=== PATIENT | female | born 1975 | race American Indian/Alaskan Native ===

== ENCOUNTER 2016-09-29 02:16 | Emergency (ER) | payer OTHER ==
[~2016-09-29] VITALS: Ht 175.3 cm; Wt 143.8 kg
[~2016-09-29 02:16] MED LIST: ABILIFY5 MG; ADVAIR 250-501 EACH IH; ALBUTEROL SULF8.5 GM INH; ALBUTEROL2.5 MG/3 M INH; ASPIRIN EC81 MG PO; ATIVAN1 MG PO; BACTRIM DS TAB1 EACH PO; CEFPODOXIME PR200 MG PO; CHLORDIAZEPOXID25 MG PO; CIPROFLOXACIN500 MG PO; CITALOPRAM HBR20 MG PO; CYCLOBENZAPRINE10 MG PO; D-20002000 UNIT PO; DIALYVITE V5000 UNIT PO; DIPHENHYDRAMINE25 M1 PO; DOCUSATE SODIU100 MG PO; DOXYCYCLINE HY100 MG PO; DULCOLAX STOOL100 MG PO; DULERA 200 MCG/13 GM IH; DULERA 200 MCG/13 GM INH; FERROUS SU220 MG/52; FLEXERIL10 MG PO; FLUTICASONE PRO16 GM NS; GLIPIZIDE XL5 MG PO; GLUCAGON HCL1 MG; HYDROCODON-ACE1 EA10 PO; HYDROXYZINE PAM25 MG PO; IBUPROFEN600 MG PO; IBUPROFEN800 MG PO; JANUVIA100 MG PO; KEFLEX500 MG PO; LANTUS100 UNITS/ SUB-Q; LEVAQUIN500 MG PO; LEVOFLOXACIN750 MG PO; LEVOTHYROXINE25 MCG PO; LIPITOR20 MG GT; LIPITOR20 MG PO; LISINOPRIL-HCT1 EACH PO; LISINOPRIL20 MG PO; MAPAP325 MG PO; MAPAP500 M1 PO; METHOCARBAMOL500 MG PO; NAPROXEN250 MG PO; NORCO 10-325 T1 EACH PO; NORCO 5-325 TA1 EACH PO; PEPCID20 MG PO; PERCOCET 5-3251 EACH PO; PERFOROMIS20 MCG/2 M INH; PREDNISONE20 MG PO; PRILOSEC20 MG PO; PRINIVIL10 MG PO; PROMETHAZINE-COD5 ML PO; PROTONIX40 MG PO; PROVENTIL HFA6.7 GM INH; RANITIDINE HCL150 M1 PO; RANITIDINE HCL150 MG PO; REGLAN10 MG PO; SINGULAIR10 MG PO; SUDOGEST30 MG PO; TRAMADOL HCL50 MG PO; TYLENOL325 MG PO; VITAMIN C500 MG PO; XANAX0.5 MG PO; ZOFRAN4 MG PO
[2016-09-29] MEDS ORDERED: ZOFRAN ODT4 MG PO (05:00)
[2016-09-29] MEDS ORDERED: PROTONIX40 MG PO (05:00)
== END 2016-09-29 05:43 | disposition home or self-care (01) ==
LOC: ED 02:16
DX: K29.21 Alcoholic gastritis with bleeding (principal); K64.4 Residual hemorrhoidal skin tags; I10 Essential (primary) hypertension; E11.9 Type 2 diabetes mellitus without complications; E78.5 Hyperlipidemia, unspecified; J45.909 Unspecified asthma, uncomplicated; J44.9 Chronic obstructive pulmonary disease, unspecified; Z90.49 Acquired absence of other specified parts of digestive tract; Z87.01 Personal history of pneumonia (recurrent); Z79.899 Other long term (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; Z79.4 Long term (current) use of insulin
CPT/HCPCS: 80053; 81001; 84703; 85025; 85610; 85730; 86850; 86900; 86901; 87077; 87088; 87186; 96365; 96375; 99283; G0480; J1630; J2405; J2550; J2765; J3411; J7030

== ENCOUNTER 2017-01-27 17:31 | Inpatient (IN) | payer OTHER ==
[~2017-01-27] VITALS: Ht 175.3 cm; Wt 143.8 kg
[~2017-01-27 17:31] MED LIST changes: +ZOFRAN ODT4 MG PO
--- NOTE | 2017-01-28 06:31 | HP ---
[facility] [address] [place], [place] [address] Signed ADMISSION DATE: 01/27/2017 REASON FOR ADMISSION: Pancreatitis. HISTORY: This morbidly obese (BMI 46.8) [place] woman, presented to the emergency room where she was somewhat evaluated by Dr. Chavis with complaints of anxiety, nausea and vomiting x4, and epigastric and right subcostal pain. She denied any shortness of breath or other similar symptoms. She had not been feeling well for the past week or so. In fact, she has not been feeling well for two months actually. She had been unable to eat much and had been vomiting 3 to 4 times a day in the past several weeks. 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 She came into the emergency room for headache as well as red eye related to vomiting. Her care was transferred to Dr. Corral and a gallbladder ultrasound had been performed, which showed possibly small gallstones, though limited ultrasound imaging was noted due to her extreme body habitus. She was clearly noted to have elevated amylase of 360 with a normal lipase. Her alkaline phosphatase was slightly elevated to 163, AST 16, ALT 26. Glucose was 119, CO2 of 17, creatinine 0.84. Urinalysis showed blood of 50 with 10 white cells per high-power field, negative rbc's, 2+ bacteria was noted. Her CBC showed a white count of 7.5, hematocrit 29.5, and platelets 84,000. Brief review of her medical record shows a long-standing history of alcoholism. Although she was initially recorded as drinking alcohol "occasionally," it turns out she drinks five 40-ounce beers a day. She is well known to have established chronic alcoholism. Additionally, prior admissions have included alcohol withdrawal syndrome, pneumonia, and imaging studies in the past, specifically abdominal and pelvis CT in February 2015 confirming cirrhotic liver, hypertrophy of left lateral segment of the liver and caudate lobe, splenomegaly and normal gallbladder and biliary tree. Though she was admitted as having "gallstone pancreatitis," it is far more likely she simply has alcohol-related pancreatitis in addition to her other medical problems. REVIEW OF SYSTEMS: She mostly complains of upper abdominal pain in her central abdomen. She no longer complaints of headache. She has no particular back pain at this time. She feels thirsty. PHYSICAL EXAMINATION: GENERAL: A very enormous Ang[place] woman, who is uncomfortable in appearance. Mucous membranes are slightly dry. She is alert and oriented without sign of delirium (yet). NECK: Shows no thyromegaly. Electronically Signed By: RAQUEL CARDENAS MD 01/28/17 0631 PATIENT NAME: KAMILAH IBARRA HISTORY AND PHYSICAL DATE OF : 75 PHYSICIAN: RAQUEL CARDENAS MD REPORT #: [id number] REPORT IS CONFIDENTIAL AND NOT TO BE RELEASED WITHOUT AUTHORIZATION [address] [address] Signed CHEST: Shows regular heart rate without murmur. Chest is relatively clear. ABDOMEN: Massively obese. There is mild central abdominal tenderness. There is no perceivable ascites, though limitation based on body habitus is acknowledged. EXTREMITIES: Show no clubbing, cyanosis, edema, or petechiae. LABORATORY DATA: Lab studies showed white count 7.5, hematocrit 29.5, platelets 84,000. Chem profile as previously noted, bicarb was 17, glucose 119, AST 60, ALT 26, alkaline phosphatase 163, bilirubin 1.2, amylase 361, lipase 62. ASSESSMENT: Although the patient was perceived as having gallstone pancreatitis, it is far more likely she has alcohol-related pancreatitis given her extreme alcohol intake and prior history. The possibility of gallstone pancreatitis remains however given the possibility of gallstones variably noted on the ultrasound. She is at increased risk of alcohol withdrawal syndrome based on her extreme alcohol use on a daily basis. She would be an unlikely candidate for cholecystectomy on the basis of her thrombocytopenia, cirrhotic liver, splenomegaly, and extreme morbid obesity. Nevertheless, she does need to be admitted to the hospital for fluid resuscitation and parenteral pain control and in this case as well alcohol withdrawal prophylaxis. I will consult the hospitalist for assistance in some of these measures as well. Note is made of her current medications, which include Tylenol, albuterol inhaler, iron supplementation, fluticasone spray, and insulin use; therefore, notably confirming additionally diabetes. MD AMBER Chandra/MONIQUEL /[id number] Electronically Signed By: RAQUEL CARDENAS MD 01/28/17 0631 PATIENT NAME: KAMILAH IBARRA HISTORY AND PHYSICAL DATE OF : 75 PHYSICIAN: RAQUEL CARDENAS MD REPORT #: [id number] REPORT IS CONFIDENTIAL AND NOT TO BE RELEASED WITHOUT AUTHORIZATION [place] [address] Signed cc: DO Julita Kumari PA Electronically Signed By: RAQUEL CARDENAS MD 01/28/17 0631 PATIENT NAME: KAMILAH IBARRA HISTORY AND PHYSICAL DATE OF : 75 PHYSICIAN: RAQUEL CARDENAS MD REPORT #: [id number] REPORT IS CONFIDENTIAL AND NOT TO BE RELEASED WITHOUT AUTHORIZATION
[2017-02-01] MEDS ORDERED: HYDROXYZINE PAM25 MG PO (09:55)
[2017-02-01] MEDS ORDERED: FAMOTIDINE20 MG PO (09:56)
[2017-02-01] MEDS ORDERED: LEVOFLOXACIN500 MG PO (10:00)
[2017-02-01] MEDS ORDERED: PRINIVIL10 MG PO (10:00)
--- NOTE | 2017-02-02 09:32 | DS ---
[facility] [address] [place], [place] [address] Signed ADMISSION DATE: 01/27/2017 DISCHARGE DATE: 02/01/2017 REASON FOR ADMISSION: This morbidly obese, BMI 46.8 Macanese woman presented to the emergency room with complaints of anxiety, nausea, and vomiting x4, epigastric and right subcostal pain. She denied any shortness of breath or other symptoms. She had been feeling unwell for the past week or so. She had not really been feeling perfectly well for at least two months. It was ultimately noted she has chronic alcoholism, drinking five 40-ounce beers a day. 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 She went to the emergency room because of headache as well as a red eye related to progressive vomiting. She was initially evaluated by Dr. Chavis to care, ultimately seen by Dr. Corral. A gallbladder ultrasound was performed following an evaluation showing slightly elevated alkaline phosphatase to 163, an AST of 16, ALT of 26 with an amylase of 360. A gallbladder ultrasound was performed, which was technically challenging on the basis of her obesity of greater than 300 pounds, but did not show stones, but possibly signs of sludge. There is no thickened gallbladder wall. She has chronic anemia and hematocrit was noted to be 29.5. A urinalysis did show findings suggestive of urinary tract infection, blood of 50 with white cells 10 per high-power field, 2+ bacteria. Her white count was 7.5, platelets 84,000. Review of her medical record shows long-standing history of alcoholism, prior history of admission for alcohol withdrawal syndrome, CT scan evidence of splenomegaly, and cirrhosis of the liver with likely portal hypertension and secondary thrombocytopenia. She was admitted for further evaluation and care on the basis of her pancreatitis, thought possibly related to biliary disease. PERTINENT PHYSICAL EXAMINATION: GENERAL: Enormous Macanese woman, uncomfortable in appearance. HEENT: Mucous membranes are slightly dry. She is alert and oriented without sign of delirium. NECK: Shows no thyromegaly. HEART: Regular without murmur. CHEST: Relatively clear. ABDOMEN: Massively obese. There is central abdominal tenderness. No perceivable ascites. Electronically Signed By: RAQUEL CARDENAS MD 02/02/17 0932 PATIENT NAME: KAMILAH IBARRA DISCHARGE SUMMARY DATE OF : 75 PHYSICIAN: RAQUEL CARDENAS MD REPORT #: [id number] REPORT IS CONFIDENTIAL AND NOT TO BE RELEASED WITHOUT AUTHORIZATION [facility] [address] [place], [place] [address] Signed EXTREMITIES: Show no clubbing, cyanosis, or edema. LABORATORY STUDIES: Once again showed a white count of 7.5, hematocrit 29.5, and platelets 84,000. Bicarb was 17, glucose 119, AST 6, ALT 26, alkaline phosphatase 163, bilirubin 1.2, amylase 361, and lipase 62. HOSPITAL COURSE: I agreed to admit her on the original provisional diagnosis of gallstone pancreatitis. At that time, it was not known to the emergency room physicians, who had evaluated her that she does have a long-standing chronic alcoholism, cirrhosis of the liver, splenomegaly, and the consideration for alcohol-related pancreatitis was therefore not made. Once recognized, hospitalist consult was undertaken in part to assist in diabetes management and recommendations for an alcohol withdrawal prophylaxis. The patient was troubled markedly by her headache and considerable amount of anxiety. She was treated with Ativan intravenously and given bowel rest, intravenous antibiotics, and IV fluid resuscitation. She had much improvement right away. 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 Her urinary evaluation did confirm E. coli urinary tract infection and she was ultimately converted to Levaquin antibiotic in treatment for that. Ativan was given for alcohol withdrawal prophylaxis and anxiety was tapered off as she was somewhat somnolent, but of course did not have alcohol withdrawal symptoms either. She was ultimately transitioned to hydroxyzine as an anxiolytic. It is considered likely by Dr. Perdomo that her drinking is a self-medication for her significant anxiety issues. Indeed, she has been evaluated at [facility] for this in the past. She was begun on a liquid diet and advanced to a low-fat solid diet once she was noted to have no clinical evidence of pancreatitis and liver enzymes and amylase returning to normal. Close review of her ultrasound did not confirm stones in any way and question of gallbladder sludge, though a potential cause of pancreatitis was considered unlikely. More likely, her pancreatitis was related to her severe and ongoing chronic alcohol use. By time of discharge, she is anticipating to return home with her sister, who lives in Electronically Signed By: RAQUEL CARDENAS MD 02/02/17 0932 PATIENT NAME: KAMILAH IBARRA DISCHARGE SUMMARY DATE OF : 75 PHYSICIAN: RAQUEL CARDENAS MD REPORT #: [id number] REPORT IS CONFIDENTIAL AND NOT TO BE RELEASED WITHOUT AUTHORIZATION [address] [address] Signed [place]. Her sister is four months into complete sobriety. She has investigated the possibility of inpatient alcohol with rehab program, which is available through the [facility]. I understand it is a 21-day program. She is planning to contact her primary provider, WILLIAM Gonzalez, [facility] to become enrolled in this. As regards to her diet, I have recommended a low-fat diet for the time being. She should absolutely have no alcohol. I do not expect a likelihood of alcohol withdrawal syndrome. She needs hydroxyzine to diminish her anxiety issues that lead to her drinking of alcohol. We are mindful of the high potential for benzodiazepine dependency if a benzodiazepine-based outpatient regimen were to be set up at this time. As regards to follow up, she will see Julita Cabral as described. I am available to her should the need arise, though I would not expect need for surgical intervention under the circumstances of her pancreatitis, which is more likely related to alcohol abuse than a biliary source after all. DISCHARGE DIAGNOSES: 1. Pancreatitis, probably alcohol related. 2. Chronic alcoholism (six 40-ounce beers daily). 3. Morbid obesity. 4. Documented cirrhosis of liver without ascites and associated splenomegaly with resultant thrombocytopenia. 5. Diabetes mellitus. 6. Concurrent urinary tract infection (undergoing treatment). 7. Uncontrolled anxiety disorder. MD AMBER Chandra/IESHA /[id number] Electronically Signed By: RAQUEL CARDENAS MD 02/02/17 0932 PATIENT NAME: KAMILAH IBARRA DISCHARGE SUMMARY DATE OF : 75 PHYSICIAN: RAQUEL CARDENAS MD REPORT #: [id number] REPORT IS CONFIDENTIAL AND NOT TO BE RELEASED WITHOUT AUTHORIZATION [facility] [address] [place] [id number] Signed cc: MD Julita Gillespie PA Lohith Veerappa Reddy, MD James Alan Morrow, Electronically Signed By: RAQUEL CARDENAS MD 02/02/17 0932 PATIENT NAME: KAMILAH IBARRA DISCHARGE SUMMARY DATE OF : 75 PHYSICIAN: RAQUEL CARDENAS MD REPORT #: [id number] REPORT IS CONFIDENTIAL AND NOT TO BE RELEASED WITHOUT AUTHORIZATION
== END 2017-02-01 12:05 | disposition home or self-care (01) | DRG 432 ==
LOC: ED 17:31 → MS 20:25 → ED 20:25 → MS 02-01 12:05
PROVIDERS: ADMIT Surgery
DX: K70.30 Alcoholic cirrhosis of liver without ascites (principal); K85.10 Biliary acute pancreatitis without necrosis or infection; F10.239 Alcohol dependence with withdrawal, unspecified; Z68.42 Body mass index [BMI] 45.0-49.9, adult; N39.0 Urinary tract infection, site not specified; K76.0 Fatty (change of) liver, not elsewhere classified; F41.8 Other specified anxiety disorders; E11.43 Type 2 diabetes mellitus with diabetic autonomic (poly)neuropathy; K31.84 Gastroparesis; Z79.4 Long term (current) use of insulin; J44.9 Chronic obstructive pulmonary disease, unspecified; I10 Essential (primary) hypertension; E66.01 Morbid (severe) obesity due to excess calories
CPT/HCPCS: 36415; 71020; 76705; 80053; 80076; 81001; 82150; 82247; 82465; 82977; 83615; 83690; 84100; 84478; 84550; 84703; 85025; 87077; 87088; 87186; 90662; 94640; 94762; 96361; 96374; 96375; 96376; 99285; G0008; G0480; J0690; J1170; J2060; J2405; J7030; J7120; Q0177

== ENCOUNTER 2017-02-07 19:25 | Emergency (ER) | payer OTHER ==
[~2017-02-07] VITALS: Ht 175.3 cm; Wt 143.8 kg
[~2017-02-07 19:25] MED LIST changes: +FAMOTIDINE20 MG PO; +LEVOFLOXACIN500 MG PO
[2017-02-07] MEDS ORDERED: ATIVAN1 MG PO (21:58)
[2017-02-07] MEDS ORDERED: OMEPRAZOLE20 MG PO (21:58)
[2017-02-07] MEDS ORDERED: ZOFRAN ODT4 MG PO (21:58)
== END 2017-02-07 22:28 | disposition home or self-care (01) ==
LOC: ED 19:25
DX: K29.20 Alcoholic gastritis without bleeding (principal); E11.9 Type 2 diabetes mellitus without complications; I10 Essential (primary) hypertension; E78.5 Hyperlipidemia, unspecified; J44.9 Chronic obstructive pulmonary disease, unspecified; Z87.01 Personal history of pneumonia (recurrent); Z90.89 Acquired absence of other organs; Z90.49 Acquired absence of other specified parts of digestive tract; Z79.899 Other long term (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; Z79.4 Long term (current) use of insulin; Y90.8 Blood alcohol level of 240 mg/100 ml or more
CPT/HCPCS: 80053; 81001; 82150; 83690; 85025; 94640; 96361; 96374; 96375; 99284; G0480; J2270; J2405; J7030

== ENCOUNTER 2017-02-18 15:12 | Emergency (ER) | payer OTHER ==
[~2017-02-18] VITALS: Ht 175.3 cm; Wt 143.8 kg
[~2017-02-18 15:12] MED LIST changes: +OMEPRAZOLE20 MG PO
[2017-02-18] MEDS ORDERED: ZOFRAN ODT4 MG PO (18:14)
== END 2017-02-18 18:29 | disposition home or self-care (01) ==
LOC: ED 15:12
DX: R10.84 Generalized abdominal pain (principal); G89.29 Other chronic pain; S20.211A Contusion of right front wall of thorax, initial encounter; E11.9 Type 2 diabetes mellitus without complications; I10 Essential (primary) hypertension; E78.5 Hyperlipidemia, unspecified; J44.9 Chronic obstructive pulmonary disease, unspecified; D64.9 Anemia, unspecified; Z87.01 Personal history of pneumonia (recurrent); Z90.49 Acquired absence of other specified parts of digestive tract; Z79.899 Other long term (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; Z79.4 Long term (current) use of insulin; W18.30XA Fall on same level, unspecified, initial encounter
CPT/HCPCS: 71020; 80053; 82150; 83690; 85025; 96374; 96375; 99283; G0480; J1885; J2405

== ENCOUNTER 2017-05-04 18:15 | Inpatient (IN) | payer OTHER ==
[~2017-05-04] VITALS: Ht 175.3 cm; Wt 137.3 kg
[~2017-05-04 18:15] MED LIST changes: -FERROUS SU220 MG/52; +FERROUS SU220 MG/52 PO
[2017-05-05] MEDS ORDERED: PANTOPRAZOLE SO40 MG PO (15:23)
[2017-05-05] MEDS ORDERED: VENTOLIN HFA18 GM INH (15:26)
[2017-05-05] MEDS ORDERED: FAMOTIDINE20 MG PO (15:33)
[2017-05-05] MEDS ORDERED: TIZANIDINE HCL4 MG PO (15:34)
--- NOTE | 2017-05-05 22:31 | EKG ---
[facility] [address] [facility] [place] [address] Signed Sinus tachycardia Anterior infarct (cited on or before 01-FEB-2016) Abnormal ECG When compared with ECG of 12-AUG-2016 00:08, No significant change was found Confirmed by ANTONIA METCALF MD ([id number]) on 05/05/2017 10:31:29 PM Electronically Signed By: ANTONIA METCALF MD 05/05/17 223 PATIENT NAME: KAMILAH IBARRA Electrocardiogram DATE OF : 75 PHYSICIAN: ANTONIA METCALF MD REPORT #: [id number] REPORT IS CONFIDENTIAL AND NOT TO BE RELEASED WITHOUT AUTHORIZATION
[2017-05-07] MEDS ORDERED: BACTRIM DS TAB1 EACH PO (13:12)
[2017-05-07] MEDS ORDERED: ONDANSETRON HCL4 MG PO (13:14)
[2017-05-07] MEDS ORDERED: OXYCODONE HCL5 MG PO ×2 (13:16→13:32)
== END 2017-05-07 15:00 | disposition home or self-care (01) | DRG 690 ==
LOC: ED 18:15 → MS 18:16
PROVIDERS: ADMIT Internal Medicine
DX: N10 Acute pyelonephritis (principal); B96.20 Unspecified Escherichia coli [E. coli] as the cause of diseases classified elsewhere; E87.6 Hypokalemia; I10 Essential (primary) hypertension; K70.30 Alcoholic cirrhosis of liver without ascites; D73.1 Hypersplenism; D64.9 Anemia, unspecified; D69.6 Thrombocytopenia, unspecified; F41.8 Other specified anxiety disorders; E11.9 Type 2 diabetes mellitus without complications; E78.5 Hyperlipidemia, unspecified; J44.9 Chronic obstructive pulmonary disease, unspecified; F10.20 Alcohol dependence, uncomplicated; Z79.84 Long term (current) use of oral hypoglycemic drugs; E66.01 Morbid (severe) obesity due to excess calories; G47.33 Obstructive sleep apnea (adult) (pediatric); Z91.19 Patient's noncompliance with other medical treatment and regimen
CPT/HCPCS: 36415; 71045; 74177; 80048; 80053; 81001; 83605; 83735; 84703; 85025; 87040; 87077; 87088; 87186; 87502; 93005; 93010; 94640; 94760; 96361; 96374; 96375; 96376; 99285; G0378; J0696; J2270; J2405; J2550; J3475; J7030; J7120; Q0177; Q9967

== ENCOUNTER 2017-05-29 15:41 | Emergency (ER) | payer OTHER ==
[~2017-05-29] VITALS: Ht 175.3 cm; Wt 136.1 kg
[~2017-05-29 15:41] MED LIST changes: +ONDANSETRON HCL4 MG PO; +OXYCODONE HCL5 MG PO; +PANTOPRAZOLE SO40 MG PO; +TIZANIDINE HCL4 MG PO; +VENTOLIN HFA18 GM INH
== END 2017-05-29 23:05 | disposition home or self-care (01) ==
LOC: ED 15:41
PROC: 0T9B70Z Drainage of Bladder with Drainage Device, Via Natural or Artificial Opening (ICD-10-PCS; principal; 2017-05-29)
DX: E86.0 Dehydration (principal); R10.9 Unspecified abdominal pain; F10.20 Alcohol dependence, uncomplicated; E11.9 Type 2 diabetes mellitus without complications; I10 Essential (primary) hypertension; J45.909 Unspecified asthma, uncomplicated; Z79.899 Other long term (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
CPT/HCPCS: 51701; 74177; 80053; 81001; 83605; 83690; 85025; 96374; 96375; 96376; 99284; J1200; J2060; J2270; J2405; J2765; J7030; Q9967

== ENCOUNTER 2017-11-28 05:02 | Emergency (ER) | payer OTHER ==
[~2017-11-28] VITALS: Ht 175.3 cm; Wt 139.2 kg
--- OUTSIDE RECORDS SUMMARY | ~2017-11-28 | XMS | Clinical Summary ---
Demographics + + + | Address | [address] | | | [place] [address] | + + + | Home Phone | | + + + | Preferred Language | Unknown | + + + | Marital Status | Single | + + + | Buddhism Affiliation | Unknown | + + + | Race | Unknown | + + + | Ethnic Group | Unknown | + + + Author + + + | Author | [facility] | | | and [place] | + + + | Organization | [facility] | | | and [place] | [...] Team Providers + +------+ + | Care Cake Former Name | Role | Phone | + +------+ + | Julita Cabrla PA-C | PP | | + +------+ [...] + + + | BMI 50.0-59.9, adult ([facility]) | 04/17/2015 | + + + | Nausea and vomiting | 04/16/2015 | + + + | Low hemoglobin | 04/16/2015 | + + + | Aspiration pneumonia ([facility]) | 04/16/2015 | + + [...] | [employer] | [employer] | [id number] | Medica | [phone] | | | [...] | | deo/Marcial | | 1975 | [phone] | [place] [address] | | | bryant | | | [phone] | | + +--------+ +--------+ + +
--- OUTSIDE RECORDS SUMMARY | ~2017-11-28 | XMS | Clinical Summary ---
Demographics + + + | Address | [address] | | | [place] [address] | + + + | Home Phone | | + + + | Preferred Language | Unknown | + + + | Marital Status | Single | + + + | Faith Affiliation | Unknown | + + + | Race | Unknown | + + + | Ethnic Group | Unknown | + + + Author + + + | Author | [facility] | | | and [place] | + + + | Organization | [facility] | | | and [place] | [...] Team Providers + +------+ + | Care Editor & Co Founder Name | Role | Phone | + [...] + + + | BMI 50.0-59.9, adult ([facility]) | 04/17/2015 | + + + | Nausea and vomiting | 04/16/2015 | + + + | Low hemoglobin | 04/16/2015 | + + + | Aspiration pneumonia ([facility]) | 04/16/2015 | + + + Family [...] | [employer] | [employer] | [id number] | Medica | [phone] | | | [...] | | deo/Marcial | | 1975 | [phone] | [place] [address] | | | bryant | | | [phone] | | + +--------+ +--------+ + +
[~2017-11-28 05:02] MED LIST changes: +AMOXICILLIN500 MG PO; +PAXIL20 MG PO
--- OUTSIDE RECORDS SUMMARY | 2017-11-28 05:06 | XMS ---
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 Care History Substance Use/Overdose 10/01/2016 [facility] ENCOURAGE PATIENT TO PURSUE ALCOHOL ABSTINENCE PROGRAM. Medical/Surgical 10/01/2016 [facility] HX: DIABETES, HTN, HYPERLIPIDEMIA, RECTAL BLEEDING, ASTHMA, COPD, PNEUMONIA, ANEMIA SURGICAL HX: TONSILS, COLONOSCOPY, CYST REMOVAL UNDER ARMJAS E.D. VISIT COUNT (12 MO.) 7 [facility] TOTAL 7 NOTE: Visits indicate total known visits. ED/UCC VISIT TRACKING (12 MO.) 11/28/2017 05:02 [facility] TYPE: Emergency COMPLAINT: - R EYE INJURY 10/09/2017 11:24 [facility] TYPE: Emergency COMPLAINT: - ABNORMAL LABS DIAGNOSES: - Other shelter (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 - Chronic sinusitis, unspecified - Iron deficiency anemia, unspecified - Unspecified asthma, uncomplicated - Hyperlipidemia, unspecified - Type 2 diabetes mellitus without complications - Essential (primary) hypertension - Anemia, unspecified 05/29/2017 15:41 [facility] TYPE: Emergency COMPLAINT: - FLU LIKE SYMPTOMS DIAGNOSES: - Other shelter (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 - Dehydration - Unspecified abdominal pain - Unspecified asthma, uncomplicated - Type 2 diabetes mellitus without complications - Alcohol dependence, uncomplicated - Essential (primary) hypertension 05/04/2017 18:15 [facility] TYPE: Emergency COMPLAINT: - FLU SYMPTOMS 02/18/2017 15:12 [facility] TYPE: Emergency COMPLAINT: - ABD PAIN DIAGNOSES: - 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 - Other chronic pain - Generalized abdominal pain - Contusion of right front wall of thorax, initial encounter - Fall on same level, unspecified, initial encounter - Anemia, unspecified - Personal history of pneumonia (recurrent) - Acquired absence of other specified parts of digestive tract - 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 - Hyperlipidemia, unspecified - Chronic obstructive pulmonary disease, unspecified - Essential (primary) hypertension - Type 2 diabetes mellitus without complications 02/07/2017 19:26 [facility] TYPE: Emergency COMPLAINT: - ABDOMINAL PAIN DIAGNOSES: - 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 - Essential (primary) hypertension - Acquired absence of other specified parts of digestive tract - Upper abdominal pain, unspecified - Chronic obstructive pulmonary disease, unspecified - Acquired absence of other organs - Blood alcohol level of 240 mg/100 ml or more - Personal history of pneumonia (recurrent) - group home (current) use of insulin - Alcoholic gastritis without bleeding - Hyperlipidemia, unspecified - Type 2 diabetes mellitus without complications 01/27/2017 17:31 [facility] TYPE: Emergency COMPLAINT: - NAUSEA,VOMITING INPATIENT VISIT TRACKING (12 MO.) No inpatient visits to display in this time frame [email or web address]
[2017-11-28] MEDS ORDERED: OMEPRAZOLE20 MG PO (05:39)
== END 2017-11-28 05:57 | disposition home or self-care (01) ==
LOC: ED 05:02
DX: D18.09 Hemangioma of other sites (principal); E11.9 Type 2 diabetes mellitus without complications; I10 Essential (primary) hypertension; Z79.899 Other long term (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
CPT/HCPCS: 99284

== ENCOUNTER 2017-12-02 11:41 | Emergency (ER) | payer OTHER ==
[~2017-12-02] VITALS: Ht 175.3 cm; Wt 139.2 kg
--- OUTSIDE RECORDS SUMMARY | ~2017-12-02 | XMS | Clinical Summary ---
Demographics + + + | Address | [address] | | | [place] [address] | + + + | Home Phone | | + + + | Preferred Language | Unknown | + + + | Marital Status | Single | + + + | Jewish Affiliation | Unknown | + + + | Race | Unknown | + + + | Ethnic Group | Unknown | + + + Author + + + | Author | [facility] | | | and [place] | + + + | Organization | [facility] | | | and [place] | + + + | Address | Unknown | + + + | Phone | Unavailable | + + + Support + + +---------+ + | Name | Relationship | Address | Phone | + + +---------+ + | Jinny Ibarra | ECON | Unknown | | + + +---------+ + | Sandra Oro | ECON | Unknown | | + + +---------+ + Care Team Providers + +------+ + | Care Advisory Services Associate Name | Role | Phone | + +------+ + | Julita Cabral PA-C | PP | | + +------+ + Allergies No Known Allergies Current Medications + + +-------+---------+------+------+-------+ | Prescription | Sig. | Disp. | Refills | Star | End | Statu | | | | | | t | Date | s | | | | | | Date | | | + + +-------+---------+------+------+-------+ | albuterol 90 | Inhale into the | | | | | Activ | | mcg/puff inhaler | lungs See Admin | | | | | e | | | Instructions. 1-2 | | | | | | | | puffs by mouth every | | | | | | | | 3 to 4 hours if | | | | | | | | needed for shortness | | | | | | | | of breath | | | | | | + + +-------+---------+------+------+-------+ | ALPRAZolam (XANAX) | Take 0.5 mg by mouth | | | | | Activ | | 0.5 mg tablet | 3 times daily as | | | | | e | | | needed for Anxiety | [...] | drowsiness*). | | | | | | + + +-------+---------+------+------+-------+ | cholecalciferol | Take 2,000 Units by | | | | | Activ | | (VITAMIN D-3) 2000 | mouth Daily. | | | | | e | | UNITS TABS | | | | | | | + + +-------+---------+------+------+-------+ | citalopram | Take 40 mg by mouth | | | | | Activ | | (CELEXA) 40 mg | Daily. | | | | | e | | tablet | | | | | | | + + +-------+---------+------+------+-------+ | docusate sodium | Take 100 mg by mouth | | | | | Activ | | (COLACE) 100 mg | nightly. Take 2 | | | | | e | | capsule | tablets nightly | | | | | | + + +-------+---------+------+------+-------+ | fluticasone | 2 sprays by Nasal | | | | | Activ | | (FLONASE) 50 | route Daily. | | | | | e | | mcg/nasal spray | | | | | | | + + +-------+---------+------+------+-------+ | | Inhale 2 puffs into | | | | | Activ | | mometasone-formotero | the lungs 2 times | | | | | e | | l (DULERA) 200-5 | daily. | | | | | | | mcg/puff inhaler | | | | | | | + + +-------+---------+------+------+-------+ | insulin glargine | Inject 10 Units | | | | | Activ | | (LANTUS SOLOSTAR) | under the skin | | | | | e | | 100 units/mL | nightly. Inject 10 | | | | | | | injection (pen) | units under the skin | | | | | | | | at bedtime | | | | | | + + +-------+---------+------+------+-------+ | hydrocortisone | Apply topically 2 | | | | | Activ | | 2.5% cream | times daily. Apply a | | | | | e | | | small amount to | | | | | | | | affected area as | | | | | | | | directed to anus | | | | | | | | twice daily | | | | | | + + +-------+---------+------+------+-------+ | naproxen | Take 250 mg by mouth | | | | | Activ | | (NAPROSYN) 250 mg | 2 times daily (with | | | | | e | | tablet | breakfast & | | | | | | | | dinner). | | | | | | + + +-------+---------+------+------+-------+ | ranitidine | Take 150 mg by mouth | | | | | Activ | | (ZANTAC) 150 mg | 2 times daily. | | | | | e | | tablet | | | | | | | + + +-------+---------+------+------+-------+ | rosuvastatin | Take 20 mg by mouth | | | | | Activ | | (CRESTOR) 20 mg | nightly. | | | | | e | | tablet | | | | | | | + + +-------+---------+------+------+-------+ | sitaGLIPtin | Take 100 mg by mouth | | | | | Activ | | (JANUVIA) 100 mg | Daily. | | | | | e | | tablet | | | | | | | + + +-------+---------+------+------+-------+ | | | | 0 | 10/2 | | Activ | | lisinopril-hydrochlo | | | | 1/20 | | e | | rothiazide | | | | 15 | | | | (PRINZIDE,ZESTORETIC | | | | | | | | ) 20-12.5 MG per | | | | | | | | tablet | | | | | | | + + +-------+---------+------+------+-------+ | levofloxacin | | | 0 | 10/2 | | Activ | | (LEVAQUIN) 500 mg | | | | 1/20 | | e | | tablet | | | | 15 | | | + + +-------+---------+------+------+-------+ | | | | 0 | 12/2 | | Activ | | HYDROcodone-acetamin | | | | 3/20 | | e | | ophen (NORCO) 10-325 | | | | 15 | | | | mg per tablet | | | | | | | + + +-------+---------+------+------+-------+ | IRON PO | Take by mouth 2 | | | | | Activ | | | times daily. | | | | | e | + + +-------+---------+------+------+-------+ Active Problems + + + | Problem | Noted Date | + + + | BMI 50.0-59.9, adult ([facility]) | 04/17/2015 | + + + | Nausea and vomiting | 04/16/2015 | + + + | Low hemoglobin | 04/16/2015 | + + + | Aspiration pneumonia ([facility]) | 04/16/2015 | + + + Family History + +------+ + + | Relation | Name | Status | Comments | + +------+ + + | Brother | | Alive | | + +------+ + + | Mother [...] | | | + +---+---+---+ + + + | Sex Assigned at | Date Recorded | | | | + + + | Not on file | | + + + Last Filed Vital Signs + + + + | Vital Sign | Reading | Time Taken | + + + + | Blood Pressure | 120/63 | 04/17/2015 1345 PST | + + + + | Pulse | 77 | 04/17/2015 1345 PST | + + + + | Temperature | 37.4 C (99.3 F) | 04/17/2015 1230 PST | + + + + | Respiratory Rate | 16 | 04/17/2015 1300 PST | + + + + | Oxygen Saturation | 95% | 04/17/2015 1345 PST | + + + + | Inhaled Oxygen | - | - | | Concentration | | | + + + + | Weight | 149.7 kg (330 lb) | 04/17/20151031 PST | + + + + | Height | 172.7 cm (5' 7.99") | 04/17/20151031 PST | + + + + | Body Mass Index | 50.19 | 04/17/20151031 PST | + + + + Plan of Treatment + + + + + | Health Maintenance | Due Date | Last Done | Comments | + + + + + | Vaccine: | | | | | Dtap/Tdap/Td (1 - | 5 | | | | Tdap) | | | | + + + + + | Cervical Cancer | | | | | Screening (Pap) | 6 | | | + + + + + | Vaccine: Influenza | | | | | (#1) | 8 | | | + + + + + Results Not on filefrom Last 3 Months Insurance + +--------+ +--------+ +---------+ | Payer | Benefi | Subscriber | Type | Phone | Address | | | t Plan | ID | | | | | | / | | | | | | | Group | | | | | + +--------+ +--------+ +---------+ | [employer] | MODA | [id number] | Medica | [phone] | | MEDICAID HMO | HEALTH | | id | [id number] | | | | MDCD | | | | | | | [place]MO [place] | | | | | + +--------+ +--------+ +---------+ | HEALTH | IHS | [phone] | Indemn | | | | SERVICE | YELLOW | | ity | | | | | HAWK | | | | | + +--------+ +--------+ +---------+ + +--------+ +--------+ + + | Guarantor Name | Accoun | Relation to | Date | Phone | Billing Address | | | t Type | Patient | of | | | | | | | | | | + +--------+ +--------+ + + | TINY IBARRA | Person | Self [birth year] Home: | [address] | | | deo/Marcial | | 1975 | [phone] | [place] [address] | | | bryant | | | [phone] | | + +--------+ +--------+ + +
--- OUTSIDE RECORDS SUMMARY | ~2017-12-02 | XMS | Clinical Summary ---
Demographics + + + | Address | [address] | | | [place] [address] | + + + | Home Phone | | + + + | Preferred Language | Unknown | + + + | Marital Status | Single | + + + | Lutheran Affiliation | Unknown | + + + | Race | Unknown | + + + | Ethnic Group | Unknown | + + + Author + + + | Author | [facility] | | | and [place] | + + + | Organization | [facility] | | | and [...] Team Providers + +------+ + | Care Gastroenterology Professor Name | Role | Phone | [...] + + + | BMI 50.0-59.9, adult ([facility]) | 04/17/2015 | + + + | Nausea and vomiting | 04/16/2015 | + + + | Low hemoglobin | 04/16/2015 | + + + | Aspiration pneumonia ([facility]) | 04/16/2015 | + + [...] | [employer] | MODA | [id number] | Medica | [phone] | | | [...] | | deo/Marcial | | 1975 | [phone] | [place] [address] | | | [place] | | | [phone] | | + +--------+ +--------+ + +
--- OUTSIDE RECORDS SUMMARY | 2017-12-02 11:46 | XMS ---
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 Care History Substance Use/Overdose 10/01/2016 [facility] ENCOURAGE PATIENT TO PURSUE ALCOHOL ABSTINENCE PROGRAM. Social 11/30/2017 [facility] PATIENT CONTACT NUMBER IS INVALID Medical/Surgical 10/01/2016 [facility] HX: DIABETES, HTN, HYPERLIPIDEMIA, RECTAL BLEEDING, ASTHMA, COPD, PNEUMONIA, ANEMIA SURGICAL HX: TONSILS, COLONOSCOPY, CYST REMOVAL UNDER JAS SCHMITT E.D. VISIT COUNT (12 MO.) 8 CHERI Alan TOTAL 8 NOTE: Visits indicate total known visits. ED/UCC VISIT TRACKING (12 MO.) 12/02/2017 11:41 [facility] TYPE: Emergency COMPLAINT: - ABD PAIN 11/28/2017 05:02 [facility] TYPE: Emergency COMPLAINT: - R EYE PAIN/NON INJURY DIAGNOSES: - Essential (primary) hypertension - Type 2 diabetes mellitus without complications - Hemangioma of other sites - Ocular pain, right eye - Other [place] [facility] (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 10/09/2017 11:24 [facility] TYPE: Emergency COMPLAINT: - ABNORMAL LABS DIAGNOSES: - Other [place] [facility] (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 - Chronic sinusitis, unspecified - Iron deficiency anemia, unspecified - Unspecified asthma, uncomplicated - Hyperlipidemia, unspecified - Type 2 diabetes mellitus without complications - Essential (primary) hypertension - Anemia, unspecified 05/29/2017 15:41 [facility] TYPE: Emergency COMPLAINT: - FLU LIKE SYMPTOMS DIAGNOSES: - Other [place] [facility] (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 - Dehydration - Unspecified abdominal pain - Unspecified asthma, uncomplicated - Type 2 diabetes mellitus without complications - Alcohol dependence, uncomplicated - Essential (primary) hypertension 05/04/2017 18:[address] 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 - Hyperlipidemia, unspecified - Chronic obstructive pulmonary disease, unspecified - Essential (primary) hypertension - Type 2 diabetes mellitus without complications 02/07/2017 19:26 [facility] TYPE: Emergency COMPLAINT: - ABDOMINAL PAIN DIAGNOSES: - Other medical 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 [place] TYPE: Emergency COMPLAINT: - NAUSEA,VOMITING INPATIENT VISIT TRACKING (12 MO.) No inpatient visits to display in this time frame [email or web address]
[2017-12-02] MEDS ORDERED: ATIVAN1 MG PO (14:01)
[2017-12-02] MEDS ORDERED: PANTOPRAZOLE SO40 MG PO (14:01)
[2017-12-02] MEDS ORDERED: ZOFRAN ODT4 MG PO (14:01)
== END 2017-12-02 15:16 | disposition home or self-care (01) ==
LOC: ED 11:41
PROC: 0T9B70Z Drainage of Bladder with Drainage Device, Via Natural or Artificial Opening (ICD-10-PCS; principal; 2017-12-02)
DX: K29.20 Alcoholic gastritis without bleeding (principal); K70.30 Alcoholic cirrhosis of liver without ascites; E11.9 Type 2 diabetes mellitus without complications; I10 Essential (primary) hypertension; E78.5 Hyperlipidemia, unspecified; J45.909 Unspecified asthma, uncomplicated; J44.9 Chronic obstructive pulmonary disease, unspecified; Z87.01 Personal history of pneumonia (recurrent); D64.9 Anemia, unspecified; Z79.899 Other long term (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
CPT/HCPCS: 51701; 80053; 81001; 83690; 84703; 85025; 96365; 96366; 96375; 99284; G0480; J1200; J2060; J2405; J2765; J3411; J7030

== ENCOUNTER 2018-03-15 13:04 | Observation (INO) | payer OTHER ==
[~2018-03-15] VITALS: Ht 175.3 cm; Wt 140.6 kg
--- NOTE | 2018-03-15 11:23 | NUR ---
SCHEDULED ZOSYN INFUSING, IV SITE WNL. CALL LIGHT IN REACH.
[~2018-03-15 13:04] MED LIST changes: +ACETAMINOPHEN325 M1 PO; +K-TAB ER20 MEQ PO; +NALTREXONE HCL50 MG PO; +PSEUDOEPHEDRINE60 MG PO; +VITAMIN C500 M4 PO; +ZYRTEC10 MG PO
--- OUTSIDE RECORDS SUMMARY | 2018-03-15 13:08 | XMS ---
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 Care History Medical/Surgical 12/03/2017 [facility] - PATIENT HAS AN APT TO SEE PCP ON 02/16/18 @ 1:30PM. PATIENT DID NOT SHOW UP TO APT ON 02/12/18. - PLEASE REFER PATIENT TO [facility]- PATIENT CAN BE SEEN SAME DAY IF PATIENT CALLS RIGHT AWAY IN THE MORNING. - PATIENT DOES NOT ACCEPT ANY HELP OR ASSISTANCE FROM THE [facility] AT [facility]. 10/01/2016 [facility] HX: DIABETES, HTN, HYPERLIPIDEMIA, RECTAL BLEEDING, ASTHMA, COPD, PNEUMONIA, ANEMIA SURGICAL HX: TONSILS, COLONOSCOPY, CYST REMOVAL UNDER ARM, APPY Social 11/30/2017 [facility] PATIENT CONTACT NUMBER IS INVALID Substance Use/Overdose 10/01/2016 [facility] ENCOURAGE PATIENT TO PURSUE ALCOHOL ABSTINENCE PROGRAM. [place] VISIT COUNT (12 MO.) 7 [facility] TOTAL 7 NOTE: Visits indicate total known visits. ED/UCC VISIT TRACKING (12 MO.) 03/15/2018 13:04 [facility] [place] TYPE: Emergency COMPLAINT: - ABD PAIN 02/15/2018 19:51 [facility] [place] TYPE: Emergency COMPLAINT: - COLD SYMPTOMS DIAGNOSES: - Chronic obstructive pulmonary disease, unspecified - Major depressive disorder, single episode, unspecified - Cough - Anemia, unspecified - Type 2 diabetes mellitus without complications - Personal history of pneumonia (recurrent) - Other custodial (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 12/02/2017 11:41 [facility] [place] TYPE: Emergency COMPLAINT: - ABD PAIN DIAGNOSES: - Unspecified abdominal pain - Unspecified asthma, uncomplicated - Personal history of pneumonia (recurrent) - Alcoholic cirrhosis of liver without ascites - Other custodial (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 - Anemia, unspecified - Essential (primary) hypertension - Alcoholic gastritis without bleeding - Type 2 diabetes mellitus without complications - Hyperlipidemia, unspecified - Chronic obstructive pulmonary disease, unspecified 11/28/2017 05:02 [facility] [place] TYPE: Emergency COMPLAINT: - R EYE PAIN/NON INJURY DIAGNOSES: - Essential (primary) hypertension - Type 2 diabetes mellitus without complications - Hemangioma of other sites - Ocular pain, right eye - Other custodial (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 10/09/2017 11:24 [facility] [place] TYPE: Emergency COMPLAINT: - ABNORMAL LABS DIAGNOSES: - 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 [place] TYPE: Emergency COMPLAINT: - FLU LIKE SYMPTOMS DIAGNOSES: - Other custodial (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 - Dehydration - Unspecified abdominal pain - Unspecified asthma, uncomplicated - Type 2 diabetes mellitus without complications - Alcohol dependence, uncomplicated - Essential (primary) hypertension 05/04/2017 18:15 [facility] [place] TYPE: Emergency COMPLAINT: - FLU SYMPTOMS INPATIENT VISIT TRACKING (12 MO.) 05/05/2017 09:08 [facility] [place] TYPE: Medical Surgical COMPLAINT: - UTI/VOMITING DIAGNOSES: - Anemia, unspecified - Patient's noncompliance with other medical treatment and regimen - Acute pyelonephritis - Essential (primary) hypertension - Type 2 diabetes mellitus without complications - Alcoholic cirrhosis of liver without ascites - Hypersplenism - Obstructive sleep apnea (adult) (pediatric) - Morbid (severe) obesity due to excess calories - Other specified anxiety disorders - FPC (current) use of oral hypoglycemic drugs - Hypokalemia - Alcohol dependence, uncomplicated - Thrombocytopenia, unspecified - Unspecified Escherichia coli [E. coli] as the cause of diseases classified elsewhere - Hyperlipidemia, unspecified - Chronic obstructive pulmonary disease, unspecified [email or web address]
[2018-03-15] MEDS ORDERED: FERROUS FUMARA324 MG PO (13:24)
--- NOTE | 2018-03-15 17:13 | NUR ---
PT ARRIVED TO UNIT VIA STRETCHER AT 1630. PT SBA TO RESTROOM. VOIDED WITHOUT DIFFICULTY. AMB BACK TO HOSPITAL BED. SCD'S ON. ASSESSMENT AND ADMISSION INTAKE COMPLETED. IV IN EACH AC, FLUSH WELL, DRESSING INTACT. PT ALERT AND ORIENTED. REPORTS 8/10 ABD PAIN "AROUND BELLY BUTTON" REPORTS "IT'S THE SAME PAIN I HAVE ALL THE TIME". REPORTS IT CHRONIC PAIN TO DR. IRAHETA. DENIES NAUSEA. TAKING SIPS OF WATER. CALL LIGHT WITHIN REACH. QUESTIONS ANSWERED CONSIDERING POC.
--- NOTE | 2018-03-15 18:30 | NUR ---
PATIENT IN BED WATCHING TV. CALL LIGHT IN REACH. WARM BLANKET GIVEN. NO FURTHER NEEDS AT THIS TIME.
--- NOTE | 2018-03-15 19:00 | NUR ---
SHIFT REPORT RECEIVED FROM DAY SHIFT RN AT BEDSIDE. ASSISTED DAY SHIFT RN CHRISTINE WITH BLOOD PRODUCT ADMINISTRATION VERIFICATION. PT DENIES NEEDS AT THIS TIME, CALL LIGHT IN REACH.
--- NOTE | 2018-03-15 19:22 | NUR ---
FIRST UNIT OF BLOOD STARTED AT 190. NO TRANSFUSION REACTION NOTED AT THIS TIME. PT REPORTING 10/10 ABD PAIN. MEDICATED WITH 0.5MG IV DILAUDID. CALL LIGHT WITHIN REACH.
--- NOTE | 2018-03-15 20:25 | NUR ---
ASSESSMENT COMPLETE. SCHEDULED MEDICATIONS GIVEN. PT A/O X3. BLOOD INFUSING, PT DENIES SYMPTOMS OF REACTION. VSS. IV MAINTAINENCE FLUIDS INFUSING PER MD ORDERS, SITE WNL. CALL LIGHT IN REACH.
--- NOTE | 2018-03-15 21:51 | NUR ---
FIRST UNIT OF RBC COMPLETE. NO SIGNS OF REACTION, VSS. PT DENIES DISCOMFORT. SECOND UNIT INFUSING AT THIS TIME. CALL LIGHT IN REACH.
--- NOTE | 2018-03-15 23:50 | NUR ---
SECOND UNIT OF RBC BLOOD INFUSING COMPLETE. VSS, PT DENIES DISCOMFORT AND STATED, "I FEEL BETTER". NO SIGNS OF REACTION NOTED. CALL LIGHT IN REACH.
--- NOTE | 2018-03-16 02:10 | NUR ---
MORNING ASSESSMENT COMPLETE. VSS. PT A/O X3, RATES PAIN 5/10 IN LOWER ADBOMEN. IV FLUIDS AND ANTIBIOTICS INFUSING PER MD ORDERS, SITE X2 WNL. SCD'S IN PLACE. PT DENIES ADDITIONAL NEEDS. CALL LIGHT IN REACH.
--- NOTE | 2018-03-16 03:13 | NUR ---
PT CALLED TO USE BATHROOM, COMPLAINED PAIN 7/10 RIGHT SIDE. ONCE BACK IN BED, MED WITH 0.5MG HYDROMORPHONE HCL. CALL LIGHT WITH REACH, IV FLUIDS INFUSING.
--- NOTE | 2018-03-16 04:33 | NUR ---
IV ANTIBIOTIC COMPLETE. IV SITE FLUSHED, SL. IV FLUIDS INFUSING IN OTHER IV SITE, SITE WNL. CALL LIGHT IN REACH.
--- NOTE | 2018-03-16 04:49 | NUR ---
PT RECEIVED 2 UNITS RBC, NO ADVERSE REACTION. PT A/O X3, PAIN CONTROLLED WITH IV PAIN MEDICATIONS. PT 1SA W/ AMBULATION TO BSC. PT NPO, BOWEL TONES ACTIVE, VOIDING QS URINE. IV FLUIDS INFUSING PER MD ORDERS, IV SITES X2 WNL. PT RECEIVING IV ANTIBIOTICS. PT WILL HAVE EITHER AN LAP APPY OR POSSIBLY AN OPEN APPENDECTOMY, SURGERY TO FOLLOW BY DR IRAHETA.
--- NOTE | 2018-03-16 05:26 | NUR ---
PT RECEIVED 2 UNITS PACKED RBC, NO ADVERSE REACTION. VSS. PT A/O X3, USES CALL LIGHT APPROPERIATELY. IV FLUIDS INFUSING PER MD ORDERS AND RECEIVING IV ANTIBIOTICS, IV SITES X2 WNL. PT NPO, SURGERY TO FOLLOW WITH DR IRAHETA FOR LAP OR POSSIBLY OPEN CHOLECYCTECTOMY. PT VOIDING QS URINE. NO NAUSEA THIS SHIFT. PAIN CONTROLLED WITH IV PRN PAIN MEDICATIONS.
--- NOTE | 2018-03-16 06:02 | NUR ---
assisted pt back to bed from bsc. sba. Vitals done. call light within reach.
--- NOTE | 2018-03-16 06:43 | CONS ---
[facility] [address] [place], [place] [address] Signed DATE OF CONSULTATION: 03/15/2018 CHIEF COMPLAINT: Right upper quadrant abdominal pain. HISTORY OF PRESENT ILLNESS: Tiny is a 42-year-old obese, diabetic female I have known for a number of years. She has also drank alcohol for many years, but finally quit in December of this year. She is known to have some mild cirrhosis of the liver without hepatosplenomegaly or portal hypertension. For the last 2 days, she has had increasing right upper quadrant abdominal pain, nausea, vomiting, and diarrhea. She is known to have cholelithiasis. She came to the emergency room for evaluation. In the emergency room, she seemed to be tender in the right upper quadrant with a normal white count. She has chronic anemia with a hemoglobin of 6.7, a mean cell volume of 70. She told me she barely eats because she has no appetite, but it does provide control for her diabetes. She said she has had blood transfusions in the past and it does not seem to do any good. She told me she is scheduled soon to see one of the liver doctors with regard to her liver and her anemia. In addition, her liver function tests were fine except the total bilirubin is up just a little at 1.5 and INR is 1.3. She was given some IV fluids and Zosyn and I was asked to admit her as a general surgeon on-call. PAST MEDICAL HISTORY: Cirrhosis of the liver, obesity, hemorrhoids, diet-controlled diabetes, depression, mild COPD, frequent urinary tract infections, hypertension, hyperlipidemia, intermittent rectal bleeding since 2014, asthma, pneumonia x3, chronic anemia, personal history of colonic polyps, and diverticulosis. PAST SURGICAL HISTORY: Tonsillectomy, colonoscopy x2, open appendectomy through a midline periumbilical incision in right axillary and right groin cystectomy. SOCIAL HISTORY: She does not smoke cigarettes, but she had been smoking marijuana for a number of years and quit in December of this year. She drank until December of this year as well. She is single. She said her boyfriend moved out. She has no children. She has an aunt, Sandra at #[phone], Miranda Cabral is her primary care provider. She prefers the [facility]. FAMILY HISTORY: Mother had diabetes and cirrhosis from drinking. She does not know her father. Maternal grandmother had presumed breast cancer with a history of a mastectomy. REVIEW OF SYSTEMS: Electronically Signed By: HÉCTOR IRAHETA MD 03/16/18 0643 PATIENT NAME: TINY IBARRA CONSULTATION DATE OF : 75 REPORT #: [id number] PHYSICIAN: HÉCTOR IRAHETA MD PCP: MIRANDA CABRAL REPORT IS CONFIDENTIAL AND NOT TO BE RELEASED WITHOUT AUTHORIZATION [address] [address] Signed She had 10 systems reviewed. She told me she has been checked and does not have viral hepatitis and was just checked for HIV six months ago, it was negative. ALLERGIES: None. MEDICATIONS: Hydroxyzine, lisinopril, Zofran, Protonix, fluticasone, Dulcolax, Dulera, albuterol, tizanidine, potassium chloride, naltrexone, Zyrtec, Tylenol, and iron. PHYSICAL EXAMINATION: VITAL SIGNS: Her blood pressure is 135/45, heart rate is 103, respiratory rate is 14, temperature is 98.8, and she is 100% on room air. She is 5 feet 9 inches at 143 kg (316 pounds). GENERAL: Tiny is a 42-year-old obese female, lying supine semi-recumbent in her hospital bed. Nurse is in the room. Tiny does not appear systemically ill or toxic. She is not jaundiced. LUNGS: Clear to auscultation bilaterally. HEART: Regular rate and rhythm without murmur. ABDOMEN: Obese, but soft with well-healed periumbilical midline incision. She seemed to be mildly tender in the right upper quadrant. LABORATORY DATA: Her white blood cell count is 7.8, hemoglobin 6.7, mean cell volume 70, neutrophils 38, and her platelet count is 145. Sodium is 130, BUN 9, creatinine 1.1, and glucose 104. Her urinalysis is unremarkable. INR is 1.3, AST 29, ALT 17, total bilirubin 1.5, PTT 40, alkaline phosphatase 131, albumin is 2.9, and lipase 24. RADIOGRAPHIC STUDIES: An ultrasound of the gallbladder done today shows what looks like a fatty liver with slightly irregular gallbladder wall at 3.5 cm with several small stones, mobile stones with a positive Frank sign and unremarkable common bile duct. I reviewed a CAT scan from May 2017 and also a CAT scan from April 2017 which shows some nodularity to the liver with the calcified gallstones. No evidence of any hepatosplenomegaly. Interestingly, they thought there was some irregularity of the left ventricle of heart, but she denies ever having any heart attack or never had a previous cardiac workup. She had a chest x-ray in February of this year as well as September of this year and both were unremarkable. ASSESSMENT AND PLAN: Tiny is a 42-year-old obese, diet-controlled diabetic, who presents with chronic cholecystitis and cholelithiasis, cirrhosis of the liver, and hyponatremia. She seemed to be more symptomatic now and she knows she has had gallstones for several years. At this point, we are going to admit her, give her IV fluids, antibiotics, and have our Electronically Signed By: HÉCTOR IRAHETA MD 03/16/18 0643 PATIENT NAME: TINY IBARRA CONSULTATION DATE OF : 75 REPORT #: [id number] PHYSICIAN: HÉCTOR IRAHETA MD PCP: MIRANDA CABRAL REPORT IS CONFIDENTIAL AND NOT TO BE RELEASED WITHOUT AUTHORIZATION [facility] [address] [place], [place] [address] Signed Internal Medicine Service see her. We will plan on giving her a couple units of blood tonight with anticipation of going to Surgery tomorrow for laparoscopic possible open cholecystectomy. We have reviewed the above findings. We reviewed the location of function of the gallbladder. We have reviewed laparoscopic versus open cholecystectomy along with needle biopsy of the liver. We have also reviewed the expected intraop and postop course. She understands there is risk including, but not limited to bleeding, infection, scarring, change in contour of the skin, damage to bowel, damage to main bile duct, incisional hernias, and other unforeseen comorbidities. She has expressed understanding would like to proceed. Héctor Iraheta MD ALB/MODL /[id number] cc: Miranda Cabral, Physician Collision Repairer Héctor Iraheta MD Copies: HÉCTOR IRAHETA MD ~ Electronically Signed By: HÉCTOR IRAHETA MD 03/16/18 0643 PATIENT NAME: TINY IBARRA CONSULTATION DATE OF : 75 REPORT #: [id number] PHYSICIAN: HÉCTOR IRAHETA MD PCP: MIRANDA CABRAL REPORT IS CONFIDENTIAL AND NOT TO BE RELEASED WITHOUT AUTHORIZATION
--- NOTE | 2018-03-16 07:37 | NUR ---
BEDSIDE SHIFT REPORT RECEIVED FROM PATEL PILLAI. WHITE BOARD UPDATED. PATIENT SLEEPING ON AND OFF. MEDICATED WITH DILAUDID AT 0630 FOR ABDOMINAL PAIN. POTASSIUM AND MAGNESIUM LOW TODAY. RECEIVED 2 UNITS PRBCs YESTERDAY. D5LR INFUSING AT 75. ZOSYN INFUSING NOW ALSO.
--- NOTE | 2018-03-16 07:50 | NUR ---
PT HAS HX OF DM, NO SCHEDULED ACCU CHECKS AT THIS TIME. WHEN ASKED, PT STATED IF PT CHECKS BS AT HOME, PT SHOOK HEAD AND SAID "NO". ROAD HOGGER OPERATOR AGRICULTURAL INSPECTOR MADE AWARE. ASSIGNED DAY SHIFT RN AND DAY SHIFT AGRICULTURAL INSPECTOR ALSO MADE AWARE. DAY SHIFT AGRICULTURAL INSPECTOR CONRADO TO ADDRESS IN MORNING MEETING WITH HOSPITALIST.
--- NOTE | 2018-03-16 07:54 | EKG ---
[facility] [address] [facility] [place] [address] Signed Sinus rhythm with frequent premature ventricular complexes Low voltage QRS Cannot rule out Anterior infarct (cited on or before 01-FEB-2016) Abnormal ECG When compared with ECG of 04-MAY-2017 19:43, premature ventricular complexes are now present Serial changes of Anterior infarct present Confirmed by TRENT DEVINE MD ([id number]) on 03/16/2018 7:54:17 AM Electronically Signed By: TRENT DEVINE MD 03/16/18 0754 PATIENT NAME: KAMILAH IBARRA Electrocardiogram DATE OF : 75 PHYSICIAN: TRENT DEVINE MD REPORT #: [id number] REPORT IS CONFIDENTIAL AND NOT TO BE RELEASED WITHOUT AUTHORIZATION
--- NOTE | 2018-03-16 09:01 | NUR ---
PATIENT LYING ON RIGHT SIDE SLEEPING UPON ENTERING ROOM. AWAKENS TO VOICE. SLEEPY. DR IRAHETA IN TO SEE PATIENT. GIVING REPLACEMENT POTASSIUM AND MAGNESIUM TODAY. STOPPED D5LR TO USE THAT IV TO GIVE RIDERS. LR WITH STRAIGHT TUBING READY FOR PATIENT. UP TO BATHROOM NOW. NPO AT THIS TIME.
--- NOTE | 2018-03-16 09:27 | NUR ---
PATIENT IN BED WATCHING TV. CALL LIGHT IN REACH. NO FURTHER NEEDS AT THIS TIME.
--- NOTE | 2018-03-16 13:20 | NUR ---
pt sitting up on edge of bed visiting with friend/family member. pain better controlled after dilaudid iv.
--- NOTE | 2018-03-16 13:42 | NUR ---
PATIENT SITTING UP ON EDGE OF BED TALKING TO FAMILY. FRESH WATER GIVEN. CALL LIGHT IN REACH. NO FURTHER NEEDS AT THIS TIME.
--- NOTE | 2018-03-16 14:30 | NUR ---
NELA PILLAI GETTING PATIENT IN SHOWER NOW. SALINE LOCKED. WILL ADMINISTER ZOSYN WHEN OUT.
--- NOTE | 2018-03-16 15:23 | NUR ---
PAITENT UP TO SHOWER CHAIR AND BACK TO CHAIR 1 PERSON ASSIST. PATIENT MOSTLY INDEPENDENT IN SHOWER. NEW GOWN PROVIDED. LINENS CHANGED. CALL LIGHT IN REACH. NO FURTHER NEEDS AT THIS TIME.
--- NOTE | 2018-03-16 17:28 | NUR ---
DID NOT HAVE SURGERY TODAY D/T LOW POTASSIUM, MAGNESIUM, AND LOW HGB/HCT. 40MEQ K RIDER AND 2GM MAG RIDER GIVEN TODAY. LR INFUSING AT 75. ACCU CHECKS ACHS. NO SLIDING SCALE. ZOSYN. DILAUDID 0.5MG GIVEN X2. 1 TAB NORCO TRIED AT 1520. ZOFRAN X1 AT 1540. ADA DIET. UNLIKELY GOING TO GO TO SURGERY. OTHER PLANS INVOLVED. SCDs. I/S.
--- NOTE | 2018-03-16 18:35 | NUR ---
PT EATING DINNER NOW. HAS NOT BEEN UP TO VOID SINCE HER SHOWER. TOLERATING ADA DIET WELL.
--- NOTE | 2018-03-16 19:10 | NUR ---
SHIFT REPORT RECEIVED. PATIENT RESTING IN BED WATCHING TV. DENIES ANY NEEDS AT THIS TIME. IV ABX INFUSING PER ORDER. CALL LIGHT IN ORDER.
--- NOTE | 2018-03-16 21:00 | NUR ---
MEDS GIVEN PER ORDER. PATIENT REPORTS 8/10 PAIN. 2 TAB NORCO GIVEN PER ORDER. PATIENT REPORTS THE PAIN CRAMPING. NO INSULIN NEEDED AT THIS TIME, BLOOD SUGAR WNL. NO NAUSEA. LUNGS ARE CLEAR, DIMINSIHED IN BASES. ENCOURAGE COUGH AND DEEP BREATHING. PATIENT REPORTS ITCHING, WHICH IS NORMAL FOR HER AT NIGHT. SHE REGULARLY TAKES BENADRYL AT HOME. PATIENT ALSO HAS SOME ANXIETY AND REGULARLY TAKES HER VISARIL AT HOME, WHICH SHE IS REQUESTING NOW. INTERVENTIONAL SALE CONSULTANT WILL CONTACT DR. IRAHETA FOR PRN BENADRYL. PATIENT DENIES ANY FURTHER NEEDS. IV FLUIDS INFUSING PER ORDER, SITE WNL. CALL LIGHT IN REACH.
--- NOTE | 2018-03-16 21:59 | NUR ---
PT ITCHING, COMPLAINS OF ANXIETY. MEDICATED WITH VISTARIL AND BENADRYL. FRESH WATER PROVIDED, CALL LIGHT WITHIN REACH.
--- NOTE | 2018-03-16 22:05 | NUR ---
PATIENT RESTING IN BED PLAYING A GAME ON HER PHONE. REPORTS THAT HER ITCHING HAS IMPROVED AND SHE FEELS RESTFUL. PAIN MINIMAL. DENIES ANY NEEDS. CALL LIGHT IN REACH.
--- NOTE | 2018-03-16 23:15 | NUR ---
IV ABX ADMINISTERED PER ORDERS. IV SITE WNL. PATIENT REPORTS ADEQUATE PAIN CONTROL AT THIS TIME AND MINIMAL ITCHING. PATIENT REQUEST JELL-O, TWO CUPS OF SUGAR FREE JELL-O PROVIDED. NO OTHER NEEDS AT THIS TIME. CALL LIGHT IN REACH.
--- NOTE | 2018-03-17 01:21 | NUR ---
PATIENT CALLED TO REQUEST PRN PAIN MEDS FOR ABD PAIN 08/23. PRN NORCO 2 TABS PROVIDED PER ORDERS. PATIENT REPOSITIONED HERSELF. DENIES FURTHER NEEDS.
--- NOTE | 2018-03-17 03:41 | NUR ---
PATIENT APPEARS TO BE SLEEPING SOUNDLY, RR 18. CALL LIGHT IN REACH.
--- NOTE | 2018-03-17 04:16 | NUR ---
PATIENT APPEARS TO BE SLEEPING. HOB ELEVATED. RR 18. IV FLUIDS PER ORDER. CALL LIGHT IN REACH.
--- NOTE | 2018-03-17 05:35 | NUR ---
PATIENT'S VS DONE. PATIENT REPORT 6/10 PAIN, 2 TAB NORCO PROVIDED. PATIENT UP TO THE BATHROOM, SBA. RETURNED TO BED, SITTING UP AT EDGE FOR NOW. CALL LIGHT IN REACH. JUICE AND CRACKERS PROVIDED PER REQUEST.
--- NOTE | 2018-03-17 05:37 | NUR ---
PATIENT SLEPT ON AND OFF THROUGHOUT THE NIGHT. PRN NORCO 2 TABS GIVEN X3 FOR ADEQUATE PAIN RELIEF. NO NAUSEA. BLOOD SUGARS WNL. URINE OUTPUT QS, DARK EUGENIA IN COLOR. IV FLUIDS PER ORDER, PATIENT TOLERATING ADEQUATE INTAKE WELL. SCHEDULED IV ABX. PATIENT AMBULATES SBA. REMIND PATIENT TO COMMUNICATE PAIN NEEDS PRIOR TO SEVERE PAIN. PRN ANXIETY MEDS.
--- NOTE | 2018-03-17 08:43 | NUR ---
PATIENT WAS AWAKE , PATIENT DOSE HER OWN CARES , BREAKFAST DONE, PATIENT COMPLAINED OF THE STOMACH HURTING RN NOTIFIED. VITALS TAKEN. CALL LIGHT IN REACH.
--- NOTE | 2018-03-17 11:03 | NUR ---
TALKED TO DR IRAHETA ABOUT THE PATIENTS DISCHARGE AND HE REACHED OUT TO [facility] [place]. THEY BOTH SAID NO TO ACCEPTING HER A PATIENT AFTER DISCHARGE. HE ASKED FOR IMAGES TO BE PUSHED TO [facility], GOT THAT DONE AND NOW WE ARE WAITING FOR [facility] TO CONTACT DR IRAHETA AFTER THEY REVIEW THE IMAGES.
--- NOTE | 2018-03-17 11:07 | NUR ---
patient standby assist up to the bathroom to void, i and o updated.
--- NOTE | 2018-03-17 11:23 | NUR ---
blood sugar 92 no insulin required
--- NOTE | 2018-03-17 13:50 | NUR ---
RECIEVED A PHONE CALL THIS AFTERNOON FROM [facility] NURSEING STATING THE PT WAS CALLING THEM DESPIRATE FOR TRANSPORTATION TO [facility]. WE HAD UNDERSTOOD THIS AM THAT THE PT WAS REPORTEDLY GOING TO [facility] IN [place]. HOWEVER IT WAS REPORTED THAT THEY WOULD NOT TAKE HER AND THAT WE NOW HAVE 2 BEDS FOR PT TO GO TO . ONE AT [facility] AND THE OTHER AT [facility]. AND THAT THE PT COULD GO BY PRIVATE CAR. NURSES REPORTING THE PT IS STILL ON IV FLUIDS, NOT EATING AND HAVING ALOT OF IV PAIN MEDS. I CALLED DR IRAHETA AND ASKED HIM WHAT HE IS REALLY WANTING FOR THIS PT AND EXPLAINED THE NURSING CONCERNS, AND HE SAID WE COULD TRANSPORT HER BY NON EMERGENT TRANSPORT THEY CAN'T BE GIVING HER IV FLUIDS AND IV NARCOTICS BY PRIVATE CAR. DR IRAHETA AGREED TO COME IN AND FILL OUT PAPERWORK AND WE DISCUSSED THIS WITH THE PT AND [facility] NURSES WITH PT PERMISSION. DR IRAHETA IN AND FILLED PAPERWORK OUT.
--- NOTE | 2018-03-17 14:01 | NUR ---
patient up to the side of the bed, she is attempting to find a ride to [facility] for follow up treatment, bed confirmation called to us from both [facility] and [facility]. patient pain starting to come back, 2 norco given po at this time
--- NOTE | 2018-03-17 14:15 | NUR ---
PT SITTING ON SIDE OF BED, JUST WAKING UP. SEEMED HAPPY TO SEE ME, WELCOMED ME IN. GOOD VISIT, PT MENTIONED THAT SHE IS BEING TRANSFERRED TO [facility], BUT HAVING TROUBLE WITH TRANSPORTATION. REQUESTED PRAYER, ALSO GAVE PT A PRAYER SHAWL. WILL FOLLOW NEEDED
--- NOTE | 2018-03-17 15:58 | NUR ---
patient left at this time via ambulance for [facility],
--- NOTE | 2018-03-17 16:08 | NUR ---
REPORT CALLED TO ETHAN AT [facility] FOR TRANSFER
--- NOTE | 2018-03-18 08:00 | DS ---
[facility] [address], [place] [address] Signed ADMISSION DATE: 03/15/2018 DISCHARGE DATE: 03/17/2018 FINAL DIAGNOSES: 1. Acute on chronic cholecystitis, cholelithiasis. 2. Cirrhosis of the liver. 3. Alcohol abuse. 4. Obesity. 5. Diet-controlled diabetes. 6. Chronic anemia. PROCEDURES: Ultrasound of gallbladder. HISTORY OF PRESENT ILLNESS: Liv is a 42-year-old obese, diabetic female, I have known for a number of years. She also suffers with chronic anemia. She told me she quit drinking about December of this year. I suspect she has been noncompliant with her iron replacement. She has had at least one blood transfusion in the past because of the anemia. She said it did not do much. She told me her mother of alcoholic cirrhosis of the liver. Liv herself is starting to show signs of cirrhosis of the liver and so she quit drinking a few months ago. She is also known to have obesity with full face and sleep apnea, but she cannot tolerate the CPAP mask. She has hypertension, diverticulosis, a personal history of colonic polyps, depression, anxiety, and possibly COPD as well as some chronic EKG changes without any knowledge of having a prior heart attack. She also had a CT scan in May of this year as well as April of this year and shows some nodularity to liver with some gallstones but the spleen is not particularly enlarged and there is no evidence any portal hypertension or varices. There was some irregularity possibly to the left ventricle, but the patient denies any prior heart attack. She had a chest x-ray earlier this month and one in September, both were unremarkable. She had come in our emergency room with right upper quadrant abdominal pain, nausea, vomiting for a few days. She seemed to be tender in the right upper quadrant, but also throughout the abdomen. She has always had multiple abdominal complaints and also has a component of diabetic gastroparesis. I was asked to admit her as a general surgeon on-call. HOSPITAL COURSE: Liv was admitted as above and started on Zosyn. Her hemoglobin was 6.7. We gave her 2 units of blood. She went up to 8.1 with a mean cell volume of 70. INR was 1.3. Her AST 29, ALT 17, total bilirubin was 1.5 and it went up to 3.8 after the blood transfusion and today it is heading down to 2.4, ammonia level was high at 93 but she does not show any encephalopathy. No obvious ascites and her albumin is 2.9. We had a Electronically Signed By: HÉCTOR IRAHETA MD 03/18/18 0800 PATIENT NAME: KAMILAH IBARRA DISCHARGE SUMMARY DATE OF : 75 REPORT #: [id number] PHYSICIAN: HÉCTOR IRAHETA MD PCP: MIRANDA VILLATORO REPORT IS CONFIDENTIAL AND NOT TO BE RELEASED WITHOUT AUTHORIZATION [address] [address] Signed long discussion with her anesthesia provider and both of our hospitalists, and everyone was concerned about her medical issues and thought it would be best to have her more medically evaluated if in fact she needed surgery and if that is not able to be done as an outpatient, maybe she would be better served at a larger hospital where she has the specialists available to her such as a carpenter cradle and dolly because she has complained of some chest pain and tightness here in the hospital along with possibly certified caregiver, voip technician, surgeon, and even a hospitalist. I have reviewed all this with Liv in detail. She overall has good insight and understands that she would be better served at a larger hospital. DISCHARGE PLANS AND MEDICATIONS: Liv will be discharged without any new prescriptions. We are making efforts to see if one of our [facility] will be able to accept her today by private vehicle. In the meantime, we are going to replace some magnesium and phosphorus for her IV. We will hold off any surgery at this point. Of course, I am available in [place] if she needs some local followup afterwards. She has expressed understanding and agrees above plan. Héctor Iraheta MD ALB/MODL /[id number] cc: WILLIAM Ingram MD Copies: MIRANDA VILLATORO ANDREW L MD ~ Electronically Signed By: HÉCTOR IRAHETA MD 03/18/18 0800 PATIENT NAME: KMAILAH IBARRA DISCHARGE SUMMARY DATE OF : 75 REPORT #: [id number] PHYSICIAN: HÉCTOR IRAHETA MD PCP: MIRANDA VILLATORO REPORT IS CONFIDENTIAL AND NOT TO BE RELEASED WITHOUT AUTHORIZATION
== END 2018-03-17 16:12 | disposition short-term general hospital (02) ==
LOC: ED 13:04 → MS 13:05
PROVIDERS: ADMIT Colon & Rectal Surgery
DX: K80.12 Calculus of gallbladder with acute and chronic cholecystitis without obstruction (principal); E87.1 Hypo-osmolality and hyponatremia; D64.9 Anemia, unspecified; E13.43 Other specified diabetes mellitus with diabetic autonomic (poly)neuropathy; K31.84 Gastroparesis; K70.30 Alcoholic cirrhosis of liver without ascites; F10.10 Alcohol abuse, uncomplicated; E66.9 Obesity, unspecified; F32.9 Major depressive disorder, single episode, unspecified; J44.9 Chronic obstructive pulmonary disease, unspecified; I10 Essential (primary) hypertension; E78.5 Hyperlipidemia, unspecified; F41.9 Anxiety disorder, unspecified; G47.33 Obstructive sleep apnea (adult) (pediatric); E87.6 Hypokalemia; E83.42 Hypomagnesemia; E83.39 Other disorders of phosphorus metabolism; R07.9 Chest pain, unspecified; K92.2 Gastrointestinal hemorrhage, unspecified; Z87.891 Personal history of nicotine dependence; Z79.899 Other long term (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; Z68.42 Body mass index [BMI] 45.0-49.9, adult; Z79.51 Long term (current) use of inhaled steroids
CPT/HCPCS: 36415; 36430; 76705; 80053; 81001; 82140; 83036; 83690; 83735; 84100; 84703; 85025; 85610; 85730; 86850; 86900; 86901; 86920; 93005; 93010; 96361; 96372; 96374; 96375; 96376; 99285-25; C9113; G0378; J1170; J1644; J2405; J2543; J3475; J3480; J7060; J7120; P9016; Q0177

== ENCOUNTER 2018-04-13 18:02 | Emergency (ER) | payer OTHER ==
[~2018-04-13] VITALS: Ht 175.3 cm; Wt 151.5 kg
[~2018-04-13 18:02] MED LIST changes: +FERROUS FUMARA324 MG PO
--- OUTSIDE RECORDS SUMMARY | 2018-04-13 18:04 | XMS ---
PreManage Notification: KAMILAH IBARRA Security Furnace Unloader Events No recent Security Events currently on file CRITERIA MET - Group Notification - [facility] - Has Care Guidelines - [facility] - 2 Visits in 30 Days CARE PROVIDERS MIRANAD ALTMAN Physician Painter And Body Mechanic Apprentice: Surgical 10/13/2017-Current PHONE: Unknown MIRANDA MCMANUS Primary Care 05/14/2016-Current PHONE: [phone] Guidelines Source: [facility] Guidelines Date: 06/24/2017 Care Recommendation: ENCOURAGE PATIENT TO CONNECT WITH [facility] NURSE AT . Care History Social 11/30/2017 [facility] PATIENT CONTACT NUMBER IS INVALID Medical/Surgical 12/03/2017 [facility] - PATIENT HAS AN APT TO SEE PCP ON 02/16/18 @ 1:30PM. PATIENT DID NOT SHOW UP TO APT ON 02/12/18. - PLEASE REFER PATIENT TO [facility]- PATIENT CAN BE SEEN SAME DAY IF PATIENT CALLS RIGHT AWAY IN THE MORNING. - PATIENT DOES NOT ACCEPT ANY HELP OR ASSISTANCE FROM THE [facility]. 10/01/2016 [facility] HX: DIABETES, HTN, HYPERLIPIDEMIA, RECTAL BLEEDING, ASTHMA, COPD, PNEUMONIA, ANEMIA SURGICAL HX: TONSILS, COLONOSCOPY, CYST REMOVAL UNDER ARMJAS Substance Use/Overdose 10/01/2016 [facility] ENCOURAGE PATIENT TO PURSUE ALCOHOL ABSTINENCE PROGRAM. [place] VISIT COUNT (12 MO.) 8 [facility] TOTAL 8 NOTE: Visits indicate total known visits. ED/UCC VISIT TRACKING (12 MO.) [facility] COMPLAINT: - ABD PAIN 03/15/2018 13:04 [facility] TYPE: Emergency COMPLAINT: - ABD PAIN 02/15/2018 19:51 [facility] TYPE: Emergency COMPLAINT: - COLD SYMPTOMS DIAGNOSES: - Chronic obstructive pulmonary disease, unspecified - Major depressive disorder, single episode, unspecified - Cough - Anemia, unspecified - Type 2 diabetes mellitus without complications - Personal history of pneumonia (recurrent) - Other terminal makeup operator (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 12/02/2017 11:41 [facility] [place] TYPE: Emergency COMPLAINT: - ABD PAIN DIAGNOSES: - Unspecified abdominal pain - Unspecified asthma, uncomplicated - Personal history of pneumonia (recurrent) - Alcoholic cirrhosis of liver without ascites - Other shelter (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 - Anemia, unspecified - [...] - Ocular pain, right eye - Other terminal makeup operator (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 10/09/2017 11:24 [facility] [...] - FLU LIKE SYMPTOMS DIAGNOSES: - Other terminal makeup operator (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 - Dehydration - Unspecified abdominal pain - Unspecified asthma, uncomplicated - Type 2 diabetes mellitus without complications - Alcohol dependence, uncomplicated - Essential (primary) hypertension 05/04/2017 18:15 [facility] TYPE: Emergency COMPLAINT: - FLU SYMPTOMS INPATIENT VISIT TRACKING (12 MO.) [facility]17[facility]2018 [facility] DIAGNOSES: - Alcoholic cirrhosis of liver with ascites - Mild intermittent asthma, uncomplicated - Chronic systolic (congestive) heart failure - Hypomagnesemia - Atherosclerotic heart disease of [place] coronary artery without angina pectoris - Alcoholic cirrhosis of liver without ascites - Alcohol abuse, uncomplicated - Iron deficiency anemia secondary to blood loss (chronic) - Acute cholecystitis - Cardiac murmur, unspecified - Type 2 diabetes mellitus without complications - Unspecified abdominal pain - Acute cholecystitis - Cirrhosis - Hypokalemia - Gastro-esophageal reflux disease without esophagitis 03/15/2018 13:05 [facility] [place] TYPE: Medical Surgical COMPLAINT: - CHOLECYSTITIS DIAGNOSES: - Other shelter (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 - Upper abdominal pain, unspecified - Personal history of nicotine dependence - Anemia, unspecified - Alcoholic cirrhosis of liver without ascites - detention (current) use of inhaled steroids - Obstructive sleep apnea (adult) (pediatric) - Chest pain, unspecified - Major depressive disorder, single episode, unspecified - Body mass index (BMI) 45.0-49.9, adult - Gastroparesis - Obesity, unspecified - Other disorders of phosphorus metabolism - Other specified diabetes mellitus with diabetic autonomic (poly)neuropathy - Hypokalemia - Anxiety disorder, unspecified - Alcohol abuse, uncomplicated - Chronic obstructive pulmonary disease, unspecified - Essential (primary) hypertension - Hypo-osmolality and hyponatremia - Calculus of gallbladder with acute and chronic cholecystitis without obstruction - Hypomagnesemia - Gastrointestinal hemorrhage, unspecified - Hyperlipidemia, unspecified 05/05/2017 09:08 [facility] [place] TYPE: Medical [...] calories - Other specified anxiety disorders - detention (current) use of oral hypoglycemic drugs - Hypokalemia - Alcohol dependence, uncomplicated - Thrombocytopenia, unspecified - Unspecified Escherichia coli [E. coli] as the cause of diseases classified elsewhere - Hyperlipidemia, unspecified - Chronic obstructive pulmonary disease, unspecified [email or web address]
[2018-04-13] MEDS ORDERED: TORSEMIDE100 MG PO (21:30)
[2018-04-13] MEDS ORDERED: LACTULOSE10 GM/152 PO (21:31)
[2018-04-13] MEDS ORDERED: METOPROLOL SUC100 MG PO (21:31)
== END 2018-04-13 21:59 | disposition home or self-care (01) ==
LOC: ED 18:02
DX: K74.60 Unspecified cirrhosis of liver (principal); R60.0 Localized edema; E11.9 Type 2 diabetes mellitus without complications; F32.9 Major depressive disorder, single episode, unspecified; J44.9 Chronic obstructive pulmonary disease, unspecified; I10 Essential (primary) hypertension; E78.5 Hyperlipidemia, unspecified; D64.9 Anemia, unspecified; Z79.899 Other long term (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
CPT/HCPCS: 80053; 81001; 83690; 85025; 85610; 96374; 96375; 99284-25; J1170; J2405

== ENCOUNTER 2018-04-16 10:31 | Emergency (ER) | payer OTHER ==
[~2018-04-16] VITALS: Ht 175.3 cm; Wt 151.5 kg
[~2018-04-16 10:31] MED LIST changes: +LACTULOSE10 GM/152 PO; +METOPROLOL SUC100 MG PO; +TORSEMIDE100 MG PO
--- OUTSIDE RECORDS SUMMARY | 2018-04-16 10:34 | XMS ---
PreManage Notification: KAMILAH IBARRA Security [facility] Worker Events No recent Security Events currently on file CRITERIA MET - Group Notification - 6 ED Visits in 6 Months - [facility] - Has Care Guidelines - [facility] - 2 Visits in 30 Days CARE PROVIDERS MIRANDA ALTMAN Physician Shoveler: Surgical 10/13/2017-Current PHONE: Unknown MIRANDA MCMANUS Primary Care 05/14/2016-Current PHONE: [phone] Guidelines Source: [facility] Guidelines Date: 06/24/2017 Care Recommendation: ENCOURAGE PATIENT TO CONNECT WITH [facility] NURSE AT [phone] . Care History Substance Use/Overdose 10/01/2016 [facility] ENCOURAGE PATIENT TO PURSUE ALCOHOL ABSTINENCE PROGRAM. Medical/Surgical 04/14/2018 [facility] - PATIENT PCP HAS REFERRED PATIENT TO A INSTALLATION SUPERVISOR DR FLORES IN [place], [place]. - PATIENT HAS AN APT WITH INSTALLATION SUPERVISOR ON 04/28/18. - DR FLORES CONTACT INFO: [phone] 12/03/2017 [facility] - PATIENT HAS AN APT TO SEE PCP ON 02/16/18 @ 1:30PM. PATIENT DID NOT SHOW UP TO APT ON 02/12/18. - PLEASE REFER PATIENT TO [facility]- PATIENT CAN BE SEEN SAME DAY IF PATIENT CALLS RIGHT AWAY IN THE MORNING. - PATIENT DOES NOT ACCEPT ANY HELP OR ASSISTANCE FROM THE [facility]. 10/01/2016 [facility] HX: DIABETES, HTN, HYPERLIPIDEMIA, RECTAL BLEEDING, ASTHMA, COPD, PNEUMONIA, ANEMIA SURGICAL HX: TONSILS, COLONOSCOPY, CYST REMOVAL UNDER ARM, APPY Social 11/30/2017 [facility] PATIENT CONTACT NUMBER IS INVALID E.D. VISIT COUNT (12 MO.) 9 [facility] H. TOTAL 9 NOTE: Visits indicate total known visits. ED/UCC VISIT TRACKING (12 MO.) 04/16/2018 10:32 [facility] TYPE: Emergency COMPLAINT: - ABD PAIN 04/13/2018 18:03 [facility] TYPE: Emergency COMPLAINT: - ABD PAIN DIAGNOSES: - Anemia, unspecified - Upper abdominal pain, unspecified - Hyperlipidemia, unspecified - Localized edema - Unspecified cirrhosis of liver - Essential (primary) hypertension - Chronic obstructive pulmonary disease, unspecified - Major depressive disorder, single episode, unspecified - Other [facility] (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 - Type 2 diabetes mellitus without complications 03/15/2018 13:04 [facility] TYPE: Emergency COMPLAINT: - ABD PAIN 02/15/2018 19:51 [facility] TYPE: Emergency COMPLAINT: - COLD SYMPTOMS DIAGNOSES: - Chronic obstructive pulmonary disease, unspecified - Major depressive disorder, single episode, unspecified - Cough - Anemia, unspecified - Type 2 diabetes mellitus without complications - Personal history of pneumonia (recurrent) - Other [facility] (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 12/02/2017 11:41 [facility] TYPE: Emergency COMPLAINT: - ABD PAIN DIAGNOSES: - Unspecified abdominal pain - Unspecified asthma, uncomplicated - Personal history of pneumonia (recurrent) - Alcoholic cirrhosis of liver without ascites - Other channeling machine runner (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 - Anemia, unspecified - [...] - Ocular pain, right eye - Other channeling machine runner (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 10/09/2017 11:24 [facility] TYPE: Emergency COMPLAINT: - ABNORMAL LABS DIAGNOSES: - Other channeling machine runner (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 - Chronic sinusitis, unspecified - Iron deficiency anemia, unspecified - Unspecified asthma, uncomplicated - Hyperlipidemia, unspecified - Type 2 diabetes mellitus without complications - Essential (primary) hypertension - Anemia, unspecified 05/29/2017 15:41 [facility] TYPE: Emergency COMPLAINT: - FLU LIKE SYMPTOMS DIAGNOSES: - Other channeling machine runner (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 - Dehydration - Unspecified abdominal pain - Unspecified asthma, uncomplicated - Type 2 diabetes mellitus without complications - Alcohol dependence, uncomplicated - Essential (primary) hypertension 05/04/2017 18:15 [facility] TYPE: Emergency COMPLAINT: - FLU SYMPTOMS INPATIENT VISIT TRACKING (12 MO.) 03/17/2018 19:18 [facility] [place] TYPE: Surgical Services DIAGNOSES: - Alcoholic cirrhosis of liver with ascites - Mild intermittent asthma, uncomplicated - Chronic systolic (congestive) heart failure - Hypomagnesemia - Atherosclerotic heart disease of [place] coronary artery without angina pectoris - Alcoholic [...] Surgical COMPLAINT: - CHOLECYSTITIS DIAGNOSES: - Other channeling machine runner (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 - Upper abdominal pain, unspecified - Personal history of nicotine dependence - Anemia, unspecified - Alcoholic cirrhosis of liver without ascites - wildlife and game protector (current) use of inhaled steroids - Obstructive [...] calories - Other specified anxiety disorders - prison (current) use of oral hypoglycemic drugs - Hypokalemia - Alcohol dependence, uncomplicated - Thrombocytopenia, unspecified - Unspecified Escherichia coli [E. coli] as the cause of diseases classified elsewhere - Hyperlipidemia, unspecified - Chronic obstructive pulmonary disease, unspecified [email or web address]
[2018-04-16] MEDS ORDERED: CIPRO500 MG PO (13:34)
[2018-04-16] MEDS ORDERED: OXYCODONE HCL5 MG PO (13:34)
[2018-04-16] MEDS ORDERED: FLAGYL500 MG PO (13:34)
== END 2018-04-16 14:08 | disposition home or self-care (01) ==
LOC: ED 10:31
DX: K74.60 Unspecified cirrhosis of liver (principal); K80.80 Other cholelithiasis without obstruction; E11.9 Type 2 diabetes mellitus without complications; F32.9 Major depressive disorder, single episode, unspecified; J44.9 Chronic obstructive pulmonary disease, unspecified; I10 Essential (primary) hypertension; E78.5 Hyperlipidemia, unspecified; D64.9 Anemia, unspecified; Z79.899 Other long term (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
CPT/HCPCS: 76705; 80053; 83690; 85025; 96374; 99284-25; J1170

== ENCOUNTER 2018-04-21 17:31 | Emergency (ER) | payer OTHER ==
[~2018-04-21] VITALS: Ht 175.3 cm; Wt 151.5 kg
[~2018-04-21 17:31] MED LIST changes: +CIPRO500 MG PO; +FLAGYL500 MG PO
--- OUTSIDE RECORDS SUMMARY | 2018-04-21 17:34 | XMS ---
PreManage Notification: KAMILAH IBARRA Security Extension Specialist Events No recent Security Events currently on file CRITERIA MET - Group Notification - 6 ED Visits in 6 Months - [facility] - Has Care Guidelines - [facility] - 2 Visits in 30 Days CARE PROVIDERS MIRANDA ALTMAN Physician Ship Construction Teacher: Surgical 10/13/2017-Current PHONE: Unknown MIRANDA MCMANUS Primary Care 05/14/2016-Current PHONE: [phone] Guidelines Source: [facility] Guidelines Date: 06/24/2017 Care Recommendation: ENCOURAGE PATIENT TO CONNECT WITH [facility] NURSE AT [phone] . Care History Substance Use/Overdose 10/01/2016 [facility] ENCOURAGE PATIENT TO PURSUE ALCOHOL ABSTINENCE PROGRAM. Social 11/30/2017 [facility] PATIENT CONTACT NUMBER IS INVALID Medical/Surgical 04/14/2018 [facility] - PATIENT PCP HAS REFERRED PATIENT TO A CAUL PULLER DR FLORES IN [place], [place]. - PATIENT HAS AN APT WITH CAUL PULLER ON 04/28/18. - DR FLORES CONTACT INFO: [phone] 12/03/2017 [facility] - PATIENT HAS AN APT TO SEE PCP ON 02/16/18 @ 1:30PM. PATIENT DID NOT SHOW UP TO APT ON 02/12/18. - PLEASE REFER PATIENT TO [facility]- PATIENT CAN BE SEEN SAME DAY IF PATIENT CALLS RIGHT AWAY IN THE MORNING. - PATIENT DOES NOT ACCEPT ANY HELP OR ASSISTANCE FROM THE [facility]. 10/01/2016 [facility] HX: DIABETES, HTN, HYPERLIPIDEMIA, RECTAL BLEEDING, ASTHMA, COPD, PNEUMONIA, ANEMIA SURGICAL HX: TONSILS, COLONOSCOPY, CYST REMOVAL UNDER JAS SCHMITT E.D. VISIT COUNT ([address] 10 [facility]. TOTAL 10 NOTE: Visits indicate total known visits. ED/UCC VISIT TRACKING (12 MO.) 04/21/2018 17:32 [facility] [place] TYPE: Emergency COMPLAINT: - CHEST PAIN/SOB 04/16/2018 10:32 [facility] [place] TYPE: Emergency COMPLAINT: - ABD PAIN DIAGNOSES: - Other cholelithiasis without obstruction - Other long-term (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 - Chronic obstructive pulmonary disease, unspecified - Unspecified cirrhosis of liver - Essential (primary) hypertension - Anemia, unspecified - Type 2 diabetes mellitus without complications - Hyperlipidemia, unspecified - Unspecified abdominal pain - Major depressive disorder, single episode, unspecified 04/13/2018 18:03 [facility] [place] TYPE: Emergency COMPLAINT: - ABD PAIN DIAGNOSES: - Anemia, unspecified - Upper abdominal pain, unspecified - Hyperlipidemia, unspecified - Localized edema - Unspecified cirrhosis of liver - Essential (primary) hypertension - Chronic obstructive pulmonary disease, unspecified - Major depressive disorder, single episode, unspecified - 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 [place] TYPE: Emergency COMPLAINT: - FLU SYMPTOMS INPATIENT VISIT TRACKING (12 MO.) 03/17/2018 19:18 [facility] [place] TYPE: Surgical Services DIAGNOSES: - Alcoholic cirrhosis of liver with ascites - Mild intermittent asthma, uncomplicated - Chronic systolic (congestive) heart failure - Hypomagnesemia - Atherosclerotic heart disease of [place] coronary artery without angina pectoris - Alcoholic [...] Surgical COMPLAINT: - CHOLECYSTITIS DIAGNOSES: - Other long-term (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 - Upper abdominal pain, unspecified - Personal history of nicotine dependence - Anemia, unspecified - Alcoholic cirrhosis of liver without ascites - FPC (current) use of inhaled steroids - Obstructive [...] unspecified - Chronic obstructive pulmonary disease, unspecified [email or web address]
[2018-04-21] MEDS ORDERED: PERCOCET 7.5-31 EACH PO (19:30)
--- NOTE | 2018-04-22 00:34 | EKG ---
[facility] [address] [place] [address] Signed Normal sinus rhythm Low voltage QRS Septal infarct (cited on or before 01-FEB-2016) Abnormal ECG When compared with ECG of 15-MAR-2018 18:07, premature ventricular complexes are no longer present Questionable change in initial forces of Anteroseptal leads QT has shortened Confirmed by ANTONIA METCALF MD ([id number]) on 04/22/2018 12:34:46 AM Electronically Signed By: ANTONIA METCALF MD 04/22/18 0034 PATIENT NAME: KAMILAH IABRRA Electrocardiogram DATE OF : 75 PHYSICIAN: ANTONIA METCALF MD REPORT #: [id number] REPORT IS CONFIDENTIAL AND NOT TO BE RELEASED WITHOUT AUTHORIZATION
== END 2018-04-21 19:55 | disposition home or self-care (01) ==
LOC: ED 17:31
PROC: 4A0D7LZ Measurement of Urinary Volume, Via Natural or Artificial Opening (ICD-10-PCS; principal; 2018-04-21)
DX: K74.60 Unspecified cirrhosis of liver (principal); K80.20 Calculus of gallbladder without cholecystitis without obstruction; E11.9 Type 2 diabetes mellitus without complications; F32.9 Major depressive disorder, single episode, unspecified; I10 Essential (primary) hypertension; E78.5 Hyperlipidemia, unspecified; J44.9 Chronic obstructive pulmonary disease, unspecified; D64.9 Anemia, unspecified; Z79.899 Other long term (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
CPT/HCPCS: 51798; 80053; 82150; 83690; 84484; 85025; 93005; 93010; 99284-25; J1170; J2405; J7120

== ENCOUNTER 2018-11-01 22:32 | Emergency (ER) | payer OTHER ==
[~2018-11-01] VITALS: Ht 175.3 cm; Wt 132.0 kg
[~2018-11-01 22:32] MED LIST changes: +PERCOCET 7.5-31 EACH PO; +ULTRAM50 MG PO; +ZOFRAN4 MG SL
--- OUTSIDE RECORDS SUMMARY | 2018-11-01 22:34 | XMS ---
PreManage Notification: KAMILAH IBARRA Security County Health Officer Events No recent Security Events currently on file CRITERIA MET - Group Notification - [facility] - Has Care Guidelines - PDMP CARE PROVIDERS MIRANDA ALTMAN Physician Newsroom Intern: Surgical 10/13/2017-Current PHONE: Unknown SHIVA CASTELLON Nurse Practitioner 09/27/2018-Current PHONE: [phone] MIRANDA MCMANUS Primary Care 05/14/2016-Current PHONE: [phone] Guidelines Source: [facility] Guidelines Date: 06/24/2017 Care Recommendation: ENCOURAGE PATIENT TO CONNECT WITH THE [facility] NURSE AT . Care History Social 11/30/2017 [facility] PATIENT CONTACT NUMBER IS INVALID Medical/Surgical 09/30/2018 [facility] - PLEASE CONTACT XIN- RADIO REPAIRER AT [facility]- IF PATIENT CONSENTS- - XIN CONTACT NUMBER IS [phone]. 04/14/2018 [facility] - PATIENT PCP HAS REFERRED PATIENT TO A HOME LIGHTING ADVISER DR FLORES IN [place], [place]. - PATIENT HAS AN APT WITH HOME LIGHTING ADVISER ON 04/28/18. - DR FLORES CONTACT INFO: [phone] 12/03/2017 [facility] - PATIENT HAS AN APT TO SEE PCP ON 02/16/18 @ 1:30PM. PATIENT DID NOT SHOW UP TO APT ON 02/12/18. - PLEASE REFER PATIENT TO [facility]- PATIENT CAN BE SEEN SAME DAY IF PATIENT CALLS RIGHT AWAY IN THE MORNING. - PATIENT DOES NOT ACCEPT ANY HELP OR ASSISTANCE FROM THE [facility]. Substance Use/Overdose 10/01/2016 [facility] ENCOURAGE PATIENT TO PURSUE ALCOHOL ABSTINENCE PROGRAM. E.D. VISIT COUNT (12 MO.) [address] [facility]. TOTAL 12 NOTE: Visits indicate total known visits. 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 - Essential (primary) hypertension - Urinary tract infection, site not specified - Unspecified asthma, uncomplicated - Personal history of pneumonia (recurrent) - Unspecified abdominal pain - Acquired absence of other specified parts of digestive tract - Type 2 diabetes mellitus without complications 09/26/2018 21:45 [facility] TYPE: Emergency COMPLAINT: - ABD PAIN DIAGNOSES: - Acquired absence of other specified parts of digestive tract - Alcohol abuse, uncomplicated - Personal history of pneumonia (recurrent) - Essential (primary) hypertension - 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 - Unspecified abdominal pain - Urinary tract infection, site not specified - Chronic obstructive pulmonary disease, unspecified - Type 2 diabetes mellitus without complications 08/22/2018 10:20 [facility] TYPE: Emergency COMPLAINT: - NAUSEA/DIZZY/L ARM PAIN/INJURY DIAGNOSES: - Type 2 diabetes mellitus without complications - Personal history of urinary (tract) infections - Unspecified fall, initial encounter - Hyperlipidemia, unspecified - Personal history of pneumonia (recurrent) - Dehydration - Anemia, unspecified - 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 - Alcoholic gastritis without bleeding - Essential (primary) hypertension - Contusion of left elbow, initial encounter - Chronic obstructive pulmonary disease, unspecified - Nausea with vomiting, unspecified - Unspecified asthma, uncomplicated 04/23/2018 11:35 [facility] TYPE: Emergency DIAGNOSES: - Other chronic pain - Epigastric pain - Edema, unspecified - Hepatic failure, unspecified without coma - Abdominal Pain - Generalized edema - Fluid overload, unspecified - Acute systolic (congestive) heart failure - abd pain,nausea,bloating 04/21/2018 17:32 [facility] TYPE: Emergency COMPLAINT: - CHEST PAIN/SOB DIAGNOSES: - Essential (primary) hypertension - Major depressive disorder, single episode, unspecified - Chronic obstructive pulmonary disease, unspecified - Calculus of gallbladder without cholecystitis without obstruction - Other half-way (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 - Unspecified cirrhosis of liver - Unspecified abdominal pain - Hyperlipidemia, unspecified - Type 2 diabetes mellitus without complications - Anemia, unspecified 04/16/2018 10:32 [facility] [place] TYPE: Emergency COMPLAINT: - ABD PAIN DIAGNOSES: - Other cholelithiasis without obstruction - Other half-way (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 - Chronic obstructive pulmonary [...] depressive disorder, single episode, unspecified - Other half-way (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 - Type 2 diabetes [...] Personal history of pneumonia (recurrent) - Other half-way (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 12/02/2017 11:41 [facility] TYPE: Emergency COMPLAINT: - ABD PAIN DIAGNOSES: - Unspecified abdominal pain - Unspecified asthma, uncomplicated - Personal history of pneumonia (recurrent) - Alcoholic cirrhosis of liver without ascites - Other half-way (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 - Anemia, unspecified - Essential (primary) hypertension - Alcoholic gastritis without bleeding - Type 2 diabetes mellitus without complications - Hyperlipidemia, unspecified - Chronic obstructive pulmonary disease, unspecified 11/28/2017:02 [facility] [place] [facility] [place] [place] [place] COMPLAINT: - R EYE PAIN/NON INJURY DIAGNOSES: - Essential (primary) hypertension - Type 2 diabetes mellitus without complications - Hemangioma of other sites - Ocular pain, right eye - 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 INPATIENT VISIT TRACKING (12 MO.) 04/[facility]/2018 [facility] DIAGNOSES: - Alcoholic cirrhosis of liver without ascites - Fluid overload, unspecified - Acute systolic (congestive) heart failure - Epigastric pain - Anemia, unspecified - Morbid (severe) obesity due to excess calories - Generalized abdominal pain - Edema, unspecified - Dizziness and giddiness - Acute kidney failure, unspecified - Acute on chronic systolic (congestive) heart failure - Generalized edema - Chest pain, unspecified - Atherosclerotic heart disease of [place] coronary artery without angina pectoris - Thrombocytopenia, unspecified - Other chronic pain - Hepatic failure, unspecified without coma 03/17/2018 19:18 [facility] Services DIAGNOSES: - Alcoholic cirrhosis of liver with ascites - Mild intermittent asthma, uncomplicated - Chronic systolic (congestive) heart failure - Hypomagnesemia - Atherosclerotic heart disease of [place] coronary artery without angina pectoris - Alcoholic cirrhosis of liver without ascites - Alcohol abuse, uncomplicated - Iron deficiency anemia secondary to blood loss (chronic) - Acute cholecystitis - Cardiac murmur, unspecified - Type 2 diabetes mellitus without complications - Unspecified abdominal pain - Acute cholecystitis - Cirrhosis - Hypokalemia - Gastro-esophageal reflux disease without esophagitis 03/15/2018 13:05 [facility] [place] TYPE: Observation COMPLAINT: - CHOLECYSTITIS DIAGNOSES: - Other half-way (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 - Upper abdominal pain, unspecified - Personal history of nicotine dependence - Anemia, unspecified - Alcoholic cirrhosis of liver without ascites - exterminator helper (current) 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
[2018-11-01] MEDS ORDERED: NALTREXONE HCL50 MG PO (23:06)
[2018-11-01] MEDS ORDERED: ASCORBIC ACID500 M3 PO (23:07)
[2018-11-01] MEDS ORDERED: REGLAN10 MG PO (23:08)
[2018-11-01] MEDS ORDERED: MAGNESIUM400 M1 PO (23:08)
[2018-11-01] MEDS ORDERED: POTASSIUM CHLO20 ME2 PO (23:09)
[2018-11-01] MEDS ORDERED: CHLORDIAZEPOXID25 MG PO (23:10)
[2018-11-01] MEDS ORDERED: PANTOPRAZOLE SO40 MG PO (23:11)
[2018-11-01] MEDS ORDERED: SPIRONOLACTONE25 MG PO (23:12)
[2018-11-01] MEDS ORDERED: BUPROPION HCL75 MG PO (23:12)
[2018-11-01] MEDS ORDERED: TYLENOL325 MG PO (23:13)
== END 2018-11-02 01:13 | disposition home or self-care (01) ==
LOC: ED 22:32
PROC: 0T2BX0Z Change Drainage Device in Bladder, External Approach (ICD-10-PCS; principal; 2018-11-01)
DX: K70.30 Alcoholic cirrhosis of liver without ascites (principal); F10.129 Alcohol abuse with intoxication, unspecified; R33.9 Retention of urine, unspecified; R10.11 Right upper quadrant pain; G89.29 Other chronic pain; I10 Essential (primary) hypertension; E11.9 Type 2 diabetes mellitus without complications; F32.9 Major depressive disorder, single episode, unspecified; E78.5 Hyperlipidemia, unspecified; Z87.01 Personal history of pneumonia (recurrent); Z79.899 Other long term (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
CPT/HCPCS: 51702; 80053; 80176; 81001; 82140; 84703; 85025; 99284-25; G0480

== ENCOUNTER 2018-11-03 12:36 | Emergency (ER) | payer OTHER ==
[~2018-11-03] VITALS: Ht 175.3 cm; Wt 132.0 kg
[~2018-11-03 12:36] MED LIST changes: +ASCORBIC ACID500 M3 PO; +BUPROPION HCL75 MG PO; +MAGNESIUM400 M1 PO; +POTASSIUM CHLO20 ME2 PO; +SPIRONOLACTONE25 MG PO
--- OUTSIDE RECORDS SUMMARY | 2018-11-03 12:40 | XMS ---
PreManage Notification: KAMILAH IBARRA Security Casework Specialist Events No recent Security Events currently on file CRITERIA MET - Group Notification - [facility] - Has Care Guidelines - PDMP - [facility] - 2 Visits in 30 Days CARE PROVIDERS MIRANDA ALTMAN Physician Filling Station Laborer: Surgical 10/13/2017-Current PHONE: Unknown SHIVA CASTELLON Nurse Practitioner 09/27/2018-Current PHONE: [phone] MIRANDA MCMANUS Primary Care 05/14/2016-Current PHONE: [phone] Guidelines Source: [facility] Guidelines Date: 06/24/2017 Care Recommendation: ENCOURAGE PATIENT TO CONNECT WITH [facility] NURSE AT . Care History Social 11/30/2017 [facility] PATIENT CONTACT NUMBER IS INVALID Medical/Surgical 11/03/2018 [facility] IF PATIENT COMES INTO ED PLEASE ADVISE HER - SHE HAS A FOLLOW UP APPOINTMENT SCHEDULED WITH DR ARIES SINGH UROLOGY AT [facility] ON ThursdayOctober 3:00PM - PATIENT STILL HAS [employer] CATHETER DUE TO URINE RETENTION.\T\nbsp; - PATIENT CAN WORK WITH BEENA BAKER RN FROM [facility] [phone] FOR CATHETER QUESTIONS AT HOME 09/30/2018 [facility] - PLEASE CONTACT XIN- ENCODING CLERK AT [facility]- IF PATIENT CONSENTS- - XIN CONTACT NUMBER IS [phone]. 04/14/2018 [facility] - PATIENT PCP HAS REFERRED PATIENT TO A TEST AND RESEARCH REACTOR OPERATOR DR FLORES IN [place], [place]. - PATIENT HAS AN APT WITH TEST AND RESEARCH REACTOR OPERATOR ON 04/28/18. - DR FLORES CONTACT INFO: [phone] Substance Use/Overdose 10/01/2016 [facility] ENCOURAGE PATIENT TO PURSUE ALCOHOL ABSTINENCE PROGRAM. E.D. VISIT COUNT (12 MO.) 1 [facility] 12 [facility]. TOTAL 13 NOTE: Visits indicate total known visits. 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 TYPE: Emergency DIAGNOSES: - [...] gallbladder without cholecystitis without obstruction - Other linting machine operator (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 - Unspecified cirrhosis of liver - Unspecified abdominal pain - Hyperlipidemia, unspecified - Type 2 diabetes mellitus without complications - Anemia, unspecified 04/16/2018 10:32 [facility] [place] TYPE: Emergency COMPLAINT: - ABD PAIN DIAGNOSES: - Other cholelithiasis without obstruction - Other penitentiary (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 - Chronic obstructive pulmonary [...] depressive disorder, single episode, unspecified - Other penitentiary (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 - Type 2 diabetes mellitus without complications 03/15/2018 13:04 [facility] [place] TYPE: Emergency COMPLAINT: - ABD PAIN 02/15/2018 19:51 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 [place] TYPE: Emergency COMPLAINT: - ABD PAIN DIAGNOSES: - Unspecified abdominal pain - Unspecified asthma, uncomplicated - Personal history of pneumonia (recurrent) - Alcoholic cirrhosis of liver without ascites - Other linting machine operator (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 - Anemia, unspecified - [...] - Ocular pain, right eye - Other linting machine operator (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 INPATIENT VISIT TRACKING (12 MO.) 04/23/2018 [facility] DIAGNOSES: - Alcoholic [...] pain, unspecified - Atherosclerotic heart disease of [place] coronary artery without angina pectoris - Thrombocytopenia, unspecified - Other chronic pain - Hepatic failure, unspecified without coma 03/17/2018 19:18 [facility] [place] TYPE: Surgical Services DIAGNOSES: - Alcoholic cirrhosis of liver with ascites - Mild intermittent asthma, uncomplicated - Chronic systolic (congestive) heart failure - Hypomagnesemia - Atherosclerotic heart disease of [place] coronary artery without angina pectoris - Alcoholic [...] Observation COMPLAINT: - CHOLECYSTITIS DIAGNOSES: - 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
== END 2018-11-03 15:10 | disposition home or self-care (01) ==
LOC: ED 12:36
DX: Z46.6 Encounter for fitting and adjustment of urinary device (principal); E11.9 Type 2 diabetes mellitus without complications; F32.9 Major depressive disorder, single episode, unspecified; J44.9 Chronic obstructive pulmonary disease, unspecified; I10 Essential (primary) hypertension; E78.5 Hyperlipidemia, unspecified; D64.9 Anemia, unspecified; Z79.899 Other long term (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
CPT/HCPCS: 81001; 99283

== ENCOUNTER 2019-02-15 18:08 | Emergency (ER) | payer OTHER ==
[~2019-02-15] VITALS: Ht 175.3 cm; Wt 132.0 kg
--- OUTSIDE RECORDS SUMMARY | ~2019-02-15 | XMS | Encounter Summary ---
Demographics + + + | Address | [address] | | | [place] [address] | + + + | Home Phone | | + + + | Preferred Language | Unknown | + + + | Marital Status | Single | + + + | Restorationism Affiliation | [id number] | + + + | Race | Unknown | + + + | Ethnic Group | Unknown | + + + Author + + + | Author | [facility] | | | and [place] | + + + | Organization | [facility] | | | and [place] | + + + | Address | Unknown | + + + | Phone | Unavailable | + + + Support + + +---------+ + | Name | Relationship | Address | Phone | + + +---------+ + | Parisa Reyes | ECON | Unknown | | + + +---------+ + | Sandra Oro | ECON | Unknown | | + + +---------+ + Care Team Providers + +------+ + | Care Curriculum Coordinator Name | Role | Phone | + +------+ + | Julita Cabral PA-C | PCP | | + +------+ + Reason for Visit + + + | Reason | Comments | + + + | Procedure | surgery date | + + + Encounter Details +--------+ + + + + | Date | Type | Department | Care Team | Description | +--------+ + + + + | 12/08/ | Telephone | [facility] | Jose Riojas MD | Procedure (surgery | | 2019 | | [address]OLARYNGOLOGY [address] | [address] | ) | | | | [address] | [address], | | | | | [place] | [place] [address] | | | | | [address] | [phone] | | | | | [phone] | | | +--------+ + + + + Social History + +-------+ +--------+------+ | Tobacco Use | Types | Packs/Day | Years | Date | | | | | Used | | + +-------+ +--------+------+ | Never Smoker | | | | | + +-------+ +--------+------+ + +---+---+---+ | Smokeless Tobacco: | | | | | Never Used | | | | + +---+---+---+ + + +---------+ + | Alcohol Use | Drinks/Week | oz/Week | Comments | + + +---------+ + | No | 0 Standard drinks | 0.0 | stopped 01-08-18 | | | or equivalent | | | + + +---------+ + + + + | Sex Assigned at | Date Recorded | | | | + + + | Not on file | | + + + + + + + | Job Start Date | Occupation | Industry | + + + + | Not on file | Not on file | Not on file | + + + + + + + + | Travel History | Travel Start | Travel End | + + + + + + | No recent travel history available. | + + documented as of this encounter Plan of Treatment Not on filedocumented as of this encounter Visit Diagnoses Not on filedocumented in this encounter"
--- OUTSIDE RECORDS SUMMARY | ~2019-02-15 | XMS | Encounter Summary ---
Demographics + + + | Address | [address] | | | [place] [address] | + + + | Home Phone | | + + + | Preferred Language | Unknown | + + + | Marital Status | Single | + + + | Yazidi Affiliation | [id number] | + + + | Race | Unknown | + + + | Ethnic Group | Unknown | + + + Author + + + | Author | [facility] | | | and [place] | + + + | Organization | [facility] | | | and [...] Team Providers + +------+ + | Care Chef Teacher Name | Role | Phone | + [...] | +--------+ + + + + | 07/21/ | Telephone | [facility] | Jose Riojas MD | Procedure (surgery | | 2019 | | OTOLARYNGOLOGY [address] | [address] | ) | | | | [address] | [address], | | | | | [place] | [place] [address] | | | | | [address] | [phone] | | | | | [phone] | | | +--------+ + + + [...]
--- OUTSIDE RECORDS SUMMARY | ~2019-02-15 | XMS | Encounter Summary ---
Demographics + + + | Address | [address] | | | [place] [address] | + + + | Home Phone | | + + + | Preferred Language | Unknown | + + + | Marital Status | Single | + + + | Buddhist Affiliation | 1041 | + + + | Race | Unknown | + + + | Ethnic Group | Unknown | + + + Author + + + | Author | [facility] | | | and [place] | + + + | Organization | [facility] | | [...] Team Providers + +------+ + | Care Supervisor Drying And Softening Name | Role | Phone | + [...] | | Nausea and | | Keaton Duran MD | | | | | vomiting, | | [address], | | | | | vomiting of | | [address] | | | | | unspecified | | [place], | | | | | type | | [place] [address] | | | | | Aspiration | | Phone: | | | | | pneumonia | | [phone] | | | | | due to | | Fax: | | | | | gastric | | [phone] | | | | | secretions | [...] + | 04/17/ | Anesthesia | [facility] | Robert Gan, | | | 2015 | Event | [facility] | MD [address] | | | | | [address] | [place] | | | | | [place] | [address] | | | | | [address] | | | | | | [phone] | | | +--------+ + + + + Anesthesia Record + + + + + | Procedure Name | Responsible | Anesthesia Start | Anesthesia Stop Time | | | Anesthesiologist | Time | | + + + + + | EGD (N/A Mouth) | Robert aGn MD | 04/17/15 1200 | 04/17/15 1232 [...] | Placed on O2 for transport to PACU | | | 2 | | | [...] + + | Periph | 04/17/15; 1105; [id number] | 04/17/15 1105 by | 04/17/15 1400 by | | eral | catheter system; 20 gauge, 1 03/19 | MELODY RUIZ | Amber Ferris RN | | IV | in length; Hematology; | | | | | intradermal injection, topical [...] | | PRN, Starting e 04/17/15 at 1212, | | PM PST | | | | | Anesthesia Intra-op | | | | | | + +--------+ +-------+------+------+ +---+---+ | | | +---+---+ + +-------+ +--------+---+---+ | lidocaine (PF) 2% injection | Given | 04/17/19 | 100 mg | | | | PRN, Starting e 04/17/15 at 1205, | | 16 12:05 | [...] PRN, Starting Thu04/17/15 at 1205, | | PM PST | [...]
--- OUTSIDE RECORDS SUMMARY | ~2019-02-15 | XMS | Encounter Summary ---
Demographics + + + | Address | [address] | | | [place] [address] | + + + | Home Phone | | + + + | Preferred Language | Unknown | + + + | Marital Status | Single | + + + | Mu-Ism Affiliation | 1041 | + + + | Race | Unknown | + + + | Ethnic Group | Unknown | + + + Author + + + | Author | [facility] | | | and [place] | + + + | Organization | [facility] | | | [...] Team Providers + +------+ + | Care Vault Teller Name | Role | Phone | + +------+ + | Julita Cabral PA-C | PCP | | + +------+ + Reason for Visit + + + | Reason | Comments | + + + | Procedure | | + + + Encounter Details +--------+ + + + + | Date | Type | Department | Care Team | Description | +--------+ + + + + | 09/20/ | Telephone | [facility] [place] | Jose Riojas MD | Procedure | | 2019 | | OTOLARYNGOLOGY [address] | [address] | | | | | [address] | [address] [place], | | | | | [place], [place] | [place] [address] | | | | | [address] | [phone] | | | | | [phone] | | | +--------+ + + + [...]
--- OUTSIDE RECORDS SUMMARY | ~2019-02-15 | XMS | Encounter Summary ---
Demographics + + + | Address | [address] | | | [place] [address] | + + + | Home Phone | | + + + | Preferred Language | Unknown | + + + | Marital Status | Single | + + + | Baptism Affiliation | 1041 | + + + | Race | Unknown | + + + | Ethnic Group | Unknown | + + + Author + + + | Author | [facility] | | | and [place] | + + + | Organization | [facility] | | | [...] Team Providers + +------+ + | Care Auto Slip Cover Installer Name | Role | Phone | + [...] | +--------+ + + + + | 07/30/ | Telephone | [facility] [place] | [place], | Procedure | | 2019 | | GASTROENTEROLOGY | [facility] [address] | | | | | [address] [place] | [place], [address] | | | | | [address] [place], [place] | [place], [place] | | | | | [address] | [address] | | | | | [phone] | | | +--------+ + + + [...]
--- OUTSIDE RECORDS SUMMARY | ~2019-02-15 | XMS | Encounter Summary ---
Demographics + + + | Address | [address] | | | [place] [address] | + + + | Home Phone | | + + + | Preferred Language | Unknown | + + + | Marital Status | Single | + + + | Anglican Affiliation | 1041 | + + + | Race | Unknown | + + + | Ethnic Group | Unknown | + + + Author + + + | Author | [facility] | | | and [place] | + + + | Organization | [facility] | [...] Team Providers + +------+ + | Care Lead Section Supervisor Name | Role | Phone | + +------+ + | Julita Cabral PA-C | PCP | | + +------+ + Reason for Visit + + + | Reason | Comments | + + + | Appointment | | + + + Encounter Details +--------+ + + + + | Date | Type | Department | Care Team | Description | +--------+ + + + + | 03/15/ | Telephone | [facility] [place] | Jose Riojas MD | Appointment | | 2018 | | OTOLARYNGOLOGY [address] | [address] | | | | | [address] | [address] [place], | | | | | [place], [place] | [place] [address] | | | | | [address] | [phone] | | | | | [phone] | | | +--------+ + + + [...]
--- OUTSIDE RECORDS SUMMARY | ~2019-02-15 | XMS | Encounter Summary ---
Demographics + + + | Address | [address] | | | [place] [address] | + + + | Home Phone | | + + + | Preferred Language | Unknown | + + + | Marital Status | Single | + + + | Lutheran Affiliation | 1041 | + + + | Race | Unknown | + + + | Ethnic Group | Unknown | + + + Author + + + | Author | [facility] | | | and [place] | + + + | Organization | [facility] | | | [...] Team Providers + +------+ + | Care Correctional Classification Counselor Name | Role | Phone | + +------+ + | Julita Cabral PA-C | PCP | | + +------+ + Reason for Referral Evaluate & Treat (Routine) +--------+ + + + + + | Status | Reason | Specialty | Diagnoses / | Referred By | Referred To | | | | | Procedures | Contact | Contact | +--------+ + + + + + | Closed | Specialty | Cardiology | Diagnoses | Cason, | [facility] | | | Services | | Heart | Irma R, | Cardiology | | | Required | | failure, | PharmD [address] | | | | | unspecified | [address] | [place], | | | | | HF | [place] | [place] | | | | | chronicity, | [place] | [address] | | | | | unspecified | [address] | Phone: | | | | | heart | Phone: | [phone] | | | | | failure type | [phone] | Fax: | | | | | ([facility]) | [phone] | [phone] | | | | | Procedures | | | | | | | FLEXIBLE BABYSITTER | | | +--------+ + + + + + Encounter Details +--------+ + + + + | Date | Type | Department | Care Team | Description | +--------+ + + + + | 05/07/ | Orders Only | [facility] | Irma Cason, | Heart failure, | | 2019 | | [facility] | PharmD [address] | unspecified HF | | | | [address] [place] | [address] [place] | chronicity, | | | | [place] [address] | [place] [address] | unspecified heart | | | | [phone] | [phone] | failure type (HCC) | | | | | | (Primary Dx) | +--------+ + + + + Social [...] of this encounter Plan of Treatment + + +--------+ + + | Name | Type | Priori | Associated Diagnoses | Order Schedule | | | | ty | | | + + +--------+ + + | AMB REFERRAL TO [facility] | Outpatient | Routin | Heart failure, | Ordered: 05/07/2018 | | [facility] | Referral | e | unspecified HF | | | | | | chronicity, | | | | | | unspecified heart | | | | | | failure type (HCC) | | + + +--------+ + + documented as of this encounter Visit Diagnoses + + | Diagnosis | + + | Heart failure, unspecified HF chronicity, unspecified heart failure type (HCC) - | | Primary | + + documented in this encounter"
--- OUTSIDE RECORDS SUMMARY | ~2019-02-15 | XMS | Encounter Summary ---
Demographics + + + | Address | [address] | | | [place] [address] | + + + | Home Phone | | + + + | Preferred Language | Unknown | + + + | Marital Status | Single | + + + | Baptism Affiliation | 1041 | + + + | Race | Unknown | + + + | Ethnic Group | Unknown | + + + Author + + + | Author | [facility] | | | and [place] | + + + | Organization | [facility] | | | and [...] Team Providers + +------+ + | Care Local Coordinator Name | Role | Phone | + +------+ + | Julita Cabral PA-C | PCP | | + +------+ + Reason for Visit Evaluate & Treat (Routine) +--------+--------+ + + + + | Status | Reason | Specialty | Diagnoses / | Referred By | Referred To | | | | | Procedures | Contact | Contact | +--------+--------+ + + + + | Closed | | Internal | Diagnoses | Misha, | Hai, | | | | Medicine - | Obstructive | Julita Duval, | Lupillo Henry | | | | Sleep | sleep apnea | [address] | MD [address] | | | | Medicine / | (adult) | [address] | [place] | | | | Sleep | (pediatric) | [place] | [facility] | | | | Medicine | CONSULT [address] | [facility] [address] | [place], [place] | | | | | 1:[address] | [place], | [address] Phone: | | | | | Procedures | [place] | [phone] | | | | | NEW PATIENT | [address] | Fax: | | | | | | Phone: | [phone] | | | | | | [phone] | | | | | | | Fax: | | | | | | | [phone] | | +--------+--------+ + + + + Encounter Details +--------+---------+ + + + | Date | Type | Department | Care Team | Description | +--------+---------+ + + + | 08/20/ | Office | [facility] [place] | Lupillo Valles | NO SHOW (Primary Dx) | | 2015 | Visit | SLEEP DISORDER [address] | MD [address] | | | | | [address] [place] | [address] [place] | | | | | [place] [address] | [place] [address] | | | | | [phone] | [phone] | | | | | | | | +--------+---------+ + + + Social History [...] documented as of this encounter Progress Notes Lupillo Valles Jr., MD - 08/21/2015 2:19 PM PDTThe patient was a NO SHOW for a 1 hour [facility] medicine consultation. 2: 21 PM PDTdocumented in this encounter Plan of Treatment Not on filedocumented as of this encounter Visit Diagnoses + + | Diagnosis | + + | No Show - Primary Code used for vists where the patient is not seen | + + documented in this encounter"
--- OUTSIDE RECORDS SUMMARY | ~2019-02-15 | XMS | Clinical Summary ---
Demographics + + + | Address | [address] | | | [place] [address] | + + + | Home Phone | | + + + | Preferred Language | Unknown | + + + | Marital Status | Single | + + + | Yazdanism Affiliation | 1041 | + + + | Race | Unknown | + + + | Ethnic Group | Unknown | + + + Author + + + | Author | [facility] | | | and [place] | + + + | Organization | [facility] | | | [...] Team Providers + +------+ + | Care Casting Operator Name | Role | Phone | + +------+ + | Julita Cabral PA-C | PCP | | + +------+ + Allergies No Known Allergies Medications + + + +---------+------+------+-------+ | Medication | Sig | Dispensed | Refills | Star | End | Statu | | | | | | t | Date | s | | | | | | Date | | | + + + +---------+------+------+-------+ | albuterol 90 | Inhale 1-2 puffs | | 0 | | | Activ | | mcg/puff inhaler | into the lungs every | | | | | e | | | 3 hours as needed | | | | | | | | for Shortness of | | | | | | | | Breath. | | | | | | + + + +---------+------+------+-------+ | fluticasone | 2 sprays by Nasal | | 0 | | | Activ | | (FLONASE) 50 | route Daily. | | | | | e | | mcg/nasal spray | | | | | | | + + + +---------+------+------+-------+ | | Inhale 2 puffs into | | 0 | | | Activ | | mometasone-formotero | the lungs 2 times | | | | | e | | l (DULERA) 200-5 | daily. | | | | | | | mcg/puff inhaler | | | | | | | + + + +---------+------+------+-------+ | hydrOXYzine | Take 25 mg by mouth | | 0 | | | Activ | | pamoate (VISTARIL) | every 6 hours as | | | | | e | | 25 mg capsule | needed for Anxiety. | | | | | | + + + +---------+------+------+-------+ | atorvaSTATin | Take 40 mg by mouth | | 0 | | | Activ | | (LIPITOR) 40 mg | nightly. | | | | | e | | tablet | | | | | | | + + + +---------+------+------+-------+ | metoclopramide | Take 10 mg by mouth | | 0 | | | Activ | | (REGLAN) 10 mg | 4 times daily as | | | | | e | | tablet | needed for Nausea or | | | | | | | | Vomiting. | | | | | | + + + +---------+------+------+-------+ | ferrous sulfate | Take 325 mg by mouth | | 0 | | | Activ | | 325 mg tablet | daily (with | | | | | e | | | breakfast). With | | | | | | | | Vitamin C | | | | | | + + + +---------+------+------+-------+ | magnesium oxide | Take 400 mg by mouth | | 0 | | | Activ | | (MAG-OX) 400 mg | 2 times daily. | | | | | e | | tablet | | | | | | | + + + +---------+------+------+-------+ | pantoprazole | Take 40 mg by mouth | | 0 | | | Activ | | (PROTONIX) 40 mg | every morning | | | | | e | | tablet | (before breakfast). | | | | | | + + + +---------+------+------+-------+ | ascorbic acid | Take 500 mg by mouth | | 0 | | | Activ | | (VITAMIN C) 500 mg | Daily. With Iron | | | | | e | | tablet | | | | | | | + + + +---------+------+------+-------+ | ondansetron | Take 4 mg by mouth | | 0 | | | Activ | | (ZOFRAN) 4 mg tablet | every 6 hours as | | | | | e | | | needed for Nausea or | | | | | | | | Vomiting. | | | | | | + + + +---------+------+------+-------+ | spironolactone | Take 50 mg by mouth | | 0 | | | Activ | | (ALDACTONE) 25 mg | Daily. | | | | | e | | tablet | | | | | | | + + + +---------+------+------+-------+ | lidocaine | Place 1 patch onto | | 0 | | | Activ | | (LIDODERM) 5% patch | the skin Daily. | | | | | e | | | Apply for 12 hours, | | | | | | | | then remove for 12 | | | | | | | | hours. | | | | | | + + + +---------+------+------+-------+ | albuterol 2.5 mg/3 | Take 2.5 mg by | | 0 | | | Activ | | mL nebulizer | nebulization every 6 | | | | | e | | solution | hours as needed for | | | | | | | | Shortness of | | | | | | | | Breath. | | | | | | + + + +---------+------+------+-------+ | potassium chloride | Take 2 tablets by | 60 | 1 | 02/2 | | Activ | | (KLOR-CON M20) 20 | mouth Daily. | tablet | | 1/20 | | e | | mEq ER tablet | | | | 19 | | | + + + +---------+------+------+-------+ | bumetanide (BUMEX) | Take 1 tablet by | 60 | 1 | 02/2 | | Activ | | 1 mg tablet | mouth 2 times daily. | tablet | | 1/20 | | e | | | | | | 19 | | | + + + +---------+------+------+-------+ | acetaminophen | Take 325-650 mg by | | 0 | 01/1 | | Activ | | (TYLENOL) 325 mg | mouth Every 8 hours | | | 7/20 | | e | | tablet | as needed. | | | 19 | | | + + + +---------+------+------+-------+ | cetirizine | Take 10 mg by mouth | | 0 | | | Activ | | (ZYRTEC) 10 mg | Daily as needed. | | | | | e | | tablet | | | | | | | + + + +---------+------+------+-------+ | atorvaSTATin | Take 40 mg by mouth. | | 0 | 01/1 | | Activ | | (LIPITOR) 40 mg | | | | 7/20 | | e | | tablet | | | | 19 | | | + + + +---------+------+------+-------+ | Polyethylene | Take by mouth once. | | 0 | | | Activ | | Glycol powder | | | | | | e | + + + +---------+------+------+-------+ | lactulose 10 g/15 | Take 30 mLs by mouth | 1892 mL | 2 | 06/15 | | Activ | | mL solution | 3 times daily. | | | 07/03 | | e | | | | | | 19 | | | + + + +---------+------+------+-------+ Active Problems + + + | Problem | Noted Date | + + + | Deviated nasal septum | 07/08/2018 | + + + | Hypertrophy of nasal turbinates | 07/08/2018 | + + + | Neoplasm of uncertain behavior of skin | 07/08/2018 | + + + | Obstructive sleep apnea (adult) (pediatric) | 07/08/2018 | + + + | Asthma | 07/07/2018 | + + + | Cirrhosis | 07/07/2018 | + + + + + | Overview: Overview: Complicated by LE edema, not on lasix | | prior to admission (unclear why) | + + + + + | Diabetes mellitus | 07/07/2018 | + + + + + | Overview: Overview: | | Diet controlled, previously required insulin and sitagliptin | + + + + + | Anasarca | 04/23/2018 | + + + | Acute abdominal pain | 03/18/2018 | + + + | Acute cholecystitis | 03/18/2018 | + + + | Alcohol abuse | 03/18/2018 | + + + | Gastroesophageal reflux disease without esophagitis | 03/18/2018 | + + + | Iron deficiency anemia | 03/18/2018 | + + + | Systolic murmur | 03/18/2018 | + + + | BMI 50.0-59.9, adult | 04/17/2015 | + + + | Nausea and vomiting | 04/16/2015 | + + + | Low hemoglobin | 04/16/2015 | + + + | Aspiration pneumonia | 04/16/2015 | + + + | Acute appendicitis | 03/02/2015 | + + + + + | Overview: Note: Improved | + + + + + | Anal or rectal pain | 07/17/2014 | + + + + + | Overview: Note: Unchanged | + + +---------+ + | Problem | 05/29/2014 | +---------+ + + + | Overview: Note: Unchanged | | Note: Unchanged | | | | Note: Unchanged | | Note: Unchanged | + + + + + | Benign neoplasm of colon | 10/30/2010 | + + + + + | Overview: Note: Improved | + + + + + | Hemorrhage of rectum and anus | 10/17/2010 | + + + + + | Overview: Note: Unchanged | + + Encounters +--------+ + + + + | Date | Type | Specialty | Care Team | Description | +--------+ + + + + | 01/31/ | Telephone | Otolaryngology | Jose Riojas MD | Procedure | | 2018 | | | | | +--------+ + + + + | 01/25/ | Telephone | Otolaryngology | Cindy Doran | Procedure (surgery | | 2018 | | | [place] | date ) | +--------+ + + + + | 01/19/ | Telephone | Gastroenterology | Kahlil, | Imaging | | 2018 | | | [facility] | | +--------+ + + + + | 01/18/ | Telephone | Gastroenterology | Kahlil, | Imaging (ultrasound | | 2018 | | | [facility] | needs scheduled) | +--------+ + + + + | 01/05/ | Documentati | [facility]ology | [facility] | | | 2018 | on | | [facility] | | +--------+ + + + + | 01/05/ | Telephone | [facility]astroenterology | [facility], | LABS | | 2018 | | | [facility] | | +--------+ + + + + | 01/04/ | Orders Only | Gastroenterology | [facility], | Alcoholic cirrhosis | | 2018 | | | FR[facility] | of liver without | | | | | | ascites (HCC) | | | | | | (Primary Dx); | | | | | | Anemia, unspecified | | | | | | type; Hypokalemia; | | | | | | Thrombocytopenia | | | | | | (HCC) | +--------+ + + + + | 12/08/ | Telephone | Otolaryngology | Jose Riojas MD | Procedure (surgery | | 2018 | | | | date ) | +--------+ + + + + from Last 3 Months Immunizations + + + + | Name | Administration Dates | Next Due | + + + + | DTP (PED) | 07/26/1979, 01/08/1977, 1975, | | | | 1975, 1975 | | + + + + | HEP A, 2 DOSE | 06/07/2015 | | | (ADULT) | | | + + + + | HEP A/HEP B, 3 DOSE | 10/19/2012, 07/12/2012, 10/20/2003 | | | (ADULT) | | | + + + + | INFLUENZA 65 Y OR >, | 01/30/2017 | | | TRIVALENT HIGH-DOSE | | | + + + + | INFLUENZA PF | 11/13/2017, 01/31/2016 | | | QUAD(PED/ADOL/ADULT) | | | | ,PSKT or VIAL | | | + + + + | INFLUENZA QUADR | 01/30/2014 | | | W/PRES | | | | (PED/ADOL/ADULT) | | | | MULTIDOSE | | | + + + + | INFLUENZA, | 06/07/2015, 01/08/2013, 01/08/2012, | | | UNSPECIFIED | 01/23/2011, 02/04/2008, 01/08/2007, | | | FORMULATION | 01/09/1998 | | + + + + | MMR, 2 DOSE | 09/22/1979, 1975 | | | (PED/ADULT) | | | + + + + | PNEUMOCOCCAL | 01/08/2013, 01/08/2012 | | | POLYSACCHARIDE | | | | 23-VALENT (PPSV23) | | | + + + + | POLIOVIRUS,OPV | 07/26/1979, 01/08/1977, 1975, | | | (LIVE) | 1975 | | + + + + | TD PF (2 LF TETANUS) | 07/13/1987 | | | (ADOL/ADULT) | | | + + + + | TD PF (5 LF TETANUS) | 07/10/2006 | | | (ADOL/ADULT) | | | + + + + | TDAP, (ADOL/ADULT) | 01/08/2012, 01/08/2012 | | + + + + Family History + +------+ + + | Relation | Name | Status | Comments | + +------+ + + | Brother | | Alive | | + +------+ + + | Father | | Other | unknown | + +------+ + + | Mother | | | liver failure | | | | (Age | | | | | 60) | | + +------+ + + | Sister | | Alive | | + +------+ + + Social History + +-------+ +--------+------+ [...] recent travel history available. | + + Last Filed Vital Signs + + + + + | Vital Sign | Reading | Time Taken | Comments | + + + + + | Blood Pressure | 148/72 | 07/07/2018 10:48 AM | | | | | PDT | | + + + + + | Pulse | 69 | 07/07/2018 12:57 PM | | | | | PDT | | + + + + + | Temperature | 36.7 C (98 F) | 07/07/2018 10:48 AM | | | | | PDT [...] | | + + + + + Plan of Treatment + + + + + | Health Maintenance | Due Date | Last Done | Comments | + + + + + | Diabetic Eye Exam | | | | | | 4 | | | + + + + + | Diabetic Foot Exam | | | | | | 4 | | | + + + + + | Hemoglobin A1c | | | | | Screening | 4 | | | + + + + + | Cervical Cancer | | | | | Screening (Pap) | 6 | | | + + + + + | Microalbumin | | | | | Screening | 8 | | | + + + + + | Vaccine: Influenza | | 11/13/2017, 01/30/2017, | | | (#1) | 9 | 01/31/2016, Additional history | | | | | exists | | + + + + + | Vaccine: | | 01/08/2012, 01/08/2012, | | | Dtap/Tdap/Td (7 - | 2 | 07/10/2006, Additional history | | | Td) | | exists | | + + + + + | Vaccine: | Completed | 01/08/2013, 01/08/2012 | | | Pneumococcal 19-64 | | | | + + + + + Procedures + +--------+ + + + | Procedure Name | Priori | Date/Time | Associated Diagnosis | Comments | | | ty | | | | + +--------+ + + + | LABS - EXTERNAL SCAN | | 01/05/2019 | | Results for this | | | | 12:00 AM | | procedure are in the | | | | PDT | | results section. | + +--------+ + + + from Last 3 Months Results LABS - EXTERNAL SCAN (01/05/2019 12:00 AM PDT) + + + | Narrative | Performed At | + + + | Ordered by an | | | unspecified provider. | | + + + from Last 3 Months Insurance + +--------+ +--------+ +---------+--------+ | Payer | Benefi | Subscriber | Effect | Phone | Address | Type | | | t Plan | ID | jaden | | | | | | / | | Dates | | | | | | Group | | | | | | + +--------+ +--------+ +---------+--------+ | [place] | MEDICA | [id number] | 04/16/19 | [phone] | | Medica | | | [place] | | 19-Pre | 2 | | id | | | PLUS | | sent | | | | + +--------+ +--------+ +---------+--------+ | HEALTH | IHS | [id number] | | | | Indemn | | SERVICE | YELLOW | | 976-Pr | | | ity | | | HAWK | | esent | | | | + +--------+ +--------+ +---------+--------+ | [place] | MEDICA | [id number] | | [phone] | | Medica | | | [place] | | 019-Pr | 2 | | id | | | PLUS | | esent | | | | + +--------+ +--------+ +---------+--------+ | [employer] | IHS | [phone] | 03/16/19 | | | Indemn | | SERVICE | YELLOW | | 19-Pre | | | ity | | | HAWK | | sent | | | | + +--------+ +--------+ +---------+--------+ + +--------+ +--------+ + + | Guarantor Name | Accoun | Relation to | Date | Phone | Billing Address | | | t Type | Patient | of | | | | | | | | | | + +--------+ +--------+ + + | Tiny Campuzano | Person | Self [birth year] | [address] | | | al/Fam | | 1975 | [phone] | [place] | | | [place] | | | [address] (Home) | [address] | + +--------+ +--------+ + + | Tiny Campuzano | Person | Self | [birth year] | [address] | | | al/Fam | | 1975 | [phone] | [place] | | | [place] | | | [address] (Home) | [address] | + +--------+ +--------+ + + Advance Directives + + + + + | Type | Date Recorded | Patient | Explanation | | | | Java Application Developer | | + + + + + | Power of | | | | | Monitoring And Evaluation Advisor | | | | + + + + + | Advance | 04/17/2015 10:06 | | | | Directive | AM | | | + + + + + + + + + + | Code Status | Date | Date | Comments | | | Activated | Inactivated | | + + + + + | Full Code | 04/23/2018 | 05/06/2018 | | | | 8:41 PM | 6:14 PM | | + + + + +
--- OUTSIDE RECORDS SUMMARY | ~2019-02-15 | XMS | Encounter Summary ---
Demographics + + + | Address | [address] | | | [place] [address] | + + + | Home Phone | | + + + | Preferred Language | Unknown | + + + | Marital Status | Single | + + + | Tenriism Affiliation | 1041 | + + + | Race | Unknown | + + + | Ethnic Group | Unknown | + + + Author + + + | Author | [facility] | | | and [place] | + + + | Organization | [facility] | | | and [...] Team Providers + +------+ + | Care Lipstick Molder Name | Role | Phone | + +------+ + | Julita Cabral PA-C | PCP | | + +------+ + Encounter Details +--------+ + + + + | Date | Type | Department | Care Team | Description | +--------+ + + + + | 07/08/ | Orders Only | [facility] [place] | [place], | Alcoholic cirrhosis | | 2019 | | GASTROENTEROLOGY | [address] | of liver without | | | | [address] [place] | [place], [address] | ascites (HCC) | | | | [address] [place], [place] | [place], [place] | (Primary Dx) | | | | [address] | [address] | | | | | [phone] | | | +--------+ + + + [...] documented as of this encounter Progress Notes Lupe Sandhu RN - 07/08/2018 8:34 AM PDTEthyl Glucuronide and Ethyl Sulfate UA ordered for every 2 weeks, and M.A. faxed order to [facility]. documented in this encounter Plan of Treatment + +------+--------+ + + | Name | Type | Priori | Associated Diagnoses | Order Schedule | | | | ty | | | + +------+--------+ + + | Ethyl | Lab | Routin | Alcoholic | Every 2 weeks for 20 | | Glucuronide/Ethyl | | e | cirrhosis of liver | Occurrences | | Sulfate,Ur,Rnd | | | without ascites | starting 07/08/2018 | | | | | (HCC) | until 07/09/2019 | + +------+--------+ + + documented as of this encounter Visit Diagnoses + + | Diagnosis | + + | Alcoholic cirrhosis of liver without ascites (HCC) - Primary Alcoholic cirrhosis of | | liver | + + documented in this encounter"
--- OUTSIDE RECORDS SUMMARY | ~2019-02-15 | XMS | Encounter Summary ---
Demographics + + + | Address | [address] | | | [place] [address] | + + + | Home Phone | | + + + | Preferred Language | Unknown | + + + | Marital Status | Single | + + + | Anabaptism Affiliation | 1041 | + + + [...] Team Providers + +------+ + | Care Psychiatric Aide Instructor Name | Role | Phone | + [...] | | [address] | [place] [address] | | | | | | [place], | Phone: | | | | | | [place] | [phone] | | | | | | [address] | Fax: | | | | | | Phone: | [phone] | | | | | | [phone] | | | | | | | Fax: | | | | | | | [phone] | | +--------+--------+ + + + + Encounter Details +--------+---------+ + + + | Date | Type | Department | Care Team | Description | +--------+---------+ + + + | 07/07/ | Office | [facility] | Jose Riojas MD | Deviated nasal | | 2019 | Visit | OTOLARYNGOLOGY [address] | [address] [place] | septum (Primary Dx); | | | | [address] | [address] [place], | Hypertrophy of | | | | [place], [place] | [place] [address] | nasal turbinates; | | | | [address] | [phone] | Neoplasm of | | | | [phone] | | uncertain behavior | | | [...] + + + documented in this encounter Plan of Treatment [...]
--- OUTSIDE RECORDS SUMMARY | ~2019-02-15 | XMS | Encounter Summary ---
Demographics + + + | Address | [address] | | | [place] [address] | + + + | Home Phone | | + + + | Preferred Language | Unknown | + + + | Marital Status | Single | + + + | Advent Affiliation | 1041 | + + + | Race | Unknown | + + + | Ethnic Group | Unknown | + + + Author + + + | Author | [facility] | | | and [place] | + + + | Organization | [facility] | | | [...] Team Providers + +------+ + | Care Cable Television Installer Name | Role | Phone | [...] 2016 | | GASTROENTEROLOGY | [address] [place] | Morbid obesity due | | | | [address] [place] | [address] [place], [place] | to excess calories | | | | [address] [place], [place] | [address] | (HCC); Aspiration | | | | [address] | | pneumonia, | | | | [phone] | | unspecified | | | | [...]
--- OUTSIDE RECORDS SUMMARY | ~2019-02-15 | XMS | Clinical Summary ---
Demographics + + + | Address | [address] | | | [place] [address] | + + + | Home Phone | | + + + | Preferred Language | Unknown | + + + | Marital Status | Single | + + + | Jewish Affiliation | Unknown | + + + | Race | Unknown | + + + | Ethnic Group | Unknown | + + + Author + + + | Author | [facility] (Historical as of | | | 10-30-18) | + + + | Organization | [facility] (Historical as of | | | 10-30-18) | + + + | Address | Unknown | + + + | Phone | Unavailable | + + + Support + + +---------+ + | Name | Relationship | Address | Phone | + + +---------+ + | Justen() | ECON | Unknown | | | [place] | | | | + + +---------+ + Care Team Providers + +------+ + | Care Safety Assistant Name | Role | Phone | + +------+ + | Gabriel Borges | PP | | + +------+ + Allergies Not on File Current Medications Not on file Active Problems Not on file Social History + +-------+ +--------+------+ | Tobacco Use | Types | Packs/Day | Years | Date | | | | | Used | | + +-------+ +--------+------+ | Never Assessed | | | | | + +-------+ +--------+------+ + + + | Sex Assigned at | Date Recorded | | | | + + + | Not on file | | + + + Plan of Treatment + [...] | | | | | (#1) | 9 | | | + + + + + Results Not on filefrom Last 3 Months Insurance + +--------+ +------+-------+ + | Payer | Benefi | Subscriber | Type | Phone | Address | | | t Plan | ID | | | | | | / | | | | | | | Group | | | | | + +--------+ +------+-------+ + | MEDICAID | MEDICA | [id number] | | | [address] | | | ID | | | | [place], [place] | | | [place] | | | | [address] | + +--------+ +------+-------+ + | /[facility] | YELLOW | [phone] | | | | | PLANS | [place] | | | | | + +--------+ +------+-------+ + + +--------+ +--------+ + + | Guarantor Name | Accoun | Relation to | Date | Phone | Billing Address | | | t Type | Patient | of | | | | | | | | | | + +--------+ +--------+ + + | TINY IBARRA | Person | Self [birth year] | Home: | [address] | | | deo/[place] | | 1975 | [phone] [place] | | | [place] | | | [phone] | [address] | + +--------+ +--------+ + +"
--- OUTSIDE RECORDS SUMMARY | ~2019-02-15 | XMS | Encounter Summary ---
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
--- OUTSIDE RECORDS SUMMARY | ~2019-02-15 | XMS | Encounter Summary ---
Demographics + + + | Address | [address] | | | [place] [address] | + + + | Home Phone [...] Team Providers + +------+ + | Care Optical Worker Name | Role | Phone | + +------+ + | Julita Cabral PA-C | PCP | | + +------+ + Reason for Visit + + + | Reason | Comments | + + + | Hospital Follow-up | | + + + Encounter Details +--------+ + + + + | Date | Type | Department | Care Team | Description | +--------+ + + + + | 05/07/ | Telephone | [facility] | Irma Cason, | Hospital Follow-up | | 2019 | | [facility] | PharmD [address] | | | | | [address] [place] | [address] | | | | | [place] [address] | [place] [address] | | | | | [phone] | [phone] | | +--------+ + + + + [...]
--- OUTSIDE RECORDS SUMMARY | ~2019-02-15 | XMS | Encounter Summary ---
Demographics + + + | Address | [address] | | | [place] [address] | + + + | Home Phone [...] + + + | Author | [facility] | | | and [place] | + + + | Organization | [facility] | | | [...] Team Providers + +------+ + | Care Green Hide Inspector Name | Role | Phone | + [...] | | Obstructive | | E, MD [address] | | | | | sleep apnea | | [address] | | | | | (adult) | | [address] | | | | | (pediatric) | | [place], | | | | | Neoplasm of | | [place] [address] | | | | | uncertain | | Phone: | | | | | behavior of | | [phone] | | | | | skin | | Fax: | | | | | Procedures | | [phone] | | | | | [place] EXCISION | | | | | | | TURBINATE,BECERRIL | | | | | | | BMUCOUS [place] | | | | | | | REPAIR OF | | | | | | | NASAL SEPTUM | | | | | | | [place] EXC | | | | | | | SKIN BENIG | | | | | | | 1.1-2CM | | | | | | | FACE,FACIAL | | | | | | | | | | | | | | SEPTOPLASTY, | | | | | | | INFEROR | | | | | | | TURBINOPLAST | | | | | | | Y Excision | | | | | | | of right | | | | | | | upper eyelid | | | | | | | lesion | | | +--------+--------+ + + + + Encounter Details +--------+ + + + + | Date | Type | Department | Care Team | Description | +--------+ + + + + | 09/07/ | Hospital | [facility] | Jose Riojas MD | | | 2019 | Encounter | MED CTR OR INTRA OP | [address] [facility] | | | | | [address] | [address] [place], | | | | | [place], [place] | [place] [address] | | | | | [address] | [phone] | | | | | [phone] | | | +--------+ + + + [...]
--- OUTSIDE RECORDS SUMMARY | ~2019-02-15 | XMS | Encounter Summary ---
Demographics + + + | Address | [address] | | | [place] [address] | + + + | Home Phone | | + + + | Preferred Language | Unknown | + + + | Marital Status | Single | + + + | Hoahaoism Affiliation | 1041 | + + + | Race | Unknown | + + + | Ethnic Group | Unknown | + + + Author + + + | Author | [facility] | | | and [place] | + + + | Organization | [facility] | | | and [...] Team Providers + +------+ + | Care Jewelry Mold Maker Name | Role | Phone | + +------+ + | Julita Cabral PA-C | PCP | | + +------+ + Reason for Visit +---------+ + | Reason | Comments | +---------+ + | Imaging | ultrasound needs scheduled | +---------+ + Encounter Details +--------+ + + + + | Date | Type | Department | Care Team | Description | +--------+ + + + + | 01/18/ | Telephone | [facility] | [facility], | Imaging (ultrasound | | 2019 | | GASTROENTEROLOGY | [address] | needs scheduled) | | | | [address] [place] | [place], [address] | | | | | [address] [place], [place] | [place] | | | | | [address] | [address] | | | | | [phone] | | | +--------+ + + + [...]
--- OUTSIDE RECORDS SUMMARY | ~2019-02-15 | XMS | Encounter Summary ---
Demographics + + + | Address | [address] | | | [place] [address] | + + + | Home Phone [...] + + + | Author | [facility] | | | and [place] | + + + | Organization | [facility] | | | [...] Team Providers + +------+ + | Care Commodity Broker Name | Role | Phone | + +------+ + | Julita Cabral PA-C | PCP | | + +------+ + Reason for Visit + + + | Reason | Comments | + + + | Insurance | | | Authorization | | + + + Encounter Details +--------+ + + + + | Date | Type | Department | Care Team | Description | +--------+ + + + + | 03/01/ | Telephone | [facility] | [facility], | Insurance | | 2018 | | GASTROENTEROLOGY | [address] | Authorization | | | | [address] [place] | [place], [address] [address] | | | | | [address] [place] | [place] | | | | | [address] | [address] | | | | | [phone] | | | +--------+ + + + [...]
--- OUTSIDE RECORDS SUMMARY | ~2019-02-15 | XMS | Encounter Summary ---
Demographics + + + | Address | [address] | | | [place] [address] | + + + | Home Phone [...] Team Providers + +------+ + | Care Dot Net Architect Name | Role | Phone | + [...] + + | 01/25/ | Telephone | [facility] | Cindy Doran | Procedure (surgery | | 2019 | | OTOLARYNGOLOGY [address] | M, [employer] Helicopter Pilot | date ) | | | | [facility] [address] | | | | | | [place] | | | | | | [address] | | | | | | [phone] | | | +--------+ + + + [...]
--- OUTSIDE RECORDS SUMMARY | ~2019-02-15 | XMS | Encounter Summary ---
Demographics + + + | Address | [address] | | | [place] [address] | + + + | Home Phone | | + + + | Preferred Language | Unknown | + + + | Marital Status | Single | + + + | Protestant Affiliation | 1041 | + + + | Race | Unknown | + + + | Ethnic Group | Unknown | + + + Author + + + | Author | [facility] | | | and [place] | + + + | Organization | [facility] | | | [...] Team Providers + +------+ + | Care Asphalt Paving Foreman Name | Role | Phone | + +------+ + | Julita Cabral PA-C | PCP | | + +------+ + Encounter Details +--------+ + + + + | Date | Type | Department | Care Team | Description | +--------+ + + + + | 01/05/ | Documentati | [facility] [place] | [facility], | | | 2019 | on | GASTROENTEROLOGY | Anastasia PIN MACHINE OPERATOR [address] | | | | | [address] [place] | [place], [address] | | | | | [address] [place], [place] | [place], [place] | | | | | [address] | [address] | | | | | [phone] | | | +--------+ + + + [...] 01/05/2019 8:24 AM PDTFaxed lab [facility].Electro nically signed by Becky Ferris CMA at 01/05/2019 8:25 AM PDTdocumented in this encoun ter Plan of Treatment Not on filedocumented as of this encounter Visit Diagnoses Not on filedocumented in this encounter"
--- OUTSIDE RECORDS SUMMARY | ~2019-02-15 | XMS | Encounter Summary ---
Demographics + + + | Address | [address] | | | [place] [address] | + + + | Home Phone | | + + + | Preferred Language | Unknown | + + + | Marital Status | Single | + + + | Hoahaoism Affiliation | 1041 | + + + | Race | Unknown | + + + | Ethnic Group | Unknown | + + + Author + + + | Author | [facility] | | | and [place] | + + + | Organization | [facility] | | | [...] Team Providers + +------+ + | Care Warehouse Packaging Supervisor Name | Role | Phone | [...] | [address] [place] | apnea (Primary Dx); | | | | [address] | [address] [place], | Deviated nasal | | | | [place], [place] | [place] [address] | septum; Hypertrophy | | | | [address] | [phone] | of nasal turbinates; | | | | [phone] | | Neoplasm of | | | [...]
--- OUTSIDE RECORDS SUMMARY | ~2019-02-15 | XMS | Encounter Summary ---
Demographics + + + | Address | [address] | | | [place] [address] | + + + | Home Phone [...] + + + | Author | [facility] | | | and [place] | + + + | Organization | [facility] | | | [...] Providers + +------+ + | Care Supervisor Fish Hatchery Name | Role | Phone | + [...] failure, | [address]D [address] | | | | | unspecified | [address] | [place], | | | | | HF | [place] | [place] | | | | | chronicity, | [place], [place] | [address] | | | | | unspecified | [address] | Phone: | | | | | heart | Phone: | [phone] | | | | | failure type | [phone] | Fax: | | | | | ([facility]) | [phone] | [phone] | | | | | Procedures | | | | | | | MARKET INVESTIGATOR | | | +--------+ + + + [...] HF | | | | [address] [place] | [address] [place] | chronicity, | | | | [place] [address] | [place] [address] | unspecified heart | | | | [phone] | [phone] | failure type (HCC) | | | [...]
--- OUTSIDE RECORDS SUMMARY | ~2019-02-15 | XMS | Encounter Summary ---
Demographics + + + | Address | [address] | | | [place] [address] | + + + | Home Phone | | + + + | Preferred Language | Unknown | + + + | Marital Status | Single | + + + | Evangelical Affiliation | 1041 | + + + | Race | Unknown | + + + | Ethnic Group | Unknown | + + + Author + + + | Author | [facility] | | | and [place] | + + + | Organization | [facility] | | | [...] Team Providers + +------+ + | Care Creative Consultant Name | Role | Phone | [...] | Deviated nasal | | | | [place], [place] | [place] [address] | septum; Hypertrophy | | | | [address] | [phone] | of nasal turbinates; | | | | [phone] | | Neoplasm of | | | [...]
--- OUTSIDE RECORDS SUMMARY | ~2019-02-15 | XMS | Encounter Summary ---
Demographics + + + | Address | [address] | | | [place] [address] | + + + | Home Phone [...] Team Providers + +------+ + | Care Netsuite Developer Name | Role | Phone | + [...] | | Neoplasm of | | [place] [address] | | | | | uncertain | | Phone: | | | | | behavior of | | [phone] | | | | | skin | | Fax: | | | | | Procedures | | [phone] | | | | | [place] EXCISION | | | | | | | TURBINATE,BECERRIL | | | | | | | BMUCOUS [place] | | | | | | | REPAIR OF | | | | | | | NASAL SEPTUM | | | | | | | [place] EXC | | | | | | [...] + + | 09/07/ | Hospital | [facility] | Jose Riojas MD | | | 2019 | Encounter | MED CTR OR INTRA OP | [address] [facility] | | | | | [address] | [address] [place], | | | | | [place], [place] | [place] [address] | | | | | [address] | [phone] | | | | | [phone] | | | +--------+ + + + [...]
--- OUTSIDE RECORDS SUMMARY | ~2019-02-15 | XMS | Encounter Summary ---
Demographics + + + | Address | [address] | | | [place] [address] | + + + | Home Phone | | + + + | Preferred Language | Unknown | + + + | Marital Status | Single | + + + | Pentecostal Affiliation | [id number] | + + + | Race | Unknown | + + + | Ethnic Group | Unknown | + + + Author + + + | Author | [facility] | | | and [place] | + + + | Organization | [facility] | | | [...] Team Providers + +------+ + | Care Back End Developer Name | Role | Phone | + +------+ + | Julita Cabral PA-C | PCP | | + +------+ + Encounter Details +--------+ + + + + | Date | Type | Department | Care Team | Description | +--------+ + + + + | 02/18/ | Orders Only | [facility] | [place]ika [place], | | | 2015 | | [address] | [place] [address] | | | | | [address] | [address] | | | | | [place] | [place] [address] | | | | | [address] | [phone] | | | | | [phone] | | | +--------+ + + + [...] | + +--------+ + + + | ECHO INTERPRETATION | Routin | 02/19/2016 | | Results for this | | OF OUTSIDE FILMS | e | 9:47 AM | | procedure are in the | | | | PST | | results section. | + +--------+ + + + documented in this encounter Results ECHO Interpretation of Outside Films (02/19/2016 9:47 AM PST) + + | Specimen | + + | | + + + + + | Impressions | Performed At | + + + | 1. This was a technically difficult study with suboptimal views. 2. | | | The left ventricle appears appears to be normal in size and | | | hyperdynamic systolic function EF >70%. 3. The right ventricle is | | | normal in size with hyperdynamic function. 4. Poor visualization, | | | grossly normal aortic and mitral valve. 5. There is no pericardial | | | effusion with anterior fat pad. | | + + + + + + | Narrative | Performed At | + + + | Patient Name: Tiny Campuzano Date of : 1975 | | | Performing Physician: Rochelle Parker | | | MD | | | INDICATIONS Dyspnea CONCLUSIONS 1. | | | This was a technically difficult study with suboptimal views. 2. The | | | left ventricle appears appears to be normal in size and hyperdynamic | | | systolic function EF >70%. 3. The right ventricle is normal in | | | size with hyperdynamic function. 4. Poor visualization, grossly | | | normal aortic and mitral valve. 5. There is no pericardial effusion | | | with anterior fat pad. FINDINGS -------- ECG rhythm: Sinus | | | rhythm. Borderline tachycardia. ECG rhythm: Resting tachycardia | | | (HR>100bpm). Study: A 2-dimensional transthoracic echocardiogram with | | | m-mode, spectral and color flow Doppler was perfomed. Study: This | | | was a technically difficult study with suboptimal views. Study: Body | | | habitus. Left Ventricle: Left ventricular systolic function is | | | hyperdynamic with an estimated EF of >70%. Left Ventricle: The left | | | ventricle cavity size is normal. Left Ventricle: Left ventricular | | | wall thickness is normal. Right Ventricle: The right ventricle is | | | normal in size. Right Ventricle: The right ventricular systolic | | | function is hyperdynamic. Left Atrium: The left atrium is mildly | | | enlarged. Left Atrium: Not viewed in 2 chamber view. Right Atrium: | | | The right atrium is normal in size. Aortic Valve: The aortic valve | | | was not well visualized. Aortic Valve: Grossly normal. Mitral Valve: | | | The mitral valve is normal. Tricuspid Valve: The tricuspid valve was | | | not well visualized. Tricuspid Valve: The poor TR signal prevents | | | accurate estimation of pulmonary pressures. Pulmonic Valve: The | | | pulmonic valve was not well visualized. Pulmonic Valve: Poor | | | visualization of cardiac valves. Pericardium: There is no pericardial | | | effusion with anterior fat pad. Pericardium: No pleural effusion | | | seen. IVC/Hepatic Veins: The IVC was not well visualized. | | | MEASUREMENTS Ao asc: 2.70 cm Ao sinus: 2.81 cm | | | Ao st junct: 2.45 cm IVC: 1.86 cm LA Diam: 4.55 cm | | | EDV(Teich): 186.09 ml IVSd: 0.87 cm LVIDd: 6.08 cm LVPWd: | | | 0.96 cm LVOT Area: 4.23 cm2 LVOT Diam: 2.32 cm %FS: | | | 29.55 % EF(Teich): 55.63 % ESV(Teich): 82.55 ml LVIDs: | | | 4.28 cm SV(Teich): 103.53 ml RV Major: 7.81 cm RVIDd: 3.22 | | | cm LAAs A4C: 19.17 cm2 LAESV A-L A4C: 58.05 ml LALs A4C: | | | 5.37 cm RAAs: 9.50 cm2 RAESV A-L: 20.91 ml RAESV MOD: | | | 20.37 ml RALs: 3.66 cm Ao Diam: 3.43 cm Ao/LA: 0.63 LA | | | Diam: 5.42 cm LA/Ao: 1.57 MV A Finn: 1.26 m/s MV DecT: | | | 223.78 ms MV E Finn: 1.08 m/s MV E/A Ratio: 0.85 MV PHT: | | | 64.89 ms MVA By PHT: 3.38 cm2 Septal e': 0.09 m/s Septal | | | E/e': 11.88 Aerospace Technician: EMMANUEL Authenticated by: Keith | | | Rochelle SPARKS Report Date/Time: -- | | + + + + + | Procedure Note | + + | Mansoor Graf - 11/04/2018 10:40 PM PDT Patient Name: Bertha Campuzano | | of : 1975 Performing Physician: Rochelle Parker | | MD INDICATIONS D | | yspnea CONCLUSIONS 1. This was a technically difficult study with suboptimal | | views.2. The left ventricle appears appears to be normal in size and hyperdynamic | | systolic function EF >70%.3. The right ventricle is normal in size with hyperdynamic | | function.4. Poor visualization, grossly normal aortic and mitral valve.5. There is no | | pericardial effusion with anterior fat pad. FINDINGS--------ECG rhythm: Sinus rhythm. | | Borderline tachycardia.ECG rhythm: Resting tachycardia (HR>100bpm).Study: A | | 2-dimensional transthoracic echocardiogram with m-mode, spectral and color flow Doppler | | was perfomed.Study: This was a technically difficult study with suboptimal views.Study: | | Body habitus.Left Ventricle: Left ventricular systolic function is hyperdynamic with an | | estimated EF of >70%.Left Ventricle: The left ventricle cavity size is normal.Left | | Ventricle: Left ventricular wall thickness is normal.Right Ventricle: The right | | ventricle is normal in size.Right Ventricle: The right ventricular systolic function is | | hyperdynamic.Left Atrium: The left atrium is mildly enlarged.Left Atrium: Not viewed in | | 2 chamber view.Right Atrium: The right atrium is normal in size.Aortic Valve: The aortic | | valve was not well visualized.Aortic Valve: Grossly normal.Mitral Valve: The mitral | | valve is normal.Tricuspid Valve: The tricuspid valve was not well visualized.Tricuspid | | Valve: The poor TR signal prevents accurate estimation of pulmonary pressures.Pulmonic | | Valve: The pulmonic valve was not well visualized.Pulmonic Valve: Poor visualization of | | cardiac valves.Pericardium: There is no pericardial effusion with anterior fat | | pad.Pericardium: No pleural effusion seen.IVC/Hepatic Veins: The IVC was not well | | visualized. MEASUREMENTS Ao asc: 2.70 cmAo sinus: 2.[address] junct: | | 2.45 cmIVC: 1.86 cmLA Diam: 4.55 cmEDV(Teich): 186.09 mlIVSd: 0.87 cmLVIDd: | | 6.08 cmLVPWd: 0.96 cmLVOT Area: 4.23 [id number] Diam: 2.32 cm%FS: 29.55 %EF(Teich): | | 55.63 %ESV(Teich): 82.55 mlLVIDs: 4.28 cmSV(Teich): 103.53 mlRV Major: 7.81 | | cmRVIDd: 3.22 cmLAAs A4C: 19.17 [id number] A-L A4C: 58.05 mlLALs A4C: 5.37 cmRAAs: | | 9.50 [id number] A-L: 20.91 mlRAESV MOD: 20.37 mlRALs: 3.66 cmAo Diam: 3.43 | | cmAo/LA: 0.63LA Diam: 5.42 cmLA/Ao: 1.57MV A Finn: 1.26 m/sMV DecT: 223.78 msMV | | E Finn: 1.08 m/sMV E/A Ratio: 0.85MV PHT: 64.89 msMVA By PHT: 3.38 [id number] e': | | 0.09 m/sSeptal E/e': 11.88 Aerospace Technician: JEFFERSONuthenticated by: Rochelle Parker | | MDReport Date/Time: -- IMPRESSION: 1. This was a technically difficult study with | | suboptimal views.2. The left ventricle appears appears to be normal in size and | | hyperdynamic systolic function EF >70%.3. The right ventricle is normal in size with | | hyperdynamic function.4. Poor visualization, grossly normal aortic and mitral valve.5. | | There is no pericardial effusion with anterior fat pad. | |Mitral Valve: The mitral valve is normal. | |Tricuspid Valve: The tricuspid valve was not well visualized. | |Tricuspid Valve: The poor TR signal prevents accurate estimation of pulmonary pressures. | |Pulmonic Valve: The pulmonic valve was not well visualized. | |Pulmonic Valve: Poor visualization of cardiac valves. | |Pericardium: There is no pericardial effusion with anterior fat pad. | |Pericardium: No pleural effusion seen. | |IVC/Hepatic Veins: The IVC was not well visualized. | | | |MEASUREMENTS | | | |Ao asc: 2.70 cm | |Ao sinus: 2.81 cm | |Ao st junct: 2.45 cm | |IVC: 1.86 cm | |LA Diam: 4.55 cm | |EDV(Teich): 186.09 ml | |IVSd: 0.87 cm | |LVIDd: 6.08 cm | |LVPWd: 0.96 cm | |LVOT Area: 4.23 cm2 | |LVOT Diam: 2.32 cm | |%FS: 29.55 % | |EF(Teich): 55.63 % | |ESV(Teich): 82.55 ml | |LVIDs: 4.28 cm | |SV(Teich): 103.53 ml | |RV Major: 7.81 cm | |RVIDd: 3.22 cm | |LAAs A4C: 19.17 cm2 | |LAESV A-L A4C: 58.05 ml | |LALs A4C: 5.37 cm | |RAAs: 9.50 cm2 | |RAESV A-L: 20.91 ml | |RAESV MOD: 20.37 ml | |RALs: 3.66 cm | |Ao Diam: 3.43 cm | |Ao/LA: 0.63 | |LA Diam: 5.42 cm | |LA/Ao: 1.57 | |MV A Finn: 1.26 m/s | |MV DecT: 223.78 ms | |MV E Finn: 1.08 m/s | |MV E/A Ratio: 0.85 | |MV PHT: 64.89 ms | |MVA By PHT: 3.38 cm2 | |Septal e': 0.09 m/s | |Septal E/e': 11.88 | | | |Aerospace Technician: EMMANUEL | |Authenticated by: Rochelle Parker MD | |Report Date/Time: -- | | | |IMPRESSION: | |1. This was a technically difficult study with suboptimal views. | |2. The left ventricle appears appears to be normal in size and hyperdynamic systolic functi on EF >70%. | |3. The right ventricle is normal in size with hyperdynamic function. | |4. Poor visualization, grossly normal aortic and mitral valve. | |5. There is no pericardial effusion with anterior fat pad. | + + documented in this encounter Visit Diagnoses Not on filedocumented in this encounter"
--- OUTSIDE RECORDS SUMMARY | ~2019-02-15 | XMS | Encounter Summary ---
Demographics + + + | Address | [address] | | | [place] [address] | + + + | Home Phone [...] Team Providers + +------+ + | Care Furnace Keeper Name | Role | Phone | + [...] + + | 04/23/ | Hospital | [facility] | James Yanez, | Decompensated | | 2019 - | Encounter | MED [facility] | [address] | hepatic cirrhosis | | | | [address] [place] | [place], [place] | (HCC) (Primary Dx); | | 05/06/ | | [place] [address] | [id number] | Hypervolemia, | | 2019 | | [phone] | | unspecified | | | | | Pau Hernandez MD | hypervolemia type; | | | | | [address] | Acute systolic | | | | | [place], [place] | congestive heart | | | | | [address] | failure (HCC); 3+ | | | | | | pitting edema; | | | | | Adali Morrow MD | Abdominal pain, | | | | | [address] | chronic, epigastric; | | | | | [place], [place] | Anasarca; Alcoholic | | | | | [address] | cirrhosis of liver | | | [...] | | | | | | involving naknek | | | | | | coronary artery, | | | | | | angina presence | | | | | | unspecified, | | | | | | unspecified whether | | | | | | naknek or | | | | | | transplanted heart; | | | | | | Thrombocytopenia | | | | | | ([facility]); Anemia, | | | | | | unspecified type; | | | | | | Morbid obesity | | | | | | ([facility]); Acute on | | | | | | chronic systolic | | | | | | (congestive) heart | | | | | | failure ([facility]) | +--------+ + + + [...] might be differen t from the original. [place], [place] HOSPITALIST DISCHARGE SUMMARY Pt. Name/Age/: Tiny Campuzano [...] aka: LASIX metroNIDAZOLE 500 MG tablet aka: YL HOSPITAL COURSE: Please refer to the H&P [...] liver and heart failure. Echo 03/19/18 at [facility] showed EF 45% with apical WMA.Patient did also have stress brenda t at that time that was abnormal but medical management was pursued - sub optimal diuresis with IV lasix initially - transitioned to IV Bumex 04/28 from furosemide - notable improvement in diuresis and weight loss with increased dose of IV Bumex to 2 mg t wice a day - net negative 12 L [...] week . Specialty: Internal Medicine Contact information: [address] [place] [address] Condition: Patient being discharged with condition improved Diet: 2 gm sodium diet Greater than 30 minutes were spent on discharge and coordination of post-hospital care. Electronically signed by: Delia Parson MD, 05/06/2018 20:53 [facility] Portions of this chart may have been created with Mobile Event Guide voice recognition software. Occasi onal wrong-word or sound-alike substitutions may have occurred due to the inherent munoz itations of voice recognition software. Please read the chart carefully and recognize, using context, where these substitutions have occurred documented in this encounter Discharge Instructions AttachmentsThe following attachments cannot be sent through Care Everywhere.Cirrhosis of th e Liver, Discharge Instructions for (Mohawk)documented in this encounter Medications at Time of [...] mg | | | | 19 | | | tablet | | | | | | + + + +---------+ + + | atorvaSTATin | Take 40 mg by mouth | | 0 | | | | (LIPITOR) 40 mg | nightly. | | | | | | tablet [...] | 1 | 05/06/19 | | | (OSITO-MACK M20) 20 | mouth Daily. | tablet [...] might be differen t from the original. [facility] [place] HOSPITALIST PROGRESS NOTE Patient: Tiny Campuzano : 1975: Age: 42 y.o. MedRec: [id number] Admission date: 04/23/2018 Hospital day # : [...] liver and heart failure. Echo 03/19/18 at [facility] showed EF 45% with apical WMA. Have [...] Pau Hernandez MD 2 mg at 04/17 08 chlorhexidine (HIBICLENS) 4 % liquid Topical Daily [...] 0.5 inch 0.5 inch Topical Q6H PRN Talya Rivera D 0.5 inch at 05/01/18 1738 ondansetron (ZOFRAN ODT) disintegrating tablet 4 mg 4 mg Oral Q6H PRN Pau Hernandez MD 4 mg at 05/04/18 0827 ondansetron (ZOFRAN) injection 4 mg 4 mg Intravenous Q6H PRN jJ Lundberg MD 4 mg at 04/28/18 0611 [...] room air Delia Parson MD 05/05/2018 13:50 [facility] - 05/04/2018 6:03 PM PSTFormatting of this note might be different from the origin al. [facility] [place] HOSPITALIST PROGRESS NOTE Patient: Tiny Campuzano : 1975: Age: 42 y.o. MedRec: [id number] Admission date: 04/23/2018 Hospital day # : [...] liver and heart failure. Echo 03/19/18 at [facility] showed EF 45% with apical WMA. Have [...] D Jj Lundberg MD 0.5 mg at 05/04/18 09 And [...] 0.5 inch 0.5 inch Topical Q6H PRN Talya Rivera D 0.5 inch at 05/01/18 1738 [...] room air Delia Parson MD 05/04/2018 18:04 [facility] Danielle Vera RD - 05/04/2018 9:13 AM PSTIntake variable 25-90%. Experiencing occasional nausea with vom iting. Monitor intake and provide preferences as possible within diet and fluid modification . Pau Thomas MD - 3:05 PM PST [facility] [place] HOSPITALIST PROGRESS NOTE Patient: Tiny Campuzano : 1975: Age: 42 y.o. MedRec: [id number] Admission date: 04/23/2018 Hospital day # : [...] liver and heart failure. Echo 03/19/18 at [facility] showed EF 45% with apical WMA. Have [...] Lundberg MD 40 mg at 04/16 10/01 2200 bumetanide (BUMEX) injection 2 mg 2 mg [...] 0.5 inch 0.5 inch Topical Q6H PRN Talya Rivera D 0.5 inch at 05/01/18 1738 [...] room air Pau Hernandez MD 05/03/2018 15:05 [facility] leming, Benjie Connell N - 05/02/2018 2:31 PM PSTReport received, from FREYA Estrada. Pt transferred to [facility] in stab le condition. ar Pau echols MD - 05/02/2018 12:38 PM PST [facility] [place] HOSPITALIST PROGRESS NOTE Patient: Tiny Campuzano : 1975: Age: 42 y.o. MedRec: [id number] Admission date: 04/23/2018 Hospital day # : [...] liver and heart failure. Echo 03/19/18 at [facility] showed EF 45% with apical WMA. Transitioned [...] aware that we this is not a intermission coordinator medication) today to see if this helps. [...] 0.5 inch 0.5 inch Topical Q6H PRN Talya Rivera D 0.5 inch at 05/01/18 1738 [...] age undetermined Confirmed by BONNIE SPARKS, EREN ([id number]) on 05/02/2018 8:38:52 AM Basic Metabolic Panel [...] room air Pau Hernandez MD 05/02/2018 12:39 [facility] Mary Torres RN - 0 05/01/2018 7:42 PM PSTAt approximately 1730 pt c/o deep/sharp chest pain. She was observed c lutching her chest, taking deep breaths. Rated her pain 6/10. VS taken, within parameters. P rovider notified. PRN nitro paste given. EKG ordered. No significant changes to EKG from pre vious, per MD. Pt reports pain decreased to 4/10. Pain [...] note might be different from the original. [facility] [place] HOSPITALIST PROGRESS NOTE Patient: Tiny Campuzano : 1975: Age: 42 y.o. MedRec: [id number] Admission date: 04/23/2018 Hospital day # : [...] liver and heart failure. Echo 03/19/18 at [facility] showed EF 45% with apical WMA. Transitioned [...] Daily Jj Lundberg MD 81 mg at 05/01/18912 atorvaSTATin (LIPITOR) tablet 40 mg 40 mg Oral Nightly Jj Lundberg MD 40 mg at 04/16 bumetanide (BUMEX) injection 2 mg 2 mg Intravenous BID Pau Hernandez MD 2 mg at 04/16 chlorhexidine (HIBICLENS) 4 % liquid Topical Daily Jj Lundberg MD fluticasone (FLONASE) 50 mcg/nasal spray 2 spray 2 spray Each Nare Daily Arvind peck MD 2 spray at 05/01/18918 hydrOXYzine pamoate (VISTARIL) capsule 25 mg 25 mg Oral Q6H PRN Jj Lundberg MD 25 m g at 05/01/18 0916 lactulose liquid 20 g 20 g Oral Daily Jj Lundberg MD 20 g at 05/01/18 09 magnesium oxide (MAG-OX) tablet 400 mg 400 mg Oral BID Jj Lundberg MD 400 mg at 09 metoclopramide (REGLAN) 5 mg/mL injection 10 mg 10 mg Intravenous Q6H PRN Jj Lundberg MD nitroglycerin (NITRO-BID) 2% ointment 0.5 inch 0.5 inch Topical Q6H PRN Talya Rivera ondansetron (ZOFRAN ODT) disintegrating tablet 4 [...] room air Pau Hernandez MD 05/01/2018 12:13 [facility] Pau Thomas MD - 2:22 PM PST [facility] [place] HOSPITALIST PROGRESS NOTE Patient: Tiny Campuzano : 1975: Age: 42 y.o. MedRec: [id number] Admission date: 04/23/2018 Hospital day # : [...] liver and heart failure. Echo 03/19/18 at [facility] showed EF 45% with apical WMA. Transitioned [...] 0.5 inch 0.5 inch Topical Q6H PRN Talya Rivera ondansetron (ZOFRAN ODT) disintegrating tablet 4 [...] room air Pau Hernandez MD 04/30/2018 14:22 [facility] Pau Thomas MD - 12:32 PM PST [facility] [place] HOSPITALIST PROGRESS NOTE Patient: Tiny Campuzano : 1975: Age: 42 y.o. MedRec: [id number] Admission date: 04/23/2018 Hospital day # : [...] liver and heart failure. Echo 03/19/18 at [facility] showed EF 45% with apical WMA. Transitioned [...] Jj Lundberg MD 0.5 mg at 04/29/18 09 And albuterol 5 mg/mL concentrated nebulizer [...] Hernandez MD 1 mg at 04/16 07/02 08 chlorhexidine (HIBICLENS) 4 % liquid Topical Daily [...] Jj Lundberg MD 20 g at 04/29/18 08 magnesium oxide (MAG-OX) tablet 400 mg 400 mg Oral BID Jj Lundberg MD 400 mg at 0822 metoclopramide (REGLAN) 5 mg/mL injection 10 mg 10 mg Intravenous Q6H PRN Jj Lundberg MD nitroglycerin (NITRO-BID) 2% ointment 0.5 inch 0.5 inch Topical Q6H PRN Talya Rivera ondansetron (ZOFRAN ODT) disintegrating tablet 4 [...] rate 0L/min Pau Hernandez MD 04/29/2018 12:33 [facility] Pau Thomas MD - 4:52 PM PST [facility] [place] H[facility]PITAL[facility] PROGRESS [place] Patient: Tiny Campuzano : 1975: Age: 42 y.o. MedRec: [id number] Admission date: 04/23/2018 Hospital day # : [...] liver and heart failure. Echo 03/19/18 at [facility] showed EF 45% with apical WMA. Our [...] waiting for assistance to go to the [facility]. ROS was performed and was [...] D Jj Lundberg MD 0.5 mg at 04/28/18913 And albuterol 5 mg/mL concentrated nebulizer solution [...] Jj Lundberg MD 81 mg at 04/28/18 08 atorvaSTATin (LIPITOR) tablet 40 mg 40 mg Oral Nightly Jj Lundberg MD 40 mg at 04/16 bumetanide (BUMEX) injection 0.5 mg 0.5 mg Intravenous BID Pau Hernandez MD 0.5 mg a t 04/28/18825 chlorhexidine (HIBICLENS) 4 % liquid Topical Daily [...] 0.5 inch 0.5 inch Topical Q6H PRN Talya Rivera ondansetron (ZOFRAN ODT) disintegrating tablet 4 [...] rate 0L/min Pau Hernandez MD 04/28/2018 16:52 [facility] arter, MD Pau - 02/2019 3:36 PM PST [facility] [place] HOSPITALIST PROGRESS NOTE Patient: Tiny Campuzano : 1975: Age: 42 y.o. MedRec: [id number] Admission date: 04/23/2018 Hospital day # : [...] liver and heart failure. Echo 03/19/18 at [facility] showed EF 45% with apical WMA. Our [...] Recent abnormal stress test Performed 03/22/18 at [facility] with the following results: Myocardial Perfusion Imaging [...] 0.5 inch 0.5 inch Topical Q6H PRN Talya Rivera ondansetron (ZOFRAN) injection 4 mg 4 [...] rate 0L/min Pau Hernandez MD 04/27/2018 15:36 [facility] Ana Dumont, armD - 04/27/2018 2:47 PM PST PHARMACY [...] or bottles X Pharmacy list names: [facility] [place] [facility] X [place] TOXICOLOGIST (Prescription Monitoring Program) X [employer] insurance reported [...] following medications in the ER on 04/16/18. [facility], patient's pharmacy was closed for the weekend so she didn't start them until 04/19/18. Ciprofloxacin 500 mg tab- 1 tab by mouth twice daily Metronidazole 500 mg tab- 1 tab by mouth three times daily Patient is concerned about how many medications she is taking. She is wondering if she benjie greene needs to take all of these. 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 Taking Evelyn Brown MD albuterol 90 mcg/puff inhaler Inhale 1-2 puffs into the lungs every 3 hours as needed for Shortness of Breath. Taking Historical MD Kevin ascorbic acid (VITAMIN C) 500 mg tablet Take 500 mg by mouth Daily. With Iron Taking Hist orical MD Kevin aspirin 81 mg chewable tablet Take 81 mg by mouth Daily. Taking Differently Historical Pr MD braulio atorvaSTATin (LIPITOR) 40 mg tablet Take 40 mg by mouth nightly. Taking Historical Provid MD cisco ciprofloxacin (CIPRO) 500 mg tablet Take 500 mg by mouth 2 times daily. Taking Historical MD Kevin ferrous sulfate 325 mg tablet Take 325 mg by mouth daily (with breakfast). With Vitamin C Taking Evelyn Brown MD fluticasone (FLONASE) 50 mcg/nasal spray 2 sprays by Nasal route Daily. Taking Historical MD Kevin furosemide (LASIX) 40 mg tablet Take 40 mg by mouth Daily. Taking Evelyn Brown MD hydrOXYzine pamoate (VISTARIL) 25 mg capsule Take 25 mg by mouth every 6 hours as needed f or Anxiety. Taking Differently Evelyn Brown MD lactulose 10 g/15 mL solution Take 20 g by mouth 4 times daily. Taking Differently Histor ical MD Kevin lidocaine (LIDODERM) 5% patch Place 1 patch onto the skin Daily. Apply for 12 hours, then remove for 12 hours. Taking Differently Evelyn Brown MD magnesium oxide (MAG-OX) 400 mg tablet Take 400 mg by mouth 2 times daily. Taking Differen tly Historical Provider, metoclopramide (REGLAN) 10 mg tablet Take 10 mg by mouth 4 times daily as needed for Nause a or Vomiting. Taking Historical Provider, metoprolol succinate (TOPROL-XL) 25 mg 24 hr tablet Take 25 mg by mouth Daily. Taking His torical Provider, metroNIDAZOLE (FLAGYL) 500 MG tablet Take 500 mg by mouth 3 times daily. Taking Historica l ProviderMD mometasone-formoterol (DULERA) 200-5 mcg/puff inhaler Inhale 2 puffs into the lungs 2 time s daily. Taking Historical Provider, naltrexone (REVIA) 50 mg tablet Take 50 mg by mouth Daily. Taking Historical Provider, ondansetron (ZOFRAN) 4 mg tablet Take 4 mg by mouth every 6 hours as needed for Nausea or Vomiting. Taking Historical ProviderMD oxyCODONE-acetaminophen (PERCOCET) 7.5-325 mg per tablet Take 1 tablet by mouth EVERY 4 TO 6 HOURS NEEDED for Pain. Taking Keaton Chavis pantoprazole (PROTONIX) 40 mg tablet Take 40 mg by mouth every morning (before breakfast). Not Taking Historical Provider, potassium chloride (KLOR-CON M20) 20 mEq ER tablet Take 20 mEq by mouth Daily. Taking His torical Provider, spironolactone (ALDACTONE) 25 mg tablet Take 50 mg by mouth Daily. Taking Historical Prov MD tseve Medication review performed and electronically signed by Maria A Mcnulty, Lead Manufacturing Engineer 02/2019 13:04 Reviewed by Ana Lucio PharmD 04/27/2018 14:39 iJj bennett MD - 04/26/2018 11:09 AM PST [facility] [place] HOSPITALIST PROGRESS NOTE Patient: Tiny Campuzano : 1975: Age: 42 y.o. MedRec: [id number] Admission date: 04/23/2018 Hospital day # : [...] Echo 02/2018 and stress study 03/2018 at [facility]. ED course: NO O2 need, good UOP after lasix in ER -Studies: BNP 340/ Ammonia 44 CXR pulm edema, CT a/p without enough ascities for paracentes is -Treatment: lasix 40 / dialudid 1 mg x 2 Relevant Chart Review 03/15/2018- 04/01/2018 TRANSFER FROM [facility] TO [place], Hospitalized [facility] for cir rhosis r/o cholecystitis work up, deemed to not have acute cholecystitis, transferred from s urgery service to internal medicine service for orthostatic hypotension thought to be due to overdiuresis. 04/2015 [facility] EGD Upper endoscopy was remarkable for a [...] Day: 4 Chronic anemia w/ Hg drop 04/24, stable [...] 45% presumed CAD myocardiac perfusion scan in [facility] Asa/statin/metoprolol. hold lisinopril while diuresis Prn [...] ambulating to the bathroo m voiding declined blank due to prior UTIs, tolerated diet, no [...] 20 mg Intravenous BID (8 and 16) Talya Avery 20 mg at 04/26/18 0935 gabapentin [...] 0.5 inch 0.5 inch Topical Q6H PRN Talya Rivera ondansetron (ZOFRAN) injection 4 mg 4 mg Intravenous Q6H PRN Jj Lundberg MD 4 mg at 04/24/18 0625 pantoprazole (PROTONIX) DR tablet 40 mg 40 mg Oral BID AC Jj Lundberg MD 40 mg at 0 04/26/18 0621 Current Infusions: Jj Lundberg MD 04/26/2018 11:09 [facility] im, MD Jj - 04/25 12:48 PM PST [facility] [place] HOSPITALIST PROGRESS NOTE Patient: Tiny Campuzano : 1975: Age: 42 y.o. MedRec: [id number] Admission date: 04/23/2018 Hospital day # : [...] Echo 02/2018 and stress study 03/2018 at [facility]. ED course: NO O2 need, good UOP after lasix in ER -Studies: BNP 340/ Ammonia 44 CXR pulm edema, CT a/p without enough ascities for paracentes is -Treatment: lasix 40 / dialudid 1 mg x 2 Relevant Chart Review 03/15/2018- 04/01/2018 TRANSFER FROM [facility] [place], Hospitalized [facility] for cir rhosis r/o cholecystitis work up, deemed to not have acute cholecystitis, transferred from urgery service to internal medicine service for orthostatic hypotension thought to be due to overdiuresis. 04/2015 [facility] EGD Upper endoscopy was remarkable for a [...] 45% presumed CAD myocardiac perfusion scan in [facility] Asa/statin/metoprolol. hold lisinopril while diuresis Trial [...] on exertion, + BM, ambulating to the [facility] voiding declined blank due to prior UTIs, tolerated diet, no [...] Nightly Jj Lundberg MD 40 mg at 12/02 [START ON 04/26/2018] furosemide (LASIX) injection 20 [...] 0.5 inch 0.5 inch Topical Q6H PRN Talya Rivera ondansetron (ZOFRAN) injection 4 mg 4 mg Intravenous Q6H PRN Jj Lundberg MD 4 mg at 04/24/18 0625 pantoprazole (PROTONIX) DR tablet 40 mg 40 mg Oral BID AC Jj Lundberg MD 40 mg at 0 04/25/18 0618 Current Infusions: Jj Lundberg MD 04/25/2018 12:48 [facility] im, MD Jj - 04/24 10:54 AM PST [facility] [place] HOSPITALIST PROGRESS NOTE Patient: Tiny Campuzano : 1975: Age: 42 y.o. MedRec: [id number] Admission date: 04/23/2018 Hospital day # : [...] Echo 02/2018 and stress study 03/2018 at [facility]. ED course: NO O2 need, good UOP after lasix in ER -Studies: BNP 340/ Ammonia 44 CXR pulm edema, CT a/p without enough ascities for paracentes is -Treatment: lasix 40 / dialudid 1 mg x 2 Relevant Chart Review 03/15/2018- 04/01/2018 TRANSFER FROM [facility] TO [place], Hospitalized [facility] for cir rhosis r/o cholecystitis work up, deemed to not have acute cholecystitis, transferred from [facility] service to internal medicine service for orthostatic hypotension thought to be due to overdiuresis. 04/2015 [facility] EGD Upper endoscopy was remarkable for a [...] 45% presumed CAD myocardiac perfusion scan in [facility] Asa/statin/metoprolol. hold lisinopril while diuresis Trial [...] ambulating to the bathroom vo iding declined blank due to prior UTIs, tolerated diet, no [...] ECG No previous ECGs available Confirmed by BONNIE SPARKS, EREN ([id number]) on 04/24/2018 7:32:37 AM CBC with Differential [...] Jj Lundberg MD 40 mg at 11/01 213 heparin 5,000 units/mL injection 5,000 Units 5,000 [...] Current Infusions: Jj Lundberg MD 04/24/2018 10:54 [facility] documented in this encou nter Plan of Treatment + +------+--------+ + + [...] | EXTRA LAVENDER TOP | Routin | 05/06/2018 | | Results [...] | EXTRA LAVENDER TOP | Routin | 05/02/2018 | | Results [...] | | n - | | | 02/08/ | | | 2019 | | | 11:40 | | | [...] | | | FICATI | | | ON?02/ | | | 08/201 | | | 9 | | | 11:35? | | | SHEOSH | | | IPS, | | | MARGAR | | | ET | | | L?MRN: | | | | | | [id number] | | | [id number] | | | riteri | | | [...] | | | St. | | | [place] | | | y | | | [...] | | | 541-21 | | | | | | .These | | | [...] | | | erdose | | | 7// | | | 7 | | | 12:00 | | | AM | | | [facility] | | | [place] | | | y | | | [...] | | | St. | | | [place] | | | y | | | [...] | | | St. | | | [place] | | | y | | | [...] | | | 7-8200 | | | 9/20/ | | | 8 | | | 12:00 | | | AM | | | [facility] | | | [place] | | | y | | | [...] | | | St. | | | [place] | | | y | | | [...] | | | St. | | | [place] | | | y | | | [...] | | | St. | | | [place] | | | y H. | | [...] | | | St. | | | [place] | | | y H. | | [...] | | | St. | | | [place] | | | y H. | | [...] | | | St. | | | [place] | | | y H. | | | [place] | | | [place] | | | Emerge | | | ncy | | | Chief | | | Compla | | | int: | | | ABD | | | PAIN | | | Dec 3, | | | 2018 | | | [facility] | | | [place] | | | y H. | | [...] | | | St. | | | [place] | | | y H. | | [...] | | | St. | | | [place] | | | y H. | | [...] | | | St. | | | [place] | | | y H. | | [...] | | | St. | | | [place] | | | y H. | | [...] | | | St. | | | [place] | | | y H. | | [...] | | | St. | | | [place] | | | y H. | | [...] | | | ent/f7 | | | [id number] | | | -[id number] | | | [...] | | | ? | | | 2018 | | | Collec | | | [...] | | | Lavender | | | [facility] | | | Top Tube | [...] [address] | [place] | [phone] | | [facility] | | [address] | | | - LABORATORY | | [...] 12 | 7 - 18 mg/dL | [facility] | | | | | | [facility] | | | | | | MEDICAL | | | | | | CENTER - | | | | | | LABORATORY | | + + + + + + | Creatinine | 1.07 | 0.60 - 1.30 | [facility] | | | | | mg/dL | [facility] | | | | | | MEDICAL | | | | | | CENTER - | | | | | | LABORATORY | | + + + + + + | eGFR if not | 56 (L)Comment: | >=60 | [facility] | | | | GLOMERULAR FILTRATION | mL/min/1.73m2 | [facility] | | | CONGOLESE | RATE,ESTIMATED | | MEDICAL | | | | mL/min/1.56y7Ivaz than | | CENTER - | | [...] | ine Ratio | | | [facility] | | [...] [address] | [place] | [phone] | | [facility] | | [address] | | | - LABORATORY | | [...] | | | Lavender | | | [facility] | | | Top Tube | [...] + | [address] | [address] | [place] | [phone] | | [facility] | | [address] | | | - LABORATORY | | [...] + | [address] | [address] | [place] | [phone] | | [facility] | | [address] | | | - LABORATORY | | [...] | 1.10 | 0.60 - 1.30 | [facility] | [...] mL/min/1.73m2 | [facility] | | | CON[place] | RATE,ESTIMATED | | MEDICAL | | | | mL/min/1.56y5Ondc than | | CENTER - | | [...] | ine Ratio | | | [facility] | | [...] [address] | [place] | [phone] | | [facility] | | [address] | | | - LABORATORY | | [...] + | [address] | [address] | [place] | [phone] | | [facility] | | [address] | | | - LABORATORY | | [...] ST. | [address] | [place], [place] | [phone] | | [facility] | | [address] | | | - LABORATORY | | [...] 9 | 7 - 18 mg/dL | [facility] | | | | | | [facility] | | | | | | MEDICAL | | | | | | CENTER - | | | | | | LABORATORY | | + + + + + + | Creatinine | 1.03 | 0.60 - 1.30 | [facility] | [...] mL/min/1.73m2 | [facility] | | | [place] | RATE,ESTIMATED | | MEDICAL | | | | mL/min/1.52f9Uoaj than | | CENTER - | | [...] [address] | [place] | [phone] | | [facility] | | [address] | | | - LABORATORY | | [...] + | [facility] | [address] | [place] | [phone] | | [facility] | | [address] | | | - LABORATORY | | [...] mL/min/1.73m2 | [facility] | | | [place] | RATE,ESTIMATED | | MEDICAL | | | | mL/min/1.06l5Vbym than | | CENTER - | | [...] 7.9 (L) | 8.3 - 10.5 | [facility] | | | | | mg/dL | [facility] | | | | | | MEDICAL | | | | | | CENTER - | | | | | | LABORATORY | | + + + + + + | Albumin | 2.3 (L) | 3.2 - 5.0 g/dL | [facility] | | | | | | [facility]. [...] [address] | [place] | [phone] | | [facility] | | [address] | | | - LABORATORY | | | | + + + + + CBC with Differential (05/03/2018 5:06 AM PST) + + + + + + | Component | Value | Ref Range | Performed | Pathologist | | | | | At | Signature | + + + + + + | WBC | 7.5 | 4.0 - 11.0 K/uL | [facility] | [facility] | [facility] | [facility]ICAL | | | | | | CENTER - | | | | | | LABORATORY | | + + + + + + | RBC | 3.26 (L) | 3.70 - 5.20 | [facility] | | | | | M/uL | [facility] | [...] | patients, use the | | [facility] | | | s | special [...] ranges: Trim. Absolute (K/uL) Percentage (%) | [facility] | | 1st 0.003-0.091 K/uL 0.0-0.9% 2nd 0.007-0.247 K/uL | [facility] | | 0.1-2.0% 3rd 0.018-0.456 K/uL 0.1-2.0% | - LABORATORY | + + + + + + + + | Performing | Address | City/State/Zipcode | Phone Number | | Organization | | | | + + + + + | [facility] | [address] | [place] | [phone] | | [facility] | | [address] | | | - LABORATORY | | [...] | | | Lavender | | | [facility] | | | Top Tube | [...] + | [facility] | [address] | [place] | [phone] | | [facility] | | [address] | | | - LABORATORY | | [...] ST. | [address] | [place] | [phone] | | [facility] | | [address] | | | - LABORATORY | | [...] | 1.10 | 0.60 - 1.30 | [facility] | | | | | mg/dL | [facility] | | | | | | MEDICAL | | | | | | CENTER - | | | | | | LABORATORY | | + + + + + + | eGFR if not | 54 (L)Comment: | >=60 | [facility] | | | | GLOMERULAR FILTRATION | mL/min/1.73m2 | [facility] | | | [place] | RATE,ESTIMATED | | MEDICAL | | | | mL/min/1.03z9Yodm than | | CENTER - | | [...] | | | | | mg/dL | [facility] | | | | | | MEDICAL [...] [address] | [place] | [phone] | | [facility] | | [address] | | | - LABORATORY | | [...] | | | | EREN NICOLE MD ([id number]) | | | | | | on [...] | 1.15 | 0.60 - 1.30 | [facility] | | | | | mg/dL | [facility] | | | | | | MEDICAL | | | | | | CENTER - | | | | | | LABORATORY | | + + + + + + | eGFR if not | 52 (L)Comment: | >=60 | [facility] | | | | GLOMERULAR FILTRATION | mL/min/1.73m2 | [facility] | | | [place] | RATE,ESTIMATED | | MEDICAL | | | | mL/min/1.99i5Gdoa than | | CENTER - | | [...] | + + + + + | [facility] | [address] | [place] | [phone] | | [facility] | | [address] | | | - LABORATORY | | | | + + + + + CBC with Differential (05/01/2018 5:45 AM PST) + + + + + + | Component | Value | Ref Range | Performed | Pathologist | | | | | At | Signature | + + + + + + | WBC | 7.9 | 4.0 - 11.0 K/uL | [facility] | | | | | [facility] | | | | | | MEDICAL | | | | | | CENTER - | | | | | | LABORATORY | | + + + + + + | RBC | 3.19 (L) | 3.70 - 5.20 | [facility] | | | | | M/uL | [facility] | [...] | Eosinophils | | K/uL | [facility] | [...] Trim. Absolute (K/uL) Percentage (%) | [facility] | | 1st 0.003-0.091 K/uL 0.0-0.9% 2nd 0.007-0.247 K/uL | MEDICAL CENTER | | 0.1-2.0% 3rd 0.018-0.456 K/uL 0.1-2.0% | - LABORATORY | + + + + + + + + | Performing | Address | City/State/Zipcode | Phone Number | | Organization | | | | + + + + + | [facility] | [address] | [place], [place] | [phone] | | [facility] | | [address] | | | - LABORATORY | | | | + + + + + Folate (05/01/2018 5:45 AM PST) + +-------+ + + + | Component | Value | Ref Range | Performed | Pathologist | | | | | At | Signature | + +-------+ + + + | FOLATE | 7.5 | >5.8 ng/mL | [facility] | | | | | [...] [address] | [place] | [phone] | | [facility] | | [address] | | | - LABORATORY | | | | + + + + + Vitamin B-12 (05/01/2018 5:45 AM PST) + + + + + + | Component | Value | Ref Range | Performed | Pathologist | | | | | At | Signature | + + + + + + | VITAMIN | Comment: DEFICIENT: | 180 - 914 pg/mL | [facility] | | | B-12 | <145 | | [facility] | | | | pg/mLINDETERMINATE: | [...] + | [facility] | [address] | [place] | [phone] | | [facility] | | [address] | | | - LABORATORY | | | | + + + + + CBC with Differential (04/30/2018 6:12 AM PST) + + + + + + | Component | Value | Ref Range | Performed | Pathologist | | | | | At | Signature | + + + + + + | WBC | 7.8 | 4.0 - 11.0 K/uL | [facility] | | | | | | [facility] | | | | | | MEDICAL | | | | | | CENTER - | | | | | | LABORATORY | | + + + + + + | RBC | 3.20 (L) | 3.70 - 5.20 | [facility] | | | | | M/uL | [facility] | [...] | Eosinophils | | K/uL | [facility] | [...] ranges: Trim. Absolute (K/uL) Percentage (%) | [facility] | | 1st 0.003-0.091 K/uL 0.0-0.9% 2nd 0.007-0.247 K/uL | [facility] | | 0.1-2.0% 3rd 0.018-0.456 K/uL 0.1-2.0% | - LABORATORY | + + + + + + + + | Performing | Address | City/State/Zipcode | Phone Number | | Organization | | | | + + + + + | [facility] | [address] | [place] | [phone] | | [facility] | | [address] | | | - LABORATORY | | [...] [address] | [place] | [phone] | | [facility] | | [address] | | | - LABORATORY | | [...] 13 | 7 - 18 mg/dL | [facility] | | | | | | [facility] | | | | | | MEDICAL | | | | | | CENTER - | | | | | | LABORATORY | | + + + + + + | Creatinine | 1.40 (H) | 0.60 - 1.30 | [facility] | | | | | mg/dL | [facility] | | | | | | MEDICAL | | | | | | CENTER - | | | | | | LABORATORY | | + + + + + + | eGFR if not | 41 (L)Comment: | >=60 | [facility] | | | | GLOMERULAR FILTRATION | mL/min/1.73m2 | [facility] | | | [place] | RATE,ESTIMATED | | MEDICAL | | | | mL/min/1.87s7Sarx than | | CENTER - | | [...] + | [facility] | [address] | [place] | [phone] | | [facility] | | [address] | | | - LABORATORY | | [...] | Reticulocyt | | M/uL | [facility] | | | e Count | | | MEDICAL | | | | | | CENTER - | | | | | | LABORATORY | | + + + + + + | Immature | 17.10 (H)Comment: Values | 2.30 - 15.90 % | [facility] | | | Reticulocyt | above normal range | | [facility] | | | e Fraction | indicate [...] ST. | [address] | [place], [place] | [phone] | | [facility] | | [address] | | | - LABORATORY | | | | + + + + + Ferritin (04/29/2018 7:31 AM PST) + +-------+ + + + | Component | Value | Ref Range | Performed | Pathologist | | | | | At | Signature | + +-------+ + + + | FERRITIN | 57 | 11 - 307 ng/mL | [facility] | | | | | [...] [address] | [place] | [phone] | | [facility] | | [address] | | | - LABORATORY | | [...] + | [facility] | [address] | [place] | [phone] | | [facility] | | [address] | | | - LABORATORY | | [...] mL/min/1.73m2 | [facility] | | | [place] | RATE,ESTIMATED | | MEDICAL | | | | mL/min/1.82x9Dlnv than | | CENTER - | | [...] | | | | mg/dL | [facility] | | | | [...] ST. | [address] | [place] | [phone] | | [facility] | | [address] | | | - LABORATORY | | | | + + + + + Magnesium (04/28/2018 6:07 AM PST) + +-------+ + + + | Component | Value | Ref Range | Performed | Pathologist | | | | | At | Signature | + +-------+ + + + | Magnesium | 2.1 | 1.8 - 2.5 mg/dL | [facility] [...] [address] | [place] | [phone] | | [facility] | | [address] | | | - LABORATORY | | [...] 10 | 7 - 18 mg/dL | [facility] | | | | | | [facility] | | | | | | MEDICAL | | | | | | CENTER - | | | | | | LABORATORY | | + + + + + + | Creatinine | 1.20 | 0.60 - 1.30 | [facility] | | | | | mg/dL | [facility] | | | | | | MEDICAL | | | | | | CENTER - | | | | | | LABORATORY | | + + + + + + | eGFR if not | 49 (L)Comment: | >=60 | [facility] | | | | GLOMERULAR FILTRATION | mL/min/1.73m2 | [facility] | | | [place] | RATE,ESTIMATED | | MEDICAL | | | | mL/min/1.13f9Snyd than | | CENTER - | | [...] | [address] | [place] | [phone] | | [facility] | | [address] | | | - LABORATORY | | | | + + + + + CBC with Differential (04/28/2018 6:07 AM PST) + + + + + + | Component | Value | Ref Range | Performed | Pathologist | | | | | At | Signature | + + + + + + | WBC | 7.9 | 4.0 - 11.0 K/uL | [facility] | | | | | | [facility] | | | | | | MEDICAL | | | | | | CENTER - | | | | | | LABORATORY | | + + + + + + | RBC | 3.32 (L) | 3.70 - 5.20 | [facility] | | | | | M/uL | [facility] | [...] | Eosinophils | | K/uL | [facility] | [...] ranges: Trim. Absolute (K/uL) Percentage (%) | [facility] | | 1st 0.003-0.091 K/uL 0.0-0.9% 2nd 0.007-0.247 K/uL | [facility] | | 0.1-2.0% 3rd 0.018-0.456 K/uL 0.1-2.0% | - LABORATORY | + + + + + + + + | Performing | Address | City/State/Zipcode | Phone Number | | Organization | | | | + + + + + | [facility] | [address] | [place] | [phone] | | [facility] | | [address] | | | - LABORATORY | | [...] [address] | [place] | [phone] | | [facility] | | [address] | | | - LABORATORY | | [...] 8 | 7 - 18 mg/dL | [facility] | | | | | | [facility] | | | | | | MEDICAL | | | | | | CENTER - | | | | | | LABORATORY | | + + + + + + | Creatinine | 1.11 | 0.60 - 1.30 | [facility] | | | | | mg/dL | [facility] | | | | | | MEDICAL | | | | | | CENTER - | | | | | | LABORATORY | | + + + + + + | eGFR if not | 54 (L)Comment: | >=60 | [facility] | | | | GLOMERULAR FILTRATION | mL/min/1.73m2 | [facility] | | | [place] | RATE,ESTIMATED | | MEDICAL | | | | mL/min/1.85i6Vewv than | | CENTER - | | [...] + | [facility] | [address] | [place] | [phone] | | [facility] | | [address] | | | - LABORATORY | | | | + + + + + CBC no Differential (04/27/2018 6:07 AM PST) + + + + + + | Component | Value | Ref Range | Performed | Pathologist | | | | | At | Signature | + + + + + + | WBC | 8.5 | 4.0 - 11.0 K/uL | [facility] | | | | | | [facility] | | | | | | MEDICAL | | | | | | CENTER - | | | | | | LABORATORY | | + + + + + + | RBC | 3.29 (L) | 3.70 - 5.20 | [facility] | | | | | M/uL | [facility] | [...] | | | Count | | | [facility] | | [...] ST. | [address] | [place] | [phone] | | [facility] | | [address] | | | - LABORATORY | | [...] [address] | [place] | [phone] | | [facility] | | [address] | | | - LABORATORY | | [...] 7 | 7 - 18 mg/dL | [facility] | | | | | | [facility] | | | | | | MEDICAL | | | | | | CENTER - | | | | | | LABORATORY | | + + + + + + | Creatinine | 1.02 | 0.60 - 1.30 | [facility] | | | | | mg/dL | [facility] | | | | | | MEDICAL | | | | | | CENTER - | | | | | | LABORATORY | | + + + + + + | eGFR if not | 59 (L)Comment: | >=60 | [facility] | | | | GLOMERULAR FILTRATION | mL/min/1.73m2 | [facility] | | | [place] | RATE,ESTIMATED | | MEDICAL | | | | mL/min/1.47m6Nneu than | | CENTER - | | [...] + | [facility] | [address] | [place] | [phone] | | [facility] | | [address] | | | - LABORATORY | | | | + + + + + CBC no Differential (04/26/2018 6:38 AM PST) + + + + + + | Component | Value | Ref Range | Performed | Pathologist | | | | | At | Signature | + + + + + + | WBC | 8.4 | 4.0 - 11.0 K/uL | [facility] | | | | | | [facility] | | | | | | MEDICAL | | | | | | CENTER - | | | | | | LABORATORY | | + + + + + + | RBC | 3.22 (L) | 3.70 - 5.20 | [facility] | | | | | M/uL | [facility] | [...] [address] | [place] | [phone] | | [facility] | | [address] | | | - LABORATORY | | | | + + + + + Faraime INR (04/25/2018 5:56 AM PST) + + + + + + | Component | Value | Ref Range | Performed | Pathologist | | | | | At | Signature | + + + + + + | Prothrombin | 18.2 (H) | 11.3 - 13.9 | [facility] | | | Time | | seconds | [facility] | | | | [...] + | [facility] | [address] | [place] | [phone] | | [facility] | | [address] | | | - LABORATORY | | [...] | | | Total | | | [facility] | | [...] [address] | [place] | [phone] | | [facility] | | [address] | | | - LABORATORY | | | | + + + + + Magnesium (04/25/2018 5:56 AM PST) + +-------+ + + + | Component | Value | Ref Range | Performed | Pathologist | | | | | At | Signature | + +-------+ + + + | Magnesium | 1.8 | 1.8 - 2.5 mg/dL | [facility] [...] [address] | [place] | [phone] | | [facility] | | [address] | | | - LABORATORY | | [...] (L) | 7 - 18 mg/dL | [facility] | | | | | | [facility] | | | | | | MEDICAL | | | | | | CENTER - | | | | | | LABORATORY | | + + + + + + | Creatinine | 1.20 | 0.60 - 1.30 | [facility] | | | | | mg/dL | [facility] | | | | | | MEDICAL | | | | | | CENTER - | | | | | | LABORATORY | | + + + + + + | eGFR if not | 49 (L)Comment: | >=60 | [facility] | | | | GLOMERULAR FILTRATION | mL/min/1.73m2 | [facility] | | | [place] | RATE,ESTIMATED | | MEDICAL | | | | mL/min/1.90y3Iutk than | | CENTER - | | [...] | | ine Ratio | | | . [facility] | | | | [...] + | [facility] | [address] | [place] | [phone] | | [facility] | | [address] | | | - LABORATORY | | | | + + + + + CBC no Differential (04/25/2018 5:56 AM PST) + + + + + + | Component | Value | Ref Range | Performed | Pathologist | | | | | At | Signature | + + + + + + | WBC | 6.9 | 4.0 - 11.0 K/uL | [facility] | | | | | | [facility] | | | | | | MEDICAL | | | | | | CENTER - | | | | | | LABORATORY | | + + + + + + | RBC | 2.96 (L) | 3.70 - 5.20 | [facility] | | | | | M/uL | [facility] | [...] | nRBC | | K/uL | [facility] | | | | | | MEDICAL [...] [address] | [place] | [phone] | | [facility] | | [address] | | | - LABORATORY | | [...] [address] | [place] | [phone] | | [facility] | | [address] | | | - LABORATORY | | [...] 90 | 70 - 109 mg/dL | [facility] | | | | | | [facility] | | | | | | MEDICAL | | | | | | CENTER - | | | | | | LABORATORY | | + + + + + + | BUN | 6 (L) | 7 - 18 mg/dL | [facility] | | | | | | [facility] | | | | | | MEDICAL | | | | | | CENTER - | | | | | | LABORATORY | | + + + + + + | Creatinine | 1.14 | 0.60 - 1.30 | [facility] | | | | | mg/dL | [facility] | | | | | | MEDICAL | | | | | | CENTER - | | | | | | LABORATORY | | + + + + + + | eGFR if not | 52 (L)Comment: | >=60 | [facility] | | | | GLOMERULAR FILTRATION | mL/min/1.73m2 | [facility] | | | [place] | RATE,ESTIMATED | | MEDICAL | | | | mL/min/1.78r9Pmod than | | CENTER - | | [...] | | ine Ratio | | | [facility] | | | [...] [address] | [place] | [phone] | | [facility] | | [address] | | | - LABORATORY | | [...] | | | | | | [employer] | | | | | [...] + | [facility] | [address] | [place], [place] | [phone] | | [facility] | | [address] | | | - LABORATORY | | [...] [address] | [place] | [phone] | | [facility] | | [address] | | | - LABORATORY | | [...] + | [facility] | [address] | [place] | [phone] | | [facility] | | [address] | | | - LABORATORY | | [...] | mL/min/1.73m2 | [facility] | | | [place] | RATE,ESTIMATED | | MEDICAL | | | | mL/min/1.40h5Mhvw than | | CENTER - | | [...] | | ine Ratio | | | [facility] | | | | [...] [address] | [place] | [phone] | | [facility] | | [address] | | | - LABORATORY | | [...] | | | | | | [employer] | | | | | [...] ST. | [address] | [place] | [phone] | | [facility] | | [address] | | | - LABORATORY | | [...] | | | | | | [employer] | | | | | [...] [address] | [place] | [phone] | | [facility] | | [address] | | | - LABORATORY | | [...] | | | | EREN NICOLE MD ([id number]) | | | | | | on [...] [address] | [place] | [phone] | | [facility] | | [address] | | | - LABORATORY | | | | + + + + + CBC no Differential (04/24/2018 5:45 AM PST) + + + + + + | Component | Value | Ref Range | Performed | Pathologist | | | | | At | Signature | + + + + + + | WBC | 8.5 | 4.0 - 11.0 K/uL | [facility] | | | | | [facility] | | | | | | MEDICAL | | | | | | CENTER - | | | | | | LABORATORY | | + + + + + + | RBC | 3.03 (L) | 3.70 - 5.20 | [facility] | | | | | M/uL | [facility] | [...] | | | | | | [facility] | | | | [...] [address] | [place] | [phone] | | [facility] | | [address] | | | - LABORATORY | | [...] | 0.96 | 0.60 - 1.30 | [facility] | | | | | mg/dL | [facility] | | | | | | MEDICAL | | | | | | CENTER - | | | | | | LABORATORY | | + + + + + + | eGFR if not | >60Comment: GLOMERULAR | >=60 | [facility] | | | | FILTRATION | mL/min/1.73m2 | [facility] | | | [place] | RATE,ESTIMATED | | MEDICAL | | | | mL/min/1.07h5Bcvf than | | CENTER - | | [...] | | ine Ratio | | | [facility] | | | [...] + | [facility] | [address] | [place] | [phone] | | [facility] | | [address] | | | - LABORATORY | | [...] + | [facility] | [address] | [place] | [phone] | | [facility] | | [address] | | | - LABORATORY | | [...] | | | | mmol/L | [facility] | | | | | | [...] [address] | [place] | [phone] | | [facility] | | [address] | | | - LABORATORY | | [...] [address] | [place] | [phone] | | [facility] | | [address] | | | - LABORATORY | | | | + + + + + B Type Natriuretic Peptide (04/23/2018 1:12 PM PST) + +---------+ + + + | Component | Value | Ref Range | Performed | Pathologist | | | | | At | Signature | + +---------+ + + + | BNP | 340 (H) | <100 pg/mL | [facility] | | | | | [...] + | [facility] | [address] | [place] | [phone] | | [facility] | | [address] | | | - LABORATORY | | [...] | Time | | seconds | [facility] | | | | [...] [address] | [place] | [phone] | | [facility] | | [address] | | | - LABORATORY | | [...] | | | | | | [employer] | | | | | [...] [address] | [place] | [phone] | | [facility] | | [address] | | | - LABORATORY | | [...] (L) | 7 - 18 mg/dL | [facility] | | | | | | [facility] | | | | | | MEDICAL | | | | | | CENTER - | | | | | | LABORATORY | | + + + + + + | Creatinine | 1.12 | 0.60 - 1.30 | [facility] | | | | | mg/dL | [facility] | | | | | | MEDICAL | | | | | | CENTER - | | | | | | LABORATORY | | + + + + + + | eGFR if not | 53 (L)Comment: | >=60 | [facility] | | | | GLOMERULAR FILTRATION | mL/min/1.73m2 | [facility] | | | [place] | RATE,ESTIMATED | | MEDICAL | | | | mL/min/1.94x3Bljn than | | CENTER - | | [...] (L) | 3.2 - 5.0 g/dL | [facility] | | | | | [...] | appended report. These | | [facility] | | | | results have been [...] | appended report. These | | [facility] | | | | results have been [...] | ine Ratio | | | [facility] | | [...] [address] | [place] | [phone] | | [facility] | | [address] | | | - LABORATORY | | | | + + + + + CBC with Differential (04/23/2018 1:12 PM PST) + + + + + + | Component | Value | Ref Range | Performed | Pathologist | | | | | At | Signature | + + + + + + | WBC | 9.6 | 4.0 - 11.0 K/uL | [facility] | [facility] - | | | | | | LABORATORY | | + + + + + + | RBC | 3.51 (L) | 3.70 - 5.20 | [facility] | | | | | M/uL | [facility] | [...] Granulocyte | patients, use the | | [facility] | | | s | special [...] ranges: Trim. Absolute (K/uL) Percentage (%) | [facility] | | 1st 0.003-0.091 K/uL 0.0-0.9% 2nd 0.007-0.247 K/uL | [facility] | | 0.1-2.0% 3rd 0.018-0.456 K/uL 0.1-2.0% | - LABORATORY | + + + + + + + + | Performing | Address | City/State/Zipcode | Phone Number | | Organization | | | | + + + + + | [facility] | [address] | [place] | [phone] | | [facility] | | [id number] | | | - LABORATORY | | [...] by | | | | | | BONNIE SPARKS, EREN ([id number]) | | | | | | on [...] + + | Coronary artery disease involving naknek coronary artery, angina presence unspecified, | | unspecified whether naknek or transplanted heart | + + | [...] albuterol 5 mg/mL concentrated | Given | 02/21/20 | 2.5 mg | | | | [...] | | | | 04/25/18 at 1315, Shake | | | | | | | [...] | | | (after last modification) on Tle | | | | | | | [...] | | | DAILY, First dose on 04/23/18 | | PM PST | | | [...] AM PST | | | | | 04/23/18 at 2041 | | | | [...] | | | (after last modification) on Thu | | AM PST | [...] PST | | | | | Starting 2/10/19 at 1735 | | | | | [...] | | | | PRN, Pain, Starting [facility] 04/29/18 | | AM PST | [...] +---+---+ + +-------+ +--------+---+---+ | potassium chloride (Joelor-Con | Given | 04/24/19 | 40 mEq [...] +---+---+ + +-------+ +--------+---+---+ | potassium chloride (Osito-Con | Given | 05/04/19 | 40 mEq [...] | | | (after last modification) on Thu | | | | | | | [...]
--- OUTSIDE RECORDS SUMMARY | ~2019-02-15 | XMS | Encounter Summary ---
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, | Imaging (ultrasound | | 2019 | | GASTROENTEROLOGY | [address] | needs scheduled) | | | | [address] [place] | [place], [address] | | | | | [address], [place] | [place] | | | | | [address] | [address] | | | | | [phone] | | | +--------+ + + + [...]
--- OUTSIDE RECORDS SUMMARY | ~2019-02-15 | XMS | Encounter Summary ---
Demographics + + + | Address | [address] | | | [place] [address] | + + + | Home Phone | | + + + | Preferred Language | Unknown | + + + | Marital Status | Single | + + + | Restoration Affiliation | 1041 | + + + | Race | Unknown | + + + | Ethnic Group | Unknown | + + + Author + + + | Author | [facility] | | | and [place] | + + + | Organization | [facility] | | | [...] Team Providers + +------+ + | Care Die Out Worker Name | Role | Phone | + +------+ + | Julita Cabrla PA-C | PCP | | + +------+ [...] | | vomiting, | | [address], | | | | | vomiting of | | [address] | | | | | unspecified | | [place], | | | | | type | | [place] [address] | | | | | Aspiration | | Phone: | | | | | pneumonia | | [phone] | | | | | due to | | Fax: | | | | | gastric | | [phone] | | | | | secretions | [...] + + | 04/17/ | Surgery | [facility] | Keaton Wakefield MD | EGD | | 2016 | | MED CTR MP INTRA OP | [address], [place] | | | | | [address] | [address] [place] | | | | | [place], [place] | [id number] | | | | | [address] | | | | | | [phone] | | | +--------+---------+ + + + [...] | PROVATION | | 04/17/2015 12:31 PMMRN: [id number] #: [id number] of : | | | 1975Admit Type: AmbulatoryAge: 39Room: [facility] 01Gender: FemaleNote | | | [...] physician, the nurse, the anesthesiologist and the diet technician registered | | | in the procedure room. [...] clinic for pathology results in 1 week.Keaton Wakefield | | | 04/17/2015 12:37 PMThis report has been signed electronically.Number | | | of Addenda: 0Note Initiated On: 04/17/2015 12:31 PM [facility]. | | | [facility], [address] [place] [address] | | | [phone] | | | - The retroflexed view [...] On: 04/17/2015 12:31 PM | | | [facility]. [facility], [address] [place] [address] | | | [address] | | + + -+ + +---------+ + + | Performing | Address | City/State/[facility] | Phone Number | | Organization [...] r pylori Ag | | | [facility] | | | | | [facility] [...] [address] | [place] | [phone] | | [facility] | | [address] | | | - LABORATORY | | [...] | | POC | | | [facility] | | | | | | MEDICAL [...] [address] | [place] | [phone] | | [facility] | | [address] | | | - LABORATORY | | | | + + + + + CBC no Differential (04/17/2015 11:02 AM PST) + + + + + + | Component | Value | Ref Range | Performed | Pathologist | | | | | At | Signature | + + + + + + | WBC | 9.8 | 4.0 - 11.0 K/uL | [facility] | | [facility] - | | | | | | LABORATORY | | + + + + + + | RBC | 4.66 | 3.70 - 5.20 | [facility] | | | | M/uL [facility] | | [facility] | | | | | | [facility] - | | | | | | LABORATORY | | + + + + + + | Hemoglobin | 13.9 | 11.5 - 16.0 | [facility] | | | | | g/dL | [facility] | | | | | | [facility] | | | | | | [facility] - | | | | | | LABORATORY | | + + + + + + | Hematocrit | 42.5 | 34.0 - 47.0 % | [facility] | | | | | | [facility] - | | | | | | LABORATORY | | + + + + + + | MCV | 91.3 | 83.0 - 101.0 fL | [facility] | | | [facility] | [facility] | | | | | | [facility] - | | | | | | LABORATORY | | + + + + + + | MCH | 29.9 | 28.0 - 35.0 pg | [facility] | | | [facility] | | [facility] | | | [facility] - | | | | | | LABORATORY | | + + + + + + | MCHC | 32.7 | 32.0 - 36.0 | [facility] | | | | | g/dL | [facility] | | [facility] | [facility] | | | | | | CENTER - | | | | | | LABORATORY | | + + + + + + | RDW-CV | 18.9 (H) | <15.0 % | [facility] | | | | | [facility] | | [facility] | [facility] | | | | | | CENTER - | | | | | | LABORATORY | | + + + + + + | Platelet | 165 | 140 - 440 K/uL | [facility] | | | Count | | | [facility] | [facility] | [facility] | | | | | | CENTER - | | | | | | LABORATORY | | + + + + + + | MPV | 7.4 | fL | [facility] | | | | | | [facility] | | | | | | MEDICAL [...] [address] | [place] | [phone] | | [facility] | | [address] | | | - LABORATORY | | [...] | 1.010, 1.015, | | | | [place], | | 1.020, 1.025 | | | | POC | | | | | + + + + + + | Internal QC | Acceptable | | | | + + + + + + | Lot Number | [id number] | | | | + + + + + + | Expiration | 2016- | | | | | Date | [...] DUODENAL BIOPSY SPECIMEN SOURCE: A. DUODENAL | [place] [facility] | | BIOPSY CLINICAL HISTORY: R11.2 [...] | | peptic duodenitis or other abnormality. BES:[facility]:C3NR GROSS | | | DESCRIPTION: Received in formalin labeled "Tiny Campuzano" and | | | "duodenal biopsy" on the requisition are multiple pink-santa tissue | | | fragments measuring from <0.1-0.4 cm, all in (A1). ka:CINDI:[facility] | | | PERFORMING LABORATORY: Tissue processing and slide preparation were | | | performed by [employer], [address] [place] [address] 5[facility] | | | [place] [address] (Char Filter Tank Tender Head: Reilly Thomas M.D. CLIA#: | | | [id number]). Professional interpretation was performed by [facility] | | | [facility], [address] [place] [address], [address], [place] [address] | | | (Char Filter Tank Tender Head: Reilly Thomas M.D.; IA#: [id number]). | | | Diagnostician: Daniel Briscoe MD Pathologist Electronically Signed | | | 04/18/2015 | | + + + + +---------+ + + | Performing | Address | City/State/[facility] Cent[facility]ode | Phone Number | | Organization [...] | mL/hr | | | CONTINUOUS, Starting 2/2/16 | | AM PST | | | [...] PM PST | | | | | samuelt ely, | | | | | | + +-------+ +------+---+---+ +---+---+ | | | +---+---+ documented in this encounter
--- OUTSIDE RECORDS SUMMARY | ~2019-02-15 | XMS | Encounter Summary ---
Demographics + + + | Address | [address] | | | [place] [address] | + + + | Home Phone | | + + + | Preferred Language | Unknown | + + + | Marital Status | Single | + + + | Mandaen Affiliation | 1041 | + + + [...] Providers + +------+ + | Care Tube Winder Name | Role | Phone | + [...] | [address] | septum (Primary Dx); | | | | [address] | [address] [place], | Hypertrophy of | | | | [place], [place] | [place] [address] | nasal turbinates; | | | | [address] | [phone] | Neoplasm of | | | | [phone] | | uncertain behavior | | | [...]
--- OUTSIDE RECORDS SUMMARY | ~2019-02-15 | XMS | Encounter Summary ---
Demographics + + + | Address | [address] | | | [place] [address] | + + + | Home Phone | | + + + | Preferred Language | Unknown | + + + | Marital Status | Single | + + + | Mormonism Affiliation | 1041 | + + + | Race | Unknown | + + + | Ethnic Group | Unknown | + + + Author + + + | Author | [facility] | | | and [place] | + + + | Organization | [facility] | | | [...] Providers + +------+ + | Care Technical Publications Writer Name | Role | Phone | + +------+ + | Julita Cabral PA-C | PCP | | + +------+ + Reason for Visit + + + | Reason | Comments | + + + | Procedure | surgery time | + + + Encounter Details +--------+ + + + + | Date | Type | Department | Care Team | Description | +--------+ + + + + | 08/31/ | Telephone | [facility] [place] | Jose Riojas MD | Procedure (surgery | | 2019 | | OTOLARYNGOLOGY [address] | [address] | time ) | | | | [address] | [address] [place], | | | | | [place] | [place] [address] | | | | | [address] | [phone] | | | | | [phone] | | | +--------+ + + + [...]
--- OUTSIDE RECORDS SUMMARY | ~2019-02-15 | XMS | Encounter Summary ---
Demographics + + + | Address | [address] | | | [place] [address] | + + + | Home Phone | | + + + | Preferred Language | Unknown | + + + | Marital Status | Single | + + + | Jain Affiliation | 1041 | + + + | Race | Unknown | + + + | Ethnic Group | Unknown | + + + Author + + + | Author | [facility] | | | and [place] | + + + | Organization | [facility] | | [...] Team Providers + +------+ + | Care Weatherization Field Technician Name | Role | Phone | [...] 2015 | | [address] | [place] [address] | | | | | [address] | [address] | | | | | [place] | [place] [address] | | | | | [address] | [phone] | | | | | [phone] | | | +--------+ + + + [...] m/s Septal | | | E/e': 11.88 Director Of Special Events: EMMANUEL Authenticated by: Keith | | | [...] | 6.08 cmLVPWd: 0.96 cmLVOT Area: 4.23 bp2JNVJ Diam: 2.32 cm%FS: 29.55 %EF(Teich): | | 55.63 %ESV(Teich): 82.55 mlLVIDs: 4.28 cmSV(Teich): 103.53 mlRV Major: 7.81 | | cmRVIDd: 3.22 cmLAAs A4C: 19.17 lt2KFAAC A-L A4C: 58.05 mlLALs A4C: 5.37 cmRAAs: | | 9.50 hu9OTPYJ A-L: 20.91 mlRAESV MOD: 20.37 mlRALs: 3.66 cmAo Diam: 3.43 | | cmAo/LA: 0.63LA Diam: 5.42 cmLA/Ao: 1.57MV A Finn: 1.26 m/sMV DecT: 223.78 msMV | | E Finn: 1.08 m/sMV E/A Ratio: 0.85MV PHT: 64.89 msMVA By PHT: 3.38 zt5Reygpc e': | | 0.09 m/sSeptal E/e': 11.88 Director Of Special Events: JEFFERSONuthenticated by: Rochelle Parker | | MDReport [...] | |Septal E/e': 11.88 | | | |Director Of Special Events: EMMANUEL | |Authenticated by: Rochelle Parker MD [...]
--- OUTSIDE RECORDS SUMMARY | ~2019-02-15 | XMS | Encounter Summary ---
Demographics + + + | Address | [address] | | | [place] [address] | + + + | Home Phone [...] + + + | Author | [facility] | | | and [place] | + + + | Organization | [facility] | | [...] Team Providers + +------+ + | Care Booking Officer Name | Role | Phone | + +------+ + | Julita Cabral PA-C | PCP | | + +------+ + Reason for Visit +--------+ + | Reason | Comments | +--------+ + | LABS | | +--------+ + Encounter Details +--------+ + + + + | Date | Type | Department | Care Team | Description | +--------+ + + + + | 01/05/ | Telephone | [facility] | [facility], | LABS | | 2019 | | GASTROENTEROLOGY | FRANK [address]connor [address] | | | | | [address] [place] | [place], [address] | | | | | [address] [place], [place] | [place], [place] | | | | | [address] | [id number] | | | | | [phone] | | | +--------+ + + + [...]
--- OUTSIDE RECORDS SUMMARY | ~2019-02-15 | XMS | Encounter Summary ---
Demographics + + + | Address | [address] | | | [place] [address] | + + + | Home Phone [...] Team Providers + +------+ + | Care Production Posting Clerk Name | Role | Phone | + [...] | | vomiting, | | [address], | | | | | vomiting of | | [address] | | | | | unspecified | | [place], | | | | | type | | [place] [address] | | | | | Aspiration | | Phone: | | | | | pneumonia | | [phone] | | | | | due to | | Fax: | | | | | gastric | | [phone] | | | | | secretions | [...] | Anesthesia | [facility] | Rboert Gan, | | | 2015 | Event | MED CTR MP INTRA OP | MD [address] | | | | | [address] | [place] | | | | | [place] | [address] | | | | | [address] | | | | | | [phone] | | | +--------+ + + + [...] + + | Periph | 04/17/15; 1105; [id number] | 04/17/15 1105 by | 04/17/15 1400 [...]
--- OUTSIDE RECORDS SUMMARY | ~2019-02-15 | XMS | Encounter Summary ---
Demographics + + + | Address | [address] | | | [place] [address] | + + + | Home Phone [...] Author + + + | Author | [facility] | | | and [place] | + + + | Organization | [facility] | | | and [...] Team Providers + +------+ + | Care Computer Systems Consultant Name | Role | Phone | [...] | | vomiting, | | [address], | | | | | vomiting of | | [address] | | | | | unspecified | | [place], | | | | | type | | [place] [address] | | | | | Aspiration | | Phone: | | | | | pneumonia | | [phone] | | | | | due to | | Fax: | | | | | gastric | | [phone] | | | | | secretions | [...] + + | 04/17/ | Hospital | [facility] | Keaton Wakefield MD | Nausea and vomiting, | | 2016 | Encounter | MED CTR MP INTRA OP | [address], [place] | vomiting of | | | | [address] | [address] [place] | unspecified type | | | | [place], [place] | [address] | (Primary Dx) | | | | [address] | | | | | | [phone] | | | +--------+ + + + [...] | [facility] | | GastroenterologyPatient Name: Tiny CampuzanoWes Date: | PROVATION | | 04/17/2015 12:31 PMMRN: [id number] #: [id number] of : | | | 1975Admit Type: AmbulatoryAge: 39Room: [facility] 01Gender: FemaleNote | | | Status: [...] physician, the nurse, the anesthesiologist and the quick technician | | | in the procedure [...] Addenda: 0Note Initiated On: 04/17/2015 12:31 PM [facility]. | | | [facility], [address] [place] [address] | | | [phone] | | | - The retroflexed view [...] On: 04/17/2015 12:31 PM | | | [facility], [address] [place] [address] | | | [address] | | + + -+ + +---------+ [...] | r pylori Ag | | | [facility] | | [...] ST. | [address] | [place], [place] | [phone] | | [facility] | | [address] | | | - LABORATORY | | | | + + + + + POC Glucose (04/17/2015 11:03 AM PST) + +-------+ + + + | Component | Value | Ref Range | Performed | Pathologist | | | | | At | Signature | + +-------+ + + + | Glucose, | 112 | 70 - 150 mg/dL | [facility] | | | POC | | | [facility] | | [...] [address] | [place] | [phone] | | [facility] | | [address] | | | - LABORATORY | | [...] + | [address] | [address] | [place] | [phone] | | [facility] | | [address] | | | - LABORATORY | | [...] | 1.010, 1.015, | | | | [place], | | 1.020, 1.025 | | | | POC | | | | | + + + + + + | Internal QC | Acceptable | | | | + + + + + + | Lot Number | [id number] | | | | + + + + + + | Expiration | 2016-09 | | | | | Date | [...] DUODENAL BIOPSY SPECIMEN SOURCE: A. DUODENAL | [place] [facility] | | BIOPSY CLINICAL HISTORY: R11.2 [...] | | peptic duodenitis or other abnormality. BES:[facility]:C3NR GROSS | | | DESCRIPTION: Received in formalin labeled "Tiny Campuzano" and | | | "duodenal biopsy" on the requisition are multiple pink-santa tissue | | | fragments measuring from <0.1-0.4 cm, all in (A1). ka:CINDI:[facility] | | | PERFORMING LABORATORY: Tissue processing and slide preparation were | | | performed by [employer], [address], [facility] | | | [place] [address] (Line Assigner: Reilly Thomas M.D. CLIA#: | | | [id number]). Professional interpretation was performed by [employer] | | | [employer], [address], [place] [address] | | | (Line Assigner: Reilly Thomas M.D.; CLIA#: [id number]). | | | Diagnostician: Daniel Briscoe MD [...] PM PST | | | | | cabinet override, | | | | | | + +-------+ +------+---+---+ +---+---+ | | | +---+---+ documented in this encounter
--- OUTSIDE RECORDS SUMMARY | ~2019-02-15 | XMS | Encounter Summary ---
Demographics + + + | Address | [address] | | | [place] [address] | + + + | Home Phone | | + + + | Preferred Language | Unknown | + + + | Marital Status | Single | + + + | Christian Affiliation | 1041 | + + + | Race | Unknown | + + + | Ethnic Group | Unknown | + + + Author + + + | Author | [facility] | | | and [place] | + + + | Organization | [facility] | | | and [...] Team Providers + +------+ + | Care Clinical Assoc Name | Role | Phone | + [...] | | [address] | [place] [address] | | | | | | [place], | Phone: | | | | | | [place] | [phone] | | | | | | [address] | Fax: | | | | | | Phone: | [phone] | | | | | | [phone] | | | | | | | Fax: | | | | | | | [phone] | | +--------+--------+ + + + + Encounter Details +--------+---------+ + + + | Date | Type | Department | Care Team | Description | +--------+---------+ + + + | 07/07/ | Office | [facility] | Jose Riojas MD | Deviated nasal | | 2019 | Visit | OTOLARYNGOLOGY [address] | [address] [place] | septum (Primary Dx); | | | | [address] | [address] [place], | Hypertrophy of | | | | [place], [place] | [place] [address] | nasal turbinates; | | | | [address] | [phone] | Neoplasm of | | | | [phone] | | uncertain behavior | | | [...]
--- OUTSIDE RECORDS SUMMARY | ~2019-02-15 | XMS | Encounter Summary ---
Demographics + + + | Address | [address] | | | [place] [address] | + + + | Home Phone [...] Team Providers + +------+ + | Care Plastics Worker Name | Role | Phone | [...] | [address] [place] | [place], [address] | ascites (HCC) | | | | [address] [place], [place] | [place], [place] | (Primary Dx) | | | | [address] | [address] | | | | | [phone] | | | +--------+ + + + [...] 2 weeks, and M.A. faxed order to [facility]. documented in this encounter Plan of Treatment [...]
--- OUTSIDE RECORDS SUMMARY | ~2019-02-15 | XMS | Encounter Summary ---
Demographics + + + | Address | [address] | | | [place] [address] | + + + | Home Phone [...] Team Providers + +------+ + | Care Director Equipment Name | Role | Phone | + [...] + | 07/21/ | Telephone | [facility] | Jose Riojas MD | Procedure (surgery | | 2019 | | OTOLARYNGOLOGY [address] | [address] | ) | | | | [address] | [address] [place], | | | | | [place] | [place] [address] | | | | | [address] | [phone] | | | | | [phone] | | | +--------+ + + + [...]
--- OUTSIDE RECORDS SUMMARY | ~2019-02-15 | XMS | Encounter Summary ---
Demographics + + + | Address | [address] | | | [place] [address] | + + + | Home Phone | | + + + | Preferred Language | Unknown | + + + | Marital Status | Single | + + + | Hindu Affiliation | 1041 | + + + [...] Team Providers + +------+ + | Care Shear Grinder Operator Name | Role | Phone | [...] | | vomiting, | | [address], | | | | | vomiting of | | [address] | | | | | unspecified | | [place], | | | | | type | | [place] [address] | | | | | Aspiration | | Phone: | | | | | pneumonia | | [phone] | | | | | due to | | Fax: | | | | | gastric | | [phone] | | | | | secretions | [...] + + | 04/17/ | Hospital | [facility] | Keaton Wakefield MD | Nausea and vomiting, | | 2016 | Encounter | MED CTR MP INTRA OP | [address], [place] | vomiting of | | | | [address] | [address] [place] | unspecified type | | | | [place], [place] | [address] | (Primary Dx) | | | | [address] | | | | | | [phone] | | | +--------+ + + + [...] | PROVATION | | 04/17/2015 12:31 PMMRN: [id number] #: [id number] of : | | | 1975Admit Type: AmbulatoryAge: 39Room: [facility] 01Gender: FemaleNote | | | [...] physician, the nurse, the anesthesiologist and the firestopper technician | | | in the procedure [...] Addenda: 0Note Initiated On: 04/17/2015 12:31 PM [facility]. | | | [facility], [address] [place] [address] | | | [phone] | | | - The retroflexed view [...] On: 04/17/2015 12:31 PM | | | [facility], [address] [place] [address] | | | [address] | | + + -+ + +---------+ [...] ST. | [address] | [place], [place] | [phone] | | [facility] | | [address] | | | - LABORATORY | | [...] | [address] | [place] | [phone] | | [facility] | | [address] | | | - LABORATORY | | [...] + | MA[address] | [address] | [place] | [phone] | | [facility] | | [address] | | | - LABORATORY | | [...] | 1.010, 1.015, | | | | [place], | | 1.020, 1.025 | | | | POC | | | | | + + + + + + | Internal QC | Acceptable | | | | + + + + + + | Lot Number | [id number] | | | | + + + [...] | | peptic duodenitis or other abnormality. BES:[facility]:C3NR GROSS | | | DESCRIPTION: Received in formalin labeled "Tiny Campuzano" and | | | "duodenal biopsy" on the requisition are multiple pink-santa tissue | | | fragments measuring from <0.1-0.4 cm, all in (A1). ka:CINDI:[facility] | | | PERFORMING LABORATORY: Tissue processing and slide preparation were | | | performed by [employer], [address], [facility] | | | [place] [address] (Produce Sorter: Reilly Thomas M.D. CLIA#: | | | [id number]). Professional interpretation was performed by [employer] | | | [employer], [address], [place] [address] | | | (Produce Sorter: Reilly Thomas M.D.; CLIA#: [id number]). | | | Diagnostician: Daniel Briscoe MD [...]
--- OUTSIDE RECORDS SUMMARY | ~2019-02-15 | XMS | Encounter Summary ---
Demographics + + + | Address | [address] | | | [place] [address] | + + + | Home Phone | | + + + | Preferred Language | Unknown | + + + | Marital Status | Single | + + + | Episcopal Affiliation | 1041 | + + + | Race | Unknown | + + + | Ethnic Group | Unknown | + + + Author + + + | Author | [facility] | | | and [place] | + + + | Organization | [facility] | | [...] Team Providers + +------+ + | Care Reproduction Technician Name | Role | Phone | [...] | Radiology - | Diagnoses | | [facility] | | | Services | Diagnostic | Alcoholic | [facility], | [facility] | | | Required | Ultrasound | cirrhosis of | [facility] | | | | | liver | [facility] DIRECTOR [address] | [address] | | | | | without | [place], [place] | [address] | | | | | ascites | [address] [place] [address] | | | | | (HCC) | [place], [place] | [place], [place] | | | | | Anemia, | [address] | [address] | | | | | unspecified | Phone: | Phone: | | | | | type | [phone] | [phone] | | | | | Hypokalemia | Fax: | Fax: | | | | | | [phone] | [phone] | | | | | Thrombocytop | [...] | [address] [place] | [place], [place] [address] | ascites (HCC) | | | | [address] [place], [place] | [place], [place] | (Primary Dx); | | | | [address] | [address] | Anemia, unspecified | | | | [phone] | | type; Hypokalemia; | | | [...]
--- OUTSIDE RECORDS SUMMARY | ~2019-02-15 | XMS | Encounter Summary ---
Demographics + + + | Address | [address] | | | [place] [address] | + + + | Home Phone [...] Team Providers + +------+ + | Care Mold Blower Name | Role | Phone | + [...] / | (adult) | NW | [place] | | | | Sleep | (pediatric) | [place] | [facility] | | | | Medicine | CONSULT PW | [facility] [address] | [place], [place] | | | | | 1:30 | [place], | [address] Phone: | | | | | Procedures | [place] | [phone] | | | | | NEW PATIENT | [address] | Fax: | | | | | | Phone: | [phone] | | | | | | [phone] | | | | | | | Fax: | | | | | | | [phone] | | +--------+--------+ + + + + Encounter Details +--------+---------+ + + + | Date | Type | Department | Care Team | Description | +--------+---------+ + + + | 08/20/ | Office | [facility] | Lupillo [place]es | NO SHOW (Primary Dx) | | 2015 | Visit | SLEEP DISORDER [address] | MD [address] | | | | | [address] [place] | [address] [place] | | | | | [place] [address] | [place] [address] | | | | | [phone] | [phone] | | | | | | | [...] a NO SHOW for a 1 hour [facility] medicine consultation. 2: 21 PM PDTdocumented in this encounter Plan of Treatment Not on filedocumented as of this encounter Visit Diagnoses + + | Diagnosis | + + | No Show - Primary Code used for vists where the patient is not seen | + + documented in this encounter"
--- OUTSIDE RECORDS SUMMARY | ~2019-02-15 | XMS | Encounter Summary ---
Demographics + + + | Address | [address] | | | [place] [address] | + + + | Home Phone [...] Team Providers + +------+ + | Care Nail Welter Name | Role | Phone | + [...] unspecified | [address], | | | | | Nausea with | [place], [place] | [address] | | | | | vomiting, | [address] [place] | [place], | | | | | unspecified | [place], [place] | [place] [address] | | | | | Opioid | [address] | Phone: | | | | | dependence, | Phone: | [phone] | | | | | uncomplicate | [phone] | Fax: | | | | | d (HCC) | Fax: | [phone] | | | | | Pneumonitis | [phone] | | | | | | due to | | | | | | | inhalation | | | | | | | of food and | | | | | | | vomit (HCC) | | | | | | | Procedures | | | | | | | CT | | | | | | | ESOPHAGOGAST | | | | | | | RODUODENOSCO | | | | | | | PY TRANSORAL | | | | | | | DIAGNOSTIC | | | | | | | CT EDG | | | | | | | TRANSORAL | | | | | | | BIOPSY | | | | | | | SINGLE/MULTI | | | | | | | PLE CT | | | | | | | [...] | | | | | 03/12>PEND | [place], | [address] | | | | | [facility] | [place] | Phone: | | | | | Office visit | [address] | [phone] | | | | | | Phone: | Fax: | | | | | | [phone] | [phone] | | | | | | Fax: | | | | | | | [phone] | | +--------+--------+ + + + + Encounter Details +--------+---------+ + + + | Date | Type | Department | Care Team | Description | +--------+---------+ + + + | 04/05/ | Office | [facility] | Keaton Wakefield MD | Dysphagia, | | 2016 | Visit | GASTROENTEROLOGY | [address], [place] | unspecified | | | | [address] [place] | [address] [place], [place] | dysphagia; Opioid | | | | [address] [place], [place] | [address] | type dependence, | | | | [address] | | continuous (HCC); | | | | [phone] | | Nausea and vomiting, | | [...] She is taking stool softeners and us rothman moves her bowels about every other day. [...] and well-nourished. No distress. Morbid obesity B CT 49.4 HENT: Head: Normocephalic and atraumatic. Right [...] normal. Nursing note and vitals reviewed. Assessment: form setter steel pan forms vomiting probably secondary to gastroparesis incompetent lower [...] made to ensure accuracy; however, inadvertent computerized extracorporeal circulation specialist errors may be pre sent. documented in this enc ounter Plan of Treatment + + +--------+ + + | Name | Type | Priori | Associated Diagnoses | Order Schedule | | | | ty | | | + + +--------+ + + | Procedure | Outpatient | Routin | Nausea and | Expected: 04/17/2015 | | [id number] | Referral | e | vomiting Morbid [...]
--- OUTSIDE RECORDS SUMMARY | ~2019-02-15 | XMS | Encounter Summary ---
Demographics + + + | Address | [address] | | | [place] [address] | + + + | Home Phone | | + + + | Preferred Language | Unknown | + + + | Marital Status | Single | + + + | Worship Affiliation | 1041 | + + + | Race | Unknown | + + + | Ethnic Group | Unknown | + + + Author + + + | Author | [facility] | | | and [place] | + + + | Organization | [facility] | | | [...] Team Providers + +------+ + | Care Reconciliation Coordinator Name | Role | Phone | [...] [place], | | | | | [place], [place] | [place] [address] | | | | | [address] | [phone] | | | | | [phone] | | | +--------+ + + + [...]
--- OUTSIDE RECORDS SUMMARY | ~2019-02-15 | XMS | Clinical Summary ---
Demographics + + + | Address | [address] | | | [place] [address] | + + + | Home Phone [...] + + + | Author | [facility] | | | and [place] | + + + | Organization | [facility] | | [...] Team Providers + +------+ + | Care Field Reviewer Name | Role | Phone | + [...] | | 2018 | | | Talya Carbon Cleaner | date ) | +--------+ + + [...] | 01/05/ | Documentati | Gastroenterology | [facility], | | | 2018 | on | | [place] | | +--------+ + + + + | 01/05/ | Telephone | Gastroenterology | [facility], | LABS | | 2018 | | | [place] | | +--------+ + + + + | 01/04/ | Orders Only | Gastroenterology | [facility], | Alcoholic cirrhosis | | 2018 [...] +---------+--------+ | [place] | MEDICA | [id number] | 04/16/19 | [phone] | | Medica [...] +---------+--------+ | [place] | MEDICA | [id number] | | [phone] | | Medica | | | [place] | | 019-Pr | 2 | | id | | | PLUS | | esent | | | | + +--------+ +--------+ +---------+--------+ | [facility] | IHS | [phone] | 03/16/19 | | | Indemn | [...] | | al/Fam | | 1975 | [phone] | [place] | | | [place] | | | 4 (Home) | [address] | + +--------+ +--------+ + + | Tiny Campuzano | Person | Self | [birth year] | [address] | | | al/Fam | | 1975 | [phone] | [place] | | | [place] | | | 4 (Home) | [address] | + +--------+ +--------+ + + Advance Directives + + + + + | Type | Date Recorded | Patient | Explanation | | | | Airfield Engineer Officer | | + + + + + | Power of | | | | | Gasket Maker | | | | + + + [...]
--- OUTSIDE RECORDS SUMMARY | ~2019-02-15 | XMS | Encounter Summary ---
Demographics + + + | Address | [address] | | | [place] [address] | + + + | Home Phone [...] Team Providers + +------+ + | Care Client Business Manager Name | Role | Phone | + +------+ + | Julita Cabral PA-C | PCP | | + +------+ + Reason for Visit +---------+ + | Reason | Comments | +---------+ + | Imaging | | +---------+ + Encounter Details +--------+ + + + + | Date | Type | Department | Care Team | Description | +--------+ + + + + | 01/19/ | Telephone | [facility] [place] | [facility], | Imaging | | 2019 | | GASTROENTEROLOGY | [address] | | | | | [address] [place] | [place], [address] | | | | | [address] [place], [place] | [place], [place] | | | | | [address] | [address] | | | | | [phone] | | | +--------+ + + + [...]
--- OUTSIDE RECORDS SUMMARY | ~2019-02-15 | XMS | Encounter Summary ---
Demographics + + + | Address | [address] | | | [place] [address] | + + + | Home Phone | | + + + | Preferred Language | Unknown | + + + | Marital Status | Single | + + + | Jainism Affiliation | 1041 | + + + [...] Team Providers + +------+ + | Care Loom Changeover Operator Name | Role | Phone | [...] (cirrhosis | PA-C [address] | [address], | | | | | of liver) | [address] | [address] | | | | | (HCC) | [place] | [place], | | | | | Procedures | [address] | [place] [address] | | | | | office visit | [place], | Phone: | | | | | | [place] | [phone] | | | | | | [address] | Fax: | | | | | | Phone: | [phone] | | | | | | [phone] | | | | | | | Fax: | | | | | | | [phone] | | +--------+--------+ + + + + Encounter Details +--------+---------+ + + + | Date | Type | Department | Care Team | Description | +--------+---------+ + + + | 07/07/ | Office | [facility] | [facility], | Alcoholic cirrhosis | | 2019 | Visit | GASTROENTEROLOGY | [address] | of liver without | | | | [address] [place] | [place], [address] | ascites (HCC) | | | | [address] [place], [place] | [place], [place] | (Primary Dx); | | | | [address] | [address] | Anemia, unspecified | | | | [phone] | | type; Hypokalemia; | | | [...] was initially seen in the ED in [facility] for abdominal pain and swelling 2017. She went home and was readmitted to the hospital 03/2018. She was then hospitalized in [place]. She was was hospitalized for 22 days. She was then readmitted to the hospital here at [facility] 04/23/2018. She was admitted from 04/23 -05/06/2018. [...] Procedure: EGD; Surgeon: Keaton Wakefield MD; Location: [facility] Family History Family [...] call once she has been evaluated by certified medication aide. Will need to schedule EGD and colonoscopy [...] AFP every 6 months. Metabolic Bone Disease: jail Cirrhotics are at increased risk of developing [...]
--- OUTSIDE RECORDS SUMMARY | ~2019-02-15 | XMS | Encounter Summary ---
Demographics + + + | Address | [address] | | | [place] [address] | + + + | Home Phone [...] + | Author | [facility] | | | and [place] | + + + | Organization | [facility] | | | and [place] | + + + | Address | Unknown | + + + | Phone | Unavailable | + + + Support + + +---------+ + | Name | Relationship | Address | Phone | + + +---------+ + | Parisa Reyes | ECON | Unknown | | + + +---------+ + | Sadnra Oro | ECON | Unknown | | + + +---------+ + Care Team Providers + +------+ + | Care Weir Fisherman Name | Role | Phone | + [...] | Telephone | [facility] [place] | [facility], | LABS | | 2019 | | GASTROENTEROLOGY | [address] | | | | | [address] [place] | [place], [address] | | | | | [address] [place], [place] | [place], [place] | | | | | [address] | [id number] | | | | | [phone] | | | +--------+ + + + [...]
--- OUTSIDE RECORDS SUMMARY | ~2019-02-15 | XMS | Encounter Summary ---
Demographics + + + | Address | [address] | | | [place] [address] | + + + | Home Phone | | + + + | Preferred Language | Unknown | + + + | Marital Status | Single | + + + | Yazdanism Affiliation | 1041 | + + + | Race | Unknown | + + + | Ethnic Group | Unknown | + + + Author + + + | Author | [facility] | | | and [place] | + + + | Organization | [facility] | | [...] Team Providers + +------+ + | Care Deckhand Name | Role | Phone | + [...] + + | 01/31/ | Telephone | [facility] [place] | Jose Riojas MD | Procedure | | 2019 | | OTOLARYNGOLOGY [address] | [address] | | | | | [address] | [address] [place], | | | | | [place], [place] | [place] [address] | | | | | [address] | [phone] | | | | | [phone] | | | +--------+ + + + [...]
--- OUTSIDE RECORDS SUMMARY | ~2019-02-15 | XMS | Encounter Summary ---
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 | Role | Phone [...] + | 04/23/ | Hospital | [facility] | James Yanez, | Decompensated | | 2019 - | Encounter | MED [facility] | [address] | hepatic cirrhosis | | | | [address] [place] | [place], [place] | (HCC) (Primary Dx); | | 05/06/ | | [place] [address] | [address] | Hypervolemia, | | 2019 | | [phone] | | unspecified | | | | | Pau Hernandez MD | hypervolemia type; | | | | | [address] | Acute systolic | | | | | [place], [place] | congestive heart | | | | | [address] | failure (HCC); 3+ | | | | | | pitting edema; | | | | | Adali Morrow MD | Abdominal pain, | | | | | [address] | chronic, epigastric; | | | | | [place], [place] | Anasarca; Alcoholic | | | | | [address] | cirrhosis of liver | | | [...] | | | | | | involving chinik | | | | | | coronary artery, | | | | | | angina presence | | | | | | unspecified, | | | | | | unspecified whether | | | | | | chinik or | | | | | | transplanted heart; | | | | | | Thrombocytopenia | | | | | | ([facility]); Anemia, | | | | | | unspecified type; | | | | | | Morbid obesity | | | | | | ([facility]); Acute on | | | | | | chronic systolic | | | | | | (congestive) heart | | | | | | failure ([facility]) | +--------+ + + + + Social [...] might be differen t from the original. [place], [place] HOSPITALIST DISCHARGE SUMMARY Pt. Name/Age/: Tiny [...] liver and heart failure. Echo 03/19/18 at [facility] showed EF 45% with apical WMA.Patient did [...] week . Specialty: Internal Medicine Contact information: [phone] [place] [id number] Condition: Patient being discharged with condition improved Diet: 2 gm sodium diet Greater than 30 minutes were spent on discharge and coordination of post-hospital care. Electronically signed by: Delia Parson MD, 05/06/2018 20:53 [facility] Portions of this chart may have been created with uniRow voice recognition software. Occasi onal wrong-word or sound-alike substitutions may have occurred due to the inherent munoz itations of voice recognition software. Please read the chart carefully and recognize, using context, where these substitutions have occurred documented in this encounter Discharge Instructions AttachmentsThe following attachments cannot be sent through Care Everywhere.Cirrhosis of th e Liver, Discharge Instructions for (Yoruba)documented in this encounter Medications at Time of [...] might be differen t from the original. [facility] [place] HOSPITALIST PROGRESS NOTE Patient: Tiny Campuzano : 1975: Age: 42 y.o. MedRec: [id number] Admission date: 04/23/2018 Hospital day # : [...] liver and heart failure. Echo 03/19/18 at [facility] showed EF 45% with apical WMA. Have [...] room air Delia Parson MD 05/05/2018 13:50 [facility] - 05/04/2018 6:03 PM PSTFormatting of this note might be different from the origin al. [facility] [place] HOSPITALIST PROGRESS NOTE Patient: Tiny Campuzano : 1975: Age: 42 y.o. MedRec: [id number] Admission date: 04/23/2018 Hospital day # : [...] liver and heart failure. Echo 03/19/18 at [facility] showed EF 45% with apical WMA. Have [...] room air Delia Parson MD 05/04/2018 18:04 [facility] Danielle Vera RD - 05/04/2018 9:13 AM PSTIntake variable 25-90%. Experiencing occasional nausea with vom iting. Monitor intake and provide preferences as possible within diet and fluid modification . Pau Thomas MD - 3:05 PM PST [facility] [place] HOSPITALIST PROGRESS NOTE Patient: Tiny Campuzano : 1975: Age: 42 y.o. MedRec: [id number] Admission date: 04/23/2018 Hospital day # : [...] liver and heart failure. Echo 03/19/18 at [facility] showed EF 45% with apical WMA. Have [...] room air Pau Hernandez MD 05/03/2018 15:05 [facility] leming, Benjie Connell N - 05/02/2018 2:31 PM PSTReport received, from FREYA Estrada. Pt transferred to [facility] in stab le condition. ar Pau echols MD - 05/02/2018 12:38 PM PST [facility] [place] HOSPITALIST PROGRESS NOTE Patient: Tiny Campuzano : 1975: Age: 42 y.o. MedRec: [id number] Admission date: 04/23/2018 Hospital day # : [...] liver and heart failure. Echo 03/19/18 at [facility] showed EF 45% with apical WMA. Transitioned [...] aware that we this is not a physician representative medication) today to see if this helps. [...] age undetermined Confirmed by BONNIE SPARKS, EREN ([id number]) on 05/02/2018 8:38:52 AM Basic Metabolic Panel [...] room air Pau Hernandez MD 05/02/2018 12:39 [facility] Mary Torres RN - 0 [...] note might be different from the original. [facility] [place] HOSPITALIST PROGRESS NOTE Patient: Tiny Campuzano : 1975: Age: 42 y.o. MedRec: [id number] Admission date: 04/23/2018 Hospital day # : [...] liver and heart failure. Echo 03/19/18 at [facility] showed EF 45% with apical WMA. Transitioned [...] spray 2 spray Each Nare Daily Arvind epck MD 2 spray at 05/01/18918 hydrOXYzine pamoate [...] room air Pau Hernandez MD 05/01/2018 12:13 [facility] Pau Thomas MD - 2:22 PM PST [facility] [place] HOSPITALIST PROGRESS NOTE Patient: Tiny Campuzano : 1975: Age: 42 y.o. MedRec: [id number] Admission date: 04/23/2018 Hospital day # : [...] liver and heart failure. Echo 03/19/18 at [facility] showed EF 45% with apical WMA. Transitioned [...] room air Pau Hernandez MD 04/30/2018 14:22 [facility] Pau Thomas MD - 12:32 PM PST [facility] [place] HOSPITALIST PROGRESS NOTE Patient: Tiny Campuzano : 1975: Age: 42 y.o. MedRec: [id number] Admission date: 04/23/2018 Hospital day # : [...] liver and heart failure. Echo 03/19/18 at [facility] showed EF 45% with apical WMA. Transitioned [...] rate 0L/min Pau Hernandez MD 04/29/2018 12:33 [facility] Pau Thomas MD - 4:52 PM PST [facility] [place] HOSPITALIST PROGRESS NOTE Patient: Tiny Campuzano : 1975: Age: 42 y.o. MedRec: [id number] Admission date: 04/23/2018 Hospital day # : [...] liver and heart failure. Echo 03/19/18 at [facility] showed EF 45% with apical WMA. Our [...] waiting for assistance to go to the [facility]. ROS was performed and was [...] rate 0L/min Pau Hernandez MD 04/28/2018 16:52 [facility] arter, MD Pau - 02/2019 3:36 PM PST [facility] [place] HOSPITALIST PROGRESS NOTE Patient: Tiny Campuzano : 1975: Age: 42 y.o. MedRec: [id number] Admission date: 04/23/2018 Hospital day # : [...] liver and heart failure. Echo 03/19/18 at [facility] showed EF 45% with apical WMA. Our [...] Recent abnormal stress test Performed 03/22/18 at [facility] with the following results: Myocardial Perfusion Imaging [...] rate 0L/min Pau Hernandez MD 04/27/2018 15:36 [facility] Ana Dumont, armD - 04/27/2018 2:47 PM [...] bottles X Pharmacy list names: [place] [facility] [place] [employer] (Prescription Monitoring Program) X [employer] insurance reported [...] following medications in the ER on 04/16/18. [facility], patient's pharmacy was closed for [...] Prior to Admission Sig: Patient taking differently [employer] as: Hydroxyzine pamoate 25 mg cap 1 cap by mouth every 6 hours as needed for anxiety 1 cap by mouth every morning and evening as scheduled dose 1 cap midday if needed for anxiety Pantoprazole 40 mg tab 1 tab by mouth every morning Not taking patient believes medication was discontinued. However, still active order per Provider's office Best possible [employer] medication list after pharmacy review: PT REPORTED [...] by mouth nightly. Taking Historical Provid MD csico ciprofloxacin (CIPRO) 500 mg tablet Take 500 [...] and electronically signed by Maria A Mcnulty, [place] Operator 02/2019 13:04 Reviewed by Ana Lucio PharmD 04/27/2018 14:39 iJj bennett MD - 04/26/2018 11:09 AM PST [facility] [place] HOSPITALIST PROGRESS NOTE Patient: Tiny Campuzano : 1975: Age: 42 y.o. MedRec: [id number] Admission date: 04/23/2018 Hospital day # : [...] Echo 02/2018 and stress study 03/2018 at [facility]. ED course: NO O2 need, good UOP after lasix in ER -Studies: BNP 340/ Ammonia 44 CXR pulm edema, CT a/p without enough ascities for paracentes is -Treatment: lasix 40 / dialudid 1 mg x 2 Relevant Chart Review 03/15/2018- 04/01/2018 TRANSFER FROM [facility], Hospitalized [place] for cir rhosis r/o cholecystitis work up, deemed to not have acute cholecystitis, transferred from s urgery service to internal medicine service for orthostatic hypotension thought to be due to overdiuresis. 04/2015 [facility] EGD Upper endoscopy was remarkable for a [...] 45% presumed CAD myocardiac perfusion scan in [facility] Asa/statin/metoprolol. hold lisinopril while diuresis [...] Current Infusions: Jj Lundberg MD 04/26/2018 11:09 [facility] im, MD Jj - 04/25 12:48 PM PST [facility] [place] HOSPITALIST PROGRESS NOTE Patient: Tiny Campuzano : 1975: Age: 42 y.o. MedRec: [id number] Admission date: 04/23/2018 Hospital day # : 2 Physician author: jJ Lundberg MD Today: 04/25/2018 Reason for hospitalization [...] Echo 02/2018 and stress study 03/2018 at [facility]. ED course: NO O2 need, good UOP after lasix in ER -Studies: BNP 340/ Ammonia 44 CXR pulm edema, CT a/p without enough ascities for paracentes is -Treatment: lasix 40 / dialudid 1 mg x 2 Relevant Chart Review 03/15/2018- 04/01/2018 TRANSFER FROM [facility], Hospitalized [place] for cir rhosis r/o cholecystitis work up, deemed to not have acute cholecystitis, transferred from urgery service to internal medicine service for orthostatic hypotension thought to be due to overdiuresis. 04/2015 [facility] EGD Upper endoscopy was remarkable for a [...] 45% presumed CAD myocardiac perfusion scan in [facility] Asa/statin/metoprolol. hold lisinopril while diuresis [...] on exertion, + BM, ambulating to the [facility] voiding declined blank due to [...] Current Infusions: Jj Lundberg MD 04/25/2018 12:48 [facility] im, MD Jj - 04/24 10:54 AM PST [facility] [place] HOSPITALIST PROGRESS NOTE Patient: Tiny Campuzano : 1975: Age: 42 y.o. MedRec: [id number] Admission date: 04/23/2018 Hospital day # : [...] Echo 02/2018 and stress study 03/2018 at [facility]. ED course: NO O2 need, good UOP after lasix in ER -Studies: BNP 340/ Ammonia 44 CXR pulm edema, CT a/p without enough ascities for paracentes is -Treatment: lasix 40 / dialudid 1 mg x 2 Relevant Chart Review 03/15/2018- 04/01/2018 TRANSFER [facility], Hospitalized [place] for cir rhosis r/o cholecystitis work up, deemed to not have acute cholecystitis, transferred from [facility] service to internal medicine service for orthostatic hypotension thought to be due to overdiuresis. 04/2015 [facility] EGD Upper endoscopy was remarkable for a [...] 45% presumed CAD myocardiac perfusion scan in [facility] Asa/statin/metoprolol. hold lisinopril while diuresis [...] ECGs available Confirmed by BONNIE SPARKS, EREN ([id number]) on 04/24/2018 7:32:37 AM CBC with Differential [...] Current Infusions: Jj Lundberg MD 04/24/2018 10:54 [facility] documented in this encou nter Plan of [...] L?MRN: | | | | | | [id number] | | | [id number] | | | riteri | | | [...] | | | [facility] | | | [facility] | | | y | | | [...] | | | St. | | | [facility] | | | y | | | [...] | | | St. | | | [facility] | | | y | | | [...] | | | St. | | | [facility] | | | y | | | [...] | | | St. | | | [facility] | | | y | | | [...] | | | St. | | | [facility] | | | y | | | [...] | | | St. | | | [facility] | | | y | | | [...] | | | St. | | | [facility] | | | y H. | | [...] | | | St. | | | [facility] | | | y H. | | [...] | | | St. | | | [facility] | | | y H. | | [...] | | | St. | | | [facility] | | | y H. | | | [place] | | | [place] | | | [facility] | | | ncy | | | Chief | | | Compla | | | int: | | | ABD | | | PAIN | | | Dec 3, | | | 2018 | | | [facility] | [facility] | | | [facility] | | | y H. | | [...] | | | St. | | | [facility] | | | y H. | | [...] | | | St. | | | [facility] | | | y H. | | [...] | | | St. | | | [facility] | | | y H. | | [...] | | | St. | | | [facility] | | | y H. | | [...] | | | St. | | | [facility] | | | y H. | | [...] | | | St. | | | [facility] | | | y H. | | [...] | | | ent/f7 | | | [id number] | | | -0d5f- | | | [...] [address] | [place] | [phone] | | [facility] | | [address] | | | - LABORATORY | | [...] | mL/min/1.73m2 | [facility] | | | [place] | RATE,ESTIMATED | | MEDICAL | | | | mL/min/1.44f5Oscr than | | CENTER - | | [...] [address] | [place] | [phone] | | [facility] | | [address] | | | - LABORATORY | | [...] + | [facility] | [address] | [place] | [phone] | | [facility] | | [address] | | | - LABORATORY | | [...] + | [facility] | [address] | [place] | [phone] | | [facility] | | [address] | | | - LABORATORY | | [...] mL/min/1.73m2 | [facility] | | | [place] | RATE,ESTIMATED | | MEDICAL | | | | mL/min/1.36d0Zzsj than | | CENTER - | | [...] [address] | [place] | [phone] | | [facility] | | [address] | | | - LABORATORY | | [...] + | [facility] [facility] | [address] | [place] | [phone] | | [facility] | | [address] | | | - LABORATORY | | [...] ST. | [address] | [place], [place] | [phone] | | [facility] | | [address] | | | - LABORATORY | | [...] mL/min/1.73m2 | [facility] | | | [place] | RATE,ESTIMATED | | MEDICAL | | | | mL/min/1.80m0Pltq than | | CENTER - | | [...] [address] | [place] | [phone] | | [facility] | | [address] | | | - LABORATORY | | [...] + | [facility] | [address] | [place] | [phone] | | [facility] | | [address] | | | - LABORATORY | | [...] mL/min/1.73m2 | [facility] | | | [place] | RATE,ESTIMATED | | MEDICAL | | | | mL/min/1.20x7Makw than | | CENTER - | | [...] 7.9 (L) | 8.3 - 10.5 | [facility] | | | | | mg/dL | [...] [address] | [place] | [phone] | | [facility] | | [address] | | | - LABORATORY | | [...] | patients, use | K/uL | [facility] | | | Granulocyte | the special [...] 0.003-0.091 K/uL 0.0-0.9% 2nd 0.007-0.247 K/uL | [place] | | 0.1-2.0% 3rd 0.018-0.456 K/uL 0.1-2.0% | - LABORATORY | + + + + + + + + | Performing | Address | City/State/Zipcode | Phone Number | | Organization | | | | + + + + + | [facility] | [address] | [place] | [phone] | | [facility] | | [address] | | | - LABORATORY | | [...] + | [facility] | [address] | [place] | [phone] | | [facility] | | [address] | | | - LABORATORY | | [...] ST. | [address] | [place] | [phone] | | [facility] | | [address] | | | - LABORATORY | | [...] | | | | | mg/dL | [facility] | | | | | | MEDICAL | | | | | | CENTER - | | | | | | LABORATORY | | + + + + + + | eGFR if not | 54 (L)Comment: | >=60 | [facility] | | | | GLOMERULAR FILTRATION | mL/min/1.73m2 | [facility] | | | [place] | RATE,ESTIMATED | | MEDICAL | | | | mL/min/1.07y4Dzfi than | | CENTER - | | [...] | | | | | mg/dL | [facility] | | | | | | [...] [address] | [place] | [phone] | | [facility] | | [address] | | | - LABORATORY | | [...] | | | | EREN NICOLE MD ([id number]) | | | | | | on [...] | 1.15 | 0.60 - 1.30 | [facility] | | | | | [...] mL/min/1.73m2 | [facility] | | | [place] | RATE,ESTIMATED | | MEDICAL | | | | mL/min/1.80w5Ptvg than | | CENTER - | | [...] [address] | [place] | [phone] | | [facility] | | [address] | | | - LABORATORY | | [...] ranges: Trim. Absolute (K/uL) Percentage (%) | [facility] | | 1st 0.003-0.091 K/uL 0.0-0.9% 2nd 0.007-0.247 K/uL | MEDICAL CENTER | | 0.1-2.0% 3rd 0.018-0.456 K/uL 0.1-2.0% | - LABORATORY | + + + + + + + + | Performing | Address | City/State/Zipcode | Phone Number | | Organization | | | | + + + + + | [facility] | [address] | [place], [place] | [phone] | | [facility] | | [address] | | | - LABORATORY | | [...] [address] | [place] | [phone] | | [facility] | | [address] | | | [...] + | [facility] | [address] | [place] | [phone] | | [facility] | | [address] | | | - LABORATORY | | [...] ranges: Trim. Absolute (K/uL) Percentage (%) | [facility] | | 1st 0.003-0.091 K/uL 0.0-0.9% 2nd 0.007-0.247 K/uL | [place] | | 0.1-2.0% 3rd 0.018-0.456 K/uL 0.1-2.0% | - LABORATORY | + + + + + + + + | Performing | Address | City/State/Zipcode | Phone Number | | Organization | | | | + + + + + | [facility] | [address] | [place] | [phone] | | [facility] | | [address] | | | - LABORATORY | | [...] [address] | [place] | [phone] | | [facility] | | [address] | | | - LABORATORY | | [...] 13 | 7 - 18 mg/dL | [facility] | | | | | | [facility] | | | | | | MEDICAL | | | | | | CENTER - | | | | | | LABORATORY | | + + + + + + | Creatinine | 1.40 (H) | 0.60 - 1.30 | [facility] | | | | | mg/dL | [facility] | | | | | | MEDICAL | | | | | | CENTER - | | | | | | LABORATORY | | + + + + + + | eGFR if not | 41 (L)Comment: | >=60 | [facility] | | | | GLOMERULAR FILTRATION | mL/min/1.73m2 | [facility] | | | [place] | RATE,ESTIMATED | | MEDICAL | | | | mL/min/1.39c1Zttj than | | CENTER - | | [...] + | [facility] | [address] | [place] | [phone] | | [facility] | | [address] | | | - LABORATORY | | [...] Reticulocyt | | M/uL | [facility] | | | e Count | | | MEDICAL | | | | | | CENTER - | | | | | | LABORATORY | | + + + + + + | Immature | 17.10 (H)Comment: Values | 2.30 - 15.90 % | [facility] | | | Reticulocyt | above normal range | | [facility] | | | e Fraction | indicate [...] ST. | [address] | [place], [place] | [phone] | | [facility] | | [address] | | | - LABORATORY | | [...] [address] | [place] | [phone] | | [facility] | | [address] | | | - LABORATORY | | [...] + | [facility] | [address] | [place] | [phone] | | [facility] | | [address] | | | - LABORATORY | | [...] mL/min/1.73m2 | [facility] | | | [place] | RATE,ESTIMATED | | MEDICAL | | | | mL/min/1.66k2Bgyp than | | CENTER - | | [...] ST. | [address] | [place] | [phone] | | [facility] | | [address] | | | - LABORATORY | | [...] [address] | [place] | [phone] | | [facility] | | [address] | | | - LABORATORY | | [...] | 1.20 | 0.60 - 1.30 | [facility] | | | | | mg/dL | [facility] | | | | | | MEDICAL | | | | | | CENTER - | | | | | | LABORATORY | | + + + + + + | eGFR if not | 49 (L)Comment: | >=60 | [facility] | | | | GLOMERULAR FILTRATION | mL/min/1.73m2 | [facility] | | | [place] | RATE,ESTIMATED | | MEDICAL | | | | mL/min/1.64p8Dyet than | | CENTER - | | [...] [address] | [place] | [phone] | | [facility] | | [address] | | | - LABORATORY | | [...] ranges: Trim. Absolute (K/uL) Percentage (%) | [facility] | | 1st 0.003-0.091 K/uL 0.0-0.9% 2nd 0.007-0.247 K/uL | [place] | | 0.1-2.0% 3rd 0.018-0.456 K/uL 0.1-2.0% | - LABORATORY | + + + + + + + + | Performing | Address | City/State/Zipcode | Phone Number | | Organization | | | | + + + + + | [facility] | [address] | [place] | [phone] | | [facility] | | [address] | | | - LABORATORY | | [...] [address] | [place] | [phone] | | [facility] | | [address] | | | - LABORATORY | | [...] 8 | 7 - 18 mg/dL | [facility] | | | | | | [facility] | | | | | | MEDICAL | | | | | | CENTER - | | | | | | LABORATORY | | + + + + + + | Creatinine | 1.11 | 0.60 - 1.30 | [facility] | | | | | mg/dL | [facility] | | | | | | MEDICAL | | | | | | CENTER - | | | | | | LABORATORY | | + + + + + + | eGFR if not | 54 (L)Comment: | >=60 | [facility] | | | | GLOMERULAR FILTRATION | mL/min/1.73m2 | [facility] | | | [place] | RATE,ESTIMATED | | MEDICAL | | | | mL/min/1.11e0Fwtg than | | CENTER - | | [...] + | [facility] | [address] | [place] | [phone] | | [facility] | | [address] | | | - LABORATORY | | [...] ST. | [address] | [place] | [phone] | | [facility] | | [address] | | | - LABORATORY | | [...] [address] | [place] | [phone] | | [facility] | | [address] | | | - LABORATORY | | [...] | 1.02 | 0.60 - 1.30 | [facility] | | | | | mg/dL | [facility] | | | | | | MEDICAL | | | | | | CENTER - | | | | | | LABORATORY | | + + + + + + | eGFR if not | 59 (L)Comment: | >=60 | [facility] | | | | GLOMERULAR FILTRATION | mL/min/1.73m2 | [facility] | | | [place] | RATE,ESTIMATED | | MEDICAL | | | | mL/min/1.54d3Oqdh than | | CENTER - | | [...] + | [facility] | [address] | [place] | [phone] | | [facility] | | [address] | | | - LABORATORY | | [...] [address] | [place] | [phone] | | [facility] | | [address] | | | - LABORATORY | | [...] + | [facility] | [address] | [place] | [phone] | | [facility] | | [address] | | | - LABORATORY | | [...] [address] | [place] | [phone] | | [facility] | | [address] | | | - LABORATORY | | [...] [address] | [place] | [phone] | | [facility] | | [address] | | | - LABORATORY | | [...] mL/min/1.73m2 | [facility] | | | [place] | RATE,ESTIMATED | | MEDICAL | | | | mL/min/1.02a9Mzmq than | | CENTER - | | [...] + | [facility] | [address] | [place] | [phone] | | [facility] | | [address] | | | - LABORATORY | | [...] [address] | [place] | [phone] | | [facility] | | [address] | | | - LABORATORY | | [...] [address] | [place] | [phone] | | [facility] | | [address] | | | - LABORATORY | | [...] 90 | 70 - 109 mg/dL | [facility] | | | | | | [facility] | | | | | | [facility] | | | | | | [facility] - | | | | | | LABORATORY | | + + + + + + | BUN | 6 (L) | 7 - 18 mg/dL | [facility] | | | | | | [facility] | | | | | | [facility] | | | | | | [facility] - | | | | | | LABORATORY | | + + + + + + | Creatinine | 1.14 | 0.60 - 1.30 | [facility] | | | | | mg/dL | [facility] | | | | | | [facility] | | | | | | CENTER - | | | | | | LABORATORY | | + + + + + + | eGFR if not | 52 (L)Comment: | >=60 | [facility] | | | | GLOMERULAR FILTRATION | mL/min/1.73m2 | [facility] | | | [place] | RATE,ESTIMATED | | MEDICAL | | | | mL/min/1.12g1Qzaq than | | CENTER - | | [...] [address] | [place] | [phone] | | [facility] | | [address] | | | - LABORATORY | | [...] | | | | | | [employer] | | | | | [...] + | [address] | [address] | [place], [place] | [phone] | | [facility] | | [address] | | | - LABORATORY | | [...] [address] | [place] | [phone] | | [facility] | | [address] | | | - LABORATORY | | [...] + | [facility] | [address] | [place] | [phone] | | [facility] | | [address] | | | - LABORATORY | | [...] | mL/min/1.73m2 | ROSY | | | [place] | RATE,ESTIMATED | | MEDICAL | | | | mL/min/1.05z5Khru than | | CENTER - | | [...] [address] | [place] | [phone] | | [facility] | | [address] | | | - LABORATORY | | [...] | | | | | | [employer] | | | | | [...] ST. | [address] | [place] | [phone] | | [facility] | | [address] | | | - LABORATORY | | [...] | | | | | | [employer] | | | | | [...] [address] | [place] | [phone] | | [facility] | | [address] | | | - LABORATORY | | [...] | | | | EREN NICOLE MD ([id number]) | | | | | | on [...] [address] | [place] | [phone] | | [facility] | | [address] | | | - LABORATORY | | [...] [address] | [place] | [phone] | | [facility] | | [address] | | | - LABORATORY | | [...] | mL/min/1.73m2 | [facility] | | | [place] | RATE,ESTIMATED | | MEDICAL | | | | mL/min/1.47l3Qner than | | CENTER - | | [...] + | [facility] | [address] | [place] | [phone] | | [facility] | | [address] | | | - LABORATORY | | [...] + | [facility] | [address] | [place] | [phone] | | [facility] | | [address] | | | - LABORATORY | | [...] | | | | mmol/L | [facility] | | | | | [...] [address] | [place] | [phone] | | [facility] | | [address] | | | - LABORATORY | | [...] [address] | [place] | [phone] | | [facility] | | [address] | | | - LABORATORY | | [...] + | [facility] | [address] | [place] | [phone] | | [facility] | | [address] | | | - LABORATORY | | [...] [address] | [place] | [phone] | | [facility] | | [address] | | | - LABORATORY | | [...] | | | | | | [employer] | | | | | [...] [address] | [place] | [phone] | | [facility] | | [address] | | | - LABORATORY | | [...] (L) | 7 - 18 mg/dL | [facility] | | | | | | [facility] | | | | | | MEDICAL | | | | | | CENTER - | | | | | | LABORATORY | | + + + + + + | Creatinine | 1.12 | 0.60 - 1.30 | [facility] | | | | | [...] mL/min/1.73m2 | [facility] | | | [place] | RATE,ESTIMATED | | MEDICAL | | | | mL/min/1.94k9Egjz than | | CENTER - | | [...] [address] | [place] | [phone] | | [facility] | | [address] | | | - LABORATORY | | [...] 0.003-0.091 K/uL 0.0-0.9% 2nd 0.007-0.247 K/uL | [place] | | 0.1-2.0% 3rd 0.018-0.456 K/uL 0.1-2.0% | - LABORATORY | + + + + + + + + | Performing | Address | City/State/Zipcode | Phone Number | | Organization | | | | + + + + + | [facility] | [address] | [place] | [phone] | | [facility] | | [address] | | | - LABORATORY | | [...] | | | | BONNIE SPARKS, EREN ([id number]) | | | | | | on [...] + + | Coronary artery disease involving chinik coronary artery, angina presence unspecified, | | unspecified whether chinik or transplanted heart | + + | [...] | | | | PRN, Pain, Starting [facility] 04/29/18 | | AM PST | [...]
--- OUTSIDE RECORDS SUMMARY | ~2019-02-15 | XMS | Encounter Summary ---
Demographics + + + | Address | [address] | | | [place] [address] | + + + | Home Phone [...] Team Providers + +------+ + | Care Italian Teacher Name | Role | Phone | [...] 2016 | | GASTROENTEROLOGY | [address], [place] | Morbid obesity due | | | | [address] [place] | [address] [place], [place] | to excess calories | | | | 210 [place], [place] | [address] | (HCC); Aspiration | | | | [address] | | pneumonia, | | | | [phone] | | unspecified | | | | [...]
--- OUTSIDE RECORDS SUMMARY | ~2019-02-15 | XMS | Encounter Summary ---
Demographics + + + | Address | [address] | | | [place] [address] | + + + | Home Phone [...] Providers + +------+ + | Care Legal Support Assistant Name | Role | Phone | [...] + + | 08/31/ | Telephone | [facility] [place] | Jose Riojas MD | Procedure (surgery | | 2019 | | OTOLARYNGOLOGY [address] | [address] | time ) | | | | [address] | [address] [place], | | | | | [place] | [place] [address] | | | | | [address] | [phone] | | | | | [phone] | | | +--------+ + + + [...]
--- OUTSIDE RECORDS SUMMARY | ~2019-02-15 | XMS | Encounter Summary ---
Demographics + + + | Address | [address] | | | [place] [address] | + + + | Home Phone [...] Providers + +------+ + | Care Asphalt Spreader Name | Role | Phone | + [...] + + | 12/08/ | Telephone | [facility] | Jose Riojas MD | Procedure (surgery | | 2019 | | OTOLARYNGOLOGY [address] | [address] | ) | | | | [address] | [address] [place], | | | | | [place] | [place] [address] | | | | | [address] | [phone] | | | | | [phone] | | | +--------+ + + + [...]
--- OUTSIDE RECORDS SUMMARY | ~2019-02-15 | XMS | Encounter Summary ---
Demographics + + + | Address | [address] | | | [place] [address] | + + + | Home Phone [...] Team Providers + +------+ + | Care Successfactors Consultant Name | Role | Phone | [...] 2014 | | GASTROENTEROLOGY | [address], [place] | | | | | [address] [place] | [address] [place], [place] | | | | | [address] [place], [place] | [address] | | | | | [address] | | | | | | [phone] | | | +--------+ + + + [...]
--- OUTSIDE RECORDS SUMMARY | ~2019-02-15 | XMS | Encounter Summary ---
Demographics + + + | Address | [address] | | | [place] [address] | + + + | Home Phone [...] Team Providers + +------+ + | Care Med Asst Name | Role | Phone | + [...] | | vomiting, | | [address], | | | | | vomiting of | | [place] [address] | | | | | unspecified | | [place], | | | | | type | | [place] [address] | | | | | [place] | | Phone: | | | | | pneumonia | | [phone] | | | | | due to | | Fax: | | | | | gastric | | [phone] | | | | | secretions | [...] | 04/17/ | Surgery | [facility] | Keaton Wakefield MD | EGD | | 2016 | | MED CTR MP INTRA OP | [address], [place] | | | | | [address] | [address] [place] | | | | | [place], [place] | [id number] | | | | | [address] | | | | | | [phone] | | | +--------+---------+ + + + [...] | PROVATION | | 04/17/2015 12:31 PMMRN: [id number] #: [id number] of : | | | 1975Admit Type: AmbulatoryAge: 39Room: [facility] 01Gender: FemaleNote | | | [...] physician, the nurse, the anesthesiologist and the chemistry quality control technician | | | in the procedure [...] Addenda: 0Note Initiated On: 04/17/2015 12:31 PM [facility]. | | | [facility], [address] [place] [address] | | | [phone] | | | - The retroflexed view [...] On: 04/17/2015 12:31 PM | | | [facility]. [facility], [address] [place] [address] | | | [address] | | + + -+ + +---------+ + + | Performing | Address | City/State/[facility] | Phone [...] [address] | [place] | [phone] | | [facility] | | [address] | | | - LABORATORY | | [...] [address] | [place] | [phone] | | [facility] | | [address] | | | - LABORATORY | | [...] [address] | [place] | [phone] | | [facility] | | [address] | | | - LABORATORY | | [...] | 1.010, 1.015, | | | | [place], | | 1.020, 1.025 | | | | POC | | | | | + + + + + + | Internal QC | Acceptable | | | | + + + + + + | Lot Number | [id number] | | | | + + + [...] DUODENAL BIOPSY SPECIMEN SOURCE: A. DUODENAL | [place] [facility] | | BIOPSY CLINICAL HISTORY: R11.2 [...] | | peptic duodenitis or other abnormality. BES:[facility]:C3NR GROSS | | | DESCRIPTION: Received in formalin labeled "Tiny Campuazno" and | | | "duodenal biopsy" on the requisition are multiple pink-santa tissue | | | fragments measuring from <0.1-0.4 cm, all in (A1). ka:CINDI:[facility] | | | PERFORMING LABORATORY: Tissue processing and slide preparation were | | | performed by [facility], [address] [place] [address] [facility] | | | [place] [address] (Ammonia Distiller: Reilly Thomas M.D. CLIA#: | | | [id number]). Professional interpretation was performed by [facility] | | | [facility], [address] [place] [address], [address], [place] [address] | | | (Ammonia Distiller: Reilly Thomas M.D.; IA#: [id number]). | | | Diagnostician: Daniel Briscoe MD Pathologist Electronically Signed | | | 04/18/2015 | | + + + + +---------+ + + | Performing | Address | City/State/[facility] Mexic[facility]ode | Phone [...]
--- OUTSIDE RECORDS SUMMARY | ~2019-02-15 | XMS | Encounter Summary ---
Demographics + + + | Address | [address] | | | [place] [address] | + + + | Home Phone [...] Team Providers + +------+ + | Care Casino Controller Name | Role | Phone | + [...] 2019 | | OTOLARYNGOLOGY 301 | M, Service Liaison Representative | date ) | | | | [facility] | | | | | | [place] | | | | | | [address] | | | | | | [phone] | | | +--------+ + + + [...]
--- OUTSIDE RECORDS SUMMARY | ~2019-02-15 | XMS | Encounter Summary ---
Demographics + + + | Address | [address] | | | [place] [address] | + + + | Home Phone [...] Phone | + + +---------+ + | Praisa Reyes | ECON | Unknown | | + + +---------+ + | Sandra Oro | ECON | Unknown | | + + +---------+ + Care Team Providers + +------+ + | Care Instant Print Operator Name | Role | Phone | [...] | Radiology - | Diagnoses | | [facility] | | | Services | Diagnostic | Alcoholic | [facility], | [facility] | | | Required | Ultrasound | cirrhosis of | [facility] | | | | | liver | RESIDENTIAL LAWN SPECIALIST [address] | [address] | | | | | without | [place], [place] | CONFEDERATED | | | | | ascites | [address] [place] | [address] | | | | | (HCC) | [place], [place] | [place], [place] | | | | | Anemia, | [address] | [address] | | | | | unspecified | Phone: | Phone: | | | | | type | [phone] | [phone] | | | | | Hypokalemia | Fax: | Fax: | | | | | | [phone] | [phone] | | | | | Thrombocytop | [...] | [address] [place] | [place], [place] [address] | ascites (HCC) | | | | 210 [place], [place] | [place], [place] | (Primary Dx); | | | | [address] | [address] | Anemia, unspecified | | | | [phone] | | type; Hypokalemia; | | | [...]
--- OUTSIDE RECORDS SUMMARY | ~2019-02-15 | XMS | Encounter Summary ---
Demographics + + + | Address | [address] | | | [place] [address] | + + + | Home Phone [...] Team Providers + +------+ + | Care Retread Technician Name | Role | Phone | [...] | | | [address] [place] | [place] [address] | | | | | [address] | | | | | | [phone] | | | +--------+ + + + [...]
--- OUTSIDE RECORDS SUMMARY | ~2019-02-15 | XMS | Encounter Summary ---
Demographics + + + | Address | [address] | | | [place] [address] | + + + | Home Phone [...] Team Providers + +------+ + | Care Veterinary Meat Inspector Name | Role | Phone | [...] | Telephone | [facility] [place] | [facility], | Imaging | | 2019 | | GASTROENTEROLOGY | FRANK Oconnor [address] | | | | | [address] [place] | [place], [place] [address] | | | | | [address] [place], [place] | [place], [place] | | | | | [address] | [address] | | | | | [phone] | | | +--------+ + + + [...]
--- OUTSIDE RECORDS SUMMARY | ~2019-02-15 | XMS | Encounter Summary ---
Demographics + + + | Address | [address] | | | [place] [address] | + + + | Home Phone [...] Team Providers + +------+ + | Care Income Tax Preparer Name | Role | Phone | + [...] unspecified | [address] | [address] [place], | | | | | Nausea with | [place], [place] | [place] [address] | | | | | vomiting, | [address] [place] | [place], | | | | | unspecified | [place], [place] | [place] [address] | | | | | Opioid | [address] | Phone: | | | | | dependence, | Phone: | [phone] | | | | | uncomplicate | [phone] | Fax: | | | | | d (HCC) | Fax: | [phone] | | | | | Pneumonitis | [phone] | | | | | | due to | | | | | | | inhalation | | | | | | | of food and | | | | | | | vomit (HCC) | | | | | | | Procedures | | | | | | | HI | | | | | | | ESOPHAGOGAST | | | | | | | RODUODENOSCO | | | | | | | PY TRANSORAL | | | | | | | DIAGNOSTIC | | | | | | | HI EDG | | | | | | | TRANSORAL | | | | | | | BIOPSY | | | | | | | SINGLE/MULTI | | | | | | | PLE HI | | | | | | | [...] | | | | | 03/12>PEND | [place], | [address] | | | | | [facility] | [place] | Phone: | | | | | Office visit | [address] | [phone] | | | | | | Phone: | Fax: | | | | | | [phone] | [phone] | | | | | | Fax: | | | | | | | [phone] | | +--------+--------+ + + + + Encounter Details +--------+---------+ + + + | Date | Type | Department | Care Team | Description | +--------+---------+ + + + | 04/05/ | Office | [facility] | Keaton Wakefield MD | Dysphagia, | | 2016 | Visit | GASTROENTEROLOGY | [address] [place], [place] | unspecified | | | | [address] [place] | [address] [place], [place] | dysphagia; Opioid | | | | 210 [place], [place] | [address] | type dependence, | | | | [address] | | continuous (HCC); | | | | [phone] | | Nausea and vomiting, | | [...] normal. Nursing note and vitals reviewed. Assessment: sketch maker vomiting probably secondary to gastroparesis incompetent lower [...] made to ensure accuracy; however, inadvertent computerized patient registration rep errors may be pre sent. documented in this enc ounter Plan of Treatment + + +--------+ + + | Name | Type | Priori | Associated Diagnoses | Order Schedule | | | | ty | | | + + +--------+ + + | Procedure | Outpatient | Routin | Nausea and | Expected: 04/17/2015 | | [id number] | Referral | e | vomiting Morbid [...]
--- OUTSIDE RECORDS SUMMARY | ~2019-02-15 | XMS | Encounter Summary ---
Demographics + + + | Address | [address] | | | [place] [address] | + + + | Home Phone [...] + + + | Author | [facility] | | | and [place] | + + + | Organization | [facility] | | | [...] Team Providers + +------+ + | Care Child And Adolescent Psychologist Name | Role | Phone | + [...] [place], | | | | | [place], [place] | [place] [address] | | | | | [address] | [phone] | | | | | [phone] | | | +--------+ + + + [...]
--- OUTSIDE RECORDS SUMMARY | ~2019-02-15 | XMS | Clinical Summary ---
Demographics + + + | Address | [address] | | | [place] [address] | + + + | Home Phone | | + + + | Preferred Language | Unknown | + + + | Marital Status | Single | + + + | Sabianist Affiliation | Unknown | + + + | Race | Unknown | + + + | Ethnic Group | Unknown | + + + Author + + + | Author | [facility] (Historical as of | | | 10-30-18) | + + + | Organization | [facility] (Historical as of | | | 10-30-18) [...] Team Providers + +------+ + | Care Knitter Helper Name | Role | Phone | [...] +------+-------+ + | MEDICAID | MEDICA | [id number] | | | [address] | | | ID | | | | [place], [place] | | | [place] | | | | [address] | + +--------+ +------+-------+ + | /[facility] | YELLOW | [phone] | | | | | PLANS | [...] | [address] | | | doe/Marcial | | 1975 | [phone] | [place] | | | bryant | | | [address] | [address] | + +--------+ +--------+ + +"
--- OUTSIDE RECORDS SUMMARY | ~2019-02-15 | XMS | Encounter Summary ---
Demographics + + + | Address | [address] | | | [place] [address] | + + + | Home Phone [...] Team Providers + +------+ + | Care Pile Driving Superintendent Name | Role | Phone | + +------+ + | Julita Cabral PA-C | PCP | | + +------+ + Encounter Details +--------+ + + + + | Date | Type | Department | Care Team | Description | +--------+ + + + + | 01/05/ | Documentati | [facility] [place] | [facility], | | | 2019 | on | GASTROENTEROLOGY | Anastasia MEDICAL SALES ASSOCIATE [address] | | | | | [address] [place] | [place], [place] [address] | | | | | 210 [place], [place] | [place], [place] | | | | | [address] | [address] | | | | | [phone] | | | +--------+ + + + [...] 01/05/2019 8:24 AM PDTFaxed [facility].Electro nically signed by Becky Ferris CMA at 01/05/2019 8:25 AM PDTdocumented in this encoun ter Plan of Treatment Not on filedocumented as of this encounter Visit Diagnoses Not on filedocumented in this encounter"
--- OUTSIDE RECORDS SUMMARY | ~2019-02-15 | XMS | Encounter Summary ---
Demographics + + + | Address | [address] | | | [place] [address] | + + + | Home Phone [...] Team Providers + +------+ + | Care Rock Splitter Name | Role | Phone | + [...] (cirrhosis | PA-C [address] | [address] [place], | | | | | of liver) | [address] | [place] [address] | | | | | (HCC) | [place] | [place], | | | | | Procedures | [address] [place] [address] | [place] [address] | | | | | office visit | [place], | Phone: | | | | | | [place] | [phone] | | | | | | [address] | Fax: | | | | | | Phone: | [phone] | | | | | | [phone] | | | | | | | Fax: | | | | | | | [phone] | | +--------+--------+ + + + + Encounter Details +--------+---------+ + + + | Date | Type | Department | Care Team | Description | +--------+---------+ + + + | 07/07/ | Office | [facility] | [facility], | Alcoholic cirrhosis | | 2019 | Visit | GASTROENTEROLOGY | FRANK Oconnor [address] | of liver without | | | | [address] [place] | [place], [place] [address] | ascites (HCC) | | | | 210 [place], [place] | [place], [place] | (Primary Dx); | | | | [address] | [address] | Anemia, unspecified | | | | [phone] | | type; Hypokalemia; | | | [...] transpl antation evaluation. Urine test done at [facility] every other week. Labs to be [...] was initially seen in the ED in [facility] for abdominal pain and swelling 2017. She went home and was readmitted to the hospital 03/2018. She was then hospitalized in [place]. She was was hospitalized for 22 days. [...] Procedure: EGD; Surgeon: Keaton Wakefield MD; Location: [facility] Family History Family [...] call once she has been evaluated by trapeze performer. Will need to schedule EGD and colonoscopy [...] AFP every 6 months. Metabolic Bone Disease: [facility] Cirrhotics are at increased risk of developing [...]
--- OUTSIDE RECORDS SUMMARY | ~2019-02-15 | XMS | Encounter Summary ---
Demographics + + + | Address | [address] | | | [place] [address] | + + + | Home Phone [...] Team Providers + +------+ + | Care Orthopedic Podiatrist Name | Role | Phone | + [...] 2014 | | GASTROENTEROLOGY | [address] [place], [place] | | | | | [address] [place] | 210 [place], [place] | | | | | [address] [place], [place] | [address] | | | | | [address] | | | | | | [phone] | | | +--------+ + + + [...]
--- OUTSIDE RECORDS SUMMARY | ~2019-02-15 | XMS | Encounter Summary ---
Demographics + + + | Address | [address] | | | [place] [address] | + + + | Home Phone [...] Team Providers + +------+ + | Care Valve Steamer Name | Role | Phone | + [...] + + | 03/01/ | Telephone | [facility] | [facility], | Insurance | | 2018 | | GASTROENTEROLOGY | FRANK Oconnor [address] | Authorization | | | | [address] [place] | [place], [place] [address] | | | | | [address] [place] | [place] | | | | | [address] | [address] | | | | | [phone] | | | +--------+ + + + [...]
--- OUTSIDE RECORDS SUMMARY | ~2019-02-15 | XMS | Encounter Summary ---
Demographics + + + | Address | [address] | | | [place] [address] | + + + | Home Phone | | + + + | Preferred Language | Unknown | + + + | Marital Status | Single | + + + | Zoroastrianism Affiliation | 1041 | + + + [...] Team Providers + +------+ + | Care Flight Control Specialist Name | Role | Phone | [...] + + | 05/07/ | Telephone | [facility] | Irma Cason, | Hospital Follow-up | | 2019 | | [facility] | PharmD [address] | | | | | [address] [place] | [address] [place] | | | | | [place] [address] | [place] [address] | | | | | [phone] | [phone] | | +--------+ + + + + [...]
--- OUTSIDE RECORDS SUMMARY | ~2019-02-15 | XMS | Encounter Summary ---
Demographics + + + | Address | [address] | | | [place] [address] | + + + | Home Phone [...] Team Providers + +------+ + | Care Lens And Frames Prescription Clerk Name | Role | Phone | [...] | | | [address] [place] | [place] [address] | | | | | [address] | | | | | | [phone] | | | +--------+ + + + [...]
--- OUTSIDE RECORDS SUMMARY | ~2019-02-15 | XMS | Encounter Summary ---
Demographics + + + | Address | [address] | | | [place] [address] | + + + | Home Phone [...] Team Providers + +------+ + | Care Congressional Representative Name | Role | Phone | [...] [place], | | | | | [place], [place] | [place] [address] | | | | | [address] | [phone] | | | | | [phone] | | | +--------+ + + + [...]
--- OUTSIDE RECORDS SUMMARY | ~2019-02-15 | XMS | Encounter Summary ---
Demographics + + + | Address | [address] | | | [place] [address] | + + + | Home Phone | | + + + | Preferred Language | Unknown | + + + | Marital Status | Single | + + + | Islam Affiliation | 1041 | + + + | Race | Unknown | + + + | Ethnic Group | Unknown | + + + Author + + + | Author | [facility] | | | and [place] | + + + | Organization | [facility] | | [...] Team Providers + +------+ + | Care Procurement Agent Name | Role | Phone | [...] | | Neoplasm [place] | | [place] [address] | | | | | uncertain | | Phone: | | | | | behavior of | | [phone] | | | | | skin | | Fax: | | | | | Procedures | | [phone] | | | | | [place] EXCISION | | | | | | | TURBINATE,BECERRIL | | | | | | | BMUCOUS [place] | | | | | | | REPAIR OF | | | | | | | NASAL SEPTUM | | | | | | | [place] EXC | | | | | | [...] Description | +--------+---------+ + + + | 09/07/ | Surgery | [facility] | Jose Riojas MD | Canceled | | 2018 | | MED CTR OR INTRA OP | [address] | SEPTOPLASTY,INFEROR | | | | [address] | [address] [place], | TURBINOPLASTY | | | | [place], [place] | [place] [address] | | | | | [address] | [phone] | | | | | [phone] | | | +--------+---------+ + + + [...]
--- OUTSIDE RECORDS SUMMARY | ~2019-02-15 | XMS | Encounter Summary ---
Demographics + + + | Address | [address] | | | [place] [address] | + + + | Home Phone [...] Team Providers + +------+ + | Care New Accounts Representative Name | Role | Phone | [...] | | Neoplasm of | | [place] [address] | | | | | uncertain | | Phone: | | | | | behavior of | | [phone] | | | | | skin | | Fax: | | | | | Procedures | | [phone] | | | | | [place] EXCISION | | | | | | | TURBINATE,[place] | | | | | | | BMUCOUS [place] | | | | | | | REPAIR OF | | | | | | | NASAL SEPTUM | | | | | | | [place] EXC | | | | | | [...] + + | 09/07/ | Surgery | [facility] | Jose Riojas MD | Canceled | | 2018 | | [facility] | [address] [place] | SEPTOPLASTY,INFEROR | | | | [address] | [address] [place], | TURBINOPLASTY | | | | [place], [place] | [place] [address] | | | | | [address] | [phone] | | | | | [phone] | | | +--------+---------+ + + + [...]
--- OUTSIDE RECORDS SUMMARY | ~2019-02-15 | XMS | Encounter Summary ---
Demographics + + + | Address | [address] | | | [place] [address] | + + + | Home Phone [...] Team Providers + +------+ + | Care Hand Buffer Name | Role | Phone | + [...] | [address] [place] | [place], [address] | | | | | [address] [place], [place] | [place], [place] | | | | | [address] | [address] | | | | | [phone] | | | +--------+ + + + [...]
== END 2019-02-15 21:33 | disposition home or self-care (01) ==
LOC: ED 18:08
DX: I99.9 Unspecified disorder of circulatory system (principal); E11.9 Type 2 diabetes mellitus without complications; F32.9 Major depressive disorder, single episode, unspecified; J44.9 Chronic obstructive pulmonary disease, unspecified; I10 Essential (primary) hypertension; E78.5 Hyperlipidemia, unspecified; D64.9 Anemia, unspecified; Z79.899 Other long term (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
CPT/HCPCS: 99283

== ENCOUNTER 2019-08-25 11:54 | Emergency (ER) | payer OTHER ==
[~2019-08-25] VITALS: Ht 175.3 cm; Wt 108.9 kg
--- NOTE | ~2019-08-25 | EKG ---
[facility] [address] [place], [place] [address] Draft EK completed, results pending confirmation PATIENT NAME: KAILYN IBARRAT LUIS Electrocardiogram DATE OF : 75 PHYSICIAN: PRELIMINARY REPORT #: [id number] REPORT IS CONFIDENTIAL AND NOT TO BE RELEASED WITHOUT AUTHORIZATION
[2019-08-25] MEDS ORDERED: ONDANSETRON ODT8 MG PO (15:30)
[2019-08-25] MEDS ORDERED: LOMOTIL TABLET1 EACH PO (15:30)
== END 2019-08-25 15:57 | disposition home or self-care (01) ==
LOC: ED 11:54
DX: F10.239 Alcohol dependence with withdrawal, unspecified (principal); E11.9 Type 2 diabetes mellitus without complications; F32.9 Major depressive disorder, single episode, unspecified; J44.9 Chronic obstructive pulmonary disease, unspecified; I10 Essential (primary) hypertension; E78.5 Hyperlipidemia, unspecified; D64.9 Anemia, unspecified; Z79.899 Other long term (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; Y90.0 Blood alcohol level of less than 20 mg/100 ml
CPT/HCPCS: 71045; 80053; 81001; 83690; 83735; 84484; 85025; 93005; 93010; 96374; 96375; 96376; 99285-25; G0480; J2060; J3411; J7030

== ENCOUNTER 2019-10-07 13:47 | Emergency (ER) | payer OTHER ==
[~2019-10-07] VITALS: Ht 175.3 cm; Wt 108.9 kg
--- OUTSIDE RECORDS SUMMARY | ~2019-10-07 | XMS | Encounter Summary ---
Demographics + + + | Address | [address] | | | [place] [address] | + + + | Home Phone | | + + + | Preferred Language | Unknown | + + + | Marital Status | Single | + + + | Sikh Affiliation | 1041 | + + + | Race | Unknown | + + + | Ethnic Group | Unknown | + + + Author + + + | Author | [facility] | | | and [place] | + + + | Organization | [facility] | | | [...] Team Providers + +------+ + | Care Physician Relations Specialist Name | Role | Phone | + +------+ + | Julita Cabral PA-C | PCP | | + +------+ + Reason for Visit + + + | Reason | Comments | + + + | New Patient | sinus-pain,pressure and sinus headaches,been going on for about 7 | | | years | + + + Evaluate & Treat (Routine) +--------+--------+ + + + + | Status | Reason | Specialty | Diagnoses / | Referred By | Referred To | | | | | Procedures | Contact | Contact | +--------+--------+ + + + + | Closed | | Otolaryngolog | Diagnoses | Misha, | Jose Riojas | | | | y | recurrent | Julita H, | MD Roger [address] | | | | | sinisutus | PA-C [address] | | | | | | [address] | [address] | | | | | | [place] | [place], | | | | | | [address] | [place] [address] | | | | | | [place], | Phone: | | | | | | [place] | [phone] | | | | | | [address] | Fax: | | | | | | Phone: | [phone] | | | | | | [phone] | | | | | | | Fax: | | | | | | | [phone] | | +--------+--------+ + + + + Encounter Details +--------+---------+ + + + | Date | Type | Department | Care Team | Description | +--------+---------+ + + + | 07/07/ | Office | [facility] [place] | Jose Riojas MD | Deviated nasal | | 2018 | Visit | OTOLARYNGOLOGY [address] | [address] | septum (Primary Dx); | | | | [address] | [address] [place] | Hypertrophy of | | | | [place], [place] | [place] [address] | nasal turbinates; | | | | [address] | [phone] | Neoplasm of | | | | [phone] | | uncertain behavior | | | | | | of skin; SHARRON | | | | | | (obstructive sleep | | | | | | apnea) | +--------+---------+ + + + Social History + +-------+ [...] + + + | Blood Pressure | - | - | | + + + + + | Pulse | 69 | 07/07/2018 12:57 PM | | | | | PDT | | + + + + + | Temperature | - | - | | + + + + + | Respiratory Rate | 16 | 07/07/2018 12:57 PM | | | | | PDT | | + + + + + | Oxygen Saturation | 100% | 07/07/2018 12:57 PM | | | | | PDT | | + + + + + | Inhaled Oxygen | - | - | | | Concentration | | | | + + + + + | Weight | 132 kg (291 lb) | 07/07/2018 12:57 PM | | | | | PDT | | + + + + + | Height | 172.7 cm (5' 8") | 07/07/2018 12:57 PM | | | | | PDT | | + + + + + | Body Mass Index | 44.25 | 07/07/2018 12:57 PM | | | | | PDT | | + + + + + documented in this encounter H&P Notes Jose Riojas MD - 07/07/2018 1:00 PM PDT OTOLARYNGOLOGY HISTORY AND PHYSICAL EXAMINATION CHIEF COMPLAINT: Chief Complaint Patient presents with New Patient sinus-pain,pressure and sinus headaches,been going on for about 7 years HISTORY OF PRESENT ILLNESS: Patient comes in for evaluation because she has a lot of problems with the nasal passage ar ea. She can't breathe through her nose but very minimally. She has trouble blowing the nos e and has been diagnosed with obstructive sleep apnea. She tried to use a CPAP machine but was unable to tolerated and so was sent for an ENT evaluation. She's having no difficulty w ith swallowing and no change in her vocal function. No other ENT complaints. PAST MEDICAL HISTORY: Past Medical History: Diagnosis [...] bleeding Dyspnea Edema External hemorrhoids Frequent UTI GERD (gastroesophageal reflux disease) Heart murmur Hyperlipidemia Insomnia Iron deficiency anemia Nausea & vomiting Obesity Pneumonia Polycystic ovaries Polysubstance abuse (HCC) Pseudopolyposis of colon (HCC) Pustular folliculitis Pyelonephritis bilateral Reactive airway disease Sepsis (HCC) Vitamin D deficiency PAST SURGICAL HISTORY: Past Surgical History: Procedure Laterality Date APPENDECTOMY 03/02/2015 Biopsy of uterus lining 12-27-09 COLONOSCOPY 08-16-14 Postoperative diagnoses: irritated internal and external hemorrhoids. COLONOSCOPY with lesion removel 10/30/10 Incision and drainage of Vulva or perineal abcess 06-15-13 repair/graft femur head/neck 01-06-13 TONSILLECTOMY AND ADENOIDECTOMY 10-08-89 UPPER GASTROINTESTINAL ENDOSCOPY N/A 04/17/2015 Procedure: EGD; Surgeon: Keaton Wakefield MD; Location: [facility] SOCIAL HISTORY: The patient reports that she has never smoked. She has never used smokeless tobacco. She r eports that she has current or past drug history. Drugs: and Marijuana. She reports that e does not drink alcohol. FAMILY HISTORY: Family [...] 500 mg by mouth Daily. With Iron atorvaSTATin (LIPITOR) 40 mg tablet Take 40 mg by mouth. atorvaSTATin (LIPITOR) 40 mg tablet Take 40 mg by mouth nightly. bumetanide (BUMEX) 1 mg tablet Take 1 [...] 30 mLs by mouth 3 times daily. 1892 mL 2 lidocaine (LIDODERM) 5% patch [...] tablet Take 2 tablets by mouth Daily. 60 ta blet 1 spironolactone (ALDACTONE) 25 mg tablet Take [...] no asth ma, no emphysema/COPD. PHYSICAL EXAMINATION: Pulse 69 | Resp 16 | Ht 1.727 m (5' 8") | Wt 132 kg (291 lb) | SpO2 100% | BMI 44.25 k g/m Patient is an alert 43-year-old female patient who is overweight. Skin of the face nose an d ears all appeared to be without any lesions that need to be removed. Her is a growth on h er upper eyelid on the right-hand side that she would like to get rid of. The lesion starte d about a year ago and has slowly been getting larger. In the nasal passages she has a C-sh aped septum that is popped out into the inferior meatus on the left-hand side and bone was o ut into the ear passage on the right-hand side. She has very large inferior turbinates but no mass or other lesion noted. The nose was sprayed with some Damion-Synephrine and topical Xy locaine. In the oral cavity no mass or lesions are noted. In the oropharynx no mass or les ions are noted and posterior pharyngeal wall is smooth. Tongue and soft palate are smooth t he moves symmetrically but she does have a fairly large tongue. Neck there was no mass or l ymphadenopathy noted. Parotid submandibular and thyroid glands feel normal. The nose is re examined with the turbinates pullback and the bend in the septum is very evident that she co uld breathe better through her nose and she has been able to breathe in the last few years. ASSESSMENT: DIAGNOSES: 1. Deviated nasal septum 2. Hypertrophy of nasal turbinates 3. Neoplasm of uncertain behavior of skin 4. SHARRON (obstructive sleep apnea) PLAN: Patient will be scheduled for a septoplasty and bilateral inferior turbinoplasties. The gr owth on her upper eyelid but also be removed all the patient is asleep. The procedure along with risks and benefits have been all been described well to the patient. Once the nose is open she should be able to tolerate the CPAP machine which would then allow her to have her sleep apnea properly treated. She desires to move forward with the surgery as planned and this will be scheduled accordingly. Extended time was spent with the patient ELECTRONICALLY SIGNED BY: Jose Riojas MD, 07/07/2018 13:20 documented in this enco unter Plan of Treatment Not on filedocumented as of this encounter Visit Diagnoses + + | Diagnosis | + + | Deviated nasal septum - Primary | + + | Hypertrophy of nasal turbinates | + + | Neoplasm of uncertain behavior of skin | + + | SHARRON (obstructive sleep apnea) Obstructive sleep apnea (adult) (pediatric) | + + documented in this encounter
--- OUTSIDE RECORDS SUMMARY | ~2019-10-07 | XMS | Encounter Summary ---
Demographics + + + | Address | [address] | | | [place] [address] | + + + | Home Phone | | + + + | Preferred Language | Unknown | + + + | Marital Status | Single | + + + | Rastafari Affiliation | 1041 | + + + | Race | Unknown | + + + | Ethnic Group | Unknown | + + + Author + + + | Author | [facility] | | | and [place] | + + + | Organization | [facility] | | | and [...] Team Providers + +------+ + | Care Darkroom Worker Name | Role | Phone | + +------+ + | Julita Cabral PA-C | PCP | | + +------+ + Reason for Visit +--------+--------+ + | Reason | Onset | Comments | | | Date | | +--------+--------+ + | LABS | 01/05/ | | | | 2019 | | +--------+--------+ + Encounter Details +--------+ + + + + | Date | Type | Department | Care Team | Description | +--------+ + + + + | 01/05/ | Telephone | [facility] | LABS | | 2019 | | GASTROENTEROLOGY | [place] [place] [address] | | | | | [address] | [address] | | | | | [address] [place], [place] | [place] | | | | | [address] | [address] | | | | | [phone] | | | +--------+ + + + [...] this encounter Miscellaneous Notes Telephone Encounter - Iveth Chappell - 01/05/2019 8:[facility] they had not received a fax of lab orders from [facility]. I went ahead and printed out the ord ers from [facility] and faxed them to [phone].Electronically signed by Iveth Chappell at 8:22 AM PDTdocumented in this encounter Plan of Treatment Not on filedocumented as of this encounter Visit Diagnoses Not on filedocumented in this encounter"
--- OUTSIDE RECORDS SUMMARY | ~2019-10-07 | XMS | Encounter Summary ---
Demographics + + + | Address | [address] | | | [place] [address] | + + + | Home Phone | | + + + | Preferred Language | Unknown | + + + | Marital Status | Single | + + + | Pentecostalism Affiliation | 1041 | + + + | Race | Unknown | + + + | Ethnic Group | Unknown | + + + Author + + + | Author | [facility] | | | and [place] | + + + | Organization | [facility] | | | [...] Team Providers + +------+ + | Care Customer Service Associate Name | Role | Phone | + +------+ + | Julita Cabral PA-C | PCP | | + +------+ + Reason for Visit + +--------+ + | Reason | Onset | Comments | | | Date | | + +--------+ + | Appointment | 03/15/ | | | | 2018 | | + +--------+ + Encounter Details +--------+ + + + + | Date | Type | Department | Care Team | Description | +--------+ + + + + | 03/15/ | Telephone | [facility] [place] | Jose Riojas MD | Appointment | | 2018 | | OTOLARYNGOLOGY [address] | [address] | | | | | [address] | [address] [place] | | | | | [place], [place] | [place] [address] | | | | | [address] | [phone] | | | | | [phone] | | | +--------+ + + + [...] Notes Telephone Encounter - Iveth Chappell - 03/15/2018 8:54 AM PSTPatient called and LVM to set up an apt with Dr. Riojas for the 7th and 2:30 or 3:30; returned her call back and LVM th ose times are no longer available, asked her to call us back to arrange a time. I call Yesica remy at [facility] and asked her to send over a referral for patient. documented in this encounter Plan of Treatment Not on filedocumented as of this encounter Visit Diagnoses Not on filedocumented in this encounter"
--- OUTSIDE RECORDS SUMMARY | ~2019-10-07 | XMS | Encounter Summary ---
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 disposition: home with assist, senior living facility Post discharge occupational therapy recommendation: ongoing [...] to complete sponge bath Bathing, Level of [place]: supervised, set up required Assistive Device: none Bathing Assess/Train, Position: standing Bathing Impairments: strength decreased, impaired functional endurance/activity tolerance [facility], donned a clean with assist to tie. she managed her pants off/on over hips with toileting and during sponge bath. LB Dressing, Level of [place]: stand by assist Assistive Device: none LB Dressing Assess/Train, Position: standing LB Dressing Impairments: decreased flexibility, strength decreased, impaired balance, pain, impaired functional endurance/activity tolerance No physical assistance required Toileting, Level of [place]: supervised Assistive Device: grab bar Toileting Assess/Train, Position: sitting Toileting Impairments: decreased flexibility, strength decreased, impaired balance, pain, m otor control impaired, impaired functional endurance/activity tolerance leaning against counter for support Grooming, Level of [place]: supervised Assistive Device: none Grooming Assess/Train, Position: supported standing Grooming Impairments: strength decreased, impaired balance, impaired functional endurance/a ctivity tolerance Transfers Pt walked loop in hallway, ~220 ft. Reported this was the first time she had been up to [employer] today. Increased time, but no physical assistance required and no need for restbreak Sit-Stand, Level of [place]: modified independent Stand-Sit, Level of [place]: modified independent Lbi-Mbbjy-Szo, Assistive Device: 2 wheeled walker (FWW), none Toilet, Level of [place]: supervised Toilet, Assistive Device: 2 wheeled walker (FWW), grab bars Safety Issues: step length decreased, weight-shifting ability decreased Impairments: coordination impaired, impaired balance OT Goal Review Date Most Recent Value STG Review Date 05/09/18 at 05/02/2018 1407 Grooming Goal Most Recent Value STG Status progressing at 05/04/2018 0940 STG [place] Level modified independent at 05/02/2018 1407 STG Position standing at 05/02/2018 1407 LB Dressing Goal Most Recent Value STG Status progressing at 05/04/2018 0940 STG [place] Level modified independent at 05/02/2018 1407 Additional Goals #1 OT Most Recent Value STG Status continued at 05/04/2018 0940 STG Pt. will tolerate BLE compression wraps and other edema management techniques includin g MLM for edema management at 05/02/2018 1407 Electronically signed by: ANAND Bledsoe, 05/04/2018 12:19 lan of Care - Jo macdonald, GROUNDSKEEPER - 05/04/2018 5:58 AM PSTProblem: Patient Care [...] during day shift and q2h during shift manager. Answer call light i n person and/or [...] during day shift and q2h during shift manager. Answer call light i n person and/or [...] of accessory muscles, no retractions. lan of [facility] [facility] Filomena RN - 05/04/2018 4:34 AM PSTProblem: [...] during day shift and q2h during shift manager. Answer call light i n person and/or [...] during day shift and q2h during shift manager. Answer call light i n person and/or [...] vital sign response to mobility. Level of [place]: supervised Assistive Device: 2 wheeled walker (FWW) Distance (feet): suzanne. 275 ft Transfers Pt able to perform sit <> stand from regular height surfaces with increased time and effort but no physical assist required. Sit-Stand, Level of [place]: modified independent Stand-Sit, Level of [place]: modified independent Rep-Knwzg-Lic, Assistive Device: none, 2 wheeled walker (FWW) Toilet, Level of [place]: supervised Toilet, Assistive Device: grab bars Safety Issues: sequencing ability decreased, step length decreased, weight-shifting ability decreased Impairments: coordination impaired, impaired balance Bed Mobility Increased time and effort, no phys A needed Assistive Device: HOB elevated Supine to Sit, Level of [place]: modified independent Sit to Supine, Level of [place]: modified independent Safety Issues: decreased use of [...] STG Review Date 05/04/18 at 04/27/2018 1206 Ngyrwe-Lqs-Pjgfyn Goal Most Recent Value STG Status met at 04/28/2018 1145 STG [place] Level modified independent at 04/27/2018 1206 STG Assistive Device none at 04/27/2018 1206 STG Comments simulate home environment at 04/27/2018 1206 Kvf-Uzpwb-Ntf Goal Most Recent Value STG Status met at 05/03/2018 1608 STG [place] Level modified independent at 04/27/2018 1206 STG Comments with or w/o AD at 04/27/2018 1206 Gux-Zpjwl-Imy Goal Most Recent Value STG Status met at 05/03/2018 1608 STG [place] Level modified independent at 04/27/2018 1206 STG Comments with or w/o AD at 04/27/2018 1206 Gait Goal Most Recent Value STG Status progressing at 05/03/2018 1608 STG [place] Level modified independent at 04/27/2018 1206 STG [...] in a safe manner Outcome: Improving This casey saw operator went to follow up with patient and she was just getting started with PT. Attempted to call Luis Antonio, patients [facility] RN at [facility] [phone]. Apparently , [employer] phone system is down and this CM was sent to the [employer] VM--Left a VM asking her to call this CM back. This CM will re-visit with patient to further discuss any discharge needs tomorrow. Electro nically signed by: SHASHI Ulrich 05/03/2018 15:53 lan of Care - Bonita choi, Lorraine Zamora RN - 05/03/2018 3:13 [...] during day shift and q2h during shift manager. Answer call light i n person and/or [...] during day shift and q2h during shift manager. Answer call light i n person and/or [...] ADLs, not yet able to mobilize at [facility] for home discharge and medical status. Tiny will benefit from continued therapeutic intervention to address ongoing impairment s and increase safety and independence with activities necessary for safe discharge. Refer below for specific details regarding functional levels. Occupational Therapy Discharge Recommendations are: Recommended discharge disposition: home with assist, senior living facility Post discharge occupational therapy recommendation: ongoing [...] thread B feet LB Dressing, Level of [place]: maximal assist (25% patient effort) Assistive Device: none LB Dressing Assess/Train, Position: sitting, standing LB Dressing Impairments: decreased flexibility, strength decreased, impaired balance, pain, impaired functional endurance/activity tolerance No physical assistance required Toileting, Level of [place]: supervised Assistive Device: grab bar Toileting Assess/Train, Position: sitting Toileting Impairments: decreased flexibility, strength decreased, impaired balance, pain, m otor control impaired, impaired functional endurance/activity tolerance Bed Mobility Sit to Supine, Level of [place]: modified independent Safety Issues: decreased use of legs for bridging/pushing Impairments: coordination impaired Transfers Pt walked loop in hallway, ~220 ft. Reported this was the first time she had been up to [employer] today. Increased time, but no physical assistance required and no need for restbreak Sit-Stand, Level of [place]: modified independent Stand-Sit, Level of [place]: modified independent Zvx-Iteps-Aye, Assistive Device: none, 2 wheeled walker (FWW) Toilet, Level of [place]: supervised Toilet, Assistive Device: grab bars Safety Issues: sequencing ability decreased, step length decreased, weight-shifting ability decreased Impairments: coordination impaired, impaired balance OT Goal Review Date Most Recent Value STG Review Date 05/09/18 at 05/02/2018 1407 Grooming Goal Most Recent Value STG Status new at 05/02/2018 1407 STG [place] Level modified independent at 05/02/2018 1407 STG Position standing at 05/02/2018 1407 LB Dressing Goal Most Recent Value STG Status progressing at 05/03/2018 1349 STG [place] Level modified independent at 05/02/2018 1407 Additional [...] during day shift and q2h during shift manager. Answer call light i n person and/or [...] during day shift and q2h during shift manager. Answer call light i n person and/or [...] lan of Care - Yani Sondra coffey, GROUNDSKEEPER - 05/03/2018 4:28 AM PSTProblem: Patient Care [...] during day shift and q2h during shift manager. Answer call light i n person and/or [...] during day shift and q2h during shift manager. Answer call light i n person and/or [...] during day shift and q2h during shift manager. Answer call light i n person and/or [...] Comment: Lives alone, meals delivered, nurse from [facility] visits along with others in community. [...] STG Status new at 05/02/2018 1407 STG [place] Level modified independent at 05/02/2018 1407 STG Position standing at 05/02/2018 1407 LB Dressing Goal Most Recent Value STG Status new at 05/02/2018 1407 STG [place] Level modified independent at 05/02/2018 1407 Additional [...] during day shift and q2h during shift manager. Answer call light i n person and/or [...] during day shift and q2h during shift manager. Answer call light i n person and/or [...] sign response (see flow sheets). Level of [place]: supervised Assistive Device: 2 wheeled walker (FWW) Distance (feet): 300 Transfers Pt requires increased time and effort but able to demo safe transfer technique without mary marin. Sit-Stand, Level of [place]: modified independent Stand-Sit, Level of [place]: modified independent Xdg-Ezcne-Yxw, Assistive Device: none, 2 wheeled walker (FWW) Safety Issues: sequencing ability decreased, step length decreased, weight-shifting ability decreased Impairments: coordination impaired, impaired balance Bed Mobility Increased time and effort, no phys A needed Assistive Device: bed rails, HOB elevated Supine to Sit, Level of [place]: modified independent Sit to Supine, Level of [place]: not tested Safety Issues: decreased use of [...] STG Review Date 05/04/18 at 04/27/2018 1206 Kcehrf-Jbe-Ezupvs Goal Most Recent Value STG Status met at 04/28/2018 1145 STG [place] Level modified independent at 04/27/2018 1206 STG Assistive Device none at 04/27/2018 1206 STG Comments simulate home environment at 04/27/2018 1206 Odh-Mwmnv-Kme Goal Most Recent Value STG Status progressing at 04/29/2018 1100 STG [place] Level modified independent at 04/27/2018 1206 STG Comments with or w/o AD at 04/27/2018 1206 Sew-Phkmv-Wxk Goal Most Recent Value STG Status progressing at 04/29/2018 1100 STG [place] Level modified independent at 04/27/2018 1206 STG Comments with or w/o AD at 04/27/2018 1206 Gait Goal Most Recent Value STG Status progressing at 04/29/2018 1100 STG [place] Level modified independent at 04/27/2018 1206 STG [...] during day shift and q2h during shift manager. Answer call light i n person and/or [...] lan of Care - Eric Garcia V, GROUNDSKEEPER - 05/02/2018 4:42 AM PSTProblem: Patient Care [...] during day shift and q2h during shift manager. Answer call light i n person and/or [...] during day shift and q2h during shift manager. Answer call light i n person and/or [...] during day shift and q2h during shift manager. Answer call light i n person and/or [...] maintained. lan of Care - Tammy Baron, GROUNDSKEEPER - 04/30/2018 8:51 PM PSTProblem: Patient Care [...] during day shift and q2h during shift manager. Answer call light i n person and/or [...] during day shift and q2h during shift manager. Answer call light i n person and/or [...] she is voiding. lan of Care - [facility], Rosy Duran RN - 04/30/2018 10:25 [...] during day shift and q2h during shift manager. Answer call light i n person and/or [...] assist lan of Care - JunaidEder pink, GROUNDSKEEPER - 04/30/2018 5:12 AM PSTProblem: Patient Care [...] during day shift and q2h during shift manager. Answer call light i n person and/or [...] during day shift and q2h during shift manager. Answer call light i n person and/or [...] during day shift and q2h during shift manager. Answer call light i n person and/or [...] known. Will continue to monitor. lan of [facility] [place] - Falguni Hebert - 04/29/2018 1:04 PM PSTFaxed updated chart notes to [facility]. Received the communication result report; result ok Electronically signed by: Falguni Hebert 04/29/2018 13:04 This CM left a message on the voicemail of Luis Antonio at [facility] asking for a return call. PH: [phone] Electronically signed by: Falguni Hebert 04/29/2018 15:03 [...] during day shift and q2h during shift manager. Answer call light i n person and/or [...] good tolerance, stability, slowed rosa Level of [place]: stand by assist Assistive Device: 2 wheeled walker (FWW) Distance (feet): 300' Transfers No phys A needed, increased time/effort, needs intermittent object support Sit-Stand, Level of [place]: supervised Stand-Sit, Level of [place]: supervised Isp-Fhekb-Gat, Assistive Device: 2 wheeled walker (FWW) Toilet, Level of [place]: supervised Toilet, Assistive Device: grab bars Safety Issues: sequencing ability decreased, step length decreased, weight-shifting ability decreased Impairments: coordination impaired, impaired balance Bed Mobility Increased time and effort, no phys A needed Assistive Device: bed rails, HOB elevated Supine to Sit, Level of [place]: modified independent Sit to Supine, Level of [place]: not tested Safety Issues: decreased use of [...] STG Review Date 05/04/18 at 04/27/2018 1206 Izthfm-Kug-Altuqi Goal Most Recent Value STG Status met at 04/28/2018 1145 STG [place] Level modified independent at 04/27/2018 1206 STG Assistive Device none at 04/27/2018 1206 STG Comments simulate home environment at 04/27/2018 1206 Eee-Oqioq-Zov Goal Most Recent Value STG Status progressing at 04/29/2018 1100 STG [place] Level modified independent at 04/27/2018 1206 STG Comments with or w/o AD at 04/27/2018 1206 Vdy-Cudgu-Fag Goal Most Recent Value STG Status progressing at 04/29/2018 1100 STG [place] Level modified independent at 04/27/2018 1206 STG Comments with or w/o AD at 04/27/2018 1206 Gait Goal Most Recent Value STG Status progressing at 04/29/2018 1100 STG [place] Level modified independent at 04/27/2018 1206 STG [...] during day shift and q2h during shift manager. Answer call light i n person and/or [...] hypervolemia type [E87.70] 3+ pitting edema [R60.9]. Steel Pourer Helper visit was in response to the patient's request to attend a holiness service. Spiritual Evaluation: The patient welcomed spiritual care and was glad to attend the [facility] Chapel service. She i s Islam and has desired to attend mass at her own [facility], but lenz s been unable to in the last few weeks due to her illness and lack of transportation. She is connected with Father Onur at her [facility]orm[facility]. 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 Spiritual Interventions: The organic search lead attended, brought patient to the chapel by [...] during day shift and q2h during shift manager. Answer call light i n person and/or [...] during day shift and q2h during shift manager. Answer call light i n person and/or [...] accesso ry muscles. lan of Care - Isaac House RRT - 04/28/2018 5:44 PM PSTProblem: [...] during day shift and q2h during shift manager. Answer call light i n person and/or [...] diminished breath s ounds. lan [facility] - Debra Solorzano RN - 04/28/2018 4:08 [...] 10:45. I will pass on to shift manager that she wo uld like a wheelchair and chaplain Angelina, said she would wheel her down to chap at the t lorenzo. lan [facility] - Angelina Whaley Chaplain - 04/28/2018 12:22 [...] during day shift and q2h during shift manager. Answer call light i n person and/or [...] hypervolemia type [E87.70] 3+ pitting edema [R60.9]. Steel Pourer Helper visit was part of routine rounding. Spiritual Evaluation: This was a follow-up visit to offer prayer support and assess any further patient needs. T he patient welcomed the visit and prayer. She also requested a Bible as well as any other C hristian literature such as the [employer] devotional pamphlet. She attends in [place], [place] where Father Onur is a deadener. Her sister continues to b e a support to her. She shared that she has been hospitalized in several locations since w ' and that it has been challenging and that she has felt discouraged at times. T he patient would like to attend Islam chapel services on at 11 am. Spiritual Interventions: The organic search lead attended, offered care, witnessed patient's story, responded to emotional pain , identified concerns, provided a Bible and offered prayer. Construction Pit Worker also spoke with the sera hawkins to [...] during day shift and q2h during shift manager. Answer call light i n person and/or [...] hypervolemia type [E87.70] 3+ pitting edema [R60.9]. Steel Pourer Helper visit was part of routine rounding. Spiritual Evaluation: The patient was resting in a bed attended by her sister. She was pleasant and engaged acti vely and with humor. She had requested Islam spiritual support and was glad to finally s ee the organic search lead. She was also interested in attending chapel services. The patient express ed that at times she feels anxious and overwhelmed when her room is very busy. She feels gr ateful for her care and she says that she has everything she needs at home. Her sister is s upportive as well as some friends in [place]. Spiritual Interventions: The organic search lead attended, offered care, witnessed patient's story, explored [...] during day shift and q2h during shift manager. Answer call light i n person and/or [...] widened NANY and lateral shifts Level of [place]: contact guard assist, stand by assist Assistive Device: cane (straight, single point) Distance (feet): 175' Transfers Pt completes transfers well with minimal object support, increased time/effort Sit-Stand, Level of [place]: supervised Stand-Sit, Level of [place]: supervised Jet-Vurqs-Iuc, Assistive Device: cane (straight, single point) Safety Issues: sequencing ability decreased, step length decreased, weight-shifting ability decreased Impairments: coordination impaired, impaired balance Bed Mobility Practiced bed mobility with bed flat, no railing to simulate home environment. Able to comp lete with increased time and effort, no phys A needed Assistive Device: none, bed rails Supine to Sit, Level of [place]: modified independent Sit to Supine, Level of [place]: modified independent Safety Issues: decreased use of [...] STG Review Date 05/04/18 at 04/27/2018 1206 Qibjne-Pef-Afefsu Goal Most Recent Value STG Status met at 04/28/2018 1145 STG [place] Level modified independent at 04/27/2018 1206 STG Assistive Device none at 04/27/2018 1206 STG Comments simulate home environment at 04/27/2018 1206 Vwu-Smlzo-Agm Goal Most Recent Value STG Status progressing at 04/28/2018 1145 STG [place] Level modified independent at 04/27/2018 1206 STG Comments with or w/o AD at 04/27/2018 1206 Gvg-Yazml-Kee Goal Most Recent Value STG Status progressing at 04/28/2018 1145 STG [place] Level modified independent at 04/27/2018 1206 STG Comments with or w/o AD at 04/27/2018 1206 Gait Goal Most Recent Value STG Status progressing at 04/28/2018 1145 STG [place] Level modified independent at 04/27/2018 1206 STG [...] during day shift and q2h during shift manager. Answer call light i n person and/or [...] during day shift and q2h during shift manager. Answer call light i n person and/or [...] Pt notes having gambino sportation services through [employer]. Will do trial with cane next visit [...] Comment: Lives alone, meals delivered, [facility] along with others in community. [...] occasional furniture or wall support Level of [place]: stand by assist Assistive Device: 2 wheeled walker (FWW), bariatric Distance (feet): 150' + 15', 25' Transfers Pt transfers w/o phys A needed, increased time/effort. Able to sit and rise from low toilet with grab bar A Sit-Stand, Level of [place]: supervised Stand-Sit, Level of [place]: supervised Ptx-Iixqh-Udv, Assistive Device: 2 wheeled walker (FWW), bariatric Toilet, Level of [place]: supervised Toilet, Assistive Device: grab bars Safety Issues: sequencing ability decreased, step length decreased, weight-shifting ability decreased Impairments: coordination impaired Bed Mobility Pt with HOB fully elevated, no phys A needed for OOB, increased time/effort Assistive Device: HOB elevated, bed rails Supine to Sit, Level of [place]: supervised Sit to Supine, Level of [place]: not tested Safety Issues: decreased use of [...] STG Review Date 05/04/18 at 04/27/2018 1206 Mjrnqr-Nux-Ritxyi Goal Most Recent Value STG Status new at 04/27/2018 1206 STG [place] Level modified independent at 04/27/2018 1206 STG Assistive Device none at 04/27/2018 1206 STG Comments simulate home environment at 04/27/2018 1206 Dyb-Ldrcz-Wpt Goal Most Recent Value STG Status new at 04/27/2018 1206 STG [place] Level modified independent at 04/27/2018 1206 STG Comments with or w/o AD at 04/27/2018 1206 Zll-Uktno-Rcb Goal Most Recent Value STG Status new at 04/27/2018 1206 STG [place] Level modified independent at 04/27/2018 1206 STG Comments with or w/o AD at 04/27/2018 1206 Gait Goal Most Recent Value STG Status new at 04/27/2018 1206 STG [place] Level modified independent at 04/27/2018 1206 STG [...] during day shift and q2h during shift manager. Answer call light i n person and/or [...] between cares. lan of Care - [facility] Eder salvador, GROUNDSKEEPER - 04/26/2018 4:07 PM PSTProblem: Patient Care [...] during day shift and q2h during shift manager. Answer call light i n person and/or [...] at home Electronically signed by: Eder Morejon, GROUNDSKEEPER 04/26/2018 16:07 lan of Care - Donald [...] during day shift and q2h during shift manager. Answer call light i n person and/or [...] to sleep well between cares. lan of [facility] Robert macdonald, Eva Nicolas RRT - 04/25/2018 [...] during day shift and q2h during shift manager. Answer call light i n person and/or [...] during day shift and q2h during shift manager. Answer call light i n person and/or [...] during day shift and q2h during shift manager. Answer call light i n person and/or [...] needed. lan of Care - Mary Cabrera, [facility] - 04/24/2018 1:06 PM PSTDischarge Planning Goal: Pt to be discharged in a safe manner Summary /Intervention: Met with patient to discuss potential discharge needs. Tiny is alert and well oriented, lying in bed. Pt states she lives alone in a single level [facility] in [place]. She appears to be well co [facility]nected with [facility]. She has a nurse, Luis [...] room). Pt reports that she was in [place] for 22 days, only recently discharged home. Pt hopes to be able to discharge directly home. States her sister will provide transportati on. Plan: CM to follow Anticipate return home with support from [facility]. Keep [facility] updated on her discharge needs Electronically [...] during day shift and q2h during shift manager. Answer call light i n person and/or [...] during day shift and q2h during shift manager. Answer call light i n person and/or [...] L?MRN: | | | | | | [id number] | | | [id number] | | | riteri | | | [...] | | | St. | | | [place] | | | y | | | [...] | | | St. | | | [place] | | | y | | | [...] | | | St. | | | [place] | | | y | | | [...] | | | St. | | | [place] | | | y | | | [...] | | | St. | | | [place] | | | y | | | [...] | | | St. | | | [place] | | | y | | | [...] | | | St. | | | [place] | | | y | | | [...] | | | St. | | | [place] | | | y H. | | [...] | | | St. | | | [place] | | | y H. | | [...] | | | ified | | | Bebeto | | | 29, | | | 2019 | | | [facility] | | | [facility] | | | [place] | | | y H. | | [...] | | | St. | | | [place] | | | y H. | | | [place]endl. | | | [place] | | | Emerge | | | ncy | | | Chief | | | Compla | | | int: | | | ABD | | | PAIN | | | Dec 3, | | | 2018 | | | [facility] | | | St[facility] | | | [place] | | | y H. | | [...] | | | St. | | | [place] | | | y H. | | [...] | | | St. | | | [place] | | | y H. | | [...] | | | St. | | | [place] | | | y H. | | [...] | | | St. | | | [place] | | | y H. | | [...] | | | St. | | | [place] | | | y H. | | [...] | | | St. | | | [place] | | | y H. | | [...] | | | ent/[id number] | | | [id number] | | | -[id number] | | | [...] [address] | [place] | [phone] | | [facility] | | [address] | | | - LABORATORY | | [...] 12 | 7 - 18 mg/dL | [facility] | | | | | | [facility] | | | | | | MEDICAL | | | | | | CENTER - | | | | | | LABORATORY | | + + + + + + | Creatinine | 1.07 | 0.60 - 1.30 | [facility] | | | | | mg/dL | [facility] | | | | | | MEDICAL | | | | | | CENTER - | | | | | | LABORATORY | | + + + + + + | eGFR if not | 56 (L)Comment: | >=60 | [facility] | | | | GLOMERULAR FILTRATION | mL/min/1.73m2 | [facility] | | | EMIRATI | RATE,ESTIMATED | | MEDICAL | | | | mL/min/1.12l0Gvrr than | | CENTER - | | [...] | | | | mg/dL | [facility] | | | | [...] + | [facility] | [address] | [place] | [phone] | | [facility] | | [address] | | | - LABORATORY | | [...] [address] | [place] | [phone] | | [facility] | | [address] | | | - LABORATORY | | [...] + + | Performing | Address | City/State/[facility] | Phone Number | | Organization | | | | + + + + + | [facility] | [address] | [place] | [phone] | | [facility] | | [address] | | | - LABORATORY | | [...] 11 | 7 - 18 mg/dL | [facility] | | [facility] | | | [facility] | | | | | | MEDICAL | | | | | | CENTER - | | | | | | LABORATORY | | + + + + + + | Creatinine | 1.10 | 0.60 - 1.30 | [facility] | | | | | mg/dL | [facility] | | | | | | MEDICAL | | | | | | CENTER - | | | | | | LABORATORY | | + + + + + + | eGFR if not | 54 (L)Comment: | >=60 | [facility] | | | | GLOMERULAR FILTRATION | mL/min/1.73m2 | [facility] | | | EMIRATI | RATE,ESTIMATED | | MEDICAL | | | | mL/min/1.32x7Diwh than | | CENTER - | | [...] + | [facility] | [address] | [place] | [phone] | | [facility] | | [address] | | | - LABORATORY | | [...] [address] | [place] | [phone] | | [facility] | | [address] | | | - LABORATORY | | | | + + + + + Magnesium (05/04/2018 5:01 AM PST) + +-------+ + + + | Component | Value | Ref Range | Performed | Pathologist | | | | | At | Signature | + +-------+ + + + | Magnesium | 1.9 | 1.8 - 2.5 mg/dL | [facility] [...] [address] | [place] | [phone] | | [facility] | | [address] | | | - LABORATORY | | [...] 9 | 7 - 18 mg/dL | [facility] | | | | | | [facility] | | | | | | MEDICAL | | | | | | CENTER - | | | | | | LABORATORY | | + + + + + + | Creatinine | 1.03 | 0.60 - 1.30 | [facility] | | | | | mg/dL | [facility] | | | | | | MEDICAL | | | | | | CENTER - | | | | | | LABORATORY | | + + + + + + | eGFR if not | 59 (L)Comment: | >=60 | [facility] | | | | GLOMERULAR FILTRATION | mL/min/1.73m2 | [facility] | | | EMIRATI | RATE,ESTIMATED | | MEDICAL | | | | mL/min/1.58e2Puht than | | CENTER - | | [...] + | [facility] | [address] | [place] | [phone] | | [facility] | | [address] | | | - LABORATORY | | [...] [address] | [place] | [phone] | | [facility] | | [address] | | | - LABORATORY | | [...] + + + + + + | eGFR if not | 54 (L)Comment: | >=60 | [facility] | | | | GLOMERULAR FILTRATION | mL/min/1.73m2 | [facility] | | | EMIRATI | RATE,ESTIMATED | | MEDICAL | | | | mL/min/1.07l7Esoc than | | CENTER - | | [...] + | [facility] | [address] | [place] | [phone] | | [facility] | | [address] | | | - LABORATORY | | [...] | | Cells | | M/uL | [facility] | | | | | | MEDICAL | | | | | | CENTER - | | | | | | LABORATORY | | + + + + + + | Hemoglobin | 9.0 (L) | 11.5 - 16.0 | [facility] | | | | | g/dL | [facility] | | | | [...] | Basophils | | K/uL | [facility] | [...] ranges: Trim. Absolute (K/uL) Percentage (%) | [facility] | | 1st 0.003-0.091 K/uL 0.0-0.9% 2nd 0.007-0.247 K/uL | [facility] | | 0.1-2.0% 3rd 0.018-0.456 K/uL 0.1-2.0% | - LABORATORY | + + + + + + + + | Performing | Address | City/State/Zipcode | Phone Number | | Organization | | | | + + + + + | [facility] | [address] | [place] | [phone] | | [facility] | | [address] | | | - LABORATORY | | [...] [address] | [place] | [phone] | | [facility] | | [address] | | | - LABORATORY | | [...] + | [facility] | [address] | [place] | [phone] | | [facility] | | [address] | | | - LABORATORY | | [...] 11 | 7 - 18 mg/dL | [facility] | | | | | | [facility] | | | | | | MEDICAL | | | | | | CENTER - | | | | | | LABORATORY | | + + + + + + | Creatinine | 1.10 | 0.60 - 1.30 | [facility] | | | | | mg/dL | [facility] | | | | | | MEDICAL | | | | | | CENTER - | | | | | | LABORATORY | | + + + + + + | eGFR if not | 54 (L)Comment: | >=60 | [facility] | | | | GLOMERULAR FILTRATION | mL/min/1.73m2 | [facility] | | | EMIRATI | RATE,ESTIMATED | | MEDICAL | | | | mL/min/1.57f2Kvwl than | | CENTER - | | [...] + | [facility] | [address] | [place] | [phone] | | [facility] | | [address] | | | - LABORATORY | | [...] | | | | EREN NICOLE MD ([id number]) | | | | | | on [...] + + + + + + | eGFR if not | 52 (L)Comment: | >=60 | [facility] | | | | GLOMERULAR FILTRATION | mL/min/1.73m2 | [facility] | | | EMIRATI | RATE,ESTIMATED | | MEDICAL | | | | mL/min/1.79h3Rofj than | | CENTER - | | [...] [address] | [place] | [phone] | | [facility] | | [address] | | | - LABORATORY | | [...] | | nRBC | | K/uL | . [facility] | | | | [...] 0.003-0.091 K/uL 0.0-0.9% 2nd 0.007-0.247 K/uL | [facility] | | 0.1-2.0% 3rd 0.018-0.456 K/uL 0.1-2.0% | - LABORATORY | + + + + + + + + | Performing | Address | City/State/Zipcode | Phone Number | | Organization | | | | + + + + + | [facility] | [address] | [place] | [phone] | | [facility] | | [address] | | | - LABORATORY | | [...] + + | [facility] | [address] | [place] | [phone] | | [facility] | | [address] | | | - LABORATORY | | | | + + + + + Vitamin B-12 (05/01/2018 5:45 AM PST) + + + + + + | Component | Value | Ref Range | Performed | Pathologist | | | | | At | Signature | + + + + + + | VITAMIN | Comment: DEFICIENT: | 180 - 914 pg/mL | [facility] | | | B-12 | <145 | | [facility] | | | | pg/mLINDETERMINATE: | | [...] ST. | [address] | [place], [place] | [phone] | | [facility] | | [address] | | | - LABORATORY | | [...] | | | | | | [facility] | | | | | | MEDICAL [...] | | | | WBC's | [facility] | | | | [...] 0.003-0.091 K/uL 0.0-0.9% 2nd 0.007-0.247 K/uL | [facility] | | 0.1-2.0% rust 0.018-0.456 K/uL 0.1-2.0% | - LABORATORY | + + + + + + + + | Performing | Address | City/State/Zipcode | Phone Number | | Organization | | | | + + + + + | [facility] | [address] | [place] | [phone] | | [facility] | | [address] | | | - LABORATORY | | [...] + | [facility] | [address] | [place] | [phone] | | [facility] | | [address] | | | - LABORATORY | | [...] + + + + + + | eGFR if not | 41 (L)Comment: | >=60 | [facility] | | | | GLOMERULAR FILTRATION | mL/min/1.73m2 | [facility] | | | EMIRATI | RATE,ESTIMATED | | MEDICAL | | | | mL/min/1.21l9Cvxp than | | CENTER - | | [...] + | BUN/Creatin | 9.3 | | [facility] | | | ine Ratio | | [...] [address] | [place] | [phone] | | [facility] | | [address] | | | - LABORATORY | | [...] [address] | [place] | [phone] | | [facility] | | [address] | | | - LABORATORY | | [...] + + | [facility] | [address] | [place] | [phone] | | [facility] | | [address] | | | - LABORATORY | | [...] + | [facility] | [address] | [place] | [phone] | | [facility] | | [address] | | | - LABORATORY | | [...] + + + + + + | eGFR if not | 42 (L)Comment: | >=60 | [facility] | | | | GLOMERULAR FILTRATION | mL/min/1.73m2 | [facility] | | | EMIRATI | RATE,ESTIMATED | | MEDICAL | | | | mL/min/1.86q9Aqwj than | | CENTER - | | [...] [address] | [place] | [phone] | | [facility] | | [address] | | | - LABORATORY | | [...] + | [facility] | [address] | [place] | [phone] | | [facility] | | [address] | | | - LABORATORY | | [...] + + + + + + | eGFR if not | 49 (L)Comment: | >=60 | [facility] | | | | GLOMERULAR FILTRATION | mL/min/1.73m2 | [facility] | | | EMIRATI | RATE,ESTIMATED | | MEDICAL | | | | mL/min/1.29t5Dkvk than | | CENTER - | | [...] [address] | [place] | [phone] | | [facility] | | [address] | | | - LABORATORY | | [...] Granulocyte | patients, use the | | [facility] | | | s | special [...] 0.003-0.091 K/uL 0.0-0.9% 2nd 0.007-0.247 K/uL | [facility] | | 0.1-2.0% rust 0.018-0.456 K/uL 0.1-2.0% | - LABORATORY | + + + + + + + + | Performing | Address | City/State/Zipcode | Phone Number | | Organization | | | | + + + + + | [facility] | [address] | [place] | [phone] | | [facility] | | [address] | | | - LABORATORY | | [...] + | [facility] | [address] | [place] | [phone] | | [facility] | | [address] | | | - LABORATORY | | [...] + + + + + + | eGFR if not | 54 (L)Comment: | >=60 | [facility] | | | | GLOMERULAR FILTRATION | mL/min/1.73m2 | [facility] | | | EMIRATI | RATE,ESTIMATED | | MEDICAL | | | | mL/min/1.15b4Rnps than | | CENTER - | | [...] + | BUN/Creatin | 7.2 | | [facility] | | | ine Ratio | | [...] [address] | [place] | [phone] | | [facility] | | [address] | | | - LABORATORY | | [...] | nRBC | | K/uL | [facility] | [...] [address] | [place] | [phone] | | [facility] | | [address] | | | - LABORATORY | | [...] + | [facility] | [address] | [place], [place] | [phone] | | [facility] | | [address] | | | - LABORATORY | | [...] + + + + + + | eGFR if not | 59 (L)Comment: | >=60 | [facility] | | | | GLOMERULAR FILTRATION | mL/min/1.73m2 | [facility] | | | EMIRATI | RATE,ESTIMATED | | MEDICAL | | | | mL/min/1.00i3Blll than | | CENTER - | | [...] [address] | [place] | [phone] | | [facility] | | [address] | | | - LABORATORY | | [...] Low IPF are consistent | | [facility] | | | Fraction | with a [...] | | nRBC | | K/uL | [facility] | | | | | [...] [address] | [place] | [phone] | | [facility] | | [address] | | | - LABORATORY | | [...] [address] | [place] | [phone] | | [facility] | | [address] | | | - LABORATORY | | [...] | | Direct | | mg/dl | [facility] | | | | [...] [address] | [place] | [phone] | | [facility] | | [address] | | | - LABORATORY | | | | + + + + + Magnesium (04/25/2018 5:56 AM PST) + +-------+ + + + | Component | Value | Ref Range | Performed | Pathologist | | | | | At | Signature | + +-------+ + + + | Magnesium | 1.8 | 1.8 - 2.5 mg/dL | [facility] | | | | | | [facility] | | | | | | [...] + | [facility] | [address] | [place] | [phone] | | [facility] | | [address] | | | - LABORATORY | | [...] + + + + + + | eGFR if not | 49 (L)Comment: | >=60 | [facility] | | | | GLOMERULAR FILTRATION | mL/min/1.73m2 | [facility] | | | EMIRATI | RATE,ESTIMATED | | MEDICAL | | | | mL/min/1.12s1Mogz than | | CENTER - | | [...] [address] | [place] | [phone] | | [facility] | | [address] | | | - LABORATORY | | [...] [address] | [place] | [phone] | | [facility] | | [address] | | | - LABORATORY | | [...] + | [facility] | [address] | [place] | [phone] | | [facility] | | [address] | | | - LABORATORY | | [...] + + + + + + | eGFR if not | 52 (L)Comment: | >=60 | [facility] | | | | GLOMERULAR FILTRATION | mL/min/1.73m2 | [facility] | | | EMIRATI | RATE,ESTIMATED | | MEDICAL | | | | mL/min/1.31k1Pask than | | CENTER - | | [...] [address] | [place] | [phone] | | [facility] | | [address] | | | - LABORATORY | | [...] | | | | | | [employer] | | | | | [...] + + | Performing | Address | City/State[facility] | Phone Number | | Organization | | | | + + + + + | [facility] | [address] | [place] | [phone] | | [facility] | | [address] | | | - LABORATORY | | [...] [facility] | | | | | | [facility] | | | | | | [...] [address] | [place] | [phone] | | [facility] | | [address] | | | - LABORATORY | | [...] | [address] | [place] | [phone] | | [facility] | | [address] | | | - LABORATORY | | [...] | 1.02 | 0.60 - 1.30 | [facility] | | | | | mg/dL | [facility] | | | | | | MEDICAL | | | | | | CENTER - | | | | | | LABORATORY | | + + + + + + | eGFR if not | 59 (L)Comment: | >=60 | [facility] | | | | GLOMERULAR FILTRATION | mL/min/1.73m2 | [facility] | | | EMIRATI | RATE,ESTIMATED | | MEDICAL | | | | mL/min/1.67y8Vijm than | | CENTER - | | [...] | | | | | mg/dL | [facility] | | | | | | [...] [address] | [place] | [phone] | | [facility] | | [address] | | | - LABORATORY | | [...] | | | | | | [employer] | | | | | [...] + | [facility] | [address] | [place] | [phone] | | [facility] | | [address] | | | - LABORATORY | | [...] | | | | | | [employer] | | | | | [...] + | [facility] | [address] | [place] | [phone] | | [facility] | | [address] | | | - LABORATORY | | [...] by | | | | | | NICOLEEREN FREIRE MD ([id number]) | | | | | | on [...] [address] | [place] | [phone] | | [facility] | | [address] | | | - LABORATORY | | [...] | | | Cells | | | [facility] | | | [...] | 0.00 | 0.00 - 0.01 | [facility] | | | nRBC | | K/uL | [facility] | | | | | | MEDICAL [...] [address] | [place] | [phone] | | [facility] | | [address] | | | - LABORATORY | | [...] (L) | 7 - 18 mg/dL | [facility] | | | | | | [facility] | | | | | | MEDICAL | | | | | | CENTER - | | | | | | LABORATORY | | + + + + + + | Creatinine | 0.96 | 0.60 - 1.30 | [facility] | | | | | mg/dL | [facility] | | | | | | MEDICAL | | | | | | CENTER - | | | | | | LABORATORY | | + + + + + + | eGFR if not | >60Comment: GLOMERULAR | >=60 | [facility] | | | | FILTRATION | mL/min/1.73m2 | [facility] | | | EMIRATI | RATE,ESTIMATED | | MEDICAL | | | | mL/min/1.31r6Fgvc than | | CENTER - | | [...] | | | | mg/dL | [facility] | | | | [...] [address] | [place] | [phone] | | [facility] | | [address] | | | - LABORATORY | | [...] | | | SERUM/PLASM | | | [facility] | | | A | | [...] [address] | [place] | [phone] | | [facility] | | [address] | | | - LABORATORY | | [...] [address] | [place] | [phone] | | [facility] | | [address] | | | - LABORATORY | | | | + + + + + Ammonia (04/23/2018 1:12 PM PST) + +--------+ + + + | Component | Value | Ref Range | Performed | Pathologist | | | | | At | Signature | + +--------+ + + + | Ammonia | 44 (H) | 11 - 35 umol/L | [facility] | | | | | [...] + + | [facility] | [address] | [place] | [phone] | | [facility] | | [address] | | | - LABORATORY | | [...] [facility] | | | | | | ST. [...] + | [facility] | [address] | [place] | [phone] | | [facility] | | [address] | | | - LABORATORY | | [...] + | [facility] | [address] | [place] | [phone] | | [facility] | | [address] | | | - LABORATORY | | | | + + + + + Troponin I (04/23/2018 1:12 PM PST) + + + + + + | Component | Value | Ref Range | Performed | Pathologist | | | | | At | Signature | + + + + + + | Troponin I | <0.01Comment: Reference | <0.06 ng/mL | [facility] | | | | Ranges:0.00-0.06 = | [...] | | | | | | [employer] | | | | | [...] + | [facility] | [address] | [place] | [phone] | | [facility] | | [address] | | | - LABORATORY | | [...] + + + + + + | eGFR if not | 53 (L)Comment: | >=60 | [facility] | | | | GLOMERULAR FILTRATION | mL/min/1.73m2 | [facility] | | | EMIRATI | RATE,ESTIMATED | | MEDICAL | | | | mL/min/1.35n0Sidb than | | CENTER - | | [...] + + | [facility] | [address] | [place] | [phone] | | [facility] | | [address] | | | - LABORATORY | | [...] | | | | WBC's | [facility] | | | | | | MEDICAL [...] + | [facility] | [address] | [place] | [phone] | | [facility] | | [address] | | | - LABORATORY | | [...] | | | | EREN NICOLE MD ([id number]) | | | | | | on [...] + + | Coronary artery disease involving cocopah coronary artery, angina presence unspecified, | | unspecified whether cocopah or transplanted heart | + + | [...] | | Oral, DAILY, First dose on Thu | | 19 8:42 | | | [...] | | | | First dose on Thu04/24/18 at 0900, | | | | | [...] | | 0.5 mg 0.5 mg, Intravenous, 2 | | 19 8:26 | | | | | TIMES DAILY, First dose on Thu | | AM PST | | | [...] | | | | 04/25/18 at 1315, Tee | | | | | | | gently., | | | | | | + +-------+ + +---+---+ +-------+ + +---+---+ | Given | 02/19/20 | 2 sprays | | | | [...] | | | (after last modification) on Tue | | | | | | | [...] | | | | | Pain, Starting Thu04/23/18 at | | | | | | [...] 8:29 | | | | | on Thu04/23/18 at 2100 | | PM [...] | | | | last modification) on Thu04/26/18 | | AM PST | | | [...] PST | | | | | ONCE, 05/03/18 at 0815, For 1 | | [...] | | | | PRN, Pain, Starting [facility] 04/29/18 | | AM PST | | [...]
--- OUTSIDE RECORDS SUMMARY | ~2019-10-07 | XMS | Encounter Summary ---
Demographics + + + | Address | [address] | | | [place] [address] | + + + | Home Phone | | + + + | Preferred Language | Unknown | + + + | Marital Status | Single | + + + | Yarsani Affiliation | [id number] | + + + | Race | Unknown | + + + | Ethnic Group | Unknown | + + + Author + + + | Author | [facility] | | | and [place] | + + + | Organization | [facility] | | [...] Team Providers + +------+ + | Care Felt Dyeing Machine Tender Name | Role | Phone | + [...] | | vomiting, | | [address], | | | | | vomiting of | | [address] | | | | | unspecified | | [place], | | | | | type | | [place] [address] | | | | | Aspiration | | Phone: | | | | | pneumonia | | [phone] | | | | | due to | | Fax: | | | | | gastric | | [phone] | | | | | secretions | [...] + + | 04/17/ | Hospital | [facility] | Keaton Wakefield MD | Nausea and vomiting, | | 2016 | Encounter | [facility] | [address], [place] | vomiting of | | | | [address] | [address] [place] | unspecified type | | | | [place], [place] | [address] | (Primary Dx) | | | | [address] | | | | | | [phone] | | | +--------+ + + + [...] and well-nourished. No distress. Morbid obesity B ND 49.4 HENT: Head: Normocephalic and atraumatic. Right [...] normal. Nursing note and vitals reviewed. 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 documented in [...] | PROVATION | | 04/17/2015 12:31 PMMRN: [id number] #: [id number] of : | | | 1975Admit Type: AmbulatoryAge: 39Room: [facility] 01Gender: FemaleNote | | | Status: FinalizedAttending [...] physician, the nurse, the anesthesiologist and the retread technician | | | in the procedure [...] Addenda: 0Note Initiated On: 04/17/2015 12:31 PM [facility]. | | | [facility], [address] [place] [address] | | | [phone] | | | - The retroflexed view [...] On: 04/17/2015 12:31 PM | | | [facility], [address], [place] | | | [address] | | + + -+ + +---------+ + + | Performing | Address | City/State[facility] | Phone Number | | Organization | [...] + | [facility] | [address] | [place] | [phone] | | [facility] | | [address] | | | - LABORATORY | | [...] ST. | [address] | [place] | [phone] | | [facility] | | [address] | | | - LABORATORY | | [...] [address] | [place] | [phone] | | [facility] | | [address] | | | - LABORATORY | | [...] | 1.010, 1.015, | | | | [place], | | 1.020, 1.025 | | | | POC | | | | | + + + + + + | Internal QC | Acceptable | | | | + + + + + + | Lot Number | [id number] | | | | + + + [...] DUODENAL BIOPSY SPECIMEN SOURCE: A. DUODENAL | [facility] | | BIOPSY CLINICAL HISTORY: R11.2 [...] | | peptic duodenitis or other abnormality. BES:[facility]:C3NR GROSS | | | DESCRIPTION: Received in formalin labeled "Tiny Campuzano" and | | | "duodenal biopsy" on the requisition are multiple pink-santa tissue | | | fragments measuring from <0.1-0.4 cm, all in (A1). ka:RosVR:[facility] | | | PERFORMING LABORATORY: Tissue processing and slide preparation were | | | performed by [facility], [facility], [facility] | | | [place] [address] (Sleep Tech: Reilly Thomas M.D. CLIA#: | | | [id number]). Professional interpretation was performed by [facility] | | | [facility], [address], [place] [address] | | | (Sleep Tech: Reilly Thomas M.D.; CLIA#: [id number]). | | | Diagnostician: Daniel Briscoe MD [...]
--- OUTSIDE RECORDS SUMMARY | ~2019-10-07 | XMS | Encounter Summary ---
Demographics + + + | Address | [address] | | | [place] [address] | + + + | Home Phone | | + + + | Preferred Language | Unknown | + + + | Marital Status | Single | + + + | Evangelical Affiliation | 1041 | + + + | Race | Unknown | + + + | Ethnic Group | Unknown | + + + Author + + + | Author | [facility] | | | and [place] | + + + | Organization | [facility] | | [...] Team Providers + +------+ + | Care Assembler And Tester Electronics Name | Role | Phone | + +------+ + | Julita Cabral PA-C | PCP | | + +------+ + Reason for Visit +---------+--------+ + | Reason | Onset | Comments | | | Date | | +---------+--------+ + | Imaging | 01/18/ | ultrasound needs scheduled | | | 2019 | | +---------+--------+ + Encounter Details +--------+ + + + + | Date | Type | Department | Care Team | Description | +--------+ + + + + | 01/18/ | Telephone | [facility] | [facility], | Imaging (ultrasound | | 2018 | | GASTROENTEROLOGY | FRANK [address] | needs scheduled) | | | | [address] | [address] | | | | | [address] [place], [place] | [place], [place] | | | | | [address] | [address] | | | | | [phone] | | | +--------+ + + + [...] this encounter Miscellaneous Notes Telephone Encounter - Becky Ferris CMA - 01/18/2019 8:44 AM PSTSpoke with patient, she will call [facility] and they will set up ultrasound for her. I asked that they call us back with DOS for insurance. She verbalized understanding. The ultrasound order has [facility] ed [facility]. 8: 54 AM PSTdocumented in this encounter Plan of Treatment Not on filedocumented as of this encounter Visit Diagnoses Not on filedocumented in this encounter"
--- OUTSIDE RECORDS SUMMARY | ~2019-10-07 | XMS | Encounter Summary ---
Demographics + + + | Address | [address] | | | [place] [address] | + + + | Home Phone | | + + + | Preferred Language | Unknown | + + + | Marital Status | Single | + + + | Uatsdin Affiliation | 1041 | + + + [...] Team Providers + +------+ + | Care Division Operations Manager Name | Role | Phone | [...] 2016 | | GASTROENTEROLOGY | [address], [place] | Morbid obesity due | | | | [address] [place] | [address] [place], [place] | to excess calories | | | | [address] [place], [place] | [address] | (HCC); Aspiration | | | | [address] | | pneumonia, | | | | [phone] | | unspecified | | | | [...]
--- OUTSIDE RECORDS SUMMARY | ~2019-10-07 | XMS | Encounter Summary ---
Demographics + + + | Address | [address] | | | [place] [address] | + + + | Home Phone | | + + + | Preferred Language | Unknown | + + + | Marital Status | Single | + + + | Confucianist Affiliation | 1041 | + + + [...] Team Providers + +------+ + | Care Whiting Can Worker Name | Role | Phone | [...] ascites (HCC) | | | | [address] [place], [place] | [place], [place] | (Primary Dx) | | | | [address] | [address] | | | | | [phone] | | | +--------+ + + + [...] 2 weeks, [facility] documented in this encounter Plan of Treatment [...]
--- OUTSIDE RECORDS SUMMARY | ~2019-10-07 | XMS | Encounter Summary ---
Demographics + + + | Address | [address] | | | [place] [address] | + + + | Home Phone [...] | | + + +---------+ + | aSndra Oro | ECON | Unknown | | + + +---------+ + Care Team Providers + +------+ + | Care Morals Squad Police Officer Name | Role | Phone | + +------+ + | Julita Cabral PA-C | PCP | | + +------+ + Reason for Visit + +--------+ + | Reason | Onset | Comments | | | Date | | + +--------+ + | Procedure | 07/30/ | | | | 2019 | | + +--------+ + Encounter Details +--------+ + + + + | Date | Type | Department | Care Team | Description | +--------+ + + + + | 07/30/ | Telephone | [facility] | [facility], | Procedure | | 2019 | | GASTROENTEROLOGY | [address] | | | | | [address] | [address] [facility] [address] | | | | | [address] [place], [place] | [place], [place] | | | | | [address] | [address] | | | | | [phone] | | | +--------+ + + + [...] Telephone Encounter - Becky Ferris CMA - 08/02/2018 1:23 PM PDTAsked patient if she was able to get clearance from physician specialist and she said she missed that appointment. She i s going to reschedule. Once she has clearance we can schedule procedure. She will call and l et us know. elepho ne Encounter - Iveth Chappell - 07/30/2018 1:55 PM PDTPatient called in trying to schedu le an upper endoscopy. She said Emma was wanting her to do it. Please advise and call lucas ellison back. Thank you documen kishan in this encounter Plan of Treatment Not on filedocumented as of this encounter Visit Diagnoses Not on filedocumented in this encounter"
--- OUTSIDE RECORDS SUMMARY | ~2019-10-07 | XMS | Encounter Summary ---
Demographics + + + | Address | [address] | | | [place] [address] | + + + | Home Phone | | + + + | Preferred Language | Unknown | + + + | Marital Status | Single | + + + | Lutheran Affiliation | 1041 | + + + | Race | Unknown | + + + | Ethnic Group | Unknown | + + + Author + + + | Author | [facility] | | | and [place] | + + + | Organization | [facility] | | [...] Team Providers + +------+ + | Care Tube Knitter Name | Role | Phone | + +------+ + | Miranda Cabral PA-C | PCP | | + +------+ + Reason for Visit + +--------+ + | Reason | Onset | Comments | | | Date | | + +--------+ + | Hospital Follow-up | 05/07/ | | | | 2019 | | + +--------+ + Encounter Details +--------+ + + + + | Date | Type | Department | Care Team | Description | +--------+ + + + + | 05/07/ | Telephone | [facility] | Irma Cason, | Hospital Follow-up | | 2019 | | [facility] | PharmD [address] | | | | | [address] [place] | [facility] | | | | | [place] [address] | [place] [address] | | | | | [phone] | [phone] | | +--------+ + + + + [...] KRISTIE COLINDRES HAS REFERRAL TO CARDIOLOGY AT [facility] SPOKE WITH ALLEN AT MIRANDA CABRAL'S OFFICE AND SHE STATES THEY ALREADY HAVE A REFERRAL I N PLACE FOR CARDIOLOGY AT [facility]. PT HAS NOT BEEN SCHEDULED YET BUT THEY ARE WORKING ON. [phone] CC: CARDIOLOGY WIRE GALVANIZER STAFF - IN BASKET NOTE ON REFERRAL FROM MIRANDA IN AUTHORIZATIONS [id number] signed by Ewa doe at 05/21/2018 11:10 AM PSTTelephone Encounter - Irma Cason PharmCarl - 05/07/2018 2: 54 PM PSTHospital Follow-Up Phone Call Date Discharged: 05/06/18 Diagnosis: CHF Name of caller: Irma Cason PharmCarl 05/07/2018 15:09 1. What diet are you [...] answer: Does not know (missed call from [facility] during the nap) Appointment date: 05/[address] Cabral 11. Does the patient have transportation to get to their appointment? Yes 12. Do you have any other concerns about your discharge? No 13. Patient does express interest in Heart Failure Clinic at [facility] Card[facility]. Length of phone call: 12 minutes documented in thi s encounter Plan of Treatment Not on filedocumented as of this encounter Visit Diagnoses Not on filedocumented in this encounter"
--- OUTSIDE RECORDS SUMMARY | ~2019-10-07 | XMS | Encounter Summary ---
Demographics + + + | Address | [address] | | | [place] [address] | + + + | Home Phone | | + + + | Preferred Language | Unknown | + + + | Marital Status | Single | + + + | Baptist Affiliation | 1041 | + + + | Race | Unknown | + + + | Ethnic Group | Unknown | + + + Author + + + | Author | [facility] | | | and [place] | + + + | Organization | [facility] | | [...] Team Providers + +------+ + | Care Nurse'S Companion Name | Role | Phone | + [...] failure, | PharmD [address] | | | | | unspecified | [address] | [place], | | | | | HF | [place] | [place] | | | | | chronicity, | [place], [place] | [address] | | | | | unspecified | [address] | Phone: | | | | | heart | Phone: | [phone] | | | | | failure type | [phone] | Fax: | | | | | ([facility]) | [phone] | [phone] | | | | | Procedures | | | | | | | REEL CART OPERATOR | | | +--------+ + + + [...] HF | | | | [address] [place] | [address] [place] | chronicity, | | | | [place] [address] | [place] [address] | unspecified heart | | | | [phone] | [phone] | failure type (HCC) | | | [...] +--------+ + + | AMB REFERRAL TO [facility] | Outpatient | Routin | Heart failure, | Ordered: 05/07/2018 | | [place] [facility] | Referral | e | [...]
--- OUTSIDE RECORDS SUMMARY | ~2019-10-07 | XMS | Encounter Summary ---
Demographics + + + | Address | [address] | | | [place] [address] | + + + | Home Phone | | + + + | Preferred Language | Unknown | + + + | Marital Status | Single | + + + | Advent Affiliation | 1041 | + + + | Race | Unknown | + + + | Ethnic Group | Unknown | + + + Author + + + | Author | [facility] | | | and [place] | + + + | Organization | [facility] | | [...] Team Providers + +------+ + | Care Circuit Board Inspector Name | Role | Phone | [...] + + | 07/21/ | Telephone | [facility] | Jose Riojas MD | Procedure (surgery | | 2019 | | OTOLARYNGOLOGY [address] | [address] | date ) | | | | [address] | [address] [facility] | | | | | [place] | [place] [address] | | | | | [address] | [phone] | | | | | [phone] | | | +--------+ + + + [...] Miscellaneous Notes Telephone Encounter - Cindy Doran, Quality Control Auditor - 08/03/2018 2:49 PM PDTCalled and spoke to patient to get her scheduled for surgery. Patient has been scheduled for surge ry ThursdaySeptember 07. Post op has been made and information has been sent.Electronically sig brett by Cindy Doran, Quality Control Auditor at 08/03/2018 2:50 PM PDTTelephone Encounter - Iveth Chappell - 07/30/2018 1:53 PM PDTPatient called in checking on the status of sched uling, advised her of Cindy's note, best number [phone] she thinks vm is set up. She s aid she didn't have minutes for a week so that may be why you couldn't reach her. Electronic ally signed by Iveth Chappell at 07/30/2018 1:54 PM PDTTelephone Encounter - Jorden Doran, Quality Control Auditor - 07/21/2018 2:07 PM PDTI tried calling patient to get her schedu led for surgery but there was no answer the 2 times I tried calling and you can't leave a me ssage. documented in this encounter Plan of Treatment Not on filedocumented as of this encounter Visit Diagnoses Not on filedocumented in this encounter"
--- OUTSIDE RECORDS SUMMARY | ~2019-10-07 | XMS | Encounter Summary ---
Demographics + + + | Address | [address] | | | [place] [address] | + + + | Home Phone | | + + + | Preferred Language | Unknown | + + + | Marital Status | Single | + + + | Presybeterian Affiliation | 1041 | + + + | Race | Unknown | + + + | Ethnic Group | Unknown | + + + Author + + + | Author | [facility] | | | and [place] | + + + | Organization | [facility] | | | [...] Team Providers + +------+ + | Care Dinking Machine Operator Name | Role | Phone | + +------+ + | Julita Cabral PA-C | PCP | | + +------+ + Encounter Details +--------+ + + + + | Date | Type | Department | Care Team | Description | +--------+ + + + + | 03/01/ | Abstract | [facility] | Provider, | | | 2017 | | GASTROENTEROLOGY | MD [address] | | | | | [address] | Katie [place] | | | | | [address] | [place] [address] | | | | | [address] | | | | | [phone] | | | +--------+ + + + [...]
--- OUTSIDE RECORDS SUMMARY | ~2019-10-07 | XMS | Encounter Summary ---
Demographics + + + | Address | [address] | | | [place] [address] | + + + | Home Phone [...] Team Providers + +------+ + | Care Records Section Supervisor Name | Role | Phone | + +------+ + | Julita Cabral PA-C | PCP | | + +------+ + Reason for Visit +---------+--------+ + | Reason | Onset | Comments | | | Date | | +---------+--------+ + | Imaging | 01/19/ | | | | 2019 | | +---------+--------+ + Encounter Details +--------+ + + + + | Date | Type | Department | Care Team | Description | +--------+ + + + + | 01/19/ | Telephone | [facility] | [facility], | Imaging | | 2019 | | GASTROENTEROLOGY | [address]ANK [address] | | | | | [address] | [address] | | | | | [address] [place], [place] | [place] | | | | | [address] | [address] | | | | | [phone] | | | +--------+ + + + [...] - 01/19/2019 8:40 AM PSTFaxed order to [facility]. Patient also called to let us know DOS.01/28/19 elephone Encounter - Iveth Chappell - 01/19/2019 8: 07 AM Krsital from Clinic called asking for a copy of US of Liver order to be faxed to their clinic. Patient is scheduled on Jan 28 at 8AM . Michael's fax number is [phone] lectronically signed by Iveth Chappell at 01/19/2019 8:16 AM PSTdocumented in this encoun ter Plan of Treatment Not on filedocumented as of this encounter Visit Diagnoses Not on filedocumented in this encounter"
--- OUTSIDE RECORDS SUMMARY | ~2019-10-07 | XMS | Encounter Summary ---
Demographics + + + | Address | [address] | | | [place] [address] | + + + | Home Phone | | + + + | Preferred Language | Unknown | + + + | Marital Status | Single | + + + | Holiness Affiliation | 1041 | + + + | Race | Unknown | + + + | Ethnic Group | Unknown | + + + Author + + + | Author | [facility] | | | and [place] | + + + | Organization | [facility] | | | [...] Team Providers + +------+ + | Care Practice Or Student Teacher Name | Role | Phone | [...] Radiology - | Diagnoses | | [facility] | | | Services | Diagnostic | Alcoholic | [facility], | [facility] | | | Required | Ultrasound | cirrhosis [facility] | [facility] | | | | | liver | FIXED WING AIRCRAFT FLIGHT ENGINEER [address] | [address] | | | | | without | [address] | CONFEDERATED | | | | | ascites | [address] | WAY | | | | | (HCC) | [place], | [place], [place] | | | | | Anemia, | [place] [address] | [address] | | | | | unspecified | Phone: | Phone: | | | | | type | [phone] | [phone] | | | | | Hypokalemia | Fax: | Fax: | | | | | | [phone] | [phone] | | | | | Thrombocytop | [...] ascites (HCC) | | | | [address] [place], [place] | [place], [place] | (Primary Dx); | | | | [address] | [address] | Anemia, unspecified | | | | [phone] | | type; Hypokalemia; | | | [...] | Alcoholic | Ordered: 01/04/2019 | | [facility] | Referral | e | [...]
--- OUTSIDE RECORDS SUMMARY | ~2019-10-07 | XMS | Clinical Summary ---
Demographics + + + | Address | [address] | | | [place] [address] | + + + | Home Phone [...] + + + | Author | [facility] | | | and [place] | + + + | Organization | [facility] | | | and [...] Team Providers + +------+ + | Care Accounts Payable Bookkeeper Name | Role | Phone | + [...] | | | + + + +---------+------+------+-------+ +---+ + | | Additional | | | InformationPatient | | | not taking. Reported | | | on 10/05/2019 9:49 | | | AM | +---+ + + + + +---+------+---+-------+ | bumetanide (BUMEX) | Take 1 tablet by | 60 | 1 | 02/2 | | Activ | | 1 mg tablet | mouth 2 times daily. | tablet | | 1/20 | | e | | | | | | 19 | | | + + + +---+------+---+-------+ | acetaminophen | Take 325-650 mg by | | 0 | 01/1 | | Activ | | (TYLENOL) 325 mg | mouth Every 8 hours | | | 10/02 | | e | | tablet | as needed. | | | 19 | | | + + + +---+------+---+-------+ | cetirizine | Take 10 mg by mouth | | 0 | | | Activ | | (ZYRTEC) 10 mg | Daily as needed. | | | | | e | | tablet | | | | | | | + + + +---+------+---+-------+ | Polyethylene | Take by mouth once. | | 0 | | | Activ | | Glycol powder | | | | | | e | + + + +---+------+---+-------+ | lactulose 10 g/15 | Take 30 mLs by mouth | 1892 mL | 2 | 04/2 | | Activ | | mL solution | 3 times daily. | | | /20 | | e | | | | | | 19 | | | + + + +---+------+---+-------+ +---+ + | | Additional | | | InformationPatient | | | not taking. Reported | | | on 10/05/2019 9:49 | | | AM | +---+ + + + +---+---+------+------+-------+ | atorvaSTATin | Take 40 mg by mouth | | 0 | | 09/14 | Disco | | (LIPITOR) 40 mg | nightly. | | | | 05/05 | ntinu | | tablet | | | | | 20 | ed | | | | | | | | (Rosa | | | | | | | | ent | | | | | | | | Not | | | | | | | | Takin | | | | | | | | g) | + + +---+---+------+------+-------+ | atorvaSTATin | Take 40 mg by mouth. | | 0 | 03/16 | 09/14 | Disco | | (LIPITOR) 40 mg | | | | 10/02 | 2/ | ntinu | | tablet | | | | 19 | 20 | ed | | | | | | | | (Rosa | | | | | | | | ent | | | | | | | | Not | | | | | | | | Takin | | | | | | | | g) | + + +---+---+------+------+-------+ Active Problems + + + | Problem [...] + + + + | 10/04/ | Office | Otolaryngology | Jose Riojas MD | Deviated nasal | | 2020 | Visit | | | septum (Primary Dx); | | | | | | Hypertrophy of | | | | | | nasal turbinates; | | | | | | Neoplasm of | | | | | | uncertain behavior | | | | | | of skin; Obstructive | | | | | | sleep apnea | +--------+ + + + + | 10/04/ | Orders Only | Otolaryngology | Jose Riojas MD | Deviated nasal | | 2020 | | | | septum (Primary Dx); | | | | | | Hypertrophy of | | | | | | nasal turbinates; | | | | | | Neoplasm of | | | | | | uncertain behavior | | | | | | of skin; Obstructive | | | | | | sleep apnea (adult) | | | | | | (pediatric) | +--------+ + + + + from [...] Health Maintenance | Due Date | Last | Comments | | | | Done | | + + + + + | Hepatitis C | | | | | Screening | 6 | | | + + + + + | Medication | | | | | Management | 6 | | | + + [...] | + + + + + | Med Mgmt: Cr | | 05/06/19 | | | | 0 | 19, | | | | | 05/05/19 | | | | | 19, | | | | | 05/04/19 | | | | | 19, | | | | | Addition | | | | | al | | | | | history | | | | | exists | | + + + + + | Med Mgmt: K | | 05/06/19 | | | | 0 | 19, | | | | | 05/05/19 | | | | | 19, | | | | | 05/04/19 | | | | | 19, | | | | | Addition | | | | | al | | | | | history | | | | | exists | | + + + + + | Med Mgmt: Na | | 05/06/19 | | | | 0 | 19, | | | | | 05/05/19 | | | | | 19, | | | | | 05/04/19 | | | | | 19, | | | | | Addition | | | | | al | | | | | history | | | | | exists | | + + + + + | Vaccine: Influenza | | 12/31/19 | | | (#1) | 0 | 19, | | | | | 11/14/19 | | | | | 18, | | | | | 01/31/20 | | | | | 17, | | | | | Addition | | | | | al | | | | | history | | | | | exists | | + + + + + | Vaccine: | | 01/08/20 | | | Dtap/Tdap/Td (7 - | 2 | 12, | | | Td) | | 01/08/20 | | | | | 12, | | | | | 07/11/19 | | | | | 07, | | | | | Addition | | | | | al | | | | | history | | | | | exists | | + + + + + | Vaccine: | Completed | 01/09/20 | | | Pneumococcal 19-64 | | 13, | | | | | 01/08/20 | | | | | 12 | | + + + + + [...] +---------+--------+ | [place] | MEDICA | [id number] | 04/16/19 | [id number] | | Medica | | | [place] | | 19-Pre | 2 | | id | | | PLUS | | sent | | | | + +--------+ +--------+ +---------+--------+ | [facility] | IHS | [phone] | | | | Indemn | | SERVICE | YELLOW | | 976-Pr | | | ity | | | HAWK | | esent | | | | + +--------+ +--------+ +---------+--------+ | [employer] | MEDICA | [id number] | | [phone] | | Medica | | | [place] | | 019-Pr | 2 | | id | | | PLUS | | esent | | | | + +--------+ +--------+ +---------+--------+ | [facility] | IHS | [phone] | 03/16/19 | | | Indmarcosn | | SERVICE | YELLOW | | [...] [address] | | | deo/Marcial | | 1976 | [phone] | [place] | | | [place] | | | [address] (Home) | [address] | + +--------+ +--------+ + + | Tiny Campuzano | Person | Self | [birth year] | [address] | | | Miguel | | 1976 | [phone] | [place] | | | [place] | | | [address] ([place]) | [address] | + +--------+ +--------+ + + Advance Directives + + + + + | Type | Date Recorded | Patient | Explanation | | | | Office Administrative Assistant | | + + + + + | Power of | | | | | Core Winder Machine Operator | | | | + + + [...]
--- OUTSIDE RECORDS SUMMARY | ~2019-10-07 | XMS | Encounter Summary ---
Demographics + + + | Address | [address] | | | [place] [address] | + + + | Home Phone [...] Team Providers + +------+ + | Care Cell Plasterer Name | Role | Phone | + [...] unspecified | [address], | | | | | Nausea with | [address], [place] | [address] | | | | | vomiting, | [address] [place] | [place], | | | | | unspecified | [place], [place] | [place] [address] | | | | | Opioid | [address] | Phone: | | | | | dependence, | Phone: | [phone] | | | | | uncomplicate | [phone] | Fax: | | | | | d (HCC) | Fax: | [phone] | | | | | Pneumonitis | [phone] | | | | | | due to | | | | | | | inhalation | | | | | | | of food and | | | | | | | vomit (HCC) | | | | | | | Procedures | | | | | | | SC | | | | | | | ESOPHAGOGAST | | | | | | | RODUODENOSCO | | | | | | | PY TRANSORAL | | | | | | | DIAGNOSTIC | | | | | | | SC EDG | | | | | | | TRANSORAL | | | | | | | BIOPSY | | | | | | | SINGLE/MULTI | | | | | | | PLE SC | | | | | | | [...] | | | | | 03/12>PEND | [place], | [address] | | | | | [facility] | [place] | Phone: | | | | | Office visit | [address] | [phone] | | | | | | Phone: | Fax: | | | | | | [phone] | [phone] | | | | | | Fax: | | | | | | | [phone] | | +--------+--------+ + + + + Encounter Details +--------+---------+ + + + | Date | Type | Department | Care Team | Description | +--------+---------+ + + + | 04/05/ | Office | [facility] | Keaton Wakefield MD | Dysphagia, | | 2016 | Visit | GASTROENTEROLOGY | [address], [place] | unspecified | | | | [address] [place] | [address] [place], [place] | dysphagia; Opioid | | | | [address] [place], [place] | [address] | type dependence, | | | | [address] | | continuous (HCC); | | | | [phone] | | Nausea and vomiting, | | [...] and well-nourished. No distress. Morbid obesity B AL 49.4 HENT: Head: Normocephalic and atraumatic. Right [...] normal. Nursing note and vitals reviewed. 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 documented in [...] Nausea and | Expected: 04/17/2015 | | [id number] | Referral | e | vomiting Morbid [...]
--- OUTSIDE RECORDS SUMMARY | ~2019-10-07 | XMS | Encounter Summary ---
Demographics + + + | Address | [address] | | | [place] [address] | + + + | Home Phone | | + + + | Preferred Language | Unknown | + + + | Marital Status | Single | + + + | Jew Affiliation | 1041 | + + + [...] Team Providers + +------+ + | Care Corporate Lawyer Name | Role | Phone | + [...] | | vomiting, | | [address], | | | | | vomiting of | | [address] | | | | | unspecified | | [place], | | | | | type | | [place] [address] | | | | | Aspiration | | Phone: | | | | | pneumonia | | [phone] | | | | | due to | | Fax: | | | | | gastric | | [phone] | | | | | secretions | [...] + + | 04/17/ | Surgery | [facility] | Keaton Wakefield MD | EGD | | 2016 | | MED CTR MP INTRA OP | [address], [place] | | | | | [address] | [address] [place] | | | | | [place], [place] | [id number] | | | | | [address] | | | | | | [phone] | | | +--------+---------+ + + + [...] Keaton Wakefield MD at 04/17/2015 11:58 AM Keaton Bynum MD - 3:01 PM PST Subjective: Patient [...] hypertension Continuous chronic alcoholism (HCC) Cannabis dependence ([facility]) Abscess of trunk Hemorrhoids Pseudopolyposis of colon [...] and well-nourished. No distress. Morbid obesity B ME 49.4 HENT: Head: Normocephalic and atraumatic. Right [...] normal. Nursing note and vitals reviewed. 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 documented in [...] | PROVATION | | 04/17/2015 12:31 PMMRN: [id number] #: [id number] of : | | | 1975Admit Type: AmbulatoryAge: 39Room: [facility] 01Gender: FemaleNote | | | [...] physician, the nurse, the anesthesiologist and the application technician | | | in the procedure [...] Addenda: 0Note Initiated On: 04/17/2015 12:31 PM [facility]. | | | [facility], [address] [place] [address] | | | [phone] | | | - The retroflexed view [...] On: 04/17/2015 12:31 PM | | | [facility], [address] [facility], [place], [place] | | | [address] | | + + -+ + +---------+ + + | Performing | Address | City/State/[facility] Centercode | Phone Number | | [...] [address] | [place] | [phone] | | [facility] | | [address] | | | - LABORATORY | | [...] [address] | [place] | [phone] | | [facility] | | [address] | | | - LABORATORY | | [...] | | | | | g/dL | ROSY | | | | | [...] | MPV | 7.4 | fL | MAINOR | | | | | [...] [address] | [place] | [phone] | | [facility] | | [address] | | | - LABORATORY | | [...] | 1.010, 1.015, | | | | [place], | | 1.020, 1.025 | | | | POC | | | | | + + + + + + | Internal QC | Acceptable | | | | + + + + + + | Lot Number | [id number] | | | | + + + [...] DUODENAL BIOPSY SPECIMEN SOURCE: A. DUODENAL | [place] PATH[facility] | | BIOPSY CLINICAL HISTORY: R11.2 [...] | | peptic duodenitis or other abnormality. BES:[facility]:C3NR GROSS | | | DESCRIPTION: Received in formalin labeled "Tiny Campuzano" and | | | "duodenal biopsy" on the requisition are multiple pink-santa tissue | | | fragments measuring from <0.1-0.4 cm, all in (A1). ka:RosVR:[facility] | | | PERFORMING LABORATORY: Tissue processing and slide preparation were | | | performed by [facility], [address] [place] [address], [facility] | | | [place] [address] (Tub Chucker: Reilly Thomas M.D. CLIA#: | | | [id number]). Professional interpretation was performed by [facility] | | | [place], [address], [place] [address] | | | (Tub Chucker: Reilly Thomas M.D.; CLIA#: [id number]). | | | Diagnostician: Daniel Briscoe MD [...]
--- OUTSIDE RECORDS SUMMARY | ~2019-10-07 | XMS | Encounter Summary ---
Demographics + + + | Address | [address] | | | [place] [address] | + + + | Home Phone [...] Team Providers + +------+ + | Care Wood Boat Builder Supervisor Name | Role | Phone | [...] | | vomiting, | | [address], | | | | | vomiting of | | [address] | | | | | unspecified | | [place], | | | | | type | | [place] [address] | | | | | Aspiration | | Phone: | | | | | pneumonia | | [phone] | | | | | due to | | Fax: | | | | | gastric | | [phone] | | | | | secretions | [...] | | | | | [address] | [place] | | | | | [place] | [address] | | | | | [address] | | | | | | [phone] | | | +--------+ + + + [...] + + | Periph | 04/17/15; 1105; [id number] | 04/17/15 1105 by | 04/17/15 1400 [...] EVALUATION Tiny Campuzano 39 y.o. female 1975 [id number] Procedure(s) EGD (N/A Mouth) Filed Vitals: 04/17/15 [...] by Robert Gan MD 04/17/2015 12:33 [facility] nesthesia Preprocedu re Evaluation - Robert Gan MD - 04/16/2015 3:24 PM PSTFormatting of this note might b e different from the original. ANESTHESIA PREANESTHESIA EVALUATION Tiny Campuzano 39 y.o. female 1975 [id number] Procedure(s): EGD (N/A Mouth) Medical history, anesthesia, [...]
--- OUTSIDE RECORDS SUMMARY | ~2019-10-07 | XMS | Encounter Summary ---
Demographics + + + | Address | [address] | | | [place] [address] | + + + | Home Phone | | + + + | Preferred Language | Unknown | + + + | Marital Status | Single | + + + | Quaker Affiliation | 1041 | + + + | Race | Unknown | + + + | Ethnic Group | Unknown | + + + Author + + + | Author | [facility] | | | and [place] | + + + | Organization | [facility] | | [...] Team Providers + +------+ + | Care Probation And Patrol Agent Name | Role | Phone | + [...] 2014 | | GASTROENTEROLOGY | [address], [place] | | | | | [address] [place] | [address] [place], [place] | | | | | [address] [place], [place] | [address] | | | | | [address] | | | | | | [phone] | | | +--------+ + + + [...]
--- OUTSIDE RECORDS SUMMARY | ~2019-10-07 | XMS | Encounter Summary ---
Demographics + + + | Address | [address] | | | [place] [address] | + + + | Home Phone [...] + + + | Author | [facility] | | | and [place] | + + + | Organization | [facility] | | | [...] Team Providers + +------+ + | Care Craft Center Director Name | Role | Phone | + +------+ + | Julita Cabral PA-C | PCP | | + +------+ + Encounter Details +--------+ + + + + | Date | Type | Department | Care Team | Description | +--------+ + + + + | 01/05/ | Documentati | [facility] [place] | [facility], | | | 2019 | on | GASTROENTEROLOGY | AnastasiaFRANK ambrocio [address] | | | | | [address] | [address] | | | | | [address] [place], [place] | [place], [place] | | | | | [address] | [address] | | | | | [phone] | | | +--------+ + + + [...] 01/05/2019 8:24 AM PDTFaxed lab [facility]Electro nically signed by Becky Ferris CMA at 01/05/2019 8:25 AM PDTdocumented in this encoun ter Plan of Treatment Not on filedocumented as of this encounter Visit Diagnoses Not on filedocumented in this encounter"
--- OUTSIDE RECORDS SUMMARY | ~2019-10-07 | XMS | Encounter Summary ---
Demographics + + + | Address | [address] | | | [place] [address] | + + + | Home Phone [...] + + + | Author | [facility] | | | and [place] | + + + | Organization | [facility] | | | [...] Team Providers + +------+ + | Care Grain Elevator Motor Starter Name | Role | Phone | + [...] | Deviated nasal | | | | [place], [place] | [place] [address] | septum; Hypertrophy | | | | [address] | [phone] | of nasal turbinates; | | | | [phone] | | Neoplasm of | | | [...]
--- OUTSIDE RECORDS SUMMARY | ~2019-10-07 | XMS | Encounter Summary ---
Demographics + + + | Address | [address] | | | [place] [address] | + + + | Home Phone [...] + | Author | [facility] | | | and [place] | + + + | Organization | [facility] | | | [...] Team Providers + +------+ + | Care Store Consultant Name | Role | Phone | [...] + + | 01/25/ | Telephone | [facility] | Cindy Doran | Procedure (surgery | | 2019 | | OTOLARYNGOLOGY [address] | M, Collective Bargaining Specialist | date ) | | | | [address] | | | | | | [place] | | | | | | [address] | | | | | | [phone] | | | +--------+ + + + [...] Miscellaneous Notes Telephone Encounter - Cindy Doran, Collective Bargaining Specialist - 01/25/2019 10:20 AM PSTCalled and spoke [...]
--- OUTSIDE RECORDS SUMMARY | ~2019-10-07 | XMS | Encounter Summary ---
Demographics + + + | Address | [address] | | | [place] [address] | + + + | Home Phone | | + + + | Preferred Language | Unknown | + + + | Marital Status | Single | + + + | Voodoo Affiliation | 1041 | + + + | Race | Unknown | + + + | Ethnic Group | Unknown | + + + Author + + + | Author | [facility] | | | and [place] | + + + | Organization | [facility] | | | [...] Team Providers + +------+ + | Care Scourer Name | Role | Phone | + [...] / | (adult) | [place] | [place] | | | | Sleep | (pediatric) | [place] | [facility] | | | | Medicine | CONSULT PW | [facility] [address] | [place], [place] | | | | | 1:30 | [place], | [address] Phone: | | | | | Procedures | [place] | [phone] | | | | | NEW PATIENT | [address] | Fax: | | | | | | Phone: | [phone] | | | | | | [phone] | | | | | | | Fax: | | | | | | | [phone] | | +--------+--------+ + + + + Encounter Details +--------+---------+ + + + | Date | Type | Department | Care Team | Description | +--------+---------+ + + + | 08/20/ | Office | [facility] [place] | Lupillo [place]es | NO SHOW (Primary Dx) | | 2015 | Visit | SLEEP DISORDER [address] | MD [address] | | | | | [address] [place] | [address] [place] | | | | | [place] [address] | [place] [address] | | | | | [phone] | [phone] | | | | | | | [...] a NO SHOW for a 1 hour [facility] medicine consultation. 2: 21 PM PDTdocumented in this encounter Plan of Treatment Not on filedocumented as of this encounter Visit Diagnoses + + | Diagnosis | + + | No Show - Primary Code used for vists where the patient is not seen | + + documented in this encounter"
--- OUTSIDE RECORDS SUMMARY | ~2019-10-07 | XMS | Encounter Summary ---
Demographics + + + | Address | [address] | | | [place] [address] | + + + | Home Phone [...] Team Providers + +------+ + | Care Library Media Technician Name | Role | Phone | [...] + + | 12/08/ | Telephone | [facility] | Jsoe Riojas MD | Procedure (surgery | | 2019 | | OTOLARYNGOLOGY [address] | [address] | date ) | | | | [address] | [address] [facility] | | | | | [place] | [place] [address] | | | | | [address] | [phone] | | | | | [phone] | | | +--------+ + + + [...] Miscellaneous Notes Telephone Encounter - Cindy Doran Header Up - 01/11/2019 9:00 AM PDTPatien t has [...] 2:33 PM PDTTelephone Encounter - Cindy Doran Header Up - 9:34 AM PDTI tried calling patient but once again there is no answer. Surgery has been ap proved. If patient is going to schedule we need to get a good number because patient never a nswers or its a none working number. elephone Encounter - Cindy Doran Header Up - 12/14/2018 10:22 AM PDTAve to get new auth. Caal is working on it and will let me know w hen its all done. Then I will call the patient to let her know then we can schedule her. Vida ctronically signed by Eneida Rodriguez at 12/14/2018 10:23 AM PDTTedoug ne Encounter - Iveth Chappell - 12/08/2018 4:05 PM PDTPatient would like to reschedule h er nasal surgery with Dr. Riojas; she said that [facility] is going to provider [facility] n for her this time so she won't miss it. She also updated her phone number so it is current in registration. docume nted in this encounter Plan of Treatment Not on filedocumented as of this encounter Visit Diagnoses Not on filedocumented in this encounter"
--- OUTSIDE RECORDS SUMMARY | ~2019-10-07 | XMS | Encounter Summary ---
Demographics + + + | Address | [address] | | | [place] [address] | + + + | Home Phone | | + + + | Preferred Language | Unknown | + + + | Marital Status | Single | + + + | Taoism Affiliation | 1041 | + + + | Race | Unknown | + + + | Ethnic Group | Unknown | + + + Author + + + | Author | [facility] | | | and [place] | + + + | Organization | [facility] | | [...] Team Providers + +------+ + | Care Electromechanisms Design Drafter Name | Role | Phone | + [...] | Hypertrophy of | | | | [place], [place] | [place] [address] | nasal turbinates; | | | | [address] | [phone] | Neoplasm of | | | | [phone] | | uncertain behavior | | | [...]
--- OUTSIDE RECORDS SUMMARY | ~2019-10-07 | XMS | Encounter Summary ---
Demographics + + + | Address | [address] | | | [place] [address] | + + + | Home Phone [...] Team Providers + +------+ + | Care Intern Name | Role | Phone | [...] (cirrhosis | PA-C [address] | [address], | | | | | of liver) | [address] | [address] | | | | | (HCC) | [place] | [place], | | | | | Procedures | [address] | [place] [address] | | | | | office visit | [place], | Phone: | | | | | | [place] | [phone] | | | | | | [address] | Fax: | | | | | | Phone: | [phone] | | | | | | [phone] | | | | | | | Fax: | | | | | | | [phone] | | +--------+--------+ + + + + Encounter Details +--------+---------+ + + + | Date | Type | Department | Care Team | Description | +--------+---------+ + + + | 07/07/ | Office | [facility] | [facility], | Alcoholic cirrhosis | | 2019 | Visit | GASTROENTEROLOGY | FRANK Oconnor [address] | of liver without | | | | [address] [place] | [address] | ascites (HCC) | | | | [address] [place], [place] | [place], [place] | (Primary Dx); | | | | [address] | [address] | Anemia, unspecified | | | | [phone] | | type; Hypokalemia; | | | [...] transpl antation evaluation. Urine test done at [facility] every other week. Labs to be [...] was initially seen in the ED in [facility] for abdominal pain and swelling 2017. She went home and was readmitted to the hospital 03/2018. She was then hospitalized in [place]. She was was hospitalized for 22 days. She was then readmitted to the hospital here at [facility] 04/23/2018. She was admitted from 04/23 -05/06/2018. [...] Procedure: EGD; Surgeon: Keaton Wakefield MD; [facility] Family History Family [...] call once she has been evaluated by sound effects person. Will need to schedule EGD and colonoscopy [...] AFP every 6 months. Metabolic Bone Disease: [facility] Cirrhotics are at increased risk of developing [...]
--- OUTSIDE RECORDS SUMMARY | ~2019-10-07 | XMS | Encounter Summary ---
Demographics + + + | Address | [address] | | | [place] [address] | + + + | Home Phone | | + + + | Preferred Language | Unknown | + + + | Marital Status | Single | + + + | Gnosticist Affiliation | 1041 | + + + | Race | Unknown | + + + | Ethnic Group | Unknown | + + + Author + + + | Author | [facility] | | | and [place] | + + + | Organization | [facility] | | | [...] Team Providers + +------+ + | Care Manufacturing Supervisor 2Nd Shift Name | Role | Phone | + +------+ + | Julita Cabral PA-C | PCP | | + +------+ + Encounter Details +--------+---------+ + + + | Date | Type | Department | Care Team | Description | +--------+---------+ + + + | 10/04/ | Office | [facility] [place] | Jose Riojas MD | Deviated nasal | | 2020 | Visit | OTOLARYNGOLOCY | [address] | septum (Primary Dx); | | | | SERVICES [address] | [address] [place] | Hypertrophy of | | | | [address] [place] | [place] [address] | nasal turbinates; | | | | [place] [address] | [phone] | Neoplasm of | | | | [phone] | | uncertain behavior | | | [...] + + documented in this encounter H&P Jose Salazar MD - 10/05/2019 9:30 AM PDT OTOLARYNGOLOGY [...] Procedure: EGD; Surgeon: Keaton Wakefield MD; Location: [facility] SOCIAL HISTORY: The [...]
--- OUTSIDE RECORDS SUMMARY | ~2019-10-07 | XMS | Encounter Summary ---
Demographics + + + | Address | [address] | | | [place] [address] | + + + | Home Phone [...] Team Providers + +------+ + | Care Sightseeing Guide Name | Role | Phone | + +------+ + | Julita Cabral PA-C | PCP | | + +------+ + Encounter Details +--------+ + + + + | Date | Type | Department | Care Team | Description | +--------+ + + + + | 02/18/ | Orders Only | [facility] | Phil [place], | | | 2015 | | CONVERSION [address] | DO [address] | | | | | [address] | [place] [address] | | | | | [place], [place] | [phone] | | | | | [address] | | | | | | [phone] | | | +--------+ + + + [...] m/s Septal | | | E/e': 11.88 Stripper Black And White: EMMANUEL Authenticated by: Keith | | | [...] | 6.08 cmLVPWd: 0.96 cmLVOT Area: 4.23 qq3HVWP Diam: 2.32 cm%FS: 29.55 %EF(Teich): | | 55.63 %ESV(Teich): 82.55 mlLVIDs: 4.28 cmSV(Teich): 103.53 mlRV Major: 7.81 | | cmRVIDd: 3.22 cmLAAs A4C: 19.17 mi6HFLHD A-L A4C: 58.05 mlLALs A4C: 5.37 cmRAAs: | | 9.50 ys3PAUVN A-L: 20.91 mlRAESV MOD: 20.37 mlRALs: 3.66 cmAo Diam: 3.43 | | cmAo/LA: 0.63LA Diam: 5.42 cmLA/Ao: 1.57MV A Finn: 1.26 m/sMV DecT: 223.78 msMV | | E Finn: 1.08 m/sMV E/A Ratio: 0.85MV PHT: 64.89 msMVA By PHT: 3.38 tf5Jpzrut e': | | 0.09 m/sSeptal E/e': 11.88 Stripper Black And White: DHAuthenticated by: Rochelle Parker | | MDReport Date/Time: [...] | |Septal E/e': 11.88 | | | |Stripper Black And White: | |Authenticated by: Rochelle Parker MD | [...]
--- OUTSIDE RECORDS SUMMARY | ~2019-10-07 | XMS | Encounter Summary ---
Demographics + + + | Address | [address] | | | [place] [address] | + + + | Home Phone [...] Team Providers + +------+ + | Care Linoleum Printer Name | Role | Phone | + [...] + + | 08/31/ | Telephone | [facility] | Jose Riojas MD | Procedure (surgery | | 2019 | | OTOLARYNGOLOGY [address] | [address] | time ) | | | | [address] | [address] [facility] | | | | | [place] | [place] [address] | | | | | [address] | [phone] | | | | | [phone] | | | +--------+ + + + [...] Miscellaneous Notes Telephone Encounter - Cindy Doran C Consultant - 09/01/2018 1:05 PM Severo t called [...]
--- OUTSIDE RECORDS SUMMARY | ~2019-10-07 | XMS | Encounter Summary ---
Demographics + + + | Address | [address] | | | [place] [address] | + + + | Home Phone [...] Team Providers + +------+ + | Care Men'S Locker Room Attendant Name | Role | Phone | + [...] + + | 03/01/ | Telephone | [facility] | [facility], | Insurance | | 2017 | | GASTROENTEROLOGY | FRANK [address] | Authorization | | | | [address] | [address] [facility] [address] | | | | | [address] [place], [place] | [place], [place] | | | | | [address] | [address] | | | | | [phone] | | | +--------+ + + + [...]
--- OUTSIDE RECORDS SUMMARY | ~2019-10-07 | XMS | Encounter Summary ---
Demographics + + + | Address | [address] | | | [place] [address] | + + + | Home Phone [...] + + + | Author | [facility] | | | and [place] | + + + | Organization | [facility] [...] Team Providers + +------+ + | Care Special Education Preschool Teacher Name | Role | Phone | [...] | [address] [place] | [place] [address] | nasal turbinates; | | | | [place] [address] | [phone] | Neoplasm of | | | | [phone] | | uncertain behavior | | | [...]
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
[~2019-10-07 13:47] MED LIST changes: +LOMOTIL TABLET1 EACH PO; +ONDANSETRON ODT8 MG PO
== END 2019-10-07 18:21 | disposition home or self-care (01) ==
LOC: ED 13:47
DX: R10.30 Lower abdominal pain, unspecified (principal); E11.9 Type 2 diabetes mellitus without complications; J44.9 Chronic obstructive pulmonary disease, unspecified; I10 Essential (primary) hypertension; E78.5 Hyperlipidemia, unspecified; Z79.899 Other long term (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
CPT/HCPCS: 74177; 80053; 81001; 83690; 84703; 85025; 87491; 87591; 99284-25; Q9967

== ENCOUNTER 2019-10-24 18:11 | Emergency (ER) | payer OTHER ==
[~2019-10-24] VITALS: Ht 175.3 cm; Wt 108.9 kg
--- OUTSIDE RECORDS SUMMARY | ~2019-10-24 | XMS | Encounter Summary ---
Demographics + + + | Address | [address] | | | [place] [address] | + + + | Home Phone | | + + + | Preferred Language | Unknown | + + + | Marital Status | Single | + + + | Christianity Affiliation | [id number] | + + + | Race | Unknown | + + + | Ethnic Group | Unknown | + + + Author + + + | Author | [facility] | | | and [place] | + + + | Organization | [facility] | | | and [...] Team Providers + +------+ + | Care Horticultural Services Supervisor Name | Role | Phone | + +------+ + | Julita Cabral PA-C | PCP | | + +------+ + Reason for Visit + + + | Reason | Comments | + + + | Abdominal Pain | | + + + Auth/Cert +--------+--------+ + + + + | Status | Reason | Specialty | Diagnoses / | Referred By | Referred To | | | | | Procedures | Contact | Contact | +--------+--------+ + + + + | | | | Diagnoses | | | | | | | Anasarca | | | | | | | Acute | | | | | | | systolic | | | | | | | congestive | | | | | | | heart | | | | | | | failure | | | | | | | (HCC) | | | | | | | Abdominal | | | | | | | pain, | | | | | | | chronic, | | | | | | | epigastric | | | | | | | Decompensate | | | | | | | d hepatic | | | | | | | cirrhosis | | | | | | | (HCC) | | | | | | | Hypervolemia | | | | | | | , | | | | | | | unspecified | | | | | | | hypervolemia | | | | | | | type 3+ | | | | | | | pitting | | | | | | | edema | | | | | | | | | | +--------+--------+ + + + + Encounter Details +--------+ + + + + | Date | Type | Department | Care Team | Description | +--------+ + + + + | 04/23/ | Hospital | [facility] | James Yanez, | Decompensated | | 2019 - | Encounter | [facility] | [address] | hepatic cirrhosis | | | | [address] [place] | [place], [place] | (HCC) (Primary Dx); | | 05/06/ | | [place] [address] | [id number] | Hypervolemia, | | 2019 | | [phone] | | unspecified | | | | | Pau Hernandez MD | hypervolemia type; | | | | | [address] | Acute systolic | | | | | [place], [place] | congestive heart | | | | | [id number] | failure (HCC); 3+ | | | | | | pitting edema; | | | | | Adali Morrow MD | Abdominal pain, | | | | | [address] | chronic, epigastric; | | | | | [place], [place] | Anasarca; Alcoholic | | | | | [id number] | cirrhosis of liver | | | | | | without ascites | | | | | | (HCC); Chest pain, | | | | | | unspecified type; | | | | | | Generalized | | | | | | abdominal pain; JOSE | | | | | | (acute kidney | | | | | | injury) (HCC); | | | | | | Dizziness; Coronary | | | | | | artery disease | | | | | | involving platinum | | | | | | coronary artery, | | | | | | angina presence | | | | | | unspecified, | | | | | | unspecified whether | | | | | | platinum or | | | | | | transplanted heart; | | | | | | Thrombocytopenia | | | | | | ([facility]); Anemia, | | | | | | unspecified type; | | | | | | Morbid obesity | | | | | | ([facility]); Acute on | | | | | | chronic systolic | | | | | | (congestive) heart | | | | | | failure ([facility]) | +--------+ + + + + Social [...] on file | | + + + documented as of this encounter Last Filed Vital Signs + + + + + | Vital Sign | Reading | Time Taken | Comments | + + + + + | Blood Pressure | 117/58 | 05/06/2018 3:16 PM | | | | | PST | | + + + + + | Pulse | 83 | 05/06/2018 3:16 PM | | | | | PST | | + + + + + | Temperature | 36.7 C (98.1 F) | 05/06/2018 3:16 PM | | | | | PST | | + + + + + | Respiratory Rate | 18 | 05/06/2018 3:16 PM | | | | | PST | | + + + + + | Oxygen Saturation | 100% | 05/06/2018 3:16 PM | | | | | PST | | + + + + + | Inhaled Oxygen | - | - | | | Concentration | | | | + + + + + | Weight | 136.5 kg (300 lb | 05/06/2018 3:39 AM | | | | 14.9 oz) | PST | | + + + + + | Height | 172.7 cm (5' 8") | 04/23/2018 12:12 PM | | | | | PST | | + + + + + | Body Mass Index | 45.76 | 04/23/2018 12:12 PM | | | | | PST | | + + + + + documented in this encounter Discharge Summaries Delia Parson MD - 05/06/2018 8:52 PM PSTFormatting of this note might be differen t from the original. [facility] DISCHARGE SUMMARY Pt. Name/Age/: Tiny Campuzano 42 y.o. 1975 Date of Admission: 04/23/2018 Date of Discharge: 05/06/2018 Admitting Physician: Adali Morrow MD Primary Care Provider: Julita Cabral PA-C Discharging Physician: Delia Parson MD DISCHARGE DIAGNOSES: Principal Diagnosis: Hypervolemia/Volume Overload due to both cirrhosis and decompensated s ystolic congestive heart failure Secondary Diagnoses: Coronary Artery Disease, Diet controlled DM DISCHARGE MEDICATIONS: Discharge Medications New Medications Details bumetanide 1 mg tablet Take 1 tablet by mouth 2 times daily. aka: BUMEX Changed Medications Details potassium chloride 20 mEq ER tablet Take 2 tablets by mouth Daily. What changed: how much to take aka: Klor-Con M20 Unchanged Medications Details albuterol 90 mcg/puff inhaler Inhale 1-2 puffs into the lungs every 3 hours as needed for Shortness of Breath. albuterol 2.5 mg/3 mL nebulizer solution Take 2.5 mg by nebulization every 6 hours as needed for Shortness of Breath. ascorbic acid 500 mg tablet Take 500 mg by mouth Daily. With Iron aka: VITAMIN C aspirin 81 mg chewable tablet Take 81 mg by mouth Daily. atorvaSTATin 40 mg tablet Take 40 mg by mouth nightly. aka: LIPITOR ferrous sulfate 325 mg tablet Take 325 mg by mouth daily (with breakfast). With Vitamin C fluticasone 50 mcg/nasal spray 2 sprays by Nasal route Daily. aka: FLONASE hydrOXYzine pamoate 25 mg capsule Take 25 mg by mouth every 6 hours as needed for Anxiety. aka: VISTARIL lactulose 10 g/15 mL solution Take 20 g by mouth 4 times daily. lidocaine 5% patch Place 1 patch onto the skin Daily. Apply for 12 hours, then remove for 12 hours. aka: LIDODERM magnesium oxide 400 mg tablet Take 400 mg by mouth 2 times daily. aka: MAG-OX metoclopramide 10 mg tablet Take 10 mg by mouth 4 times daily as needed for Nausea or Vomiting. aka: REGLAN metoprolol succinate 25 mg 24 hr tablet Take 25 mg by mouth Daily. aka: TOPROL-XL mometasone-formoterol 200-5 mcg/puff inhaler Inhale 2 puffs into the lungs 2 times daily. aka: DULERA naltrexone 50 mg tablet Take 50 mg by mouth Daily. aka: REVIA ondansetron 4 mg tablet Take 4 mg by mouth every 6 hours as needed for Nausea or Vomiting. aka: ZOFRAN oxyCODONE-acetaminophen 7.5-325 mg per tablet Take 1 tablet by mouth EVERY 4 TO 6 HOURS NEEDED for Pain. aka: PERCOCET pantoprazole 40 mg tablet Take 40 mg by mouth every morning (before breakfast). aka: PROTONIX spironolactone 25 mg tablet Take 50 mg by mouth Daily. aka: ALDACTONE Discontinued Medications ciprofloxacin 500 mg tablet aka: CIPRO furosemide 40 mg tablet aka: LASIX metroNIDAZOLE 500 MG tablet aka: [facility] HOSPITAL COURSE: Please refer to the H&P for full details and the most recent rounding rounding (progress) n ote. Admission HPI: 42 y.o. female with a history of alcoholic cirrhosis, diet controlled DM and CAD presented on 04/23/2018, seen by farhat pathak yesterday, BUT despite change in diuretics, there is ongoing 30lb weight gain, and today she was told by farhat pathak to come to ER for t he fluid overload She is crying throughout exam, pain due to anasarca abdomen to feet. She indicates complian ce and that right sided abdominal chronic pain is worse w/ water weight gain. ED course: NO O2 need, good UOP after lasix in ER -Studies: BNP 340/ Ammonia 44 CXR pulm edema, CT a/p without enough ascities for paracentes is -Treatment: lasix 40 / dialudid 1 mg x 2 Problem based hospital course #Anasarca due to cirrhosis #Suspected decompensated systolic congestive heart failure Patient presented with volume overload likely related to both decompensated liver and heart failure. Echo 03/19/18 at [facility] showed EF 45% with apical WMA.Patient did also have stress brenda t at that time that was abnormal but medical management was pursued - sub optimal diuresis with IV lasix initially - transitioned to IV Bumex 2/13 from furosemide - notable improvement in diuresis and weight loss with increased dose of IV Bumex to 2 mg t lorie a day - net negative 12 L during hospital stay with weight down to 300 lbs - discharged on Bumex 1 mg BID and potassium supplements - pt to have a close f/u with PCP in 1 week for volume status assessment, adjustment of diu retic dose and repeat BMP #JOSE - resolved Likely 2/2 toradol use here in the hospital. Resolved after toradol discontinued #Alcoholic cirrhosis Patient reports not used alcohol since Feb 2018 - continue lactulose, aldactone - switched to Bumex from Lasix #CAD Recent abnormal stress test, medical management was pursued. - continue aspirin, statin and beta bertrand #Chest and abdominal pain Patient had intermittent chest and abdominal wall pain. EKG unremarkable, do not suspect AC S. Patient had extensive workup for right upper quadrant pain in March. Most recent weight: Input and output for last 24hrs: Wt Readings from Last 1 Encounters: 05/06/18 (!) 136.5 kg (300 lb 14.9 oz) I/O last 24 Hours: In: 1520 [P.O.:1520] Out: 2450 [Urine:2450] Vitals Ranges: Temp: [36.7 C (98 F)-37.3 C (99.1 F)] 36.7 C (98.1 F) Pulse: [83-88] 83 Resp: [16-20] 18 BP: (116-136)/(57-58) 117/58 Vitals: Temp: 36.7 C (98.1 F) BP: 117/58 Pulse: 83 Resp: 18 SpO2: 100 % SpO2 100 % on room air at flow rate 0L/min PHYSICAL EXAM: Patient seen and examined by me on discharge day Gen: WDWN, nad HEENT: MMM, neck supple, poor dentition CV: regular rate and rhythm, no m/r/g Pulm: LCAB, no wheezes or rales Abdominal: soft, abdominal wall edema improved Extremities: well perfused, 1+ LE swelling Skin: warm, dry, no rashes Neuro: alert, CN intact, no focal deficits Psych: anxious affect, limited insight at times PROCEDURES AND CONSULTS: Procedures none Consults none PENDING RESULTS: none DISPOSITION AND DISCHARGE INSTRUCTIONS: Follow-up Information Julita Cabral PA-C. Schedule an appointment as soon as possible for a visit in 1 week . Specialty: Internal Medicine Contact information: [phone] [place] [id number] Condition: Patient being discharged with condition improved Diet: 2 gm sodium diet Greater than 30 minutes were spent on discharge and coordination of post-hospital care. Electronically signed by: Delia Parson MD, 05/06/2018 20:53 [facility] Portions of this chart may have been created with [employer] voice recognition software. Occasi onal wrong-word or sound-alike substitutions may have occurred due to the inherent munoz itations of voice recognition software. Please read the chart carefully and recognize, using context, where these substitutions have occurred documented in this encounter Discharge Instructions AttachmentsThe following attachments cannot be sent through Care Everywhere.Cirrhosis of th e Liver, Discharge Instructions for (German)documented in this encounter Medications at Time of Discharge + + + +---------+ + + | Medication | Sig | Dispensed | Refills | Start | End Date | | | | | | Date | | + + + +---------+ + + | acetaminophen | Take 325-650 mg by | | 0 | 04/01/19 | | | (TYLENOL) 325 mg | mouth Every 8 hours | | | 19 | | | tablet | as needed. | | | | | + + + +---------+ + + | albuterol 2.5 mg/3 | Take 2.5 mg by | | 0 | | | | mL nebulizer | nebulization every 6 | | | | | | solution | hours as needed for | | | | | | | Shortness of | | | | | | | Breath. | | | | | + + + +---------+ + + | albuterol 90 | Inhale 1-2 puffs | | 0 | | | | mcg/puff inhaler | into the lungs every | | | | | | | 3 hours as needed | | | | | | | for Shortness of | | | | | | | Breath. | | | | | + + + +---------+ + + | ascorbic acid | Take 500 mg by mouth | | 0 | | | | (VITAMIN C) 500 mg | Daily. With Iron | | | | | | tablet | | | | | | + + + +---------+ + + | bumetanide (BUMEX) | Take 1 tablet by | 60 | 1 | 05/06/19 | | | 1 mg tablet | mouth 2 times daily. | tablet | | 19 | | + + + +---------+ + + | ferrous sulfate | Take 325 mg by mouth | | 0 | | | | 325 mg tablet | daily (with | | | | | | | breakfast). With | | | | | | | Vitamin C | | | | | + + + +---------+ + + | fluticasone | 2 sprays by Nasal | | 0 | | | | (FLONASE) 50 | route Daily. | | | | | | mcg/nasal spray | | | | | | + + + +---------+ + + | hydrOXYzine | Take 25 mg by mouth | | 0 | | | | pamoate (VISTARIL) | every 6 hours as | | | | | | 25 mg capsule | needed for Anxiety. | | | | | + + + +---------+ + + | lidocaine | Place 1 patch onto | | 0 | | | | (LIDODERM) 5% patch | the skin Daily. | | | | | | | Apply for 12 hours, | | | | | | | then remove for 12 | | | | | | | hours. | | | | | + + + +---------+ + + | magnesium oxide | Take 400 mg by mouth | | 0 | | | | (MAG-OX) 400 mg | 2 times daily. | | | | | | tablet | | | | | | + + + +---------+ + + | metoclopramide | Take 10 mg by mouth | | 0 | | | | (REGLAN) 10 mg | 4 times daily as | | | | | | tablet | needed for Nausea or | | | | | | | Vomiting. | | | | | + + + +---------+ + + | | Inhale 2 puffs into | | 0 | | | | mometasone-formotero | the lungs 2 times | | | | | | l (DULERA) 200-5 | daily. | | | | | | mcg/puff inhaler | | | | | | + + + +---------+ + + | ondansetron | Take 4 mg by mouth | | 0 | | | | (ZOFRAN) 4 mg tablet | every 6 hours as | | | | | | | needed for Nausea or | | | | | | | Vomiting. | | | | | + + + +---------+ + + | pantoprazole | Take 40 mg by mouth | | 0 | | | | (PROTONIX) 40 mg | every morning | | | | | | tablet | (before breakfast). | | | | | + + + +---------+ + + | potassium chloride | Take 2 tablets by | 60 | 1 | 05/06/19 | | | (KLOR-CON M20) 20 | mouth Daily. | tablet | | 19 | | | mEq ER tablet | | | | | | + + + +---------+ + + | spironolactone | Take 50 mg by mouth | | 0 | | | | (ALDACTONE) 25 mg | Daily. | | | | | | tablet | | | | | | + + + +---------+ + + | aspirin 81 mg | Take 81 mg by mouth | | 0 | | | | chewable tablet | Daily. | | | | 9 | + + + +---------+ + + | atorvaSTATin | Take 40 mg by mouth | | 0 | | | | (LIPITOR) 40 mg | nightly. | | | | 0 | | tablet | | | | | | + + + +---------+ + + | atorvaSTATin | Take 40 mg by mouth. | | 0 | 04/01/19 | | | (LIPITOR) 40 mg | | | | 19 | 0 | | tablet | | | | | | + + + +---------+ + + | lactulose 10 g/15 | Take 20 g by mouth 4 | | 0 | | | | mL solution | times daily. | | | | 9 | + + + +---------+ + + | metoprolol | Take 25 mg by mouth | | 0 | | | | succinate | Daily. | | | | 9 | | (TOPROL-XL) 25 mg 24 | | | | | | | hr tablet | | | | | | + + + +---------+ + + | naltrexone (REVIA) | Take 50 mg by mouth | | 0 | | | | 50 mg tablet | Daily. | | | | 9 | + + + +---------+ + + | | Take 1 tablet by | | 0 | | | | oxyCODONE-acetaminop | mouth EVERY 4 TO 6 | | | | 9 | | hen (PERCOCET) | HOURS NEEDED for | | | | | | 7.5-325 mg per | Pain. | | | | | | tablet | | | | | | + + + +---------+ + + documented as of this encounter Progress Notes Delia Parson MD - 05/05/2018 1:50 PM PSTFormatting of this note might be differen t from the original. [place] [facility]PITALIST PROGRESS NOTE Patient: Tiny Campuzano : 1975: Age: 42 y.o. MedRec: [id number] Admission date: 04/23/2018 Hospital day # : 12 Physician author: Delia Parson MD Today: 05/05/2018 Assessment and Hospital Course Active Hospital Problems Diagnosis Anasarca Resolved Hospital Problems Diagnosis No resolved problems to display. 42 yo F with history of alcoholic cirrhosis, diet controlled diabetes, who presented with o ngoing weight gain and abdominal pain and nausea. Plan #Anasarca due to cirrhosis #Suspected decompensated systolic congestive heart failure Patient presented with volume overload likely related to both decompensated liver and heart failure. Echo 03/19/18 at [facility] showed EF 45% with apical WMA. Have not repeated echo here. Ryley morataya did also have stress test at that time that was abnormal but medical management was pu rsued. Transitioned to Bumex 04/28 from furosemide - Notable improvement in diuresis and weight loss with increased dose of Bumex to 2 mg twic e a day - continue Bumex 2 mg BID - lymphedema wraps - monitor electrolytes (scheduled KCl BID) - daily weights - fluid restriction #Chest and abdominal pain Patient has intermittent chest and abdominal wall pain. EKG unremarkable, do not suspect AC S. Patient had extensive workup for right upper quadrant pain in March. Patient is quite h yperalgesic at times flinching with even light touch, particularly to areas where she is goldy matous. #JOSE - resolved Possibly in the setting of diuresis also with toradol use here in the hospital. No further NSAIDs for now. Continuing diuresis and close monitoring. Renal function has improved consid erably in the last few days. #Dizziness - resolved - Head MRI 03/27/18 was unremarkable. Patient has chronically borderline low blood pressures which may be related to her underlying liver disease. #Alcoholic cirrhosis Patient reports not used alcohol since Feb 2018. Having BM every other day, increased Lactulose to BID Hold spironolactone for now while we are aggressively diuresing. Will need outpatient follo w up. #CAD Patient denies chest pain currently. Recent abnormal stress test, medical management was pu rsued. - continue aspirin, statin, holding beta bertrand 2/2 low normal BP and aggressive diuresis #Thrombocytopenia Relatively mild, likely sequela of liver disease. Holding heparin and encouraging ambulatio n. #Anemia Likely ACD. Ferritin, retic count unremarkable. CTM. #Obesity BMI 48 #Prolonged QTc Patient has QTc >500. Avoid QT prolonging medications as we are able. FEN: fluid restricted, cardiac Ppx: ambulate TID Disposition: likely discharge 1-2days once weight close to baseline Subjective CC: f/u Anasarca/Hypervolemia NAEO, pt reports her belly feels softer, still has LE swelling but improved, no other compl ains ROS was performed and was negative except as noted above. Exam Gen: WDWN, nad HEENT: MMM, neck supple, poor dentition CV: regular rate and rhythm, no m/r/g Pulm: LCAB, no wheezes or rales Abdominal: soft, abdominal wall edema improved Extremities: well perfused, 2+ LE swelling up to knees Skin: warm, dry, no rashes Neuro: alert, CN intact, no focal deficits Psych: anxious affect, limited insight at times Allergies: No Known Allergies Current Medications: Current Facility-Administered Medications Medication Dose Route Frequency Provider Last Rate Last Dose budesonide (PULMICORT) 0.5 mg/2 mL nebulizer solution 0.5 mg 0.5 mg Nebulization RT BI D Jj Lundberg MD 0.5 mg at 05/05/18 1016 And albuterol 5 mg/mL concentrated nebulizer solution 2.5 mg 2.5 mg Nebulization RT BID Zainab Lundberg MD 2.5 mg at 05/05/18 1015 albuterol-ipratropium 2.5-0.5 mg/3 mL nebulizer solution 3 mL 3 mL Nebulization RT Q4H PRN Jj Lundberg MD 3 mL at 04/26/18 210 aspirin EC tablet 81 mg 81 mg Oral Daily Jj Lundberg MD 81 mg at 05/05/18 0800 atorvaSTATin (LIPITOR) tablet 40 mg 40 mg Oral Nightly Jj Lundberg MD 40 mg at 04/16 bumetanide (BUMEX) injection 2 mg 2 mg Intravenous BID Pau Hernandez MD 2 mg at 04/17 0801 chlorhexidine (HIBICLENS) 4 % liquid Topical Daily Jj Lundberg MD fluticasone (FLONASE) 50 mcg/nasal spray 2 spray 2 spray Each Nare Daily Arvind peck MD 2 spray at 05/04/18 0838 hydrOXYzine pamoate (VISTARIL) capsule 25 mg 25 mg Oral Q6H PRN Jj Lundberg MD 25 m g at 05/02/18 1057 lactulose liquid 20 g 20 g Oral Daily Jj Lundberg MD 20 g at 05/05/18 0801 LORazepam (ATIVAN) tablet 1 mg 1 mg Oral Q6H PRN Pau Hernandez MD 1 mg at 05/04/18 1 840 metoclopramide (REGLAN) 5 mg/mL injection 10 mg 10 mg Intravenous Q6H PRN Jj Lundberg MD 10 mg at 05/03/18 1716 nitroglycerin (NITRO-BID) 2% ointment 0.5 inch 0.5 inch Topical Q6H PRN Donald Rivera 0.5 inch at 05/01/18 1738 ondansetron (ZOFRAN ODT) disintegrating tablet 4 mg 4 mg Oral Q6H PRN Pau Hernandez MD 4 mg at 05/04/18 0827 ondansetron (ZOFRAN) injection 4 mg 4 mg Intravenous Q6H PRN Jj Lundberg MD 4 mg at 04/28/18 0611 oxyCODONE (ROXICODONE) tablet 5 mg 5 mg Oral Q4H PRN Pau Hernandez MD 5 mg at 0631 pantoprazole (PROTONIX) DR tablet 40 mg 40 mg Oral BID AC Jj Lundberg MD 40 mg at 0 05/05/18 0631 potassium chloride (Klor-Con M20) ER tablet 40 mEq 40 mEq Oral BID Delia Parson MD 40 mEq at 05/05/18 0801 Current Infusions: Objective Data Point of care glucose No results for input(s): POCGLU in the last 168 hours. Labs last 24 hours Recent Results (from the past 24 hour(s)) Basic Metabolic Panel Collection Time: 05/05/18 5:37 Result Value Ref Range Na 135 (L) 136 - 149 mmol/L K 3.4 (L) 3.5 - 5.1 mmol/L Cl 101 98 - 109 mmol/L CO2 27 24 - 31 mmol/L Anion Gap 7 3 - 16 mmol/L Glucose 104 70 - 109 mg/dL BUN 11 7 - 18 mg/dL Creatinine 1.10 0.60 - 1.30 mg/dL eGFR if not 54 (L) >=60 mL/min/1.73m2 Ca 8.0 (L) 8.3 - 10.5 mg/dL BUN/Creatinine Ratio 10.0 Magnesium Collection Time: 05/05/18 5:37 Result Value Ref Range Magnesium 1.9 1.8 - 2.5 mg/dL Extra Lavender Top Tube Collection Time: 05/05/18 5:37 Result Value Ref Range Extra Lavender Top Tube Done Micro results (more choices using dot micro) Microbiology Results (72 hrs) No results found for the last 72 hours. Radiology results (more choices using dot risresults) No results found. Vitals Ranges: Temp: [36.4 C (97.5 F)-37.1 C (98.8 F)] 37.1 C (98.8 F) Pulse: [73-86] 77 Resp: [16-22] 18 BP: (111-121)/(53-56) 121/56 Vitals: Temp: 37.1 C (98.8 F) BP: 121/56 Pulse: 77 Resp: 18 SpO2: 98 % (Denies distress.) SpO2 98 % (Denies distress.) on room air Delia Parson MD 05/05/2018 13:50 [facility] Delia Hu MD - 05/04/2018 6:03 PM PSTFormatting of this note might be different from the origin al. [facility]PITAL[facility] PROGRESS NOTE Patient: Tiny Campuzano : 1975: Age: 42 y.o. MedRec: [id number] Admission date: 04/23/2018 Hospital day # : 11 Physician author: Delia Parson MD Today: 05/04/2018 Assessment and Hospital Course Active Hospital Problems Diagnosis Anasarca Resolved Hospital Problems Diagnosis No resolved problems to display. 42 yo F with history of alcoholic cirrhosis, diet controlled diabetes, who presented with o ngoing weight gain and abdominal pain and nausea. Plan #Anasarca due to cirrhosis #Suspected decompensated systolic congestive heart failure Patient presented with volume overload likely related to both decompensated liver and heart failure. Echo 03/19/18 at [facility] showed EF 45% with apical WMA. Have not repeated echo here. Ryley rafia did also have stress test at that time that was abnormal but medical management was pu rsued. Transitioned to Bumex 04/28 from furosemide - Notable improvement in diuresis and weight loss with increased dose of Bumex to 2 mg twic e a day - Will continue - lymphedema wraps - monitor electrolytes (scheduled KCl BID) - daily weights - fluid restriction #Chest and abdominal pain Patient has intermittent chest and abdominal wall pain. EKG unremarkable, do not suspect AC S. Patient had extensive workup for right upper quadrant pain in March. Patient is quite h yperalgesic at times flinching with even light touch, particularly to areas where she is goldy matous. #JOSE - resolved Possibly in the setting of diuresis also with toradol use here in the hospital. No further NSAIDs for now. Continuing diuresis and close monitoring. Renal function has improved consid erably in the last few days. #Dizziness - resolved - Head MRI 03/27/18 was unremarkable. Patient has chronically borderline low blood pressures which may be related to her underlying liver disease. #Alcoholic cirrhosis Patient reports not used alcohol since Feb 2018. Continue lactulose. Hold spironolactone fo r now while we are aggressively diuresing. Will need outpatient follow up. #CAD Patient denies chest pain currently. Recent abnormal stress test, medical management was pu rsued. - continue aspirin, statin, holding beta bertrand 2/2 low normal BP and aggressive diursesi s #Thrombocytopenia Relatively mild, likely sequela of liver disease. Holding heparin and encouraging ambulatio n. Patient does have large bruise on RUE where she previously received heparin injection. #Anemia Likely ACD. Ferritin, retic count unremarkable. CTM. #Obesity BMI 48 #Prolonged QTc Patient has QTc >500. Avoid QT prolonging medications as we are able. FEN: fluid restricted, cardiac Ppx: ambulate TID Disposition: likely discharge in 1-2 days once weight close to baseline Subjective CC: f/u Anasarca/Hypervolemia NAEO, pt reports improvement in LE swelling, happy with diuresis and weight loss, denies CP , continues to have intermittent abdominal pain ROS was performed and was negative except as noted above. Exam Gen: WDWN, nad HEENT: MMM, neck supple, poor dentition CV: regular rate and rhythm, no m/r/g Pulm: LCAB, no wheezes or rales Abdominal: soft, abdominal wall edema noted laterally that is improved as per patient , pos itive bowel tones Extremities: well perfused, 2+ LE swelling up to knees Skin: warm, dry, no rashes Neuro: alert, CN intact, no focal deficits Psych: anxious affect, limited insight at times Allergies: No Known Allergies Current Medications: Current Facility-Administered Medications Medication Dose Route Frequency Provider Last Rate Last Dose budesonide (PULMICORT) 0.5 mg/2 mL nebulizer solution 0.5 mg 0.5 mg Nebulization RT BI D Tanisha-Hwa Tamika, MD 0.5 mg at 05/04/18 09 And albuterol 5 mg/mL concentrated nebulizer solution 2.5 mg 2.5 mg Nebulization RT BID Zainab Lundberg MD 2.5 mg at 05/04/18 09 albuterol-ipratropium 2.5-0.5 mg/3 mL nebulizer solution 3 mL 3 mL Nebulization RT Q4H PRN Jj Lundberg MD 3 mL at 04/26/18 210 aspirin EC tablet 81 mg 81 mg Oral Daily Jj Lundberg MD 81 mg at 05/04/18 0828 atorvaSTATin (LIPITOR) tablet 40 mg 40 mg Oral Nightly Jj Lundberg MD 40 mg at 04/16 bumetanide (BUMEX) injection 2 mg 2 mg Intravenous BID Pau Hernandez MD 2 mg at 04/16 12/02 1647 chlorhexidine (HIBICLENS) 4 % liquid Topical Daily Jj Lundberg MD fluticasone (FLONASE) 50 mcg/nasal spray 2 spray 2 spray Each Nare Daily Arvind peck MD 2 spray at 05/04/18 0838 hydrOXYzine pamoate (VISTARIL) capsule 25 mg 25 mg Oral Q6H PRN Jj Lundberg MD 25 m g at 05/02/18 1057 lactulose liquid 20 g 20 g Oral Daily Jj Lundberg MD 20 g at 05/04/18 0828 LORazepam (ATIVAN) tablet 1 mg 1 mg Oral Q6H PRN Pau Hernandez MD 1 mg at 05/02/18 1 255 metoclopramide (REGLAN) 5 mg/mL injection 10 mg 10 mg Intravenous Q6H PRN Jj Lundberg MD 10 mg at 05/03/18 1716 nitroglycerin (NITRO-BID) 2% ointment 0.5 inch 0.5 inch Topical Q6H PRN Donald Rivera 0.5 inch at 05/01/18 1738 ondansetron (ZOFRAN ODT) disintegrating tablet 4 mg 4 mg Oral Q6H PRN Pau Hernandez MD 4 mg at 05/04/18 0827 ondansetron (ZOFRAN) injection 4 mg 4 mg Intravenous Q6H PRN Jj Lundberg MD 4 mg at 04/28/18 0611 oxyCODONE (ROXICODONE) tablet 5 mg 5 mg Oral Q4H PRN Pau Hernandez MD 5 mg at 1351 pantoprazole (PROTONIX) DR tablet 40 mg 40 mg Oral BID AC Jj Lundberg MD 40 mg at 0 05/04/18 1648 [START ON 05/05/2018] potassium chloride (Klor-Con M20) ER tablet 40 mEq 40 mEq Oral BI D Delia Parson MD Current Infusions: Objective Data Point of care glucose No results for input(s): POCGLU in the last 168 hours. Labs last 24 hours Recent Results (from the past 24 hour(s)) Basic Metabolic Panel Collection Time: 05/04/18 5:01 Result Value Ref Range Na 136 136 - 149 mmol/L K 3.1 (L) 3.5 - 5.1 mmol/L Cl 101 98 - 109 mmol/L CO2 26 24 - 31 mmol/L Anion Gap 9 3 - 16 mmol/L Glucose 90 70 - 109 mg/dL BUN 9 7 - 18 mg/dL Creatinine 1.03 0.60 - 1.30 mg/dL eGFR if not 59 (L) >=60 mL/min/1.73m2 Ca 7.7 (L) 8.3 - 10.5 mg/dL BUN/Creatinine Ratio 8.7 Magnesium Collection Time: 05/04/18 5:01 Result Value Ref Range Magnesium 1.9 1.8 - 2.5 mg/dL Extra Lavender Top Tube Collection Time: 05/04/18 5:01 Result Value Ref Range Extra Lavender Top Tube Done Micro results (more choices using dot micro) Microbiology Results (72 hrs) No results found for the last 72 hours. Radiology results (more choices using dot risresults) No results found. Vitals Ranges: Temp: [36.8 C (98.2 F)-37.2 C (99 F)] 37 C (98.6 F) Pulse: [72-82] 82 Resp: [16-18] 16 BP: (111-123)/(51-57) 111/56 Vitals: Temp: 37 C (98.6 F) BP: 111/56 Pulse: 82 Resp: 16 SpO2: 98 % SpO2 98 % on room air Delia Parson MD 05/04/2018 18:04 [facility] Danielle Vera RD - 05/04/2018 9:13 AM PSTIntake variable 25-90%. Experiencing occasional nausea with vom iting. Monitor intake and provide preferences as possible within diet and fluid modification . Pau Thomas MD - 3:05 PM PST [facility] PROGRESS NOTE Patient: Tiny Campuzano : 1975: Age: 42 y.o. MedRec: [id number] Admission date: 04/23/2018 Hospital day # : 10 Physician author: Pau Hernandez MD Today: 05/03/2018 Assessment and Hospital Course Active Hospital Problems Diagnosis Anasarca Resolved Hospital Problems Diagnosis No resolved problems to display. 42 yo F with history of alcoholic cirrhosis, diet controlled diabetes, who presented with o ngoing weight gain and abdominal pain and nausea. Plan #Anasarca due to cirrhosis #Suspected decompensated systolic congestive heart failure Patient presented with volume overload likely related to both decompensated liver and heart failure. Echo 03/19/18 at [facility] showed EF 45% with apical WMA. Have not repeated echo here. Ryley morataya did also have stress test at that time that was abnormal but medical management was pu rsued. Transitioned to Bumex 04/28 from furosemide. Notable improvement in diuresis with increased dose of Bumex to 2 mg twice a day. Will continue this for now. Renal function is improved fr om prior. Weight continues to decrease. - lymphedema wraps - monitor electrolytes (replacing Mg today) - daily weights - fluid restriction #Chest and abdominal pain Patient has intermittent chest and abdominal wall pain. EKG unremarkable, do not suspect AC S. Patient had extensive workup for right upper quadrant pain in March. Patient is quite h yperalgesic at times flinching with even light touch, particularly to areas where she is goldy matous. #JOSE - resolved Possibly in the setting of diuresis also with toradol use here in the hospital. No further NSAIDs for now. Continuing diuresis and close monitoring. Renal function has improved consid erably in the last few days. #Dizziness Patient denies dizziness currently, I'm less convinced that this was related to diuretic at this point. Head MRI 03/27/18 was unremarkable. Patient has chronically borderline low blood pressures which may be related to her underlying liver disease. #Alcoholic cirrhosis Patient reports not used alcohol since Feb 2018. Continue lactulose. Hold spironolactone fo r now while we are aggressively diuresing. Will need outpatient follow up. #CAD Patient denies chest pain currently. Recent abnormal stress test, medical management was pu rsued. - continue aspirin, statin, beta bertrand #Thrombocytopenia Relatively mild, likely sequela of liver disease. Holding heparin and encouraging ambulatio n. Patient does have large bruise on RUE where she previously received heparin injection. #Anemia Likely ACD. Ferritin, retic count unremarkable. CTM. #Obesity BMI 48 #Prolonged QTc Patient has QTc >500. Avoid QT prolonging medications as we are able. FEN: fluid restricted, cardiac Ppx: ambulate TID Disposition: pending clinical course Subjective CC: anxiety, pain Patient feeling a little better today. Less anxious now that she is in a different hospital room (was previously on 3rd floor). Thinks her swelling is continuing to improve. Had twing e of chest pain before lunch that self resolved. ROS was performed and was negative except as noted above. Exam Gen: WDWN, nad HEENT: MMM, neck supple, poor dentition CV: regular rate and rhythm, no m/r/g Pulm: LCAB, no wheezes or rales Abdominal: soft, abdominal wall edema noted laterally that is improved and less firm than p rior, positive bowel tones Extremities: well perfused, lymphedema wraps in place Skin: warm, dry, no rashes Neuro: alert, CN intact, no focal deficits Psych: anxious affect, limited insight at times Allergies: No Known Allergies Current Medications: Current Facility-Administered Medications Medication Dose Route Frequency Provider Last Rate Last Dose budesonide (PULMICORT) 0.5 mg/2 mL nebulizer solution 0.5 mg 0.5 mg Nebulization RT BI D Jj Lundberg MD 0.5 mg at 05/03/18 0950 And albuterol 5 mg/mL concentrated nebulizer solution 2.5 mg 2.5 mg Nebulization RT BID Zainab Lundberg MD 2.5 mg at 05/03/18 0954 And albuterol 2.5 mg/3 mL nebulizer solution 2.5 mg 2.5 mg Nebulization Q12H Jj Lundberg MD 2.5 mg at 05/03/18 0351 albuterol-ipratropium 2.5-0.5 mg/3 mL nebulizer solution 3 mL 3 mL Nebulization RT Q4H PRN Jj Lundberg MD 3 mL at 04/26/18 210 aspirin EC tablet 81 mg 81 mg Oral Daily Jj Lundberg MD 81 mg at 05/03/18 0858 atorvaSTATin (LIPITOR) tablet 40 mg 40 mg Oral Nightly Jj Lundberg MD 40 mg at 04/16 10/01 220 bumetanide (BUMEX) injection 2 mg 2 mg Intravenous BID Pau Hernandez MD 2 mg at 04/16 11/01 0858 chlorhexidine (HIBICLENS) 4 % liquid Topical Daily Jj Lundberg MD fluticasone (FLONASE) 50 mcg/nasal spray 2 spray 2 spray Each Nare Daily Arvind peck MD 2 spray at 05/01/18 0919 hydrOXYzine pamoate (VISTARIL) capsule 25 mg 25 mg Oral Q6H PRN Jj Lundberg MD 25 m g at 05/02/18 1057 lactulose liquid 20 g 20 g Oral Daily Jj Lundberg MD 20 g at 05/03/18 0858 LORazepam (ATIVAN) tablet 1 mg 1 mg Oral Q6H PRN Pau Hernandez MD 1 mg at 05/02/18 1 255 metoclopramide (REGLAN) 5 mg/mL injection 10 mg 10 mg Intravenous Q6H PRN Jj Lundberg MD nitroglycerin (NITRO-BID) 2% ointment 0.5 inch 0.5 inch Topical Q6H PRN Donald Rivera D 0.5 inch at 05/01/18 1738 ondansetron (ZOFRAN ODT) disintegrating tablet 4 mg 4 mg Oral Q6H PRN Pau Hernandez MD 4 mg at 05/03/18 1428 ondansetron (ZOFRAN) injection 4 mg 4 mg Intravenous Q6H PRN Jj Lundberg MD 4 mg at 04/28/18 0611 oxyCODONE (ROXICODONE) tablet 5 mg 5 mg Oral Q4H PRN Pau Hernandez MD 5 mg at 1428 pantoprazole (PROTONIX) DR tablet 40 mg 40 mg Oral BID AC Jj Lundberg MD 40 mg at 0 05/03/18 0638 potassium chloride (Klor-Con M20) ER tablet 40 mEq 40 mEq Oral Daily Pau Hernandez MD 40 mEq at 05/03/18 0857 Current Infusions: Objective Data Point of care glucose No results for input(s): POCGLU in the last 168 hours. Labs last 24 hours Recent Results (from the past 24 hour(s)) CBC with Differential Collection Time: 05/03/18 5:06 Result Value Ref Range WBC 7.5 4.0 - 11.0 K/uL RBC 3.26 (L) 3.70 - 5.20 M/uL Hemoglobin 9.0 (L) 11.5 - 16.0 g/dL Hematocrit 28.0 (L) 34.0 - 47.0 % MCV 85.9 83.0 - 101.0 fL MCH 27.6 (L) 28.0 - 35.0 pg MCHC 32.1 32.0 - 36.0 g/dL RDW-CV 19.9 (H) <15.0 % RDW-SD 63.2 (H) 35.1 - 46.3 fL Platelet Count 117 (L) 140 - 440 K/uL MPV 10.1 6.5 - 12.4 fL % Neutrophils 50.2 45.0 - 82.0 % % Lymphocytes 32.3 20.0 - 45.0 % % Monocytes 9.7 4.0 - 12.0 % % Eosinophils 6.6 (H) 0.0 - 5.0 % % Basophils 0.9 0.0 - 1.0 % % Immature Granulocytes 0.3 0.0 - 0.4 % Absolute Neutrophils 3.75 1.80 - 8.50 K/uL Absolute Lymphocytes 2.41 0.60 - 3.20 K/uL Absolute Monocytes 0.72 0.00 - 1.00 K/uL Absolute Eosinophils 0.49 (H) 0.00 - 0.40 K/uL Absolute Basophils 0.07 0.00 - 0.10 K/uL Absolute Immature Granulocytes 0.02 0.00 - 0.03 K/uL % nRBC 0 0 - 2 per 100 WBC's Absolute nRBC 0.00 0.00 - 0.01 K/uL Comprehensive Metabolic Panel Collection Time: 05/03/18 5:06 Result Value Ref Range Na 137 136 - 149 mmol/L K 3.4 (L) 3.5 - 5.1 mmol/L Cl 102 98 - 109 mmol/L CO2 26 24 - 31 mmol/L Anion Gap 9 3 - 16 mmol/L Glucose 92 70 - 109 mg/dL BUN 10 7 - 18 mg/dL Creatinine 1.11 0.60 - 1.30 mg/dL eGFR if not 54 (L) >=60 mL/min/1.73m2 Ca 7.9 (L) 8.3 - 10.5 mg/dL Albumin 2.3 (L) 3.2 - 5.0 g/dL Bilirubin Total 1.5 0.1 - 1.5 mg/dL Total Protein 5.6 (L) 6.0 - 7.8 g/dL AST 34 10 - 42 U/L ALT 14 6 - 45 U/L Alkaline Phosphatase 140 (H) 40 - 110 U/L Globulin 3.3 2.1 - 3.8 g/dL Albumin/Globulin Ratio 0.7 (L) 0.8 - 2.0 BUN/Creatinine Ratio 9.0 Magnesium Collection Time: 05/03/18 5:06 Result Value Ref Range Magnesium 1.6 (L) 1.8 - 2.5 mg/dL Micro results (more choices using dot micro) Microbiology Results (72 hrs) No results found for the last 72 hours. Radiology results (more choices using dot risresults) No results found. Vitals Ranges: Temp: [36.8 C (98.2 F)-37.3 C (99.2 F)] 36.8 C (98.2 F) Pulse: [73-88] 73 Resp: [16-20] 18 BP: (107-119)/(48-53) 111/48 Vitals: Temp: 36.8 C (98.2 F) BP: 111/48 Pulse: 73 Resp: 18 SpO2: 99 % SpO2 99 % on room air Pau Hernandez MD 05/03/2018 15:05 [facility] llety, Benjie Connell - 05/02/2018 2:31 PM PSTReport received, from FREYA Estrada. [facility]. ar Pau echols MD - 05/02/2018 12:38 PM PST [facility] PROGRESS NOTE Patient: Tiny Campuzano : 1975: Age: 42 y.o. MedRec: [id number] Admission date: 04/23/2018 Hospital day # : 9 Physician author: Pau Hernandez MD Today: 05/02/2018 Assessment and Hospital Course Active Hospital Problems Diagnosis Anasarca Resolved Hospital Problems Diagnosis No resolved problems to display. 42 yo F with history of alcoholic cirrhosis, diet controlled diabetes, who presented with o ngoing weight gain and abdominal pain and nausea. Plan #Anasarca due to cirrhosis #Suspected decompensated systolic congestive heart failure Patient presented with volume overload likely related to both decompensated liver and heart failure. Echo 03/19/18 at [facility] showed EF 45% with apical WMA. Transitioned to Bumex 04/28 from furosemide. Notable improvement in diuresis with increased dose of Bumex to 2 mg twice a day. Will continue this for now. Renal function is improved fr om prior. Weight down 142.2kg to 140.2kg today. - lymphedema wraps - monitor electrolytes - daily weights - fluid restriction #Chest and abdominal pain Patient complaining of chest and abdominal discomfort. EKG unremarkable and vital signs sta ble. Patient had workup for right upper quadrant pain previously that was unremarkable. Doub t ACS. Patient states that this happens when she feels anxious. Will trial Ativan (pt aware that we this is not a emotional support teacher medication) today to see if this helps. Otherwise, suspect s ome of her discomfort may be due to her massive edema - she is at times quite hyperalgesic t o touch in areas where she is edematous, especially on the sides of her abdomen. #JOSE - resolved Possibly in the setting of diuresis also with toradol use here in the hospital. No further NSAIDs for now. Continuing diuresis and close monitoring. #Dizziness Patient denies dizziness currently, I'm less convinced that this was related to diuretic at this point. Head MRI 03/27/18 was unremarkable. Patient has chronically borderline low blood pressures which may be related to her underlying liver disease. #Alcoholic cirrhosis Patient has not used alcohol since Feb 2018. Continue lactulose. Hold spironolactone for no w while we are aggressively diuresing. Will need outpatient follow up. #CAD Patient denies chest pain currently. Recent abnormal stress test, medical management was pu rsued. - continue aspirin, statin, beta bertrand #Thrombocytopenia Relatively mild, likely sequela of liver disease. Holding heparin and encouraging ambulatio n. #Anemia Likely ACD. Ferritin, retic count unremarkable. CTM. #Obesity BMI 48 #Prolonged QTc Patient has QTc >500. Avoid QT prolonging medications as we are able. FEN: fluid restricted, cardiac Ppx: ambulate TID Disposition: pending clinical course Subjective CC: anxiety, diffuse pain Patient sitting up in a chair today. Has stable abdominal pain and chest discomfort. Denies radiation of pain. Denies shortness of breath. ROS was performed and was negative except as noted above. Exam Gen: WDWN, nad HEENT: MMM, neck supple, poor dentition CV: regular rate and rhythm, no m/r/g Pulm: LCAB, no wheezes or rales Abdominal: soft, abdominal wall edema noted laterally that is improved and less firm than y , positive bowel tones Extremities: well perfused, edema extends from lower extremities to pannus - stable from Skin: warm, dry, no rashes Neuro: alert, CN intact, no focal deficits Psych: anxious affect, limited insight at times Allergies: No Known Allergies Current Medications: Current Facility-Administered Medications Medication Dose Route Frequency Provider Last Rate Last Dose budesonide (PULMICORT) 0.5 mg/2 mL nebulizer solution 0.5 mg 0.5 mg Nebulization RT BI D Jj Lundberg MD 0.5 mg at 05/02/18 0751 And albuterol 5 mg/mL concentrated nebulizer solution 2.5 mg 2.5 mg Nebulization RT BID Zainab Lundebrg MD 2.5 mg at 05/02/18 0752 And albuterol 2.5 mg/3 mL nebulizer solution 2.5 mg 2.5 mg Nebulization Q12H Jj Lundberg MD 2.5 mg at 05/02/18 0332 albuterol-ipratropium 2.5-0.5 mg/3 mL nebulizer solution 3 mL 3 mL Nebulization RT Q4H PRN Jj Lundberg MD 3 mL at 04/26/18 210 aspirin EC tablet 81 mg 81 mg Oral Daily Jj Lundberg MD 81 mg at 05/02/18 0825 atorvaSTATin (LIPITOR) tablet 40 mg 40 mg Oral Nightly Jj Lundberg MD 40 mg at 04/16 09/01 204 bumetanide (BUMEX) injection 2 mg 2 mg Intravenous BID Pau Hernandez MD 2 mg at 04/16 10/01 0824 chlorhexidine (HIBICLENS) 4 % liquid Topical Daily Jj Lundberg MD fluticasone (FLONASE) 50 mcg/nasal spray 2 spray 2 spray Each Nare Daily Arvind peck MD 2 spray at 05/01/18 0919 hydrOXYzine pamoate (VISTARIL) capsule 25 mg 25 mg Oral Q6H PRN Jj Lundberg MD 25 m g at 05/02/18 1057 lactulose liquid 20 g 20 g Oral Daily Jj Lundberg MD 20 g at 05/02/18 0934 LORazepam (ATIVAN) tablet 1 mg 1 mg Oral Q6H PRN Pau Hernandez MD magnesium oxide (MAG-OX) tablet 400 mg 400 mg Oral BID Jj Lundberg MD 400 mg at 0825 metoclopramide (REGLAN) 5 mg/mL injection 10 mg 10 mg Intravenous Q6H PRN Jj Lundberg MD nitroglycerin (NITRO-BID) 2% ointment 0.5 inch 0.5 inch Topical Q6H PRN Donald Rivera D 0.5 inch at 05/01/18 1738 ondansetron (ZOFRAN ODT) disintegrating tablet 4 mg 4 mg Oral Q6H PRN Pau Hernandez MD 4 mg at 05/01/18 1624 ondansetron (ZOFRAN) injection 4 mg 4 mg Intravenous Q6H PRN Jj Lundberg MD 4 mg at 04/28/18 0611 oxyCODONE (ROXICODONE) tablet 5 mg 5 mg Oral Q4H PRN Pau Hernandez MD 5 mg at 0649 pantoprazole (PROTONIX) DR tablet 40 mg 40 mg Oral BID AC Jj Lundberg MD 40 mg at 0 05/02/18 0649 Current Infusions: Objective Data Point of care glucose No results for input(s): POCGLU in the last 168 hours. Labs last 24 hours Recent Results (from the past 24 hour(s)) ECG 12 lead Collection Time: 05/01/18 17:49 Result Value Ref Range VENTRICULAR RATE EKG 83 BPM ATRIAL RATE 83 BPM P-R INTERVAL 176 ms QRS DURATION 94 ms Q-T INTERVAL 488 ms Q-T INTERVAL (CORRECTED) 573 ms P WAVE AXIS 37 degrees QRS AXIS 90 degrees T AXIS 74 degrees INTERPRETATION TEXT Normal sinus rhythm Long QTc Rightward axis Anterior infarct (cited on or before 23-APR-2018) Nonspecific T wave abnormality Anterolateral leads Long QTc Abnormal ECG When compared with ECG of 24-APR-2018 07:57, QRS axis has shifted rightward Nonspecific T wave abnormality, worse in leads I and aVL Criteria for Anterior infarct , age undetermined has replaced Criteria for Anterolateral in farct , age undetermined Confirmed by BONNIE SPARKS, EREN ([id number]) on 05/02/2018 8:38:52 AM Basic Metabolic Panel Collection Time: 05/02/18 5:48 Result Value Ref Range Na 139 136 - 149 mmol/L K 3.4 (L) 3.5 - 5.1 mmol/L Cl 105 98 - 109 mmol/L CO2 27 24 - 31 mmol/L Anion Gap 7 3 - 16 mmol/L Glucose 103 70 - 109 mg/dL BUN 11 7 - 18 mg/dL Creatinine 1.10 0.60 - 1.30 mg/dL eGFR if not 54 (L) >=60 mL/min/1.73m2 Ca 8.0 (L) 8.3 - 10.5 mg/dL BUN/Creatinine Ratio 10.0 Magnesium Collection Time: 05/02/18 5:48 Result Value Ref Range Magnesium 1.7 (L) 1.8 - 2.5 mg/dL Extra Lavender Top Tube Collection Time: 05/02/18 6:30 Result Value Ref Range Extra Lavender Top Tube Done Micro results (more choices using dot micro) Microbiology Results (72 hrs) No results found for the last 72 hours. Radiology results (more choices using dot risresults) No results found. Vitals Ranges: Temp: [36.7 C (98 F)-36.9 C (98.4 F)] 36.7 C (98 F) Pulse: [74-99] 74 Resp: [20-28] 20 BP: (103-131)/(54-60) 131/60 Vitals: Temp: 36.7 C (98 F) BP: 131/60 Pulse: 74 Resp: 20 SpO2: 100 % SpO2 100 % on room air Pau Hernandez MD 05/02/2018 12:39 [facility] Mary Torres RN - 0 05/01/2018 7:42 PM PSTAt approximately 1730 pt c/o deep/sharp chest pain. She was observed c lutching her chest, taking deep breaths. Rated her pain 6/10. VS taken, within parameters. P rovider notified. PRN nitro paste given. EKG ordered. No significant changes to EKG from pre vious, per . Pt reports pain decreased to 4/10. Pain has now subsided and pt reports she b elieves she was having anxiety d/t being notified by family earlier in the day that an unwan kishan ex boyfriend was enroute to hospital. Arrangements were made- pt made "private". Securit y and staff aware. No further episodes of chest pain or anxiety. WCTM. Pau Thomas MD - 05/01/2018 12:13 PM PSTF ormatting of this note might be different from the original. [facility] PROGRESS NOTE Patient: Tiny Campuzano : 1975: Age: 42 y.o. MedRec: [id number] Admission date: 04/23/2018 Hospital day # : 8 Physician author: Pau Hernandez MD Today: 05/01/2018 Assessment and Hospital Course Active Hospital Problems Diagnosis Anasarca Resolved Hospital Problems Diagnosis No resolved problems to display. 42 yo F with history of alcoholic cirrhosis, diet controlled diabetes, who presented with o ngoing weight gain and abdominal pain and nausea. Plan #Anasarca due to cirrhosis #Suspected decompensated systolic congestive heart failure Patient presented with volume overload likely related to both decompensated liver and heart failure. Echo 03/19/18 at [facility] showed EF 45% with apical WMA. Transitioned to Bumex 04/28 from furosemide. Notable improvement in diuresis with increased dose of Bumex to 2 mg twice a day. Will continue this for now. Renal function is improved fr om prior. - wrap legs - monitor electrolytes - daily weights - fluid restriction #JOSE - resolved Possibly in the setting of diuresis also with toradol use here in the hospital. No further NSAIDs for now. Continuing diuresis and close monitoring. #Dizziness Patient denies dizziness currently, I'm less convinced that this was related to diuretic at this point. Head MRI 03/27/18 was unremarkable. Patient has chronically borderline low blood pressures which may be related to her underlying liver disease. #Alcoholic cirrhosis Patient has not used alcohol since Feb 2018. Continue lactulose. Hold spironolactone for no w while we are aggressively diuresing. #CAD Patient denies chest pain currently. Recent abnormal stress test, medical management was pu rsued. - continue aspirin, statin, beta bertrand #Thrombocytopenia Relatively mild, likely sequela of liver disease. Holding heparin and encouraging ambulatio n. #Anemia Likely ACD. Ferritin, retic count unremarkable. CTM. #Obesity BMI 48 #Prolonged QTc Patient has QTc >500. Avoid QT prolonging medications as we are able. FEN: fluid restricted, cardiac Ppx: ambulate TID Disposition: pending clinical course Subjective CC: fatigue Patient is very sleepy today, minimally interactive. ROS was performed and was negative except as noted above. Exam Gen: WDWN, nad HEENT: MMM, neck supple, poor dentition CV: regular rate and rhythm, no m/r/g Pulm: LCAB, no wheezes or rales Abdominal: soft, abdominal wall edema noted laterally, positive bowel tones Extremities: well perfused, edema extends from lower extremities to pannus Skin: warm, dry, no rashes Neuro: alert, CN intact, no focal deficits Psych: normal mood and affect Allergies: No Known Allergies Current Medications: Current Facility-Administered Medications Medication Dose Route Frequency Provider Last Rate Last Dose budesonide (PULMICORT) 0.5 mg/2 mL nebulizer solution 0.5 mg 0.5 mg Nebulization RT BI D Jj Lundberg MD 0.5 mg at 05/01/18 0945 And albuterol 5 mg/mL concentrated nebulizer solution 2.5 mg 2.5 mg Nebulization RT BID Zainab Lundberg MD 2.5 mg at 05/01/18 0945 And albuterol 2.5 mg/3 mL nebulizer solution 2.5 mg 2.5 mg Nebulization Q12H Jj Lundberg MD 2.5 mg at 05/01/18 0359 albuterol-ipratropium 2.5-0.5 mg/3 mL nebulizer solution 3 mL 3 mL Nebulization RT Q4H PRN Jj Lundberg MD 3 mL at 04/26/182101 aspirin EC tablet 81 mg 81 mg Oral Daily Jj Lundberg MD 81 mg at 05/01/18 09 atorvaSTATin (LIPITOR) tablet 40 mg 40 mg Oral Nightly Jj Lundberg MD 40 mg at 04/16 bumetanide (BUMEX) injection 2 mg 2 mg Intravenous BID Pau Hernandez MD 2 mg at 04/16 chlorhexidine (HIBICLENS) 4 % liquid Topical Daily Jj Lundberg MD fluticasone (FLONASE) 50 mcg/nasal spray 2 spray 2 spray Each Nare Daily Arvind peck MD 2 spray at 05/01/18 09 hydrOXYzine pamoate (VISTARIL) capsule 25 mg 25 mg Oral Q6H PRN Jj Lundberg MD 25 m g at 05/01/18 0916 lactulose liquid 20 g 20 g Oral Daily Jj Lundberg MD 20 g at 05/01/18 0913 magnesium oxide (MAG-OX) tablet 400 mg 400 mg Oral BID Jj Lundberg MD 400 mg at 0913 metoclopramide (REGLAN) 5 mg/mL injection 10 mg 10 mg Intravenous Q6H PRN Jj Lundberg MD nitroglycerin (NITRO-BID) 2% ointment 0.5 inch 0.5 inch Topical Q6H PRN Donald Rivera D ondansetron (ZOFRAN ODT) disintegrating tablet 4 mg 4 mg Oral Q6H PRN Pau Hernandez MD 4 mg at 05/01/18 0916 ondansetron (ZOFRAN) injection 4 mg 4 mg Intravenous Q6H PRN Jj Lundberg MD 4 mg at 04/28/18 0611 oxyCODONE (ROXICODONE) tablet 5 mg 5 mg Oral Q4H PRN Pau Hernandez MD 5 mg at 1206 pantoprazole (PROTONIX) DR tablet 40 mg 40 mg Oral BID AC Jj Lundberg MD 40 mg at 0 05/01/18 0603 Current Infusions: Objective Data Point of care glucose No results for input(s): POCGLU in the last 168 hours. Labs last 24 hours Recent Results (from the past 24 hour(s)) CBC with Differential Collection Time: 05/01/18 5:45 Result Value Ref Range WBC 7.9 4.0 - 11.0 K/uL RBC 3.19 (L) 3.70 - 5.20 M/uL Hemoglobin 8.7 (L) 11.5 - 16.0 g/dL Hematocrit 27.1 (L) 34.0 - 47.0 % MCV 85.0 83.0 - 101.0 fL MCH 27.3 (L) 28.0 - 35.0 pg MCHC 32.1 32.0 - 36.0 g/dL RDW-CV 20.1 (H) <15.0 % RDW-SD 63.5 (H) 35.1 - 46.3 fL Platelet Count 113 (L) 140 - 440 K/uL MPV 9.6 6.5 - 12.4 fL % Neutrophils 47.4 45.0 - 82.0 % % Lymphocytes 34.1 20.0 - 45.0 % % Monocytes 9.1 4.0 - 12.0 % % Eosinophils 7.9 (H) 0.0 - 5.0 % % Basophils 1.1 (H) 0.0 - 1.0 % % Immature Granulocytes 0.4 0.0 - 0.4 % Absolute Neutrophils 3.74 1.80 - 8.50 K/uL Absolute Lymphocytes 2.69 0.60 - 3.20 K/uL Absolute Monocytes 0.72 0.00 - 1.00 K/uL Absolute Eosinophils 0.62 (H) 0.00 - 0.40 K/uL Absolute Basophils 0.09 0.00 - 0.10 K/uL Absolute Immature Granulocytes 0.03 0.00 - 0.03 K/uL % nRBC 0 0 - 2 per 100 WBC's Absolute nRBC 0.00 0.00 - 0.01 K/uL Basic Metabolic Panel Collection Time: 05/01/18 6:15 Result Value Ref Range Na 137 136 - 149 mmol/L K 3.6 3.5 - 5.1 mmol/L Cl 108 98 - 109 mmol/L CO2 26 24 - 31 mmol/L Anion Gap 3 3 - 16 mmol/L Glucose 82 70 - 109 mg/dL BUN 11 7 - 18 mg/dL Creatinine 1.15 0.60 - 1.30 mg/dL eGFR if not 52 (L) >=60 mL/min/1.73m2 Ca 8.0 (L) 8.3 - 10.5 mg/dL BUN/Creatinine Ratio 9.6 Micro results (more choices using dot micro) Microbiology Results (72 hrs) No results found for the last 72 hours. Radiology results (more choices using dot risresults) No results found. Vitals Ranges: Temp: [36.7 C (98.1 F)-37.1 C (98.8 F)] 36.7 C (98.1 F) Pulse: [77-90] 90 Resp: [16-22] 22 BP: (104-116)/(51-57) 116/57 Vitals: Temp: 36.7 C (98.1 F) BP: 116/57 Pulse: 90 Resp: 22 SpO2: 100 % SpO2 100 % on room air Pau Hernandez MD 05/01/2018 12:13 [facility] arter, MD Pau - 2:22 PM PST [facility] PROGRESS NOTE Patient: Tiny Campuzano : 1975: Age: 42 y.o. MedRec: [id number] Admission date: 04/23/2018 Hospital day # : 7 Physician author: Pau Hernandez MD Today: 04/30/2018 Assessment and Hospital Course Active Hospital Problems Diagnosis Anasarca Resolved Hospital Problems Diagnosis No resolved problems to display. 42 yo F with history of alcoholic cirrhosis, diet controlled diabetes, who presented with o ngoing weight gain and abdominal pain and nausea. Plan #Anasarca due to cirrhosis #Suspected decompensated systolic congestive heart failure Patient presented with volume overload likely related to both decompensated liver and heart failure. Echo 03/19/18 at [facility] showed EF 45% with apical WMA. Transitioned to Bumex 04/28 from furosemide. Weights have been really variable but patient h as not diuresed much so will increase Bumex to 2g twice a day. Renal function is slightly el evated but stable today. May add metolazone tomorrow if no improvement in diuresis. Patient denies dizziness. - wrap legs - monitor electrolytes - daily weights - fluid restriction #JOSE Possibly in the setting of diuresis also with toradol use here in the hospital. No further NSAIDs for now. Continuing diuresis and close monitoring. #Dizziness Patient denies dizziness currently, I'm less convinced that this was related to diuretic at this point. Head MRI 03/27/18 was unremarkable. Patient has chronically borderline low blood pressures which may be related to her underlying liver disease. #Alcoholic cirrhosis Patient has not used alcohol since Feb 2018. Continue lactulose. Hold spironolactone for no w. #Acute on chronic right upper quadrant pain No acute pathology per imaging or surgery evaluation. Thought to be related to anasarca, po ssibly with constipation contributing. CTM. #CAD Patient denies chest pain currently. Recent abnormal stress test, medical management was pu rsued. - continue aspirin, statin, beta bertrand #Thrombocytopenia Relatively mild, likely sequela of liver disease. Holding heparin and encouraging ambulatio n. #Anemia Likely ACD. Ferritin, retic count unremarkable. CTM. #Obesity BMI 48 FEN: fluid restricted, cardiac Ppx: ambulate TID Disposition: pending clinical course Subjective CC: ankle swelling Patient endorses worsening of swelling in her ankles today. Abdominal edema stable. Pain re asonably controlled. Denies dizziness today. ROS was performed and was negative except as noted above. Exam Gen: WDWN, nad HEENT: MMM, neck supple, poor dentition CV: regular rate and rhythm, no m/r/g Pulm: LCAB, no wheezes or rales Abdominal: soft, abdominal wall edema noted laterally, positive bowel tones Extremities: well perfused, edema extends from lower extremities to pannus; notable bilater al ankle edema today Skin: warm, dry, no rashes Neuro: alert, CN intact, no focal deficits Psych: normal mood and affect Allergies: No Known Allergies Current Medications: Current Facility-Administered Medications Medication Dose Route Frequency Provider Last Rate Last Dose budesonide (PULMICORT) 0.5 mg/2 mL nebulizer solution 0.5 mg 0.5 mg Nebulization RT BI D Jj Lundberg MD 0.5 mg at 04/30/18 0957 And albuterol 5 mg/mL concentrated nebulizer solution 2.5 mg 2.5 mg Nebulization RT BID Zainab Lundberg MD 2.5 mg at 04/30/18 0957 And albuterol 2.5 mg/3 mL nebulizer solution 2.5 mg 2.5 mg Nebulization Q12H Jj Lundberg MD 2.5 mg at 04/30/18 0327 albuterol-ipratropium 2.5-0.5 mg/3 mL nebulizer solution 3 mL 3 mL Nebulization RT Q4H PRN Jj Lundberg MD 3 mL at 04/26/182101 aspirin EC tablet 81 mg 81 mg Oral Daily Jj Lunbderg MD 81 mg at 04/30/18 09 atorvaSTATin (LIPITOR) tablet 40 mg 40 mg Oral Nightly Jj Lundberg MD 40 mg at 04/16 bumetanide (BUMEX) injection 2 mg 2 mg Intravenous BID Pau Hernandez MD chlorhexidine (HIBICLENS) 4 % liquid Topical Daily Jj Lundberg MD fluticasone (FLONASE) 50 mcg/nasal spray 2 spray 2 spray Each Nare Daily Arvind peck MD 2 spray at 04/30/18 0932 hydrOXYzine pamoate (VISTARIL) capsule 25 mg 25 mg Oral Q6H PRN Jj Lundberg MD 25 m g at 04/29/18 0642 lactulose liquid 20 g 20 g Oral Daily Jj Lundberg MD 20 g at 04/30/18 0914 magnesium oxide (MAG-OX) tablet 400 mg 400 mg Oral BID Jj Lundberg MD 400 mg at 0913 metoclopramide (REGLAN) 5 mg/mL injection 10 mg 10 mg Intravenous Q6H PRN Jj Lundberg MD nitroglycerin (NITRO-BID) 2% ointment 0.5 inch 0.5 inch Topical Q6H PRN Donald Rivera ondansetron (ZOFRAN ODT) disintegrating tablet 4 mg 4 mg Oral Q6H PRN Pau Hernandez MD ondansetron (ZOFRAN) injection 4 mg 4 mg Intravenous Q6H PRN Jj Lundberg MD 4 mg at 04/28/18 0611 oxyCODONE (ROXICODONE) tablet 5 mg 5 mg Oral Q4H PRN Pau Hernandez MD pantoprazole (PROTONIX) DR tablet 40 mg 40 mg Oral BID AC Jj Lundberg MD 40 mg at 0 04/30/18 0714 Current Infusions: Objective Data Point of care glucose No results for input(s): POCGLU in the last 168 hours. Labs last 24 hours Recent Results (from the past 24 hour(s)) Basic Metabolic Panel Collection Time: 04/30/18 6:11 Result Value Ref Range Na 139 136 - 149 mmol/L K 4.4 3.5 - 5.1 mmol/L Cl 106 98 - 109 mmol/L CO2 24 24 - 31 mmol/L Anion Gap 9 3 - 16 mmol/L Glucose 84 70 - 109 mg/dL BUN 13 7 - 18 mg/dL Creatinine 1.40 (H) 0.60 - 1.30 mg/dL eGFR if not 41 (L) >=60 mL/min/1.73m2 Ca 8.0 (L) 8.3 - 10.5 mg/dL BUN/Creatinine Ratio 9.3 Magnesium Collection Time: 04/30/18 6:11 Result Value Ref Range Magnesium 2.0 1.8 - 2.5 mg/dL CBC with Differential Collection Time: 04/30/18 6:12 Result Value Ref Range WBC 7.8 4.0 - 11.0 K/uL RBC 3.20 (L) 3.70 - 5.20 M/uL Hemoglobin 8.7 (L) 11.5 - 16.0 g/dL Hematocrit 27.3 (L) 34.0 - 47.0 % MCV 85.3 83.0 - 101.0 fL MCH 27.2 (L) 28.0 - 35.0 pg MCHC 31.9 (L) 32.0 - 36.0 g/dL RDW-CV 20.5 (H) <15.0 % RDW-SD 64.4 (H) 35.1 - 46.3 fL Platelet Count 113 (L) 140 - 440 K/uL MPV 10.2 6.5 - 12.4 fL % Neutrophils 46.8 45.0 - 82.0 % % Lymphocytes 34.3 20.0 - 45.0 % % Monocytes 9.4 4.0 - 12.0 % % Eosinophils 7.7 (H) 0.0 - 5.0 % % Basophils 1.4 (H) 0.0 - 1.0 % % Immature Granulocytes 0.4 0.0 - 0.4 % Absolute Neutrophils 3.65 1.80 - 8.50 K/uL Absolute Lymphocytes 2.67 0.60 - 3.20 K/uL Absolute Monocytes 0.73 0.00 - 1.00 K/uL Absolute Eosinophils 0.60 (H) 0.00 - 0.40 K/uL Absolute Basophils 0.11 (H) 0.00 - 0.10 K/uL Absolute Immature Granulocytes 0.03 0.00 - 0.03 K/uL % nRBC 0 0 - 2 per 100 WBC's Absolute nRBC 0.00 0.00 - 0.01 K/uL Micro results (more choices using dot micro) Microbiology Results (72 hrs) No results found for the last 72 hours. Radiology results (more choices using dot risresults) No results found. Vitals Ranges: Temp: [36.5 C (97.7 F)-37 C (98.6 F)] 36.9 C (98.4 F) Pulse: [71-81] 74 Resp: [16-18] 18 BP: (92-119)/(46-55) 119/55 Vitals: Temp: 36.9 C (98.4 F) BP: 119/55 Pulse: 74 Resp: 18 SpO2: 100 % SpO2 100 % on room air Pau Hernandez MD 04/30/2018 14:22 [facility] arter, MD Pau - 12:32 PM PST [facility] PROGRESS NOTE Patient: Tiny Campuzano : 1975: Age: 42 y.o. MedRec: [id number] Admission date: 04/23/2018 Hospital day # : 6 Physician author: Pau Hernandez MD Today: 04/29/2018 Assessment and Hospital Course Active Hospital Problems Diagnosis Anasarca Resolved Hospital Problems Diagnosis No resolved problems to display. 42 yo F with history of alcoholic cirrhosis, diet controlled diabetes, who presented with o ngoing weight gain and abdominal pain and nausea. Plan #Anasarca due to cirrhosis #Suspected decompensated systolic congestive heart failure Patient presented with volume overload likely related to both decompensated liver and heart failure. Echo 03/19/18 at [facility] showed EF 45% with apical WMA. Transitioned to Bumex 04/28 from furosemide. Increased dose to 1g twice a day today. Continu e leg wraps. May need to hold off on further diuresis if creatinine continues to rise. Patie nt denies dizziness today even with higher dose Bumex. - continue IV Bumex 1 mg twice a day - wrap legs - monitor electrolytes - daily weights - fluid restriction #JOSE Possibly in the setting of diuresis also with toradol use here in the hospital. Will contin ue diuresis for now but switch to oxycodone for pain control as I worry that NSAIDs may be i mpairing her renal function. CTM. Avoid nephrotoxins. #Dizziness Possibly 2/2 diuresis. Head MRI 03/27/18 was unremarkable. CTM. Patient has chronically bord salvatore low blood pressures which may be related to her underlying liver disease. #Alcoholic cirrhosis Patient has not used alcohol since Feb 2018. Continue lactulose. Hold spironolactone for no w. #Acute on chronic right upper quadrant pain No acute pathology per imaging or surgery evaluation. Thought to be related to anasarca, po ssibly with constipation contributing. CTM. #CAD Patient denies chest pain currently. Recent abnormal stress test, medical management was pu rsued. - continue aspirin, statin, beta bertrand #Thrombocytopenia Relatively mild, likely sequela of liver disease. Holding heparin and encouraging ambulatio n. #Obesity BMI 47 FEN: fluid restricted, cardiac Ppx: ambulate TID Disposition: pending clinical course Subjective CC: diffuse pain Patient initially appeared comfortable when I walked into the room but suddenly began grima cing once we started talking. Said she is having pain from her swelling. Thinks this is unch anged. Denies fever/chills. Feels tired. ROS was performed and was negative except as noted above. Exam Gen: WDWN, nad though is grimacing from time to time HEENT: MMM, neck supple, poor dentition CV: regular rate and rhythm, no m/r/g Pulm: challenging exam given patient's body habitus but LCAB Abdominal: soft, abdominal wall edema noted laterally, positive bowel tones Extremities: well perfused, edema extends from lower extremities to pannus; bilateral lower extremity patrick wraps in place Skin: warm, dry, mild skin irritation again noted under pannus Neuro: alert, CN intact, no focal deficits Psych: normal mood and affect Allergies: No Known Allergies Current Medications: Current Facility-Administered Medications Medication Dose Route Frequency Provider Last Rate Last Dose budesonide (PULMICORT) 0.5 mg/2 mL nebulizer solution 0.5 mg 0.5 mg Nebulization RT BI D Jj Lundberg MD 0.5 mg at 04/29/18 0909 And albuterol 5 mg/mL concentrated nebulizer solution 2.5 mg 2.5 mg Nebulization RT BID Zainab Lundberg MD 2.5 mg at 04/29/18 0909 And albuterol 2.5 mg/3 mL nebulizer solution 2.5 mg 2.5 mg Nebulization Q12H Jj Lundberg MD 2.5 mg at 04/29/18 0326 albuterol-ipratropium 2.5-0.5 mg/3 mL nebulizer solution 3 mL 3 mL Nebulization RT Q4H PRN Jj Lundberg MD 3 mL at 04/26/18 210 aspirin EC tablet 81 mg 81 mg Oral Daily Jj Lundberg MD 81 mg at 04/29/18 08 atorvaSTATin (LIPITOR) tablet 40 mg 40 mg Oral Nightly Jj Lundberg MD 40 mg at 04/16 bumetanide (BUMEX) injection 1 mg 1 mg Intravenous BID Pau Hernandez MD 1 mg at 04/16 07/02 0823 chlorhexidine (HIBICLENS) 4 % liquid Topical Daily Jj Lundberg MD fluticasone (FLONASE) 50 mcg/nasal spray 2 spray 2 spray Each Nare Daily Arvind peck MD 2 spray at 04/29/18 0823 heparin 5,000 units/mL injection 5,000 Units 5,000 Units Subcutaneous 2 times per day Jj Lundberg MD 5,000 Units at 04/29/18 0822 hydrOXYzine pamoate (VISTARIL) capsule 25 mg 25 mg Oral Q6H PRN Jj Lundberg MD 25 m g at 04/29/18 0642 lactulose liquid 20 g 20 g Oral Daily Jj Lundberg MD 20 g at 04/29/18 0822 magnesium oxide (MAG-OX) tablet 400 mg 400 mg Oral BID Jj Lundberg MD 400 mg at 0822 metoclopramide (REGLAN) 5 mg/mL injection 10 mg 10 mg Intravenous Q6H PRN Jj Lundberg MD nitroglycerin (NITRO-BID) 2% ointment 0.5 inch 0.5 inch Topical Q6H PRN Donald Rivera ondansetron (ZOFRAN ODT) disintegrating tablet 4 mg 4 mg Oral Q6H PRN Pau Hernandez MD ondansetron (ZOFRAN) injection 4 mg 4 mg Intravenous Q6H PRN Jj Lundberg MD 4 mg at 04/28/18 0611 oxyCODONE (ROXICODONE) tablet 5 mg 5 mg Oral Q6H PRN Pau Hernandez MD pantoprazole (PROTONIX) DR tablet 40 mg 40 mg Oral BID AC Jj Lundberg MD 40 mg at 0 04/29/18 0642 Current Infusions: Objective Data Point of care glucose No results for input(s): POCGLU in the last 168 hours. Labs last 24 hours Recent Results (from the past 24 hour(s)) Basic Metabolic Panel Collection Time: 04/29/18 7:31 Result Value Ref Range Na 137 136 - 149 mmol/L K 4.3 3.5 - 5.1 mmol/L Cl 105 98 - 109 mmol/L CO2 25 24 - 31 mmol/L Anion Gap 7 3 - 16 mmol/L Glucose 85 70 - 109 mg/dL BUN 10 7 - 18 mg/dL Creatinine 1.39 (H) 0.60 - 1.30 mg/dL eGFR if not 42 (L) >=60 mL/min/1.73m2 Ca 8.2 (L) 8.3 - 10.5 mg/dL BUN/Creatinine Ratio 7.2 Magnesium Collection Time: 04/29/18 7:31 Result Value Ref Range Magnesium 2.0 1.8 - 2.5 mg/dL Ferritin Collection Time: 04/29/18 7:31 Result Value Ref Range FERRITIN 57 11 - 307 ng/mL Retic Count Collection Time: 04/29/18 7:31 Result Value Ref Range % Reticulocyte Count 2.0 (H) 0.5 - 1.5 % Absolute Reticulocyte Count 0.0630 0.0164 - 0.0776 M/uL Immature Reticulocyte Fraction 17.10 (H) 2.30 - 15.90 % Reticulocyte Hemoglobin Equivalent 34.3 29 - 38 pg Micro results (more choices using dot micro) Microbiology Results (72 hrs) No results found for the last 72 hours. Radiology results (more choices using dot risresults) No results found. Vitals Ranges: Temp: [36.7 C (98.1 F)-37.2 C (99 F)] 37.2 C (99 F) Pulse: [76-84] 76 Resp: [16-20] 18 BP: (90-106)/(43-55) 105/55 Vitals: Temp: 37.2 C (99 F) BP: 105/55 Pulse: 76 Resp: 18 SpO2: 99 % SpO2 99 % on room air at flow rate 0L/min Pau Hernandez MD 04/29/2018 12:33 [facility] Pau Thomas MD - 4:52 PM PST [facility] PROGRESS NOTE Patient: Tiny Campuzano : 1975: Age: 42 y.o. MedRec: [id number] Admission date: 04/23/2018 Hospital day # : 5 Physician author: Pau Hernandez MD Today: 04/28/2018 Assessment and Hospital Course Active Hospital Problems Diagnosis Anasarca Resolved Hospital Problems Diagnosis No resolved problems to display. 42 yo F with history of alcoholic cirrhosis, diet controlled diabetes, who presented with o ngoing weight gain and abdominal pain and nausea. Plan #Anasarca due to cirrhosis #Suspected decompensated systolic congestive heart failure Patient presented with volume overload likely related to both decompensated liver and heart failure. Echo 03/19/18 at [facility] showed EF 45% with apical WMA. Our ability to diurese has been limited somewhat by patient's dizziness. Transitioned to IV lasix 20 mg twice a day 04/26 and was net negative 0.5L. Our goal is 0.5-1L given patient's persistent orthostasis. Switched to Bumex today as this may be more effective given patient' s extensive bowel wall edema. Patient's legs are wrapped today. - continue IV Bumex 0.5 mg today, consider dose increase tomorrow (pt is tolerating this so far) - wrap legs - monitor electrolytes - daily weights - fluid restriction #Dizziness Possibly 2/2 diuresis. Head MRI 03/27/18 was unremarkable. #Alcoholic cirrhosis Patient has not used alcohol since Feb 2018. Continue lactulose. Hold spironolactone for no w. Patient reports that she had two large bowel movements in the last 24h. #Acute on chronic right upper quadrant pain No acute pathology per imaging or surgery evaluation. Thought to be related to anasarca, po ssibly with constipation contributing. CTM. Denies pain today. #CAD Patient denies chest pain currently. Recent abnormal stress test, medical management was pu rsued. - continue aspirin, statin, beta bertrand #Obesity BMI 47 FEN: fluid restricted, cardiac Ppx: heparin Disposition: pending clinical course Subjective CC: no acute complaints Patient feeling ok today overall. Happy to have her legs wrapped. Still with abdominal wall edema that she states is uncomfortable. Denies dizziness though felt a little dizzy this mo rning. She wonders if she is getting dizzy while waiting for assistance to go to the [facility]. ROS was performed and was negative except as noted above. Exam Gen: WDWN, nad HEENT: MMM, neck supple CV: regular rate and rhythm, no m/r/g Pulm: challenging exam given patient's body habitus but LCAB Abdominal: soft, abdominal wall edema noted, positive bowel tones Extremities: well perfused, edema extends from lower extremities to pannus; bilateral lower extremity patrick wraps in place Skin: warm, dry, mild skin irritation noted under pannus Neuro: alert, CN intact, no focal deficits Psych: normal mood and affect Allergies: No Known Allergies Current Medications: Current Facility-Administered Medications Medication Dose Route Frequency Provider Last Rate Last Dose budesonide (PULMICORT) 0.5 mg/2 mL nebulizer solution 0.5 mg 0.5 mg Nebulization RT BI D Jj Lundberg MD 0.5 mg at 04/28/18 0914 And albuterol 5 mg/mL concentrated nebulizer solution 2.5 mg 2.5 mg Nebulization RT BID Zainab Lundberg MD 2.5 mg at 04/28/18 0914 And albuterol 2.5 mg/3 mL nebulizer solution 2.5 mg 2.5 mg Nebulization Q12H Jj Lundberg MD 2.5 mg at 04/28/18 1503 albuterol-ipratropium 2.5-0.5 mg/3 mL nebulizer solution 3 mL 3 mL Nebulization RT Q4H PRN Jj Lundberg MD 3 mL at 04/26/18 210 aspirin EC tablet 81 mg 81 mg Oral Daily Jj Lundberg MD 81 mg at 04/28/18 0826 atorvaSTATin (LIPITOR) tablet 40 mg 40 mg Oral Nightly Jj Lundberg MD 40 mg at 04/16 bumetanide (BUMEX) injection 0.5 mg 0.5 mg Intravenous BID Pau Hernandez MD 0.5 mg a t 04/28/18 0826 chlorhexidine (HIBICLENS) 4 % liquid Topical Daily Jj Lundberg MD fluticasone (FLONASE) 50 mcg/nasal spray 2 spray 2 spray Each Nare Daily Arvind peck MD 2 spray at 04/28/18 0834 heparin 5,000 units/mL injection 5,000 Units 5,000 Units Subcutaneous 2 times per day Jj Lundberg MD 5,000 Units at 04/26/18 2041 hydrOXYzine pamoate (VISTARIL) capsule 25 mg 25 mg Oral Q6H PRN Jj Lundberg MD 25 m g at 04/28/18 1457 ketorolac (TORADOL) injection 15 mg 15 mg Intravenous Q6H PRN Jj Lundberg MD 15 mg at 04/28/18 1634 lactulose liquid 20 g 20 g Oral Daily Jj Lundberg MD 20 g at 04/28/18 0826 magnesium oxide (MAG-OX) tablet 400 mg 400 mg Oral BID Jj Lundberg MD 400 mg at 0826 metoclopramide (REGLAN) 5 mg/mL injection 10 mg 10 mg Intravenous Q6H PRN Jj Lundberg MD nitroglycerin (NITRO-BID) 2% ointment 0.5 inch 0.5 inch Topical Q6H PRN Donald Rivera ondansetron (ZOFRAN ODT) disintegrating tablet 4 mg 4 mg Oral Q6H PRN Pau Hernandez MD ondansetron (ZOFRAN) injection 4 mg 4 mg Intravenous Q6H PRN Jj Lundberg MD 4 mg at 04/28/18 0611 pantoprazole (PROTONIX) DR tablet 40 mg 40 mg Oral BID AC Jj Lundberg MD 40 mg at 0 04/28/18 1634 Current Infusions: Objective Data Point of care glucose No results for input(s): POCGLU in the last 168 hours. Labs last 24 hours Recent Results (from the past 24 hour(s)) CBC with Differential Collection Time: 04/28/18 6:07 Result Value Ref Range WBC 7.9 4.0 - 11.0 K/uL RBC 3.32 (L) 3.70 - 5.20 M/uL Hemoglobin 9.0 (L) 11.5 - 16.0 g/dL Hematocrit 28.4 (L) 34.0 - 47.0 % MCV 85.5 83.0 - 101.0 fL MCH 27.1 (L) 28.0 - 35.0 pg MCHC 31.7 (L) 32.0 - 36.0 g/dL RDW-CV 20.9 (H) <15.0 % RDW-SD 65.5 (H) 35.1 - 46.3 fL Platelet Count 111 (L) 140 - 440 K/uL MPV 9.5 6.5 - 12.4 fL % Neutrophils 51.0 45.0 - 82.0 % % Lymphocytes 31.1 20.0 - 45.0 % % Monocytes 9.1 4.0 - 12.0 % % Eosinophils 7.3 (H) 0.0 - 5.0 % % Basophils 1.1 (H) 0.0 - 1.0 % % Immature Granulocytes 0.4 0.0 - 0.4 % Absolute Neutrophils 4.02 1.80 - 8.50 K/uL Absolute Lymphocytes 2.46 0.60 - 3.20 K/uL Absolute Monocytes 0.72 0.00 - 1.00 K/uL Absolute Eosinophils 0.58 (H) 0.00 - 0.40 K/uL Absolute Basophils 0.09 0.00 - 0.10 K/uL Absolute Immature Granulocytes 0.03 0.00 - 0.03 K/uL % nRBC 0 0 - 2 per 100 WBC's Absolute nRBC 0.00 0.00 - 0.01 K/uL Basic Metabolic Panel Collection Time: 04/28/18 6:07 Result Value Ref Range Na 137 136 - 149 mmol/L K 4.2 3.5 - 5.1 mmol/L Cl 105 98 - 109 mmol/L CO2 23 (L) 24 - 31 mmol/L Anion Gap 9 3 - 16 mmol/L Glucose 103 70 - 109 mg/dL BUN 10 7 - 18 mg/dL Creatinine 1.20 0.60 - 1.30 mg/dL eGFR if not 49 (L) >=60 mL/min/1.73m2 Ca 8.2 (L) 8.3 - 10.5 mg/dL BUN/Creatinine Ratio 8.3 Magnesium Collection Time: 04/28/18 6:07 Result Value Ref Range Magnesium 2.1 1.8 - 2.5 mg/dL Micro results (more choices using dot micro) Microbiology Results (72 hrs) No results found for the last 72 hours. Radiology results (more choices using dot risresults) No results found. Vitals Ranges: Temp: [36.5 C (97.7 F)-36.9 C (98.4 F)] 36.8 C (98.2 F) Pulse: [75-90] 84 Resp: [16-22] 16 BP: (95-111)/(45-53) 106/51 Vitals: Temp: 36.8 C (98.2 F) BP: 106/51 Pulse: 84 Resp: 16 SpO2: 98 % SpO2 98 % on room air at flow rate 0L/min Pau Hernandez MD 04/28/2018 16:52 [facility] arterPau MD - 02/2019 3:36 PM PST [facility] PROGRESS NOTE Patient: Tiny Campuzano : 1975: Age: 42 y.o. MedRec: [id number] Admission date: 04/23/2018 Hospital day # : 4 Physician author: Pau Hernandez MD Today: 04/27/2018 Assessment and Hospital Course Active Hospital Problems Diagnosis Anasarca Resolved Hospital Problems Diagnosis No resolved problems to display. 42 yo F with history of alcoholic cirrhosis, diet controlled diabetes, who presented with o ngoing weight gain and abdominal pain and nausea. Plan #Anasarca due to cirrhosis #Suspected decompensated systolic congestive heart failure Patient presented with volume overload likely related to both decompensated liver and heart failure. Echo 03/19/18 at [facility] showed EF 45% with apical WMA. Our ability to diurese has been limited by patient's dizziness. Transitioned to IV lasix 20 mg twice a day yesterday and was net negative 0.5L. Our goal is 0.5-1L given patient's pers istent orthostasis. May consider switching to Bumex tomorrow as this may have better effect on patient's abdominal wall edema. Renal function stable today. - continue IV lasix - wrap legs - monitor electrolytes - daily weights - fluid restriction #Dizziness Likely 2/2 diuresis. Head MRI 03/27/18 was unremarkable. #Alcoholic cirrhosis Patient has not used alcohol since Feb 2018. Continue lactulose. Hold spironolactone fo rno w. #Acute on chronic right upper quadrant pain No acute pathology per imaging or surgery evaluation. Thought to be related to anasarca, po ssibly with constipation contributing. CTM. #CAD Patient denies chest pain currently. Recent abnormal stress test, medical management was pu rsued. Can DC tele. - continue aspirin, statin, beta bertrand #Obesity BMI 47 Recent abnormal stress test Performed 03/22/18 at [facility] with the following results: Myocardial Perfusion Imaging Results: 1.Myocardial perfusion imaging is abnormal. 2.There is a small amount of ischemia in the mid anterior wall surrounding a large area o f scar. 3.There is a large area of infarction in the anterior and anteroseptal, and inferoapical sanderson. 4.There is a small area of artifact in the inferior wall. This is due to diaphragmatic at tenuation. 5.There is moderate left ventricular systolic dysfunction with an EF of 39%. 6. By imaging criteria, this is a intermediate risk test result due to the extent of left ventricular systolic dysfunction, myocardial scar with yuli-infarct ischemia FEN: fluid restricted, cardiac Ppx: heparin Disposition: pending clinical course Subjective CC: abdominal pain Patient endorses ongoing abdominal pain. Denies nausea. Denies fever/chills. Thinks her leg swelling is a little better. Was dizzy when getting out of the shower today. ROS 12 point ROS was performed and was negative except as noted above. Exam Gen: WDWN, nad HEENT: MMM, neck supple CV: regular rate and rhythm, no m/r/g Pulm: challenging exam given patient's body habitus but LCAB Abdominal: soft, mild abdominal wall edema noted, positive bowel tones Extremities: well perfused, edema extends from lower extremities to pannus Skin: warm, dry, no rashes Neuro: alert, CN intact, no focal deficits Psych: normal mood and affect Allergies: No Known Allergies Current Medications: Current Facility-Administered Medications Medication Dose Route Frequency Provider Last Rate Last Dose budesonide (PULMICORT) 0.5 mg/2 mL nebulizer solution 0.5 mg 0.5 mg Nebulization RT BI D Jj Lundberg MD 0.5 mg at 04/27/18 0727 And albuterol 5 mg/mL concentrated nebulizer solution 2.5 mg 2.5 mg Nebulization RT BID Zainab Lundberg MD 2.5 mg at 04/27/18 0728 And albuterol 2.5 mg/3 mL nebulizer solution 2.5 mg 2.5 mg Nebulization Q12H Jj Lundberg MD 2.5 mg at 04/27/18 1459 albuterol-ipratropium 2.5-0.5 mg/3 mL nebulizer solution 3 mL 3 mL Nebulization RT Q4H PRN Jj Lundberg MD 3 mL at 04/26/18 2102 aspirin EC tablet 81 mg 81 mg Oral Daily Jj Lundberg MD 81 mg at 04/27/18 0816 atorvaSTATin (LIPITOR) tablet 40 mg 40 mg Oral Nightly Jj Lundberg MD 40 mg at 04/16 04/03 204 chlorhexidine (HIBICLENS) 4 % liquid Topical Daily Jj Lundberg MD fluticasone (FLONASE) 50 mcg/nasal spray 2 spray 2 spray Each Nare Daily Arvind peck MD 2 spray at 04/26/18 0837 furosemide (LASIX) injection 20 mg 20 mg Intravenous BID (8 and 16) Jj Lundberg MD 20 mg at 04/27/18 0816 heparin 5,000 units/mL injection 5,000 Units 5,000 Units Subcutaneous 2 times per day Jj Lundberg MD 5,000 Units at 04/26/18 204 hydrOXYzine pamoate (VISTARIL) capsule 25 mg 25 mg Oral Q6H PRN Jj Lundberg MD 25 m g at 04/27/18 0659 ketorolac (TORADOL) injection 15 mg 15 mg Intravenous Q6H PRN Jj Lundberg MD 15 mg at 04/27/18 1357 lactulose liquid 20 g 20 g Oral Daily Jj Lundberg MD 20 g at 04/27/18 0816 magnesium oxide (MAG-OX) tablet 400 mg 400 mg Oral BID Jj Lundberg MD 400 mg at 03/03 0816 metoclopramide (REGLAN) 5 mg/mL injection 10 mg 10 mg Intravenous Q6H PRN Jj Lundberg MD nitroglycerin (NITRO-BID) 2% ointment 0.5 inch 0.5 inch Topical Q6H PRN Donald Rivera ondansetron (ZOFRAN) injection 4 mg 4 mg Intravenous Q6H PRN Jj Lundberg MD 4 mg at 04/24/18 0625 pantoprazole (PROTONIX) DR tablet 40 mg 40 mg Oral BID AC Jj Lundberg MD 40 mg at 0 04/27/18 0659 Current Infusions: Objective Data Point of care glucose No results for input(s): POCGLU in the last 168 hours. Labs last 24 hours Recent Results (from the past 24 hour(s)) CBC no Differential Collection Time: 04/27/18 6:07 Result Value Ref Range WBC 8.5 4.0 - 11.0 K/uL RBC 3.29 (L) 3.70 - 5.20 M/uL Hemoglobin 9.0 (L) 11.5 - 16.0 g/dL Hematocrit 28.2 (L) 34.0 - 47.0 % MCV 85.7 83.0 - 101.0 fL MCH 27.4 (L) 28.0 - 35.0 pg MCHC 31.9 (L) 32.0 - 36.0 g/dL RDW-CV 21.1 (H) <15.0 % RDW-SD 66.4 (H) 35.1 - 46.3 fL Platelet Count 104 (L) 140 - 440 K/uL MPV 9.3 6.5 - 12.4 fL % nRBC 0 0 - 2 per 100 WBC's Absolute nRBC 0.00 0.00 - 0.01 K/uL Basic Metabolic Panel Collection Time: 04/27/18 6:07 Result Value Ref Range Na 138 136 - 149 mmol/L K 4.3 3.5 - 5.1 mmol/L Cl 105 98 - 109 mmol/L CO2 23 (L) 24 - 31 mmol/L Anion Gap 10 3 - 16 mmol/L Glucose 84 70 - 109 mg/dL BUN 8 7 - 18 mg/dL Creatinine 1.11 0.60 - 1.30 mg/dL eGFR if not 54 (L) >=60 mL/min/1.73m2 Ca 8.3 8.3 - 10.5 mg/dL BUN/Creatinine Ratio 7.2 Magnesium Collection Time: 04/27/18 6:07 Result Value Ref Range Magnesium 2.1 1.8 - 2.5 mg/dL Micro results (more choices using dot micro) Microbiology Results (72 hrs) No results found for the last 72 hours. Radiology results (more choices using dot risresults) No results found. Vitals Ranges: Temp: [36.5 C (97.7 F)-37.5 C (99.5 F)] 36.5 C (97.7 F) Pulse: [61-82] 79 Resp: [18-22] 20 BP: (93-112)/(47-55) 106/55 Vitals: Temp: 36.5 C (97.7 F) BP: 106/55 Pulse: 79 Resp: 20 SpO2: 99 % SpO2 99 % on room air at flow rate 0L/min Pau Hernandez MD 04/27/2018 15:36 [facility] Ana Dumont, Ph armD - 04/27/2018 2:47 PM PST PHARMACY SERVICES: ADMISSION MEDICATION REVIEW Tiny Campuzano is a 42 y.o. female admitted on 04/23/2018. Patient is a reliable historian. Location of Patient when reviewed: ED X Medical Floor Patient s prior to admit medication and over the counter (OTC) medications/herbal supplem ents list obtained from: X Verbal interview X Patient able to recall SOME Name, strength, and directions X Patient/family member provided a complete current medication list or bottles X Pharmacy list names: [facility] X OR [facility] HEARINGS REPORTER (Prescription Monitoring Program) X [employer] insurance reported information X Outside Information Vaccines up to date? Yes No Unsure Influenza x Pneumococcal x Tdap x Shingles x Noted medications discrepancies or medication-related issues: Dosage change: Medication: Prior to Admission Sig: Correct sig: Patient taking differently as: Magnesium oxide 400 mg tab 1 tab by mouth daily 1 tab by mouth twice daily 1 tab by mouth d aily dose was recently increased. Patient still following directions on old bottle Lactulose 10 g/15 mL maty 30 mL by mouth twice daily 30 mL by mouth four times daily 30 mL b y mouth twice daily dose was recently increased. Patient still following directions on old bottle Metoclopramide 10 mg tab 1 tab by mouth four times daily 1 tab by mouth four times daily as needed for nausea or vomiting Medication added: Medication: Prior to Admission Sig: Patient taking differently as: Aspirin 81 mg chew tab 1 tab by mouth daily 1 tab by mouth daily as needed for headache Patient is unsure why the doctor has prescribed this daily Ondansetron 4 mg tab 1 tab by mouth every 6 hours as needed for nausea or vomiting Potassium chloride 20 meq tab 1 tab by mouth daily Spironolactone 25 mg tab 2 tabs by mouth daily Lidocaine 5% patch 1 patch topically daily for 12 hours on and 12 hours off 1 patch topical ly daily as needed for pain Patient states patches are causing burning at application site. Oxycodone-acetaminophen 7.5-325 mg tab 1 tab by mouth every 6 hours as needed for pain Torsemide 10 mg tab 1 tab by mouth daily Not taking Patient unsure why she is not taking Albuterol 2.5 mg/3 mL maty 3 mL by nebulization every 6 hours as needed for shortness of jason ath Removed therapy: Medication: Prior to Admission Sig: Reason for Removal: Acetaminophen 325 mg tab Take by mouth Therapy complete Aspirin 81 mg EC tab 1 tab by mouth daily Form adjustment Ondansetron 4 mg ODT tab 1 tab by mouth every 8 hours as needed for nausea Form/freq adjust ment Potasium chloride 20 meq pack 20 meq by mouth daily Form adjustment Spironolactone 50 mg tab 50 mg by mouth daily Form adjustment Recreational Substances, Tobacco & Alcohol use : Drug: Route Frequency: Last Used: History of Alcohol use Daily "until I blacked out" Quit drinking in December 2017 History of Marijuana use Smoke Daily for appetite stimulant Quit in December 2017 Other: Patient was given initial dose of the following medications in the ER on 04/16/18. [facility], patient's pharmacy was closed for the weekend so she didn't start them until 04/19/18. Ciprofloxacin 500 mg tab- 1 tab by mouth twice daily Metronidazole 500 mg tab- 1 tab by mouth three times daily Patient is concerned about how many medications she is taking. She is wondering if she r harrisonlly needs to take all of these. 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 Kevin albuterol 2.5 mg/3 mL nebulizer solution Take 2.5 mg by nebulization every 6 hours as need ed for Shortness of Breath. Taking Historical ProviderMD albuterol 90 mcg/puff inhaler Inhale 1-2 puffs into the lungs every 3 hours as needed for Shortness of Breath. Taking Historical ProviderMD ascorbic acid (VITAMIN C) 500 mg tablet Take 500 mg by mouth Daily. With Iron Taking Hist orical ProviderMD aspirin 81 mg chewable tablet Take 81 mg by mouth Daily. Taking Differently Historical Pr MD braulio atorvaSTATin (LIPITOR) 40 mg tablet Take 40 mg by mouth nightly. Taking Historical Provid MD cisco ciprofloxacin (CIPRO) 500 mg tablet Take 500 mg by mouth 2 times daily. Taking Historical ProviderMD ferrous sulfate 325 mg tablet Take 325 mg by mouth daily (with breakfast). With Vitamin C Taking Historical ProviderMD fluticasone (FLONASE) 50 mcg/nasal spray 2 sprays by Nasal route Daily. Taking Historical ProviderMD furosemide (LASIX) 40 mg tablet Take 40 mg by mouth Daily. Taking Historical ProviderMD hydrOXYzine pamoate (VISTARIL) 25 mg capsule Take 25 mg by mouth every 6 hours as needed f or Anxiety. Taking Differently Eevlyn Brown MD lactulose 10 g/15 mL solution Take 20 g by mouth 4 times daily. Taking Differently Omar ical ProviderMD lidocaine (LIDODERM) 5% patch Place 1 patch onto the skin Daily. Apply for 12 hours, then remove for 12 hours. Taking Nik Historical ProviderMD magnesium oxide (MAG-OX) 400 mg tablet Take 400 mg by mouth 2 times daily. Taking Alverto alvarezy Evelyn ProviderMD metoclopramide (REGLAN) 10 mg tablet Take 10 mg by mouth 4 times daily as needed for Nause a or Vomiting. Taking Historical ProviderMD metoprolol succinate (TOPROL-XL) 25 mg 24 hr tablet Take 25 mg by mouth Daily. Taking His torical Provider, metroNIDAZOLE (FLAGYL) 500 MG tablet Take 500 mg by mouth 3 times daily. Taking Omarica l ProviderMD mometasone-formoterol (DULERA) 200-5 mcg/puff inhaler Inhale 2 puffs into the lungs 2 time s daily. Taking Historical ProviderMD naltrexone (REVIA) 50 mg tablet Take 50 mg by mouth Daily. Taking Historical ProviderMD ondansetron (ZOFRAN) 4 mg tablet Take 4 mg by mouth every 6 hours as needed for Nausea or Vomiting. Taking Historical ProviderMD oxyCODONE-acetaminophen (PERCOCET) 7.5-325 mg per tablet Take 1 tablet by mouth EVERY 4 TO 6 HOURS NEEDED for Pain. Taking Keaton Chavis pantoprazole (PROTONIX) 40 mg tablet Take 40 mg by mouth every morning (before breakfast). Not Taking Historical ProviderMD potassium chloride (KLOR-CON M20) 20 mEq ER tablet Take 20 mEq by mouth Daily. Taking His torical Provider, spironolactone (ALDACTONE) 25 mg tablet Take 50 mg by mouth Daily. Taking Historical Hawk wilson MD Medication review performed and electronically signed by Maria A Mcnulty, Helmet [employer] Sweatband Puncher 02/2019 13:04 Reviewed by Ana Lucio PharmD 04/27/2018 14:39 Jj Akhtar MD - 04/26/2018 11:09 AM PST [facility] PROGRESS NOTE Patient: Tiny Campuzano : 1975: Age: 42 y.o. MedRec: [id number] Admission date: 04/23/2018 Hospital day # : 3 Physician author: Jj Lundberg MD Today: 04/26/2018 Reason for hospitalization Tiny Campuzano is a 42 y.o. female with a history of alcoholic cirrhosis, diet contro lled DM, presented on 04/23/2018, seen by farhat pathak yesterday, BUT despite change in diureti cs, there is ongoing 30lb weight gain, and today she was told by farhat pathak to come to ER f or the fluid overload/pain. Associated nausea. She fainted at home a few times. She is crying throughout exam, pain due to anasarca abdomen to feet. She indicates diuretic compliance/etoh cessation and that Right sided ABDOMINAL chronic intermittent pain is worse w/ water weight gain. Chest pain on HD2 w/ negative EGK/trop. Echo 02/2018 and stress study 03/2018 at [facility]. ED course: NO O2 need, good UOP after lasix in ER -Studies: BNP 340/ Ammonia 44 CXR pulm edema, CT a/p without enough ascities for paracentes is -Treatment: lasix 40 / dialudid 1 mg x 2 Relevant Chart Review 03/15/2018- 04/01/2018 TRANSFER FROM [facility] TO [facility], Hospitalized [facility] for cir rhosis r/o cholecystitis work up, deemed to not have acute cholecystitis, transferred from urgery service to internal medicine service for orthostatic hypotension thought to be due to overdiuresis. 04/2015 [facility] EGD Upper endoscopy was remarkable for a weakened lower esophageal sphincter a t 40 cm from the alveolar ridge marked gastroparesis with antral gastritis marked degree H. pylori biopsy was obtained there was duodenal erosions within the duodenal bulb. Biopsies were obtained of the duodenum mucosa for celiac sprue although the mucosa appeared to be nor mal the patient may benefit from proton pump inhibitor therapy along with metoclopramide hel p with her gastroparesis 03/2018 nuc med Component Name Value Ref Range BASELINE HEART RATE 92 bpm BASELINE BLOOD PRESSURE 91/49 mmHg PEAK HEART RATE 97 PEAK BLOOD PRESSURE 103/53 mmHG Target HR 151 Percent HR 54 LVEF-SPECT NUCLEAR STRESS/VIABILITY 37 % NM stress end diastolic volume 218 NM stress end systolic volume [address] Elevation (mm) 0.0 mm Result Narrative Myocardial Perfusion Imaging Results: 1.Myocardial perfusion imaging is abnormal. 2.There is a small amount of ischemia in the mid anterior wall surrounding a large area of scar. 3.There is a large area of infarction in the anterior and anteroseptal, and inferoapical sanderson. 4.There is a small area of artifact in the inferior wall. This is due to diaphragmatic attenuation. 5.There is moderate left ventricular systolic dysfunction with an EF of 39%. 6.By imaging criteria, this is a intermediate risk test result due to the extent of left ventricular systolic dysfunction, myocardial scar with yuli-infarct ischemia 03/19/2018 echo LVEF-TTE TRANSTHORACIC ECHO 45 % BASELINE BLOOD PRESSURE 113/74 mmHg Patient Weight (lbs) 317lb Patient Height 69in LVIDd 7 cm FS 16 % Ascending aorta 3.1 cm AV mean gradient 10 mmHg LVOT diameter 2.1 cm AVVTI 43.5 cm AV Mean Velocity 146 cm/s LA Area 33.5 cm2 Teicholz Ef Calc 32.19 % Heart Rate 87 Aortic Root Diameter 3.2 cm IVS Diastolic Thickness MM 1.1 cm LVPW Diastolic Thickness MM 1 cm LV Systolic Diameter MM 5.9 cm Result Narrative Probably severe left atrial enlargement Severe left ventricular enlargement with mild systolic dysfunction and apical wall motion abnormality Normal right ventricular size and systolic function No obvious valvular pathology No previous echocardiogram available for comparison Assessment and Plan Active Hospital Problems Diagnosis Anasarca Resolved Hospital Problems Diagnosis No resolved problems to display. Hospital Day: 4 Chronic anemia w/ Hg drop 2/, stable Known cytopenias attributed to cirrhosis Monitor Anasarca due to cirrhosis, improving, limited by BP/dizziness/rising Cr BNP/ammonia improved from 02/2018 hospitalization, monitor for overdiuresis Diuresis s/p lasix iv 120 yesterday, now 30 BID dialudid not helpful, ketorolac, prn home vistaril, dc ativan for anxiety compoent, no tyle nol (liver disease) dc trial gabapentin Hypokalemia/hypomag from diuresis K 40mEq x 5 PO/K 20mEq IV 04/24 Mag oxide 800mg/Mag sulfate 2g 04/24 Mag oxide 800mg qd No daily K ordered yet Etoh-Cirrhosis LFTs stable etoh cessation since 02/2018, held naltrexone for now decrease lactulose while diuresing Hold spironolactone/K while diuresing Acute on chronic RUQ pain due to anasarca/cirrhosis No acute cholecystitis or gallbladder pathology per CT/surgery evaluation 02/2018 CAD / sCHF Chest pain on HD2, resolved w/ dilaudid EF 45% presumed CAD myocardiac perfusion scan in [facility] Asa/statin/metoprolol. hold lisinopril while diuresis Prn nitro paste Gastroparesis/PUD/h pylori hx Increased PPI zofran reglan SHARRON / asthma Intolerant of CPAP Inhaled steroid/albuterol DM2, diet controlled SSI Morbid obesity Monitor pannus overhanging touching toliet Prior pannus abscesses chlohexidine wipes DIET fluid restrict 2L DVT prophylaxis - heparin - hold for plt < 120k Disposition - inpatient Plan discussed with patient. Pending PT for HH vs outpt recs Subjective by date 04/24 Chronic numbness/tingling all digits, SOB on exertion, + BM, ambulating to the bathroo m voiding declined umanzor due to prior UTIs, tolerated diet, no n/v, 12/23 intermittent, chr onic sharp pain to her R lower abdomen. Chest pain this am, neg trop/ekg, better w/ dilaudid . Abdomen and lower extremities are less taut, feels better, lightheadness today. No SOB/ast hma flare, pain improved w/ ketoralac 04/25 + BM, no nitro use, SBP <115 but not dizzy, Cr 1.2, dilaudid for chronic RUQ intermitt ent pain and diffuse anasarca pain 04/26 pain improved w/ vistaril/ativan, Cr 1.02, + BM, SBP >110s, ambulates to bathroom w/ w alker, pannus anasarca weeps, worried About prior abscesses on pannus Treatment log 04/24 Replete electrolytes, decrease lasix, Increase ppi bid/prn nitro, ketoralac 04/25 decrease lactulose increase mag, compression stocking ordered, lasix 20 BID, gabapenti n x1, prn chlohexidine 04/26 resume ketoralac prn, increase mag, dc ativan, schedule chlorhexidine, schedule patrick le gs wrap, ambulate hallways as requested, increase lasix 30BID Exam UOP 2.1L--> 1.2L-->2.4--> [id number] On room air tele General NAD A and O head, discomfrt resolved after voiding Cardiac S1 S2 RRR systolic murmur Lung CTAB Abdominal soft nt nd + BS, less taut than yesterday Neuro no dysarthria Extremities severe pimentel edema, improved, less taut, dependent edema of pannus ongoing Vitals Ranges: Temp: [36.3 C (97.3 F)-37 C (98.6 F)] 37 C (98.6 F) Pulse: [74-87] 82 Resp: [18-22] 20 BP: (107-117)/(54-57) 117/57 Vitals: Temp: 37 C (98.6 F) BP: 117/57 Pulse: 82 Resp: 20 SpO2: 100 % SpO2 100 % on room air at flow rate L/min Objective Data Point of care glucose No results for input(s): POCGLU in the last 168 hours. Labs last 24 hours Recent Results (from the past 24 hour(s)) CBC no Differential Collection Time: 04/26/18 6:38 Result Value Ref Range WBC 8.4 4.0 - 11.0 K/uL RBC 3.22 (L) 3.70 - 5.20 M/uL Hemoglobin 8.7 (L) 11.5 - 16.0 g/dL Hematocrit 27.0 (L) 34.0 - 47.0 % MCV 83.9 83.0 - 101.0 fL MCH 27.0 (L) 28.0 - 35.0 pg MCHC 32.2 32.0 - 36.0 g/dL RDW-CV 20.8 (H) <15.0 % RDW-SD 63.9 (H) 35.1 - 46.3 fL Platelet Count 122 (L) 140 - 440 K/uL MPV 9.6 6.5 - 12.4 fL Immature Platelet Fraction 2.0 0.9 - 11.2 % % nRBC 0 0 - 2 per 100 WBC's Absolute nRBC 0.00 0.00 - 0.01 K/uL Basic Metabolic Panel Collection Time: 04/26/18 6:38 Result Value Ref Range Na 137 136 - 149 mmol/L K 4.6 3.5 - 5.1 mmol/L Cl 107 98 - 109 mmol/L CO2 22 (L) 24 - 31 mmol/L Anion Gap 8 3 - 16 mmol/L Glucose 94 70 - 109 mg/dL BUN 7 7 - 18 mg/dL Creatinine 1.02 0.60 - 1.30 mg/dL eGFR if not 59 (L) >=60 mL/min/1.73m2 Ca 8.2 (L) 8.3 - 10.5 mg/dL BUN/Creatinine Ratio 6.9 Magnesium Collection Time: 04/26/18 6:38 Result Value Ref Range Magnesium 1.7 (L) 1.8 - 2.5 mg/dL Micro results Microbiology Results (72 hrs) No results found for the last 72 hours. Radiology results No results found. Current Medications: Current Facility-Administered Medications Medication Dose Route Frequency Provider Last Rate Last Dose budesonide (PULMICORT) 0.5 mg/2 mL nebulizer solution 0.5 mg 0.5 mg Nebulization RT BI D Jj Lundberg MD 0.5 mg at 04/26/18 0849 And albuterol 5 mg/mL concentrated nebulizer solution 2.5 mg 2.5 mg Nebulization RT BID Zainab Lundberg MD 2.5 mg at 04/26/18 0849 And albuterol 2.5 mg/3 mL nebulizer solution 2.5 mg 2.5 mg Nebulization Q12H Jj Lundberg MD 2.5 mg at 04/25/18 1427 albuterol-ipratropium 2.5-0.5 mg/3 mL nebulizer solution 3 mL 3 mL Nebulization RT Q4H PRN Jj Lundberg MD aspirin EC tablet 81 mg 81 mg Oral Daily Jj Lundberg MD 81 mg at 04/26/18 0813 atorvaSTATin (LIPITOR) tablet 40 mg 40 mg Oral Nightly Jj Lundberg MD 40 mg at 04/16 chlorhexidine (HIBICLENS) 4 % liquid Topical Daily PRN Jj Lundberg MD fluticasone (FLONASE) 50 mcg/nasal spray 2 spray 2 spray Each Nare Daily Arvind peck MD 2 spray at 04/26/18 0837 furosemide (LASIX) injection 20 mg 20 mg Intravenous BID (8 and 16) Donald Avery 20 mg at 04/26/18 0935 gabapentin (NEURONTIN) capsule 100 mg 100 mg Oral Nightly PRN Jj Lundberg MD 100 mg at 04/25/182022 heparin 5,000 units/mL injection 5,000 Units 5,000 Units Subcutaneous 2 times per day Jj Lundberg MD 5,000 Units at 04/26/18 0815 hydrOXYzine pamoate (VISTARIL) capsule 25 mg 25 mg Oral Q6H PRN Jj Lundberg MD 25 m g at 04/26/18 0621 lactulose liquid 20 g 20 g Oral Daily Jj Lundberg MD 20 g at 04/26/18 0815 LORazepam (ATIVAN) injection 0.5 mg 0.5 mg Intravenous Nightly PRN Jj Lundberg MD 0 .5 mg at 04/26/18 0347 magnesium oxide (MAG-OX) tablet 400 mg 400 mg Oral BID Jj Lundberg MD 400 mg at 02/01 0813 metoclopramide (REGLAN) 5 mg/mL injection 10 mg 10 mg Intravenous Q6H PRN Jj Lundberg MD nitroglycerin (NITRO-BID) 2% ointment 0.5 inch 0.5 inch Topical Q6H PRN Donald Rivera ondansetron (ZOFRAN) injection 4 mg 4 mg Intravenous Q6H PRN Jj Lundberg MD 4 mg at 04/24/18 06 pantoprazole (PROTONIX) DR tablet 40 mg 40 mg Oral BID AC Jj Lundberg MD 40 mg at 0 04/26/18 06 Current Infusions: Jj Lundberg MD 04/26/2018 11:09 [facility] im, MD Jj - 04/25 12:48 PM PST [facility] PROGRESS NOTE Patient: Tiny Campuzano : 1975: Age: 42 y.o. MedRec: [id number] Admission date: 04/23/2018 Hospital day # : 2 Physician author: Jj Lundberg MD Today: 04/25/2018 Reason for hospitalization Tiny Campuzano is a 42 y.o. female with a history of alcoholic cirrhosis, diet contro lled DM, presented on 04/23/2018, seen by farhat pathak yesterday, BUT despite change in diureti cs, there is ongoing 30lb weight gain, and today she was told by farhat pathak to come to ER f or the fluid overload/pain. Associated nausea. She fainted at home a few times. She is crying throughout exam, pain due to anasarca abdomen to feet. She indicates diuretic compliance/etoh cessation and that Right sided ABDOMINAL chronic intermittent pain is worse w/ water weight gain. Chest pain on HD2 w/ negative EGK/trop. Echo 02/2018 and stress study 03/2018 at [facility]. ED course: NO O2 need, good UOP after lasix in ER -Studies: BNP 340/ Ammonia 44 CXR pulm edema, CT a/p without enough ascities for paracentes is -Treatment: lasix 40 / dialudid 1 mg x 2 Relevant Chart Review 03/15/2018- 04/01/2018 TRANSFER FROM [facility] TO [facility], Hospitalized [facility] for cir rhosis r/o cholecystitis work up, deemed to not have acute cholecystitis, transferred from s urgery service to internal medicine service for orthostatic hypotension thought to be due to overdiuresis. 04/2015 [facility] EGD Upper endoscopy was remarkable for a weakened lower esophageal sphincter a t 40 cm from the alveolar ridge marked gastroparesis with antral gastritis marked degree H. pylori biopsy was obtained there was duodenal erosions within the duodenal bulb. Biopsies were obtained of the duodenum mucosa for celiac sprue although the mucosa appeared to be nor mal the patient may benefit from proton pump inhibitor therapy along with metoclopramide hel p with her gastroparesis 03/2018 nuc med Component Name Value Ref Range BASELINE HEART RATE 92 bpm BASELINE BLOOD PRESSURE 91/49 mmHg PEAK HEART RATE 97 PEAK BLOOD PRESSURE 103/53 mmHG Target HR 151 Percent HR 54 LVEF-SPECT NUCLEAR STRESS/VIABILITY 37 % NM stress end diastolic volume 218 NM stress end systolic volume [address] Elevation (mm) 0.0 mm Result Narrative Myocardial Perfusion Imaging Results: 1.Myocardial perfusion imaging is abnormal. 2.There is a small amount of ischemia in the mid anterior wall surrounding a large area of scar. 3.There is a large area of infarction in the anterior and anteroseptal, and inferoapical sanderson. 4.There is a small area of artifact in the inferior wall. This is due to diaphragmatic attenuation. 5.There is moderate left ventricular systolic dysfunction with an EF of 39%. 6.By imaging criteria, this is a intermediate risk test result due to the extent of left ventricular systolic dysfunction, myocardial scar with yuli-infarct ischemia 03/19/2018 echo LVEF-TTE TRANSTHORACIC ECHO 45 % BASELINE BLOOD PRESSURE 113/74 mmHg Patient Weight (lbs) 317lb Patient Height 69in LVIDd 7 cm FS 16 % Ascending aorta 3.1 cm AV mean gradient 10 mmHg LVOT diameter 2.1 cm AVVTI 43.5 cm AV Mean Velocity 146 cm/s LA Area 33.5 cm2 Teicholz Ef Calc 32.19 % Heart Rate 87 Aortic Root Diameter 3.2 cm IVS Diastolic Thickness MM 1.1 cm LVPW Diastolic Thickness MM 1 cm LV Systolic Diameter MM 5.9 cm Result Narrative Probably severe left atrial enlargement Severe left ventricular enlargement with mild systolic dysfunction and apical wall motion abnormality Normal right ventricular size and systolic function No obvious valvular pathology No previous echocardiogram available for comparison Assessment and Plan Active Hospital Problems Diagnosis Anasarca Resolved Hospital Problems Diagnosis No resolved problems to display. Hospital Day: 3 Chronic anemia w/ Hg drop 04/24, stable Known cytopenias attributed to cirrhosis Monitor Anasarca due to cirrhosis, improving, limited by BP/dizziness/rising Cr BNP/ammonia improved from 02/2018 hospitalization, monitor for overdiuresis Diuresis s/p lasix iv 120 yesterday, now 20 BID dialudid not helpful, ketorolac helpful (hold w/ rising Cr), continue home vistaril, trial ativan for anxiety compoent, no tylenol (liver disease) trial gabapentin Hypokalemia/hypomag from diuresis K 40mEq x 5 PO/K 20mEq IV 04/24 Mag oxide 800mg/Mag sulfate 2g 04/24 Mag oxide 400mg BID No daily K ordered yet Etoh-Cirrhosis LFTs stable etoh cessation since 02/2018, held naltrexone for now decrease lactulose while diuresing Hold spironolactone/K while diuresing Acute on chronic RUQ pain due to anasarca/cirrhosis No acute cholecystitis or gallbladder pathology per CT/surgery evaluation 02/2018 CAD / sCHF Chest pain on HD2, resolved w/ dilaudid EF 45% presumed CAD myocardiac perfusion scan in [facility] Asa/statin/metoprolol. hold lisinopril while diuresis Trial nitro paste prn - monitor bp Gastroparesis/PUD/h pylori hx Increased PPI zofran reglan SHARRON / asthma Intolerant of CPAP Inhaled steroid/albuterol DM2, diet controlled SSI Morbid obesity Monitor pannus overhanging touching toliet Prior pannus abscesses chlohexidine wipes DIET fluid restrict 2L DVT prophylaxis - heparin - hold for plt < 120k Disposition - inpatient Plan discussed with patient. Subjective by date 04/24 Chronic numbness/tingling all digits, SOB on exertion, + BM, ambulating to the batho m voiding declined umanzor due to prior UTIs, tolerated diet, no n/v, 12/23 intermittent, chr onic sharp pain to her R lower abdomen. Chest pain this am, neg trop/ekg, better w/ dilaudid . Abdomen and lower extremities are less taut, feels better, lightheadness today. No SOB/ast hma flare 04/25 + BM, no nitro use, SBP <115 but not dizzy, Cr 1.2, dilaudid for chronic RUQ intermitt ent pain and diffuse anasarca pain Treatment log 04/24 Replete electrolytes, decrease lasix, Increase ppi bid/prn nitro 04/25 increase mag, compression stocking ordered, lasix 20 BID Exam UOP 2.1L--> 1.2L-->1.1 today On room air tele General NAD A and O head covered crying, resolved after dilaudid Cardiac S1 S2 RRR systolic murmur Lung CTAB Abdominal soft nt nd + BS, less taut than yesterday Neuro no dysarthria Extremities severe pimentel edema, improved, less taut, dependent edema of pannus Vitals Ranges: Temp: [35.8 C (96.4 F)-37.2 C (98.9 F)] 35.8 C (96.4 F) Pulse: [76-85] 85 Resp: [16-20] 16 BP: (103-115)/(49-62) 111/53 Vitals: Temp: 35.8 C (96.4 F) BP: 111/53 Pulse: 85 Resp: 16 SpO2: 100 % SpO2 100 % on room air at flow rate L/min Objective Data Point of care glucose No results for input(s): POCGLU in the last 168 hours. Labs last 24 hours Recent Results (from the past 24 hour(s)) Troponin I Collection Time: 04/24/18 18:03 Result Value Ref Range Troponin I <0.01 <0.06 ng/mL Basic Metabolic Panel Collection Time: 04/24/18 20:11 Result Value Ref Range Na 138 136 - 149 mmol/L K 3.9 3.5 - 5.1 mmol/L Cl 105 98 - 109 mmol/L CO2 22 (L) 24 - 31 mmol/L Anion Gap 11 3 - 16 mmol/L Glucose 90 70 - 109 mg/dL BUN 6 (L) 7 - 18 mg/dL Creatinine 1.14 0.60 - 1.30 mg/dL eGFR if not 52 (L) >=60 mL/min/1.73m2 Ca 7.9 (L) 8.3 - 10.5 mg/dL BUN/Creatinine Ratio 5.3 Magnesium Collection Time: 04/24/18 20:11 Result Value Ref Range Magnesium 2.0 1.8 - 2.5 mg/dL CBC no Differential Collection Time: 04/25/18 5:56 Result Value Ref Range WBC 6.9 4.0 - 11.0 K/uL RBC 2.96 (L) 3.70 - 5.20 M/uL Hemoglobin 8.1 (L) 11.5 - 16.0 g/dL Hematocrit 24.9 (L) 34.0 - 47.0 % MCV 84.1 83.0 - 101.0 fL MCH 27.4 (L) 28.0 - 35.0 pg MCHC 32.5 32.0 - 36.0 g/dL RDW-CV 21.2 (H) <15.0 % RDW-SD 66.4 (H) 35.1 - 46.3 fL Platelet Count 98 (L) 140 - 440 K/uL MPV 9.3 6.5 - 12.4 fL % nRBC 0 0 - 2 per 100 WBC's Absolute nRBC 0.00 0.00 - 0.01 K/uL Basic Metabolic Panel Collection Time: 04/25/18 5:56 Result Value Ref Range Na 136 136 - 149 mmol/L K 4.3 3.5 - 5.1 mmol/L Cl 110 (H) 98 - 109 mmol/L CO2 23 (L) 24 - 31 mmol/L Anion Gap 3 3 - 16 mmol/L Glucose 95 70 - 109 mg/dL BUN 6 (L) 7 - 18 mg/dL Creatinine 1.20 0.60 - 1.30 mg/dL eGFR if not 49 (L) >=60 mL/min/1.73m2 Ca 8.0 (L) 8.3 - 10.5 mg/dL BUN/Creatinine Ratio 5.0 Magnesium Collection Time: 04/25/18 5:56 Result Value Ref Range Magnesium 1.8 1.8 - 2.5 mg/dL Hepatic Function Panel Collection Time: 04/25/18 5:56 Result Value Ref Range Bilirubin Total 1.2 0.1 - 1.5 mg/dL Total Protein 5.1 (L) 6.0 - 7.8 g/dL Albumin 2.1 (L) 3.2 - 5.0 g/dL AST 28 10 - 42 U/L ALT 13 6 - 45 U/L Alkaline Phosphatase 121 (H) 40 - 110 U/L Globulin 3.0 2.1 - 3.8 g/dL Albumin/Globulin Ratio 0.7 (L) 0.8 - 2.0 Bilirubin, Direct 0.40 (H) 0.00 - 0.20 mg/dl Protime INR Collection Time: 04/25/18 5:56 Result Value Ref Range Protime 18.2 (H) 11.3 - 13.9 seconds INR 1.5 (H) 0.9 - 1.1 Micro results Microbiology Results (72 hrs) No results found for the last [address] Abdomen Pelvis Wo Contrast Result Date: 04/23/2018 CT ABDOMEN PELVIS WO CONTRAST 04/23/2018 1:01 PM HISTORY: ABDOMINAL PAIN. COMPARISON: None. P ROTOCOL: Axial images of the abdomen and pelvis were obtained. Coronal and sagittal reformat ions were acquired. FINDINGS: LUNG BASE: Mild atelectasis and/or minimal patchy groundglass consolidation in the right lung base. Heart is enlarged. 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 HEPATOBILIARY: Diffusely nodula r contour of the liver compatible with cirrhosis. No contour deforming mass identified in th is noncontrast CT. A few gallstones are identified within the neck/proximal cystic duct of t he gallbladder. No evidence of biliary ductal dilatation. PANCREASE: Normal parenchyma. No e vidence of pancreatic ductal dilation. SPLEEN: Normal parenchyma. No evidence of mass or spl enomegaly. ADRENAL GLANDS: No evidence of nodule, mass or suspicious thickening. KIDNEYS: Bi lateral kidneys are without evidence of suspicious mass, calculus, or hydronephrosis. BLADDE R: Unremarkable. REPRODUCTIVE: Uterus and adnexal structures are without evidence of gross a bnormality. VASCULATURE: Pronounced perigastric, perisplenic, and developing periesophageal varices are present. LYMPH NODES: Borderline prominence of bilateral superficial lymph nodes . No other convincingly suspicious lymphadenopathy identified. This is somewhat difficult to evaluate without the use of intravenous contrast. BOWEL: The stomach is normal. Imaged smal l bowel and colon demonstrate no acute findings. No evidence of dilatation to suggest obstru ction or abnormal bowel wall thickening. PERITONEUM: Trace free fluid in the dependent pelvi s SOFT TISSUES: Pronounced truncal subcutaneous fat stranding/anasarca. Periumbilical varice s are seen with prominence of the inferior epigastric vasculature. BONES: There are no acute osseous abnormalities. Nonspecific sclerotic focus in the right femoral neck likely represe nts a bone island but other etiologies not entirely excluded. Multilevel degenerative disc d isease and facet spondylosis of the thoracolumbar spine. DISH of the lower thoracic spine. I MPRESSION - 1. Cirrhosis with sequelae of portal hypertension including extensive. Splenic a nd perigastric portosystemic collaterals. Mild early ascites. 2. Cardiomegaly with what suzanne ears to be a partially calcified true aneurysm versus pseudoaneurysm of the left ventricle. Recommend cardiology consultation if clinically indicated. 3. Cholelithiasis with a few smal l calcified gallstone seen within the neck the gallbladder or proximal cystic duct. 4. Diffu se fat stranding throughout the abdominal/truncal soft tissues most compatible with edema/an asarca versus cellulitis. Dictated and Signed by: Jamie Yeung MD Electronically signed: 04/23/2018 1:42 PM Xr Chest Ap Portable Result Date: 04/23/2018 CLINICAL INFORMATION: ABDOMINAL PAIN. COMPARISON: None available. FINDINGS: Portable fronta l chest radiograph. Lordotic positioning noted. Lungs: No focal airspace disease, pleural e ffusion, or pneumothorax. Mild prominence of the central pulmonary vasculature and intersti tial lung markings. Nonspecific mild right lateral pleural thickening. Heart/mediastinum: Mi ld cardiomegaly. No tracheal deviation. Bones: No acute osseous abnormality appreciated. Mi ld dextrocurvature of the spine. IMPRESSION - Findings are suggestive of mild cardiogenic pu lmonary edema. Nonspecific mild right lateral pleural thickening. Dictated and Signed by: Ryley Armijo MD Electronically signed: 04/23/2018 5:47 PM Current Medications: Current Facility-Administered Medications Medication Dose Route Frequency Provider Last Rate Last Dose budesonide (PULMICORT) 0.5 mg/2 mL nebulizer solution 0.5 mg 0.5 mg Nebulization RT BI D Jj Lundberg MD 0.5 mg at 04/25/18 0738 And albuterol 5 mg/mL concentrated nebulizer solution 2.5 mg 2.5 mg Nebulization RT BID Zainab Lundberg MD 2.5 mg at 04/25/18 0738 And albuterol 2.5 mg/3 mL nebulizer solution 2.5 mg 2.5 mg Nebulization Q12H Jj Lundberg MD 2.5 mg at 04/25/18 0359 albuterol-ipratropium 2.5-0.5 mg/3 mL nebulizer solution 3 mL 3 mL Nebulization RT Q4H PRN Jj Lundberg MD aspirin EC tablet 81 mg 81 mg Oral Daily Jj Lundberg MD 81 mg at 04/25/18 0956 atorvaSTATin (LIPITOR) tablet 40 mg 40 mg Oral Nightly Jj Lundberg MD 40 mg at 0212/02 [START ON 04/26/2018] furosemide (LASIX) injection 20 mg 20 mg Intravenous Daily Tammy Lundberg MD heparin 5,000 units/mL injection 5,000 Units 5,000 Units Subcutaneous 2 times per day Jj Lundberg MD 5,000 Units at 04/25/18 0956 HYDROmorphone (DILAUDID) injection 0.4-0.8 mg 0.4-0.8 mg Intravenous Q4H PRN Jj saldaña MD 0.8 mg at 04/25/18 0615 hydrOXYzine pamoate (VISTARIL) capsule 25 mg 25 mg Oral Q6H PRN Jj Lundberg MD 25 m g at 04/25/18 0743 [START ON 04/26/2018] lactulose liquid 20 g 20 g Oral Daily Jj Lundberg MD magnesium oxide (MAG-OX) tablet 400 mg 400 mg Oral BID Jj Lundberg MD metoclopramide (REGLAN) 5 mg/mL injection 10 mg 10 mg Intravenous Q6H PRN Jj Lundberg MD nitroglycerin (NITRO-BID) 2% ointment 0.5 inch 0.5 inch Topical Q6H PRN Donald Rivera ondansetron (ZOFRAN) injection 4 mg 4 mg Intravenous Q6H PRN Jj Lundberg MD 4 mg at 04/24/18 0625 pantoprazole (PROTONIX) DR tablet 40 mg 40 mg Oral BID AC Jj Lundberg MD 40 mg at 0 04/25/18 0618 Current Infusions: Jj Lundberg MD 04/25/2018 12:48 [facility] im, MD Jj - 04/24 10:54 AM PST [facility] PROGRESS NOTE Patient: Tiny Campuzano : 1975: Age: 42 y.o. MedRec: [id number] Admission date: 04/23/2018 Hospital day # : 1 Physician author: Jj Lundberg MD Today: 04/24/2018 Reason for hospitalization Tiny Campuzano is a 42 y.o. female with a history of alcoholic cirrhosis, diet contro lled DM, presented on 04/23/2018, seen by farhat pathak yesterday, BUT despite change in diureti cs, there is ongoing 30lb weight gain, and today she was told by farhat pathak to come to ER f or the fluid overload/pain. Associated nausea. She fainted at home a few times. She is crying throughout exam, pain due to anasarca abdomen to feet. She indicates diuretic compliance/etoh cessation and that Right sided ABDOMINAL chronic intermittent pain is worse w/ water weight gain. Chest pain on HD2 w/ negative EGK/trop. Echo 02/2018 and stress study 03/2018 at [facility]. ED course: NO O2 need, good UOP after lasix in ER -Studies: BNP 340/ Ammonia 44 CXR pulm edema, CT a/p without enough ascities for paracentes is -Treatment: lasix 40 / dialudid 1 mg x 2 Relevant Chart Review 03/15/2018- 04/01/2018 TRANSFER FROM [facility], Hospitalized [facility] for cir rhosis r/o cholecystitis work up, deemed to not have acute cholecystitis, transferred from urgery service to internal medicine service for orthostatic hypotension thought to be due to overdiuresis. 04/2015 [facility] EGD Upper endoscopy was remarkable for a weakened lower esophageal sphincter a t 40 cm from the alveolar ridge marked gastroparesis with antral gastritis marked degree H. pylori biopsy was obtained there was duodenal erosions within the duodenal bulb. Biopsies were obtained of the duodenum mucosa for celiac sprue although the mucosa appeared to be nor mal the patient may benefit from proton pump inhibitor therapy along with metoclopramide hel p with her gastroparesis 03/2018 nuc med Component Name Value Ref Range BASELINE HEART RATE 92 bpm BASELINE BLOOD PRESSURE 91/49 mmHg PEAK HEART RATE 97 PEAK BLOOD PRESSURE 103/53 mmHG Target HR 151 Percent HR 54 LVEF-SPECT NUCLEAR STRESS/VIABILITY 37 % NM stress end diastolic volume 218 NM stress end systolic volume [address] Elevation (mm) 0.0 mm Result Narrative Myocardial Perfusion Imaging Results: 1.Myocardial perfusion imaging is abnormal. 2.There is a small amount of ischemia in the mid anterior wall surrounding a large area of scar. 3.There is a large area of infarction in the anterior and anteroseptal, and inferoapical sanderson. 4.There is a small area of artifact in the inferior wall. This is due to diaphragmatic attenuation. 5.There is moderate left ventricular systolic dysfunction with an EF of 39%. 6.By imaging criteria, this is a intermediate risk test result due to the extent of left ventricular systolic dysfunction, myocardial scar with yuli-infarct ischemia 03/19/2018 echo LVEF-TTE TRANSTHORACIC ECHO 45 % BASELINE BLOOD PRESSURE 113/74 mmHg Patient Weight (lbs) 317lb Patient Height 69in LVIDd 7 cm FS 16 % Ascending aorta 3.1 cm AV mean gradient 10 mmHg LVOT diameter 2.1 cm AVVTI 43.5 cm AV Mean Velocity 146 cm/s LA Area 33.5 cm2 Teicholz Ef Calc 32.19 % Heart Rate 87 Aortic Root Diameter 3.2 cm IVS Diastolic Thickness MM 1.1 cm LVPW Diastolic Thickness MM 1 cm LV Systolic Diameter MM 5.9 cm Result Narrative Probably severe left atrial enlargement Severe left ventricular enlargement with mild systolic dysfunction and apical wall motion abnormality Normal right ventricular size and systolic function No obvious valvular pathology No previous echocardiogram available for comparison Assessment and Plan Active Hospital Problems Diagnosis Anasarca Resolved Hospital Problems Diagnosis No resolved problems to display. Hospital Day: 2 Chronic anemia w/ Hg drop Known cytopenias attributed to cirrhosis Monitor Anasarca due to cirrhosis, improving, limited by BP/dizziness BNP/ammonia improved from 02/2018 hospitalization, monitor for overdiuresis Diuresis s/p lasix iv 120 yesterday, 20 today, then 20 BID for tomorrow dialudid Hypokalemia/hypomag from diuresis K 40mEq x 5 PO today K 20mEq IV today Mag oxide 800mg today Mag sulfate 2g today Mag oxide 400mg QDay No daily K ordered yet Etoh-Cirrhosis LFTs stable etoh cessation since 02/2018, held naltrexone for now Continue lactulose Hold spironolactone/K while diuresing Acute on chronic RUQ pain due to anasarca/cirrhosis No acute cholecystitis or gallbladder pathology per CT/surgery evaluation 02/2018 CAD / sCHF Chest pain on HD2, resolved w/ dilaudid EF 45% presumed CAD myocardiac perfusion scan in [facility] Asa/statin/metoprolol. hold lisinopril while diuresis Trial nitro paste prn - monitor bp Gastroparesis/PUD/h pylori hx Increase PPI zofran reglan SHARRON / asthma Intolerant of CPAP Inhaled steroid/albuterol DM2, diet controlled SSI Morbid obesity DVT prophylaxis - heparin - hold for plt < 120k Disposition - inpatient Plan discussed with patient. Subjective by date Chronic numbness/tingling all digits, SOB on exertion, + BM, ambulating to the bathroom vo iding declined umanzor due to prior UTIs, tolerated diet, no n/v, 12/23 intermittent, chronic sharp pain to her R lower abdomen. Chest pain this am, neg trop/ekg, better w/ dilaudid. Ab domen and lower extremities are less taut, feels better, lightheadness today. No SOB/asthma flare Treatment log Replete electrolytes, decrease lasix, Increase ppi bid/prn nitro Exam UOP >2L VSS On room air General NAD A and O smiling this afternoon Cardiac S1 S2 RRR systolic murmur Lung CTAB Abdominal soft nt nd + BS, less taut Neuro no dysarthria Extremities severe pimentel edema, improved, still taut Vitals Ranges: Temp: [36.6 C (97.9 F)-37.5 C (99.5 F)] 37 C (98.6 F) Pulse: [71-87] 80 Resp: [16] 16 BP: (95-119)/(46-82) 106/52 Vitals: Temp: 37 C (98.6 F) BP: 106/52 Pulse: 80 Resp: 16 SpO2: 100 % SpO2 100 % on room air at flow rate L/min Objective Data Point of care glucose No results for input(s): POCGLU in the last 168 hours. Labs last 24 hours Recent Results (from the past 24 hour(s)) ECG 12 lead Collection Time: 04/23/18 12:51 Result Value Ref Range VENTRICULAR RATE EKG 85 BPM ATRIAL RATE 85 BPM P-R INTERVAL 172 ms QRS DURATION 84 ms Q-T INTERVAL 424 ms Q-T INTERVAL (CORRECTED) 504 ms P WAVE AXIS 70 degrees QRS AXIS 41 degrees T AXIS 35 degrees INTERPRETATION TEXT Poor data quality, interpretation may be adversely affected Normal sinus rhythm Low voltage QRS Long QTc Cannot rule out Anterior infarct , age undetermined Diffuse Nonspecific T wave abnormality Abnormal ECG No previous ECGs available Confirmed by EREN NICOLE MD ([id number]) on 04/24/2018 7:32:37 AM CBC with Differential Collection Time: 04/23/18 13:12 Result Value Ref Range WBC 9.6 4.0 - 11.0 K/uL RBC 3.51 (L) 3.70 - 5.20 M/uL Hemoglobin 9.4 (L) 11.5 - 16.0 g/dL Hematocrit 29.5 (L) 34.0 - 47.0 % MCV 84.0 83.0 - 101.0 fL MCH 26.8 (L) 28.0 - 35.0 pg MCHC 31.9 (L) 32.0 - 36.0 g/dL RDW-CV 20.8 (H) <15.0 % RDW-SD 64.4 (H) 35.1 - 46.3 fL Platelet Count 141 140 - 440 K/uL MPV 9.1 6.5 - 12.4 fL % Neutrophils 54.8 45.0 - 82.0 % % Lymphocytes 29.1 20.0 - 45.0 % % Monocytes 9.2 4.0 - 12.0 % % Eosinophils 5.2 (H) 0.0 - 5.0 % % Basophils 1.3 (H) 0.0 - 1.0 % % Immature Granulocytes 0.4 0.0 - 0.4 % Absolute Neutrophils 5.26 1.80 - 8.50 K/uL Absolute Lymphocytes 2.79 0.60 - 3.20 K/uL Absolute Monocytes 0.88 0.00 - 1.00 K/uL Absolute Eosinophils 0.50 (H) 0.00 - 0.40 K/uL Absolute Basophils 0.12 (H) 0.00 - 0.10 K/uL Absolute Immature Granulocytes 0.04 (H) 0.00 - 0.03 K/uL % nRBC 0 0 - 2 per 100 WBC's Absolute nRBC 0.00 0.00 - 0.01 K/uL Comprehensive Metabolic Panel Collection Time: 04/23/18 13:12 Result Value Ref Range Na 138 136 - 149 mmol/L K 3.2 (L) 3.5 - 5.1 mmol/L Cl 106 98 - 109 mmol/L CO2 21 (L) 24 - 31 mmol/L Anion Gap 11 3 - 16 mmol/L Glucose 99 70 - 109 mg/dL BUN 6 (L) 7 - 18 mg/dL Creatinine 1.12 0.60 - 1.30 mg/dL eGFR if not 53 (L) >=60 mL/min/1.73m2 Ca 8.4 8.3 - 10.5 mg/dL Albumin 2.5 (L) 3.2 - 5.0 g/dL Bilirubin Total 1.7 (H) 0.1 - 1.5 mg/dL Total Protein 6.2 6.0 - 7.8 g/dL AST 34 10 - 42 U/L ALT 15 6 - 45 U/L Alkaline Phosphatase 132 (H) 40 - 110 U/L Globulin 3.7 2.1 - 3.8 g/dL Albumin/Globulin Ratio 0.7 (L) 0.8 - 2.0 BUN/Creatinine Ratio 5.4 Troponin I Collection Time: 04/23/18 13:12 Result Value Ref Range Troponin I <0.01 <0.06 ng/mL Protime INR Collection Time: 04/23/18 13:12 Result Value Ref Range Protime 17.2 (H) 11.3 - 13.9 seconds INR 1.4 (H) 0.9 - 1.1 B Type Natriuretic Peptide Collection Time: 04/23/18 13:12 Result Value Ref Range BNP 340 (H) <100 pg/mL Ammonia Collection Time: 04/23/18 13:12 Result Value Ref Range Ammonia 44 (H) 11 - 35 umol/L Lactic Acid Collection Time: 04/23/18 13:12 Result Value Ref Range Lactate 2.8 (H) 0.5 - 2.2 mmol/L Ethanol Collection Time: 04/23/18 13:12 Result Value Ref Range ALCOHOL, SERUM/PLASMA <5 <400 mg/dL Basic Metabolic Panel Collection Time: 04/24/18 5:45 Result Value Ref Range Na 137 136 - 149 mmol/L K 2.8 (L) 3.5 - 5.1 mmol/L Cl 106 98 - 109 mmol/L CO2 23 (L) 24 - 31 mmol/L Anion Gap 8 3 - 16 mmol/L Glucose 92 70 - 109 mg/dL BUN 5 (L) 7 - 18 mg/dL Creatinine 0.96 0.60 - 1.30 mg/dL eGFR if not >60 >=60 mL/min/1.73m2 Ca 8.0 (L) 8.3 - 10.5 mg/dL BUN/Creatinine Ratio 5.2 CBC no Differential Collection Time: 04/24/18 5:45 Result Value Ref Range WBC 8.5 4.0 - 11.0 K/uL RBC 3.03 (L) 3.70 - 5.20 M/uL Hemoglobin 8.2 (L) 11.5 - 16.0 g/dL Hematocrit 25.4 (L) 34.0 - 47.0 % MCV 83.8 83.0 - 101.0 fL MCH 27.1 (L) 28.0 - 35.0 pg MCHC 32.3 32.0 - 36.0 g/dL RDW-CV 20.8 (H) <15.0 % RDW-SD 63.7 (H) 35.1 - 46.3 fL Platelet Count 112 (L) 140 - 440 K/uL MPV 9.6 6.5 - 12.4 fL % nRBC 0 0 - 2 per 100 WBC's Absolute nRBC 0.00 0.00 - 0.01 K/uL Magnesium Collection Time: 04/24/18 5:45 Result Value Ref Range Magnesium 1.5 (L) 1.8 - 2.5 mg/dL ECG 12 lead Collection Time: 04/24/18 7:57 Result Value Ref Range INTERPRETATION TEXT Not Confirmed Troponin I Collection Time: 04/24/18 8:52 Result Value Ref Range Troponin I <0.01 <0.06 ng/mL Micro results Microbiology Results (72 hrs) No results found for the last [address] Abdomen Pelvis Wo Contrast Result Date: 04/23/2018 CT ABDOMEN PELVIS WO CONTRAST 04/23/2018 1:01 PM HISTORY: ABDOMINAL PAIN. COMPARISON: None. P ROTOCOL: Axial images of the abdomen and pelvis were obtained. Coronal and sagittal reformat ions were acquired. FINDINGS: LUNG BASE: Mild atelectasis and/or minimal patchy groundglass consolidation in the right lung base. Heart is enlarged. 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 HEPATOBILIARY: Diffusely nodula r contour of the liver compatible with cirrhosis. No contour deforming mass identified in th is noncontrast CT. A few gallstones are identified within the neck/proximal cystic duct of t he gallbladder. No evidence of biliary ductal dilatation. PANCREASE: Normal parenchyma. No e vidence of pancreatic ductal dilation. SPLEEN: Normal parenchyma. No evidence of mass or spl enomegaly. ADRENAL GLANDS: No evidence of nodule, mass or suspicious thickening. KIDNEYS: Bi lateral kidneys are without evidence of suspicious mass, calculus, or hydronephrosis. BLADDE R: Unremarkable. REPRODUCTIVE: Uterus and adnexal structures are without evidence of gross a bnormality. VASCULATURE: Pronounced perigastric, perisplenic, and developing periesophageal varices are present. LYMPH NODES: Borderline prominence of bilateral superficial lymph nodes . No other convincingly suspicious lymphadenopathy identified. This is somewhat difficult to evaluate without the use of intravenous contrast. BOWEL: The stomach is normal.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 Date APPENDECTOMY 03/02/2015 Biopsy of uterus lining 12-27-09 COLONOSCOPY 08-16-14 Postoperative diagnoses: irritated internal and external hemorrhoids. COLONOSCOPY with lesion removel 10/30/10 Incision and drainage of Vulva or perineal abcess 06-15-13 repair/graft femur head/neck 01-06-13 TONSILLECTOMY AND ADENOIDECTOMY 10-08-89 UPPER GASTROINTESTINAL ENDOSCOPY N/A 04/17/2015 Procedure: EGD; Surgeon: Keaton Wakefield MD; Location: [facility] MEDICAL PROCEDURE UNIT CURRENT MEDICATIONS Previous Medications ACETAMINOPHEN (TYLENOL) 325 MG TABLET Take by mouth. ALBUTEROL 90 MCG/PUFF INHALER Inhale 1-2 puffs into the lungs See Admin Instructions. 1 -2 puffs by mouth every 3 to 4 hours if needed for shortness of breath ASCORBIC ACID (VITAMIN C) 500 MG TABLET Take 500 mg by mouth Daily. ASPIRIN 81 MG EC TABLET Take 81 mg by mouth Daily. ATORVASTATIN (LIPITOR) 40 MG TABLET Take 40 mg by mouth nightly. CIPROFLOXACIN (CIPRO) 500 MG TABLET Take 500 mg by mouth 2 times daily. FERROUS SULFATE 325 MG TABLET Take 325 mg by mouth daily (with breakfast). FLUTICASONE (FLONASE) 50 MCG/NASAL SPRAY 2 sprays by Nasal route Daily. FUROSEMIDE (LASIX) 40 MG TABLET Take 40 mg by mouth Daily. HYDROXYZINE PAMOATE (VISTARIL) 25 MG CAPSULE Take 25 mg by mouth every 6 hours as neede d for Anxiety. LACTULOSE 10 G/15 ML SOLUTION Take 20 g by mouth 2 times daily. MAGNESIUM OXIDE (MAG-OX) 400 MG TABLET Take 400 mg by mouth Daily. METOCLOPRAMIDE (REGLAN) 10 MG TABLET Take 10 mg by mouth 4 times daily (before meals an d nightly). METOPROLOL SUCCINATE (TOPROL-XL) 25 MG 24 HR TABLET Take 25 mg by mouth Daily. METRONIDAZOLE (FLAGYL) 500 MG TABLET Take 500 mg by mouth 3 times daily. MOMETASONE-FORMOTEROL (DULERA) 200-5 MCG/PUFF INHALER Inhale 2 puffs into the lungs 2 t imes daily. NALTREXONE (REVIA) 50 MG TABLET Take 50 mg by mouth Daily. ONDANSETRON (ZOFRAN ODT) 4 MG DISINTEGRATING TABLET Take 4 mg by mouth every 8 hours as needed for Nausea. PANTOPRAZOLE (PROTONIX) 40 MG TABLET Take 40 mg by mouth every morning (before breakfas t). POTASSIUM CHLORIDE (KLOR-CON) 20 MEQ PACKET Take 20 mEq by mouth Daily. SPIRONOLACTONE (ALDACTONE) 50 MG TABLET Take 50 mg by mouth Daily. ALLERGIES No Known Allergies FAMILY AND SOCIAL HISTORY Family History Problem Relation Age of Onset Family history unknown: Yes Social History Social History Marital status: Single Spouse name: N/A Number of children: N/A Years of education: N/A Social History Main Topics Smoking status: Never Smoker Smokeless tobacco: Never Used Alcohol use No Comment: stopped 01-08-18 Drug use: Yes Types: , Marijuana Comment: states occasionally Sexual activity: Not Asked Other Topics Concern None Social History Narrative None REVIEW OF SYSTEMS Review of Systems Constitutional: Negative for chills and fever. Respiratory: Positive for shortness of breath. Cardiovascular: Positive for leg swelling. Gastrointestinal: Positive for abdominal pain and nausea. As in history of present illness. A 10 system review was otherwise negative. PHYSICAL EXAM VITAL SIGNS: (first vital signs):Temp: 36.9 C (98.5 F) Pulse: 78 Resp: 16 SpO2: 100 % B P: 119/82 Body mass index is 50.78 kg/m. Constitutional: female patient, anxious and crying, alert and appropriate, conversant with nurse and staff. HEENT: Atraumatic, patient follows me around the room with their eyes, PERRL, Oropharynx s hows no redness, moist mucus membranes. Neck: Supple with full range of motion. No JVD, lymphadenopathy, or meningismus. Respiratory: Good air movement bilaterally. No wheezes, no rales. Patient's work of breat mable is normal. Cardiovascular: Normal S1 S2. No rubs or murmurs Abdomen: Massively enlarged pannus, no focal ttp and no fluid wave. No rebound, guarding, or masses. Bowel tones normal. No pulsatile masses Back: No CVA tenderness. No midline thoracic or lumbar spinal tenderness. Extremities: Pitting edema to the bilateral lower extremities with tense swelling. Presen t distal pulses. Skin: Warm, Dry, No obvious rashes. Capillary refill is brisk <3 seconds and shows good p erfusion on areas of visible skin. Neurologic: Alert & oriented. Cranial nerves II-XII intact. No focal deficits. Gait is n ormal. Speech is normal. Psychiatric: Normal mood, affect and judgement. No evidence of suicidal or homicidal idea tion at this time. LABS Results for orders placed or performed during the hospital encounter of 04/23/18 CBC with Differential Result Value Ref Range WBC 9.6 4.0 - 11.0 K/uL RBC 3.51 (L) 3.70 - 5.20 M/uL Hemoglobin 9.4 (L) 11.5 - 16.0 g/dL Hematocrit 29.5 (L) 34.0 - 47.0 % MCV 84.0 83.0 - 101.0 fL MCH 26.8 (L) 28.0 - 35.0 pg MCHC 31.9 (L) 32.0 - 36.0 g/dL RDW-CV 20.8 (H) <15.0 % RDW-SD 64.4 (H) 35.1 - 46.3 fL Platelet Count 141 140 - 440 K/uL MPV 9.1 6.5 - 12.4 fL % Neutrophils 54.8 45.0 - 82.0 % % Lymphocytes 29.1 20.0 - 45.0 % % Monocytes 9.2 4.0 - 12.0 % % Eosinophils 5.2 (H) 0.0 - 5.0 % % Basophils 1.3 (H) 0.0 - 1.0 % % Immature Granulocytes 0.4 0.0 - 0.4 % Absolute Neutrophils 5.26 1.80 - 8.50 K/uL Absolute Lymphocytes 2.79 0.60 - 3.20 K/uL Absolute Monocytes 0.88 0.00 - 1.00 K/uL Absolute Eosinophils 0.50 (H) 0.00 - 0.40 K/uL Absolute Basophils 0.12 (H) 0.00 - 0.10 K/uL Absolute Immature Granulocytes 0.04 (H) 0.00 - 0.03 K/uL % nRBC 0 0 - 2 per 100 WBC's Absolute nRBC 0.00 0.00 - 0.01 K/uL Comprehensive Metabolic Panel Result Value Ref Range Na 138 136 - 149 mmol/L K 3.2 (L) 3.5 - 5.1 mmol/L Cl 106 98 - 109 mmol/L CO2 21 (L) 24 - 31 mmol/L Anion Gap 11 3 - 16 mmol/L Glucose 99 70 - 109 mg/dL BUN 6 (L) 7 - 18 mg/dL Creatinine 1.12 0.60 - 1.30 mg/dL eGFR if not 53 (L) >=60 mL/min/1.73m2 Ca 8.4 8.3 - 10.5 mg/dL Albumin 2.5 (L) 3.2 - 5.0 g/dL Bilirubin Total 1.7 (H) 0.1 - 1.5 mg/dL Total Protein 6.2 6.0 - 7.8 g/dL AST 34 10 - 42 U/L ALT 15 6 - 45 U/L Alkaline Phosphatase 132 (H) 40 - 110 U/L Globulin 3.7 2.1 - 3.8 g/dL Albumin/Globulin Ratio 0.7 (L) 0.8 - 2.0 BUN/Creatinine Ratio 5.4 Troponin I Result Value Ref Range Troponin I <0.01 <0.06 ng/mL Protime INR Result Value Ref Range Protime 17.2 (H) 11.3 - 13.9 seconds INR 1.4 (H) 0.9 - 1.1 B Type Natriuretic Peptide Result Value Ref Range BNP 340 (H) <100 pg/mL Ammonia Result Value Ref Range Ammonia 44 (H) 11 - 35 umol/L Lactic Acid Result Value Ref Range Lactate 2.8 (H) 0.5 - 2.2 mmol/L Ethanol Result Value Ref Range ALCOHOL, SERUM/PLASMA <5 <400 mg/dL ECG 12 lead Result Value Ref Range INTERPRETATION TEXT Not Confirmed IMAGING STUDIES Recent imaging: Recent Results (from the past 360 hour(s)) CT Abdomen Pelvis wo Contrast Narrative CT ABDOMEN PELVIS WO CONTRAST 04/23/2018 1:01 PM HISTORY: ABDOMINAL PAIN. COMPARISON: None. PROTOCOL: Axial images of the abdomen and pelvis were obtained. Coronal and sagittal reformations were acquired. FINDINGS: LUNG BASE: Mild atelectasis and/or minimal patchy groundglass consolidation in the right lung base. Heart is enlarged. 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 HEPATOBILIARY: Diffusely nodular contour of the liver compatible with cirrhosis. No contour deforming mass identified in this noncontrast CT. A few gallstones are identified within the neck/proximal cystic duct of the gallbladder. No evidence of biliary ductal dilatation. PANCREASE: Normal parenchyma. No evidence of pancreatic ductal dilation. SPLEEN: Normal parenchyma. No evidence of mass or splenomegaly. ADRENAL GLANDS: No evidence of nodule, mass or suspicious thickening. KIDNEYS: Bilateral kidneys are without evidence of suspicious mass, calculus, or hydronephrosis. BLADDER: Unremarkable. REPRODUCTIVE: Uterus and adnexal structures are without evidence of gross abnormality. VASCULATURE: Pronounced perigastric, perisplenic, and developing periesophageal varices are present. LYMPH NODES: Borderline prominence of bilateral superficial lymph nodes. No other convincingly suspicious lymphadenopathy identified. This is somewhat difficult to evaluate without the use of intravenous contrast. BOWEL: The stomach is normal. Imaged small bowel and colon demonstrate no acute findings. No evidence of dilatation to suggest obstruction or abnormal bowel wall thickening. PERITONEUM: Trace free fluid in the dependent pelvis SOFT TISSUES: Pronounced truncal subcutaneous fat stranding/anasarca. Periumbilical varices are seen with prominence of the inferior epigastric vasculature. BONES: There are no acute osseous abnormalities. Nonspecific sclerotic focus in the right femoral neck likely represents a bone island but other etiologies not entirely excluded. Multilevel degenerative disc disease and facet spondylosis of the thoracolumbar spine. DISH of the lower thoracic spine. IMPRESSION - 1. Cirrhosis with sequelae of portal hypertension including extensive. Splenic and perigastric portosystemic collaterals. Mild early ascites. 2. 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 Recommend cardiology consultation if clinically indicated. 3. Cholelithiasis with a few small calcified gallstone seen within the neck the gallbladder or proximal cystic duct. 4. Diffuse fat stranding throughout the abdominal/truncal soft tissues most compatible with edema/anasarca versus cellulitis. Dictated and Signed by: Jamie Yeung MD Electronically signed: 04/23/2018 1:42 PM ED COURSE & MEDICAL DECISION MAKING Pertinent Labs & Imaging studies were reviewed along with EMS notes and residential record s if applicable. Medication and Allergy lists reviewed in [facility]. Nurses note and old record s were reviewed if available within [facility] ER course 12:39 - Patient care initiated. After introducing myself to the patiet, I performed a care ful history and physical examination. This is a morbidly obese 42-year-old patient presenting with decompensated cirrhosis and fluid overload. She was sent here by the [facility] clinic for admission and diuresis. We will initiate a full medical evaluation including CT scan and then reevaluate 14:12. Patient is massively fluid overloaded and will need to admitted for IV diuresis and then further studies. The case was discussed with Dr. Lundberg who kindly agrees to see the enrico ent Last Set of Vital Signs: Temp: 36.9 C (98.5 F) Pulse: 80 Resp: 16 SpO2: 98 % BP: 105/60 FINAL IMPRESSION 1. Decompensated hepatic cirrhosis (HCC) 2. Hypervolemia, unspecified hypervolemia type 3. Acute systolic congestive heart failure (HCC) 4. 3+ pitting edema 5. Abdominal pain, chronic, epigastric Disposition: Admit Condition: Stable New Prescriptions No medications on file Discontinued Medications CALCIUM ASCORBATE (BUFFERED VITAMIN C) 500 MG TABS Take 500 mg by mouth 2 times daily. CETIRIZINE (ZYRTEC) 10 MG TABLET Take 10 mg by mouth Daily. CITALOPRAM (CELEXA) 40 MG TABLET Take 40 mg by mouth Daily. DOCUSATE SODIUM PO Take 1 capsule by mouth 2 times daily. INSULIN GLARGINE (LANTUS SOLOSTAR) 100 UNITS/ML INJECTION (PEN) Inject 10 Units under t he skin nightly. Inject 10 units under the skin at bedtime IRON, FERROUS SULFATE, PO Take 5 mLs by mouth 2 times daily. LISINOPRIL (PRINIVIL, ZESTRIL) 10 MG TABLET Take 10 mg by mouth Daily. LORAZEPAM (ATIVAN) 1 MG TABLET Take 1 mg by mouth 3 times daily as needed for Anxiety. TIZANIDINE (ZANAFLEX) 4 MG TABLET Take 4 mg by mouth every 6 hours as needed. Administrations This Visit furosemide (LASIX) injection 40 mg Admin Date 04/23/2018 Action Given Dose 40 mg Route Intravenous Administered By Martina Tolliver RN HYDROmorphone (DILAUDID) injection 1 mg Admin Date 04/23/2018 Action Given Dose 1 mg Route Intravenous Administered By Martina Tolliver RN Portions of this chart may have been created with [employer] voice recognition software. Occasi onal wrong-word or sound-alike substitutions may have occurred due to the inherent munoz itations of voice recognition software. Please read the chart carefully and recognize, using context, where these substitutions have occurred. James Yanez MD 04/23/18 1614 utKeaton kearney RN - 04/23/2018 12:10 PM PSTPatient reports abdominal pain and nasuea. Had admission on 03/15 to [facility] and transferred to [facility] for similar pain. Reports pain is due to g all bladder and ascites. Told by PCP to come here due to need for cardiology and known live problems documented in this encounter Miscellaneous Notes Plan of Care - Kath Campos, SIEBEL ADMINISTRATOR - 05/06/2018 7:35 PM PSTProblem: Discharge Planning Goal: Patient will be discharged in a safe manner Outcome: Improving Patient eager to discharge home today with family transporting her. This CM called [facility] and spoke with RN, Valentina [phone]. This Cm let her know that patient is celso ng discharged and needs a follow up in [address] Cabral and a BMP as she is being disc harge on a higher dose of her lasix. Valentina states that they have a spot open on Thursday. S he is going to call patient tomorrow to get it scheduled. This CM also let her know that she needs outpatient OT for wraps. She will get a referral f or outpatient OT and follow up with patient as well. Asked her to be seen by their [facility] health RN Luis Antonio--Valentina will notify luis antonio of her d ischarge and have her follow up. AVS , OT and H&P notes have been faxed to the office [phone]. No d.c summary available to fax at this time. PLAN: Home with follow up from [facility]. lan of Care - Gaviota Kinsey COTA - 05/06/2018 4:00 PM PSTFormatting of this note might be different from t he original. Problem: Patient Care Overview (Adult) Goal: Care Team Goals & Evaluation PROBLEM-RELATED GOALS: 1. Liv will remain free from falls/injuires through 04-30-18. 2. Liv will remain free from s/sx infection through 04-30-18. 3. Liv's pain will be adequately controlled and she will rate her pain 3/10 (or comforta ble level) through 04-30-18. 4. Tiny will maintain adequate oxygenation via oximetry with SpO2 >92% by 04/28/18. Go al met 5. Tiny will have breath sounds consistent with baseline function throughout stay and r everse airway bronchospasm when indicated. Reevaluate goal by 05/07/18. 6. Liv will demonstrate safe ambulation with cane or FWW 300' x 2 by 05/04/18. STRATEGY TO ACHIEVE GOALS: 1. Conduct hourly rounding during day shift and q2h during shift stacker. Answer call light i n person and/or in a timely manner. 2. Assess vitals w/temps and monitor lab values; notify MD if abnormalities are identified. 3. Assess pain PRN and medicate w/analgesics PRN; re-assess for effectiveness. Educate pt o n non-pharmacologic methods of pain reduction. 4. Monitor saturations via oximetry and titrate to order as indicated. 5. Administer respiratory medications as ordered and adjust with use of respiratory protoco ls. 6. PT intervention, pt education and participation. Outcome: Improving Occupational Therapy Plan of Care Treatment Note Summary: Andres been participating in occupational therapy for treatment of decreas ed independence with ADL and functional mobility following admit for anascara and abdominal pain related to water weight gain. Liv cleared for therapy by FREYA Alcaraz. Emphasis of irena jaffe included coban II system compression wrapping to BLE BK for continued edema reduction to BLE. Pt reported she did no like kinisotape that was applied yesterday to BLE and reques kishan compression wraps be applied today as she is discharging home today w/ sister. Patient demonstrates progress towards functional goals as evidenced by dressing U/B independent and L/B mod I and decreased edema noted on BLE w/ tissue feeling softer to the touch. This ther apist notified FREYA Alcaraz pt will need a referral to outpatient lymphedema clinic for contin ued compression wrapping to BLE for edema reduction and she made referral to outpatient sylvie tovar. Pt will d/c home w/ sister whom will be assisting pt as needed at home. Occupational Therapy Discharge Recommendations are: Recommended discharge disposition: home with assist, [facility] Post discharge occupational therapy recommendation: ongoing low intensity therapy, home he alth Equipment Recommendations: Planned Interventions:ADL retraining, balance training, bed mobility training, functional e ndurance training, patient/family education, ROM (Range of Motion), strengthening, transfer training, other (see comments) (edema management techniques) Recommended Frequency: daily Patient Status/Goals: Reflects last filed data and may be from multiple contributors. ADLs Donned blouse Independent seated at EOB UB dressing, Level of [place]: Independent Assistive Device: none UB dressing Assess/Train,position: sitting Mod I/extra time to chuy pants and socks and slippers seated at EOB LB Dressing, Level of [place]: modified independent Assistive Device: none LB Dressing Assess/Train, Position: sitting, standing LB Dressing Impairments: decreased flexibility, strength decreased Functional Endurance Fair for acivities presented Cognitive Orientation: oriented x 4 Bed Mobility Mod I w/ bed mobility Assistive Device: HOB elevated Supine to Sit, Level of [place]: modified independent Sit to Supine, Level of [place]: modified independent Safety Issues: decreased use of legs for bridging/pushing Impairments: strength decreased Transfers Mod I w/ sit>stand t/f Sit-Stand, Level of [place]: modified independent Stand-Sit, Level of [place]: modified independent [id number], Assistive Device: 2 wheeled walker (FWW), bariatric Impairments: strength decreased, coordination impaired OT Goal Review Date Most Recent Value STG Review Date 05/09/18 at 05/02/2018 1407 Grooming Goal Most Recent Value STG Status progressing at 05/04/2018 0940 STG [place] Level modified independent at 05/02/2018 1407 STG Position standing at 05/02/2018 1407 LB Dressing Goal Most Recent Value STG Status met at 05/06/2018 1530 STG [place] Level modified independent at 05/02/2018 1407 Additional Goals #1 OT Most Recent Value STG Status progressing at 05/06/2018 1530 STG Pt. will tolerate BLE compression wraps and other edema management techniques includin g MLM for edema management at 05/02/2018 1407 LTG Status progressing at 05/06/2018 1530 Electronically signed by: ANAND Pierre, 05/06/2018 16:26 lan of Care - Lissa Mckenzie RN - 05/06/2018 3:58 PM PSTProblem: Patient Care Overview (Adult) Goal: Care Team Goals & Evaluation PROBLEM-RELATED GOALS: 1. Liv will remain free from falls/injuires through 04-30-18. 2. Liv will remain free from s/sx infection through 04-30-18. 3. Liv's pain will be adequately controlled and she will rate her pain 3/10 (or comforta ble level) through 04-30-18. 4. Tiny will maintain adequate oxygenation via oximetry with SpO2 >92% by 04/28/18. Go al met 5. Tiny will have breath sounds consistent with baseline function throughout stay and r everse airway bronchospasm when indicated. Reevaluate goal by 05/07/18. 6. Liv will demonstrate safe ambulation with cane or FWW 300' x 2 by 05/04/18. STRATEGY TO ACHIEVE GOALS: 1. Conduct hourly rounding during day shift and q2h during shift stacker. Answer call light i n person and/or in a timely manner. 2. Assess vitals w/temps and monitor lab values; notify MD if abnormalities are identified. 3. Assess pain PRN and medicate w/analgesics PRN; re-assess for effectiveness. Educate pt o n non-pharmacologic methods of pain reduction. 4. Monitor saturations via oximetry and titrate to order as indicated. 5. Administer respiratory medications as ordered and adjust with use of respiratory protoco ls. 6. PT intervention, pt education and participation. Outcome: Adequate for Discharge Date Met: 05/06/18 Goal Evaluation: Patient AOX4, up and ambulating in phillip, VSS, patient requesting leg wrap before discharge , OT Gaviota wrapping legs now, IV dc'd with no signs and symptoms of infection, AVS given to p atient with prescriptions patient verbalized understanding. Patient referral to outpatient O T to wrap legs. Patient verbalized understanding. lan of Care - Antonina Pastrana, PT - 05/06/2018 10:01 AM PST Problem: Patient Care Overview (Adult) Goal: Care Team Goals & Evaluation PROBLEM-RELATED GOALS: 1. Liv will remain free from falls/injuires through 04-30-18. 2. Liv will remain free from s/sx infection through 04-30-18. 3. Liv's pain will be adequately controlled and she will rate her pain 3/10 (or comforta ble level) through 04-30-18. 4. Tiny will maintain adequate oxygenation via oximetry with SpO2 >92% by 04/28/18. Go al met 5. Tiny will have breath sounds consistent with baseline function throughout stay and r everse airway bronchospasm when indicated. Reevaluate goal by 05/07/18. 6. Liv will demonstrate safe ambulation with cane or FWW 300' x 2 by 05/04/18. STRATEGY TO ACHIEVE GOALS: 1. Conduct hourly rounding during day shift and q2h during shift stacker. Answer call light i n person and/or in a timely manner. 2. Assess vitals w/temps and monitor lab values; notify MD if abnormalities are identified. 3. Assess pain PRN and medicate w/analgesics PRN; re-assess for effectiveness. Educate pt o n non-pharmacologic methods of pain reduction. 4. Monitor saturations via oximetry and titrate to order as indicated. 5. Administer respiratory medications as ordered and adjust with use of respiratory protoco ls. 6. PT intervention, pt education and participation. Outcome: Improving Physical Therapy Plan of Care Treatment Note Summary: Tiny has been participating in physical therapy for treatment of impaired f unctional mobility d/t anascara secondary to liver ETOH cirrhosis, abdominal pain and 30# we ight gain. Emphasis of session included progressive gait distance, speed and changes in dir ection, postural adjustments during dynamic movt. Added UE strengthening activity as below, conditioning activities completed to increase strength, activity tolerance, safety and indpc e. Patient demonstrates progress towards functional goals as evidenced by increased activit y tolerance, gait distance, speed and stability. Plan to take to gym for stair trg and Sci- fit machine next session. Remaining barriers to discharge and functional limitations include decreased insight into s afety and deficits, decreased functional activity tolerance, decreased bed mobility, decreas ed functional transfers, decreased functional gait distance, decreased gait velocity, not ab le to navigate stairs, lives alone and medical status. Tiny will benefit from continued therapeutic intervention to address ongoing impairment s and increase safety and independence with activities necessary for safe discharge. Refer below for specific details regarding functional levels. Physical Therapy Discharge Recommendations are: Recommended discharge disposition: home with assist Post discharge physical therapy recommendation: outpatient therapy, ongoing low intensity therapy Equipment Recommendations: 2 wheeled walker (FWW), bariatric, cane (straight, single point ) Planned Interventions: bed mobility training, gait training, home exercise program, transf er training, strengthening, patient/family education Recommended Frequency: 5 times/wk Patient Status/Goals: Reflects last filed data and may be from multiple contributors. Gait Pt ambulated with FWW in halls x 3 laps, 2 standing rests x 30-60", focused on increased st ride length, rosa for conditioning and normalizing gait speed. Able to complete 360 deg t urn with slow speed and mushroom picker 1 item off floor with 1 hand support on walker Level of [place]: supervised, modified independent Assistive Device: 2 wheeled walker (FWW) Distance (feet): 220' x 3, 50' Stairs NT Transfers Modified indpt sit/stand transfers Sit-Stand, Level of [place]: modified independent Stand-Sit, Level of [place]: modified independent [id number]-Kzl, Assistive Device: 2 wheeled walker (FWW), bariatric Toilet, Level of [place]: modified independent Toilet, Assistive Device: 2 wheeled walker (FWW), grab bars Safety Issues: step length decreased, weight-shifting ability decreased Impairments: strength decreased, coordination impaired Bed Mobility Not tested Assistive Device: HOB elevated Supine to Sit, Level of [place]: modified independent Sit to Supine, Level of [place]: modified independent Safety Issues: decreased use of legs for bridging/pushing Impairments: strength decreased Therapeutic Exercise Worked on 360 deg turn using FWW in halls, side/side steps 5 steps each direction with 2 UE support, then 1, then SBA, wall pushups x 10 reps, 2 sets, progressive rosa with gait tr g Functional Endurance fair "getting tired" but tolerated increased activity well ROM WFL; LE's limited by large tissue mass/habitus Strength L LE Strength: 4/5 R LE Strength: 4/5 PT Goal Review Date Most Recent Value STG Review Date 05/10/18 at 05/04/2018 1100 Lpxbta-Etv-Asjnio Goal Most Recent Value STG Status revised at 05/04/2018 1100 STG [place] Level modified independent at 04/27/2018 1206 STG Assistive Device none at 04/27/2018 1206 STG Comments simulate home environment at 04/27/2018 1206 Hmq-Xtqbi-Giw Goal Most Recent Value STG Status met at 05/05/2018 1306 STG [place] Level modified independent at 04/27/2018 1206 STG Comments with or w/o AD at 04/27/2018 1206 Wxo-Xpngt-Lus Goal Most Recent Value STG Status met at 05/04/2018 1100 STG [place] Level modified independent at 04/27/2018 1206 STG Comments with or w/o AD at 04/27/2018 1206 Gait Goal Most Recent Value STG Status progressing at 05/06/2018 1057 STG [place] Level modified independent at 04/27/2018 1206 STG Assistive Device 2 wheeled walker (FWW), bariatric, cane (straight, single point) at 0 04/27/2018 1206 STG Distance (feet) 300' x 2 at 04/27/2018 1206 Additional Goal #1 PT Most Recent Value STG Status progressing at 05/06/2018 1057 STG HEP instruction for strength/conditioning with verbal/demonstrated understanding by pt . at 04/27/2018 1206 Electronically signed by: Antonina Bhagat, PT, 05/06/2018 11:00 lan of Care - Rhona Motta RN - 05/06/2018 4:08 AM PSTProblem: Patient Care Overview (Adult) Goal: Care Team Goals & Evaluation PROBLEM-RELATED GOALS: 1. Liv will remain free from falls/injuires through 04-30-18. 2. Liv will remain free from s/sx infection through 04-30-18. 3. Liv's pain will be adequately controlled and she will rate her pain 3/10 (or comforta ble level) through 04-30-18. 4. Tiny will maintain adequate oxygenation via oximetry with SpO2 >92% by 04/28/18. Go al met 5. Tiny will have breath sounds consistent with baseline function throughout stay and r everse airway bronchospasm when indicated. Reevaluate goal by 05/07/18. 6. Liv will demonstrate safe ambulation with cane or FWW 300' x 2 by 05/04/18. STRATEGY TO ACHIEVE GOALS: 1. Conduct hourly rounding during day shift and q2h during shift stacker. Answer call light i n person and/or in a timely manner. 2. Assess vitals w/temps and monitor lab values; notify MD if abnormalities are identified. 3. Assess pain PRN and medicate w/analgesics PRN; re-assess for effectiveness. Educate pt o n non-pharmacologic methods of pain reduction. 4. Monitor saturations via oximetry and titrate to order as indicated. 5. Administer respiratory medications as ordered and adjust with use of respiratory protoco ls. 6. PT intervention, pt education and participation. Outcome: Improving Goal Evaluation: Pt aaox4 calls for needs sba to br gait steady but slow. Pt reports chronic abd pain 5mg o xycodone x1 given with relief. Pt at beginning of shift c/o of nausea no emesis zofran x1 gi herman with relief. bilat lower leg edema kinesotape in place. Pt voiding without problems no w ith bm this shift at this time. Pt slept well between cares. Up at 0400 to watch news encour age to keet LE elevated. No falls this shift. lan of Care - Demario, Paris Long RN - 05/05/2018 4:06 PM PSTProblem: Patient Care Overview (Adult) Goal: Care Team Goals & Evaluation PROBLEM-RELATED GOALS: 1. Liv will remain free from falls/injuires through 04-30-18. 2. Liv will remain free from s/sx infection through 04-30-18. 3. Liv's pain will be adequately controlled and she will rate her pain 3/10 (or comforta ble level) through 04-30-18. 4. Tiny will maintain adequate oxygenation via oximetry with SpO2 >92% by 04/28/18. Go al met 5. Tiny will have breath sounds consistent with baseline function throughout stay and r everse airway bronchospasm when indicated. Reevaluate goal by 05/07/18. 6. Liv will demonstrate safe ambulation with cane or FWW 300' x 2 by 05/04/18. STRATEGY TO ACHIEVE GOALS: 1. Conduct hourly rounding during day shift and q2h during shift stacker. Answer call light i n person and/or in a timely manner. 2. Assess vitals w/temps and monitor lab values; notify MD if abnormalities are identified. 3. Assess pain PRN and medicate w/analgesics PRN; re-assess for effectiveness. Educate pt o n non-pharmacologic methods of pain reduction. 4. Monitor saturations via oximetry and titrate to order as indicated. 5. Administer respiratory medications as ordered and adjust with use of respiratory protoco ls. 6. PT intervention, pt education and participation. Outcome: Improving Goal Evaluation: Liv is A/O. VSS. IV to L distal wrist, S/L. C/O chronic pain to lower back and ABD. Oxy giving to relief pain. Edema to abd. +2 And BLE. +3. Kinisotape applied to upper/lower legs/ feet to promote lymph drainageDiet fat and cholest. 2 g. Na. And 1500 ml/day fluid restricti on. Bilateral Chronic numbness to the the toes. Eyes, yellow sclera. Ambulatory to the bathr oom and hpillip ways independently with walker. Participated with OT and PT today. No falls or injuries. lan of Care - Gaviota Fox COTA - 05/05/2018 3:10 PM PSTFormatting of this note might be different from the o riginal. Problem: Patient Care Overview (Adult) Goal: Care Team Goals & Evaluation PROBLEM-RELATED GOALS: 1. Liv will remain free from falls/injuires through 04-30-18. 2. Liv will remain free from s/sx infection through 04-30-18. 3. Liv's pain will be adequately controlled and she will rate her pain 3/10 (or comforta ble level) through 04-30-18. 4. Tiny will maintain adequate oxygenation via oximetry with SpO2 >92% by 04/28/18. Go al met 5. Tiny will have breath sounds consistent with baseline function throughout stay and r everse airway bronchospasm when indicated. Reevaluate goal by 05/07/18. 6. Liv will demonstrate safe ambulation with cane or FWW 300' x 2 by 05/04/18. STRATEGY TO ACHIEVE GOALS: 1. Conduct hourly rounding during day shift and q2h during shift stacker. Answer call light i n person and/or in a timely manner. 2. Assess vitals w/temps and monitor lab values; notify MD if abnormalities are identified. 3. Assess pain PRN and medicate w/analgesics PRN; re-assess for effectiveness. Educate pt o n non-pharmacologic methods of pain reduction. 4. Monitor saturations via oximetry and titrate to order as indicated. 5. Administer respiratory medications as ordered and adjust with use of respiratory protoco ls. 6. PT intervention, pt education and participation. Outcome: Improving Occupational Therapy Plan of Care Treatment Note Summary: Tiny has been participating in occupational therapy for treatment of decreased independence with ADL and functional mobility following admit for anascara and abdominal pa in related to water weight gain. Liv cleared for therapy by FREYA [place]. Liv is not weari ng compression wraps since last night as she stated she had nursing take them off d/t pain o n B legs. Emphasis of session included training/education provided in edema management MLM to BLE upper/lower legs for edema reduction as sig edema noted on lower legs/dorsum of B fee t. Kinisotape applied to upper/lower legs/feet to promote lymph drainage after skin barrier applied and no neg reaction noted to kinisiotape strip test. Skin on BLE is intact and MLM H O w/ written instructions provided to Liv. To monitor kinisotape/continue taping as neede d for edema reduction. Recommended Pt do ankle pumps,leg raises seating/supine in bed and am bulate in unit for exercise during the day to promote lymph drainage as pt is mod I during t day in room and hallway. Patient demonstrates progress towards functional goals as evide nced by tolerating kinisotape w/o discomfort and Liv byers fair MLM w/ cues Remaining barriers to discharge and functional limitations include decreased insight into s afety and deficits, decreased functional activity tolerance, decreased bed mobility, decreas ed functional transfers, decreased ability to perform ADLs, decreased ability to perform IAD Ls, decreased ability to perform medication management, demonstrating need for 24/ supervis ion, not yet able to mobilize at level safe for home discharge and medical status. Tiny will benefit from continued therapeutic intervention to address ongoing impairment s and increase safety and independence with activities necessary for safe discharge. Refer below for specific details regarding functional levels Occupational Therapy Discharge Recommendations are: Recommended discharge disposition: home with assist, [facility] Post discharge occupational therapy recommendation: ongoing low intensity therapy, home he alth Equipment Recommendations: Planned Interventions:ADL retraining, balance training, bed mobility training, functional e ndurance training, patient/family education, ROM (Range of Motion), strengthening, transfer training, other (see comments) (edema management techniques) Recommended Frequency: daily Patient Status/Goals: Reflects last filed data and may be from multiple contributors. ADLs NT this session Functional Endurance Fair Cognitive Completed BLE MLM w/ vc's for technique Orientation: oriented x 4 Bed Mobility Mod I w/ bed mobility Assistive Device: HOB elevated Supine to Sit, Level of [place]: modified independent Sit to Supine, Level of [place]: modified independent Safety Issues: decreased use of legs for bridging/pushing Impairments: strength decreased Transfers Mod I w/ sit>stand t/f's Sit-Stand, Level of [place]: modified independent Stand-Sit, Level of [place]: modified independent [id number], Assistive Device: 2 wheeled walker (FWW) Impairments: impaired balance, strength decreased OT Goal Review Date Most Recent Value STG Review Date 05/09/18 at 05/02/2018 1407 Grooming Goal Most Recent Value STG Status progressing at 05/04/2018 0940 STG [place] Level modified independent at 05/02/2018 1407 STG Position standing at 05/02/2018 1407 LB Dressing Goal Most Recent Value STG Status progressing at 05/04/2018 0940 STG [place] Level modified independent at 05/02/2018 1407 Additional Goals #1 OT Most Recent Value STG Status progressing at 05/05/2018 1430 STG Pt. will tolerate BLE compression wraps and other edema management techniques includin g MLM for edema management at 05/02/2018 1407 Electronically signed by: ANAND Pierre, 05/05/2018 15:27 lan of Care - Eva Saldaña, BROTH MIXER - 05/05/2018 2:42 PM PSTProblem: Patient Care Overview (Adult) Goal: Care Team Goals & Evaluation PROBLEM-RELATED GOALS: 1. Liv will remain free from falls/injuires through 04-30-18. 2. Liv will remain free from s/sx infection through 04-30-18. 3. Liv's pain will be adequately controlled and she will rate her pain 3/10 (or comforta ble level) through 04-30-18. 4. Tiny will maintain adequate oxygenation via oximetry with SpO2 >92% by 04/28/18. Go al met 5. Tiny will have breath sounds consistent with baseline function throughout stay and r everse airway bronchospasm when indicated. Reevaluate goal by 05/07/18. 6. Liv will demonstrate safe ambulation with cane or FWW 300' x 2 by 05/04/18. STRATEGY TO ACHIEVE GOALS: 1. Conduct hourly rounding during day shift and q2h during shift stacker. Answer call light i n person and/or in a timely manner. 2. Assess vitals w/temps and monitor lab values; notify MD if abnormalities are identified. 3. Assess pain PRN and medicate w/analgesics PRN; re-assess for effectiveness. Educate pt o n non-pharmacologic methods of pain reduction. 4. Monitor saturations via oximetry and titrate to order as indicated. 5. Administer respiratory medications as ordered and adjust with use of respiratory protoco ls. 6. PT intervention, pt education and participation. Outcome: Unchanged Goal Evaluation: Liv denies shortness of breath at rest or while walking with PT, breath sounds are mostl y clear with diminished aeration noted in posterior bases. SpO2: 98 % (Denies distress.) on room air. Tolerating treatments which are a substitute for her home regime. lan of Care - Antonina Bhagat, PT - 05/05/2018 11:01 AM PSTFormatting of this note might be different from the or iginal. Problem: Patient Care Overview (Adult) Goal: Care Team Goals & Evaluation PROBLEM-RELATED GOALS: 1. Liv will remain free from falls/injuires through 04-30-18. 2. Liv will remain free from s/sx infection through 04-30-18. 3. Oscars pain will be adequately controlled and she will rate her pain 3/10 (or comforta ble level) through 04-30-18. 4. Tiny will maintain adequate oxygenation via oximetry with SpO2 >92% by 04/28/18. 5. Tiny will have breath sounds consistent with baseline function throughout stay and r everse airway bronchospasm when indicated. Reevaluate goal by 04/28/18. 6. Liv will demonstrate safe ambulation with cane or FWW 300' x 2 by 05/04/18. STRATEGY TO ACHIEVE GOALS: 1. Conduct hourly rounding during day shift and q2h during shift stacker. Answer call light i n person and/or in a timely manner. 2. Assess vitals w/temps and monitor lab values; notify MD if abnormalities are identified. 3. Assess pain PRN and medicate w/analgesics PRN; re-assess for effectiveness. Educate pt o n non-pharmacologic methods of pain reduction. 4. Monitor saturations via oximetry and titrate to order as indicated. 5. Administer respiratory medications as ordered and adjust with use of respiratory protoco ls. 6. PT intervention, pt education and participation. Outcome: Improving Physical Therapy Plan of Care Treatment Note Summary: Tiny has been participating in physical therapy for treatment of impaired f unctional mobility d/t anascara secondary to liver ETOH cirrhosis, abdominal pain and 30# we ight gain. Emphasis of session included completion of standing strength and conditioning ex ercises at sink, added to HEP instruction with mild increase in repetitions. Pt declined can e trial preferring her bariatric walker. Noticed walker having increased friction/squeaking sound as pt pushed, PT had tech place tennis balls on back posts for smooth pushing, pt appr eciative. Patient demonstrates progress towards functional goals as evidenced by steady gai t with FWW. PT and pt both agree pt demonstrates safety for modified indpt status in her aneesh m and halls with walker during day, pt to call for SBA during night or as prn. PT to contin ue to progress strength/conditioning/activity tolerance/challenges to balance and gait. Remaining barriers to discharge and functional limitations include decreased insight into s afety and deficits, decreased functional activity tolerance, decreased bed mobility, decreas ed functional transfers, decreased functional gait distance, decreased gait velocity, stairs at home, not able to navigate stairs, lives alone and medical status. Tiny will benefit from continued therapeutic intervention to address ongoing impairment s and increase safety and independence with activities necessary for safe discharge. Refer below for specific details regarding functional levels. Physical Therapy Discharge Recommendations are: Recommended discharge disposition: home with assist Post discharge physical therapy recommendation: outpatient therapy, ongoing low intensity therapy Equipment Recommendations: 2 wheeled walker (FWW), bariatric, cane (straight, single point ) Planned Interventions: bed mobility training, gait training, home exercise program, transf er training, strengthening, patient/family education Recommended Frequency: 5 times/wk Patient Status/Goals: Reflects last filed data and may be from multiple contributors. Gait Pt elected to walk in room short distance w/o AD x 10', slow and steady, otherwise used FW W safely in both room and halls, worked on mild increase in rosa, good demonstration of t urns, walker control and balance with walker Level of [place]: supervised, modified independent Assistive Device: 2 wheeled walker (FWW) Distance (feet): 375 Transfers Pt demonstrated safe sit/stand transfers to/from chair and toilet modified indpt Sit-Stand, Level of [place]: modified independent Stand-Sit, Level of [place]: modified independent Aks-Awmju-Mes, Assistive Device: 2 wheeled walker (FWW) Toilet, Level of [place]: modified independent Toilet, Assistive Device: 2 wheeled walker (FWW), grab bars Safety Issues: step length decreased, weight-shifting ability decreased Impairments: impaired balance, strength decreased Bed Mobility Pt sitting up in chair, finishing breathing treatment on arrival Assistive Device: HOB elevated Supine to Sit, Level of [place]: modified independent Sit to Supine, Level of [place]: modified independent Safety Issues: decreased use of legs for bridging/pushing Impairments: strength decreased Balance Good sitting; fair standing with UE support Therapeutic Exercise Completed all standing ex's at sink, focused on light hand support and added 5 reps on all. Recommended progression toward 15-20 reps for HEP, 2x/d Standing exercises: marching, shallow squats, heel raises/toe raises, hip ABDuction, knee f lexion Repetitions: 10 reps x 1 set + 5 reps Functional Endurance Fair for activities. Pt with generalized fatigue, movements slow. ROM WFL; LE's limited by large tissue mass/habitus Strength L LE Strength: 4/5 R LE Strength: 4/5 PT Goal Review Date Most Recent Value STG Review Date 05/10/18 at 05/04/2018 1100 [id number] Goal Most Recent Value STG Status revised at 05/04/2018 1100 STG [place] Level modified independent at 04/27/2018 1206 STG Assistive Device none at 04/27/2018 1206 STG Comments simulate home environment at 04/27/2018 1206 Maa-Fbqes-Lok Goal Most Recent Value STG Status met at 05/05/2018 1306 STG [place] Level modified independent at 04/27/2018 1206 STG Comments with or w/o AD at 04/27/2018 1206 Scf-Qdmza-Arw Goal Most Recent Value STG Status met at 05/04/2018 1100 STG [place] Level modified independent at 04/27/2018 1206 STG Comments with or w/o AD at 04/27/2018 1206 Gait Goal Most Recent Value STG Status progressing at 05/05/2018 1306 STG [place] Level modified independent at 04/27/2018 1206 STG Assistive Device 2 wheeled walker (FWW), bariatric, cane (straight, single point) at 0 04/27/2018 1206 STG Distance (feet) 300' x 2 at 04/27/2018 1206 Additional Goal #1 PT Most Recent Value STG Status progressing at 05/05/2018 1306 STG HEP instruction for strength/conditioning with verbal/demonstrated understanding by pt . at 04/27/2018 1206 Electronically signed by: Antonina Bhagat, PT, 05/05/2018 13:09 lan of Care - Martha Owens RN - 05/05/2018 3:25 AM PSTProblem: Patient Care Overview (Adult) Goal: Care Team Goals & Evaluation PROBLEM-RELATED GOALS: 1. Liv will remain free from falls/injuires through 04-30-18. 2. Liv will remain free from s/sx infection through 04-30-18. 3. Liv's pain will be adequately controlled and she will rate her pain 3/10 (or comforta ble level) through 04-30-18. 4. Tiny will maintain adequate oxygenation via oximetry with SpO2 >92% by 04/28/18. 5. Tiny will have breath sounds consistent with baseline function throughout stay and r everse airway bronchospasm when indicated. Reevaluate goal by 04/28/18. 6. Liv will demonstrate safe ambulation with cane or FWW 300' x 2 by 05/04/18. STRATEGY TO ACHIEVE GOALS: 1. Conduct hourly rounding during day shift and q2h during shift stacker. Answer call light i n person and/or in a timely manner. 2. Assess vitals w/temps and monitor lab values; notify MD if abnormalities are identified. 3. Assess pain PRN and medicate w/analgesics PRN; re-assess for effectiveness. Educate pt o n non-pharmacologic methods of pain reduction. 4. Monitor saturations via oximetry and titrate to order as indicated. 5. Administer respiratory medications as ordered and adjust with use of respiratory protoco ls. 6. PT intervention, pt education and participation. Outcome: Improving Goal Evaluation: Patient has remained free from falls/injury this shift. A&O, calls appropriately. Lymphedem a wraps removed per patient request. Vitals have remained stable, afebrile. C/o pain to RLQ, received oxycodone x 1. Good urine output noted. lan of Care - Antonina Cohen RRT - 05/04/2018 5:58 PM PSTProblem: Patient Care Overview (Adult) Goal: Care Team Goals & Evaluation PROBLEM-RELATED GOALS: 1. Liv will remain free from falls/injuires through 04-30-18. 2. Liv will remain free from s/sx infection through 04-30-18. 3. Liv's pain will be adequately controlled and she will rate her pain 3/10 (or comforta ble level) through 04-30-18. 4. Tiny will maintain adequate oxygenation via oximetry with SpO2 >92% by 04/28/18. 5. Tiny will have breath sounds consistent with baseline function throughout stay and r everse airway bronchospasm when indicated. Reevaluate goal by 04/28/18. 6. Liv will demonstrate safe ambulation with cane or FWW 300' x 2 by 05/04/18. STRATEGY TO ACHIEVE GOALS: 1. Conduct hourly rounding during day shift and q2h during shift stacker. Answer call light i n person and/or in a timely manner. 2. Assess vitals w/temps and monitor lab values; notify MD if abnormalities are identified. 3. Assess pain PRN and medicate w/analgesics PRN; re-assess for effectiveness. Educate pt o n non-pharmacologic methods of pain reduction. 4. Monitor saturations via oximetry and titrate to order as indicated. 5. Administer respiratory medications as ordered and adjust with use of respiratory protoco ls. 6. PT intervention, pt education and participation. Goal Evaluation: Breath sounds diminished. She tolerates nebulizer treatments well and has not indicated a ny PRN treatments. SpO2: 98 % on room air lan of Care - Evelyn Norwood COTA - 05/04/2018 3:26 PM PST Problem: Patient Care Overview (Adult) Goal: Care Team Goals & Evaluation PROBLEM-RELATED GOALS: 1. Liv will remain free from falls/injuires through 04-30-18. 2. Liv will remain free from s/sx infection through 04-30-18. 3. Oscars pain will be adequately controlled and she will rate her pain 3/10 (or comforta ble level) through 04-30-18. 4. Tiny will maintain adequate oxygenation via oximetry with SpO2 >92% by 04/28/18. 5. Tiny will have breath sounds consistent with baseline function throughout stay and r everse airway bronchospasm when indicated. Reevaluate goal by 04/28/18. 6. Liv will demonstrate safe ambulation with cane or FWW 300' x 2 by 05/04/18. STRATEGY TO ACHIEVE GOALS: 1. Conduct hourly rounding during day shift and q2h during shift stacker. Answer call light i n person and/or in a timely manner. 2. Assess vitals w/temps and monitor lab values; notify MD if abnormalities are identified. 3. Assess pain PRN and medicate w/analgesics PRN; re-assess for effectiveness. Educate pt o n non-pharmacologic methods of pain reduction. 4. Monitor saturations via oximetry and titrate to order as indicated. 5. Administer respiratory medications as ordered and adjust with use of respiratory protoco ls. 6. PT intervention, pt education and participation. Occupational Therapy Plan of Care Treatment Note Summary: Tiny has been participating in occupational therapy for treatment of decrea sed independence with ADL and functional mobility following admit for anascara and abdominal pain related to water weight gain.. Emphasis of session included Compression wraps to B LE 's using coban II wraps, A pcs of Kinesio tape has been applied to L thigh for pt to wear ov er night to check for tape tolerance. Oscars skin is clean dry and intact. She reports sh e has not been able to wear the wraps at night d/t pain and discomfort. Which is why we are trying the kinesio tape to assist with edema management. Educated Pt And Paris (pt's nurse ) that if her legs start to hurt she should attempt a short walk to see if this helps to red uce pain, if it does leave them on, if it does not then remove wraps. Patient demonstrate s progress towards functional goals as evidenced by tolerating Coban II wraps. Remaining barriers to discharge and functional limitations include decreased insight into s afety and deficits, decreased functional activity tolerance, decreased bed mobility, decreas ed functional transfers, decreased ability to perform ADLs, decreased ability to perform IAD Ls, decreased ability to perform medication management, demonstrating need for 06/10 supervis ion, not yet able to mobilize at level safe for home discharge and medical status. Tiny will benefit from continued therapeutic intervention to address ongoing impairment s and increase safety and independence with activities necessary for safe discharge. Refer below for specific details regarding functional levels. Occupational Therapy Discharge Recommendations are: Recommended discharge disposition: home with assist, [place] Post discharge occupational therapy recommendation: ongoing low intensity therapy, home he alth Equipment Recommendations: Planned Interventions:ADL retraining, balance training, bed mobility training, functional e ndurance training, patient/family education, ROM (Range of Motion), strengthening, transfer training, other (see comments) (edema management techniques) Recommended Frequency: daily Patient Status/Goals: Reflects last filed data and may be from multiple contributors. OT Goal Review Date Most Recent Value STG Review Date 05/09/18 at 05/02/2018 1407 Grooming Goal Most Recent Value STG Status progressing at 05/04/2018 0940 STG [place] Level modified independent at 05/02/2018 1407 STG Position standing at 05/02/2018 1407 LB Dressing Goal Most Recent Value STG Status progressing at 05/04/2018 0940 STG [place] Level modified independent at 05/02/2018 1407 Additional Goals #1 OT Most Recent Value STG Status continued at 05/04/2018 0940 STG Pt. will tolerate BLE compression wraps and other edema management techniques includin g MLM for edema management at 05/02/2018 1407 Electronically signed by: ANAND Bledsoe, 05/04/2018 17:10 lan of Care - Paris Olivier RN - 05/04/2018 3:04 PM PSTProblem: Patient Care Overview (Adult) Goal: Care Team Goals & Evaluation PROBLEM-RELATED GOALS: 1. Liv will remain free from falls/injuires through 04-30-18. 2. Liv will remain free from s/sx infection through 04-30-18. 3. Liv's pain will be adequately controlled and she will rate her pain 3/10 (or comforta ble level) through 04-30-18. 4. Tiny will maintain adequate oxygenation via oximetry with SpO2 >92% by 04/28/18. 5. Tiny will have breath sounds consistent with baseline function throughout stay and r everse airway bronchospasm when indicated. Reevaluate goal by 04/28/18. 6. Liv will demonstrate safe ambulation with cane or FWW 300' x 2 by 05/04/18. STRATEGY TO ACHIEVE GOALS: 1. Conduct hourly rounding during day shift and q2h during shift stacker. Answer call light i n person and/or in a timely manner. 2. Assess vitals w/temps and monitor lab values; notify MD if abnormalities are identified. 3. Assess pain PRN and medicate w/analgesics PRN; re-assess for effectiveness. Educate pt o n non-pharmacologic methods of pain reduction. 4. Monitor saturations via oximetry and titrate to order as indicated. 5. Administer respiratory medications as ordered and adjust with use of respiratory protoco ls. 6. PT intervention, pt education and participation. Outcome: Improving Goal Evaluation: Liv is A/O. VSS. IV to L distal wrist, S/L. C/O chronic pain to lower back and ABD. Oxy giving to relief pain. C/O nausea zofran giving. Edema to abd. +2 And BLE. +3. Diet fat and cholest. 2 g. Na. And 2000 ml/day fluid restriction. Bilateral Chronic numbness to the the t oes. Eyes, yellow sclera. BLE wraps. Ambulatory to the bathroom with walker and guard. Parti cipated with OT and PT today. No falls or injuries. lan of Care - Angelina Whaley Chaplain - 05/04/2018 12:03 PM PSTProblem: Patient Care Overview (Adult) Goal: Care Team Goals & Evaluation PROBLEM-RELATED GOALS: 1. Liv will remain free from falls/injuires through 04-30-18. 2. Liv will remain free from s/sx infection through 04-30-18. 3. Liv's pain will be adequately controlled and she will rate her pain 3/10 (or comforta ble level) through 04-30-18. 4. Tiny will maintain adequate oxygenation via oximetry with SpO2 >92% by 04/28/18. 5. Tiny will have breath sounds consistent with baseline function throughout stay and r everse airway bronchospasm when indicated. Reevaluate goal by 04/28/18. 6. Liv will demonstrate safe ambulation with cane or FWW 300' x 2 by 05/04/18. STRATEGY TO ACHIEVE GOALS: 1. Conduct hourly rounding during day shift and q2h during shift stacker. Answer call light i n person and/or in a timely manner. 2. Assess vitals w/temps and monitor lab values; notify MD if abnormalities are identified. 3. Assess pain PRN and medicate w/analgesics PRN; re-assess for effectiveness. Educate pt o n non-pharmacologic methods of pain reduction. 4. Monitor saturations via oximetry and titrate to order as indicated. 5. Administer respiratory medications as ordered and adjust with use of respiratory protoco ls. 6. PT intervention, pt education and participation. Spiritual Care Tiny Campuzano is a 42 y.o. female who is admitted for Anasarca [R60.1] Acute systolic congestive heart failure (HCC) [I50.21] Abdominal pain, chronic, epigastric [R10.13, G89.29] Decompensated hepatic cirrhosis (HCC) [K72.90] Hypervolemia, unspecified hypervolemia type [E87.70] 3+ pitting edema [R60.9]. Head Up Operator visit was part of routine rounding. Spiritual Evaluation: The patient requested a follow-up chapel visit. She welcomed the opportunity to participat e in the Islam communion service offered by [facility]. She is also grateful for her sister briseida nicolas has visited her this morning and her aunt who should visit this afternoon. She expects t o be here several more days and is accepting of that plan. Spiritual Interventions: The apartment groundskeeper brought the patient to [facility] chapel services and offered care. Spiritual Outcomes: The patient appreciated taoist support and mormon interaction. Spiritual Goals/Follow-up: Follow up as needed or requested with chapel attendance. lan of Care - Imani, Kyleigh Babin, PT - 05/04/2018 11:00 AM PSTFormatting of this note might be different fro donald the original. Problem: Patient Care Overview (Adult) Goal: Care Team Goals & Evaluation PROBLEM-RELATED GOALS: 1. Liv will remain free from falls/injuires through 04-30-18. 2. Liv will remain free from s/sx infection through 04-30-18. 3. Liv's pain will be adequately controlled and she will rate her pain 3/10 (or comforta ble level) through 04-30-18. 4. Tiny will maintain adequate oxygenation via oximetry with SpO2 >92% by 04/28/18. 5. Tiny will have breath sounds consistent with baseline function throughout stay and r everse airway bronchospasm when indicated. Reevaluate goal by 04/28/18. 6. Liv will demonstrate safe ambulation with cane or FWW 300' x 2 by 05/04/18. STRATEGY TO ACHIEVE GOALS: 1. Conduct hourly rounding during day shift and q2h during shift stacker. Answer call light i n person and/or in a timely manner. 2. Assess vitals w/temps and monitor lab values; notify MD if abnormalities are identified. 3. Assess pain PRN and medicate w/analgesics PRN; re-assess for effectiveness. Educate pt o n non-pharmacologic methods of pain reduction. 4. Monitor saturations via oximetry and titrate to order as indicated. 5. Administer respiratory medications as ordered and adjust with use of respiratory protoco ls. 6. PT intervention, pt education and participation. Physical Therapy Plan of Care Treatment Note Summary: Tiny has been participating in physical therapy for treatment of impaired f unctional mobility d/t anascara secondary to liver ETOH cirrhosis, abdominal pain and 30# we ight gain. Emphasis of session included transfers and gait. Patient demonstrates progress towards functional goals as evidenced by Increased functional capacity with gait using walk er.Pt to benefit from trial with cane with LEs wrapped. Remaining barriers to discharge and functional limitations include decreased functional act ivity tolerance, decreased bed mobility, decreased functional gait distance, decreased gait velocity, not yet able to mobilize at level safe for home discharge and medical status. Tiny will benefit from continued therapeutic intervention to address ongoing impairment s and increase safety and independence with activities necessary for safe discharge. Refer below for specific details regarding functional levels. Physical Therapy Discharge Recommendations are: Recommended discharge disposition: home with assist Post discharge physical therapy recommendation: outpatient therapy, ongoing low intensity therapy Equipment Recommendations: 2 wheeled walker (FWW), bariatric, cane (straight, single point ) Planned Interventions: bed mobility training, gait training, home exercise program, transf er training, strengthening, patient/family education Recommended Frequency: 5 times/wk Patient Status/Goals: Reflects last filed data and may be from multiple contributors. Gait Level of [place]: supervised Assistive Device: 2 wheeled walker (FWW) Distance (feet): 300 Transfers Pt able to perform sit <> stand from regular height surfaces with increased time and effort but no physical assist required. Sit-Stand, Level of [place]: modified independent Stand-Sit, Level of [place]: modified independent [id number]-[id number]-Fgl, Assistive Device: 2 wheeled walker (FWW) Safety Issues: sequencing ability decreased, step length decreased, weight-shifting ability decreased Impairments: impaired balance, strength decreased Bed Mobility pt sitting up in chair Assistive Device: HOB elevated Balance sitting is good static stand is good dynamic stand is faisr Therapeutic Exercise time did not allow for ex as pt wanted to go to [facility] Functional Endurance fair ROM WFL; LE's limited by large tissue mass/habitus PT Goal Review Date Most Recent Value STG Review Date 05/10/18 at 05/04/2018 1100 [id number] Goal Most Recent Value STG Status revised at 05/04/2018 1100 STG [place] Level modified independent at 04/27/2018 1206 STG Assistive Device none at 04/27/2018 1206 STG Comments simulate home environment at 04/27/2018 1206 [id number]-Wmp Goal Most Recent Value STG Status revised at 05/04/2018 1100 STG [place] Level modified independent at 04/27/2018 1206 STG Comments with or w/o AD at 04/27/2018 1206 Wtu-[id number]-Djj Goal Most Recent Value STG Status met at 05/04/2018 1100 STG [place] Level modified independent at 04/27/2018 1206 STG Comments with or w/o AD at 04/27/2018 1206 Gait Goal Most Recent Value STG Status revised at 05/04/2018 1100 STG [place] Level modified independent at 04/27/2018 1206 STG Assistive Device 2 wheeled walker (FWW), bariatric, cane (straight, single point) at 0 04/27/2018 1206 STG Distance (feet) 300' x 2 at 04/27/2018 1206 Additional Goal #1 PT Most Recent Value STG Status revised at 05/04/2018 1100 STG HEP instruction for strength/conditioning with verbal/demonstrated understanding by pt . at 04/27/2018 1206 Electronically signed by: Kyleigh Diallo PT, 05/04/2018 15:24 Goal Evaluation: lan of Care - ellyn Ordaz u, ANAND Gordon - 05/04/2018 9:40 AM PST Problem: Patient Care Overview (Adult) Goal: Care Team Goals & Evaluation PROBLEM-RELATED GOALS: 1. Liv will remain free from falls/injuires through 04-30-18. 2. Liv will remain free from s/sx infection through 04-30-18. 3. Liv's pain will be adequately controlled and she will rate her pain 3/10 (or comforta ble level) through 04-30-18. 4. Tiny will maintain adequate oxygenation via oximetry with SpO2 >92% by 04/28/18. 5. Tiny will have breath sounds consistent with baseline function throughout stay and r everse airway bronchospasm when indicated. Reevaluate goal by 04/28/18. 6. Liv will demonstrate safe ambulation with cane or FWW 300' x 2 by 05/04/18. STRATEGY TO ACHIEVE GOALS: 1. Conduct hourly rounding during day shift and q2h during shift stacker. Answer call light i n person and/or in a timely manner. 2. Assess vitals w/temps and monitor lab values; notify MD if abnormalities are identified. 3. Assess pain PRN and medicate w/analgesics PRN; re-assess for effectiveness. Educate pt o n non-pharmacologic methods of pain reduction. 4. Monitor saturations via oximetry and titrate to order as indicated. 5. Administer respiratory medications as ordered and adjust with use of respiratory protoco ls. 6. PT intervention, pt education and participation. Occupational Therapy Plan of Care Treatment Note Summary: Tiny has been participating in occupational therapy for treatment of decrea sed independence with ADL and functional mobility following admit for anascara and abdominal pain related to water weight gain.. Emphasis of session included self care tasks. Patient demonstrates progress towards functional goals as evidenced by completing self care tasks w ith Min A this session. Remaining barriers to discharge and functional limitations include decreased insight into s afety and deficits, decreased functional activity tolerance, decreased bed mobility, decreas ed functional transfers, decreased ability to perform ADLs, decreased ability to perform IAD Ls, decreased ability to perform medication management, demonstrating need for 24/7 supervis ion, unsafe discharge disposition, not yet able to mobilize at level safe for home discharge and medical status. Tiny will benefit from continued therapeutic intervention to address ongoing impairment s and increase safety and independence with activities necessary for safe discharge. Refer below for specific details regarding functional levels. Occupational Therapy Discharge Recommendations are: Recommended discharge disposition: home with assist, [place] [facility] Post discharge occupational therapy recommendation: ongoing low intensity therapy, home he alth Equipment Recommendations: Planned Interventions:ADL retraining, balance training, bed mobility training, functional e ndurance training, patient/family education, ROM (Range of Motion), strengthening, transfer training, other (see comments) (edema management techniques) Recommended Frequency: daily Patient Status/Goals: Reflects last filed data and may be from multiple contributors. ADLs stood at sink to complete sponge bath Bathing, Level of [place]: supervised, set up required Assistive Device: none Bathing Assess/Train, Position: standing Bathing Impairments: strength decreased, impaired functional endurance/activity tolerance [facility], donned a clean with assist to tie. she managed her pants off/on over hips with toileting and during sponge bath. LB Dressing, Level of [place]: stand by assist Assistive Device: none LB Dressing Assess/Train, Position: standing LB Dressing Impairments: decreased flexibility, strength decreased, impaired balance, pain, impaired functional endurance/activity tolerance No physical assistance required Toileting, Level of [place]: supervised Assistive Device: grab bar Toileting Assess/Train, Position: sitting Toileting Impairments: decreased flexibility, strength decreased, impaired balance, pain, m otor control impaired, impaired functional endurance/activity tolerance leaning against counter for support Grooming, Level of [place]: supervised Assistive Device: none Grooming Assess/Train, Position: supported standing Grooming Impairments: strength decreased, impaired balance, impaired functional endurance/a ctivity tolerance Transfers Pt walked loop in hallway, ~220 ft. Reported this was the first time she had been up to [facility] today. Increased time, but no physical assistance required and no need for restbreak Sit-Stand, Level of [place]: modified independent Stand-Sit, Level of [place]: modified independent Orp-Uazoe-Rnt, Assistive Device: 2 wheeled walker (FWW), none Toilet, Level of [place]: supervised Toilet, Assistive Device: 2 wheeled walker (FWW), grab bars Safety Issues: step length decreased, weight-shifting ability decreased Impairments: coordination impaired, impaired balance OT Goal Review Date Most Recent Value STG Review Date 05/09/18 at 05/02/2018 1407 Grooming Goal Most Recent Value STG Status progressing at 05/04/2018 0940 STG [place] Level modified independent at 05/02/2018 1407 STG Position standing at 05/02/2018 1407 LB Dressing Goal Most Recent Value STG Status progressing at 05/04/2018 0940 STG [place] Level modified independent at 05/02/2018 1407 Additional Goals #1 OT Most Recent Value STG Status continued at 05/04/2018 0940 STG Pt. will tolerate BLE compression wraps and other edema management techniques includin g MLM for edema management at 05/02/2018 1407 Electronically signed by: ANAND Bledsoe, 05/04/2018 12:19 lan of Care - oJ macdonald, BROTH MIXER - 05/04/2018 5:58 AM PSTProblem: Patient Care Overview (Adult) Goal: Care Team Goals & Evaluation PROBLEM-RELATED GOALS: 1. Liv will remain free from falls/injuires through 04-30-18. 2. Liv will remain free from s/sx infection through 04-30-18. 3. Liv's pain will be adequately controlled and she will rate her pain 3/10 (or comforta ble level) through 04-30-18. 4. Tiny will maintain adequate oxygenation via oximetry with SpO2 >92% by 04/28/18. 5. Tiny will have breath sounds consistent with baseline function throughout stay and r everse airway bronchospasm when indicated. Reevaluate goal by 04/28/18. 6. Liv will demonstrate safe ambulation with cane or FWW 300' x 2 by 05/04/18. STRATEGY TO ACHIEVE GOALS: 1. Conduct hourly rounding during day shift and q2h during shift stacker. Answer call light i n person and/or in a timely manner. 2. Assess vitals w/temps and monitor lab values; notify MD if abnormalities are identified. 3. Assess pain PRN and medicate w/analgesics PRN; re-assess for effectiveness. Educate pt o n non-pharmacologic methods of pain reduction. 4. Monitor saturations via oximetry and titrate to order as indicated. 5. Administer respiratory medications as ordered and adjust with use of respiratory protoco ls. 6. PT intervention, pt education and participation. Goal Evaluation: Tiny oxygen saturation is SpO2: 96 % on room air and a heart rate of 81. Breath sounds are clear and post breathing treatment breath sounds are no change. Pt has a good, nonproductive cough. Pt's respirations are depth regular, pat tern regular, dyspnea on exertion, no shortness of breath reported with expansion symmetric, no use of accessory muscles, no retractions. lan of Care - Jessica zamora, Jo Nicolas RRT - 05/04/2018 5:49 AM PSTProblem: Patient Care Overview (Adult) Goal: Care Team Goals & Evaluation PROBLEM-RELATED GOALS: 1. Liv will remain free from falls/injuires through 04-30-18. 2. Liv will remain free from s/sx infection through 04-30-18. 3. Liv's pain will be adequately controlled and she will rate her pain 3/10 (or comforta ble level) through 04-30-18. 4. Tiny will maintain adequate oxygenation via oximetry with SpO2 >92% by 04/28/18. 5. Tiny will have breath sounds consistent with baseline function throughout stay and r everse airway bronchospasm when indicated. Reevaluate goal by 04/28/18. 6. Liv will demonstrate safe ambulation with cane or FWW 300' x 2 by 05/04/18. STRATEGY TO ACHIEVE GOALS: 1. Conduct hourly rounding during day shift and q2h during shift stacker. Answer call light i n person and/or in a timely manner. 2. Assess vitals w/temps and monitor lab values; notify MD if abnormalities are identified. 3. Assess pain PRN and medicate w/analgesics PRN; re-assess for effectiveness. Educate pt o n non-pharmacologic methods of pain reduction. 4. Monitor saturations via oximetry and titrate to order as indicated. 5. Administer respiratory medications as ordered and adjust with use of respiratory protoco ls. 6. PT intervention, pt education and participation. Goal Evaluation: Tiny oxygen saturation is SpO2: 96 % on room air and a heart rate of 81. Breath sounds are clear and post breathing treatment breath sounds are no change. Pt has a good, nonproductive cough. Pt's respirations are depth regular, pat tern regular, dyspnea on exertion, no shortness of breath reported with expansion symmetric, no use of accessory muscles, no retractions. lan of [facility] Filomena RN - 05/04/2018 4:34 AM PSTProblem: Patient Care Overview (Adult) Goal: Care Team Goals & Evaluation PROBLEM-RELATED GOALS: 1. Liv will remain free from falls/injuires through 04-30-18. 2. Liv will remain free from s/sx infection through 04-30-18. 3. Liv's pain will be adequately controlled and she will rate her pain 3/10 (or comforta ble level) through 04-30-18. 4. Tiny will maintain adequate oxygenation via oximetry with SpO2 >92% by 04/28/18. 5. Tiny will have breath sounds consistent with baseline function throughout stay and r everse airway bronchospasm when indicated. Reevaluate goal by 04/28/18. 6. Liv will demonstrate safe ambulation with cane or FWW 300' x 2 by 05/04/18. STRATEGY TO ACHIEVE GOALS: 1. Conduct hourly rounding during day shift and q2h during shift stacker. Answer call light i n person and/or in a timely manner. 2. Assess vitals w/temps and monitor lab values; notify MD if abnormalities are identified. 3. Assess pain PRN and medicate w/analgesics PRN; re-assess for effectiveness. Educate pt o n non-pharmacologic methods of pain reduction. 4. Monitor saturations via oximetry and titrate to order as indicated. 5. Administer respiratory medications as ordered and adjust with use of respiratory protoco ls. 6. PT intervention, pt education and participation. Goal Evaluation: Pt is A/Ox4. Pt complains of pain in R lower abdomen. Given Oxycodone 5mg. Pt has edema in BLE and stomach. Pt VSS. O2 saturation is at 96% and above on room air. Breath sounds are c lear. Pt remained free from falls this shift. Pt ambulates in room with 2WW, modified evonne menjivar. lan of Care - RosBarbara morton, PT - 05/03/2018 4:05 PM PSTFormatting of this note might be different from the o riginal. Problem: Patient Care Overview (Adult) Goal: Care Team Goals & Evaluation PROBLEM-RELATED GOALS: 1. Liv will remain free from falls/injuires through 04-30-18. 2. Liv will remain free from s/sx infection through 04-30-18. 3. Liv's pain will be adequately controlled and she will rate her pain 3/10 (or comforta ble level) through 04-30-18. 4. Tiny will maintain adequate oxygenation via oximetry with SpO2 >92% by 04/28/18. 5. Tiny will have breath sounds consistent with baseline function throughout stay and r everse airway bronchospasm when indicated. Reevaluate goal by 04/28/18. 6. Liv will demonstrate safe ambulation with cane or FWW 300' x 2 by 05/04/18. STRATEGY TO ACHIEVE GOALS: 1. Conduct hourly rounding during day shift and q2h during shift stacker. Answer call light i n person and/or in a timely manner. 2. Assess vitals w/temps and monitor lab values; notify MD if abnormalities are identified. 3. Assess pain PRN and medicate w/analgesics PRN; re-assess for effectiveness. Educate pt o n non-pharmacologic methods of pain reduction. 4. Monitor saturations via oximetry and titrate to order as indicated. 5. Administer respiratory medications as ordered and adjust with use of respiratory protoco ls. 6. PT intervention, pt education and participation. Outcome: Improving Physical Therapy Plan of Care Treatment Note Summary: Tiny has been participating in physical therapy for treatment of impaired f unctional mobility d/t anascara secondary to liver ETOH cirrhosis, abdominal pain and 30# we ight gain. Pt presents in bed; just finished with her breathing treatment and her sister and family are just leaving after an suzanne. 1 hr visit. Pt reports that she still has pain in her back and belly (10) but is less nauseous this p.m. Emphasis of session included functiona l mobility, gait and exercise training. Patient demonstrates progress towards functional goa ls as evidenced by demonstrating improving movement patterns and improving recall of exercis es. Still requires occasional cues for coordinating breathing with movement and improved jayjay hnique during standing exercises. Plan to do re-assessment tomorrow. Refer below for specific details regarding functional levels. Physical Therapy Discharge Recommendations are: Recommended discharge disposition: home with assist Post discharge physical therapy recommendation: outpatient therapy, ongoing low intensity therapy Equipment Recommendations: 2 wheeled walker (FWW), bariatric, cane (straight, single point ) Planned Interventions: bed mobility training, gait training, home exercise program, transf er training, strengthening, patient/family education Recommended Frequency: 5 times/wk Patient Status/Goals: Reflects last filed data and may be from multiple contributors. Gait Pt still with slow gait speed (.35 m/s during 6MWT) and decreased step length and clearance . Has mild SOB with exertion but no LOB and good vital sign response to mobility. Level of [place]: supervised Assistive Device: 2 wheeled walker (FWW) Distance (feet): suzanne. 275 ft Transfers Pt able to perform sit <> stand from regular height surfaces with increased time and effort but no physical assist required. Sit-Stand, Level of [place]: modified independent Stand-Sit, Level of [place]: modified independent [id number], Assistive Device: none, 2 wheeled walker (FWW) Toilet, Level of [place]: supervised Toilet, Assistive Device: grab bars Safety Issues: sequencing ability decreased, step length decreased, weight-shifting ability decreased Impairments: coordination impaired, impaired balance Bed Mobility Increased time and effort, no phys A needed Assistive Device: HOB elevated Supine to Sit, Level of [place]: modified independent Sit to Supine, Level of [place]: modified independent Safety Issues: decreased use of legs for bridging/pushing Impairments: strength decreased Therapeutic Exercise Pt using ex handout and was able to recall ex with use of this; only required 2 cues for im proved technique. Standing exercises: marching, shallow squats, heel raises/toe raises, hip ABDuction, knee f lexion Repetitions: 10 reps each PT Goal Review Date Most Recent Value STG Review Date 05/04/18 at 04/27/2018 1206 [id number] Goal Most Recent Value STG Status met at 04/28/2018 1145 STG [place] Level modified independent at 04/27/2018 1206 STG Assistive Device none at 04/27/2018 1206 STG Comments simulate home environment at 04/27/2018 1206 [id number] Goal Most Recent Value STG Status met at 05/03/2018 1608 STG [place] Level modified independent at 04/27/2018 1206 STG Comments with or w/o AD at 04/27/2018 1206 [id number] Goal Most Recent Value STG Status met at 05/03/2018 1608 STG [place] Level modified independent at 04/27/2018 1206 STG Comments with or w/o AD at 04/27/2018 1206 Gait Goal Most Recent Value STG Status progressing at 05/03/2018 1608 STG [place] Level modified independent at 04/27/2018 1206 STG Assistive Device 2 wheeled walker (FWW), bariatric, cane (straight, single point) at 0 04/27/2018 1206 STG Distance (feet) 300' x 2 at 04/27/2018 1206 Additional Goal #1 PT Most Recent Value STG Status progressing at 05/03/2018 1608 STG HEP instruction for strength/conditioning with verbal/demonstrated understanding by pt . at 04/27/2018 1206 Electronically signed by: Barbara Sommer, PT, 05/03/2018 16:13 lan of Care - Adk mauri, SHASHI Medina - 05/03/2018 3:53 PM PSTProblem: Discharge Planning Goal: Patient will be discharged in a safe manner Outcome: Improving This ed case manager went to follow up with patient and she was just getting started with PT. Attempted to call Luis Antonio, patients [facility] RN at [facility] [phone]. Apparently , [employer] phone system is down and this CM was sent to the [employer] VM--Left a VM asking her to call this CM back. This CM will re-visit with patient to further discuss any discharge needs tomorrow. Electro nically signed by: SHASHI Ulrich 05/03/2018 15:53 lan of Care - Bnoita choi, Lorraine Zamora RN - 05/03/2018 3:13 PM PSTProblem: Patient Care Overview (Adult) Goal: Care Team Goals & Evaluation PROBLEM-RELATED GOALS: 1. Liv will remain free from falls/injuires through 04-30-18. 2. Liv will remain free from s/sx infection through 04-30-18. 3. Oscars pain will be adequately controlled and she will rate her pain 3/10 (or comforta ble level) through 04-30-18. 4. Tiny will maintain adequate oxygenation via oximetry with SpO2 >92% by 04/28/18. 5. Tiny will have breath sounds consistent with baseline function throughout stay and r everse airway bronchospasm when indicated. Reevaluate goal by 04/28/18. 6. Liv will demonstrate safe ambulation with cane or FWW 300' x 2 by 05/04/18. STRATEGY TO ACHIEVE GOALS: 1. Conduct hourly rounding during day shift and q2h during shift stacker. Answer call light i n person and/or in a timely manner. 2. Assess vitals w/temps and monitor lab values; notify MD if abnormalities are identified. 3. Assess pain PRN and medicate w/analgesics PRN; re-assess for effectiveness. Educate pt o n non-pharmacologic methods of pain reduction. 4. Monitor saturations via oximetry and titrate to order as indicated. 5. Administer respiratory medications as ordered and adjust with use of respiratory protoco ls. 6. PT intervention, pt education and participation. Outcome: Improving Goal Evaluation: Liv is alert and oriented. Reports abdomainl pain, medicated with 5 mg PO oxycodone wit h adequate relief. Also reported having nausea throughout shift, medicated with PO zofran wi th some relief. She is up ambulating with SBA and walker. Reinforced education on following fluid restriction. Lymphedema wraps in place, tolerating well. VSS. Adequate output. Call li ght and bed alarm in place, makes needs known. lan of Care - Romaine Espino, OT - 05/03/2018 1:49 PM PSTFormatting of this note might be different from th e original. Problem: Patient Care Overview (Adult) Goal: Care Team Goals & Evaluation PROBLEM-RELATED GOALS: 1. Liv will remain free from falls/injuires through 04-30-18. 2. Liv will remain free from s/sx infection through 04-30-18. 3. Oscars pain will be adequately controlled and she will rate her pain 3/10 (or comforta ble level) through 04-30-18. 4. Tiny will maintain adequate oxygenation via oximetry with SpO2 >92% by 04/28/18. 5. Tiny will have breath sounds consistent with baseline function throughout stay and r everse airway bronchospasm when indicated. Reevaluate goal by 04/28/18. 6. Liv will demonstrate safe ambulation with cane or FWW 300' x 2 by 05/04/18. STRATEGY TO ACHIEVE GOALS: 1. Conduct hourly rounding during day shift and q2h during shift stacker. Answer call light i n person and/or in a timely manner. 2. Assess vitals w/temps and monitor lab values; notify MD if abnormalities are identified. 3. Assess pain PRN and medicate w/analgesics PRN; re-assess for effectiveness. Educate pt o n non-pharmacologic methods of pain reduction. 4. Monitor saturations via oximetry and titrate to order as indicated. 5. Administer respiratory medications as ordered and adjust with use of respiratory protoco ls. 6. PT intervention, pt education and participation. Occupational Therapy Plan of Care Treatment Note Summary: Tiny has been participating in occupational therapy for treatment of decrea sed independence with ADL and functional mobility following admit for anascara and abdominal pain related to water weight gain. Emphasis of session included functional mobility and pa rticipation in ADL. Coban II wraps in place on BLE. Pt. denied discomfort with wraps, but pe r RN note was complaining of discomfort previous day. Pt. states they were "itchy" initially , but that now she is used to them. Pt and RN agreeable to having wraps removed should they become uncomfortable. Plan to change wraps tomorrow. Patient demonstrates progress towards f unctional goals as evidenced by agreeable to therapy and participation in mobility/ADL. Remaining barriers to discharge and functional limitations include decreased insight into s afety and deficits, decreased functional activity tolerance, decreased bed mobility, decreas ed functional transfers, decreased ability to perform ADLs, not yet able to mobilize at [facility] for home discharge and medical status. Tiny will benefit from continued therapeutic intervention to address ongoing impairment s and increase safety and independence with activities necessary for safe discharge. Refer below for specific details regarding functional levels. Occupational Therapy Discharge Recommendations are: Recommended discharge disposition: home with assist, [facility] Post discharge occupational therapy recommendation: ongoing low intensity therapy, outpati ent therapy Equipment Recommendations: Planned Interventions:ADL retraining, balance training, bed mobility training, functional e ndurance training, patient/family education, ROM (Range of Motion), strengthening, transfer training, other (see comments) (edema management techniques) Recommended Frequency: daily Patient Status/Goals: Reflects last filed data and may be from multiple contributors. ADLs Pt. donned pants with assist to thread B feet LB Dressing, Level of [place]: maximal assist (25% patient effort) Assistive Device: none LB Dressing Assess/Train, Position: sitting, standing LB Dressing Impairments: decreased flexibility, strength decreased, impaired balance, pain, impaired functional endurance/activity tolerance No physical assistance required Toileting, Level of [place]: supervised Assistive Device: grab bar Toileting Assess/Train, Position: sitting Toileting Impairments: decreased flexibility, strength decreased, impaired balance, pain, m otor control impaired, impaired functional endurance/activity tolerance Bed Mobility Sit to Supine, Level of [place]: modified independent Safety Issues: decreased use of legs for bridging/pushing Impairments: coordination impaired Transfers Pt walked loop in hallway, ~220 ft. Reported this was the first time she had been up to Expert today. Increased time, but no physical assistance required and no need for restbreak Sit-Stand, Level of [place]: modified independent Stand-Sit, Level of [place]: modified independent [id number], Assistive Device: none, 2 wheeled walker (FWW) Toilet, Level of [place]: supervised Toilet, Assistive Device: grab bars Safety Issues: sequencing ability decreased, step length decreased, weight-shifting ability decreased Impairments: coordination impaired, impaired balance OT Goal Review Date Most Recent Value STG Review Date 05/09/18 at 05/02/2018 1407 Grooming Goal Most Recent Value STG Status new at 05/02/2018 1407 STG [place] Level modified independent at 05/02/2018 1407 STG Position standing at 05/02/2018 1407 LB Dressing Goal Most Recent Value STG Status progressing at 05/03/2018 1349 STG [place] Level modified independent at 05/02/2018 1407 Additional Goals #1 OT Most Recent Value STG Status continued at 05/03/2018 1349 STG Pt. will tolerate BLE compression wraps and other edema management techniques includin g MLM for edema management at 05/02/2018 1407 Electronically signed by: Romaine Romero OT, 05/03/2018 15:49 lan of Care - Barbara Aiken, PT - 05/03/2018 8:53 AM PSTProblem: Patient Care Overview (Adult) Goal: Care Team Goals & Evaluation PROBLEM-RELATED GOALS: 1. Liv will remain free from falls/injuires through 04-30-18. 2. Liv will remain free from s/sx infection through 04-30-18. 3. Liv's pain will be adequately controlled and she will rate her pain 3/10 (or comforta ble level) through 04-30-18. 4. Tiny will maintain adequate oxygenation via oximetry with SpO2 >92% by 04/28/18. 5. Tiny will have breath sounds consistent with baseline function throughout stay and r everse airway bronchospasm when indicated. Reevaluate goal by 04/28/18. 6. Liv will demonstrate safe ambulation with cane or FWW 300' x 2 by 05/04/18. STRATEGY TO ACHIEVE GOALS: 1. Conduct hourly rounding during day shift and q2h during shift stacker. Answer call light i n person and/or in a timely manner. 2. Assess vitals w/temps and monitor lab values; notify MD if abnormalities are identified. 3. Assess pain PRN and medicate w/analgesics PRN; re-assess for effectiveness. Educate pt o n non-pharmacologic methods of pain reduction. 4. Monitor saturations via oximetry and titrate to order as indicated. 5. Administer respiratory medications as ordered and adjust with use of respiratory protoco ls. 6. PT intervention, pt education and participation. Therapy Plan of Care Missed Visit Note Patient Information Patient Name: Tiny Campuzano Date of : 1975 Age: 42 y.o. The patient was unable to be seen for today's scheduled visit due to nausea and pain.Says s he cannot participate with PT. RN in room and aware. Plan: Check back with pt later as schedule permits. Electronically signed by: Barbara Sommer, PT, 05/03/2018 9:42 lan of Care - Yue Crawford RN - 05/03/2018 6:26 AM PSTProblem: Patient Care Overview (Adult) Goal: Care Team Goals & Evaluation PROBLEM-RELATED GOALS: 1. Liv will remain free from falls/injuires through 04-30-18. 2. Liv will remain free from s/sx infection through 04-30-18. 3. Oscars pain will be adequately controlled and she will rate her pain 3/10 (or comforta ble level) through 04-30-18. 4. Tiny will maintain adequate oxygenation via oximetry with SpO2 >92% by 04/28/18. 5. Tiny will have breath sounds consistent with baseline function throughout stay and r everse airway bronchospasm when indicated. Reevaluate goal by 04/28/18. 6. Liv will demonstrate safe ambulation with cane or FWW 300' x 2 by 05/04/18. STRATEGY TO ACHIEVE GOALS: 1. Conduct hourly rounding during day shift and q2h during shift stacker. Answer call light i n person and/or in a timely manner. 2. Assess vitals w/temps and monitor lab values; notify MD if abnormalities are identified. 3. Assess pain PRN and medicate w/analgesics PRN; re-assess for effectiveness. Educate pt o n non-pharmacologic methods of pain reduction. 4. Monitor saturations via oximetry and titrate to order as indicated. 5. Administer respiratory medications as ordered and adjust with use of respiratory protoco ls. 6. PT intervention, pt education and participation. Goal Evaluation: Pt A/)x4, free from falls, SBA w/2ww. C/O abd pain, tx w/prn oxy x2 and heat pack x1. Pt c omplained wraps too tight, so outer laer remover per OT note. O2 mid - high 90s. Infectious s/sx free. Otherwise pt slept well overnight. lan of Care - Yani Sondra coffey, BROTH MIXER - 05/03/2018 4:28 AM PSTProblem: Patient Care Overview (Adult) Goal: Care Team Goals & Evaluation PROBLEM-RELATED GOALS: 1. Liv will remain free from falls/injuires through 04-30-18. 2. Liv will remain free from s/sx infection through 04-30-18. 3. [place]sc[place] pain will be adequately controlled and she will rate her pain 3/10 (or comforta ble level) through 04-30-18. 4. Tiny will maintain adequate oxygenation via oximetry with SpO2 >92% by 04/28/18. 5. Tiny will have breath sounds consistent with baseline function throughout stay and r everse airway bronchospasm when indicated. Reevaluate goal by 04/28/18. 6. Liv will demonstrate safe ambulation with cane or FWW 300' x 2 by 05/04/18. STRATEGY TO ACHIEVE GOALS: 1. Conduct hourly rounding during day shift and q2h during shift stacker. Answer call light i n person and/or in a timely manner. 2. Assess vitals w/temps and monitor lab values; notify MD if abnormalities are identified. 3. Assess pain PRN and medicate w/analgesics PRN; re-assess for effectiveness. Educate pt o n non-pharmacologic methods of pain reduction. 4. Monitor saturations via oximetry and titrate to order as indicated. 5. Administer respiratory medications as ordered and adjust with use of respiratory protoco ls. 6. PT intervention, pt education and participation. Outcome: Unchanged Goal Evaluation: Tiny oxygen saturation is SpO2: 100 % on room air and a heart rate of 88. Breath sounds are clear, equal bilaterally and post breathing malinda tment breath sounds are aeration increased. Pt has a good, nonproductive cough. Pt's respira tions are depth regular, pattern regular, dyspnea on exertion with expansion asymmetric, no use of accessory muscles. No changes to patients treatments, denies shortness breath lan of Care - Gretchen Garcia RN - 05/02/2018 6:47 PM PSTProblem: Patient Care Overview (Adult) Goal: Care Team Goals & Evaluation PROBLEM-RELATED GOALS: 1. Liv will remain free from falls/injuires through 04-30-18. 2. Liv will remain free from s/sx infection through 04-30-18. 3. Liv's pain will be adequately controlled and she will rate her pain 3/10 (or comforta ble level) through 04-30-18. 4. Tiny will maintain adequate oxygenation via oximetry with SpO2 >92% by 04/28/18. 5. Tiny will have breath sounds consistent with baseline function throughout stay and r everse airway bronchospasm when indicated. Reevaluate goal by 04/28/18. 6. Liv will demonstrate safe ambulation with cane or FWW 300' x 2 by 05/04/18. STRATEGY TO ACHIEVE GOALS: 1. Conduct hourly rounding during day shift and q2h during shift stacker. Answer call light i n person and/or in a timely manner. 2. Assess vitals w/temps and monitor lab values; notify MD if abnormalities are identified. 3. Assess pain PRN and medicate w/analgesics PRN; re-assess for effectiveness. Educate pt o n non-pharmacologic methods of pain reduction. 4. Monitor saturations via oximetry and titrate to order as indicated. 5. Administer respiratory medications as ordered and adjust with use of respiratory protoco ls. 6. PT intervention, pt education and participation. Goal Evaluation: Pain to abdomen managed with PRN oxy this evening. Lungs clear. 2+ edema to BLE. Supervise d activity. Will continue to monitor. lan of Care - Romaine Felix, OT - 05/02/2018 2:07 PM PSTFormatting of this note might be different fro m the original. Problem: Patient Care Overview (Adult) Goal: Care Team Goals & Evaluation PROBLEM-RELATED GOALS: 1. Liv will remain free from falls/injuires through 04-30-18. 2. Liv will remain free from s/sx infection through 04-30-18. 3. Liv's pain will be adequately controlled and she will rate her pain 3/10 (or comforta ble level) through 04-30-18. 4. Tiny will maintain adequate oxygenation via oximetry with SpO2 >92% by 04/28/18. 5. Tiny will have breath sounds consistent with baseline function throughout stay and r everse airway bronchospasm when indicated. Reevaluate goal by 04/28/18. 6. Liv will demonstrate safe ambulation with cane or FWW 300' x 2 by 05/04/18. STRATEGY TO ACHIEVE GOALS: 1. Conduct hourly rounding during day shift and q2h during shift stacker. Answer call light i n person and/or in a timely manner. 2. Assess vitals w/temps and monitor lab values; notify MD if abnormalities are identified. 3. Assess pain PRN and medicate w/analgesics PRN; re-assess for effectiveness. Educate pt o n non-pharmacologic methods of pain reduction. 4. Monitor saturations via oximetry and titrate to order as indicated. 5. Administer respiratory medications as ordered and adjust with use of respiratory protoco ls. 6. PT intervention, pt education and participation. Occupational Therapy Plan of Care Initial Evaluation Note Summary: Tiny presents to occupational therapy with decreased independence with ADL and functional mobility following admit for anascara and abdominal pain related to water darcy ght gain. Objective exam reveals impairments with aerobic capacity/endurance, anthropometri c characteristics, ergonomics and body mechanics, functional endurance/activity tolerance, g ait, locomotion, and balance, muscle performance, posture. Emphasis of session included appl mark Coban II wraps to BLE and educating pt on MLM to BLE with pt. providing return demo. Pt demonstrated fair understanding, but would benefit from further education on MLM and edema management techniques. Pt states she normally wears compression garments at home. RN has bee n applying Patrick wraps to BLE for edema management during the day and removing them at night. Pt. has had difficulty tolerating these wraps overtime, although she reports they initially provide some pain relief. Agreeable to trying Coban II wraps. Pt denied discomfort followin g application. Discussed removing wraps with both pt and RN should she have any discomfort. Both verbalized understanding. Barriers to discharge and functional limitations include decreased insight into safety and deficits, decreased functional activity tolerance, decreased bed mobility, decreased functio nal transfers, decreased ability to perform BADLs, demonstrating need for 24/7 supervision, not yet able to mobilize at level safe for home discharge and medical status. Tiny will benefit from therapeutic intervention to address impairments and increase saf ety and independence with activities necessary for safe discharge. Refer below for specific details regarding functional levels. Precautions/Limitations: falls Previous Level of Function: Transferring: independent Ambulation: independent Toileting: independent Bathing: independent Dressing: independent Eating: independent Communication: understands/communicates without difficulty Swallowin-->swallows foods/liquids without difficulty Equipment Currently Used at Home: 2 wheeled walker (FWW) Prior Functional Level Comment: Lives alone, meals delivered, nurse from [facility] visits along with others in community. Pt with recent hospitalization and 3 ER visits since Mar Potential available assistance at discharge: Significant Relationships: sister (aunt) Living Environment/Accessibility: Lives With: alone Living Arrangements: house Home Accessibility: no concerns Number of Stairs to Enter Home: 0 Number of Stairs Within Home: 0 Financial Concerns: none Transportation Available: family or friend will provide Rehabilitation potential: good, to achieve stated therapy goals Occupational Therapy Discharge Recommendations are: Recommended discharge disposition: home with assist Post discharge occupational therapy recommendation: ongoing low intensity therapy, outpati ent therapy Equipment Recommendations: Planned Interventions:ADL retraining, balance training, bed mobility training, functional e ndurance training, patient/family education, ROM (Range of Motion), strengthening, transfer training, other (see comments) (edema management techniques) Recommended Frequency: daily Patient Status/Goals: Reflects last filed data and may be from multiple contributors. ADLs Reports difficulty performing ADL. Limited by decreased activity tolerance and total body edema. Further assessment of ADL at next visit. OT Goal Review Date Most Recent Value STG Review Date 05/09/18 at 05/02/2018 1407 Grooming Goal Most Recent Value STG Status new at 05/02/2018 1407 STG [place] Level modified independent at 05/02/2018 1407 STG Position standing at 05/02/2018 1407 LB Dressing Goal Most Recent Value STG Status new at 05/02/2018 1407 STG [place] Level modified independent at 05/02/2018 1407 Additional Goals #1 OT Most Recent Value STG Status new at 05/02/2018 1407 STG Pt. will tolerate BLE compression wraps and other edema management techniques includin g MLM for edema management at 05/02/2018 1407 Electronically signed by: Romaine Romero OT, 05/02/2018 15:43 lan of Care - Natalie Penaloza RN - 05/02/2018 1:55 PM PSTProblem: Patient Care Overview (Adult) Goal: Care Team Goals & Evaluation PROBLEM-RELATED GOALS: 1. Liv will remain free from falls/injuires through 04-30-18. 2. Liv will remain free from s/sx infection through 04-30-18. 3. Liv's pain will be adequately controlled and she will rate her pain 3/10 (or comforta ble level) through 04-30-18. 4. Tiny will maintain adequate oxygenation via oximetry with SpO2 >92% by 04/28/18. 5. Tiny will have breath sounds consistent with baseline function throughout stay and r everse airway bronchospasm when indicated. Reevaluate goal by 04/28/18. 6. Liv will demonstrate safe ambulation with cane or FWW 300' x 2 by 05/04/18. STRATEGY TO ACHIEVE GOALS: 1. Conduct hourly rounding during day shift and q2h during shift stacker. Answer call light i n person and/or in a timely manner. 2. Assess vitals w/temps and monitor lab values; notify MD if abnormalities are identified. 3. Assess pain PRN and medicate w/analgesics PRN; re-assess for effectiveness. Educate pt o n non-pharmacologic methods of pain reduction. 4. Monitor saturations via oximetry and titrate to order as indicated. 5. Administer respiratory medications as ordered and adjust with use of respiratory protoco ls. 6. PT intervention, pt education and participation. Outcome: Improving Goal Evaluation: Liv's VSS. Liv has anxiety and panic attacks accompanied with chest pain. 1mg ativan PRN q6hr ordered. Given at 1300. 3+ pitting edema to the bilateral thigh. 2+ to the BLE bel ow the knee. IV 22g to R forearm flushes w/o difficulty. A/Ox4. All questions answered. lan of Care - Víctor brooks, Barbara Henry, PT - 05/02/2018 9:11 AM PST Problem: Patient Care Overview (Adult) Goal: Care Team Goals & Evaluation PROBLEM-RELATED GOALS: 1. Liv will remain free from falls/injuires through 04-30-18. 2. Liv will remain free from s/sx infection through 04-30-18. 3. Oscars pain will be adequately controlled and she will rate her pain 3/10 (or comforta ble level) through 04-30-18. 4. Tiny will maintain adequate oxygenation via oximetry with SpO2 >92% by 04/28/18. 5. Tiny will have breath sounds consistent with baseline function throughout stay and r everse airway bronchospasm when indicated. Reevaluate goal by 04/28/18. 6. Liv will demonstrate safe ambulation with cane or FWW 300' x 2 by 05/04/18. STRATEGY TO ACHIEVE GOALS: 1. Conduct hourly rounding during day shift and q2h during shift stacker. Answer call light i n person and/or in a timely manner. 2. Assess vitals w/temps and monitor lab values; notify MD if abnormalities are identified. 3. Assess pain PRN and medicate w/analgesics PRN; re-assess for effectiveness. Educate pt o n non-pharmacologic methods of pain reduction. 4. Monitor saturations via oximetry and titrate to order as indicated. 5. Administer respiratory medications as ordered and adjust with use of respiratory protoco ls. 6. PT intervention, pt education and participation. Outcome: Improving Physical Therapy Plan of Care Treatment Note Summary: Tiny has been participating in physical therapy for treatment of impaired f unctional mobility d/t anascara secondary to liver ETOH cirrhosis, abdominal pain and 30# we ight gain. Pt presents in chair; says she is feeling much better today. Reports that yesterd ay was not a good day. Denies pain and is agreeable to PT. Legs are not wrapped; pt says she is going to have a shower and then they will re-wrap her legs. Emphasis of session included gait and ex training. Vital signs assessed and pt with good response to upright mobility (s ee flow sheets). Patient demonstrates progress towards functional goals as evidenced by celso marin able to demo improving recall of exercises and able to mobilize with supervision. Pt stil l with decreased strength and endurance, so will benefit from continued therapeutic interven tion to address ongoing impairments and increase safety and independence with activities nec essary for safe discharge. Refer below for specific details regarding functional levels. Physical Therapy Discharge Recommendations are: Recommended discharge disposition: home with assist Post discharge physical therapy recommendation: outpatient therapy, ongoing low intensity therapy Equipment Recommendations: 2 wheeled walker (FWW), bariatric, cane (straight, single point ) Planned Interventions: bed mobility training, gait training, home exercise program, transf er training, strengthening, patient/family education Recommended Frequency: 4 times/wk Patient Status/Goals: Reflects last filed data and may be from multiple contributors. Gait Pt requesting to use FWW for gait training. Says she feels most comfortable with this and u ses it at home. Pt with slower gait speed and mild SOB w/ exertion but with no LOB and good vital sign response (see flow sheets). Level of [place]: supervised Assistive Device: 2 wheeled walker (FWW) Distance (feet): 300 Transfers Pt requires increased time and effort but able to demo safe transfer technique without mary marin. Sit-Stand, Level of [place]: modified independent Stand-Sit, Level of [place]: modified independent Oln-Mcypt-Oic, Assistive Device: none, 2 wheeled walker (FWW) Safety Issues: sequencing ability decreased, step length decreased, weight-shifting ability decreased Impairments: coordination impaired, impaired balance Bed Mobility Increased time and effort, no phys A needed Assistive Device: bed rails, HOB elevated Supine to Sit, Level of [place]: modified independent Sit to Supine, Level of [place]: not tested Safety Issues: decreased use of legs for bridging/pushing Impairments: coordination impaired Therapeutic Exercise Pt given written ex handout; able to perform on her own at the counter but benefits from cu es for coordinating breathing with ex, as pt tends to hold her breath. Also instructed pt in how to do gentle ant/post pelvic tilts x 10 in standing, as she was c/o her low back feelin g tight. Pt reports that these felt good and helped to loosen up her low back. Standing exercises: marching, shallow squats, heel raises/toe raises, hip ABDuction, knee f lexion Repetitions: 10 reps each Functional Endurance Impaired but improving. Pt still with mild SOB with exertion and requiring frequent rests but with good vital sign response to mobility (see flow sheets). PT Goal Review Date Most Recent Value STG Review Date 05/04/18 at 04/27/2018 1206 [id number]-Slp-[id number] Goal Most Recent Value STG Status met at 04/28/2018 1145 STG [place] Level modified independent at 04/27/2018 1206 STG Assistive Device none at 04/27/2018 1206 STG Comments simulate home environment at 04/27/2018 1206 Pfo-Hrtdi-Tit Goal Most Recent Value STG Status progressing at 04/29/2018 1100 STG [place] Level modified independent at 04/27/2018 1206 STG Comments with or w/o AD at 04/27/2018 1206 Dox-Tbfcs-Tss Goal Most Recent Value STG Status progressing at 04/29/2018 1100 STG [place] Level modified independent at 04/27/2018 1206 STG Comments with or w/o AD at 04/27/2018 1206 Gait Goal Most Recent Value STG Status progressing at 04/29/2018 1100 STG [place] Level modified independent at 04/27/2018 1206 STG Assistive Device 2 wheeled walker (FWW), bariatric, cane (straight, single point) at 0 04/27/2018 1206 STG Distance (feet) 300' x 2 at 04/27/2018 1206 Additional Goal #1 PT Most Recent Value STG Status progressing at 04/29/2018 1100 STG HEP instruction for strength/conditioning with verbal/demonstrated understanding by pt . at 04/27/2018 1206 Electronically signed by: Barbara Sommer, PT, 05/02/2018 9:25 lan of Care - James Sr RN - 05/02/2018 4:54 AM PSTProblem: Patient Care Overview (Adult) Goal: Care Team Goals & Evaluation PROBLEM-RELATED GOALS: 1. Liv will remain free from falls/injuires through 04-30-18. 2. Liv will remain free from s/sx infection through 04-30-18. 3. Liv's pain will be adequately controlled and she will rate her pain 3/10 (or comforta ble level) through 04-30-18. 4. Tiny will maintain adequate oxygenation via oximetry with SpO2 >92% by 04/28/18. 5. Tiny will have breath sounds consistent with baseline function throughout stay and r everse airway bronchospasm when indicated. Reevaluate goal by 04/28/18. 6. Liv will demonstrate safe ambulation with cane or FWW 300' x 2 by 05/04/18. STRATEGY TO ACHIEVE GOALS: 1. Conduct hourly rounding during day shift and q2h during shift stacker. Answer call light i n person and/or in a timely manner. 2. Assess vitals w/temps and monitor lab values; notify MD if abnormalities are identified. 3. Assess pain PRN and medicate w/analgesics PRN; re-assess for effectiveness. Educate pt o n non-pharmacologic methods of pain reduction. 4. Monitor saturations via oximetry and titrate to order as indicated. 5. Administer respiratory medications as ordered and adjust with use of respiratory protoco ls. 6. PT intervention, pt education and participation. Goal Evaluation: Liv has been rating pain level at 5/10, managing with 5mg oxy. Edema in legs and abdome n +3. HRR. Lung sounds are clear, dim in bases. Liv Expressed to RT that she was tired o f being poked for lab draws. She may refuse to have lab drawn this morning. Liv has been voiding adequately. VSS. lan of Care - Eric Garcia V, BROTH MIXER - 05/02/2018 4:42 AM PSTProblem: Patient Care Overview (Adult) Goal: Care Team Goals & Evaluation PROBLEM-RELATED GOALS: 1. Liv will remain free from falls/injuires through 04-30-18. 2. Liv will remain free from s/sx infection through 04-30-18. 3. Liv's pain will be adequately controlled and she will rate her pain 3/10 (or comforta ble level) through 04-30-18. 4. Tiny will maintain adequate oxygenation via oximetry with SpO2 >92% by 04/28/18. 5. Tiny will have breath sounds consistent with baseline function throughout stay and r everse airway bronchospasm when indicated. Reevaluate goal by 04/28/18. 6. Liv will demonstrate safe ambulation with cane or FWW 300' x 2 by 05/04/18. STRATEGY TO ACHIEVE GOALS: 1. Conduct hourly rounding during day shift and q2h during shift stacker. Answer call light i n person and/or in a timely manner. 2. Assess vitals w/temps and monitor lab values; notify MD if abnormalities are identified. 3. Assess pain PRN and medicate w/analgesics PRN; re-assess for effectiveness. Educate pt o n non-pharmacologic methods of pain reduction. 4. Monitor saturations via oximetry and titrate to order as indicated. 5. Administer respiratory medications as ordered and adjust with use of respiratory protoco ls. 6. PT intervention, pt education and participation. Outcome: Unchanged Goal Evaluation: Tiny oxygen saturation is SpO2: 95 % on room air and a heart rate of 80. Breath sounds are clear, equal bilaterally, diminished and post br eathing treatment breath sounds are aeration increased. Pt has a fair, nonproductive cough. Pt's respirations are no shortness of breath reported, depth regular, pattern regular, unlab ored with expansion asymmetric, no use of accessory muscles. lan of Care - Mary De Los Santos RN - 05/01/2018 4:11 PM PSTProblem: Patient Care Overview (Adult) Goal: Care Team Goals & Evaluation PROBLEM-RELATED GOALS: 1. Liv will remain free from falls/injuires through 04-30-18. 2. Liv will remain free from s/sx infection through 04-30-18. 3. Liv's pain will be adequately controlled and she will rate her pain 3/10 (or comforta ble level) through 04-30-18. 4. Tiny will maintain adequate oxygenation via oximetry with SpO2 >92% by 04/28/18. 5. Tiny will have breath sounds consistent with baseline function throughout stay and r everse airway bronchospasm when indicated. Reevaluate goal by 04/28/18. 6. Liv will demonstrate safe ambulation with cane or FWW 300' x 2 by 05/04/18. STRATEGY TO ACHIEVE GOALS: 1. Conduct hourly rounding during day shift and q2h during shift stacker. Answer call light i n person and/or in a timely manner. 2. Assess vitals w/temps and monitor lab values; notify MD if abnormalities are identified. 3. Assess pain PRN and medicate w/analgesics PRN; re-assess for effectiveness. Educate pt o n non-pharmacologic methods of pain reduction. 4. Monitor saturations via oximetry and titrate to order as indicated. 5. Administer respiratory medications as ordered and adjust with use of respiratory protoco ls. 6. PT intervention, pt education and participation. Outcome: Improving Goal Evaluation: Liv reports pain is well controlled with 5mg oxycodone PRN. Pain is mostly in abdomen an d BLE. BLE wrapped per order. Pt does not tolerate legs wraps well and removes them. Edema t o BLE +3. Edema to abdomen noted. VSS, afebrile. O2 sats adequate on RA. Lung sounds clear b ut diminished. Ambulating SBA w FWW. Fluid restriction in place, Voiding frequently >2L this shift. No falls/injury. lan of Care - James Smart RN - 05/01/2018 3:38 AM PSTProblem: Patient Care Overview (Adult) Goal: Care Team Goals & Evaluation PROBLEM-RELATED GOALS: 1. Liv will remain free from falls/injuires through 04-30-18. 2. Liv will remain free from s/sx infection through 04-30-18. 3. Liv's pain will be adequately controlled and she will rate her pain 3/10 (or comforta ble level) through 04-30-18. 4. Tiny will maintain adequate oxygenation via oximetry with SpO2 >92% by 04/28/18. 5. Tiny will have breath sounds consistent with baseline function throughout stay and r everse airway bronchospasm when indicated. Reevaluate goal by 04/28/18. 6. Liv will demonstrate safe ambulation with cane or FWW 300' x 2 by 05/04/18. STRATEGY TO ACHIEVE GOALS: 1. Conduct hourly rounding during day shift and q2h during shift stacker. Answer call light i n person and/or in a timely manner. 2. Assess vitals w/temps and monitor lab values; notify MD if abnormalities are identified. 3. Assess pain PRN and medicate w/analgesics PRN; re-assess for effectiveness. Educate pt o n non-pharmacologic methods of pain reduction. 4. Monitor saturations via oximetry and titrate to order as indicated. 5. Administer respiratory medications as ordered and adjust with use of respiratory protoco ls. 6. PT intervention, pt education and participation. Goal Evaluation: Liv c/o pain in abd, continued to be managed with oxycodone 5mg. She was found crying o mckenna her legs being wrapped, despite wraps being loose. She became calm after patrick wraps was t aken off for the night. BLE edema +3. She has been sleeping for most of the shift. VSS. Magg ie calls out appropriately. She has been voiding adequately. Fluid restriction maintained. lan of Care - Tammy Baron, BROTH MIXER - 04/30/2018 8:51 PM PSTProblem: Patient Care Overview (Adult) Goal: Care Team Goals & Evaluation PROBLEM-RELATED GOALS: 1. Liv will remain free from falls/injuires through 04-30-18. 2. Liv will remain free from s/sx infection through 04-30-18. 3. Liv's pain will be adequately controlled and she will rate her pain 3/10 (or comforta ble level) through 04-30-18. 4. Tiny will maintain adequate oxygenation via oximetry with SpO2 >92% by 04/28/18. 5. Tiny will have breath sounds consistent with baseline function throughout stay and r everse airway bronchospasm when indicated. Reevaluate goal by 04/28/18. 6. Liv will demonstrate safe ambulation with cane or FWW 300' x 2 by 05/04/18. STRATEGY TO ACHIEVE GOALS: 1. Conduct hourly rounding during day shift and q2h during shift stacker. Answer call light i n person and/or in a timely manner. 2. Assess vitals w/temps and monitor lab values; notify MD if abnormalities are identified. 3. Assess pain PRN and medicate w/analgesics PRN; re-assess for effectiveness. Educate pt o n non-pharmacologic methods of pain reduction. 4. Monitor saturations via oximetry and titrate to order as indicated. 5. Administer respiratory medications as ordered and adjust with use of respiratory protoco ls. 6. PT intervention, pt education and participation. Goal Evaluation: Tiny oxygen saturation is SpO2: 94 % on room air and a heart rate of 80. Breath sounds are diminished, clear and post breathing treatment b reath sounds are aeration increased. Pt has a fair, nonproductive cough. Pt's respirations a re no shortness of breath reported, depth regular, pattern regular, unlabored with expansion asymmetric, no use of accessory muscles.neb txs given via mouthpiece,tolerates well. lan of Care - Yaneli Carmona RN - 04/30/2018 8:36 PM PSTProblem: Patient Care Overview (Adult) Goal: Care Team Goals & Evaluation PROBLEM-RELATED GOALS: 1. Liv will remain free from falls/injuires through 04-30-18. 2. Liv will remain free from s/sx infection through 04-30-18. 3. Liv's pain will be adequately controlled and she will rate her pain 3/10 (or comforta ble level) through 04-30-18. 4. Tiny will maintain adequate oxygenation via oximetry with SpO2 >92% by 04/28/18. 5. Tiny will have breath sounds consistent with baseline function throughout stay and r everse airway bronchospasm when indicated. Reevaluate goal by 04/28/18. 6. Liv will demonstrate safe ambulation with cane or FWW 300' x 2 by 05/04/18. STRATEGY TO ACHIEVE GOALS: 1. Conduct hourly rounding during day shift and q2h during shift stacker. Answer call light i n person and/or in a timely manner. 2. Assess vitals w/temps and monitor lab values; notify MD if abnormalities are identified. 3. Assess pain PRN and medicate w/analgesics PRN; re-assess for effectiveness. Educate pt o n non-pharmacologic methods of pain reduction. 4. Monitor saturations via oximetry and titrate to order as indicated. 5. Administer respiratory medications as ordered and adjust with use of respiratory protoco ls. 6. PT intervention, pt education and participation. Outcome: Improving Goal Evaluation: Liv remained free from falls or injury and s/s of infection. Her pain was high once whe n she woke up from a nap but otherwise was well controlled. Her O2 sats were 97-100% and he r breath sounds are clear but dim bases. She is a SBA w/FWW, not Mod I yet. Her last BM wa s 04/30/18, BT's are good and she is voiding. lan of Care - [facility], Rosy Duran RN - 04/30/2018 10:25 AM PSTProblem: Patient Care Overview (Adult) Goal: Care Team Goals & Evaluation PROBLEM-RELATED GOALS: 1. Liv will remain free from falls/injuires through 04-30-18. 2. Liv will remain free from s/sx infection through 04-30-18. 3. Liv's pain will be adequately controlled and she will rate her pain 3/10 (or comforta ble level) through 04-30-18. 4. Tiny will maintain adequate oxygenation via oximetry with SpO2 >92% by 04/28/18. 5. Tiny will have breath sounds consistent with baseline function throughout stay and r everse airway bronchospasm when indicated. Reevaluate goal by 04/28/18. 6. Liv will demonstrate safe ambulation with cane or FWW 300' x 2 by 05/04/18. STRATEGY TO ACHIEVE GOALS: 1. Conduct hourly rounding during day shift and q2h during shift stacker. Answer call light i n person and/or in a timely manner. 2. Assess vitals w/temps and monitor lab values; notify MD if abnormalities are identified. 3. Assess pain PRN and medicate w/analgesics PRN; re-assess for effectiveness. Educate pt o n non-pharmacologic methods of pain reduction. 4. Monitor saturations via oximetry and titrate to order as indicated. 5. Administer respiratory medications as ordered and adjust with use of respiratory protoco ls. 6. PT intervention, pt education and participation. Outcome: Unchanged Goal Evaluation: pain managed w/oxycodone prn. Pt states she feels blakely and heavier bilateral abdomen, in creased weight noted since yesterday. Ambulates w/fww and sba. Continues on fluid restrictio n. Had slight nosebleed from rt nare this am, encouraged pt to NOT blow nose. Calls appropri ately for mobility assist lan of Care - JunaidEder pink, BROTH MIXER - 04/30/2018 5:12 AM PSTProblem: Patient Care Overview (Adult) Goal: Care Team Goals & Evaluation PROBLEM-RELATED GOALS: 1. Liv will remain free from falls/injuires through 04-30-18. 2. Liv will remain free from s/sx infection through 04-30-18. 3. Liv's pain will be adequately controlled and she will rate her pain 3/10 (or comforta ble level) through 04-30-18. 4. Tiny will maintain adequate oxygenation via oximetry with SpO2 >92% by 04/28/18. 5. Tiny will have breath sounds consistent with baseline function throughout stay and r everse airway bronchospasm when indicated. Reevaluate goal by 04/28/18. 6. Liv will demonstrate safe ambulation with cane or FWW 300' x 2 by 05/04/18. STRATEGY TO ACHIEVE GOALS: 1. Conduct hourly rounding during day shift and q2h during shift stacker. Answer call light i n person and/or in a timely manner. 2. Assess vitals w/temps and monitor lab values; notify MD if abnormalities are identified. 3. Assess pain PRN and medicate w/analgesics PRN; re-assess for effectiveness. Educate pt o n non-pharmacologic methods of pain reduction. 4. Monitor saturations via oximetry and titrate to order as indicated. 5. Administer respiratory medications as ordered and adjust with use of respiratory protoco ls. 6. PT intervention, pt education and participation. Outcome: Unchanged Goal Evaluation: Tiny oxygen saturation is SpO2: 94 % on room air and a heart rate of 81. Breath sounds are clear, diminished aeration increased. Pt has a none cough. Pt's respirations are unlab ored, pattern regular, no shortness of breath reported with expansion asymmetric, no use of accessory muscles. Electronically signed by: Eder Morejon RRT 04/30/2018 5:12 lan of Care - R Isaac soliman RRT - 04/29/2018 5:47 PM PSTProblem: Patient Care Overview (Adult) Goal: Care Team Goals & Evaluation PROBLEM-RELATED GOALS: 1. Liv will remain free from falls/injuires through 04-30-18. 2. Liv will remain free from s/sx infection through 04-30-18. 3. [place] pain will be adequately controlled and she will rate her pain 3/10 (or comforta ble level) through 04-30-18. 4. Tiny will maintain adequate oxygenation via oximetry with SpO2 >92% by 04/28/18. 5. Tiny will have breath sounds consistent with baseline function throughout stay and r everse airway bronchospasm when indicated. Reevaluate goal by 04/28/18. 6. Liv will demonstrate safe ambulation with cane or FWW 300' x 2 by 05/04/18. STRATEGY TO ACHIEVE GOALS: 1. Conduct hourly rounding during day shift and q2h during shift stacker. Answer call light i n person and/or in a timely manner. 2. Assess vitals w/temps and monitor lab values; notify MD if abnormalities are identified. 3. Assess pain PRN and medicate w/analgesics PRN; re-assess for effectiveness. Educate pt o n non-pharmacologic methods of pain reduction. 4. Monitor saturations via oximetry and titrate to order as indicated. 5. Administer respiratory medications as ordered and adjust with use of respiratory protoco ls. 6. PT intervention, pt education and participation. Outcome: Unchanged Goal Evaluation: SpO2: 100 % on room air. Liv took her treatments well today. She had diminished/clear b reath sounds. lan of Care - Kena Trejo RN - 04/29/2018 3:07 PM PSTProblem: Patient Care Overview (Adult) Goal: Care Team Goals & Evaluation PROBLEM-RELATED GOALS: 1. Liv will remain free from falls/injuires through 04-30-18. 2. Liv will remain free from s/sx infection through 04-30-18. 3. Oscars pain will be adequately controlled and she will rate her pain 3/10 (or comforta ble level) through 04-30-18. 4. Tiny will maintain adequate oxygenation via oximetry with SpO2 >92% by 04/28/18. 5. Tiny will have breath sounds consistent with baseline function throughout stay and r everse airway bronchospasm when indicated. Reevaluate goal by 04/28/18. 6. Liv will demonstrate safe ambulation with cane or FWW 300' x 2 by 05/04/18. STRATEGY TO ACHIEVE GOALS: 1. Conduct hourly rounding during day shift and q2h during shift stacker. Answer call light i n person and/or in a timely manner. 2. Assess vitals w/temps and monitor lab values; notify MD if abnormalities are identified. 3. Assess pain PRN and medicate w/analgesics PRN; re-assess for effectiveness. Educate pt o n non-pharmacologic methods of pain reduction. 4. Monitor saturations via oximetry and titrate to order as indicated. 5. Administer respiratory medications as ordered and adjust with use of respiratory protoco ls. 6. PT intervention, pt education and participation. Outcome: Improving Goal Evaluation: Pt is doing well this shift, pain stated to be in lower abd, improved with oral oxy this a fternoon. Pt noted to have anxiety and becomes upset and crying very easily. pt encouraged t o take slow deep breaths to help to relax, appeared to help. Pt up walking around unit with 4ww, steady gait noted. Hourly rounding completed, call light within reach able to make need s known. Will continue to monitor. lan of [facility] - Falguni Hebert - 04/29/2018 1:04 PM PSTFaxed updated chart notes to [facility]. Received the communication result report; result ok Electronically signed by: Falguni Hebert 04/29/2018 13:04 This CM left a message on the voicemail of Luis Antonio at [facility] asking for a return call. PH: [phone] Electronically signed by: Falguni Hebert 04/29/2018 15:03 lan of Care - Sarah Bhagat PT - 04/29/2018 12:21 PM PSTFormatting of this note might be different from the nicolea l. Problem: Patient Care Overview (Adult) Goal: Care Team Goals & Evaluation PROBLEM-RELATED GOALS: 1. Liv will remain free from falls/injuires through 04-30-18. 2. Liv will remain free from s/sx infection through 04-30-18. 3. Liv's pain will be adequately controlled and she will rate her pain 3/10 (or comforta ble level) through 04-30-18. 4. Tiny will maintain adequate oxygenation via oximetry with SpO2 >92% by 04/28/18. 5. Tiny will have breath sounds consistent with baseline function throughout stay and r everse airway bronchospasm when indicated. Reevaluate goal by 04/28/18. 6. Liv will demonstrate safe ambulation with cane or FWW 300' x 2 by 05/04/18. STRATEGY TO ACHIEVE GOALS: 1. Conduct hourly rounding during day shift and q2h during shift stacker. Answer call light i n person and/or in a timely manner. 2. Assess vitals w/temps and monitor lab values; notify MD if abnormalities are identified. 3. Assess pain PRN and medicate w/analgesics PRN; re-assess for effectiveness. Educate pt o n non-pharmacologic methods of pain reduction. 4. Monitor saturations via oximetry and titrate to order as indicated. 5. Administer respiratory medications as ordered and adjust with use of respiratory protoco ls. 6. PT intervention, pt education and participation. Outcome: Improving Physical Therapy Plan of Care Treatment Note Summary: Tiny has been participating in physical therapy for treatment of impaired f unctional mobility d/t anascara secondary to liver ETOH cirrhosis, abdominal pain and 30# we ight gain. Emphasis of session included progressive gait training in halls with FWW, increa sed strengthening and ex performance, able to increase reps to 10 each on 5 ex's with UE sup port at counter. Tolerated all well. Patient demonstrates progress towards functional goals as evidenced by increased gait distance and exercise performance/tolerance. Pt encouraged t o do standing ex's 2x/day with SBA of staff, also walk in halls 3x/day, wrote on board. Pt c ontinues to demonstrate functional weakness, impaired balance warranting FWW presently (rath er than a cane) and deconditioning. Making steady gains, motivated. Remaining barriers to discharge and functional limitations include decreased insight into s afety and deficits, decreased functional activity tolerance, decreased bed mobility, decreas ed functional transfers, decreased functional gait distance, decreased gait velocity, stairs at home, lives alone, unsafe discharge disposition and medical status. Tiny will benefit from continued therapeutic intervention to address ongoing impairment s and increase safety and independence with activities necessary for safe discharge. Refer below for specific details regarding functional levels. Physical Therapy Discharge Recommendations are: Recommended discharge disposition: home with assist Post discharge physical therapy recommendation: outpatient therapy, ongoing low intensity therapy Equipment Recommendations: 2 wheeled walker (FWW), bariatric, cane (straight, single point ) Planned Interventions: bed mobility training, gait training, home exercise program, transf er training, strengthening, patient/family education Recommended Frequency: 4 times/wk Patient Status/Goals: Reflects last filed data and may be from multiple contributors. Gait Utilized FWW for gait, pt demonstrates being most safe using vs cane at this time. Increase d walking distance with good tolerance, stability, slowed rosa Level of [place]: stand by assist Assistive Device: 2 wheeled walker (FWW) Distance (feet): 300' Transfers No phys A needed, increased time/effort, needs intermittent object support Sit-Stand, Level of [place]: supervised Stand-Sit, Level of [place]: supervised [id number], Assistive Device: 2 wheeled walker (FWW) Toilet, Level of [place]: supervised Toilet, Assistive Device: grab bars Safety Issues: sequencing ability decreased, step length decreased, weight-shifting ability decreased Impairments: coordination impaired, impaired balance Bed Mobility Increased time and effort, no phys A needed Assistive Device: bed rails, HOB elevated Supine to Sit, Level of [place]: modified independent Sit to Supine, Level of [place]: not tested Safety Issues: decreased use of legs for bridging/pushing Impairments: coordination impaired Balance good sitting, fair standing with support Therapeutic Exercise 5 standing ex's at sink, able to recall 4/5 indptly Standing exercises: marching, shallow squats, heel raises/toe raises, hip ABDuction, knee f lexion Repetitions: 10 reps each Functional Endurance fair ROM WFL; LE's limited by large tissue mass/habitus Strength L LE Strength: 4/5 R LE Strength: 4/5 PT Goal Review Date Most Recent Value STG Review Date 05/04/18 at 04/27/2018 1206 [id number] Goal Most Recent Value STG Status met at 04/28/2018 1145 STG [place] Level modified independent at 04/27/2018 1206 STG Assistive Device none at 04/27/2018 1206 STG Comments simulate home environment at 04/27/2018 1206 Lah-[id number]-Eil Goal Most Recent Value STG Status progressing at 04/29/2018 1100 STG [place] Level modified independent at 04/27/2018 1206 STG Comments with or w/o AD at 04/27/2018 1206 Cmr-[id number]-Gqp Goal Most Recent Value STG Status progressing at 04/29/2018 1100 STG [place] Level modified independent at 04/27/2018 1206 STG Comments with or w/o AD at 04/27/2018 1206 Gait Goal Most Recent Value STG Status progressing at 04/29/2018 1100 STG [place] Level modified independent at 04/27/2018 1206 STG Assistive Device 2 wheeled walker (FWW), bariatric, cane (straight, single point) at 0 04/27/2018 1206 STG Distance (feet) 300' x 2 at 04/27/2018 1206 Additional Goal #1 PT Most Recent Value STG Status progressing at 04/29/2018 1100 STG HEP instruction for strength/conditioning with verbal/demonstrated understanding by pt . at 04/27/2018 1206 Electronically signed by: Antonina Bhagat, PT, 04/29/2018 12:14 lan of Care - Judd AngelinaChaplain Vasquez - 04/29/2018 11:55 AM PSTProblem: Patient Care Overview (Adult) Goal: Care Team Goals & Evaluation PROBLEM-RELATED GOALS: 1. Liv will remain free from falls/injuires through 04-30-18. 2. Liv will remain free from s/sx infection through 04-30-18. 3. Liv's pain will be adequately controlled and she will rate her pain 3/10 (or comforta ble level) through 04-30-18. 4. Tiny will maintain adequate oxygenation via oximetry with SpO2 >92% by 04/28/18. 5. Tiny will have breath sounds consistent with baseline function throughout stay and r everse airway bronchospasm when indicated. Reevaluate goal by 04/28/18. 6. Liv will demonstrate safe ambulation with cane or FWW 300' x 2 by 05/04/18. STRATEGY TO ACHIEVE GOALS: 1. Conduct hourly rounding during day shift and q2h during shift stacker. Answer call light i n person and/or in a timely manner. 2. Assess vitals w/temps and monitor lab values; notify MD if abnormalities are identified. 3. Assess pain PRN and medicate w/analgesics PRN; re-assess for effectiveness. Educate pt o n non-pharmacologic methods of pain reduction. 4. Monitor saturations via oximetry and titrate to order as indicated. 5. Administer respiratory medications as ordered and adjust with use of respiratory protoco ls. 6. PT intervention, pt education and participation. Spiritual Care Tiny Campuzano is a 42 y.o. female who is admitted for Anasarca [R60.1] Acute systolic congestive heart failure (HCC) [I50.21] Abdominal pain, chronic, epigastric [R10.13, G89.29] Decompensated hepatic cirrhosis (HCC) [K72.90] Hypervolemia, unspecified hypervolemia type [E87.70] 3+ pitting edema [R60.9]. Head Up Operator visit was in response to the patient's request to attend a taoist service. Spiritual Evaluation: The patient welcomed spiritual care and was glad to attend the [facility] Chapel service. She i s Islam and has desired to attend mass at her own temple [facility] in [facility], but lenz s been unable to in the last few weeks due to her illness and lack of transportation. She is connected with Father Onur at her temple. 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 Spiritual Interventions: The apartment groundskeeper attended, brought patient to the chapel by wheelchair, attended the chapel ser vice with the patient and transported her back to her room. Spiritual Outcomes: The patient appreciated spiritual care and the privilege of attending chapel service. Spiritual Goals/Follow-up: Follow up as needed or requested with spiritual and emotional support. lan of Care - Felipa Pino RN - 04/29/2018 4:00 AM PSTProblem: Patient Care Overview (Adult) Goal: Care Team Goals & Evaluation PROBLEM-RELATED GOALS: 1. Liv will remain free from falls/injuires through 04-30-18. 2. Liv will remain free from s/sx infection through 04-30-18. 3. Liv's pain will be adequately controlled and she will rate her pain 3/10 (or comforta ble level) through 04-30-18. 4. Tiny will maintain adequate oxygenation via oximetry with SpO2 >92% by 04/28/18. 5. Tiny will have breath sounds consistent with baseline function throughout stay and r everse airway bronchospasm when indicated. Reevaluate goal by 04/28/18. 6. Liv will demonstrate safe ambulation with cane or FWW 300' x 2 by 05/04/18. STRATEGY TO ACHIEVE GOALS: 1. Conduct hourly rounding during day shift and q2h during shift stacker. Answer call light i n person and/or in a timely manner. 2. Assess vitals w/temps and monitor lab values; notify MD if abnormalities are identified. 3. Assess pain PRN and medicate w/analgesics PRN; re-assess for effectiveness. Educate pt o n non-pharmacologic methods of pain reduction. 4. Monitor saturations via oximetry and titrate to order as indicated. 5. Administer respiratory medications as ordered and adjust with use of respiratory protoco ls. 6. PT intervention, pt education and participation. Outcome: Unchanged Goal Evaluation: AOx4. Pain controlled by PRN Toradol. Denies N/V. BLE +2/+3 edema, chronic numbness and pain in feet. Abdomen distended and tender, BT hypoactive. Patient remains free from falls , ambulating to bathroom with SBA and FWW. Patient remains free from s/s of infection, afeb rile, VSS. Patient rested comfortably in between cares, purposeful rounding completed. lan of Care - Shani Rocha RRT - 04/28/2018 11:07 PM PSTProblem: Patient Care Overview (Adult) Goal: Care Team Goals & Evaluation PROBLEM-RELATED GOALS: 1. Liv will remain free from falls/injuires through 04-30-18. 2. Liv will remain free from s/sx infection through 04-30-18. 3. Liv's pain will be adequately controlled and she will rate her pain 3/10 (or comforta ble level) through 04-30-18. 4. Tiny will maintain adequate oxygenation via oximetry with SpO2 >92% by 04/28/18. 5. Tiny will have breath sounds consistent with baseline function throughout stay and r everse airway bronchospasm when indicated. Reevaluate goal by 04/28/18. 6. Liv will demonstrate safe ambulation with cane or FWW 300' x 2 by 05/04/18. STRATEGY TO ACHIEVE GOALS: 1. Conduct hourly rounding during day shift and q2h during shift stacker. Answer call light i n person and/or in a timely manner. 2. Assess vitals w/temps and monitor lab values; notify MD if abnormalities are identified. 3. Assess pain PRN and medicate w/analgesics PRN; re-assess for effectiveness. Educate pt o n non-pharmacologic methods of pain reduction. 4. Monitor saturations via oximetry and titrate to order as indicated. 5. Administer respiratory medications as ordered and adjust with use of respiratory protoco ls. 6. PT intervention, pt education and participation. Outcome: Improving Goal Evaluation: Tiny oxygen saturation is SpO2: 98 % on room air and a heart rate of 80. Breath sounds are clear, diminished and post breathing treatment b reath sounds are aeration increased. Pt has a none cough. Pt's respirations are unlabored, p attern regular, no shortness of breath reported with expansion asymmetric, no use of accesso ry muscles. lan of Care - sIaac House RRT - 04/28/2018 5:44 PM PSTProblem: Patient Care Overview (Adult) Goal: Care Team Goals & Evaluation PROBLEM-RELATED GOALS: 1. Liv will remain free from falls/injuires through 04-30-18. 2. Liv will remain free from s/sx infection through 04-30-18. 3. Liv's pain will be adequately controlled and she will rate her pain 3/10 (or comforta ble level) through 04-30-18. 4. Tiny will maintain adequate oxygenation via oximetry with SpO2 >92% by 04/28/18. 5. Tiny will have breath sounds consistent with baseline function throughout stay and r everse airway bronchospasm when indicated. Reevaluate goal by 04/28/18. 6. Liv will demonstrate safe ambulation with cane or FWW 300' x 2 by 05/04/18. STRATEGY TO ACHIEVE GOALS: 1. Conduct hourly rounding during day shift and q2h during shift stacker. Answer call light i n person and/or in a timely manner. 2. Assess vitals w/temps and monitor lab values; notify MD if abnormalities are identified. 3. Assess pain PRN and medicate w/analgesics PRN; re-assess for effectiveness. Educate pt o n non-pharmacologic methods of pain reduction. 4. Monitor saturations via oximetry and titrate to order as indicated. 5. Administer respiratory medications as ordered and adjust with use of respiratory protoco ls. 6. PT intervention, pt education and participation. Outcome: Unchanged Goal Evaluation: SpO2: 98 % on room air. Liv took her treatments well today. She had diminished breath s ounds. lan [facility] - Debra Solorzano RN - 04/28/2018 4:08 PM PSTPt has had a good day today. Pt has been pleasant and cooperative with care. Her legs were wrapped this AM with morning meds, because yesterda y she said the compression helped with leg pain. We took the wraps off for a couple hours an d then she told me they were feeling irritated again so I convinced her to let me wrap them again. She has been doing well with ambulating to the bathroom. She calls appropriately. She is now resting comfortably in bed. She would like to go to chap tomorrow at 10:45. I will pass on to shift stacker that she wo uld like a wheelchair and chaplain Angelina, said she would wheel her down to chap at the [facility]. lan [facility] - Angelina Whaley Chaplain - 04/28/2018 12:22 PM PSTProblem: Patient Care Overview (Adult) Goal: Care Team Goals & Evaluation PROBLEM-RELATED GOALS: 1. Liv will remain free from falls/injuires through 04-30-18. 2. Liv will remain free from s/sx infection through 04-30-18. 3. Oscars pain will be adequately controlled and she will rate her pain 3/10 (or comforta ble level) through 04-30-18. 4. Tiny will maintain adequate oxygenation via oximetry with SpO2 >92% by 04/28/18. 5. Tiny will have breath sounds consistent with baseline function throughout stay and r everse airway bronchospasm when indicated. Reevaluate goal by 04/28/18. 6. Liv will demonstrate safe ambulation with cane or FWW 300' x 2 by 05/04/18. STRATEGY TO ACHIEVE GOALS: 1. Conduct hourly rounding during day shift and q2h during shift stacker. Answer call light i n person and/or in a timely manner. 2. Assess vitals w/temps and monitor lab values; notify MD if abnormalities are identified. 3. Assess pain PRN and medicate w/analgesics PRN; re-assess for effectiveness. Educate pt o n non-pharmacologic methods of pain reduction. 4. Monitor saturations via oximetry and titrate to order as indicated. 5. Administer respiratory medications as ordered and adjust with use of respiratory protoco ls. 6. PT intervention, pt education and participation. Spiritual Care Tiny Campuzano is a 42 y.o. female who is admitted for Anasarca [R60.1] Acute systolic congestive heart failure (HCC) [I50.21] Abdominal pain, chronic, epigastric [R10.13, G89.29] Decompensated hepatic cirrhosis (HCC) [K72.90] Hypervolemia, unspecified hypervolemia type [E87.70] 3+ pitting edema [R60.9]. Head Up Operator visit was part of routine rounding. Spiritual Evaluation: This was a follow-up visit to offer prayer support and assess any further patient needs. T he patient welcomed the visit and prayer. She also requested a Bible as well as any other C hristian literature such as the [employer] devotional pamphlet. She attends [employer] in [place], [place] where Father Onur is a creative intern. Her sister continues to b e a support to her. She shared that she has been hospitalized in several locations since w ' and that it has been challenging and that she has felt discouraged at times. T he patient would like to attend Islam chapel services on at 11 am. Spiritual Interventions: The apartment groundskeeper attended, offered care, witnessed patient's story, responded to emotional pain , identified concerns, provided a Bible and offered prayer. Watchguard also spoke with the sera hawkins to coordinate the patietn's transportation by wheelchair to the chapel at 11 a m. Spiritual Outcomes: The patient appreciated spiritual support and expressed that she felt more calm after praye r. Spiritual Goals/Follow-up: Follow up with assistance in attending chapel services at 10:45 am. lan of Care - Angelina Whaley Chaplain - 04/28/2018 11:03 AM PSTProblem: Patient Care Overview (Adult) Goal: Care Team Goals & Evaluation PROBLEM-RELATED GOALS: 1. Liv will remain free from falls/injuires through 04-30-18. 2. Liv will remain free from s/sx infection through 04-30-18. 3. Liv's pain will be adequately controlled and she will rate her pain 3/10 (or comforta ble level) through 04-30-18. 4. Tiny will maintain adequate oxygenation via oximetry with SpO2 >92% by 04/28/18. 5. Tiny will have breath sounds consistent with baseline function throughout stay and r everse airway bronchospasm when indicated. Reevaluate goal by 04/28/18. 6. Liv will demonstrate safe ambulation with cane or FWW 300' x 2 by 05/04/18. STRATEGY TO ACHIEVE GOALS: 1. Conduct hourly rounding during day shift and q2h during shift stacker. Answer call light i n person and/or in a timely manner. 2. Assess vitals w/temps and monitor lab values; notify MD if abnormalities are identified. 3. Assess pain PRN and medicate w/analgesics PRN; re-assess for effectiveness. Educate pt o n non-pharmacologic methods of pain reduction. 4. Monitor saturations via oximetry and titrate to order as indicated. 5. Administer respiratory medications as ordered and adjust with use of respiratory protoco ls. 6. PT intervention, pt education and participation. Spiritual Care Tiny Campuzano is a 42 y.o. female who is admitted for Anasarca [R60.1] Acute systolic congestive heart failure (HCC) [I50.21] Abdominal pain, chronic, epigastric [R10.13, G89.29] Decompensated hepatic cirrhosis (HCC) [K72.90] Hypervolemia, unspecified hypervolemia type [E87.70] 3+ pitting edema [R60.9]. Head Up Operator visit was part of routine rounding. Spiritual Evaluation: The patient was resting in a bed attended by her sister. She was pleasant and engaged acti vely and with humor. She had requested Islam spiritual support and was glad to finally s ee the apartment groundskeeper. She was also interested in attending chapel services. The patient express ed that at times she feels anxious and overwhelmed when her room is very busy. She feels gr ateful for her care and she says that she has everything she needs at home. Her sister is s upportive as well as some friends in [place]. Spiritual Interventions: The apartment groundskeeper attended, offered care, witnessed patient's story, explored meaning, informed about chapel times and offered a supportive presence. Spiritual Outcomes: The patient seemed grateful for spiritual support. Spiritual Goals/Follow-up: Follow up as available with prayer support. lan of Care - Antonina Bhagat, PT - 04/28/2018 10:16 AM PST Problem: Patient Care Overview (Adult) Goal: Care Team Goals & Evaluation PROBLEM-RELATED GOALS: 1. Liv will remain free from falls/injuires through 04-30-18. 2. Liv will remain free from s/sx infection through 04-30-18. 3. Liv's pain will be adequately controlled and she will rate her pain 3/10 (or comforta ble level) through 04-30-18. 4. Tiny will maintain adequate oxygenation via oximetry with SpO2 >92% by 04/28/18. 5. Tiny will have breath sounds consistent with baseline function throughout stay and r everse airway bronchospasm when indicated. Reevaluate goal by 04/28/18. 6. Liv will demonstrate safe ambulation with cane or FWW 300' x 2 by 05/04/18. STRATEGY TO ACHIEVE GOALS: 1. Conduct hourly rounding during day shift and q2h during shift stacker. Answer call light i n person and/or in a timely manner. 2. Assess vitals w/temps and monitor lab values; notify MD if abnormalities are identified. 3. Assess pain PRN and medicate w/analgesics PRN; re-assess for effectiveness. Educate pt o n non-pharmacologic methods of pain reduction. 4. Monitor saturations via oximetry and titrate to order as indicated. 5. Administer respiratory medications as ordered and adjust with use of respiratory protoco ls. 6. PT intervention, pt education and participation. Outcome: Improving Physical Therapy Plan of Care Treatment Note Summary: Tiny has been participating in physical therapy for treatment of impaired f unctional mobility d/t anascara secondary to liver ETOH cirrhosis, abdominal pain and 30# we ight gain. Emphasis of session included progressive gait trg, trial with cane. Completed st anding strength/conditioning ex's at the sink and educated pt in seated ex's she can perform during day, per pt request. Encouraged walker when legs are wrapped, SBA of staff. Level of fatigue 5/10 at sessions end. Patient demonstrates progress towards functional goals as ev idenced by ability to mildly increase gait distance and gentle strengthening exercise perfor khadijah. Pt demonstrates functional weakness, impaired balance and coordination and significa nt deconditioning. Remaining barriers to discharge and functional limitations include decreased insight into s afety and deficits, decreased functional activity tolerance, decreased bed mobility, decreas ed functional transfers, decreased functional gait distance, decreased gait velocity, stairs at home, not able to navigate stairs, lives alone and medical status. Tiny will benefit from continued therapeutic intervention to address ongoing impairment s and increase safety and independence with activities necessary for safe discharge. Refer below for specific details regarding functional levels. Physical Therapy Discharge Recommendations are: Recommended discharge disposition: home with assist Post discharge physical therapy recommendation: outpatient therapy, ongoing low intensity therapy Equipment Recommendations: 2 wheeled walker (FWW), bariatric, cane (straight, single point ) Planned Interventions: bed mobility training, gait training, home exercise program, transf er training, strengthening, patient/family education Recommended Frequency: 4 times/wk Patient Status/Goals: Reflects last filed data and may be from multiple contributors. Gait Pt initially mildly unsteady with cane trial, however BLE wrapped with PATRICK bandages causing bulk and decreased flexibility at ankles. Pt desired trial with cane regardless, able to tr ansition for CGA to SBA with distance and stability improved. Rosa slow, widened NANY and lateral shifts Level of [place]: contact guard assist, stand by assist Assistive Device: cane (straight, single point) Distance (feet): 175' Transfers Pt completes transfers well with minimal object support, increased time/effort Sit-Stand, Level of [place]: supervised Stand-Sit, Level of [place]: supervised Yrz-Axbcy-Vle, Assistive Device: cane (straight, single point) Safety Issues: sequencing ability decreased, step length decreased, weight-shifting ability decreased Impairments: coordination impaired, impaired balance Bed Mobility Practiced bed mobility with bed flat, no railing to simulate home environment. Able to comp lete with increased time and effort, no phys A needed Assistive Device: none, bed rails Supine to Sit, Level of [place]: modified independent Sit to Supine, Level of [place]: modified independent Safety Issues: decreased use of legs for bridging/pushing Impairments: coordination impaired Balance Good sitting, fair with UE support static, fair - dynamically Therapeutic Exercise Added 2 standing ex's, sink support. Encouraged 3 walks in halls with nursing/therapy daily , FWW when legs are wrapped Standing exercises: shallow squats, hip ABDuction, heel raises/toe raises, knee flexion, ma rching Repetitions: 5-10 reps each Educated in seated toe raises, heel raises, LAQ Functional Endurance Impaired but mildly improved ROM WFL; LE's limited by large tissue mass/habitus Strength L LE Strength: 4/5 R LE Strength: 4/5 PT Goal Review Date Most Recent Value STG Review Date 05/04/18 at 04/27/2018 1206 Fqligm-Qmw-Tmpkiu Goal Most Recent Value STG Status met at 04/28/2018 1145 STG [place] Level modified independent at 04/27/2018 1206 STG Assistive Device none at 04/27/2018 1206 STG Comments simulate home environment at 04/27/2018 1206 Xzf-Msqxk-Gwc Goal Most Recent Value STG Status progressing at 04/28/2018 1145 STG [place] Level modified independent at 04/27/2018 1206 STG Comments with or w/o AD at 04/27/2018 1206 Dvr-Useuc-Bcw Goal Most Recent Value STG Status progressing at 04/28/2018 1145 STG [place] Level modified independent at 04/27/2018 1206 STG Comments with or w/o AD at 04/27/2018 1206 Gait Goal Most Recent Value STG Status progressing at 04/28/2018 1145 STG [place] Level modified independent at 04/27/2018 1206 STG Assistive Device 2 wheeled walker (FWW), bariatric, cane (straight, single point) at 0 04/27/2018 1206 STG Distance (feet) 300' x 2 at 04/27/2018 1206 Additional Goal #1 PT Most Recent Value STG Status progressing at 04/28/2018 1145 STG HEP instruction for strength/conditioning with verbal/demonstrated understanding by pt . at 04/27/2018 1206 Electronically signed by: Antonina Bhagat, PT, 04/28/2018 11:49 lan of Care - Naldo , Madeline Morales RN - 04/28/2018 3:24 AM PSTProblem: Patient Care Overview (Adult) Goal: Care Team Goals & Evaluation PROBLEM-RELATED GOALS: 1. Liv will remain free from falls/injuires through 04-30-18. 2. Liv will remain free from s/sx infection through 04-30-18. 3. Liv's pain will be adequately controlled and she will rate her pain 3/10 (or comforta ble level) through 04-30-18. 4. Tiny will maintain adequate oxygenation via oximetry with SpO2 >92% by 04/28/18. 5. Tiny will have breath sounds consistent with baseline function throughout stay and r everse airway bronchospasm when indicated. Reevaluate goal by 04/28/18. 6. Liv will demonstrate safe ambulation with cane or FWW 300' x 2 by 05/04/18. STRATEGY TO ACHIEVE GOALS: 1. Conduct hourly rounding during day shift and q2h during shift stacker. Answer call light i n person and/or in a timely manner. 2. Assess vitals w/temps and monitor lab values; notify MD if abnormalities are identified. 3. Assess pain PRN and medicate w/analgesics PRN; re-assess for effectiveness. Educate pt o n non-pharmacologic methods of pain reduction. 4. Monitor saturations via oximetry and titrate to order as indicated. 5. Administer respiratory medications as ordered and adjust with use of respiratory protoco ls. 6. PT intervention, pt education and participation. Outcome: Improving Goal Evaluation: heart regular with murmur, on tele. Lungs clear on R/A. Chronic Numbness to BLE and BUE. D /P weak. 3+ edema to BLE. Abdomen generalized edema. Bowel tones active. Last BM 04/27. Voidi ng without difficulty. Pain controlled with Toradol and vistaril. Has patrick wraps to BLE duri ng day, off at night. Appeared to sleep well between cares. lan of Care - Calista springer, Debra Sommer RN - 04/27/2018 6:39 PM PSTPt has had a good day today. Pt has been pleasa nt and cooperative with care. She is alert and oriented x4. She was able to get a shower tod ay. After the shower she was c/o 7/10 pain in her lower abdomen that traveled to the top of her abdomen. She was given Toradol, she said that did not help, she was then given Vistaril and she was still in pain. Then I asked her if wrapping her legs, compression, helped with t he pain and she said yes. So I wrapped her legs with the PATRICK wrap. She has since felt much b marcell. She is no longer crying. Her urine tonight was a darker color than it had been. The h eparin was held this AM due to platelets <120. She is resting comfortably in bed. Electronic ally signed by Debra Solorzano, RN at 04/27/2018 6:42 PM PSTPlan of Care - Antonina Bhagat PT - 04/27/2018 12:20 PM PST Problem: Patient Care Overview (Adult) Goal: Care Team Goals & Evaluation PROBLEM-RELATED GOALS: 1. Liv will remain free from falls/injuires through 04-30-18. 2. Liv will remain free from s/sx infection through 04-30-18. 3. Liv's pain will be adequately controlled and she will rate her pain 3/10 (or comforta ble level) through 04-30-18. 4. Tiny will maintain adequate oxygenation via oximetry with SpO2 >92% by 04/28/18. 5. Tiny will have breath sounds consistent with baseline function throughout stay and r everse airway bronchospasm when indicated. Reevaluate goal by 04/28/18. 6. Liv will demonstrate safe ambulation with cane or FWW 300' x 2 by 05/04/18. STRATEGY TO ACHIEVE GOALS: 1. Conduct hourly rounding during day shift and q2h during shift stacker. Answer call light i n person and/or in a timely manner. 2. Assess vitals w/temps and monitor lab values; notify MD if abnormalities are identified. 3. Assess pain PRN and medicate w/analgesics PRN; re-assess for effectiveness. Educate pt o n non-pharmacologic methods of pain reduction. 4. Monitor saturations via oximetry and titrate to order as indicated. 5. Administer respiratory medications as ordered and adjust with use of respiratory protoco ls. 6. PT intervention, pt education and participation. Physical Therapy Plan of Care Initial Evaluation, Treatment Note Summary: Tiny presents to physical therapy with impaired functional mobility d/t darleen scara secondary to liver ETOH cirrhosis, abdominal pain and 30# weight gain. Objective exam reveals impairments with aerobic capacity/endurance, gait, locomotion, and balance, edema. Pt mobilized in room setting with bariatric FWW and short distances w/o AD, intermittent fur niture or wall support. Also ambulated in halls, steadily, supervision provided with both. I nitiated gentle standing activities, see below, pt tolerated well. She demonstrates generali zed weakness and deconditioning. Recommend outpt PT after hospital d/c. Pt notes having gambino sportation services through [employer]. Will do trial with cane next visit and continue with strength/conditioning activities. Barriers to discharge and functional limitations include decreased insight into safety and deficits, decreased functional activity tolerance, decreased bed mobility, decreased functio nal transfers, decreased functional gait distance, decreased gait velocity, lives alone and medical status. Tiny will benefit from therapeutic intervention to address impairments and increase saf ety and independence with activities necessary for safe discharge. Refer below for specific details regarding functional levels. 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 Pt with recent hospitalization and 3 ER visits since Mar Potential available assistance at discharge: Significant Relationships: sister (aunt) Living Environment/Accessibility: Lives With: alone Living Arrangements: house Home Accessibility: no concerns Number of Stairs to Enter Home: 0 Number of Stairs Within Home: 0 Financial Concerns: none Transportation Available: family or friend will provide Patient/Family s Goals: less water weight and less medical problems Rehabilitation potential: good, to achieve stated therapy goals Physical Therapy Discharge Recommendations are: Recommended discharge disposition: home with assist Post discharge physical therapy recommendation: outpatient therapy, ongoing low intensity therapy Equipment Recommendations: 2 wheeled walker (FWW), bariatric, cane (straight, single point ) Planned Interventions: bed mobility training, gait training, home exercise program, transf er training, strengthening, patient/family education Recommended Frequency: 4 times/wk Patient Status/Goals: Reflects last filed data and may be from multiple contributors. Gait Pt ambulated steadily with her slippers and bariatric FWW in halls, supervision provided. N o LOB. Pt used no AD short distances in room with occasional furniture or wall support Level of [place]: stand by assist Assistive Device: 2 wheeled walker (FWW), bariatric Distance (feet): 150' + 15', 25' Transfers Pt transfers w/o phys A needed, increased time/effort. Able to sit and rise from low toilet with grab bar A Sit-Stand, Level of [place]: supervised Stand-Sit, Level of [place]: supervised Lga-Betul-Vkr, Assistive Device: 2 wheeled walker (FWW), bariatric Toilet, Level of [place]: supervised Toilet, Assistive Device: grab bars Safety Issues: sequencing ability decreased, step length decreased, weight-shifting ability decreased Impairments: coordination impaired Bed Mobility Pt with HOB fully elevated, no phys A needed for OOB, increased time/effort Assistive Device: HOB elevated, bed rails Supine to Sit, Level of [place]: supervised Sit to Supine, Level of [place]: not tested Safety Issues: decreased use of legs for bridging/pushing Impairments: coordination impaired Balance Good sitting, fair standing Therapeutic Exercise Standing with sink support, 5 reps on heel raises and hip ABD, 8 reps on mini squats Standing exercises: shallow squats, hip ABDuction, heel raises/toe raises Repetitions: 5-8 Functional Endurance fair - ROM WFL; LE's limited by large tissue mass/habitus Strength L LE Strength: 4/5 R LE Strength: 4/5 PT Goal Review Date Most Recent Value STG Review Date 05/04/18 at 04/27/2018 1206 Eczkmg-Npe-Frtrbo Goal Most Recent Value STG Status new at 04/27/2018 1206 STG [place] Level modified independent at 04/27/2018 1206 STG Assistive Device none at 04/27/2018 1206 STG Comments simulate home environment at 04/27/2018 1206 Lai-Pldjy-Wdb Goal Most Recent Value STG Status new at 04/27/2018 1206 STG [place] Level modified independent at 04/27/2018 1206 STG Comments with or w/o AD at 04/27/2018 1206 Oom-Kmjlw-Fts Goal Most Recent Value STG Status new at 04/27/2018 1206 STG [place] Level modified independent at 04/27/2018 1206 STG Comments with or w/o AD at 04/27/2018 1206 Gait Goal Most Recent Value STG Status new at 04/27/2018 1206 STG [place] Level modified independent at 04/27/2018 1206 STG Assistive Device 2 wheeled walker (FWW), bariatric, cane (straight, single point) at 0 04/27/2018 1206 STG Distance (feet) 300' x 2 at 04/27/2018 1206 Additional Goal #1 PT Most Recent Value STG Status new at 04/27/2018 1206 STG HEP instruction for strength/conditioning with verbal/demonstrated understanding by pt . at 04/27/2018 120 Electronically signed by: Antonina Bhagat, PT, 04/27/2018 12:16 lan of Care - Naldo , Madeline Morales RN - 04/27/2018 5:34 AM PSTProblem: Patient Care Overview (Adult) Goal: Care Team Goals & Evaluation PROBLEM-RELATED GOALS: 1. Liv will remain free from falls/injuires through 04-30-18. 2. Liv will remain free from s/sx infection through 04-30-18. 3. Liv's pain will be adequately controlled and she will rate her pain 3/10 (or comforta ble level) through 04-30-18. 4. Tiny will maintain adequate oxygenation via oximetry with SpO2 >92% by 04/28/18. 5. Tiny will have breath sounds consistent with baseline function throughout stay and r everse airway bronchospasm when indicated. Reevaluate goal by 04/28/18. STRATEGY TO ACHIEVE GOALS: 1. Conduct hourly rounding during day shift and q2h during shift stacker. Answer call light i n person and/or in a timely manner. 2. Assess vitals w/temps and monitor lab values; notify MD if abnormalities are identified. 3. Assess pain PRN and medicate w/analgesics PRN; re-assess for effectiveness. Educate pt o n non-pharmacologic methods of pain reduction. 4. Monitor saturations via oximetry and titrate to order as indicated. 5. Administer respiratory medications as ordered and adjust with use of respiratory protoco ls. Outcome: Improving Goal Evaluation: Murmur detected. Lungs clear on R/A. Chronic numbness to BLE and BUE. D/P weak. M/S 4/5. 3+ edema to BLE. Abdomen generalized edema. Bowel tones active. Last BM 04/25. Voiding without difficulty. Complains of pain. Toradol and vistaril given. Ambulated to bathroom SBA. Appear ed to sleep well between cares. lan of Care - [facility] Eder salvador, BROTH MIXER - 04/26/2018 4:07 PM PSTProblem: Patient Care Overview (Adult) Goal: Care Team Goals & Evaluation PROBLEM-RELATED GOALS: 1. Liv will remain free from falls/injuires through 04-30-18. 2. Liv will remain free from s/sx infection through 04-30-18. 3. Liv's pain will be adequately controlled and she will rate her pain 3/10 (or comforta ble level) through 04-30-18. 4. Tiny will maintain adequate oxygenation via oximetry with SpO2 >92% by 04/28/18. 5. Tiny will have breath sounds consistent with baseline function throughout stay and r everse airway bronchospasm when indicated. Reevaluate goal by 04/28/18. STRATEGY TO ACHIEVE GOALS: 1. Conduct hourly rounding during day shift and q2h during shift stacker. Answer call light i n person and/or in a timely manner. 2. Assess vitals w/temps and monitor lab values; notify MD if abnormalities are identified. 3. Assess pain PRN and medicate w/analgesics PRN; re-assess for effectiveness. Educate pt o n non-pharmacologic methods of pain reduction. 4. Monitor saturations via oximetry and titrate to order as indicated. 5. Administer respiratory medications as ordered and adjust with use of respiratory protoco ls. Outcome: Unchanged Goal Evaluation: Tiny oxygen saturation is SpO2: 99 % on room air and a heart rate of 84. Breath sounds are clear, diminished and post breathing treatment breath sounds are no change. Pt has a go od cough. Pt's respirations are unlabored, pattern regular, no shortness of breath reported with expansion asymmetric, no use of accessory muscles, patient has hx of asthma. Albuterol inhaler at home Electronically signed by: Eder Morejon, BROTH MIXER 04/26/2018 16:07 lan of Care - Donald mcdermott, Madeline Morales RN - 04/26/2018 3:31 AM PSTProblem: Patient Care Overview (Adult) Goal: Care Team Goals & Evaluation PROBLEM-RELATED GOALS: 1. Liv will remain free from falls/injuires through 04-30-18. 2. Liv will remain free from s/sx infection through 04-30-18. 3. Liv's pain will be adequately controlled and she will rate her pain 3/10 (or comforta ble level) through 04-30-18. 4. Tiny will maintain adequate oxygenation via oximetry with SpO2 >92% by 04/28/18. 5. Tiny will have breath sounds consistent with baseline function throughout stay and r everse airway bronchospasm when indicated. Reevaluate goal by 04/28/18. STRATEGY TO ACHIEVE GOALS: 1. Conduct hourly rounding during day shift and q2h during shift stacker. Answer call light i n person and/or in a timely manner. 2. Assess vitals w/temps and monitor lab values; notify MD if abnormalities are identified. 3. Assess pain PRN and medicate w/analgesics PRN; re-assess for effectiveness. Educate pt o n non-pharmacologic methods of pain reduction. 4. Monitor saturations via oximetry and titrate to order as indicated. 5. Administer respiratory medications as ordered and adjust with use of respiratory protoco ls. Outcome: Improving Goal Evaluation: heart regular with murmur on tele. Lungs diminished on R/A. Chronic numbness to BLE/BUE. M/S 4/5. 3+ edema to BLE. Abdomen distended. Complains of some pain to abdomen. voiding with out difficulty. Bowel tones active. Last BM 04/25/18. Appeared to sleep well between cares. lan of [facility] Robert macdonald, Eva Nicolas RRT - 04/25/2018 8:50 PM PSTProblem: Patient Care Overview (Adult) Goal: Care Team Goals & Evaluation PROBLEM-RELATED GOALS: 1. Liv will remain free from falls/injuires through 04-30-18. 2. Liv will remain free from s/sx infection through 04-30-18. 3. Oscars pain will be adequately controlled and she will rate her pain 3/10 (or comforta ble level) through 04-30-18. 4. Tiny will maintain adequate oxygenation via oximetry with SpO2 >92% by 04/28/18. 5. Tiny will have breath sounds consistent with baseline function throughout stay and r everse airway bronchospasm when indicated. Reevaluate goal by 04/28/18. STRATEGY TO ACHIEVE GOALS: 1. Conduct hourly rounding during day shift and q2h during shift stacker. Answer call light i n person and/or in a timely manner. 2. Assess vitals w/temps and monitor lab values; notify MD if abnormalities are identified. 3. Assess pain PRN and medicate w/analgesics PRN; re-assess for effectiveness. Educate pt o n non-pharmacologic methods of pain reduction. 4. Monitor saturations via oximetry and titrate to order as indicated. 5. Administer respiratory medications as ordered and adjust with use of respiratory protoco ls. Outcome: Unchanged Goal Evaluation: Liv denies shortness of breath, SpO2: 99 % on room air, breath sounds are clear througho ut. History of asthma and COPD of which she uses Albuterol via nebulizer or inhaler as need ed and Dulera. History of sleep apnea however she was unable to tolerate and "turned her eq uipment back in". lan of Care - Madeline Hollis RN - 04/25/2018 4:18 AM PSTProblem: Patient Care Overview (Adult) Goal: Care Team Goals & Evaluation PROBLEM-RELATED GOALS: 1. Liv will remain free from falls/injuires through 04-30-18. 2. Liv will remain free from s/sx infection through 04-30-18. 3. Liv's pain will be adequately controlled and she will rate her pain 3/10 (or comforta ble level) through 04-30-18. 4. Tiny will maintain adequate oxygenation via oximetry with SpO2 >92% by 04/28/18. 5. Tiny will have breath sounds consistent with baseline function throughout stay and r everse airway bronchospasm when indicated. Reevaluate goal by 04/28/18. STRATEGY TO ACHIEVE GOALS: 1. Conduct hourly rounding during day shift and q2h during shift stacker. Answer call light i n person and/or in a timely manner. 2. Assess vitals w/temps and monitor lab values; notify MD if abnormalities are identified. 3. Assess pain PRN and medicate w/analgesics PRN; re-assess for effectiveness. Educate pt o n non-pharmacologic methods of pain reduction. 4. Monitor saturations via oximetry and titrate to order as indicated. 5. Administer respiratory medications as ordered and adjust with use of respiratory protoco ls. Outcome: Improving Goal Evaluation: Heart regular on tele. Lungs diminished on R/A. Numbness to BLE and BUE. M/S 4/5. Generaliz ed edema to all extremities. SBA, FWW to bathroom. Voiding without difficulty. Bowel tones a ctive. Last BM 04/24/18. Complains of pain. Dilaudid given. Appeared to sleep well between ca res. lan of Care - Kyle Nichols RRT - 04/24/2018 10:17 PM PSTProblem: Patient Care Overview (Adult) Goal: Care Team Goals & Evaluation PROBLEM-RELATED GOALS: 1. Liv will remain free from falls/injuires through 04-30-18. 2. Liv will remain free from s/sx infection through 04-30-18. 3. Liv's pain will be adequately controlled and she will rate her pain 3/10 (or comforta ble level) through 04-30-18. 4. Tiny will maintain adequate oxygenation via oximetry with SpO2 >92% by 04/28/18. 5. Tiny will have breath sounds consistent with baseline function throughout stay and r everse airway bronchospasm when indicated. Reevaluate goal by 04/28/18. STRATEGY TO ACHIEVE GOALS: 1. Conduct hourly rounding during day shift and q2h during shift stacker. Answer call light i n person and/or in a timely manner. 2. Assess vitals w/temps and monitor lab values; notify MD if abnormalities are identified. 3. Assess pain PRN and medicate w/analgesics PRN; re-assess for effectiveness. Educate pt o n non-pharmacologic methods of pain reduction. 4. Monitor saturations via oximetry and titrate to order as indicated. 5. Administer respiratory medications as ordered and adjust with use of respiratory protoco ls. Outcome: Unchanged Goal Evaluation: Patient has long history of medical problem. Obesity, Asthma, Cirrhosis, SH[place], but non comp liant with CPAP. Patient on room air sating 100%. BS clear and diminished throughout. Will c ontinue to monitor and treat as needed. lan of Care - Mary Cabrera, [facility] - 04/24/2018 1:06 PM PSTDischarge Planning Goal: Pt to be discharged in a safe manner Summary /Intervention: Met with patient to discuss potential discharge needs. Tiny is alert and well oriented, lying in bed. Pt states she lives alone in a single level [facility] in [place]. She appears to be well co nnected with [facility]. She has a nurse, Luis Antonio who visits q . Pt also states she is connected with Meal delivery. States her sister is very supportive, f urther describes having several friends who "look in on me during the day". She states she typically walks with a cane, she also has a front wheeled walker (which is w ith her in her room). Pt reports that she was in [place] for 22 days, only recently discharged home. Pt hopes to be able to discharge directly home. States her sister will provide transportati on. Plan: CM to follow Anticipate return home with support from [facility]. Keep [facility] updated on her discharge needs Electronically signed by: HEBER Kramer 04/24/2018 13:06 lan of Care - Shani Gomez RRT - 04/24/2018 3:30 AM PSTProblem: Patient Care Overview (Adult) Goal: Care Team Goals & Evaluation PROBLEM-RELATED GOALS: 1. Liv will remain free from falls/injuires through 04-30-18. 2. Liv will remain free from s/sx infection through 04-30-18. 3. Liv's pain will be adequately controlled and she will rate her pain 3/10 (or comforta ble level) through 04-30-18. STRATEGY TO ACHIEVE GOALS: 1. Conduct hourly rounding during day shift and q2h during shift stacker. Answer call light i n person and/or in a timely manner. 2. Assess vitals w/temps and monitor lab values; notify MD if abnormalities are identified. 3. Assess pain PRN and medicate w/analgesics PRN; re-assess for effectiveness. Educate pt o n non-pharmacologic methods of pain reduction. Outcome: Improving Goal Evaluation: Tiny oxygen saturation is SpO2: 98 % on room air and a heart rate of 82. Breath sounds are clear, diminished and post breathing treatment breath sounds are no change. Pt has a go od cough. lan of Care - Joanne Chairez RN - 04/24/2018 3:00 AM PSTProblem: Patient Care Overview (Adult) Goal: Care Team Goals & Evaluation PROBLEM-RELATED GOALS: 1. Liv will remain free from falls/injuires through 04-30-18. 2. Liv will remain free from s/sx infection through 04-30-18. 3. Liv's pain will be adequately controlled and she will rate her pain 3/10 (or comforta ble level) through 04-30-18. STRATEGY TO ACHIEVE GOALS: 1. Conduct hourly rounding during day shift and q2h during shift stacker. Answer call light i n person and/or in a timely manner. 2. Assess vitals w/temps and monitor lab values; notify MD if abnormalities are identified. 3. Assess pain PRN and medicate w/analgesics PRN; re-assess for effectiveness. Educate pt o n non-pharmacologic methods of pain reduction. Outcome: Improving Goal Evaluation: Liv arrived to the unit from the ED around 2100 and was able to ambulate independently t o the bed. A&O x4, CMS intact however pt c/o chronic numbness/tingling present in her bilateral finger s and toes, VSS, c/o SOB on exertion, lungs clear on RA, bowel tones active x4 (last BM was 2-7-19), up ambulating to the bathroom voiding light ivanna urine w/o difficulty, tolerating diet well, denied n/v, educated pt on importance of fluid restriction, calls appropriately a nd is able to make needs known. Liv c/o 10/10 intermittent, sharp pain to her R lower abdomen; medicated w/0.8mg IV Dila udid PRN. Umanzor cath ordered for pt however she refused placement stating every time she's had a fole y in the past she's had very bad UTI's as a result that were difficult to resolve. documented in this encounter Plan of Treatment + +------+--------+ + + | Name | Type | Priori | Associated Diagnoses | Date/Time | | | | ty | | | + +------+--------+ + + | ED INFORMATION | KAYLA | Routin | | 04/23/2018 11:39 AM | | EXCHANGE | | e | | PST | + +------+--------+ + + documented as of this encounter Procedures + +--------+ + + + | Procedure Name | Priori | Date/Time | Associated Diagnosis | Comments | | | ty | | | | + +--------+ + + + | EXTRA MISHA OBRIEN | Routin | 05/06/2018 | | Results for this | | TUBE | e | 5:10 AM | | procedure are in the | | | | PST | | results section. | + +--------+ + + + | BASIC METABOLIC | Routin | 05/06/2018 | | Results for this | | PANEL | e | 5:10 AM | | procedure are in the | | | | PST | | results section. | + +--------+ + + + | EXTRA LAVENDER TOP | Routin | 05/05/2018 | | Results for this | | TUBE | e | 5:37 AM | | procedure are in the | | | | PST | | results section. | + +--------+ + + + | MAGNESIUM | Routin | 05/05/2018 | | Results for this | | | e | 5:37 AM | | procedure are in the | | | | PST | | results section. | + +--------+ + + + | BASIC METABOLIC | Routin | 05/05/2018 | | Results for this | | PANEL | e | 5:37 AM | | procedure are in the | | | | PST | | results section. | + +--------+ + + + | EXTRA LAVENDER TOP | Routin | 05/04/2018 | | Results for this | | TUBE | e | 5:01 AM | | procedure are in the | | | | PST | | results section. | + +--------+ + + + | MAGNESIUM | Routin | 05/04/2018 | | Results for this | | | e | 5:01 AM | | procedure are in the | | | | PST | | results section. | + +--------+ + + + | BASIC METABOLIC | Routin | 05/04/2018 | | Results for this | | PANEL | e | 5:01 AM | | procedure are in the | | | | PST | | results section. | + +--------+ + + + | CBC WITH | Routin | 05/03/2018 | | Results for this | | DIFFERENTIAL | e | 5:06 AM | | procedure are in the | | | | PST | | results section. | + +--------+ + + + | MAGNESIUM | Routin | 05/03/2018 | | Results for this | | | e | 5:06 AM | | procedure are in the | | | | PST | | results section. | + +--------+ + + + | COMPREHENSIVE | Routin | 05/03/2018 | | Results for this | | METABOLIC PANEL | e | 5:06 AM | | procedure are in the | | | | PST | | results section. | + +--------+ + + + | EXTRA MISHA OBRIEN | Routin | 05/02/2018 | | Results for this | | TUBE | e | 6:30 AM | | procedure are in the | | | | PST | | results section. | + +--------+ + + + | MAGNESIUM | Routin | 05/02/2018 | | Results for this | | | e | 5:48 AM | | procedure are in the | | | | PST | | results section. | + +--------+ + + + | BASIC METABOLIC | Routin | 05/02/2018 | | Results for this | | PANEL | e | 5:48 AM | | procedure are in the | | | | PST | | results section. | + +--------+ + + + | ECG 12 LEAD | STAT | 05/01/2018 | | Results for this | | | | 5:49 PM | | procedure are in the | | | | PST | | results section. | + +--------+ + + + | BASIC METABOLIC | Routin | 05/01/2018 | | Results for this | | PANEL | e | 6:15 AM | | procedure are in the | | | | PST | | results section. | + +--------+ + + + | VITAMIN B-12 | Routin | 05/01/2018 | | Results for this | | | e | 5:45 AM | | procedure are in the | | | | PST | | results section. | + +--------+ + + + | CBC WITH | Routin | 05/01/2018 | | Results for this | | DIFFERENTIAL | e | 5:45 AM | | procedure are in the | | | | PST | | results section. | + +--------+ + + + | FOLATE | Routin | 05/01/2018 | | Results for this | | | e | 5:45 AM | | procedure are in the | | | | PST | | results section. | + +--------+ + + + | CBC WITH | Routin | 04/30/2018 | | Results for this | | DIFFERENTIAL | e | 6:12 AM | | procedure are in the | | | | PST | | results section. | + +--------+ + + + | MAGNESIUM | Routin | 04/30/2018 | | Results for this | | | e | 6:11 AM | | procedure are in the | | | | PST | | results section. | + +--------+ + + + | BASIC METABOLIC | Routin | 04/30/2018 | | Results for this | | PANEL | e | 6:11 AM | | procedure are in the | | | | PST | | results section. | + +--------+ + + + | RETIC COUNT | Routin | 04/29/2018 | | Results for this | | | e | 7:31 AM | | procedure are in the | | | | PST | | results section. | + +--------+ + + + | MAGNESIUM | Routin | 04/29/2018 | | Results for this | | | e | 7:31 AM | | procedure are in the | | | | PST | | results section. | + +--------+ + + + | FERRITIN | Routin | 04/29/2018 | | Results for this | | | e | 7:31 AM | | procedure are in the | | | | PST | | results section. | + +--------+ + + + | BASIC METABOLIC | Routin | 04/29/2018 | | Results for this | | PANEL | e | 7:31 AM | | procedure are in the | | | | PST | | results section. | + +--------+ + + + | CBC WITH | Routin | 04/28/2018 | | Results for this | | DIFFERENTIAL | e | 6:07 AM | | procedure are in the | | | | PST | | results section. | + +--------+ + + + | MAGNESIUM | Routin | 04/28/2018 | | Results for this | | | e | 6:07 AM | | procedure are in the | | | | PST | | results section. | + +--------+ + + + | BASIC METABOLIC | Routin | 04/28/2018 | | Results for this | | PANEL | e | 6:07 AM | | procedure are in the | | | | PST | | results section. | + +--------+ + + + | CBC NO DIFFERENTIAL | Routin | 04/27/2018 | | Results for this | | | e | 6:07 AM | | procedure are in the | | | | PST | | results section. | + +--------+ + + + | MAGNESIUM | Routin | 04/27/2018 | | Results for this | | | e | 6:07 AM | | procedure are in the | | | | PST | | results section. | + +--------+ + + + | BASIC METABOLIC | Routin | 04/27/2018 | | Results for this | | PANEL | e | 6:07 AM | | procedure are in the | | | | PST | | results section. | + +--------+ + + + | CBC NO DIFFERENTIAL | Routin | 04/26/2018 | | Results for this | | | e | 6:38 AM | | procedure are in the | | | | PST | | results section. | + +--------+ + + + | MAGNESIUM | Routin | 04/26/2018 | | Results for this | | | e | 6:38 AM | | procedure are in the | | | | PST | | results section. | + +--------+ + + + | BASIC METABOLIC | Routin | 04/26/2018 | | Results for this | | PANEL | e | 6:38 AM | | procedure are in the | | | | PST | | results section. | + +--------+ + + + | PROTIME INR | Routin | 04/25/2018 | | Results for this | | | e | 5:56 AM | | procedure are in the | | | | PST | | results section. | + +--------+ + + + | CBC NO DIFFERENTIAL | Routin | 04/25/2018 | | Results for this | | | e | 5:56 AM | | procedure are in the | | | | PST | | results section. | + +--------+ + + + | MAGNESIUM | Routin | 04/25/2018 | | Results for this | | | e | 5:56 AM | | procedure are in the | | | | PST | | results section. | + +--------+ + + + | HEPATIC FUNCTION | Routin | 04/25/2018 | | Results for this | | PANEL | e | 5:56 AM | | procedure are in the | | | | PST | | results section. | + +--------+ + + + | BASIC METABOLIC | Routin | 04/25/2018 | | Results for this | | PANEL | e | 5:56 AM | | procedure are in the | | | | PST | | results section. | + +--------+ + + + | MAGNESIUM | Routin | 04/24/2018 | | Results for this | | | e | 8:11 PM | | procedure are in the | | | | PST | | results section. | + +--------+ + + + | BASIC METABOLIC | Routin | 04/24/2018 | | Results for this | | PANEL | e | 8:11 PM | | procedure are in the | | | | PST | | results section. | + +--------+ + + + | TROPONIN I | Routin | 04/24/2018 | | Results for this | | | e | 6:03 PM | | procedure are in the | | | | PST | | results section. | + +--------+ + + + | TROPONIN I | Routin | 04/24/2018 | | Results for this | | | e | 12:17 PM | | procedure are in the | | | | PST | | results section. | + +--------+ + + + | B TYPE NATRIURETIC | Routin | 04/24/2018 | | Results for this | | PEPTIDE | e | 12:17 PM | | procedure are in the | | | | PST | | results section. | + +--------+ + + + | MAGNESIUM | Routin | 04/24/2018 | | Results for this | | | e | 12:17 PM | | procedure are in the | | | | PST | | results section. | + +--------+ + + + | BASIC METABOLIC | Routin | 04/24/2018 | | Results for this | | PANEL | e | 12:17 PM | | procedure are in the | | | | PST | | results section. | + +--------+ + + + | TROPONIN I | STAT | 04/24/2018 | | Results for this | | | | 8:52 AM | | procedure are in the | | | | PST | | results section. | + +--------+ + + + | ECG 12 LEAD | Routin | 04/24/2018 | | Results for this | | | e | 7:57 AM | | procedure are in the | | | | PST | | results section. | + +--------+ + + + | CBC NO DIFFERENTIAL | Routin | 04/24/2018 | | Results for this | | | e | 5:45 AM | | procedure are in the | | | | PST | | results section. | + +--------+ + + + | MAGNESIUM | Routin | 04/24/2018 | | Results for this | | | e | 5:45 AM | | procedure are in the | | | | PST | | results section. | + +--------+ + + + | BASIC METABOLIC | Routin | 04/24/2018 | | Results for this | | PANEL | e | 5:45 AM | | procedure are in the | | | | PST | | results section. | + +--------+ + + + | XR CHEST AP PORTABLE | STAT | 04/23/2018 | | Results for this | | | | 2:21 PM | | procedure are in the | | | | PST | | results section. | + +--------+ + + + | CT ABDOMEN PELVIS WO | STAT | 04/23/2018 | | Results for this | | CONTRAST | | 1:16 PM | | procedure are in the | | | | PST | | results section. | + +--------+ + + + | TROPONIN I | STAT | 04/23/2018 | | Results for this | | | | 1:12 PM | | procedure are in the | | | | PST | | results section. | + +--------+ + + + | PROTIME INR | STAT | 04/23/2018 | | Results for this | | | | 1:12 PM | | procedure are in the | | | | PST | | results section. | + +--------+ + + + | CBC WITH | STAT | 04/23/2018 | | Results for this | | DIFFERENTIAL | | 1:12 PM | | procedure are in the | | | | PST | | results section. | + +--------+ + + + | B TYPE NATRIURETIC | STAT | 04/23/2018 | | Results for this | | PEPTIDE | | 1:12 PM | | procedure are in the | | | | PST | | results section. | + +--------+ + + + | LACTIC ACID | STAT | 04/23/2018 | | Results for this | | | | 1:12 PM | | procedure are in the | | | | PST | | results section. | + +--------+ + + + | AMMONIA | STAT | 04/23/2018 | | Results for this | | | | 1:12 PM | | procedure are in the | | | | PST | | results section. | + +--------+ + + + | ALCOHOL | STAT | 04/23/2018 | | Results for this | | | | 1:12 PM | | procedure are in the | | | | PST | | results section. | + +--------+ + + + | COMPREHENSIVE | STAT | 04/23/2018 | | Results for this | | METABOLIC PANEL | | 1:12 PM | | procedure are in the | | | | PST | | results section. | + +--------+ + + + | ECG 12 LEAD | STAT | 04/23/2018 | | Results for this | | | | 12:51 PM | | procedure are in the | | | | PST | | results section. | + +--------+ + + + | OXYGEN THERAPY | STAT | 04/23/2018 | | | | | | 12:40 PM | | | | | | PST | | | + +--------+ + + + | ED INFORMATION | Routin | 04/23/2018 | | | | EXCHANGE | e | 11:39 AM | | | | | | PST | | | + +--------+ + + + +---+--------+ | | | | | Proced | | | ure | | | Note - | | | Candace, | | | Lab In | | | | | | Hlseve | | | n - | | | | | | 2018 | | | 11:40 | | | AM PST | | | | | | Format | | | ting | | | of | | | this | | | note | | | might | | | be | | | differ | | | ent | | | from | | | the | | | origin | | | al.COL | | | LECTIV | | | E?NOTI | | | FICATI | | | ON?/ | | | | | | 9 | | | 11:35? | | | SHEOSH | | | IPS, | | | MARGAR | | | ET | | | L?MRN: | | | | | | [id number] | | | [id number] | | | riteri | | | a Met | | | Care | | | Guidel | | | varsha | | | 4 | | | visits | | | in | | | 60Secu | | | rity | | | and | | | Safety | | | No | | | recent | | | | | | Securi | | | ty | | | Events | | | | | | curren | | | tly on | | | | | | fileED | | | Care | | | Guidel | | | varsha [facility] [place] [facility] | | | alLast | | | | | | Update | | | d: | | | 4/11/1 | | | 8 2:00 | | | PM | | | Care | | | Recomm | | | endati | | | on:ENC | | | OURAGE | | | | | | PATIEN | | | T TO | | | CONNEC | | | T WITH | | | | | | [facility] | | | [facility] | | | [facility] | | | ITY | | | HEALTH | | | NURSE | | | AT | | | [phone] | | .These | | | are | | | guidel | | | varsha | | | and | | | the | | | provid | | | er | | | should | | | | | | exerci | | | se | | | clinic | | | al | | | judgme | | | nt | | | when | | | provid | | | ing | | | care.C | | | are | | | Histor | | | ySubst | | | ance | | | Use/Ov | | | erdose | | | 7/19/1 | | | 7 | | | 12:00 | | | AM | | | [facility] [place] [facility] | | [facility] | | | alENCO | | | URAGE | | | PATIEN | | | T TO | | | PURSUE | | | | | | ALCOHO | | | L | | | ABSTIN | | | ENCE | | | PROGRA | | | M.Soci | | | al9/17 | | | /18 | | | 12:00 | | | AM | | | [facility] [place] [facility] | | | [facility] | | | alPATI | | | ENT | | | CONTAC | | | T | | | NUMBER | | | IS | | | INVALI | | | DMedic | | | al/[place] | | | [email or web address] | | | /30/19 | | | 12:00 | | | AM | | | [facility] [place] [facility] | | | [facility] | | | al | | | PATIEN | | | T PCP | | | HAS | | | REFERR | | | ED | | | PATIEN | | | T TO A | | | | | | GASTRO | | | ENTERO | | | LOGIST | | | DR | | | [place] | | | [place] | [place] | | | | | | PATIEN | | | T HAS | | | AN APT | | | WITH | | | GASTRO | | | ENTERO | | | LOGIST | | | ON | | | 02/13/ | | | 19. | | | DR | | | [place] | | | [place] | | | CONTAC | | | T | | | INFO: | | | [phone] | | | [phone] | | | 9/20/1 | | | 8 | | | 12:00 | | | AM | | | [facility] [place] [facility] | | | [facility] | | | al | | | PATIEN | | | T HAS | | | AN APT | | | TO | | | SEE | | | PCP ON | | | | | | 12/04/ | | | 18 @ | | | 1:30PM | | | . | | | PATIEN | | | T DID | | | NOT | | | SHOW | | | UP TO | | | APT ON | | | | | | 11/30/ | | | 18. | | | PLEASE | | | REFER | | | | | | PATIEN | | | T TO | | | [facility] | | | - | | | PATIEN | | | T CAN | | | BE | | | SEEN | | | SAME | | | DAY IF | | | | | | PATIEN | | | T | | | CALLS | | | RIGHT | | | AWAY | | | IN THE | | | | | | MORNIN | | | G. | | | PATIEN | | | T DOES | | | NOT | | | ACCEPT | | | ANY | | | HELP | | | OR | | | ASSIST | | | ANCE | | | FROM | | | THE | | | COMMUN | | | ITY | | | HEALTH | | | RNS | | | AT | | | [facility] | | | [facility].7 | | | /19/17 | | | 12:00 | | | AM | | | [facility] [place] | | [facility] | | | [facility] | | | alHX: | | | DIABET | | | ES, | | | HTN, | | | HYPERL | | | IPIDEM | | | IA, | | | RECTAL | | | | | | BLEEDI | | | NG, | | | ASTHMA | | | , | | | COPD, | | | PNEUMO | | | ZECHARIAH, | | | ANEMIA | | | SURGIC | | | AL HX: | | | | | | TONSIL | | | S, | | | COLONO | | | SCOPY, | | | CYST | | | REMOVA | | | L | | | UNDER | | | ARM, | | | APPYPr | | | escrip | | | tion | | | Drug | | | Report | | | (12 | | | Mo.)PD | | | MP | | | query | | | found | | | no | | | report | | | .E.D. | | | Visit | | | Count | | | (12 | | | mo.)Fa | | | cility | | | | | | Visits | | | Low | | | Acuity | | | | | | Provid | | | ence | | | St. | | | [facility] | [facility] | | | l | | | Center | | | 1 0 | | | [facility] [place] | | [facility] | | | Hospit | | | al 10 | | | 0 | | | Total | | | 11 0 | | | Note: | | | Visits | | | | | | indica | | | te | | | total | | | known | | | visits | | | . | | | Medica | | | id Low | | | | | | Acuity | | | Dx | | | are | | | the | | | number | | | of | | | primar | | | y | | | diagno | | | ses on | | | the | | | Medica | | | id's | | | Low | | | Acuity | | | dx | | | list. | | | | | | Recent | | | | | | Emerge | | | ncy | | | Depart | | | ment | | | Visit | | | Summar | | | yShowi | | | ng 10 | | | most | | | recent | | | | | | visits | | | out | | | of 11 | | | in the | | | past | | | 12 | | | months | | | Date | | | Facili | | | ty | | | City | | | State | | | Type | | | Diagno | | | ses or | | | Chief | | | | | | Compla | | | int | | | Feb 8, | | | 2019 | | | Provid | | | ence | | | [facility] [place] | [place] | | | Emerge | | | ncy | | | abd | | | pain,n | | | ausea, | | | bloati | | | ng | | | Feb 6, | | | 2019 | | [facility] [place] [facility] [place] | | | Emerge | | | ncy | | | Chief | | | Compla | | | int: | | | CHEST | | | PAIN/S | | | OB | | | Feb 1, | | | 2019 | | | [facility] [place] [facility] | [facility] [place] | | | Emerge | | | ncy | | | Other | | | | | | cholel | | | ithias | | | is | | | withou | | | t | | | obstru | | | ction | | | | | | Unspec | | | ified | | | cirrho | | | sis of | | | liver | | | | | | Unspec | | | ified | | | abdomi | | | nal | | | pain | | | | | | Other | | | long | | | term | | | (curre | | | nt) | | | drug | | | therap | | | y | | | Chroni | | | c | | | obstru | | | ctive | | | pulmon | | | yessica | | | diseas | | | e, | | | unspec | | | ified | | | | | | Essent | | | ial | | | (prima | | | ry) | | | hypert | | | ension | | | | | | Anemia | | | , | | | unspec | | | ified | | | | | | Type 2 | | | | | | diabet | | | es | | | mellit | | | us | | | withou | | | t | | | compli | | | cation | | | s | | | Hyperl | | | ipidem | | | ia, | | | unspec | | | ified | | | | | | Major | | | depres | | | sive | | | disord | | | er, | | | single | | | | | | episod | | | e, | | | unspec | | | ified | | | Bebeot | | | 29, | | | 2019 | | | [facility] [place] [facility] [place] | [place] | | | Emerge | | | ncy | | | Upper | | | | | | abdomi | | | nal | | | pain, | | | unspec | | | ified | | | | | | Locali | | | zed | | | edema | | | | | | Unspec | | | ified | | | cirrho | | | sis of | | | liver | | | | | | Anemia | | | , | | | unspec | | | ified | | | | | | Hyperl | | | ipidem | | | ia, | | | unspec | | | ified | | | | | | Essent | | | ial | | | (prima | | | ry) | | | hypert | | | ension | | | | | | Chroni | | | c | | | obstru | | | ctive | | | pulmon | | | yessica | | | diseas | | | e, | | | unspec | | | ified | | | | | | Major | | | depres | | | sive | | | disord | | | er, | | | single | | | | | | episod | | | e, | | | unspec | | | ified | | | | | | Other | | | long | | | term | | | (curre | | | nt) | | | drug | | | therap | | | y | | | Type 2 | | | | | | diabet | | | es | | | mellit | | | us | | | withou | | | t | | | compli | | | cation | | | s Dec | | | 31, | | | 2018 | | | [facility] [place] [facility] [place] | | | Emerge | | | ncy | | | Chief | | | Compla | | | int: | | | ABD | | | PAIN | | | Dec 3, | | | 2018 | | [facility] [place] [facility] [place] | | | Emerge | | | ncy | | | Cough | | | | | | Anemia | | | , | | | unspec | | | ified | | | | | | Chroni | | | c | | | obstru | | | ctive | | | pulmon | | | yessica | | | diseas | | | e, | | | unspec | | | ified | | | | | | Major | | | depres | | | sive | | | disord | | | er, | | | single | | | | | | episod | | | e, | | | unspec | | | ified | | | | | | Type 2 | | | | | | diabet | | | es | | | mellit | | | us | | | withou | | | t | | | compli | | | cation | | | s | | | Person | | | al | | | histor | | | y of | | | pneumo | | | zechariah | | | (recur | | | rent) | | | | | | Other | | | long | | | term | | | (curre | | | nt) | | | drug | | | therap | | | y Sep | | | 19, | | | 2018 | | [facility] [place] [facility] [place] | | | Emerge | | | ncy | | | | | | Unspec | | | ified | | | abdomi | | | nal | | | pain | | | | | | Unspec | | | ified | | | asthma | | | , | | | uncomp | | | licate | | | d | | | Person | | | al | | | histor | | | y of | | | pneumo | | | zechariah | | | (recur | | | rent) | | | | | | Alcoho | | | lic | | | cirrho | | | sis of | | | liver | | | | | | withou | | | t | | | ascite | | | s | | | Other | | | long | | | term | | | (curre | | | nt) | | | drug | | | therap | | | y | | | Anemia | | | , | | | unspec | | | ified | | | | | | Essent | | | ial | | | (prima | | | ry) | | | hypert | | | ension | | | | | | Alcoho | | | lic | | | gastri | | | tis | | | withou | | | t | | | bleedi | | | ng | | | Type 2 | | | | | | diabet | | | es | | | mellit | | | us | | | withou | | | t | | | compli | | | cation | | | s | | | Hyperl | | | ipidem | | | ia, | | | unspec | | | ified | | | Sep | | | 15, | | | 2018 | | | [facility] | [place] | | [facility] | | | [place] | | | [place] | | | Emerge | | | ncy | | | | | | Essent | | | ial | | | (prima | | | ry) | | | hypert | | | ension | | | | | | Type 2 | | | | | | diabet | | | es | | | mellit | | | us | | | withou | | | t | | | compli | | | cation | | | s | | | David | | | ioma | | | of | | | other | | | sites | | | | | | Ocular | | | pain, | | | right | | | eye | | | | | | Other | | | long | | | term | | | (curre | | | nt) | | | drug | | | therap | | | y Ben | | | 27, | | | 2018 | | | [facility] | [place] | | [facility] | | | [place] | | | [place] | | | Emerge | | | ncy | | | | | | Anemia | | | , | | | unspec | | | ified | | | | | | Chroni | | | c | | | sinusi | | | tis, | | | unspec | | | ified | | | | | | Iron | | | defici | | | ency | | | anemia | | | , | | | unspec | | | ified | | | | | | Type 2 | | | | | | diabet | | | es | | | mellit | | | us | | | withou | | | t | | | compli | | | cation | | | s | | | Other | | | long | | | term | | | (curre | | | nt) | | | drug | | | therap | | | y | | | Unspec | | | ified | | | asthma | | | , | | | uncomp | | | licate | | | d | | | Hyperl | | | ipidem | | | ia, | | | unspec | | | ified | | | | | | Essent | | | ial | | | (prima | | | ry) | | | hypert | | | ension | | | Mar | | | 16, | | | 2018 | | | [facility] | [place] | | [facility] | | | [place] 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 | | | | | | second | | | yessica to | | | blood | | | loss | | | (chron | | | ic) | | | Acute | | | | | | cholec | | | ystiti | | | s | | | Cardia | | | c | | | murmur | | | , | | | unspec | | | ified | | | | | | 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 | | | [place] | | | [facility] | | | [place] 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 | [place] | | | [facility] | | | [place] 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 due | | | to | | | excess | | | | | | calori | | | es | | | Care | | | Provid | | | ersPro | | | vider | | | PRC | | | Type | | | Phone | | | Fax | | | Servic | | | e | | | Dates | | | [facility] | | | , | | | TRUNG | | | N H, | | | PAC | | | Physic | | | janae | | | Assist | | | ant: | | | Surgic | | | al | | | Ben | | | 31, | | | 2018 - | | | | | | Curren | | | t | | | TRUNG | | | N | | | BAUR[place] | | | [place], [place] | | | Primar | | | y Care | | | [phone]) | | | | | | [phone] | | | 30 | | | [phone] | | | [phone] | | | 72 Mar | | | 1, | | | 2017 - | | | | | | Curren | | | t | | | [facility] | | | tive | | | Portal | | | This | | | patien | | | t has | | | regist | | | ered | | | at the | | | | | | [facility] | | | ence | | | [facility] | [facility] | [facility] | | | l | | | Center | | | | | | Emerge | | | ncy | | | Depart | | | ment | | | For | | | more | | | inform | | | ation | | | visit: | | | | | | https: | | | //secu | | | [email or web address] | | | ecarep | | | [email or web address] | | | m/enrico | | | ent/f7 | | | [id number] | | | -[id number] | | | [id number] | | | 4be-[id number] | | | [id number] | | | [id number] | | | The | | | above | | | inform | | | ation | | | is | | | provid | | | ed for | | | the | | | sole | | | purpos | | | e of | | | patien | | | t | | | treatm | | | ent. | | | Use of | | | this | | | inform | | | ation | | | beyond | | | the | | | terms | | | of | | | Data | | | Sharin | | | g | | | Memora | | | ndum | | | of | | | Unders | | | tandin | | | g and | | | Licens | | | e | | | Agreem | | | ent is | | | | | | prohib | | | ited. | | | In | | | certai | | | n | | | cases | | | not | | | all | | | visits | | | may | | | be | | | repres | | | ented. | | | | | | Consul | | | t the | | | aforem | | | ention | | | ed | | | facili | | | ties | | | for | | | additi | | | onal | | | inform | | | ation. | | | ? | | | 2019 | | | [facility] | | | tive | | | Medica | | | l | | | [employer] | | | logies | | | , [employer] | | | - | | | [place] | | | [place] | | | [place], | | | [place] - | | | [email or web address] | | | ollect | | | ivemed | | | icalte | | | [email or web address] | | | | +---+--------+ documented in this encounter Results Extra Lavender Top Tube (05/06/2018 5:10 AM PST) + +-------+ + + + | Component | Value | Ref Range | Performed | Pathologist | | | | | At | Signature | + +-------+ + + + | Extra | Done | | [facility] | | | Lavender | | | [facility] | | | Top Tube | | | [facility] | | | | | | CENTER - | | | | | | LABORATORY | | + +-------+ + + + + + | Specimen | + + | Blood | + + + + + + + | Performing | Address | City/State/Zipcode | Phone Number | | Organization | | | | + + + + + | [facility] | [address] | [place] | [phone] | | [facility] | | [address] | | | - LABORATORY | | | | + + + + + Basic Metabolic Panel (05/06/2018 5:10 AM PST) + + + + + + | Component | Value | Ref Range | Performed | Pathologist | | | | | At | Signature | + + + + + + | Na | 135 (L) | 136 - 149 | [facility] | | | | | mmol/L | [facility] | | | [facility] | [facility] | | | | | | CENTER - | | | | | | LABORATORY | | + + + + + + | K | 3.2 (L) | 3.5 - 5.1 | [facility] | | | | | mmol/L | [facility] | | | | | | [facility] | | | | | | CENTER - | | | | | | LABORATORY | | + + + + + + | Cl | 101 | 98 - 109 mmol/L | [facility] | | | | | | [facility] | | | | [facility] | [facility] | | | | | | CENTER - | | | | | | LABORATORY | | + + + + + + | CO2 | 26 | 24 - 31 mmol/L | [facility] | | | | | | [facility] | | | | | | [facility] | | | | | | CENTER - | | | | | | LABORATORY | | + + + + + + | Anion Gap | 8 | 3 - 16 mmol/L | [facility] | | | | | | [facility] | | | | | | [facility] | | | | | | CENTER - | | | | | | LABORATORY | | + + + + + + | Glucose | 97 | 70 - 109 mg/dL | [facility] | | | | | | [facility] | | | | | | [facility] | | | | | | CENTER - | | | | | | LABORATORY | | + + + + + + | BUN | 12 | 7 - 18 mg/dL | [place] | | | | | | [facility] | | | | | | MEDICAL | | | | | | CENTER - | | | | | | LABORATORY | | + + + + + + | Creatinine | 1.07 | 0.60 - 1.30 | [place] | | | | | mg/dL | [facility] | | | | | | MEDICAL | | | | | | CENTER - | | | | | | LABORATORY | | + + + + + + | eGFR, | 56 (L)Comment: | >=60 | [place] | | | non- | GLOMERULAR FILTRATION | mL/min/1.73m2 | [facility] | | | [place] | RATE,ESTIMATED | | MEDICAL | | | | mL/min/1.89e3Oebq than | | CENTER - | | | | 60 Chronic kidney | | LABORATORY | | | | disease,if found over a | | | | | | 3-month period.Less than | | | | | | 15 Kidney failureFor | | | | | | | | | | | | Americans,multiply the | | | | | | calculated GFR by 1.21. | | | | | | | | | | + + + + + + | Calcium | 8.0 (L) | 8.3 - 10.5 | [facility] | | | | | mg/dL | [facility] | | | | | | MEDICAL | | | | | | CENTER - | | | | | | LABORATORY | | + + + + + + | BUN/Creatin | 11.2 | | [facility] | | | ine Ratio | | | [facility] | | | | | | [facility]ICAL | | | | | | CENTER - | | | | | | LABORATORY | | + + + + + + + + | Specimen | + + | Blood | + + + + + + + | Performing | Address | City/State/Zipcode | Phone Number | | Organization | | | | + + + + + | [facility] | [address] | [place] | [phone] | | [facility] | | [address] | | | - LABORATORY | | | | + + + + + Extra Lavender Top Tube (05/05/2018 5:37 AM PST) + +-------+ + + + | Component | Value | Ref Range | Performed | Pathologist | | | | | At | Signature | + +-------+ + + + | Extra | Done | | [facility] | | | Lavender | | | [facility] | | | Top Tube | | | MEDICAL | | | | | | CENTER - | | | | | | LABORATORY | | + +-------+ + + + + + | Specimen | + + | Blood | + + + + + + + | Performing | Address | City/State/Zipcode | Phone Number | | Organization | | | | + + + + + | [facility] | [address] | [place] | [phone] | | [facility] | | [address] | | | - LABORATORY | | | | + + + + + Magnesium (05/05/2018 5:37 AM PST) + +-------+ + + + | Component | Value | Ref Range | Performed | Pathologist | | | | | At | Signature | + +-------+ + + + | Magnesium | 1.9 | 1.8 - 2.5 mg/dL | [facility] | | [facility] | [facility] | | | | | | [facility] - | | | | | | LABORATORY | | + +-------+ + + + + + | Specimen | + + | Blood | + + + + + + + | Performing | Address | City/State/Zipcode | Phone Number | | Organization | | | | + + + + + | [facility] | [address] | [place] | [phone] | | [facility] | | [address] | | | - LABORATORY | | | | + + + + + Basic Metabolic Panel (05/05/2018 5:37 AM PST) + + + + + + | Component | Value | Ref Range | Performed | Pathologist | | | | | At | Signature | + + + + + + | Na | 135 (L) | 136 - 149 | [facility] | | | | | mmol/L | [facility] | | | | | | MEDICAL | | | | | | CENTER - | | | | | | LABORATORY | | + + + + + + | K | 3.4 (L) | 3.5 - 5.1 | [facility] | | | | | mmol/L | [facility] | | | | | | MEDICAL | | | | | | CENTER - | | | | | | LABORATORY | | + + + + + + | Cl | 101 | 98 - 109 mmol/L | [facility] | | | | | | [facility] | | | | | | MEDICAL | | | | | | CENTER - | | | | | | LABORATORY | | + + + + + + | CO2 | 27 | 24 - 31 mmol/L | [facility] | | | | | | [facility] | | | | | | MEDICAL | | | | | | CENTER - | | | | | | LABORATORY | | + + + + + + | Anion Gap | 7 | 3 - 16 mmol/L | [facility] | | | | | | [facility] | | | | | | MEDICAL | | | | | | CENTER - | | | | | | LABORATORY | | + + + + + + | Glucose | 104 | 70 - 109 mg/dL | [facility] | | | | | | [facility] | | | | | | MEDICAL | | | | | | CENTER - | | | | | | LABORATORY | | + + + + + + | BUN | 11 | 7 - 18 mg/dL | [place] | | | | | | [facility] | | | | | | MEDICAL | | | | | | CENTER - | | | | | | LABORATORY | | + + + + + + | Creatinine | 1.10 | 0.60 - 1.30 | [facility] | | | | | mg/dL | [facility] | | | | | | MEDICAL | | | | | | CENTER - | | | | | | LABORATORY | | + + + + + + | eGFR, | 54 (L)Comment: | >=60 | [facility] | | | non- | GLOMERULAR FILTRATION | mL/min/1.73m2 | [facility] | | | [place] | RATE,ESTIMATED | | MEDICAL | | | | mL/min/1.38f9Fwog than | | CENTER - | | | | 60 Chronic kidney | | LABORATORY | | | | disease,if found over a | | | | | | 3-month period.Less than | | | | | | 15 Kidney failureFor | | | | | | | | | | | | Americans,multiply the | | | | | | calculated GFR by 1.21. | | | | | | | | | | + + + + + + | Calcium | 8.0 (L) | 8.3 - 10.5 | [facility] | | | | | mg/dL | [facility] | | | | | | MEDICAL | | | | | | CENTER - | | | | | | LABORATORY | | + + + + + + | BUN/Creatin | 10.0 | | [facility] | | | ine Ratio | | | [facility] | | | | | | MEDICAL | | | | | | CENTER - | | | | | | LABORATORY | | + + + + + + + + | Specimen | + + | Blood | + + + + + + + | Performing | Address | City/State/Zipcode | Phone Number | | Organization | | | | + + + + + | [facility] | [address] | [place] | [phone] | | [facility] | | [address] | | | - LABORATORY | | | | + + + + + Extra Lavender Top Tube (05/04/2018 5:01 AM PST) + +-------+ + + + | Component | Value | Ref Range | Performed | Pathologist | | | | | At | Signature | + +-------+ + + + | Extra | Done | | [facility] | | | Lavender | | | [facility] | | | Top Tube | | | MEDICAL | | | | | | CENTER - | | | | | | LABORATORY | | + +-------+ + + + + + | Specimen | + + | Blood | + + + + + + + | Performing | Address | City/State/Zipcode | Phone Number | | Organization | | | | + + + + + | [facility] | [address] | [place] | [phone] | | [facility] | | [address] | | | - LABORATORY | | | | + + + + + Magnesium (05/04/2018 5:01 AM PST) + +-------+ + + + | Component | Value | Ref Range | Performed | Pathologist | | | | | At | Signature | + +-------+ + + + | Magnesium | 1.9 | 1.8 - 2.5 mg/dL | [facility] | | | | | | [facility] | | | | | | CENTER - | | | | | | LABORATORY | | + +-------+ + + + + + | Specimen | + + | Blood | + + + + + + + | Performing | Address | City/State/Zipcode | Phone Number | | Organization | | | | + + + + + | [facility] | [address] | [place] | [phone] | | [facility] | | [address] | | | - LABORATORY | | | | + + + + + Basic Metabolic Panel (05/04/2018 5:01 AM PST) + + + + + + | Component | Value | Ref Range | Performed | Pathologist | | | | | At | Signature | + + + + + + | Na | 136 | 136 - 149 | [facility] | | | | | mmol/L | [facility] | | | | | | MEDICAL | | | | | | CENTER - | | | | | | LABORATORY | | + + + + + + | K | 3.1 (L) | 3.5 - 5.1 | [facility] | | | | | mmol/L | [facility] | | | | | | MEDICAL | | | | | | CENTER - | | | | | | LABORATORY | | + + + + + + | Cl | 101 | 98 - 109 mmol/L | [facility] | | | | | | [facility] | | | | | | MEDICAL | | | | | | CENTER - | | | | | | LABORATORY | | + + + + + + | CO2 | 26 | 24 - 31 mmol/L | [facility] | | | | | | [facility] | | | | | | MEDICAL | | | | | | CENTER - | | | | | | LABORATORY | | + + + + + + | Anion Gap | 9 | 3 - 16 mmol/L | [facility] | | | | | | [facility] | | | | | | MEDICAL | | | | | | CENTER - | | | | | | LABORATORY | | + + + + + + | Glucose | 90 | 70 - 109 mg/dL | [facility] | | | | | | [facility] | | | | | | MEDICAL | | | | | | CENTER - | | | | | | LABORATORY | | + + + + + + | BUN | 9 | 7 - 18 mg/dL | [facility] | | | | | | [facility] | | | | | | MEDICAL | | | | | | CENTER - | | | | | | LABORATORY | | + + + + + + | Creatinine | 1.03 | 0.60 - 1.30 | [facility] | | | | | mg/dL | [facility] | | | | | | MEDICAL | | | | | | CENTER - | | | | | | LABORATORY | | + + + + + + | eGFR, | 59 (L)Comment: | >=60 | [facility] | | | non- | GLOMERULAR FILTRATION | mL/min/1.73m2 | [facility] | | | [place] | RATE,ESTIMATED | | MEDICAL | | | | mL/min/1.52a2Gesd than | | CENTER - | | | | 60 Chronic kidney | | LABORATORY | | | | disease,if found over a | | | | | | 3-month period.Less than | | | | | | 15 Kidney failureFor | | | | | | | | | | | | Americans,multiply the | | | | | | calculated GFR by 1.21. | | | | | | | | | | + + + + + + | Calcium | 7.7 (L) | 8.3 - 10.5 | [facility] | | | | | mg/dL | [facility] | | | | | | MEDICAL | | | | | | CENTER - | | | | | | LABORATORY | | + + + + + + | BUN/Creatin | 8.7 | | [facility] | | | ine Ratio | | | [facility] | | | | | | MEDICAL | | | | | | CENTER - | | | | | | LABORATORY | | + + + + + + + + | Specimen | + + | Blood | + + + + + + + | Performing | Address | City/State/Zipcode | Phone Number | | Organization | | | | + + + + + | [facility] | [address] | [place] | [phone] | | [facility] | | [address] | | | - LABORATORY | | | | + + + + + Magnesium (05/03/2018 5:06 AM PST) + +---------+ + + + | Component | Value | Ref Range | Performed | Pathologist | | | | | At | Signature | + +---------+ + + + | Magnesium | 1.6 (L) | 1.8 - 2.5 mg/dL | [facility] | | | | | | [facility] | | | | | | MEDICAL | | | | | | CENTER - | | | | | | LABORATORY | | + +---------+ + + + + + | Specimen | + + | Blood | + + + + + + + | Performing | Address | City/State/Zipcode | Phone Number | | Organization | | | | + + + + + | [facility] | [address] | [place] | [phone] | | [facility] | | [address] | | | - LABORATORY | | | | + + + + + Comprehensive Metabolic Panel (05/03/2018 5:06 AM PST) + + + + + + | Component | Value | Ref Range | Performed | Pathologist | | | | | At | Signature | + + + + + + | Na | 137 | 136 - 149 | [facility] | | | | | mmol/L | [facility] | | | | | | MEDICAL | | | | | | CENTER - | | | | | | LABORATORY | | + + + + + + | K | 3.4 (L) | 3.5 - 5.1 | [facility] | | | | | mmol/L | [facility] | | | | | | MEDICAL | | | | | | CENTER - | | | | | | LABORATORY | | + + + + + + | Cl | 102 | 98 - 109 mmol/L | [facility] | | | | | | [facility] | | | | | | MEDICAL | | | | | | CENTER - | | | | | | LABORATORY | | + + + + + + | CO2 | 26 | 24 - 31 mmol/L | [facility] | | | | | | [facility] | | | | | | MEDICAL | | | | | | CENTER - | | | | | | LABORATORY | | + + + + + + | Anion Gap | 9 | 3 - 16 mmol/L | [facility] | | | | | | [facility] | | | | | | MEDICAL | | | | | | CENTER - | | | | | | LABORATORY | | + + + + + + | Glucose | 92 | 70 - 109 mg/dL | [facility] | | | | | | [facility] | | | | | | MEDICAL | | | | | | CENTER - | | | | | | LABORATORY | | + + + + + + | BUN | 10 | 7 - 18 mg/dL | [facility] | | | | | | [facility] | | | | | | MEDICAL | | | | | | CENTER - | | | | | | LABORATORY | | + + + + + + | Creatinine | 1.11 | 0.60 - 1.30 | [facility] | | | | | mg/dL | [facility] | | | | | | MEDICAL | | | | | | CENTER - | | | | | | LABORATORY | | + + + + + + | eGFR, | 54 (L)Comment: | >=60 | [facility] | | | non- | GLOMERULAR FILTRATION | mL/min/1.73m2 | [facility] | | | [place] | RATE,ESTIMATED | | MEDICAL | | | | mL/min/1.70i4Hrty than | | CENTER - | | | | 60 Chronic kidney | | LABORATORY | | | | disease,if found over a | | | | | | 3-month period.Less than | | | | | | 15 Kidney failureFor | | | | | | | | | | | | Americans,multiply the | | | | | | calculated GFR by 1.21. | | | | | | | | | | + + + + + + | Calcium | 7.9 (L) | 8.3 - 10.5 | [facility] | | | | | mg/dL | [facility] | | | | | | MEDICAL | | | | | | CENTER - | | | | | | LABORATORY | | + + + + + + | Albumin | 2.3 (L) | 3.2 - 5.0 g/dL | [facility] | | | | | | [facility] | | | | | | [facility]ICAL | | | | | | CENTER - | | | | | | LABORATORY | | + + + + + + | Bilirubin | 1.5 | 0.1 - 1.5 mg/dL | [facility] | | | Total | | | [facility] | | | | | | MEDICAL | | | | | | CENTER - | | | | | | LABORATORY | | + + + + + + | Total | 5.6 (L) | 6.0 - 7.8 g/dL | [facility] | | | Protein | | | [facility] | | | | | | MEDICAL | | | | | | CENTER - | | | | | | LABORATORY | | + + + + + + | AST | 34 | 10 - 42 U/L | [facility] | | | | | | [facility] | | | | | | [facility]ICAL | | | | | | CENTER - | | | | | | LABORATORY | | + + + + + + | ALT | 14 | 6 - 45 U/L | [facility] | | | | | | [facility] | | | | | | [facility]ICAL | | | | | | CENTER - | | | | | | LABORATORY | | + + + + + + | Alkaline | 140 (H) | 40 - 110 U/L | [facility] | | | Phosphatase | | | [facility] | | | | | | MEDICAL | | | | | | CENTER - | | | | | | LABORATORY | | + + + + + + | Globulin | 3.3 | 2.1 - 3.8 g/dL | [facility] | | | | | | [facility] | | | | | | [facility] | | | | | | CENTER - | | | | | | LABORATORY | | + + + + + + | Albumin/Ramandeep | 0.7 (L) | 0.8 - 2.0 | [facility] | | | bulin Ratio | | | [facility] | | | | | | [facility] | | | | | | CENTER - | | | | | | LABORATORY | | + + + + + + | BUN/Creatin | 9.0 | | [facility] | | | ine Ratio | | | [facility] | | | | | | MED[facility] | | | | | | [facility]ENTER - | | | | | | LABORATORY | | + + + + + + + + | Specimen | + + | Blood | + + + + + + + | Performing | Address | City/State/Zipcode | Phone Number | | Organization | | | | + + + + + | [facility] | [address] | [place] | [phone] | | [facility] | | [address] | | | - LABORATORY | | | | + + + + + CBC with Differential (05/03/2018 5:06 AM PST) + + + + + + | Component | Value | Ref Range | Performed | Pathologist | | | | | At | Signature | + + + + + + | White Blood | 7.5 | 4.0 - 11.0 K/uL | [facility] | | | Cells | | | [facility] | | | | | | [facility] | | | | | | [facility]ENTER - | | | | | | LABORATORY | | + + + + + + | Red Blood | 3.26 (L) | 3.70 - 5.20 | [facility] | | | Cells | | M/uL | [facility] | | | | | | MEDICAL | | | | | | CENTER - | | | | | | LABORATORY | | + + + + + + | Hemoglobin | 9.0 (L) | 11.5 - 16.0 | [facility] | | | | | g/dL | [facility] | | | | | | [facility] | | | | | | CENTER - | | | | | | LABORATORY | | + + + + + + | Hematocrit | 28.0 (L) | 34.0 - 47.0 % | [facility] | | | | | | [facility] | | | | | | [facility] | | | | | | [facility] - | | | | | | LABORATORY | | + + + + + + | MCV | 85.9 | 83.0 - 101.0 fL | [facility] | | | | | | [facility] | | | | | | [facility] | | | | | | [facility] - | | | | | | LABORATORY | | + + + + + + | MCH | 27.6 (L) | 28.0 - 35.0 pg | [facility] | | | | | | [facility] | | | | | | [facility] | | | | | | [facility] - | | | | | | LABORATORY | | + + + + + + | MCHC | 32.1 | 32.0 - 36.0 | [facility] | | | | | g/dL | [facility] | | | | | | [facility] | | | | | | [facility] - | | | | | | LABORATORY | | + + + + + + | RDW-CV | 19.9 (H) | <15.0 % | [facility] | | | | | | [facility] | | | | | | [facility] | | | | | | [facility] - | | | | | | LABORATORY | | + + + + + + | RDW-SD | 63.2 (H) | 35.1 - 46.3 fL | [facility] | | | | | | [facility] | | | | | | [facility] | | | | | | C[facility] - | | | | | | LABORATORY | | + + + + + + | Platelet | 117 (L) | 140 - 440 K/uL | [facility] | | | Count | | | [facility] | | | | | | [facility] | | | | | | [facility]ENTER - | | | | | | LABORATORY | | + + + + + + | MPV | 10.1 | 6.5 - 12.4 fL | [facility] | | | | | | [facility] | | | | | | [facility] | | | | | | [facility] - | | | | | | LABORATORY | | + + + + + + | % | 50.2 | 45.0 - 82.0 % | [facility] | | | Neutrophils | | | [facility] | | | | | | [facility] | | | | | | CENTER - | | | | | | LABORATORY | | + + + + + + | % | 32.3 | 20.0 - 45.0 % | [facility] | | | Lymphocytes | | | [facility] | | | | | | [facility] | | | | | | CENTER - | | | | | | LABORATORY | | + + + + + + | % Monocytes | 9.7 | 4.0 - 12.0 % | [facility] | | | | | | [facility] | | | | | | [facility] | | | | | | [facility] - | | | | | | LABORATORY | | + + + + + + | % | 6.6 (H) | 0.0 - 5.0 % | [facility] | | | Eosinophils | | | [facility] | | | | | | [facility] | | | | | | CENTER - | | | | | | LABORATORY | | + + + + + + | % Basophils | 0.9 | 0.0 - 1.0 % | [facility] | | | | | | [facility] | | | | | | [facility] | | | | | | CENTER - | | | | | | LABORATORY | | + + + + + + | % Immature | 0.3Comment: For | 0.0 - 0.4 % | [facility] | | | Granulocyte | patients, use the | | [facility] | | | s | special reference ranges | | MEDICAL | | | | listed below. | | CENTER - | | | | | | LABORATORY | | + + + + + + | Absolute | 3.75 | 1.80 - 8.50 | [facility] | | | Neutrophils | | K/uL | [facility] | | | | | | [facility] | | | | | | CENTER - | | | | | | LABORATORY | | + + + + + + | Absolute | 2.41 | 0.60 - 3.20 | [facility] | | | Lymphocytes | | K/uL | [facility] | | | | | | MED[facility] | | | | | | CENTER - | | | | | | LABORATORY | | + + + + + + | Absolute | 0.72 | 0.00 - 1.00 | [facility] | | | Monocytes | | K/uL | [facility] | | | | | | MEDICAL | | | | | | CENTER - | | | | | | LABORATORY | | + + + + + + | Absolute | 0.49 (H) | 0.00 - 0.40 | [facility] | | | Eosinophils | | K/uL | [facility] | | | | | | MEDICAL | | | | | | CENTER - | | | | | | LABORATORY | | + + + + + + | Absolute | 0.07 | 0.00 - 0.10 | [facility] | | | Basophils | | K/uL | [facility] | | | | | | MEDICAL | | | | | | CENTER - | | | | | | LABORATORY | | + + + + + + | Absolute | 0.02Comment: For | 0.00 - 0.03 | [facility] | | | Immature | patients, use | K/uL | [facility] | | | Granulocyte | the special reference | | MEDICAL | | | s | ranges listed below. | | CENTER - | | | | | | LABORATORY | | + + + + + + | % nRBC | 0 | 0 - 2 per 100 | [facility] | | | | | WBC's | [facility] | | | | | | MEDICAL | | | | | | CENTER - | | | | | | LABORATORY | | + + + + + + | Absolute | 0.00 | 0.00 - 0.01 | [facility] | | | nRBC | | K/uL | [facility] | | | | | | MEDICAL | | | | | | CENTER - | | | | | | LABORATORY | | + + + + + + + + | Specimen | + + | Blood | + + + + + | Narrative | Performed At | + + + | IMMATURE GRANULOCYTES - For patients, use the following | [facility] | | reference ranges: Trim. Absolute (K/uL) Percentage (%) | [facility] | | 1st 0.003-0.091 K/uL 0.0-0.9% 2nd 0.007-0.247 K/uL [facility] | | 0.1-2.0% 3rd 0.018-0.456 K/uL 0.1-2.0% | - LABORATORY | + + + + + + + + | Performing | Address | City/State/Zipcode | Phone Number | | Organization | | | | + + + + + | [facility] | [address] | [place] | [phone] | | [facility] | | [address] | | | - LABORATORY | | | | + + + + + Extra Lavender Top Tube (05/02/2018 6:30 AM PST) + +-------+ + + + | Component | Value | Ref Range | Performed | Pathologist | | | | | At | Signature | + +-------+ + + + | Extra | Done | | [facility] | | | Lavender | | | [facility] | | | Top Tube | | | MEDICAL | | | | | | CENTER - | | | | | | LABORATORY | | + +-------+ + + + + + | Specimen | + + | Blood | + + + + + + + | Performing | Address | City/State/Zipcode | Phone Number | | Organization | | | | + + + + + | [facility] | [address] | [place] | [phone] | | [facility] | | [address] | | | - LABORATORY | | | | + + + + + Magnesium (05/02/2018 5:48 AM PST) + +---------+ + + + | Component | Value | Ref Range | Performed | Pathologist | | | | | At | Signature | + +---------+ + + + | Magnesium | 1.7 (L) | 1.8 - 2.5 mg/dL | [facility] | | [facility] | [facility] | | | | | | C[facility] - | | | | | | LABORATORY | | + +---------+ + + + + + | Specimen | + + | Blood | + + + + + + + | Performing | Address | City/State/Zipcode | Phone Number | | Organization | | | | + + + + + | [facility] | [address] | [place] | [phone] | | [facility] | | [address] | | | - LABORATORY | | | | + + + + + Basic Metabolic Panel (05/02/2018 5:48 AM PST) + + + + + + | Component | Value | Ref Range | Performed | Pathologist | | | | | At | Signature | + + + + + + | Na | 139 | 136 - 149 | [facility] | | | | | mmol/L | [facility] | | | | | | MEDICAL | | | | | | CENTER - | | | | | | LABORATORY | | + + + + + + | K | 3.4 (L) | 3.5 - 5.1 | [facility] | | | | | mmol/L | [facility] | | | | | | MEDICAL | | | | | | CENTER - | | | | | | LABORATORY | | + + + + + + | Cl | 105 | 98 - 109 mmol/L | [facility] | | | | | | [facility] | | | | | | MEDICAL | | | | | | CENTER - | | | | | | LABORATORY | | + + + + + + | CO2 | 27 | 24 - 31 mmol/L | [facility] | | | | | | [facility] | | | | | | MEDICAL | | | | | | CENTER - | | | | | | LABORATORY | | + + + + + + | Anion Gap | 7 | 3 - 16 mmol/L | [facility] | | | | | | [facility] | | | | | | MEDICAL | | | | | | CENTER - | | | | | | LABORATORY | | + + + + + + | Glucose | 103 | 70 - 109 mg/dL | [facility] | | | | | | [facility] | | | | | | MEDICAL | | | | | | CENTER - | | | | | | LABORATORY | | + + + + + + | BUN | 11 | 7 - 18 mg/dL | [facility] | | | | | | [facility] | | | | | | MEDICAL | | | | | | CENTER - | | | | | | LABORATORY | | + + + + + + | Creatinine | 1.10 | 0.60 - 1.30 | [facility] | | | | | mg/dL | [facility] | | | | | | MEDICAL | | | | | | CENTER - | | | | | | LABORATORY | | + + + + + + | eGFR, | 54 (L)Comment: | >=60 | [facility] | | | non- | GLOMERULAR FILTRATION | mL/min/1.73m2 | [facility] | | | [place] | RATE,ESTIMATED | | MEDICAL | | | | mL/min/1.36k4Fuck than | | CENTER - | | | | 60 Chronic kidney | | LABORATORY | | | | disease,if found over a | | | | | | 3-month period.Less than | | | | | | 15 Kidney failureFor | | | | | | | | | | | | Americans,multiply the | | | | | | calculated GFR by 1.21. | | | | | | | | | | + + + + + + | Calcium | 8.0 (L) | 8.3 - 10.5 | [facility] | | | | | mg/dL | [facility] | | | | | | MEDICAL | | | | | | CENTER - | | | | | | LABORATORY | | + + + + + + | BUN/Creatin | 10.0 | | [facility] | | | ine Ratio | | | [facility] | | | | | | MEDICAL | | | | | | CENTER - | | | | | | LABORATORY | | + + + + + + + + | Specimen | + + | Blood | + + + + + + + | Performing | Address | City/State/Zipcode | Phone Number | | Organization | | | | + + + + + | [facility] | [address] | [place] | [phone] | | [facility] | | [address] | | | - LABORATORY | | | | + + + + + ECG 12 lead (05/01/2018 5:49 PM PST) + + + + + + | Component | Value | Ref Range | Performed | Pathologist | | | | | At | Signature | + + + + + + | VENTRICULAR | 83 | BPM | [facility] | | | RATE EKG | | | | | + + + + + + | ATRIAL RATE | 83 | BPM | [facility] | | + + + + + + | P-R | 176 | ms | [facility] | | | INTERVAL | | | | | + + + + + + | QRS | 94 | ms | [facility] | | | DURATION | | | | | + + + + + + | Q-T | 488 | ms | [facility] | | | INTERVAL | | | | | + + + + + + | Q-T | 573 | ms | [facility] | | | INTERVAL | | | | | | (CORRECTED) | | | | | + + + + + + | P WAVE AXIS | 37 | degrees | [facility] | | + + + + + + | QRS AXIS | 90 | degrees | [facility] | | + + + + + + | T AXIS | 74 | degrees | [facility] | | + + + + + + | INTERPRETAT | Normal sinus rhythmLong | | [facility] | | | ION TEXT | QTcRightward | | | | | | axisAnterior infarct | | | | | | (cited on or before | | | | | | 23-APR-2018)Nonspecific | | | | | | T wave abnormality | | | | | | Anterolateral leadsLong | | | | | | QTcAbnormal ECGWhen | | | | | | compared with ECG of | | | | | | 24-APR-2018 07:57,QRS | | | | | | axis has shifted | | | | | | rightwardNonspecific T | | | | | | wave abnormality, worse | | | | | | in leads I and | | | | | | aVLCriteria for Anterior | | | | | | infarct , age | | | | | | undetermined has | | | | | | replaced Criteria for | | | | | | Anterolateral infarct , | | | | | | age | | | | | | undeterminedConfirmed by | | | | | | EREN NICOLE MD ([id number]) | | | | | | on 05/02/2018 8:38:52 AM | | | | | | | | | | + + + + + + + + | Specimen | + + | | + + + + + | Narrative | Performed At | + + + | | | + + + + +---------+ + + | Performing | Address | City/State/Zipcode | Phone Number | | Organization | | | | + +---------+ + + | [facility] | | | | + +---------+ + + Basic Metabolic Panel (05/01/2018 6:15 AM PST) + + + + + + | Component | Value | Ref Range | Performed | Pathologist | | | | | At | Signature | + + + + + + | Na | 137 | 136 - 149 | [facility] | | | | | mmol/L | [facility] | | | | | | MEDICAL | | | | | | CENTER - | | | | | | LABORATORY | | + + + + + + | K | 3.6 | 3.5 - 5.1 | [facility] | | | | | mmol/L | [facility] | | | | | | MEDICAL | | | | | | CENTER - | | | | | | LABORATORY | | + + + + + + | Cl | 108 | 98 - 109 mmol/L | [facility] | | | | | | [facility] | | | | | | MEDICAL | | | | | | CENTER - | | | | | | LABORATORY | | + + + + + + | CO2 | 26 | 24 - 31 mmol/L | [facility] | | | | | | [facility] | | | | | | MEDICAL | | | | | | CENTER - | | | | | | LABORATORY | | + + + + + + | Anion Gap | 3 | 3 - 16 mmol/L | [facility] | | | | | | [facility] | | | | | | MEDICAL | | | | | | CENTER - | | | | | | LABORATORY | | + + + + + + | Glucose | 82 | 70 - 109 mg/dL | [facility] | | | | | | [facility] | | | | | | MEDICAL | | | | | | CENTER - | | | | | | LABORATORY | | + + + + + + | BUN | 11 | 7 - 18 mg/dL | [facility] | | | | | | [facility] | | | | | | MEDICAL | | | | | | CENTER - | | | | | | LABORATORY | | + + + + + + | Creatinine | 1.15 | 0.60 - 1.30 | [facility] | | | | | mg/dL | [facility] | | | | | | MEDICAL | | | | | | CENTER - | | | | | | LABORATORY | | + + + + + + | eGFR, | 52 (L)Comment: | >=60 | [facility] | | | non- | GLOMERULAR FILTRATION | mL/min/1.73m2 | [facility] | | | [place] | RATE,ESTIMATED | | MEDICAL | | | | mL/min/1.40r3Twut than | | CENTER - | | | | 60 Chronic kidney | | LABORATORY | | | | disease,if found over a | | | | | | 3-month period.Less than | | | | | | 15 Kidney failureFor | | | | | | | | | | | | Americans,multiply the | | | | | | calculated GFR by 1.21. | | | | | | | | | | + + + + + + | Calcium | 8.0 (L) | 8.3 - 10.5 | [facility] | | | | | mg/dL | [facility] | | | | | | MEDICAL | | | | | | CENTER - | | | | | | LABORATORY | | + + + + + + | BUN/Creatin | 9.6 | | [facility] | | | ine Ratio | | | [facility] | | | | | | MEDICAL | | | | | | CENTER - | | | | | | LABORATORY | | + + + + + + + + | Specimen | + + | Blood | + + + + + + + | Performing | Address | City/State/Zipcode | Phone Number | | Organization | | | | + + + + + | [facility] | [address] | [place] | [phone] | | [facility] | | [address] | | | - LABORATORY | | | | + + + + + CBC with Differential (05/01/2018 5:45 AM PST) + + + + + + | Component | Value | Ref Range | Performed | Pathologist | | | | | At | Signature | + + + + + + | White Blood | 7.9 | 4.0 - 11.0 K/uL | [facility] | | | Cells | | | [facility] | | | | | | MEDICAL | | | | | | CENTER - | | | | | | LABORATORY | | + + + + + + | Red Blood | 3.19 (L) | 3.70 - 5.20 | [facility] | | | Cells | | M/uL | [facility] | | | | | | MEDICAL | | | | | | CENTER - | | | | | | LABORATORY | | + + + + + + | Hemoglobin | 8.7 (L) | 11.5 - 16.0 | [facility] | | | | | g/dL | [facility] | | | | | | MEDICAL | | | | | | CENTER - | | | | | | LABORATORY | | + + + + + + | Hematocrit | 27.1 (L) | 34.0 - 47.0 % | [facility] | | | | | | [facility] | | | | | | MEDICAL | | | | | | CENTER - | | | | | | LABORATORY | | + + + + + + | MCV | 85.0 | 83.0 - 101.0 fL | [facility] | | | | | | [facility] | | | | | | MEDICAL | | | | | | CENTER - | | | | | | LABORATORY | | + + + + + + | MCH | 27.3 (L) | 28.0 - 35.0 pg | [facility] | | | | | | [facility] | | | | | | MEDICAL | | | | | | CENTER - | | | | | | LABORATORY | | + + + + + + | MCHC | 32.1 | 32.0 - 36.0 | [facility] | | | | | g/dL | [facility] | | | | | | MEDICAL | | | | | | CENTER - | | | | | | LABORATORY | | + + + + + + | RDW-CV | 20.1 (H) | <15.0 % | [facility] | | | | | | [facility] | | | | | | MEDICAL | | | | | | CENTER - | | | | | | LABORATORY | | + + + + + + | RDW-SD | 63.5 (H) | 35.1 - 46.3 fL | [facility] | | | | | | [facility] | | | | | | MEDICAL | | | | | | CENTER - | | | | | | LABORATORY | | + + + + + + | Platelet | 113 (L) | 140 - 440 K/uL | [facility] | | | Count | | | [facility] | | | | | | MEDICAL | | | | | | CENTER - | | | | | | LABORATORY | | + + + + + + | MPV | 9.6 | 6.5 - 12.4 fL | [facility] | | | | | | [facility] | | | | | | MEDICAL | | | | | | CENTER - | | | | | | LABORATORY | | + + + + + + | % | 47.4 | 45.0 - 82.0 % | [facility] | | | Neutrophils | | | [facility] | | | | | | MEDICAL | | | | | | CENTER - | | | | | | LABORATORY | | + + + + + + | % | 34.1 | 20.0 - 45.0 % | [facility] | | | Lymphocytes | | | [facility] | | | | | | MEDICAL | | | | | | CENTER - | | | | | | LABORATORY | | + + + + + + | % Monocytes | 9.1 | 4.0 - 12.0 % | [facility] | | | | | | [facility] | | | | | | MEDICAL | | | | | | CENTER - | | | | | | LABORATORY | | + + + + + + | % | 7.9 (H) | 0.0 - 5.0 % | [facility] | | | Eosinophils | | | [facility] | | | | | | MEDICAL | | | | | | CENTER - | | | | | | LABORATORY | | + + + + + + | % Basophils | 1.1 (H) | 0.0 - 1.0 % | [facility] | | | | | | [facility] | | | | | | MEDICAL | | | | | | CENTER - | | | | | | LABORATORY | | + + + + + + | % Immature | 0.4Comment: For | 0.0 - 0.4 % | [facility] | | | Granulocyte | patients, use the | | [facility] | | | s | special reference ranges | | MEDICAL | | | | listed below. | | CENTER - | | | | | | LABORATORY | | + + + + + + | Absolute | 3.74 | 1.80 - 8.50 | [facility] | | | Neutrophils | | K/uL | [facility] | | | | | | MEDICAL | | | | | | CENTER - | | | | | | LABORATORY | | + + + + + + | Absolute | 2.69 | 0.60 - 3.20 | [facility] | | | Lymphocytes | | K/uL | [facility] | | | | | | MEDICAL | | | | | | CENTER - | | | | | | LABORATORY | | + + + + + + | Absolute | 0.72 | 0.00 - 1.00 | [facility] | | | Monocytes | | K/uL | [facility] | | | | | | MEDICAL | | | | | | CENTER - | | | | | | LABORATORY | | + + + + + + | Absolute | 0.62 (H) | 0.00 - 0.40 | [facility] | | | Eosinophils | | K/uL | [facility] | | | | | | MEDICAL | | | | | | CENTER - | | | | | | LABORATORY | | + + + + + + | Absolute | 0.09 | 0.00 - 0.10 | [facility] | | | Basophils | | K/uL | [facility] | | | | | | MEDICAL | | | | | | CENTER - | | | | | | LABORATORY | | + + + + + + | Absolute | 0.03Comment: For | 0.00 - 0.03 | [facility] | | | Immature | patients, use | K/uL | [facility] | | | Granulocyte | the special reference | | MEDICAL | | | s | ranges listed below. | | CENTER - | | | | | | LABORATORY | | + + + + + + | % nRBC | 0 | 0 - 2 per 100 | [facility] | | | | | WBC's | [facility] | | | | | | MEDICAL | | | | | | CENTER - | | | | | | LABORATORY | | + + + + + + | Absolute | 0.00 | 0.00 - 0.01 | [facility] | | | nRBC | | K/uL | [facility] | | | | | | MEDICAL | | | | | | CENTER - | | | | | | LABORATORY | | + + + + + + + + | Specimen | + + | Blood | + + + + + | Narrative | Performed At | + + + | IMMATURE GRANULOCYTES - For patients, use the following | [facility] | | reference ranges: Trim. Absolute (K/uL) Percentage (%) | [facility] | | 1st 0.003-0.091 K/uL 0.0-0.9% 2nd 0.007-0.247 K/uL | [facility] | | 0.1-2.0% 3rd 0.018-0.456 K/uL 0.1-2.0% | - LABORATORY | + + + + + + + + | Performing | Address | City/State/Zipcode | Phone Number | | Organization | | | | + + + + + | [facility] | [address] | [place] | [phone] | | [facility] | | [address] | | | - LABORATORY | | | | + + + + + Folate (05/01/2018 5:45 AM PST) + +-------+ + + + | Component | Value | Ref Range | Performed | Pathologist | | | | | At | Signature | + +-------+ + + + | FOLATE | 7.5 | >5.8 ng/mL | [facility] | | | | | | [facility] | | | | | | MEDICAL | | | | | | CENTER - | | | | | | LABORATORY | | + +-------+ + + + + + | Specimen | + + | Blood | + + + + + + + | Performing | Address | City/State/Zipcode | Phone Number | | Organization | | | | + + + + + | [facility] | [address] | [place] | [phone] | | [facility] | | [address] | | | - LABORATORY | | | | + + + + + Vitamin B-12 (05/01/2018 5:45 AM PST) + + + + + + | Component | Value | Ref Range | Performed | Pathologist | | | | | At | Signature | + + + + + + | VITAMIN | Comment: DEFICIENT: | 180 - 914 pg/mL | [facility] | | | B-12 | <145 | | [facility] | | | | pg/mLINDETERMINATE: | | MEDICAL | | | | 145-180 pg/mL | | CENTER - | | | | | | LABORATORY | | + + + + + + + + | Specimen | + + | Blood | + + + + + + + | Performing | Address | City/State/Zipcode | Phone Number | | Organization | | | | + + + + + | [facility] | [address] | [place] | [phone] | | [facility] | | [address] | | | - LABORATORY | | | | + + + + + CBC with Differential (04/30/2018 6:12 AM PST) + + + + + + | Component | Value | Ref Range | Performed | Pathologist | | | | | At | Signature | + + + + + + | White Blood | 7.8 | 4.0 - 11.0 K/uL | [facility] | | | Cells | | | [facility] | | | | | | MEDICAL | | | | | | CENTER - | | | | | | LABORATORY | | + + + + + + | Red Blood | 3.20 (L) | 3.70 - 5.20 | [facility] | | | Cells | | M/uL | [facility] | | | | | | MEDICAL | | | | | | CENTER - | | | | | | LABORATORY | | + + + + + + | Hemoglobin | 8.7 (L) | 11.5 - 16.0 | [facility] | | | | | g/dL | [facility] | | | | | | MEDICAL | | | | | | CENTER - | | | | | | LABORATORY | | + + + + + + | Hematocrit | 27.3 (L) | 34.0 - 47.0 % | [facility] | | | | | | [facility] | | | | | | MEDICAL | | | | | | CENTER - | | | | | | LABORATORY | | + + + + + + | MCV | 85.3 | 83.0 - 101.0 fL | [facility] | | | | | | [facility] | | | | | | MEDICAL | | | | | | CENTER - | | | | | | LABORATORY | | + + + + + + | MCH | 27.2 (L) | 28.0 - 35.0 pg | [facility] | | | | | | [facility] | | | | | | MEDICAL | | | | | | CENTER - | | | | | | LABORATORY | | + + + + + + | MCHC | 31.9 (L) | 32.0 - 36.0 | [facility] | | | | | g/dL | [facility] | | | | | | MEDICAL | | | | | | CENTER - | | | | | | LABORATORY | | + + + + + + | RDW-CV | 20.5 (H) | <15.0 % | [facility] | | | | | | [facility] | | | | | | MEDICAL | | | | | | CENTER - | | | | | | LABORATORY | | + + + + + + | RDW-SD | 64.4 (H) | 35.1 - 46.3 fL | [facility] | | | | | | [facility] | | | | | | MEDICAL | | | | | | CENTER - | | | | | | LABORATORY | | + + + + + + | Platelet | 113 (L) | 140 - 440 K/uL | [facility] | | | Count | | | [facility] | | | | | | MEDICAL | | | | | | CENTER - | | | | | | LABORATORY | | + + + + + + | MPV | 10.2 | 6.5 - 12.4 fL | [facility] | | | | | | [facility] | | | | | | MEDICAL | | | | | | CENTER - | | | | | | LABORATORY | | + + + + + + | % | 46.8 | 45.0 - 82.0 % | [facility] | | | Neutrophils | | | [facility] | | | | | | MEDICAL | | | | | | CENTER - | | | | | | LABORATORY | | + + + + + + | % | 34.3 | 20.0 - 45.0 % | [facility] | | | Lymphocytes | | | [facility] | | | | | | MEDICAL | | | | | | CENTER - | | | | | | LABORATORY | | + + + + + + | % Monocytes | 9.4 | 4.0 - 12.0 % | [facility] | | | | | | [facility] | | | | | | MEDICAL | | | | | | CENTER - | | | | | | LABORATORY | | + + + + + + | % | 7.7 (H) | 0.0 - 5.0 % | [facility] | | | Eosinophils | | | [facility] | | | | | | MEDICAL | | | | | | CENTER - | | | | | | LABORATORY | | + + + + + + | % Basophils | 1.4 (H) | 0.0 - 1.0 % | [facility] | | | | | | [facility] | | | | | | MEDICAL | | | | | | CENTER - | | | | | | LABORATORY | | + + + + + + | % Immature | 0.4Comment: For | 0.0 - 0.4 % | [facility] | | | Granulocyte | patients, use the | | [facility] | | | s | special reference ranges | | MEDICAL | | | | listed below. | | CENTER - | | | | | | LABORATORY | | + + + + + + | Absolute | 3.65 | 1.80 - 8.50 | [facility] | | | Neutrophils | | K/uL | [facility] | | | | | | MEDICAL | | | | | | CENTER - | | | | | | LABORATORY | | + + + + + + | Absolute | 2.67 | 0.60 - 3.20 | [facility] | | | Lymphocytes | | K/uL | [facility] | | | | | | MEDICAL | | | | | | CENTER - | | | | | | LABORATORY | | + + + + + + | Absolute | 0.73 | 0.00 - 1.00 | [facility] | | | Monocytes | | K/uL | [facility] | | | | | | MEDICAL | | | | | | CENTER - | | | | | | LABORATORY | | + + + + + + | Absolute | 0.60 (H) | 0.00 - 0.40 | [facility] | | | Eosinophils | | K/uL | [facility] | | | | | | MEDICAL | | | | | | CENTER - | | | | | | LABORATORY | | + + + + + + | Absolute | 0.11 (H) | 0.00 - 0.10 | [facility] | | | Basophils | | K/uL | [facility] | | | | | | MEDICAL | | | | | | CENTER - | | | | | | LABORATORY | | + + + + + + | Absolute | 0.03Comment: For | 0.00 - 0.03 | [facility] | | | Immature | patients, use | K/uL | [facility] | | | Granulocyte | the special reference | | MEDICAL | | | s | ranges listed below. | | CENTER - | | | | | | LABORATORY | | + + + + + + | % nRBC | 0 | 0 - 2 per 100 | [facility] | | | | | WBC's | [facility] | | | | | | MEDICAL | | | | | | CENTER - | | | | | | LABORATORY | | + + + + + + | Absolute | 0.00 | 0.00 - 0.01 | [facility] | | | nRBC | | K/uL | [facility] | | | | | | MEDICAL | | | | | | CENTER - | | | | | | LABORATORY | | + + + + + + + + | Specimen | + + | Blood | + + + + + | Narrative | Performed At | + + + | IMMATURE GRANULOCYTES - For patients, use the following | [facility] | | reference ranges: Trim. Absolute (K/uL) Percentage (%) | [facility] | | 1st 0.003-0.091 K/uL 0.0-0.9% 2nd 0.007-0.247 K/uL | MEDICAL CENTER | | 0.1-2.0% 3rd 0.018-0.456 K/uL 0.1-2.0% | - LABORATORY | + + + + + + + + | Performing | Address | City/State/Zipcode | Phone Number | | Organization | | | | + + + + + | [facility] | [address] | [place] | [phone] | | [facility] | | [address] | | | - LABORATORY | | | | + + + + + Magnesium (04/30/2018 6:11 AM PST) + +-------+ + + + | Component | Value | Ref Range | Performed | Pathologist | | | | | At | Signature | + +-------+ + + + | Magnesium | 2.0 | 1.8 - 2.5 mg/dL | [facility] | | | | | | [facility] | | | | | | [facility] | | | | | | [facility] - | | | | | | LABORATORY | | + +-------+ + + + + + | Specimen | + + | Blood | + + + + + + + | Performing | Address | City/State/Zipcode | Phone Number | | Organization | | | | + + + + + | [facility] | [address] | [place] | [phone] | | [facility] | | [address] | | | - LABORATORY | | | | + + + + + Basic Metabolic Panel (04/30/2018 6:11 AM PST) + + + + + + | Component | Value | Ref Range | Performed | Pathologist | | | | | At | Signature | + + + + + + | Na | 139 | 136 - 149 | [facility] | | | | | mmol/L | [facility] | | | | | | MEDICAL | | | | | | CENTER - | | | | | | LABORATORY | | + + + + + + | K | 4.4 | 3.5 - 5.1 | [facility] | | | | | mmol/L | [facility] | | | | | | [facility] | | | | | | CENTER - | | | | | | LABORATORY | | + + + + + + | Cl | 106 | 98 - 109 mmol/L | [facility] | | | | | | [facility] | | | | | | [facility] | | | | | | CENTER - | | | | | | LABORATORY | | + + + + + + | CO2 | 24 | 24 - 31 mmol/L | [facility] | | | | | | [facility] | | | | | | [facility] | | | | | | CENTER - | | | | | | LABORATORY | | + + + + + + | Anion Gap | 9 | 3 - 16 mmol/L | [facility] | | | | | | [facility] | | [facility] | | | [facility] | | | | | | CENTER - | | | | | | LABORATORY | | + + + + + + | Glucose | 84 | 70 - 109 mg/dL | [facility] | | | | | | [facility] | | | | | | [facility] | | | | | | CENTER - | | | | | | LABORATORY | | + + + + + + | BUN | 13 | 7 - 18 mg/dL | [facility] | | | | | | [facility] | | | | | | [facility]ICAL | | | | | | CENTER - | | | | | | LABORATORY | | + + + + + + | Creatinine | 1.40 (H) | 0.60 - 1.30 | [facility] | | | | | mg/dL | [facility] | | | | | | MEDICAL | | | | | | CENTER - | | | | | | LABORATORY | | + + + + + + | eGFR, | 41 (L)Comment: | >=60 | [facility] | | | non- | GLOMERULAR FILTRATION | mL/min/1.73m2 | [facility] | | | [place] | RATE,ESTIMATED | | MEDICAL | | | | mL/min/1.78d2Kmvk than | | CENTER - | | | | 60 Chronic kidney | | LABORATORY | | | | disease,if found over a | | | | | | 3-month period.Less than | | | | | | 15 Kidney failureFor | | | | | | | | | | | | Americans,multiply the | | | | | | calculated GFR by 1.21. | | | | | | | | | | + + + + + + | Calcium | 8.0 (L) | 8.3 - 10.5 | [facility] | | | | | mg/dL | [facility] | | | | | | MEDICAL | | | | | | CENTER - | | | | | | LABORATORY | | + + + + + + | BUN/Creatin | 9.3 | | [facility] | | | ine Ratio | | | [facility] | | | | | | MEDICAL | | | | | | CENTER - | | | | | | LABORATORY | | + + + + + + + + | Specimen | + + | Blood | + + + + + + + | Performing | Address | City/State/Zipcode | Phone Number | | Organization | | | | + + + + + | [facility] | [address] | [place] | [phone] | | [facility] | | [address] | | | - LABORATORY | | | | + + + + + Retic Count (04/29/2018 7:31 AM PST) + + + + + + | Component | Value | Ref Range | Performed | Pathologist | | | | | At | Signature | + + + + + + | % | 2.0 (H) | 0.5 - 1.5 % | [facility] | | | Reticulocyt | | | [facility] | | | e Count | | | MEDICAL | | | | | | CENTER - | | | | | | LABORATORY | | + + + + + + | Absolute | 0.0630 | 0.0164 - 0.0776 | [facility] | | | Reticulocyt | | M/uL | [facility] | | | e Count | | | MEDICAL | | | | | | CENTER - | | | | | | LABORATORY | | + + + + + + | Immature | 17.10 (H)Comment: Values | 2.30 - 15.90 % | [facility] | | | Reticulocyt | above normal range | | [facility] | | | e Fraction | indicate an increase in | | MEDICAL | | | | RBC production in the | | CENTER - | | | | bone marrow. | | LABORATORY | | + + + + + + | Reticulocyt | 34.3Comment: Values | 29 - 38 pg | [facility] | | | e | below 29 pg are an early | | [facility] | | | Hemoglobin | indicator of iron | | MEDICAL | | | Content | deficiency. | | CENTER - | | | | | | LABORATORY | | + + + + + + + + | Specimen | + + | Blood | + + + + + + + | Performing | Address | City/State/Zipcode | Phone Number | | Organization | | | | + + + + + | [facility] | [address] | [place] | [phone] | | [facility] | | [address] | | | - LABORATORY | | | | + + + + + Ferritin (04/29/2018 7:31 AM PST) + +-------+ + + + | Component | Value | Ref Range | Performed | Pathologist | | | | | At | Signature | + +-------+ + + + | FERRITIN | 57 | 11 - 307 ng/mL | [facility] | | | | | [facility] | | | | | | [facility] | | | | | | [facility] - | | | | | | LABORATORY | | + +-------+ + + + + + | Specimen | + + | Blood | + + + + + + + | Performing | Address | City/State/Zipcode | Phone Number | | Organization | | | | + + + + + | [facility] | [address] | [place] | [phone] | | [facility] | | [address] | | | - LABORATORY | | | | + + + + + Magnesium (04/29/2018 7:31 AM PST) + +-------+ + + + | Component | Value | Ref Range | Performed | Pathologist | | | | | At | Signature | + +-------+ + + + | Magnesium | 2.0 | 1.8 - 2.5 mg/dL | [facility] | [facility] | | [facility] | | | | | | [facility] | | | | | | C[facility] - | | | | | | LABORATORY | | + +-------+ + + + + + | Specimen | + + | Blood | + + + + + + + | Performing | Address | City/State/Zipcode | Phone Number | | Organization | | | | + + + + + | [facility] | [address] | [place] | [phone] | | [facility] | | [address] | | | - LABORATORY | | | | + + + + + Basic Metabolic Panel (04/29/2018 7:31 AM PST) + + + + + + | Component | Value | Ref Range | Performed | Pathologist | | | | | At | Signature | + + + + + + | Na | 137 | 136 - 149 | [facility] | | | | | mmol/L | [facility] | | | | | | [facility] | | | | | | CENTER - | | | | | | LABORATORY | | + + + + + + | K | 4.3 | 3.5 - 5.1 | [facility] | | | | | mmol/L | [facility] | | | | | | [facility] | | | | | | CENTER - | | | | | | LABORATORY | | + + + + + + | Cl | 105 | 98 - 109 mmol/L | [facility] | | | | | | [facility] | | | | | | [facility] | | | | | | [facility] - | | | | | | LABORATORY | | + + + + + + | CO2 | 25 | 24 - 31 mmol/L | [facility] | | | | | | [facility] | | | | | | [facility] | | | | | | CENTER - | | | | | | LABORATORY | | + + + + + + | Anion Gap | 7 | 3 - 16 mmol/L | [facility] | | | | | | [facility] | | | | | | [facility] | | | | | | [facility] - | | | | | | LABORATORY | | + + + + + + | Glucose | 85 | 70 - 109 mg/dL | [facility] | | | | | | [facility] | | | | | | [facility] | | | | | | [facility] - | | | | | | LABORATORY | | + + + + + + | BUN | 10 | 7 - 18 mg/dL | [facility] | | | | | | [facility] | | | | | | [facility] | | | | | | [facility] - | | | | | | LABORATORY | | + + + + + + | Creatinine | 1.39 (H) | 0.60 - 1.30 | [facility] | | | | | mg/dL | [facility] | | | | | | MED[facility] | | | | | | CENTER - | | | | | | LABORATORY | | + + + + + + | eGFR, | 42 (L)Comment: | >=60 | [facility] | | | non- | GLOMERULAR FILTRATION | mL/min/1.73m2 | [facility] | | | [place] | RATE,ESTIMATED | | MEDICAL | | | | mL/min/1.86p7Xcgy than | | CENTER - | | | | 60 Chronic kidney | | LABORATORY | | | | disease,if found over a | | | | | | 3-month period.Less than | | | | | | 15 Kidney failureFor | | | | | | | | | | | | Americans,multiply the | | | | | | calculated GFR by 1.21. | | | | | | | | | | + + + + + + | Calcium | 8.2 (L) | 8.3 - 10.5 | [facility] | | | | | mg/dL | [facility] | | | | | | MEDICAL | | | | | | CENTER - | | | | | | LABORATORY | | + + + + + + | BUN/Creatin | 7.2 | | [facility] | | | ine Ratio | | | [facility] | | | | | | [facility] | | | | | | CENTER - | | | | | | LABORATORY | | + + + + + + + + | Specimen | + + | Blood | + + + + + + + | Performing | Address | City/State/Zipcode | Phone Number | | Organization | | | | + + + + + | [facility] | [address] | [place] | [phone] | | [facility] | | [address] | | | - LABORATORY | | | | + + + + + Magnesium (04/28/2018 6:07 AM PST) + +-------+ + + + | Component | Value | Ref Range | Performed | Pathologist | | | | | At | Signature | + +-------+ + + + | Magnesium | 2.1 | 1.8 - 2.5 mg/dL | [facility] | | | | | | [facility] | | | | | | [facility] | | | | | | [facility] - | | | | | | LABORATORY | | + +-------+ + + + + + | Specimen | + + | Blood | + + + + + + + | Performing | Address | City/State/Zipcode | Phone Number | | Organization | | | | + + + + + | [facility] | [address] | [place] | [phone] | | [facility] | | [address] | | | - LABORATORY | | | | + + + + + Basic Metabolic Panel (04/28/2018 6:07 AM PST) + + + + + + | Component | Value | Ref Range | Performed | Pathologist | | | | | At | Signature | + + + + + + | Na | 137 | 136 - 149 | [facility] | | | | | mmol/L | [facility] | | | | | | MEDICAL | | | | | | CENTER - | | | | | | LABORATORY | | + + + + + + | K | 4.2 | 3.5 - 5.1 | [facility] | | | | | mmol/L | [facility] | | | | | | MEDICAL | | | | | | CENTER - | | | | | | LABORATORY | | + + + + + + | Cl | 105 | 98 - 109 mmol/L | [facility] | | | | | | [facility] | | | | | | [facility] | | | | | | CENTER - | | | | | | LABORATORY | | + + + + + + | CO2 | 23 (L) | 24 - 31 mmol/L | [facility] | | | | | | [facility] | | | | | | [facility] | | | | | | CENTER - | | | | | | LABORATORY | | + + + + + + | Anion Gap | 9 | 3 - 16 mmol/L | [facility] | | | | | | [facility] | | | | | | [facility] | | | | | | CENTER - | | | | | | LABORATORY | | + + + + + + | Glucose | 103 | 70 - 109 mg/dL | [facility] | | | | | | [facility] | | | | | | [facility] | | | | | | CENTER - | | | | | | LABORATORY | | + + + + + + | BUN | 10 | 7 - 18 mg/dL | [facility] | | | | | | [facility] | | | | | | [facility] | | | | | | CENTER - | | | | | | LABORATORY | | + + + + + + | Creatinine | 1.20 | 0.60 - 1.30 | [facility] | | | | | mg/dL | [facility] | | | | | | MEDICAL | | | | | | CENTER - | | | | | | LABORATORY | | + + + + + + | eGFR, | 49 (L)Comment: | >=60 | [facility] | | | non- | GLOMERULAR FILTRATION | mL/min/1.73m2 | [facility] | | | [place] | RATE,ESTIMATED | | MEDICAL | | | | mL/min/1.00r2Fokc than | | CENTER - | | | | 60 Chronic kidney | | LABORATORY | | | | disease,if found over a | | | | | | 3-month period.Less than | | | | | | 15 Kidney failureFor | | | | | | | | | | | | Americans,multiply the | | | | | | calculated GFR by 1.21. | | | | | | | | | | + + + + + + | Calcium | 8.2 (L) | 8.3 - 10.5 | [facility] | | | | | mg/dL | [facility] | | | | | | MEDICAL | | | | | | CENTER - | | | | | | LABORATORY | | + + + + + + | BUN/Creatin | 8.3 | | [facility] | | | ine Ratio | | | [facility] | | | | | | MEDICAL | | | | | | CENTER - | | | | | | LABORATORY | | + + + + + + + + | Specimen | + + | Blood | + + + + + + + | Performing | Address | City/State/Zipcode | Phone Number | | Organization | | | | + + + + + | [facility] | [address] | [place] | [phone] | | [facility] | | [address] | | | - LABORATORY | | | | + + + + + CBC with Differential (04/28/2018 6:07 AM PST) + + + + + + | Component | Value | Ref Range | Performed | Pathologist | | | | | At | Signature | + + + + + + | White Blood | 7.9 | 4.0 - 11.0 K/uL | [facility] | | | Cells | | | [facility] | | | | | | [facility] | | | | | | CENTER - | | | | | | LABORATORY | | + + + + + + | Red Blood | 3.32 (L) | 3.70 - 5.20 | [facility] | | | Cells | | M/uL | [facility] | | | | | | MEDICAL | | | | | | CENTER - | | | | | | LABORATORY | | + + + + + + | Hemoglobin | 9.0 (L) | 11.5 - 16.0 | [facility] | | | | | g/dL | [facility] | | | | | | [facility]ICAL | | | | | | CENTER - | | | | | | LABORATORY | | + + + + + + | Hematocrit | 28.4 (L) | 34.0 - 47.0 % | [facility] | | | | | | [facility] | | | | | | [facility]ICAL | | | | | | CENTER - | | | | | | LABORATORY | | + + + + + + | MCV | 85.5 | 83.0 - 101.0 fL | [facility] | | | | | | [facility] | | | | | | [facility] | | | | | | CENTER - | | | | | | LABORATORY | | + + + + + + | MCH | 27.1 (L) | 28.0 - 35.0 pg | [facility] | | | | | | [facility] | | | | | | [facility]ICAL | | | | | | CENTER - | | | | | | LABORATORY | | + + + + + + | MCHC | 31.7 (L) | 32.0 - 36.0 | [facility] | | | | | g/dL | [facility] | | | | | | [facility]ICAL | | | | | | CENTER - | | | | | | LABORATORY | | + + + + + + | RDW-CV | 20.9 (H) | <15.0 % | [facility] | | | | | | [facility] | | | | | | [facility] | | | | | | CENTER - | | | | | | LABORATORY | | + + + + + + | RDW-SD | 65.5 (H) | 35.1 - 46.3 fL | [facility] | | | | | | [facility] | | | | | | [facility] | | | | | | CENTER - | | | | | | LABORATORY | | + + + + + + | Platelet | 111 (L) | 140 - 440 K/uL | [facility] | | | Count | | | [facility] | | | | | | MEDICAL | | | | | | CENTER - | | | | | | LABORATORY | | + + + + + + | MPV | 9.5 | 6.5 - 12.4 fL | [facility] | | | | | | [facility] | | | | | | [facility] | | | | | | CENTER - | | | | | | LABORATORY | | + + + + + + | % | 51.0 | 45.0 - 82.0 % | [facility] | | | Neutrophils | | | [facility] | | | | | | MEDICAL | | | | | | CENTER - | | | | | | LABORATORY | | + + + + + + | % | 31.1 | 20.0 - 45.0 % | [facility] | | | Lymphocytes | | | [facility] | | | | | | MEDICAL | | | | | | CENTER - | | | | | | LABORATORY | | + + + + + + | % Monocytes | 9.1 | 4.0 - 12.0 % | [facility] | | | | | | [facility] | | | | | | [facility]ICAL | | | | | | CENTER - | | | | | | LABORATORY | | + + + + + + | % | 7.3 (H) | 0.0 - 5.0 % | [facility] | | | Eosinophils | | | [facility] | | | | | | MEDICAL | | | | | | CENTER - | | | | | | LABORATORY | | + + + + + + | % Basophils | 1.1 (H) | 0.0 - 1.0 % | [facility] | | | | | | [facility] | | | | | | MEDICAL | | | | | | CENTER - | | | | | | LABORATORY | | + + + + + + | % Immature | 0.4Comment: For | 0.0 - 0.4 % | [facility] | | | Granulocyte | patients, use the | | [facility] | | | s | special reference ranges | | MEDICAL | | | | listed below. | | CENTER - | | | | | | LABORATORY | | + + + + + + | Absolute | 4.02 | 1.80 - 8.50 | [facility] | | | Neutrophils | | K/uL | [facility] | | | | | | MEDICAL | | | | | | CENTER - | | | | | | LABORATORY | | + + + + + + | Absolute | 2.46 | 0.60 - 3.20 | [facility] | | | Lymphocytes | | K/uL | [facility] | | | | | | MEDICAL | | | | | | CENTER - | | | | | | LABORATORY | | + + + + + + | Absolute | 0.72 | 0.00 - 1.00 | [facility] | | | Monocytes | | K/uL | [facility] | | | | | | MEDICAL | | | | | | CENTER - | | | | | | LABORATORY | | + + + + + + | Absolute | 0.58 (H) | 0.00 - 0.40 | [facility] | | | Eosinophils | | K/uL | [facility] | | | | | | MEDICAL | | | | | | CENTER - | | | | | | LABORATORY | | + + + + + + | Absolute | 0.09 | 0.00 - 0.10 | [facility] | | | Basophils | | K/uL | [facility] | | | | | | MEDICAL | | | | | | CENTER - | | | | | | LABORATORY | | + + + + + + | Absolute | 0.03Comment: For | 0.00 - 0.03 | [facility] | | | Immature | patients, use | K/uL | [facility] | | | Granulocyte | the special reference | | MEDICAL | | | s | ranges listed below. | | CENTER - | | | | | | LABORATORY | | + + + + + + | % nRBC | 0 | 0 - 2 per 100 | [facility] | | | | | WBC's | [facility] | | | | | | MEDICAL | | | | | | CENTER - | | | | | | LABORATORY | | + + + + + + | Absolute | 0.00 | 0.00 - 0.01 | [facility] | | | nRBC | | K/uL | [facility] | | | | | | MEDICAL | | | | | | CENTER - | | | | | | LABORATORY | | + + + + + + + + | Specimen | + + | Blood | + + + + + | Narrative | Performed At | + + + | IMMATURE GRANULOCYTES - For patients, use the following | [facility] | | reference ranges: Trim. Absolute (K/uL) Percentage (%) | [facility] | | 1st 0.003-0.091 K/uL 0.0-0.9% 2nd 0.007-0.247 K/uL | MEDICAL CENTER | | 0.1-2.0% 3rd 0.018-0.456 K/uL 0.1-2.0% | - LABORATORY | + + + + + + + + | Performing | Address | City/State/Zipcode | Phone Number | | Organization | | | | + + + + + | [facility] | [address] | [place], [place] | [phone] | | [facility] | | [address] | | | - LABORATORY | | | | + + + + + Magnesium (04/27/2018 6:07 AM PST) + +-------+ + + + | Component | Value | Ref Range | Performed | Pathologist | | | | | At | Signature | + +-------+ + + + | Magnesium | 2.1 | 1.8 - 2.5 mg/dL | [facility] | | | | | | [facility] | | | | | | MEDICAL | | | | | | CENTER - | | | | | | LABORATORY | | + +-------+ + + + + + | Specimen | + + | Blood | + + + + + + + | Performing | Address | City/State/Zipcode | Phone Number | | Organization | | | | + + + + + | [facility] | [address] | [place] | [phone] | | [facility] | | [address] | | | - LABORATORY | | | | + + + + + Basic Metabolic Panel (04/27/2018 6:07 AM PST) + + + + + + | Component | Value | Ref Range | Performed | Pathologist | | | | | At | Signature | + + + + + + | Na | 138 | 136 - 149 | [facility] | | | | | mmol/L | [facility] | | | | | | MEDICAL | | | | | | CENTER - | | | | | | LABORATORY | | + + + + + + | K | 4.3 | 3.5 - 5.1 | [facility] | | | | | mmol/L | [facility] | | | | | | MEDICAL | | | | | | CENTER - | | | | | | LABORATORY | | + + + + + + | Cl | 105 | 98 - 109 mmol/L | [facility] | | | | | | [facility] | | | | | | MEDICAL | | | | | | CENTER - | | | | | | LABORATORY | | + + + + + + | CO2 | 23 (L) | 24 - 31 mmol/L | [facility] | | | | | | [facility] | | | | | | MEDICAL | | | | | | CENTER - | | | | | | LABORATORY | | + + + + + + | Anion Gap | 10 | 3 - 16 mmol/L | [facility] | | | | | | [facility] | | | | | | MEDICAL | | | | | | CENTER - | | | | | | LABORATORY | | + + + + + + | Glucose | 84 | 70 - 109 mg/dL | [facility] | | | | | | [facility] | | | | | | MEDICAL | | | | | | CENTER - | | | | | | LABORATORY | | + + + + + + | BUN | 8 | 7 - 18 mg/dL | [facility] | | | | | | [facility] | | | | | | MEDICAL | | | | | | CENTER - | | | | | | LABORATORY | | + + + + + + | Creatinine | 1.11 | 0.60 - 1.30 | [facility] | | | | | mg/dL | [facility] | | | | | | MEDICAL | | | | | | CENTER - | | | | | | LABORATORY | | + + + + + + | eGFR, | 54 (L)Comment: | >=60 | [facility] | | | non- | GLOMERULAR FILTRATION | mL/min/1.73m2 | [facility] | | | [place] | RATE,ESTIMATED | | MEDICAL | | | | mL/min/1.55y4Uira than | | CENTER - | | | | 60 Chronic kidney | | LABORATORY | | | | disease,if found over a | | | | | | 3-month period.Less than | | | | | | 15 Kidney failureFor | | | | | | | | | | | | Americans,multiply the | | | | | | calculated GFR by 1.21. | | | | | | | | | | + + + + + + | Calcium | 8.3 | 8.3 - 10.5 | [facility] | | | | | mg/dL | [facility] | | | | | | [facility] | | | | | | CENTER - | | | | | | LABORATORY | | + + + + + + | BUN/Creatin | 7.2 | | [facility] | | | ine Ratio | | | [facility] | | | | | | MEDICAL | | | | | | CENTER - | | | | | | LABORATORY | | + + + + + + + + | Specimen | + + | Blood | + + + + + + + | Performing | Address | City/State/Zipcode | Phone Number | | Organization | | | | + + + + + | [facility] | [address] | [place] | [phone] | | [facility] | | [address] | | | - LABORATORY | | | | + + + + + CBC no Differential (04/27/2018 6:07 AM PST) + + + + + + | Component | Value | Ref Range | Performed | Pathologist | | | | | At | Signature | + + + + + + | White Blood | 8.5 | 4.0 - 11.0 K/uL | [facility] | | | Cells | | | [facility] | | | | | | MEDICAL | | | | | | CENTER - | | | | | | LABORATORY | | + + + + + + | Red Blood | 3.29 (L) | 3.70 - 5.20 | [facility] | | | Cells | | M/uL | [facility] | | | | | | [facility] | | | | | | CENTER - | | | | | | LABORATORY | | + + + + + + | Hemoglobin | 9.0 (L) | 11.5 - 16.0 | [facility] | | | | | g/dL | [facility] | | | | | | [facility] | | | | | | CENTER - | | | | | | LABORATORY | | + + + + + + | Hematocrit | 28.2 (L) | 34.0 - 47.0 % | [facility] | | | | | | [facility] | | | | | | MEDICAL | | | | | | CENTER - | | | | | | LABORATORY | | + + + + + + | MCV | 85.7 | 83.0 - 101.0 fL | [facility] | | | | | | [facility] | | | | | | MEDICAL | | | | | | CENTER - | | | | | | LABORATORY | | + + + + + + | MCH | 27.4 (L) | 28.0 - 35.0 pg | [facility] | | | | | | [facility] | | | | | | MEDICAL | | | | | | CENTER - | | | | | | LABORATORY | | + + + + + + | MCHC | 31.9 (L) | 32.0 - 36.0 | [facility] | | | | | g/dL | [facility] | | | | | | MEDICAL | | | | | | CENTER - | | | | | | LABORATORY | | + + + + + + | RDW-CV | 21.1 (H) | <15.0 % | [facility] | | | | | | [facility] | | | | | | MEDICAL | | | | | | CENTER - | | | | | | LABORATORY | | + + + + + + | RDW-SD | 66.4 (H) | 35.1 - 46.3 fL | [facility] | | | | | | [facility] | | | | | | MEDICAL | | | | | | CENTER - | | | | | | LABORATORY | | + + + + + + | Platelet | 104 (L) | 140 - 440 K/uL | [facility] | | | Count | | | [facility] | | | | | | MEDICAL | | | | | | CENTER - | | | | | | LABORATORY | | + + + + + + | MPV | 9.3 | 6.5 - 12.4 fL | [facility] | | | | | | [facility] | | | | | | MEDICAL | | | | | | CENTER - | | | | | | LABORATORY | | + + + + + + | % nRBC | 0 | 0 - 2 per 100 | [facility] | | | | | WBC's | [facility] | | | | | | MEDICAL | | | | | | CENTER - | | | | | | LABORATORY | | + + + + + + | Absolute | 0.00 | 0.00 - 0.01 | [facility] | | | nRBC | | K/uL | [facility] | | | | | | MEDICAL | | | | | | CENTER - | | | | | | LABORATORY | | + + + + + + + + | Specimen | + + | Blood | + + + + + + + | Performing | Address | City/State/Zipcode | Phone Number | | Organization | | | | + + + + + | [facility] | [address] | [place] | [phone] | | [facility] | | [address] | | | - LABORATORY | | | | + + + + + Magnesium (04/26/2018 6:38 AM PST) + +---------+ + + + | Component | Value | Ref Range | Performed | Pathologist | | | | | At | Signature | + +---------+ + + + | Magnesium | 1.7 (L) | 1.8 - 2.5 mg/dL | [facility] | | | | | | [facility] | | | | | | [facility]ICAL | | | | | | CENTER - | | | | | | LABORATORY | | + +---------+ + + + + + | Specimen | + + | Blood | + + + + + + + | Performing | Address | City/State/Zipcode | Phone Number | | Organization | | | | + + + + + | [facility] | [address] | [place], [place] | [phone] | | [facility] | | [address] | | | - LABORATORY | | | | + + + + + Basic Metabolic Panel (04/26/2018 6:38 AM PST) + + + + + + | Component | Value | Ref Range | Performed | Pathologist | | | | | At | Signature | + + + + + + | Na | 137 | 136 - 149 | [facility] | | | | | mmol/L | [facility] | | | | | | MEDICAL | | | | | | CENTER - | | | | | | LABORATORY | | + + + + + + | K | 4.6 | 3.5 - 5.1 | [facility] | | | | | mmol/L | [facility] | | | | | | MEDICAL | | | | | | CENTER - | | | | | | LABORATORY | | + + + + + + | Cl | 107 | 98 - 109 mmol/L | [facility] | | | | | | [facility] | | | | | | MEDICAL | | | | | | CENTER - | | | | | | LABORATORY | | + + + + + + | CO2 | 22 (L) | 24 - 31 mmol/L | [facility] | | | | | | [facility] | | | | | | MEDICAL | | | | | | CENTER - | | | | | | LABORATORY | | + + + + + + | Anion Gap | 8 | 3 - 16 mmol/L | [facility] | | | | | | [facility] | | | | | | MEDICAL | | | | | | CENTER - | | | | | | LABORATORY | | + + + + + + | Glucose | 94 | 70 - 109 mg/dL | [facility] | | | | | | [facility] | | | | | | MEDICAL | | | | | | CENTER - | | | | | | LABORATORY | | + + + + + + | BUN | 7 | 7 - 18 mg/dL | [facility] | | | | | | [facility] | | | | | | MEDICAL | | | | | | CENTER - | | | | | | LABORATORY | | + + + + + + | Creatinine | 1.02 | 0.60 - 1.30 | [facility] | | | | | mg/dL | [facility] | | | | | | MEDICAL | | | | | | CENTER - | | | | | | LABORATORY | | + + + + + + | eGFR, | 59 (L)Comment: | >=60 | [facility] | | | non- | GLOMERULAR FILTRATION | mL/min/1.73m2 | [facility] | | | [place] | RATE,ESTIMATED | | MEDICAL | | | | mL/min/1.44q1Hoia than | | CENTER - | | | | 60 Chronic kidney | | LABORATORY | | | | disease,if found over a | | | | | | 3-month period.Less than | | | | | | 15 Kidney failureFor | | | | | | | | | | | | Americans,multiply the | | | | | | calculated GFR by 1.21. | | | | | | | | | | + + + + + + | Calcium | 8.2 (L) | 8.3 - 10.5 | [facility] | | | | | mg/dL | [facility] | | | | | | MEDICAL | | | | | | CENTER - | | | | | | LABORATORY | | + + + + + + | BUN/Creatin | 6.9 | | [facility] | | | ine Ratio | | | [facility] | | | | | | MEDICAL | | | | | | CENTER - | | | | | | LABORATORY | | + + + + + + + + | Specimen | + + | Blood | + + + + + + + | Performing | Address | City/State/Zipcode | Phone Number | | Organization | | | | + + + + + | [facility] | [address] | [place], [place] | [phone] | | [facility] | | [address] | | | - LABORATORY | | | | + + + + + CBC no Differential (04/26/2018 6:38 AM PST) + + + + + + | Component | Value | Ref Range | Performed | Pathologist | | | | | At | Signature | + + + + + + | White Blood | 8.4 | 4.0 - 11.0 K/uL | [facility] | | | Cells | | | [facility] | | | | | | [facility] | | | | | | CENTER - | | | | | | LABORATORY | | + + + + + + | Red Blood | 3.22 (L) | 3.70 - 5.20 | [facility] | | | Cells | | M/uL | [facility] | | | | | | MEDICAL | | | | | | CENTER - | | | | | | LABORATORY | | + + + + + + | Hemoglobin | 8.7 (L) | 11.5 - 16.0 | [facility] | | | | | g/dL | [facility] | | | | | | [facility]ICAL | | | | | | CENTER - | | | | | | LABORATORY | | + + + + + + | Hematocrit | 27.0 (L) | 34.0 - 47.0 % | [facility] | | | | | | [facility] | | | | | | [facility] | | | | | | C[facility] - | | | | | | LABORATORY | | + + + + + + | MCV | 83.9 | 83.0 - 101.0 fL | [facility] | | | | | | [facility] | | | | | | [facility] | | | | | | C[facility] - | | | | | | LABORATORY | | + + + + + + | MCH | 27.0 (L) | 28.0 - 35.0 pg | [facility] | | | | | | [facility] | | | | | | [facility] | | | | | | CENTER - | | | | | | LABORATORY | | + + + + + + | MCHC | 32.2 | 32.0 - 36.0 | [facility] | | | | | g/dL | [facility] | | | | | | [facility] | | | | | | CENTER - | | | | | | LABORATORY | | + + + + + + | RDW-CV | 20.8 (H) | <15.0 % | [facility] | | | | | | [facility] | | | | | | [facility] | | | | | | CENTER - | | | | | | LABORATORY | | + + + + + + | RDW-SD | 63.9 (H) | 35.1 - 46.3 fL | [facility] | | | | | | [facility] | | | | | | [facility] | | | | | | CENTER - | | | | | | LABORATORY | | + + + + + + | Platelet | 122 (L) | 140 - 440 K/uL | [facility] | | | Count | | | [facility] | | | | | | [facility] | | | | | | CENTER - | | | | | | LABORATORY | | + + + + + + | MPV | 9.6 | 6.5 - 12.4 fL | [facility] | | | | | | [facility] | | | | | | [facility]ICAL | | | | | | CENTER - | | | | | | LABORATORY | | + + + + + + | Immature | 2.0Comment: Low PLT + | 0.9 - 11.2 % | [facility] | | | Platelet | Low IPF are consistent | | [facility] | | | Fraction | with a production | | MEDICAL | | | | disorder. Low PLT + High | | CENTER - | | | | IPF are consistent with | | LABORATORY | | | | destruction mechanism. | | | | + + + + + + | % nRBC | 0 | 0 - 2 per 100 | [facility] | | | | | WBC's | [facility] | | | | | | MEDICAL | | | | | | CENTER - | | | | | | LABORATORY | | + + + + + + | Absolute | 0.00 | 0.00 - 0.01 | [facility] | | | nRBC | | K/uL | [facility] | | | | | | MEDICAL | | | | | | CENTER - | | | | | | LABORATORY | | + + + + + + + + | Specimen | + + | Blood | + + + + + + + | Performing | Address | City/State/Zipcode | Phone Number | | Organization | | | | + + + + + | [facility] | [address] | [place] | [phone] | | [facility] | | [address] | | | - LABORATORY | | | | + + + + + Protime INR (04/25/2018 5:56 AM PST) + + + + + + | Component | Value | Ref Range | Performed | Pathologist | | | | | At | Signature | + + + + + + | Prothrombin | 18.2 (H) | 11.3 - 13.9 | [facility] | | | Time | | seconds | [facility] | | | | | | MEDICAL | | | | | | CENTER - | | | | | | LABORATORY | | + + + + + + | INR | 1.5 (H)Comment: Usual | 0.9 - 1.1 | [facility] | | | | Oral Anticoagulation | | [facility] | | | | Range: 2.0 - | | MEDICAL | | | | 3.0High Level Oral | | CENTER - | | | | Anticoagulation Range: | | LABORATORY | | | | 2.5 - 3.5 | | | | + + + + + + + + | Specimen | + + | Blood | + + + + + + + | Performing | Address | City/State/Zipcode | Phone Number | | Organization | | | | + + + + + | [facility] | [address] | [place], [place] | [phone] | | [facility] | | [address] | | | - LABORATORY | | | | + + + + + Hepatic Function Panel (04/25/2018 5:56 AM PST) + + + + + + | Component | Value | Ref Range | Performed | Pathologist | | | | | At | Signature | + + + + + + | Bilirubin | 1.2 | 0.1 - 1.5 mg/dL | [facility] | | | Total | | | [facility] | | | | | | MEDICAL | | | | | | CENTER - | | | | | | LABORATORY | | + + + + + + | Total | 5.1 (L) | 6.0 - 7.8 g/dL | [facility] | | | Protein | | | [facility] | | | | | | MEDICAL | | | | | | CENTER - | | | | | | LABORATORY | | + + + + + + | Albumin | 2.1 (L) | 3.2 - 5.0 g/dL | [facility] | | | | | | [facility] | | | | | | [facility]ICAL | | | | | | CENTER - | | | | | | LABORATORY | | + + + + + + | AST | 28 | 10 - 42 U/L | [facility] | | | | | | [facility] | | | | | | [facility]ICAL | | | | | | CENTER - | | | | | | LABORATORY | | + + + + + + | ALT | 13 | 6 - 45 U/L | [facility] | | | | | | [facility] | | | | | | MEDICAL | | | | | | CENTER - | | | | | | LABORATORY | | + + + + + + | Alkaline | 121 (H) | 40 - 110 U/L | [facility] | | | Phosphatase | | | [facility] | | | [facility] | | [facility] | | | | | | CENTER - | | | | | | LABORATORY | | + + + + + + | Globulin | 3.0 | 2.1 - 3.8 g/dL | [facility] | | | | | | [facility] | | | | | | [facility] | | | | | | CENTER - | | | | | | LABORATORY | | + + + + + + | Albumin/Ramandeep | 0.7 (L) | 0.8 - 2.0 | [facility] | | | bulin Ratio | | | [facility] | | | | | | [facility] | | | | | | CENTER - | | | | | | LABORATORY | | + + + + + + | Bilirubin, | 0.40 (H) | 0.00 - 0.20 | [facility] | | | Direct | | mg/dl | [facility] | | | | | | [facility]ICAL | | | | | | CENTER - | | | | | | LABORATORY | | + + + + + + + + | Specimen | + + | Blood | + + + + + + + | Performing | Address | City/State/Zipcode | Phone Number | | Organization | | | | + + + + + | [facility] | [address] | [place] | [phone] | | [facility] | | [address] | | | - LABORATORY | | | | + + + + + Magnesium (04/25/2018 5:56 AM PST) + +-------+ + + + | Component | Value | Ref Range | Performed | Pathologist | | | | | At | Signature | + +-------+ + + + | Magnesium | 1.8 | 1.8 - 2.5 mg/dL | [facility] | | | | | | [facility] | | | | | | MEDICAL | | | | | | CENTER - | | | | | | LABORATORY | | + +-------+ + + + + + | Specimen | + + | Blood | + + + + + + + | Performing | Address | City/State/Zipcode | Phone Number | | Organization | | | | + + + + + | [facility] | [address] | [place] | [phone] | | [facility] | | [address] | | | - LABORATORY | | | | + + + + + Basic Metabolic Panel (04/25/2018 5:56 AM PST) + + + + + + | Component | Value | Ref Range | Performed | Pathologist | | | | | At | Signature | + + + + + + | Na | 136 | 136 - 149 | [facility] | | | | | mmol/L | [facility] | | | | | | MEDICAL | | | | | | CENTER - | | | | | | LABORATORY | | + + + + + + | K | 4.3 | 3.5 - 5.1 | [facility] | | | | | mmol/L | [facility] | | | | | | MEDICAL | | | | | | CENTER - | | | | | | LABORATORY | | + + + + + + | Cl | 110 (H) | 98 - 109 mmol/L | [facility] | | | | | | [facility] | | | | | | MEDICAL | | | | | | CENTER - | | | | | | LABORATORY | | + + + + + + | CO2 | 23 (L) | 24 - 31 mmol/L | [facility] | | | | | | [facility] | | | | | | MEDICAL | | | | | | CENTER - | | | | | | LABORATORY | | + + + + + + | Anion Gap | 3 | 3 - 16 mmol/L | [facility] | | | | | | [facility] | | | | | | [facility]ICAL | | | | | | CENTER - | | | | | | LABORATORY | | + + + + + + | Glucose | 95 | 70 - 109 mg/dL | [facility] | | | | | | [facility] | | | | | | [facility] | | | | | | CENTER - | | | | | | LABORATORY | | + + + + + + | BUN | 6 (L) | 7 - 18 mg/dL | [facility] | | | | | | [facility] | | | | | | MEDICAL | | | | | | CENTER - | | | | | | LABORATORY | | + + + + + + | Creatinine | 1.20 | 0.60 - 1.30 | [facility] | | | | | mg/dL | [facility] | | | | | | MEDICAL | | | | | | CENTER - | | | | | | LABORATORY | | + + + + + + | eGFR, | 49 (L)Comment: | >=60 | [facility] | | | non- | GLOMERULAR FILTRATION | mL/min/1.73m2 | [facility] | | | [place] | RATE,ESTIMATED | | MEDICAL | | | | mL/min/1.26y0Wrxh than | | CENTER - | | | | 60 Chronic kidney | | LABORATORY | | | | disease,if found over a | | | | | | 3-month period.Less than | | | | | | 15 Kidney failureFor | | | | | | | | | | | | Americans,multiply the | | | | | | calculated GFR by 1.21. | | | | | | | | | | + + + + + + | Calcium | 8.0 (L) | 8.3 - 10.5 | [facility] | | | | | mg/dL | [facility] | | | | | | [facility] | | | | | | CENTER - | | | | | | LABORATORY | | + + + + + + | BUN/Creatin | 5.0 | | [facility] | | | ine Ratio | | | [facility] | | | | | | MEDICAL | | | | | | CENTER - | | | | | | LABORATORY | | + + + + + + + + | Specimen | + + | Blood | + + + + + + + | Performing | Address | City/State/Zipcode | Phone Number | | Organization | | | | + + + + + | [facility] | [address] | [place] | [phone] | | [facility] | | [address] | | | - LABORATORY | | | | + + + + + CBC no Differential (04/25/2018 5:56 AM PST) + + + + + + | Component | Value | Ref Range | Performed | Pathologist | | | | | At | Signature | + + + + + + | White Blood | 6.9 | 4.0 - 11.0 K/uL | [facility] | | | Cells | | | [facility] | | | | | | MEDICAL | | | | | | CENTER - | | | | | | LABORATORY | | + + + + + + | Red Blood | 2.96 (L) | 3.70 - 5.20 | [facility] | | | Cells | | M/uL | [facility] | | | | | | MEDICAL | | | | | | CENTER - | | | | | | LABORATORY | | + + + + + + | Hemoglobin | 8.1 (L) | 11.5 - 16.0 | [facility] | | | | | g/dL | [facility] | | | | | | MEDICAL | | | | | | CENTER - | | | | | | LABORATORY | | + + + + + + | Hematocrit | 24.9 (L) | 34.0 - 47.0 % | [facility] | | | | | | [facility] | | | | | | MEDICAL | | | | | | CENTER - | | | | | | LABORATORY | | + + + + + + | MCV | 84.1 | 83.0 - 101.0 fL | [facility] | | | | | | [facility] | | | | | | MEDICAL | | | | | | CENTER - | | | | | | LABORATORY | | + + + + + + | MCH | 27.4 (L) | 28.0 - 35.0 pg | [facility] | | | | | | [facility] | | | | | | MEDICAL | | | | | | CENTER - | | | | | | LABORATORY | | + + + + + + | MCHC | 32.5 | 32.0 - 36.0 | [facility] | | | | | g/dL | [facility] | | | | | | MEDICAL | | | | | | CENTER - | | | | | | LABORATORY | | + + + + + + | RDW-CV | 21.2 (H) | <15.0 % | [facility] | | | | | | [facility] | | | | | | MEDICAL | | | | | | CENTER - | | | | | | LABORATORY | | + + + + + + | RDW-SD | 66.4 (H) | 35.1 - 46.3 fL | [facility] | | | | | | [facility] | | | | | | MEDICAL | | | | | | CENTER - | | | | | | LABORATORY | | + + + + + + | Platelet | 98 (L) | 140 - 440 K/uL | [facility] | | | Count | | | [facility] | | | | | | MEDICAL | | | | | | CENTER - | | | | | | LABORATORY | | + + + + + + | MPV | 9.3 | 6.5 - 12.4 fL | [facility] | | | | | | [facility] | | | | | | [facility]ICAL | | | | | | CENTER - | | | | | | LABORATORY | | + + + + + + | % nRBC | 0 | 0 - 2 per 100 | [facility] | | | | | WBC's | [facility] | | | | | | MEDICAL | | | | | | CENTER - | | | | | | LABORATORY | | + + + + + + | Absolute | 0.00 | 0.00 - 0.01 | [facility] | | | nRBC | | K/uL | [facility] | | | [facility] | | [facility]ICAL | | | | | | CENTER - | | | | | | LABORATORY | | + + + + + + + + | Specimen | + + | Blood | + + + + + + + | Performing | Address | City/State/Zipcode | Phone Number | | Organization | | | | + + + + + | [facility] | [address] | [place] | [phone] | | [facility] | | [address] | | | - LABORATORY | | | | + + + + + Magnesium (04/24/2018 8:11 PM PST) + +-------+ + + + | Component | Value | Ref Range | Performed | Pathologist | | | | | At | Signature | + +-------+ + + + | Magnesium | 2.0 | 1.8 - 2.5 mg/dL | [facility] | | | | | | [facility] | | | | | | MEDICAL | | | | | | CENTER - | | | | | | LABORATORY | | + +-------+ + + + + + | Specimen | + + | Blood | + + + + + + + | Performing | Address | City/State/Zipcode | Phone Number | | Organization | | | | + + + + + | [facility] | [address] | [place] | [phone] | | [facility] | | [address] | | | - LABORATORY | | | | + + + + + Basic Metabolic Panel (04/24/2018 8:11 PM PST) + + + + + + | Component | Value | Ref Range | Performed | Pathologist | | | | | At | Signature | + + + + + + | Na | 138 | 136 - 149 | [facility] | | | | | mmol/L | [facility] | | | | | | MEDICAL | | | | | | CENTER - | | | | | | LABORATORY | | + + + + + + | K | 3.9 | 3.5 - 5.1 | [facility] | | | | | mmol/L | [facility] | | | | | | MEDICAL | | | | | | CENTER - | | | | | | LABORATORY | | + + + + + + | Cl | 105 | 98 - 109 mmol/L | [facility] | | | | | | [facility] | | | | | | MEDICAL | | | | | | CENTER - | | | | | | LABORATORY | | + + + + + + | CO2 | 22 (L) | 24 - 31 mmol/L | [facility] | | | | | | [facility] | | | | | | MEDICAL | | | | | | CENTER - | | | | | | LABORATORY | | + + + + + + | Anion Gap | 11 | 3 - 16 mmol/L | [facility] | | | | | | [facility] | | | | | | MEDICAL | | | | | | CENTER - | | | | | | LABORATORY | | + + + + + + | Glucose | 90 | 70 - 109 mg/dL | [facility] | | | | | | [facility] | | | | | | MEDICAL | | | | | | CENTER - | | | | | | LABORATORY | | + + + + + + | BUN | 6 (L) | 7 - 18 mg/dL | [facility] | | | | | | [facility] | | | | | | MEDICAL | | | | | | CENTER - | | | | | | LABORATORY | | + + + + + + | Creatinine | 1.14 | 0.60 - 1.30 | [facility] | | | | | mg/dL | [facility] | | | | | | MEDICAL | | | | | | CENTER - | | | | | | LABORATORY | | + + + + + + | eGFR, | 52 (L)Comment: | >=60 | [facility] | | | non- | GLOMERULAR FILTRATION | mL/min/1.73m2 | [facility] | | | [place] | RATE,ESTIMATED | | MEDICAL | | | | mL/min/1.52j8Ywoc than | | CENTER - | | | | 60 Chronic kidney | | LABORATORY | | | | disease,if found over a | | | | | | 3-month period.Less than | | | | | | 15 Kidney failureFor | | | | | | | | | | | | Americans,multiply the | | | | | | calculated GFR by 1.21. | | | | | | | | | | + + + + + + | Calcium | 7.9 (L) | 8.3 - 10.5 | [facility] | | | | | mg/dL | [facility] | | | | | | MEDICAL | | | | | | CENTER - | | | | | | LABORATORY | | + + + + + + | BUN/Creatin | 5.3 | | [facility] | | | ine Ratio | | | [facility] | | | | | | MEDICAL | | | | | | CENTER - | | | | | | LABORATORY | | + + + + + + + + | Specimen | + + | Blood | + + + + + + + | Performing | Address | City/State/Zipcode | Phone Number | | Organization | | | | + + + + + | [facility] | [address] | [place] | [phone] | | [facility] | | [address] | | | - LABORATORY | | | | + + + + + Troponin I (04/24/2018 6:03 PM PST) + + + + + + | Component | Value | Ref Range | Performed | Pathologist | | | | | At | Signature | + + + + + + | Troponin I | <0.01Comment: Reference | <0.06 ng/mL | [facility] | | | | Ranges:0.00-0.06 = | | [facility] | | | | NORMAL>0.06 = | | MEDICAL | | | | SUSPICIOUS FOR | | CENTER - | | | | MYOCARDIAL DAMAGE NOTE: | | LABORATORY | | | | Values greater than 0.50 | | | | | | ng/mL have been shown | | | | | | to be strongly | | | | | | associated with acute | | | | | | myocardial infarction. | | | | | | The [place] [employer] of | | | | | | Cardiology (ACC) | | | | | | recommends a decision | | | | | | limit of 0.06 ng/mL for | | | | | | this assay. Results | | | | | | greater than 0.06 can | | | | | | reflect a pre-infarct | | | | | | acute coronary syndrome, | | | | | | but can also reflect | | | | | | myocardial necrosis or | | | | | | injury that is not due | | | | | | to coronary artery | | | | | | disease. Some of these | | | | | | causes are sepsis, | | | | | | hypocolemia, atrial | | | | | | fibrillation, heart | | | | | | failure, pulmonary | | | | | | embolism, myocarditis, | | | | | | myocardial contusion, | | | | | | and renal failure. The | | | | | | diagnosis of myocardial | | | | | | infarction should be | | | | | | based on a combination | | | | | | of the patient's | | | | | | clinical presentation | | | | | | and the clinical | | | | | | laboratory test results | | | | | | (especially serial | | | | | | troponin levels). | | | | + + + + + + + + | Specimen | + + | Blood | + + + + + + + | Performing | Address | City/State/Zipcode | Phone Number | | Organization | | | | + + + + + | [facility] | [address] | [place] | [phone] | | [facility] | | [address] | | | - LABORATORY | | | | + + + + + B Type Natriuretic Peptide (04/24/2018 12:17 PM PST) + +---------+ + + + | Component | Value | Ref Range | Performed | Pathologist | | | | | At | Signature | + +---------+ + + + | BNP | 498 (H) | <100 pg/mL | [facility] | | | [facility] | | | | | [facility] | | | | | | CENTER - | | | | | | LABORATORY | | + +---------+ + + + + + | Specimen | + + | Blood | + + + + + + + | Performing | Address | City/State/Zipcode | Phone Number | | Organization | | | | + + + + + | [facility] | [address] | [place] | [phone] | | [facility] | | [address] | | | - LABORATORY | | | | + + + + + Magnesium (04/24/2018 12:17 PM PST) + +-------+ + + + | Component | Value | Ref Range | Performed | Pathologist | | | | | At | Signature | + +-------+ + + + | Magnesium | 1.9 | 1.8 - 2.5 mg/dL | [facility] | | | | | [facility] | | | | | | MEDICAL | | | | | | CENTER - | | | | | | LABORATORY | | + +-------+ + + + + + | Specimen | + + | Blood | + + + + + + + | Performing | Address | City/State/Zipcode | Phone Number | | Organization | | | | + + + + + | [facility] | [address] | [place] | [phone] | | [facility] | | [address] | | | - LABORATORY | | | | + + + + + Basic Metabolic Panel (04/24/2018 12:17 PM PST) + + + + + + | Component | Value | Ref Range | Performed | Pathologist | | | | | At | Signature | + + + + + + | Na | 138 | 136 - 149 | [facility] | | | | | mmol/L | [facility] | | | | | | MEDICAL | | | | | | CENTER - | | | | | | LABORATORY | | + + + + + + | K | 3.0 (L) | 3.5 - 5.1 | [facility] | | | | | mmol/L | [facility] | | | | | | MEDICAL | | | | | | CENTER - | | | | | | LABORATORY | | + + + + + + | Cl | 105 | 98 - 109 mmol/L | [facility] | | | | | | [facility] | | | | | | MEDICAL | | | | | | CENTER - | | | | | | LABORATORY | | + + + + + + | CO2 | 24 | 24 - 31 mmol/L | [facility] | | | | | | [facility] | | | | | | MEDICAL | | | | | | CENTER - | | | | | | LABORATORY | | + + + + + + | Anion Gap | 9 | 3 - 16 mmol/L | [facility] | | | | | | [facility] | | | | | | MEDICAL | | | | | | CENTER - | | | | | | LABORATORY | | + + + + + + | Glucose | 119 (H) | 70 - 109 mg/dL | [facility] | | | | | | [facility] | | | | | | MEDICAL | | | | | | CENTER - | | | | | | LABORATORY | | + + + + + + | BUN | 6 (L) | 7 - 18 mg/dL | [facility] | | | | | | [facility] | | | | | | MEDICAL | | | | | | CENTER - | | | | | | LABORATORY | | + + + + + + | Creatinine | 1.02 | 0.60 - 1.30 | [facility] | | | | | mg/dL | [facility] | | | | | | MEDICAL | | | | | | CENTER - | | | | | | LABORATORY | | + + + + + + | eGFR, | 59 (L)Comment: | >=60 | [facility] | | | non- | GLOMERULAR FILTRATION | mL/min/1.73m2 | [facility] | | | [place] | RATE,ESTIMATED | | MEDICAL | | | | mL/min/1.59g2Ltxf than | | CENTER - | | | | 60 Chronic kidney | | LABORATORY | | | | disease,if found over a | | | | | | 3-month period.Less than | | | | | | 15 Kidney failureFor | | | | | | | | | | | | Americans,multiply the | | | | | | calculated GFR by 1.21. | | | | | | | | | | + + + + + + | Calcium | 8.0 (L) | 8.3 - 10.5 | [facility] | | | | | mg/dL | [facility] | | | | | | MEDICAL | | | | | | CENTER - | | | | | | LABORATORY | | + + + + + + | BUN/Creatin | 5.9 | | [facility] | | | ine Ratio | | | [facility] | | | | | | MEDICAL | | | | | | CENTER - | | | | | | LABORATORY | | + + + + + + + + | Specimen | + + | Blood | + + + + + + + | Performing | Address | City/State/Zipcode | Phone Number | | Organization | | | | + + + + + | [facility] | [address] | [place] | [phone] | | [facility] | | [address] | | | - LABORATORY | | | | + + + + + Troponin I (04/24/2018 12:17 PM PST) + + + + + + | Component | Value | Ref Range | Performed | Pathologist | | | | | At | Signature | + + + + + + | Troponin I | <0.01Comment: Reference | <0.06 ng/mL | [facility] | | | | Ranges:0.00-0.06 = | | [facility] | | | | NORMAL>0.06 = | | MEDICAL | | | | SUSPICIOUS FOR | | CENTER - | | | | MYOCARDIAL DAMAGE NOTE: | | LABORATORY | | | | Values greater than 0.50 | | | | | | ng/mL have been shown | | | | | | to be strongly | | | | | | associated with acute | | | | | | myocardial infarction. | | | | | | The [place] [employer] of | | | | | | Cardiology (ACC) | | | | | | recommends a decision | | | | | | limit of 0.06 ng/mL for | | | | | | this assay. Results | | | | | | greater than 0.06 can | | | | | | reflect a pre-infarct | | | | | | acute coronary syndrome, | | | | | | but can also reflect | | | | | | myocardial necrosis or | | | | | | injury that is not due | | | | | | to coronary artery | | | | | | disease. Some of these | | | | | | causes are sepsis, | | | | | | hypocolemia, atrial | | | | | | fibrillation, heart | | | | | | failure, pulmonary | | | | | | embolism, myocarditis, | | | | | | myocardial contusion, | | | | | | and renal failure. The | | | | | | diagnosis of myocardial | | | | | | infarction should be | | | | | | based on a combination | | | | | | of the patient's | | | | | | clinical presentation | | | | | | and the clinical | | | | | | laboratory test results | | | | | | (especially serial | | | | | | troponin levels). | | | | + + + + + + + + | Specimen | + + | Blood | + + + + + + + | Performing | Address | City/State[facility] | Phone Number | | Organization | | | | + + + + + | [facility] | [address] | [place] | [phone] | | [facility] | | [address] | | | - LABORATORY | | | | + + + + + Troponin I (04/24/2018 8:52 AM PST) + + + + + + | Component | Value | Ref Range | Performed | Pathologist | | | | | At | Signature | + + + + + + | Troponin I | <0.01Comment: Reference | <0.06 ng/mL | [facility] | | | | Ranges:0.00-0.06 = | | [facility] | | | | NORMAL>0.06 = | | MEDICAL | | | | SUSPICIOUS FOR | | CENTER - | | | | MYOCARDIAL DAMAGE NOTE: | | LABORATORY | | | | Values greater than 0.50 | | | | | | ng/mL have been shown | | | | | | to be strongly | | | | | | associated with acute | | | | | | myocardial infarction. | | | | | | The [place] [employer] | | | | | | Cardiology (ACC) | | | | | | recommends a decision | | | | | | limit of 0.06 ng/mL for | | | | | | this assay. Results | | | | | | greater than 0.06 can | | | | | | reflect a pre-infarct | | | | | | acute coronary syndrome, | | | | | | but can also reflect | | | | | | myocardial necrosis or | | | | | | injury that is not due | | | | | | to coronary artery | | | | | | disease. Some of these | | | | | | causes are sepsis, | | | | | | hypocolemia, atrial | | | | | | fibrillation, heart | | | | | | failure, pulmonary | | | | | | embolism, myocarditis, | | | | | | myocardial contusion, | | | | | | and renal failure. The | | | | | | diagnosis of myocardial | | | | | | infarction should be | | | | | | based on a combination | | | | | | of the patient's | | | | | | clinical presentation | | | | | | and the clinical | | | | | | laboratory test results | | | | | | (especially serial | | | | | | troponin levels). | | | | + + + + + + + + | Specimen | + + | Blood | + + + + + + + | Performing | Address | City/State/Zipcode | Phone Number | | Organization | | | | + + + + + | [facility] | [address] | [place] | [phone] | | [facility] | | [address] | | | - LABORATORY | | | | + + + + + ECG 12 lead (04/24/2018 7:57 AM PST) + + + + + + | Component | Value | Ref Range | Performed | Pathologist | | | | | At | Signature | + + + + + + | VENTRICULAR | 80 | BPM | [facility] | | | RATE EKG | | | | | + + + + + + | ATRIAL RATE | 80 | BPM | [facility] | | + + + + + + | P-R | 184 | ms | [facility] | | | INTERVAL | | | | | + + + + + + | QRS | 98 | ms | [facility] | | | DURATION | | | | | + + + + + + | Q-T | 508 | ms | [facility] | | | INTERVAL | | | | | + + + + + + | Q-T | 585 | ms | [facility] | | | INTERVAL | | | | | | (CORRECTED) | | | | | + + + + + + | P WAVE AXIS | 20 | degrees | [facility] | | + + + + + + | QRS AXIS | 25 | degrees | [facility] | | + + + + + + | T AXIS | 39 | degrees | [facility] | | + + + + + + | INTERPRETAT | Normal sinus rhythmLow | | [facility] | | | ION TEXT | voltage QRSLong | | | | | | QTcCannot rule out | | | | | | Anterolateral infarct | | | | | | (cited on or before | | | | | | 23-APR-2018)Diffuse | | | | | | Nonspecific T wave | | | | | | abnormalityAbnormal | | | | | | ECGWhen compared with | | | | | | ECG of 23-APR-2018 | | | | | | 12:51,Criteria for | | | | | | Anterolateral infarct is | | | | | | now presentConfirmed by | | | | | | EREN NICOLE MD ([id number]) | | | | | | on 04/25/2018 8:53:25 AM | | | | | | | | | | + + + + + + + + | Specimen | + + | | + + + + + | Narrative | Performed At | + + + | | | + + + + +---------+ + + | Performing | Address | City/State/Zipcode | Phone Number | | Organization | | | | + +---------+ + + | [facility] | | | | + +---------+ + + Magnesium (04/24/2018 5:45 AM PST) + +---------+ + + + | Component | Value | Ref Range | Performed | Pathologist | | | | | At | Signature | + +---------+ + + + | Magnesium | 1.5 (L) | 1.8 - 2.5 mg/dL | [facility] | | | | | | [facility] | | | | | | MEDICAL | | | | | | CENTER - | | | | | | LABORATORY | | + +---------+ + + + + + | Specimen | + + | Blood | + + + + + + + | Performing | Address | City/State/Zipcode | Phone Number | | Organization | | | | + + + + + | [facility] | [address] | [place] | [phone] | | [facility] | | [address] | | | - LABORATORY | | | | + + + + + CBC no Differential (04/24/2018 5:45 AM PST) + + + + + + | Component | Value | Ref Range | Performed | Pathologist | | | | | At | Signature | + + + + + + | White Blood | 8.5 | 4.0 - 11.0 K/uL | [facility] | | | Cells | | | [facility] | | | | | | MEDICAL | | | | | | CENTER - | | | | | | LABORATORY | | + + + + + + | Red Blood | 3.03 (L) | 3.70 - 5.20 | [facility] | | | Cells | | M/uL | [facility] | | | | | | [facility]ICAL | | | | | | CENTER - | | | | | | LABORATORY | | + + + + + + | Hemoglobin | 8.2 (L) | 11.5 - 16.0 | [facility] | | | | | g/dL | [facility] | | | | | | [facility] | | | | | | CENTER - | | | | | | LABORATORY | | + + + + + + | Hematocrit | 25.4 (L) | 34.0 - 47.0 % | [facility] | | | | | | [facility] | | | | | | [facility] | | | | | | [facility] - | | | | | | LABORATORY | | + + + + + + | MCV | 83.8 | 83.0 - 101.0 fL | [facility] | | | | | | [facility] | | | | | | [facility] | | | | | | [facility] - | | | | | | LABORATORY | | + + + + + + | MCH | 27.1 (L) | 28.0 - 35.0 pg | [facility] | | | | | | [facility] | | | | | | [facility] | | | | | | [facility] - | | | | | | LABORATORY | | + + + + + + | MCHC | 32.3 | 32.0 - 36.0 | [facility] | | | | | g/dL | [facility] | | | | | | [facility] | | | | | | CENTER - | | | | | | LABORATORY | | + + + + + + | RDW-CV | 20.8 (H) | <15.0 % | [facility] | | | | | | [facility] | | | | | | [facility] | | | | | | [facility] - | | | | | | LABORATORY | | + + + + + + | RDW-SD | 63.7 (H) | 35.1 - 46.3 fL | [facility] | | | | | | [facility] | | | | | | [facility] | | | | | | [facility] - | | | | | | LABORATORY | | + + + + + + | Platelet | 112 (L) | 140 - 440 K/uL | [facility] | | | Count | | | [facility] | | | | | | [facility] | | | | | | [facility] - | | | | | | LABORATORY | | + + + + + + | MPV | 9.6 | 6.5 - 12.4 fL | [facility] | | | | | [facility] | [facility] | | | | | | [facility] - | | | | | | LABORATORY | | + + + + + + | % nRBC | 0 | 0 - 2 per 100 | [facility] | | | | | WBC's | [facility] | | | | | | [facility] | | | | | | [facility] - | | | | | | LABORATORY | | + + + + + + | Absolute | 0.00 | 0.00 - 0.01 | [facility] | | | nRBC | | K/uL | [facility] | | | | | | [facility] | | | | | | C[facility] - | | | | | | LABORATORY | | + + + + + + + + | Specimen | + + | Blood | + + + + + + + | Performing | Address | City/State/Zipcode | Phone Number | | Organization | | | | + + + + + | [facility] | [address] | [place] | [phone] | | [facility] | | [id number] | | | - LABORATORY | | | | + + + + + Basic Metabolic Panel (04/24/2018 5:45 AM PST) + + + + + + | Component | Value | Ref Range | Performed | Pathologist | | | | | At | Signature | + + + + + + | Na | 137 | 136 - 149 | [facility] | | | | | mmol/L | [facility] | | | | | [facility] | | | | | | CENTER - | | | | | | LABORATORY | | + + + + + + | K | 2.8 (L) | 3.5 - 5.1 | [facility] | | | | | mmol/L | [facility] | | | | | | [facility] | | | | | | CENTER - | | | | | | LABORATORY | | + + + + + + | Cl | 106 | 98 - 109 mmol/L | [facility] | | | | | | [facility] | | | | | | [facility] | | | | | | CENTER - | | | | | | LABORATORY | | + + + + + + | CO2 | 23 (L) | 24 - 31 mmol/L | [facility] | | | | | | [facility] | | | | | | [facility] | | | | | | [facility]ENTER - | | | | | | LABORATORY | | + + + + + + | Anion Gap | 8 | 3 - 16 mmol/L | [facility] | | | | | | [facility] | | | | | | [facility] | | | | | | C[facility] - | | | | | | LABORATORY | | + + + + + + | Glucose | 92 | 70 - 109 mg/dL | [facility] | | | | | | [facility] | | | | | | MEDICAL | | | | | | CENTER - | | | | | | LABORATORY | | + + + + + + | BUN | 5 (L) | 7 - 18 mg/dL | [place] | | | | | | [facility] | | | | | | MEDICAL | | | | | | CENTER - | | | | | | LABORATORY | | + + + + + + | Creatinine | 0.96 | 0.60 - 1.30 | [facility] | | | | | mg/dL | [facility] | | | | | | MEDICAL | | | | | | CENTER - | | | | | | LABORATORY | | + + + + + + | eGFR, | >60Comment: GLOMERULAR | >=60 | [facility] | | | non- | FILTRATION | mL/min/1.73m2 | [facility] | | | [place] | RATE,ESTIMATED | | MEDICAL | | | | mL/min/1.54q3Rjtc than | | CENTER - | | | | 60 Chronic kidney | | LABORATORY | | | | disease,if found over a | | | | | | 3-month period.Less than | | | | | | 15 Kidney failureFor | | | | | | | | | | | | Americans,multiply the | | | | | | calculated GFR by 1.21. | | | | | | | | | | + + + + + + | Calcium | 8.0 (L) | 8.3 - 10.5 | [facility] | | | | | mg/dL | [facility] | | | | | | MEDICAL | | | | | | CENTER - | | | | | | LABORATORY | | + + + + + + | BUN/Creatin | 5.2 | | [facility] | | | ine Ratio | | | [facility] | | | | | | MEDICAL | | | | | | CENTER - | | | | | | LABORATORY | | + + + + + + + + | Specimen | + + | Blood | + + + + + + + | Performing | Address | City/State/Zipcode | Phone Number | | Organization | | | | + + + + + | [facility] | [address] | [place], [place] | [phone] | | [facility] | | [address] | | | - LABORATORY | | | | + + + + + XR Chest AP Portable (04/23/2018 2:21 PM PST) + + | Specimen | + + | | + + + + + | Narrative | Performed At | + + + | CLINICAL INFORMATION: ABDOMINAL PAIN. COMPARISON: None | [facility] | | available. FINDINGS: Portable frontal chest radiograph. | | | Lordotic positioning noted. Lungs: No focal airspace disease, | | | pleural effusion, or pneumothorax. Mild prominence of the central | | | pulmonary vasculature and interstitial lung markings. Nonspecific | | | mild right lateral pleural thickening. Heart/mediastinum: Mild | | | cardiomegaly. No tracheal deviation. Bones: No acute osseous | | | abnormality appreciated. Mild dextrocurvature of the spine. | | | IMPRESSION - Findings are suggestive of mild cardiogenic pulmonary | | | edema. Nonspecific mild right lateral pleural thickening. | | | Dictated and Signed by: Juan Antonio Armijo MD Electronically signed: | | | 04/23/2018 5:47 PM | | + + + + + | Procedure Note | + + | Candace, Rad Results In - 04/23/2018 5:50 PM PST | | CLINICAL INFORMATION: ABDOMINAL PAIN. | | | | COMPARISON: None available. | | | | FINDINGS: | | Portable frontal chest radiograph. Lordotic positioning noted. | | | | Lungs: No focal airspace disease, pleural effusion, or pneumothorax. Mild | | prominence of the central pulmonary vasculature and interstitial lung markings. | | Nonspecific mild right lateral pleural thickening. | | | | Heart/mediastinum: Mild cardiomegaly. No tracheal deviation. | | | | Bones: No acute osseous abnormality appreciated. Mild dextrocurvature of the | | spine. | | | | IMPRESSION - | | Findings are suggestive of mild cardiogenic pulmonary edema. | | | | Nonspecific mild right lateral pleural thickening. | | | | Dictated and Signed by: Juan Antonio Armijo MD | | Electronically signed: 04/23/2018 5:47 PM | + + + +---------+ + + | Performing | Address | City/State/Zipcode | Phone Number | | Organization | | | | + +---------+ + + | [facility] | | | | + +---------+ + + CT Abdomen Pelvis wo Contrast (04/23/2018 1:16 PM PST) + + | Specimen | + + | | + + + + + | Narrative | Performed At | + + + | CT ABDOMEN PELVIS WO CONTRAST 04/23/2018 1:01 PM HISTORY: | [facility] | | ABDOMINAL PAIN. COMPARISON: None. PROTOCOL: Axial images of | | | the abdomen and pelvis were obtained. Coronal and sagittal | | | reformations were acquired. FINDINGS: LUNG BASE: Mild | | | atelectasis and/or minimal patchy groundglass consolidation in the | | | right lung base. Heart is enlarged. 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 | | | HEPATOBILIARY: Diffusely nodular contour of the liver compatible with | | | cirrhosis. No contour deforming mass identified in this noncontrast | | | CT. A few gallstones are identified within the neck/proximal cystic | | | duct of the gallbladder. No evidence of biliary ductal dilatation. | | | PANCREASE: Normal parenchyma. No evidence of pancreatic ductal | | | dilation. SPLEEN: Normal parenchyma. No evidence of mass or | | | splenomegaly. ADRENAL GLANDS: No evidence of nodule, mass or | | | suspicious thickening. KIDNEYS: Bilateral kidneys are without | | | evidence of suspicious mass, calculus, or hydronephrosis. BLADDER: | | | Unremarkable. REPRODUCTIVE: Uterus and adnexal structures are without | | | evidence of gross abnormality. VASCULATURE: Pronounced | | | perigastric, perisplenic, and developing periesophageal varices are | | | present. LYMPH NODES: Borderline prominence of bilateral superficial | | | lymph nodes. No other convincingly suspicious lymphadenopathy | | | identified. This is somewhat difficult to evaluate without the use of | | | intravenous contrast. BOWEL: The stomach is normal. Imaged small | | | bowel and colon demonstrate no acute findings. No evidence of | | | dilatation to suggest obstruction or abnormal bowel wall thickening. | | | PERITONEUM: Trace free fluid in the dependent pelvis SOFT TISSUES: | | | Pronounced truncal subcutaneous fat stranding/anasarca. Periumbilical | | | varices are seen with prominence of the inferior epigastric | | | vasculature. BONES: There are no acute osseous abnormalities. | | | Nonspecific sclerotic focus in the right femoral neck likely | | | represents a bone island but other etiologies not entirely excluded. | | | Multilevel degenerative disc disease and facet spondylosis of the | | | thoracolumbar spine. DISH of the lower thoracic spine. IMPRESSION | | | - 1. Cirrhosis with sequelae of portal hypertension including | | | extensive. Splenic and perigastric portosystemic collaterals. Mild | | | early ascites. 2. 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 | | | Recommend cardiology consultation if clinically indicated. 3. | | | Cholelithiasis with a few small calcified gallstone seen within the | | | neck the gallbladder or proximal cystic duct. 4. Diffuse fat | | | stranding throughout the abdominal/truncal soft tissues most | | | compatible with edema/anasarca versus cellulitis. Dictated and | | | Signed by: Jamie Yeung MD Electronically signed: 04/23/2018 1:42 | | | PM | | + + + + + | Procedure Note | + + | Candace, Rad Results In - 04/23/2018 1:[address] ABDOMEN PELVIS WO CONTRAST 04/23/2018 | | 1:01 PMHISTORY: ABDOMINAL PAIN.COMPARISON: None.PROTOCOL: Axial images of the abdomen | | and pelvis were obtained. Coronal andsagittal reformations were acquired.FINDINGS:LUNG | | BASE: Mild atelectasis and/or minimal patchy groundglass consolidation inthe right lung | | base. Heart is enlarged. There appears to be a partiallycalcified left ventricular | | pseudoaneurysm versus true aneurysm.HEPATOBILIARY: Diffusely nodular contour of the | | liver compatible with cirrhosis.No contour deforming mass identified in this noncontrast | | CT. A few gallstonesare identified within the neck/proximal cystic duct of the | | gallbladder. Noevidence of biliary ductal dilatation.PANCREASE: Normal parenchyma. No | | evidence of pancreatic ductal dilation.SPLEEN: Normal parenchyma. No evidence of mass or | | splenomegaly.ADRENAL GLANDS: No evidence of nodule, mass or suspicious | | thickening.KIDNEYS: Bilateral kidneys are without evidence of suspicious mass, calculus, | | orhydronephrosis.BLADDER: Unremarkable.REPRODUCTIVE: Uterus and adnexal structures are | | without evidence of grossabnormality. VASCULATURE: Pronounced perigastric, perisplenic, | | and developing periesophagealvarices are present.LYMPH NODES: Borderline prominence of | | bilateral superficial lymph nodes. Noother convincingly suspicious lymphadenopathy | | identified. This is somewhatdifficult to evaluate without the use of intravenous | | contrast. BOWEL: The stomach is normal. Imaged small bowel and colon demonstrate no | | acutefindings. No evidence of dilatation to suggest obstruction or abnormal bowelwall | | thickening.PERITONEUM: Trace free fluid in the dependent pelvisSOFT TISSUES: Pronounced | | truncal subcutaneous fat stranding/anasarca.Periumbilical varices are seen with | | prominence of the inferior epigastricvasculature. BONES: There are no acute osseous | | abnormalities. Nonspecific sclerotic focus inthe right femoral neck likely represents a | | bone island but other etiologies notentirely excluded. Multilevel degenerative disc | | disease and facet spondylosis ofthe thoracolumbar spine. DISH of the lower thoracic | | spine.IMPRESSION -1. Cirrhosis with sequelae of portal hypertension including extensive. | | Splenicand perigastric portosystemic collaterals. Mild early ascites.2. Cardiomegaly | | with what appears to be a partially calcified true aneurysmversus pseudoaneurysm of the | | left ventricle. Recommend cardiology consultationif clinically indicated.3. | | Cholelithiasis with a few small calcified gallstone seen within the neck thegallbladder | | or proximal cystic duct.4. Diffuse fat stranding throughout the abdominal/truncal soft | | tissues mostcompatible with edema/anasarca versus cellulitis.Dictated and Signed by: | | Jamie Yeung MD Electronically signed: 04/23/2018 1:42 PM | |wall thickening. | |PERITONEUM: Trace free fluid in the dependent pelvis | |SOFT TISSUES: Pronounced truncal subcutaneous fat stranding/anasarca. | |Periumbilical varices are seen with prominence of the inferior epigastric | |vasculature. | |BONES: There are no acute osseous abnormalities. Nonspecific sclerotic focus in | |the right femoral neck likely represents a bone island but other etiologies not | |entirely excluded. Multilevel degenerative disc disease and facet spondylosis of | |the thoracolumbar spine. DISH of the lower thoracic spine. | | | |IMPRESSION - | |1. Cirrhosis with sequelae of portal hypertension including extensive. Splenic | |and perigastric portosystemic collaterals. Mild early ascites. | |2. Cardiomegaly with what appears to be a partially calcified true aneurysm | |versus pseudoaneurysm of the left ventricle. Recommend cardiology consultation | |if clinically indicated. | |3. Cholelithiasis with a few small calcified gallstone seen within the neck the | |gallbladder or proximal cystic duct. | |4. Diffuse fat stranding throughout the abdominal/truncal soft tissues most | |compatible with edema/anasarca versus cellulitis. | | | |Dictated and Signed by: Jamie Yeung MD | | Electronically signed: 04/23/2018 1:42 PM | + + + +---------+ + + | Performing | Address | City/State/Zipcode | Phone Number | | Organization | | | | + +---------+ + + | [facility] | | | | + +---------+ + + Ethanol (04/23/2018 1:12 PM PST) + +-------+ + + + | Component | Value | Ref Range | Performed | Pathologist | | | | | At | Signature | + +-------+ + + + | ALCOHOL, | <5 | <400 mg/dL | [facility] | | | SERUM/PLASM | | | [facility] | | | A | | | MEDICAL | | | | | | CENTER - | | | | | | LABORATORY | | + +-------+ + + + + + | Specimen | + + | Blood | + + + + + + + | Performing | Address | City/State/Zipcode | Phone Number | | Organization | | | | + + + + + | [facility] | [address] | [place] | [phone] | | [facility] | | [address] | | | - LABORATORY | | | | + + + + + Lactic Acid (04/23/2018 1:12 PM PST) + +---------+ + + + | Component | Value | Ref Range | Performed | Pathologist | | | | | At | Signature | + +---------+ + + + | Lactate | 2.8 (H) | 0.5 - 2.2 | [facility] | | | | | mmol/L | [facility] | | | | | | MEDICAL | | | | | | CENTER - | | | | | | LABORATORY | | + +---------+ + + + + + | Specimen | + + | Blood | + + + + + + + | Performing | Address | City/State/Zipcode | Phone Number | | Organization | | | | + + + + + | [facility] | [address] | [place] | [phone] | | [facility] | | [address] | | | - LABORATORY | | | | + + + + + Ammonia (04/23/2018 1:12 PM PST) + +--------+ + + + | Component | Value | Ref Range | Performed | Pathologist | | | | | At | Signature | + +--------+ + + + | Ammonia | 44 (H) | 11 - 35 umol/L | [facility] | | [facility] | | | | | | [facility]ICAL | | | | | | CENTER - | | | | | | LABORATORY | | + +--------+ + + + + + | Specimen | + + | Blood | + + + + + + + | Performing | Address | City/State/Zipcode | Phone Number | | Organization | | | | + + + + + | [facility] | [address] | [place] | [phone] | | [facility] | | [address] | | | - LABORATORY | | | | + + + + + B Type Natriuretic Peptide (04/23/2018 1:12 PM PST) + +---------+ + + + | Component | Value | Ref Range | Performed | Pathologist | | | | | At | Signature | + +---------+ + + + | BNP | 340 (H) | <100 pg/mL | [facility] | | | | | | [facility] | | | | | | MEDICAL | | | | | | CENTER - | | | | | | LABORATORY | | + +---------+ + + + + + | Specimen | + + | Blood | + + + + + + + | Performing | Address | City/State/Zipcode | Phone Number | | Organization | | | | + + + + + | [facility] | [address] | [place] | [phone] | | [facility] | | [address] | | | - LABORATORY | | | | + + + + + Protime INR (04/23/2018 1:12 PM PST) + + + + + + | Component | Value | Ref Range | Performed | Pathologist | | | | | At | Signature | + + + + + + | Prothrombin | 17.2 (H) | 11.3 - 13.9 | [facility] | | | Time | | seconds | [facility] | | | | | | MEDICAL | | | | | | CENTER - | | | | | | LABORATORY | | + + + + + + | INR | 1.4 (H)Comment: Usual | 0.9 - 1.1 | [facility] | | | | Oral Anticoagulation | | [facility] | | | | Range: 2.0 - | | MEDICAL | | | | 3.0High Level Oral | | CENTER - | | | | Anticoagulation Range: | | LABORATORY | | | | 2.5 - 3.5 | | | | + + + + + + + + | Specimen | + + | Blood | + + + + + + + | Performing | Address | City/State/Zipcode | Phone Number | | Organization | | | | + + + + + | [facility] | [address] | [place] | [phone] | | [facility] | | [address] | | | - LABORATORY | | | | + + + + + Troponin I (04/23/2018 1:12 PM PST) + + + + + + | Component | Value | Ref Range | Performed | Pathologist | | | | | At | Signature | + + + + + + | Troponin I | <0.01Comment: Reference | <0.06 ng/mL | [facility] | | | | Ranges:0.00-0.06 = | | [facility] | | | | NORMAL>0.06 = | | MEDICAL | | | | SUSPICIOUS FOR | | CENTER - | | | | MYOCARDIAL DAMAGE NOTE: | | LABORATORY | | | | Values greater than 0.50 | | | | | | ng/mL have been shown | | | | | | to be strongly | | | | | | associated with acute | | | | | | myocardial infarction. | | | | | | The [place] [employer] | | | | | | Cardiology (ACC) | | | | | | recommends a decision | | | | | | limit of 0.06 ng/mL for | | | | | | this assay. Results | | | | | | greater than 0.06 can | | | | | | reflect a pre-infarct | | | | | | acute coronary syndrome, | | | | | | but can also reflect | | | | | | myocardial necrosis or | | | | | | injury that is not due | | | | | | to coronary artery | | | | | | disease. Some of these | | | | | | causes are sepsis, | | | | | | hypocolemia, atrial | | | | | | fibrillation, heart | | | | | | failure, pulmonary | | | | | | embolism, myocarditis, | | | | | | myocardial contusion, | | | | | | and renal failure. The | | | | | | diagnosis of myocardial | | | | | | infarction should be | | | | | | based on a combination | | | | | | of the patient's | | | | | | clinical presentation | | | | | | and the clinical | | | | | | laboratory test results | | | | | | (especially serial | | | | | | troponin levels). | | | | + + + + + + + + | Specimen | + + | Blood | + + + + + + + | Performing | Address | City/State/Zipcode | Phone Number | | Organization | | | | + + + + + | [facility] | [address] | [place] | [phone] | | [facility] | | [address] | | | - LABORATORY | | | | + + + + + Comprehensive Metabolic Panel (04/23/2018 1:12 PM PST) + + + + + + | Component | Value | Ref Range | Performed | Pathologist | | | | | At | Signature | + + + + + + | Na | 138 | 136 - 149 | [facility] | | | | | mmol/L | [facility] | | | | | | MEDICAL | | | | | | CENTER - | | | | | | LABORATORY | | + + + + + + | K | 3.2 (L) | 3.5 - 5.1 | [facility] | | | | | mmol/L | [facility] | | | | | | MEDICAL | | | | | | CENTER - | | | | | | LABORATORY | | + + + + + + | Cl | 106 | 98 - 109 mmol/L | [facility] | | | | | | [facility] | | | | | | MEDICAL | | | | | | CENTER - | | | | | | LABORATORY | | + + + + + + | CO2 | 21 (L) | 24 - 31 mmol/L | [facility] | | | | | | [facility] | | | | | | MEDICAL | | | | | | CENTER - | | | | | | LABORATORY | | + + + + + + | Anion Gap | 11 | 3 - 16 mmol/L | [facility] | | | | | | [facility] | | | | | | MEDICAL | | | | | | CENTER - | | | | | | LABORATORY | | + + + + + + | Glucose | 99 | 70 - 109 mg/dL | [facility] | | | | | | [facility] | | | | | | [facility] | | | | | | CENTER - | | | | | | LABORATORY | | + + + + + + | BUN | 6 (L) | 7 - 18 mg/dL | [facility] | | | | | | [facility] | | | | | | [facility] | | | | | | CENTER - | | | | | | LABORATORY | | + + + + + + | Creatinine | 1.12 | 0.60 - 1.30 | [facility] | | | | | mg/dL | [facility] | | | | | | MEDICAL | | | | | | CENTER - | | | | | | LABORATORY | | + + + + + + | eGFR, | 53 (L)Comment: | >=60 | [facility] | | | non- | GLOMERULAR FILTRATION | mL/min/1.73m2 | [facility] | | | [place] | RATE,ESTIMATED | | MEDICAL | | | | mL/min/1.25i2Relt than | | CENTER - | | | | 60 Chronic kidney | | LABORATORY | | | | disease,if found over a | | | | | | 3-month period.Less than | | | | | | 15 Kidney failureFor | | | | | | | | | | | | Americans,multiply the | | | | | | calculated GFR by 1.21. | | | | | | | | | | + + + + + + | Calcium | 8.4 | 8.3 - 10.5 | [facility] | | | | | mg/dL | [facility] | | | | | | MEDICAL | | | | | | CENTER - | | | | | | LABORATORY | | + + + + + + | Albumin | 2.5 (L) | 3.2 - 5.0 g/dL | [facility] | | | | | | [facility] | | | | | | MEDICAL | | | | | | CENTER - | | | | | | LABORATORY | | + + + + + + | Bilirubin | 1.7 (H)Comment: This is | 0.1 - 1.5 mg/dL | [facility] | | | Total | an appended report. | | [facility] | | | | These results have been | | MEDICAL | | | | appended to a previously | | CENTER - | | | | preliminary verified | | LABORATORY | | | | report. | | | | + + + + + + | Total | 6.2 | 6.0 - 7.8 g/dL | [facility] | | | Protein | | | [facility] | | | | | | MEDICAL | | | | | | CENTER - | | | | | | LABORATORY | | + + + + + + | AST | 34Comment: This is an | 10 - 42 U/L | [facility] | | | | appended report. These | | [facility] | | | | results have been | | MEDICAL | | | | appended to a previously | | CENTER - | | | | preliminary verified | | LABORATORY | | | | report. | | | | + + + + + + | ALT | 15Comment: This is an | 6 - 45 U/L | [facility] | | | | appended report. These | | [facility] | | | | results have been | | MEDICAL | | | | appended to a previously | | CENTER - | | | | preliminary verified | | LABORATORY | | | | report. | | | | + + + + + + | Alkaline | 132 (H)Comment: This is | 40 - 110 U/L | [facility] | | | Phosphatase | an appended report. | | [facility] | | | | These results have been | | MEDICAL | | | | appended to a previously | | CENTER - | | | | preliminary verified | | LABORATORY | | | | report. | | | | + + + + + + | Globulin | 3.7 | 2.1 - 3.8 g/dL | [facility] | | | | | | [facility] | | | | | | MEDICAL | | | | | | CENTER - | | | | | | LABORATORY | | + + + + + + | Albumin/Ramandeep | 0.7 (L) | 0.8 - 2.0 | [facility] | | | bulin Ratio | | | [facility] | | | | | | MEDICAL | | | | | | CENTER - | | | | | | LABORATORY | | + + + + + + | BUN/Creatin | 5.4 | | [facility] | | | ine Ratio | | | [facility] | | | | | | MEDICAL | | | | | | CENTER - | | | | | | LABORATORY | | + + + + + + + + | Specimen | + + | Blood | + + + + + + + | Performing | Address | City/State/Zipcode | Phone Number | | Organization | | | | + + + + + | [facility] | [address] | [place] | [phone] | | [facility] | | [address] | | | - LABORATORY | | | | + + + + + CBC with Differential (04/23/2018 1:12 PM PST) + + + + + + | Component | Value | Ref Range | Performed | Pathologist | | | | | At | Signature | + + + + + + | White Blood | 9.6 | 4.0 - 11.0 K/uL | [facility] | | | Cells | | | [facility] | | | | | | MEDICAL | | | | | | CENTER - | | | | | | LABORATORY | | + + + + + + | Red Blood | 3.51 (L) | 3.70 - 5.20 | [facility] | | | Cells | | M/uL | [facility] | | | | | | MEDICAL | | | | | | CENTER - | | | | | | LABORATORY | | + + + + + + | Hemoglobin | 9.4 (L) | 11.5 - 16.0 | [facility] | | | | | g/dL | [facility] | | | | | | MEDICAL | | | | | | CENTER - | | | | | | LABORATORY | | + + + + + + | Hematocrit | 29.5 (L) | 34.0 - 47.0 % | [facility] | | | | | | [facility] | | | | | | MEDICAL | | | | | | CENTER - | | | | | | LABORATORY | | + + + + + + | MCV | 84.0 | 83.0 - 101.0 fL | [facility] | | | | | | [facility] | | | | | | MEDICAL | | | | | | CENTER - | | | | | | LABORATORY | | + + + + + + | MCH | 26.8 (L) | 28.0 - 35.0 pg | [facility] | | | | | | [facility] | | | | | | MEDICAL | | | | | | CENTER - | | | | | | LABORATORY | | + + + + + + | MCHC | 31.9 (L) | 32.0 - 36.0 | [facility] | | | | | g/dL | [facility] | | | | | | MEDICAL | | | | | | CENTER - | | | | | | LABORATORY | | + + + + + + | RDW-CV | 20.8 (H) | <15.0 % | [facility] | | | | | | [facility] | | | | | | MEDICAL | | | | | | CENTER - | | | | | | LABORATORY | | + + + + + + | RDW-SD | 64.4 (H) | 35.1 - 46.3 fL | [facility] | | | | | | [facility] | | | | | | MEDICAL | | | | | | CENTER - | | | | | | LABORATORY | | + + + + + + | Platelet | 141 | 140 - 440 K/uL | [facility] | | | Count | | | [facility] | | | | | | MEDICAL | | | | | | CENTER - | | | | | | LABORATORY | | + + + + + + | MPV | 9.1 | 6.5 - 12.4 fL | [facility] | | | | | | [facility] | | | | | | MEDICAL | | | | | | CENTER - | | | | | | LABORATORY | | + + + + + + | % | 54.8 | 45.0 - 82.0 % | [facility] | | | Neutrophils | | | [facility] | | | | | | MEDICAL | | | | | | CENTER - | | | | | | LABORATORY | | + + + + + + | % | 29.1 | 20.0 - 45.0 % | [facility] | | | Lymphocytes | | | [facility] | | | | | | MEDICAL | | | | | | CENTER - | | | | | | LABORATORY | | + + + + + + | % Monocytes | 9.2 | 4.0 - 12.0 % | [facility] | | | | | | [facility] | | | | | | MEDICAL | | | | | | CENTER - | | | | | | LABORATORY | | + + + + + + | % | 5.2 (H) | 0.0 - 5.0 % | [facility] | | | Eosinophils | | | [facility] | | | | | | MEDICAL | | | | | | CENTER - | | | | | | LABORATORY | | + + + + + + | % Basophils | 1.3 (H) | 0.0 - 1.0 % | [facility] | | | | | | [facility] | | | | | | MEDICAL | | | | | | CENTER - | | | | | | LABORATORY | | + + + + + + | % Immature | 0.4Comment: For | 0.0 - 0.4 % | [facility] | | | Granulocyte | patients, use the | | [facility] | | | s | special reference ranges | | MEDICAL | | | | listed below. | | CENTER - | | | | | | LABORATORY | | + + + + + + | Absolute | 5.26 | 1.80 - 8.50 | [facility] | | | Neutrophils | | K/uL | [facility] | | | | | | MEDICAL | | | | | | CENTER - | | | | | | LABORATORY | | + + + + + + | Absolute | 2.79 | 0.60 - 3.20 | [facility] | | | Lymphocytes | | K/uL | [facility] | | | | | | MEDICAL | | | | | | CENTER - | | | | | | LABORATORY | | + + + + + + | Absolute | 0.88 | 0.00 - 1.00 | [facility] | | | Monocytes | | K/uL | [facility] | | | | | | MEDICAL | | | | | | CENTER - | | | | | | LABORATORY | | + + + + + + | Absolute | 0.50 (H) | 0.00 - 0.40 | [facility] | | | Eosinophils | | K/uL | [facility] | | | | | | MEDICAL | | | | | | CENTER - | | | | | | LABORATORY | | + + + + + + | Absolute | 0.12 (H) | 0.00 - 0.10 | [facility] | | | Basophils | | K/uL | [facility] | | | | | | [facility] | | | | | | CENTER - | | | | | | LABORATORY | | + + + + + + | Absolute | 0.04 (H)Comment: For | 0.00 - 0.03 | [facility] | | | Immature | patients, use | K/uL | [facility] | | | Granulocyte | the special reference | | MEDICAL | | | s | ranges listed below. | | CENTER - | | | | | | LABORATORY | | + + + + + + | % nRBC | 0 | 0 - 2 per 100 | [facility] | | | | | WBC's | [facility] | | [facility] | [facility] - | | | | | | LABORATORY | | + + + + + + | Absolute | 0.00 | 0.00 - 0.01 | [facility] | | | nRBC | | K/uL | [facility] | | | | | | [facility] | | | | | | [facility] - | | | | | | LABORATORY | | + + + + + + + + | Specimen | + + | Blood | + + + + + | Narrative | Performed At | + + + | IMMATURE GRANULOCYTES - For patients, use the following | [facility] | | reference ranges: Trim. Absolute (K/uL) Percentage (%) | [facility] | | 1st 0.003-0.091 K/uL 0.0-0.9% 2nd 0.007-0.247 K/uL | [facility] | | 0.1-2.0% 3rd 0.018-0.456 K/uL 0.1-2.0% | - LABORATORY | + + + + + + + + | Performing | Address | City/State/Zipcode | Phone Number | | Organization | | | | + + + + + | [facility] | [address] | [place] | [phone] | | [facility] | | [address] | | | - LABORATORY | | | | + + + + + ECG 12 lead (04/23/2018 12:51 PM PST) + + + + + + | Component | Value | Ref Range | Performed | Pathologist | | | | | At | Signature | + + + + + + | VENTRICULAR | 85 | BPM | [facility] | | | RATE EKG | | | | | + + + + + + | ATRIAL RATE | 85 | BPM | [facility] | | + + + + + + | P-R | 172 | ms | [facility] | | | INTERVAL | | | | | + + + + + + | QRS | 84 | ms | [facility] | | | DURATION | | | | | + + + + + + | Q-T | 424 | ms | [facility] | | | INTERVAL | | | | | + + + + + + | Q-T | 504 | ms | [facility] | | | INTERVAL | | | | | | (CORRECTED) | | | | | + + + + + + | P WAVE AXIS | 70 | degrees | [facility] | | + + + + + + | QRS AXIS | 41 | degrees | [facility] | | + + + + + + | T AXIS | 35 | degrees | [facility] | | + + + + + + | INTERPRETAT | Poor data quality, | | [facility] | | | ION TEXT | interpretation may be | | | | | | adversely affectedNormal | | | | | | sinus rhythmLow voltage | | | | | | QRSLong QTcCannot rule | | | | | | out Anterior infarct , | | | | | | age undeterminedDiffuse | | | | | | Nonspecific T wave | | | | | | abnormalityAbnormal | | | | | | ECGNo previous ECGs | | | | | | availableConfirmed by | | | | | | EREN NICOLE MD ([id number]) | | | | | | on 04/24/2018 7:32:37 AM | | | | + + + + + + + + | Specimen | + + | | + + + + + | Narrative | Performed At | + + + | | | + + + + +---------+ + + | Performing | Address | City/State/Zipcode | Phone Number | | Organization | | | | + +---------+ + + | [facility] | | | | + +---------+ + + documented in this encounter Visit Diagnoses + + | Diagnosis | + + | Anasarca - Primary Edema | + + | Decompensated hepatic cirrhosis (HCC) | + + | Hypervolemia, unspecified hypervolemia type | + + | Acute systolic congestive heart failure (HCC) Acute systolic heart failure | + + | 3+ pitting edema | + + | Abdominal pain, chronic, epigastric Abdominal pain, epigastric | + + | Alcoholic cirrhosis of liver without ascites (HCC) Alcoholic cirrhosis of liver | + + | Chest pain, unspecified type | + + | Generalized abdominal pain Abdominal pain, generalized | + + | JOSE (acute kidney injury) (HCC) Acute kidney failure, unspecified | + + | Dizziness Dizziness and giddiness | + + | Coronary artery disease involving platinum coronary artery, angina presence unspecified, | | unspecified whether platinum or transplanted heart | + + | Thrombocytopenia (HCC) Thrombocytopenia, unspecified | + + | Anemia, unspecified type | + + | Morbid obesity (HCC) Morbid obesity | + + | Acute on chronic systolic (congestive) heart failure (HCC) | + + documented in this encounter Administered Medications + +--------+ +--------+------+------+ | Medication Order | MAR | Action | Dose | Rate | Site | | | Action | Date | | | | + +--------+ +--------+------+------+ | albuterol 2.5 mg/3 mL nebulizer | Given | 05/03/19 | 2.5 mg | | | | solution 2.5 mg 2.5 mg, | | 19 3:26 | | | | | Nebulization, EVERY 12 HOURS | | PM PST | | | | | INTERVAL, First dose on Sat | | | | | | | 04/24/18 at 0300, RT will | | | | | | | administer., | | | | | | + +--------+ +--------+------+------+ +-------+ +--------+---+---+ | Given | 05/03/19 | 2.5 mg | | | | | 19 3:51 | | | | | | AM PST | | | | +-------+ +--------+---+---+ | Given | 05/02/19 | 2.5 mg | | | | | 19 2:08 | | | | | | PM PST | | | | +-------+ +--------+---+---+ +---+---+ | | | +---+---+ + +-------+ +--------+---+---+ | albuterol 5 mg/mL concentrated | Given | 05/06/19 | 2.5 mg | | | | nebulizer solution 2.5 mg 2.5 | | 19 9:19 | | | | | mg, Nebulization, RT BID, First | | AM PST | | | | | dose on 04/24/18 at 0900, RT | | | | | | | will administer., | | | | | | + +-------+ +--------+---+---+ +-------+ +--------+---+---+ | Given | 05/05/19 | 2.5 mg | | | | | 19 10:15 | | | | | | AM PST | | | | +-------+ +--------+---+---+ | Given | 05/04/19 | 2.5 mg | | | | | 19 9:40 | | | | | | PM PST | | | | +-------+ +--------+---+---+ +---+---+ | | | +---+---+ + +-------+ +-------+---+---+ | albuterol-ipratropium 2.5-0.5 | Given | 05/06/19 | 3 mLs | | | | mg/3 mL nebulizer solution 3 mL | | 19 4:45 | | | | | 3 mL, Nebulization, RT EVERY 4 | | AM PST | | | | | HOURS PRN, Shortness of Breath, | | | | | | | Starting 04/23/18 at 2041 | | | | | | + +-------+ +-------+---+---+ +-------+ +-------+---+---+ | Given | 04/26/19 | 3 mLs | | | | | 19 9:02 | | | | | | PM PST | | | | +-------+ +-------+---+---+ +---+---+ | | | +---+---+ + +-------+ +-------+---+---+ | aspirin EC tablet 81 mg 81 mg, | Given | 05/06/19 | 81 mg | | | | Oral, DAILY, First dose on Sat | | 19 8:42 | | | | | 04/24/18 at 0900, Do not cut or | | AM PST | | | | | crush., | | | | | | + +-------+ +-------+---+---+ +-------+ +-------+---+---+ | Given | 05/05/19 | 81 mg | | | | | 19 8:00 | | | | | | AM PST | | | | +-------+ +-------+---+---+ | Given | 05/04/19 | 81 mg | | | | | 19 8:28 | | | | | | AM PST | | | | +-------+ +-------+---+---+ +---+---+ | | | +---+---+ + +-------+ +-------+---+---+ | atorvaSTATin (LIPITOR) tablet | Given | 05/05/19 | 40 mg | | | | 40 mg 40 mg, Oral, NIGHTLY, | | 19 8:31 | | | | | First dose on Thu04/23/18 at 2100 | | PM PST | | | | + +-------+ +-------+---+---+ +-------+ +-------+---+---+ | Given | 05/04/19 | 40 mg | | | | | 19 8:01 | | | | | | PM PST | | | | +-------+ +-------+---+---+ | Given | 05/03/19 | 40 mg | | | | | 19 8:58 | | | | | | PM PST | | | | +-------+ +-------+---+---+ +---+---+ | | | +---+---+ + +-------+ +--------+---+---+ | budesonide (PULMICORT) 0.5 mg/2 | Given | 05/06/19 | 0.5 mg | | | | mL nebulizer solution 0.5 mg | | 19 9:19 | | | | | 0.5 mg, Nebulization, RT BID, | | AM PST | | | | | First dose on 04/24/18 at 0900, | | | | | | | RT will administer. Shake well. | | | | | | | Protect from light. Rinse mouth | | | | | | | after use., | | | | | | + +-------+ +--------+---+---+ +-------+ +--------+---+---+ | Given | 05/05/19 | 0.5 mg | | | | | 19 10:16 | | | | | | AM PST | | | | +-------+ +--------+---+---+ | Given | 05/04/19 | 0.5 mg | | | | | 19 9:40 | | | | | | PM PST | | | | +-------+ +--------+---+---+ +---+---+ | | | +---+---+ + +-------+ +--------+---+---+ | bumetanide (BUMEX) injection | Given | 04/28/19 | 0.5 mg | | | | 0.5 mg 0.5 mg, Intravenous, | | 19 8:26 | | | | | TIMES DAILY, First dose on Wed | | AM PST | | | | | 04/28/18 at 0900 | | | | | | + +-------+ +--------+---+---+ +---+---+ | | | +---+---+ + +-------+ +------+---+---+ | bumetanide (BUMEX) injection 1 | Given | 04/30/19 | 1 mg | | | | mg 1 mg, Intravenous, 2 TIMES | | 19 9:33 | | | | | DAILY, First dose (after last | | AM PST | | | | | modification) on Thu04/28/18 at | | | | | | | 1715 | | | | | | + +-------+ +------+---+---+ +-------+ +------+---+---+ | Given | 04/29/19 | 1 mg | | | | | 19 5:02 | | | | | | PM PST | | | | +-------+ +------+---+---+ | Given | 04/29/19 | 1 mg | | | | | 19 8:23 | | | | | | AM PST | | | | +-------+ +------+---+---+ +---+---+ | | | +---+---+ + +-------+ +------+---+---+ | bumetanide (BUMEX) injection 2 | Given | 05/06/19 | 2 mg | | | | mg 2 mg, Intravenous, 2 TIMES | | 19 8:49 | | | | | DAILY, First dose (after last | | AM PST | | | | | modification) on Thu04/30/18 at | | | | | | | 1700 | | | | | | + +-------+ +------+---+---+ +-------+ +------+---+---+ | Given | 05/05/19 | 2 mg | | | | | 19 4:25 | | | | | | PM PST | | | | +-------+ +------+---+---+ | Given | 05/05/19 | 2 mg | | | | | 19 8:01 | | | | | | AM PST | | | | +-------+ +------+---+---+ +---+---+ | | | +---+---+ + +-------+ +---+---+---+ | chlorhexidine (HIBICLENS) 4 % | Given | 05/05/19 | | | | | liquid Topical, DAILY, First | | 19 8:09 | | | | | dose (after last modification) on | | AM PST | | | | | 04/26/18 at 1230 | | | | | | + +-------+ +---+---+---+ +-------+ +---+---+---+ | Given | 05/03/19 | | | | | | 19 9:03 | | | | | | AM PST | | | | +-------+ +---+---+---+ | Given | 05/02/19 | | | | | | 19 9:31 | | | | | | AM PST | | | | +-------+ +---+---+---+ +---+---+ | | | +---+---+ + +-------+ + +---+---+ | fluticasone (FLONASE) 50 | Given | 05/06/19 | 2 sprays | | | | mcg/nasal spray 2 spray 2 spray, | | 19 8:43 | | | | | Each Nare, DAILY, First dose on | | AM PST | | | | | 04/25/18 at 1315, [place] | | | | | | | gently., | | | | | | + +-------+ + +---+---+ +-------+ + +---+---+ | Given | 05/04/19 | 2 sprays | | | | | 19 8:38 | | | | | | AM PST | | | | +-------+ + +---+---+ | Given | 05/01/19 | 2 sprays | | | | | 19 9:19 | | | | | | AM PST | | | | +-------+ + +---+---+ +---+---+ | | | +---+---+ + +-------+ +-------+---+---+ | furosemide (LASIX) injection 20 | Given | 04/25/19 | 20 mg | | | | mg 20 mg, Intravenous, 2 TIMES | | 19 7:43 | | | | | DAILY 0800 & 1600, First dose | | AM PST | | | | | (after last reorder) on Sat | | | | | | | 04/24/18 at 1600, Hold if SBP < | | | | | | | 120, | | | | | | + +-------+ +-------+---+---+ +-------+ +-------+---+---+ | Given | 04/24/19 | 20 mg | | | | | 19 4:42 | | | | | | PM PST | | | | +-------+ +-------+---+---+ +---+---+ | | | +---+---+ + +-------+ +-------+---+---+ | furosemide (LASIX) injection 20 | Given | 04/26/19 | 20 mg | | | | mg 20 mg, Intravenous, 2 TIMES | | 19 9:35 | | | | | DAILY 0800 & 1600, First dose | | AM PST | | | | | (after last modification) on Sun | | | | | | | 04/25/18 at 1600 | | | | | | + +-------+ +-------+---+---+ +-------+ +-------+---+---+ | Given | 04/25/19 | 20 mg | | | | | 19 3:57 | | | | | | PM PST | | | | +-------+ +-------+---+---+ +---+---+ | | | +---+---+ + +-------+ +-------+---+---+ | furosemide (LASIX) injection 20 | Given | 04/27/19 | 20 mg | | | | mg 20 mg, Intravenous, 2 TIMES | | 19 5:13 | | | | | DAILY 0800 & 1600, First dose | | PM PST | | | | | (after last modification) on [facility] | | | | | | | 04/27/18 at 0800 | | | | | | + +-------+ +-------+---+---+ +-------+ +-------+---+---+ | Given | 04/27/19 | 20 mg | | | | | 19 8:16 | | | | | | AM PST | | | | +-------+ +-------+---+---+ +---+---+ | | | +---+---+ + +-------+ +-------+---+---+ | furosemide (LASIX) injection 30 | Given | 04/26/19 | 30 mg | | | | mg 30 mg, Intravenous, 2 TIMES | | 19 4:00 | | | | | DAILY 0800 & 1600, First dose | | PM PST | | | | | (after last modification) on Mon | | | | | | | 04/26/18 at 1600 | | | | | | + +-------+ +-------+---+---+ +---+---+ | | | +---+---+ + +-------+ +-------+---+---+ | furosemide (LASIX) injection 40 | Given | 04/23/19 | 40 mg | | | | mg 40 mg, Intravenous, ONCE, | | 19 3:28 | | | | | 04/23/18 at 1510, For 1 dose | | PM PST | | | | + +-------+ +-------+---+---+ +---+---+ | | | +---+---+ + +-------+ +-------+---+---+ | furosemide (LASIX) injection 80 | Given | 04/23/19 | 80 mg | | | | mg 80 mg, Intravenous, 3 TIMES | | 19 9:36 | | | | | DAILY, First dose on Thu04/23/18 | | PM PST | | | | | at 2100 | | | | | | + +-------+ +-------+---+---+ +---+---+ | | | +---+---+ + +-------+ +--------+---+---+ | gabapentin (NEURONTIN) capsule | Given | 04/25/19 | 100 mg | | | | 100 mg 100 mg, Oral, NIGHTLY | | 19 8:23 | | | | | PRN, pain, Starting 04/25/18 | | PM PST | | | | | at 1736 | | | | | | + +-------+ +--------+---+---+ +---+---+ | | | +---+---+ + +-------+ +--------+---+ + | heparin 5,000 units/mL | Given | 04/29/19 | 5,000 | | Abdomen- | | injection 5,000 Units 5,000 | | 19 8:22 | Units | | LLQ | | Units, Subcutaneous, EVERY 12 | | AM PST | | | | | HOURS (2 times per day), First | | | | | | | dose on 04/24/18 at 2100, Hold | | | | | | | for platlet < 120k, | | | | | | + +-------+ +--------+---+ + +-------+ +--------+---+ + | Given | 04/28/19 | 5,000 | | Abdomen- | | | 19 9:16 | Units | | RLQ | | | PM PST | | | | +-------+ +--------+---+ + | Given | 04/26/19 | 5,000 | | Abdomen- | | | 19 8:41 | Units | | LLQ | | | PM PST | | | | +-------+ +--------+---+ + +---+---+ | | | +---+---+ + +-------+ +--------+---+---+ | HYDROmorphone (DILAUDID) | Given | 04/25/19 | 0.8 mg | | | | injection 0.4-0.8 mg 0.4-0.8 mg, | | 19 1:51 | | | | | Intravenous, EVERY 4 HOURS PRN, | | PM PST | | | | | Pain, Starting 04/23/18 at | | | | | | | 2041, Use IV morphine first if | | | | | | | ordered. Slow IV push, not faster | | | | | | | than 0.25 mg/minute. If | | | | | | | ineffective or not tolerated and | | | | | | | unable to take oral opioid - | | | | | | | contact MD., | | | | | | + +-------+ +--------+---+---+ +-------+ +--------+---+---+ | Given | 04/25/19 | 0.8 mg | | | | | 19 6:15 | | | | | | AM PST | | | | +-------+ +--------+---+---+ | Given | 04/24/19 | 0.8 mg | | | | | 19 8:29 | | | | | | PM PST | | | | +-------+ +--------+---+---+ +---+---+ | | | +---+---+ + +-------+ +------+---+---+ | HYDROmorphone (DILAUDID) | Given | 04/23/19 | 1 mg | | | | injection 1 mg 1 mg, | | 19 1:06 | | | | | Intravenous, ONCE, 04/23/18 at | | PM PST | | | | | 1250, For 1 dose | | | | | | + +-------+ +------+---+---+ +---+---+ | | | +---+---+ + +-------+ +------+---+---+ | HYDROmorphone (DILAUDID) | Given | 04/23/19 | 1 mg | | | | injection 1 mg 1 mg, | | 19 5:56 | | | | | Intravenous, ONCE, Thu04/23/18 at | | PM PST | | | | | 1750, For 1 dose | | | | | | + +-------+ +------+---+---+ +---+---+ | | | +---+---+ + +-------+ +-------+---+---+ | hydrOXYzine pamoate (VISTARIL) | Given | 05/02/19 | 25 mg | | | | capsule 25 mg 25 mg, Oral, EVERY | | 19 10:57 | | | | | 6 HOURS PRN, Anxiety, Starting | | AM PST | | | | | Thu04/23/18 at 2041 | | | | | | + +-------+ +-------+---+---+ +-------+ +-------+---+---+ | Given | 05/01/19 | 25 mg | | | | | 19 9:16 | | | | | | AM PST | | | | +-------+ +-------+---+---+ | Given | 04/29/19 | 25 mg | | | | | 19 6:42 | | | | | | AM PST | | | | +-------+ +-------+---+---+ +---+---+ | | | +---+---+ + +-------+ +-------+---+---+ | ketorolac (TORADOL) injection | Given | 04/24/19 | 15 mg | | | | 15 mg 15 mg, Intravenous, ONCE, | | 19 11:34 | | | | | 04/24/18 at 1145, For 1 dose | | AM PST | | | | + +-------+ +-------+---+---+ +---+---+ | | | +---+---+ + +-------+ +-------+---+---+ | ketorolac (TORADOL) injection | Given | 04/24/19 | 15 mg | | | | 15 mg 15 mg, Intravenous, ONCE, | | 19 4:51 | | | | | 04/24/18 at 1700, For 1 dose | | PM PST | | | | + +-------+ +-------+---+---+ +---+---+ | | | +---+---+ + +-------+ +-------+---+---+ | ketorolac (TORADOL) injection | Given | 04/29/19 | 15 mg | | | | 15 mg 15 mg, Intravenous, EVERY | | 19 8:23 | | | | | 6 HOURS PRN, Pain, Starting Mon | | AM PST | | | | | 04/26/18 at 1111, For 5 days | | | | | | + +-------+ +-------+---+---+ +-------+ +-------+---+---+ | Given | 04/29/19 | 15 mg | | | | | 19 1:58 | | | | | | AM PST | | | | +-------+ +-------+---+---+ | Given | 04/28/19 | 15 mg | | | | | 19 4:34 | | | | | | PM PST | | | | +-------+ +-------+---+---+ +---+---+ | | | +---+---+ + +-------+ +------+---+---+ | lactulose liquid 20 g 20 g, | Given | 04/24/19 | 20 g | | | | Oral, 2 TIMES DAILY, First dose | | 19 8:29 | | | | | on 04/23/18 at 2100 | | PM PST | | | | + +-------+ +------+---+---+ +-------+ +------+---+---+ | Given | 04/24/19 | 20 g | | | | | 19 9:36 | | | | | | AM PST | | | | +-------+ +------+---+---+ | Given | 04/23/19 | 20 g | | | | | 19 9:36 | | | | | | PM PST | | | | +-------+ +------+---+---+ +---+---+ | | | +---+---+ + +-------+ +------+---+---+ | lactulose liquid 20 g 20 g, | Given | 05/05/19 | 20 g | | | | Oral, DAILY, First dose (after | | 19 8:01 | | | | | last modification) on 04/26/18 | | AM PST | | | | | at 0900 | | | | | | + +-------+ +------+---+---+ +-------+ +------+---+---+ | Given | 05/04/19 | 20 g | | | | | 19 8:28 | | | | | | AM PST | | | | +-------+ +------+---+---+ | Given | 05/03/19 | 20 g | | | | | 19 8:58 | | | | | | AM PST | | | | +-------+ +------+---+---+ +---+---+ | | | +---+---+ + +-------+ +------+---+---+ | lactulose liquid 20 g 20 g, | Given | 05/06/19 | 20 g | | | | Oral, 2 TIMES DAILY, First dose | | 19 8:42 | | | | | (after last modification) on Wed | | AM PST | | | | | 05/05/18 at 2100 | | | | | | + +-------+ +------+---+---+ +-------+ +------+---+---+ | Given | 05/05/19 | 20 g | | | | | 19 8:32 | | | | | | PM PST | | | | +-------+ +------+---+---+ +---+---+ | | | +---+---+ + +-------+ +--------+---+---+ | LORazepam (ATIVAN) injection | Given | 04/26/19 | 0.5 mg | | | | 0.5 mg 0.5 mg, Intravenous, | | 19 3:47 | | | | | NIGHTLY PRN, pain diffuse, | | AM PST | | | | | Starting 04/25/18 at 1735 | | | | | | + +-------+ +--------+---+---+ +---+---+ | | | +---+---+ + +-------+ +------+---+---+ | LORazepam (ATIVAN) tablet 1 mg | Given | 05/04/19 | 1 mg | | | | 1 mg, Oral, EVERY 6 HOURS PRN, | | 19 6:40 | | | | | Anxiety, Starting 05/02/18 at | | PM PST | | | | | 1237 | | | | | | + +-------+ +------+---+---+ +-------+ +------+---+---+ | Given | 05/02/19 | 1 mg | | | | | 19 12:55 | | | | | | PM PST | | | | +-------+ +------+---+---+ +---+---+ | | | +---+---+ + +-------+ +--------+---+---+ | magnesium oxide (MAG-OX) tablet | Given | 04/25/19 | 400 mg | | | | 400 mg 400 mg, Oral, DAILY, | | 19 9:56 | | | | | First dose on 04/24/18 at 0900 | | AM PST | | | | + +-------+ +--------+---+---+ +-------+ +--------+---+---+ | Given | 04/24/19 | 400 mg | | | | | 19 9:36 | | | | | | AM PST | | | | +-------+ +--------+---+---+ +---+---+ | | | +---+---+ + +-------+ +--------+---+---+ | magnesium oxide (MAG-OX) tablet | Given | 04/24/19 | 400 mg | | | | 400 mg 400 mg, Oral, ONCE, Sat | | 19 8:54 | | | | | 04/24/18 at 0815, For 1 dose | | AM PST | | | | + +-------+ +--------+---+---+ +---+---+ | | | +---+---+ + +-------+ +--------+---+---+ | magnesium oxide (MAG-OX) tablet | Given | 04/26/19 | 400 mg | | | | 400 mg 400 mg, Oral, 2 TIMES | | 19 8:13 | | | | | DAILY, First dose (after last | | AM PST | | | | | modification) on 04/25/18 at | | | | | | | 2100 | | | | | | + +-------+ +--------+---+---+ +-------+ +--------+---+---+ | Given | 04/25/19 | 400 mg | | | | | 19 8:23 | | | | | | PM PST | | | | +-------+ +--------+---+---+ +---+---+ | | | +---+---+ + +-------+ +--------+---+---+ | magnesium oxide (MAG-OX) tablet | Given | 05/02/19 | 400 mg | | | | 400 mg 400 mg, Oral, 2 TIMES | | 19 10:00 | | | | | DAILY, First dose (after last | | PM PST | | | | | modification) on 04/26/18 at | | | | | | | 2100 | | | | | | + +-------+ +--------+---+---+ +-------+ +--------+---+---+ | Given | 05/02/19 | 400 mg | | | | | 19 8:25 | | | | | | AM PST | | | | +-------+ +--------+---+---+ | Given | 05/01/19 | 400 mg | | | | | 19 8:42 | | | | | | PM PST | | | | +-------+ +--------+---+---+ +---+---+ | | | +---+---+ + +---------+ +-----+ +---+ | magnesium sulfate 2 g/50 mL | New Bag | 04/24/19 | 2 g | 25 mL/hr | | | IVPB 2 g 2 g, Intravenous, | | 19 9:08 | | | | | Administer over 120 Minutes, | | AM PST | | | | | ONCE, 04/24/18 at 0815, For 1 | | | | | | | dose, Maximum recommended | | | | | | | infusion rate = 1 gram/hour., | | | | | | + +---------+ +-----+ +---+ +---+---+ | | | +---+---+ + +---------+ +-----+ +---+ | magnesium sulfate 2 g/50 mL | New Bag | 04/26/19 | 2 g | 25 mL/hr | | | IVPB 2 g 2 g, Intravenous, | | 19 11:45 | | | | | Administer over 120 Minutes, | | AM PST | | | | | ONCE, 04/26/18 at 1145, For 1 | | | | | | | dose, Maximum recommended | | | | | | | infusion rate = 1 gram/hour., | | | | | | + +---------+ +-----+ +---+ +---+---+ | | | +---+---+ + +---------+ +-----+ +---+ | magnesium sulfate 4 g/100 mL | New Bag | 05/03/19 | 4 g | 25 mL/hr | | | IVPB 4 g 4 g, Intravenous, | | 19 8:55 | | | | | Administer over 240 Minutes, | | AM PST | | | | | ONCE, [facility] 05/03/18 at 0815, For 1 | | | | | | | dose, Maximum recommended | | | | | | | infusion rate = 1 gram/hour., | | | | | | + +---------+ +-----+ +---+ +---+---+ | | | +---+---+ + +-------+ +-------+---+---+ | metoclopramide (REGLAN) 5 mg/mL | Given | 05/03/19 | 10 mg | | | | injection 10 mg 10 mg, | | 19 5:16 | | | | | Intravenous, EVERY 6 HOURS PRN, | | PM PST | | | | | Nausea, Vomiting, Starting Fri | | | | | | | 04/23/18 at 2041, Protect from | | | | | | | light., | | | | | | + +-------+ +-------+---+---+ +---+---+ | | | +---+---+ + +-------+ +--------+---+---+ | nitroglycerin (NITRO-BID) 2% | Given | 05/01/19 | 0.5 | | | | ointment 0.5 inch 0.5 inch, | | 19 5:38 | inches | | | | Topical, EVERY 6 HOURS PRN, chest | | PM PST | | | | | pain, hold for SBP< 110 and call | | | | | | | MD, Starting 04/24/18 at 1245 | | | | | | + +-------+ +--------+---+---+ +---+---+ | | | +---+---+ + +-------+ +------+---+---+ | ondansetron (ZOFRAN ODT) | Given | 05/05/19 | 4 mg | | | | disintegrating tablet 4 mg 4 mg, | | 19 8:32 | | | | | Oral, EVERY 6 HOURS PRN, Nausea, | | PM PST | | | | | Vomiting, Starting 04/27/18 | | | | | | | at 1554 | | | | | | + +-------+ +------+---+---+ +-------+ +------+---+---+ | Given | 05/04/19 | 4 mg | | | | | 19 8:27 | | | | | | AM PST | | | | +-------+ +------+---+---+ | Given | 05/03/19 | 4 mg | | | | | 19 2:28 | | | | | | PM PST | | | | +-------+ +------+---+---+ +---+---+ | | | +---+---+ + +-------+ +------+---+---+ | ondansetron (ZOFRAN) injection | Given | 04/28/19 | 4 mg | | | | 4 mg 4 mg, Intravenous, EVERY 6 | | 19 6:11 | | | | | HOURS PRN, Nausea, Vomiting, | | AM PST | | | | | Starting 04/23/18 at 2041, | | | | | | | First line agent, | | | | | | + +-------+ +------+---+---+ +-------+ +------+---+---+ | Given | 04/27/19 | 4 mg | | | | | 19 9:40 | | | | | | PM PST | | | | +-------+ +------+---+---+ | Given | 04/24/19 | 4 mg | | | | | 19 6:25 | | | | | | AM PST | | | | +-------+ +------+---+---+ +---+---+ | | | +---+---+ + +-------+ +------+---+---+ | oxyCODONE (ROXICODONE) tablet 5 | Given | 04/30/19 | 5 mg | | | | mg 5 mg, Oral, EVERY 6 HOURS | | 19 9:13 | | | | | PRN, Pain, Starting [facility] 04/29/18 | | AM PST | | | | | at 1102 | | | | | | + +-------+ +------+---+---+ +-------+ +------+---+---+ | Given | 04/30/19 | 5 mg | | | | | 19 1:58 | | | | | | AM PST | | | | +-------+ +------+---+---+ | Given | 04/29/19 | 5 mg | | | | | 19 6:46 | | | | | | PM PST | | | | +-------+ +------+---+---+ +---+---+ | | | +---+---+ + +-------+ +------+---+---+ | oxyCODONE (ROXICODONE) tablet 5 | Given | 05/06/19 | 5 mg | | | | mg 5 mg, Oral, EVERY 4 HOURS | | 19 12:49 | | | | | PRN, Pain, Starting 04/30/18 | | PM PST | | | | | at 1330 | | | | | | + +-------+ +------+---+---+ +-------+ +------+---+---+ | Given | 05/06/19 | 5 mg | | | | | 19 3:12 | | | | | | AM PST | | | | +-------+ +------+---+---+ | Given | 05/05/19 | 5 mg | | | | | 19 6:25 | | | | | | PM PST | | | | +-------+ +------+---+---+ +---+---+ | | | +---+---+ + +-------+ +-------+---+---+ | pantoprazole (PROTONIX) DR | Given | 04/24/19 | 40 mg | | | | tablet 40 mg 40 mg, Oral, DAILY | | 19 6:26 | | | | | BEFORE BREAKFAST, First dose on | | AM PST | | | | | 04/24/18 at 0730, Do not cut or | | | | | | | crush., Indication: GERD | | | | | | + +-------+ +-------+---+---+ +---+---+ | | | +---+---+ + +-------+ +-------+---+---+ | pantoprazole (PROTONIX) DR | Given | 05/06/19 | 40 mg | | | | tablet 40 mg 40 mg, Oral, 2 | | 19 6:24 | | | | | TIMES DAILY BEFORE MEALS, First | | AM PST | | | | | dose (after last modification) on | | | | | | | 04/24/18 at 1630, Do not cut | | | | | | | or crush., Indication: GERD | | | | | | + +-------+ +-------+---+---+ +-------+ +-------+---+---+ | Given | 05/05/19 | 40 mg | | | | | 19 4:25 | | | | | | PM PST | | | | +-------+ +-------+---+---+ | Given | 05/05/19 | 40 mg | | | | | 19 6:31 | | | | | | AM PST | | | | +-------+ +-------+---+---+ +---+---+ | | | +---+---+ + +-------+ +--------+---+---+ | potassium chloride (Klor-Con | Given | 04/24/19 | 40 mEq | | | | M20) ER tablet 40 mEq 40 mEq, | | 19 12:20 | | | | | Oral, EVERY 4 HOURS (6 times per | | PM PST | | | | | day), First dose on 04/24/18 at | | | | | | | 0815, For 3 doses, OK to | | | | | | | substitute liquid formulation if | | | | | | | better tolerated., | | | | | | + +-------+ +--------+---+---+ +-------+ +--------+---+---+ | Given | 04/24/19 | 40 mEq | | | | | 19 8:53 | | | | | | AM PST | | | | +-------+ +--------+---+---+ +---+---+ | | | +---+---+ + +-------+ +--------+---+---+ | potassium chloride (Klor-Con | Given | 04/24/19 | 40 mEq | | | | M20) ER tablet 40 mEq 40 mEq, | | 19 8:29 | | | | | Oral, EVERY 2 HOURS, First dose | | PM PST | | | | | (after last modification) on Sat | | | | | | | 04/24/18 at 1600, For 3 doses, OK | | | | | | | to substitute liquid formulation | | | | | | | if better tolerated., | | | | | | + +-------+ +--------+---+---+ +-------+ +--------+---+---+ | Given | 04/24/19 | 40 mEq | | | | | 19 5:37 | | | | | | PM PST | | | | +-------+ +--------+---+---+ | Given | 04/24/19 | 40 mEq | | | | | 19 4:42 | | | | | | PM PST | | | | +-------+ +--------+---+---+ +---+---+ | | | +---+---+ + +-------+ +--------+---+---+ | potassium chloride (Klor-Con | Given | 05/04/19 | 40 mEq | | | | M20) ER tablet 40 mEq 40 mEq, | | 19 8:28 | | | | | Oral, DAILY, First dose on Mon | | AM PST | | | | | 05/03/18 at 0900 | | | | | | + +-------+ +--------+---+---+ +-------+ +--------+---+---+ | Given | 05/03/19 | 40 mEq | | | | | 19 8:57 | | | | | | AM PST | | | | +-------+ +--------+---+---+ +---+---+ | | | +---+---+ + +-------+ +--------+---+---+ | potassium chloride (Klor-Con | Given | 05/04/19 | 40 mEq | | | | M20) ER tablet 40 mEq 40 mEq, | | 19 1:51 | | | | | Oral, ONCE, 05/04/18 at 1400, | | PM PST | | | | | For 1 dose | | | | | | + +-------+ +--------+---+---+ +---+---+ | | | +---+---+ + +-------+ +--------+---+---+ | potassium chloride (Klor-Con | Given | 05/06/19 | 40 mEq | | | | M20) ER tablet 40 mEq 40 mEq, | | 19 8:42 | | | | | Oral, 2 TIMES DAILY, First dose | | AM PST | | | | | (after last modification) on Wed | | | | | | | 05/05/18 at 0900 | | | | | | + +-------+ +--------+---+---+ +-------+ +--------+---+---+ | Given | 05/05/19 | 40 mEq | | | | | 19 8:32 | | | | | | PM PST | | | | +-------+ +--------+---+---+ | Given | 05/05/19 | 40 mEq | | | | | 19 8:01 | | | | | | AM PST | | | | +-------+ +--------+---+---+ +---+---+ | | | +---+---+ + +---------+ +--------+-------+---+ | potassium chloride 10 mEq in | New Bag | 04/24/19 | 10 mEq | 100 | | | 100 mL IVPB 10 mEq, Intravenous, | | 19 1:03 | | mL/hr | | | Administer over 1 Hours, ONCE, | | PM PST | | | | | 04/24/18 at 0815, For 1 dose | | | | | | + +---------+ +--------+-------+---+ +---+---+ | | | +---+---+ + +---------+ +--------+-------+---+ | potassium chloride 10 mEq in | New Bag | 04/24/19 | 10 mEq | 100 | | | 100 mL IVPB 10 mEq, Intravenous, | | 19 11:35 | | mL/hr | | | Administer over 1 Hours, ONCE, | | AM PST | | | | | 04/24/18 at 0815, For 1 dose | | | | | | + +---------+ +--------+-------+---+ +---+---+ | | | +---+---+ documented in this encounter
--- OUTSIDE RECORDS SUMMARY | ~2019-10-24 | XMS | Encounter Summary ---
Demographics + + + | Address | [address] | | | [place] [address] | + + + | Home Phone | | + + + | Preferred Language | Unknown | + + + | Marital Status | Single | + + + | Taoist Affiliation | 1041 | + + + | Race | Unknown | + + + | Ethnic Group | Unknown | + + + Author + + + | Author | [facility] | | | and [place] | + + + | Organization | [facility] | | [...] Team Providers + +------+ + | Care Mechanical Apprentice Name | Role | Phone | + +------+ + | Julita Cabral PA-C | PCP | | + +------+ + Encounter Details +--------+ + + + + | Date | Type | Department | Care Team | Description | +--------+ + + + + | 01/05/ | Documentati | [facility] [place] | [facility], | | | 2019 | on | GASTROENTEROLOGY | [address] | | | | | [address] | [address] | | | | | [address] [place], [place] | [place], [place] | | | | | [address] | [address] | | | | | [phone] | | | +--------+ + + + [...] documented as of this encounter Progress Notes Becky Ferris CMA - 01/05/2019 8:24 AM PDTFaxed [email or web address]Elect[facility] nically signed by Becky Ferris CMA at 01/05/2019 8:25 AM PDTdocumented in this encoun ter Plan of Treatment Not on filedocumented as of this encounter Visit Diagnoses Not on filedocumented in this encounter"
--- OUTSIDE RECORDS SUMMARY | ~2019-10-24 | XMS | Encounter Summary ---
Demographics + + + | Address | [address] | | | [place] [address] | + + + | Home Phone | | + + + | Preferred Language | Unknown | + + + | Marital Status | Single | + + + | Mosque Affiliation | 1041 | + + + | Race | Unknown | + + + | Ethnic Group | Unknown | + + + Author + + + | Author | [facility] | | | and [place] | + + + | Organization | [facility] | | [...] Team Providers + +------+ + | Care Capping Machine Operator Name | Role | Phone | + +------+ + | Julita Cabral PA-C | PCP | | + +------+ + Encounter Details +--------+ + + + + | Date | Type | Department | Care Team | Description | +--------+ + + + + | 04/17/ | Orders Only | [facility] [place] | Keaton Wakefield MD | Nausea and vomiting; | | 2016 | | GASTROENTEROLOGY | [address], [place] | Morbid obesity due | | | | [address] [place] | [address] [place], [place] | to excess calories | | | | [address] [place], [place] | [address] | (HCC); Aspiration | | | | [address] | | pneumonia, | | | | [phone] | | unspecified | | | | | | aspiration pneumonia | | | | | | type, unspecified | | | | | | laterality, | | | | | | unspecified part of | | | | | | lung (HCC) | +--------+ + + + + Social [...]
--- OUTSIDE RECORDS SUMMARY | ~2019-10-24 | XMS | Encounter Summary ---
Demographics + + + | Address | [address] | | | [place] [address] | + + + | Home Phone | | + + + | Preferred Language | Unknown | + + + | Marital Status | Single | + + + | Christian Affiliation | 1041 | + + + | Race | Unknown | + + + | Ethnic Group | Unknown | + + + Author + + + | Author | [facility] | | | and [place] | + + + | Organization | [facility] | | [...] Team Providers + +------+ + | Care Bartender Helper Name | Role | Phone | + [...] | | vomiting, | | [address], | | | | | vomiting of | | [address] | | | | | unspecified | | [place], | | | | | type | | [place] [address] | | | | | Aspiration | | Phone: | | | | | pneumonia | | [phone] | | | | | due to | | Fax: | | | | | gastric | | [phone] | | | | | secretions | [...] + + + + | 04/17/ | Hospital | [facility] | Keaton Wakefield MD | Nausea and vomiting, | | 2016 | Encounter | [facility] | [address], [place] | vomiting of | | | | [address] | [address] [place] | unspecified type | | | | [place], [place] | [address] | (Primary Dx) | | | | [address] | | | | | | [phone] | | | +--------+ + + + [...] + + + | Blood Pressure | 120/63 | 04/17/2015 1:45 PM | | | | | PST | | + + + + + | Pulse | 77 | 04/17/2015 1:45 PM | | | | | PST | | + + + + + | Temperature | 37.4 C (99.3 F) | 04/17/2015 12:30 PM | | | | | PST | | + + + + + | Respiratory Rate | 16 | 04/17/2015 1:00 PM | | | | | PST | | + + + + + | Oxygen Saturation | 95% | 04/17/2015 1:45 PM | | | | | PST | | + + + + + | Inhaled Oxygen | - | - | | | Concentration | | | | + + + + + | Weight | 149.7 kg (330 lb) | 04/17/2015 10:32 AM | | | | | PST | | + + + + + | Height | 172.7 cm (5' 7.99") | 04/17/2015 10:32 AM | | | | | PST | | + + + + + | Body Mass Index | 50.19 | 04/17/2015 10:32 AM | | | | | PST | | + + + + + documented in this encounter Medications at Time [...] + + + +---------+ + + | ALPRAZolam (XANAX) | Take 0.5 mg by mouth | | 0 | | | | 0.5 mg tablet | 3 times daily as | | | | 8 | | | needed for Anxiety | | | | | | | (take 1 tablet by | | | | | | | mouth three times a | | | | | | | day if needed for | | | | | | | anxiety *avoid | | | | | | | alcohol* * may cause | | | | | | | drowsiness*). | | | | | + + + +---------+ + + | cholecalciferol | Take 2,000 Units by | | 0 | | | | (VITAMIN D-3) 2000 | mouth Daily. | | | | 8 | | UNITS TABS | | | | | | + + + +---------+ + + | citalopram | Take 40 mg by mouth | | 0 | | | | (CELEXA) 40 mg | Daily. | | | | 9 | | tablet | | | | | | + + + +---------+ + + | docusate sodium | Take 100 mg by mouth | | 0 | | | | (COLACE) 100 mg | nightly. Take 2 | | | | 8 | | capsule | tablets nightly | | | | | + + + +---------+ + + | | | | 0 | 03/07/20 | | | HYDROcodone-acetamin | | | | 15 | 8 | | ophen (NORCO) 10-325 | | | | | | | mg per tablet | | | | | | + + + +---------+ + + | hydrocortisone | Apply topically 2 | | 0 | | | | 2.5% cream | times daily. Apply a | | | | 8 | | | small amount to | | | | | | | affected area as | | | | | | | directed to anus | | | | | | | twice daily | | | | | + + + +---------+ + + | insulin glargine | Inject 10 Units | | 0 | | | | (LANTUS SOLOSTAR) | under the skin | | | | 9 | | 100 units/mL | nightly. Inject 10 | | | | | | injection (pen) | units under the skin | | | | | | | at bedtime | | | | | + + + +---------+ + + | IRON PO | Take by mouth 2 | | 0 | | | | | times daily. | | | | 8 | + + + +---------+ + + | levofloxacin | | | 0 | 01/04/20 | | | (LEVAQUIN) 500 mg | | | | 15 | 8 | | tablet | | | | | | + + + +---------+ + + | | | | 0 | 01/04/20 | | | lisinopril-hydrochlo | | | | 15 | 8 | | rothiazide | | | | | | | (PRINZIDE,ZESTORETIC | | | | | | | ) 20-12.5 MG per | | | | | | | tablet | | | | | | + + + +---------+ + + | naproxen | Take 250 mg by mouth | | 0 | | | | (NAPROSYN) 250 mg | 2 times daily (with | | | | 8 | | tablet | breakfast & | | | | | | | dinner). | | | | | + + + +---------+ + + | ranitidine | Take 150 mg by mouth | | 0 | | | | (ZANTAC) 150 mg | 2 times daily. | | | | 8 | | tablet | | | | | | + + + +---------+ + + | rosuvastatin | Take 20 mg by mouth | | 0 | | | | (CRESTOR) 20 mg | nightly. | | | | 8 | | tablet | | | | | | + + + +---------+ + + | sitaGLIPtin | Take 100 mg by mouth | | 0 | | | | (JANUVIA) 100 mg | Daily. | | | | 8 | | tablet | | | | | | + + + +---------+ + + documented as of this encounter H&P Keaton Valero MD - 04/17/2015 11:57 AM PSTThe patient has no questions consent form is si gned we'll proceed with upper endoscopy or evaluation of nausea and vomiting. Due to her mu ltiple comorbid conditions the procedure is to be done in the OR with anesthesia assistanceE lectronically signed by Keaton Wakefield MD at 04/17/2015 11:58 AM PSTHarri, Keaton Duran MD - 3:01 PM PST Subjective: Patient ID: Tiny Campuzano is a 39 y.o. female. HPI Comments: Patient is seen for evaluation of anemia vomiting nausea Patient is somewhat of an unreliable historian. Outside records are reviewed Patient states that she's had nausea and vomiting for greater than a year. Usually occurs early in the morning i.e. 4 -5 AM and wakes her from sleep. She's been hospitalized twice f or pneumonia probable aspiration pneumonia in October and January 2015. She is now trying t o sleep with the head of her bed elevated. Patient was hospitalized for syncopal spell and her hemoglobin was found to be 9.3. Hemoglobin 2 months prior to that hospitalization Novem audrey was 11.4. Patient has early progresses satiety is a diabetic. She denies any past hist ory of hiatal hernia. Patient has had generalized abdominal pain and she cannot characteriz e it more than that. She specifically denies symptoms of reflux usually has some dysphagia in the upper esophageal sphincter area She underwent emergency appendectomy in February for acute and chronic appendicitis. The pain has not improved since that time nor has her nause a or vomiting. She has not lost any weight is morbidly obese at 325 pounds she reports that she has constipation and by that she means no stools. She is taking stool softeners and us ually moves her bowels about every other day. Her nausea and vomiting is not associated wit h the patient. She is taking Zantac 150 mg twice a day and Zofran on an as-needed basis wit h no improvement of her nausea and vomiting. The patient underwent a colonoscopy in September 02 and according to her polyps were removed but the procedure note mentions only internal he morrhoids Review shows substance abuse morbid obesity insulin-dependent diabetes hypertension Abdominal Pain Associated symptoms include constipation, diarrhea, a fever, headaches, nausea and vomiting . Emesis Associated symptoms include abdominal pain, a fever, headaches, nausea, numbness and vomiti ng. 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 Incision and drainage of vulva or perineal abcess 06-15-13 Repair/graft femur head/neck 01-06-13 Colonoscopy with lesion removel 10/30/10 Biopsy of uterus lining 12-27-09 Tonsillectomy and adenoidectomy 10-08-89 Appendectomy 03/02/2015 Family History Problem Relation Age of Onset Family history unknown: Yes History Social History Marital Status: Single Spouse Name: N/A Number of Children: N/A Years of Education: N/A Social History Main Topics Smoking status: Never Smoker Smokeless tobacco: Never Used Alcohol Use: None Drug Use: None Sexual Activity: None Other Topics Concern None Social History Narrative Review of Systems Constitutional: Positive for fever and unexpected weight change. HENT: Positive for tinnitus and trouble swallowing. Respiratory: Positive for shortness of breath. Sleeps sitting up due to shortness of breath Cardiovascular: Positive for leg swelling. Gastrointestinal: Positive for nausea, vomiting, abdominal pain, diarrhea, constipation and blood in stool. Skin: Positive for wound. Neurological: Positive for numbness and headaches. Psychiatric/Behavioral: Positive for dysphoric mood. The patient is nervous/anxious. Objective: Physical Exam Constitutional: She is oriented to person, place, and time. She appears well-developed and well-nourished. No distress. Morbid obesity B PR 49.4 HENT: Head: Normocephalic and atraumatic. Right Ear: External ear normal. Left Ear: External ear normal. Nose: Nose normal. Mouth/Throat: Oropharynx is clear and moist. No oropharyngeal exudate. Poor dentition Eyes: Conjunctivae and EOM are normal. Pupils are equal, round, and reactive to light. Righ t eye exhibits no discharge. Left eye exhibits no discharge. No scleral icterus. Neck: Normal range of motion. Neck supple. No JVD present. No tracheal deviation present. Cardiovascular: Normal rate, regular rhythm, normal heart sounds and intact distal pulses. Exam reveals no gallop and no friction rub. No murmur heard. Pulmonary/Chest: Effort normal and breath sounds normal. No stridor. No respiratory distres s. She has no wheezes. She has no rales. She exhibits no tenderness. Abdominal: Soft. She exhibits mass. She exhibits no distension. There is no tenderness. The re is no rebound and no guarding. Bowel sounds decreased small area of drainage just above the umbilicus at the bottom of the midline scar abdominal wall fullness and firmness felt at the top of the midline scar Musculoskeletal: Normal range of motion. She exhibits no edema or tenderness. Lymphadenopathy: She has no cervical adenopathy. Neurological: She is alert and oriented to person, place, and time. No cranial nerve defici t. She exhibits normal muscle tone. Coordination normal. Skin: Skin is warm and dry. No rash noted. She is not diaphoretic. No erythema. No pallor. Psychiatric: She has a normal mood and affect. Her behavior is normal. Judgment and thought content normal. Nursing note and vitals reviewed. 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 Benefits and risks of the procedure is explained t o the patient she concurs and she'll be scheduled as an outpatient. Depending upon the find ings of the same possible gastric emptying study may be appropriate Portions of this report were transcribed using voice recognition software. Every effort wa s made to ensure accuracy; however, inadvertent computerized transmission operator errors may be pre sent. documented in this enc ounter Miscellaneous Notes Op Note - Keaton Wakefield MD - 04/17/2015 12:29 PM PSTUpper endoscopy was remarkable for a weakened lower esophageal sphincter at 40 cm from the alveolar ridge marked gastroparesis wi th antral gastritis marked degree H. pylori biopsy was obtained there was duodenal erosions within the duodenal bulb. Biopsies were obtained of the duodenum mucosa for celiac sprue al though the mucosa appeared to be normal the patient may benefit from proton pump inhibitor t herapy along with metoclopramide help with her gastroparesis edation Documentation - Rosy Patel RN - 016 12:11 PM PSTPatient intubated safetly by Dr Gan. documented in this encounter Plan of Treatment Not on filedocumented as of this encounter Procedures + +--------+ + + + | Procedure Name | Priori | Date/Time | Associated Diagnosis | Comments | | | ty | | | | + +--------+ + + + | EGD | Routin | 04/17/2015 | | Results for this | | | e | 12:31 PM | | procedure are in the | | | | PST | | results section. | + +--------+ + + + | HELICOBACTER PYLORI | Routin | 04/17/2015 | | Results for this | | BIOPSY | e | 12:14 PM | | procedure are in the | | | | PST | | results section. | + +--------+ + + + | EGD | | 04/17/2015 | Nausea and | | | | | 12:03 PM | vomiting, vomiting | | | | | PST | of unspecified type | | | | | | Aspiration | | | | | | pneumonia due to | | | | | | gastric secretions | | | | | | (HCC) Morbid | | | | | | obesity, unspecified | | | | | | obesity type (HCC) | | + +--------+ + + + | POC GLUCOSE | Routin | 04/17/2015 | | Results for this | | | e | 11:03 AM | | procedure are in the | | | | PST | | results section. | + +--------+ + + + | CBC NO DIFFERENTIAL | STAT | 04/17/2015 | | Results for this | | | | 11:02 AM | | procedure are in the | | | | PST | | results section. | + +--------+ + + + | POCT TEST, | Routin | 04/17/2015 | | Results for this | | URINE, QUAL | e | 10:48 AM | | procedure are in the | | | | PST | | results section. | + +--------+ + + + | DIAGNOSTIC REPORT - | | 04/17/2015 | | | | EXTERNAL SCAN | | 12:00 AM | | | | | | PST | | | + +--------+ + + + | SURGICAL PATHOLOGY | Routin | 04/17/2015 | | Results for this | | EXAM | e | 12:00 AM | | procedure are in the | | | | PST | | results section. | + +--------+ + + + documented in this encounter Results EGD (04/17/2015 12:31 PM PST) + + | Specimen | + + | | + + + + -+ | Narrative | Performed At | + + -+ | | [facility] | | GastroenterologyPatient Name: Tiny CampuzanoProcedjuan a Date: | [facility] | | 04/17/2015 12:31 PMMRN: [id number] #: [id number] of : | | | 1975Admit Type: AmbulatoryAge: 39Room: [facility]Gender: FemaleNote | | | Status: FinalizedAttending MD: Keaton Wakefield, MDProcedure: | | | Upper GI endoscopyIndications: Suspected esophageal | | | reflux, Nausea with vomitingProviders: Keaton Wakefield, | | | MDMedicines: General AnesthesiaComplications: No | | | immediate complications. Estimated blood loss: Minimal.Procedure: | | | Pre-Anesthesia Assessment: - Prior to the procedure, a | | | History and Physical was performed, and patient medications, | | | allergies and sensitivities were reviewed. The patient's | | | tolerance of previous anesthesia was reviewed. - Prior to the | | | procedure, a History and Physical was performed, and patient | | | medications and allergies were reviewed. The patient is | | | competent. The risks and benefits of the procedure and the sedation | | | options and risks were discussed with the patient. All questions | | | were answered and informed consent was obtained. Patient | | | identification and proposed procedure were verified by the | | | physician, the nurse, the anesthesiologist and the poured concrete wall technician | | | in the procedure room. Mental Status Examination: alert and | | | oriented. Airway Examination: small/crowded oropharyngeal | | | airway and Mallampati Class IV (tongue obstructs view of the | | | soft palate). Prophylactic Antibiotics: The patient does not require | | | prophylactic antibiotics. Prior Anticoagulants: The patient has | | | taken no previous anticoagulant or antiplatelet agents. ASA | | | Grade Assessment: III - A patient with severe systemic disease. | | | After reviewing the risks and benefits, the patient was deemed | | | in satisfactory condition to undergo the procedure. The | | | anesthesia plan was to use general anesthesia. Immediately | | | prior to administration of medications, the patient was | | | re-assessed for adequacy to receive sedatives. The heart rate, | | | respiratory rate, oxygen saturations, blood pressure, adequacy of | | | pulmonary ventilation, and response to care were monitored | | | throughout the procedure. The physical status of the patient | | | was re-assessed after the procedure. - After reviewing | | | the risks and benefits, the patient was deemed in satisfactory | | | condition to undergo the procedure. - Immediately prior to | | | administration of medications, the patient was re-assessed for | | | adequacy to receive sedatives. - The heart rate, respiratory | | | rate, oxygen saturations, blood pressure, adequacy of pulmonary | | | ventilation, and response to care were monitored throughout | | | the procedure. - The physical status of the patient was | | | re-assessed after the procedure. After obtaining informed | | | consent, the endoscope was passed under direct vision. | | | Throughout the procedure, the patient's blood pressure, pulse, | | | and oxygen saturations were monitored continuously. The endoscope was | | | introduced through the mouth, and advanced to the third part of | | | duodenum. The upper GI endoscopy was accomplished without | | | difficulty. The patient tolerated the procedure well.Findings: | | | The upper third of the esophagus, middle third of the esophagus, | | | lower third of the esophagus, lower esophageal sphincter and | | | gastroesophageal junction were normal. The Z-line was | | | regular and was found 40 cm from the incisors. Suspect | | | gastroparesis due to absence of peristalsis and patient | | | symptoms. Biopsies were taken with a cold forceps for Helicobacter | | | pylori testing using CLOtest. Verification of patient | | | identification for the specimen was done. Estimated blood loss | | | was minimal. Localized severe inflammation characterized by | | | erosions, erythema and friability was found in the gastric | | | antrum. The duodenal bulb, first part of the duodenum, 2nd part | | | of the duodenum, area of the papilla and 3rd part of the | | | duodenum were normal. Biopsies were taken with a cold forceps | | | for histology. Verification of patient identification for the | | | specimen was done. Estimated blood loss was minimal. The | | | retroflexed view confirmed previous findings,Impression: - | | | Normal upper third of esophagus, middle third of esophagus, lower | | | third of esophagus, lower esophageal sphincter and gastroesophageal | | | junction. - Z-line regular, 40 cm from the incisors. | | | - Gastroparesis, secondary to diabetes mellitus type I. Biopsied. | | | - Gastritis. - Normal duodenal bulb, first part of the | | | duodenum, 2nd part of the duodenum, area of the papilla and 3rd | | | part of the duodenum. Biopsied. - The retroflexed view | | | confirmed previous findings,Recommendation: - Written discharge | | | instructions were provided to the patient. - Discharge patient | | | to home (ambulatory). - Return to previous diet today. - | | | Continue present medications. - Await pathology results. - | | | Return to primary care physician as previously scheduled. - | | | Telephone GI clinic for pathology results in 1 week.Keaton Wakefield, | | | 04/17/2015 12:37 PMThis report has been signed electronically.Number | | | of Addenda: 0Note Initiated On: 04/17/2015 12:31 PM [facility]. | | | [facility], [address] [place] [address] | | | [phone] | | | - The retroflexed view confirmed previous findings, | | |Recommendation: | | | - Written discharge instructions were provided to the patient. | | | - Discharge patient to home (ambulatory). | | | - Return to previous diet today. | | | - Continue present medications. | | | - Await pathology results. | | | - Return to primary care physician as previously scheduled. | | | - Telephone GI clinic for pathology results in 1 week. | | |Keaton Wakefield MD | | |04/17/2015 12:37 PM | | |This report has been signed electronically. | | |Number of Addenda: 0 | | |Note Initiated On: 04/17/2015 12:31 PM | | | [facility], [address], [place] | | | [address] | | + + -+ + +---------+ + + | Performing | Address | City/State/[facility] | Phone Number | | Organization | | | | + +---------+ + + | [facility] | | | | + +---------+ + + Helicobactor pylori Biopsy (04/17/2015 12:14 PM PST) + + + + + + | Component | Value | Ref Range | Performed | Pathologist | | | | | At | Signature | + + + + + + | Helicobacte | Positive (A) | Negative | [facility] | | | r pylori Ag | | | [facility] | | | | | | [facility] | | | | | | [facility] - | | | | | | LABORATORY | | + + + + + + + + | Specimen | + + | Tissue - Entire | | pyloric antrum (body | | structure) | + + + + + + + | Performing | Address | City/State/Zipcode | Phone Number | | Organization | | | | + + + + + | [facility] | [address] | [place] | [phone] | | [facility] | | [address] | | | - LABORATORY | | | | + + + + + POC Glucose (04/17/2015 11:03 AM PST) + +-------+ + + + | Component | Value | Ref Range | Performed | Pathologist | | | | | At | Signature | + +-------+ + + + | Glucose, | 112 | 70 - 150 mg/dL | [facility] | | | POC | | | [facility] | | [...] [address] | [place] | [phone] | | [facility] | | [address] | | | - LABORATORY | | | | + + + + + CBC no Differential (04/17/2015 11:02 AM PST) + + + + + + | Component | Value | Ref Range | Performed | Pathologist | | | | | At | Signature | + + + + + + | White Blood | 9.8 | 4.0 - 11.0 K/uL | [facility] | | | Cells | | | [facility] | | | | | | [facility] | | | | | | C[facility] - | | | | | | LABORATORY | | + + + + + + | Red Blood | 4.66 | 3.70 - 5.20 | [facility] | | | Cells | | M/uL | [facility] | | | | | [facility] | | | | | | [facility] - | | | | | | LABORATORY | | + + + + + + | Hemoglobin | 13.9 | 11.5 - 16.0 | [facility] | | | | | g/dL | [facility] | | | | | [facility] | | | | | | [facility] - | | | | | | LABORATORY | | + + + + + + | Hematocrit | 42.5 | 34.0 - 47.0 % | [facility] | | | | | | [facility] | | | | | | [facility] | | | | | | [facility] - | | | | | | LABORATORY | | + + + + + + | MCV | 91.3 | 83.0 - 101.0 fL | [facility] | | | | | | [facility] | | | | | | [facility] | | | | | | [facility] - | | | | | | LABORATORY | | + + + + + + | MCH | 29.9 | 28.0 - 35.0 pg | [facility] | | | | | | [facility] | | | | | | [facility] | | | | | | C[facility] - | | | | | | LABORATORY | | + + + + + + | MCHC | 32.7 | 32.0 - 36.0 | [facility] | | | | | g/dL | [facility] | | | | | | [facility] | | | | | | CENTER - | | | | | | LABORATORY | | + + + + + + | RDW-CV | 18.9 (H) | <15.0 % | [facility] | | | | | | [facility] | | | | | | [facility] | | | | | | CENTER - | | | | | | LABORATORY | | + + + + + + | Platelet | 165 | 140 - 440 K/uL | [facility] | | | Count | | | [facility] | | | | | | [facility] | | | | | | CENTER - | | | | | | LABORATORY | | + + + + + + | MPV | 7.4 | fL | [facility] | | | | [...] [address] | [place] | [phone] | | [facility] | | [address] | | | - LABORATORY | | | | + + + + + POCT Test, Urine, Qual (04/17/2015 10:48 AM PST) + + + + + + | Component | Value | Ref Range | Performed | Pathologist | | | | | At | Signature | + + + + + + | | Negative | Negative | | | | Test, | | | | | | Urine, POC | | | | | + + + + + + | Specific | | 1.010, 1.015, | | | | [place], | | 1.020, 1.025 | | | | POC | | | | | + + + + + + | Internal QC | Acceptable | | | | + + + + + + | Lot Number | [id number] | | | | + + + + + + | Expiration | 2017- | | | | | Date | | | | | + + + + + + + + | Specimen | + + | Urine specimen | | (specimen) | + + Surgical Pathology Exam (04/17/2015 12:00 AM PST) + + | Specimen | + + | | + + + + + | Narrative | Performed At | + + + | SPECIMEN(S): A DUODENAL BIOPSY SPECIMEN SOURCE: A. DUODENAL | [facility] | | BIOPSY CLINICAL HISTORY: R11.2 (nausea with vomiting, | INCYTE | | unspecified), J69.0 (Pneumonitis due to inhalation of food and vomit), | | | E66.01 (morbid [severe] obesity due to excess calories) | | | MICROSCOPIC DESCRIPTION: Histologic sections of all submitted blocks | | | are examined by light microscopy. These findings, together with the | | | gross examination, support the pathologic diagnosis. FINAL | | | PATHOLOGIC DIAGNOSIS: Duodenum, biopsies: - No pathologic | | | abnormality. COMMENT: There is no evidence of celiac disease, | | | peptic duodenitis or other abnormality. BES:[facility]:C3NR GROSS | | | DESCRIPTION: Received in formalin labeled "Tiny Campuzano" and | | | "duodenal biopsy" on the requisition are multiple pink-santa tissue | | | fragments measuring from <0.1-0.4 cm, all in (A1). ka:RosVR:[facility] | | | PERFORMING LABORATORY: Tissue processing and slide preparation were | | | performed by [facility], [facility] | | | [place] [address] (Burlesque Dancer: Reilly Thomas M.D. CLIA#: | | | [id number]). Professional interpretation was performed by [employer] | | | [employer], [address], [place] [address] | | | (Burlesque Dancer: Reilly Thomas M.D.; CLIA#: [id number]). | | | Diagnostician: Daniel Briscoe MD Pathologist Electronically Signed | | | 04/18/2015 | | + + + + +---------+ + + | Performing | Address | City/State/Zipcode | Phone Number | | Organization | | | | + +---------+ + + | [place] [facility] | | | | | [facility] | | | | + +---------+ + + documented in this encounter Visit Diagnoses + + | Diagnosis | + + | Nausea and vomiting, vomiting of unspecified type - Primary | + + | BMI 50.0-59.9, adult (HCC) Body Mass Index 50.0-59.9, adult | + + documented in this encounter Administered Medications + +---------+ +------+-------+------+ | Medication Order | MAR | Action | Dose | Rate | Site | | | Action | Date | | | | + +---------+ +------+-------+------+ | lactated ringers (LR) infusion | New Bag | 04/17/19 | | 100 | | | at 100 mL/hr, Intravenous, | | 16 11:12 | | mL/hr | | | CONTINUOUS, Starting 04/17/15 | | AM PST | | | | | at 1100, Pre-op | | | | | | + +---------+ +------+-------+------+ +---+---+ | | | +---+---+ + +-------+ +------+---+---+ | ondansetron (ZOFRAN) 2 mg/mL | Given | 04/17/19 | 4 mg | | | | injection Starting 04/17/15 at | | 16 12:34 | | | | | 1234, For 1 dose, TORIBIO MARQUEZ: | | PM PST | | | | | caboliveriot override, | | | | | | + +-------+ +------+---+---+ +---+---+ | | | +---+---+ documented in this encounter
--- OUTSIDE RECORDS SUMMARY | ~2019-10-24 | XMS | Encounter Summary ---
Demographics + + + | Address | [address] | | | [place] [address] | + + + | Home Phone | | + + + | Preferred Language | Unknown | + + + | Marital Status | Single | + + + | Congregational Affiliation | 1041 | + + + | Race | Unknown | + + + | Ethnic Group | Unknown | + + + Author + + + | Author | [facility] | | | and [place] | + + + | Organization | [facility] | | | [...] Team Providers + +------+ + | Care Coverage Specialist Name | Role | Phone | + +------+ + | Julita Cabral PA-C | PCP | | + +------+ + Reason for Visit + +--------+ + | Reason | Onset | Comments | | | Date | | + +--------+ + | Procedure | 09/20/ | | | | 2019 | | + +--------+ + Encounter Details +--------+ + + + + | Date | Type | Department | Care Team | Description | +--------+ + + + + | 09/20/ | Telephone | [facility] | Jose Riojas MD | Procedure | | 2019 | | OTOLARYNGOLOGY [address] | [address] | | | | | [address] | [address] [facility] | | | | | [place] | [place] [address] | | | | | [address] | [phone] | | | | | [phone] | | | +--------+ + + + [...] Miscellaneous Notes Telephone Encounter - Cindy Doran, Data Administrator - 11/02/2018 3:38 PM PDTClosin g phone note due to patient not calling us back. elephone Encounter - Cindy Doran Medica l Steamer Tender - 10/13/2018 2:31 PM PDTI tired calling patient back but there was no answer an d you can't leave a message. Electronically signed by Cindy Doran Data Administrator amilcar t 10/13/2018 2:31 PM PDTTelephone Encounter - Su Goodwin - 10/07/2018 8:55 AM PDTP atient called to reschedule, says her ride did not show up and her phone was hacked and she was unable to cancel surgery and had to change her number. I updated her number in the syst em, please call her back at [phone]. Electronically signed by Su Goodwin at 09/14 8:57 AM PDTTelephone Encounter - Cindy Doran Data Administrator - 10/06/2018 8:20 AM PDTI tried calling patient to get her scheduled for surgery but someone answered th en hung up. I will try one more time. elephone Encounter - Su Goodwin - 09/20/2018 11:5 3 AM PDTPatient called and wants to reschedule the surgery she did not show up for on 09/07. Please call her back at [phone], she states this number was just changed as her origin al number was compromised. Changing this in the patients chart as well. Electronically sign ed by Su Goodwin at 09/20/2018 11:54 AM PDTdocumented in this encounter Plan of Treatment Not on filedocumented as of this encounter Visit Diagnoses Not on filedocumented in this encounter"
--- OUTSIDE RECORDS SUMMARY | ~2019-10-24 | XMS | Encounter Summary ---
Demographics + + + | Address | [address] | | | [place] [address] | + + + | Home Phone | | + + + | Preferred Language | Unknown | + + + | Marital Status | Single | + + + | Yarsani Affiliation | 1041 | + + + | Race | Unknown | + + + | Ethnic Group | Unknown | + + + Author + + + | Author | [facility] | | | and [place] | + + + | Organization | [facility] | | | [...] Team Providers + +------+ + | Care Recovery Coach Name | Role | Phone | + +------+ + | Julita Cabral PA-C | PCP | | + +------+ + Reason for Visit + +--------+ + | Reason | Onset | Comments | | | Date | | + +--------+ + | Procedure | 01/25/ | surgery date | | | 2019 | | + +--------+ + Encounter Details +--------+ + + + + | Date | Type | Department | Care Team | Description | +--------+ + + + + | 01/25/ | Telephone | [facility] | Cindy Doran | Procedure (surgery | | 2019 | | OTOLARYNGOLOGY [address] | M, Slab Worker | date ) | | | | [address] | | | | | | [place] | | | | | | [address] | | | | | | [phone] | | | +--------+ + + + [...] Miscellaneous Notes Telephone Encounter - Cindy Doran, Slab Worker - 01/25/2019 10:20 AM PSTCalled and spoke to patient to let her know that she will be checking in ThursdayFebruary 01 at 9:15 am. Nothing to eat or drink after midnight the night before. Make sure you have a frien d or family member to pick you up after surgery. Also that you are not taking any blood thin ners. P STdocumented in this encounter Plan of Treatment Not on filedocumented as of this encounter Visit Diagnoses Not on filedocumented in this encounter"
--- OUTSIDE RECORDS SUMMARY | ~2019-10-24 | XMS | Encounter Summary ---
Demographics + + + | Address | [address] | | | [place] [address] | + + + | Home Phone | | + + + | Preferred Language | Unknown | + + + | Marital Status | Single | + + + | Adventism Affiliation | 1041 | + + + | Race | Unknown | + + + | Ethnic Group | Unknown | + + + Author + + + | Author | [facility] | | | and [place] | + + + | Organization | [facility] | | | and [...] Team Providers + +------+ + | Care Electrical Line Splicer Name | Role | Phone | + +------+ + | Julita Cabral PA-C | PCP | | + +------+ + Reason for Visit + +--------+ + | Reason | Onset | Comments | | | Date | | + +--------+ + | Insurance | 03/01/ | | | Authorization | 2018 | | + +--------+ + Encounter Details +--------+ + + + + | Date | Type | Department | Care Team | Description | +--------+ + + + + | 03/01/ | Telephone | [facility] | [facility], | Insurance | | 2017 | | GASTROENTEROLOGY | [address] | Authorization | | | | [address] | [facility] [address] | | | | | [address] [place], [place] | [place], [place] | | | | | [address] | [address] | | | | | [phone] | | | +--------+ + + + [...] Notes Telephone Encounter - Iveth Chappell - 03/01/2018 12:59 PM PST1st attempt: LVM for Yesica remy to get auth for apt with [facility] on 03/23Electronically signed by Iveth Chappell at 018 12:59 PM PSTdocumented in this encounter Plan of Treatment Not on filedocumented as of this encounter Visit Diagnoses Not on filedocumented in this encounter"
--- OUTSIDE RECORDS SUMMARY | ~2019-10-24 | XMS | Encounter Summary ---
Demographics + + + | Address | [address] | | | [place] [address] | + + + | Home Phone | | + + + | Preferred Language | Unknown | + + + | Marital Status | Single | + + + | Oriental Orthodox Affiliation | 1041 | + + + [...] Team Providers + +------+ + | Care Installation Technician Name | Role | Phone | + [...] + + | 01/05/ | Telephone | [facility] | [facility] | LABS | | 2019 | | GASTROENTEROLOGY | [address] | | | | | [address] | [address] | | | | | [address] [place], [place] | [place] | | | | | [address] | [address] | | | | | [phone] | | | +--------+ + + + [...] Chappell - 01/05/2019 8:20 AM [facility] they had not received a fax of lab orders from [facility]. I went ahead and printed out the ord ers from [facility] and faxed them to [phone].Electronically signed by Iveth Chappell at 8:22 AM PDTdocumented in this encounter Plan of Treatment Not on filedocumented as of this encounter Visit Diagnoses Not on filedocumented in this encounter"
--- OUTSIDE RECORDS SUMMARY | ~2019-10-24 | XMS | Encounter Summary ---
Demographics + + + | Address | [address] | | | [place] [address] | + + + | Home Phone | | + + + | Preferred Language | Unknown | + + + | Marital Status | Single | + + + | Quaker Affiliation | 1041 | + + + | Race | Unknown | + + + | Ethnic Group | Unknown | + + + Author + + + | Author | [facility] | | | and [place] | + + + | Organization | [facility] | | | [...] Team Providers + +------+ + | Care Utility Technician Name | Role | Phone | [...] [address] | [address] | ascites (HCC) | | | | [address] [place], [place] | [place], [place] | (Primary Dx) | | | | [address] | [address] | | | | | [phone] | | | +--------+ + + + [...] + documented as of this encounter Progress Lupe Wilks RN - 07/08/2018 8:34 AM PDTEthyl Glucuronide and Ethyl Sulfate UA ordered for every 2 weeks, and [facility] documented in this encounter Plan of Treatment [...]
--- OUTSIDE RECORDS SUMMARY | ~2019-10-24 | XMS | Encounter Summary ---
Demographics + + + | Address | [address] | | | [place] [address] | + + + | Home Phone | | + + + | Preferred Language | Unknown | + + + | Marital Status | Single | + + + | Adventist Affiliation | 1041 | + + + [...] Team Providers + +------+ + | Care Manager Relationship Name | Role | Phone | + [...] | | vomiting, | | [address], | | | | | vomiting of | | [address] | | | | | unspecified | | [place], | | | | | type | | [place] [address] | | | | | Aspiration | | Phone: | | | | | pneumonia | | [phone] | | | | | due to | | Fax: | | | | | gastric | | [phone] | | | | | secretions | [...] | | | | | [address] | [place] | | | | | [place] | [address] | | | | | [address] | | | | | | [phone] | | | +--------+ + + + [...] + + | Periph | 04/17/15; 1105; [id number]-agahbl | 04/17/15 1105 by | 04/17/15 1400 by | | eral | catheter system; 20 gauge, 1 03/19 | Alayna Correa, | Amber Ferris [...] encounter OR Notes Anesthesia Postprocedure Evaluation - Robret Gan MD - 04/17/2015 12:33 PM PSTFormatti ng of this note might be different from the original. ANESTHESIA POSTANESTHESIA EVALUATION Tiny Campuzano 39 y.o. female 1975 [id number] Procedure(s) EGD (N/A Mouth) Filed Vitals: 04/17/15 [...] signed by Robert Gan MD 04/17/2015 12:[address] [facility] nesthesia Preprocedu re Evaluation - Robert Gan MD - 04/16/2015 3:24 PM PSTFormatting of this note might b e different from the original. ANESTHESIA PREANESTHESIA EVALUATION Tiny Campuzano 39 y.o. female 1975 [id number] Procedure(s): EGD (N/A Mouth) Medical history, anesthesia, [...] in this en counter Plan of Treatment Not on filedocumented as [...] mg | | | | PRN, Starting 04/17/15 at 1205, | | 16 12:05 [...]
--- OUTSIDE RECORDS SUMMARY | ~2019-10-24 | XMS | Encounter Summary ---
Demographics + + + | Address | [address] | | | [place] [address] | + + + | Home Phone | | + + + | Preferred Language | Unknown | + + + | Marital Status | Single | + + + | Temple Affiliation | 1041 | + + + | Race | Unknown | + + + | Ethnic Group | Unknown | + + + Author + + + | Author | [facility] | | | and [place] | + + + | Organization | [facility] | | | [...] Team Providers + +------+ + | Care Carry In Worker Name | Role | Phone | [...] + + | Closed | Specialty | Gastroenterol | Diagnoses | Harri, | Harri, | | | Services | ogy | Dysphagia, | Keaton Duran MD | Keaton Duran MD | | | Required | | unspecified | [address], | | | | | Nausea with | [place], [place] | [address] | | | | | vomiting, | [address] [place] | [place], | | | | | unspecified | [place], [place] | [place] [address] | | | | | Opioid | [address] | Phone: | | | | | dependence, | Phone: | [phone] | | | | | uncomplicate | [phone] | Fax: | | | | | d (HCC) | Fax: | [phone] | | | | | Pneumonitis | [phone] | | | | | | due to | | | | | | | inhalation | | | | | | | of food and | | | | | | | vomit (HCC) | | | | | | | Procedures | | | | | | | [place] | | | | | | | ESOPHAGOGAST | | | | | | | RODUODENOSCO | | | | | | | PY TRANSORAL | | | | | | | DIAGNOSTIC | | | | | | | [place] EDG | | | | | | | TRANSORAL | | | | | | | BIOPSY | | | | | | | SINGLE/MULTI | | | | | | | PLE [place] | | | | | | | ANESTH,UGI | | | | | | | ENDOSCOPY H | | | +--------+ + + + + + Reason for Visit + + + | Reason | Comments | + + + | Abdominal Pain | | + + + | Emesis | | + + + | Nausea | | + + + Evaluate & Treat (Routine) +--------+--------+ + + + + | Status | Reason | Specialty | Diagnoses / | Referred By | Referred To | | | | | Procedures | Contact | Contact | +--------+--------+ + + + + | Closed | | Gastroenterol | Diagnoses | Bourret, | [facility] | | | | ogy | Abdominal | Julita H, | Gastroenterol | | | | | pain, | PA-C [address] | ogy [address] | | | | | nausea, | [address] | | | | | vomiting | [place] | [address] [place] | | | | | Procedures | [address] | [place], [place] | | | | | 03/12>PEND | [place], | [address] | | | | | [facility] | [place] | Phone: | | | | | Office visit | [address] | [phone] | | | | | | Phone: | Fax: | | | | | | [phone] | [phone] | | | | | | Fax: | | | | | | | [phone] | | +--------+--------+ + + + + Encounter Details +--------+---------+ + + + | Date | Type | Department | Care Team | Description | +--------+---------+ + + + | 04/05/ | Office | [facility] | Keaton Wakefield MD | Dysphagia, | | 2016 | Visit | GASTROENTEROLOGY | [address], [place] | unspecified | | | | [address] | [address] [place], [place] | dysphagia; Opioid | | | | [address] [place], [place] | [address] | type dependence, | | | | [address] | | continuous (HCC); | | | | [phone] | | Nausea and vomiting, | | | | | | vomiting of | | | | | | unspecified type; | | | | | | Morbid obesity due | | | | | | to excess calories | | | | | | (HCC); Aspiration | | | | | | pneumonia, | | | | | | unspecified | | | | | | aspiration pneumonia | | | | | | type, unspecified | | | | | | laterality, | | | | | | unspecified part of | | | | | | lung (HCC) | +--------+---------+ + + + Social History [...] + + + | Blood Pressure | 118/66 | 04/05/2015 2:21 PM | | | | | PST | | + + + + + | Pulse | 94 | 04/05/2015 2:21 PM | | | | | PST | | + + + + + | Temperature | - | - | | + + + + + | Respiratory Rate | 16 | 04/05/2015 2:21 PM | | | | | PST | | + + + + + | Oxygen Saturation | 98% | 04/05/2015 2:21 PM | | | | | PST | | + + + + + | Inhaled Oxygen | - | - | | | Concentration | | | | + + + + + | Weight | 147.4 kg (325 lb) | 04/05/2015 2:21 PM | | | | | PST | | + + + + + | Height | 172.7 cm (5' 8") | 04/05/2015 2:21 PM | | | | | PST | | + + + + + | Body Mass Index | 49.42 | 04/05/2015 2:21 PM | | | | | PST | | + + + + + documented in this encounter Progress Notes Keaton Wakefield MD - 04/05/2015 3:01 PM PST Subjective: Patient ID: Tiny [...] lesion removel 10/30/10 Biopsy of uterus lining 10-14-10 Tonsillectomy and adenoidectomy 10-08-89 Appendectomy 03/02/2015 Family [...] and well-nourished. No distress. Morbid obesity B LA 49.4 HENT: Head: Normocephalic and atraumatic. Right [...] normal. Nursing note and vitals reviewed. 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 documented in this enc nt Miscellaneous Notes Addendum Note - Arabella Mena RN - 04/05/2015 4:05 PM PST Addended by: ARABELLA MENA on: 04/05/2015 16:05 Modules accepted: Orders documented in this encounter Plan of Treatment + + +--------+ + + | Name | Type | Priori | Associated Diagnoses | Order Schedule | | | | ty | | | + + +--------+ + + | Procedure | Outpatient | Routin | Nausea and | Expected: 04/17/2015 | | [id number] | Referral | e | vomiting Morbid | (Approximate), | | | | | obesity due to | Expires: 04/04/2016 | | | | | excess calories | | | | | | (HCC) Aspiration | | | | | | pneumonia, | | | | | | unspecified | | | | | | aspiration pneumonia | | | | | | type, unspecified | | | | | | laterality, | | | | | | unspecified part of | | | | | | lung (HCC) | | + + +--------+ + + documented as of this encounter Visit Diagnoses + + | Diagnosis | + + | Dysphagia, unspecified dysphagia | + + | Opioid type dependence, continuous (HCC) Opioid type dependence, continuous | + + | Nausea and vomiting, vomiting of unspecified type | + + | Morbid obesity due to excess calories (HCC) | + + | Aspiration pneumonia, unspecified aspiration pneumonia type, unspecified laterality, | | unspecified part of lung (HCC) | + + documented in this encounter
--- OUTSIDE RECORDS SUMMARY | ~2019-10-24 | XMS | Encounter Summary ---
Demographics + + + | Address | [address] | | | [place] [address] | + + + | Home Phone | | + + + | Preferred Language | Unknown | + + + | Marital Status | Single | + + + | Orthodox Affiliation | 1041 | + + [...] Team Providers + +------+ + | Care Quality Control Microbiologist Name | Role | Phone | + [...] failure, | PharmD [address] | | | | | unspecified | [address] | [place], | | | | | HF | [place] | [place] | | | | | chronicity, | [place], [place] | [address] | | | | | unspecified | [address] | Phone: | | | | | heart | Phone: | [phone] | | | | | failure type | [phone] | Fax: | | | | | ([facility]) | [phone] | [phone] | | | | | Procedures | | | | | | | DIABETES TERRITORY MANAGER | | | +--------+ + + + [...] HF | | | | [address] [place] | [address] [place] | chronicity, | | | | [place] [address] | [place] [address] | unspecified heart | | | | [phone] | [phone] | failure type (HCC) | | | [...] +--------+ + + | AMB [place] TO [facility] | Outpatient | Routin | Heart failure, | Ordered: 05/07/2018 | | [place] [facility] | Referral | e | [...]
--- OUTSIDE RECORDS SUMMARY | ~2019-10-24 | XMS | Encounter Summary ---
Demographics + + + | Address | [address] | | | [place] [address] | + + + | Home Phone | | + + + | Preferred Language | Unknown | + + + | Marital Status | Single | + + + | Catholic Affiliation | 1041 | + + + | Race | Unknown | + + + | Ethnic Group | Unknown | + + + Author + + + | Author | [facility] | | | and [place] | + + + | Organization | [facility] | | | and [place] | + + + | Address | Unknown | + + + | Phone | Unavailable | + + + Support + + +---------+ + | Name | Relationship | Address | Phone | + + +---------+ + | Pairsa Reyes | ECON | Unknown | | + + +---------+ + | Sandra Oro | ECON | Unknown | | + + +---------+ + Care Team Providers + +------+ + | Care Bookie Name | Role | Phone | + +------+ + | Julita Cabral PA-C | PCP | | + +------+ + Reason for Visit + +--------+ + | Reason | Onset | Comments | | | Date | | + +--------+ + | Procedure | 07/21/ | surgery date | | | 2019 | | + +--------+ + Encounter Details +--------+ + + + + | Date | Type | Department | Care Team | Description | +--------+ + + + + | 07/21/ | Telephone | [facility] | Jose Riojas MD | Procedure (surgery | | 2019 | | OTOLARYNGOLOGY [address] | [address] | date ) | | | | [address] | [address] [facility] | | | | | [address] [place] | [place] [address] | | | | | [address] | [phone] | | | | | [phone] | | | +--------+ + + + [...] Miscellaneous Notes Telephone Encounter - Cindy Doran, Institution Librarian - 08/03/2018 2:49 PM PDTCalled and spoke to patient to get her scheduled for surgery. Patient has been scheduled for surge ry ThursdaySeptember 07. Post op has been made and information has been sent.Electronically sig brett by Cindy Doran, Institution Librarian at 08/03/2018 2:50 PM PDTTelephone Encounter - Iveth Chappell - 07/30/2018 1:53 PM PDTPatient called in checking on the status of sched uling, advised her of Cindy's note, best number [phone] she thinks vm is set up. She s aid she didn't have minutes for a week so that may be why you couldn't reach her. Electronic ally signed by Iveth Chappell at 07/30/2018 1:54 PM PDTTelephone Encounter - Jorden Doran, Institution Librarian - 07/21/2018 2:07 PM PDTI tried calling patient to get her schedu led for surgery but there was no answer the 2 times I tried calling and you can't leave a me ssage. documented in this encounter Plan of Treatment Not on filedocumented as of this encounter Visit Diagnoses Not on filedocumented in this encounter"
--- OUTSIDE RECORDS SUMMARY | ~2019-10-24 | XMS | Encounter Summary ---
Demographics + + + | Address | [address] | | | [place] [address] | + + + | Home Phone | | + + + | Preferred Language | Unknown | + + + | Marital Status | Single | + + + | Catholic Affiliation | 1041 | + + + | Race | Unknown | + + + | Ethnic Group | Unknown | + + + Author + + + | Author | [facility] | | | and [place] | + + + | Organization | [facility] | | | [...] Team Providers + +------+ + | Care Legal Biller Name | Role | Phone | + +------+ + | Julita Cabral PA-C | PCP | | + +------+ + Reason for Visit +--------+ + | Reason | Comments | +--------+ + | Other | cirrhosis | +--------+ + Evaluate & Treat (Routine) +--------+--------+ + + + + | Status | Reason | Specialty | Diagnoses / | Referred By | Referred To | | | | | Procedures | Contact | Contact | +--------+--------+ + + + + | Closed | | Gastroenterol | Diagnoses | Misha, | Ashu, | | | | felisha | CL | Julita Duval, | Keaton Duran MD | | | | | (cirrhosis | PA-C [address] | [address], | | | | | of liver) | [address] | [address] | | | | | (HCC) | [place] | DARRYL ANDREWS, | | | | | Procedures | [address] | [place] [address] | | | | | office visit | [place], | Phone: | | | | | | [place] | [phone] | | | | | | [address] | Fax: | | | | | | Phone: | [phone] | | | | | | [phone] | | | | | | | Fax: | | | | | | | [phone] | | +--------+--------+ + + + + Encounter Details +--------+---------+ + + + | Date | Type | Department | Care Team | Description | +--------+---------+ + + + | 07/07/ | Office | [facility] | [facility], | Alcoholic cirrhosis | | 2019 | Visit | GASTROENTEROLOGY | [address] | of liver without | | | | [address] | [address] | ascites (HCC) | | | | [address] [place], [place] | [place], [place] | (Primary Dx); | | | | [address] | [address] | Anemia, unspecified | | | | [phone] | | type; Hypokalemia; | | | | | | Thrombocytopenia | | | | | | (HCC) | +--------+---------+ + + + Social [...] + + + + | Pulse | 72 | 07/07/2018 10:48 AM | | | | | PDT | | + + + + + | Temperature | 36.7 C (98 F) | 07/07/2018 10:48 AM | | | | | PDT | | + + + + + | Respiratory Rate | 16 | 07/07/2018 10:48 AM | | | | | PDT | | + + + + + | Oxygen Saturation | 100% | 07/07/2018 10:48 AM | | | | | PDT | | + + + + + | Inhaled Oxygen | - | - | | | Concentration | | | | + + + + + | Weight | 132.4 kg (291 lb | 07/07/2018 10:48 AM | | | | 14.2 oz) | PDT | | + + + + + | Height | - | - | | + + + + + | Body Mass Index | 44.38 | 04/23/2018 12:12 PM | | | | | PST | | + + + + + documented in this encounter Patient Instructions Patient Instructions Anastasia Guillory ARNP - 07/07/2018 11:00 AM PDTCirrhosis ? MELD score- an indication of severity of liver disease ? Ultrasound and Lab (CBC, CMP, PT/INR, Alpha fetoprotein) tests every 6 months. ? Low/No salt diet, less than 2 grams per day ? Upper endoscopy to screen for esophageal varices- if large discuss treatment options, suc h as Beta bertrand or endoscopic therapy ? Avoid ALL alcohol and ALL marijuana ? Avoid NSAIDS ? Tylenol 2 grams daily is generally safe ? Small, frequent, nutritious meals throughout the day ? Multivitamins without extra iron everyday ? Watch for signs of encephalopathy- confusion, sleep all day, awake all night, disorientat ion ? Watch for signs of ascites- fluid build-up in abdominal cavity ? Individuals with ascites need to be aware of signs of infection- fevers, chills, muscle a ches. May be life threatening condition called Spontaneous Bacterial Peritonitis ? Avoid Herbal Medications such as: camphor, chaparral, comfrey, kava, pennyroyal, skullcap , and ma-blanco ? Ensure immunizations are up to date, including influenza, pneumonia, and Hepatitis B ? Take Calcium with Vitamin D for bone health ? Take Vitamin D 1000 IU daily ? 2-3 cups of caffeinated coffee has been shown to promote liver health. You need to sign up for substance abuse treatment in order to be referred for liver transpl antation evaluation. Urine test done at [facility] every other week. Labs to be done with next urine test. Need to schedule EGD and colonoscopy after you are cleared by heart doctor. documented in this encounter Progress Notes Anastasia Guillory ARNP - 07/07/2018 11:00 AM PDTFormatting of this note might be differe nt from the original. PATIENT NAME: Tiny Campuzano : 1975: AGE: 43 y.o. REFERRED BY: Julita Cabral PRIMARY CARE: Julita Cabral PA-C Subjective: CHIEF COMPLAINT: Tiny Campuzano is a 43 y.o. female referred by Julita Cabral PA-C for evaluation and treatment of alcoholic cirrhosis of liver. HISTORY OF PRESENT ILLNESS: She reports that she was initially diagnosed with cirrhosis of liver about 7 years ago. She had been drinking alcohol daily. She reports that she was drinking about 9, 40 ounce beers daily. She reports that she has not drank alcohol since 01/04/2018. She initially was initially seen in the ED in [facility] for abdominal pain and swelling 2017. She went home and was readmitted to the hospital 03/2018. She was then hospitalized in [place]. She was was hospitalized for 22 days. She was then readmitted to the hospital here at [facility] 04/23/2018. She was admitted from 04/23 -05/06/2018. She was appropriately diuresed due to anasarca. She has been feeling fairly well since discharge. She has appointment with cardiology 07/27/2018. She has lost an additional 9 lbs since discharge. Last EGD was 2016. There were no varices noted. She reports that she has been tested for HCV and HIV. These both are reported as negative. Last documented hemoglobin A1c was 4.7. DO not have record of cholesterol. Patient is obese . Denies personal or family history of autoimmune diseases or colon cancer. Denies ascites, jaundice, hematemesis, peripheral edema, sleep changes, or confusion. She reports blood with every bowel movements. She does have issues with constipation. She has been taken off lactulose. She is now using Miralax for constipation. She is now hav ing a BM once every 2-3 days. MEDICAL, SURGICAL, AND PERSONAL HISTORY: Vitals: 07/07/18 1048 BP: 148/72 Pulse: 72 Resp: 16 Temp: 36.7 C (98 F) PainSc: 1 PainLoc: Back No Known Allergies Past Medical History: Diagnosis Date Abnormal liver [...] Procedure: EGD; Surgeon: Keaton Wakefield MD; Location: [facility] Family History Family history unknown: Yes Social History Socioeconomic History Marital status: Single Spouse name: Not on file Number of children: Not on file Years of education: Not on file Highest education level: Not on file Social Needs Financial resource strain: Not on file Food insecurity - worry: Not on file Food insecurity - inability: Not on file Transportation needs - medical: Not on file Transportation needs - non-medical: Not on file Occupational History Not on file Tobacco Use Smoking status: Never Smoker Smokeless tobacco: Never Used Substance and Sexual Activity Alcohol use: No Alcohol/week: 0.0 oz Comment: stopped 01-08-18 Drug use: Yes Types: Marijuana Comment: states occasionally Sexual activity: Not on file Other Topics Concern Not on file Social History Narrative Not on file Review of Systems Constitutional: Negative for diaphoresis, fatigue, fever and unexpected weight change. HENT: Positive for rhinorrhea. Negative for congestion, hearing loss, mouth sores and troub le swallowing. Eyes: Negative for redness and visual disturbance. Respiratory: Positive for shortness of breath. Negative for cough, choking, chest tightness and wheezing. Cardiovascular: Positive for chest pain and leg swelling. Negative for palpitations. Gastrointestinal: Negative for abdominal distention, abdominal pain, anal bleeding, blood i n stool, constipation, diarrhea, nausea, rectal pain and vomiting. Endocrine: Denies enlarged thyroid Genitourinary: Negative for dysuria, flank pain and frequency. Musculoskeletal: Negative for arthralgias, back pain and joint swelling. Skin: Positive for rash. Negative for color change. Neurological: Positive for weakness, numbness and headaches. Negative for seizures and sync ope. Hematological: Does not bruise/bleed easily. Complains of anemia. Denies enlarged lymph glands. Psychiatric/Behavioral: Positive for dysphoric mood. The patient is nervous/anxious. Objective: Physical Exam Constitutional: She is oriented to person, place, and time. She appears well-developed and well-nourished. Appears chronically ill HENT: Head: Normocephalic and atraumatic. Eyes: EOM are normal. No scleral icterus. Neck: Normal range of motion. Neck supple. Cardiovascular: Normal rate, regular rhythm and normal heart sounds. Pulmonary/Chest: Effort normal and breath sounds normal. No respiratory distress. She has n o wheezes. Abdominal: Soft. Normal appearance and bowel sounds are normal. She exhibits no ascites and no mass. There is no splenomegaly or hepatomegaly. There is generalized tenderness. There i s no rigidity, no rebound, no guarding and negative Frank's sign. Musculoskeletal: Normal range of motion. She exhibits no edema (trace-1+ pitting lower extr emity edema) or deformity. Neurological: She is alert and oriented to person, place, and time. Mild asterixis Skin: Skin is warm and dry. No rash noted. Psychiatric: She has a normal mood and affect. Her behavior is normal. Nursing note and vitals reviewed. No visits with results within 1 Month(s) from this visit. Latest known visit with results is: Admission on 04/23/2018, Discharged on 05/06/2018 No results displayed because visit has over [address] abdomen pelvis wo contrast 04/23/2018: IMPRESSION - 1. Cirrhosis with sequelae of [...] tissues most compatible with edema/anasarca versus cellulitis. Assessment: 1. Alcoholic cirrhosis of liver without ascites (HCC) CBC with Differential Comprehensive Metabolic Panel Iron and Transferrin 2. Anemia, unspecified type 3. Hypokalemia 4. Thrombocytopenia (HCC) Plan: Alcoholic cirrhosis of liver: Patient is to continue to avoid all alcohol. Highly encourag e patient to enroll in substance abuse treatment. Substance abuse treatment will be especia lly useful if patient is ever interested in liver transplantation. Cirrhosis: Based upon the most recent laboratory studies and my examination today, the enrico ent has a model for end-stage liver disease (MELD) score 15 and a Suly score of 8, which i s Suly class B. APRI Lab Results Component Value Date AST 34 05/03/2018 ALT 14 05/03/2018 PLT 117 (L) 05/03/2018 ALBUMIN 2.3 (L) 05/03/2018 MELD Lab Results Component Value Date INR 1.5 (H) 04/25/2018 BILITOT 1.5 05/03/2018 CREA 1.07 05/06/2018 NA 135 (L) 05/06/2018 Liver Transplantation: Patient is interested in being referred for evaluation of liver gambino splantation. Varices: Patient has had EGD to screen for esophageal varices. There is no known history or variceal bleed. Patient to call once she has been evaluated by oil bay technician. Will need to schedule EGD and colonoscopy after cardiac evaluation. Ascites/Anasarca: Patient does have a history of ascites. Patient is on diuretics. This is controlling fluid overload. Discussed no salt diet (<2 grams per day). Encouraged small frequent meals with protein. Hepatic Encephalopathy: Patient does have evidence of encephalopathy. Current treatment inc ludes none. 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 There is evidence that enrico ents with minimal encephalopathy have higher rates of car accidents. Because there is no accurate method of measuring HE. Patient is advised not to drive. Prescription for lactulose sent to pharmacy. Hepatocellular Carcinoma Screening: Patient is at increased risk of developing HCC. Patien t will need liver ultrasound, CBC, CMP, INR, and AFP every 6 months. Metabolic Bone Disease: detention Cirrhotics are at increased risk of developing osteopenia and osteoporosis. Oral bisphosphonates have been shown to increase the risk of variceal ble eding in patients with known varices. IV bisphosphonates are recommended. Recommend DEXA sca ns and treatment if needed by PCP. Insulin Resistance/Diabetes: Approximately 30% of cirrhotic patients will develop insulin r esistance or diabetes. Recommend routine screening and treatment by PCP. Vaccinations: Patient should remain up to date with immunizations. All patients with chroni c liver disease should have Hepatitis A and Hepatitis B vaccinations complete if not already immune. To be done with PCP. Pain Management: Patients with cirrhosis should NOT use NSAIDS. These are associated with h igher rate of renal insufficiency and GI bleeding. We prefer these patient to use acetaminop hen for pain control with a maximum dose of 2 grams per day. The use of narcotics should als o be kept to a minimum, as this can cause or exacerbate hepatic encephalopathy. Ultram or no n-narcotic regimens, such as TCAs or neurontin are preferred if acetaminophen is inadequate. With decompensation of liver disease Ultram needs to be dose reduced. Smoking Cessation: This patient is currently not smoking. Discussed cessation. When patient is ready to stop smoking buproprion or nicotine patches are safe. Discuss further with PCP. Will follow up with results. Patient is to call with any question or concerns. Any fevers, chills, chest pain, SOB or other serious symptoms patient is to call the office or go to ER . Cc: Julita Cabral PA-C This note was dictated using voice recognition software. Please contact me if there are an y questions regarding its content. documented in t his encounter Plan of Treatment + +------+--------+ + + | Name | Type | Priori | Associated Diagnoses | Order Schedule | | | | ty | | | + +------+--------+ + + | CBC with | Lab | Routin | Alcoholic | 1 Occurrences | | Differential | | e | cirrhosis of liver | starting 07/07/2018 | | | | | without ascites | until 11/04/2018 | | | | | (HCC) | | + +------+--------+ + + | Comprehensive | Lab | Routin | Alcoholic | 1 Occurrences | | Metabolic Panel | | e | cirrhosis of liver | starting 07/07/2018 | | | | | without ascites | until 11/04/2018 | | | | | (HCC) | | + +------+--------+ + + | Iron and Transferrin | Lab | Routin | Alcoholic | 1 Occurrences | | | | e | cirrhosis of liver | starting 07/07/2018 | | | | | without ascites | until 11/04/2018 | | | | | (HCC) | | + +------+--------+ + + documented [...]
--- OUTSIDE RECORDS SUMMARY | ~2019-10-24 | XMS | Encounter Summary ---
Demographics + + + | Address | [address] | | | [place] [address] | + + + | Home Phone [...] + + + | Author | [facility] | | | and [place] | + + + | Organization | [facility] | | | [...] Team Providers + +------+ + | Care Joggle Press Operator Name | Role | Phone | + +------+ + | Julita Cabral PA-C | PCP | | + +------+ + Reason for Visit + +--------+ + | Reason | Onset | Comments | | | Date | | + +--------+ + | Procedure | 18/ | | | | 2019 | | + +--------+ + | Appointment | 01/31/ | | | | 2018 | | + +--------+ + Encounter Details +--------+ + + + + | Date | Type | Department | Care Team | Description | +--------+ + + + + | 01/31/ | Telephone | [facility] | Jose Riojas MD | Procedure; | | 2018 | | [address]ARYNGOLOGY [address] | [address] | Appointment | | | | [address] | [address] [facility] | | | | | [place] [place] | [place] [address] | | | | | [address] | [phone] | | | | | [phone] | | | +--------+ + + + [...] encounter. elep milagros Encounter - Cindy Doran, Binder Chainstitch - 05/17/2019 12:46 PM PSTPlease call patient to have er see since she has no showed and cancelled so many times for surg mary. Telephone Encounter - Iveth Chappell - 05/12/2019 7:38 AM PSTReferral is now approved, d o you want us to call her to schedule or wait for her to call us. elephone Encounter - Cindy Doran, Binder Chainstitch - 04/06/2019 1:20 PM PSTReferral still pending elephone Encounter - Cindy Doran Binder Chainstitch - 03/24/2019 2:14 PM PSTReferral still pending. elephone Encounter - Iveth Stringer - 02/17/2019 8:23 AM PSTPatient called in to schedule surgery, I advised her that we were working on getting authorization for her surgery. I told her to wait for our ph one call. Her phone number has been updated again. elephone Encounter - Cindy Doran, Binder Chainstitch - 05/2018 2:14 PM PSTChecking on Auth with Jewel then I will call the patient to schedule. El ectronically signed by Cindy Doran Binder Chainstitch at 02/15/2019 2:15 PM PSTTeleph one Encounter [...] Please advise and call her back at [phone] signed by Pau panda at 02/04/2019 8:18 AM PSTTelephone Encounter - Cindy Doran, Binder Chainstitch - 2:29 PM PSTCalled and left message [...] from 09/20/18). Please call her back at [phone] signed by Su Goodwin at 02/03/2019 2:08 PM PSTTelephone Encounter - Iveth Chappell - 01/31/2019 1:06 PM PSTPati ent called in to cancel her procedure, she said that she is so sick and stuffed up she just doesn't think she can make it in. She asked that her call her back on her "neighbors" or her brother in law at [phone]. She said her phone was disconnected by [employer] because nuzhat javierne hacked in. document ed in this encounter Plan of Treatment Not on filedocumented as of this encounter Visit Diagnoses Not on filedocumented in this encounter
--- OUTSIDE RECORDS SUMMARY | ~2019-10-24 | XMS | Encounter Summary ---
Demographics + + + | Address | [address] | | | [place] [address] | + + + | Home Phone [...] Team Providers + +------+ + | Care Publicist Name | Role | Phone | + [...] + + | 01/19/ | Telephone | [facility] | [facility], | Imaging | | 2019 | | GASTROENTEROLOGY | [address] | | | | | [address] | [address] | | | | | [address] [place], [place] | [place] | | | | | [address] | [address] | | | | | [phone] | | | +--------+ + + + [...] at 8AM . Michael's fax number is [phone] lectronically signed by Iveth Chappell at 01/19/2019 8:16 AM PSTdocumented in this encoun ter Plan of Treatment Not on filedocumented as of this encounter Visit Diagnoses Not on filedocumented in this encounter"
--- OUTSIDE RECORDS SUMMARY | ~2019-10-24 | XMS | Encounter Summary ---
Demographics + + + | Address | [address] | | | [place] [address] | + + + | Home Phone [...] Team Providers + +------+ + | Care Frit Maker Name | Role | Phone | [...] + + | 05/07/ | Telephone | [facility] | Irma Cason, | Hospital Follow-up | | 2019 | | [facility] | PharmD [address] | | | | | [address] [place] | [facility] | | | | | [place] [address] | [place] [address] | | | | | [phone] | | +--------+ + + + + [...] KRISTIE COLINDRES HAS REFERRAL TO CARDIOLOGY AT [facility] SPOKE WITH ALLEN AT MIRANDA CABRAL'S OFFICE AND SHE STATES THEY ALREADY HAVE A REFERRAL I N PLACE FOR CARDIOLOGY AT [facility]. PT HAS NOT BEEN SCHEDULED YET BUT THEY ARE WORKING ON. [phone] CC: CARDIOLOGY RENAL CASE MANAGER STAFF - IN BASKET NOTE ON REFERRAL FROM MIRANDA IN AUTHORIZATIONS [id number] signed by Ewa doe at 05/21/2018 11:10 [...] answer: Does not know (missed call from [facility] during the nap) Appointment date: 05/[address] Cabral 11. Does the patient have transportation to get to their appointment? Yes 12. Do you have any other concerns about your discharge? No 13. Patient does express interest in Heart Failure Clinic at [facility]. Length of phone call: 12 minutes documented in thi s encounter Plan of Treatment Not on filedocumented as of this encounter Visit Diagnoses Not on filedocumented in this encounter"
--- OUTSIDE RECORDS SUMMARY | ~2019-10-24 | XMS | Encounter Summary ---
Demographics + + + | Address | [address] | | | [place] [address] | + + + | Home Phone | | + + + | Preferred Language | Unknown | + + + | Marital Status | Single | + + + | Congregational Affiliation | 1041 | + + + | Race | Unknown | + + + | Ethnic Group | Unknown | + + + Author + + + | Author | [facility] | | | and [place] | + + + | Organization | [facility] | | | [...] Team Providers + +------+ + | Care Furniture Decals Inspector Name | Role | Phone | [...] + + | 01/18/ | Telephone | [facility] | [facility], | Imaging (ultrasound | | 2018 | | GASTROENTEROLOGY | FRANK [address] | needs scheduled) | | | | [address] | [address] | | | | | [address] [place], [place] | [place], [place] | | | | | [address] | [address] | | | | | [phone] | | | +--------+ + + + [...] AM PSTSpoke with patient, she will call [facility] and they will set up ultrasound for [...]
--- OUTSIDE RECORDS SUMMARY | ~2019-10-24 | XMS | Encounter Summary ---
Demographics + + + | Address | [address] | | | [place] [address] | + + + | Home Phone [...] Team Providers + +------+ + | Care Head Of Sales Name | Role | Phone | + +------+ + | Julita Cabral PA-C | PCP | | + +------+ + Reason for Visit + +--------+ + | Reason | Onset | Comments | | | Date | | + +--------+ + | Procedure | 08/31/ | surgery time | | | 2019 | | + +--------+ + Encounter Details +--------+ + + + + | Date | Type | Department | Care Team | Description | +--------+ + + + + | 08/31/ | Telephone | [facility] | Jose Riojas MD | Procedure (surgery | | 2019 | | [address]ARYNGOLOGY [address] | [address] | time ) | | | | [address] | [address] [facility] | | | | | [address] | [place] [address] | | | | | [address] | [phone] | | | | | [phone] | | | +--------+ + + + [...] encounter Miscellaneous Notes Telephone Encounter - Cindy Doarn Pump Stitcher - 09/01/2018 1:05 PM Severo t called back and her surgery check in time was relayed to her. She will be there Thursday. P DTTelephone Encounter - Cindy Doran Medical Assistant - 08/31/2018 2:15 PM PDTTried calling the [...]
--- OUTSIDE RECORDS SUMMARY | ~2019-10-24 | XMS | Encounter Summary ---
Demographics + + + | Address | [address] | | | [place] [address] | + + + | Home Phone [...] Team Providers + +------+ + | Care Professor Of Kinesiology Name | Role | Phone | + [...] | | | | | [address] | [place] | | | | | [address] | [place] [address] | | | | | [address] | | | | | | [phone] | | | +--------+ + + + [...]
--- OUTSIDE RECORDS SUMMARY | ~2019-10-24 | XMS | Encounter Summary ---
Demographics + + + | Address | [address] | | | [place] [address] | + + + | Home Phone | | + + + | Preferred Language | Unknown | + + + | Marital Status | Single | + + + | Buddhism Affiliation | 1041 | + + + [...] Team Providers + +------+ + | Care Department Secretary Name | Role | Phone | + [...] | Deviated nasal | | 2018 | | OTOLARYNGOLOGY [address] | [address] | septum (Primary Dx); | | | | [address] | [address] [place] | Hypertrophy of | | | | [place], [place] | [place] [address] | nasal turbinates; | | | | [address] | [phone] | Neoplasm of | | | | [phone] | | uncertain behavior | | | [...]
--- OUTSIDE RECORDS SUMMARY | ~2019-10-24 | XMS | Encounter Summary ---
Demographics + + + | Address | [address] | | | [place] [address] | + + + | Home Phone [...] Team Providers + +------+ + | Care Rubber Goods Finisher Name | Role | Phone | + +------+ + | Keaton Wade MD | PCP | | + +------+ + Encounter Details +--------+ + + + + | Date | Type | Department | Care Team | Description | +--------+ + + + + | 10/23/ | Telephone | [facility] [place] | Jose Riojas MD | | | 2020 | | OTOLARYNGOLOCY | [address] | | | | | SERVICES [address] | [address] [place] | | | | | [address] [place] | [place] [address] | | | | | [place] [address] | [phone] | | | | | [phone] | | | +--------+ + + + [...] this encounter Miscellaneous Notes Telephone Encounter - Pau Mosqueda - 10/24/2019 9:07 AM PDTPatient called to speak with Cindy in regards to "whether or not they have received approvalfor her to have surgery. Mani chay knows that Gabriel sent it over, had her other insurance approved it?". Please advise a nd call patient back at [phone] signed by Pau Mosqueda at 10/24/2019 9 :08 AM PDTdocumented in this encounter Plan of Treatment Not on filedocumented as of this encounter Visit Diagnoses Not on filedocumented in this encounter
--- OUTSIDE RECORDS SUMMARY | ~2019-10-24 | XMS | Clinical Summary ---
Demographics + + + | Address | [address] | | | [place] [address] | + + + | Home Phone [...] Team Providers + +------+ + | Care Aerotriangulation Specialist Name | Role | Phone | [...] | mouth Daily. | tablet | | 04/04 | | e | | mEq ER [...] 325-650 mg by | | 0 | 01/ | | Activ | | (TYLENOL) 325 [...] | 3 times daily. | | | 20 | | e | | | | [...] mg | | | | 10/02 | 05/05 | ntinu | | tablet [...] +---------+--------+ | [place] | MEDICA | [id number] | 04/16/19 | [phone] | | Medica | | | ID [place] | | 19-Pre | 2 | | id | | | PLUS | | sent | | | | + +--------+ +--------+ +---------+--------+ | [facility] | IHS | [phone] | | | | Indemn | | SERVICE | YELLOW | | 976-Pr | | | ity | | | HAWK | | esent | | | | + +--------+ +--------+ +---------+--------+ | [place] | MEDICA | [id number] | | [phone] | | Medica | | | ID [place] | | 019-Pr | 2 | | id | | | PLUS | | esent | | | | + +--------+ +--------+ +---------+--------+ | [facility] | IHS | [phone] | 03/16/19 | | | Indemn | [...] al/Fam | | 1975 | [phone] | [place] | | | [place] | | | 9 (Home) | [address] | + +--------+ +--------+ + + | Tiny Campuzano | Person | Self | [birth year] | | [address] | | | al/Fam | | 1975 | [phone] | [place] | | | [place] | | | 9 ([place]) | [address] | + +--------+ +--------+ + + Advance Directives + + + + + | Type | Date Recorded | Patient | Explanation | | | | Heel Scorer | | + + + + + | Power of | | | | | Contract Engineer | | | | + + + [...]
--- OUTSIDE RECORDS SUMMARY | ~2019-10-24 | XMS | Encounter Summary ---
Demographics + + + | Address | [address] | | | [place] [address] | + + + | Home Phone [...] Team Providers + +------+ + | Care Procedures Rn Name | Role | Phone | + [...] | | [address] | [place] [address] | | | | | | [place], | Phone: | | | | | | [place] | [phone] | | | | | | [address] | Fax: | | | | | | Phone: | [phone] | | | | | | [phone] | | | | | | | Fax: | | | | | | | [phone] | | +--------+--------+ + + + + Encounter Details +--------+---------+ + + + | Date | Type | Department | Care Team | Description | +--------+---------+ + + + | 07/07/ | Office | [facility] [place] | Jose Riojas MD | Deviated nasal | | 2018 | Visit | OTOLARYNGOLOGY [address] | [address] | septum (Primary Dx); | | | | [address] | [address] [place] | Hypertrophy of | | | | [place], [place] | [place] [address] | nasal turbinates; | | | | [address] | [phone] | Neoplasm of | | | | [phone] | | uncertain behavior | | | [...] Procedure: EGD; Surgeon: Keaton Wakefield MD; Location: [facility] MEDICAL PROCEDURE UNIT SOCIAL HISTORY: The [...]
--- OUTSIDE RECORDS SUMMARY | ~2019-10-24 | XMS | Encounter Summary ---
Demographics + + + | Address | [address] | | | [place] [address] | + + + | Home Phone [...] Team Providers + +------+ + | Care Restaurant Host Name | Role | Phone | + [...] | | vomiting, | | [address], | | | | | vomiting of | | [address] | | | | | unspecified | | [place], | | | | | type | | [place] [address] | | | | | Aspiration | | Phone: | | | | | pneumonia | | [phone] | | | | | due to | | Fax: | | | | | gastric | | [phone] | | | | | secretions | [...] + + | 04/17/ | Surgery | [facility] | Keaton Wakefield MD | EGD | | 2016 | | MED CTR MP INTRA OP | [address], [place] | | | | | [address] | [address] [place] [address] | | | | | [place], [place] | [id number] | | | | | [address] | | | | | | [phone] | | | +--------+---------+ + + + [...] hypertension Continuous chronic alcoholism (HCC) Cannabis dependence ([facility]) Abscess of trunk Hemorrhoids Pseudopolyposis of colon [...] and well-nourished. No distress. Morbid obesity B NC 49.4 HENT: Head: Normocephalic and atraumatic. Right [...] normal. Nursing note and vitals reviewed. Assessment: rn hemodialysis vomiting probably secondary to gastroparesis incompetent lower [...] made to ensure accuracy; however, inadvertent computerized facsimile operator errors may be pre sent. documented [...] | PROVATION | | 04/17/2015 12:31 PMMRN: [id number] #: [id number] of : | | | 1975Admit Type: AmbulatoryAge: 39Room: [facility] 01Gender: FemaleNote | | | [...] physician, the nurse, the anesthesiologist and the science technician | | | in the procedure [...] Addenda: 0Note Initiated On: 04/17/2015 12:31 PM [facility]. | | | [facility], [address] [place] [address] | | | [phone] | | | - The retroflexed view [...] On: 04/17/2015 12:31 PM | | | [facility], [address] [facility], [place], [place] | | | [address] | | + + -+ + +---------+ [...] [address] | [place] | [phone] | | [facility] | | [address] | | | - LABORATORY | | [...] [address] | [place] | [phone] | | [facility] | | [address] | | | - LABORATORY | | [...] [address] | [place] | [phone] | | [facility] | | [address] | | | - LABORATORY | | [...] | 1.010, 1.015, | | | | [place], | | 1.020, 1.025 | | | | POC | | | | | + + + + + + | Internal QC | Acceptable | | | | + + + + + + | Lot Number | [id number] | | | | + + + [...] DUODENAL BIOPSY SPECIMEN SOURCE: A. DUODENAL | [facility] | | BIOPSY CLINICAL HISTORY: R11.2 [...] | peptic duodenitis or other abnormality. BES:[facility]:C3NR GROSS | | | DESCRIPTION: Received in formalin labeled "Tiny Campuzano" and | | | "duodenal biopsy" on the requisition are multiple pink-santa tissue | | | fragments measuring from <0.1-0.4 cm, all in (A1). ka:RosVR:[facility] | | | PERFORMING LABORATORY: Tissue processing and slide preparation were | | | performed by [facility], [address] [place] [address], [facility] | | | [place] [address] (Apartment Locator: Reilly Thomas M.D. CLIA#: | | | [id number]). Professional interpretation was performed by [facility] [employer] | | | [employer], [address], [place] [address] | | | (Apartment Locator: Reilly Thomas M.D.; CLIA#: [id number]). | | | Diagnostician: Daniel Briscoe MD [...]
--- OUTSIDE RECORDS SUMMARY | ~2019-10-24 | XMS | Encounter Summary ---
Demographics + + + | Address | [address] | | | [place] [address] | + + + | Home Phone [...] + + + | Author | [facility] | | | and [place] | + + + | Organization | [facility] | | [...] Team Providers + +------+ + | Care Environmental Air Specialist Name | Role | Phone | [...] Radiology - | Diagnoses | | [facility] | | | Services | Diagnostic | Alcoholic | [facility], | [facility] | | | Required | Ultrasound | cirrhosis of | [facility] | | | | | liver | ADJUNCT BUSINESS INSTRUCTOR [address] | [address] | | | | | without | [address] | CONFEDERATED | | | | | ascites | [address] | [address] | | | | | (HCC) | [place], | [place], [place] | | | | | Anemia, | [place] [address] | [address] | | | | | unspecified | Phone: | Phone: | | | | | type | [phone] | [phone] | | | | | Hypokalemia | Fax: | Fax: | | | | | | [phone] | [phone] | | | | | Thrombocytop | [...] ascites (HCC) | | | | [address] [place], [place] | [place] | (Primary Dx); | | | | [address] | [address] | Anemia, unspecified | | | | [phone] | | type; Hypokalemia; | | | [...]
--- OUTSIDE RECORDS SUMMARY | ~2019-10-24 | XMS | Encounter Summary ---
Demographics + + + | Address | [address] | | | [place] [address] | + + + | Home Phone [...] Team Providers + +------+ + | Care Geoscience Specialist Name | Role | Phone | [...] + + | 12/08/ | Telephone | [facility] | Jose Riojas MD | Procedure (surgery | | 2019 | | OTOLARYNGOLOGY [address] | [address] | date ) | | | | [address] | [address] [facility] | | | | | [place] | [place] [address] | | | | | [address] | [phone] | | | | | [phone] | | | +--------+ + + + [...] Miscellaneous Notes Telephone Encounter - Cindy Doran Engraver Seals - 01/11/2019 9:00 AM PDTPatien t has [...] 2:33 PM PDTTelephone Encounter - Cindy Doran Engraver Seals - 9:34 AM PDTI tried calling patient but once again there is no answer. Surgery has been ap proved. If patient is going to schedule we need to get a good number because patient never a nswers or its a none working number. elephone Encounter - Cindy Doran Engraver Seals - 12/14/2018 10:22 AM PDTAve to get new auth. Caal is working on it and will let me know w hen its all done. Then I will call the patient to let her know then we can schedule her. Vida ctronically signed by Enieda Rodriguez at 12/14/2018 10:23 AM PDTTedoug ne Encounter - Iveth Chappell - 12/08/2018 4:05 PM PDTPatient would like to reschedule h er nasal surgery with Dr. Riojas; she said that [facility] is going to provider [facility] for her this time so she won't miss it. She also updated her phone number so it is current in registration. docume nted in this encounter Plan of Treatment Not on filedocumented as of this encounter Visit Diagnoses Not on filedocumented in this encounter"
--- OUTSIDE RECORDS SUMMARY | ~2019-10-24 | XMS | Encounter Summary ---
Demographics + + + | Address | [address] | | | [place] [address] | + + + | Home Phone | | + + + | Preferred Language | Unknown | + + + | Marital Status | Single | + + + | Religion Affiliation | 1041 | + + + | Race | Unknown | + + + | Ethnic Group | Unknown | + + + Author + + + | Author | [facility] | | | and [place] | + + + | Organization | [facility] | | | [...] Providers + +------+ + | Care Supervisor Prep Name | Role | Phone | + [...] | | [address] [place] | [place] [address] | nasal turbinates; | | | | [place] [address] | [phone] | Neoplasm of | | | | [phone] | | uncertain behavior | | | [...]
--- OUTSIDE RECORDS SUMMARY | ~2019-10-24 | XMS | Encounter Summary ---
Demographics + + + | Address | [address] | | | [place] [address] | + + + | Home Phone [...] Team Providers + +------+ + | Care Veneer Clipper Name | Role | Phone | [...] + + | 03/15/ | Telephone | [facility] [place] | Jose Riojas MD | Appointment | | 2018 | | OTOLARYNGOLOGY [address] | [address] | | | | | [address] | [address] [place] | | | | | [place], [place] | [place] [address] | | | | | [address] | [phone] | | | | | [phone] | | | +--------+ + + + [...] a time. I call Yesica remy at [facility] and asked her to send over a referral for patient. documented in this encounter Plan of Treatment Not on filedocumented as of this encounter Visit Diagnoses Not on filedocumented in this encounter"
--- OUTSIDE RECORDS SUMMARY | ~2019-10-24 | XMS | Encounter Summary ---
Demographics + + + | Address | [address] | | | [place] [address] | + + + | Home Phone | | + + + | Preferred Language | Unknown | + + + | Marital Status | Single | + + + | Zoroastrian Affiliation | 1041 | + + + | Race | Unknown | + + + | Ethnic Group | Unknown | + + + Author + + + | Author | [facility] | | | and [place] | + + + | Organization | [facility] | | [...] Team Providers + +------+ + | Care Hospice Coordinator Name | Role | Phone | [...] / | (adult) | [place] | [place] | | | | Sleep | (pediatric) | [place] | [facility] | | | | Medicine | CONSULT [address] | [facility] [address] | [place], [place] | | | | | 1:30 | [place], | [address] Phone: | | | | | Procedures | [place] | [phone] | | | | | NEW PATIENT | [address] | Fax: | | | | | | Phone: | [phone] | | | | | | [phone] | | | | | | | Fax: | | | | | | | [phone] | | +--------+--------+ + + + + Encounter Details +--------+---------+ + + + | Date | Type | Department | Care Team | Description | +--------+---------+ + + + | 08/20/ | Office | [facility] [place] | Lupillo [place] | NO SHOW (Primary Dx) | | 2015 | Visit | SLEEP DISORDER [address] | MD [place] [address] | | | | | [address] [place] | [address] [place] | | | | | [place] [address] | [place] [address] | | | | | [phone] | [phone] | | | | | | | [...]
--- OUTSIDE RECORDS SUMMARY | ~2019-10-24 | XMS | Encounter Summary ---
Demographics + + + | Address | [address] | | | [place] [address] | + + + | Home Phone [...] Providers + +------+ + | Care Clinical Nursing Intern Name | Role | Phone | [...] | Deviated nasal | | | | [place], [place] | [place] [address] | septum; Hypertrophy | | | | [address] | [phone] | of nasal turbinates; | | | | [phone] | | Neoplasm of | | | [...]
--- OUTSIDE RECORDS SUMMARY | ~2019-10-24 | XMS | Encounter Summary ---
Demographics + + + | Address | [address] | | | [place] [address] | + + + | Home Phone [...] Team Providers + +------+ + | Care Artists' Booking Representative Name | Role | Phone | [...] + + | 07/30/ | Telephone | [facility] | [facility], | Procedure | | 2019 | | GASTROENTEROLOGY | [address] | | | | | [address] | [address] [facility] [address] | | | | | [address] [place], [place] | [place], [place] | | | | | [address] | [address] | | | | | [phone] | | | +--------+ + + + [...] she was able to get clearance from polyethylene combiner and she said she missed that appointment. [...]
--- OUTSIDE RECORDS SUMMARY | ~2019-10-24 | XMS | Encounter Summary ---
Demographics + + + | Address | [address] | | | [place] [address] | + + + | Home Phone [...] Team Providers + +------+ + | Care Memorandum Statement Clerk Name | Role | Phone | [...] 2014 | | GASTROENTEROLOGY | [address], [place] | | | | | [address] [place] | [address] [place], [place] | | | | | [address] [place], [place] | [address] | | | | | [address] | | | | | | [phone] | | | +--------+ + + + [...]
--- OUTSIDE RECORDS SUMMARY | ~2019-10-24 | XMS | Encounter Summary ---
Demographics + + + | Address | [address] | | | [place] [address] | + + + | Home Phone | | + + + | Preferred Language | Unknown | + + + | Marital Status | Single | + + + | Zoroastrian Affiliation | 1041 | + + + | Race | Unknown | + + + | Ethnic Group | Unknown | + + + Author + + + | Author | [facility] | | | and [place] | + + + | Organization | [facility] | | | [...] Team Providers + +------+ + | Care Flare Breaker Name | Role | Phone | + [...] | [address] [place] | [place] [address] | nasal turbinates; | | | | [place] [address] | [phone] | Neoplasm of | | | | [phone] | | uncertain behavior | | | [...] Procedure: EGD; Surgeon: Keaton Wakefield MD; Location: [facility] MEDICAL PROCEDURE UNIT SOCIAL HISTORY: The [...]
--- OUTSIDE RECORDS SUMMARY | ~2019-10-24 | XMS | Encounter Summary ---
Demographics + + + | Address | [address] | | | [place] [address] | + + + | Home Phone | | + + + | Preferred Language | Unknown | + + + | Marital Status | Single | + + + | Mu-Ism Affiliation | 1041 | + + + | Race | Unknown | + + + | Ethnic Group | Unknown | + + + Author + + + | Author | [facility] | | | and [place] | + + + | Organization | [facility] | | | [...] Team Providers + +------+ + | Care Box Press Operator Name | Role | Phone [...] | | | | [address] | [place] [address] | | | | | [place], [place] | [phone] | | | | | [address] | | | | | | [phone] | | | +--------+ + + + [...] m/s Septal | | | E/e': 11.88 Timing Inspector: EMMANUEL Authenticated by: Keith | | | [...] | 6.08 cmLVPWd: 0.96 cmLVOT Area: 4.23 mx6LTDC Diam: 2.32 cm%FS: 29.55 %EF(Teich): | | 55.63 %ESV(Teich): 82.55 mlLVIDs: 4.28 cmSV(Teich): 103.53 mlRV Major: 7.81 | | cmRVIDd: 3.22 cmLAAs A4C: 19.17 kd8UQCOV A-L A4C: 58.05 mlLALs A4C: 5.37 cmRAAs: | | 9.50 lc9LLQWH A-L: 20.91 mlRAESV MOD: 20.37 mlRALs: 3.66 cmAo Diam: 3.43 | | cmAo/LA: 0.63LA Diam: 5.42 cmLA/Ao: 1.57MV A Finn: 1.26 m/sMV DecT: 223.78 msMV | | E Finn: 1.08 m/sMV E/A Ratio: 0.85MV PHT: 64.89 msMVA By PHT: 3.38 xa6Iasdwm e': | | 0.09 m/sSeptal E/e': 11.88 Timing Inspector: DHAuthenticated by: Rochelle Parker | | MDReport [...] | |Septal E/e': 11.88 | | | |Timing Inspector: | |Authenticated by: Rochelle Parker MD | [...]
== END 2019-10-24 19:17 | disposition home or self-care (01) ==
LOC: ED 18:11
DX: S81.011A Laceration without foreign body, right knee, initial encounter (principal); J44.9 Chronic obstructive pulmonary disease, unspecified; E11.9 Type 2 diabetes mellitus without complications; I10 Essential (primary) hypertension; E78.5 Hyperlipidemia, unspecified; X58.XXXA Exposure to other specified factors, initial encounter
CPT/HCPCS: 12002; 99282-25

== ENCOUNTER 2019-10-30 19:53 | Inpatient (IN) | payer OTHER ==
[~2019-10-30] VITALS: Ht 175.3 cm; Wt 130.6 kg
--- NOTE | ~2019-10-30 | EKG ---
[facility] [address] [facility] [facility] [place], [place] [address] Draft EK completed, results pending confirmation PATIENT NAME: KAILYN IBARRAOziel LEWE Electrocardiogram DATE OF : 75 PHYSICIAN: PRELIMINARY REPORT #: [id number] REPORT IS CONFIDENTIAL AND NOT TO BE RELEASED WITHOUT AUTHORIZATION
--- OUTSIDE RECORDS SUMMARY | ~2019-10-30 | XMS | Encounter Summary ---
Demographics + + + | Address | [address] | | | [place] [address] | + + + | Home Phone | | + + + | Preferred Language | Unknown | + + + | Marital Status | Single | + + + | Congregation Affiliation | 1041 | + + + | Race | or | + + + | Ethnic Group | Not or | + + + Author + + + | Author | [facility] | | | and [place] | + + + | Organization | [facility] | | [...] Team Providers + +------+ + | Care Glaucoma Specialist Name | Role | Phone | + +------+ + | Julita Cabral PA-C | PCP | | + +------+ + Encounter Details +--------+ + + + + | Date | Type | Department | Care Team | Description | +--------+ + + + + | 03/13/ | Abstract | [facility] [place] | Keaton Wakefield MD | | | 2014 | | GASTROENTEROLOGY | [address], [place] | | | | | [address] [place] | [address] [place], [place] | | | | | [address] [place], [place] | [address] | | | | | [address] | | | | | | [phone] | | | +--------+ + + + + Social History + +-------+ +--------+------+ | Tobacco Use | Types | Packs/Day | Years | Date | | | | | Used | | + +-------+ +--------+------+ | Never Assessed | | | | | + +-------+ +--------+------+ + + +---------+ + | Alcohol Use | Drinks/Week | oz/Week | Comments | + + +---------+ + | Not Asked | 0 Standard drinks | 0.0 | | | | or equivalent | | | + + +---------+ + + + + | Sex Assigned at | Date Recorded | | | | + + + | Not on file | | + + + documented as of this encounter Plan of Treatment Not on filedocumented as of this encounter Procedures + +--------+ + + + | Procedure Name | Priori | Date/Time | Associated Diagnosis | Comments | | | ty | | | | + +--------+ + + + | EXTERNAL: | Routin | 08/16/2014 | | Results for this | | COLONOSCOPY | e | | | procedure are in the | | | | | | results section. | + +--------+ + + + documented in this encounter Results EXTERNAL: COLONOSCOPY (08/16/2014) + + + + + + | Component | Value | Ref Range | Performed | Pathologist | | | | | At | Signature | + + + + + + | Colonoscopy | Postoperative diagnoses: | | | | | | irritated internal and | | | | | Impression, | external hemorrhoids. | | | | | External | | | | | + + + + + + documented in this encounter Visit Diagnoses Not on filedocumented in this encounter"
--- OUTSIDE RECORDS SUMMARY | ~2019-10-30 | XMS | Encounter Summary ---
Demographics + + + | Address | [address] | | | [place] [address] | + + + | Home Phone | | + + + | Preferred Language | Unknown | + + + | Marital Status | Single | + + + | Faith Affiliation | 1041 | + + + | Race | or | + + + | Ethnic Group | Not or | + + + Author + + + | Author | [facility] | | | and [place] | + + + | Organization | [facility] | | | [...] Team Providers + +------+ + | Care Plastic Worker Name | Role | Phone | + +------+ + | Julita Cabral PA-C | PCP | | + +------+ + Encounter Details +--------+ + + + + | Date | Type | Department | Care Team | Description | +--------+ + + + + | 04/17/ | Orders Only | [facility] [place] | Keaton Wakefield MD | Nausea and vomiting; | | 2015 | | GASTROENTEROLOGY | [address], [place] | Morbid obesity due | | | | [address] [place] | [address] [place] | to excess calories | | | | [address] [place], [place] | [address] | ([facility]); Aspiration | | | | [address] | | pneumonia, | | | | [phone] | | unspecified | | | | | | aspiration pneumonia | | | | | | type, unspecified | | | | | | laterality, | | | | | | unspecified part of | | | | | | lung ([facility]) | +--------+ + + + + Social [...] filedocumented as of this encounter Visit Diagnoses + + | Diagnosis | + + | Nausea and vomiting Nausea with vomiting | + + | Morbid obesity due to excess calories (HCC) | + + | Aspiration pneumonia, unspecified aspiration pneumonia type, unspecified laterality, | | unspecified part of lung (HCC) | + + documented in this encounter"
--- OUTSIDE RECORDS SUMMARY | ~2019-10-30 | XMS | Encounter Summary ---
Demographics + + + | Address | [address] | | | [place] [address] | + + + | Home Phone | | + + + | Preferred Language | Unknown | + + + | Marital Status | Single | + + + | Evangelical Affiliation | 1041 | + + + | Race | or | + + + | Ethnic Group | Not or | + + + Author + + + | Author | [facility] | | | and [place] | + + + | Organization | [facility] | | [...] Team Providers + +------+ + | Care Magneto Specialist Name | Role | Phone | + +------+ + | Julita Cabral PA-C | PCP | | + +------+ + Encounter Details +--------+ + + + + | Date | Type | Department | Care Team | Description | +--------+ + + + + | 03/01/ | Abstract | [facility] | Provider, | | | 2017 | | GASTROENTEROLOGY | MD [address] | | | | | [address] [facility] | Katie Moore | | | | | [address] [place] | [place] [address] | | | | | [address] | | | | | | [phone] | | | +--------+ + + + [...] 0 Standard drinks | 0.0 | stopped 18 | | | or equivalent | | [...] | + +--------+ + + + | CULTURE, URINE | Routin | 12/02/2017 | | Results for this | | | e | | | procedure are in the | | | | | | results section. | + +--------+ + + + | ALCOHOL | Routin | 11/01/2017 | | Results for this | | | e | | | procedure are in the | | | | | | results section. | + +--------+ + + + documented in this encounter Results Culture, Urine (12/02/2017) + + + + + + | Component | Value | Ref Range | Performed | Pathologist | | | | | At | Signature | + + + + + + | Result | 12-03-17 No growth after | | | | | | overnight incubation | | | | + + + + + + | Result | 12-04-17 no growth after | | | | | | further incubation. | | | | + + + + + + + + | Specimen | + + | Urine | + + Ethanol (11/01/2017) + + + + + + | Component | Value | Ref Range | Performed | Pathologist | | | | | At | Signature | + + + + + + | Ethanol Lvl | 82.1 (A) | 0 - 10 | | | + + + + + + + + | Specimen | + + | Blood | + + documented in this encounter Visit Diagnoses Not on filedocumented in this encounter"
--- OUTSIDE RECORDS SUMMARY | ~2019-10-30 | XMS | Encounter Summary ---
Demographics + + + | Address | [address] | | | [place] [address] | + + + | Home Phone | | + + + | Preferred Language | Unknown | + + + | Marital Status | Single | + + + | Confucianism Affiliation | 1041 | + + + | Race | or | + + + | Ethnic Group | Not or | + + + Author + + + | Author | [facility] | | | and [place] | + + + | Organization | [facility] | | | [...] Team Providers + +------+ + | Care Toy Assembly Supervisor Name | Role | Phone | [...] [address] | [address] | apnea (Primary Dx); | | | | [address] | [address] [place] | Deviated nasal | | | | [place], [place] | [place] [address] | septum; Hypertrophy | | | | [address] | [phone] | of nasal turbinates; | | | | [phone] | | Neoplasm of | | | [...] as of this encounter Plan of Treatment + +------+--------+ [...]
--- OUTSIDE RECORDS SUMMARY | ~2019-10-30 | XMS | Encounter Summary ---
Demographics + + + | Address | [address] | | | [place] [address] | + + + | Home Phone | | + + + | Preferred Language | Unknown | + + + | Marital Status | Single | + + + | Cheondoism Affiliation | 1041 | + + + | Race | or | + + + | Ethnic Group | Not or | + + + Author + + + | Author | [facility] | | | and [place] | + + + | Organization | [facility] | | | [...] Team Providers + +------+ + | Care Materials Intern Name | Role | Phone | + +------+ + | Julita Cabral PA-C | PCP | | + +------+ + Reason for Visit + +--------+ + | Reason | Onset | Comments | | | Date | | + +--------+ + | Procedure | 07/21/ | surgery date | | | 2018 | | + +--------+ + Encounter Details +--------+ + + + + | Date | Type | Department | Care Team | Description | +--------+ + + + + | 07/21/ | Telephone | [facility] | Jose Riojas MD | Procedure (surgery | | 2018 | | OTOLARYNGOLOGY [address] | [address] | ) | | | | [address] | [address] | | | | | [place] | [place] [address] | | | | | [address] | [phone] | | | | | [phone] | | | +--------+ + + + [...] this encounter Miscellaneous Notes Telephone Encounter - Cindy Doran, Vacuum System Tester - 08/03/2018 2:49 PM PDTCalled and spoke to patient to get her scheduled for surgery. Patient has been scheduled for surge ry ThursdaySeptember 07. Post op has been made and information has been sent.Electronically sig brett by Cindy Doran, Vacuum System Tester at 08/03/2018 2:50 PM PDTTelephone Encounter - Iveth Chappell - 07/30/2018 1:53 PM PDTPatient called in checking on the status of sched uling, advised her of Cindy's note, best number [phone] she thinks vm is set up. She s aid she didn't have minutes for a week so that may be why you couldn't reach her. Electronic ally signed by Iveth Chappell at 07/30/2018 1:54 PM PDTTelephone Encounter - Jorden Doran, Vacuum System Tester - 07/21/2018 2:07 PM PDTI tried calling patient to get her schedu led for surgery but there was no answer the 2 times I tried calling and you can't leave a me ssage. documented in this encounter Plan of Treatment Not on filedocumented as of this encounter Visit Diagnoses Not on filedocumented in this encounter"
--- OUTSIDE RECORDS SUMMARY | ~2019-10-30 | XMS | Encounter Summary ---
Demographics + + + | Address | [address] | | | [place] [address] | + + + | Home Phone | | + + + | Preferred Language | Unknown | + + + | Marital Status | Single | + + + | Yazidism Affiliation | 1041 | + + + | Race | or | + + + | Ethnic Group | Not or | + + + Author + + + | Author | [facility] | | | and [place] | + + + | Organization | [facility] | | | and [...] Team Providers + +------+ + | Care Metal Base Blocker Name | Role | Phone | + [...] | | vomiting, | | [address], | | | | | vomiting of | | [address] | | | | | unspecified | | [place], | | | | | type | | [place] [address] | | | | | Aspiration | | Phone: | | | | | pneumonia | | [phone] | | | | | due to | | Fax: | | | | | gastric | | [phone] | | | | | secretions | [...] Description | +--------+---------+ + + + | 04/17/ | Surgery | [facility] | Keaton Wakefield MD | EGD | | 2016 | | MED CTR MP INTRA OP | [address], [address] | | | | | [address] | [address] [place] [address] | | | | | [place], [place] | [id number] | | | | | [address] | | | | | | [phone] | | | +--------+---------+ + + + [...] + + + | Blood Pressure | 130/76 | 04/17/2015 10:32 AM | | | | | PST | | + + + + + | Pulse | 74 | 04/17/2015 10:32 AM | | | | | PST | | + + + + + | Temperature | 36.8 C (98.2 F) | 04/17/2015 10:32 AM | | | | | PST | | + + + + + | Respiratory Rate | - | - | | + + + + + | Oxygen Saturation | 98% | 04/17/2015 10:32 AM | | | [...] and well-nourished. No distress. Morbid obesity B [place] 49.4 HENT: Head: Normocephalic and atraumatic. Right [...] normal. Nursing note and vitals reviewed. 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 documented in [...] | [facility] | | GastroenterologyPatient Name: Tiny CampuzanoProcedure Date: | PROVATION | | 04/17/2015 12:31 PMMRN: [id number] #: [id number] of : | | | 1975Admit Type: AmbulatoryAge: 39Room: [facility] 01Gender: FemaleNote | | | Status: FinalizedAttending MD: Keaton Wakefield, [facility]cedure: | | | Upper GI endoscopyIndications: Suspected [...] physician, the nurse, the anesthesiologist and the fish and wildlife technician | | | in the procedure [...] Addenda: 0Note Initiated On: 04/17/2015 12:31 PM [facility]. | | | [facility], [address] [place] [address] | | | [phone] | | | - The retroflexed view [...] On: 04/17/2015 12:31 PM | | | [facility], [address] [facility], [place], [place] | | | [address] | | + + -+ + +---------+ + + | Performing | Address | City/State/[facility] Centercode | Phone Number | | Organization | [...] r pylori Ag | | | [facility] | | [...] + + | [facility] | [address] | [place] | [phone] | | [facility] | | [address] | | | - LABORATORY | | [...] | | | POC | | | [facility] | | [...] + + | [address] | [address] | [place] | [phone] | | [facility] | | [address] | | | - LABORATORY | | [...] [address] | [place] | [phone] | | [facility] | | [address] | | | - LABORATORY | | [...] | 1.010, 1.015, | | | | [place], | | 1.020, 1.025 | | | | POC | | | | | + + + + + + | Internal QC | Acceptable | | | | + + + + + + | Lot Number | [id number] | | | | + + + + + + | Expiration | 2017-7 | | | | | Date | [...] A DUODENAL BIOPSY SPECIMEN SOURCE: A. DUODENAL [facility] | | BIOPSY CLINICAL HISTORY: R11.2 [...] | | peptic duodenitis or other abnormality. BES:[facility]:C3NR GROSS | | | DESCRIPTION: Received in formalin labeled "Tiny Campuzano" and | | | "duodenal biopsy" on the requisition are multiple pink-santa tissue | | | fragments measuring from <0.1-0.4 cm, all in (A1). ka:RosVR:[facility] | | | PERFORMING LABORATORY: Tissue processing and slide preparation were | | | performed by [employer], [facility], [address] | | | [place] [address] (Fermenter Helper: Reilly Thomas M.D. CLIA#: | | | [id number]). Professional interpretation was performed by [employer] | | | [email or web address], [facility] W. [facility], [address], [place] [address] | | | (Fermenter Helper: Reilly Thomas M.D.; CLIA#: [id number]). | | | Diagnostician: Daniel Briscoe MD [...] of unspecified type | + + | Aspiration pneumonia due to gastric secretions (HCC) | + + | Morbid obesity, unspecified obesity type (HCC) | + + documented in this [...]
--- OUTSIDE RECORDS SUMMARY | ~2019-10-30 | XMS | Encounter Summary ---
Demographics + + + | Address | [address] | | | [place] [address] | + + + | Home Phone | | + + + | Preferred Language | Unknown | + + + | Marital Status | Single | + + + | Yarsanism Affiliation | 1041 | + + + [...] | + + +---------+ + | Parisa Amy | ECON | Unknown | | + + +---------+ + | Sandra Oro | ECON | Unknown | | + + +---------+ + Care Team Providers + +------+ + | Care Emu Farm Worker Name | Role | Phone | [...] + + | Closed | Specialty | Radiology - | Diagnoses | | [facility] | | | Services | Diagnostic | Alcoholic | [facility], | [facility] | | | Required | Ultrasound | cirrhosis of | [facility] | | | | | liver | TIRE BUILDER OPERATOR [address] | [address] | | | | | without | [address] | CONFEDERATED | | | | | ascites | [address] | [address] | | | | | (HCC) | [place], | [place], [place] | | | | | Anemia, | [place] [address] | [address] | | | | | unspecified | Phone: | Phone: | | | | | type | [phone] | [phone] | | | | | Hypokalemia | Fax: | Fax: | | | | | | [phone] | [phone] | | | | | Thrombocytop | | | | | | | enia (HCC) | | | | | | | Procedures | | | | | | | US, ABDOMEN | | | | | | | LIMITED | | | +--------+ + + + + + Encounter Details +--------+ + + + + | Date | Type | Department | Care Team | Description | +--------+ + + + + | 01/04/ | Orders Only | [facility] [place] | [facility], | Alcoholic cirrhosis | | 2019 | | GASTROENTEROLOGY | FRANK Oconnor [address] | of liver without | | | | [address] | [address] | ascites (HCC) | | | | [address] [place], [place] | [place] [facility], [place] | (Primary Dx); | | | | [address] | [address] | Anemia, unspecified | | | | [phone] | | type; Hypokalemia; | | | [...] of this encounter Plan of Treatment + +---------+--------+ + + | Name | Type | Priori | Associated Diagnoses | Order Schedule | | | | ty | | | + +---------+--------+ + + | Alpha Fetoprotein, | Lab | Routin | Alcoholic | 1 Occurrences | | Tumor Marker | | e | cirrhosis of liver | starting 01/04/2019 | | | | | without ascites | until 05/04/2019 | | | | | (HCC) Anemia, | | | | | | unspecified type | | | | | | Hypokalemia | | | | | | Thrombocytopenia | | | | | | (HCC) | | + +---------+--------+ + + | Comprehensive | Lab | Routin | Alcoholic | 1 Occurrences | | Metabolic Panel | | e | cirrhosis of liver | starting 01/04/2019 | | | | | without ascites | until 05/04/2019 | | | | | (HCC) Anemia, | | | | | | unspecified type | | | | | | Hypokalemia | | | | | | Thrombocytopenia | | | | | | (HCC) | | + +---------+--------+ + + | CBC with | Lab | Routin | Alcoholic | 1 Occurrences | | Differential | | e | cirrhosis of liver | starting 01/04/2019 | | | | | without ascites | until 05/04/2019 | | | | | (HCC) Anemia, | | | | | | unspecified type | | | | | | Hypokalemia | | | | | | Thrombocytopenia | | | | | | (HCC) | | + +---------+--------+ + + | Protime INR | Lab | Routin | Alcoholic | 1 Occurrences | | | | e | cirrhosis of liver | starting 01/04/2019 | | | | | without ascites | until 05/04/2019 | | | | | (HCC) Anemia, | | | | | | unspecified type | | | | | | Hypokalemia | | | | | | Thrombocytopenia | | | | | | (HCC) | | + +---------+--------+ + + | US Abdomen Limited | Imaging | Routin | Alcoholic | Expected: | | | | e | cirrhosis of liver | 01/04/2019, Expires: | | | | | without ascites | 05/04/2019 | | | | | (HCC) Anemia, | | | | | | unspecified type | | | | | | Hypokalemia | | | | | | Thrombocytopenia | | | | | | (HCC) | | + +---------+--------+ + + + + +--------+ + + | Name | Type | Priori | Associated Diagnoses | Order Schedule | | | | ty | | | + + +--------+ + + | Referral ABDOMINAL | Outpatient | Routin | Alcoholic | Ordered: 01/04/2019 | | [facility] | Referral | e | cirrhosis of liver | | | | | | without ascites | | | | | | (HCC) Anemia, | | | | | | unspecified type | | | | | | Hypokalemia | | | | | | Thrombocytopenia | | | | | | (HCC) | | + + +--------+ + + documented as of this encounter Visit Diagnoses + + | Diagnosis | + + | Alcoholic cirrhosis of liver without ascites (HCC) - Primary Alcoholic cirrhosis of | | liver | + + | Anemia, unspecified type | + + | Hypokalemia Hypopotassemia | + + | Thrombocytopenia (HCC) Thrombocytopenia, unspecified | + + documented in this encounter"
--- OUTSIDE RECORDS SUMMARY | ~2019-10-30 | XMS | Encounter Summary ---
Demographics + + + | Address | [address] | | | [place] [address] | + + + | Home Phone [...] Team Providers + +------+ + | Care Plating Foreman Name | Role | Phone | [...] + + | 03/01/ | Telephone | [facility] | [facility], | Insurance | | 2017 | | GASTROENTEROLOGY | FRANK Oconnor [address] | Authorization | | | | [address] | | | | | [address] [place], [place] | [place] [facility], [place] | | | | | [address] | [address] | | | | | [phone] | | | +--------+ + + + [...] 12:59 PM PST1st attempt: LVM for Yesica jonel to get auth for apt with Emma on 03/23Electronically signed by Iveth Chappell at 018 12:59 PM PSTdocumented in this encounter Plan of Treatment Not on filedocumented as of this encounter Visit Diagnoses Not on filedocumented in this encounter"
--- OUTSIDE RECORDS SUMMARY | ~2019-10-30 | XMS | Encounter Summary ---
Demographics + + + | Address | [address] | | | [place] [address] | + + + | Home Phone [...] Providers + +------+ + | Care Supervisor Type Bar And Segment Name | Role | Phone | + [...] | | vomiting, | | [address], | | | | | vomiting of | | [address] | | | | | unspecified | | [place], | | | | | type | | [place] [address] | | | | | Aspiration | | Phone: | | | | | pneumonia | | [phone] | | | | | due to | | Fax: | | | | | gastric | | [phone] | | | | | secretions | [...] + | 04/17/ | Anesthesia | [facility] | Robert Gan, | | | 2015 | Event | MED CTR MP INTRA OP | MD [address] | | | | | [address] | [place] | | | | | [place] | [address] | | | | | [address] | | | | | | [phone] | | | +--------+ + + + [...] | [facility] | [facility] | | | [...] + + | Periph | 04/17/15; 1105; [id number] | 04/17/15 1105 by | 04/17/15 1400 [...] EVALUATION Tiny Campuzano 39 y.o. female 1975 [id number] Procedure(s) EGD (N/A Mouth) Filed Vitals: 04/17/15 [...] signed by Robert Gan MD 04/17/2015 12:33 [facility] nesthesia Preprocedu re Evaluation - Robert Gan MD - 04/16/2015 3:24 PM PSTFormatting of this note might b e different from the original. ANESTHESIA PREANESTHESIA EVALUATION Tiny Campuzano 39 y.o. female 1975 [id number] Procedure(s): EGD (N/A Mouth) Medical history, anesthesia, [...]
--- OUTSIDE RECORDS SUMMARY | ~2019-10-30 | XMS | Encounter Summary ---
Demographics + + + | Address | [address] | | | [place] [address] | + + + | Home Phone | | + + + | Preferred Language | Unknown | + + + | Marital Status | Single | + + + | Latter-Day Affiliation | 1041 | + + + [...] Team Providers + +------+ + | Care Loftsman/Woman Name | Role | Phone | + [...] + + | 05/07/ | Telephone | [facility] | Irma Cason, | Hospital Follow-up | | 2018 | | MED CTR PHARMACY | PharmD [address] | | | | | [address] [place] | [facility] | | | | | [place] [address] | [place] [address] | | | | | [phone] | [phone] | | +--------+ + + + + [...] KRISTIE COLINDRES HAS REFERRAL TO CARDIOLOGY AT [facility] SPOKE WITH ALLEN AT JULITA CABRAL'S OFFICE AND SHE STATES THEY ALREADY HAVE A REFERRAL I N PLACE FOR CARDIOLOGY AT [facility]. PT HAS NOT BEEN SCHEDULED YET BUT THEY ARE WORKING ON. [phone] CC: CARDIOLOGY DIRECTOR DIABETES STAFF - IN BASKET NOTE ON REFERRAL FROM [place] IN AUTHORIZATIONS [id number] signed by Ewa doe at 05/21/2018 11:10 [...] answer: Does not know (missed call from [facility] during the nap) Appointment date: 05/[address] Cabral 11. Does the patient have transportation to get to their appointment? Yes 12. Do you have any other concerns about your discharge? No 13. Patient does express interest in Heart Failure Clinic at [facility] Cardiology. Length of phone call: 12 minutes documented in thi s encounter Plan of Treatment Not on filedocumented as of this encounter Visit Diagnoses Not on filedocumented in this encounter"
--- OUTSIDE RECORDS SUMMARY | ~2019-10-30 | XMS | Encounter Summary ---
Demographics + + + | Address | [address] | | | [place] [address] | + + + | Home Phone [...] Team Providers + +------+ + | Care Pipe Line Gauger Name | Role | Phone | + [...] | | | | [address] | [place] [address] | | | | | [place], [place] | [phone] | | | | | [address] | | | | | | [phone] | | | +--------+ + + + [...] m/s Septal | | | E/e': 11.88 Utilization Manager: EMMANUEL Authenticated by: Keith | | | Rochelle SPARKS Report Date/Time: -- | | + + + + + | Procedure Note | + + | HomarMansoor Conversion - 11/04/2018 10:40 PM PDT Patient [...] | 6.08 cmLVPWd: 0.96 cmLVOT Area: 4.23 [id number] Diam: 2.32 cm%FS: 29.55 %EF(Teich): | | 55.63 %ESV(Teich): 82.55 mlLVIDs: 4.28 cmSV(Teich): 103.53 mlRV Major: 7.81 | | cmRVIDd: 3.22 cmLAAs A4C: 19.17 rp1VBVTS A-L A4C: 58.05 mlLALs A4C: 5.37 cmRAAs: | | 9.50 wt2NRARS A-L: 20.91 mlRAESV MOD: 20.37 mlRALs: 3.66 cmAo Diam: 3.43 | | cmAo/LA: 0.63LA Diam: 5.42 cmLA/Ao: 1.57MV A Finn: 1.26 m/sMV DecT: 223.78 msMV | | E Finn: 1.08 m/sMV E/A Ratio: 0.85MV PHT: 64.89 msMVA By PHT: 3.38 [id number] e': | | 0.09 m/sSeptal E/e': 11.88 Utilization Manager: Jazmínticated by: Rochelle Parker | | MDReport Date/Time: [...] | |Septal E/e': 11.88 | | | |Utilization Manager: EMMANUEL | |Authenticated by: Rochelle Parker MD [...]
--- OUTSIDE RECORDS SUMMARY | ~2019-10-30 | XMS | Encounter Summary ---
Demographics + + + | Address | [address] | | | [place] [address] | + + + | Home Phone | | + + + | Preferred Language | Unknown | + + + | Marital Status | Single | + + + | Sabianism Affiliation | 1041 | + + + [...] Team Providers + +------+ + | Care Interlocker Name | Role | Phone | + [...] (cirrhosis | PA-C [address] | [address], | | | | | of liver) | [address] | [address] | | | | | (HCC) | Ari | [place], | | | | | Procedures | [address] | [place] [address] | | | | | office visit | [place], | Phone: | | | | | | [place] | [phone] | | | | | | [address] | Fax: | | | | | | Phone: | [phone] | | | | | | [phone] | | | | | | | Fax: | | | | | | | [phone] | | +--------+--------+ + + + + Encounter Details +--------+---------+ + + + | Date | Type | Department | Care Team | Description | +--------+---------+ + + + | 07/07/ | Office | [facility] | [facility], | Alcoholic cirrhosis | | 2019 | Visit | GASTROENTEROLOGY | FRANK Oconnor [address] | of liver without | | | | [address] | [address] | ascites (HCC) | | | | [address] [place], [place] | [place], [place] | (Primary Dx); | | | | [address] | [address] | Anemia, unspecified | | | | [phone] | | type; Hypokalemia; | | | [...] transpl antation evaluation. Urine test done at [facility] every other week. Labs to be done with next urine test. Need to schedule EGD and colonoscopy after you are cleared by heart doctor. documented in this encounter Progress Notes Anastasia Guillory ARNP - 07/07/2018 11:00 AM PDTFormatting of this note might be differe nt from the original. PATIENT NAME: Tiny Campuzano : 1975: AGE: 43 y.o. REFERRED BY: Juilta Cabral PRIMARY CARE: Julita Cabral PA-C Subjective: [...] was initially seen in the ED in [facility] for abdominal pain and swelling 2017. She went home and was readmitted to the hospital 03/2018. She was then hospitalized in [place]. She was was hospitalized for 22 days. She was then readmitted to the hospital here at [facility] 04/23/2018. She was admitted from 04/23 -05/06/2018. [...] Procedure: EGD; Surgeon: Keaton Wakefield MD; Location: [facility] MEDICAL PROCED[facility] UN[facility] Family History Family [...] call once she has been evaluated by unisaw operator. Will need to schedule EGD and colonoscopy [...] AFP every 6 months. 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
--- OUTSIDE RECORDS SUMMARY | ~2019-10-30 | XMS | Encounter Summary ---
Demographics + + + | Address | [address] | | | [place] [address] | + + + | Home Phone | | + + + | Preferred Language | Unknown | + + + | Marital Status | Single | + + + | Sabianist Affiliation | 1041 | + + + | Race | or | + + + | Ethnic Group | Not or | + + + Author + + + | Author | [facility] | | | and [place] | + + + | Organization | [facility] | | [...] Team Providers + +------+ + | Care Load Out Worker Name | Role | Phone [...] failure, | PharmD [address] | | | | | unspecified | [address] | [place], | | | | | HF | [place] | [place] | | | | | chronicity, | [place], [place] | [address] | | | | | unspecified | [address] | Phone: | | | | | heart | Phone: | [phone] | | | | | failure type | [phone] | Fax: | | | | | ([facility]) | [phone] | [phone] | | | | | Procedures | | | | | | | FRUIT LOADER | | | +--------+ + + + [...] HF | | | | [address] [place] | [address] [place] | chronicity, | | | | [place] [address] | [place] [address] | unspecified heart | | | | [phone] | [phone] | failure type (HCC) | | | [...] +--------+ + + | AMB REFERRAL TO [facility] | Outpatient | Routin | Heart failure, [...]
--- OUTSIDE RECORDS SUMMARY | ~2019-10-30 | XMS | Encounter Summary ---
Demographics + + + | Address | [address] | | | [place] [address] | + + + | Home Phone [...] Team Providers + +------+ + | Care Shrub Planter Name | Role | Phone | + [...] | | vomiting, | | [address], | | | | | vomiting of | | [address] | | | | | unspecified | | [place], | | | | | type | | [place] [address] | | | | | Aspiration | | Phone: | | | | | pneumonia | | [phone] | | | | | due to | | Fax: | | | | | gastric | | [phone] | | | | | secretions | [...] + + | 04/17/ | Hospital | [facility] | Keaton Wakefield MD | Nausea and vomiting, | | 2016 | Encounter | MED [facility] | [address], [place] | vomiting of | | | | [address] | [address] [place] | unspecified type | | | | [place] | [address] | (Primary Dx) | | | | [address] | | | | | | [phone] | | | +--------+ + + + [...] mouth 2 | | 0 | | 12/17/201 | | | times daily. | | [...] + documented as of this encounter H&P Notes Keaton Wakefield MD - 04/17/2015 11:57 AM PSTThe patient has no questions consent form is si gned we'll proceed with upper endoscopy or evaluation of nausea and vomiting. Due to her mu ltiple comorbid conditions the procedure is to be done in the OR with anesthesia assistanceE lectronically signed by Keaton Wakefield MD at 04/17/2015 11:58 AM PSTHarriKeaton MD - 3:01 PM PST Subjective: Patient [...] and well-nourished. No distress. Morbid obesity B MN 49.4 HENT: Head: Normocephalic and atraumatic. Right [...] normal. Nursing note and vitals reviewed. 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 documented in [...] | [facility] | | GastroenterologyPatient Name: Tiny Crockett Date: | PROVATION | | 04/17/2015 12:31 PMMRN: [id number] #: [id number] of : | | | 1975Admit Type: AmbulatoryAge: 39Room: [facility] 01Gender: FemaleNote | | | Status: FinalizedAttending [...] physician, the nurse, the anesthesiologist and the blood bank laboratory technician | | | in the procedure [...] Addenda: 0Note Initiated On: 04/17/2015 12:31 PM [facility]. | | | [facility], [address] [place] [address] | | | [phone] | | | - The retroflexed view [...] On: 04/17/2015 12:31 PM | | | [facility], [address] [place] [address] | | | [address] | | + + -+ + +---------+ + + | Performing | Address | City/State/[facility] Centercode | Phone Number | | [...] + | [facility] | [address] | [place] | [phone] | | [facility] | | [address] | | | - LABORATORY | | [...] [address] | [place] | [phone] | | [facility] | | [address] | | | - LABORATORY | | [...] + | [facility] [facility] | [address] | [place] | [phone] | | [facility] | | [address] | | | - LABORATORY | | [...] | 1.010, 1.015, | | | | Soldier, | | 1.020, 1.025 | | | | POC | | | | | + + + + + + | Internal QC | Acceptable | | | | + + + + + + | Lot Number | [id number] | | | | + + + [...] DUODENAL BIOPSY SPECIMEN SOURCE: A. DUODENAL | [facility] PATHOLOGY | | BIOPSY CLINICAL HISTORY: R11.2 [...] | | peptic duodenitis or other abnormality. BES:[facility]:C3NR GROSS | | | DESCRIPTION: Received in formalin labeled "Tiny Campuzano" and | | | "duodenal biopsy" on the requisition are multiple pink-santa tissue | | | fragments measuring from <0.1-0.4 cm, all in (A1). ka:RosVR:[facility] | | | PERFORMING LABORATORY: Tissue processing and slide preparation were | | | performed by [employer], [facility] W[employer] [facility], [place], [facility] | | | [place] [address] (Caustic Preparer: Reilly Thomas M.D. CANDI#: | | | [id number]). Professional interpretation was performed by [employer] | | | [employer], [address], [place] [address] | | | (Caustic Preparer: Reilly Thomas M.D.; SHAZIA#: [id number]). | | | Diagnostician: Daniel Briscoe MD [...]
--- OUTSIDE RECORDS SUMMARY | ~2019-10-30 | XMS | Encounter Summary ---
Demographics + + + | Address | [address] | | | [place] [address] | + + + | Home Phone | | + + + | Preferred Language | Unknown | + + + | Marital Status | Single | + + + | Church Affiliation | 1041 | + + + [...] Team Providers + +------+ + | Care Salesperson Flowers Name | Role | Phone | + +------+ + | Keaton Wade MD | PCP | | + +------+ + Encounter Details +--------+---------+ + + + | Date | Type | Department | Care Team | Description | +--------+---------+ + + + | 10/04/ | Office | [facility] | Jose Riojas MD | Deviated nasal | | 2020 | Visit | OTOLARYNGOLOCY | [address] | septum (Primary Dx); | | | | SERVICES [address] | [address] [place] | Hypertrophy of | | | | [address] [place] | [place] [address] | nasal turbinates; | | | | [place] [address] | [phone] | Neoplasm of | | | | 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
--- OUTSIDE RECORDS SUMMARY | ~2019-10-30 | XMS | Encounter Summary ---
Demographics + + + | Address | [address] | | | [place] [address] | + + + | Home Phone [...] Author + + + | Author | [facility] | | | and [place] | + + + | Organization | [facility] | | [...] Team Providers + +------+ + | Care C Consultant Name | Role | Phone | [...] + + | 09/20/ | Telephone | [facility] | Jose Riojas MD | Procedure | | 2018 | | OTOLARYNGOLOGY [address] | [address] | | | | | [address] | [address] [facility] | | | | | [place], [place] | [place] [address] | | | | | [address] | [phone] | | | | | [phone] | | | +--------+ + + + [...] Miscellaneous Notes Telephone Encounter - Cindy Doran Leather Goods Maker - 11/02/2018 3:38 PM PDTClosin g phone note due to patient not calling us back. elephone Encounter - Cindy Doran Medica l Case Picker - 10/13/2018 2:31 PM PDTI tired calling [...] syst em, please call her back at [phone]. Electronically signed by Su Goodwin at 09/14 8:57 AM PDTTelephone Encounter - Cindy Doran Leather Goods Maker - 10/06/2018 8:20 AM PDTI tried calling patient to get her scheduled for surgery but someone answered th en hung up. I will try one more time. elephone Encounter - Su Goodwin - 09/20/2018 11:5 3 AM PDTPatient called and wants to reschedule the surgery she did not show up for on 09/07. Please call her back at [phone], she states this number was just changed as her origin al number was compromised. Changing this in the patients chart as well. Electronically sign ed by Su Goodwin at 09/20/2018 11:54 AM PDTdocumented in this encounter Plan of Treatment Not on filedocumented as of this encounter Visit Diagnoses Not on filedocumented in this encounter"
--- OUTSIDE RECORDS SUMMARY | ~2019-10-30 | XMS | Encounter Summary ---
Demographics + + + | Address | [address] | | | [place] [address] | + + + | Home Phone [...] + + + | Author | [facility] | | | and [place] | + + + | Organization | [facility] | | | and [...] Team Providers + +------+ + | Care Newspaper Subscription Solicitor Name | Role | Phone | + +------+ + | Julita Cabral PA-C | PCP | | + +------+ + Reason for Visit + +--------+ + | Reason | Onset | Comments | | | Date | | + +--------+ + | Procedure | 01/25/ | surgery date | | | 2018 | | + +--------+ + Encounter Details +--------+ + + + + | Date | Type | Department | Care Team | Description | +--------+ + + + + | 01/25/ | Telephone | [facility] | Cindy Doran | Procedure (surgery | | 2018 | | OTOLARYNGOLOGY [address] | M, [place] | date ) | | | | [address] [facility] [address] | | | | | | [place] | | | | | | [address] | | | | | | [phone] | | | +--------+ + + + [...] Miscellaneous Notes Telephone Encounter - Cindy Doran, [place] - 01/25/2019 10:20 AM PSTCalled and spoke [...]
--- OUTSIDE RECORDS SUMMARY | ~2019-10-30 | XMS | Clinical Summary ---
Demographics + + + | Address | [address] | | | [place] [address] | + + + | Home Phone [...] Author + + + | Author | [facility] | | | and [place] | + + + | Organization | [facility] | | [...] Team Providers + +------+ + | Care Artist Suspect Name | Role | Phone | + [...] mg | nightly. | | | | 2/ | ntinu | | tablet [...] mouth. | | 0 | 03/16 | / | Disco | | (LIPITOR) 40 mg | | | | 10/02 | 2 | ntinu | | tablet | | [...] + + | 10/23/ | Telephone | Otolaryngology | Jose Riojas MD | | | 2020 | | | | | +--------+ + + + + | 10/04/ | Office | Otolaryngology | Jose Riojas MD | Deviated nasal | | 2019 | Visit | | | septum (Primary [...] +---------+--------+ | [place] | MEDICA | [id number] | 04/16/19 | [phone] | | Medica | | | ID OR | | 19-Pre | 2 | | id | | | PLUS | | sent | | | | + +--------+ +--------+ +---------+--------+ | [employer] | IHS | [phone] | | | | Indemn | | SERVICE | YELLOW | | 976-Pr | | | ity | | | HAWK | | esent | | | | + +--------+ +--------+ +---------+--------+ | [place] | MEDICA | [id number] | | [phone] | | Medica | | | ID [place] | | 019-Pr | 2 | | id | | | PLUS | | esent | | | | + +--------+ +--------+ +---------+--------+ | [facility] | IHS | [phone] | 03/16/19 | | | Indemn | [...] Self | [birth year] | | [address] | | | al/Fam | | 1975 | [id number] | [place], [place] | | | [place] | | | [address] (Home) | [address] | + +--------+ +--------+ + + | Tiny Campuzano | Person | Self | [birth year] | [address] | | | al/Fam | | 1975 | [phone] | [place], [place] | | | [place] | | | [address] (Home) | [address] | + +--------+ +--------+ + + Advance Directives + + + + + | Type | Date Recorded | Patient | Explanation | | | | Hull Grinder | | + + + + + | Power of | | | | | Activated Sludge Attendant | | | | + + + [...]
--- OUTSIDE RECORDS SUMMARY | ~2019-10-30 | XMS | Encounter Summary ---
Demographics + + + | Address | [address] | | | [place] [address] | + + + | Home Phone [...] Team Providers + +------+ + | Care Middle School Librarian Name | Role | Phone | + [...] Medicine / | (adult) | [place] | [facility] | | | | Sleep | (pediatric) | [place] | [facility] | | | | Medicine | CONSULT PW | [facility] [address] | [place], [place] | | | | | 1:30 | [place], | [address] Phone: | | | | | Procedures | [place] | [phone] | | | | | NEW PATIENT | [address] | Fax: | | | | | | Phone: | [phone] | | | | | | [phone] | | | | | | | Fax: | | | | | | | [phone] | | +--------+--------+ + + + + Encounter Details +--------+---------+ + + + | Date | Type | Department | Care Team | Description | +--------+---------+ + + + | 08/20/ | Office | [facility] | Lupillo [place]es | NO SHOW (Primary Dx) | | 2016 | Visit | SLEEP DISORDER [address] | [place] [address] | | | | | [address] [place] | [address] [place] | | | | | [place] [address] | [place] [address] | | | | | [phone] | [phone] | | | | | | | [...] a NO SHOW for a 1 hour [facility] medicine consultation. 2: 21 PM PDTdocumented in this encounter Plan of Treatment Not on filedocumented as of this encounter Visit Diagnoses + + | Diagnosis | + + | No Show - Primary Code used for vists where the patient is not seen | + + documented in this encounter"
--- OUTSIDE RECORDS SUMMARY | ~2019-10-30 | XMS | Encounter Summary ---
Demographics + + + | Address | [address] | | | [place] [address] | + + + | Home Phone [...] + + + | Author | [facility] | | | and [place] | + + + | Organization | [facility] | | [...] Team Providers + +------+ + | Care Ferris Wheel Operator Name | Role | Phone | + +------+ + | Kaeton Wade MD | PCP | | + +------+ + Encounter Details +--------+ + + + + | Date | Type | Department | Care Team | Description | +--------+ + + + + | 10/04/ | Orders Only | [facility] [place] | Jose Riojas MD | Deviated nasal | | 2020 | | OTOLARYNGOLOCY | [address] | septum (Primary Dx); | | | | [address] | [address] [place] | Hypertrophy of | | | | [address] [place] | [place] [address] | nasal turbinates; | | | | [place] [address] | [phone] | Neoplasm of | | | | [phone] | | uncertain behavior | | | [...]
--- OUTSIDE RECORDS SUMMARY | ~2019-10-30 | XMS | Encounter Summary ---
Demographics + + + | Address | [address] | | | [place] [address] | + + + | Home Phone | | + + + | Preferred Language | Unknown | + + + | Marital Status | Single | + + + | Episcopalian Affiliation | 1041 | + + + | Race | or | + + + | Ethnic Group | Not or | + + + Author + + + | Author | [facility] | | | and [place] | + + + | Organization | [facility] | | | [...] Providers + +------+ + | Care Junior Paralegal Name | Role | Phone | + [...] + + | 01/19/ | Telephone | [facility] | [facility], | Imaging | | 2019 | | GASTROENTEROLOGY | FRANK [address]nor [address] | | | | | [address] | [address] | | | | | [address] [place], [place] | [place] | | | | | [address] | [phone] | | | | | [phone] | | | +--------+ + + + [...] at 8AM . Michael's fax number is [phone] lectronically signed by Iveth Chappell at 01/19/2019 8:16 AM PSTdocumented in this encoun ter Plan of Treatment Not on filedocumented as of this encounter Visit Diagnoses Not on filedocumented in this encounter"
--- OUTSIDE RECORDS SUMMARY | ~2019-10-30 | XMS | Encounter Summary ---
Demographics + + + | Address | [address] | | | [place] [address] | + + + | Home Phone [...] Team Providers + +------+ + | Care Sponge Clipper Name | Role | Phone | + [...] + + | 08/31/ | Telephone | [facility] | Jose Riojas MD | Procedure (surgery | | 2018 | | OTOLARYNGOLOGY [address] | [address] | time ) | | | | [address] | [address] [place] | | | | | [place] | [place] [address] | | | | | [address] | [phone] | | | | | [phone] | | | +--------+ + + + [...] Miscellaneous Notes Telephone Encounter - Cindy Doran Electrician Control Equipment - 09/01/2018 1:05 PM KATIEKelli ellison called back and her surgery check in time was relayed to her. She will be there Thursday. P DTTelephone Encounter - Cindy Doran Electrician Control Equipment - 08/31/2018 2:15 PM PDTTried calling the [...]
--- OUTSIDE RECORDS SUMMARY | ~2019-10-30 | XMS | Encounter Summary ---
Demographics + + + | Address | [address] | | | [place] [address] | + + + | Home Phone [...] Team Providers + +------+ + | Care Epilepsy Physician Name | Role | Phone | [...] + + | 12/08/ | Telephone | [facility] | Jose Riojas MD | Procedure (surgery | | 2018 | | OTOLARYNGOLOGY [address] | [address] | ) | | | | [address] | [address] | | | | | [place] | [place] [address] | | | | | [address] | [phone] | | | | | [phone] | | | +--------+ + + + [...] Miscellaneous Notes Telephone Encounter - Cindy Doran Workers Compensation Examiner - 01/11/2019 9:00 AM PDTPatien t has been scheduled for surgery ThursdayFebruary 01. Post op been made and information lenz s already been sent out from when the patient was already scheduled from the first time. Vida ctronically signed by Eneida Rodriguez at 01/11/2019 9:02 AM Sidney ambrocio Encounter - Iveth Chappell - 01/05/2019 2:32 PM PDTPatient returned Cindy's call to schedule, I verified phone number. She will turn it up and make sure she is near it. I told her we were trying to reach her to schedule. Electronically signed by Iveth Chappell at 2:33 PM PDTTelephone Encounter - Cindy Doran Workers Compensation Examiner - 9:34 AM PDTI tried calling patient but once again there is no answer. Surgery has been ap proved. If patient is going to schedule we need to get a good number because patient never a nswers or its a none working number. elephone Encounter - Cindy Doran Workers Compensation Examiner - 12/14/2018 10:22 AM PDTAve to get [...]
--- OUTSIDE RECORDS SUMMARY | ~2019-10-30 | XMS | Encounter Summary ---
Demographics + + + | Address | [address] | | | [place] [address] | + + + | Home Phone [...] Team Providers + +------+ + | Care Curing Supervisor Name | Role | Phone | + +------+ + | Julita Cabral PA-C | PCP | | + +------+ + Encounter Details +--------+ + + + + | Date | Type | Department | Care Team | Description | +--------+ + + + + | 07/08/ | Orders Only | [facility] [place] | [facility], | Alcoholic cirrhosis | | 2019 | | GASTROENTEROLOGY | FRANK O[address]nor [address] | of liver without | | | | [address] | [address] | ascites (HCC) | | | | [address] [place] | [place] | (Primary Dx) | | | | [address] | [address] | | | | | [phone] | | | +--------+ + + + [...]
--- OUTSIDE RECORDS SUMMARY | ~2019-10-30 | XMS | Encounter Summary ---
Demographics + + + | Address | [address] | | | [place] [address] | + + + | Home Phone [...] Team Providers + +------+ + | Care Factory Engineer Name | Role | Phone | [...] + + | 01/05/ | Telephone | [facility] | [facility] | LABS | | 2018 | | GASTROENTEROLOGY | FRANK [address] | | | | | [address] | [address] | | | | | [address] [place] | [place] | | | | | [address] | [id number] | | | | | [phone] | | | +--------+ + + + [...] Chappell - 01/05/2019 8:20 AM PDTDawn from [employer] juan alberto mai, they had not received a fax of lab orders from [facility]. I went ahead and printed out the ord ers from [facility] and faxed them to [phone].Electronically signed by Iveht Chappell at 8:22 AM PDTdocumented in this encounter Plan of Treatment Not on filedocumented as of this encounter Visit Diagnoses Not on filedocumented in this encounter"
--- OUTSIDE RECORDS SUMMARY | ~2019-10-30 | XMS | Encounter Summary ---
Demographics + + + | Address | [address] | | | [place] [address] | + + + | Home Phone [...] Team Providers + +------+ + | Care Mannequin Maker Name | Role | Phone | [...] | | sinisutus | PA-C [address] | | | | | | [address] | [address] | | | | | | [place] | [place], | | | | | | [address] | [place] [address] | | | | | | [place], | Phone: | | | | | | [place] | [phone] | | | | | | [address] | Fax: | | | | | | Phone: | [phone] | | | | | | [phone] | | | | | | | Fax: | | | | | | | [phone] | | +--------+--------+ + + + + [...] | Hypertrophy of | | | | [place], [place] | [place] [address] | nasal turbinates; | | | | [address] | [phone] | Neoplasm of | | | | [phone] | | uncertain behavior | | | [...] Procedure: EGD; Surgeon: Keaton Wakefield MD; Location: [facility] MEDICAL PROCEDURE UNIT SOCIAL HISTORY: The patient reports that she has never smoked. She has never used smokeless tobacco. She r eports that she has current or past drug history. Drugs: and Marijuana. She reports that sh roger does not drink alcohol. FAMILY HISTORY: Family [...]
--- OUTSIDE RECORDS SUMMARY | ~2019-10-30 | XMS | Encounter Summary ---
Demographics + + + | Address | [address] | | | [place] [address] | + + + | Home Phone [...] Team Providers + +------+ + | Care Car Loader Name | Role | Phone | + +------+ + | Julita Cabral PA-C | PCP | | + +------+ + Encounter Details +--------+ + + + + | Date | Type | Department | Care Team | Description | +--------+ + + + + | 01/05/ | Documentati | [facility] [place] | [facility], | | | 2019 | on | GASTROENTEROLOGY | FRANK O[address] | | | | | [address] | [address] | | | | | [address] [place], [place] | [place], [place] | | | | | [address] | [address] | | | | | [phone] | | | +--------+ + + + [...] 01/05/2019 8:24 AM PDTFaxed lab orders to [facility].Electro nically signed by Becky Ferris CMA at 01/05/2019 8:25 AM PDTdocumented in this encoun ter Plan of Treatment Not on filedocumented as of this encounter Visit Diagnoses Not on filedocumented in this encounter"
--- OUTSIDE RECORDS SUMMARY | ~2019-10-30 | XMS | Encounter Summary ---
Demographics + + + | Address | [address] | | | [place] [address] | + + + | Home Phone [...] + + + | Author | [facility] | | | and [place] | + + + | Organization | [facility] | | | [...] Team Providers + +------+ + | Care Chemical Laboratory Scientist Name | Role | Phone | + [...] + + | 07/30/ | Telephone | [facility] | [facility], | Procedure | | 2018 | | GASTROENTEROLOGY | [address]ANK [address] | | | | | [address] | [address] | | | | | [address] [place], [place] | [place], [place] | | | | | [address] | [address] | | | | | [phone] | | | +--------+ + + + [...] she was able to get clearance from hot knife cutter and she said she missed that appointment. [...]
--- OUTSIDE RECORDS SUMMARY | ~2019-10-30 | XMS | Encounter Summary ---
Demographics + + + | Address | [address] | | | [place] [address] | + + + | Home Phone [...] + + + | Author | [facility] | | | and [place] | + + + | Organization | [facility] | | [...] Team Providers + +------+ + | Care Real Estate Rental Agent Name | Role | Phone | [...] | Telephone | [facility] [place] | [facility], | Imaging (ultrasound | | 2018 | | GASTROENTEROLOGY | FRANK Oconnor [address] | needs scheduled) | | | | [address] | [address] | | | | | [address] [place], [place] | [place], [place] | | | | | [address] | [address] | | | | | [phone] | | | +--------+ + + + [...] AM PSTSpoke with patient, she will call [facility] and they will set up ultrasound for her. I asked that they call us back with DOS for insurance. She verbalized understanding. The ultrasound order has been fax ed to [facility] imaging. 8: 54 AM PSTdocumented in this encounter Plan of Treatment Not on filedocumented as of this encounter Visit Diagnoses Not on filedocumented in this encounter"
--- OUTSIDE RECORDS SUMMARY | ~2019-10-30 | XMS | Encounter Summary ---
Demographics + + + | Address | [address] | | | [place] [address] | + + + | Home Phone [...] Team Providers + +------+ + | Care Video Editor Name | Role | Phone | + [...] + + | 01/31/ | Telephone | [facility] | Jose Riojas MD | Procedure; | | 2018 | | OTOLARY[address]OLOGY [address] | [address] | Appointment | | | | [address] | [address] | | | | | [place] | [place] [address] | | | | | [address] | [phone] | | | | | [phone] | | | +--------+ + + + [...] encounter. elep milagros Encounter - Cindy Doran, Linen Manager - 05/17/2019 12:46 PM PSTPlease call patient to have er see since she has no showed and cancelled so many times for surg mary. Telephone Encounter - Iveth Chappell - 05/12/2019 7:38 AM PSTReferral is now approved, d o you want us to call her to schedule or wait for her to call us. elephone Encounter - Cindy Doran Linen Manager - 04/06/2019 1:20 PM PSTReferral still pending elephone Encounter - Cindy Doran Linen Manager - 03/24/2019 2:14 PM PSTReferral still pending. elephone Encounter - Iveth Stringer - 02/17/2019 8:23 AM PSTPatient called in to schedule surgery, I advised her that we were working on getting authorization for her surgery. I told her to wait for our ph one call. Her phone number has been updated again. elephone Encounter - Cindy Doran, Linen Manager - 05/2018 2:14 PM PSTChecking on Auth with Jewel then I will call the patient to schedule. El ectronically signed by Cindy Doran Linen Manager at 02/15/2019 2:15 PM PSTTeleph one Encounter [...] Please advise and call her back at [phone] signed by Pau panda at 02/04/2019 8:18 AM PSTTelephone Encounter - Cindy Doran, Linen Manager - 2:29 PM PSTCalled and left message [...] from 09/20/18). Please call her back at [phone] signed by Su Goodwin at 02/03/2019 2:08 PM PSTTelephone Encounter - Iveth Chappell - 01/31/2019 1:06 PM PSTPati ent called in to cancel her procedure, she said that she is so sick and stuffed up she just doesn't think she can make it in. She asked that her call her back on her "neighbors" or her brother in law at [phone]. She said her phone was disconnected by [employer] because nuzhat willett hacked in. document ed in this encounter Plan of Treatment Not on filedocumented as of this encounter Visit Diagnoses Not on filedocumented in this encounter
--- OUTSIDE RECORDS SUMMARY | ~2019-10-30 | XMS | Encounter Summary ---
Demographics + + + | Address | [address] | | | [place] [address] | + + + | Home Phone [...] Phone | + + +---------+ + | Aprisa Amy | ECON | Unknown | | + + +---------+ + | Sandra Oro | ECON | Unknown | | + + +---------+ + Care Team Providers + +------+ + | Care Rubber Stamp Assembler Name | Role | Phone | + [...] unspecified | [address], | | | | | Nausea with | [address], [place] | [address] | | | | | vomiting, | [address] [place] | [place], | | | | | unspecified | [place], [place] | [place] [address] | | | | | Opioid | [address] | Phone: | | | | | dependence, | Phone: | [phone] | | | | | uncomplicate | [phone] | Fax: | | | | | d (HCC) | Fax: | [phone] | | | | | Pneumonitis | [phone] | | | | | | due to | | | | | | | inhalation | | | | | | | of food and | | | | | | | vomit (HCC) | | | | | | | Procedures | | | | | | | MT | | | | | | | ESOPHAGOGAST | | | | | | | RODUODENOSCO | | | | | | | PY TRANSORAL | | | | | | | DIAGNOSTIC | | | | | | | MT EDG | | | | | | | TRANSORAL | | | | | | | BIOPSY | | | | | | | SINGLE/MULTI | | | | | | | PLE MT | | | | | | | [...] | | | | | 03/12>PEND | [place], | [address] | | | | | AUTH | [place] | Phone: | | | | | Office visit | [address] | [phone] | | | | | | Phone: | Fax: | | | | | | [phone] | [phone] | | | | | | Fax: | | | | | | | [phone] | | +--------+--------+ + + + + Encounter Details +--------+---------+ + + + | Date | Type | Department | Care Team | Description | +--------+---------+ + + + | 04/05/ | Office | [facility] | Keaton Wakefield MD | Dysphagia, | | 2016 | Visit | GASTROENTEROLOGY | [address], [place] | unspecified | | | | [address] [place] | [address] [place] | dysphagia; Opioid | | | | [address] [place], [place] | [address] | type dependence, | | | | [address] | | continuous (HCC); | | | | [phone] | | Nausea and vomiting, | | [...] and well-nourished. No distress. Morbid obesity B TN 49.4 HENT: Head: Normocephalic and atraumatic. Right [...] normal. Nursing note and vitals reviewed. 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 documented in [...] Nausea and | Expected: 04/17/2015 | | [id number] | Referral | e | vomiting Morbid [...]
--- OUTSIDE RECORDS SUMMARY | ~2019-10-30 | XMS | Encounter Summary ---
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 endurance/activity tolerance [facility] [place], donned a clean with assist to tie. she managed her pants off/on over hips with toileting and during sponge bath. LB Dressing, Level of [place]: stand by assist Assistive Device: none LB Dressing Assess/Train, Position: standing LB Dressing Impairments: decreased flexibility, strength decreased, impaired balance, pain, impaired functional endurance/activity tolerance No physical assistance required Toileting, Level of [place]: supervised Assistive Device: grab bar Toileting Assess/Train, Position: sitting Toileting Impairments: decreased flexibility, strength decreased, impaired balance, pain, m otor control impaired, impaired functional endurance/activity tolerance leaning against counter for support Grooming, Level of [place]om[place]: supervised Assistive Device: none Grooming Assess/Train, Position: supported standing Grooming Impairments: strength decreased, impaired balance, impaired functional endurance/a ctivity tolerance Transfers Pt walked loop in hallway, ~220 ft. Reported this was the first time she had been up to [employer] today. Increased time, but no physical assistance required and no need for restbreak Sit-Stand, Level of [place]: modified independent Stand-Sit, Level of [place]: modified independent Jlu-Ywmfl-Nag, Assistive Device: 2 wheeled walker (FWW), none Toilet, Level of [place]: supervised Toilet, Assistive Device: 2 wheeled walker (FWW), grab bars Safety Issues: step length decreased, weight-shifting ability decreased Impairments: coordination impaired, impaired balance OT Goal Review Date Most Recent Value STG Review Date 05/09/18 at 05/02/2018 1407 Grooming Goal Most Recent Value STG Status progressing at 05/04/2018 0940 STG [place]ominee Level modified independent at 05/02/2018 1407 STG Position standing at 05/02/2018 1407 LB Dressing Goal Most Recent Value STG Status progressing at 05/04/2018 0940 STG [place] Level modified independent at 05/02/2018 1407 Additional Goals #1 OT Most Recent Value STG Status continued at 05/04/2018 0940 STG Pt. will tolerate BLE compression wraps and other edema management techniques includin g MLM for edema management at 05/02/2018 1407 Electronically signed by: ANAND Bledsoe, 05/04/2018 12:19 lan of Care - Jo macdonald, TELEVISION ENGINEER - 05/04/2018 5:58 AM PSTProblem: Patient Care [...] rounding during day shift and q2h during archival records clerk. Answer call light i n person and/or [...] rounding during day shift and q2h during archival records clerk. Answer call light i n person and/or [...] rounding during day shift and q2h during archival records clerk. Answer call light i n person and/or [...] rounding during day shift and q2h during archival records clerk. Answer call light i n person and/or [...] vital sign response to mobility. Level of [place]om[place]: supervised Assistive Device: 2 wheeled walker (FWW) Distance (feet): suzanne. 275 ft Transfers Pt able to perform sit <> stand from regular height surfaces with increased time and effort but no physical assist required. Sit-Stand, Level of [place]: modified independent Stand-Sit, Level of [place]: modified independent Sbc-Butox-Zkv, Assistive Device: none, 2 wheeled walker (FWW) Toilet, Level of [place]: supervised Toilet, Assistive Device: grab bars Safety Issues: sequencing ability decreased, step length decreased, weight-shifting ability decreased Impairments: coordination impaired, impaired balance Bed Mobility Increased time and effort, no phys A needed Assistive Device: HOB elevated Supine to Sit, Level of [place]: modified independent Sit to Supine, Level of [place]: modified independent Safety Issues: decreased use of [...] STG Review Date 05/04/18 at 04/27/2018 1206 Hledpx-Ned-Xfkubq Goal Most Recent Value STG Status met at 04/28/2018 1145 STG [place] Level modified independent at 04/27/2018 1206 STG Assistive Device none at 04/27/2018 1206 STG Comments simulate home environment at 04/27/2018 1206 Zyv-Zkioh-Onv Goal Most Recent Value STG Status met at 05/03/2018 1608 STG [place] Level modified independent at 04/27/2018 1206 STG Comments with or w/o AD at 04/27/2018 1206 Uzc-Eadvs-Eui Goal Most Recent Value STG Status met at 05/03/2018 1608 STG [place] Level modified independent at 04/27/2018 1206 STG Comments with or w/o AD at 04/27/2018 1206 Gait Goal Most Recent Value STG Status progressing at 05/03/2018 1608 STG [place] Level modified independent at 04/27/2018 1206 STG [...] in a safe manner Outcome: Improving This onsite case manager went to follow up with patient and she was just getting started with PT. Attempted to call Luis Antonio, [phone]. Apparently , [employer] phone system is down and this CM was sent to the [employer] VM--Left a VM asking her to call [...] rounding during day shift and q2h during archival records clerk. Answer call light i n person and/or [...] rounding during day shift and q2h during archival records clerk. Answer call light i n person and/or [...] ADLs, not yet able to mobilize at [facility] for home discharge and medical status. Tiny will benefit from continued therapeutic intervention to address ongoing impairment s and increase safety and independence with activities necessary for safe discharge. Refer below for specific details regarding functional levels. Occupational Therapy Discharge Recommendations are: Recommended discharge disposition: home with assist, long term facility Post discharge occupational therapy recommendation: ongoing [...] thread B feet LB Dressing, Level of [place]om[place]: maximal assist (25% patient effort) Assistive Device: none LB Dressing Assess/Train, Position: sitting, standing LB Dressing Impairments: decreased flexibility, strength decreased, impaired balance, pain, impaired functional endurance/activity tolerance No physical assistance required Toileting, Level of [place]: supervised Assistive Device: grab bar Toileting Assess/Train, Position: sitting Toileting Impairments: decreased flexibility, strength decreased, impaired balance, pain, m otor control impaired, impaired functional endurance/activity tolerance Bed Mobility Sit to Supine, Level of [place]: modified independent Safety Issues: decreased use of legs for bridging/pushing Impairments: coordination impaired Transfers Pt walked loop in [facility], ~220 ft. Reported this was the first time she had been up to [employer] today. Increased time, but no physical assistance required and no need for restbreak Sit-Stand, Level of [place]: modified independent Stand-Sit, Level of [place]: modified independent Ekn-Vzzsl-Rfr, Assistive Device: none, 2 wheeled walker (FWW) Toilet, Level of [place]: supervised Toilet, Assistive Device: grab bars Safety Issues: sequencing ability decreased, step length decreased, weight-shifting ability decreased Impairments: coordination impaired, impaired balance OT Goal Review Date Most Recent Value STG Review Date 05/09/18 at 05/02/2018 1407 Grooming Goal Most Recent Value STG Status new at 05/02/2018 1407 STG [place] Level modified independent at 05/02/2018 1407 STG Position standing at 05/02/2018 1407 LB Dressing Goal Most Recent Value STG Status progressing at 05/03/2018 1349 STG [place] Level modified independent at 05/02/2018 1407 Additional Goals #1 OT Most Recent Value STG Status continued at 05/03/2018 1349 STG Pt. will tolerate BLE compression wraps and other edema management techniques includin g MLM for edema management at 05/02/2018 1407 Electronically signed by: Romaine Romero OT, 05/03/2018 15:49 lan of Care - [place] Barbara morton, PT - 05/03/2018 8:53 AM [...] rounding during day shift and q2h during archival records clerk. Answer call light i n person and/or [...] rounding during day shift and q2h during archival records clerk. Answer call light i n person and/or [...] Otherwise pt slept well overnight. lan of [facility] Sondra coffey, TELEVISION ENGINEER - 05/03/2018 4:28 AM PSTProblem: Patient Care [...] rounding during day shift and q2h during archival records clerk. Answer call light i n person and/or [...] rounding during day shift and q2h during archival records clerk. Answer call light i n person and/or [...] rounding during day shift and q2h during archival records clerk. Answer call light i n person and/or [...] Comment: Lives alone, meals delivered, nurse from [facility] visits along with others in community. Pt [...] STG Status new at 05/02/2018 1407 STG [place] Level modified independent at 05/02/2018 1407 STG Position standing at 05/02/2018 1407 LB Dressing Goal Most Recent Value STG Status new at 05/02/2018 1407 STG [place] Level modified independent at 05/02/2018 1407 Additional [...] rounding during day shift and q2h during archival records clerk. Answer call light i n person and/or [...] rounding during day shift and q2h during archival records clerk. Answer call light i n person and/or [...] sign response (see flow sheets). Level of [place]ominee: supervised Assistive Device: 2 wheeled walker (FWW) Distance (feet): 300 Transfers Pt requires increased time and effort but able to demo safe transfer technique without mary marin. Sit-Stand, Level of [place]: modified independent Stand-Sit, Level of [place]: modified independent Jle-Bclbe-Rlp, Assistive Device: none, 2 wheeled walker (FWW) Safety Issues: sequencing ability decreased, step length decreased, weight-shifting ability decreased Impairments: coordination impaired, impaired balance Bed Mobility Increased time and effort, no phys A needed Assistive Device: bed rails, HOB elevated Supine to Sit, Level of [place]: modified independent Sit to Supine, Level of [place]om[place]: not tested Safety Issues: decreased use of [...] STG Review Date 05/04/18 at 04/27/2018 1206 Rfcift-Tip-Tjqlkz Goal Most Recent Value STG Status met at 04/28/2018 1145 STG [place] Level modified independent at 04/27/2018 1206 STG Assistive Device none at 04/27/2018 1206 STG Comments simulate home environment at 04/27/2018 1206 Wrl-Wbzbh-Mac Goal Most Recent Value STG Status progressing at 04/29/2018 1100 STG [place] Level modified independent at 04/27/2018 1206 STG Comments with or w/o AD at 04/27/2018 1206 Uns-Hzkhp-Nom Goal Most Recent Value STG Status progressing at 04/29/2018 1100 STG [place] Level modified independent at 04/27/2018 1206 STG Comments with or w/o AD at 04/27/2018 1206 Gait Goal Most Recent Value STG Status progressing at 04/29/2018 1100 STG [place] Level modified independent at 04/27/2018 1206 STG [...] rounding during day shift and q2h during archival records clerk. Answer call light i n person and/or [...] rounding during day shift and q2h during archival records clerk. Answer call light i n person and/or [...] rounding during day shift and q2h during archival records clerk. Answer call light i n person and/or [...] rounding during day shift and q2h during archival records clerk. Answer call light i n person and/or [...] maintained. lan of Care - Tammy Baron, TELEVISION ENGINEER - 04/30/2018 8:51 PM PSTProblem: Patient Care [...] rounding during day shift and q2h during archival records clerk. Answer call light i n person and/or [...] rounding during day shift and q2h during archival records clerk. Answer call light i n person and/or [...] she is voiding. lan of Care - [facility], Rosy Duran RN - 04/30/2018 10:25 AM [...] rounding during day shift and q2h during archival records clerk. Answer call light i n person and/or [...] assist lan of Care - Junaid torresEder, TELEVISION ENGINEER - 04/30/2018 5:12 AM PSTProblem: Patient Care [...] rounding during day shift and q2h during archival records clerk. Answer call light i n person and/or [...] rounding during day shift and q2h during archival records clerk. Answer call light i n person and/or [...] rounding during day shift and q2h during archival records clerk. Answer call light i n person and/or [...] 1:04 PM PSTFaxed updated chart notes to [facility]. Received the communication result report; result ok Electronically signed by: Falguni Hebert 04/29/2018 13:04 This CM left a message on the voicemail of Luis Antonio at [facility] asking for a return call. PH: [phone] Electronically signed by: Falguni Hebert 04/29/2018 15:03 [...] rounding during day shift and q2h during archival records clerk. Answer call light i n person and/or [...] good tolerance, stability, slowed rosa Level of [place]ominee: stand by assist Assistive Device: 2 wheeled walker (FWW) Distance (feet): 300' Transfers No phys A needed, increased time/effort, needs intermittent object support Sit-Stand, Level of [place]: supervised Stand-Sit, Level of [place]: supervised Rjw-Rkcei-Scq, Assistive Device: 2 wheeled walker (FWW) Toilet, Level of [place]om[place]: supervised Toilet, Assistive Device: grab bars Safety Issues: sequencing ability decreased, step length decreased, weight-shifting ability decreased Impairments: coordination impaired, impaired balance Bed Mobility Increased time and effort, no phys A needed Assistive Device: bed rails, HOB elevated Supine to Sit, Level of [place]: modified independent Sit to Supine, Level of [place]om[place]: not tested Safety Issues: decreased use of [...] STG Review Date 05/04/18 at 04/27/2018 1206 Srupiu-Zno-Ywejgx Goal Most Recent Value STG Status met at 04/28/2018 1145 STG [place] Level modified independent at 04/27/2018 1206 STG Assistive Device none at 04/27/2018 1206 STG Comments simulate home environment at 04/27/2018 1206 Eug-Wzrqd-Vld Goal Most Recent Value STG Status progressing at 04/29/2018 1100 STG [place] Level modified independent at 04/27/2018 1206 STG Comments with or w/o AD at 04/27/2018 1206 Acj-Exizn-Iwx Goal Most Recent Value STG Status progressing at 04/29/2018 1100 STG [place] Level modified independent at 04/27/2018 1206 STG Comments with or w/o AD at 04/27/2018 1206 Gait Goal Most Recent Value STG Status progressing at 04/29/2018 1100 STG [place] Level modified independent at 04/27/2018 1206 STG [...] rounding during day shift and q2h during archival records clerk. Answer call light i n person and/or [...] hypervolemia type [E87.70] 3+ pitting edema [R60.9]. [employer] visit was in response to the patient's request to attend a faith service. Spiritual Evaluation: The patient welcomed spiritual care and was glad to attend the [facility] Chapel service. She i s Yarsanism and has desired to attend mass at her own zoroastrianism [facility] in [place], but lenz s been unable to in the last few weeks due to her illness and lack of transportation. She is connected with Father Onur at her zoroastrianism. 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 Spiritual Interventions: The aids social worker attended, brought patient to the chapel by [...] rounding during day shift and q2h during archival records clerk. Answer call light i n person and/or [...] rounding during day shift and q2h during archival records clerk. Answer call light i n person and/or [...] rounding during day shift and q2h during archival records clerk. Answer call light i n person and/or [...] today. She had diminished breath s ounds. [facility] - Debra Solorzano RN - 04/28/2018 4:08 [...] at 10:45. I will pass on to archival records clerk that she wo uld like a wheelchair and chaplain Angelina, said she would wheel her down to chapel at the [facility]. [facility] [address] - Angelina Whaley Chaplain - 04/28/2018 12:22 [...] rounding during day shift and q2h during archival records clerk. Answer call light i n person and/or [...] hypervolemia type [E87.70] 3+ pitting edema [R60.9]. [employer] visit was part of routine rounding. Spiritual Evaluation: This was a follow-up visit to offer prayer support and assess any further patient needs. T he patient welcomed the visit and prayer. She also requested a Bible as well as any other C hristian literature such as the [employer] devotional pamphlet. 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 Her sister continues to b e a support to her. She shared that she has been hospitalized in several locations since and that it has been challenging and that she has felt discouraged at times. T he patient would like to attend Yarsanism chapel services on at 11 am. Spiritual Interventions: The aids social worker attended, offered care, witnessed patient's story, responded to emotional pain , identified concerns, provided a Bible and offered prayer. Software Trainer also spoke with the sera hawkins to [...] rounding during day shift and q2h during archival records clerk. Answer call light i n person and/or [...] hypervolemia type [E87.70] 3+ pitting edema [R60.9]. [employer] visit was part of routine rounding. Spiritual Evaluation: The patient was resting in a bed attended by her sister. She was pleasant and engaged acti vely and with humor. She had requested Yarsanism spiritual support and was glad to finally s ee the aids social worker. She was also interested in attending chapel services. The patient express ed that at times she feels anxious and overwhelmed when her room is very busy. She feels gr ateful for her care and she says that she has everything she needs at home. Her sister is s upportive as well as some friends in [place]. Spiritual Interventions: The aids social worker attended, offered care, witnessed patient's story, explored [...] rounding during day shift and q2h during archival records clerk. Answer call light i n person and/or [...] widened NANY and lateral shifts Level of [place]om[place]: contact guard assist, stand by assist Assistive Device: cane (straight, single point) Distance (feet): 175' Transfers Pt completes transfers well with minimal object support, increased time/effort Sit-Stand, Level of [place]: supervised Stand-Sit, Level of [place]: supervised Ydy-Xrzzl-Pvg, Assistive Device: cane (straight, single point) Safety Issues: sequencing ability decreased, step length decreased, weight-shifting ability decreased Impairments: coordination impaired, impaired balance Bed Mobility Practiced bed mobility with bed flat, no railing to simulate home environment. Able to comp lete with increased time and effort, no phys A needed Assistive Device: none, bed rails Supine to Sit, Level of [place]om[place]: modified independent Sit to Supine, Level of [place]: modified independent Safety Issues: decreased use of [...] STG Review Date 05/04/18 at 04/27/2018 1206 Fswxkw-Sea-Xwaikj Goal Most Recent Value STG Status met at 04/28/2018 1145 STG [place] Level modified independent at 04/27/2018 1206 STG Assistive Device none at 04/27/2018 1206 STG Comments simulate home environment at 04/27/2018 1206 Amr-Zigkn-Hav Goal Most Recent Value STG Status progressing at 04/28/2018 1145 STG [place] Level modified independent at 04/27/2018 1206 STG Comments with or w/o AD at 04/27/2018 1206 Fgf-Vxlac-Qrh Goal Most Recent Value STG Status progressing at 04/28/2018 1145 STG [place] Level modified independent at 04/27/2018 1206 STG Comments with or w/o AD at 04/27/2018 1206 Gait Goal Most Recent Value STG Status progressing at 04/28/2018 1145 STG [place] Level modified independent at 04/27/2018 1206 STG [...] rounding during day shift and q2h during archival records clerk. Answer call light i n person and/or [...] RN at 04/27/2018 6:42 PM PSTPlan of [facility] [place] - Antonina Bhagat PT - 04/27/2018 12:20 [...] rounding during day shift and q2h during archival records clerk. Answer call light i n person and/or [...] Pt notes having [facility]ino sportation [facility]. Will do trial with cane next visit [...] Comment: Lives alone, meals delivered, nurse from [facility] visits along with others in community. Pt [...] occasional furniture or wall support Level of [place]om[place]: stand by assist Assistive Device: 2 wheeled walker (FWW), bariatric Distance (feet): 150' + 15', 25' Transfers Pt transfers w/o phys A needed, increased time/effort. Able to sit and rise from low toilet with grab bar A Sit-Stand, Level of [place]: supervised Stand-Sit, Level of [place]: supervised Hyy-Dzhpg-Sku, Assistive Device: 2 wheeled walker (FWW), bariatric Toilet, Level of [place]: supervised Toilet, Assistive Device: grab bars Safety Issues: sequencing ability decreased, step length decreased, weight-shifting ability decreased Impairments: coordination impaired Bed Mobility Pt with HOB fully elevated, no phys A needed for OOB, increased time/effort Assistive Device: HOB elevated, bed rails Supine to Sit, Level of [place]: supervised Sit to Supine, Level of [place]: not tested Safety Issues: decreased use of [...] STG Review Date 05/04/18 at 04/27/2018 1206 Pphcte-Cmi-Qojbmp Goal Most Recent Value STG Status new at 04/27/2018 1206 STG [place] Level modified independent at 04/27/2018 1206 STG Assistive Device none at 04/27/2018 1206 STG Comments simulate home environment at 04/27/2018 1206 Rzy-Hiega-Lan Goal Most Recent Value STG Status new at 04/27/2018 1206 STG [place] Level modified independent at 04/27/2018 1206 STG Comments with or w/o AD at 04/27/2018 1206 Khs-Fctqj-Rgw Goal Most Recent Value STG Status new at 04/27/2018 1206 STG [place] Level modified independent at 04/27/2018 1206 STG Comments with or w/o AD at 04/27/2018 1206 Gait Goal Most Recent Value STG Status new at 04/27/2018 1206 STG [place] Level modified independent at 04/27/2018 1206 STG [...] rounding during day shift and q2h during archival records clerk. Answer call light i n person and/or [...] well between cares. lan of Care - [facility] Eder Sera, TELEVISION ENGINEER - 04/26/2018 4:07 PM PSTProblem: Patient Care [...] rounding during day shift and q2h during archival records clerk. Answer call light i n person and/or [...] rounding during day shift and q2h during archival records clerk. Answer call light i n person and/or [...] cares. lan of Care - Eva Piper, TELEVISION ENGINEER - 04/25/2018 8:50 PM PSTProblem: Patient Care [...] rounding during day shift and q2h during archival records clerk. Answer call light i n person and/or [...] her eq uipment back in". lan of [facility], [place] - Madeline Hollis RN - 04/25/2018 4:18 [...] rounding during day shift and q2h during archival records clerk. Answer call light i n person and/or [...] to sleep well between ca res. lan [facility] - Kyle Nichols RRT - 04/24/2018 [...] rounding during day shift and q2h during archival records clerk. Answer call light i n person and/or [...] needed. lan of Care - Mary Cabrera, [facility] - 04/24/2018 1:06 PM PSTDischarge Planning Goal: Pt to be discharged in a safe manner Summary /Intervention: Met with patient to discuss potential discharge needs. Tiny is alert and well oriented, lying in bed. Pt states she lives alone in a single level [facility] [place]. She appears to be well co [facility]nected with [facility]. She has a nurse, Luis Antonio [...] room). Pt reports that she was in [place] for 22 days, only recently discharged home. Pt hopes to be able to discharge directly home. States her sister will provide transportati on. Plan: CM to follow Anticipate return home with support from [facility]. Keep [facility] updated on her discharge needs Electronically signed [...] rounding during day shift and q2h during archival records clerk. Answer call light i n person and/or [...] od cough. lan of Da - Joanne Chairez RN - 04/24/2018 3:00 [...] rounding during day shift and q2h during archival records clerk. Answer call light i n person and/or [...] L?MRN: | | | | | | [id number] | | | [id number] | | | riteri | | | [...] | | | St. | | | [place] | | | y | | | [...] | | | St. | | | [place] | | | y | | | [...] | | | St. | | | [place] | | | y | | | [...] | | | St. | | | [place] | | | y | | | [...] | | | St. | | | [place] | | | y | | | [...] | | | St. | | | [place] | | | y | | | [...] | | | St. | | | [place] | | | y | | | [...] | | | St. | | | [place] | | | y H. | | [...] | | | St. | | | [place] | | | y H. | | [...] | | | St. | | | [place] | | | y H. | | [...] | | | St. | | | [place] | | | y H. | | | Pendl. | | | [place] | | | Emerge | | | ncy | | | Chief | | | Compla | | | int: | | | ABD | | | PAIN | | | Dec 3, | | | 2018 | | | [facility] | | | [facility] | | | [place] | | | y H. | | [...] | | | St. | | | [place] | | | y H. | | [...] | | | St. | | | [place] | | | y H. | | [...] | | | St. | | | [place] | | | y H. | | [...] | | | St. | | | [place] | | | y H. | | [...] | | | St. | | | [place] | | | y H. | | [...] | | | St. | | | [place] | | | y H. | | [...] | | | ent/f7 | | | [id number] | | | -[id number]- | | | [...] [address] | [place] | [phone] | | [facility] | | [address] | | | - LABORATORY | | [...] | 1.07 | 0.60 - 1.30 | [facility] | | | | | mg/dL | [facility] | | | | | | MEDICAL | | | | | | CENTER - | | | | | | LABORATORY | | + + + + + + | eGFR, | 56 (L)Comment: | >=60 | [facility] | | | non- | GLOMERULAR FILTRATION | mL/min/1.73m2 | [facility] | | | [facility] | RATE,ESTIMATED | | MEDICAL | | | | mL/min/1.85c5Ebws than | | CENTER - | | [...] + | [facility] | [address] | [place] | [phone] | | [facility] | | [address] | | | - LABORATORY | | [...] [address] | [place] | [phone] | | [facility] | | [address] | | | - LABORATORY | | [...] [address] | [place] | [phone] | | [facility] | | [address] | | | - LABORATORY | | [...] | | | | mmol/L | [facility] | | | | [...] 11 | 7 - 18 mg/dL | [facility] | | | | | | . [facility] | | | | | | MEDICAL | | | | | | CENTER - | | | | | | LABORATORY | | + + + + + + | Creatinine | 1.10 | 0.60 - 1.30 | [facility] | | | | | mg/dL | [facility] | | | | | | MEDICAL | | | | | | CENTER - | | | | | | LABORATORY | | + + + + + + | eGFR, | 54 (L)Comment: | >=60 | [facility] | | | non- | GLOMERULAR FILTRATION | mL/min/1.73m2 | [facility] | | | [facility] | RATE,ESTIMATED | | MEDICAL | | | | mL/min/1.92a9Tkmz than | | CENTER - | | [...] + | [facility] | [address] | [place] | [phone] | | [facility] | | [address] | | | - LABORATORY | | [...] + | [facility] | [address] | [place], [place] | [phone] | | [facility] | | [address] | | | - LABORATORY | | [...] [address] | [place] | [phone] | | [facility] | | [address] | | | - LABORATORY | | [...] 9 | 7 - 18 mg/dL | [facility] | | | | | | [facility] | | | | | | MEDICAL | | | | | | CENTER - | | | | | | LABORATORY | | + + + + + + | Creatinine | 1.03 | 0.60 - 1.30 | [facility] | | | | | mg/dL | [facility] | | | | | | MEDICAL | | | | | | CENTER - | | | | | | LABORATORY | | + + + + + + | eGFR, | 59 (L)Comment: | >=60 | [facility] | | | non- | GLOMERULAR FILTRATION | mL/min/1.73m2 | [facility] | | | [facility] | RATE,ESTIMATED | | MEDICAL | | | | mL/min/1.93e1Ahxq than | | CENTER - | | [...] [address] | [place] | [phone] | | [facility] | | [address] | | | - LABORATORY | | [...] [address] | [place] | [phone] | | [facility] | | [address] | | | - LABORATORY | | [...] | 1.11 | 0.60 - 1.30 | [facility] | | | | | mg/dL | [facility] | | | | | | MEDICAL | | | | | | CENTER - | | | | | | LABORATORY | | + + + + + + | eGFR, | 54 (L)Comment: | >=60 | [facility] | | | non- | GLOMERULAR FILTRATION | mL/min/1.73m2 | [facility] | | | [facility] | RATE,ESTIMATED | | MEDICAL | | | | mL/min/1.82d3Fgog than | | CENTER - | | [...] 7.9 (L) | 8.3 - 10.5 | [facility] | | | | | mg/dL | [facility] | | | | | | MEDICAL [...] + | [facility] | [address] | [place] | [phone] | | [facility] | | [address] | | | - LABORATORY | | [...] ranges: Trim. Absolute (K/uL) Percentage (%) | [facility] | | 1st 0.003-0.091 K/uL 0.0-0.9% 2nd 0.007-0.247 K/uL | [facility] | | 0.1-2.0% 3rd 0.018-0.456 K/uL 0.1-2.0% | - LABORATORY | + + + + + + + + | Performing | Address | City/State/Zipcode | Phone Number | | Organization | | | | + + + + + | [facility] | [address] | [place] | [phone] | | [facility] | | [address] | | | - LABORATORY | | [...] [address] | [place] | [phone] | | [facility] | | [address] | | | - LABORATORY | | [...] + | [facility] | [address] | [place] | [phone] | | [facility] | | [address] | | | - LABORATORY | | [...] mL/min/1.73m2 | [facility] | | | [facility] | RATE,ESTIMATED | | MEDICAL | | | | mL/min/1.85v0Xsqk than | | CENTER - | | [...] [address] | [place] | [phone] | | [facility] | | [address] | | | - LABORATORY | | [...] | | | | EREN NICOLE MD ([id number]) | | | | | | on [...] mL/min/1.73m2 | [facility] | | | [facility] | RATE,ESTIMATED | | MEDICAL | | | | mL/min/1.97o7Gdnt than | | CENTER - | | [...] [address] | [place] | [phone] | | [facility] | | [address] | | | - LABORATORY | | [...] ranges: Trim. Absolute (K/uL) Percentage (%) | [facility] | | 1st 0.003-0.091 K/uL 0.0-0.9% 2nd 0.007-0.247 K/uL | [facility] | | 0.1-2.0% 3rd 0.018-0.456 K/uL 0.1-2.0% | - LABORATORY | + + + + + + + + | Performing | Address | City/State/Zipcode | Phone Number | | Organization | | | | + + + + + | [facility] | [address] | [place] | [phone] | | [facility] | | [address] | | | - LABORATORY | | [...] + | [facility] | [address] | [place] | [phone] | | [facility] | | [address] | | | - LABORATORY | | [...] [address] | [place] | [phone] | | [facility] | | [address] | | | - LABORATORY | | [...] 0.003-0.091 K/uL 0.0-0.9% 2nd 0.007-0.247 K/uL | [facility] | | 0.1-2.0% 3rd 0.018-0.456 K/uL 0.1-2.0% | - LABORATORY | + + + + + + + + | Performing | Address | City/State/Zipcode | Phone Number | | Organization | | | | + + + + + | [facility] | [address] | [place] | [phone] | | [facility] | | [address] | | | - LABORATORY | | [...] + | [facility] | [address] | [place] | [phone] | | [facility] | | [address] | | | - LABORATORY | | [...] mL/min/1.73m2 | [facility] | | | [facility] | RATE,ESTIMATED | | MEDICAL | | | | mL/min/1.50l9Qabf than | | CENTER - | | [...] ST. | [address] | [place] | [phone] | | [facility] | | [address] | | | - LABORATORY | | [...] | | Reticulocyt | | | [facility] | | | e Count | | [...] [address] | [place] | [phone] | | [facility] | | [address] | | | - LABORATORY | | [...] [facility] | | | | | | [facility] | | | | | | MEDICAL [...] [address] | [place] | [phone] | | [facility] | | [address] | | | - LABORATORY | | [...] + | [facility] | [address] | [place] | [phone] | | [facility] | | [address] | | | - LABORATORY | | [...] | | | | | mg/dL | [facility] | | | | | | MEDICAL | | | | | | CENTER - | | | | | | LABORATORY | | + + + + + + | eGFR, | 42 (L)Comment: | >=60 | [facility] | | | non- | GLOMERULAR FILTRATION | mL/min/1.73m2 | [facility] | | | [facility] | RATE,ESTIMATED | | MEDICAL | | | | mL/min/1.78k1Yuih than | | CENTER - | | [...] | | | | | mg/dL | [facility] | | | | | | MEDICAL [...] [address] | [place] | [phone] | | [facility] | | [address] | | | - LABORATORY | | | | + + + + + Magnesium (04/28/2018 6:07 AM PST) + +-------+ + + + | Component | Value | Ref Range | Performed | Pathologist | | | | | At | Signature | + +-------+ + + + | Magnesium | 2.1 | 1.8 - 2.5 mg/dL | [facility] | | | | | | [facility] | | | | | | MEDICAL [...] + | [facility] | [address] | [place] | [phone] | | [facility] | | [address] | | | - LABORATORY | | [...] mL/min/1.73m2 | [facility] | | | [facility] | RATE,ESTIMATED | | MEDICAL | | | | mL/min/1.72j9Fcee than | | CENTER - | | [...] [address] | [place] | [phone] | | [facility] | | [address] | | | - LABORATORY | | [...] 0.003-0.091 K/uL 0.0-0.9% 2nd 0.007-0.247 K/uL | [facility] | | 0.1-2.0% 3rd 0.018-0.456 K/uL 0.1-2.0% | - LABORATORY | + + + + + + + + | Performing | Address | City/State/Zipcode | Phone Number | | Organization | | | | + + + + + | [facility] | [address] | [place], [place] | [phone] | | [facility] | | [address] | | | - LABORATORY | | [...] + | [facility] | [address] | [place] | [phone] | | [facility] | | [address] | | | - LABORATORY | | [...] mL/min/1.73m2 | [facility] | | | [facility] | RATE,ESTIMATED | | MEDICAL | | | | mL/min/1.87v1Kany than | | CENTER - | | [...] [address] | [place] | [phone] | | [facility] | | [address] | | | - LABORATORY | | [...] + | [facility] | [address] | [place] | [phone] | | [facility] | | [address] | | | - LABORATORY | | [...] [address] | [place] | [phone] | | [facility] | | [address] | | | - LABORATORY | | [...] | mL/min/1.73m2 | [facility] | | | [facility] | RATE,ESTIMATED | | MEDICAL | | | | mL/min/1.07m9Edfq than | | CENTER - | | [...] [address] | [place] | [phone] | | [facility] | | [address] | | | - LABORATORY | | [...] + | [facility] | [address] | [place] | [phone] | | [facility] | | [address] | | | - LABORATORY | | [...] [address] | [place] | [phone] | | [facility] | | [address] | | | - LABORATORY | | [...] + | [facility] | [address] | [place] | [phone] | | [facility] | | [address] | | | - LABORATORY | | [...] + | [facility] | [address] | [place] | [phone] | | [facility] | | [address] | | | - LABORATORY | | [...] | mL/min/1.73m2 | [facility] | | | [facility] | RATE,ESTIMATED | | MEDICAL | | | | mL/min/1.07w1Tlee than | | CENTER - | | [...] [address] | [place] | [phone] | | [facility] | | [address] | | | - LABORATORY | | [...] + | [facility] | [address] | [place] | [phone] | | [facility] | | [address] | | | - LABORATORY | | [...] [address] | [place] | [phone] | | [facility] | | [address] | | | - LABORATORY | | [...] | | | | | mg/dL | [facility] | | | | | | MEDICAL | | | | | | CENTER - | | | | | | LABORATORY | | + + + + + + | eGFR, | 52 (L)Comment: | >=60 | [facility] | | | non- | GLOMERULAR FILTRATION | mL/min/1.73m2 | [facility] | | | [facility] | RATE,ESTIMATED | | MEDICAL | | | | mL/min/1.08q4Rwvn than | | CENTER - | | [...] | | | | | mg/dL | [facility] | | | | | | MEDICAL [...] [address] | [place] | [phone] | | [facility] | | [address] | | | - LABORATORY | | [...] | | | | | | [employer] | | | | | [...] + | [facility] | [address] | [place] | [phone] | | [facility] | | [address] | | | - LABORATORY | | [...] [address] | [place] | [phone] | | [facility] | | [address] | | | - LABORATORY | | [...] [address] | [place] | [phone] | | [facility] | | [address] | | | - LABORATORY | | [...] | | | | mmol/L | [facility] | | | | [...] (L) | 7 - 18 mg/dL | [facility] | | | | | | [facility] | | | | | | MEDICAL | | | | | | CENTER - | | | | | | LABORATORY | | + + + + + + | Creatinine | 1.02 | 0.60 - 1.30 | [facility] | | | | | mg/dL | [facility] | | | | | | MEDICAL | | | | | | CENTER - | | | | | | LABORATORY | | + + + + + + | eGFR, | 59 (L)Comment: | >=60 | [facility] | | | non- | GLOMERULAR FILTRATION | mL/min/1.73m2 | [facility] | | | [facility] | RATE,ESTIMATED | | MEDICAL | | | | mL/min/1.38i1Fxqf than | | CENTER - | | [...] + | [facility] | [address] | [place] | [phone] | | [facility] | | [address] | | | - LABORATORY | | [...] | | | | | | [employer] | | | | | [...] + | [facility] | [address] | [place] | [phone] | | [facility] | | [address] | | | - LABORATORY | | [...] | | | | | | [employer] | | | | | [...] ST. | [address] | [place] | [phone] | | [facility] | | [address] | | | - LABORATORY | | [...] | | | | EREN NICOLE MD ([id number]) | | | | | | on [...] [address] | [place] | [phone] | | [facility] | | [address] | | | - LABORATORY | | [...] [address] | [place] | [phone] | | [facility] | | [address] | | | - LABORATORY | | [...] | 0.96 | 0.60 - 1.30 | [facility] | | | | | mg/dL | [facility] | | | | | | MEDICAL | | | | | | CENTER - | | | | | | LABORATORY | | + + + + + + | eGFR, | >60Comment: GLOMERULAR | >=60 | [facility] | | | non- | FILTRATION | mL/min/1.73m2 | [facility] | | | [facility] | RATE,ESTIMATED | | MEDICAL | | | | mL/min/1.86s8Stez than | | CENTER - | | [...] + | [facility] | [address] | [place] | [phone] | | [facility] | | [address] | | | - LABORATORY | | [...] [address] | [place] | [phone] | | [facility] | | [address] | | | - LABORATORY | | [...] | + + + + + | [facility] | [address] | [place] | [phone] | | [facility] | | [address] | | | - LABORATORY | | [...] [address] | [place] | [phone] | | [facility] | | [address] | | | - LABORATORY | | [...] | + + + + + | [facility] | [address] | [place] | [phone] | | [facility] | | [address] | | | - LABORATORY | | [...] [address] | [place] | [phone] | | [facility] | | [address] | | | - LABORATORY | | [...] | | | | | | [employer] | | | | | [...] [address] | [place] | [phone] | | [facility] | | [address] | | | - LABORATORY | | [...] | | | | | mg/dL | [facility] | | | | | | MEDICAL | | | | | | CENTER - | | | | | | LABORATORY | | + + + + + + | eGFR, | 53 (L)Comment: | >=60 | [facility] | | | non- | GLOMERULAR FILTRATION | mL/min/1.73m2 | [facility] | | | [facility] | RATE,ESTIMATED | | MEDICAL | | | | mL/min/1.19n2Jfmu than | | CENTER - | | [...] | 8.4 | 8.3 - 10.5 | [facility] | | | | | mg/dL | [...] [address] | [place] | [phone] | | [facility] | | [address] | | | - LABORATORY | | [...] 1st 0.003-0.091 K/uL 0.0-0.9% 2nd 0.007-0.247 K/uL [facility] | | 0.1-2.0% [facility] 0.018-0.456 K/uL 0.1-2.0% | - LABORATORY | + + + + + + + + | Performing | Address | City/State/Zipcode | Phone Number | | Organization | | | | + + + + + | [facility] | [address] | [place] | [phone] | | [facility] | | [address] | | | - LABORATORY | | [...] | | | | EREN NICOLE MD ([id number]) | | | | | | on [...] + + | Coronary artery disease involving [place] coronary artery, angina presence unspecified, | | unspecified whether [place] or transplanted heart | + + | [...] | | | | PRN, Pain, Starting [facility] 04/29/18 | | AM PST | [...]
--- OUTSIDE RECORDS SUMMARY | ~2019-10-30 | XMS | Encounter Summary ---
Demographics + + + | Address | [address] | | | [place] [address] | + + + | Home Phone | | + + + | Preferred Language | Unknown | + + + | Marital Status | Single | + + + | Scientologist Affiliation | [id number] | + + + [...] | + + +---------+ + | Parisa Crockettler | ECON | Unknown | | + + +---------+ + | Sandra Oro | ECON | Unknown | | + + +---------+ + Care Team Providers + +------+ + | Care [employer] Operator Name | Role | Phone | + +------+ + | Keaton Wade MD | PCP | | + +------+ + Encounter Details +--------+ + + + + | Date | Type | Department | Care Team | Description | +--------+ + + + + | 10/23/ | Telephone | [facility] | Joes Riojas MD | | | 2020 | | OTOLARYNGOLOCY | [address] | | | | | SERVICES [address] | [address] | | | [address] [place] | [place] [address] | | | | | [place] [address] | [phone] | | | | | [phone] | | | +--------+ + + + [...] Miscellaneous Notes Telephone Encounter - Cindy Doran, Electrophysiology Tech - 10/25/2019 12:53 PM SOREN mai calling patient 2 times but it keeps saying that its a none working number. We don't have auth yet. elephone Encounter - Pau Mosqueda - 10/24/2019 9:07 AM PDTPatient called to marty milligan with [facility] in regards to "whether or not they have received approvalfor her to have surge ry. She knows that [employer] sent it over, had her other insurance approved it?". Please ad vise and call patient back at [phone] signed by Pau Mosqueda at 020 9:08 AM PDTdocumented in this encounter Plan of Treatment Not on filedocumented as of this encounter Visit Diagnoses Not on filedocumented in this encounter
--- OUTSIDE RECORDS SUMMARY | ~2019-10-30 | XMS | Encounter Summary ---
Demographics + + + | Address | [address] | | | [place] [address] | + + + | Home Phone [...] + + | Author | [facility] | | | and [place] | + + + | Organization | 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
--- OUTSIDE RECORDS SUMMARY | ~2019-10-30 | XMS | Encounter Summary ---
Demographics + + + | Address | [address] | | | [place] [address] | + + + | Home Phone [...] Author + + + | Author | [facility] | | | and [place] | + + + | Organization | [facility] | [...] Team Providers + +------+ + | Care Services Advisor Name | Role | Phone | + [...] + + | 03/15/ | Telephone | [facility] | Jose Riojas MD | Appointment | | 2017 | | OTOLARYNGOLOGY [address] | [address] | | | | | [address] | [address] [facility] | | | | | [place], [place] | [place] [address] | | | | | [address] | [phone] | | | | | [phone] | | | +--------+ + + + [...] a time. I call Yesica remy at [facility] and asked her to send over a referral for patient. documented in this encounter Plan of Treatment Not on filedocumented as of this encounter Visit Diagnoses Not on filedocumented in this encounter"
--- NOTE | 2019-10-31 00:23 | NUR ---
VISTARIL GIVEN PER ITCHING, OPENS EYES ESILY, NIKION L SIDE, ROOM AIR, VIF INFUSING
--- NOTE | 2019-10-31 00:39 | NUR ---
dr arteaga notified of ciwa score 12, of body rash over back, buttocks and r thigh,increased pts anxiety and pt etoh intake. new orders obtained for vistaril 25mg q6h prn anxiety/itching and benadryl 12.5mg po q6h itching. will reassess etoh needs in am
--- NOTE | 2019-10-31 01:12 | NUR ---
vISTARIL 25 MG PO GIVE PERITCHING, RASH STILL PRESENT, R BACK, BOTH UPPER BUTTOCKS AND MORE ON r BUTTOCKS AND R HIP/THICH AREA.
--- NOTE | 2019-10-31 02:20 | NUR ---
DECREAED AREAS OT RAISED RASH NOTED ON BACK, BUTTOCUKS AND R THIGH, RASH STILL PRESENT. NO CHANGES R BELOW KNEE AREA REDNESS
--- NOTE | 2019-10-31 03:01 | NUR ---
PT UP TO BR, 1pa sba, VOIDED LARGE AMOUNTS OF DARK COLORED URINE, NO FURTHER C/O PAIN, DECREAED REDNESS AND DECREASED DEPTH AND SIZE OF RAISED RASH NOTED. PINPOINT RASH OVER BACK-LOW MID BACK ALONGSIDE SPINE, L UPPER BUTTOCKS AND ALL R BUTTOCKS RAISED RASH STILL PRESENT. NO MORE RASH NOTED OVER R THIGH AND HIP AREA AND ABD ALL GONE. RED RASH OVER CHEST AND ARMS STILL THE SAME. R BELOW THE KNEE CELLULITIS W NO CHANGES, SCATTERED RASH OVER L HIP DOWN TO LEG NO CHANGES, DECLINES NEED FOR MORE BENADRYL. AWAKE DRINKING FLUIDS. SCABBED OVER AREAS ON R ELBOW HEALING, R KNEE BANDAID OVER WITH OLD DRAINAGE
--- NOTE | 2019-10-31 05:50 | NUR ---
TEMP 108, RECEIVED TYLENOL 650MG PO, C/O [place] TYLENOL ABOVE AND ICE TO BACK OF HEAD GIVE, DECLINES TO GET UP TO BR HSE GOT UP LIKE ABOUT 3AM AND VOIDED LARGE AMOUNT OF URINE. TOLERATING FLUIDS WELL, DIET POP GIVEN EARLIER, NO DRY HEAVING, NO EMESIS, REPOSITIONES SELF INBED
--- NOTE | 2019-10-31 05:53 | NUR ---
PT ON ROOM AIR. HAS A RASH ALL OVER HER BODY NOT RELATED TO ABX GIVEN IN ED. PT WAS ADMITTED TO ED AND THIS FLOOR WITH RASH. PT DENIES KNOWING WHERE SHE GOT IT FROM. RED RAISED AREA WAS NOTED ON BACK FOLLWING SPINE AREA FROM NECK TO BUTTOCKS, MID BACK TO BUTTOCKS AND R HIP AND THIGH. RECEIVED VISTARIL 25 MG EARLIER PER INCREASED AGITATION AND ITCHING. RASH OVER UPPER BACK AND R UPPER LEG HEALED, RAISED RASH OVER LOW BACK, BUTTOCKS AREA STILL PRESENT, RED RASH OVER FRONT CHEST AND L LEG PRESENT BUT DIMINISHED. R KNEE AKILA BANDAGE WHERE PT HAD SUTURES IN PLACE, EDEMA AND TENDER TO TOUCH, CELLULITIS OF L LEG, EDEMA OF ANKLE AND FOOT PRESENT W/O CHANGES, ELEVATED. PT MOANS AND GROANS AND C/O ABD PAIN. BUT DENIES NEEDING ANYTHING FOR IT. CIWA SCORES 12 ON ADMIT AND 4 ERLIER THIS SHIFT. PT DRINKS 3-6 BEERS A DAY. STATED NONE LAST 2 DAYS. ANXIOUS, CALMS DOWN EASILY. CURRENT TEMP 100.8 AND C/O MACHADO, TYLENOL GIVEN AND ICE TO BACK OF HEAD, NO EMESIS. BED ALARM ON, VOIDED LARGE AMOUNTS OF LIGHT EUGENIA COLORED URINE, PT ADMITTED WITH UTI.
--- NOTE | 2019-10-31 07:41 | NUR ---
PT RESTING EYES CLOSED REPORT RECEIVED
--- NOTE | 2019-10-31 09:15 | NUR ---
SLEEPING. WILL CHECK BACK LATER.
--- NOTE | 2019-10-31 10:07 | NUR ---
PATIENT COMPLAINING OF BEING COLD, WARM BLANKET GIVEN. PATIENT STATES SHE IS IN 8 OUT OF 10 PAIN, RN NOTIFIED. CALL LIGHT IN REACH. NO FURTHER NEEDS AT THIS TIME.
--- NOTE | 2019-10-31 10:38 | NUR ---
PT UP TO THE CHAIR FOR MORNING MEAL TOLERATES 70%. PT C/O PAIN RN TO ROOM WITH PAIN MEDICATIONS SHE IS SNORING SOFTLY APPEARS TO BE SLEEPING SOUNDLY.
--- NOTE | 2019-10-31 11:27 | NUR ---
SLEEPING. DIDN'T AWAKEN TO NAME. WILL CHECK BACK LATER.
--- NOTE | 2019-10-31 12:56 | NUR ---
PT AGREES HER ABDOMEN PAIN HAS RESOLVED. SITTING UP IN BED EATS 100% OF NOON MEAL, TALKING ON THE PHONE AT THIS TIME. DENIES FURTHER NEEDS
--- NOTE | 2019-10-31 14:19 | NUR ---
PT WAS ALERT, ORIENTED AND PLEASED THAT I STOPPED BY. PT SHARED OF HER MISHAP FALLING IN STORE AND GETTING CUT AND SUBSEQUENT RASH AND DISCOMFORT. THE RASH IS GONE, PT SAID SHE IS FEELING BETTER. GAVE BLESSING AND LEFT A G.POST. WILL FOLLOW
--- NOTE | 2019-10-31 14:59 | NUR ---
PT UP TO TOILET AND THEN TO THE CHAIR. NO FURTHER C/O ABDOMINAL PAIN. PT WATCHING TV AND TALKING ON THE PHONE. APPEARS UPBEAT AND TALKATIVE. ABX INFUSED. NO FURTHER RASH AREAS PRESENT NO C/O ITCHING OR OTHER. PT SUSPECTS RASH SHE HAD LAST NIGHT COULD BE FROM SOME LAVANDER PRODUCT SHE USED OR A DRESS SHE DOESN'T NORMALLY WEAR. ISSUE APPEARS RESOLVED.
--- NOTE | 2019-10-31 15:05 | NUR ---
PATIENT USING PHONE AND STAFF IN WITH HER. WILL CHECK BACK LATER.
[2019-10-31] MEDS ORDERED: HYDROXYZINE PAM25 MG PO (15:39)
[2019-10-31] MEDS ORDERED: BUMETANIDE0.5 MG PO (15:41)
--- NOTE | 2019-10-31 16:35 | EKG ---
[facility] [address] [facility] [place], [place] [address] Signed Sinus tachycardia Anterolateral infarct (cited on or before 01-FEB-2016) Abnormal ECG When compared with ECG of 30-OCT-2019 20:13, (Unconfirmed) No significant change was found Confirmed by KAIN DIETRICH DO ([id number]) on 10/31/2019 4:35:08 PM Electronically Signed By: KAIN DIETRICH DO 10/31/19 1635 PATIENT NAME: KAMILAH IBARRA Electrocardiogram DATE OF : 75 PHYSICIAN: KAIN DIETRICH DO REPORT #: [id number] REPORT IS CONFIDENTIAL AND NOT TO BE RELEASED WITHOUT AUTHORIZATION
--- NOTE | 2019-10-31 18:25 | NUR ---
PATIENT UP TO BATHROOM. JASION GARZA, RN NOTIFIED. CALL LIGHT IN REACH. NO FURTHER NEEDS AT THIS TIME.
--- NOTE | 2019-10-31 19:15 | NUR ---
BEDSIDE REPORT RECEIVED FROM OFFGOING RNESTELLA. PT RESTING IN BED WITH EYES CLOSED. DOES NOT WAKE DURING REPORT. CALL LIGHT IN REACH.
--- NOTE | 2019-10-31 20:59 | NUR ---
PRIMARY RN IS AWARE RE TEMP.
--- NOTE | 2019-10-31 21:11 | NUR ---
PT ASSESSMENT COMPLETE. PT REPORTS PAIN 7/10 TO ABDOMEN AND HEADACHE. PRN ADMINISTERED, SEE EMAR. PT REPORTS NAUSEA, PRN ONDANSETRON ADMINISTERED. PT REPORTS SLIGHT SOB. LUNG SOUNDS CLEAR. SAO2 WNL. PT REPORTS TENDERNESS TO ABD PALPATION. BT'S ACTIVE. PT REPORTS CHRONIC NUMBNESS AND TINGLING TO BLE. REDNESS AND WARMTH TO RLE. GENERALIZED EDEMA PRESENT TO BLE. CMS INTACT. IV TO B HANDS FLUSHED, WNL. PT DENIES FURTHER NEEDS AT THIS TIME. CALL LIGHT IN REACH.
--- NOTE | 2019-10-31 21:25 | NUR ---
NOTIFIED OF CONTINUED ELEVATED TEMP. NO NEW ORDERS RECEIVED.
--- NOTE | 2019-10-31 22:49 | NUR ---
PT RESTING IN BED WITH EYES CLOSED. WAKES WHILE AUTOMOTIVE WELDER IN ROOM. PT REQUESTS ICE PACK, DIET SODA, AND APPLE JUICE; PROVIDED. PT DENIES FURTHER NEEDS. CALL LIGHT IN REACH.
--- NOTE | 2019-11-01 03:45 | NUR ---
PT ASSESSMENT COMPLETE. PT UTILIZES CALL LIGHT, REQUESTS TO USE THE BATHROOM. PT UP TO BR AND BACK TO BED WITH SBA. TOLERATED WELL PT REPORTS PAIN UNCHANGED FROM PREVIOUS ASSESSMENT, 09/22 TO HEADACHE, STOMACH, AND ALSO STATES THAT RLE IS BEGINNING TO HURT. PRN ADMINISTERED, SEE EMAR. PT REPORTS CONTINUED NAUSEA. PRN ADMINISTERED, SEE EMAR. PT DENIES SOB. COUGH NOTED DURING ASSESSMENT. PT DENIES PRODUCTIVE. TEMP RECHECKED, 101.4, PRN ADMINISTERED SEE EMAR. BLE WITH GENERALIZED EDEMA. RLE HOT AND RED, UNCHANGED FROM PREVIOUS. ICE PACK PROVIDED PER PT REQUEST FOR HER HEADACHE. IV SITE FLUSHED X 2, WNL. PT DENIES FURTHER NEEDS AT THIS TIME. CALL LIGHT IN REACH.
--- NOTE | 2019-11-01 07:21 | NUR ---
PT UP IN CHAIR AT TIME OF REPORT HOLDING EMESIS BAG WITHOUT EMESIS C/O NAUSEA. ZOFRAN HAS ALREADY BEEN ADMINISTER. PT ALSO C/O HEADACHE, FOR WHICH TYLENOL WAS GIVEN. ICE BAG PROVIDED PER REQUEST, PT RETURNS TO RESTING IN BED EYES CLOSED. CALL LIGHT IN REACH, DENIES FURTHER REQUEST
--- NOTE | 2019-11-01 09:00 | NUR ---
Attempted to see pt. x 2. She is sleeping both visits. Will return tomorrow for CM assessment.
--- NOTE | 2019-11-01 09:20 | NUR ---
PT AGREES SHE IS STILL NAUSEATED, TREATED WITH PHENERGAN. PT EATS 100% OF MORNING MEAL. PT STATES THIS IS THE 4TH UTI SINCE NEW YEARS. DISCUSSED AT LENGTH POSSIBLE CAUSES. PT STATES SHE IS UNABLE TO WIPE FRONT TO BACK DUE TO OBESITY. SUGGESTED SHE GET A TOOL THEY HAVE FOR THIS PURPOSE TO MAKE IT EASIER AND AVOID CROSS CONTAMINATION, SHE AGREES. DC TISSUE COORDINATOR NOTIFIED OF NEED TO CONTACT [employer] FOR THIS TOOL. PT RESTING NOW EYES CLOSED SNORING SOFTLY APPEARS COMFORTABLE
--- NOTE | 2019-11-01 09:41 | NUR ---
PATIENT UP TO BATHROOM AND BACK TO BED, IND. LINENS CHANGED. WARM BLANKET GIVEN. CALL LIGHT IN REACH. NO FURTHER NEEDS AT THIS TIME
--- NOTE | 2019-11-01 10:51 | NUR ---
DR DIETRICH IN TO SEE PT DISCUSSED HER NEEDS AND UPDATED HER ON CONDITION WELL PLAN OF CARE. QUESTIONS ANSWERED. ORDERS GIVEN PT RETURNS TO RESTING EYES CLOSED
--- NOTE | 2019-11-01 11:59 | NUR ---
PT RESTING SOUNDLY
--- NOTE | 2019-11-01 14:29 | NUR ---
PT ALERT, ORIENTED AND FINISHING UP LUNCH. SEEMED TO ENJOY, LAST NIGHT NAUSEA KEPT HER FROM EATING. PT STATED BLOOD CULTURES SHOWED POSITIVE FOR INFECTION. PT BEGAN ITCHING MORE THE LONGER I WAS WITH PT. SHE IS WAITING FOR A SHOWER AFTER LUNCH AND FEELS THAT WILL TAKE CARE OF ITCHING. GAVE BLESSING, WILL FOLLOW
--- NOTE | 2019-11-01 14:55 | NUR ---
PT TO SHOWER DENIES NEED OF ASSIST. APPEARS STEADY ON HER FEET, HAS USED CALL LIGHT APPROPRIATELY ENTIRE SHIFT, AGREES TO CALL FOR ANY NEEDED ASSIST. PERSONAL CARE ITEMS PROVIDED.
--- NOTE | 2019-11-01 15:00 | NUR ---
PATIENT FINISHED SHOWER INDEPENDENTLY, PROVIDED NEW MESH PANTIES AND SOCKS. FRESHENED LINENS AND CHANGED BANDAGE ON RIGHT KNEE. PATIENT BACK TO BED, CALL LIGHT IN REACH AND DECLINES FURTHER NEEDS AT THIS TIME.
--- NOTE | 2019-11-01 17:00 | NUR ---
PT DENIES ANY FURTHER NAUSEA SINCE PHENERGAN. REPORTS A TERRIBLE HEADACHE AGAIN AND CONTINUED ABDOMINAL PAIN. PT REPORTS FINDING A TAMPON STILL INSERTED SINCE THURSDAY SHE WAS ABLE TO REMOVE. REPORTED TO . NO ORDERS.
--- NOTE | 2019-11-01 17:41 | NUR ---
NEW IV SITE ESTABLISHED MEDICATED FOR PAIN. EVENING MEAL ARRIVES PT IS EATING AT THIS TIME.
--- NOTE | 2019-11-01 18:14 | NUR ---
PATIENT IN BED WATCHING TV. TEMP REPORTED TO RN. CALL LIGHT IN REACH. NO FURTHER NEEDS AT THIS TIME.
--- NOTE | 2019-11-01 19:53 | NUR ---
PATIENT RESTING IN BED, ICE PACK ON HER FORHEAD, STILL HAS A MACHADO. REPORT GIVEN FROM BRITTNY PILLAI. CALL LIGHT IN REACH.
--- NOTE | 2019-11-01 22:10 | NUR ---
PATIENT RESTING QUIETLY IN BED EYES CLSOED, RESPIRATIONS REGULAR AND EVEN. CALL LIGHT IN REACH.
--- NOTE | 2019-11-02 00:32 | NUR ---
PATIENT RESTING QUIETLY, EYES CLOSED, LIGHT SNORE, CALL LIGHT IN REACH.
--- NOTE | 2019-11-02 02:19 | NUR ---
CALL LIGHT ANSWERED. PT UP TO TOILET TO VOID. PT REQUESTS NEW ICE PACK AND 7U-P SODA WHICH IS PROVIDED. PT RETURNED TO BED. CALL LIGHT WITHIN REACH, BEDSIDE TABLE WITHIN REACH. NO FURTHER REQUESTS AT THIS TIME
--- NOTE | 2019-11-02 02:20 | NUR ---
PATIENT HAS TAKEN HE CPAP OF AND DOES NOT WANT TO WEAR IT ANYMORE. SATS 91% ON ROOM AIR, PATIENT GOING TO SLEEP. CALL LIGHT IN REACH.
--- NOTE | 2019-11-02 04:36 | NUR ---
PATIENT HAS BEEN RESTING WELL MOST OF THE NIGHT SINCE EVENING MED PASS WHEN SHE GOT 10MG PO OXYCODONE FOR 6/10 MACHADO AND BILATERAL LEG PAIN. PATIENT REMAINS RESTING AT THIS TIME, RESPIRATIONS REGULAR AND EVEN, EYES CLOSED. CALL LIGHT IN REACH.
--- NOTE | 2019-11-02 07:53 | NUR ---
EXECUTIVE ACCOUNT MANAGER IN TO SEE PATIENT. PATIENT ENDORSES CHEST, ABDOMEN AND HEADACHE. VITALS ARE NORMAL OTHER THAN TEMP OF 100.9, ZOFRAN GIVEN FOR NAUSEA, RT IN TO DO EKG.
--- NOTE | 2019-11-02 08:11 | NUR ---
DR. DEVINE IN TO REVIEW EKG, COMPARE IT WITH PAST EKG, APPEARS TO BE STABLE. PATIENT IS HAVING NEB TX, 2MG OF IV MORPHINE GIVEN FOR DISCOMFORT. PATIENT IS RESTLESS IN BED.
--- NOTE | 2019-11-02 08:20 | NUR ---
MORNING ASSESSMENT DONE, PATIENT REPORTS PAIN IS REDUCE TO 7/10 AND ENCOURAGED TO RELAX MUCH POSSIBLE.
--- NOTE | 2019-11-02 08:24 | NUR ---
PATIENT HAS SETTLED DOWN A BIT, LESS TEARFUL, UP TO BATHROOM TO VOID. PATIENT IS STABLE ON FEET.
--- NOTE | 2019-11-02 09:00 | NUR ---
Pt lives in [place]. Brother in law lives next door with 2 nephews. Pt. states family assists her as needed as she does not drive. Has someone stayng with her until Thursday. Pt states they are leaving as she does not tolerate people in her home. She uses a walker, wc, shower chair, and a cane. She uses [facility] for alcohol counseling. Pt plans on discharging to home when cleared medically. During our visit pt began complaining of chest tightness and inability to breath. Rn notified and to room.
--- NOTE | 2019-11-02 09:24 | NUR ---
VITALS AND I&OS CHARTED. OPTICAL MANAGER LORY IN TO VISIT PATIENT. CALL LIGHT IN REACH
--- NOTE | 2019-11-02 12:29 | NUR ---
PATIENT SITTING UP IN BED TO EAT LUNCH.
--- NOTE | 2019-11-02 13:28 | NUR ---
VITALS AND I&OS CHARTED. PATIENT C/O RIGHT EAR PAIN "FEELS HOT" FREYA CARRILLO NOTIFIED. CALL LIGHT IN REACH, NO OTHER NEEDS AT THIS TIME
--- NOTE | 2019-11-02 14:39 | EKG ---
[facility] [address] [facility] [place], [place] [address] Signed Sinus rhythm with 1st degree AV block Septal infarct (cited on or before 01-FEB-2016) Abnormal ECG When compared with ECG of 30-OCT-2019 20:14, OK interval has increased Nonspecific T wave abnormality, worse in Lateral leads Confirmed by TRENT DEVINE MD ([id number]) on 11/02/2019 2:38:54 PM Electronically Signed By: TRENT DEVINE MD 11/02/19 1439 PATIENT NAME: KAMILAH IBARRA Electrocardiogram DATE OF : 75 PHYSICIAN: TRENT DEVINE MD REPORT #: [id number] REPORT IS CONFIDENTIAL AND NOT TO BE RELEASED WITHOUT AUTHORIZATION
--- NOTE | 2019-11-02 15:32 | NUR ---
PATIENT SLEEPING WITH REGULAR RESPIRATIONS.
--- NOTE | 2019-11-02 15:47 | NUR ---
DINNER ORDERED, PATIENT IN BATHROOM, LINENS CHANGED. WILL CALL IF ASSISTANCE IS NEEDED
--- NOTE | 2019-11-02 17:10 | NUR ---
PATIENT SITTING UP IN BED, EATING DINNER. DENIES PAIN OR NAUSEA AND ANY DISCOMFORT AT THIS TIME. WILL CONTINUE TO MONITOR.
--- NOTE | 2019-11-02 18:04 | NUR ---
PATIENT ENDORSES FEELING BETTER TODAY, HAS LESS NEED OF PAIN MEDICATION WITH ONE 5MG DOSE OF OXYCODONE. BANDAID REMOVED ON RIGHT KNEE, LACERATION IS WELL APPROXIMATED AND SUTURE HAVE BEEN REMOVED. PATIENT HAS 2 LIQUID BM'S TODAY. PATIENT HAS BEEN AFEBRILE AFTER LEVAQUIN ABX STARTED.
--- NOTE | 2019-11-02 19:10 | NUR ---
REPORT GIVEN TO ME FROM DAYSHIFT NURSE. PATIENT HAVING NO PAIN AT THIS TIME AND WATCHING TV IN BED. CALL LIGHT IN REACH.
--- NOTE | 2019-11-02 21:00 | NUR ---
PATIENT DENIES PAIN AT THIS TIME AND DENIES THE NEED FOR PAIN MEDS, PATIENT READY TO GET SOME SLEEP. CALL LIGHT IN REACH. LIGHTS TURNED DOWN.
--- NOTE | 2019-11-02 23:29 | NUR ---
PATIENT RESTING QUIETLY SUPINE , WITH EVEN AND REGULAR RESPIRATIONS, EYES CLOSED, CALL LIGHT IN REACH.
--- NOTE | 2019-11-03 01:18 | NUR ---
PATIENT RESTING QUIETLY IN BED WITH EQUAL AND REGULAR RESPIRATIONS. CALL LIGHT IN REACH. LIGHTS OUT.
--- NOTE | 2019-11-03 03:18 | NUR ---
CALL LIGHT ANSWERED. pt CLUTCHING RIGHT LOWER ABD AREA. RATES PAIN 7/10 IN HEAD, ABD, RIGHT LEG. PRN PAIN MEDICATION ADMINISTERED. C/O NAUSEA, PRN MEDICATION ADMINISTERED. ICE PACKS, ICE WATER, SPRITE PROVIDED. CALL LIGHT IN REACH.
--- NOTE | 2019-11-03 03:28 | NUR ---
PATIENT TRYING TO REST AFTER GETTING A PAIN PILL, DUMPED 850 OF URINE FROM HAT IN THE BATHROOM. CALL LIGHT IN REACH.
--- NOTE | 2019-11-03 04:26 | NUR ---
PATIENT RESTING QUIETLY NOW WITH EYES CLOSED AND EQUAL AND EVEN RESPIRATIONS ON HER LEFT SIDE. CALL LIGHT IN REACH.
--- NOTE | 2019-11-03 06:01 | NUR ---
PATIENT SLEPT UNTIL AFTER 3AM ON THIS SHIFT AND HAD NEEDED NO PAIN MEDICATION, AFTER 3AM PATIENT AWOKE WITH 7'10 RIGHT LEG PAIN. CHARGE NURSE RIRI GAVE PATIENT 5MG OXYCODONE AND SOME IV ZOFRAN FOR NAUSEA AND PATIENT WENT BACK TO SLEEP PAIN IS NOW 2/10. PATIENT HAD THE FIRST TEMP SHE HAS HAD BELOW 99.0F WITH AM VITALS RIGHT LEG STILL RED AND WARM, BUT SHE IS FEELING MUCH BETTER PREVIOUSLY STITCHED AREA ON RIGHT KNEE REMAINS UNCOVERED. PATIENT ESSENTIALLY INDEPENDENT IN THE ROOM. PATIENT DOWN 2 KILOGRAMS PER STANDING WEIGHT FROM YESTERDAY. PATIENT JUST UP TO THE BATHROOM AND BACK TO BED. CALL LIGHT IN REACH.
--- NOTE | 2019-11-03 09:16 | NUR ---
Discussed in IDT with Dr. Armenta. Plan for safe dc to home today. Called and spoke with Community Health Nurse at [facility] to see if they can follow up with pt. They will be closed tomorrow. They are willing to call on Thursday. She did state pt lives next door to family and they do assist her. Will discuss with Liv if she feels safe with dc to home today on po antibiotics.
--- NOTE | 2019-11-03 10:00 | NUR ---
Spoke with Liv. She would like to dc to home today. States she will have plenty of help with [place] and nephews, also has a brother who lives across the street and a sister who lives down the road. Reminded if she has prescription, [facility] will be closed tomorrow and she will need to vegetable picker today. She states understanding. She will call family for a ride after she speaks with Dr. Armenta.
--- NOTE | 2019-11-03 10:04 | NUR ---
PT CONTIOUES TO SIT AT THE EDGE OF THE BED WATCHING TV AND SHE HAD EATTEN BKF SITTING HERE. NO C/O'S AT THIS TIME.
[2019-11-03] MEDS ORDERED: LEVAQUIN750 MG PO (10:22)
--- NOTE | 2019-11-03 12:03 | NUR ---
PT DISCHARGE TO HOME, IV DC'D AT THIS TIME. PT UP TO SHOWER AND WILL GET DRESSED. RIDE FROM FAMILY TO BE HER BY 1PM.
--- NOTE | 2019-11-03 12:30 | NUR ---
PT ALERT, OREINTED AND SITTING ON SIDE OF BED. PT INFORMED ME THAT SHE IS TO DC LATER TODAY AND SEEMS EXCITED. RLE HAS IMPROVED, THANKED ME FOR VISITING. GAVE BLESSING
== END 2019-11-03 12:30 | disposition home or self-care (01) | DRG 872 ==
LOC: ED 19:53 → MS 23:13
PROVIDERS: ADMIT Student in an Organized Health Care Education/Training Program
DX: A41.01 Sepsis due to Methicillin susceptible Staphylococcus aureus (principal); L03.115 Cellulitis of right lower limb; N39.0 Urinary tract infection, site not specified; Z20.828 Contact with and (suspected) exposure to other viral communicable diseases; R65.20 Severe sepsis without septic shock; B96.20 Unspecified Escherichia coli [E. coli] as the cause of diseases classified elsewhere; E11.9 Type 2 diabetes mellitus without complications; K70.30 Alcoholic cirrhosis of liver without ascites; F10.10 Alcohol abuse, uncomplicated; D69.6 Thrombocytopenia, unspecified; F32.9 Major depressive disorder, single episode, unspecified; J44.9 Chronic obstructive pulmonary disease, unspecified; F41.9 Anxiety disorder, unspecified; I10 Essential (primary) hypertension; D64.9 Anemia, unspecified; E78.5 Hyperlipidemia, unspecified; S81.011D Laceration without foreign body, right knee, subsequent encounter; W18.30XD Fall on same level, unspecified, subsequent encounter; Z79.899 Other long term (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; Z79.51 Long term (current) use of inhaled steroids
CPT/HCPCS: 36415; 70450; 71045; 73590; 74177; 80048; 80053; 80202; 81001; 83605; 83735; 84100; 84703; 85025; 87040; 87070; 87077; 87088; 87186; 87205; 93005; 93010; 93308; 93971; 94640; 96361; 96365; 96375; 99285-25; J0696; J1956; J2270; J2405; J2550; J3370; J3475; J7060; J7121; Q0177; Q9967

== ENCOUNTER 2019-11-12 18:39 | Emergency (ER) | payer OTHER ==
[~2019-11-12] VITALS: Ht 175.3 cm; Wt 130.6 kg
--- OUTSIDE RECORDS SUMMARY | ~2019-11-12 | XMS | Encounter Summary ---
Demographics + + + | Address | [address] | | | [place] [address] | + + + | Home Phone | | + + + | Preferred Language | Unknown | + + + | Marital Status | Single | + + + | Pentecostalism Affiliation | 1041 | + + + | Race | or | + + + | Ethnic Group | Not or | + + + Author + + + | Author | [facility] | | | and [place] | + + + | Organization | [facility] | | | and [...] Team Providers + +------+ + | Care Blindmaker Name | Role | Phone | + +------+ + | Julita Cabral PA-C | PCP | | + +------+ + Reason for Visit + +--------+ + | Reason | Onset | Comments | | | Date | | + +--------+ + | Hospital Follow-up | 05/07/ | | | | 2018 | | + +--------+ + Encounter Details +--------+ + + + + | Date | Type | Department | Care Team | Description | +--------+ + + + + | 05/07/ | Telephone | [facility] | Irma Cason, | Hospital Follow-up | | 2018 | | [facility] | PharmD [address] | | | | | [address] | [facility] | | | | | [place] [address] | [place] [address] | | | | | [phone] | [phone] | | +--------+ + + + + [...] + + documented as of this encounter Miscellaneous Notes Telephone Encounter - Ewa Mancuso - 05/21/2018 11:09 AM PSTCLOSED REFERRAL. PT KRISTIE COLINDRES HAS REFERRAL TO CARDIOLOGY AT [facility] SPOKE WITH ALLEN AT JULITA CABRAL'S OFFICE AND SHE STATES THEY ALREADY HAVE A REFERRAL I N PLACE FOR CARDIOLOGY AT [facility]. PT HAS NOT BEEN SCHEDULED YET BUT THEY ARE WORKING ON. [phone] CC: CARDIOLOGY FINANCE CONSULTANT STAFF - IN BASKET NOTE ON REFERRAL FROM MIRANDA IN AUTHORIZATIONS [id number] signed by Ewa doe at 05/21/2018 11:10 AM PSTTelephone Encounter - Irma Cason PharmD - 05/07/2018 2: 54 PM PSTHospital Follow-Up Phone Call Date Discharged: 05/06/18 Diagnosis: CHF Name of caller: Irma Cason PharmD 05/07/2018 15:09 1. What diet are you following at home? 2 gram sodium/Low salt and fluid restriction, as well as low sugar. Additional Notes: Thirsty, but has sugar-free hard candy to keep mouth moist. 2. Have you been weighing yourself every day since you have been discharged? No If No, check patient's reasons(s) why: Still at sister's house, so doesn't have access to scale right now 3. Since your hospital discharge have you experienced any of the follow? Weight gain 2-3 pounds over night: (no scale) Increased shortness of breath with or without activity: No Increase swelling, edema: No Weight gain 2-3 lbs in 1 day or 5 lbs in 1 week: (no scale) Harder to breathe when lying down or lying flat: No Dry, hacking cough: No Feeling more tired, no energy: No Palpitations or heart racing: No Lightheaded or dizziness: No 4. Have you taken any extra water pills since you were discharged (rescue diuretics)? No 5. Do you have all the medications and prescriptions (if needed) that the doctor ordered fo r you to take when you were discharged (as listed on discharge paperwork)? Yes Medications reconciled over the phone with patient looking at prescription bottles? No Additional Notes: Patient was tired, just woke up from nap. Did go over new medications, d iscontinued medications, and medications with updated sigs (lactulose). 6. Have you missed taking any medications listed on your discharge instructions since you h ave been discharged? No 7. What questions do you have about your medications? No 8. Do you have anyone helping you with your medications? No 9. Is home health assisting you? No--not at this time 10. When is your next appointment with your doctor or nurse practitioner? Check patient's answer: Does not know (missed call from [facility] during the nap) Appointment date: 05/[address] Cabral 11. Does the patient have transportation to get to their appointment? Yes 12. Do you have any other concerns about your discharge? No 13. Patient does express interest in Heart Failure Clinic at [facility] Cardiology. Length of phone call: 12 minutes documented in thi s encounter Plan of Treatment Not on filedocumented as of this encounter Visit Diagnoses Not on filedocumented in this encounter"
--- OUTSIDE RECORDS SUMMARY | ~2019-11-12 | XMS | Encounter Summary ---
Demographics + + + | Address | [address] | | | [place] [address] | + + + | Home Phone | | + + + | Preferred Language | Unknown | + + + | Marital Status | Single | + + + | Gnosticist Affiliation | 1041 | + + + | Race | or | + + + | Ethnic Group | Not or | + + + Author + + + | Author | [facility] | | | and [place] | + + + | Organization | [facility] | | [...] Team Providers + +------+ + | Care Motorcycle Mechanic Name | Role | Phone | + +------+ + | Julita Cabral PA-C | PCP | | + +------+ + Reason for Visit + +--------+ + | Reason | Onset | Comments | | | Date | | + +--------+ + | Procedure | 09/20/ | | | | 2018 | | + +--------+ + Encounter Details +--------+ + + + + | Date | Type | Department | Care Team | Description | +--------+ + + + + | 09/20/ | Telephone | [facility] | Jose Riojas MD | Procedure | | 2018 | | OTOLARYNGOLOGY [address] | [address] [place] [address] | | | | | [address] [facility] [address] | [address] [place] | | | | | [place] | [address] | | | | | [address] | | | | | | [phone] | | | +--------+ + + + [...] encounter Miscellaneous Notes Telephone Encounter - Cindy Doran Civil Drafter - 11/02/2018 3:38 PM PDTClosin g phone note due to patient not calling us back. elephone Encounter - Cindy Doran Medica l Refractory Specialist - 10/13/2018 2:31 PM PDTI tired calling patient back but there was no answer an d you can't leave a message. Electronically signed by Eneida Rodriguez t 10/13/2018 2:31 PM PDTTelephone Encounter - Su Goodwin - 10/07/2018 8:55 AM PDTP atient called to reschedule, says her ride did not show up and her phone was hacked and she was unable to cancel surgery and had to change her number. I updated her number in the syst em, please call her back at [phone]. Electronically signed by Su Goodwin at 09/14 8:57 AM PDTTelephone Encounter - Cindy Doran Civil Drafter - 10/06/2018 8:20 AM PDTI tried calling patient to get her scheduled for surgery but someone answered th en hung up. I will try one more time. elephone Encounter - Su Goodwin - 09/20/2018 11:5 3 AM PDTPatient called and wants to reschedule the surgery she did not show up for on 09/07. Please call her back at [phone], she states this number was just changed as her origin al number was compromised. Changing this in the patients chart as well. Electronically sign ed by Su Goodwin at 09/20/2018 11:54 AM PDTdocumented in this encounter Plan of Treatment Not on filedocumented as of this encounter Visit Diagnoses Not on filedocumented in this encounter"
--- OUTSIDE RECORDS SUMMARY | ~2019-11-12 | XMS | Encounter Summary ---
Demographics + + + | Address | [address] | | | [place] [address] | + + + | Home Phone [...] Author + + + | Author | [facility] | | | and [place] | + + + | Organization | [facility] | | [...] Team Providers + +------+ + | Care Bomb Loader Name | Role | Phone | + +------+ + | Julita Cabral PA-C | PCP | | + +------+ + Encounter Details +--------+ + + + + | Date | Type | Department | Care Team | Description | +--------+ + + + + | 01/05/ | Documentati | [facility] [place] | [facility], | | | 2019 | on | GASTROENTEROLOGY | FRANK Oconnor [address] | | | | | [address] | [address] | | | | | [address] [place], [place] | [place], [place] | | | | | [address] | [address] | | | | | [phone] | | | +--------+ + + + [...] 01/05/2019 8:24 AM PDTFaxed lab orders to [facility].Electro nically signed by Becky Ferris CMA at 01/05/2019 8:25 AM PDTdocumented in this encoun ter Plan of Treatment Not on filedocumented as of this encounter Visit Diagnoses Not on filedocumented in this encounter"
--- OUTSIDE RECORDS SUMMARY | ~2019-11-12 | XMS | Encounter Summary ---
Demographics + + + | Address | [address] | | | [place] [address] | + + + | Home Phone | | + + + | Preferred Language | Unknown | + + + | Marital Status | Single | + + + | Moravian Affiliation | 1041 | + + + | Race | or | + + + | Ethnic Group | Not or | + + + Author + + + | Author | [facility] | | | and [place] | + + + | Organization | [facility] | | | [...] Team Providers + +------+ + | Care Hazmat Cdl A Driver Name | Role | Phone | + +------+ + | Julita Cabral PA-C | PCP | | + +------+ + Reason for Visit + +--------+ + | Reason | Onset | Comments | | | Date | | + +--------+ + | Procedure | 08/31/ | surgery time | | | 2018 | | + +--------+ + Encounter Details +--------+ + + + + | Date | Type | Department | Care Team | Description | +--------+ + + + + | 08/31/ | Telephone | [facility] | Jose Riojas MD | Procedure (surgery | | 2018 | | OTOLARYNGOLOGY 301 | [address] [place] | time ) | | | | [address] [facility] [address] | [address] | | | | | [place] | [address] | | | | | [address] | | | | | | [phone] | | | +--------+ + + + [...] Miscellaneous Notes Telephone Encounter - Cindy Doran Extras Casting Director - 09/01/2018 1:05 PM KATIEKelli ellison called back and her surgery check in time was relayed to her. She will be there Thursday. P DTTelephone Encounter - Cindy Doran Extras Casting Director - 08/31/2018 2:15 PM PDTTried calling the patient to let her know about her surgery check in time but the phone number lenz s been disconnected. Patient is scheduled to have surgery ThursdaySeptember 07 checking in at 6 :45 am. Nothing to eat or drink after midnight the night before. Make sure you have a friend or family member to pick you up after surgery. documented in this encounter Plan of Treatment Not on filedocumented as of this encounter Visit Diagnoses Not on filedocumented in this encounter"
--- OUTSIDE RECORDS SUMMARY | ~2019-11-12 | XMS | Encounter Summary ---
Demographics + + + | Address | [address] | | | [place] [address] | + + + | Home Phone [...] + + + | Author | [facility] | | | and [place] | + + + | Organization | [facility] | | | [...] Team Providers + +------+ + | Care Anatomic Pathology Assistant Name | Role | Phone | [...] recurrent | Julita H, | MD [address] | | | | | sinisutus | PA-C [address] | | | | | | [address] | [address] [address] | | | | | | [place] | [place], [place] | | | | | | [address] | [address] Phone: | | | | | | [place], | [phone] | | | | | | [place] | Fax: | | | | | | [address] | [phone] | | | | | | Phone: | | | | | | | [phone] | | | | | | | Fax: | | | | | | | [phone] | | +--------+--------+ + + + + Encounter Details +--------+---------+ + + + | Date | Type | Department | Care Team | Description | +--------+---------+ + + + | 07/07/ | Office | [facility] | Jose Riojas MD | Deviated nasal | | 2019 | Visit | OTOLARYNGOLOGY [address] | [address] [place] | septum (Primary Dx); | | | | [address] | [address] [place] | 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 She has never used smokeless tobacco. She r eports that she has current or past drug history. Drugs: and Marijuana. She reports that lico cartwright does not drink alcohol. FAMILY HISTORY: Family [...]
--- OUTSIDE RECORDS SUMMARY | ~2019-11-12 | XMS | Encounter Summary ---
Demographics + + + | Address | [address] | | | [place] [address] | + + + | Home Phone | | + + + | Preferred Language | Unknown | + + + | Marital Status | Single | + + + | Denominational Affiliation | 1041 | + + + | Race | or | + + + | Ethnic Group | Not or | + + + Author + + + | Author | [facility] | | | and [place] | + + + | Organization | [facility] | | | and [...] Team Providers + +------+ + | Care Associate Software Application Engineer Name | Role | Phone | [...] | Deviated nasal | | | | [place] | [address] | septum; Hypertrophy | | | | [address] | | of nasal turbinates; | | | | [phone] | | Neoplasm of | | | [...]
--- OUTSIDE RECORDS SUMMARY | ~2019-11-12 | XMS | Encounter Summary ---
Demographics + + + | Address | [address] | | | [place] [address] | + + + | Home Phone | | + + + | Preferred Language | Unknown | + + + | Marital Status | Single | + + + | Nondenominational Affiliation | 1041 | + + + [...] Team Providers + +------+ + | Care Molasses Coloring Operator Name | Role | Phone | [...] Closed | | Otolaryngolog | Diagnoses | [place], | Jose Riojas | | | | y | chronic | Keaton | MD [address] | | | | | sinusitus/me | MD Asim | [address] | | | | | dicaid/bourr | [address] [address] | [address] [address] | | | | | et/self | Way | [place] | | | | | Procedures | [place] | [address] Phone: | | | | | OFFICE VISIT | [place] [address] | [phone] | | | | | REGULAR | Phone: | Fax: | | | | | | [phone] | [phone] | | | | | | Fax: | | | | | | | [phone] | | +--------+--------+ + + + + Encounter Details +--------+---------+ + + + | Date | Type | Department | Care Team | Description | +--------+---------+ + + + | 10/04/ | Office | [facility] | Jose Riojas MD | Deviated nasal | | 2020 | Visit | OTOLARYNGOLOGY | [address] | septum (Primary Dx); | | | | SERVICES [address] | [address] [place] | Hypertrophy of | | | | [address] [place] | [phone] | nasal turbinates; | | | | [place] [address] | | Neoplasm of | | | | [phone] | | uncertain behavior | | | | | | of skin; Obstructive | | | | | | sleep apnea | +--------+---------+ + + + Social History [...] + + + + | Pulse | - | - | | + + + + + | Temperature | 36.9 C (98.5 F) | 10/05/2019 9:49 AM | | | | | PDT | | + + + + + | Respiratory Rate | - | - | | + + + + + | Oxygen Saturation | - | - | | + + + + + | Inhaled Oxygen | - | - | | | Concentration | | | | + + + + + | Weight | 108.9 kg (240 lb) | 10/05/2019 9:49 AM | | | | | PDT | | + + + + + | Height | 174 cm (5' 8.5") | 10/05/2019 9:49 AM | | | | | PDT | | + + + + + | Body Mass Index | 35.96 | 10/05/2019 9:49 AM | | | | | PDT | | + + + + + documented in this encounter H&P Notes Jose Riojas MD - 10/05/2019 9:30 AM PDT OTOLARYNGOLOGY HISTORY AND PHYSICAL EXAMINATION CHIEF [...] function or swallowing. No other ENT complaints. PAST MEDICAL HISTORY: [...] Procedure: EGD; Surgeon: Keaton Wakefield MD; Location: [facility] SOCIAL HISTORY: The [...] ELECTRONICALLY SIGNED BY: Jose Riojas MD, 10/05/2019 10:53 AM PDT documented in this enco unter Plan of Treatment Not on filedocumented as of this encounter Visit Diagnoses + + | Diagnosis | + + | Deviated nasal septum - Primary | + + | Hypertrophy of nasal turbinates | + + | Neoplasm of uncertain behavior of skin | + + | Obstructive sleep apnea Obstructive sleep apnea (adult) (pediatric) | + + documented in this encounter
--- OUTSIDE RECORDS SUMMARY | ~2019-11-12 | XMS | Encounter Summary ---
Demographics + + + | Address | [address] | | | [place] [address] | + + + | Home Phone | | + + + | Preferred Language | Unknown | + + + | Marital Status | Single | + + + | Islam Affiliation | 1041 | + + + | Race | or | + + + | Ethnic Group | Not or | + + + Author + + + | Author | [facility] | | | and [place] | + + + | Organization | [facility] | | | and [place] | + + + | Address | Unknown | + + + | Phone | Unavailable | + + + Support + + +---------+ + | Name | Relationship | Address | Phone | + + +---------+ + | Parsia Reyes | ECON | Unknown | | + + +---------+ + | Sandra Oro | ECON | Unknown | | + + +---------+ + Care Team Providers + +------+ + | Care Commercial Diver Name | Role | Phone | + +------+ + | Julita Cabral PA-C | PCP | | + +------+ + Reason for Visit + +--------+ + | Reason | Onset | Comments | | | Date | | + +--------+ + | Procedure | 01/31/ | | | | 2019 | | + +--------+ + | Appointment | 01/31/ | | | | 2018 | | + +--------+ + Encounter Details +--------+ + + + + | Date | Type | Department | Care Team | Description | +--------+ + + + + | 01/31/ | Telephone | [facility] | Jose Riojas MD | Procedure; | | 2018 | | OTOLARYNGOLOGY [address] | [address] [place] [address] | Appointment | | | | [address] [address] | [address] | | | | | [place] | [address] | | | | | [address] | | | | | | [phone] | | | +--------+ + + + [...] this encounter Miscellaneous Notes Telephone Encounter - Maksim Mike - 05/18/2019 9:49 AM PSTCalled patient and informed her if she would like to follow up with Dr. Riojas will need an updated referral from her pc p. Patient understands. Closing encounter. elep milagros Encounter - Cindy Doran, Screening Tech - 05/17/2019 12:46 PM PSTPlease call patient to have er see since she has no showed and cancelled so many times for surg mary. Telephone Encounter - Iveth Chappell - 05/12/2019 7:38 AM PSTReferral is now approved, d o you want us to call her to schedule or wait for her to call us. elephone Encounter - Cindy Doran Screening Tech - 04/06/2019 1:20 PM PSTReferral still pending elephone Encounter - Cindy Doran Screening Tech - 03/24/2019 2:14 PM PSTReferral still pending. elephone Encounter - Iveth Stringer - 02/17/2019 8:23 AM PSTPatient called in to schedule surgery, I advised her that we were working on getting authorization for her surgery. I told her to wait for our ph one call. Her phone number has been updated again. elephone Encounter - Cindy Doran, Screening Tech - 05/2018 2:14 PM PSTChecking on Auth with Jewel then I will call the patient to schedule. El ectronically signed by Cindy Doran Screening Tech at 02/15/2019 2:15 PM PSTTeleph one Encounter - Pau Mosqueda - 02/04/2019 8:17 AM PSTPatient called to speak with Cindy in regards to rescheduling her procedure with Dr Riojas. I informed her that Dr Riojas and hi s clinical staff were not in the office and a message would be left for them to address once back. Please advise and call her back at [phone] signed by Pau panda at 02/04/2019 8:18 AM PSTTelephone Encounter - Cindy Doran, Screening Tech - 2:29 PM PSTCalled and left message for patient to give me a call back. I will not schedule patient at this time due to her no showing the first time then last minute cancelli ng. Plus I have to got a new auth since it just on Thursday. Then I will call the pat ient once I have the approval so once that has all been done then I will call the patient to schedule. elephone Encounter - Su Goodwin - 02/03/2019 2:06 PM PSTPatient called stat ing someone was supposed to call her back after she cancelled her Surgery with Dr. Riojas on 02/01 (second time she has cancelled and the reason was surprisingly similar, see note from 09/20/18). Please call her back at [phone] signed by Su Goodwin at 02/03/2019 2:08 PM PSTTelephone Encounter - Iveth Chappell - 01/31/2019 1:06 PM PSTPati ent called in to cancel her procedure, she said that she is so sick and stuffed up she just doesn't think she can make it in. She asked that her call her back on her "neighbors" or her brother in law at [phone]. She said her phone was disconnected by [employer] because nuzhat willett hacked in. document ed in this encounter Plan of Treatment Not on filedocumented as of this encounter Visit Diagnoses Not on filedocumented in this encounter
--- OUTSIDE RECORDS SUMMARY | ~2019-11-12 | XMS | Encounter Summary ---
Demographics + + + | Address | [address] | | | [place] [address] | + + + | Home Phone [...] Team Providers + +------+ + | Care Delivery Rep Name | Role | Phone | + +------+ + | Julita Cabral PA-C | PCP | | + +------+ + Reason for Visit + +--------+ + | Reason | Onset | Comments | | | Date | | + +--------+ + | Procedure | 07/30/ | | | | 2018 | | + +--------+ + Encounter Details +--------+ + + + + | Date | Type | Department | Care Team | Description | +--------+ + + + + | 07/30/ | Telephone | [facility] | [facility], | Procedure | | 2018 | | GASTROENTEROLOGY | [address] | | | | | [address] | [address] | | | | | [address] [place], [place] | [place], [place] | | | | | [address] | [address] | | | | | [phone] | | | +--------+ + + + [...] she was able to get clearance from equity sales assistant and she said she missed that appointment. She i s going to reschedule. Once she has clearance we can schedule procedure. She will call and l et us know. eleandriyo ne Encounter - Iveth Chappell - 07/30/2018 [...]
--- OUTSIDE RECORDS SUMMARY | ~2019-11-12 | XMS | Encounter Summary ---
Demographics + + + | Address | [address] | | | [place] [address] | + + + | Home Phone [...] Team Providers + +------+ + | Care Mechanic Welder Truck Driver Name | Role | Phone | [...] + + | 01/19/ | Telephone | [facility] | [facility], | Imaging | | 2019 | | GASTROENTEROLOGY | [address] | | | | | [address] | [address] | | | | | [address] [place], [place] | [place] | | | | | [address] | [id number] | | | | | [phone] | | | +--------+ + + + [...] Iveth Chappell - 01/19/2019 8: 07 AM Kristal from Clinic called asking for a copy of US of Liver order to be faxed to their clinic. Patient is scheduled on Jan 28 at 8AM . Michael's fax number is [phone] lectronically signed by Iveth Chappell at 01/19/2019 8:16 AM PSTdocumented in this encoun ter Plan of Treatment Not on filedocumented as of this encounter Visit Diagnoses Not on filedocumented in this encounter"
--- OUTSIDE RECORDS SUMMARY | ~2019-11-12 | XMS | Encounter Summary ---
Demographics + + + | Address | [address] | | | [place] [address] | + + + | Home Phone | | + + + | Preferred Language | Unknown | + + + | Marital Status | Single | + + + | Amish Affiliation | 1041 | + + + [...] Team Providers + +------+ + | Care Gas Processing Plant Operator Name | Role | Phone | [...] 2015 | | GASTROENTEROLOGY | [address] [place] | Morbid obesity due | | | | [address] [place] | [address] [place], [place] | to excess calories | | | | [address], [place] | [address] | ([facility]); Aspiration | | | | [address] | | pneumonia, | | | | [phone] | | unspecified | | | | | | aspiration pneumonia | | | | | | type, unspecified | | | | | | laterality, | | | | | | unspecified part of | | | | | | lung ([facility]) | +--------+ + + + + [...]
--- OUTSIDE RECORDS SUMMARY | ~2019-11-12 | XMS | Encounter Summary ---
Demographics + + + | Address | [address] | | | [place] [address] | + + + | Home Phone [...] Author + + + | Author | [facility] | | | and [place] | + + + | Organization | [facility] | | [...] Team Providers + +------+ + | Care Brand Lead Name | Role | Phone | + [...] + + | 04/23/ | Hospital | [facility] | James Yanez, | Decompensated | | 2019 - | Encounter | [facility] | [address] | hepatic cirrhosis | | | | [address] [place] | [place] | (HCC) (Primary Dx); | | 05/06/ | | [place] [address] | [id number] | Hypervolemia, | | 2019 | | [phone] | | unspecified | | | | | Pau Hernandez MD | hypervolemia type; | | | | | [address] | Acute systolic | | | | | [place] | congestive heart | | | | | [address] | failure (HCC); 3+ | | | | | | pitting edema; | | | | | Adali Morrow MD | Abdominal pain, | | | | | [address] | chronic, epigastric; | | | | | [place] | Anasarca; Alcoholic | | | | | [id number] | cirrhosis of liver | | | | | | without ascites | | | | | | ([facility]); Chest pain, | | | | | | unspecified type; | | | | | | Generalized | | | | | | abdominal pain; JOSE | | | | | | (acute kidney | | | | | | injury) ([facility]); | | | | | | Dizziness; Coronary | | | | | | artery disease | | | | | | involving [place] | | | | | | coronary artery, | | | | | | angina presence | | | | | | unspecified, | | | | | | unspecified whether | | | | | | [place] or | | | | | | transplanted heart; | | | | | | Thrombocytopenia | | | | | | ([facility]); Anemia, | | | | | | unspecified type; | | | | | | Morbid obesity | | | | | | ([facility]); Acute on | | | | | | chronic systolic | | | | | | (congestive) heart | | | | | | failure ([facility]) | +--------+ + + + + Social [...] might be differen t from the original. [place] HOSPITALIST DISCHARGE SUMMARY Pt. Name/Age/: Tiny [...] and CAD presented on 04/23/2018, seen by agnieszka pathak yesterday, BUT despite change in diuretics, there is ongoing 30lb weight gain, and today she was told by agnieszka pathak to come to ER for t [...] liver and heart failure. Echo 03/19/18 at [facility] showed EF 45% with apical WMA.Patient did [...] week . Specialty: Internal Medicine Contact information: [phone] [place] [phone] Condition: Patient being discharged with condition improved Diet: 2 gm sodium diet Greater than 30 minutes were spent on discharge and coordination of post-hospital care. Electronically signed by: Delia Parson MD, 05/06/2018 20:53 [facility] Portions of this chart may have been created with [employer] voice recognition software. Occasi onal wrong-word or sound-alike substitutions may have occurred due to the inherent munoz itations of voice recognition software. Please read the chart carefully and recognize, using context, where these substitutions have occurred documented in this encounter Discharge Instructions AttachmentsThe following attachments cannot be sent through Care Everywhere.Cirrhosis of th e Liver, Discharge Instructions for ([place] Citizen)documented in this encounter Medications at Time of [...] might be differen t from the original. [place] HOSPITALIST PROGRESS NOTE Patient: Tiny Campuzano : 1975: Age: 42 y.o. MedRec: [id number] Admission date: 04/23/2018 Hospital day # : [...] liver and heart failure. Echo 03/19/18 at [facility] showed EF 45% with apical WMA. Have [...] tablet 40 mEq 40 mEq Oral BID Deliamary Parson MD 40 mEq at 05/05/18 0801 [...] room air Delia Parson MD 05/05/2018 13:50 [facility] Delia Hu MD - 05/04/2018 6:03 PM PSTFormatting of this note might be different from the origin al. [facility] [place] HOSPITAL[place] PROGRESS NOTE Patient: Tiny Campuzano : 1975: Age: 42 y.o. MedRec: [id number] Admission date: 04/23/2018 Hospital day # : [...] liver and heart failure. Echo 03/19/18 at [facility] showed EF 45% with apical WMA. Have not repeated echo here. Ryley nicholejenni did also have stress test at that [...] Zainab Lundberg MD 2.5 mg at 05/04/18 0906 albuterol-ipratropium 2.5-0.5 mg/3 mL nebulizer solution 3 [...] 0.5 inch Topical Q6H PRN Talya Rivera 0.5 inch at 05/01/18 1738 ondansetron [...] room air Delia Parson MD 05/04/2018 18:04 [facility] Danielle Vera RD - 05/04/2018 9:13 AM PSTIntake variable 25-90%. Experiencing occasional nausea with vom iting. Monitor intake and provide preferences as possible within diet and fluid modification . Pau Thomas MD - 3:05 PM PST [facility] [place] HOSPITAL[facility] PROGRESS NOTE Patient: Tiny Campuzano : 1975: Age: 42 y.o. MedRec: [id number] Admission date: 04/23/2018 Hospital day # : [...] liver and heart failure. Echo 03/19/18 at [facility] showed EF 45% with apical WMA. Have [...] room air Pau Hernandez MD 05/03/2018 15:05 [facility] retchen Pino R N - 05/02/2018 2:31 PM PSTReport received, from FREYA Estrada. Pt transferred to [facility] in stab le condition. ar Pau echols MD - 05/02/2018 12:38 PM PST [facility] HOSPITALIST PROGRESS NOTE Patient: Tiny Campuzano : 1975: Age: 42 y.o. MedRec: [id number] Admission date: 04/23/2018 Hospital day # : [...] liver and heart failure. Echo 03/19/18 at [facility] showed EF 45% with apical WMA. Transitioned [...] aware that we this is not a buttermaker helper medication) today to see if this helps. [...] 2.5 mg 2.5 mg Nebulization RT BID Na Luis Lundberg MD 2.5 mg at 05/02/18 0752 [...] age undetermined Confirmed by BONNIE SPARKS, EREN ([id number]) on 05/02/2018 8:38:52 AM Basic Metabolic Panel [...] room air Pau Hernandez MD 05/02/2018 12:39 [facility] Mary Torres RN - 0 05/01/2018 7:42 PM PSTAt approximately 1730 pt c/o deep/sharp chest pain. She was observed c lutching her chest, taking deep breaths. Rated her pain 6/10. VS taken, within parameters. P jivider notified. PRN nitro paste given. EKG ordered. No significant changes to EKG from pre vious, per MD. Pt reports pain decreased to 4/10. Pain has now subsided and pt reports she b nataliaeves she was having anxiety d/t being notified by family earlier in the day that an unwan kishan ex boyfriend was enroute to hospital. Arrangements were made- pt made "private". Securit y and staff aware. No further episodes of chest pain or anxiety. WCTM. William, MD Pau - 05/01/2018 12:13 PM PSTF ormatting of this note might be different from the original. [place] HOSPITALIST PROGRESS NOTE Patient: Tiny Campuzano : 1975: Age: 42 y.o. MedRec: [id number] Admission date: 04/23/2018 Hospital day # : [...] liver and heart failure. Echo 03/19/18 at [facility] showed EF 45% with apical WMA. Transitioned [...] chlorhexidine (HIBICLENS) 4 % liquid Topical Daily Tanisha-Hwa Tamika, MD fluticasone (FLONASE) 50 mcg/nasal spray 2 [...] room air Pau Hernandez MD 05/01/2018 12:13 [facility] arter, MD Pau - 2:22 PM PST [facility] HOSPITALIST PROGRESS NOTE Patient: Tiny Campuzano : 1975: Age: 42 y.o. MedRec: [id number] Admission date: 04/23/2018 Hospital day # : [...] liver and heart failure. Echo 03/19/18 at [facility] showed EF 45% with apical WMA. Transitioned [...] inch Topical Q6H PRN Talya Rivera D ondansetron (ZOFRAN ODT) disintegrating tablet [...] room air Pau Hernandez MD 04/30/2018 14:22 [facility] arterPau MD - 12:32 PM PST [facility] HOSPITALIST PROGRESS NOTE Patient: Tiny Campuzano : 1975: Age: 42 y.o. MedRec: [id number] Admission date: 04/23/2018 Hospital day # : [...] liver and heart failure. Echo 03/19/18 at [facility] showed EF 45% with apical WMA. Transitioned [...] Jj Lundberg MD 81 mg at 04/29/18 0822 atorvaSTATin (LIPITOR) tablet 40 mg 40 mg [...] rate 0L/min Pau Hernandez MD 04/29/2018 12:33 [facility] arPau echols MD - 4:52 PM PST [facility] [place]PITAL[place]GRESS NOTE Patient: Tiny Campuzano : 1975: Age: 42 y.o. MedRec: [id number] Admission date: 04/23/2018 Hospital day # : [...] liver and heart failure. Echo 03/19/18 at [facility] showed EF 45% with apical WMA. Our [...] waiting for assistance to go to [facility]. ROS was performed and was negative [...] 40 mg 40 mg Oral Nightly Jj Lundbegr MD 40 mg at 04/16 bumetanide (BUMEX) [...] rate 0L/min Pau Hernandez MD 04/28/2018 16:52 [facility] Pau Thomas MD - 02/2019 3:36 PM PST [facility] HOSPITALIST PROGRESS NOTE Patient: Tiny Campuzano : 1975: Age: 42 y.o. MedRec: [id number] Admission date: 04/23/2018 Hospital day # : [...] liver and heart failure. Echo 03/19/18 at [facility] showed EF 45% with apical WMA. Our [...] Recent abnormal stress test Performed 03/22/18 at [facility] with the following results: Myocardial Perfusion Imaging [...] rate 0L/min Pau Hernandez MD 04/27/2018 15:36 [facility] Ana Dumont, Ph armD - 04/27/2018 [...] list or bottles X Pharmacy list names: [facility] X [place] [facility] TRANSMISSION SPECIALIST (Prescription Monitoring Program) X [employer] insurance reported [...] taking. She is wondering if she r barryy needs to take all of these. Medication: Prior to Admission Sig: Patient taking differently [employer]UFACTURING INTERN as: Hydroxyzine pamoate 25 mg cap 1 cap by mouth every 6 hours as needed for anxiety 1 cap by mouth every morning and evening as scheduled dose 1 cap midday if needed for anxiety Pantoprazole 40 mg tab 1 tab by mouth every morning Not taking patient believes medication was discontinued. However, still active order per Provider's office Best possible [employer]FACTURING INTERN medication list after pharmacy review: PT REPORTED [...] Take 40 mg by mouth nightly. Taking Evelyn Perez erMD ciprofloxacin (CIPRO) 500 mg tablet Take 500 [...] needed f or Anxiety. Taking Differently Evelyn ProviderMD lactulose 10 g/15 mL solution Take 20 g by mouth 4 times daily. Taking Differently Histor ical ProviderMD lidocaine (LIDODERM) 5% patch Place 1 patch onto the skin Daily. Apply for 12 hours, then remove for 12 hours. Taking Nik Brown MD magnesium oxide (MAG-OX) 400 mg tablet Take 400 mg by mouth 2 times daily. Taking Alverto alvarezy Historical ProviderMD metoclopramide (REGLAN) 10 mg tablet Take 10 mg by mouth 4 times daily as needed for Nause a or Vomiting. Taking Historical ProviderMD metoprolol succinate (TOPROL-XL) 25 mg 24 hr tablet Take 25 mg by mouth Daily. Taking His torical Provider, metroNIDAZOLE (FLAGYL) 500 MG tablet Take 500 mg by mouth 3 times daily. Taking Mj l ProviderMD mometasone-formoterol (DULERA) 200-5 mcg/puff inhaler [...] and electronically signed by Maria A Mcnulty, Rib Stiffener And Heel Dipper 02/2019 13:04 Reviewed by Ana Lucio PharmD 04/27/2018 14:39 Jj Akhtar MD - 04/26/2018 11:09 AM PST [facility] [place] HOSPITALIST PROGRESS NOTE Patient: Tiny Campuzano : 1975: Age: 42 y.o. MedRec: [id number] Admission date: 04/23/2018 Hospital day # : 3 Physician author: Jj Lundberg MD Today: 04/26/2018 Reason for hospitalization Tiny Campuzano is a 42 y.o. female with a history of alcoholic cirrhosis, diet contro lled DM, presented on 04/23/2018, seen by agnieszka pathak yesterday, BUT despite change in diureti cs, there is ongoing 30lb weight gain, and today she was told by agnieszka pathak to come to ER f or [...] Echo 02/2018 and stress study 03/2018 at [facility]. ED course: NO O2 need, good UOP after lasix in ER -Studies: BNP 340/ Ammonia 44 CXR pulm edema, CT a/p without enough ascities for paracentes is -Treatment: lasix 40 / dialudid 1 mg x 2 Relevant Chart Review 03/15/2018- 04/01/2018 TRANSFER FROM [facility] TO [place], Hospitalized [facility] for cir rhosis r/o cholecystitis work up, [...] left ventricular systolic dysfunction, myocardial scar with uyli-infarct ischemia 03/19/2018 echo LVEF-TTE TRANSTHORACIC ECHO 45 [...] 45% presumed CAD myocardiac perfusion scan in [facility] Asa/statin/metoprolol. hold lisinopril while diuresis [...] on exertion, + BM[facility] umanzor due to prior [...] 2.5 mg 2.5 mg Nebulization RT BID Na Luis Lundberg MD 2.5 mg at 04/26/18 0849 And albuterol 2.5 mg/3 mL nebulizer solution 2.5 mg 2.5 mg Nebulization Q12H Jj Lundberg MD 2.5 mg at 04/25/18 1427 albuterol-ipratropium 2.5-0.5 mg/3 mL nebulizer solution 3 mL 3 mL Nebulization RT Q4H PRN Jj Lundberg MD aspirin EC tablet 81 mg 81 mg Oral Daily Jj Lundberg MD 81 mg at 04/26/18 08 atorvaSTATin (LIPITOR) tablet 40 mg 40 [...] Lundberg MD 25 m g at 04/26/18 06 lactulose liquid 20 g 20 g Oral Daily Jj Lundberg MD 20 g at 04/26/18 08 LORazepam (ATIVAN) injection 0.5 mg 0.5 mg Intravenous Nightly PRN Jj Lundberg MD 0 .5 mg at 04/26/18 0347 magnesium oxide (MAG-OX) tablet 400 mg 400 mg Oral BID Jj Lundberg MD 400 mg at 02/01 08 metoclopramide (REGLAN) 5 mg/mL injection 10 mg [...] Current Infusions: Jj Lundberg MD 04/26/2018 11:09 [facility] im, MD Jj - 04/25 12:48 PM PST [facility] HOSPITALIST PROGRESS NOTE Patient: Tiny Campuzano : 1975: Age: 42 y.o. MedRec: [id number] Admission date: 04/23/2018 Hospital day # : 2 Physician author: Jj Lundberg MD Today: 04/25/2018 Reason for hospitalization Tiny Campuzano is a 42 y.o. female with a history of alcoholic cirrhosis, diet contro lled DM, presented on 04/23/2018, seen by agnieszka pathak yesterday, BUT despite change in diureti cs, there is ongoing 30lb weight gain, and today she was told by agnieszka pathak to come to ER f or [...] Echo 02/2018 and stress study 03/2018 at [facility]. ED course: NO O2 need, good UOP after lasix in ER -Studies: BNP 340/ Ammonia 44 CXR pulm edema, CT a/p without enough ascities for paracentes is -Treatment: lasix 40 / dialudid 1 mg x 2 Relevant Chart Review 03/15/2018- 04/01/2018 TRANSFER FROM [facility] TO [place], [facility] for cir rhosis r/o cholecystitis work up, [...] 45% presumed CAD myocardiac perfusion scan in [facility] Asa/statin/metoprolol. hold lisinopril while diuresis [...] on exertion, + BM, [facility] voiding declined umanzor due to prior [...] electrolytes, decrease lasix, Increase ppi bid/prn nitro 2/10 increase mag, compression stocking ordered, lasix 20 [...] D Jj Lundberg MD 0.5 mg at 04/25/18737 And albuterol 5 mg/mL concentrated nebulizer solution 2.5 mg 2.5 mg Nebulization RT BID Zainab Lundberg MD 2.5 mg at 04/25/1838 And albuterol 2.5 mg/3 mL nebulizer solution 2.5 mg 2.5 mg Nebulization Q12H jJ Lundberg MD 2.5 mg at 04/25/18 0359 albuterol-ipratropium 2.5-0.5 mg/3 mL nebulizer solution 3 mL 3 mL Nebulization RT Q4H PRN Jj Lundberg MD aspirin EC tablet 81 mg 81 mg Oral Daily Jj Lundberg MD 81 mg at 04/25/18 0956 atorvaSTATin (LIPITOR) tablet 40 mg 40 mg Oral Nightly Jj Lundberg MD 40 mg at 02/12/02 [START ON 04/26/2018] furosemide (LASIX) injection 20 [...] Current Infusions: Jj Lundberg MD 04/25/2018 12:48 [facility] im, MD Jj - 04/24 10:54 AM PST [facility] HOSPITALIST PROGRESS NOTE Patient: Tiny Campuzano : 1975: Age: 42 y.o. MedRec: [id number] Admission date: 04/23/2018 Hospital day # : 1 Physician author: Jj Lundberg MD Today: 04/24/2018 Reason for hospitalization Tiny Campuzano is a 42 y.o. female with a history of alcoholic cirrhosis, diet contro lled DM, presented on 04/23/2018, seen by agnieszka pathak yesterday, BUT despite change in diureti cs, there is ongoing 30lb weight gain, and today she was told by agnieszka pathak to come to ER f or [...] Echo 02/2018 and stress study 03/2018 at [facility]. ED course: NO O2 need, good UOP after lasix in ER -Studies: BNP 340/ Ammonia 44 CXR pulm edema, CT a/p without enough ascities for paracentes is -Treatment: lasix 40 / dialudid 1 mg x 2 Relevant Chart Review 03/15/2018- 04/01/2018 TRANSFER FROM [facility] TO [place], Hospitalized [facility] for cir rhosis r/o cholecystitis work up, [...] 45% presumed CAD myocardiac perfusion scan in [facility] Asa/statin/metoprolol. hold lisinopril while diuresis [...] ECGs available Confirmed by EREN NICOLE MD ([id number]) on 04/24/2018 7:32:37 AM CBC with Differential [...] Jj Lundberg MD 40 mg at 11/01 heparin 5,000 units/mL injection 5,000 Units 5,000 [...] Current Infusions: Jj Lundberg MD 04/24/2018 10:54 [facility] documented in this encou nter H&P Notes Jj Lundberg MD - 04/23/2018 3:02 PM PSTFormatting of this note might be different from t nancy original. [facility] HOSPITALIST HISTORY & PHYSICAL Patient: Tiny Campuzano : 1975: Age: 42 y.o. MedRec: [id number] Admission date: 04/23/2018 Hospital day # : [...] 45% presumed CAD myocardiac perfusion scan in [facility] Asa/statin/metoprolol. hold lisinopril after diuresis [...] lled DM, presented on 04/23/2018, seen by agnieszka pathak yesterday, BUT despite change in diureti cs, there is ongoing 30lb weight gain, and today she was told by agnieszka pathak to come to ER f or [...] Relevant Chart Review 03/15/2018- 04/01/2018 TRANSFER FROM [facility] TO [place] , Hospitalized [facility] for ci rrhosis r/o cholecystitis work up, [...] Procedure: EGD; Surgeon: Keaton Wakefield MD; Location: [facility] Patient Active Problem List [...] signed by: Jj Lundberg MD 04/23/2018 15:04 [facility] initial inpatient hospital time greater than 70 [...] be different fr om the original. [facility] Tiny Campuzano Emergency Department Encounter Note [address] [place] [address] PCP:Julita Cabral PA-C ED10 CHIEF COMPLAINT: Chief [...] f eel safe returning home 04/03 in [facility] because brother who lives 3 houses down was alread y drunk per the pt's report and she felt that he would "bang on her door" and might behave u npredictably if angry and intoxicated. Pt tried to go to sister's house in [place] but t his could be done until Thursday. Pt stated she will feel safe going home to [facility] on ay due to increase presence [...] Procedure: EGD; Surgeon: Keaton Wakefield MD; Location: [facility] CURRENT MEDICATIONS Previous Medications [...] No wheezes, no rales. Patient's work of [employer] is normal. Cardiovascular: Normal S1 S2. No [...] were reviewed along with EMS notes and half-way record s if applicable. Medication and Allergy lists reviewed in [facility]. Nurses note and old record s were reviewed if available within [facility] ER course 12:39 - Patient care [...] this chart may have been created with [employer] voice recognition software. Occasi onal wrong-word or sound-alike substitutions may have occurred due to the inherent munoz itations of voice recognition software. Please read the chart carefully and recognize, using context, where these substitutions have occurred. James Yanez MD 04/23/18 1614 utticeKeaton RN - 04/23/2018 12:10 PM PSTPatient reports abdominal pain and nasuea. Had admission on 03/15 to [facility] and transferred to [facility] for similar pain. Reports pain is due to g all bladder and ascites. Told by PCP to come here due to need for cardiology and known live problems documented in this encounter Miscellaneous Notes Plan of Care - Kath Campos, ASSISTANT OFFICE MANAGER - 05/06/2018 7:35 PM PSTProblem: Discharge Planning Goal: Patient will be discharged in a safe manner Outcome: Improving Patient eager to discharge home today with family transporting her. This CM called [facility] and spoke with RNValentina [phone]. This Cm let her know that patient [...] Asked her to be seen by their community health RN Luis Antonio--Valentina will notify luis antonio of her d ischarge and have her follow up. AVS , OT and H&P notes have been faxed to the office [phone]. No d.c summary available to fax at this time. PLAN: Home with follow up from [facility]. lan of Care - Gaviota Kinsey COTA [...] 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 Answer call light i n person and/or [...] are: Recommended discharge disposition: home with assist, chcf facility Post discharge occupational therapy recommendation: ongoing [...] seated at EOB UB dressing, Level of [place]: Independent Assistive Device: none UB dressing Assess/Train,position: sitting Mod I/extra time to chuy pants and socks and slippers seated at EOB LB Dressing, [place] of [place]: modified independent Assistive Device: none LB Dressing Assess/Train, Position: sitting, standing LB Dressing Impairments: decreased flexibility, strength decreased Functional Endurance Fair for acivities presented Cognitive Orientation: oriented x 4 Bed Mobility Mod I w/ bed mobility Assistive Device: HOB elevated Supine to Sit, [place] of [place]: modified independent Sit to Supine, [place]: modified independent Safety Issues: decreased use of legs for bridging/pushing Impairments: strength decreased Transfers Mod I w/ sit>stand t/f Sit-Stand, [place]: modified independent Stand-Sit, [place]: modified independent Ipu-Cwsyp-Rma, Assistive Device: 2 wheeled walker (FWW), bariatric Impairments: strength decreased, coordination impaired OT Goal Review Date Most Recent Value STG Review Date 05/09/18 at 05/02/2018 1407 Grooming Goal Most Recent Value STG Status progressing at 05/04/2018 0940 STG [place] Level modified independent at 05/02/2018 1407 STG Position standing at 05/02/2018 1407 LB Dressing Goal Most Recent Value STG Status met at 05/06/2018 1530 STG [place] Level modified independent at 05/02/2018 1407 Additional [...] 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 Answer call light i n person and/or [...] 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 Answer call light i n person and/or [...] deg t urn with slow speed and orange picker 1 item off floor with 1 hand support on walker Level of [place]: supervised, modified independent Assistive Device: 2 wheeled walker (FWW) Distance (feet): 220' x 3, 50' Stairs NT Transfers Modified indpt sit/stand transfers Sit-Stand, [place]: modified independent Stand-Sit, [place]: modified independent Njf-Byozj-Sdb, Assistive Device: 2 wheeled walker (FWW), bariatric Toilet, Level of [place]: modified independent Toilet, Assistive Device: 2 wheeled walker (FWW), grab bars Safety Issues: step length decreased, weight-shifting ability decreased Impairments: strength decreased, coordination impaired Bed Mobility Not tested Assistive Device: HOB elevated Supine to Sit, [place] of [place]: modified independent Sit to Supine, [place] of [place]: modified independent Safety Issues: decreased use of [...] STG Review Date 05/10/18 at 05/04/2018 1100 Vzbygp-Pez-Ecjslt Goal Most Recent Value STG Status revised at 05/04/2018 1100 STG [place] Level modified independent at 04/27/2018 1206 STG Assistive Device none at 04/27/2018 1206 STG Comments simulate home environment at 04/27/2018 1206 Tnl-Qqzgf-Pjk Goal Most Recent Value STG Status met at 05/05/2018 1306 STG [place] Level modified independent at 04/27/2018 1206 STG Comments with or w/o AD at 04/27/2018 1206 Rsz-Oxnti-Xta Goal Most Recent Value STG Status met at 05/04/2018 1100 STG [place] Level modified independent at 04/27/2018 1206 STG Comments with or w/o AD at 04/27/2018 1206 Gait Goal Most Recent Value STG Status progressing at 05/06/2018 1057 STG [place] Level modified independent at 04/27/2018 1206 STG [...] PT, 05/06/2018 11:00 lan of Care - ÁngelaRhona RN - 05/06/2018 4:08 AM PSTProblem: Patient [...] 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 Answer call light i n person and/or [...] 0400 to watch news encour age to katy ROJAS elevated. No falls this shift. lan of Care - Paris Hanks RN - 05/05/2018 4:06 PM PSTProblem: Patient [...] 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 Answer call light i n person and/or [...] or injuries. lan of Care - Gaviota Fox, MICHEL - 05/05/2018 3:10 PM PSTFormatting of this [...] 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 Answer call light i n person and/or [...] as pt is mod I during t he day in room and hallway. Patient demonstrates progress towards functional goals as evide nced by tolerating kinisotape w/o discomfort and Liv demo fair MLM w/ cues Remaining barriers to [...] are: Recommended discharge disposition: home with assist, [facility]cf facility Post discharge occupational therapy recommendation: ongoing [...] HOB elevated Supine to Sit, Level of [place]: modified independent Sit to Supine, Level of [place]: modified independent Safety Issues: decreased use of legs for bridging/pushing Impairments: strength decreased Transfers Mod I w/ sit>stand t/f's Sit-Stand, Level of [place]: modified independent Stand-Sit, Level of [place]: modified independent Wyd-Ziazv-Kbl, Assistive Device: 2 wheeled walker (FWW) Impairments: impaired balance, strength decreased OT Goal Review Date Most Recent Value STG Review Date 05/09/18 at 05/02/2018 1407 Grooming Goal Most Recent Value STG Status progressing at 05/04/2018 0940 STG [place] Level modified independent at 05/02/2018 1407 STG Position standing at 05/02/2018 1407 LB Dressing Goal Most Recent Value STG Status progressing at 05/04/2018 0940 STG [place] Level modified independent at 05/02/2018 1407 Additional Goals #1 OT Most Recent Value STG Status progressing at 05/05/2018 1430 STG Pt. 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 Answer call light i n person and/or [...] 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 Answer call light i n person and/or [...] control and balance with walker Level of [place]: supervised, modified independent Assistive Device: 2 wheeled walker (FWW) Distance (feet): 375 Transfers Pt demonstrated safe sit/stand transfers to/from chair and toilet modified indpt Sit-Stand, Level of [place]: modified independent Stand-Sit, Level of [place]: modified independent Drf-Namlv-Yaf, Assistive Device: 2 wheeled walker (FWW) Toilet, Level of [place]: modified independent Toilet, Assistive Device: 2 wheeled walker (FWW), grab bars Safety Issues: step length decreased, weight-shifting ability decreased Impairments: impaired balance, strength decreased Bed Mobility Pt sitting up in chair, finishing breathing treatment on arrival Assistive Device: HOB elevated Supine to Sit, Level of [place]: modified independent Sit to Supine, Level of [place]: modified independent Safety Issues: decreased use of [...] STG Review Date 05/10/18 at 05/04/2018 1100 Fkmokq-Jpf-Cwhito Goal Most Recent Value STG Status revised at 05/04/2018 1100 STG [place] Level modified independent at 04/27/2018 1206 STG Assistive Device none at 04/27/2018 1206 STG Comments simulate home environment at 04/27/2018 1206 Tcd-Txtij-Cba Goal Most Recent Value STG Status met at 05/05/2018 1306 STG [place] Level modified independent at 04/27/2018 1206 STG Comments with or w/o AD at 04/27/2018 1206 Yqo-Jchus-Gtr Goal Most Recent Value STG Status met at 05/04/2018 1100 STG [place] Level modified independent at 04/27/2018 1206 STG Comments with or w/o AD at 04/27/2018 1206 Gait Goal Most Recent Value STG Status progressing at 05/05/2018 1306 STG [place] Level modified independent at 04/27/2018 1206 STG [...] 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 Answer call light i n person and/or [...] 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 Answer call light i n person and/or [...] free from s/sx infection through 04-30-18. 3. Ocsars pain will be adequately controlled and she [...] 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 Answer call light i n person and/or [...] to perform medication management, demonstrating need for / supervis ion, not yet able to mobilize at level safe for home discharge and medical status. Tiny will benefit from continued therapeutic intervention to address ongoing impairment s and increase safety and independence with activities necessary for safe discharge. Refer below for specific details regarding functional levels. Occupational Therapy Discharge Recommendations are: Recommended discharge disposition: home with assist, chcf facility Post discharge occupational therapy recommendation: ongoing [...] STG Status progressing at 05/04/2018 0940 STG [place] Level modified independent at 05/02/2018 1407 STG Position standing at 05/02/2018 1407 LB Dressing Goal Most Recent Value STG Status progressing at 05/04/2018 0940 STG [place] Level modified independent at 05/02/2018 1407 Additional [...] 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 Answer call light i n person and/or [...] 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 Answer call light i n person and/or [...] hypervolemia type [E87.70] 3+ pitting edema [R60.9]. Blister Packing Machine Tender visit was part of routine rounding. Spiritual Evaluation: The patient requested a follow-up chapel visit. She welcomed the opportunity to participat e in the [employer] communion service offered by [facility]. She is also grateful for her sister briseida nicolas has visited her this morning and her aunt who should visit this afternoon. She expects t o be here several more days and is accepting of that plan. Spiritual Interventions: The grocery caddy brought the patient to [facility] chapel services and offered care. Spiritual Outcomes: The patient appreciated episcopal support and yazdanism interaction. 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 Answer call light i n person and/or [...] be from multiple contributors. Gait Level of [place]: supervised Assistive Device: 2 wheeled walker (FWW) Distance (feet): 300 Transfers Pt able to perform sit <> stand from regular height surfaces with increased time and effort but no physical assist required. Sit-Stand, Level of [place]: modified independent Stand-Sit, Level of [place]: modified independent Sep-Uxacz-Rco, Assistive Device: 2 wheeled walker (FWW) Safety Issues: sequencing ability decreased, step length decreased, weight-shifting ability decreased Impairments: impaired balance, strength decreased Bed Mobility pt sitting up in chair Assistive Device: HOB elevated Balance sitting is good static stand is good dynamic stand is faisr Therapeutic Exercise time did not allow for ex as pt wanted to go to [facility] Functional Endurance fair ROM WFL; LE's limited by large tissue mass/habitus PT Goal Review Date Most Recent Value STG Review Date 05/10/18 at 05/04/2018 1100 Xcahvr-Jct-Yuitno Goal Most Recent Value STG Status revised at 05/04/2018 1100 STG [place] Level modified independent at 04/27/2018 1206 STG Assistive Device none at 04/27/2018 1206 STG Comments simulate home environment at 04/27/2018 1206 Weg-Pwxvx-Bqu Goal Most Recent Value STG Status revised at 05/04/2018 1100 STG [place] Level modified independent at 04/27/2018 1206 STG Comments with or w/o AD at 04/27/2018 1206 Jzt-Sygdo-Wdz Goal Most Recent Value STG Status met at 05/04/2018 1100 STG [place] Level modified independent at 04/27/2018 1206 STG Comments with or w/o AD at 04/27/2018 1206 Gait Goal Most Recent Value STG Status revised at 05/04/2018 1100 STG [place] Level modified independent at 04/27/2018 1206 STG [...] 15:24 Goal Evaluation: lan of Care - Evelyn Norwood COTA - 05/04/2018 9:40 AM PST Problem: Patient [...] 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 Answer call light i n person and/or [...] management, demonstrating need for 24/ supervis ion, unsafe discharge disposition, not yet able to mobilize at level safe for home discharge and medical status. Tiny will benefit from continued therapeutic intervention to address ongoing impairment s and increase safety and independence with activities necessary for safe discharge. Refer below for specific details regarding functional levels. Occupational Therapy Discharge Recommendations are: Recommended discharge disposition: home with assist, chcf facility Post discharge occupational therapy recommendation: ongoing [...] to complete sponge bath Bathing, Level of [place]: supervised, set up required Assistive Device: none Bathing Assess/Train, Position: standing Bathing Impairments: strength decreased, impaired functional endurance/activity tolerance [facility], donned a clean with assist to tie. she managed her pants off/on over hips with toileting and during sponge bath. LB Dressing, Level of [place]: stand by assist Assistive Device: none LB Dressing Assess/Train, Position: standing LB Dressing Impairments: decreased flexibility, strength decreased, impaired balance, pain, impaired functional endurance/activity tolerance No physical assistance required Toileting, Level of [place]: supervised Assistive Device: grab bar Toileting Assess/Train, Position: sitting Toileting Impairments: decreased flexibility, strength decreased, impaired balance, pain, m otor control impaired, impaired functional endurance/activity tolerance leaning against counter for support Grooming, Level of [place]: supervised Assistive Device: none Grooming Assess/Train, Position: supported standing Grooming Impairments: strength decreased, impaired balance, impaired functional endurance/a ctivity tolerance Transfers Pt walked loop in hallway, ~220 ft. Reported this was the first time she had been up to [employer] today. Increased time, but no physical assistance required and no need for restbreak Sit-Stand, Level of [place]: modified independent Stand-Sit, Level of [place]: modified independent Jvr-Ocfsf-Unp, Assistive Device: 2 wheeled walker (FWW), none Toilet, Level of [place]: supervised Toilet, Assistive Device: 2 wheeled walker (FWW), grab bars Safety Issues: step length decreased, weight-shifting ability decreased Impairments: coordination impaired, impaired balance OT Goal Review Date Most Recent Value STG Review Date 05/09/18 at 05/02/2018 1407 Grooming Goal Most Recent Value STG Status progressing at 05/04/2018 0940 STG [place] Level modified independent at 05/02/2018 1407 STG Position standing at 05/02/2018 1407 LB Dressing Goal Most Recent Value STG Status progressing at 05/04/2018 0940 STG [place] Level modified independent at 05/02/2018 1407 Additional Goals #1 OT Most Recent Value STG Status continued at 05/04/2018 0940 STG Pt. 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 Answer call light i n person and/or [...] 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 Answer call light i n person and/or [...] muscles, no retractions. lan of Care - Filomena Gardner RN - 05/04/2018 4:34 AM PSTProblem: Patient [...] 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 Answer call light i n person and/or [...] shift. Pt ambulates in room with 2WW, merlene menjivar. 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 Answer call light i n person and/or [...] has pain in her back and belly (4/10) but is less nauseous this p.m. Emphasis [...] vital sign response to mobility. Level of [place]: supervised Assistive Device: 2 wheeled walker (FWW) Distance (feet): suzanne. 275 ft Transfers Pt able to perform sit <> stand from regular height surfaces with increased time and effort but no physical assist required. Sit-Stand, Level of [place]: modified independent Stand-Sit, Level of [place]: modified independent Hyu-[place]uak-Wco, Assistive Device: none, 2 wheeled walker (FWW) Toilet, Level of [place]: supervised Toilet, Assistive Device: grab bars Safety Issues: sequencing ability decreased, step length decreased, weight-shifting ability decreased Impairments: coordination impaired, impaired balance Bed Mobility Increased time and effort, no phys A needed Assistive Device: HOB elevated Supine to Sit, Level of [place]: modified independent Sit to Supine, Level of [place]: modified independent Safety Issues: decreased use of [...] STG Review Date 05/04/18 at 04/27/2018 1206 Shxqoo-Nlx-Lptpyz Goal Most Recent Value STG Status met at 04/28/2018 1145 STG [place] Level modified independent at 04/27/2018 1206 STG Assistive Device none at 04/27/2018 1206 STG Comments simulate home environment at 04/27/2018 1206 Dqu-Uznnu-Wxc Goal Most Recent Value STG Status met at 05/03/2018 1608 STG [place] Level modified independent at 04/27/2018 1206 STG Comments with or w/o AD at 04/27/2018 1206 Sek-Zppae-Uzn Goal Most Recent Value STG Status met at 05/03/2018 1608 STG [place] Level modified independent at 04/27/2018 1206 STG Comments with or w/o AD at 04/27/2018 1206 Gait Goal Most Recent Value STG Status progressing at 05/03/2018 1608 STG [place] Level modified independent at 04/27/2018 1206 STG [...] PT, 05/03/2018 16:13 lan of Care - Kath Hameed MSW - 05/03/2018 3:53 PM PSTProblem: Discharge Planning Goal: Patient will be discharged in a safe manner Outcome: Improving This mattress spring encaser went to follow up with patient and she was just getting started with PT. Attempted to call Luis Antonio, lavell Gallegos RN at [facility] [phone]. Apparently , [employer] phone system is down and this CM was sent to the Acoustical Tile Drill Press Operator VM--Left a VM asking her to call this CM back. This CM will re-visit with patient to further discuss any discharge needs tomorrow. Electro nically signed by: SHASHI Ulrich 05/03/2018 15:53 lan of Care - Lorraine Mesa se, RN - 05/03/2018 3:13 PM PSTProblem: Patient [...] 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 Answer call light i n person and/or [...] of this note might be different from paul e original. Problem: Patient Care Overview (Adult) [...] 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 Answer call light i n person and/or [...] ADLs, not yet able to mobilize at [facility] for home discharge and medical status. Tiny will benefit from continued therapeutic intervention to address ongoing impairment s and increase safety and independence with activities necessary for safe discharge. Refer below for specific details regarding functional levels. Occupational Therapy Discharge Recommendations are: Recommended discharge disposition: home with assist, chcf facility Post discharge occupational therapy recommendation: ongoing [...] thread B feet LB Dressing, Level of [place]: maximal assist (25% patient effort) Assistive Device: none LB Dressing Assess/Train, Position: sitting, standing LB Dressing Impairments: decreased flexibility, strength decreased, impaired balance, pain, impaired functional endurance/activity tolerance No physical assistance required Toileting, Level of [place]: supervised Assistive Device: grab bar Toileting Assess/Train, Position: sitting Toileting Impairments: decreased flexibility, strength decreased, impaired balance, pain, m otor control impaired, impaired functional endurance/activity tolerance Bed Mobility Sit to Supine, Level of [place]: modified independent Safety Issues: decreased use of legs for bridging/pushing Impairments: coordination impaired Transfers Pt walked loop in [facility], ~220 ft. Reported this was the first time she had been up to [employer] today. Increased time, but no physical assistance required and no need for restbreak Sit-Stand, Level of [place]: modified independent Stand-Sit, Level of [place]: modified independent Zco-Zjptw-Vyw, Assistive Device: none, 2 wheeled walker (FWW) Toilet, Level of [place]: supervised Toilet, Assistive Device: grab bars Safety Issues: sequencing ability decreased, step length decreased, weight-shifting ability decreased Impairments: coordination impaired, impaired balance OT Goal Review Date Most Recent Value STG Review Date 05/09/18 at 05/02/2018 1407 Grooming Goal Most Recent Value STG Status new at 05/02/2018 1407 STG [place] Level modified independent at 05/02/2018 1407 STG Position standing at 05/02/2018 1407 LB Dressing Goal Most Recent Value STG Status progressing at 05/03/2018 1349 STG [place] Level modified independent at 05/02/2018 1407 Additional Goals #1 OT Most Recent Value STG Status continued at 05/03/2018 1349 STG Pt. will tolerate BLE compression wraps and other edema management techniques includin g MLM for edema management at 05/02/2018 1407 Electronically signed by: Romaine Romero OT, 05/03/2018 15:49 lan of Care - Vera Barbara morton, PT - 05/03/2018 8:53 AM PSTProblem: Patient [...] 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 Answer call light i n person and/or [...] 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 Answer call light i n person and/or [...] Otherwise pt slept well overnight. lan of [facility] Sondra coffey, [employer]VEYING - 05/03/2018 4:28 AM PSTProblem: Patient Care [...] 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 Answer call light i n person and/or [...] 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 Answer call light i n person and/or [...] 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 Answer call light i n person and/or [...] Comment: Lives alone, meals delivered, nurse from [facility] visits along with others in community. Pt [...] STG Status new at 05/02/2018 1407 STG [place] Level modified independent at 05/02/2018 1407 STG Position standing at 05/02/2018 1407 LB Dressing Goal Most Recent Value STG Status new at 05/02/2018 1407 STG [place] Level modified independent at 05/02/2018 1407 Additional [...] 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 Answer call light i n person and/or [...] 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 Answer call light i n person and/or [...] sign response (see flow sheets). Level of [place]: supervised Assistive Device: 2 wheeled walker (FWW) Distance (feet): 300 Transfers Pt requires increased time and effort but able to demo safe transfer technique without mary marin. Sit-Stand, Level of [place]: modified independent Stand-Sit, Level of [place]: modified independent Lpj-Nogzk-Aml, Assistive Device: none, 2 wheeled walker (FWW) Safety Issues: sequencing ability decreased, step length decreased, weight-shifting ability decreased Impairments: coordination impaired, impaired balance Bed Mobility Increased time and effort, no phys A needed Assistive Device: bed rails, HOB elevated Supine to Sit, Level of [place]: modified independent Sit to Supine, Level of [place]: not tested Safety Issues: decreased use of [...] STG Review Date 05/04/18 at 04/27/2018 1206 Mrrvwr-Trt-Idbmlj Goal Most Recent Value STG Status met at 04/28/2018 1145 STG [place] Level modified independent at 04/27/2018 1206 STG Assistive Device none at 04/27/2018 1206 STG Comments simulate home environment at 04/27/2018 1206 Uus-Tmltd-Uvp Goal Most Recent Value STG Status progressing at 04/29/2018 1100 STG [place] Level modified independent at 04/27/2018 1206 STG Comments with or w/o AD at 04/27/2018 1206 Ybi-Igkcf-Ppo Goal Most Recent Value STG Status progressing at 04/29/2018 1100 STG [place] Level modified independent at 04/27/2018 1206 STG Comments with or w/o AD at 04/27/2018 1206 Gait Goal Most Recent Value STG Status progressing at 04/29/2018 1100 STG [place] Level modified independent at 04/27/2018 1206 STG [...] 9:25 lan of Care - James Sr I RN - 05/02/2018 4:54 AM PSTProblem: Patient [...] 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 Answer call light i n person and/or [...] VSS. lan of Care - Eric Garcia RRT - 05/02/2018 4:42 AM PSTProblem: Patient Care [...] 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 Answer call light i n person and/or [...] 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 Answer call light i n person and/or [...] falls/injury. lan of Care - James Smart I RN - 05/01/2018 3:38 AM PSTProblem: Patient [...] 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 Answer call light i n person and/or [...] maintained. lan of Care - Tammy Baron, [employer] CLE[employer]VEYING - 04/30/2018 8:51 PM PSTProblem: Patient Care [...] 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 Answer call light i n person and/or [...] 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 Answer call light i n person and/or [...] she is voiding. lan of Care - [facility], Rosy Duran RN - 04/30/2018 10:25 AM [...] 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 Answer call light i n person and/or [...] for mobility assist lan of Care - Junaid torresEder, [employer]VEYING - 04/30/2018 5:12 AM PSTProblem: Patient Care [...] 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 Answer call light i n person and/or [...] 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 Answer call light i n person and/or [...] 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 Answer call light i n person and/or [...] known. Will continue to monitor. lan of Falguni Haines - 04/29/2018 1:04 PM PSTFaxed updated chart notes to [facility]. Received the communication result report; result ok Electronically signed by: Falguni Hebert 04/29/2018 13:04 This CM left a message on the voicemail of Luis Antonio at [facility] asking for a return call. PH: [phone] Electronically signed by: Falguni Hebert 04/29/2018 15:03 [...] 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 Answer call light i n person and/or [...] good tolerance, stability, slowed rosa Level of [place]: stand by assist Assistive Device: 2 wheeled walker (FWW) Distance (feet): 300' Transfers No phys A needed, increased time/effort, needs intermittent object support Sit-Stand, Level of [place]: supervised Stand-Sit, Level of [place]: supervised Bgq-Cylje-Hbt, Assistive Device: 2 wheeled walker (FWW) Toilet, Level of [place]: supervised Toilet, Assistive Device: grab bars Safety Issues: sequencing ability decreased, step length decreased, weight-shifting ability decreased Impairments: coordination impaired, impaired balance Bed Mobility Increased time and effort, no phys A needed Assistive Device: bed rails, HOB elevated Supine to Sit, Level of [place]: modified independent Sit to Supine, Level of [place]: not tested Safety Issues: decreased use of [...] STG Review Date 05/04/18 at 04/27/2018 1206 Kamtrk-Mac-Nugdgm Goal Most Recent Value STG Status met at 04/28/2018 1145 STG [place] Level modified independent at 04/27/2018 1206 STG Assistive Device none at 04/27/2018 1206 STG Comments simulate home environment at 04/27/2018 1206 Aly-Wpvqg-Sae Goal Most Recent Value STG Status progressing at 04/29/2018 1100 STG [place] Level modified independent at 04/27/2018 1206 STG Comments with or w/o AD at 04/27/2018 1206 Qkj-Cayqh-Hzc Goal Most Recent Value STG Status progressing at 04/29/2018 1100 STG [place] Level modified independent at 04/27/2018 1206 STG Comments with or w/o AD at 04/27/2018 1206 Gait Goal Most Recent Value STG Status progressing at 04/29/2018 1100 STG [place] Level modified independent at 04/27/2018 1206 STG [...] PT, 04/29/2018 12:14 lan of Care - Angelina Whaley Chaplain - 04/29/2018 11:55 AM PSTProblem: Patient Care [...] 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 Answer call light i n person and/or [...] hypervolemia type [E87.70] 3+ pitting edema [R60.9]. Blister Packing Machine Tender visit was in response to the patient's request to attend a episcopal service. Spiritual Evaluation: The patient welcomed spiritual care and was glad to attend the [facility] Chapel service. She i s Scientology and has desired to attend mass at her own yazidism [facility] in [facility], but lenz s been unable to in the last few weeks due to her illness and lack of transportation. She is connected with Father Onur at her yazidism. 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 Spiritual Interventions: The grocery caddy attended, brought patient to the chapel by [...] 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 Answer call light i n person and/or [...] rounding completed. lan of Care - Shani Rocha, DANIE - 04/28/2018 11:07 PM PSTProblem: Patient Care [...] 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 Answer call light i n person and/or [...] 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 Answer call light i n person and/or [...] today. She had diminished breath s ounds. [facility] - Debra Solorzano RN - 04/28/2018 4:08 [...] at 10:45. I will pass on to night time nanny that she wo uld like a wheelchair and chaplain Angelina, said she would wheel her down to chapel at the t [facility]. 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 Answer call light i n person and/or [...] hypervolemia type [E87.70] 3+ pitting edema [R60.9]. Blister Packing Machine Tender visit was part of routine rounding. Spiritual Evaluation: This was a follow-up visit to offer prayer support and assess any further patient needs. T he patient welcomed the visit and prayer. She also requested a Bible as well as any other C hristian literature such as the [employer] devotional pamphlet. She attends [facility] [employer] in [place], [place] where Father Onur is a clinical assessment manager. Her sister continues to b e a support to her. She shared that she has been hospitalized in several locations since and that it has been challenging and that she has felt discouraged at times. T he patient would like to attend Scientology chapel services on at 11 am. Spiritual Interventions: The grocery caddy attended, offered care, witnessed patient's story, responded to emotional pain , identified concerns, provided a Bible and offered prayer. 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 Answer call light i n person and/or [...] hypervolemia type [E87.70] 3+ pitting edema [R60.9]. Blister Packing Machine Tender visit was part of routine rounding. Spiritual Evaluation: The patient was resting in a bed attended by her sister. She was pleasant and engaged acti vely and with humor. She had requested Scientology spiritual support and was glad to finally s ee the grocery caddy. She was also interested in attending chapel services. The patient express ed that at times she feels anxious and overwhelmed when her room is very busy. She feels gr ateful for her care and she says that she has everything she needs at home. Her sister is s upportive as well as some friends in [place]. 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 Answer call light i n person and/or [...] widened NANY and lateral shifts Level of [place]: contact guard assist, stand by assist Assistive Device: cane (straight, single point) Distance (feet): 175' Transfers Pt completes transfers well with minimal object support, increased time/effort Sit-Stand, Level of [place]: supervised Stand-Sit, Level of [place]: supervised Stg-Atktc-Cud, Assistive Device: cane (straight, single point) Safety Issues: sequencing ability decreased, step length decreased, weight-shifting ability decreased Impairments: coordination impaired, impaired balance Bed Mobility Practiced bed mobility with bed flat, no railing to simulate home environment. Able to comp lete with increased time and effort, no phys A needed Assistive Device: none, bed rails Supine to Sit, Level of [place]: modified independent Sit to Supine, Level of [place]: modified independent Safety Issues: decreased use of [...] STG Review Date 05/04/18 at 04/27/2018 1206 Cdcenv-Dka-Ffjevi Goal Most Recent Value STG Status met at 04/28/2018 1145 STG [place] Level modified independent at 04/27/2018 1206 STG Assistive Device none at 04/27/2018 1206 STG Comments simulate home environment at 04/27/2018 1206 Klx-Frjce-Snu Goal Most Recent Value STG Status progressing at 04/28/2018 1145 STG [place] Level modified independent at 04/27/2018 1206 STG Comments with or w/o AD at 04/27/2018 1206 Xhx-Ijlim-Cyu Goal Most Recent Value STG Status progressing at 04/28/2018 1145 STG [place] Level modified independent at 04/27/2018 1206 STG Comments with or w/o AD at 04/27/2018 1206 Gait Goal Most Recent Value STG Status progressing at 04/28/2018 1145 STG [place] Level modified independent at 04/27/2018 1206 STG [...] PT, 04/28/2018 11:49 lan of Care - Hitchcock , Madeline Morales RN - 04/28/2018 3:24 [...] 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 Answer call light i n person and/or [...] in bed. 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 Answer call light i n person and/or [...] Pt notes [facility]. Will do trial with cane next visit [...] Comment: Lives alone, meals delivered, nurse from [facility] visits along with others in community. Pt [...] occasional furniture or wall support Level of [place]: stand by assist Assistive Device: 2 wheeled walker (FWW), bariatric Distance (feet): 150' + 15', 25' Transfers Pt transfers w/o phys A needed, increased time/effort. Able to sit and rise from low toilet with grab bar A Sit-Stand, Level of [place]: supervised Stand-Sit, Level of [place]: supervised Irv-Watep-Tti, Assistive Device: 2 wheeled walker (FWW), bariatric Toilet, Level of [place]: supervised Toilet, Assistive Device: grab bars Safety Issues: sequencing ability decreased, step length decreased, weight-shifting ability decreased Impairments: coordination impaired Bed Mobility Pt with HOB fully elevated, no phys A needed for OOB, increased time/effort Assistive Device: HOB elevated, bed rails Supine to Sit, Level of [place]: supervised Sit to Supine, Level of [place]: not tested Safety Issues: decreased use of [...] STG Review Date 05/04/18 at 04/27/2018 1206 Rrizyu-Xbt-Kaugds Goal Most Recent Value STG Status new at 04/27/2018 1206 STG [place] Level modified independent at 04/27/2018 1206 STG Assistive Device none at 04/27/2018 1206 STG Comments simulate home environment at 04/27/2018 1206 Byv-Cobeg-Tti Goal Most Recent Value STG Status new at 04/27/2018 1206 STG [place] Level modified independent at 04/27/2018 1206 STG Comments with or w/o AD at 04/27/2018 1206 Snj-Bylcs-Cbm Goal Most Recent Value STG Status new at 04/27/2018 1206 STG [place] Level modified independent at 04/27/2018 1206 STG Comments with or w/o AD at 04/27/2018 1206 Gait Goal Most Recent Value STG Status new at 04/27/2018 1206 STG [place] Level modified independent at 04/27/2018 1206 STG [...] 1206 Electronically signed by: Antonina Bhagat, PT, 04/27/2018 12:16 lan of Care - Madeline Hitchcock RN - 04/27/2018 5:34 AM PSTProblem: Patient [...] 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 Answer call light i n person and/or [...] well between cares. 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 Answer call light i n person and/or [...] well between cares. 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 Answer call light i n person and/or [...] her eq uipment back in". 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 Answer call light i n person and/or [...] to sleep well between ca res. 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 Answer call light i n person and/or [...] as needed. lan of Care - Mary Cabrrea, [facility] - 04/24/2018 1:06 PM PSTDischarge Planning Goal: Pt to be discharged in a safe manner Summary /Intervention: Met with patient to discuss potential discharge needs. Tiny is alert and well oriented, lying in bed. Pt states she [facility] [place]. She appears to be well co nnected with [facility]. She has a nurse, Luis Antonio who [...] room). Pt reports that she was in [facility] for 22 days, only recently discharged home. Pt hopes to be able to discharge directly home. States her sister will provide transportati on. Plan: CM to follow Anticipate return home with support from [facility]. 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 Answer call light i n person and/or [...] has a go od cough. 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 Answer call light i n person and/or [...] bowel tones active x4 (last BM was 04-22-18), up ambulating to the bathroom voiding light [...] +--------+ + + + | EXTRA MISHA TOP | Routin | 05/04/2018 | | [...] +--------+ + + + | EXTRA MISHA TOP | Routin | 05/02/2018 | | [...] L?MRN: | | | | | | [id number] | | | [id number] | | | riteri | | | [...] | | | St. | | | Myra | | | y | | | [...] | | | St. | | | Myra | | | y | | | [...] | | | St. | | | Myra | | | y | | | [...] | | | St. | | | Myra | | | y | | | [...] | | | St. | | | Myra | | | y | | | [...] | | | St. | | | Myra | | | y | | | [...] | | | St. | | | Myra | | | y | | | [...] | | | St. | | | Myra | | | y H. | | [...] | | | St. | | | Myra | | | y H. | | [...] | | | St. | | | Myra | | | y H. | | [...] | | | St. | | | Myra | | | y H. | | | [place] | | | [place] | | | Emerge | | | ncy | | | Chief | | | Compla | | | int: | | | ABD | | | PAIN | | | Dec 3, | | | 2018 | | | [facility] | [facility] | | | [facility] | | | y H. | | [...] | | | St. | | | Myra | | | y H. | | [...] | | | St. | | | Myra | | | y H. | | [...] | | | St. | | | Myra | | | y H. | | [...] | | | St. | | | Myra | | | y H. | | [...] | | | St. | | | Myra | | | y H. | | [...] | | | St. | | | Myra | | | y H. | | [...] | | | t | | | TURNG | | | N | | | [...] | | | ent/f7 | | | [id number] | | | [id number] | | | [...] [address] | [place] | [phone] | | [facility] | | [address] | | | - LABORATORY | | [...] 12 | 7 - 18 mg/dL | [facility] | | | | | | [facility] | | | | | | MEDICAL | | | | | | CENTER - | | | | | | LABORATORY | | + + + + + + | Creatinine | 1.07 | 0.60 - 1.30 | [facility] | | | | | mg/dL | [facility] | | | | | | MEDICAL | | | | | | CENTER - | | | | | | LABORATORY | | + + + + + + | eGFR, | 56 (L)Comment: | >=60 | [facility] | | | non- | GLOMERULAR FILTRATION | mL/min/1.73m2 | [facility] | | | [place]ian | RATE,ESTIMATED | | MEDICAL | | | | mL/min/1.07y3Wwyc than | | CENTER - | | [...] + | [facility] | [address] | [place] | [phone] | | [facility] | | [address] | | | - LABORATORY | | [...] [address] | [place] | [phone] | | [facility] | | [address] | | | - LABORATORY | | [...] [address] | [place] | [phone] | | [facility] | | [address] | | | - LABORATORY | | [...] | 7 - 18 mg/dL | [facility] | | | | | | . [facility] | | | | | | MEDICAL | | | | | | CENTER - | | | | | | LABORATORY | | + + + + + + | Creatinine | 1.10 | 0.60 - 1.30 | [facility] | | | | | mg/dL | [facility] | | | | | | MEDICAL | | | | | | CENTER - | | | | | | LABORATORY | | + + + + + + | eGFR, | 54 (L)Comment: | >=60 | [facility] | | | non- | GLOMERULAR FILTRATION | mL/min/1.73m2 | [facility] | | | [place]ian | RATE,ESTIMATED | | MEDICAL | | | | mL/min/1.98x7Rfio than | | CENTER - | | [...] + | [facility] | [address] | [place] | [phone] | | [facility] | | [address] | | | - LABORATORY | | [...] + | [facility] | [address] | [place], [place] | [phone] | | [facility] | | [address] | | | - LABORATORY | | [...] [address] | [place] | [phone] | | [facility] | | [address] | | | - LABORATORY | | [...] | 1.03 | 0.60 - 1.30 | [facility] | | | | | mg/dL | [facility] | | | | | | MEDICAL | | | | | | CENTER - | | | | | | LABORATORY | | + + + + + + | eGFR, | 59 (L)Comment: | >=60 | [facility] | | | non- | GLOMERULAR FILTRATION | mL/min/1.73m2 | [facility] | | | [place]ian | RATE,ESTIMATED | | MEDICAL | | | | mL/min/1.28g2Makk than | | CENTER - | | [...] [address] | [place] | [phone] | | [facility] | | [address] | | | - LABORATORY | | [...] [address] | [place] | [phone] | | [facility] | | [address] | | | - LABORATORY | | [...] | 1.11 | 0.60 - 1.30 | [facility] | | | | | mg/dL | [facility] | | | | | | MEDICAL | | | | | | CENTER - | | | | | | LABORATORY | | + + + + + + | eGFR, | 54 (L)Comment: | >=60 | [facility] | | | non- | GLOMERULAR FILTRATION | mL/min/1.73m2 | [facility] | | | [place]ian | RATE,ESTIMATED | | MEDICAL | | | | mL/min/1.45t9Agsc than | | CENTER - | | [...] 7.9 (L) | 8.3 - 10.5 | [facility] | | | | | mg/dL | [facility] | | | | | | [...] | | | Protein | | | [facility] | | [...] + | [facility] | [address] | [place] | [phone] | | [facility] | | [address] | | | - LABORATORY | | [...] ranges: Trim. Absolute (K/uL) Percentage (%) | [facility] | | 1st 0.003-0.091 K/uL 0.0-0.9% 2nd 0.007-0.247 K/uL | [facility] | | 0.1-2.0% 3rd 0.018-0.456 K/uL 0.1-2.0% | - LABORATORY | + + + + + + + + | Performing | Address | City/State/Zipcode | Phone Number | | Organization | | | | + + + + + | [facility] | [address] | [place] | [phone] | | [facility] | | [address] | | | - LABORATORY | | | | + + + + + Extra Lavender Top Tube (05/02/2018 6:30 AM PST) + +-------+ + + + | Component | Value | Ref Range | Performed | Pathologist | | | | | At | Signature | + +-------+ + + + | Extra | Done | | [facility] | | | Misha | | | [facility] | | [...] [address] | [place] | [phone] | | [facility] | | [address] | | | - LABORATORY | | [...] + | [facility] | [address] | [place] | [phone] | | [facility] | | [address] | | | - LABORATORY | | [...] mL/min/1.73m2 | [facility] | | | [place] | RATE,ESTIMATED | | MEDICAL | | | | mL/min/1.81r3Zsaq than | | CENTER - | | [...] + | BUN/Creatin | 10.0 | | [facility] | | | ine [...] [address] | [place] | [phone] | | [facility] | | [address] | | | - LABORATORY | | [...] | | | | EREN NICOLE MD ([id number]) | | | | | | on [...] mL/min/1.73m2 | [facility] | | | [place] | RATE,ESTIMATED | | MEDICAL | | | | mL/min/1.28d2Jnlc than | | CENTER - | | [...] | ine Ratio | | | [facility] | | [...] [address] | [place] | [phone] | | [facility] | | [address] | | | - LABORATORY | | [...] | | Eosinophils | | K/uL | [facility] | | | | | | MEDICAL | | | | | | CENTER - | | | | | | LABORATORY | | + + + + + + | Absolute | 0.09 | 0.00 - 0.10 | [facility] | | | Basophils | | K/uL | [facility] | | [...] ranges: Trim. Absolute (K/uL) Percentage (%) | [facility] | | 1st 0.003-0.091 K/uL 0.0-0.9% 2nd 0.007-0.247 K/uL | [facility] | | 0.1-2.0% 3rd 0.018-0.456 K/uL 0.1-2.0% | - LABORATORY | + + + + + + + + | Performing | Address | City/State/Zipcode | Phone Number | | Organization | | | | + + + + + | [facility] | [address] | [place] | [phone] | | [facility] | | [address] | | | - LABORATORY | | [...] + | [facility] | [address] | [place] | [phone] | | [facility] | | [address] | | | - LABORATORY | | [...] [address] | [place] | [phone] | | [facility] | | [address] | | | - LABORATORY | | [...] | Neutrophils | | K/uL | [facility] | | | | | | MEDICAL | | | | | | CENTER - | | | | | | LABORATORY | | + + + + + + | Absolute | 2.67 | 0.60 - 3.20 | [facility] | | | Lymphocytes | | K/uL | [facility] | [...] 0.003-0.091 K/uL 0.0-0.9% 2nd 0.007-0.247 K/uL | [facility] | | 0.1-2.0% 3rd 0.018-0.456 K/uL 0.1-2.0% | - LABORATORY | + + + + + + + + | Performing | Address | City/State/Zipcode | Phone Number | | Organization | | | | + + + + + | [facility] | [address] | [place] | [phone] | | [facility] | | [address] | | | - LABORATORY | | [...] + | [facility] | [address] | [place] | [phone] | | [facility] | | [address] | | | - LABORATORY | | [...] mL/min/1.73m2 | [facility] | | | [place]ian | RATE,ESTIMATED | | MEDICAL | | | | mL/min/1.77d7Hrur than | | CENTER - | | [...] ST. | [address] | [place] | [phone] | | [facility] | | [address] | | | - LABORATORY | | [...] [address] | [place] | [phone] | | [facility] | | [address] | | | - LABORATORY | | | | + + + + + Ferritin (04/29/2018 7:31 AM PST) + +-------+ + + + | Component | Value | Ref Range | Performed | Pathologist | | | | | At | Signature | + +-------+ + + + | FERRITIN | 57 | 11 - 307 ng/mL | [facility] | | | | | | [facility] | | | | | | [...] [address] | [place] | [phone] | | [facility] | | [address] | | | - LABORATORY | | | | + + + + + Magnesium (04/29/2018 7:31 AM PST) + +-------+ + + + | Component | Value | Ref Range | Performed | Pathologist | | | | | At | Signature | + +-------+ + + + | Magnesium | 2.0 | 1.8 - 2.5 mg/dL | [facility] [...] + | [facility] | [address] | [place] | [phone] | | [facility] | | [address] | | | - LABORATORY | | [...] | | | | | mg/dL | [facility] | | | | | | MEDICAL | | | | | | CENTER - | | | | | | LABORATORY | | + + + + + + | eGFR, | 42 (L)Comment: | >=60 | [facility] | | | non- | GLOMERULAR FILTRATION | mL/min/1.73m2 | [facility] | | | [place]ian | RATE,ESTIMATED | | MEDICAL | | | | mL/min/1.08y9Ypdn than | | CENTER - | | [...] | | | | | mg/dL | [facility] | | | | | | [...] [address] | [place] | [phone] | | [facility] | | [address] | | | - LABORATORY | | | | + + + + + Magnesium (04/28/2018 6:07 AM PST) + +-------+ + + + | Component | Value | Ref Range | Performed | Pathologist | | | | | At | Signature | + +-------+ + + + | Magnesium | 2.1 | 1.8 - 2.5 mg/dL | [facility] | | | | | | [facility] | | | | | | [...] + | [facility] | [address] | [place] | [phone] | | [facility] | | [address] | | | - LABORATORY | | [...] eGFR, | 49 (L)Comment: | >=60 | [facility] | | | non- | GLOMERULAR FILTRATION | mL/min/1.73m2 | [facility] | | | [place] | RATE,ESTIMATED | | MEDICAL | | | | mL/min/1.02v1Sela than | | CENTER - | | [...] [address] | [place] | [phone] | | [facility] | | [address] | | | - LABORATORY | | [...] ranges: Trim. Absolute (K/uL) Percentage (%) | [facility] | | 1st 0.003-0.091 K/uL 0.0-0.9% 2nd 0.007-0.247 K/uL | [facility] | | 0.1-2.0% 3rd 0.018-0.456 K/uL 0.1-2.0% | - LABORATORY | + + + + + + + + | Performing | Address | City/State/Zipcode | Phone Number | | Organization | | | | + + + + + | [facility] | [address] | [place], [place] | [phone] | | [facility] | | [address] | | | - LABORATORY | | [...] + | [facility] | [address] | [place] | [phone] | | [facility] | | [address] | | | - LABORATORY | | [...] mL/min/1.73m2 | [facility] | | | [place] | RATE,ESTIMATED | | MEDICAL | | | | mL/min/1.17i5Hsep than | | CENTER - | | [...] [address] | [place] | [phone] | | [facility] | | [address] | | | - LABORATORY | | [...] + | [facility] | [address] | [place] | [phone] | | [facility] | | [address] | | | - LABORATORY | | [...] [address] | [place] | [phone] | | [facility] | | [address] | | | - LABORATORY | | [...] | mL/min/1.73m2 | [facility] | | | [place] | RATE,ESTIMATED | | MEDICAL | | | | mL/min/1.40o2Jytz than | | CENTER - | | [...] [address] | [place] | [phone] | | [facility] | | [address] | | | - LABORATORY | | [...] | Low IPF are consistent | | [facility] | | | Fraction | with [...] [address] | [place] | [phone] | | [facility] | | [address] | | | - LABORATORY | | [...] | | | Oral Anticoagulation | | [facility] | | | | Range: 2.0 [...] [address] | [place] | [phone] | | [facility] | | [address] | | | - LABORATORY | | [...] | + + + + + | [facility] | [address] | [place] | [phone] | | [facility] | | [address] | | | - LABORATORY | | [...] + | [facility] | [address] | [place] | [phone] | | [facility] | | [address] | | | - LABORATORY | | [...] | mL/min/1.73m2 | [facility] | | | [place] | RATE,ESTIMATED | | MEDICAL | | | | mL/min/1.53b1Oxwq than | | CENTER - | | [...] [address] | [place] | [phone] | | [facility] | | [address] | | | - LABORATORY | | [...] + | [facility] | [address] | [place] | [phone] | | [facility] | | [address] | | | - LABORATORY | | [...] [address] | [place] | [phone] | | [facility] | | [address] | | | - LABORATORY | | [...] | | | | | mg/dL | [facility] | | | | | | MEDICAL | | | | | | CENTER - | | | | | | LABORATORY | | + + + + + + | eGFR, | 52 (L)Comment: | >=60 | [facility] | | | non- | GLOMERULAR FILTRATION | mL/min/1.73m2 | [facility] | | | [place]ian | RATE,ESTIMATED | | MEDICAL | | | | mL/min/1.08i4Yagf than | | CENTER - | | [...] | | | | | mg/dL | [facility] | | | | | | [...] [address] [address] | [place] | [phone] | | [facility] | | [address] | | | - LABORATORY | | [...] | | | | | | [employer] | | | | | [...] + | [address] | [address] | [place] | [phone] | | [facility] | | [address] | | | - LABORATORY | | [...] [address] | [place] | [phone] | | [facility] | | [address] | | | - LABORATORY | | [...] [address] | [place] | [phone] | | [facility] | | [address] | | | - LABORATORY | | [...] (L) | 7 - 18 mg/dL | [facility] | | | | | | [facility] | | | | | | MEDICAL | | | | | | CENTER - | | | | | | LABORATORY | | + + + + + + | Creatinine | 1.02 | 0.60 - 1.30 | [facility] | | | | | mg/dL | [facility] | | | | | | MEDICAL | | | | | | CENTER - | | | | | | LABORATORY | | + + + + + + | eGFR, | 59 (L)Comment: | >=60 | [facility] | | | non- | GLOMERULAR FILTRATION | mL/min/1.73m2 | [facility] | | | [place]ian | RATE,ESTIMATED | | MEDICAL | | | | mL/min/1.96f8Zbav than | | CENTER - | | [...] + | [facility] | [address] | [place] | [phone] | | [facility] | | [address] | | | - LABORATORY | | [...] | | | | | | [employer] | | | | | [...] + | [facility] | [address] | [place] | [phone] | | [facility] | | [address] | | | - LABORATORY | | [...] | | | | | | [employer] | | | | | [...] + | [address] [facility] | [address] | [place] | [phone] | | [facility] | | [address] | | | - LABORATORY | | [...] | | | | EREN NICOLE MD ([id number]) | | | | | | on [...] [address] | [place] | [phone] | | [facility] | | [address] | | | - LABORATORY | | [...] [address] | [place] | [phone] | | [facility] | | [address] | | | - LABORATORY | | [...] 0.96 | 0.60 - 1.30 | [facility] | | | | | mg/dL | [facility] | | | | | | MEDICAL | | | | | | CENTER - | | | | | | LABORATORY | | + + + + + + | eGFR, | >60Comment: GLOMERULAR | >=60 | [facility] | | | non- | FILTRATION | mL/min/1.73m2 | [facility] | | | Albanian | RATE,ESTIMATED | | MEDICAL | | | | mL/min/1.63h3Pqbp than | | CENTER - | | [...] + | [address] [facility] | [address] | [place] | [phone] | | [facility] | | [address] | | | - LABORATORY | | [...] | | SERUM/PLASM | | | [facility] | | | A | | | [...] [address] | [place] | [phone] | | [facility] | | [address] | | | - LABORATORY | | [...] [address] | [place] | [phone] | | [facility] | | [address] | | | - LABORATORY | | | | + + + + + Ammonia (04/23/2018 1:12 PM PST) + +--------+ + + + | Component | Value | Ref Range | Performed | Pathologist | | | | | At | Signature | + +--------+ + + + | Ammonia | 44 (H) | 11 - 35 umol/L | [facility] | | | | | | ST. [...] [address] | [place] | [phone] | | [facility] | | [address] | | | - LABORATORY | | [...] | + + + + + | [facility] | [address] | [place] | [phone] | | [facility] | | [address] | | | - LABORATORY | | [...] | | | Oral Anticoagulation | | [facility] | | | | Range: 2.0 [...] [address] | [place] | [phone] | | [facility] | | [address] | | | - LABORATORY | | [...] | | | | | | [employer] | | | | | [...] [address] | [place] | [phone] | | [facility] | | [address] | | | - LABORATORY | | [...] | | | | | mg/dL | [facility] | | | | | | MEDICAL | | | | | | CENTER - | | | | | | LABORATORY | | + + + + + + | eGFR, | 53 (L)Comment: | >=60 | [facility] | | | non- | GLOMERULAR FILTRATION | mL/min/1.73m2 | [facility] | | | Albanian | RATE,ESTIMATED | | MEDICAL | | | | mL/min/1.37g3Aoew than | | CENTER - | | [...] | 8.4 | 8.3 - 10.5 | [facility] | | | | | mg/dL | [...] | | Protein | | | [facility] | | [...] [address] | [place] | [phone] | | [facility] | | [address] | | | - LABORATORY | | [...] | Neutrophils | | K/uL | [facility] | [...] 1st 0.003-0.091 K/uL 0.0-0.9% 2nd 0.007-0.247 K/uL [facility] | | 0.1-2.0% [facility] 0.018-0.456 K/uL 0.1-2.0% | - LABORATORY | + + + + + + + + | Performing | Address | City/State/Zipcode | Phone Number | | Organization | | | | + + + + + | [facility] [facility] | [address] | [place] | [phone] | | [facility] | | [address] | | | - LABORATORY | | [...] | | | | EREN NICOLE MD ([id number]) | | | | | | on [...] + + | Coronary artery disease involving [place] coronary artery, angina presence unspecified, | | unspecified whether [place] or transplanted heart | + + | [...] | | | | | | Starting Thu04/23/18 at 2041 | | | | [...] | | | (after last modification) on e | | | | | | | [...] | ketorolac (TORADOL) injection | Given | 02/09/20 | 15 mg | | | | [...] PST | | | | | ONCE, Thu04/26/18 at 1145, For 1 | | | [...] PST | | | | | ONCE, Thu05/03/18 at 0815, For 1 | | | [...] | | | | PRN, Pain, Starting [facility] 04/29/18 | | AM PST | | [...]
--- OUTSIDE RECORDS SUMMARY | ~2019-11-12 | XMS | Encounter Summary ---
Demographics + + + | Address | [address] | | | [place] [address] | + + + | Home Phone | | + + + | Preferred Language | Unknown | + + + | Marital Status | Single | + + + | Methodist Affiliation | 1041 | + + + [...] | | + + +---------+ + | [place] | ECON | Unknown | | + + +---------+ + Care Team Providers + +------+ + | Care Dimension Specification Inspector Name | Role | Phone | + +------+ + | Julita Cabral PA-C | PCP | | + +------+ + Reason for Visit +---------+--------+ + | Reason | Onset | Comments | | | Date | | +---------+--------+ + | Imaging | 01/18/ | ultrasound needs scheduled | | | 2018 | | +---------+--------+ + Encounter Details +--------+ + + + + | Date | Type | Department | Care Team | Description | +--------+ + + + + | 01/18/ | Telephone | [place] | [facility], | Imaging (ultrasound | | 2018 | | GASTROENTEROLOGY | FRANK [address]connor [address] | needs scheduled) | | | | [address] | [address] | | | | | [address] [place], [place] | [place], [place] | | | | | [address] | [address] | | | | | [phone] | | | +--------+ + + + [...] 0 Standard drinks | 0.0 | stopped 10--18 | | | or equivalent | | | + + +---------+ + + + + | Sex Assigned at | Date Recorded | | | | + + + | Not on file | | + + + documented as of this encounter Miscellaneous Notes Telephone Encounter - Becky Ferris CMA - 01/18/2019 8:44 AM PSTSpoke with patient, she will call [facility] and they will set up ultrasound for her. I asked that they call us back with DOS for insurance. She verbalized understanding. The ultrasound order has been fax ed to [facility] imaging. 8: 54 AM PSTdocumented in this encounter Plan of Treatment Not on filedocumented as of this encounter Visit Diagnoses Not on filedocumented in this encounter"
--- OUTSIDE RECORDS SUMMARY | ~2019-11-12 | XMS | Encounter Summary ---
Demographics + + + | Address | [address] | | | [place] [address] | + + + | Home Phone [...] Team Providers + +------+ + | Care Franchise Sales Representative Name | Role | Phone | + [...] failure, | PharmD [address] | [address] | | | | | unspecified | [address] | [place], | | | | | HF | [place] | [place] | | | | | chronicity, | [place], [place] | [address] | | | | | unspecified | [address] | Phone: | | | | | heart | Phone: | [phone] | | | | | failure type | [phone] | Fax: | | | | | ([facility]) | [phone] | [phone] | | | | | Procedures | | | | | | | CLINICAL EDUCATION MANAGER | | | +--------+ + + + + + Encounter Details +--------+ + + + + | Date | Type | Department | Care Team | Description | +--------+ + + + + | 05/07/ | Orders Only | [facility] | CasonIrma fitzgerald, | Heart failure, | | 2019 | | [facility] | PharmD [address] | unspecified HF | | | | [address] [place] | [address] [place] | chronicity, | | | | [place] [address] | [place] [address] | unspecified heart | | | | [phone] | [phone] | failure type (HCC) | | | [...] +--------+ + + | AMB REFERRAL TO [facility] | Outpatient | Routin [...]
--- OUTSIDE RECORDS SUMMARY | ~2019-11-12 | XMS | Encounter Summary ---
Demographics + + + | Address | [address] | | | [place] [address] | + + + | Home Phone | | + + + | Preferred Language | Unknown | + + + | Marital Status | Single | + + + | Bahai Affiliation | 1041 | + + + | Race | or | + + + | Ethnic Group | Not or | + + + Author + + + | Author | [facility] | | | and [place] | + + + | Organization | [facility] | | | [...] Team Providers + +------+ + | Care Dispatcher Tow Truck Name | Role | Phone | + [...] | NW | [facility] | | | | Sleep | (pediatric) | [place] | [facility] | | | | Medicine | CONSULT PW | [facility] [address] | [place], [place] | | | | | 1:30 | [place], | [address] Phone: | | | | | Procedures | [place] | [phone] | | | | | NEW PATIENT | [address] | Fax: | | | | | | Phone: | [phone] | | | | | | [phone] | | | | | | | Fax: | | | | | | | [phone] | | +--------+--------+ + + + + Encounter Details +--------+---------+ + + + | Date | Type | Department | Care Team | Description | +--------+---------+ + + + | 08/20/ | Office | [facility] | Lupillo [place]es | NO SHOW (Primary Dx) | | 2016 | Visit | SLEEP DISORDER [address] | MD Sully [address] | | | | | [address] [place] | [address] [place] | | | | | [place] [address] | [place] [address] | | | | | [phone] | [phone] | | | | | | | [...] a NO SHOW for a 1 hour [facility] medicine consultation. 2: 21 PM PDTdocumented in this encounter Plan of Treatment Not on filedocumented as of this encounter Visit Diagnoses + + | Diagnosis | + + | No Show - Primary Code used for vists where the patient is not seen | + + documented in this encounter"
--- OUTSIDE RECORDS SUMMARY | ~2019-11-12 | XMS | Encounter Summary ---
Demographics + + + | Address | [address] | | | [place] [address] | + + + | Home Phone [...] Team Providers + +------+ + | Care Saddle And Harness Maker Name | Role | Phone | [...] turbinates; | | | | [place] [address] | | Neoplasm of | | | | [phone] | | uncertain behavior | | | [...]
--- OUTSIDE RECORDS SUMMARY | ~2019-11-12 | XMS | Encounter Summary ---
Demographics + + + | Address | [address] | | | [place] [address] | + + + | Home Phone | | + + + | Preferred Language | Unknown | + + + | Marital Status | Single | + + + | Judaism Affiliation | 1041 | + + + [...] Team Providers + +------+ + | Care Agency Sales Director Name | Role | Phone | + +------+ + | Julita Cabral PA-C | PCP | | + +------+ + Reason for Visit + +--------+ + | Reason | Onset | Comments | | | Date | | + +--------+ + | Appointment | 03/15/ | | | | 2017 | | + +--------+ + Encounter Details +--------+ + + + + | Date | Type | Department | Care Team | Description | +--------+ + + + + | 03/15/ | Telephone | [facility] | Jose Riojas MD | Appointment | | 2018 | | OTOLARYNGOLOGY [address] | [address] [place] [address] | | | | | W [facility] [address] | [address] [place] | | | | | [place] | [address] | | | | | [address] | | | | | | [phone] | | | +--------+ + + + [...] a time. I call Yesica remy at [facility] and asked her to send over a referral for patient. documented in this encounter Plan of Treatment Not on filedocumented as of this encounter Visit Diagnoses Not on filedocumented in this encounter"
--- OUTSIDE RECORDS SUMMARY | ~2019-11-12 | XMS | Encounter Summary ---
Demographics + + + | Address | [address] | | | [place] [address] | + + + | Home Phone | | + + + | Preferred Language | Unknown | + + + | Marital Status | Single | + + + | Restorationist Affiliation | 1041 | + + + | Race | or | + + + | Ethnic Group | Not or | + + + Author + + + | Author | [facility] | | | and [place] | + + + | Organization | [facility] | | | [...] Team Providers + +------+ + | Care Supply Chain Business Analyst Name | Role | Phone | + +------+ + | Julita Cabral PA-C | PCP | | + +------+ + Reason for Visit + +--------+ + | Reason | Onset | Comments | | | Date | | + +--------+ + | Procedure | 12/08/ | surgery date | | | 2018 | | + +--------+ + Encounter Details +--------+ + + + + | Date | Type | Department | Care Team | Description | +--------+ + + + + | 12/08/ | Telephone | [facility] | Jose Riojas MD | Procedure (surgery | | 2018 | | OTOLARYNGOLOGY [address] | [address] | ) | | | | [address] [facility] [address] | [address] [place] | | | | | [place] | [address] | | | | | [address] | | | | | | [phone] | | | +--------+ + + + [...] Miscellaneous Notes Telephone Encounter - Cindy Doran Multiple Tube Winding Machine Operator - 01/11/2019 9:00 AM PDTPatien t has been scheduled for surgery ThursdayFebruary 01. Post op been made and information lenz s already been sent out from when the patient was already scheduled from the first time. Vida ctronically signed by Eneida Rodriguez at 01/11/2019 9:02 AM [place] ne Encounter - Iveth Chappell - 01/05/2019 2:32 PM PDTPatient returned Cindy's call to schedule, I verified phone number. She will turn it up and make sure she is near it. I told her we were trying to reach her to schedule. Electronically signed by Iveth Chappell at 2:33 PM PDTTelephone Encounter - Cindy Doran Multiple Tube Winding Machine Operator - 9:34 AM PDTI tried calling patient but once again there is no answer. Surgery has been ap proved. If patient is going to schedule we need to get a good number because patient never a nswers or its a none working number. elephone Encounter - Cindy Doran Multiple Tube Winding Machine Operator - 12/14/2018 10:22 AM PDTAve to get new auth. Ten is working on it and will let me know w hen its all done. Then I will call the patient to let her know then we can schedule her. Vida ctronically signed by Eneida Rodriguez at 12/14/2018 10:23 AM PDTTelepho ne Encounter - Iveth Chappell - 12/08/2018 4:05 PM PDTPatient would like to reschedule h er nasal surgery with Dr. Riojas; she said that Y is going to provider medical transportatio n for her this time so she won't miss it. She also updated her phone number so it is current in registration. docume nted in this encounter Plan of Treatment Not on filedocumented as of this encounter Visit Diagnoses Not on filedocumented in this encounter"
--- OUTSIDE RECORDS SUMMARY | ~2019-11-12 | XMS | Encounter Summary ---
Demographics + + + | Address | [address] | | | [place] [address] | + + + | Home Phone [...] Team Providers + +------+ + | Care Metals Analyst Name | Role | Phone | [...] | | vomiting, | | [address], | | | | | vomiting of | | [address] | | | | | unspecified | | [place], | | | | | type | | [place] [address] | | | | | [place] | | Phone: | | | | | pneumonia | | [phone] | | | | | due to | | Fax: | | | | | gastric | | [phone] | | | | | secretions | [...] + + | 04/17/ | Hospital | [facility] | Keaton Wakefield MD | Nausea and vomiting, | | 2016 | Encounter | [facility] | [address], [place] | vomiting of | | | | [address] | [address] [place] | unspecified type | | | | [place] | [address] | (Primary Dx) | | | | [address] | | | | | | [phone] | | | +--------+ + + + [...] and well-nourished. No distress. Morbid obesity B [place] 49.4 HENT: Head: Normocephalic and atraumatic. Right [...] normal. Nursing note and vitals reviewed. 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 documented in [...] | [employer]OVATION | | 04/17/2015 12:31 PMMRN: [id number] #: [id number] of : | | | 1975Admit Type: AmbulatoryAge: 39Room: [facility] 01Gender: FemaleNote | | | Status: [...] physician, the nurse, the anesthesiologist and the avionics electronics technician | | | in the procedure [...] Addenda: 0Note Initiated On: 04/17/2015 12:31 PM [facility]. | | | [facility], [address] [place] [address] | | | [phone] | | | - The retroflexed view [...] On: 04/17/2015 12:31 PM | | | [facility], [address] [place] [address] | | | [address] | | + + -+ + +---------+ + + | Performing | Address | City/State/[facility] Southern New Mexicocode | Phone Number | | Organization | [...] + | [facility] | [address] | [place] | [phone] | | [facility] | | [address] | | | - LABORATORY | | [...] [address] | [place] | [phone] | | [facility] | | [address] | | | - LABORATORY | | [...] + | [facility] | [address] | [place] | [phone] | | [facility] | | [address] | | | - LABORATORY | | [...] | 1.010, 1.015, | | | | [place], | | 1.020, 1.025 | | | | POC | | | | | + + + + + + | Internal QC | Acceptable | | | | + + + + + + | Lot Number | [id number] | | | | + + + [...] DUODENAL BIOPSY SPECIMEN SOURCE: A. DUODENAL | [place] [facility] | | BIOPSY CLINICAL HISTORY: R11.2 [...] | | peptic duodenitis or other abnormality. BES:[facility]:C3NR GROSS | | | DESCRIPTION: Received in formalin labeled "Tiny Campuzano" and | | | "duodenal biopsy" on the requisition are multiple pink-santa tissue | | | fragments measuring from <0.1-0.4 cm, all in (A1). ka:RosVR:[facility] | | | PERFORMING LABORATORY: Tissue processing and slide preparation were | | | performed by [employer], [facility] [address], [facility] | | | [place] [address] (Hospital Receptionist: Reilly Thomas M.D. CANDI#: | | | [id number]). Professional interpretation was performed by [employer] | | | [employer], [address], [place] [address] | | | (Hospital Receptionist: Reilly Thomas M.D.; SHAZIA#: [id number]). | | | Diagnostician: Daniel Briscoe MD [...]
--- OUTSIDE RECORDS SUMMARY | ~2019-11-12 | XMS | Encounter Summary ---
Demographics + + + | Address | [address] | | | [place] [address] | + + + | Home Phone [...] Team Providers + +------+ + | Care Bulk Plant Agent Name | Role | Phone | [...] | | vomiting, | | [address], | | | | | vomiting of | | [address] | | | | | unspecified | | [place], | | | | | type | | [place] [address] | | | | | [place] | | Phone: | | | | | pneumonia | | [phone] | | | | | due to | | Fax: | | | | | gastric | | [phone] | | | | | secretions | [...] + + | 04/17/ | Surgery | [facility] | Keaton Wakefield MD | EGD | | 2016 | | [facility] | [address], [place] | | | | | [address] | [address] [place] [address] | | | | | [place], [place] | [address] | | | | | [address] | | | | | | [phone] | | | +--------+---------+ + + + [...] and well-nourished. No distress. Morbid obesity B [place] 49.4 HENT: Head: Normocephalic and atraumatic. Right [...] normal. Nursing note and vitals reviewed. 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 documented in [...] | [employer]OVATION | | 04/17/2015 12:31 PMMRN: [id number] #: [id number] of : | | | 1975Admit Type: AmbulatoryAge: 39Room: [facility] 01Gender: FemaleNote | | | Status: FinalizedAttending MD: Keaton Wakefield, [facility] SYSTEMrocedure: | | | Upper GI endoscopyIndications: Suspected [...] physician, the nurse, the anesthesiologist and the a and p technician | | | in the procedure [...] Addenda: 0Note Initiated On: 04/17/2015 12:31 PM [facility]. | | | [facility], [address] [place] [address] | | | [phone] | | | - The retroflexed view [...] On: 04/17/2015 12:31 PM | | | [facility], [address] [facility], [place], [place] | | | [address] | | + + -+ + +---------+ + + | Performing | Address | City/State/[facility] Centercode | Phone Number | | Organization [...] [address] | [place] | [phone] | | [facility] | | [address] | | | - LABORATORY | | [...] [address] | [place] | [phone] | | [facility] | | [address] | | | - LABORATORY | | [...] [address] | [place] | [phone] | | [facility] | | [address] | | | - LABORATORY | | [...] | 1.010, 1.015, | | | | [place], | | 1.020, 1.025 | | | | POC | | | | | + + + + + + | Internal QC | Acceptable | | | | + + + + + + | Lot Number | [id number] | | | | + + + [...] A DUODENAL BIOPSY SPECIMEN SOURCE: A. DUODENAL [facility] | | BIOPSY CLINICAL HISTORY: R11.2 [...] | | peptic duodenitis or other abnormality. BES:[facility]:C3NR GROSS | | | DESCRIPTION: Received in formalin labeled "Tiny Campuzano" and | | | "duodenal biopsy" on the requisition are multiple pink-santa tissue | | | fragments measuring from <0.1-0.4 cm, all in (A1). ka:RosVR:[facility] | | | PERFORMING LABORATORY: Tissue processing and slide preparation were | | | performed by [employer], [facility], [address] | | | [place] [address] (Paper Goods Machine Operator: Reilly Thomas M.D. CLIA#: | | | [id number]). Professional interpretation was performed by [employer] | | | [employer], [facility] [address] [facility], [address], [place] [address] | | | (Paper Goods Machine Operator: Reilly Thomas M.D.; CLIA#: [id number]). | | | Diagnostician: Daniel Briscoe MD [...]
--- OUTSIDE RECORDS SUMMARY | ~2019-11-12 | XMS | Encounter Summary ---
Demographics + + + | Address | [address] | | | [place] [address] | + + + | Home Phone | | + + + | Preferred Language | Unknown | + + + | Marital Status | Single | + + + | Samaritan Affiliation | 1041 | + + + [...] Team Providers + +------+ + | Care Tuft Machine Operator Name | Role | Phone [...] 2014 | | GASTROENTEROLOGY | [address], [place] | | | | | [address] [place] | [address] [place], [place] | | | | | [address] [place], [place] | [address] | | | | | [address] | | | | | | [phone] | | | +--------+ + + + [...]
--- OUTSIDE RECORDS SUMMARY | ~2019-11-12 | XMS | Encounter Summary ---
Demographics + + + | Address | [address] | | | [place] [address] | + + + | Home Phone [...] Team Providers + +------+ + | Care Seismograph Operator Helper Name | Role | Phone | [...] unspecified | [address], | | | | | Nausea with | [address], [place] | [address] | | | | | vomiting, | [address] [place] | [place], | | | | | unspecified | [place], [place] | [place] [address] | | | | | Opioid | [address] | Phone: | | | | | dependence, | Phone: | [phone] | | | | | uncomplicate | [phone] | Fax: | | | | | d (HCC) | Fax: | [phone] | | | | | Pneumonitis | [phone] | | | | | | due to | | | | | | | inhalation | | | | | | | of food and | | | | | | | vomit (HCC) | | | | | | | Procedures | | | | | | | FL | | | | | | | ESOPHAGOGAST | | | | | | | RODUODENOSCO | | | | | | | PY TRANSORAL | | | | | | | DIAGNOSTIC | | | | | | | FL EDG | | | | | | | TRANSORAL | | | | | | | BIOPSY | | | | | | | SINGLE/MULTI | | | | | | | PLE FL | | | | | | | [...] | | ogy | Abdominal | Julita Duval, | Gastroenterol | | | | | pain, | PA-C 2230 | ogy [address] | | | | | nausea, | [address] | [address] | | | | | vomiting | [place] | [address] [place] | | | | | Procedures | [address] | [place], [place] | | | | | 03/12>PEND | [place], | [address] | | | | | AUTH | [place] | Phone: | | | | | Office visit | [address] | [phone] | | | | | | Phone: | Fax: | | | | | | [phone] | [phone] | | | | | | Fax: | | | | | | | [phone] | | +--------+--------+ + + + + Encounter Details +--------+---------+ + + + | Date | Type | Department | Care Team | Description | +--------+---------+ + + + | 04/05/ | Office | [facility] [place] | Keaton Wakefield MD | Dysphagia, | | 2016 | Visit | GASTROENTEROLOGY | [address], [place] | unspecified | | | | [address] | [address] [place] | dysphagia; Opioid | | | | [address] [place], [place] | [address] | type dependence, | | | | [address] | | continuous (HCC); | | | | [phone] | | Nausea and vomiting, | | [...] and well-nourished. No distress. Morbid obesity B [place] 49.4 HENT: Head: Normocephalic and atraumatic. Right [...] normal. Nursing note and vitals reviewed. 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 documented in this enc ounter Miscellaneous Notes Addendum Note - Arabella Mena [...] Nausea and | Expected: 04/17/2015 | | [id number] | Referral | e | vomiting Morbid [...]
--- OUTSIDE RECORDS SUMMARY | ~2019-11-12 | XMS | Encounter Summary ---
Demographics + + + | Address | [address] | | | [place] [address] | + + + | Home Phone [...] Team Providers + +------+ + | Care Business Applications Specialist Name | Role | Phone | [...] + + | 10/23/ | Telephone | [facility] | Jose Riojas MD | Insurance | | 2019 | | OTOLARYNGOLOGY | [address] | Authorization | | | | SERVICES [address] | [address] [place] | (surgery ) | | | | [address] [facility] | [address] | | | | | [place] [address] | | | | | | [phone] | | | +--------+ + + + [...] Miscellaneous Notes Telephone Encounter - Cindy Doran, Supervisor Continuous [employer] - 11/11/2019 11:50 AM PDTPatien t has been scheduled for surgery 11/29/19. elephone Encounter - Cindy Doran Medical Neil tant - 11/10/2019 3:41 PM PDTTalked to patient to let her know that we have not received au th from [facility]. Did let her know that she is not scheduled for surgery. Also let her kno w our email specialist is giving them a call to see what is going on. Once I know more I will give you a call. Electronically signed by Cindy Doran Supervisor Continuous [employer] at 0 3:45 PM PDTTelephone Encounter - Pau Mosqueda - 11/07/2019 1:55 PM PDTPatient called back to speak with Cindy. Updated number was given. Please advise and call patient back at [phone] signed by Pau Mosqueda at 11/07/2019 1:56 PM PDTTelephone [place] unter - Cindy Doran Supervisor [employer] - 10/25/2019 12:53 PM PDTI tried calling pat nt 2 times but it keeps saying that its a none working number. We don't have auth yet. Elec tronically signed by Cindy Doran Supervisor Continuous [employer] at 10/25/2019 12:53 PM PDTTelephon e Encounter - Pau Mosqueda - 10/24/2019 9:07 AM PDTPatient called to speak with Cindy i n regards to "whether or not they have received approvalfor her to have surgery. She knows t hat Bellachel sent it over, had her other insurance approved it?". Please advise and call clayton vazquez back at [phone] signed by Pau Mosqueda at 10/24/2019 9:08 AM PD Tdocumented in this encounter Plan of Treatment Not on filedocumented as of this encounter Visit Diagnoses Not on filedocumented in this encounter
--- OUTSIDE RECORDS SUMMARY | ~2019-11-12 | XMS | Encounter Summary ---
Demographics + + + | Address | [address] | | | [place] [address] | + + + | Home Phone [...] Team Providers + +------+ + | Care Exhibition Designer Name | Role | Phone | + [...] | Services | Diagnostic | Alcoholic | [facility], | [facility] | | | Required | Ultrasound | cirrhosis [facility] | [facility] | | | | | liver | HIGH SCHOOL COMBINATION TEACHER [address] | [address] | | | | | without | [address] | CONF[place]ERATED | | | | | ascites | [address] | WAY | | | | | (HCC) | [place] [address], | [place], [place] | | | | | Anemia, | [place] [address] | [address] | | | | | unspecified | Phone: | Phone: | | | | | type | [phone] | [phone] | | | | | Hypokalemia | Fax: | Fax: | | | | | | [phone] | [phone] | | | | | Thrombocytop | [...] Orders Only | [facility] [place] | [facility], | Alcoholic cirrhosis | | 2019 | | GASTROENTEROLOGY | FRANK Oconnor [address] | of liver without | | | | [address] | [address] | ascites (HCC) | | | | [address] [place], [place] | [place] [facility] [place] | (Primary Dx); | | | | [address] | [address] | Anemia, unspecified | | | | [phone] | | type; Hypokalemia; | | | [...]
--- OUTSIDE RECORDS SUMMARY | ~2019-11-12 | XMS | Encounter Summary ---
Demographics + + + | Address | [address] | | | [place] [address] | + + + | Home Phone [...] Team Providers + +------+ + | Care Vehicle Insurance Agent Name | Role | Phone | + +------+ + | Julita Cabral PA-C | PCP | | + +------+ + Encounter Details +--------+ + + + + | Date | Type | Department | Care Team | Description | +--------+ + + + + | 03/01/ | Abstract | [facility] | Provider, | | | 2017 | | GASTROENTEROLOGY | MD Evelyn [address] | | | | | [address] [facility] | Katie Moore | | | | | [address] [place] | [place] [address] | | | | | [address] | | | | | | [phone] | | | +--------+ + + + [...]
--- OUTSIDE RECORDS SUMMARY | ~2019-11-12 | XMS | Encounter Summary ---
Demographics + + + | Address | [address] | | | [place] [address] | + + + | Home Phone [...] Team Providers + +------+ + | Care Chief Cook Name | Role | Phone | + [...] (cirrhosis | PA-C [address] | [address], | | | | | of liver) | [address] | [address] | | | | | (HCC) | Ari | [address], | | | | | Procedures | [address] | [place] [address] | | | | | office visit | [place], | Phone: | | | | | | [place] | [phone] | | | | | | [address] | Fax: | | | | | | Phone: | [phone] | | | | | | [phone] | | | | | | | Fax: | | | | | | | [phone] | | +--------+--------+ + + + + Encounter Details +--------+---------+ + + + | Date | Type | Department | Care Team | Description | +--------+---------+ + + + | 07/07/ | Office | [facility] | [facility], | Alcoholic cirrhosis | | 2019 | Visit | GASTROENTEROLOGY | FRANK Oconnor [address] | of liver without | | | | [address] | [address] | ascites (HCC) | | | | [address] [place], [place] | [place], [place] | (Primary Dx); | | | | [address] | [address] | Anemia, unspecified | | | | [phone] | | type; Hypokalemia; | | | [...] transpl antation evaluation. Urine test done at [facility] every other week. Labs to be [...] was initially seen in the ED in [facility] for abdominal pain and swelling 2017. She went home and was readmitted to the hospital 03/2018. She was then hospitalized in [place]. She was was hospitalized for 22 days. She was then readmitted to the hospital here at [facility] 04/23/2018. She was admitted from 04/23 -05/06/2018. [...] Procedure: EGD; Surgeon: Keaton Wakefield MD; Location: [facility] Family History [...] call once she has been evaluated by energy control officer. Will need to schedule EGD and colonoscopy [...] AFP every 6 months. 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
--- OUTSIDE RECORDS SUMMARY | ~2019-11-12 | XMS | Encounter Summary ---
Demographics + + + | Address | [address] | | | [place] [address] | + + + | Home Phone [...] Team Providers + +------+ + | Care Roof Designer Name | Role | Phone | [...] | Hypertrophy of | | | | [place], [place] | [address] | nasal turbinates; | | | | [address] | | Neoplasm of | | | | [phone] | | uncertain behavior | | | [...]
--- OUTSIDE RECORDS SUMMARY | ~2019-11-12 | XMS | Encounter Summary ---
Demographics + + + | Address | [address] | | | [place] [address] | + + + | Home Phone [...] Providers + +------+ + | Care Assembler Flexible Leads Name | Role | Phone | + [...] + + | 01/25/ | Telephone | [facility] | Cindy Doran | Procedure (surgery | | 2018 | | OTOLARYNGOLOGY [address] | M, Auger Machine Offbearer | date ) | | | | [address] [facility] 210 | | | | | | [place] | | | | | | [address] | | | | | | [phone] | | | +--------+ + + + [...] Miscellaneous Notes Telephone Encounter - Cindy Doran, Auger Machine Offbearer - 01/25/2019 10:20 AM PSTCalled and spoke [...]
--- OUTSIDE RECORDS SUMMARY | ~2019-11-12 | XMS | Encounter Summary ---
Demographics + + + | Address | [address] | | | [place] [address] | + + + | Home Phone [...] Team Providers + +------+ + | Care Grease And Tallow Pumper Name | Role | Phone | + [...] + + | 01/05/ | Telephone | [facility] | [facility] | LABS | | 2018 | | GASTROENTEROLOGY | FRANK O[address] | | | | | [address] | [address] | | | | | [address] [place] | [place] | | | | | [address] | [id number] | | | | | [phone] | | | +--------+ + + + [...] Chappell - 01/05/2019 8:20 AM PDTDawn from [facility], they had not received a fax of lab orders from [facility]. I went ahead and printed out the ord ers from [facility] and faxed them to [phone].Electronically signed by Iveth Chappell at 8:22 AM PDTdocumented in this encounter Plan of Treatment Not on filedocumented as of this encounter Visit Diagnoses Not on filedocumented in this encounter"
--- OUTSIDE RECORDS SUMMARY | ~2019-11-12 | XMS | Encounter Summary ---
Demographics + + + | Address | [address] | | | [place] [address] | + + + | Home Phone [...] Team Providers + +------+ + | Care Plant Worker Name | Role | Phone | + +------+ + | Julita Cabral PA-C | PCP | | + +------+ + Encounter Details +--------+ + + + + | Date | Type | Department | Care Team | Description | +--------+ + + + + | 07/08/ | Orders Only | [facility] [place] | [facility], | Alcoholic cirrhosis | | 2019 | | GASTROENTEROLOGY | FRANK Oconnor [address] | of liver without | | | | [address] | [address] | ascites (HCC) | | | | [address] [place] | [place] | (Primary Dx) | | | | [address] | [address] | | | | | [phone] | | | +--------+ + + + [...]
--- OUTSIDE RECORDS SUMMARY | ~2019-11-12 | XMS | Encounter Summary ---
Demographics + + + | Address | [address] | | | [place] [address] | + + + | Home Phone [...] Team Providers + +------+ + | Care Cabbage Salter Name | Role | Phone | + [...] | vomiting, | | [address] [place], | | | | | vomiting of | | [address] | | | | | unspecified | | [place], | | | | | type | | [place] [address] | | | | | Aspiration | | Phone: | | | | | pneumonia | | [phone] | | | | | due to | | Fax: | | | | | gastric | | [phone] | | | | | secretions | [...] + | 04/17/ | Anesthesia | [facility] | Robert Gan, | | | 2015 | Event | [facility] OP | MD [address] | | | | | [address] | [place] | | | | | [place] | [address] | | | | | [address] | | | | | | [phone] | | | +--------+ + + + [...] | [facility] | 2 | | [...] + + | Periph | 04/17/15; 1105; [id number] | 04/17/15 1105 by | 04/17/15 1400 [...] EVALUATION Tiny Campuzano 39 y.o. female 1975 [id number] Procedure(s) EGD (N/A Mouth) Filed Vitals: 04/17/15 [...] signed by Robert Gan MD 04/17/2015 12:[facility] Preproced[facility] Evaluation - Robert Gan MD - 04/16/2015 3:24 PM PSTFormatting of this note might b e different from the original. ANESTHESIA PREANESTHESIA EVALUATION Tiny Campuzano 39 y.o. female 1975 [id number] Procedure(s): EGD (N/A Mouth) Medical history, anesthesia, [...]
--- OUTSIDE RECORDS SUMMARY | ~2019-11-12 | XMS | Encounter Summary ---
Demographics + + + | Address | [address] | | | [place] [address] | + + + | Home Phone [...] Providers + +------+ + | Care Nurse'S Assistant Name | Role | Phone | [...] + + | 07/21/ | Telephone | [facility] | Jose Riojas MD | Procedure (surgery | | 2018 | | OTOLARYNGOLOGY [address] | [address] [facility] | ) | | | | [address] [facility] [address] | [address] [place] [address] | | | | | [place] | [address] | | | | | [address] | | | | | | [phone] | | | +--------+ + + + [...] Miscellaneous Notes Telephone Encounter - Cindy Doran, Order Selector - 08/03/2018 2:49 PM PDTCalled and spoke to patient to get her scheduled for surgery. Patient has been scheduled for surge ry ThursdaySeptember 07. Post op has been made and information has been sent.Electronically sig brett by Cindy Doran, Order Selector at 08/03/2018 2:50 PM PDTTelephone Encounter - Iveth Chappell - 07/30/2018 1:53 PM PDTPatient called in checking on the status of sched uling, advised her of Cindy's note, best number [phone] she thinks vm is set up. She s aid she didn't have minutes for a week so that may be why you couldn't reach her. Electronic ally signed by Iveth Chappell at 07/30/2018 1:54 PM PDTTelephone Encounter - Jorden Doran, Order Selector - 07/21/2018 2:07 PM PDTI tried calling patient to get her schedu led for surgery but there was no answer the 2 times I tried calling and you can't leave a me ssage. documented in this encounter Plan of Treatment Not on filedocumented as of this encounter Visit Diagnoses Not on filedocumented in this encounter"
--- OUTSIDE RECORDS SUMMARY | ~2019-11-12 | XMS | Encounter Summary ---
Demographics + + + | Address | [address] | | | [place] [address] | + + + | Home Phone [...] Team Providers + +------+ + | Care Welder Operator Name | Role | Phone | [...] + + | 03/01/ | Telephone | [facility] | [facility], | Insurance | | 2017 | | GASTROENTEROLOGY | FRANK Oconnor [address] | Authorization | | | | [address] | | | | | [address] [place], [place] | [place] [facility] [place] | | | | | [address] | [address] | | | | | [phone] | | | +--------+ + + + [...]
--- OUTSIDE RECORDS SUMMARY | ~2019-11-12 | XMS | Encounter Summary ---
Demographics + + + | Address | [address] | | | [place] [address] | + + + | Home Phone [...] Team Providers + +------+ + | Care Rib Puller Name | Role | Phone | + [...] | | | [address] | [place] [address] | | | | | [place], [place] | [phone] | | | | | [address] | | | | | | [phone] | | | +--------+ + + + [...] m/s Septal | | | E/e': 11.88 Nib Finisher: EMMANUEL Authenticated by: Keith | | | [...] | 6.08 cmLVPWd: 0.96 cmLVOT Area: 4.23 gg8JOIV Diam: 2.32 cm%FS: 29.55 %EF(Teich): | | 55.63 %ESV(Teich): 82.55 mlLVIDs: 4.28 cmSV(Teich): 103.53 mlRV Major: 7.81 | | cmRVIDd: 3.22 cmLAAs A4C: 19.17 mp2IXVFF A-L A4C: 58.05 mlLALs A4C: 5.37 cmRAAs: | | 9.50 mt3UBOQE A-L: 20.91 mlRAESV MOD: 20.37 mlRALs: 3.66 cmAo Diam: 3.43 | | cmAo/LA: 0.63LA Diam: 5.42 cmLA/Ao: 1.57MV A Finn: 1.26 m/sMV DecT: 223.78 msMV | | E Finn: 1.08 m/sMV E/A Ratio: 0.85MV PHT: 64.89 msMVA By PHT: 3.38 cx9Ajiney e': | | 0.09 m/sSeptal E/e': 11.88 Nib Finisher: Jazmínticated by: Rochelle Parker | | MDReport [...] | |Septal E/e': 11.88 | | | |Nib Finisher: EMMANUEL | |Authenticated by: Rochelle Parker MD [...]
--- OUTSIDE RECORDS SUMMARY | ~2019-11-12 | XMS | Clinical Summary ---
Demographics + + + | Address | [address] | | | [place] [address] | + + + | Home Phone | | + + + | Preferred Language | Unknown | + + + | Marital Status | Single | + + + | Shinto Affiliation | 1041 | + + + [...] Providers + +------+ + | Care Welder Tool And Die Name | Role | Phone | + [...] | | | AM | +---+ + Active Problems + + + | Problem [...] +---------+--------+ | [place] | MEDICA | [id number] | 04/16/19 | [phone] | | Medica | | | [place] | | 19-Pre | 2 | | id | | | PLUS | | sent | | | | + +--------+ +--------+ +---------+--------+ | [employer] | IHS | [phone] | | | | Indemn | | SERVICE | YELLOW | | 976-Pr | | | ity | | | HAWK | | esent | | | | + +--------+ +--------+ +---------+--------+ | [employer] [place] | MEDICA | [id number] | | [phone] | | Medica | | | [place] | | 019-Pr | 2 | | id | | | PLUS | | esent | | | | + +--------+ +--------+ +---------+--------+ | [employer] | IHS | [phone] | 03/16/19 | | | Indemn | [...] | Self | [birth year] | [address] | | | al/Fam | | 1975 | [phone] | [place], [place] | | | [place] | | | 9 (Home) | [address] | + +--------+ +--------+ + + | Tiny Campuzano | Person | Self | [birth year] | [address] | | | al/Fam | | 1975 | [phone] | [place], [place] | | | [place] | | | 9 (Home) | [address] | + +--------+ +--------+ + + | Tiny Campuzano | Person | Self | [birth year] | [address] | | | al/Fam | | 1975 | [phone] | [place], [place] | | | [place] | | | 1 (Home) | [address] | + +--------+ +--------+ + + Advance Directives + + + + + | Type | Date Recorded | Patient | Explanation | | | | Passenger Barge Master | | + + + + + | Power of | | | | | Pediatric Occupational Therapist | | | | + + + [...]
[~2019-11-12 18:39] MED LIST changes: +BUMETANIDE0.5 MG PO; +LEVAQUIN750 MG PO
== END 2019-11-12 21:43 | disposition home or self-care (01) ==
LOC: ED 18:39
DX: M79.604 Pain in right leg (principal); E11.9 Type 2 diabetes mellitus without complications; J44.9 Chronic obstructive pulmonary disease, unspecified; I10 Essential (primary) hypertension; E78.5 Hyperlipidemia, unspecified; Z79.899 Other long term (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
CPT/HCPCS: 80053; 81001; 85025; 93971; 99284-25

== ENCOUNTER 2019-12-07 17:32 | Emergency (ER) | payer OTHER ==
[~2019-12-07] VITALS: Ht 175.3 cm; Wt 117.9 kg
--- OUTSIDE RECORDS SUMMARY | ~2019-12-07 | XMS | Encounter Summary ---
Demographics + + + | Address | [address] | | | [place] [address] | + + + | Home Phone | | + + + | Preferred Language | Unknown | + + + | Marital Status | Single | + + + | Muslim Affiliation | 1041 | + + + | Race | or | + + + | Ethnic Group | Not or | + + + Author + + + | Author | [facility] | | | and [place] | + + + | Organization | [facility] | | | [...] Team Providers + +------+ + | Care Human Services Case Manager Name | Role | Phone | + +------+ + | Julita Cabral PA-C | PCP | | + +------+ + Encounter Details +--------+ + + + + | Date | Type | Department | Care Team | Description | +--------+ + + + + | 09/01/ | Orders Only | [facility] [place] | Jose Riojas MD | Obstructive sleep | | 2019 | | OTOLARYNGOLOGY [address] | [address] | apnea (Primary Dx); | | | | [address] | [address] [place], [place] | Deviated nasal | | | | [place], [place] | [address] | septum; Hypertrophy | | | | [address] | | of nasal turbinates; | | | | [phone] | | Neoplasm of | | | | | | uncertain behavior | | | | | | of skin | +--------+ + + + + Social [...] as of this encounter Plan of Treatment +--------+---------+ + + + | Date | Type | Specialty | Care Team | Description | +--------+---------+ + + + | 12/14/ | Office | Otolaryngology | Jose Riojas MD | | | 2020 | Visit | | [address] | | | | | | [address] [place] | | | | | | [address] | | | | | | | | +--------+---------+ + + + + +------+--------+ + + | Name | Type | Priori | Associated Diagnoses | Order Schedule | | | | ty | | | + +------+--------+ + + | Glucose, Random | Lab | Routin | Deviated nasal | 1 Occurrences | | | | e | septum Hypertrophy | starting 09/01/2018 | | | | | of nasal turbinates | until 09/02/2019 | | | | | Neoplasm of | | | | | | uncertain behavior | | | | | | of skin Obstructive | | | | | | sleep apnea | | + +------+--------+ + + documented as of this encounter Visit Diagnoses + + | Diagnosis | + + | Obstructive sleep apnea - Primary Obstructive sleep apnea (adult) (pediatric) | + + | Deviated nasal septum | + + | Hypertrophy of nasal turbinates | + + | Neoplasm of uncertain behavior of skin | + + documented in this encounter"
--- OUTSIDE RECORDS SUMMARY | ~2019-12-07 | XMS | Encounter Summary ---
Demographics + + + | Address | [address] | | | [place] [address] | + + + | Home Phone | | + + + | Preferred Language | Unknown | + + + | Marital Status | Single | + + + | Jewish Affiliation | 1041 | + + + | Race | or | + + + | Ethnic Group | Not or | + + + Author + + + | Author | [facility] | | | and [place] | + + + | Organization | [facility] | | [...] Team Providers + +------+ + | Care Tech Brazer Tester Name | Role | Phone | + +------+ + | Hiren Wade MD | PCP | | + +------+ + Reason for Visit Auth/Cert +--------+--------+ + + + + | Status | Reason | Specialty | Diagnoses / | Referred By | Referred To | | | | | Procedures | Contact | Contact | +--------+--------+ + + + + | | | | Diagnoses | | Jose Riojas | | | | | Obstructive | | E, MD [address] | | | | | sleep apnea | | [address] | | | | | (adult) | | [place] [address] [place] | | | | | (pediatric) | | [place] | | | | | Neoplasm of | | [address] Phone: | | | | | uncertain | | [phone] | | | | | behavior of | | Fax: | | | | | skin | | [phone] | | | | | Procedures | | | | | | | [place] EXCISION | | | | | | | TURBINATE,BECERRIL | | | | | | | BMUCOUS [place] | | | | | | | REPAIR OF | | | | | | | NASAL SEPTUM | | | | | | | [place] EXC | | | | | | | SKIN BENIG | | | | | | | <5MM | | | | | | | FACE,FACIAL | | | | | | | SEPTOPLASTY | | | | | | | W/ OR W/O | | | | | | | TURBINATES. | | | | | | | cyst in the | | | | | | | middle part | | | | | | | of the | | | | | | | right upper | | | | | | | eyelid | | | | | | | removal. | | | +--------+--------+ + + + + Encounter Details +--------+ + + + + | Date | Type | Department | Care Team | Description | +--------+ + + + + | 11/28/ | Hospital | [facility] | Jose Riojas MD | Deviated nasal | | 2020 | Encounter | MED CTR OR [facility]TRA OP | [address] [place] | septum; Hypertrophy | | | | [address] | [address] [place], [place] | of nasal turbinates; | | | | [place], [place] | [address] | Neoplasm of | | | | [address] | | uncertain behavior | | | | [phone] | | of skin | +--------+ + [...] | + + +---------+ + | Not Currently | 0 Standard drinks | 0.0 | [...] + + + | Blood Pressure | 137/68 | 11/29/2019 11:00 AM | | | | | PDT | | + + + + + | Pulse | 87 | 11/29/2019 11:00 AM | | | | | PDT | | + + + + + | Temperature | 37.1 C (98.8 F) | 11/29/2019 9:04 AM | | | | | PDT | | + + + + + | Respiratory Rate | 19 | 11/29/2019 9:36 AM | | | | | PDT | | + + + + + | Oxygen Saturation | 99% | 11/29/2019 11:00 AM | | | | | PDT | | + + + + + | Inhaled Oxygen | - | - | | | Concentration | | | | + + + + + | Weight | 127.5 kg (281 lb 1.4 | 11/29/2019 6:58 AM | | | | oz) | PDT | | + + + + + | Height | 175.3 cm (5' 9") | 11/29/2019 6:58 AM | | | | | PDT | | + + + + + | Body Mass Index | 41.51 | 11/29/2019 6:58 AM | | | | | PDT | | + + + + + documented in this encounter Discharge Instructions Instructions Damaris Berry RN - 11/29/2019Neo-synephrine to nose as needed for bleeding. I ce to right eye area as tolerated for 24 hours. Recovery After Procedural Sedation You have been given medicine by vein to make you sleep during your surgery. This may have i ncluded both a pain medicine and sleeping medicine. Most of the effects have worn off. But y ou may still have some drowsiness for the next 6 to 8 hours. Home care Follow these guidelines when you get home: For the next 8 hours, you should be watched by a responsible adult. This person should m dom sure your condition is not getting worse. Don't drink any alcoholfor the next [address], operate dangerous machinery, or make important business or personal decisio nsduring the next 24 hours. Note: Your healthcare provider may tell you not to take any medicine by mouth for pain or s leep in the next 4 hours. These medicines may react with the medicines you were given in the hospital. This could cause a much stronger response than usual. Follow-up care Follow up with your healthcare provider if you are not alert and back to your usual level o f activity within 12 hours. When to seek medical advice Call your healthcare provider right away if any of these occur: Drowsiness gets worse Weakness or dizziness gets worse Repeated vomiting You can't be awakened Date Last Reviewed: 01/01/201619994138-3382 [employer]. [address] [place] [address]. All righ ts reserved. This information is not intended as a substitute for professional medical care. Always follow your healthcare professional's instructions. documented in this encounter Medications at Time of [...] + + + +---------+ + + | cetirizine | Take 10 mg by mouth | | 0 | | | | (ZYRTEC) 10 mg | Daily as needed. | | | | | | tablet [...] + +---------+ + + | | Take 1-2 tablets by | 12 | 0 | // | | | HYDROcodone-acetamin | mouth every 4 hours | tablet | | 20 | | | ophen (NORCO) 5-325 | as needed for Pain. | | | | | | mg per tablet | | | | | | [...] + | lactulose 10 g/15 | Take 30 mLs by mouth | 1892 mL | 2 | 07/08/19 | | | mL solution | 3 times daily. | | | 19 | | + + [...] + + + +---------+ + + | Polyethylene | Take by mouth Daily | | 0 | | | | Glycol powder | as needed . | | | | | + + + +---------+ + + | pseudoePHEDrine | Take 30 mg by mouth | | 0 | | | | (SUDAFED) 30 mg | every 4 hours as | | | | | | tablet | needed for | | | | | | | Congestion. | | | | | + + + +---------+ + + | spironolactone | Take 50 mg by mouth | | 0 | | | | (ALDACTONE) 25 mg | Daily. | | | | | | tablet | | | | | | + + + +---------+ + + documented as of this encounter H&P Jose Salazar MD - 11/29/2019 7:45 AM PDT SURGICAL INTERIM HISTORY AND PHYSICAL UPDATE Pt. Name/Age/: Kamilah Maria Isabel Gonzálesleticia 44 y.o. 1975 Date of admission: 11/29/2019 The current H&P was reviewed. The patient was reexamined. Re-evaluation of the patient co nfirms the necessity for the scheduled procedure. No change has occurred in the patient s condition since the H&P was completed less than 30 days ago. Lungs clear. Heart NSR withou t murmer. No URI. Electronically signed by: Jose Riojas MD, 11/29/2019 7:53 AM PDT [facility] Electronically signed by Jose Riojas MD at 11/28 7:53 AM PDTSaint [facility] CenterJose MD - 11/28/2019 9:54 AM PDTFormatting of this note might b e different from the original. Jose Riojas MD Physician Specialty: Otolaryngology H&P Signed OTOLARYNGOLOGY HISTORY AND PHYSICAL EXAMINATION CHIEF COMPLAINT: No chief complaint on file. HISTORY OF PRESENT ILLNESS: Patient comes in because she continues to have chronic problems breathing through her nose. She recently felt that with her allergies aggravating she could hardly breathe through her nose for the last 2 months. She has a deviation of her septum and large inferior turbinate s and in the past has been scared to move forward with surgery. She feels that the problem is so aggravating that she would again like to move forward with surgery to open up her nasa l passages so that she could breathe properly. She is not having any purulent drainage. He is having no problems with her vocal function or swallowing. No other ENT complaints. Old chart reviewed and no change in medications, allergies or review of systems. 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 Alcohol abuse Alcoholic cirrhosis (HCC) Alcoholic gastritis Allergic rhinitis Anxiety disorder Asthma Benign essential hypertension Cannabis dependence (HCC) Chronic abdominal pain Chronic depression Chronic obstructive lung disease (HCC) Cirrhosis of liver (HCC) Constipation Continuous chronic alcoholism (HCC) Depression Diabetes mellitus type 2 in obese (HCC) Diabetes mellitus, type 2 (HCC) Diabetic gastroparesis (HCC) Dysfunction of Eustachian tube, bilateral Dysfunctional uterine bleeding Dyspnea Edema Essential hypertension External hemorrhoids Frequent UTI GERD (gastroesophageal reflux disease) Heart murmur Hyperlipidemia Hyperlipidemia Insomnia Iron deficiency anemia Moderate persistent asthma Morbid obesity (HCC) Nausea & vomiting Obesity Pneumonia Pneumonia Polycystic ovaries Polysubstance abuse (HCC) Polysubstance abuse (HCC) Pseudopolyposis of colon (HCC) Pustular folliculitis Pyelonephritis bilateral Reactive airway disease Sepsis (HCC) Vitamin D deficiency Vitamin D deficiency PAST SURGICAL HISTORY: Past Surgical History: Procedure Laterality Date APPENDECTOMY 03/02/2015 Biopsy of uterus lining 12-27-09 COLONOSCOPY 08-16-14 Postoperative diagnoses: irritated internal and external hemorrhoids. COLONOSCOPY with lesion removel 10/30/10 Incision and drainage of Vulva or perineal abcess 06-15-13 repair/graft femur head/neck 01-06-13 TONSILLECTOMY AND ADENOIDECTOMY 10-08-89 UPPER GASTROINTESTINAL ENDOSCOPY N/A 04/17/2015 Procedure: EGD; Surgeon: Hiren Wakefield MD; Location: [facility] MED[facility] PROC[facility] SOCIAL HISTORY: The patient reports that she has never smoked. She has never used smokeless tobacco. She r eports current drug use. Drugs: and Marijuana. She reports that she does not drink alcohol. FAMILY HISTORY: Family History Family history unknown: Yes CURRENT MEDICATIONS: Current Outpatient Medications Medication Sig Dispense Refill acetaminophen (TYLENOL) 325 mg tablet Take 325-650 mg by mouth Every 8 hours as needed. albuterol 2.5 mg/3 mL nebulizer solution Take 2.5 mg by nebulization every 6 hours as n eeded for Shortness of Breath. albuterol 90 mcg/puff inhaler Inhale 1-2 puffs into the lungs every 3 hours as needed f or Shortness of Breath. ascorbic acid (VITAMIN C) 500 mg tablet Take 500 mg by mouth Daily. With Iron bumetanide (BUMEX) 1 mg tablet Take 1 tablet by mouth 2 times daily. 60 tablet 1 cetirizine (ZYRTEC) 10 mg tablet Take 10 mg by mouth Daily as needed. ferrous sulfate 325 mg tablet Take 325 mg by mouth daily (with breakfast). With Vitamin C fluticasone (FLONASE) 50 mcg/nasal spray 2 sprays by Nasal route Daily. hydrOXYzine pamoate (VISTARIL) 25 mg capsule Take 25 mg by mouth every 6 hours as neede d for Anxiety. lactulose 10 g/15 mL solution Take 30 mLs by mouth 3 times daily. (Patient not taking: Reported on 10/05/2019.) 1892 mL 2 lidocaine (LIDODERM) 5% patch Place 1 patch onto the skin Daily. Apply for 12 hours, th en remove for 12 hours. magnesium oxide (MAG-OX) 400 mg tablet Take 400 mg by mouth 2 times daily. metoclopramide (REGLAN) 10 mg tablet Take 10 mg by mouth 4 times daily as needed for Na usea or Vomiting. mometasone-formoterol (DULERA) 200-5 mcg/puff inhaler Inhale 2 puffs into the lungs 2 t imes daily. ondansetron (ZOFRAN) 4 mg tablet Take 4 mg by mouth every 6 hours as needed for Nausea or Vomiting. pantoprazole (PROTONIX) 40 mg tablet Take 40 mg by mouth every morning (before breakfas t). Polyethylene Glycol powder Take by mouth once. potassium chloride (KLOR-CON M20) 20 mEq ER tablet Take 2 tablets by mouth Daily. (Rosa ent not taking: Reported on 10/05/2019.) 60 tablet 1 spironolactone (ALDACTONE) 25 mg tablet Take 50 mg by mouth Daily. No current facility-administered medications for this visit. ALLERGIES: No Known Allergies REVIEW OF SYSTEMS: GENERALLY: No fever, no night sweats, no anemia, no fatigue, no recent profound weight ch anges. EYES: No eye problems, no use of corrective lenses, no eye injury, no double vision, no bl indness. EARS, NOSE, AND THROAT: No changes in taste or smell, no hearing difficulty, no ringing in the ears, no ear drainage, no dizziness, no voice changes, no difficulty swallowing, no sig nificant snoring, no sleep apnea, no sinus problems, no major dental work. CARDIOVASCULAR: No heart attacks, no heart murmur, no heart fluttering, no chest pain, no ankle swelling. LUNG DISEASE: No shortness of breath, no cough, no tuberculosis, no bloody cough, no asth ma, no emphysema/COPD. PHYSICAL EXAMINATION: Temp 36.9 C (98.5 F) (Temporal) | Ht 1.74 m (5' 8.5") | Wt 108.9 kg (240 lb) | BMI 3 5.96 kg/m Patient is an alert 44-year-old female patient in no acute distress. Skin of the face nose and ears all appears to be smooth and healthy. Ear canals are open and clean and drums wer e clear. In the nasal passage she has the septal deviation that mainly bends towards the ri ght-hand side with very limited room on this side. She has very large inferior turbinates b ilaterally. No polyps were noted in either side of the nose and no purulent drainage. In t he oral cavity no mass or lesions are noted. No mass seen in the oropharynx and posterior p haryngeal wall is smooth. Tongue and soft palate are smooth to move symmetrically. Neck th ere is no mass or lymphadenopathy noted. Thyroid, parotid and submandibular glands were all smooth. She moves her neck well without any pain or discomfort noted. Patient has a lesio n on the right eyelid that since the last visit with ENT had drained it continues to be a si gnificant problem. ASSESSMENT: DIAGNOSES: 1. Deviated nasal septum 2. Hypertrophy of nasal turbinates 3. Neoplasm of uncertain behavior of skin 4. Obstructive sleep apnea PLAN: Patient will be scheduled for a septoplasty and bilateral inferior turbinoplasties. The pr ocedure was again described to the patient. When she comes to the hospital she becomes very anxious and will need to have some medication for relaxation prior to surgery. Patient sanford l be seen the following day to have her packing removed from her nose and understands that a t night after surgery she will have to mouth breathe for 24 hours. At the time of surgery s he will also have the cyst in the middle part of the right upper eyelid removed. ELECTRONICALLY SIGNED BY: Jose Riojas MD, 10/05/2019 documented in this enco unter Miscellaneous Notes Op Note - Jose Riojas MD - 11/29/2019 9:11 [address] [facility] [address] [address] OPERATIVE REPORT JOSE RIOJAS MD Patient: KAMILAH IBARRA Admitting: JOSE RIOJAS MR #: [id number] LOC: PT TYPE: Adm Date: 11/29/2019 : 1975 DATE OF SURGERY: 11/29/2019 PREOPERATIVE DIAGNOSES: 1. Nasal septal deformity with nasal obstruction. 2. Hypertrophic inferior turbinates. 3. Right upper eyelid lesion. POSTOPERATIVE DIAGNOSES: 1. Nasal septal deformity with nasal obstruction. 2. Hypertrophic inferior turbinates. 3. Right upper eyelid lesion. OPERATION PERFORMED: 1. Septoplasty. 2. Bilateral inferior turbinoplasties. 3. Excision of right upper eyelid lesion. SURGEON: Jose Riojas MD FINDINGS: The patient had a nasal septal deformity mainly towards the left hand side. She had very hypertrophic inferior turbinates bilaterally. The lesion on her upper eyelid was a vascular type of lesion. DESCRIPTION OF PROCEDURE: After the patient was placed under general anesthetic, the septu m and inferior turbinates and also the right eyelid lesion were injected with 1-percent Xylo jonah with epinephrine. The nose was prepped and draped in a sterile fashion. A left hemit ransfixional incision was made and the mucous membrane elevated off of the left hand side. An incision made through the septal cartilage, a little under a cm from the caudal end and then the mucous membrane was elevated off of the right hand side. The bent cartilage and pe rpendicular plate were then removed with a Hyacinth forceps. Once the membranes were back in the midline, the incision was closed with 4-0 chromic suture. A 4-0 fast-absorbing sutur e was put through the mucous membrane to bring them back together. Incisions were made in t he anterior tips of the inferior turbinates bilaterally. Arapahoe elevator was used to disse ct medially inside the turbinate. Following this, the Gyrus debrider was used to debride th e inside of the turbinate medially and inferiorly on both sides. Once completed, the inside of the turbinate was cauterized with the bipolar cautery tip on the debrider. The nasophar ynx was suctioned. NasoPore packs were placed on both sides. An incision was made in an el liptical fashion around the lesion on the right upper eyelid. This was then removed with a scissor as this was carried underneath the lesion. It was a fairly vascular lesion and the center of it was cauterized to obtain hemostasis. The wound was then closed with interrupt ed 6-0 nylon suture. The size of the lesion was at 4-5 mm wide. Once this was removed, nuzhat e gentle pressure was held over the wound until there was no evidence of any more swelling o r bleeding. The patient was then awakened from her anesthetic and returned to the recovery room in stable condition. PROGNOSIS: Immediate and remote is good. ESTIMATED BLOOD LOSS: 10 mL. JOSE RIOJAS MD Dictated by JOSE RIOJAS MD 11/29/2019 09:11:13 Transcribed on 11/29/2019 10:34:30 by vn job# [id number] Confirmation #: [id number] cc: HIREN WADE p Not e - Jose Riojas MD - 11/29/2019 9:06 AM PDTSee dictation #[id number] signed by Jose Riojas MD at 11/29/2019 9:11 AM PDTBrief Op Note - Jose Riojas MD - 11/29/2019 9:05 AM PDT BRIEF OPERATIVE NOTE [facility] Pt. Name/Age/: Kamilah Ibarra 44 y.o. 1975 Med. Record Number: [id number] Date of admission: 11/29/2019 Date of Operation/Procedure: 11/29/2019 Preoperative Diagnosis: * No pre-op diagnosis entered * Postoperative Diagnosis: * Obstructive sleep apnea (adult) (pediatric) [G47.33] * Neoplasm of uncertain behavior of skin [D48.5] Surgeon: Jose Riojas MD Box Sorter: None Anesthesia Provider(s): Anesthesiologist: Brandon Rosario DO Anesthesia Type: General Procedure(s): Septoplasty with bilateral inferior turbinoplasties; Removal of right upper eyelid growth Operative Findings: As planned Wound Closure: Primary closure Evidence of infection: No infection noted. Estimated Blood Loss: Minimal, less than 100mL IV Fluids: refer to anesthesia record Blood Transfusion: None Drains: none Specimen (s): * No specimens in log * Implants: * No implants in log * Counts: Instrument, sponge, and needle counts were correct prior to closure and at the con clusion of the case. Complications: None Disposition: The patient was taken to PACU Immediate Post-Operative Condition: Stable Electronically signed by: Jose Riojas MD, 11/29/2019, 9:05 AM PDT documented in this enco unter Plan of Treatment +--------+---------+ + + + | Date | Type | Specialty | Care Team | Description | +--------+---------+ + + + | 12/14/ | Office | Otolaryngology | Jose Riojas MD | | | 2019 | Visit | | [address] [place] [address] | | | | | | [address] [place] | | | | | | [id number] | | | | | | | | +--------+---------+ + + + documented as of this encounter Procedures + +--------+ + + + | Procedure Name | Priori | Date/Time | Associated Diagnosis | Comments | | | ty | | | | + +--------+ + + + | POCT TEST, | Routin | 11/29/2019 | | Results for this | | URINE, QUAL | e | 8:17 AM | | procedure are in the | | | | PDT | | results section. | + +--------+ + + + | SEPTOPLASTY W/ OR | | 11/29/2019 | Obstructive sleep | | | W/O TURBINATES | | 8:10 AM | apnea (adult) | | | | | PDT | (pediatric) | | | | | | Neoplasm of | | | | | | uncertain behavior | | | | | | of skin | | + +--------+ + + + +---+--------+ | | Case | | | Notes | | | CASE | | | 1 | +---+--------+ + +--------+ +---+ + | CORONAVIRUS | Routin | 11/29/2019 | | Results for this | | (COVID-19) NAAT | e | 7:04 AM | | procedure are in the | | | | PDT | | results section. | + +--------+ +---+ + documented in this encounter Results POCT Test, Urine, QUAL (11/29/2019 8:17 AM PDT) + + + + + + | Component | Value | Ref Range | Performed | Pathologist | | | | | At | Signature | + + + + + + | | Negative | Negative | [facility] | | | Test, | | | [facility] | | | Urine, POC | | | HEART | | | | | | MEDICAL | | | | | | CENTER | | | | | | LABORATORY | | | | | | [facility] | | + + + + + + | Internal QC | Acceptable | Acceptable | [facility] | | | | | | [facility] | | | | | | HE[facility] | | | | | | MEDICAL | | | | | | CENTER | | | | | | LABORATORY | | | | | | [facility] | | + + + + + + | Specific | | | [facility] | | | [place], | | | [facility] | | | POC | | | HEART | | | | | | MEDICAL | | | | | | CENTER | | | | | | LABORATORY | | | | | | [facility] | | + + + + + + | Lot Number | [id number] | | [facility] | | | | | | [facility] | | | | | | HE[facility] | | | | | | MEDICAL | | | | | | CENTER | | | | | | LABORATORY | | | | | | [facility] | | + + + + + + | Expiration | 08/18/2020 | | [facility] | | | Date | | | [facility] | | | | | | HEART | | | | | | MEDICAL | | | | | | CENTER | | | | | | LABORATORY | | | | | | [facility] | | + + + + + + + + | Specimen | + + | Urine | + + + + + + + | Performing | Address | City/State/Zipcode | Phone Number | | Organization | | | | + + + + + | [facility] | [address] | [place] [address] | | | [facility] | | | | | LABORAT[facility] | | | | + + + + + Coronavirus (COVID-19) CUATE (11/29/2019 7:04 AM PDT) + + + + + + | Component | Value | Ref Range | Performed | Pathologist | | | | | At | Signature | + + + + + + | SARS-CoV-2, | NegativeComment: | Negative | [facility] | | | [facility] | SARS-CoV-2, RNA | | [facility] | | | (COVID-19) | (COVID-19) [facility] Negative | | MEDICAL | | | | results, using the | | CENTER - | | | | [employer] Platform, | | LABORATORY | | | | should be treated as | | | | | | presumptive and, if | | | | | | inconsistent with | | | | | | clinical signs and | | | | | | symptoms or necessary | | | | | | for patient management, | | | | | | should be tested with an | | | | | | alternative molecular | | | | | | assay. Please contact | | | | | | the laboratory for | | | | | | assistance as needed. | | | | | | Negative results do not | | | | | | preclude COVID-19 | | | | | | infection and should not | | | | | | be used as the sole | | | | | | basis for patient | | | | | | management decisions. | | | | | | Negative results should | | | | | | be considered in the | | | | | | context of a patient's | | | | | | recent exposures, | | | | | | history, presence of | | | | | | clinical signs and | | | | | | symptoms consistent with | | | | | | COVID-19. This assay | | | | | | has been cleared for use | | | | | | under an FDA Emergency | | | | | | Use Authorization. This | | | | | | test is used for | | | | | | clinical purposes. It | | | | | | should not be regarded | | | | | | as investigational or | | | | | | for research. This | | | | | | laboratory is certified | | | | | | under the Clinical | | | | | | Laboratory Improvement | | | | | | Amendments (CLIA) as | | | | | | qualified to perform | | | | | | high complexity testing. | | | | | | This test has been | | | | | | validated in accordance | | | | | | with the FDA's Guidance | | | | | | Document "Policy for | | | | | | Diagnostics Testing in | | | | | | Laboratories Certified | | | | | | to Perform High | | | | | | Complexity Testing under | | | | | | CLIA prior to Emergency | | | | | | Use Authorization for | | | | | | Coronavirus Disease-2019 | | | | | | during the Public | | | | | | Health Emergency" issued | | | | | | on May 14, 2019. | | | | | | FDA independent review | | | | | | of this validation is | | | | | | pending. This test is | | | | | | only authorized for the | | | | | | duration of time the | | | | | | declaration that | | | | | | circumstances exist | | | | | | justifying the | | | | | | authorization of the | | | | | | emergency use of in | | | | | | vitro diagnostic tests | | | | | | for detection of | | | | | | SARS-CoV-2 virus and/or | | | | | | diagnosis of COVID-19 | | | | | | infection under section | | | | | | 564(b)(1) of the Act, 21 | | | | | | U.S.C. 360bbb-3(b)(1), | | | | | | unless the authorization | | | | | | is terminated or | | | | | | revoked sooner. | | | | + + + + + + + + | Specimen | + + | Tissue - Both | | anterior nares (body | | structure) | + + + + + + + | Performing | Address | City/State/Zipcode | Phone Number | | Organization | | | | + + + + + | [facility] | [address] | [place], [place] | [phone] | | [facility] | | [address] | | | - LABORATORY | | | | + + + + + documented in this encounter Visit Diagnoses + + | Diagnosis | + + | Deviated nasal septum | + + | Hypertrophy of nasal turbinates | + + | Neoplasm of uncertain behavior of skin | + + | SHARRON (obstructive sleep apnea) Obstructive sleep apnea (adult) (pediatric) | + + | Diabetes mellitus type II, NON insulin dependent Type II or unspecified type | | diabetes mellitus without mention of complication, not stated as uncontrolled | + + | GERD (gastroesophageal reflux disease) Esophageal reflux | + + | HTN (hypertension) Unspecified essential hypertension | + + | Asthma, moderate persistent Unspecified asthma | + + documented in this encounter Admitting Diagnoses + + | Diagnosis | + + | Obstructive sleep apnea (adult) (pediatric) | + + | Neoplasm of uncertain behavior of skin | + + documented in this encounter Administered Medications + +--------+ + +------+------+ | Medication Order | MAR | Action | Dose | Rate | Site | | | Action | Date | | | | + +--------+ + +------+------+ | acetaminophen (TYLENOL) tablet | Given | 11/29/19 | 1,000 mg | | | | 1,000 mg 1,000 mg, Oral, SEE | | 20 8:05 | | | | | ADMIN INSTRUCTIONS, Starting Tue | | AM PDT | | | | | 11/29/19 at 0739, For 1 dose, | | | | | | | Nursing to give 60 minutes before | | | | | | | time of surgery, Pre-op | | | | | | + +--------+ + +------+------+ + +---+ | | | + +---+ | albuterol-ipratropium 2.5-0.5 | | | mg/3 mL nebulizer solution 3 mL | | | 3 mL, Nebulization, ONCE PRN, | | | Wheezing, Shortness of Breath, | | | Starting 11/29/19 at 0856, For | | | 1 dose, Recovery/Phase I | | + +---+ | | | + +---+ | dextrose 50% injection 12.5-25 | | | g 12.5-25 g, Intravenous, EVERY | | | 15 MIN PRN, Low Blood Sugar, Give | | | 12.5g (25 mL) IV if blood | | | glucose 50-69 mg/dL. Give 25g | | | (50 mL) IV if blood glucose < 50, | | | Starting 11/29/19 at 0739, | | | Repeat in 15 min if blood glucose | | | remains < 70 mg/dL. Repeat | | | blood glucose in 30 min once | | | blood glucose > 70., Pre-op | | + +---+ | | | + +---+ | dextrose 50% injection 12.5-25 | | | g 12.5-25 g, Intravenous, EVERY | | | 15 MIN PRN, Low Blood Sugar, For | | | hypoglycemia. Give 12.5g (25ml) | | | IV if blood glucose 50-69 | | | mg/dL. Give 25g (50ml) IV if | | | blood glucose < 50, Starting Tue | | | 11/29/19 at 0856, Give over 2 min. | | | Repeat in 15 min if blood | | | glucose remains < 70 mg/dL. | | | Repeat blood glucose in 30 min | | | once blood glucose > 70., | | | Recovery/Phase I | | + +---+ | | | + +---+ | ePHEDrine (AKOVAZ) 50 mg/mL | | | injection 5 mg 5 mg, | | | Intravenous, EVERY 5 MIN PRN, if | | | SBP <90., Starting 11/29/19 at | | | 0856, Hold if HR > 100. Maximum | | | total dose 20mg., Recovery/Phase | | | I | | + +---+ | | | + +---+ + +-------+ +--------+---+---+ | fentaNYL (PF) injection 25-50 | Given | 11/29/19 | 25 mcg | | | | mcg 25-50 mcg, Intravenous, | | 20 10:29 | | | | | EVERY 5 MIN PRN, Pain, Initial | | AM PDT | | | | | postop urgent pain or escalating | | | | | | | pain, Starting 11/29/19 at | | | | | | | 0856, For 4 doses, (2 doses | | | | | | | maximum for opioid naive, 4 doses | | | | | | | maximum for opioid tolerant) | | | | | | | First dose must be lowest dose. | | | | | | | Use Pasero Sedation Scale. | | | | | | | [Opioid tolerant = One week or | | | | | | | longer, [id number]-efv-wgfgr use of | | | | | | | at least the following DAILY | | | | | | | dose: 60mg oral morphine, 60mg | | | | | | | oral hydrocodone, 30mg oral | | | | | | | oxycodone, 8mg oral | | | | | | | hydromorphone, fentanyl patch | | | | | | | 25mcg/hr, or equivalent dose of | | | | | | | another opioid], Recovery/Phase I | | | | | | + +-------+ +--------+---+---+ + +---+ | | | + +---+ | glycopyrrolate (ROBINUL) | | | injection 0.2 mg 0.2 mg, | | | Intravenous, PRN, Bradycardia, | | | For HR <50, Starting 11/29/19 | | | at 0856, For 2 doses, May repeat | | | one time after 1min, | | | Recovery/Phase I | | + +---+ | | | + +---+ | hydrALAZINE (APRESOLINE) | | | injection 5 mg 5 mg, | | | Intravenous, EVERY 20 MINUTES | | | PRN, For SBP > 180, DBP > 100, | | | Starting 9/15/20 at 0856, | | | Hold if HR > 100. Maximum total | | | dose 40 mg. Use labetalol first | | | if available., Recovery/Phase I | | + +---+ | | | + +---+ | HYDROmorphone (DILAUDID) | | | injection 0.2-0.6 mg 0.2-0.6 mg, | | | Intravenous, EVERY 5 MIN PRN, | | | Pain, Starting 11/29/19 at | | | 0856, First dose must be lowest | | | dose, can increase subsequent | | | doses by 0.2mg within dosing | | | range. If patient meets opioid | | | tolerant definition, can start | | | with 0.4mg dose. [Maximum total | | | PACU dose 4mg] Use Pasero | | | Sedation Scale. [Opioid tolerant | | | = One week or longer, | | | [id number]-[id number]-[id number] use of at least | | | the following DAILY dose: 60mg | | | oral morphine, 60mg oral | | | hydrocodone, 30mg oral oxycodone, | | | 8mg oral hydromorphone, fentanyl | | | patch 25mcg/hr, or equivalent | | | dose of another opioid], | | | Recovery/Phase I | | + +---+ | | | + +---+ | labetalol (TRANDATE) 5 mg/mL | | | injection 5 mg 5 mg, | | | Intravenous, EVERY 5 MIN PRN, For | | | SBP > 180, DBP > 100, Starting | | | Tu 11/29/19 at 0856, Hold if HR < | | | 60. Maximum total dose 300mg. | | | Notify anesthesia if patient | | | requires more than 50mg., | | | Recovery/Phase I | | + +---+ | | | + +---+ + +---------+ +--------+-------+---+ | lactated ringers (LR) infusion | New Bag | 11/29/19 | 1,000 | 100 | | | at 10-100 mL/hr, Intravenous, | | 20 8:04 | mLs | mL/hr | | | CONTINUOUS, Starting 11/29/19 | | AM PDT | | | | | at 0800, Use this instead of NS | | | | | | | unless patient is on dialysis., | | | | | | | Pre-op | | | | | | + +---------+ +--------+-------+---+ + +---+ | | | + +---+ | meperidine (DEMEROL) injection | | | 12.5-25 mg 12.5-25 mg, | | | Intravenous, PRN, Shivering, | | | Starting Thu11/29/19 at 0856, For | | | 2 doses, May Repeat once in 5 | | | min., Recovery/Phase I | | + +---+ | | | + +---+ + +-------+ +------+---+---+ | ondansetron (ZOFRAN ODT) | Given | 11/29/19 | 4 mg | | | | disintegrating tablet 4 mg 4 mg, | | 20 11:24 | | | | | Oral, EVERY 6 HOURS PRN, Nausea, | | AM PDT | | | | | Vomiting, Starting Thu11/29/19 | | | | | | | at 0951, First line agent, | | | | | | | Post-op/Phase II | | | | | | + +-------+ +------+---+---+ +---+---+ | | | +---+---+ + +-------+ +------+---+---+ | ondansetron (ZOFRAN) injection | Given | 11/29/19 | 4 mg | | | | 4 mg 4 mg, Intravenous, EVERY 4 | | 20 9:40 | | | | | HOURS PRN, Nausea, Vomiting, | | AM PDT | | | | | Starting Thu11/29/19 at 0856, | | | | | | | Recovery/Phase I | | | | | | + +-------+ +------+---+---+ + +---+ | | | + +---+ | sodium chloride 0.9% (NS) | | | infusion at 10-100 mL/hr, | | | Intravenous, CONTINUOUS, Starting | | | Thu11/29/19 at 0800, TKO. Use | | | this instead of LR if patient is | | | on dialysis., Pre-op | | + +---+ | | | + +---+ documented in this encounter
--- OUTSIDE RECORDS SUMMARY | ~2019-12-07 | XMS | Encounter Summary ---
Demographics + + + | Address | [address] | | | [place] [address] | + + + | Home Phone | | + + + | Preferred Language | Unknown | + + + | Marital Status | Single | + + + | Druze Affiliation | 1041 | + + + | Race | or | + + + | Ethnic Group | Not or | + + + Author + + + | Author | [facility] | | | and [place] | + + + | Organization | [facility] | | | and [...] Team Providers + +------+ + | Care Sample Weaver Name | Role | Phone | + +------+ + | Julita Cabral PA-C | PCP | | + +------+ + Reason for Visit Auth/Cert +--------+--------+ + + + + | Status | Reason | Specialty | Diagnoses / | Referred By | Referred To | | | | | Procedures | Contact | Contact | +--------+--------+ + + + + | Closed | | | Diagnoses | | Harri, | | | | | Nausea and | | Keaton E MD | | | | | vomiting, | | [address], | | | | | vomiting of | | [address] | | | | | unspecified | | [place], | | | | | type | | [place] [address] | | | | | Aspiration | | Phone: | | | | | pneumonia | | [phone] | | | | | due to | | Fax: | | | | | gastric | | [phone] | | | | | secretions | | | | | | | (HCC) | | | | | | | Morbid | | | | | | | obesity, | | | | | | | unspecified | | | | | | | obesity type | | | | | | | (HCC) | | | | | | | Nausea and | | | | | | | vomiting, | | | | | | | vomiting of | | | | | | | unspecified | | | | | | | type | | | | | | | [R11.2]Aspir | | | | | | | ation | | | | | | | pneumonia | | | | | | | due to | | | | | | | gastric | | | | | | | secretions | | | | | | | (HCC) | | | | | | | [J69.0]Morbi | | | | | | | d obesity, | | | | | | | unspecified | | | | | | | obesity type | | | | | | | (HCC) | | | | | | | [E66.01] | | | +--------+--------+ + + + + Encounter Details +--------+ + + + + | Date | Type | Department | Care Team | Description | +--------+ + + + + | 04/17/ | Anesthesia | [facility] | Robert Gan, | | | 2015 | Event | MED [facility] OP | MD [address] | | | | | [address] | [place] | | | | | [place] | [address] | | | | | [address] | | | | | | [phone] | | | +--------+ + + + + Anesthesia Record + + + + + | Procedure Name | Responsible | Anesthesia Start | Anesthesia Stop Time | | | Anesthesiologist | Time | | + + + + + | EGD (N/A Mouth) | Robert Gan MD | 04/17/15 1200 | 04/17/15 1232 | + + + + + +----+---+ + + | Da | T | Event | Comment | | te | i | | | | | m | | | | | e | | | +----+---+ + + | 02 | 1 | | | | /0 | 1 | | | | 2/ | 3 | | | | 20 | 0 | | | | 16 | | | | +----+---+ + + | | 1 | An Checkout | Pre-use anesthesia machine/equipment checkout. | | | 1 | | | | | 5 | | | | | 4 | | | +----+---+ + + | | 1 | An Start | Reassessment prior to anesthesia induction/procedure. | | | 2 | | | | | 0 | | | | | 0 | | | +----+---+ + + | | 1 | AN | Per surgeon request | | | 2 | Antibiotic | | | | 0 | declined | | | | 2 | | | +----+---+ + + | | 1 | Preoxygenat | | | | 2 | ed | | | | 0 | | | | | 3 | | | +----+---+ + + | | 1 | An | | | | 2 | Induction | | | | 0 | | | | | 5 | | | +----+---+ + + | | 1 | An | Probably an impossible mask. Didn't try too long. Easy Grade 1 | | | 2 | Intubation | view with Anderson 3 blade, easily intubated. | | | 0 | | | | | 6 | | | +----+---+ + + | | 1 | AN No | TOF 4/4 with sustained tetanus. | | | 2 | Residual | | | | 2 | NMB | | | | 0 | | | +----+---+ + + | | 1 | Breathing | | | | 2 | Spontaneous | | | | 2 | ly | | | | 0 | | | +----+---+ + + | | 1 | Oropharynx | | | | 2 | Suctioned | | | | 2 | | | | | 0 | | | +----+---+ + + | | 1 | Moving | | | | 2 | Purposefull | | | | 2 | y | | | | 1 | | | +----+---+ + + | | 1 | Extubated | | | | 2 | Awake | | | | 2 | | | | | 1 | | | +----+---+ + + | | 1 | Quick Note | [facility] | | | 2 | | | | | 2 | | | | | 3 | | | +----+---+ + + | | 1 | an stop | | | | 2 | data | | | | 2 | | | | | 5 | | | +----+---+ + + | | 1 | An Stop | Patient handed off to recovery nurse. | | | 3 | | | | | 2 | | | +----+---+ + + +------+ | Meds | +------+ + +---------+ | Name | Total | + +---------+ | lidocaine 2% (PF) | 100 mg | + +---------+ | propofol | 250 mg | + +---------+ | succinylcholine | 140 mg | + +---------+ | dexamethasone | 10 mg | + +---------+ | ondansetron | 4 mg | + +---------+ | phenylephrine | 200 mcg | + +---------+ | lactated ringers (LR) infusion | 800 mL | + +---------+ + + | Name | + + | N2O Flow Rate (L/Min) | + + | O2 Flow Rate (L/Min) | + + | Insp O2 | + + | Exp SEV | + + | Air Flow Rate (L/Min) | + + + + | No blood administrations on file. | + + +--------+ + + + | Type | Details | Placement | Removal | +--------+ + + + | Periph | 04/17/15; 1105; [id number] | 04/17/15 1105 by | 04/17/15 1400 by | | eral | catheter system; 20 gauge, 03/19 | Alayna Correa, | Amber Ferris RN | | IV | in length; Hematology; | RN | | | | intradermal injection, topical | | | | | anesthetic spray applied, | | | | | tolerated well; healing within | | | | | expectations; 04/17/15; 1400 | | | +--------+ + + + | Airway | Placement Date: 04/17/15; | 04/17/15 1206 by | 04/17/15 1221 by | | | Placement Time: 1206; Mask | Robert Gan MD | Robert Gan MD | | | Ventilation: Unable; Airway | | | | | Grade: I (Modified Grade 1 w/ | | | | | Anderson 3); With: BURP; | | | | | Successful Technique: video scope | | | | | (Anderson 3); Laryngoscope Blade | | | | | Size: 3; Attempts: 1; Airway | | | | | Type: endotracheal, cuffed; Size: | | | | | 6.5; Position: Right; Airway | | | | | Tube Secured At: 23; Tube | | | | | Reference Point: secure and | | | | | patent; Trauma: soft tissue; | | | | | Other Equipment: stylette; | | | | | Placement Check: exhaled CO2 | | | | | detection device; Removal Date: | | | | | 04/17/15; Removal Time: 1221 | | | +--------+ + + + documented in this encounter Social History + +-------+ +--------+------+ | Tobacco [...] + + documented as of this encounter OR Notes Anesthesia Postprocedure Evaluation - Robert Gan MD - 04/17/2015 12:33 PM PSTFormatti ng of this note might be different from the original. ANESTHESIA POSTANESTHESIA EVALUATION Tiny Campuzano 39 y.o. female 1975 [id number] Procedure(s) EGD (N/A Mouth) Filed Vitals: 04/17/15 1032 04/17/15 1230 BP: 130/76 118/49 Pulse: 74 84 Temp: 36.8 C (98.2 F) 37.4 C (99.3 F) Resp: 20 SpO2: 98% 100% Cooperates? Yes Mental Status Performs simple tasks. Respiratory Satisfactory - Airway patent (self maintained). Cardiovascular Satisfactory Blood pressure and heart rate acceptable Temperature Satisfactory Pain Satisfactory N/V Control Satisfactory Hydration Satisfactory No signs of dehydration Complications None apparent Electronically signed by Robert Gan MD 04/17/2015 12:33 [facility] Preprocedu re Evaluation - Robert Gan MD - 04/16/2015 3:24 PM PSTFormatting of this note might b e different from the original. ANESTHESIA PREANESTHESIA EVALUATION Tiny Campuzano 39 y.o. female 1975 [id number] Procedure(s): EGD (N/A Mouth) Medical history, anesthesia, medications, allergy, NPO status verified histories reviewed. Labs reviewed. Review of Systems / Med History Cardiovascular (+) hypertension. Exercise tolerance <4 METS. Pulmonary (+) shortness of breath, pneumonia (Presumed aspiration pneumonia x2), asthma, s leep apnea (Strongly suspect). at risk Stop Bang Score: 5 Psychology (+) depression, substance abuse (EtOH; Marijuana). Gastrointestinal/Hepatic (+) reflux/GERD, hyperlipidemia. Endocrine (+) Diabetes:type 2, IDDM. (+) obesity: morbid BMI 40+. Physical Exam Airway MP III, TM >3 FB, Mouth opening >2 FB. Neck: full ROM, extends >30 degrees. Dental Gr ossly normal except where noted below.; CV Rhythm regular. Rate Normal. (-) murmur. Pulm Clear to auscultation bilaterally. Neuro Grossly normal. Other Morbid Obesity; thick neck Anesthesia Plan ASA 4 (BMI >50, probable SHARRON, suspect hidden Pulmonary HTN, h/o Aspiration Pneumonia, activ e cannabis smoking in the face of Reactive Airway with inhaler use) Type: General. Induction: Intravenous. Potential problems: None anticipated, difficult airway. Monitors: Standard ASA monitors. Consent statement:Anesthetic plan, alternatives, risks and benefits discussed with patient. Risks discussed included (but were not limited to): sore throat, nausea, heart problems, re spiratory events, pain, perioperative CV events, , ICU placement, drug reaction, post-o p intubation, . Consenting person understands and agrees to proceed. PARQ. BMI >50, probable SHARRON, suspect hidden Pulmonary HTN, h/o Aspiration Pneumonia, active canna bis smoking in the face of Reactive Airway with inhaler use. Worry about laryngospasm/bronc hospasm with IV sedation for Upper GI; discussed with patient. Prefer GETA. documented in this en counter Plan of Treatment +--------+---------+ + + + | Date | Type | Specialty | Care Team | Description | +--------+---------+ + + + | 12/14/ | Office | Otolaryngology | Jose Riojas MD | | | 2019 | Visit | | [address] [place] | | | | | | [address] [place] | | | | | | [address] | | | | | | | | +--------+---------+ + + + documented as of this encounter Visit Diagnoses Not on filedocumented in this encounter Administered Medications + +--------+ +-------+------+------+ | Medication Order | MAR | Action | Dose | Rate | Site | | | Action | Date | | | | + +--------+ +-------+------+------+ | dexamethasone (DECADRON) 10 | Given | 04/17/19 | 10 mg | | | | mg/mL injection Intravenous, | | 16 12:12 | | | | | PRN, Starting Thu04/17/15 at 1212, | | PM PST | | | | | Anesthesia Intra-op | | | | | | + +--------+ +-------+------+------+ +---+---+ | | | +---+---+ + +-------+ +--------+---+---+ | lidocaine (PF) 2% injection | Given | 04/17/19 | 100 mg | | | | PRN, Starting Tu04/17/15 at 1205, | | 16 12:05 | | | | | Anesthesia Intra-op | | PM PST | | | | + +-------+ +--------+---+---+ +---+---+ | | | +---+---+ + +-------+ +------+---+---+ | ondansetron (ZOFRAN) injection | Given | 04/17/19 | 4 mg | | | | PRN, Nausea, Vomiting, Starting | | 16 12:12 | | | | | 04/17/15 at 1212, Anesthesia | | PM PST | | | | | Intra-op | | | | | | + +-------+ +------+---+---+ +---+---+ | | | +---+---+ + +-------+ +---------+---+---+ | phenylephrine (SYEDA-SYNEPHRINE) | Given | 04/17/19 | 200 mcg | | | | 10 mg/mL injection Intravenous, | | 16 12:05 | | | | | PRN, Starting e 04/17/15 at 1205, | | PM PST | | | | | Anesthesia Intra-op | | | | | | + +-------+ +---------+---+---+ +---+---+ | | | +---+---+ + +-------+ +--------+---+---+ | propofol (DIPRIVAN) injection | Given | 04/17/19 | 250 mg | | | | PRN, Starting Thu04/17/15 at 1205, | | 16 12:05 | | | | | Anesthesia Intra-op | | PM PST | | | | + +-------+ +--------+---+---+ +---+---+ | | | +---+---+ + +-------+ +--------+---+---+ | succinylcholine (ANECTINE) | Given | 04/17/19 | 140 mg | | | | injection Intravenous, PRN, | | 16 12:05 | | | | | Starting 04/17/15 at 1205, | | PM PST | | | | | Anesthesia Intra-op | | | | | | + +-------+ +--------+---+---+ +---+---+ | | | +---+---+ documented in this encounter"
--- OUTSIDE RECORDS SUMMARY | ~2019-12-07 | XMS | Encounter Summary ---
Demographics + + + | Address | [address] | | | [place] [address] | + + + | Home Phone | | + + + | Preferred Language | Unknown | + + + | Marital Status | Single | + + + | Congregational Affiliation | 1041 | + + + | Race | or | + + + | Ethnic Group | Not or | + + + Author + + + | Author | [facility] | | | and [place] | + + + | Organization | [facility] | | [...] Team Providers + +------+ + | Care Technical Sales Engineer Name | Role | Phone | + [...] | 05/07/ | Telephone | [facility] | Irma Cason, | Hospital Follow-up | | 2018 | | [facility] | PharmD [address] | | | | | [address] [place] | [facility] | | | | | [place] [address] | [place] [address] | | | | | [phone] | [phone] | | +--------+ + + + + [...] KRISTIE COLINDRES HAS REFERRAL TO CARDIOLOGY AT [facility] SPOKE WITH ALLEN AT JULITA CABRAL'S OFFICE AND SHE STATES THEY ALREADY HAVE A REFERRAL I N PLACE FOR CARDIOLOGY AT [facility]. PT HAS NOT BEEN SCHEDULED YET BUT THEY ARE WORKING ON. 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 Cabral 11. Does the patient have transportation to get to their appointment? Yes 12. Do you have any other concerns about your discharge? No 13. Patient does express interest in Heart Failure Clinic at [facility] Cardiology. Length of phone call: 12 minutes documented in thi s encounter Plan of Treatment +--------+---------+ + + + | Date | Type | Specialty | Care Team | Description | +--------+---------+ + + + | 12/14/ | Office | Otolaryngology | Jose Riojas MD | | | 2019 | Visit | | [address] [place] | | | | | | [address] [place] | | | | | | [id number] | | | | | | | | +--------+---------+ + + + documented as of this encounter Visit Diagnoses Not on filedocumented in this encounter"
--- OUTSIDE RECORDS SUMMARY | ~2019-12-07 | XMS | Encounter Summary ---
Demographics + + + | Address | [address] | | | [place] [address] | + + + | Home Phone | | + + + | Preferred Language | Unknown | + + + | Marital Status | Single | + + + | Protestant Affiliation | 1041 | + + + | Race | or | + + + | Ethnic Group | Not or | + + + Author + + + | Author | [facility] | | | and [place] | + + + | Organization | [facility] | | | and [...] Team Providers + +------+ + | Care [employer] Principal Name | Role | Phone | + +------+ + | Keaton Wade MD | PCP | | + +------+ + Encounter Details +--------+ + + + + | Date | Type | Department | Care Team | Description | +--------+ + + + + | 10/04/ | Orders Only | [facility] | Jose Riojas MD | Deviated nasal | | 2020 | | OTOLARYNGOLOGY | [address] | septum (Primary Dx); | | | | SERVICES [address] | [address] [place] | Hypertrophy of | | | | [address] [place] | [id number] | nasal turbinates; | | | | [place] [address] | | Neoplasm of | | | | [phone] | | uncertain behavior | | | | | | of skin; Obstructive | | | | | | sleep apnea (adult) | | | | | | (pediatric) | +--------+ + + + + Social [...] 2020 | Visit | | [address] [place] [address] | | | | | | [address] [place] | | | | | | [id number] | | | | | | | | +--------+---------+ + + + documented as of this encounter Visit Diagnoses + + | Diagnosis | + + | Deviated nasal septum - Primary | + + | Hypertrophy of nasal turbinates | + + | Neoplasm of uncertain behavior of skin | + + | Obstructive sleep apnea (adult) (pediatric) | + + documented in this encounter"
--- OUTSIDE RECORDS SUMMARY | ~2019-12-07 | XMS | Encounter Summary ---
Demographics + + + | Address | [address] | | | [place] [address] | + + + | Home Phone [...] + + + | Author | [facility] | | | and [place] | + + + | Organization | [facility] | | [...] Team Providers + +------+ + | Care Bath Design Sales Consultant Name | Role | Phone | [...] Medicine / | (adult) | [place] | [facility] | | | | Sleep | (pediatric) | [place] | [facility] | | | | Medicine | CONSULT PW | [facility] [address] | [place], [place] | | | | | 1:30 | [place], | [address] Phone: | | | | | Procedures | OR | [phone] | | | | | NEW PATIENT | [address] | Fax: | | | | | | Phone: | [phone] | | | | | | [phone] | | | | | | | Fax: | | | | | | | [phone] | | +--------+--------+ + + + + Encounter Details +--------+---------+ + + + | Date | Type | Department | Care Team | Description | +--------+---------+ + + + | 08/20/ | Office | [facility] | Lupillo [place]es | NO SHOW (Primary Dx) | | 2016 | Visit | SLEEP DISORDER [address] | MD [address] | | | | | [address] [place] | [address] [place] | | | | | [place] [address] | [place] [address] | | | | | [phone] | [phone] | | | | | | | [...] a NO SHOW for a [address] [facility] medicine consultation. 2: 21 PM PDTdocumented in this encounter Plan of Treatment +--------+---------+ + + + | Date | Type | Specialty | Care Team | Description | +--------+---------+ + + + | 12/14/ | Office | Otolaryngology | Jose Riojas MD | | | 2020 | Visit | | [address] | | | | | | [address] [place] | | | | | | [address] | | | | | | | | +--------+---------+ + + + documented as of this encounter Visit Diagnoses + + | Diagnosis | + + | No Show - Primary Code used for vists where the patient is not seen | + + documented in this encounter"
--- OUTSIDE RECORDS SUMMARY | ~2019-12-07 | XMS | Encounter Summary ---
Demographics + + + | Address | [address] | | | [place] [address] | + + + | Home Phone | | + + + | Preferred Language | Unknown | + + + | Marital Status | Single | + + + | Sikhism Affiliation | 1041 | + + + | Race | or | + + + | Ethnic Group | Not or | + + + Author + + + | Author | [facility] | | | and [place] | + + + | Organization | [facility] | | [...] Team Providers + +------+ + | Care Crown Assembly Machine Set Up Mechanic Name | Role | Phone | + +------+ + | Julita Cabral PA-C | PCP | | + +------+ + Reason for Visit +--------+--------+ + | Reason | Onset | Comments | | | Date | | +--------+--------+ + | LABS | 01/05/ | | | | 2018 | | +--------+--------+ + Encounter Details +--------+ + + + + | Date | Type | Department | Care Team | Description | +--------+ + + + + | 01/05/ | Telephone | [facility] | [facility] | LABS | | 2018 | | GASTROENTEROLOGY | [address] | | | | | [address] | [address] | | | | | [address] [place] | [place] | | | | | [address] | [id number] | | | | | [phone] | | | +--------+ + + + [...] Chappell - 01/05/2019 8:20 AM PDTDawn from [facility] juan alberto mai, they had not received a fax of lab orders from [facility]. I went ahead and printed out the ord ers from [facility] and faxed them to [phone].Electronically signed by Iveth Chappell at 8:22 AM PDTdocumented in this encounter Plan of Treatment +--------+---------+ + + + | Date | Type | Specialty | Care Team | Description | +--------+---------+ + + + | 12/14/ | Office | Otolaryngology | Jose Riojas MD | | | 2019 | Visit | | [address] | | | | | | [address] [place] | | | | | | [address] | | | | | | | | +--------+---------+ + + + documented as of this encounter Visit Diagnoses Not on filedocumented in this encounter"
--- OUTSIDE RECORDS SUMMARY | ~2019-12-07 | XMS | Encounter Summary ---
Demographics + + + | Address | [address] | | | [place] [address] | + + + | Home Phone | | + + + | Preferred Language | Unknown | + + + | Marital Status | Single | + + + | Scientology Affiliation | 1041 | + + + | Race | or | + + + | Ethnic Group | Not or | + + + Author + + + | Author | [facility] | | | and [place] | + + + | Organization | [facility] | | [...] Team Providers + +------+ + | Care Kerfer Machine Operator Name | Role | Phone | + +------+ + | Julita Cabral PA-C | PCP | | + +------+ + Encounter Details +--------+ + + + + | Date | Type | Department | Care Team | Description | +--------+ + + + + | 07/08/ | Orders Only | [facility] [place] | [facility], | Alcoholic cirrhosis | | 2019 | | GASTROENTEROLOGY | [address] | of liver without | | | | [address] | [address] | ascites (HCC) | | | | [address] [place] | [place] | (Primary Dx) | | | | [address] | [address] | | | | | [phone] | | | +--------+ + + + [...] documented as of this encounter Progress Notes Phoebe, Lupe Duval RN - 07/08/2018 8:34 AM PDTEthyl Glucuronide and Ethyl Sulfate UA ordered for every 2 weeks, and Kanika faxed order to [facility]. documented in this encounter Plan of Treatment +--------+---------+ + + + | Date | Type | Specialty | Care Team | Description | +--------+---------+ + + + | 12/14/ | Office | Otolaryngology | Jose Riojas MD | | | 2019 | Visit | | [address] [facility] | | | | | | [address] [place] | | | | | | [id number] | | | | | | | [...]
--- OUTSIDE RECORDS SUMMARY | ~2019-12-07 | XMS | Encounter Summary ---
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
--- OUTSIDE RECORDS SUMMARY | ~2019-12-07 | XMS | Encounter Summary ---
Demographics + + + | Address | [address] | | | [place] [address] | + + + | Home Phone | | + + + | Preferred Language | Unknown | + + + | Marital Status | Single | + + + | Worship Affiliation | 1041 | + + + [...] Team Providers + +------+ + | Care Cuffer Name | Role | Phone | + +------+ + | Keaton Wade MD | PCP | | + +------+ + Reason for Visit + +--------+ + | Reason | Onset | Comments | | | Date | | + +--------+ + | Insurance | 10/23/ | surgery | | Authorization | 2019 | | + +--------+ + Encounter Details +--------+ + + + + | Date | Type | Department | Care Team | Description | +--------+ + + + + | 10/23/ | Telephone | [facility] | Jose Riojas MD | Insurance | | 2019 | | OTOLARYNGOLOGY | [address] | Authorization | | | | SERVICES [address] | [address] [place] | (surgery ) | | | | [address] [facility] | [address] | | | | | [place] [address] | | | | | | [phone] | | | +--------+ + + + [...] 0 Standard drinks | 0.0 | stopped --18 | | | or equivalent | | | + + +---------+ + + + + | Sex Assigned at | Date Recorded | | | | + + + | Not on file | | + + + documented as of this encounter Miscellaneous Notes Telephone Encounter - Cindy Doran, Retail Team Leader - 11/11/2019 11:50 AM PDTPatien t has been scheduled for surgery 11/29/19. elephone Encounter - Cindy Doran Medical Neil tant - 11/10/2019 3:41 PM PDTTalked to patient to let her know that we have not received au th from [facility]. Did let her know that she is not scheduled for surgery. Also let her kno w our marketing proposal specialist is giving them a call to see what is going on. Once I know more I will give you a call. Electronically signed by Cindy Doran Retail Team Leader at 0 3:45 PM PDTTelephone Encounter - Pau Mosqueda - 11/07/2019 1:55 PM PDTPatient called back to speak with Cindy. Updated number was given. Please advise and call patient back at [phone] signed by Pau Mosqueda at 11/07/2019 1:56 PM PDTTelephone [place] unter - Cindy Doran Retail Team Leader - 10/25/2019 12:53 PM PDTI tried calling pat nt 2 times but it keeps saying that its a none working number. We don't have auth yet. Elec tronically signed by Cindy Doran Retail Team Leader at 10/25/2019 12:53 PM PDTTelephon e Encounter - Pau Mosqueda - 10/24/2019 9:07 AM PDTPatient called to speak with Cindy i n regards to "whether or not they have received approvalfor her to have surgery. She knows t shahzad Rios sent it over, had her other insurance approved it?". Please advise and call clayton vazquez back at [phone] signed by Pau Mosqueda at 10/24/2019 9:08 AM PD Tdocumented in this encounter Plan of Treatment +--------+---------+ + + + | Date | Type | Specialty | Care Team | Description | +--------+---------+ + + + | 12/14/ | Office | Otolaryngology | Jose Riojas MD | | 2019 | Visit | | [address] | | | | | | [address] [place] | | | | | | [id number] | | | | | | | | +--------+---------+ + + + documented as of this encounter Visit Diagnoses Not on filedocumented in this encounter
--- OUTSIDE RECORDS SUMMARY | ~2019-12-07 | XMS | Encounter Summary ---
Demographics + + + | Address | [address] | | | [place] [address] | + + + | Home Phone | | + + + | Preferred Language | Unknown | + + + | Marital Status | Single | + + + | Jehovah'S Witness Affiliation | 1041 | + + + [...] Team Providers + +------+ + | Care Detective Bowling [place] Name | Role | Phone | + +------+ + | Julita Cabral PA-C | PCP | | + +------+ + Encounter Details +--------+ + + + + | Date | Type | Department | Care Team | Description | +--------+ + + + + | 01/05/ | Documentati | [facility] [place] | [facility], | | | 2019 | on | GASTROENTEROLOGY | [address] | | | | | [address] | [address] | | | | | [address] [place], [place] | [place], [place] | | | | | [address] | [address] | | | | | [phone] | | | +--------+ + + + [...] 01/05/2019 8:24 AM PDTFaxed lab orders to [facility].Electro nically signed by Becky Ferris CMA at 01/05/2019 8:25 AM PDTdocumented in this encoun ter Plan of Treatment +--------+---------+ + + + | Date | Type | Specialty | Care Team | Description | +--------+---------+ + + + | 12/14/ | Office | Otolaryngology | Jose Riojas MD | | | 2019 | Visit | | [address] [place] [address] | | | | | | [address] [place] | | | | | | [id number] | | | | | | | | +--------+---------+ + + + documented as of this encounter Visit Diagnoses Not on filedocumented in this encounter"
--- OUTSIDE RECORDS SUMMARY | ~2019-12-07 | XMS | Encounter Summary ---
Demographics + + + | Address | [address] | | | [place] [address] | + + + | Home Phone [...] Author + + + | Author | [facility] | | | and [place] | + + + | Organization | [facility] | | | [...] Team Providers + +------+ + | Care Government Affairs Fellow Name | Role | Phone | + +------+ + | Julita Cabral PA-C | PCP | | + +------+ + Reason for Visit + +--------+ + | Reason | Onset | Comments | | | Date | | + +--------+ + | Insurance | 03/01/ | | | Authorization | 2017 | | + +--------+ + Encounter Details +--------+ + + + + | Date | Type | Department | Care Team | Description | +--------+ + + + + | 03/01/ | Telephone | [facility] | [facility], | Insurance | | 2017 | | GASTROENTEROLOGY | [address] | Authorization | | | | [address] | | | | | [address] [place], [place] | [place] [facility], [place] | | | | | [address] | [address] | | | | | [phone] | | | +--------+ + + + [...] PSTdocumented in this encounter Plan of Treatment +--------+---------+ [...]
--- OUTSIDE RECORDS SUMMARY | ~2019-12-07 | XMS | Encounter Summary ---
Demographics + + + | Address | [address] | | | [place] [address] | + + + | Home Phone [...] Team Providers + +------+ + | Care Culinary Intern Name | Role | Phone | [...] | | | (pediatric) | | [place] | | | | | Neoplasm of | | [address] Phone: | | | | | uncertain | | [phone] | | | | | behavior of | | Fax: | | | | | skin | | [phone] | | | | | Procedures | | | | | | | NM EXCISION | | | | | | | TURBINATE,BECERRIL | | | | | | | BMUCOUS NM | | | | | | | REPAIR OF | | | | | | | NASAL SEPTUM | | | | | | | NM EXC | | | | | | [...] + + + + | 11/28/ | Anesthesia | [facility] | Brandon Rosario | | | 2020 | Event | MED CTR OR INTRA OP | DO E[address] | | | | | [address] | [facility] | | | | | [place] | [place] [address] | | | | | [address] | [phone] | | | | | [phone] | | | +--------+ + + + + Anesthesia Record + + + + + | Procedure Name | Responsible | Anesthesia Start | Anesthesia Stop Time | | | Anesthesiologist | Time | | + + + + + | Septoplasty with | Brandon Harriscisco, | 11/29/19808 | 11/29/19904 | | bilateral inferior | DO | | | | turbinoplasties; | | | | | Removal of right | | | | | upper eyelid growth | | | | | (Bilateral Nose) | | | | + + + + + +----+---+ + + | Da | T | Event | Comment | | te | i | | | | | m | | | | | e | | | +----+---+ + + | 09 | 0 | | | | /1 | 7 | | | | 5/ | 5 | | | | 20 | 3 | | | | 20 | | | | +----+---+ + + | | 0 | An Checkout | Pre-use anesthesia machine/equipment checkout. | | | 8 | | | | | 0 | | | | | 1 | | | +----+---+ + + | | 0 | An Start | Reassessment prior to anesthesia induction/procedure. | | | 8 | | | | | 0 | | | | | 9 | | | +----+---+ + + | | 0 | Preoxygenat | | | | 8 | ed | | | | 1 | | | | | 2 | | | +----+---+ + + | | 0 | An RSI | | | | 8 | | | | | 1 | | | | | 4 | | | +----+---+ + + | | 0 | An | | | | 8 | Induction | | | | 1 | | | | | 4 | | | +----+---+ + + | | 0 | An | | | | 8 | Intubation | | | | 1 | | | | | 5 | | | +----+---+ + + | | 0 | AN Bite | | | | 8 | Block | | | | 1 | | | | | 5 | | | +----+---+ + + | | 0 | Quick Note | Bite block at end of case per Dr. Riojas | | | 8 | | | | | 2 | | | | | 0 | | | +----+---+ + + | | 0 | Pre-Procedu | | | | 8 | ral Timeout | | | | 2 | Completed | | | | 9 | | | +----+---+ + + | | 0 | First | | | | 8 | Inc/Proc St | | | | 2 | | | | | 9 | | | +----+---+ + + | | 0 | AN No | TOF 4/4 with sustained tetanus. | | | 8 | Residual | | | | 3 | NMB | | | | 2 | | | +----+---+ + + | | 0 | [place] off | | | | 8 | | | | | 5 | | | | | 6 | | | +----+---+ + + | | 0 | Oropharynx | | | | 8 | Suctioned | | | | 5 | | | | | 7 | | | +----+---+ + + | | 0 | AN Bite | | | | 8 | Block | | | | 5 | | | | | 7 | | | +----+---+ + + | | 0 | Breathing | | | | 8 | Spontaneous | | | | 5 | ly | | | | 8 | | | +----+---+ + + | | 0 | Moving | | | | 8 | Purposefull | | | | 5 | y | | | | 8 | | | +----+---+ + + | | 0 | Extubation/ | | | | 8 | Airway LDA | | | | 5 | Removal | | | | 9 | | | +----+---+ + + | | 0 | an stop | | | | 8 | data | | | | 5 | | | | | 9 | | | +----+---+ + + | | 0 | An Stop | Patient handed off to recovery nurse. | | | 0 | | | | | 5 | | | +----+---+ + + +------+ | Meds | +------+ + +---------+ | Name | Total | + +---------+ | midazolam | 2 mg | + +---------+ | fentaNYL injection (2 mL) | 100 mcg | + +---------+ | propofol (DIPRIVAN) injection | 300 mg | | (bolus) (20 mL) | | + +---------+ | lidocaine 2% | 100 mg | + +---------+ | ondansetron | 4 mg | + +---------+ | dexamethasone | 5 mg | + +---------+ | HYDROmorphone | 0.4 mg | + +---------+ | phenylephrine (BIORPHEN) | 300 mcg | | injection 0.1 mg/mL (5 mL ampule) | | + +---------+ | succinylcholine | 140 mg | + +---------+ | LR (Infusion) | 500 mL | + +---------+ + + | [...] Removal | +--------+ + + + | Wound | 11/29/19; 0804; Incision; | 11/29/19803 by | 11/29/19 08 by | | | Bilateral; nose; 11/29/19; 809 | Moni Medina RN | Hortencia Blanchard RN | +--------+ + + + | Wound | 11/29/19; 0804; Incision; Right; | 11/29/19803 by | 11/29/19 08 by | | | eye; 11/29/19; 08 | Moni Medina RN | Hortencia Blanchard RN | +--------+ + + + | Airway | Placement Date: 11/29/19; | 11/29/19814 by | 11/29/19 08 by | | | Placement Time: 814 (created via | Brandon Rosario, | Brandon Rosario, | | | procedure documentation); Airway | DO | DO | | | Grade: 1; External Maneuvers: | | | | | elevated head of bed; Successful | | | | | Technique: video scope; | | | | | Laryngoscope Blade Size: 3; | | | | | Attempts: 1; Airway Type: | | | | | endotracheal; Size: 6.5; Airway | | | | | Tube Secured At: 21; Trauma: | | | | | none; Other Equipment: stylette; | | | | | Placement Check: exhaled CO2 | | | | | detection device; Removal Date: | | | | | 11/29/19; Removal Time: 858; | | | | | Additional Comments: | | | | | Preoxygenated in head up/reverse | | | | | trendelenburg, RSI with good view | | | | | via [place]. Would likely be a | | | | | very difficult bag mask | | | | | ventilation. | | | +--------+ + + + [...] encounter OR Notes Anesthesia Postprocedure Evaluation - Brandon Rosario DO - 11/29/2019 10:19 AM PDTFor matting of this note might be different from the original. ANESTHESIA POSTANESTHESIA EVALUATION Tiny Campuzano 44 y.o. female 1975 [id number] Procedure(s) Septoplasty with bilateral inferior turbinoplasties; Removal of right upper e yelid growth (Bilateral Nose) Cooperates? Yes Mental Status Performs simple tasks. Respiratory Satisfactory - Airway patent (self maintained). Cardiovascular Satisfactory - Blood pressure and heart rate acceptable Temperature Satisfactory Pain Satisfactory N/V Control Satisfactory Hydration Satisfactory - No signs of dehydration Adverse Events ADVERSE EVENTS: No adverse events Vitals Value Taken Time Temp 37.1 C (98.8 F) 11/29/19 0904 Pulse 86 11/29/19 1019 Resp 22 11/29/19 0943 BP 135/65 11/29/19 1016 Arterial Line BP Arterial Line BP 2 SpO2 98 % 11/29/19 1019 Vitals shown include unvalidated device data. Electronically signed by Brandon Rosario DO 11/29/2019 10:19 AM PDT [facility] nesthesia Procedure Notes - Brandon Rosario DO - 11/29/2019 8:19 AM PDTAssociated Order(s): Anesthesia Airway NoteAnesthesia Airway Placement 11/29/2019 8:15 AM Preprocedure check: patient identified, oxygen, airway assessed, patient reassessment prior to induction, airway equipment checked and suction Rapid Sequence Induction: yes External maneuver: elevated head of bed Successful technique: videoscope Laryngoscope blade size: 3 Airway grade: 1 (Full view of glottis) Other equipment: stylette Attempts: 1 Airway type: endotracheal Size: 6.5 Cuffed: cuffed Route, reference point: left side of mouth Tube depth: 21 cm Tube secured with: adhesive tape Trauma: none Tube placement verification: carbon dioxide detection Performing provider: Brandon Rosario DO Authorizing provider: Brandon Rosario DO Comments: Preoxygenated in head up/reverse trendelenburg, RSI with good view via [place]. W ould likely be a very difficult bag mask ventilation. Please see intraoperative grid for any additional medication documentation. nesthesia Prepr ocedure Evaluation - Brandon Rosario DO - 11/28/2019 6:39 PM PDTFormatting of this no te might be different from the original. ANESTHESIA PREANESTHESIA EVALUATION Tiny Campuzano 44 y.o. female 1975 [id number] Procedure(s): SEPTOPLASTY W/ OR W/O TURBINATES. cyst in the middle part of the right upper eyelid removal. (Bilateral Nose) Medical,anesthesia, drug, allergy histories reviewed, NPO status verified. ECG reviewed. Labs reviewed. Review of Systems / Med History Anesthesia History (-) PONV, difficult intubation, malignant hyperthermia . Cardiovascular Exercise tolerance >4 METS (+) history of heart murmur (+) hypertension (-) coronary artery disease. . Pulmonary (+) Chronic Obstructive Pulmonary Disease.(+) sleep apnea (Intolerant of CPAP).(+) Sleep ap tejinder history/interventions: known.(+) asthma.Stop Bang Score: 5. Gastrointestinal/Hepatic (+) hypercholesterolemia, alcohol problem. (-) acid reflux. (+) cirrhosis. Renal (+) pyelonephritis. (-) end-stage renal disease. Endocrine (+) obesity: BMI (30-39) (+) Diabetes: type 2. Hematology/Other (+) anemia. Cancer (+) colon cancer. Neuromuscular (+) chronic pain. Psychology (+) substance abuse, alcohol, other, MJ. Physical Exam Airway Large neck MP III, TM >3 FB, Mouth opening >2 FB. Neck: full ROM, extends >30 degrees. Jaw protru alannah normal. Dental Patient denies loose, chipped or missing teeth (+) age appropriate dentition. CV Rhythm regular. Rate normal. (-) murmur. Pulm Clear to auscultation bilaterally. Neuro grossly normal. Anesthesia Plan ASA: 3 (saleem no cpap, bmi 36, cirrhosis, etoh/mj) Type: General. Induction: Intravenous. Potential problems: None anticipated. Monitors: Standard ASA monitors. Consent statement: Anesthetic plan, alternatives, risks and benefits discussed with patient. discussed risks t o teeth, nausea, pain, perioperative CV events, respiratory events, sore throat Consenting person understands and agrees to proceed. PARQ. Electronically Signed by: Brandon Rosario DO ESig date/time: 11/28/2019 6:39 PM PDT documented in th is encounter Miscellaneous Notes Anesthesia Post-op Handoff - Brandon Rosario DO - 11/29/2019 9:04 AM PDTFormatting o f this note might be different from the original. ANESTHESIA HANDOFF NOTE Tiny Campuzano 44 y.o. female 1975 [id number] Septoplasty with bilateral inferior turbinoplasties; Removal of right upper eyelid growth ( Bilateral Nose) HANDOFF NOTE Handoff Protocol Used: post-procedure handoff checklist completed The following were completed during the transfer of care: 1. Identification of patient 2. Identification of responsible practitioner (primary service) 3. Discussion of pertinent medical history 4. Discussion of the surgical/procedure course (procedure, reason for surgery, procedure pe rformed) 5. Intraoperative anesthetic management and issues/concerns 6. Expectations/plans for the early post-procedure period 7. Opportunity for questions and acknowledgement of understanding of report from receiving team Patient Location: Phase I Condition: sedated Airway/O2: other (see comments) Multimodal analgesia: multimodal analgesia used between 6 hours prior to anesthesia start t o PACU discharge Comments: Supplemental Oxygen used as necessary to maintain Oxygen Saturation at or above 9 2% The significant anesthesia concerns and VS in Epic were reviewed with the receiving team. Brandon Rosario DO 11/29/2019 9:04 AM PDT [facility] documented in this encounter Plan of Treatment [...] [place] | | | | | | [address] | | | | | | | | +--------+---------+ + + + documented as of this encounter Procedures + +--------+ + + + | Procedure Name | Priori | Date/Time | Associated Diagnosis | Comments | | | ty | | | | + +--------+ + + + | ANE AIRWAY NOTE | Routin | 11/29/2019 | | Results for this | | | e | 8:19 AM | | procedure are in the | | | | PDT | | results section. | + +--------+ + + + documented in this encounter Results Anesthesia Airway Note (11/29/2019 8:19 AM PDT) + + + | Narrative | Performed At | + + + | Brandon Rosario DO 11/29/2019 8:22 AM Anesthesia Airway | | | Placement 11/29/2019 8:15 AM Preprocedure check: patient | | | identified, oxygen, airway assessed, patient reassessment prior to | | | induction, airway equipment checked and suction Rapid Sequence | | | Induction: yes External maneuver: elevated head of bed Successful | | | technique: videoscope Laryngoscope blade size: 3 Airway grade: 1 | | | (Full view of glottis) Other equipment: stylette Attempts: 1 Airway | | | type: endotracheal Size: 6.5 Cuffed: cuffed Route, reference | | | point: left side of mouth Tube depth: 21 cm Tube secured with: | | | adhesive tape Trauma: none Tube placement verification: carbon | | | dioxide detection Performing provider: Brandon Rosario DO | | | Authorizing provider: Brandon Rosario DO Comments: | | | Preoxygenated in head up/reverse trendelenburg, RSI with good view | | | via [place]. Would likely be a very difficult bag mask ventilation. | | | Please see intraoperative grid for any additional medication | | | documentation. | | + + + documented in this encounter Visit Diagnoses Not on filedocumented in this encounter Administered Medications + +--------+ +------+------+------+ | Medication Order | MAR | Action | Dose | Rate | Site | | | Action | Date | | | | + +--------+ +------+------+------+ | dexamethasone (PF) 10 mg/mL | Given | 11/29/19 | 5 mg | | | | injection Intravenous, PRN, | | 20 8:18 | | | | | Starting 11/29/19 at 0818, | | AM PDT | | | | | Anesthesia Intra-op | | | | | | + +--------+ +------+------+------+ +---+---+ | | | +---+---+ + +-------+ +---------+---+---+ | fentaNYL (PF) injection | Given | 11/29/19 | 100 mcg | | | | Intravenous, PRN, Starting Thu | | 20 8:13 | | | | | 11/29/19 at 0813, Anesthesia | | AM PDT | | | | | Intra-op | | | | | | + +-------+ +---------+---+---+ +---+---+ | | | +---+---+ + +-------+ +--------+---+---+ | HYDROmorphone (DILAUDID) 2 | Given | 11/29/19 | 0.4 mg | | | | mg/mL injection Intravenous, | | 20 8:18 | | | | | PRN, Starting Thu11/29/19 at | | AM PDT | | | | | 0818, Anesthesia Intra-op | | | | | | + +-------+ +--------+---+---+ +---+---+ | | | +---+---+ + +---------+ +---+---+---+ | lactated ringers (LR) infusion | New Bag | 11/29/19 | | | | | Intravenous, CONTINUOUS PRN, | | 20 7:55 | | | | | Starting 11/29/19 at 0755, | | AM PDT | | | | | Anesthesia Intra-op | | | | | | + +---------+ +---+---+---+ +---+---+ | | | +---+---+ + +-------+ +--------+---+---+ | lidocaine (PF) 2% injection | Given | 11/29/19 | 100 mg | | | | Intravenous, PRN, Starting Tue | | 20 8:13 | | | | | 11/29/19 at 0813, Anesthesia | | AM PDT | | | | | Intra-op | | | | | | + +-------+ +--------+---+---+ +---+---+ | | | +---+---+ + +-------+ +------+---+---+ | midazolam (VERSED) 1 mg/mL | Given | 11/29/19 | 2 mg | | | | injection Intravenous, PRN, | | 20 8:06 | | | | | Starting 11/29/19 at 0806, | | AM PDT | | | | | Anesthesia Intra-op | | | | | | + +-------+ +------+---+---+ +---+---+ | | | +---+---+ + +-------+ +------+---+---+ | ondansetron (ZOFRAN) injection | Given | 11/29/19 | 4 mg | | | | Intravenous, PRN, Starting Tue | | 20 8:18 | | | | | 11/29/19 at 0818, Anesthesia | | AM PDT | | | | | Intra-op | | | | | | + +-------+ +------+---+---+ +---+---+ | | | +---+---+ + +-------+ +---------+---+---+ | phenylephrine (BIORPHEN) 0.1 | Given | 11/29/19 | 100 mcg | | | | mg/mL injection Intravenous, | | 20 8:37 | | | | | PRN, Starting 11/29/19 at | | AM PDT | | | | | 0826, Anesthesia Intra-op | | | | | | + +-------+ +---------+---+---+ +-------+ +---------+---+---+ | Given | 11/29/19 | 100 mcg | | | | | 20 8:28 | | | | | | AM PDT | | | | +-------+ +---------+---+---+ | Given | 11/29/19 | 100 mcg | | | | | 20 8:26 | | | | | | AM PDT | | | | +-------+ +---------+---+---+ +---+---+ | | | +---+---+ + +-------+ +-------+---+---+ | propofol (DIPRIVAN) injection | Given | 11/29/19 | 50 mg | | | | Intravenous, PRNErlin Tue | | 20 8:30 | | | | | 11/29/19 at 0814, Anesthesia | | AM PDT | | | | | Intra-op | | | | | | + +-------+ +-------+---+---+ +-------+ +--------+---+---+ | Given | 11/29/19 | 250 mg | | | | | 20 8:14 | | | | | | AM PDT | | | | +-------+ +--------+---+---+ +---+---+ | | | +---+---+ + +-------+ +--------+---+---+ | succinylcholine (ANECTINE) | Given | 11/29/19 | 140 mg | | | | injection Intravenous, PRN, | | 20 8:14 | | | | | Starting 11/29/19 at 0814, | | AM PDT | | | | | Anesthesia Intra-op | | | | | | + +-------+ +--------+---+---+ +---+---+ | | | +---+---+ documented in this encounter"
--- OUTSIDE RECORDS SUMMARY | ~2019-12-07 | XMS | Encounter Summary ---
Demographics + + + | Address | [address] | | | [place] [address] | + + + | Home Phone | | + + + | Preferred Language | Unknown | + + + | Marital Status | Single | + + + | Alevism Affiliation | 1041 | + + + [...] Providers + +------+ + | Care Optical Sales Associate Name | Role | Phone | [...] 2015 | | GASTROENTEROLOGY | [address], [place] | Morbid obesity due | | | | [address] [place] | [address] [place], [place] | to excess calories | | | | [address] [place], [place] | [address] | ([facility]); Aspiration | | | | [address] | | pneumonia, | | | | [phone] | | unspecified | | | | | | aspiration pneumonia | | | | | | type, unspecified | | | | | | laterality, | | | | | | unspecified part of | | | | | | lung ([facility]) | +--------+ + + + + Social [...] 2020 | Visit | | [address] [facility] [address] | | | | | | [address] [place] | | | | | | [address] | | | | | | | [...]
--- OUTSIDE RECORDS SUMMARY | ~2019-12-07 | XMS | Encounter Summary ---
Demographics + + + | Address | [address] | | | [place] [address] | + + + | Home Phone | | + + + | Preferred Language | Unknown | + + + | Marital Status | Single | + + + | Baptist Affiliation | 1041 | + + + | Race | or | + + + | Ethnic Group | Not or | + + + Author + + + | Author | [facility] | | | and [place] | + + + | Organization | [facility] | | | [...] Team Providers + +------+ + | Care Grader Marker Name | Role | Phone | + +------+ + | Julita Cabral PA-C | PCP | | + +------+ + Reason for Visit +---------+--------+ + | Reason | Onset | Comments | | | Date | | +---------+--------+ + | Imaging | 01/19/ | | | | 2018 | | +---------+--------+ + Encounter Details +--------+ + + + + | Date | Type | Department | Care Team | Description | +--------+ + + + + | 01/19/ | Telephone | [facility] | [facility], | Imaging | | 2019 | | GASTROENTEROLOGY | [place] [address] | | | | | [address] | [address] | | | | | [address] [place], [place] | [place] | | | | | [address] | [id number] | | | | | [phone] | | | +--------+ + + + [...] Telephone Encounter - Becky Ferris CMA - 01/19/2019 8:40 AM PSTFaxed order to [facility]. Patient also called to let us know DOS.01/28/19 elephone Encounter - Iveth Chappell - 01/19/2019 8: 07 AM PSTMichael from Clinic called asking for a copy of US of Liver order to be faxed to their clinic. Patient is scheduled on Jan 28 at 8AM . Michael's fax number is [phone] lectronically signed by Iveth Chappell at 01/19/2019 8:16 AM PSTdocumented in this encoun ter Plan of Treatment [...] [place] | | | | | | [address] | | | | | | | | +--------+---------+ + + + documented as of this encounter Visit Diagnoses Not on filedocumented in this encounter"
--- OUTSIDE RECORDS SUMMARY | ~2019-12-07 | XMS | Encounter Summary ---
Demographics + + + | Address | [address] | | | [place] [address] | + + + | Home Phone | | + + + | Preferred Language | Unknown | + + + | Marital Status | Single | + + + | Synagogue Affiliation | 1041 | + + + | Race | or | + + + | Ethnic Group | Not or | + + + Author + + + | Author | [facility] | | | and [place] | + + + | Organization | [facility] | | | [...] Team Providers + +------+ + | Care Animation Director Name | Role | Phone | + [...] + + | 07/21/ | Telephone | [facility] | Jose Riojas MD | Procedure (surgery | | 2018 | | OTOLARYNGOLOGY [address] | [address] [facility] | ) | | | | [address] [facility] [address] | [address] [place] | | | | | [place] | [address] | | | | | [address] | | | | | | [phone] | | | +--------+ + + + [...] Miscellaneous Notes Telephone Encounter - Cindy Doran, Air Vice Marshal - 08/03/2018 2:49 PM PDTCalled and spoke to patient to get her scheduled for surgery. Patient has been scheduled for surge ry ThursdaySeptember 07. Post op has been made and information has been sent.Electronically sig brett by Cindy Doran, Air Vice Marshal at 08/03/2018 2:50 PM PDTTelephone Encounter - Iveth Chappell - 07/30/2018 1:53 PM PDTPatient called in checking on the status of sched uling, advised her of Cindy's note, best number [phone] she thinks vm is set up. She s aid she didn't have minutes for a week so that may be why you couldn't reach her. Electronic ally signed by Iveth Chappell at 07/30/2018 1:54 PM PDTTelephone Encounter - Jorden Doran, Air Vice Marshal - 07/21/2018 2:07 PM PDTI tried calling [...] 2019 | Visit | | [address] [facility] [address] | | | | | | [address] [place] | | | | | | [address] | | | | | | | | +--------+---------+ + + + documented as of this encounter Visit Diagnoses Not on filedocumented in this encounter"
--- OUTSIDE RECORDS SUMMARY | ~2019-12-07 | XMS | Encounter Summary ---
Demographics + + + | Address | [address] | | | [place] [address] | + + + | Home Phone | | + + + | Preferred Language | Unknown | + + + | Marital Status | Single | + + + | Roman Catholic Affiliation | 1041 | + + [...] Team Providers + +------+ + | Care Zoning Assistant Name | Role | Phone | + +------+ + | Julita Cabral PA-C | PCP | | + +------+ + Encounter Details +--------+ + + + + | Date | Type | Department | Care Team | Description | +--------+ + + + + | 02/18/ | Orders Only | [facility] | Phil Frank, | | | 2016 | | CONVERSION [address] | DO [address] | | | | | [address] | [place] [address] | | | | | [place], [place] | [phone] | | | | | [address] | | | | | | [phone] | | | +--------+ + + + [...] | | | | | | [address] [place] | | | | | | [address] | | | | | | | [...] m/s Septal | | | E/e': 11.88 Voice Engineer: EMMANUEL Authenticated by: Keith | | | Rochelle SPARKS Report Date/Time: -- | | + + + + + | Procedure Note | + + | Mansoor Graf Conversion - 11/04/2018 10:40 PM PDT Patient Name: Bertha Campuzano | | of : 1975 Performing Physician: Rochelle Parker | | INDICATIONS D | | yspnea CONCLUSIONS 1. [...] | 6.08 cmLVPWd: 0.96 cmLVOT Area: 4.23 [id number] Diam: 2.32 cm%FS: 29.55 %EF(Teich): | | 55.63 %ESV(Teich): 82.55 mlLVIDs: 4.28 cmSV(Teich): 103.53 mlRV Major: 7.81 | | cmRVIDd: 3.22 cmLAAs A4C: 19.17 [id number] A-L A4C: 58.05 mlLALs A4C: 5.37 cmRAAs: | | 9.50 [id number] A-L: 20.91 mlRAESV MOD: 20.37 mlRALs: 3.66 cmAo Diam: 3.43 | | cmAo/LA: 0.63LA Diam: 5.42 cmLA/Ao: 1.57MV A Finn: 1.26 m/sMV DecT: 223.78 msMV | | E Finn: 1.08 m/sMV E/A Ratio: 0.85MV PHT: 64.89 msMVA By PHT: 3.38 [id number] e': | | 0.09 m/sSeptal E/e': 11.88 Voice Engineer: JEFFERSONuthenticated by: Rochelle Parker | | MDReport [...] | |Septal E/e': 11.88 | | | |Voice Engineer: | |Authenticated by: Rochelle Parker MD | [...]
--- OUTSIDE RECORDS SUMMARY | ~2019-12-07 | XMS | Encounter Summary ---
Demographics + + + | Address | [address] | | | [place] [address] | + + + | Home Phone | | + + + | Preferred Language | Unknown | + + + | Marital Status | Single | + + + | Rastafarian Affiliation | 1041 | + + + | Race | or | + + + | Ethnic Group | Not or | + + + Author + + + | Author | [facility] | | | and [place] | + + + | Organization | [facility] | | | [...] Team Providers + +------+ + | Care Boarding Specialist Name | Role | Phone | [...] + + | 07/30/ | Telephone | [facility] | [facility], | Procedure | | 2018 | | GASTROENTEROLOGY | FRANK Oconnor [address] | | | | | [address] | [address] | | | | | [address], [place] | [place], [place] | | | | | [address] | [address] | | | | | [phone] | | | +--------+ + + + [...] she was able to get clearance from rocket scientist and she said she missed that appointment. [...] and call lucas ellison back. Thank you domedhat holley in this encounter Plan of Treatment +--------+---------+ + + + | Date | Type | Specialty | Care Team | Description | +--------+---------+ + + + | 12/14/ | Office | Otolaryngology | Jose Riojas MD | | | 2019 | Visit | | [address] [place] | | | | | | [address] [place] | | | | | | [address] | | | | | | | | +--------+---------+ + + + documented as of this encounter Visit Diagnoses Not on filedocumented in this encounter"
--- OUTSIDE RECORDS SUMMARY | ~2019-12-07 | XMS | Encounter Summary ---
Demographics + + + | Address | [address] | | | [place] [address] | + + + | Home Phone [...] Author + + + | Author | [facility] | | | and [place] | + + + | Organization | [facility] | [...] Team Providers + +------+ + | Care Electroencephalographic Technician Name | Role | Phone | + +------+ + | Keaton Wade MD | PCP | | + +------+ + Reason for Visit + +--------+ + | Reason | Onset | Comments | | | Date | | + +--------+ + | Procedure | 11/22/ | surgery time | | | 2019 | | + +--------+ + Encounter Details +--------+ + + + + | Date | Type | Department | Care Team | Description | +--------+ + + + + | 11/22/ | Telephone | [facility] | Jose Riojas MD | Procedure (surgery | | 2019 | | OTOLARYNGOLOGY | [address] | time ) | | | | SERVICES [address] | [address] | | | | | [address] | [phone] | | | | | [place] [address] | | | | | | [phone] | | | +--------+ + + + [...] Miscellaneous Notes Telephone Encounter - Cindy Doran, Maintenance Engineer [employer] - 11/23/2019 9:54 AM PDTCalled and spoke to patient to let her know that she will be checking in ThursdayNovember 28 at 6:45 am. Nothing to eat or drink after midnight the night before. Patient does have a ride and she is not taking any blood thinners. Patient is going to come down on Thursday to get t ested for [facility]. Did tell the patient that she will been to be at home until surgery. Patient state that she understands this. I also told the patient that there is only once entrance right now into the hospital and its right next to the ER. Patient will call i f she has any questions. Electronically signed by Cindy Doran, Maintenance Engineer [employer] at 9:58 AM PDTdocumented in this encounter Plan of [...] [place] | | | | | | [id number] | | | | | | | | +--------+---------+ + + + documented as of this encounter Visit Diagnoses Not on filedocumented in this encounter"
--- OUTSIDE RECORDS SUMMARY | ~2019-12-07 | XMS | Encounter Summary ---
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 1206 Kzc-Ndgyj-Dcw Goal Most Recent Value STG Status met at 05/04/2018 1100 STG [place] Level modified independent at 04/27/2018 1206 STG Comments with or w/o AD at 04/27/2018 1206 Gait Goal Most Recent Value STG Status progressing at 05/05/2018 1306 STG [place] Level modified independent at 04/27/2018 1206 STG [...] rounding during day shift and q2h during maintenance mechanic 2nd shift. Answer call light i n person and/or [...] rounding during day shift and q2h during maintenance mechanic 2nd shift. Answer call light i n person and/or [...] air lan of Care - Evelyn Norwood MICHEL - 05/04/2018 3:26 PM PST Problem: Patient [...] rounding during day shift and q2h during maintenance mechanic 2nd shift. Answer call light i n person and/or [...] are: Recommended discharge disposition: home with assist, correction facility Post discharge occupational therapy recommendation: ongoing [...] STG Status progressing at 05/04/2018 0940 STG [place] Level modified independent at 05/02/2018 1407 STG Position standing at 05/02/2018 1407 LB Dressing Goal Most Recent Value STG Status progressing at 05/04/2018 0940 STG [place] Level modified independent at 05/02/2018 1407 Additional [...] rounding during day shift and q2h during maintenance mechanic 2nd shift. Answer call light i n person and/or [...] rounding during day shift and q2h during maintenance mechanic 2nd shift. Answer call light i n person and/or [...] hypervolemia type [E87.70] 3+ pitting edema [R60.9]. Facilities Operations Technician visit was part of routine rounding. Spiritual Evaluation: The patient requested a follow-up chapel visit. She welcomed the opportunity to participat e in the Spiritism communion service offered by [facility]. She is also grateful for her sister briseida nicolas has visited her this morning and her aunt who should visit this afternoon. She expects t o be here several more days and is accepting of that plan. Spiritual Interventions: The frame aligner brought the patient to [facility] chapel services and offered care. Spiritual Outcomes: The patient appreciated latter day support and sabianist interaction. Spiritual Goals/Follow-up: Follow up as needed or requested with chapel attendance. lan of Care - Roll, Kyleigh Babin, PT - 05/04/2018 11:00 AM [...] rounding during day shift and q2h during maintenance mechanic 2nd shift. Answer call light i n person and/or [...] be from multiple contributors. Gait Level of [place]: supervised Assistive Device: 2 wheeled walker (FWW) Distance (feet): 300 Transfers Pt able to perform sit <> stand from regular height surfaces with increased time and effort but no physical assist required. Sit-Stand, Level of [place]: modified independent Stand-Sit, Level of [place]: modified independent Bxa-Tjgnu-Gyt, Assistive Device: 2 wheeled walker (FWW) Safety Issues: sequencing ability decreased, step length decreased, weight-shifting ability decreased Impairments: impaired balance, strength decreased Bed Mobility pt sitting up in chair Assistive Device: HOB elevated Balance sitting is good static stand is good dynamic stand is faisr Therapeutic Exercise time did not allow for ex as pt wanted to go to [facility] Functional Endurance fair ROM WFL; LE's limited by large tissue mass/habitus PT Goal Review Date Most Recent Value STG Review Date 05/10/18 at 05/04/2018 1100 Ccvioe-Lzc-Fwxqew Goal Most Recent Value STG Status revised at 05/04/2018 1100 STG [place] Level modified independent at 04/27/2018 1206 STG Assistive Device none at 04/27/2018 1206 STG Comments simulate home environment at 04/27/2018 1206 Gmb-Zasxg-Alw Goal Most Recent Value STG Status revised at 05/04/2018 1100 STG [place] Level modified independent at 04/27/2018 1206 STG Comments with or w/o AD at 04/27/2018 1206 Wgv-Mhgtp-Zgu Goal Most Recent Value STG Status met at 05/04/2018 1100 STG [place] Level modified independent at 04/27/2018 1206 STG Comments with or w/o AD at 04/27/2018 1206 Gait Goal Most Recent Value STG Status revised at 05/04/2018 1100 STG [place] Level modified independent at 04/27/2018 1206 STG Assistive Device 2 wheeled walker (FWW), bariatric, cane (straight, single point) at 0 04/27/2018 1206 STG Distance (feet) 300' x 2 at 04/27/2018 1206 Additional Goal #1 PT Most Recent Value STG Status revised at 05/04/2018 1100 STG HEP instruction for strength/conditioning with verbal/demonstrated understanding by pt . at 04/27/2018 120 Electronically signed by: Kyleigh Diallo PT, 05/04/2018 [...] rounding during day shift and q2h during maintenance mechanic 2nd shift. Answer call light i n person and/or [...] are: Recommended discharge disposition: home with assist, correction facility Post discharge occupational therapy recommendation: ongoing [...] to complete sponge bath Bathing, Level of [place]: supervised, set up required Assistive Device: none Bathing Assess/Train, Position: standing Bathing Impairments: strength decreased, impaired functional endurance/activity tolerance [facility], donned a clean with assist to tie. she managed her pants off/on over hips with toileting and during sponge bath. LB Dressing, Level of [place]: stand by assist Assistive Device: none LB Dressing Assess/Train, Position: standing LB Dressing Impairments: decreased flexibility, strength decreased, impaired balance, pain, impaired functional endurance/activity tolerance No physical assistance required Toileting, Level of [place]: supervised Assistive Device: grab bar Toileting Assess/Train, Position: sitting Toileting Impairments: decreased flexibility, strength decreased, impaired balance, pain, m otor control impaired, impaired functional endurance/activity tolerance leaning against counter for support Grooming, Level of [place]: supervised Assistive Device: none Grooming Assess/Train, Position: supported standing Grooming Impairments: strength decreased, impaired balance, impaired functional endurance/a ctivity tolerance Transfers Pt walked loop in hallway, ~220 ft. Reported this was the first time she had been up to [place] today. Increased time, but no physical assistance required and no need for restbreak Sit-Stand, Level of [place]: modified independent Stand-Sit, Level of [place]: modified independent Row-Fbyov-Dii, Assistive Device: 2 wheeled walker (FWW), none Toilet, Level of [place]: supervised Toilet, Assistive Device: 2 wheeled walker (FWW), grab bars Safety Issues: step length decreased, weight-shifting ability decreased Impairments: coordination impaired, impaired balance OT Goal Review Date Most Recent Value STG Review Date 05/09/18 at 05/02/2018 1407 Grooming Goal Most Recent Value STG Status progressing at 05/04/2018 0940 STG [place] Level modified independent at 05/02/2018 1407 STG Position standing at 05/02/2018 1407 LB Dressing Goal Most Recent Value STG Status progressing at 05/04/2018 0940 STG [place] Level modified independent at 05/02/2018 1407 Additional Goals #1 OT Most Recent Value STG Status continued at 05/04/2018 0940 STG Pt. will tolerate BLE compression wraps and other edema management techniques includin g MLM for edema management at 05/02/2018 1407 Electronically signed by: ANAND Bledsoe, 05/04/2018 12:19 lan of Care - Jo Gregory, CAREER ORIENTATION TEACHER - 05/04/2018 5:58 AM PSTProblem: Patient Care [...] rounding during day shift and q2h during maintenance mechanic 2nd shift. Answer call light i n person and/or [...] rounding during day shift and q2h during maintenance mechanic 2nd shift. Answer call light i n person and/or [...] rounding during day shift and q2h during maintenance mechanic 2nd shift. Answer call light i n person and/or [...] rounding during day shift and q2h during maintenance mechanic 2nd shift. Answer call light i n person and/or [...] vital sign response to mobility. Level of [place]: supervised Assistive Device: 2 wheeled walker (FWW) Distance (feet): suzanne. 275 ft Transfers Pt able to perform sit <> stand from regular height surfaces with increased time and effort but no physical assist required. Sit-Stand, Level of [place]: modified independent Stand-Sit, Level of [place]: modified independent Rlf-Nmroq-Phq, Assistive Device: none, 2 wheeled walker (FWW) Toilet, Level of [place]: supervised Toilet, Assistive Device: grab bars Safety Issues: sequencing ability decreased, step length decreased, weight-shifting ability decreased Impairments: coordination impaired, impaired balance Bed Mobility Increased time and effort, no phys A needed Assistive Device: HOB elevated Supine to Sit, Level of [place]: modified independent Sit to Supine, Level of [place]: modified independent Safety Issues: decreased use of [...] STG Review Date 05/04/18 at 04/27/2018 1206 Mzmsbx-Ymy-Vxkoxp Goal Most Recent Value STG Status met at 04/28/2018 1145 STG [place] Level modified independent at 04/27/2018 1206 STG Assistive Device none at 04/27/2018 1206 STG Comments simulate home environment at 04/27/2018 1206 Den-Cyjaz-Vui Goal Most Recent Value STG Status met at 05/03/2018 1608 STG [place] Level modified independent at 04/27/2018 1206 STG Comments with or w/o AD at 04/27/2018 1206 Qct-Yuvrq-Emi Goal Most Recent Value STG Status met at 05/03/2018 1608 STG [place] Level modified independent at 04/27/2018 1206 STG Comments with or w/o AD at 04/27/2018 1206 Gait Goal Most Recent Value STG Status progressing at 05/03/2018 1608 STG [place] Level modified independent at 04/27/2018 1206 STG [...] PT, 05/03/2018 16:13 lan of Care - Penny dotson, SHASHI Medina - 05/03/2018 3:53 PM PSTProblem: Discharge Planning Goal: Patient will be discharged in a safe manner Outcome: Improving This porter sample case went to follow up with patient and she was just getting started with PT. Attempted to call Luis Antonio, lavell Gallegos RN at [facility] [phone]. Apparently , [email or web address] phone system is down and this CM was sent to the Financial Assistant VM--Left a VM asking her to call this CM back. This CM will re-visit with patient to further discuss any discharge needs tomorrow. Electro nically signed by: SHASHI Ulrich 05/03/2018 15:53 lan of Care - Lorraine eMsa se, RN - 05/03/2018 3:13 PM PSTProblem: [...] rounding during day shift and q2h during maintenance mechanic 2nd shift. Answer call light i n person and/or [...] needs known. lan of Care - Romaine Espino OT - 05/03/2018 1:49 PM PSTFormatting of this note might be different from paul duran original. Problem: Patient Care Overview (Adult) Goal: [...] rounding during day shift and q2h during maintenance mechanic 2nd shift. Answer call light i n person and/or [...] ADLs, not yet able to mobilize at [facility] safe for home discharge and medical status. Tiny will benefit from continued therapeutic intervention to address ongoing impairment s and increase safety and independence with activities necessary for safe discharge. Refer below for specific details regarding functional levels. Occupational Therapy Discharge Recommendations are: Recommended discharge disposition: home with assist, correction facility Post discharge occupational therapy recommendation: ongoing [...] thread B feet LB Dressing, Level of [place]: maximal assist (25% patient effort) Assistive Device: none LB Dressing Assess/Train, Position: sitting, standing LB Dressing Impairments: decreased flexibility, strength decreased, impaired balance, pain, impaired functional endurance/activity tolerance No physical assistance required Toileting, Level of [place]: supervised Assistive Device: grab bar Toileting Assess/Train, Position: sitting Toileting Impairments: decreased flexibility, strength decreased, impaired balance, pain, m otor control impaired, impaired functional endurance/activity tolerance Bed Mobility Sit to Supine, Level of [place]: modified independent Safety Issues: decreased use of legs for bridging/pushing Impairments: coordination impaired Transfers Pt walked loop in [facility], ~220 ft. Reported this was the first time she had been up to [place] today. Increased time, but no physical assistance required and no need for restbreak Sit-Stand, Level of [place]: modified independent Stand-Sit, Level of [place]: modified independent Vxt-Motmd-Wfh, Assistive Device: none, 2 wheeled walker (FWW) Toilet, Level of [place]: supervised Toilet, Assistive Device: grab bars Safety Issues: sequencing ability decreased, step length decreased, weight-shifting ability decreased Impairments: coordination impaired, impaired balance OT Goal Review Date Most Recent Value STG Review Date 05/09/18 at 05/02/2018 1407 Grooming Goal Most Recent Value STG Status new at 05/02/2018 1407 STG [place] Level modified independent at 05/02/2018 1407 STG Position standing at 05/02/2018 1407 LB Dressing Goal Most Recent Value STG Status progressing at 05/03/2018 1349 STG [place] Level modified independent at 05/02/2018 1407 Additional Goals #1 OT Most Recent Value STG Status continued at 05/03/2018 1349 STG Pt. will tolerate BLE compression wraps and other edema management techniques includin g MLM for edema management at 05/02/2018 1407 Electronically signed by: Romaine Romero OT, 05/03/2018 15:49 lan of [facility] [place] Barbara morton, PT - 05/03/2018 8:53 AM [...] oximetry with SpO2 >92% by 04/28/18. 5. iTny will have breath sounds consistent with baseline function throughout stay and r everse airway bronchospasm when indicated. Reevaluate goal by 04/28/18. 6. Liv will demonstrate safe ambulation with cane or FWW 300' x 2 by 05/04/18. STRATEGY TO ACHIEVE GOALS: 1. Conduct hourly rounding during day shift and q2h during maintenance mechanic 2nd shift. Answer call light i n person and/or [...] rounding during day shift and q2h during maintenance mechanic 2nd shift. Answer call light i n person and/or [...] slept well overnight. lan of Care - Lomeli Sondra coffey, CAREER ORIENTATION TEACHER - 05/03/2018 4:28 AM PSTProblem: Patient Care [...] rounding during day shift and q2h during maintenance mechanic 2nd shift. Answer call light i n person and/or [...] rounding during day shift and q2h during maintenance mechanic 2nd shift. Answer call light i n person and/or [...] to monitor. lan of Care - Romaine Felix OT - 05/02/2018 2:07 PM PSTFormatting of [...] rounding during day shift and q2h during maintenance mechanic 2nd shift. Answer call light i n person and/or [...] anascara and abdominal pain related to water daryc ght gain. Objective exam reveals impairments with [...] Comment: Lives alone, meals delivered, nurse from [facility] visits along with others in community. [...] STG Status new at 05/02/2018 1407 STG [place] Level modified independent at 05/02/2018 1407 STG Position standing at 05/02/2018 1407 LB Dressing Goal Most Recent Value STG Status new at 05/02/2018 1407 STG [place] Level modified independent at 05/02/2018 1407 Additional [...] rounding during day shift and q2h during maintenance mechanic 2nd shift. Answer call light i n person and/or [...] rounding during day shift and q2h during maintenance mechanic 2nd shift. Answer call light i n person and/or [...] sign response (see flow sheets). Level of [place]: supervised Assistive Device: 2 wheeled walker (FWW) Distance (feet): 300 Transfers Pt requires increased time and effort but able to demo safe transfer technique without cuei ng. Sit-Stand, Level of [place]: modified independent Stand-Sit, Level of [place]: modified independent Ryi-Fczvi-Wya, Assistive Device: none, 2 wheeled walker (FWW) Safety Issues: sequencing ability decreased, step length decreased, weight-shifting ability decreased Impairments: coordination impaired, impaired balance Bed Mobility Increased time and effort, no phys A needed Assistive Device: bed rails, HOB elevated Supine to Sit, Level of [place]: modified independent Sit to Supine, Level of [place]: not tested Safety Issues: decreased use of [...] STG Review Date 05/04/18 at 04/27/2018 1206 Mqotla-Zii-Unzrrp Goal Most Recent Value STG Status met at 04/28/2018 1145 STG [place] Level modified independent at 04/27/2018 1206 STG Assistive Device none at 04/27/2018 1206 STG Comments simulate home environment at 04/27/2018 1206 Mne-Ejogn-Een Goal Most Recent Value STG Status progressing at 04/29/2018 1100 STG [place] Level modified independent at 04/27/2018 1206 STG Comments with or w/o AD at 04/27/2018 1206 Vef-Qbvqe-Zlm Goal Most Recent Value STG Status progressing at 04/29/2018 1100 STG [place] Level modified independent at 04/27/2018 1206 STG Comments with or w/o AD at 04/27/2018 1206 Gait Goal Most Recent Value STG Status progressing at 04/29/2018 1100 STG [place] Level modified independent at 04/27/2018 1206 STG [...] PT, 05/02/2018 9:25 lan of Care - Lop James leon I RN - 05/02/2018 4:54 AM PSTProblem: [...] rounding during day shift and q2h during maintenance mechanic 2nd shift. Answer call light i n person and/or [...] rounding during day shift and q2h during maintenance mechanic 2nd shift. Answer call light i n person and/or [...] rounding during day shift and q2h during maintenance mechanic 2nd shift. Answer call light i n person and/or [...] >2L this shift. No falls/injury. lan of [facility] - James Smart RN - 05/01/2018 3:38 [...] rounding during day shift and q2h during maintenance mechanic 2nd shift. Answer call light i n person and/or [...] maintained. lan of Care - Tammy Baron, DANIE - 04/30/2018 8:51 PM PSTProblem: Patient Care [...] rounding during day shift and q2h during maintenance mechanic 2nd shift. Answer call light i n person and/or [...] rounding during day shift and q2h during maintenance mechanic 2nd shift. Answer call light i n person and/or [...] she is voiding. lan of Care - [facility], Rosy Duran RN - 04/30/2018 10:25 AM [...] rounding during day shift and q2h during maintenance mechanic 2nd shift. Answer call light i n person and/or [...] encouraged pt to NOT blow nose. Calls cloveri toly for mobility assist lan of Care - Eder Seaman Sera, CAREER ORIENTATION TEACHER - 04/30/2018 5:12 AM PSTProblem: Patient Care [...] rounding during day shift and q2h during maintenance mechanic 2nd shift. Answer call light i n person and/or [...] of accessory muscles. Electronically signed by: Eder Morejon, DANIE 04/30/2018 5:12 lan of Care - R [...] rounding during day shift and q2h during maintenance mechanic 2nd shift. Answer call light i n person and/or [...] rounding during day shift and q2h during maintenance mechanic 2nd shift. Answer call light i n person and/or [...] 1:04 PM PSTFaxed updated chart notes to [facility]. Received the communication result report; result ok Electronically signed by: Falguni Hebert 04/29/2018 13:04 This CM left a message on the voicemail of Luis Antonio at [facility] asking for a return call. PH: [phone] Electronically signed by: Falguni Hebert 04/29/2018 15:03 lan of Da - Sarah Bhagat, PT - 04/29/2018 12:21 PM PSTFormatting of [...] rounding during day shift and q2h during maintenance mechanic 2nd shift. Answer call light i n person and/or [...] good tolerance, stability, slowed rosa Level of [place]: stand by assist Assistive Device: 2 wheeled walker (FWW) Distance (feet): 300' Transfers No phys A needed, increased time/effort, needs intermittent object support Sit-Stand, Level of [place]: supervised Stand-Sit, Level of [place]: supervised Ucm-Alwgf-Fvs, Assistive Device: 2 wheeled walker (FWW) Toilet, Level of [place]: supervised Toilet, Assistive Device: grab bars Safety Issues: sequencing ability decreased, step length decreased, weight-shifting ability decreased Impairments: coordination impaired, impaired balance Bed Mobility Increased time and effort, no phys A needed Assistive Device: bed rails, HOB elevated Supine to Sit, Level of [place]: modified independent Sit to Supine, Level of [place]: not tested Safety Issues: decreased use of [...] STG Review Date 05/04/18 at 04/27/2018 1206 Ifhibw-Qvt-Nprbng Goal Most Recent Value STG Status met at 04/28/2018 1145 STG [place] Level modified independent at 04/27/2018 1206 STG Assistive Device none at 04/27/2018 1206 STG Comments simulate home environment at 04/27/2018 1206 Xya-Nhsaq-Dpj Goal Most Recent Value STG Status progressing at 04/29/2018 1100 STG [place] Level modified independent at 04/27/2018 1206 STG Comments with or w/o AD at 04/27/[address]-Aizmi-Qca Goal Most Recent Value STG Status progressing at 04/29/2018 1100 STG [place] Level modified independent at 04/27/2018 1206 STG Comments with or w/o AD at 04/27/2018 1206 Gait Goal Most Recent Value STG Status progressing at 04/29/2018 1100 STG [place] Level modified independent at 04/27/2018 1206 STG [...] rounding during day shift and q2h during maintenance mechanic 2nd shift. Answer call light i n person and/or [...] hypervolemia type [E87.70] 3+ pitting edema [R60.9]. Facilities Operations Technician visit was in response to the patient's request to attend a latter day service. Spiritual Evaluation: The patient welcomed spiritual care and was glad to attend the [facility] Chapel service. She i s Spiritism and has desired to attend mass at her own restorationism [place] in [facility], but lenz s been unable to in the last few weeks due to her illness and lack of transportation. She is connected with Father Onur at her restorationism. 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 Spiritual Interventions: The frame aligner attended, brought patient to the chapel by wheelchair, attended the chapel ser vice with the patient and transported her back to her room. Spiritual Outcomes: The patient appreciated spiritual care and the privilege of attending chapel service. Spiritual Goals/Follow-up: Follow up as needed or requested with spiritual and emotional support. lan of Care - Alvarez, Felipa Nicolas RN - 04/29/2018 4:00 AM PSTProblem: Patient [...] cane or FWW 300' x 2 by 2/19/19. STRATEGY TO ACHIEVE GOALS: 1. Conduct hourly rounding during day shift and q2h during maintenance mechanic 2nd shift. Answer call light i n person and/or [...] rounding during day shift and q2h during maintenance mechanic 2nd shift. Answer call light i n person and/or [...] rounding during day shift and q2h during maintenance mechanic 2nd shift. Answer call light i n person and/or [...] She had diminished breath s ounds. lan [facility] - Debra Solorzano RN - 04/28/2018 4:08 [...] at 10:45. I will pass on to maintenance mechanic 2nd shift that she wo uld like a wheelchair and chaplain Angelina, said she would wheel her down to chapel at the [facility]. lan [facility] - Angelina Whaley Chaplain - 04/28/2018 12:22 [...] rounding during day shift and q2h during maintenance mechanic 2nd shift. Answer call light i n person and/or [...] hypervolemia type [E87.70] 3+ pitting edema [R60.9]. Facilities Operations Technician visit was part of routine rounding. Spiritual Evaluation: This was a follow-up visit to offer prayer support and assess any further patient needs. T he patient welcomed the visit and prayer. She also requested a Bible as well as any other C hristian literature such as the [employer] devotional pamphlet. She attends [employer] in [place], [place] where Father Onur is a frame aligner. Her sister continues to b e a support to her. She shared that she has been hospitalized in several locations since and that it has been challenging and that she has felt discouraged at times. T he patient would like to attend Spiritism chapel services on at 11 am. Spiritual Interventions: The frame aligner attended, offered care, witnessed patient's story, responded to emotional pain , identified concerns, provided a Bible and offered prayer. Hat Model also spoke with the sera hawkins to [...] rounding during day shift and q2h during maintenance mechanic 2nd shift. Answer call light i n person and/or [...] hypervolemia type [E87.70] 3+ pitting edema [R60.9]. Facilities Operations Technician visit was part of routine rounding. Spiritual Evaluation: The patient was resting in a bed attended by her sister. She was pleasant and engaged acti vely and with humor. She had requested Spiritism spiritual support and was glad to finally s ee the frame aligner. She was also interested in attending chapel services. The patient express ed that at times she feels anxious and overwhelmed when her room is very busy. She feels gr ateful for her care and she says that she has everything she needs at home. Her sister is s upportive as well as some friends in [place]. 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 Answer call light i n person and/or [...] widened NANY and lateral shifts Level of [place]: contact guard assist, stand by assist Assistive Device: cane (straight, single point) Distance (feet): 175' Transfers Pt completes transfers well with minimal object support, increased time/effort Sit-Stand, Level of [place]: supervised Stand-Sit, Level [place]: supervised Gxs-Dyyem-Ypl, Assistive Device: cane (straight, single point) Safety Issues: sequencing ability decreased, step length decreased, weight-shifting ability decreased Impairments: coordination impaired, impaired balance Bed Mobility Practiced bed mobility with bed flat, no railing to simulate home environment. Able to comp lete with increased time and effort, no phys A needed Assistive Device: none, bed rails Supine to Sit, Level of [place]: modified independent Sit to Supine, Level of [place]: modified independent Safety Issues: decreased use of [...] STG Review Date 05/04/18 at 04/27/2018 1206 Ujfvjx-Qgd-Tjawac Goal Most Recent Value STG Status met at 04/28/2018 1145 STG [place] Level modified independent at 04/27/2018 1206 STG Assistive Device none at 04/27/2018 1206 STG Comments simulate home environment at 04/27/2018 1206 Zdt-Ukiaf-Sup Goal Most Recent Value STG Status progressing at 04/28/2018 1145 STG [place] Level modified independent at 04/27/2018 1206 STG Comments with or w/o AD at 04/27/2018 1206 Egg-Manni-Jih Goal Most Recent Value STG Status progressing at 04/28/2018 1145 STG [place] Level modified independent at 04/27/2018 1206 STG Comments with or w/o AD at 04/27/2018 1206 Gait Goal Most Recent Value STG Status progressing at 04/28/2018 1145 STG [place] Level modified independent at 04/27/2018 1206 STG [...] PT, 04/28/2018 11:49 lan of Care - Madeline Hitchcock RN - 04/28/2018 3:24 AM PSTProblem: Patient [...] rounding during day shift and q2h during maintenance mechanic 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 Answer call light i n person and/or [...] to sleep well between cares. 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 Answer call light i n person and/or [...] Pt notes having gambino sportation services through [facility]. Will do trial with cane next visit [...] Comment: Lives alone, meals delivered, nurse from [facility] visits along with others in community. [...] occasional furniture or wall support Level of [place]: stand by assist Assistive Device: 2 wheeled walker (FWW), bariatric Distance (feet): 150' + 15', 25' Transfers Pt transfers w/o phys A needed, increased time/effort. Able to sit and rise from low toilet with grab bar A Sit-Stand, Level of [place]: supervised Stand-Sit, Level of [place]: supervised Unl-Vytbs-Hue, Assistive Device: 2 wheeled walker (FWW), bariatric Toilet, Level of [place]: supervised Toilet, Assistive Device: grab bars Safety Issues: sequencing ability decreased, step length decreased, weight-shifting ability decreased Impairments: coordination impaired Bed Mobility Pt with HOB fully elevated, no phys A needed for OOB, increased time/effort Assistive Device: HOB elevated, bed rails Supine to Sit, Level of [place]: supervised Sit to Supine, Level of [place]: not tested Safety Issues: decreased use of [...] STG Review Date 05/04/18 at 04/27/2018 1206 Yqghqu-Tlq-Vybupb Goal Most Recent Value STG Status new at 04/27/2018 1206 STG [place] Level modified independent at 04/27/2018 1206 STG Assistive Device none at 04/27/2018 1206 STG Comments simulate home environment at 04/27/2018 1206 Feo-Mmird-Qvq Goal Most Recent Value STG Status new at 04/27/2018 1206 STG [place] Level modified independent at 04/27/2018 1206 STG Comments with or w/o AD at 04/27/2018 1206 Noh-Sbggs-Ssj Goal Most Recent Value STG Status new at 04/27/2018 1206 STG [place] Level modified independent at 04/27/2018 1206 STG Comments with or w/o AD at 04/27/2018 1206 Gait Goal Most Recent Value STG Status new at 04/27/2018 1206 STG [place] Level modified independent at 04/27/2018 1206 STG [...] rounding during day shift and q2h during maintenance mechanic 2nd shift. Answer call light i n person and/or [...] cares. 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 Answer call light i n person and/or [...] inhaler at home Electronically signed by: Eder Morejon RRT 04/26/2018 16:07 lan of Care - Talya mcdermott, Madeline Morales RN - 04/26/2018 3:31 AM PSTProblem: Patient Care Overview (Adult) Goal: Care Team Goals & Evaluation PROBLEM-RELATED GOALS: 1. Lvi will remain free from falls/injuires through 04-30-18. [...] rounding during day shift and q2h during maintenance mechanic 2nd shift. Answer call light i n person and/or [...] cares. 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 Answer call light i n person and/or [...] her eq uipment back in". lan of [facility] - Madeline Hollis RN - 04/25/2018 4:18 [...] rounding during day shift and q2h during maintenance mechanic 2nd shift. Answer call light i n person and/or [...] sleep well between ca res. lan of [facility] - Kyle Nichols RRT - 04/24/2018 10:17 [...] rounding during day shift and q2h during maintenance mechanic 2nd shift. Answer call light i n person and/or [...] needed. lan of Care - Mary Cabrera, [facility] - 04/24/2018 1:06 PM PSTDischarge Planning Goal: Pt to be discharged in a safe manner Summary /Intervention: Met with patient to discuss potential discharge needs. Tiny is alert and well oriented, lying in bed. Pt states she lives alone in a single level [facility] in [place]. She appears to be well co nnected with [facility]. She has a nurse, Luis Antonio who visits q . Pt also states she is connected with Meal delivery. States her sister is very supportive, f dkther describes having several friends who "look in on me during the day". She states she typically walks with a cane, she also has a front wheeled walker (which is w ith her in her room). Pt reports that she was in [place] for 22 days, only recently discharged home. Pt hopes to be able to discharge directly home. States her sister will provide transportati on. Plan: CM to follow Anticipate return home with support from [facility]. Keep [facility] updated on her discharge needs Electronically [...] rounding during day shift and q2h during maintenance mechanic 2nd shift. Answer call light i n person and/or [...] rounding during day shift and q2h during maintenance mechanic 2nd shift. Answer call light i n person and/or [...] | | | | | [address] [place] | | | | | | [address] | | | | | | | [...] + +--------+ + + + | EXTRA LAVYANG TOP | Routin | 05/02/2018 | | [...] | | n - | | | 04/23/ | | | 2019 | | | [...] L?MRN: | | | | | | [id number] | | | [id number] | | | riteri | | | [...] | | | [facility] | | | [place] [facility] | | | [facility] | | | alLast | | | | | | Update | | | d: | | | | | | 8 2:00 | | [...] | | | St. | | | [place] | | | y | | | [...] | | | St. | | | [place] | | | y | | | [...] | | | St. | | | [place] | | | y | | | [...] | | | St. | | | [place] | | | y | | | [...] | | | St. | | | [place] | | | y | | | [...] | | | St. | | | [place] | | | y | | | [...] | | | St. | | | [place] | | | y H. | | [...] | | | St. | | | [place] | | | y H. | | [...] | | | St. | | | [place] | | | y H. | | [...] | | | St. | | | [place] | | | y H. | | | [place] | | | [place] | | | [facility] | | | ncy | | | Chief | | | Compla | | | int: | | | ABD | | | PAIN | | | Dec 3, | | | 2018 | | | [facility] | | | [facility] | | | [place] | | | y H. | | [...] | | | St. | | | [place] | | | y H. | | [...] | | | St. | | | [place] | | | y H. | | [...] | | | St. | | | [place] | | | y H. | | [...] | | | St. | | | [place] | | | y H. | | [...] | | | St. | | | [place] | | | y H. | | [...] | | | St. | | | [place] | | | y H. | | [...] | | | ent/f7 | | | [id number] | | | -[id number] | | | [...] ST. | [address] | [place], [place] | [phone] | | [facility] | | [address] | | | - LABORATORY | | [...] eGFR, | 56 (L)Comment: | >=60 | [facility] | | | non- | GLOMERULAR FILTRATION | mL/min/1.73m2 | [facility] | | | [place] | RATE,ESTIMATED | | MEDICAL | | | | mL/min/1.48r3Rjhb than | | CENTER - | | [...] | | | | | mg/dL | [facility] | | | | | | [...] [address] | [place] | [phone] | | [facility] | | [address] | | | - LABORATORY | | [...] | | Lavender | | | [facility] | | | Top Tube | [...] + | [facility] | [address] | [place] | [phone] | | [facility] | | [address] | | | - LABORATORY | | | | + + + + + Magnesium (05/05/2018 5:37 AM PST) + +-------+ + + + | Component | Value | Ref Range | Performed | Pathologist | | | | | At | Signature | + +-------+ + + + | Magnesium | 1.9 | 1.8 - 2.5 mg/dL | [facility] [...] [address] | [place] | [phone] | | [facility] | | [address] | | | - LABORATORY | | [...] non- | GLOMERULAR FILTRATION | mL/min/1.73m2 | [facility] | | | [place] | RATE,ESTIMATED | | MEDICAL | | | | mL/min/1.01k3Onha than | | CENTER - | | [...] [address] | [place] | [phone] | | [facility] | | [address] | | | - LABORATORY | | [...] + | [facility] | [address] | [place], [place] | [phone] | | [facility] | | [address] | | | - LABORATORY | | [...] ST. | [address] | [place], [place] | [phone] | | [facility] | | [address] | | | - LABORATORY | | [...] non- | GLOMERULAR FILTRATION | mL/min/1.73m2 | [facility] | | | [place] | RATE,ESTIMATED | | MEDICAL | | | | mL/min/1.69r8Jrde than | | CENTER - | | [...] [address] | [place] | [phone] | | [facility] | | [address] | | | - LABORATORY | | [...] [address] | [place] | [phone] | | [facility] | | [address] | | | - LABORATORY | | [...] mL/min/1.73m2 | [facility] | | | [place] | RATE,ESTIMATED | | MEDICAL | | | | mL/min/1.11y3Medn than | | CENTER - | | [...] [address] | [place] | [phone] | | [facility] | | [address] | | | - LABORATORY | | [...] | | Monocytes | | K/uL | [facility] | [...] 0.003-0.091 K/uL 0.0-0.9% 2nd 0.007-0.247 K/uL | [facility] | | 0.1-2.0% 3rd 0.018-0.456 K/uL 0.1-2.0% | - LABORATORY | + + + + + + + + | Performing | Address | City/State/Zipcode | Phone Number | | Organization | | | | + + + + + | [facility] | [address] | [place] | [phone] | | [facility] | | [address] | | | - LABORATORY | | [...] [address] | [place] | [phone] | | [facility] | | [address] | | | - LABORATORY | | [...] [address] | [place] | [phone] | | [facility] | | [address] | | | - LABORATORY | | [...] 11 | 7 - 18 mg/dL | [facility] | | | | | | [facility] | | | | | | MEDICAL | | | | | | CENTER - | | | | | | LABORATORY | | + + + + + + | Creatinine | 1.10 | 0.60 - 1.30 | [place] | | | | | mg/dL | [facility] | | | | | | MEDICAL | | | | | | CENTER - | | | | | | LABORATORY | | + + + + + + | eGFR, | 54 (L)Comment: | >=60 | [facility] | | | non- | GLOMERULAR FILTRATION | mL/min/1.73m2 | [facility] | | | [place] | RATE,ESTIMATED | | MEDICAL | | | | mL/min/1.75h9Kkws than | | CENTER - | | [...] [address] | [place] | [phone] | | [facility] | | [address] | | | - LABORATORY | | [...] | | | | EREN NICOLE MD ([id number]) | | | | | | on [...] eGFR, | 52 (L)Comment: | >=60 | [facility] | | | non- | GLOMERULAR FILTRATION | mL/min/1.73m2 | [facility] | | | [place] | RATE,ESTIMATED | | MEDICAL | | | | mL/min/1.40a4Oqri than | | CENTER - | | [...] [address] | [place] | [phone] | | [facility] | | [address] | | | - LABORATORY | | [...] ST. | [address] | [place], [place] | [phone] | | [facility] | | [address] | | | - LABORATORY | | | | + + + + + Folate (05/01/2018 5:45 AM PST) + +-------+ + + + | Component | Value | Ref Range | Performed | Pathologist | | | | | At | Signature | + +-------+ + + + | FOLATE | 7.5 | >5.8 ng/mL | [facility] | | | | [...] [address] | [place] | [phone] | | [facility] | | [address] | | | - LABORATORY | | | | + + + + + Vitamin B-12 (05/01/2018 5:45 AM PST) + + + + + + | Component | Value | Ref Range | Performed | Pathologist | | | | | At | Signature | + + + + + + | VITAMIN | Comment: DEFICIENT: | 180 - 914 pg/mL | [facility] | | | B-12 | <145 | | [facility] | | | | pg/mLINDETERMINATE: | [...] [address] | [place] | [phone] | | [facility] | | [address] | | | - LABORATORY | | [...] | | Basophils | | K/uL | [facility] | | | | [...] ST. | [address] | [place] | [phone] | | [facility] | | [address] | | | - LABORATORY | | [...] [address] | [place] | [phone] | | [facility] | | [address] | | | - LABORATORY | | [...] 13 | 7 - 18 mg/dL | [facility] | | | | | | [facility] | | | | | | MEDICAL | | | | | | CENTER - | | | | | | LABORATORY | | + + + + + + | Creatinine | 1.40 (H) | 0.60 - 1.30 | [facility] | | | | | mg/dL | [facility] | | | | | | MEDICAL | | | | | | CENTER - | | | | | | LABORATORY | | + + + + + + | eGFR, | 41 (L)Comment: | >=60 | [facility] | | | non- | GLOMERULAR FILTRATION | mL/min/1.73m2 | [facility] | | | [place] | RATE,ESTIMATED | | MEDICAL | | | | mL/min/1.79d8Nbpe than | | CENTER - | | [...] [address] | [place] | [phone] | | [facility] | | [address] | | | - LABORATORY | | [...] | | | Reticulocyt | | | [facility] | | | e Count | | | MEDICAL | | | | | | CENTER - | | | | | | LABORATORY | | + + + + + + | Absolute | 0.0630 | 0.0164 - 0.0776 | [facility] | | | Reticulocyt | | M/uL | [facility] | | | e Count | | | MEDICAL | | | | | | CENTER - | | | | | | LABORATORY | | + + + + + + | Immature | 17.10 (H)Comment: Values | 2.30 - 15.90 % | [facility] | | | Reticulocyt | above normal range | | . [facility] | | | e Fraction | [...] [address] | [place] | [phone] | | [facility] | | [address] | | | - LABORATORY | | | | + + + + + Ferritin (04/29/2018 7:31 AM PST) + +-------+ + + + | Component | Value | Ref Range | Performed | Pathologist | | | | | At | Signature | + +-------+ + + + | FERRITIN | 57 | 11 - 307 ng/mL | [facility] | | | | | [...] [address] | [place] | [phone] | | [facility] | | [address] | | | - LABORATORY | | [...] + | [facility] | [address] | [place] | [phone] | | [facility] | | [address] | | | - LABORATORY | | [...] mL/min/1.73m2 | [facility] | | | [place] | RATE,ESTIMATED | | MEDICAL | | | | mL/min/1.67b8Zccj than | | CENTER - | | [...] [address] | [place] | [phone] | | [facility] | | [address] | | | - LABORATORY | | | | + + + + + Magnesium (04/28/2018 6:07 AM PST) + +-------+ + + + | Component | Value | Ref Range | Performed | Pathologist | | | | | At | Signature | + +-------+ + + + | Magnesium | 2.1 | 1.8 - 2.5 mg/dL | [facility] [...] [address] | [place] | [phone] | | [facility] | | [address] | | | - LABORATORY | | [...] 10 | 7 - 18 mg/dL | [facility] | | | | | | [facility] | | | | | | MEDICAL | | | | | | CENTER - | | | | | | LABORATORY | | + + + + + + | Creatinine | 1.20 | 0.60 - 1.30 | [facility] | | | | | mg/dL | [facility] | | | | | | MEDICAL | | | | | | CENTER - | | | | | | LABORATORY | | + + + + + + | eGFR, | 49 (L)Comment: | >=60 | [facility] | | | non- | GLOMERULAR FILTRATION | mL/min/1.73m2 | [facility] | | | [place] | RATE,ESTIMATED | | MEDICAL | | | | mL/min/1.19m6Tiiu than | | CENTER - | | [...] [address] | [place] | [phone] | | [facility] | | [address] | | | - LABORATORY | | [...] + | [facility] | [address] | [place] | [phone] | | [facility] | | [address] | | | - LABORATORY | | [...] [address] | [place] | [phone] | | [facility] | | [address] | | | - LABORATORY | | [...] 8 | 7 - 18 mg/dL | [facility] | | | | | | [facility] | | | | | | MEDICAL | | | | | | CENTER - | | | | | | LABORATORY | | + + + + + + | Creatinine | 1.11 | 0.60 - 1.30 | [facility] | | | | | mg/dL | [facility] | | | | | | MEDICAL | | | | | | CENTER - | | | | | | LABORATORY | | + + + + + + | eGFR, | 54 (L)Comment: | >=60 | [facility] | | | non- | GLOMERULAR FILTRATION | mL/min/1.73m2 | [facility] | | | [place] | RATE,ESTIMATED | | MEDICAL | | | | mL/min/1.70a0Qjjm than | | CENTER - | | [...] + | [facility] | [address] | [place] | [phone] | | [facility] | | [address] | | | - LABORATORY | | [...] ST. | [address] | [place] | [phone] | | [facility] | | [address] | | | - LABORATORY | | [...] + | [facility] | [address] | [place] | [phone] | | [facility] | | [address] | | | - LABORATORY | | [...] mL/min/1.73m2 | [facility] | | | [place] | RATE,ESTIMATED | | MEDICAL | | | | mL/min/1.29j4Oxdn than | | CENTER - | | [...] ST. | [address] | [place], [place] | [phone] | | [facility] | | [address] | | | - LABORATORY | | [...] [address] | [place] | [phone] | | [facility] | | [address] | | | - LABORATORY | | | | + + + + + Farncisca SOLIMAN (04/25/2018 5:56 AM PST) + + + [...] [address] | [place] | [phone] | | [facility] | | [address] | | | - LABORATORY | | [...] | | Direct | | mg/dl | [facility] | | | | | [...] [address] | [place] | [phone] | | [facility] | | [address] | | | - LABORATORY | | | | + + + + + Magnesium (04/25/2018 5:56 AM PST) + +-------+ + + + | Component | Value | Ref Range | Performed | Pathologist | | | | | At | Signature | + +-------+ + + + | Magnesium | 1.8 | 1.8 - 2.5 mg/dL | [facility] [...] + | [facility] | [address] | [place] | [phone] | | [facility] | | [address] | | | - LABORATORY | | [...] (L) | 7 - 18 mg/dL | [facility] | | | | [...] mL/min/1.73m2 | [facility] | | | [place] | RATE,ESTIMATED | | MEDICAL | | | | mL/min/1.27r7Ernv than | | CENTER - | | [...] [address] | [place] | [phone] | | [facility] | | [address] | | | - LABORATORY | | [...] | 0.00 | 0.00 - 0.01 | [facility] | | | Missy | | K/uL | [facility] | [...] [address] | [place] | [phone] | | [facility] | | [address] | | | - LABORATORY | | [...] + | [facility] | [address] | [place] | [phone] | | [facility] | | [address] | | | - LABORATORY | | [...] mL/min/1.73m2 | [facility] | | | [place] | RATE,ESTIMATED | | MEDICAL | | | | mL/min/1.20a4Hmjb than | | CENTER - | | [...] [address] | [place] | [phone] | | [facility] | | [address] | | | - LABORATORY | | [...] | | | | | | [employer] [place] [employer] | | | | | [...] [address] | [place] | [phone] | | [facility] | | [address] | | | - LABORATORY | | | | + + + + + B Type Natriuretic Peptide (04/24/2018 12:17 PM PST) + +---------+ + + + | Component | Value | Ref Range | Performed | Pathologist | | | | | At | Signature | + +---------+ + + + | BNP | 498 (H) | <100 pg/mL | [facility] | [...] + | [facility] | [address] | [place] | [phone] | | [facility] | | [address] | | | - LABORATORY | | [...] [address] | [place] | [phone] | | [facility] | | [address] | | | - LABORATORY | | [...] mL/min/1.73m2 | [facility] | | | [place] | RATE,ESTIMATED | | MEDICAL | | | | mL/min/1.80b4Usvz than | | CENTER - | | [...] [address] | [place] | [phone] | | [facility] | | [address] | | | - LABORATORY | | [...] | | Ranges:0.00-0.06 = | | [facility] | | | | NORMAL>0.06 = | [...] | | | | | | [employer] | | | | | [...] [address] | [place] | [phone] | | [facility] | | [address] | | | - LABORATORY | | [...] | | | | | | [employer] | | | | | [...] [address] | [place] | [phone] | | [facility] | | [address] | | | - LABORATORY | | [...] | | | | EREN NICOLE MD ([id number]) | | | | | | on [...] + | [facility] | [address] | [place] | [phone] | | [facility] | | [address] | | | - LABORATORY | | [...] + | [facility] | [address] | [place] | [phone] | | [facility] | | [address] | | | - LABORATORY | | [...] | | | | | mg/dL | [facility] | | | | | | MEDICAL | | | | | | CENTER - | | | | | | LABORATORY | | + + + + + + | eGFR, | >60Comment: GLOMERULAR | >=60 | [facility] | | | non- | FILTRATION | mL/min/1.73m2 | [facility] | | | [place] | RATE,ESTIMATED | | MEDICAL | | | | mL/min/1.70j4Cqln than | | CENTER - | | [...] | | | | | mg/dL | [facility] | | | | | | [...] [address] | [place] | [phone] | | [facility] | | [address] | | | - LABORATORY | | [...] + + | MAINOR SENA. | [address] | [place] | [phone] | | [facility] | | [address] | | | - LABORATORY | | [...] [address] | [place] | [phone] | | [facility] | | [address] | | | - LABORATORY | | [...] + | [facility] [facility] | [address] | [place] | [phone] | | [facility] | | [address] | | | - LABORATORY | | | | + + + + + B Type Natriuretic Peptide (04/23/2018 1:12 PM PST) + +---------+ + + + | Component | Value | Ref Range | Performed | Pathologist | | | | | At | Signature | + +---------+ + + + | BNP | 340 (H) | <100 pg/mL | [facility] | | | | | [...] [address] | [place] | [phone] | | [facility] | | [address] | | | - LABORATORY | | [...] + | [facility] | [address] | [place] | [phone] | | [facility] | | [address] | | | - LABORATORY | | [...] | | | | | | [employer] | | | | | [...] + | [facility] | [address] | [place] | [phone] | | [facility] | | [address] | | | - LABORATORY | | [...] eGFR, | 53 (L)Comment: | >=60 | [facility] | | | non- | GLOMERULAR FILTRATION | mL/min/1.73m2 | [facility] | | | [place] | RATE,ESTIMATED | | MEDICAL | | | | mL/min/1.94e2Roos than | | CENTER - | | [...] + | [facility] | [address] | [place] | [phone] | | [facility] | | [address] | | | - LABORATORY | | [...] | | Monocytes | | K/uL | [facility] | [...] ranges: Trim. Absolute (K/uL) Percentage (%) | [facility] | | 1st 0.003-0.091 K/uL 0.0-0.9% 2nd 0.007-0.247 K/uL | [facility] | | 0.1-2.0% 3rd 0.018-0.456 K/uL 0.1-2.0% | - LABORATORY | + + + + + + + + | Performing | Address | City/State/Zipcode | Phone Number | | Organization | | | | + + + + + | [facility] | [address] | [place] | [phone] | | [facility] | | [address] | | | - LABORATORY | | [...] | | | | EREN NICOLE MD ([id number]) | | | | | | on [...] + + | Coronary artery disease involving tolowa dee-ni' coronary artery, angina presence unspecified, | | unspecified whether tolowa dee-ni' or transplanted heart | + + | [...] 19 3:28 | | | | | Thu04/23/18 at 1510, For 1 dose | | [...] | | | | PRN, Pain, Starting [facility] 04/29/18 | | AM PST | | [...] +---+---+ + +-------+ +--------+---+---+ | potassium chloride (Virgie | Given | 05/04/19 | 40 mEq [...] +---+---+ + +-------+ +--------+---+---+ | potassium chloride (Osito-Frederick | Given | 05/04/19 | 40 mEq [...]
--- OUTSIDE RECORDS SUMMARY | ~2019-12-07 | XMS | Encounter Summary ---
Demographics + + + | Address | [address] | | | [place] [address] | + + + | Home Phone [...] Team Providers + +------+ + | Care Lambskin Trimmer Name | Role | Phone | + [...] (cirrhosis | PA-C [address] | [address], | | | | | of liver) | [address] | [address] | | | | | (HCC) | Ari | [place], | | | | | Procedures | [address] | [place] [address] | | | | | office visit | [place], | Phone: | | | | | | [place] | [phone] | | | | | | [address] | Fax: | | | | | | Phone: | [phone] | | | | | | [phone] | | | | | | | Fax: | | | | | | | [phone] | | +--------+--------+ + + + + Encounter Details +--------+---------+ + + + | Date | Type | Department | Care Team | Description | +--------+---------+ + + + | 07/07/ | Office | [facility] | [facility], | Alcoholic cirrhosis | | 2019 | Visit | GASTROENTEROLOGY | FRANK Oconnor [address] | of liver without | | | | [address] [place] | [address] | ascites (HCC) | | | | [address] [place], [place] | [place], [place] | (Primary Dx); | | | | [address] | [address] | Anemia, unspecified | | | | [phone] | | type; Hypokalemia; | | | [...] transpl antation evaluation. Urine test done at [facility] every other week. Labs to be done [...] was initially seen in the ED in [facility] for abdominal pain and swelling 2017. She went home and was readmitted to the hospital 03/2018. She was then hospitalized in [place]. She was was hospitalized for 22 days. She was then readmitted to the hospital here at [facility] 04/23/2018. She was admitted from 04/23 [...] Procedure: EGD; Surgeon: Keaton Wakefield MD; Location: [facility] Family History Family history [...] call once she has been evaluated by outbound sales representative. Will need to schedule EGD and colonoscopy [...] AFP every 6 months. 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 Cc: Julita Cabrla PA-C This note was dictated using voice recognition software. Please contact me if there are an y questions regarding its content. documented in t his encounter Plan of Treatment +--------+---------+ + + + | Date | Type | Specialty | Care Team | Description | +--------+---------+ + + + | 12/14/ | Office | Otolaryngology | Jose Riojas MD | | | 2020 | Visit | | [address] [place] | | | | | | [address] [place] | | | | | | [address] | | | | | | | [...]
--- OUTSIDE RECORDS SUMMARY | ~2019-12-07 | XMS | Encounter Summary ---
Demographics + + + | Address | [address] | | | [place] [address] | + + + | Home Phone [...] Team Providers + +------+ + | Care Attending Physician Name | Role | Phone | + [...] + + | 01/31/ | Telephone | [facility] | Jose Riojas MD | Procedure; | | 2018 | | OTOLARYNGOLOGY 301 | [address] [place] [address] | Appointment | | | | [address] [facility] [address] | [address] [place] | | | | | [place] | [address] | | | | | [address] | | | | | | [phone] | | | +--------+ + + + [...] encounter. elep milagros Encounter - Cindy Doran, Water Pumper - 05/17/2019 12:46 PM PSTPlease call patient to have er see since she has no showed and cancelled so many times for surg mary. Telephone Encounter - Iveth Chappell - 05/12/2019 7:38 AM PSTReferral is now approved, d o you want us to call her to schedule or wait for her to call us. elephone Encounter - Cindy Doran Water Pumper - 04/06/2019 1:20 PM PSTReferral still pending elephone Encounter - Cindy Doran Water Pumper - 03/24/2019 2:14 PM PSTReferral still pending. elephone Encounter - Iveth Stringer - 02/17/2019 8:23 AM PSTPatient called in to schedule surgery, I advised her that we were working on getting authorization for her surgery. I told her to wait for our ph one call. Her phone number has been updated again. elephone Encounter - Cindy Doran, Water Pumper - 05/2018 2:14 PM PSTChecking on Auth with Jewel then I will call the patient to schedule. El ectronically signed by Cindy Doran Water Pumper at 02/15/2019 2:15 PM PSTTeleph one Encounter [...] Please advise and call her back at [phone] signed by Pau panda at 02/04/2019 8:18 AM PSTTelephone Encounter - Cindy Doran, Water Pumper - 2:29 PM PSTCalled and left message [...] from 09/20/18). Please call her back at [phone] signed by Su Goodwin at 02/03/2019 2:08 PM PSTTelephone Encounter - Iveth Chappell - 01/31/2019 1:06 PM PSTPati ent called in to cancel her procedure, she said that she is so sick and stuffed up she just doesn't think she can make it in. She asked that her call her back on her "neighbors" or her brother in law at [phone]. She said her phone was disconnected by [employer] because nuzhat willett hacked in. document ed in this encounter Plan of Treatment +--------+---------+ + + + | Date | Type | Specialty | Care Team | Description | +--------+---------+ + + + | 12/14/ | Office | Otolaryngology | Jose Riojas MD | | | 2019 | Visit | | [address] | | | | | | [address] [place] | | | | | | [id number] | | | | | | | | +--------+---------+ + + + documented as of this encounter Visit Diagnoses Not on filedocumented in this encounter
--- OUTSIDE RECORDS SUMMARY | ~2019-12-07 | XMS | Encounter Summary ---
Demographics + + + | Address | [address] | | | [place] [address] | + + + | Home Phone [...] + + | Author | [facility] | | | and [place] | + + + | Organization | [facility] | | [...] Team Providers + +------+ + | Care Configuration Management Consultant Name | Role | Phone | [...] | | | | [address] [facility] | Katie Moore | | | | | [address] [place] | [place] [address] | | | | | [address] | | | | | | [phone] | | | +--------+ + + + [...] [place] | | | | | | [id number] | | | | | | | [...]
--- OUTSIDE RECORDS SUMMARY | ~2019-12-07 | XMS | Encounter Summary ---
Demographics + + + | Address | [address] | | | [place] [address] | + + + | Home Phone [...] Author + + + | Author | [facility] | | | and [place] | + + + | Organization | [facility] | | | [...] Team Providers + +------+ + | Care Cage Maker Machine Name | Role | Phone | + [...] + + | 03/15/ | Telephone | [facility] | Jose Riojas MD | Appointment | | 2018 | | OTOLARYNGOLOGY 301 | [address] [place] [address] | | | | | W [facility] 210 | [address] [place] | | | | | [place] | [address] | | | | | [address] | | | | | | [phone] | | | +--------+ + + + [...] an apt with Dr. Riojas for the and 2:30 or 3:30; returned her call back and LVM th ose times are no longer available, asked her to call us back to arrange a time. I call Yesica remy at [facility] and asked her to send over a [...] [place] | | | | | | [id number] | | | | | | | | +--------+---------+ + + + documented as of this encounter Visit Diagnoses Not on filedocumented in this encounter"
--- OUTSIDE RECORDS SUMMARY | ~2019-12-07 | XMS | Clinical Summary ---
Demographics + + + | Address | [address] | | | [place] [address] | + + + | Home Phone [...] Team Providers + +------+ + | Care Can Sealer Name | Role | Phone | + [...] +---------+------+------+-------+ | Polyethylene | Take by mouth Daily | | 0 | | | Activ | | Glycol powder | as needed . | | | | | e | + + + +---------+------+------+-------+ | lactulose 10 g/15 | Take 30 mLs by mouth | 1892 mL | 2 | 04/ | | Activ | | mL solution | 3 times daily. | | | 07/03 | | e | | | | | | 19 | | | + + + +---------+------+------+-------+ +---+ + | | Additional | | | InformationPatient | | | taking differently: | | | 20 g Oral 2 TIMES | | | DAILY, Reason: Not | | | Available, Reported | | | on 11/28/2019 11:59 | | | AM | +---+ + + + +--------+---+------+------+-------+ | pseudoePHEDrine | Take 30 mg by mouth | | 0 | | | Activ | | (SUDAFED) 30 mg | every 4 hours as | | | | | e | | tablet | needed for | | | | | | | | Congestion. | | | | | | + + +--------+---+------+------+-------+ | | Take 1-2 tablets by | 12 | 0 | 11/14 | | Activ | | HYDROcodone-acetamin | mouth every 4 hours | tablet | | 5/20 | | e | | ophen (NORCO) 5-325 | as needed for Pain. | | | 20 | | | | mg per tablet | | | | | | | + + +--------+---+------+------+-------+ | metoclopramide | Take 10 mg by mouth | | 0 | | 11/14 | Disco | | (REGLAN) 10 mg | 4 times daily as | | | | 4/20 | ntinu | | tablet | needed for Nausea or | | | | 20 | ed | | | Vomiting. | | | | | (Erro | | | | | | | | r) | + + +--------+---+------+------+-------+ | potassium chloride | Take 2 tablets by | 60 | 1 | 02/2 | 11/14 | Disco | | (KLOR-CON M20) 20 | mouth Daily. | tablet | | 1/20 | 4/20 | ntinu | | mEq ER tablet | | | | 19 | 20 | ed | | | | | | | | (Erro | | | | | | | | r) | + + +--------+---+------+------+-------+ Active Problems + + + | Problem | Noted Date | + + + | Deviated nasal septum | 07/08/2018 | + + + | Hypertrophy of nasal turbinates | 07/08/2018 | + + + | Neoplasm of uncertain behavior of skin | 07/08/2018 | + + + | SHARRON (obstructive sleep apnea) | 07/08/2018 | + + + + + | Overview: Intolerant of CPAP | + + + + + | Asthma, moderate persistent | 07/07/2018 | + + + | Cirrhosis | 07/07/2018 | + + + + + | Overview: Overview: Complicated by LE edema, not on lasix | | prior to admission (unclear why) | + + + + + | Diabetes mellitus type II, NON insulin dependent | 07/07/2018 | + + + + + | Overview: Overview: | | Diet controlled, previously required insulin and sitagliptin | + + + + + | Anasarca | 04/23/2018 | + + + | Acute abdominal pain | 03/18/2018 | + + + | Acute cholecystitis | 03/18/2018 | + + + | Alcohol abuse | 03/18/2018 | + + + | GERD (gastroesophageal reflux disease) | 03/18/2018 | + + + | Iron deficiency anemia | 03/18/2018 | + + + | Systolic murmur | 03/18/2018 | + + + | Nausea and [...] | Overview: Note: Unchanged | + + + +---+ | Obesity, Class II, BMI 35-39.9 | | + +---+ | HTN (hypertension) | | + +---+ | Marijuana use | | + +---+ | PCOS (polycystic ovarian syndrome) | | + +---+ + + | Overview: Not on METFORMIN | + + Encounters +--------+ + + + + | Date | Type | Specialty | Care Team | Description | +--------+ + + + + | 11/29/ | Office | Otolaryngology | Jose Riojas [...] skin | +--------+ + + + + | 11/28/ | Anesthesia | | Brandon Rosario | | | 2019 | Event | | DO Eder | | +--------+ + + + + | 11/28/ | Surgery | | Jose Riojas MD | Septoplasty with | | 2019 | | | | bilateral inferior | | | | | | turbinoplasties; | | | | | | Removal of right | | | | | | upper eyelid growth | +--------+ + + + + | 11/28/ | Hospital | | Jose Riojas MD | Deviated nasal | | 2019 | Encounter | | | septum; Hypertrophy | | | | | | of nasal turbinates; | | | | | | Neoplasm of | | | | | | uncertain behavior | | | | | | of skin | +--------+ + + + + | 11/22/ | Telephone | Otolaryngology | Jose Riojas MD | Procedure (surgery | | 2019 | | | | time ) | +--------+ + + + + | 11/21/ | Orders Only | Otolaryngology | Jose Riojas MD | Deviated nasal | | 2019 | | | | septum (Primary Dx); | | | | | | Obstructive sleep | | | | | | apnea (adult) | | | | | | (pediatric); | | | | | | Hypertrophy of nasal | | | | | | turbinates | +--------+ + + + + | 10/23/ | Telephone | Otolaryngology | Jose Riojas MD | Insurance | | 2019 | | | | Authorization | | | | | | (surgery ) | +--------+ + + + + [...] Temperature | 36.7 C (98.1 F) | 11/30/2019 1:39 PM | | | | | PDT | | + + + + + | Respiratory Rate | 18 | 11/30/2019 1:39 PM | | | | | PDT | | + + + + + | Oxygen Saturation | 99% | 11/29/2019 11:00 AM | | | | | PDT | | + + + + + | Inhaled Oxygen | - | - | | | Concentration | | | | + + + + + | Weight | 127.5 kg (281 lb) | 11/30/2019 1:39 PM | | | | | PDT | | + + + + + | Height | 175.3 cm (5' 9") | 11/30/2019 1:39 PM | | | | | PDT | | + + + + + | Body Mass Index | 41.5 | 11/30/2019 1:39 PM | | | | | PDT | | + + + + + Plan of Treatment +--------+---------+ + + + | Date | Type | Specialty | Care Team | Description | +--------+---------+ + + + | 12/14/ | Office | Otolaryngology | Jose Riojas MD | | | 2020 | Visit | | [address] | | | | | | [address] [place] | | | | | | [address] | | | | | | | | +--------+---------+ + + + + + + + + | Health [...] results section. | + +--------+ +---+ + from Last 3 Months Results Anesthesia Airway Note (11/29/2019 8:19 AM [...] | documentation. | | + + + POCT Test, Urine, QUAL (11/29/2019 8:17 AM [...] | | | [facility] | | | [place], | | | [facility] | | | [...] LABORATORY | | | | | | [place]HEL | | + + + + + + + + | Specimen | + + | Urine | + + + + + + + | Performing | Address | City/State/Zipcode | Phone Number | | Organization | | | | + + + + + | [facility] | [address] | [place] [address] | | | [facility] | | | | | LABORATORY [place]ACHEL | | | | + + + + + Coronavirus (COVID-19) NAAT (11/29/2019 7:04 AM PDT) + + + [...] | CENTER - | | | | Occasion ID NOW Platform, | | LABORATORY | [...] | [address] | [place] | [phone] | | [facility] | | [address] | | | - LABORATORY | | | | + + + + + from Last 3 [...] +---------+--------+ | [place] | MEDICA | [id number] | 04/16/19 | [phone] | | Medica | | | ID [place] | | 19-Pre | 2 | | id | | | PLUS | | sent | | | | + +--------+ +--------+ +---------+--------+ | [facility] | IHS | [phone] | | | | Indemn | | SERVICE | YELLOW | | 976-Pr | | | ity | | | HAWK | | esent | | | | + +--------+ +--------+ +---------+--------+ | [place] | MEDICA | [id number] | | [phone] | | Medica | | | ID [place] | | 019-Pr | 2 | | id | | | PLUS | | esent | | | | + +--------+ +--------+ +---------+--------+ | [facility] | IHS | [phone] | 03/16/19 | | | Indemn | [...] | | al/Fam | | 1975 | [phone] | [place], [place] | | | [place] | | | 9 (Home) | [address] | + +--------+ +--------+ + + | Tiny Campuzano | Person | Self | [birth year] | [address] | | | al/Fam | | 1975 | [phone] | [place], [place] | | | [place] | | | 9 ([place]) | [address] | + +--------+ +--------+ + + Advance Directives + + + + + | Type | Date Recorded | Patient | Explanation | | | | Netting Inspector | | + + + + + | Power of | | | | | Car Examiner | | | | + + + + + | Advance | 04/17/2015 10:06 | | | | Directive | AM | | | + + + + + + + + + + | Code Status | Date | Date | Comments | | | Activated | Inactivated | | + + + + + | Full Code | 11/29/2019 | 11/29/2019 | | | | 9:51 AM | 1:36 PM | | + + + + + + + + +---+ | | | | | + + + +---+ | Full Code | 04/23/2018 | 05/06/2018 | | | | 8:41 PM | 6:14 PM | | + + + +---+
--- OUTSIDE RECORDS SUMMARY | ~2019-12-07 | XMS | Encounter Summary ---
Demographics + + + | Address | [address] | | | [place] [address] | + + + | Home Phone [...] Team Providers + +------+ + | Care Help Desk Technician Name | Role | Phone | [...] | | vomiting, | | [address], | | | | | vomiting of | | [address] | | | | | unspecified | | [place], | | | | | type | | [place] [address] | | | | | Aspiration | | Phone: | | | | | pneumonia | | [phone] | | | | | due to | | Fax: | | | | | gastric | | [phone] | | | | | secretions | [...] + + | 04/17/ | Surgery | [facility] | Keaton Wakefield MD | EGD | | 2016 | | MED CTR MP INTRA OP | [address], [place] | | | | | [address] | [address] [place] | | | | | [place], [place] | [address] | | | | | [address] | | | | | | [phone] | | | +--------+---------+ + + + [...] and well-nourished. No distress. Morbid obesity B VA 49.4 HENT: Head: Normocephalic and atraumatic. Right [...] normal. Nursing note and vitals reviewed. 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 documented in [...] edation Documentation - Rosy Patel RN - 12:11 PM PSTPatient intubated safetly by Dr Gan. documented in this encounter Plan of Treatment +--------+---------+ + + + | Date | Type | Specialty | Care Team | Description | +--------+---------+ + + + | 12/14/ | Office | Otolaryngology | Jose Riojas MD | | | 2020 | Visit | | [address] [place] | | | | | | [address] [place] | | | | | | [address] [...] secretions | | | | | | ([facility]) Morbid | | | | | | [...] | [facility] | | GastroenterologyPatient Name: Tiny Greycedjuan a Date: | PROVATION | | 04/17/2015 12:31 PMMRN: [id number] #: [id number] of : | | | 1975Admit Type: AmbulatoryAge: 39Room: [facility] 01Gender: FemaleNote | | | Status: [...] physician, the nurse, the anesthesiologist and the heavy line technician | | | in the procedure [...] 0Note Initiated On: 04/17/2015 12:31 PM [facility]. | | | [facility], [address] [place] [address] | | | [phone] | | | - The retroflexed view [...] On: 04/17/2015 12:31 PM | | | [facility], [facility] [address] [place], [place] | | | [address] | | + + -+ + +---------+ [...] [address] | [place] | [phone] | | [facility] | | [address] | | | - LABORATORY | | [...] [address] | [place] | [phone] | | [facility] | | [address] | | | - LABORATORY | | [...] | | Cells | | M/uL | ROSY | | | | | [...] + | [address] | [address] | [place], [place] | [phone] | | [facility] | | [address] | | | - LABORATORY | | [...] | 1.010, 1.015, | | | | [place], | | 1.020, 1.025 | | | | POC | | | | | + + + + + + | Internal QC | Acceptable | | | | + + + + + + | Lot Number | [id number] | | | | + + + [...] measuring from <0.1-0.4 cm, all in (A1). ka:JVR:[facility] | | | PERFORMING LABORATORY: Tissue processing and slide preparation were | | | performed by [employer], [address] [place] [address], [facility] | | | [place] [address] (Brick Machine Operator: Reilly Thomas M.D. CLIA#: | | | [id number]). Professional interpretation was performed by [employer] | | | [employer], [facility], [facility], [place] [address] | | | (Brick Machine Operator: Reilly Thomas M.D.; CLIA#: [id number]). | | | Diagnostician: Daniel Briscoe MD [...] PM PST | | | | | jacqueline graves, | | | | | | + +-------+ +------+---+---+ +---+---+ | | | +---+---+ documented in this encounter
--- OUTSIDE RECORDS SUMMARY | ~2019-12-07 | XMS | Encounter Summary ---
Demographics + + + | Address | [address] | | | [place] [address] | + + + | Home Phone [...] Team Providers + +------+ + | Care Pharmacist Intern Name | Role | Phone | + +------+ + | Keaton Wade MD | PCP | | + +------+ + Encounter Details +--------+ + + + + | Date | Type | Department | Care Team | Description | +--------+ + + + + | 11/21/ | Orders Only | [facility] | Jose Riojas MD | Deviated nasal | | 2019 | | OTOLARYNGOLOGY | [address] | septum (Primary Dx); | | | | SERVICES [address] | [address] [place] | Obstructive sleep | | | | [address] [facility] | [address] | apnea (adult) | | | | [place] [address] | | (pediatric); | | | | [phone] | | Hypertrophy of nasal | | | | | | turbinates | +--------+ + + + + Social [...] | Visit | | [address] | | | | | | [address] [place] | | | | | | [id number] | | | | | | | | +--------+---------+ + + + + + +--------+ + + | Name | Type | Priori | Associated Diagnoses | Order Schedule | | | | ty | | | + + +--------+ + + | Coronavirus | Microbiolog | Routin | Deviated nasal | 1 Occurrences | | (COVID-19) NAAT | y | e | septum Obstructive | starting 11/23/2019 | | | | | sleep apnea (adult) | until 11/21/2020 | | | | | (pediatric) | | | | | | Hypertrophy of nasal | | | | | | turbinates | | + + +--------+ + + documented as of this encounter Visit Diagnoses + + | Diagnosis | + + | Deviated nasal septum - Primary | + + | Obstructive sleep apnea (adult) (pediatric) | + + | Hypertrophy of nasal turbinates | + + documented in this encounter"
--- OUTSIDE RECORDS SUMMARY | ~2019-12-07 | XMS | Encounter Summary ---
Demographics + + + | Address | [address] | | | [place] [address] | + + + | Home Phone [...] + + + | Author | [facility] | | | and [place] | + + + | Organization | [facility] | | | and [...] Team Providers + +------+ + | Care Certified Ophthalmic Assistant Name | Role | Phone | + +------+ + | Keaton Wade MD | PCP | | + +------+ + Reason for Visit +---------+ + | Reason | Comments | +---------+ + | Post Op | nsoe surgery | +---------+ + Encounter Details +--------+---------+ + + + | Date | Type | Department | Care Team | Description | +--------+---------+ + + + | 11/29/ | Office | [facility] | Jose Riojas MD | Deviated nasal | | 2020 | Visit | OTOLARYNGOLOGY | [address] | septum (Primary Dx); | | | | SERVICES [address] | [address] [address] | Hypertrophy of | | | | [address] | [address] | nasal turbinates; | | | | [place] [address] | | Neoplasm of | | | | [phone] | | uncertain behavior | | | | | | of skin | +--------+---------+ + + + Social History [...] + documented in this encounter Progress Notes Jose Riojas MD - 11/30/2019 1:45 PM PDTPostop septoplasty and inferior turbinoplasties and also removal of a lesion on her right upper eyelid. She comes in for packing removal. Examination: Patient has packing in both nasal passages and with use of Damion-Synephrine and topical Xylocaine the nose was alternatively suctioned and then sprayed. When she could jason athe well through both nasal passages she was given instructions on care of her nose over next 2 weeks. Impression: Postop septoplasty and inferior turbinoplasty. Plan: Patient will be re-seen again in 2 weeks time. documented in this encounter Plan of Treatment +--------+---------+ + + + | Date | Type | Specialty | Care Team | Description | +--------+---------+ + + + | 12/14/ | Office | Otolaryngology | Jose Riojas MD | | | 2019 | Visit | | [address] | | | | | | [address] [place] | | | | | | [address] | | | | | | | [...]
--- OUTSIDE RECORDS SUMMARY | ~2019-12-07 | XMS | Encounter Summary ---
Demographics + + + | Address | [address] | | | [place] [address] | + + + | Home Phone [...] Team Providers + +------+ + | Care Coat Maker Name | Role | Phone | [...] unspecified | [address] | [address], | | | | | Nausea with | [place], [place] | [address] | | | | | vomiting, | [address] [place] | [place], | | | | | unspecified | [place], [place] | [place] [address] | | | | | Opioid | [address] | Phone: | | | | | dependence, | Phone: | [phone] | | | | | uncomplicate | [phone] | Fax: | | | | | d (HCC) | Fax: | [phone] | | | | | Pneumonitis | [phone] | | | | | | due to | | | | | | | inhalation | | | | | | | of food and | | | | | | | vomit (HCC) | | | | | | | Procedures | | | | | | | RI | | | | | | | ESOPHAGOGAST | | | | | | | RODUODENOSCO | | | | | | | PY TRANSORAL | | | | | | | DIAGNOSTIC | | | | | | | RI EDG | | | | | | | TRANSORAL | | | | | | | BIOPSY | | | | | | | SINGLE/MULTI | | | | | | | PLE RI | | | | | | | [...] | | | | | 03/12>PEND | [place], | [address] | | | | | AUTH | [place] | Phone: | | | | | Office visit | [address] | [phone] | | | | | | Phone: | Fax: | | | | | | [phone] | [phone] | | | | | | Fax: | | | | | | | [phone] | | +--------+--------+ + + + + Encounter Details +--------+---------+ + + + | Date | Type | Department | Care Team | Description | +--------+---------+ + + + | 04/05/ | Office | [facility] [place] | Keaton Wakefield MD | Dysphagia, | | 2016 | Visit | GASTROENTEROLOGY | [address], [place] | unspecified | | | | [address] [place] | [address] [place] | dysphagia; Opioid | | | | 210 [place], [place] | [address] | type dependence, | | | | [address] | | continuous (HCC); | | | | [phone] | | Nausea and vomiting, | | [...] normal. Nursing note and vitals reviewed. 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 documented in [...] [place] | | | | | | [address] | | | | | | | | +--------+---------+ + + + + + +--------+ + + | Name | Type | Priori | Associated Diagnoses | Order Schedule | | | | ty | | | + + +--------+ + + | Procedure | Outpatient | Routin | Nausea and | Expected: 04/17/2015 | | [id number] | Referral | e | vomiting Morbid [...]
--- OUTSIDE RECORDS SUMMARY | ~2019-12-07 | XMS | Encounter Summary ---
Demographics + + + | Address | [address] | | | [place] [address] | + + + | Home Phone [...] Team Providers + +------+ + | Care Oracle Technical Architect Name | Role | Phone | [...] | | | [address] | [address] Phone: | | | | | | [place], | [phone] | | | | | | [place] | Fax: | | | | | | [address] | [phone] | | | | | | Phone: | | | | | | | [phone] | | | | | | | Fax: | | | | | | | [phone] | | +--------+--------+ + + + + [...] | Hypertrophy of | | | | [place], [place] | [address] | nasal turbinates; | | | | [address] | | Neoplasm of | | | | [phone] | | uncertain behavior | | | [...] Procedure: EGD; Surgeon: Keaton Wakefield MD; Location: [facility] MEDICAL PROCEDURE UNIT SOCIAL HISTORY: The [...] 2020 | Visit | | [address] [facility] [address] | | | | | | [address] [place] | | | | | | [address] | | | | | | | [...]
--- OUTSIDE RECORDS SUMMARY | ~2019-12-07 | XMS | Encounter Summary ---
Demographics + + + | Address | [address] | | | [place] [address] | + + + | Home Phone [...] Team Providers + +------+ + | Care Chicken Sexer Name | Role | Phone | + [...] 2014 | | GASTROENTEROLOGY | [address], [place] | | | | | [address] [place] | [address] [place], [place] | | | | | [address] [place], [place] | [address] | | | | | [address] | | | | | | [phone] | | | +--------+ + + + [...] | Visit | | [address] | | | | | | [address] [place] | | | | | | [address] | | | | | | | [...]
--- OUTSIDE RECORDS SUMMARY | ~2019-12-07 | XMS | Encounter Summary ---
Demographics + + + | Address | [address] | | | [place] [address] | + + + | Home Phone [...] Author + + + | Author | [facility] | | | and [place] | + + + | Organization | [facility] | | | and [place] | + + + | Address | Unknown | + + + | Phone | Unavailable | + + + Support + + +---------+ + | Name | Relationship | Address | Phone | + + +---------+ + | Parisa Reyes | ECON | Unknown | | + + +---------+ + | Sandra rOo | ECON | Unknown | | + + +---------+ + Care Team Providers + +------+ + | Care Websphere Commerce Consultant Name | Role | Phone | [...] | | | Neoplasm of | | [address] Phone: | | | | | uncertain | | [phone] | | | | | behavior of | | Fax: | | | | | skin | | [phone] | | | | | Procedures | | | | | | | [place] EXCISION [...] Description | +--------+---------+ + + + | 11/28/ | Surgery | [facility] | Jose Riojas MD | Septoplasty with | | 2019 | | MED CTR OR INTRA OP | [address] | bilateral inferior | | | | [address] | [address] [place], [place] | turbinoplasties; | | | | [place], [place] | [address] | Removal of right | | | | [address] | | upper eyelid growth | | | | [phone] | | | +--------+---------+ + + + [...] + + + | Blood Pressure | 146/67 | 11/29/2019 6:58 AM | | | | | PDT | | + + + + + | Pulse | 82 | 11/29/2019 6:58 AM | | | | | PDT | | + + + + + | Temperature | 37.5 C (99.5 F) | 11/29/2019 6:58 AM | | | | | PDT | | + + + + + | Respiratory Rate | - | - | | + + + + + | Oxygen Saturation | 99% | 11/29/2019 6:58 AM | | | [...] You can't be awakened Date Last Reviewed: 01/01/201619997957-2565 [employer]. [address] [place] [address], [place] [address]. All righ ts reserved. This information is [...] tablets by | 12 | 0 | 11/28/ | | | HYDROcodone-acetamin | mouth every [...] documented as of this encounter H&P Notes Jose Riojas MD - 11/29/2019 7:45 AM PDT SURGICAL INTERIM HISTORY AND PHYSICAL UPDATE Pt. Name/Age/: Kamilah Ibarra 44 y.o. 1975 Date of admission: 11/29/2019 [...] Jose Riojas MD, 11/29/2019 7:53 AM PDT [facility] Electronically signed by Jose Riojas MD at 11/28 7:53 AM PDTSaint Joseph LondonJose MD - 11/28/2019 9:54 AM PDTFormatting of [...] Procedure: EGD; Surgeon: Hiren Wakefield MD; Location: [facility] MEDICAL PROCEDURE UNIT SOCIAL HISTORY: The patient [...] Riojas MD - 11/29/2019 9:11 AM [address] [address] [id number] OPERATIVE REPORT JOSE RIOJAS MD Patient: KAMILAH IBARRA Admitting: JOSE RIOJAS MR #: [id number] LOC: PT TYPE: Adm Date: 11/29/2019 : [...] anterior tips of the inferior turbinates bilaterally. Fisher elevator was used to disse ct medially [...] Transcribed on 11/29/2019 10:34:30 by vn job# [id number] Confirmation #: [id number] cc: HIREN WADE p Not e - Jose Riojas MD - 11/29/2019 9:06 AM PDTSee dictation #[id number] signed by Jose Riojas MD at 11/29/2019 9:11 AM PDTBrief Op Note - Jose Riojas MD - 11/29/2019 9:05 AM PDT BRIEF OPERATIVE NOTE [facility] Pt. Name/Age/: Kamilah Ibarra 44 y.o. 1975 Med. Record Number: [id number] Date of admission: 11/29/2019 Date of Operation/Procedure: 11/29/2019 Preoperative Diagnosis: * No pre-op diagnosis entered * Postoperative Diagnosis: * Obstructive sleep apnea (adult) (pediatric) [G47.33] * Neoplasm of uncertain behavior of skin [D48.5] Surgeon: Jose Riojas MD Senior Reactor Operator: None Anesthesia Provider(s): Anesthesiologist: Brandon Rosario DO [...] [place] | | | | | | [address] | | | | | | | [...] | | | [facility] | | | [place], | | | [place]ED | | | [...] + + + + + | [facility] NELL[facility] | [address] | [place] [address] | | | [facility] | | | | | LABORATORY CERNER [...] + | [address] | [address] | [place], [place] | [phone] | | [facility] | | [address] | | | - LABORATORY | | [...] AM PDT | | | | | 9/15/20 at 0739, For 1 dose, | | [...] | | | + +---+ + +-------+ + +---+ + | bacitracin topical ointment | Given | 11/29/19 | 1 | | Other | | PRN, Starting 11/29/19 at | | 20 8:25 | Applicat | | (Comment | | 0825, Intra-op | | AM PDT | ion | | ) | + +-------+ + +---+ + +---+---+ | | | +---+---+ + +-------+ +--------+---+ + | cocaine (GOPRELTO) 40 mg/mL | Given | 11/29/19 | 160 mg | | Nare-Bot | | (4%) nasal solution 160 mg 160 | | 20 8:25 | | | h | | mg, Nasal, Prior to Incision, | | AM PDT | | | | | Starting 11/29/19 at 0739, For | | | | | | | 1 dose, For topical use on | | | | | | | pledgets intranasally, Pre-op | | | | | | + +-------+ +--------+---+ + + +---+ | | | + +---+ [...] | | | | | | longer, vxqseu-qrh-obgww use of | | | | | [...] DBP > 100, | | | Starting 11/29/19 at 0856, | | | Hold if HR > 100. Maximum total | | | dose 40 mg. Use labetalol first | | | if available., Recovery/Phase I | | + +---+ | | | + +---+ | HYDROmorphone (DILAUDID) | | | injection 0.2-0.6 mg 0.2-0.6 mg, | | | Intravenous, EVERY 5 MIN PRN, | | | Pain, Starting Thu11/29/19 at | | | 0856, First dose [...] One week or longer, | | | nklcmk-afo-pwaza use of at least | | | [...] DBP > 100, Starting | | | Thu11/29/19 at 0856, Hold if HR < | [...] +--------+-------+---+ +---+---+ | | | +---+---+ + +-------+ +-------+---+ + | lidocaine 1%-EPINEPHrine | Given | 11/29/19 | 6 mLs | | Surgical | | 1:100,000 injection PRN, | | 20 8:25 | | | Site | | Starting 11/29/19 at 0825, | | AM PDT | | | | | Intra-op | | | | | | + +-------+ +-------+---+ + + +---+ | | | + +---+ | meperidine (DEMEROL) injection | | | 12.5-25 mg 12.5-25 mg, | | | Intravenous, PRN, Shivering, | | | Starting 11/29/19 at 0856, For | | | 2 [...] | | | | | Vomiting, Starting 11/29/19 | | | | | | | [...] +---------+---+---+ | phenylephrine (SYEDA-SYNEPHRINE) | Given | 11/29/19 | 1 spray | | | | 0.5% nasal spray PRN, Starting | | 20 8:25 | | | | | 11/29/19 at 0825, Intra-op | | AM PDT | | | | + +-------+ +---------+---+---+ + +---+ | | | + +---+ | sodium chloride 0.9% (NS) | | | infusion at 10-100 mL/hr, | | | Intravenous, CONTINUOUS, Starting | | | 11/29/19 at 0800, TKO. Use | | | this instead of LR if patient is | | | on dialysis., Pre-op | | + +---+ | | | + +---+ documented in this encounter
--- OUTSIDE RECORDS SUMMARY | ~2019-12-07 | XMS | Encounter Summary ---
Demographics + + + | Address | [address] | | | [place] [address] | + + + | Home Phone [...] Team Providers + +------+ + | Care Combination Welder Name | Role | Phone | + [...] | Radiology - | Diagnoses | | [facility] | | | Services | Diagnostic | Alcoholic | [facility], | [facility] | | | Required | Ultrasound | cirrhosis of | [facility] | | | | | liver | GUNSTOCK REPAIRER [address] | [address] | | | | | without | [address] | CONFEDERATED | | | | | ascites | [address] | WAY | | | | | (HCC) | [place], | [place], [place] | | | | | Anemia, | [place] [address] | [address] | | | | | unspecified | Phone: | Phone: | | | | | type | [phone] | [phone] | | | | | Hypokalemia | Fax: | Fax: | | | | | | [phone] | [phone] | | | | | Thrombocytop | [...] Orders Only | [facility] [place] | [facility], | Alcoholic cirrhosis | | 2019 | | GASTROENTEROLOGY | FRANK Oconnor [address] | of liver without | | | | [address] | [address] | ascites (HCC) | | | | [address] [place], [place] | [place] [facility], [place] | (Primary Dx); | | | | [address] | [address] | Anemia, unspecified | | | | [phone] | | type; Hypokalemia; | | | [...] [place] | | | | | | [address] | | | | | | | | +--------+---------+ + + + + +---------+--------+ + + | Name | [...]
--- OUTSIDE RECORDS SUMMARY | ~2019-12-07 | XMS | Encounter Summary ---
Demographics + + + | Address | [address] | | | [place] [address] | + + + | Home Phone [...] Team Providers + +------+ + | Care Dimpling Machine Operator Name | Role | Phone [...] + + | 01/25/ | Telephone | [facility] | Cindy Doran | Procedure (surgery | | 2018 | | OTOLARYNGOLOGY [address] | M, Chief Substation Operator | date ) | | | | [address] [facility] [address] | | | | | | [place] | | | | | | [address] | | | | | | [phone] | | | +--------+ + + + [...] Miscellaneous Notes Telephone Encounter - Cindy Doran, Chief Substation Operator - 01/25/2019 10:20 AM PSTCalled and spoke [...] STdocumented in this encounter Plan of Treatment +--------+---------+ + + + | Date | Type | Specialty | Care Team | Description | +--------+---------+ + + + | 12/14/ | Office | Otolaryngology | Jose Riojas MD | | | 2019 | Visit | | [address] | | | | | | [address] [place] | | | | | | [address] | | | | | | | | +--------+---------+ + + + documented as of this encounter Visit Diagnoses Not on filedocumented in this encounter"
--- OUTSIDE RECORDS SUMMARY | ~2019-12-07 | XMS | Encounter Summary ---
Demographics + + + | Address | [address] | | | [place] [address] | + + + | Home Phone [...] Team Providers + +------+ + | Care Tromper Name | Role | Phone | + [...] + + | 09/20/ | Telephone | [facility] | Jose Riojas MD | Procedure | | 2018 | | OTOLARYNGOLOGY [address] | [address] [place] [address] | | | | | W [facility] [address] | [address] [place] | | | | | [place] | [address] | | | | | [address] | | | | | | [phone] | | | +--------+ + + + [...] Miscellaneous Notes Telephone Encounter - Cindy Doran Numerical Control Tool Programmer - 11/02/2018 3:38 PM PDTClosin g phone note due to patient not calling us back. elephone Encounter - Cindy Doran Medica l Orientation And Mobility Instructor - 10/13/2018 2:31 PM PDTI tired calling [...] syst em, please call her back at [phone]. Electronically signed by Su Goodwin at 09/14 8:57 AM PDTTelephone Encounter - Cindy Doran Numerical Control Tool Programmer - 10/06/2018 8:20 AM PDTI tried calling patient to get her scheduled for surgery but someone answered th en hung up. I will try one more time. elephone Encounter - Su Goodwin - 09/20/2018 11:5 3 AM PDTPatient called and wants to reschedule the surgery she did not show up for on 09/07. Please call her back at [phone], she states this number was just changed [...] 2020 | Visit | | [address] [place] [address] | | | | | | [address] [place] | | | | | | [address] | | | | | | | | +--------+---------+ + + + documented as of this encounter Visit Diagnoses Not on filedocumented in this encounter"
--- OUTSIDE RECORDS SUMMARY | ~2019-12-07 | XMS | Encounter Summary ---
Demographics + + + | Address | [address] | | | [place] [address] | + + + | Home Phone [...] Providers + +------+ + | Care Auto Service Mechanic Name | Role | Phone | [...] | | | | | dicaid/bourr | [address] | [address] [place] | | | | | et/self | Way | [place] | | | | | Procedures | [place] | [address] Phone: | | | | | OFFICE VISIT | [place] [address] | [phone] | | | | | REGULAR | Phone: | Fax: | | | | | | [phone] | [phone] | | | | | | Fax: | | | | | | | [phone] | | +--------+--------+ + + + + Encounter Details +--------+---------+ + + + | Date | Type | Department | Care Team | Description | +--------+---------+ + + + | 10/04/ | Office | [facility] | Jose Riojas MD | Deviated nasal | | 2020 | Visit | OTOLARYNGOLOGY | [address] | septum (Primary Dx); | | | | SERVICES [address] | [address] [place] | Hypertrophy of | | | | [address]VE [address] [place] | [id number] | nasal turbinates; | | | | [place] [address] | | Neoplasm of | | | | [phone] | | uncertain behavior | | | [...] Procedure: EGD; Surgeon: Keaton Wakefield MD; Location: [facility] MEDICAL PROCEDURE UNIT SOCIAL HISTORY: The [...]
--- OUTSIDE RECORDS SUMMARY | ~2019-12-07 | XMS | Encounter Summary ---
Demographics + + + | Address | [address] | | | [place] [address] | + + + | Home Phone [...] Author + + + | Author | [facility] | | | and [place] | + + + | Organization | [facility] | | [...] Team Providers + +------+ + | Care Insole Rasper Name | Role | Phone | + [...] failure, | PharmD [address] | [address] | | | | | unspecified | [address] | [place], | | | | | HF | [place] | [place] | | | | | chronicity, | [place], [place] | [address] | | | | | unspecified | [address] | Phone: | | | | | heart | Phone: | [phone] | | | | | failure type | [phone] | Fax: | | | | | ([facility]) | [phone] | [phone] | | | | | Procedures | | | | | | | AIRPORT BAGGAGE SCREENER | | | +--------+ + + + [...] HF | | | | [address] [place] | [address] [place] | chronicity, | | | | [place] [address] | [place] [address] | unspecified heart | | | | [phone] | [phone] | failure type (HCC) | | | [...] [place] | | | | | | [address] | | | | | | | [...]
--- OUTSIDE RECORDS SUMMARY | ~2019-12-07 | XMS | Encounter Summary ---
Demographics + + + | Address | [address] | | | [place] [address] | + + + | Home Phone [...] Team Providers + +------+ + | Care Latin Professor Name | Role | Phone | [...] | | vomiting, | | [address], | | | | | vomiting of | | [address] | | | | | unspecified | | [place], | | | | | type | | [place] [address] | | | | | Aspiration | | Phone: | | | | | pneumonia | | [phone] | | | | | due to | | Fax: | | | | | gastric | | [phone] | | | | | secretions | [...] + + | 04/17/ | Hospital | [facility] | Keaton Wakefield MD | Nausea and vomiting, | | 2016 | Encounter | MED CTR MP INTRA OP | [address], [place] | vomiting of | | | | [address] | [address] [place] | unspecified type | | | | [place] | [address] | (Primary Dx) | | | | [address] | | | | | | [phone] | | | +--------+ + + + [...] and well-nourished. No distress. Morbid obesity B IL 49.4 HENT: Head: Normocephalic and atraumatic. Right [...] normal. Nursing note and vitals reviewed. 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 documented in [...] [place] | | | | | | [address] [...] | PROVATION | | 04/17/2015 12:31 PMMRN: [id number] #: [id number] of : | | | 1975Admit Type: AmbulatoryAge: 39Room: [facility] 01Gender: FemaleNote | | | Status: FinalizedAttending [...] physician, the nurse, the anesthesiologist and the nuclear reactor technician | | | in the procedure [...] Addenda: 0Note Initiated On: 04/17/2015 12:31 PM [facility]. | | | [facility] [place] [address] | | | [phone] | | | - The retroflexed view [...] On: 04/17/2015 12:31 PM | | | [facility], [address] [facility], [place], [place] | | | [address] | | + + -+ + +---------+ [...] + | [facility] | [address] | [place] | [phone] | | [facility] | | [address] | | | - LABORATORY | | [...] + | [facility] | [address] | [place] | [phone] | | [facility] | | [address] | | | - LABORATORY | | [...] | | | Cells | | | [address] | | [...] [address] | [place] | [phone] | | [facility] | | [address] | | | - LABORATORY | | [...] | 1.010, 1.015, | | | | [place], | | 1.020, 1.025 | | | | POC | | | | | + + + + + + | Internal QC | Acceptable | | | | + + + + + + | Lot Number | [id number] | | | | + + + [...] | | peptic duodenitis or other abnormality. BES:[facility]:C3NR GROSS | | | DESCRIPTION: Received in formalin labeled "Tiny Campuzano" and | | | "duodenal biopsy" on the requisition are multiple pink-santa tissue | | | fragments measuring from <0.1-0.4 cm, all in (A1). ka:RosVR:[facility] | | | PERFORMING LABORATORY: Tissue processing and slide preparation were | | | performed by [employer], [facility], [address] | | | [place] [address] (Dumping Machine Operator: Reilly Thomas M.D. CLIA#: | | | [id number]). Professional interpretation was performed by [employer] | | | [employer], [facility] [address] [address], [place] [address] | | | (Dumping Machine Operator: Reilly Thomas M.D.; CLIA#: [id number]). | | | Diagnostician: Daniel Briscoe MD [...]
--- OUTSIDE RECORDS SUMMARY | ~2019-12-07 | XMS | Encounter Summary ---
Demographics + + + | Address | [address] | | | [place] [address] | + + + | Home Phone | | + + + | Preferred Language | Unknown | + + + | Marital Status | Single | + + + | Hinduism Affiliation | 1041 | + + + [...] Team Providers + +------+ + | Care Wire Drawing Setter Name | Role | Phone | [...] | Telephone | [facility] [place] | [facility], | Imaging (ultrasound | | 2018 | | GASTROENTEROLOGY | FRANK Oconnor [address] | needs scheduled) | | | | [address] | [address] | | | | | [address] [place], [place] | [place], [place] | | | | | [address] | [address] | | | | | [phone] | | | +--------+ + + + [...] AM PSTSpoke with patient, she will call [facility] and they will set up ultrasound for her. I asked that they call us back with DOS for insurance. She verbalized understanding. The ultrasound order has been fax ed to [facility] imaging. 8: 54 AM PSTdocumented in this [...] [place] | | | | | | [address] | | | | | | | | +--------+---------+ + + + documented as of this encounter Visit Diagnoses Not on filedocumented in this encounter"
--- OUTSIDE RECORDS SUMMARY | ~2019-12-07 | XMS | Encounter Summary ---
Demographics + + + | Address | [address] | | | [place] [address] | + + + | Home Phone [...] Team Providers + +------+ + | Care Foxer Name | Role | Phone | + [...] + + | 12/08/ | Telephone | [facility] | Jose Riojas MD | Procedure (surgery | | 2018 | | OTOLARYNGOLOGY 301 | [address] | ) | | | | [address] [facility] [address] | [address] | | | | | [place] | [id number] | | | | | [address] | | | | | | [phone] | | | +--------+ + + + [...] Miscellaneous Notes Telephone Encounter - Cindy Doran Nursing Program Director - 01/11/2019 9:00 AM PDTPatien t has [...] 2:33 PM PDTTelephone Encounter - Cindy Doran Nursing Program Director - 9:34 AM PDTI tried calling patient but once again there is no answer. Surgery has been ap proved. If patient is going to schedule we need to get a good number because patient never a nswers or its a none working number. elephone Encounter - Cindy Doran Nursing Program Director - 12/14/2018 10:22 AM PDTAve to get [...] number so it is current in registration. Rafael toro in this encounter Plan of Treatment +--------+---------+ [...]
--- OUTSIDE RECORDS SUMMARY | ~2019-12-07 | XMS | Encounter Summary ---
Demographics + + + | Address | [address] | | | [place] [address] | + + + | Home Phone [...] + + + | Author | [facility] | | | and [place] | + + + | Organization | [facility] | | [...] Providers + +------+ + | Care Rubber Splicer Name | Role | Phone | [...] + + | 08/31/ | Telephone | [facility] | Jose Riojas MD | Procedure (surgery | | 2018 | | OTOLARYNGOLOGY 301 | [address] | time ) | | | | [address] [facility] [address] | [address] | | | | | [place] | [address] | | | | | [address] | | | | | | [phone] | | | +--------+ + + + [...] Miscellaneous Notes Telephone Encounter - Cindy Doran Switch Cleaner - 09/01/2018 1:05 PM KATIEKelli ellison called back and her surgery check in time was relayed to her. She will be there Thursday. P DTTelephone Encounter - Cindy Doran Switch Cleaner - 08/31/2018 2:15 PM PDTTried calling the [...] 2019 | Visit | | [address] | | | | | | [address] [place] | | | | | | [id number] | | | | | | | | +--------+---------+ + + + documented as of this encounter Visit Diagnoses Not on filedocumented in this encounter"
[2019-12-07] MEDS ORDERED: AUGMENTIN 875-1 EACH PO ×2 (19:12→19:18)
[2019-12-07] MEDS ORDERED: NORCO 5-325 TA1 EACH PO ×2 (19:12→19:18)
== END 2019-12-07 19:30 | disposition home or self-care (01) ==
LOC: ED 17:32
DX: S00.11XA Contusion of right eyelid and periocular area, initial encounter (principal); G89.18 Other acute postprocedural pain; X58.XXXA Exposure to other specified factors, initial encounter; E11.9 Type 2 diabetes mellitus without complications; F32.9 Major depressive disorder, single episode, unspecified; J44.9 Chronic obstructive pulmonary disease, unspecified; I10 Essential (primary) hypertension; E78.5 Hyperlipidemia, unspecified; D64.9 Anemia, unspecified; Z79.899 Other long term (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
CPT/HCPCS: 99283

== ENCOUNTER 2020-02-29 22:27 | Emergency (ER) | payer OTHER ==
[~2020-02-29] VITALS: Ht 175.3 cm; Wt 132.4 kg
[~2020-02-29 22:27] MED LIST changes: +AUGMENTIN 875-1 EACH PO
== END 2020-03-01 03:17 | disposition home or self-care (01) ==
LOC: ED 22:27
DX: B34.9 Viral infection, unspecified (principal); E11.9 Type 2 diabetes mellitus without complications; F32.9 Major depressive disorder, single episode, unspecified; J44.9 Chronic obstructive pulmonary disease, unspecified; I10 Essential (primary) hypertension; E78.5 Hyperlipidemia, unspecified; J45.909 Unspecified asthma, uncomplicated; Z79.899 Other long term (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
CPT/HCPCS: 71045; 80053; 81001; 84703; 85025; 96374; 99284-25; C9803; J2405; J7030; U0003

== ENCOUNTER 2020-08-22 12:29 | Emergency (ER) | payer OTHER ==
[~2020-08-22] VITALS: Ht 175.3 cm; Wt 132.4 kg
== END 2020-08-22 17:07 | disposition home or self-care (01) ==
LOC: ED 12:29
DX: S42.034A Nondisplaced fracture of lateral end of right clavicle, initial encounter for closed fracture (principal); S16.1XXA Strain of muscle, fascia and tendon at neck level, initial encounter; R51.9 Headache, unspecified; Y04.8XXA Assault by other bodily force, initial encounter; E11.9 Type 2 diabetes mellitus without complications; J44.9 Chronic obstructive pulmonary disease, unspecified; I10 Essential (primary) hypertension; E78.5 Hyperlipidemia, unspecified; D64.9 Anemia, unspecified; Z87.891 Personal history of nicotine dependence; Z79.899 Other long term (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
CPT/HCPCS: 70450; 70498; 73030; 80048; 84703; 85025; 99284-25; Q9967

== ENCOUNTER 2020-09-11 16:56 | Emergency (ER) | payer OTHER ==
[~2020-09-11] VITALS: Ht 175.3 cm; Wt 132.4 kg
[2020-09-11] MEDS ORDERED: ONDANSETRON ODT8 MG PO (19:13)
== END 2020-09-11 19:32 | disposition home or self-care (01) ==
LOC: ED 16:56
DX: S06.0X9A Concussion with loss of consciousness of unspecified duration, initial encounter (principal); W19.XXXA Unspecified fall, initial encounter; E11.9 Type 2 diabetes mellitus without complications; J44.9 Chronic obstructive pulmonary disease, unspecified; I10 Essential (primary) hypertension; E78.5 Hyperlipidemia, unspecified; D64.9 Anemia, unspecified; Z87.891 Personal history of nicotine dependence; Z79.899 Other long term (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
CPT/HCPCS: 70450; 99284-25

== ENCOUNTER 2021-08-30 09:32 | Emergency (ER) | payer MEDICARE, OTHER ==
[~2021-08-30] VITALS: Ht 175.3 cm; Wt 132.4 kg
[2021-08-30] MEDS ORDERED: DOXYCYCLINE HY100 M4 PO (11:55)
[2021-08-30] MEDS ORDERED: ONDANSETRON ODT8 MG PO (11:55)
[2021-08-30] MEDS ORDERED: GENERLAC10 GM/15 M PO (11:55)
[2021-08-30] MEDS ORDERED: OXYCODONE HCL5 MG PO (11:55)
== END 2021-08-30 12:40 | disposition home or self-care (01) ==
LOC: ED 09:32
DX: N73.9 Female pelvic inflammatory disease, unspecified (principal); K76.9 Liver disease, unspecified; K59.00 Constipation, unspecified; K80.80 Other cholelithiasis without obstruction; J44.9 Chronic obstructive pulmonary disease, unspecified; E11.9 Type 2 diabetes mellitus without complications; I10 Essential (primary) hypertension; E66.01 Morbid (severe) obesity due to excess calories; E78.5 Hyperlipidemia, unspecified; Z87.891 Personal history of nicotine dependence; Z79.899 Other long term (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; Z68.41 Body mass index [BMI] 40.0-44.9, adult
CPT/HCPCS: 36415; 76705; 80053; 81001; 83690; 84703; 85025; 85610; 85730; J0696; J3010

== ENCOUNTER 2022-04-17 20:28 | Emergency (ER) | payer MEDICARE, OTHER ==
[~2022-04-17] VITALS: Ht 175.3 cm; Wt 133.4 kg
[~2022-04-17 20:28] MED LIST changes: +CARAFATE1 GM PO; +DOXYCYCLINE HY100 M4 PO; +GENERLAC10 GM/15 M PO; +PROMETHAZINE HC25 M1 PO
[2022-04-17] MEDS ORDERED: VENTOLIN HFA18 GM INH (20:40)
[2022-04-17] MEDS ORDERED: BUMETANIDE0.5 MG PO (20:40)
== END 2022-04-17 22:09 | disposition home or self-care (01) ==
LOC: ED 20:28
DX: S50.11XA Contusion of right forearm, initial encounter (principal); S00.91XA Abrasion of unspecified part of head, initial encounter; E11.9 Type 2 diabetes mellitus without complications; F32.A Depression, unspecified; J44.9 Chronic obstructive pulmonary disease, unspecified; I10 Essential (primary) hypertension; E78.5 Hyperlipidemia, unspecified; D64.9 Anemia, unspecified; K74.60 Unspecified cirrhosis of liver; W19.XXXA Unspecified fall, initial encounter; Z87.891 Personal history of nicotine dependence; Z79.899 Other long term (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
CPT/HCPCS: 36415; 70450; 71045; 73030; 73090; 80053; 83735; 83880; 85025; 99284-25

== ENCOUNTER 2022-12-18 20:46 | Emergency (ER) | payer MEDICARE, OTHER ==
[~2022-12-18] VITALS: Ht 175.3 cm; Wt 128.8 kg
[~2022-12-18 20:46] MED LIST changes: +CEPHALEXIN500 MG PO; +LACTULOSE10 GM/151 PO
[2022-12-18 21:00] LABS: BASOPHILS 0.8 % (0-2); EOSINOPHILS 5.8 % (0-6); HEMATOCRIT 36.7 % (35.0-50.0); HEMOGLOBIN 12.4 g/dL (12.0-18.0); LYMPHOCYTES 36.7 % (24-44); MCH 33.4 (27-36); MCHC 33.8 g/dl (30-36); MCV 98.9 fl (81-99); NEUTROPHILS 47.7 % (39-80); PLATELET COUNT 86 K/uL (140-440); RBC 3.71 M/ul (4.3-5.7); RDW 14.9 (10.5-15.0)
[2022-12-18 21:14] LABS: ALBUMIN 2.6 g/dL (3.4-5.0); ALBUMIN/GLOBULIN RATIO 0.6 (1.1-2.4); ANION GAP 13.4 (7-21); BILIRUBIN, TOTAL 2.5 ng/dL (0.2-1.0); BUN/CREATININE RATIO 5.98 (6.0-28.6); CALCIUM 8.2 mg/dL (8.5-10.1); CREATININE, SERUM 1.17 mg/dL (0.55-1.02); PARTIAL THROMBOPLASTIN TIME 36.8 Sec (22.9-41.3); POTASSIUM 3.4 mmol/L (3.5-5.1); PROTEIN, TOTAL 6.9 g/dL (6.4-8.2)
[2022-12-18 21:15] LABS: INR 1.39 (0.80-1.30); PROTIME 16.4 Sec (11.2-14.2)
[2022-12-18 21:20] LABS: BILIRUBIN, URINE NEGATIVE (negative); BLOOD/HGB, URINE MODERATE (Negative); KETONE, URINE NEGATIVE (Negative); LEUK ESTERASE, URINE NEGATIVE (negative); NITRITE, URINE NEGATIVE (negative)
[2022-12-18 21:21] LABS: AMPHETAMINES, UR NEGATIVE (NEGATIVE); BARBITURATES, UR NEGATIVE (NEGATIVE); BENZODIAZEPINES, UR NEGATIVE (NEGATIVE); BUPRENORPHINE,UR NEGATIVE (NEGATIVE); COCAINE, UR NEGATIVE (NEGATIVE); MARIJUANA (THC), UR POSITIVE (NEGATIVE); MDMA, UR NEGATIVE (NEGATIVE); METHADONE, UR NEGATIVE (NEGATIVE); METHAMPHETAMINE, UR NEGATIVE (NEGATIVE); OPIATES, UR NEGATIVE (NEGATIVE); OXYCODONE, UR NEGATIVE (NEGATIVE); PHENCYCLIDINE, UR NEGATIVE (NEGATIVE); TRICYCLIC ANTIDEPRESSANT, UR NEGATIVE (NEGATIVE)
[2022-12-18 21:26] LABS: EPITHELIAL CELLS, URINE SQUAMOUS 2+ /lpf (0-1+); RED BLOOD CELLS, URINE 41-50 /hpf (0-5)
[2022-12-18 21:27] LABS: BACTERIA, URINE RARE /hpf (negative); CASTS, URINE NONE SEEN \\lpf; CRYSTALS, URINE NONE SEEN (0-1+); REFLEX CULTURE, URINE No (No)
[2022-12-18 23:49] VITALS: BP 142/62
== END 2022-12-18 23:45 | disposition home or self-care (01) ==
LOC: ED 20:46
PROVIDERS: Internal Medicine
DX: F10.129 Alcohol abuse with intoxication, unspecified (principal); W18.30XA Fall on same level, unspecified, initial encounter; E11.9 Type 2 diabetes mellitus without complications; J44.9 Chronic obstructive pulmonary disease, unspecified; I10 Essential (primary) hypertension; E78.5 Hyperlipidemia, unspecified; J45.909 Unspecified asthma, uncomplicated; D64.9 Anemia, unspecified; Z87.891 Personal history of nicotine dependence; Z79.899 Other long term (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
CPT/HCPCS: 36415; 51701; 70450; 72125; 80053; 81001; 82553; 83735; 84703; 85025; 85610; 85730; 99284-25; G0480; J1170; J1790; J2405; J3411; J7030; J7121

== ENCOUNTER 2023-01-10 05:18 | Observation (INO) | payer MEDICARE, OTHER ==
[~2023-01-10] VITALS: Ht 172.7 cm; Wt 129.2 kg
[2023-01-10] VITALS (7 sets, daily range): BP systolic 107–152; BP diastolic 49–83
[2023-01-10 05:46] LABS: PH, VENOUS 7.433 (7.31-7.41)
[2023-01-10 05:47] LABS: BASOPHILS 0.5 % (0-2); EOSINOPHILS 0.8 % (0-6); HEMATOCRIT 36.8 % (35.0-50.0); HEMOGLOBIN 12.4 g/dL (12.0-18.0); MCH 33.9 (27-36); MCHC 33.6 g/dl (30-36); MCV 100.8 fl (81-99); MONOCYTES 10.6 % (0-12); NEUTROPHILS 77.1 % (39-80); PLATELET COUNT 99 K/uL (140-440); RBC 3.65 M/ul (4.3-5.7)
[2023-01-10 06:00] LABS: INR 1.29 (0.80-1.30); PROTIME 15.5 Sec (11.2-14.2)
[2023-01-10 06:27] LABS: ACETAMINOPHEN 0 ug/mL (10-30); ALBUMIN 2.8 g/dL (3.4-5.0); ALBUMIN/GLOBULIN RATIO 0.67 (1.1-2.4); ALCOHOL, MEDICAL <3 ng/dL (<3); ALKALINE PHOSPHATASE 236 U/L (46-116); ALT (SGPT) 22 U/L (14-59); ANION GAP 14.6 (7-21); AST (SGOT) 50 U/L (15-37); BILIRUBIN, TOTAL 1.9 ng/dL (0.2-1.0); BUN/CREATININE RATIO 9.33 (6.0-28.6); CALCIUM 8.6 mg/dL (8.5-10.1); CARBON DIOXIDE 22 mmol/L (21-32); CHLORIDE 110 mmol/L (98-107); GLOMERULAR FILTRATION RATE,EST 43 mL/min (>60); POTASSIUM 3.6 mmol/L (3.5-5.1); UREA NITROGEN 14 mg/dL (7-18)
[2023-01-10 06:28] LABS: SALICYLATE <0.2 mg/dL (2.8-20.0)
[2023-01-10 06:49] LABS: BILIRUBIN, URINE NEGATIVE (negative); BLOOD/HGB, URINE NEGATIVE (Negative); KETONE, URINE NEGATIVE (Negative); LEUK ESTERASE, URINE NEGATIVE (negative); NITRITE, URINE NEGATIVE (negative)
[2023-01-10 07:06] LABS: INFLUENZA B NAA NEGATIVE (NEGATIVE); RESPIRATORY SYNCYTIAL VIR NAA NEGATIVE (NEGATIVE)
[2023-01-10 07:46] LABS: AMPHETAMINES, URINE NEGATIVE (NEGATIVE); BARBITURATES, URINE NEGATIVE (NEGATIVE); BENZODIAZEPINE, URINE POSITIVE (NEGATIVE); BUPRENORPHINE, URINE NEGATIVE (NEGATIVE); CANNABINOID, URINE POSITIVE (NEGATIVE); COCAINE, URINE NEGATIVE (NEGATIVE); ECSTASY, URINE NEGATIVE (NEGATIVE); FENTANYL, URINE NEGATIVE (NEGATIVE); METHADONE, URINE NEGATIVE (NEGATIVE); OPIATES, URINE NEGATIVE (NEGATIVE); OXYCODONE, URINE NEGATIVE (NEGATIVE); PHENCYCLIDINE, URINE NEGATIVE (NEGATIVE)
--- NOTE | 2023-01-10 14:05 | NUR ---
Assisted Pt 1PA to bedside commode from bed and back. Call light left in reach. Bed alarms on. No other needs expressed by Pt.
--- NOTE | 2023-01-10 14:33 | EKG ---
[facility] [address] [facility] [facility] [place] [address] Signed Sinus rhythm with occasional premature ventricular complexes Possible Anterior infarct (cited on or before 01-FEB-2016) Abnormal ECG When compared with ECG of 02-NOV-2019 07:53, premature ventricular complexes are now present Questionable change in initial forces of Anterior leads Nonspecific T wave abnormality, improved in Lateral leads QT has lengthened Confirmed by SMITHA KUMAR MD ([id number]) on 01/10/2023 2:32:51 PM Electronically Signed By: SMITHA KUMAR 01/10/23 1433 PATIENT NAME: KAMILAH IBARRA Electrocardiogram DATE OF : 75 PHYSICIAN: SMITHA KUMAR REPORT #: [id number] REPORT IS CONFIDENTIAL AND NOT TO BE RELEASED WITHOUT AUTHORIZATION
--- NOTE | 2023-01-10 14:45 | NUR ---
Assisted Pt with eating jello, pudding, 237 ML ensure protein shake and 237 ML of clear liquid juice. Placed socks on Pt's feet. Left fresh ice water and warm blanket for Pt. Call light left in reach. Bed alarm on. No other needs expressed by Pt.
--- NOTE | 2023-01-10 15:20 | NUR ---
Gave Pt fresh ice water. Call light left in reach. Bed alarm on. No other needs expressed by Pt.
--- NOTE | 2023-01-10 16:30 | NUR ---
Assisted Pt 1PA from bed to bedside commode and back. Pt continues to have blood in stool- Notified RN. Gave Pt warm blanket. Gave Pt fresh ice water. Call light left in reach. Bed alarms on. No other needs expressed by Pt.
--- NOTE | 2023-01-10 16:45 | NUR ---
Assisted Pt with calling sister. Brought Pt snack. Pt ate snack and drank water independently. Pt knows location and apppears more alert and oriented. Call light left in reach. Bed alarm on. No other needs expressed by Pt.
--- NOTE | 2023-01-10 17:34 | NUR ---
Gave Pt dinner from dietary and diet soda. Call light left in reach. Bed alarms on. No other needs expressed by Pt.
--- NOTE | 2023-01-10 19:20 | NUR ---
PT CALLED, THIS RN INTO PT ROOM TO ROUND AFTER REPORT FROM ROMA PILLAI, PT HAS WASH CLOTH TO MOUTH, SHE REPORTS SHE FEELS NAUSEA, ZOFRAN ADMINISTERED PRN.
--- NOTE | 2023-01-10 20:03 | NUR ---
PT REPORTS SHE HAS A CRAMP IN HER LEFT THIGH, REPOSITIONED AND WARM BLANKET WRAPPED, PT REPORTS IMPROVING.
--- NOTE | 2023-01-10 20:54 | NUR ---
PT RESTING IN BED EYES CLOSED, ALERT TO THIS RN AT BEDSIDE FOR V/S AND I/O, SHE IS ORIENTED TO PLACE AND SELF, NO OTHER COMPLAINTS OR REQUESTS AT THIS TIME.
--- NOTE | 2023-01-10 22:00 | NUR ---
PT UP TO BEDSIDE COMMODE FOR BM, LARGE FORMED BM, PT TOLERATED ACTIVITY WELL WITH ONE PERSON ASSIST. NOTED SMALL AMOUNT OF BLOOD ON WIPES, PT STATED SHE HAS HEMORRHOIDS AND SHE HAS HAD SMALL AMOUNT OF BLOOD WHEN SHE WIPES AT HOME. PT BACK TO BED.
--- NOTE | 2023-01-10 22:30 | NUR ---
REPORT TO PATEL PILLAI FOR TRANSFER TO MED/SURG UNIT ROOM 122.
--- NOTE | 2023-01-10 22:30 | NUR ---
BEDSIDE REPORT RECEIVED, WITH HELP FROM CCU RN CONRADO, pt TRANSFERRED TO [facility] ROOM #122. BED ALARM ON FOR SAFETY. pt AWOKE TO VOICE, A/O TO SELF AND PLACE, REQUESTING SNACK. pt SCOOTED SELF UP IN BED, HOB RAISED. PRN BLOOD SUGAR CHECK WITH RESULT OF 76,pt NONSYMPTOMATIC PRN SNACK PROVIDED TO PREVENT HYPOGLYCEMIC EVENT. IV SITE WNL, IV FLUIDS INFUSING DIRECTED. REYNOLDS PATENT. NO ADDITIONAL NEEDS, CALL LIGHT IN REACH.
--- NOTE | 2023-01-10 23:55 | NUR ---
BS RECHECKED FOLLOWING SNACK, RESULT NOW 104. NO NEEDS OR CONCERNS VERBALIZED BY pt, CALL LIGHT IN REACH, BED ALARM ON AND IV SITE WNL WITH IV FLUIDS INFUSING DIRECTED.
[2023-01-11 01:46] VITALS: BP 127/52
--- NOTE | 2023-01-11 02:01 | NUR ---
rounded on pt, pt a/o to self, place. no acute changes noted, bed alarm remains on for safety and call light in reach. diet soda provided per pt request. iv site wnl, fluids infusing as directed. pt scooted self in bed, resting in bed with hob elevated. call light in reach, vss and i&o's collected.
--- NOTE | 2023-01-11 02:17 | NUR ---
Patient's tele leds were off and were put back in place. Patient was cold and I brought her two warm blankets. Turned temperature in room up to 76 for her. Call light is within reach and nothing else is needed at this time.
--- NOTE | 2023-01-11 03:50 | NUR ---
rounded on pt, pt resting in bed with eyes closed. on ra, rr even and unlabored. no distress noted. bed alarm on for safety and call light in reach.
[2023-01-11 05:14] LABS: BASOPHILS 0.9 % (0-2); HEMATOCRIT 30.4 % (35.0-50.0); HEMOGLOBIN 10.3 g/dL (12.0-18.0); LYMPHOCYTES 24.8 % (24-44); MCH 33.8 (27-36); MCV 99.7 fl (81-99); MONOCYTES 8.2 % (0-12); NEUTROPHILS 60.1 % (39-80); PLATELET COUNT 93 K/uL (140-440); RBC 3.05 M/ul (4.3-5.7); RDW 15.3 (10.5-15.0)
[2023-01-11 05:15] VITALS: BP 131/49
[2023-01-11 05:29] LABS: ANION GAP 9.4 (7-21); BUN/CREATININE RATIO 9.32 (6.0-28.6); CALCIUM 8.2 mg/dL (8.5-10.1); CREATININE, SERUM 1.18 mg/dL (0.55-1.02); POTASSIUM 3.4 mmol/L (3.5-5.1)
--- NOTE | 2023-01-11 06:32 | NUR ---
iv site wnl, fluids infusing as directed. bed alarm remains on for safety and call light in reach. fresh water provided per pt request. no further needs.
--- NOTE | 2023-01-11 06:52 | NUR ---
40meq potassium oral given, see emar.
--- NOTE | 2023-01-11 07:30 | NUR ---
PT RESTING EYES CLOSED AT TIME OF SHIFT REPORT CALL LIGHT AND NEEDED ITEMS AT BEDSIDE
--- NOTE | 2023-01-11 09:05 | NUR ---
PT UP TO BSC UNABLE TO MOVE HER BOWELS. STAFF ASSIST TO WASH HER HAIR RETURNS TO BED AND HAS BREAKFAST.
[2023-01-11] MEDS ORDERED: XIFAXAN550 MG PO (09:23)
[2023-01-11 09:43] VITALS: BP 116/46
--- NOTE | 2023-01-11 10:38 | NUR ---
PT RESTING EYES CLOSED SNORING SOFTLY. FAMILY COME IN PT AWAKENS FOR A TIME. RETURNS TO RESTING EYES CLOSED
[2023-01-11 12:09] LABS: BUN/CREATININE RATIO 7.93 (6.0-28.6); CREATININE, SERUM 1.26 mg/dL (0.55-1.02)
--- NOTE | 2023-01-11 12:37 | NUR ---
PT RESTING EYES CLOSED AWAKENED FOR NOON MEAL.
--- NOTE | 2023-01-11 13:30 | NUR ---
PT AWAKE NOW SITTING UP IN BED DRINKING COFFEE VISITING ACTIVELY WITH HER SISTER. DENIES NEED OF ANYTHING AT THIS TIME
[2023-01-11 14:32] VITALS: BP 129/58
--- NOTE | 2023-01-11 15:02 | NUR ---
PT WORKS WITH P/T ABLE TO WALK AN ENTIRE LAP APPEARS STEADY ON HER FEET. RETURNS TO REST IN BED SISTER IS PRESENT IN THE ROOM
--- NOTE | 2023-01-11 16:53 | NUR ---
PT CONTINUES TO USE THE CALL LIGHT APPROPRIATELY THIS SHIFT. RESTING IN BED USING PHONE AT THIS TIME DENIES DISCOMFORTS OR NEEDS
[2023-01-11 17:55] VITALS: BP 130/52
--- NOTE | 2023-01-11 19:10 | NUR ---
SHIFT REPORT RECIEVED FROM DAYSHIFT RN ESTELLA, pt RESTING QUIETLY IN BED. ON RA, RR EVEN AND UNLABORED. CALL LIGHT IN REACH AND BED ALARM ON FOR SAFETY. pt REPORTS HEADACHE, BANQUET STEWARD TO CALL MD TO ASK FOR PAIN MEDICATION.
--- NOTE | 2023-01-11 19:49 | NUR ---
PT C/O H/A, DR KUMAR NOTIFIED VIA PHONE. NEW ORDERS FOR TYLENOL 325MG PO 1 OR 2 TABS Q6H PRN PO PAIN
[2023-01-11 20:06] VITALS: BP 117/53
--- NOTE | 2023-01-11 20:11 | NUR ---
ASSESSMENT COMPLETE, SCHEDULED MEDS GIVEN WITH PRN TYLENOL FOR REPORTED 8/10 PAIN TO HEADACHE. VSS, I&O'S COLLECTED. pT A/O TO SELF, PLACE, DAY OF WEEK. FORGETFUL REGARDING EVENTS LEADING TO HOSPITALIZATION. IV SITE WNL, IV FLUIDS INFUSING DIRECTED. CATHETER PATENT, REYNOLDS CARE COMPLETED. NO ADDITIONAL NEEDS OR CONCERNS. CALL LIGHT IN REACH AND BED ALARM ON FOR SAFETY.
--- NOTE | 2023-01-11 22:00 | NUR ---
HOB ELEVATED, NO DISTRESS, NO FURTHER C/O H/A, MED EFFECTIVE. IVF INFUSING W/O PROBLEMS. F/C PATENT. BED ALRM ON. CALL LIGHT AND FLUIDS AT HANDSA REACH
--- NOTE | 2023-01-12 02:17 | NUR ---
pt RESTING IN BED WITH EYES CLOSED. ON RA, RR EVEN AND UNLABORED, NO DISTRESS NOTED. IV SITE WNL, FLUIDS INFUSING DIRECTED. BED ALARM ON FOR SAFETY AND CALL LIGHT IN REACH.
[2023-01-12 05:35] LABS: HEMOGLOBIN 10.2 g/dL (12.0-18.0)
[2023-01-12 05:42] LABS: BASOPHILS 1.1 % (0-2); EOSINOPHILS 4.4 % (0-6); HEMATOCRIT 30.1 % (35.0-50.0); LYMPHOCYTES 18.9 % (24-44); MCH 34.3 (27-36); MCV 100.8 fl (81-99); NEUTROPHILS 66.6 % (39-80); PLATELET COUNT 82 K/uL (140-440); RBC 2.98 M/ul (4.3-5.7); RDW 14.7 (10.5-15.0)
[2023-01-12 05:47] LABS: BUN/CREATININE RATIO 9.75 (6.0-28.6); CREATININE, SERUM 1.23 mg/dL (0.55-1.02)
[2023-01-12 06:51] VITALS: BP 117/50
--- NOTE | 2023-01-12 06:54 | NUR ---
UPDATED DR KUMAR ON AM AMMONIA LEVELS, RESULT OF 55. TELEPHONE ORDER READ BACK TO DC REYNOLDS CATHETER. VSS, I&O'S COLLECTED. BED ALARM ON AND CALL LIGHT IN REACH.
--- NOTE | 2023-01-12 07:13 | NUR ---
REYNOLDS CATHETER DC'D AT THIS TIME, CATHETER TIP INTACT. pt EDUCATED TO USE CALL LIGHT PRIOR TO GETTING OOB , CALL LIGHT IN REACH AND BED ALARM ON FOR SAFETY.
--- NOTE | 2023-01-12 07:53 | NUR ---
PT RESTING EYES CLOSED AT TIME OF SHIFT REPORT. AWAKE NOW EATING MORNING MEAL. AGREES SHE FEELS WELL, DENIES NEEDS OF.
--- NOTE | 2023-01-12 08:24 | NUR ---
UR NOTE: MEETS OBS CRITERIA FOR DELIRIUM PATIENT CIONFUSED THROUGH ER OBS, NEED FOR SERIAL AMMONIA LEVELS, NEED FOR TITRATION OF LACTULOSE
--- NOTE | 2023-01-12 08:55 | NUR ---
PT TOLERATES MORNING MEAL RETURNS TO RESTING EYES CLOSED. DR UKMAR IN TO SEE HER ALL QUESTIONS ANSWERED. LACTULOSE ADMINISTERED PER ORDERS AMMONIA LEVEL TO BE DRAWN AT NOON.
--- NOTE | 2023-01-12 09:31 | NUR ---
PT APPEARED TO BE ATTEMPTING TO SLEEP - LYING IN BED WITH EYES CLOSED. DID NOT DISTURB. PRAYED FOR PENTECOSTALISM OF HEALTH AND ONGOING BLESSING.
--- NOTE | 2023-01-12 10:05 | NUR ---
SPOKE TO PATIENT ABOUT THE DC PLAN. PATIENT PLANS TO GO HOME WITH HER BOYFRIEND. PATIENT HAS FRIENDS AND FAMILY THAT CAN HELP NEEDED. PATIENT HAS A WALKER, CANE AND WHEELCHAIR. PATIENT HAS LIVER FAILURE. PATIENT IS TAKING LIBRIUM FOR DETOX AND PATIENT STATES IT HAS WORKED WELL FOR HER.PATIENT IS [place].PATIENT CAN DO HER OWN ADLS WITH HELP FROM HER BOYFIEND. PATIENT PLANS TO GO HOME TODAY IF PATIENT IS MEDICALLY STABLE.
[2023-01-12 10:14] VITALS: BP 121/57
--- NOTE | 2023-01-12 11:01 | NUR ---
PT RESTING EYES CLOSED
--- NOTE | 2023-01-12 12:42 | NUR ---
PT TO THE SHOWER ABLE TO WASH HER OWN SELF, DENIES NEED OF ASSIST. PERSONAL CARE ITEMS PROVIDED FOR ORAL CARE ETC
--- NOTE | 2023-01-12 12:45 | NUR ---
DR KUMAR IN TO SEE PT, DC DISCUSSED. PT AGREES SHE IS READY VERBALIZES UNDERSTANDING OF NEED TO INCREASE LACTULOSE AND KEEP BOWELS MOVING.
[2023-01-12] MEDS ORDERED: K-TAB10 MEQ PO (12:50)
[2023-01-12 14:23] VITALS: BP 135/72
--- NOTE | 2023-01-12 14:57 | NUR ---
PT SITTING UP IN THE CHAIR AGREES HER RIDE IS ON THE WAY. REVIEWED DC INSTRUCTIONS AGAIN SHE VERBALIZES UNDERSTANDING THAT SHE IS TO TAKE LACTULOSE 3 TIMES DAILY TO PROMOTE REGULAR BM'S. SHE DENIES ANY QUESTIONS OR CONCERNS
--- NOTE | 2023-01-26 13:11 | NUR ---
Attempt callback, phone message states line has been disconnected.
== END 2023-01-12 15:10 | disposition home or self-care (01) ==
LOC: ED 05:18 → MS 05:20 → CCU 05:20 → MS 22:48
PROVIDERS: Family Medicine; ADMIT Internal Medicine; ATTEND Internal Medicine
DX: E72.20 Disorder of urea cycle metabolism, unspecified (principal); F19.10 Other psychoactive substance abuse, uncomplicated; E11.9 Type 2 diabetes mellitus without complications; I10 Essential (primary) hypertension; E78.5 Hyperlipidemia, unspecified; J45.909 Unspecified asthma, uncomplicated; E66.01 Morbid (severe) obesity due to excess calories; Z87.891 Personal history of nicotine dependence; Z79.899 Other long term (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; Z20.822 Contact with and (suspected) exposure to COVID-19
CPT/HCPCS: 36415; 51702; 70450; 80048; 80053; 80307; 81003; 82010; 82140; 82803; 83735; 85025; 85610; 87502; 93005; 93010; 96361; 96375; 97116; 97161; 99285-25; A9270; C9803; G0378; G0480; J2060; J2405; J7030; U0002

== ENCOUNTER 2023-03-17 13:58 | Inpatient (IN) | payer MEDICARE, OTHER ==
[~2023-03-17] VITALS: Ht 172.7 cm; Wt 115.0 kg
[~2023-03-17 13:58] MED LIST changes: +K-TAB10 MEQ PO
[2023-03-17 14:37] LABS: BILIRUBIN, URINE NEGATIVE (negative); BLOOD/HGB, URINE TRACE-I (Negative); KETONE, URINE NEGATIVE (Negative); LEUK ESTERASE, URINE TRACE (negative); NITRITE, URINE NEGATIVE (negative); PH, URINE 6.5 (5-7)
[2023-03-17 14:45] LABS: CRYSTALS, URINE NONE SEEN (0-1+); EPITHELIAL CELLS, URINE SQUAMOUS 3+ /lpf (0-1+)
[2023-03-17 14:46] LABS: BACTERIA, URINE RARE /hpf (negative); CASTS, URINE NONE SEEN \\lpf; COLLECTION TYPE, URINE CLEAN CATCH; REFLEX CULTURE, URINE No (No)
[2023-03-17 14:58] LABS: AMPHETAMINES, URINE POSITIVE (NEGATIVE); BARBITURATES, URINE NEGATIVE (NEGATIVE); BENZODIAZEPINE, URINE POSITIVE (NEGATIVE); BUPRENORPHINE, URINE NEGATIVE (NEGATIVE); CANNABINOID, URINE POSITIVE (NEGATIVE); COCAINE, URINE NEGATIVE (NEGATIVE); ECSTASY, URINE NEGATIVE (NEGATIVE); FENTANYL, URINE NEGATIVE (NEGATIVE); METHADONE, URINE NEGATIVE (NEGATIVE); OPIATES, URINE NEGATIVE (NEGATIVE); OXYCODONE, URINE NEGATIVE (NEGATIVE); PHENCYCLIDINE, URINE NEGATIVE (NEGATIVE)
[2023-03-17 15:04] LABS: EOSINOPHILS 4.8 % (0-6); HEMATOCRIT 35.9 % (35.0-50.0); HEMOGLOBIN 12.3 g/dL (12.0-18.0); LYMPHOCYTES 27.8 % (24-44); MCH 32.5 (27-36); MCHC 34.1 g/dl (30-36); MCV 95.5 fl (81-99); MONOCYTES 10.5 % (0-12); NEUTROPHILS 55.9 % (39-80); PLATELET COUNT 99 K/uL (140-440); RBC 3.77 M/ul (4.3-5.7); RDW 16.8 (10.5-15.0)
[2023-03-17 15:28] LABS: ALBUMIN 2.8 g/dL (3.4-5.0); ALBUMIN/GLOBULIN RATIO 0.72 (1.1-2.4); ALCOHOL, MEDICAL <3 ng/dL (<3); ALKALINE PHOSPHATASE 157 U/L (46-116); ALT (SGPT) 28 U/L (14-59); AST (SGOT) 44 U/L (15-37); BUN/CREATININE RATIO 5.38 (6.0-28.6); CALCIUM 8.5 mg/dL (8.5-10.1); CARBON DIOXIDE 25 mmol/L (21-32); CHLORIDE 108 mmol/L (98-107); GLOMERULAR FILTRATION RATE,EST 51 mL/min (>60); PROTEIN, TOTAL 6.7 g/dL (6.4-8.2); TSH, 3RD GENERATION 1.809 uIU/mL (0.358-3.740); UREA NITROGEN 7 mg/dL (7-18)
[2023-03-17 15:29] LABS: ANION GAP 13.3 (7-21)
[2023-03-17 15:30] LABS: POTASSIUM 2.3 mmol/L (3.5-5.1)
[2023-03-17 15:52] LABS: ACETAMINOPHEN 0 ug/mL (10-30)
[2023-03-17 15:53] LABS: SALICYLATE <0.2 mg/dL (2.8-20.0)
[2023-03-17 21:11] VITALS: BP 141/62
[2023-03-17 23:00] VITALS: BP 172/80
[2023-03-18] VITALS (7 sets, daily range): BP systolic 123–150; BP diastolic 52–86
[2023-03-18 05:20] LABS: BASOPHILS 1.4 % (0-2); EOSINOPHILS 6.5 % (0-6); HEMATOCRIT 28.6 % (35.0-50.0); HEMOGLOBIN 9.9 g/dL (12.0-18.0); LYMPHOCYTES 28.6 % (24-44); MCH 32.9 (27-36); MCHC 34.7 g/dl (30-36); MCV 94.8 fl (81-99); MONOCYTES 10.3 % (0-12); NEUTROPHILS 53.2 % (39-80); PLATELET COUNT 76 K/uL (140-440); RBC 3.01 M/ul (4.3-5.7); RDW 16.5 (10.5-15.0)
[2023-03-18 05:32] LABS: ANION GAP 12.3 (7-21); BUN/CREATININE RATIO 3.96 (6.0-28.6); CALCIUM 8.2 mg/dL (8.5-10.1); CREATININE, SERUM 1.26 mg/dL (0.55-1.02); MAGNESIUM 1.9 mg/dL (1.8-2.4); PHOSPHORUS, INORGANIC 3.3 mg/dL (2.5-4.9)
[2023-03-18 05:33] LABS: POTASSIUM 2.3 mmol/L (3.5-5.1)
[2023-03-18 05:40] LABS: INR 1.89 (0.80-1.30); PROTIME 20.8 Sec (11.2-14.2)
[2023-03-18 05:43] LABS: ALBUMIN 2.1 g/dL (3.4-5.0); ALBUMIN/GLOBULIN RATIO 0.68 (1.1-2.4); BILIRUBIN, DIRECT 2.1 mg/dL (0.0-0.2); BILIRUBIN, INDIRECT 2.6 (0.1-0.7); BILIRUBIN, TOTAL 4.7 ng/dL (0.2-1.0); PROTEIN, TOTAL 5.2 g/dL (6.4-8.2)
[2023-03-18 14:28] LABS: ANION GAP 11.5 (7-21); BUN/CREATININE RATIO 3.47 (6.0-28.6); CALCIUM 8.1 mg/dL (8.5-10.1); CREATININE, SERUM 1.44 mg/dL (0.55-1.02); POTASSIUM 2.5 mmol/L (3.5-5.1)
[2023-03-18 20:58] LABS: ALBUMIN 2.1 g/dL (3.4-5.0); ALBUMIN/GLOBULIN RATIO 0.64 (1.1-2.4); ANION GAP 10.7 (7-21); BUN/CREATININE RATIO 3.59 (6.0-28.6); CALCIUM 8.1 mg/dL (8.5-10.1); CREATININE, SERUM 1.39 mg/dL (0.55-1.02); MAGNESIUM 1.7 mg/dL (1.8-2.4); POTASSIUM 2.7 mmol/L (3.5-5.1); PROTEIN, TOTAL 5.4 g/dL (6.4-8.2)
[2023-03-19 04:32] VITALS: BP 114/44
[2023-03-19 05:37] LABS: BASOPHILS 1.3 % (0-2); EOSINOPHILS 7.4 % (0-6); HEMATOCRIT 31.1 % (35.0-50.0); HEMOGLOBIN 10.7 g/dL (12.0-18.0); LYMPHOCYTES 28.9 % (24-44); MCH 32.9 (27-36); MCHC 34.5 g/dl (30-36); MCV 95.4 fl (81-99); MONOCYTES 10.6 % (0-12); NEUTROPHILS 51.8 % (39-80); PLATELET COUNT 66 K/uL (140-440); RBC 3.26 M/ul (4.3-5.7); RDW 16.4 (10.5-15.0)
[2023-03-19 05:46] LABS: ANION GAP 12.2 (7-21); BUN/CREATININE RATIO 3.1 (6.0-28.6); CALCIUM 8.3 mg/dL (8.5-10.1); CREATININE, SERUM 1.29 mg/dL (0.55-1.02); MAGNESIUM 2.1 mg/dL (1.8-2.4); POTASSIUM 3.2 mmol/L (3.5-5.1)
[2023-03-19 08:15] VITALS: BP 132/55
[2023-03-19] MEDS ORDERED: XIFAXAN200 MG PO (09:21)
[2023-03-19] MEDS ORDERED: LACTULOSE20 GM/30 M PO (09:21)
[2023-03-19 11:24] LABS: ALBUMIN 2.1 g/dL (3.4-5.0); ALBUMIN/GLOBULIN RATIO 0.64 (1.1-2.4); ANION GAP 11.2 (7-21); BILIRUBIN, TOTAL 3.7 ng/dL (0.2-1.0); BUN/CREATININE RATIO 3.73 (6.0-28.6); CALCIUM 8.1 mg/dL (8.5-10.1); CREATININE, SERUM 1.34 mg/dL (0.55-1.02); POTASSIUM 3.2 mmol/L (3.5-5.1); PROTEIN, TOTAL 5.4 g/dL (6.4-8.2)
[2023-03-19 11:35] LABS: INR 1.72 (0.80-1.30); PROTIME 19.3 Sec (11.2-14.2)
[2023-03-19 11:41] VITALS: BP 127/63
[2023-03-19 13:28] VITALS: BP 133/61
[2023-03-19] MEDS ORDERED: XIFAXAN550 MG PO (13:59)
[2023-03-19] MEDS ORDERED: ALBUTEROL2.5 MG/3 M INH (13:59)
[2023-03-19] MEDS ORDERED: VENTOLIN HFA18 GM INH (13:59)
== END 2023-03-19 14:20 | disposition home or self-care (01) | DRG 642 ==
LOC: ED 13:58 → CCU 20:36
PROVIDERS: Emergency Medicine; Internal Medicine; ADMIT Family Medicine; ATTEND Family Medicine
DX: E72.20 Disorder of urea cycle metabolism, unspecified (principal); R45.851 Suicidal ideations; E87.6 Hypokalemia; E83.42 Hypomagnesemia; F10.90 Alcohol use, unspecified, uncomplicated; E80.6 Other disorders of bilirubin metabolism; F19.10 Other psychoactive substance abuse, uncomplicated; E11.9 Type 2 diabetes mellitus without complications; F32.A Depression, unspecified; J44.9 Chronic obstructive pulmonary disease, unspecified; I10 Essential (primary) hypertension; K76.82 Hepatic encephalopathy; E78.5 Hyperlipidemia, unspecified; F12.90 Cannabis use, unspecified, uncomplicated; Z98.890 Other specified postprocedural states; Z87.440 Personal history of urinary (tract) infections; Z87.01 Personal history of pneumonia (recurrent); Z87.891 Personal history of nicotine dependence; Z90.49 Acquired absence of other specified parts of digestive tract; Z90.89 Acquired absence of other organs; Z79.899 Other long term (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; Z79.51 Long term (current) use of inhaled steroids
CPT/HCPCS: 36415; 74018; 80048; 80053; 80076; 80307; 81001; 82140; 83735; 84100; 84443; 84703; 85025; 85610; 97161; A9270; A9270-GY; G0480; J0780; J2405; J3411; J3475; J3480; J3490; J7030; J7060; J7121

== ENCOUNTER 2023-07-27 19:57 | Emergency (ER) | payer MEDICARE, OTHER ==
[~2023-07-27] VITALS: Ht 172.7 cm; Wt 110.0 kg
[~2023-07-27 19:57] MED LIST changes: +ALDACTONE25 MG PO; +BIOTENE1000 ML MM; +IRON325 M1 PO; +LACTULOSE20 GM/30 M PO; +LIDODERM1 EACH TOP; +MAGOX 400400 MG PO; +POTASSIUM CHLO10 ME1 PO; +VITAMIN C500 M1 PO; +XIFAXAN200 MG PO; +XIFAXAN550 MG PO
[2023-07-27 20:13] LABS: EOSINOPHILS 5.3 % (0-6); HEMATOCRIT 33.8 % (35.0-50.0); HEMOGLOBIN 11.6 g/dL (12.0-18.0); LYMPHOCYTES 29.2 % (24-44); MCH 32.5 (27-36); MCHC 34.2 g/dl (30-36); MCV 94.9 fl (81-99); NEUTROPHILS 53.5 % (39-80); RBC 3.56 M/ul (4.3-5.7); RDW 15.5 (10.5-15.0)
[2023-07-27] MEDS ORDERED: XANAX0.5 MG PO (20:13)
[2023-07-27] MEDS ORDERED: ASPIRIN 81 MG CHEW PO ONE (20:15)
[2023-07-27] MEDS ORDERED: NITROGLYCERIN 0.4 MG SUBL SL PRN (20:15)
[2023-07-27 20:21] LABS: INR 1.33 (0.80-1.30)
[2023-07-27 20:26] LABS: PLATELET COUNT 29 K/uL (140-440)
[2023-07-27 20:29] LABS: ALBUMIN/GLOBULIN RATIO 0.83 (1.1-2.4); ANION GAP 16.3 (7-21); BILIRUBIN, TOTAL 2.7 ng/dL (0.2-1.0); BUN/CREATININE RATIO 5.88 (6.0-28.6); CALCIUM 7.7 mg/dL (8.5-10.1); CREATININE, SERUM 1.19 mg/dL (0.55-1.02); MAGNESIUM 1.7 mg/dL (1.8-2.4); POTASSIUM 3.3 mmol/L (3.5-5.1); PROTEIN, TOTAL 6.6 g/dL (6.4-8.2)
[2023-07-27] MEDS ORDERED: ALBUTEROL/IPRATROPIUM 3 ML NEB INH ONE (20:45)
[2023-07-27 21:51] LABS: INFLUENZA B NAA NEGATIVE (NEGATIVE); RESPIRATORY SYNCYTIAL VIR NAA NEGATIVE (NEGATIVE)
[2023-07-27] MEDS ORDERED: MAGNESIUM OXIDE 400 MG TABLET PO ONE (22:30)
[2023-07-27] MEDS ORDERED: POTASSIUM CHLORIDE 10 MEQ TABCR PO ONE (22:30)
[2023-07-27] MEDS ORDERED: ondansetron HCL 4 MG/2 ML VIAL IV ONE (23:15)
[2023-07-27 23:31] VITALS: BP 114/45
--- NOTE | 2023-07-28 08:20 | EKG ---
[facility] [address] [place] [address] Signed Sinus tachycardia Minimal voltage criteria for LVH, may be normal variant ( Min product ) Anterolateral infarct , age undetermined Abnormal ECG When compared with ECG of 20-MAY-2023 16:38, QT has shortened Confirmed by Kati Mcallister MD () on 07/28/2023 8:20:37 AM Electronically Signed By: KATI MCALLISTER MD 07/28/23 0820 PATIENT NAME: KAMILAH IBARRA Electrocardiogram DATE OF : 75 PHYSICIAN: KATI MCALLISTER MD REPORT #: [id number] REPORT IS CONFIDENTIAL AND NOT TO BE RELEASED WITHOUT AUTHORIZATION
== END 2023-07-27 23:48 | disposition home or self-care (01) ==
LOC: ED 19:57
PROVIDERS: Internal Medicine
DX: J06.9 Acute upper respiratory infection, unspecified (principal); R07.89 Other chest pain; E11.9 Type 2 diabetes mellitus without complications; J44.9 Chronic obstructive pulmonary disease, unspecified; I10 Essential (primary) hypertension; Z87.891 Personal history of nicotine dependence; Z79.899 Other long term (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; Z11.52 Encounter for screening for COVID-19
CPT/HCPCS: 36415; 71045; 80053; 83735; 83880; 84484; 85025; 85060; 85610; 87502; 94640; A9270; G0480; J2405; U0002

== ENCOUNTER 2023-07-30 15:05 | Emergency (ER) | payer MEDICARE, OTHER ==
[2023-07-30 15:24] LABS: BASOPHILS 2.3 % (0-2); EOSINOPHILS 7.6 % (0-6); HEMATOCRIT 33.4 % (35.0-50.0); HEMOGLOBIN 11.3 g/dL (12.0-18.0); LYMPHOCYTES 30.5 % (24-44); MCH 32.4 (27-36); MCHC 33.9 g/dl (30-36); MCV 95.8 fl (81-99); MONOCYTES 8.9 % (0-12); NEUTROPHILS 50.7 % (39-80); RBC 3.49 M/ul (4.3-5.7); RDW 16.9 (10.5-15.0)
[2023-07-30] MEDS ORDERED: ondansetron HCL 4 MG/2 ML VIAL IV ONE (15:30)
[2023-07-30 15:39] LABS: ALBUMIN 2.9 g/dL (3.4-5.0); ALBUMIN/GLOBULIN RATIO 0.78 (1.1-2.4); ANION GAP 17.7 (7-21); BILIRUBIN, TOTAL 2.8 ng/dL (0.2-1.0); BUN/CREATININE RATIO 4.83 (6.0-28.6); CREATININE, SERUM 1.24 mg/dL (0.55-1.02); POTASSIUM 3.7 mmol/L (3.5-5.1); PROTEIN, TOTAL 6.6 g/dL (6.4-8.2)
[2023-07-30 15:42] LABS: PLATELET COUNT 25 K/uL (140-440)
[2023-07-30] MEDS ORDERED: SODIUM CHLORIDE 0.9% 1,000 ML IV ONE (17:30)
[2023-07-30] MEDS ORDERED: droPERidol 5 MG/2 ML VIAL IV ONE (17:30)
[2023-07-30] MEDS ORDERED: ALBUTEROL/IPRATROPIUM 3 ML NEB INH ONE (17:30)
[2023-07-30] MEDS ORDERED: OMEPRAZOLE20 MG PO (19:00)
[2023-07-30] MEDS ORDERED: PANTOPRAZOLE SODIUM 40 MG/10 ML VIAL IV ONE (19:00)
[2023-07-30] MEDS ORDERED: PROMETHAZINE HC25 M1 PO (19:00)
[2023-07-30 19:31] VITALS: BP 136/71
== END 2023-07-30 19:32 | disposition home or self-care (01) ==
LOC: ED 15:05
PROVIDERS: Emergency Medicine
DX: K74.60 Unspecified cirrhosis of liver (principal); E11.9 Type 2 diabetes mellitus without complications; J44.9 Chronic obstructive pulmonary disease, unspecified; I10 Essential (primary) hypertension; E78.5 Hyperlipidemia, unspecified; J45.909 Unspecified asthma, uncomplicated; Z87.891 Personal history of nicotine dependence; Z79.899 Other long term (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
CPT/HCPCS: 36415; 71045; 76705; 80053; 83690; 85025; 85060; 96374; 96375; 99284-25; C9113; G0480; J1790; J2405

== ENCOUNTER 2023-09-21 11:57 | Inpatient (IN) | payer MEDICARE, OTHER ==
[~2023-09-21] VITALS: Ht 172.7 cm; Wt 117.0 kg
[~2023-09-21 11:57] MED LIST changes: +KLOR-CON M2020 MEQ PO; -POTASSIUM CHLO10 ME1 PO
[2023-09-21] MEDS ORDERED: IBLOOD GLUCOSE TEST STRIP 1 EA TEST XX ONE (12:15)
[2023-09-21 12:50] LABS: HEMATOCRIT 29.3 % (35.0-50.0); HEMOGLOBIN 9.8 g/dL (12.0-18.0); MCH 32.8 (27-36); MCHC 33.5 g/dl (30-36); MCV 97.9 fl (81-99); RBC 2.99 M/ul (4.3-5.7); RDW 15.9 (10.5-15.0)
[2023-09-21 13:05] LABS: BANDS, MANUAL DIFF 8; LYMPHOCYTES, MANUAL DIFF 7; MONOCYTES, MANUAL DIFF 4; NEUTROPHILS, MANUAL DIFF 81
[2023-09-21 13:07] LABS: ALBUMIN 1.9 g/dL (3.4-5.0); ALBUMIN/GLOBULIN RATIO 0.53 (1.1-2.4); ANION GAP 15.2 (7-21); BILIRUBIN, TOTAL 4.6 ng/dL (0.2-1.0); BUN/CREATININE RATIO 9.66 (6.0-28.6); CREATININE, SERUM 2.69 mg/dL (0.55-1.02); MAGNESIUM 1.2 mg/dL (1.8-2.4); POTASSIUM 3.2 mmol/L (3.5-5.1); PROTEIN, TOTAL 5.5 g/dL (6.4-8.2)
[2023-09-21 13:08] LABS: PLATELET COUNT 21 K/uL (140-440)
[2023-09-21] MEDS ORDERED: fentaNYL citrate 100 MCG/2 ML VIAL IV ONE (14:00)
[2023-09-21] MEDS ORDERED: MAGNESIUM SULFATE 2 GM/50 ML BAG IV ONE (15:45)
[2023-09-21] MEDS ORDERED: POTASSIUM CHLORIDE 20 MEQ/15 ML CUP PO ONE (15:45)
[2023-09-21] MEDS ORDERED: SODIUM CHLORIDE 0.9% 1,000 ML IV PRN ×2 (17:00→18:45)
[2023-09-21 18:48] LABS: ALBUMIN 1.6 g/dL (3.4-5.0); ALBUMIN/GLOBULIN RATIO 0.52 (1.1-2.4); ANION GAP 13.7 (7-21); BILIRUBIN, TOTAL 4.3 ng/dL (0.2-1.0); BUN/CREATININE RATIO 10.86 (6.0-28.6); CALCIUM 6.7 mg/dL (8.5-10.1); CREATININE, SERUM 2.76 mg/dL (0.55-1.02); POTASSIUM 3.7 mmol/L (3.5-5.1); PROTEIN, TOTAL 4.7 g/dL (6.4-8.2)
[2023-09-21 19:08] LABS: BILIRUBIN, URINE POSITIVE (negative); BLOOD/HGB, URINE LARGE (Negative); KETONE, URINE TRACE (Negative); LEUK ESTERASE, URINE MODERATE (negative); NITRITE, URINE NEGATIVE (negative); PH, URINE 5.5 (5-7)
[2023-09-21 19:17] LABS: BACTERIA, URINE 4+ /hpf (negative); CASTS, URINE NONE SEEN \\lpf; COLLECTION TYPE, URINE CLEAN CATCH; CRYSTALS, URINE NONE SEEN (0-1+); EPITHELIAL CELLS, URINE SQUAMOUS 2+ /lpf (0-1+); REFLEX CULTURE, URINE No (No); WHITE BLOOD CELLS, URINE >50 /HPF (0-5)
[2023-09-21 19:20] LABS: LACTIC ACID, BLOOD 2.2 mmol/L (0.4-2.0)
--- NOTE | 2023-09-21 19:45 | NUR ---
DR KUMAR GAVE PT REPORT AND NEW ORDERS FOR THIS PT TO THIS RN - VO TO ENTER. LABS, MEDS, DIET, PT IN ER AT THIS TIME AND DR HARDWICK IN CCU.
[2023-09-21] MEDS ORDERED: LACTATED RINGER'S 1,000 ML IV SCH (20:00)
[2023-09-21] MEDS ORDERED: IBLOOD GLUCOSE TEST STRIP 1 EA TEST XX PRN (20:00)
[2023-09-21] MEDS ORDERED: DEXTROSE 50% 50 ML SYR IV PRN ×2 (20:00)
[2023-09-21] MEDS ORDERED: DEXTROSE 5% 1,000 ML IV PRN (20:00)
[2023-09-21] MEDS ORDERED: LORazepam 1 MG TAB PO PRN (20:00)
[2023-09-21] MEDS ORDERED: GLUCAGON,HUMAN RECOMBINANT 1 MG/ML VIAL SUB-Q PRN (20:00)
[2023-09-21 20:02] LABS: HEMATOCRIT 24.6 % (35.0-50.0); HEMOGLOBIN 8.4 g/dL (12.0-18.0); MCH 33.1 (27-36); MCHC 34.3 g/dl (30-36); MCV 96.4 fl (81-99); RBC 2.55 M/ul (4.3-5.7); RDW 15.7 (10.5-15.0)
[2023-09-21 20:11] LABS: AMPHETAMINES, URINE NEGATIVE (NEGATIVE); BARBITURATES, URINE NEGATIVE (NEGATIVE); BENZODIAZEPINE, URINE NEGATIVE (NEGATIVE); BUPRENORPHINE, URINE NEGATIVE (NEGATIVE); CANNABINOID, URINE POSITIVE (NEGATIVE); COCAINE, URINE NEGATIVE (NEGATIVE); ECSTASY, URINE NEGATIVE (NEGATIVE); FENTANYL, URINE NEGATIVE (NEGATIVE); METHADONE, URINE NEGATIVE (NEGATIVE); OPIATES, URINE NEGATIVE (NEGATIVE); OXYCODONE, URINE NEGATIVE (NEGATIVE); PHENCYCLIDINE, URINE NEGATIVE (NEGATIVE)
[2023-09-21] MEDS ORDERED: INHALER, ASSIST DEVICES 1 EACH SPACER MISC ONE (20:15)
[2023-09-21] MEDS ORDERED: ACETAMINOPHEN 325 MG TAB PO PRN (20:15)
[2023-09-21] MEDS ORDERED: ALBUTEROL SULFATE 8 GM INH INH PRN (20:15)
[2023-09-21] MEDS ORDERED: ALBUTEROL SULFATE 0.042% 1.25 MG/3 ML VIAL INH PRN (20:15)
[2023-09-21 20:22] LABS: BANDS, MANUAL DIFF 12; LYMPHOCYTES, MANUAL DIFF 3; MONOCYTES, MANUAL DIFF 5; NEUTROPHILS, MANUAL DIFF 80
[2023-09-21 20:24] LABS: PLATELET COUNT 19 K/uL (140-440)
[2023-09-21] MEDS ORDERED: IBLOOD GLUCOSE TEST STRIP 1 EA TEST XX SCH (21:00)
[2023-09-21] MEDS ORDERED: Insulin Regular, Human 100 UNIT/ML ML SUB-Q SCH (21:00)
[2023-09-21] MEDS ORDERED: PIPERACILLIN/TAZOBACTAM 3.375 GM VIAL ONE (21:12)
--- NOTE | 2023-09-21 21:14 | NUR ---
pt to rm 126 via er tony with staff - skin check showed intact skin with mutiple large bruises scattered head to toe. pt painful with movement and denies being able to stand, walk or assist to bed. inc of stool - cleaned. iv lr at 135. lab in for bcx2 before zosyn iv abx. aware of t&C also.
[2023-09-21 22:00] VITALS: BP 99/43
[2023-09-21] MEDS ORDERED: PIPERACILLIN/TAZOBACTAM 3.375 GM in DEXTROSE 5% 100 ML IV SCH (22:00)
[2023-09-21 22:03] LABS: LACTIC ACID, BLOOD 1.7 mmol/L (0.4-2.0)
[2023-09-21 22:23] LABS: ABO O; ANTIBODY SCREEN NEGATIVE; IS CROSSMATCH COMPATIBLE; RH POSITIVE
--- NOTE | 2023-09-21 22:24 | NUR ---
PT SETTLED IN ROOM, PO TYLENOL GIVEN FOR PAIN/FEVER. PT SWALLOWS WELL. LOW BP DR MUIR, PT ON PHONE WITH S/O WHO CALLS FROM SENIOR CARE - PT IS ANXIOUS AND STRESSED ABOUT SITUATION. PO ATIVAN GIVEN. PT THEN PLAYS GAMES ON CELL PHONE AND SIPS WATER. PURE WICK IN PLACE. CALL LIGHT IN REACH AND BED ALARM ON.
[2023-09-21 22:30] VITALS: BP 84/40
--- NOTE | 2023-09-21 22:48 | NUR ---
dr lion here - blood consent signed - rn called lab instructed to stay ahead 1 bag of prbc per verbal order. gave new v/o to this rn, and pt continues to play on phone.
[2023-09-21 23:01] LABS: IS CROSSMATCH COMPATIBLE
[2023-09-21 23:30] VITALS: BP 83/32
--- NOTE | 2023-09-21 23:43 | NUR ---
PRN BLOOD SUGAR FINGERSTICK DURING BLOOD TRANSFUSION IS 100 MG/DL. HR 92, RESP EVEN EYES CLOSED.
[2023-09-22] VITALS (10 sets, daily range): BP systolic 82–116; BP diastolic 36–71
[2023-09-22 02:10] LABS: HEMATOCRIT 26.9 % (35.0-50.0); HEMOGLOBIN 9.1 g/dL (12.0-18.0); MCH 32.4 (27-36); MCHC 33.6 g/dl (30-36); MCV 96.3 fl (81-99); RDW 16.4 (10.5-15.0)
[2023-09-22 02:25] LABS: BANDS, MANUAL DIFF 12; LYMPHOCYTES, MANUAL DIFF 6; MONOCYTES, MANUAL DIFF 10; NEUTROPHILS, MANUAL DIFF 72
[2023-09-22 02:27] LABS: PLATELET COUNT 15 K/uL (140-440)
--- NOTE | 2023-09-22 03:03 | NUR ---
VO FROM DR KUMAR TO GIVE PLATELETS - CALL TO LAB AND NO PLATELETS ARE IN HOUSE - MG 1.7 NEW ORDER FOR 2 GM TO REPLACE.
[2023-09-22] MEDS ORDERED: MAGNESIUM SULFATE 2 GM/50 ML BAG IV ONE (03:15)
--- NOTE | 2023-09-22 03:44 | NUR ---
WAITING FOR PHARMACY VERIFY MG. PT AWAKE GIVEN LEMON TE-MOAK SODA PER REQUEST - ENC. PT TO VOID - SHE STATES SHE DOES NOT NEED TO YET - ATTENDS IN PLACE - PT WILL CALL RN - LIGHT IN REACH.
[2023-09-22 05:44] LABS: HEMOGLOBIN 9.9 g/dL (12.0-18.0)
[2023-09-22 05:48] LABS: MCH 32.9 (27-36); MCHC 34.2 g/dl (30-36); MCV 96.1 fl (81-99); RBC 3.02 M/ul (4.3-5.7); RDW 16.6 (10.5-15.0)
[2023-09-22 06:01] LABS: PLATELET COUNT 15 K/uL (140-440)
[2023-09-22] MEDS ORDERED: PIPERACILLIN/TAZOBACTAM 3.375 GM VIAL ONE (06:01)
--- NOTE | 2023-09-22 06:03 | NUR ---
BLADDER SCAN PT FOR GREATER THAN 850 URINE AND INC OF SMEARS OF STOOL. CALL TO DR. KUMAR - TOR REYNOLDS. HE IS AWARE OF PLATLETS ON ORDER. PT IS PAINFUL TO ANY TOUCH AND OR MOVEMENTS. PT REPORTS SHE IS NORMALLY INC. AND USES DEPENDS. PT EYES ARE YELLOW AND ABD IS LARGE AND SWOLLEN/TENDER. IV X2 R ARM WNL.
[2023-09-22 06:05] LABS: BANDS, MANUAL DIFF 21; LYMPHOCYTES, MANUAL DIFF 3; MONOCYTES, MANUAL DIFF 7; NEUTROPHILS, MANUAL DIFF 69
[2023-09-22] MEDS ORDERED: LIDOCAINE 2% VISCOUS 6 ML SYR TOP ONE (06:15)
--- NOTE | 2023-09-22 06:36 | NUR ---
PT INC OF SM AMT OF STOOL, ATTENDS CHANGED WITH [facility]ANELLE CARE. REYNOLDS PLACED FOR IMMED. RETURN OF 900 ML CLOUDY DARK URINE - PT RELIVED OF PRESSURE AND DISCOMFORT. DR KUMAR HERE ON UNIT. PT ALERT AND AWAKE. UNABLE TO MOVE WELL DUE TO PAIN FROM HOME FALLS. CALL LIGHT IN REACH.
--- NOTE | 2023-09-22 06:42 | NUR ---
DR KUMAR HERE TO DISCUSS PLAN OF CARE, POTENTIAL FOR SNF REHAB. ORDER BMP AND CBC AT 10 AM.
--- NOTE | 2023-09-22 07:17 | NUR ---
CONFIRMED WITH DR STACY MCKEON TO DC 24 HR URINE COLLECTION - CALLED LAB.
--- NOTE | 2023-09-22 07:30 | NUR ---
REPORT RECEIVED FROM NIGHT RN - PT RESTING IN BED ON BACK, ALERT AND ORIENTED, SOMETIMES SLOW TO RESPOND. CALL LIGHT IN REACH.
--- NOTE | 2023-09-22 08:25 | NUR ---
ASSESSMENT COMPELTE - PT PAINFUL WITH ANY MOVEMENT, PRN ADMINISTERED AND REPOSISTIONED. RLQ PAINFUL IN ADB. SKIN JAUNDICED AND SIGNIFICANTLY BRUISED FROM FALLS. PT CIWA POSTIVE - PRN ADMINISTERED. ALERT AND ORIENTED, SOMETIMES SLOW TO RESPOND. PT ABLE TO SWALLOW ORAL MEDICATIONS WITHOUT DIFFICULTY. REYNOLDS CATH PATENT DRAINING CLOUDY URINE.
[2023-09-22] MEDS ORDERED: LACTULOSE 20 GM/30 ML CUP PO SCH (09:00)
[2023-09-22] MEDS ORDERED: buPROPion HCL XL 150 MG TAB.XL.24H PO SCH (09:00)
[2023-09-22] MEDS ORDERED: buPROPion HCL 75 MG TAB PO SCH (09:00)
[2023-09-22] MEDS ORDERED: Rifaximin 200 MG TAB PO SCH (09:00)
[2023-09-22] MEDS ORDERED: MULTIVITAMINS 10 ML,FOLIC ACID 1 MG,THIAMINE HCL 100 MG in SODIUM CHLORIDE 0.9% 1,000 ML IV SCH (09:00)
[2023-09-22] MEDS ORDERED: Rifaximin 550 MG TAB PO SCH (09:00)
--- NOTE | 2023-09-22 09:10 | NUR ---
Spoke with Tiny and she states she continues to live in [facility] housing. She has a walker, wc, and walk in shower. She denies needs for any more DME. Pt is painful and states she recently fell on her back. Pt has a long history of alcohol abuse and some drugs in the past. Pt states she has been sober 5 days. Family will assist her if needed. Pt does not use food stamps and denies financial issues. Will check in with pt daily for needs.
[2023-09-22] MEDS ORDERED: ZYRTEC10 MG PO (09:13)
[2023-09-22] MEDS ORDERED: NALTREXONE HCL50 MG PO (09:15)
[2023-09-22] MEDS ORDERED: IMIQUIMOD1 EACH TOP (09:18)
--- NOTE | 2023-09-22 09:21 | NUR ---
RN IN ROOM ROUNDING WITH MD - PT DROWSY POST ATIVAN ADMINISTRATION BUT SITTING UP IN BED AND STATES UNDERSTANDING OF POC. SOFT BP, LABS, CIWA SCORE REVIEWED. CBC CANCELLED PER MD UNTIL PLATLET TRANSFUSION.
--- NOTE | 2023-09-22 10:10 | NUR ---
VISITED DURING SPIRITUAL CARE ROUNDS. PT APPEARED TO BE SLEEPING. DID NOT DISTURB. PROVIDED PRAYER.
[2023-09-22 10:26] LABS: ANION GAP 13.2 (7-21); BUN/CREATININE RATIO 12.26 (6.0-28.6); CALCIUM 6.7 mg/dL (8.5-10.1); CREATININE, SERUM 2.61 mg/dL (0.55-1.02); POTASSIUM 3.2 mmol/L (3.5-5.1)
--- NOTE | 2023-09-22 11:26 | NUR ---
PLATELET INFUSION STARTED. PT REPORTS 8/10 PAIN, REPOSISTIONED. GENERALIZED PAIN WITH MOVEMENT. SIPS OF WATER AND CLEAR LIQS BEING TOLERATED. ANXIETY IMPROVED, CIWA SCORE IMPROVED. URINE OUTPUT CONCENTRATED/CLOUDY IN REYNOLDS CATH. VS STABLE.
[2023-09-22] MEDS ORDERED: POTASSIUM CHLORIDE 10 MEQ TABCR PO ONE ×2 (11:30→18:45)
--- NOTE | 2023-09-22 12:34 | NUR ---
PLATELET INFUSION COMPLETE, NO ADVERSE REACTION, VS STABLE. PT SITTING IN CHAIR POSISTION TO EAT LUNCH CLEAR LIQ TRAY. PT INC OF SMALL LIQUID STOOL. BREAKDOWN NOTED AROUND RECTUM, BARRIER CREAM APPLIED. REYNOLDS CARE COMPLETE.
[2023-09-22 13:27] LABS: RBC, LEUKOREDUCED 18212410478600J
[2023-09-22] MEDS ORDERED: FLUTICASONE PRO16 GM NAS (14:05)
--- NOTE | 2023-09-22 14:05 | NUR ---
MED REC COMPLETE
--- NOTE | 2023-09-22 14:14 | NUR ---
RN IN ROOM TO ASSIST PHYSICAL THERAPY WITH EVAL - PT INC OF STOOL IN ATTENDS. BACK TO BED IN ON RIGHT SIDE, PROPTED WITH PILLOWS. CALL LIGHT IN REACH.
--- NOTE | 2023-09-22 14:26 | NUR ---
UR CLINICAL REVIEW: 2 MN FOR VERSALUS-MEETS CRITERIA FOR INPATIENT STAY MEDICARE INPT 09/21/23 @ 2042 ORDER MATCHES REG NO AUTH REQUIRED PER MEDICARE GUIDELINES DISCHARGE TO HOME WHEN STABLE
--- NOTE | 2023-09-22 14:34 | NUR ---
OT ATTEMPTED TO EVALUATE PT. SHE HAD HER HEAD COVERED UP. SHE ANSWERED A FEW QUESTIONS IN A WHISPERED VOICE THEN STOPPED TALKING. OT NOT ABLE TO DO AN EVALUATION WITH PT TODAY. WILL TRY TOMORROW.
[2023-09-22 14:46] LABS: BASOPHILS 0.1 % (0-2); EOSINOPHILS 3.2 % (0-6); HEMATOCRIT 28.9 % (35.0-50.0); HEMOGLOBIN 9.9 g/dL (12.0-18.0); LYMPHOCYTES 2.9 % (24-44); MCH 33.2 (27-36); MCHC 34.4 g/dl (30-36); MCV 96.4 fl (81-99); MONOCYTES 11.7 % (0-12); NEUTROPHILS 82.1 % (39-80); RDW 16.5 (10.5-15.0)
[2023-09-22 14:50] LABS: PLATELET COUNT 17 K/uL (140-440)
[2023-09-22] MEDS ORDERED: SODIUM CHLORIDE 0.9% 1,000 ML IV SCH (15:15)
--- NOTE | 2023-09-22 15:49 | NUR ---
PT RESTING IN BED, WAKES EASILY. RATES PAIN 7 DOWN FROM AN 8. STATES SHE IS COMFORTABLE. IVF CHANGED TO NS FROM LR. CALL LIGHT IN REACH. VS STABLE.
--- NOTE | 2023-09-22 17:00 | NUR ---
PT WAKES EASILY FOR CBG CHECK. SOILED ATTENDS, INC OF STOOL, CHANGED AND BARRIER CREAM APPLIED. PT REPOSISTIONED TO UP RIGHT CHAIR POSISTION. INCREASING STRENGTH NOTED FROM THIS MORNING. PT REMAINS ALERT AND ORIENTED, ASSESSMENT UNCHANGED.
[2023-09-22 18:13] LABS: HEMOGLOBIN 9.5 g/dL (12.0-18.0)
[2023-09-22 18:16] LABS: MCH 32.7 (27-36); MCV 95.9 fl (81-99); RBC 2.92 M/ul (4.3-5.7); RDW 16.7 (10.5-15.0)
[2023-09-22 18:18] LABS: PLATELET COUNT 18 K/uL (140-440)
[2023-09-22 18:21] LABS: BUN/CREATININE RATIO 12.94 (6.0-28.6); CALCIUM 6.5 mg/dL (8.5-10.1); CREATININE, SERUM 2.55 mg/dL (0.55-1.02)
--- NOTE | 2023-09-22 19:00 | NUR ---
pt inc lg amt of loose bm - attends changed and yuli care/blank care done. pt painful to movement and touch and settles with rest. call light in reach.
--- NOTE | 2023-09-22 19:30 | NUR ---
REPORT FROM PGE PILLAI, PT HAS CALL LIGHT IN REACH, REYNOLDS TO GRAVITY, IV WNL.
[2023-09-22] MEDS ORDERED: POTASSIUM CHLORIDE 10 MEQ TABCR ONE (21:31)
--- NOTE | 2023-09-22 23:00 | NUR ---
platelets to bedside and checked by 2 rn. pt eyes closed resp even, call light in reach with rn in room for infusion.
[2023-09-23] VITALS (12 sets, daily range): BP systolic 62–99; BP diastolic 38–54
--- NOTE | 2023-09-23 | NUR ---
completed 2nd unit of platelets. vitals charted in administration form and i/o. pt tollerated well. gen edema in arms and body before the transfusion noted. pt falls asleep easily. attends changed by staff for lg stool.
--- NOTE | 2023-09-23 00:11 | NUR ---
platelets complete - pt tollerated well see blood administration for vitals.
--- NOTE | 2023-09-23 00:59 | NUR ---
PATIENT SITITNG UP IN BED ALERT AND ORIENTED, NEW IV FLUID BAG STARTED.
--- NOTE | 2023-09-23 03:05 | NUR ---
PT EYES CLOSED, REYNOLDS TO GRAVITY, IV WNL, CALL LIGHT IN REACH, HR 77.
[2023-09-23 05:35] LABS: HEMOGLOBIN 8.6 g/dL (12.0-18.0); MCH 32.8 (27-36); MCHC 34.2 g/dl (30-36); MCV 95.8 fl (81-99); RBC 2.61 M/ul (4.3-5.7); RDW 16.9 (10.5-15.0)
[2023-09-23 05:44] LABS: ANION GAP 13.1 (7-21); BUN/CREATININE RATIO 13.09 (6.0-28.6); CREATININE, SERUM 2.52 mg/dL (0.55-1.02); POTASSIUM 3.1 mmol/L (3.5-5.1)
[2023-09-23 05:45] LABS: CALCIUM 6.4 mg/dL (8.5-10.1)
[2023-09-23 05:50] LABS: PLATELET COUNT 24 K/uL (140-440)
[2023-09-23 05:54] LABS: BANDS, MANUAL DIFF 9; EOSINOPHILS, MANUAL DIFF 1; LYMPHOCYTES, MANUAL DIFF 15; MONOCYTES, MANUAL DIFF 8; NEUTROPHILS, MANUAL DIFF 67
[2023-09-23 06:41] LABS: OSMOLALITY 255 mOsm/kg (280-303)
--- NOTE | 2023-09-23 06:59 | NUR ---
DR KUMAR HERE AT BEDSIDE, REVIEW LABS - SEE NEW ORDERS. PT RESTING WITH CALL LIGHT.
[2023-09-23] MEDS ORDERED: Calcium Gluconate in NS 1,000 MG/50 ML BAG IV ONE (07:00)
[2023-09-23] MEDS ORDERED: POTASSIUM CHLORIDE 10 MEQ TABCR PO ONE ×2 (07:00→22:30)
--- NOTE | 2023-09-23 07:30 | NUR ---
REPORT RECIEVED FROM NIGHT RN - PT RESTING IN BED ALERT AND ORIENTED. REPORTS FEELING IMPROVED TODAY. CALL LIGHT IN REACH.
[2023-09-23] MEDS ORDERED: ALBUTEROL SULFATE 0.083% 3 ML VIAL INH PRN (07:45)
[2023-09-23] MEDS ORDERED: L. RHAMNOSUS GG/INULIN CAPSULE PO SCH (08:00)
--- NOTE | 2023-09-23 08:45 | NUR ---
I&OS CHARTED. UNABLE TO CHART VITALS DUE TO FROZEN MEDITECH SCREEN. RN AWARE OF VITALS BREAKFAST PROVIDED 99.0 TEMP HR 90 RR 17 105/48 (64) O2 96 (RA)
[2023-09-23] MEDS ORDERED: LACTULOSE 20 GM/30 ML CUP PO SCH (09:00)
--- NOTE | 2023-09-23 09:00 | NUR ---
ASSESSMENT COMPLETE - IMPROVING IN STRENGTH. CIWA ASSESSMENT NEGATIVE. VS WNL AND STABLE ON MONITOR, DUE TO POWER OUTAGE AND MEDITECH FREEZE VS ARE UNABLE TO BE RECORDED AT THIS TIME. POC REVIEWED WITH PT, ALL QUESTIONS ANSWERED, PLAN TO TRANSFER TO M/S FLOOR TODAY.
--- NOTE | 2023-09-23 09:56 | EKG ---
[facility] [address] [facility] [place] [address] Signed Normal sinus rhythm Minimal voltage criteria for LVH, may be normal variant ( [place] product ) Anterior infarct (cited on or before 01-FEB-2016) T wave abnormality, consider lateral ischemia Abnormal ECG When compared with ECG of 04-SEP-2023 23:13, ST elevation now present in Anterior leads Confirmed by SMITHA KUMAR MD ([id number]) on 09/23/2023 9:56:14 AM Electronically Signed By: SMITHA KUMAR 09/23/23 0956 PATIENT NAME: KAMILAH IBARRA Electrocardiogram DATE OF : 75 PHYSICIAN: SMITHA KUMAR REPORT #: [id number] REPORT IS CONFIDENTIAL AND NOT TO BE RELEASED WITHOUT AUTHORIZATION
--- NOTE | 2023-09-23 10:30 | NUR ---
Spoke with pt. She states she cont. to no feel well and c/o pain from a fall at home. Pt denies needs for dc. She would like her sister, Parisa, called to see if she can dc to her home. She also asks if I will notify Parisa two friends are staying at her home. She does not want them there as they are drinking. She would like family to tell them to leave. She denies other needs. I will contact Parisa about dc.
--- NOTE | 2023-09-23 11:00 | NUR ---
Called and left a message for Parisa, pts sister. Asked if she would return my call.
--- NOTE | 2023-09-23 11:30 | NUR ---
PT ASSISTED UP TO BSC 1 PERSON ASSIST. FULL BATH PROVIDED WITH CLEAN GOWN AND SOCKS. REYNOLDS CARE COMPLETE.
--- NOTE | 2023-09-23 11:57 | NUR ---
REPORT PROVIDED TO MS FREYA MICHELLE - ALL QUESTIONS ANSWERED. PT TRANSFERED TO ROOM 121.
--- NOTE | 2023-09-23 12:28 | NUR ---
VITAL SIGN TAB LOCKED OUT D/T POWER OUTAGE, VITAL SIGNS BELOW: BLOOD PRESSURE: 103/53 (66) OXYGEN SATURATION: 100% PULSE: 79 TEMPERATURE: 97.6 RESPIRATIONS: 20 PT UP TO CHAIR IN ROOM EATING LUNCH, REQUESTS A BREATHING TREATMENT. NO CHANGE IN SKIN FROM MORNING ASSESSMENT. PT STATES PAIN IS 8/10 "ALL OVER", REQUESTS TYLENOL, GIVEN. LUNG SOUNDS CLEAR, DIMINISHED IN LOWER LOBES. I.S. AT THE BEDSIDE, PT ENCOURAGED TO USE. DR. KUMAR TO THE BEDSIDE, STATES TO CHANGE DIET ORDER TO ADVANCE TOLERATED WITH 60G CARB DIET, REPEAT BACK PERFORMED, ORDER ENTERED. PT LEGS ELEVATED ON CHAIR. REYNOLDS CATHETER REMAINS IN PLACE WITH CLEAR YELLOW CONCENTRATED URINE DRAINING VIA GRAVITY. PT STATES NO FURTHER NEEDS AT THIS TIME, CALL LIGHT WITHIN REACH.
--- NOTE | 2023-09-23 13:39 | NUR ---
Was able to reach Parisa, pts sister. She states pt cannot go to her home as she has 16 steps. Pt not able to walk stairs when she is in better health. Parisa will be off work and will be able to stay with pt at her house. She will also make sure people staying in home leave. Parisa will not be able to pick Liv up until Thursday. Let her know I am unsure when pt will be able to dc. Also gave info for contacting [facility] to start the process for intermediate medicaid for a cg in the home.
--- NOTE | 2023-09-23 14:13 | NUR ---
VISITED DURING SPIRITUAL CARE ROUNDS. PT RECEIVING NURSING CARE. DID NOT INTERRUPT. PROVIDED PRAYER.
--- NOTE | 2023-09-23 15:15 | NUR ---
PT REQUESTS TO MOVE FROM CHAIR TO BED. PT UP TO BED WITH FWW AND SBA. PT STATES NO FURTHER NEEDS AT THIS TIME, CALL LIGHT WITHIN REACH.
[2023-09-23 17:15] LABS: ALBUMIN 1.6 g/dL (3.4-5.0); ALBUMIN/GLOBULIN RATIO 0.52 (1.1-2.4); BILIRUBIN, TOTAL 6.2 ng/dL (0.2-1.0); BUN/CREATININE RATIO 13.13 (6.0-28.6); CALCIUM 6.7 mg/dL (8.5-10.1); CREATININE, SERUM 2.36 mg/dL (0.55-1.02); PROTEIN, TOTAL 4.7 g/dL (6.4-8.2)
--- NOTE | 2023-09-23 19:15 | NUR ---
REPORT RECEIVED FROM VIVIANA PILLAI. pt RESTING IN THE BED. NO NEEDS AT THIS TIME. BOARD UPDATED. CALL LIGHT WITHIN REACH.
--- NOTE | 2023-09-23 21:24 | NUR ---
BOILERMAKER SHIP ENTERED ROOM AND OBTAINED VITALS. PT STATED SHE NEEDED TO HAVE A BM. BOILERMAKER SHIP GOT RN FOR ASSISTANCE. BOILERMAKER SHIP AND RN ASSISTED PT TO BSC. PT BED LINENS CHANGED. PT BLOOD SUGAR CHECKED. PT STATED SHE WAS DONE HAVING A BM. BOILERMAKER SHIP CLEANED PT AND APPLIED BARRIER CREAM. PT BREIF CHANGED AND BOILERMAKER SHIP PREFORMED CATH CARE. BOILERMAKER SHIP OBTAINED I&O. ICE WATER REFILLED. PT STATES NO FURTHER NEEDS AT THIS TIME. PRIMARY NURSE IN ROOM AND CALL LIGHT WITHIN REACH.
--- NOTE | 2023-09-23 21:30 | NUR ---
ASSESSMENT AND VITAL SIGNS DONE. SCHEDULED AND PRN MEDICATION ADMINISTERED. pt DENIES ANY NEEDS AT THIS TIME. IV ASSESSED, WNL. IV ABX INFUSING PER ORDER, SEE MAR.
--- NOTE | 2023-09-23 23:30 | NUR ---
pt RESTING IN THE BED WITH EYES CLOSED. RR EVEN AND UNLABORED. CALL LIGHT WITHIN REACH.
[2023-09-24] VITALS (8 sets, daily range): BP systolic 92–109; BP diastolic 41–53
--- NOTE | 2023-09-24 01:38 | NUR ---
pt RESTING IN THE BED WITH EYES CLOSED. RR EVEN AND UNLABORED. CALL LIGHT WITHIN REACH.
--- NOTE | 2023-09-24 03:45 | NUR ---
pt CALLED AND ASKED TO BE CLEANED. pt WAS INCONTINENT OF BOWEL. VITAL SIGNS DONE. WATER REFRESHED. CALL LIGHT WITHIN REACH. BRIEF CHANGED. pt DENIES ANY OTHER NEEDS AT THIS TIME.
[2023-09-24 05:52] LABS: HEMATOCRIT 27.1 % (35.0-50.0); HEMOGLOBIN 9.2 g/dL (12.0-18.0); MCH 32.5 (27-36); MCV 95.5 fl (81-99); RBC 2.83 M/ul (4.3-5.7); RDW 16.9 (10.5-15.0)
[2023-09-24 06:05] LABS: PLATELET COUNT 34 K/uL (140-440)
[2023-09-24 06:08] LABS: ALBUMIN 1.5 g/dL (3.4-5.0); ALBUMIN/GLOBULIN RATIO 0.5 (1.1-2.4); ANION GAP 13.4 (7-21); BILIRUBIN, TOTAL 6.2 ng/dL (0.2-1.0); BUN/CREATININE RATIO 14.47 (6.0-28.6); CALCIUM 6.7 mg/dL (8.5-10.1); CREATININE, SERUM 2.21 mg/dL (0.55-1.02); MAGNESIUM 1.8 mg/dL (1.8-2.4); POTASSIUM 3.4 mmol/L (3.5-5.1); PROTEIN, TOTAL 4.5 g/dL (6.4-8.2)
[2023-09-24 06:10] LABS: BANDS, MANUAL DIFF 8; EOSINOPHILS, MANUAL DIFF 2; LYMPHOCYTES, MANUAL DIFF 9; MONOCYTES, MANUAL DIFF 12; NEUTROPHILS, MANUAL DIFF 69
--- NOTE | 2023-09-24 06:10 | NUR ---
pt RESTED FOR MOST OF THE NIGHT. SCHEDULED AND PRN MEDICATIONS ADMINISTERED PER ORDER. pt UP A COUPLE TIMES IN THE NIGHT TO USE THE BSC. NO OTHER NEEDS THROUGH OUT THE NIGHT.
--- NOTE | 2023-09-24 07:10 | NUR ---
REPORT RECEIVED FROM NIGHT RN - PT RESTING IN BED WITH EYES CLOSED, RR EVEN AND UNLABORED. CALL LIGHT IN REACH.
--- NOTE | 2023-09-24 08:06 | NUR ---
PATIENT IN BED AT THIS TIME. BLOODSUGAR TAKEN AND CHARTED. CALL LIGHT WITHIN REACH, NO FURTHER NEEDS AT THIS TIME.
[2023-09-24] MEDS ORDERED: FOLIC ACID 1 MG TAB PO SCH (09:00)
[2023-09-24] MEDS ORDERED: THIAMINE HCL 100 MG TAB PO SCH (09:00)
[2023-09-24] MEDS ORDERED: MULTIVITAMINS/MINERALS 1 EA TAB PO SCH (09:00)
--- NOTE | 2023-09-24 09:15 | NUR ---
PT ASSISTED UP TO CHAIR AFTER ATTENDS CHANGE FROM LIQUID INC STOOL. REYNOLDS CARE COMPLETE. PT A STANDBY ASSIST TO CHAIR USING FWW. PRN TYLENOL ADMINISTERED FOR GENERALIZED PAIN. ASSESSMENT COMPLETE.
--- NOTE | 2023-09-24 10:25 | NUR ---
NOTIFIED BY PHYSICAL THERAPY THAT PT C/O CHEST PAIN. PT IN BATHROOM ON COMMODE, C/O CHEST PAIN WITHOUT PAIN RATING. PT TRANSFERED BACK TO RECLINER. PT STATES PAIN SLIGHTLY IMPROVED. BP 110/52, MAP 66, HEART RATE 81, O2 SAT 99%. DR KUMAR CALLED, TELEPHONE ORDER READ BACK FOR STAT EKG AND TROP. ORDERS PLACED.
--- NOTE | 2023-09-24 10:36 | NUR ---
ROLL THREADER OPERATOR PROVIDED FRESH LINENS TO PATIENTS BED. CALL LIGHT WIHTIN REACH, NO FURTHER NEEDS AT THIS TIME.
--- NOTE | 2023-09-24 10:49 | NUR ---
PATIENT IN BED AT THIS TIME. VITALS AND I&O'S CHARTED. CALL LIGHT WITHIN REACH, NO FURTHER NEEDS AT THIS TIME.
--- NOTE | 2023-09-24 11:10 | NUR ---
MD ROUNDING IN ROOM TO EVALUATE PT AND CHEST PAIN COMPLAINTS. EKG COMPLETED AND REVIEWED BY MD. NO NEW ORDERS.
--- NOTE | 2023-09-24 11:20 | NUR ---
DR KUMAR ROUNDLEIGHA ON PT, REVIEWED EKG AND LABS. NO NEW ORDERS AT THIS TIME.
--- NOTE | 2023-09-24 11:26 | NUR ---
VISITED DURING SPIRITUAL CARE ROUNDS. PT RECEIVING NURSING CARE. DID NOT INTERRUPT. PROVIDED PRAYER.
--- NOTE | 2023-09-24 11:40 | NUR ---
PT REQUESTING NEB TREATMENT, RT NOTIFIED.
--- NOTE | 2023-09-24 12:10 | NUR ---
PT SITTING UP IN CHAIR - COMPLAINING OF PAIN AT STATLOCK SITE, REMOVED AND LOTION PROVIDED. ORACLE BPM DEVELOPER IN ROOM TO TAKE CBG FOR LUNCH. CALL LIGHT IN REACH.
--- NOTE | 2023-09-24 14:20 | NUR ---
Spoke with Liv. Assisted her to call her sister as she has difficulty using her cell phone. Also having difficulty texting.
--- NOTE | 2023-09-24 14:36 | EKG ---
[facility] [address] [place] [address] Signed Sinus rhythm with 1st degree AV block with fusion complexes and premature atrial complexes with aberrant conduction Anterior infarct (cited on or before 01-FEB-2016) Abnormal ECG When compared with ECG of 21-SEP-2023 13:00, fusion complexes are now present aberrant conduction is now present ST no longer elevated in Anterior leads Confirmed by SMITHA KUMAR MD ([id number]) on 09/24/2023 2:36:12 PM Electronically Signed By: SMITHA KUMAR 09/24/23 1436 PATIENT NAME: KAMILAH IBARRA Electrocardiogram DATE OF : 75 PHYSICIAN: SMITHA KUMAR REPORT #: [id number] REPORT IS CONFIDENTIAL AND NOT TO BE RELEASED WITHOUT AUTHORIZATION
--- NOTE | 2023-09-24 14:55 | NUR ---
PATIENT IN CHAIR AT THIS TIME. SUPERINTENDENT JOB HELPED PATIENT TO RESTROOM AND THEN BACK TO [facility]. VITALS AND I&O'S CHARTED. CALL LIGHT WITHIN REACH, NO FURTHER NEEDS AT THIS TIME.
--- NOTE | 2023-09-24 17:26 | NUR ---
PT HAD A BM ON THE CHAIR COMMERCIAL LINES MANAGER ASKED ME TO HELP HER GET CLEANED UP. FROM HER CHAIR SHE WENT TO HER BED AND WE DID CHANELLE CARE ON HER AND ASKED IS SHE WANTED A BREIF ON AND SHE DID TO PERVENT ANY ACCEDENTS. GOT HER A NEW GOWNED AND GOT HER BLANKETS AND SAT HER UP FOR DINNER AND REFILLED HER WATER. PT DIDNT NEED ANYTHING ELSE AND CALL LIGHT IS WITHIN REACH.
--- NOTE | 2023-09-24 17:53 | NUR ---
PT REPORTS NAUSEA, VOMITING BILE. MD NOTIFIED, ORDERS FOR ZOFRAN RECEIVED.
--- NOTE | 2023-09-24 19:15 | NUR ---
REPORT RECEIVED FROM LORRAINE PILLAI. pt RESTING IN THE BED. BOARD UPDATED. NO OTHER NEEDS AT THIS TIME. CALL LIGHT WITHIN REACH. SCHEDULED MEDICATION ADMINISTERED.
--- NOTE | 2023-09-24 20:45 | NUR ---
PLASTIC DIE MAKER APPRENTICE OBTAINED VITALS AND I&O. BLOOD SUGAR CHECKED. PT STATES NO FURTHER NEEDS AT THIS TIME. CALL LIGHT WITHIN REACH AND RN IN ROOM.
--- NOTE | 2023-09-24 21:30 | NUR ---
ASSESSMENT AND VITAL SIGNS DONE. BLOOD GLUCOSE CHECKED, RESULTS OF 98 NO SS INSULIN NEEDED. pt RESTING IN THE BED. SCHEDULED MEDICATIONS ADMINISTERED, PRN MEDS ADMINISTERED, SEE MAR. pt DENIES ANY OTHER NEEDS AT THIS TIME. CALL LIGHT WITHIN REACH.
[2023-09-25] VITALS (7 sets, daily range): BP systolic 101–115; BP diastolic 39–53
--- NOTE | 2023-09-25 00:10 | NUR ---
pt RESTING IN THE BED WITH EYES CLOSED. RR EVEN AND UNLABORED. CALL LIGHT WITHIN REACH.
--- NOTE | 2023-09-25 03:34 | NUR ---
pt RESTING IN THE BED WITH EYES CLOSED. RR EVEN AND UNLABORED. CALL LIGHT WITHIN REACH.
--- NOTE | 2023-09-25 04:44 | NUR ---
CALL LIGHT ANSWERED. PT STATED SHE NEEDED TO HAVE A BM. PORCELAIN ENAMEL REPAIRER AND RN ASSISTED PT TO BEDSIDE COMMODE. PT BED LINENS CHANGED DUE TO BM. PT FINISHED HAVING BM ON COMMODE. PORCELAIN ENAMEL REPAIRER CHANGED PT GOWN AND ASSISTED PT WITH CLEANING AND APPLIED BARRIER CREAM. PT BREIF CHANGED. PORCELAIN ENAMEL REPAIRER AND RN ASSISTED PT BACK TO BED AND BOOSTED PT IN BED. PT ICE WATER REFIILED AND PT GIVEN A WARM BLANKET. PORCELAIN ENAMEL REPAIRER OBTAINED VITALS AND I&O. REYNOLDS BAG EMPTIED. PT STATES NO FURTHER NEEDS AT THIS TIME. CALL LIGHT PLACED WITHIN REACH.
[2023-09-25 05:18] LABS: HEMATOCRIT 29.6 % (35.0-50.0); HEMOGLOBIN 10.1 g/dL (12.0-18.0); MCH 32.6 (27-36); MCV 95.9 fl (81-99); RBC 3.09 M/ul (4.3-5.7); RDW 17.2 (10.5-15.0)
[2023-09-25 05:30] LABS: PLATELET COUNT 47 K/uL (140-440)
[2023-09-25 05:35] LABS: ALBUMIN 1.6 g/dL (3.4-5.0); ALBUMIN/GLOBULIN RATIO 0.46 (1.1-2.4); ANION GAP 15.3 (7-21); BILIRUBIN, TOTAL 7.6 ng/dL (0.2-1.0); BUN/CREATININE RATIO 14.21 (6.0-28.6); CALCIUM 7.3 mg/dL (8.5-10.1); CREATININE, SERUM 2.04 mg/dL (0.55-1.02); MAGNESIUM 1.9 mg/dL (1.8-2.4); POTASSIUM 3.3 mmol/L (3.5-5.1); PROTEIN, TOTAL 5.1 g/dL (6.4-8.2)
[2023-09-25 05:37] LABS: BANDS, MANUAL DIFF 2; EOSINOPHILS, MANUAL DIFF 6; LYMPHOCYTES, MANUAL DIFF 12; MONOCYTES, MANUAL DIFF 6; NEUTROPHILS, MANUAL DIFF 74
--- NOTE | 2023-09-25 06:21 | NUR ---
pt RESTED FOR MOST OF THE NIGHT. PRN ATIVAN ADMINISTERED FOR AGITATION. CHANELLE CARE DONE. pt HAD LOOSE STOOLS. SCHEDULED MEDICATIONS ADMINISTERED.
--- NOTE | 2023-09-25 07:30 | NUR ---
RECEIVED REPORT FROM FREYA LYNN. PT RESTING IN BED WITH EYES CLOSED, BREATHING EVEN AND UNLABORED. CALL LIGHT WITHIN REACH.
--- NOTE | 2023-09-25 08:50 | NUR ---
PT WORKING WITH PHYSICAL THERAPY AND OCCUPATIONAL THERAPY.
--- NOTE | 2023-09-25 09:15 | NUR ---
PT SITTING UP IN BED WORKING WITH PHYSICAL THERAPY AND OT. PT HAS 2 LIQUID BOWEL MOVEMENTS DURING THIS ASSESSMENT, PT CLEANED WITH ASSISTANCE, BARRIER CREAM APPLIED, NEW DEPENDS AND GOWN IN PLACE, FRESH LINENS PLACED. CATHETER CARE COMPLETED. CIWA CONTINUES TO BE NEGATIVE. PT STATES NO FURTHER NEEDS AT THIS TIME, AFTER WORKING WITH PHYSICAL THERAPY, PT SITTING UP IN BED EATING BREAKFAST, CALL LIGHT WITHIN REACH.
--- NOTE | 2023-09-25 10:04 | NUR ---
PT TAKES PO MEDICATIONS W/O DIFFICULTY, STATES NO NEEDS AT THIS TIME, CALL LIGHT WITHIN REACH.
--- NOTE | 2023-09-25 10:52 | NUR ---
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 [facility]'S PHONE NUMBER AND PAPER WORK GIVEN TO PATIENT. PATIENT IS VERY SLEEPY AND UNABLE TO KEEP HER EYES OPEN AND HOLD A CONVERSATION. PATIENT'S SISTER WILL BE HERE THURSDAY. PATIENT REFUSES SNF AND DOES NOT WANT TO TALK ABOUT FUTURE CARE NEEDS.
[2023-09-25] MEDS ORDERED: POTASSIUM CHLORIDE 10 MEQ TABCR PO ONE (11:00)
--- NOTE | 2023-09-25 11:33 | NUR ---
PT REFUSES TO GET UP TO CHAIR AT THIS TIME, PLAN MADE WITH PT TO GET UP TO CHAIR FOR LUNCH, PT AGREES TO THIS PLAN. PT STATES NO FURTHER NEEDS AT THIS TIME, CALL LIGHT WITHIN REACH.
--- NOTE | 2023-09-25 11:45 | NUR ---
VISITED DURING SPIRITUAL CARE ROUNDS. PT ASKED TO REST SO SHORT VISIT. PROVIDED PRAYER.
--- NOTE | 2023-09-25 12:45 | NUR ---
PT UP TO CHAIR WITH SBA AND FWW. FEET ELEVATED. PT REQUESTS WARM BLANKET AND ICE WATER, GIVEN. PT STATES NO FURTHER NEEDS AT THIS TIME, CALL LIGHT WITHIN REACH.
--- NOTE | 2023-09-25 15:15 | NUR ---
PT HAS INCONTINENT LIQUID BOWEL MOVEMENT IN BED, PT CLEANED, BARRIER CREAM APPLIED, NEW CHUX AND DEPENDS IN PLACE. PT STATES NO FURTHER NEEDS AT THIS TIME, CALL LIGHT WITHIN REACH.
--- NOTE | 2023-09-25 19:15 | NUR ---
REPORT RECEIVED FROM VIVIANA PILLAI. pt RESTING IN THE BED. BOARD UPDATED. CALL LIGHT WITHIN REACH.
--- NOTE | 2023-09-25 21:43 | NUR ---
WINDLACE MACHINE OPERATOR OBTAINED VITALS AND I&O. BLOOD SUGAR CHECKED AND REYNOLDS BAG EMPTIED. PT STATES NO FURTHER NEEDS AT THIS TIME. CALL LIGHT PLACED WITHIN REACH.
--- NOTE | 2023-09-25 21:55 | NUR ---
ASSESSMENT AND VITAL SIGNS DONE. SCHEDULED MEDS ADMINISTERED. pt DENIES ANY NEEDS AT THIS TIME. pt A&O X4. CALL LIGHT WITHIN REACH.
--- NOTE | 2023-09-25 23:54 | NUR ---
pt RESTING IN THE BED WITH EYES CLOSED. RR EVEN AND UNLABORED. CALL [facility] WITHIN REACH.
[2023-09-26] VITALS (8 sets, daily range): BP systolic 101–121; BP diastolic 34–61
--- NOTE | 2023-09-26 00:45 | NUR ---
pt CALLED AND STATED SHE HAD MESSED HERSELF. THIS RN AND CNC WOOD LATHE OPERATORSushma RICARDO WENT IN TO HELP pt CLEAN UP. NEW BRIEF AND LINNENS PROVIDED. 1PA TO BSC. REYNOLDS CARE DONE AND BARRIER CREAM ON BUTTOCKS. WATER REFRESHED. pt DENIES ANY OTHER NEEDS AT THIS TIME. CALL LIGHT WITHIN REACH.
--- NOTE | 2023-09-26 02:53 | NUR ---
pt RESTING IN THE BED WITH EYES CLOSED. RR EVEN AND UNLABORED. CALL LIGHT WITHIN REACH.
--- NOTE | 2023-09-26 04:52 | NUR ---
pt RESTING IN THE BED WITH EYES CLOSED. RR EVEN AND UNLABORED. CALL LIGHT WITHIN REACH.
--- NOTE | 2023-09-26 05:41 | NUR ---
CENTRIFUGAL DRIER OPERATOR OBTAINED VITALS AND I&O. PT STATES NO FURTHER NEEDS AT THIS TIME. CALL LIGHT WITHIN REACH.
[2023-09-26 05:56] LABS: HEMOGLOBIN 8.7 g/dL (12.0-18.0)
[2023-09-26 06:01] LABS: HEMATOCRIT 25.2 % (35.0-50.0); MCH 33.4 (27-36); MCHC 34.4 g/dl (30-36); MCV 97.1 fl (81-99); PLATELET COUNT 54 K/uL (140-440); RDW 16.9 (10.5-15.0)
[2023-09-26 06:15] LABS: INR 1.77 (0.80-1.30); PROTIME 20.2 Sec (11.2-14.2)
[2023-09-26 06:21] LABS: ALBUMIN 1.4 g/dL (3.4-5.0); ALBUMIN/GLOBULIN RATIO 0.47 (1.1-2.4); ANION GAP 12.6 (7-21); BILIRUBIN, TOTAL 6.7 ng/dL (0.2-1.0); CALCIUM 7.2 mg/dL (8.5-10.1); CREATININE, SERUM 1.8 mg/dL (0.55-1.02); MAGNESIUM 1.7 mg/dL (1.8-2.4); POTASSIUM 3.6 mmol/L (3.5-5.1); PROTEIN, TOTAL 4.4 g/dL (6.4-8.2)
[2023-09-26 06:25] LABS: BASOPHILS, MANUAL DIFF 3; EOSINOPHILS, MANUAL DIFF 2; LYMPHOCYTES, MANUAL DIFF 12; MONOCYTES, MANUAL DIFF 12; NEUTROPHILS, MANUAL DIFF 71
--- NOTE | 2023-09-26 07:20 | NUR ---
RECEIVED REPORT FROM FREYA LYNN. PT RESTING IN BED WITH EYES CLOSED, BREATHING EVEN AND UNLABORED. CALL LIGHT WITHIN REACH.
--- NOTE | 2023-09-26 08:40 | NUR ---
THIS RN CALLED TO BEDSIDE BY FLIGHT INSTRUCTOR D/T PT C/O HEADACHE, NO PRN PAIN MEDICATION AVAILABLE, MD NOTIFIED. PT COUGHING UP SCANT AMOUNT OF BLOOD, STATES "THAT HAPPENS A LOT", MD NOTIFIED, MD TO BEDSIDE.
[2023-09-26] MEDS ORDERED: MAGNESIUM CHLORIDE 64 MG TABCR PO ONE (09:00)
--- NOTE | 2023-09-26 09:20 | NUR ---
PT AWAKE IN BED, STATES PAIN IN HEADACHE REMAINS AT 8/10. DENIES SOB, BUT STATES SHE FEELS CONGESTED. LUNG SOUNDS COURSE IN ALL LOBES BUT FOR RUL WHICH WAS CLEAR. ABDOMEN CONTINUES TO BE TENDER ALONG WITH FULL BODY ESPECIALLY WITH MOVEMENT OR TO TOUCH. PT STATES NO NEEDS AT THIS TIME, CALL LIGHT WITHIN REACH.
--- NOTE | 2023-09-26 10:32 | NUR ---
THIS RN CALLED TO ROOM BY CHEMICAL UNIT OPERATOR, CHEMICAL UNIT OPERATOR AND PHYSICAL THERAPIST CHANGING PT, VAGINAL BLEEDING PRESENT. THIS RN ASKS PT ABOUT LAST MENSTRUAL PERIOD, PT STATES SHE HAS NOT HAD ONE IN "OVER FIVE YEARS". THIS RN NOTIFIES MD CLARE TO THE BEDSIDE.
[2023-09-26] MEDS ORDERED: ACETAMINOPHEN 325 MG TAB PO PRN (11:45)
--- NOTE | 2023-09-26 12:08 | NUR ---
PATIENT IN BED AT THIS TIME. PHYSICAL THERAPY IN ROOM WITH SANDER OPERATOR. PATIENT NEEDS A BRIEF CHANGE DUE TOO HAVING A LIQUID BOWEL MOVEMENT IN BRIEF. LINENS AND BREIF WERE SOILED. SANDER OPERATOR CHNAGED AND CLEANED PATIENT, THEN PATIENT HAS ANOTHER LIQUID BOWEL MOVEMENT. SANDER OPERATOR AND PHYSICAL THERAPY MOVED PATIENT INTO BATHROOM TO SIT ON TOILET AND CONTINUE HER BOWEL MOVEMENT. SANDER OPERATOR THEN CHANGED LINENS AND CLEANED PATIENT, SANDER OPERATOR ALSO NOTICED BLOOD IN AND AROUND PATIENT VAGINAL AREA. RN HAS BEEN NOTIFIED. PATIENT IS NOW BACK INTO BED. CALL LIGHT WITHIN REACH, NO FURTHER NEEDS AT THIS TIME.
[2023-09-26] MEDS ORDERED: MAGNESIUM CHLORIDE 64 MG TABCR ONE (14:31)
--- NOTE | 2023-09-26 19:31 | NUR ---
REPORT RECEIVED FROM DAY SHIFT RN. PT LYING IN BED RESTING WITH EYES CLOSED. RESPIRATIONS EVEN. CALL LIGHT IN REACH.
--- NOTE | 2023-09-26 19:47 | NUR ---
Board has been updated and call light has been placed within reach
--- NOTE | 2023-09-26 20:20 | NUR ---
THIS RN INTO PATIENT ROOM, COULD HEAR SOBBING. ASKED PATIENT, "WHATS GOING ON?" PATIENT SAID, "I JUST HURT ALL OVER AND I THINK I MADE A MESS AGAIN" THIS RN SAID "THATS OK, WE WILL GET YOU CLEANED UP AND REPOSITIONED IN BED" THIS RN ADMINSTERED ATIVAN PO PRN FOR ANXIETY. THEN CARES PROVIDED.
--- NOTE | 2023-09-26 21:03 | NUR ---
PATIENT NOW RESTING IN BED ALERT AND ORIENTED, LESS ANXIOUS, NOT TEARFUL. SHE REPORTS HEARTBURN AFTER EATING, WOULD LIKE MEDICATIONS FOR THIS.
[2023-09-26] MEDS ORDERED: PANTOPRAZOLE SODIUM 40 MG TABEC PO SCH (21:13)
[2023-09-26] MEDS ORDERED: SIMETHICONE 125 MG TABLET CHEWABLE PO PRN (21:45)
[2023-09-26] MEDS ORDERED: ondansetron HCL 4 MG/2 ML VIAL IV PRN (21:45)
--- NOTE | 2023-09-26 22:06 | NUR ---
CALLED TO DISCUSS PATIENT REPORT OF SEVERE PAIN IN ABD, THAT SHE REPORTS JUST STARTED AFTER EATING SOLID FOOD, SHE ALSO REPORTS INCREASED ABD PRESSURE/TIGHTNESS. POSSIBLY GAS, NEW ORDERS. SAT PATIENT UP TO TAKE MEDICATIONS AFTER ZOFRAN SHE REPORTS FEELING NAUSEA, PATIENT NOTED TO HAVE MULTIPLE HUGE BURPS. PATIENT TOOK ALL MEDICATIONS AND THEN ASKED FOR A JELLO.
--- NOTE | 2023-09-26 22:26 | NUR ---
EVENING ASSESSMENT COMPLETE. PT TEARFUL AT TIMES AND LAUGHING AT OTHERS. REPORTS ABD PAIN. PRN'S ADMIN BY MANAGER CAR. BOWEL TONES ACTIVE. ABD SOFT. REYNOLDS PATENT WITH ORANGE TINGED URINE. IVF INFUSING PER ORDER. CLEAR LIQUIDS PROVIDED. PT DENIES FURTHER NEEDS. CALL LIGHT IN REACH.
[2023-09-27] VITALS (8 sets, daily range): BP systolic 104–120; BP diastolic 45–51
--- NOTE | 2023-09-27 00:14 | NUR ---
PATIENT IS RESTING IN BED WITH EYES CLOSED, RR 15. CALL LIGHT IN REACH. BED ALARM ON FOR SAFETY. IV INFUSING PER ORDER.
--- NOTE | 2023-09-27 02:37 | NUR ---
PT RESTING IN BED WITH EYES CLOSED. RESPIRATIONS EVEN. CALL LIGHT IN REACH.
--- NOTE | 2023-09-27 03:34 | NUR ---
IV PUMP ALARMING. ISSUE RESOLVED. PT INCONTINENT OF SMALL AMOUNT DARK BROWN LIQUID BM. CHANELLE/REYNOLDS CARE COMPLETE. VAGINAL BLEEDING NOTED. CLEAN BRIEF IN PLACE. PT ABLE TO BOOST/REPOSITION SELF IN BED WITH ENCOURAGEMENT. NO FURTHER NEEDS. CALL LIGHT IN REACH.
[2023-09-27 05:16] LABS: HEMATOCRIT 23.8 % (35.0-50.0); HEMOGLOBIN 8.3 g/dL (12.0-18.0); MCH 33.6 (27-36); MCHC 34.8 g/dl (30-36); MCV 96.5 fl (81-99); PLATELET COUNT 64 K/uL (140-440); RBC 2.47 M/ul (4.3-5.7); RDW 17.2 (10.5-15.0)
[2023-09-27 05:28] LABS: ALBUMIN 1.3 g/dL (3.4-5.0); ALBUMIN/GLOBULIN RATIO 0.42 (1.1-2.4); ANION GAP 11.3 (7-21); BILIRUBIN, TOTAL 6.6 ng/dL (0.2-1.0); BUN/CREATININE RATIO 17.39 (6.0-28.6); CALCIUM 7.4 mg/dL (8.5-10.1); CREATININE, SERUM 1.61 mg/dL (0.55-1.02); MAGNESIUM 1.7 mg/dL (1.8-2.4); POTASSIUM 3.3 mmol/L (3.5-5.1); PROTEIN, TOTAL 4.4 g/dL (6.4-8.2)
[2023-09-27 05:58] LABS: BASOPHILS, MANUAL DIFF 1; EOSINOPHILS, MANUAL DIFF 1; LYMPHOCYTES, MANUAL DIFF 12; MONOCYTES, MANUAL DIFF 10; NEUTROPHILS, MANUAL DIFF 73
--- NOTE | 2023-09-27 06:51 | NUR ---
VS AND I&O OBTAINED. IV ABX INFUSING PER ORDER. NO C/O PAIN OR NAUSEA AT THIS TIME. PT DENIES NEEDS. CALL LIGHT IN REACH.
--- NOTE | 2023-09-27 07:15 | NUR ---
RECEIVED REPORT FROM FREYA GOLDEN.
--- NOTE | 2023-09-27 07:30 | NUR ---
PT RESTING IN BED WITH EYES CLOSED, RESPIRATIONS EVEN AND UNLABORED. CALL LIGHT WITHIN REACH.
[2023-09-27] MEDS ORDERED: MAGNESIUM CHLORIDE 64 MG TABCR PO ONE (09:00)
[2023-09-27] MEDS ORDERED: POTASSIUM CHLORIDE 10 MEQ TABCR PO ONE (09:00)
--- NOTE | 2023-09-27 09:22 | NUR ---
PT WORKING WITH PHYSICAL THERAPY.
--- NOTE | 2023-09-27 09:43 | NUR ---
PATIENT VITALS AND I/O'S COMPLETED. PATIENT UP TO WALK WITH PT AND THIS MARKETING DESIGNER. PATIENT COMPLETED ONE SHORT LAP AROUND MED/SURG. THEN TO THE BATHROOM, WHEN THIS MARKETING DESIGNER WIPED, THERE WAS REMINENCE OF CHRIS RED BLOOD. PATIENT TO CHAIR AFTERWARDS, WARM BLANKETS AND ICE WATER GIVEN. CALL LIGHT WITHIN REACH.
--- NOTE | 2023-09-27 10:15 | NUR ---
PT UP TO CHAIR AWAKE, REQUESTS BREATHING TREATMENT, RT TO BEDSIDE. PT STATES PAIN IS 8/10 IN THE LOWER ABDOMEN, REQUESTS HEAT PACK AND WARM BLANKETS, GIVEN. PT STATES HEAT PACK FEELS "HELPFUL" FOR CRAMPING PAIN. PT STATES SHE STILL HAS A MILD COUGH THIS MORNING, BUT THAT IT HAS IMPROVED, STATES SHE HAS NOT HAD ANY PRODUCTION OF SPUTUM OR BLOOD FROM COUGH TODAY. LACTULOSE HELD PER ORDER D/T PT HAVING 3 BMs SINCE LAST DOSE TIME. PT CONTINUES TO HAVE VAGINAL BLEEDING AT THIS TIME. PT STATES NO NEEDS AT THIS TIME, CALL LIGHT WITHIN REACH.
--- NOTE | 2023-09-27 11:05 | NUR ---
PT REQUESTS ADDITIONAL HEAT PACK, GIVEN. PT STATES NO FURTHER NEEDS AT THIS TIME. CALL LIGHT WITHIN REACH.
[2023-09-27] MEDS ORDERED: PANTOPRAZOLE SODIUM 40 MG TABEC PO ONE (11:15)
[2023-09-27] MEDS ORDERED: PANTOPRAZOLE SODIUM 40 MG TABEC PO SCH (11:15)
[2023-09-27] MEDS ORDERED: TRIMETHOPRIM/SULFAMETHOXAZOLE 1 EA TAB PO SCH (11:20)
--- NOTE | 2023-09-27 19:18 | NUR ---
REPORT RECEIVED FROM DAY SHIFT RN. PT LYING IN BED RESTING WITH EYES CLOSED. RESPIRATIONS EVEN. WHITE BOARD UPDTED. CALL LIGHT IN REACH.
--- NOTE | 2023-09-27 21:08 | NUR ---
EVENING ASSESSMENT COMPLETE. SCHEDULED MEDS ADMIN PER EMAR. PT TEARFUL AND ANXIOUS AT TIMES DURING CARES. PRN FOR ANXIETY ADMIN PER REQUEST. NO C/O PAIN OR NAUSEA AT THIS TIME. PT INCONTINENT OF LIQUID BM. VAGINAL BLEEDING NOTED. CHANELLE/REYNOLDS CARE DONE. BARRIER CREAM APPLIED TO BUTTOCKS. NEW ATTENDS IN PLACE. PT ABLE TO ASSIST WITH CARES AND PULL SELF UP IN BED. REYNOLDS PATENT WITH ORANGE COLORED URINE. IVF INFUSING PER ORDER. SF HOT CHOCOLATE PROVIDED PER REQUEST. NO FURTHER NEEDS. CALL LIGHT IN REACH.
--- NOTE | 2023-09-27 23:13 | NUR ---
PT RESTING IN BED WITH EYES CLOSED. RESPIRATIONS EVEN. CALL LIGHT IN REACH.
--- NOTE | 2023-09-27 23:55 | NUR ---
CALL LIGHT ANSWERED. PT C/O "BURNING" BETWEEN ABD SKIN FOLDS. NO REDNESS OR OPENED AREAS NOTED. NO ODOR PRESENT. SKIN CLEANSED. CREAM APPLIED. NO FURTHER NEEDS.
[2023-09-28] VITALS (7 sets, daily range): BP systolic 101–126; BP diastolic 45–47
--- NOTE | 2023-09-28 03:12 | NUR ---
PT LYING IN BED WITH EYES CLOSED. PT REPOSITIONED SELF TO LEFT SIDE. RESPIRATIONS EVEN. CALL LIGHT IN REACH.
[2023-09-28 05:44] LABS: HEMATOCRIT 24.2 % (35.0-50.0); HEMOGLOBIN 8.3 g/dL (12.0-18.0); MCH 33.4 (27-36); MCHC 34.1 g/dl (30-36); MCV 97.7 fl (81-99); PLATELET COUNT 71 K/uL (140-440); RBC 2.48 M/ul (4.3-5.7); RDW 17.4 (10.5-15.0)
[2023-09-28 06:09] LABS: ALBUMIN 1.3 g/dL (3.4-5.0); ALBUMIN/GLOBULIN RATIO 0.38 (1.1-2.4); ANION GAP 13.9 (7-21); BILIRUBIN, TOTAL 6.1 ng/dL (0.2-1.0); BUN/CREATININE RATIO 16.21 (6.0-28.6); CALCIUM 7.2 mg/dL (8.5-10.1); CREATININE, SERUM 1.48 mg/dL (0.55-1.02); POTASSIUM 3.9 mmol/L (3.5-5.1); PROTEIN, TOTAL 4.7 g/dL (6.4-8.2)
[2023-09-28 06:17] LABS: BANDS, MANUAL DIFF 3; BASOPHILS, MANUAL DIFF 1; LYMPHOCYTES, MANUAL DIFF 5; MONOCYTES, MANUAL DIFF 10; NEUTROPHILS, MANUAL DIFF 78
--- NOTE | 2023-09-28 06:31 | NUR ---
PT RESTING IN BED WITH EYES CLOSED. AWAKENS EASILY. VS AND I&O OBTAINED. BLOODY DISCHARGE NOTED. CHANELLE/REYNOLDS CARE DONE. PT REQUIRES FREQUENT QUEING AND ENCOURAGEMENT TO PARTICIPATE IN CARES. SODA AND WATER PROVIDED PER REQUEST. NO FURTHER NEEDS.
--- NOTE | 2023-09-28 07:23 | NUR ---
REPORT RECIEVED FROM V BELT BUILDER RN. PT RESTING IN BED. CALL LIGHT IN REACH.
[2023-09-28] MEDS ORDERED: LACTATED RINGER'S 1,000 ML IV SCH (08:00)
--- NOTE | 2023-09-28 08:08 | NUR ---
GOT PT UP IN THE CHAIR AND CHANGED LINENS. ASKED PT IF SHE WANTED A WASH CLOTH TO WASH HER FACE AND SHE DID PT DIDNT NEED ANYTHING ELSE FROM ME AND CALL LIGHT IS WITHIN REACH.
[2023-09-28] MEDS ORDERED: MAGNESIUM SULFATE 2 GM/50 ML BAG IV SCH (08:15)
--- NOTE | 2023-09-28 08:48 | NUR ---
VISITED DURING SPIRITUAL CARE ROUNDS. PT DECLINED MEDICATION NURSE VISIT, INDICATED PHYSICAL DISCOMFORT, ASKED FOR QUIET. PROVIDED SUPPORTIVE PRESENCE, PRAYER.
--- NOTE | 2023-09-28 08:50 | NUR ---
PT UP IN CHAIR. SHIFT ASSESSMENT COMPLETE. PT C/O ABD PAIN. 10/23. PT MEDICATION ADMINISTERED PER EMAR. BOWEL TONES ACTIVE. REYNOLDS DRAINING WELL, YELLOW URINE. FOOD TRAY PLACED IN FRONT OF PT. DENIES ANY NEEDS AT THIS TIME. CALL LIGHT IN REACH.
--- NOTE | 2023-09-28 09:48 | NUR ---
PATIENT SLEEPING IN CHAIR. SECOND BAG OF IV MAGNESIUM INFUSING FOR ONE HOUR.
--- NOTE | 2023-09-28 10:15 | NUR ---
SPOKE WITH PATIENT REGARDING SNF PLACEMENT. PATIENT STATED TO STAFF OVER WEEKEND SHE IS WILLING TO GO TO SNF AT [place]. WHEN SPEAKING WITH PATIENT, SHE DOES NOT OPEN EYES AND KEEPS BLANKET PULLED OVER NOSE AND MOUTH. ASKED PATIENT IF SHE IS WANTING SN[place] PLACEMENT [place], SHE INFORMED STAFF OVER THE WEEKEND. STATES SHE WANTS TO DISCUSS THIS WITH FAMILY FURTHER. ASKED PATIENT IF SHE WOULD LIKE REFERRAL SENT TO VERIFY IF BED IS AVAILABLE AND IF FACILITY CAN ACCEPT HER. STATES SHE IS OK WITH THIS AT THIS TIME.
--- NOTE | 2023-09-28 11:04 | NUR ---
PT UP IN CHAIR. COSMETICS MACHINE OPERATOR IN ROOM. CALL LIGHT IN REACH
--- NOTE | 2023-09-28 11:15 | NUR ---
SPOKE WITH LORRAINE, SISTER. SHE WOULD LIKE PATIENT TO GO TO SNF IF SHE AGREES. STATES HER HOUSE HAS TOO MANY STAIRS AND IF SHE WERE TO GO HOME, LORRAINE WOULD ONLY BE ABLE TO CHECK ON HER A "COUPLE TIMES A WEEK."
--- NOTE | 2023-09-28 11:21 | NUR ---
SPOKE TO PATIENT WITH DR. MCALLISTER. PATIENT IS WILLING TO GO TO SNF IN OR [place], [place].
--- NOTE | 2023-09-28 11:45 | NUR ---
CHART FAXED TO [facility] FOR REFERRAL.
[2023-09-28] MEDS ORDERED: MORPHINE SULFATE 4 MG/ML VIAL IV ONE (12:15)
--- NOTE | 2023-09-28 12:35 | NUR ---
[facility] HAS NOT RECEIVED FULL CHART, ONLY 3 PAGES. CLINICALS REFAXED TO [facility].
--- NOTE | 2023-09-28 12:37 | NUR ---
1216 PATIENT REPORTING 9/[address] MCALLISTER NOTIFIED, VITALS CYCLING, CALL TO RT FOR EKG, LAB NOTIFIED OF UPCOMING CARDIAL LABS BEING ORDERED. 1220 LAB IN TO DRAW BLOOD. EKG COMPLETE AND GIVEN TO DR. MCALLISTER. 1238 PATIENT GIVEN 2MG OF IV MORPHINE FOR CONTINUED 9/10 LEFT CHEST PAIN.
--- NOTE | 2023-09-28 12:57 | NUR ---
PT SITTING UP IN CHAIR EATING LUNCH. PT DENIES ANY NEEDS. CALL LIGHT IN REACH
--- NOTE | 2023-09-28 13:51 | NUR ---
REPORT TO FREYA SORIA.
--- NOTE | 2023-09-28 14:39 | NUR ---
REPORT RECEIVED CARE ASSUMED. PT IS ALERT SITTING UP IN THE CHAIR REQUESTS TO MOVE TO THE BED. SBA WTIH FWW PT RESTING NOW CALL LIGHT AND NEEDED ITEMS ON BEDSIDE TABLE
--- NOTE | 2023-09-28 14:41 | NUR ---
VISITED DURING SPIRITUAL CARE ROUNDS. PT APPEARED TO BE SLEEPING. DID NOT DISTURB. PROVIDED PRAYER.
[2023-09-28 16:48] LABS: FOLLICLE STIMULATING HORMONE 0.7 IU/L (())
[2023-09-28] MEDS ORDERED: LACTOBACILLUS RHAMNOSUS GG 1 EACH CAP PO SCH (17:00)
--- NOTE | 2023-09-28 17:49 | NUR ---
PT SITTING UP IN BED EATING EVENING MEAL, DENIES NEEDS AT THIS TIME
--- NOTE | 2023-09-28 19:25 | NUR ---
REPORT RECEIVED FROM DAY SHIFT RN. PT LYING IN BED RESTING WITH EYES CLOSED. RESPIRATIONS EVEN. WHITE BOARD UPDATED. CALL LIGHT IN REACH.
--- NOTE | 2023-09-28 20:08 | NUR ---
Charge nurse note: Pt opens eyes when calling her name, goes back to sleep, no distress noted, fluids and call light at hands reach
--- NOTE | 2023-09-28 21:19 | EKG ---
[facility] [address] [place] [address] Signed Sinus rhythm with 1st degree AV block Low voltage QRS Possible Inferior infarct , age undetermined Cannot rule out Anteroseptal infarct (cited on or before 01-FEB-2016) Abnormal ECG When compared with ECG of 24-SEP-2023 10:26, fusion complexes are no longer present aberrant conduction is no longer present Borderline criteria for Inferior infarct are now present ST now depressed in Inferior leads Confirmed by Kati Mcallister MD () on 09/28/2023 9:18:58 PM Electronically Signed By: KATI MCALLISTER MD 09/28/232118 PATIENT NAME: KAMILAH IBARRA Electrocardiogram DATE OF : 75 PHYSICIAN: KATI MCALLISTER MD REPORT #: [id number] REPORT IS CONFIDENTIAL AND NOT TO BE RELEASED WITHOUT AUTHORIZATION
--- NOTE | 2023-09-28 22:13 | NUR ---
pt cooperative with vitals and accucheck. cbg 103, f/c care, patent drainig dark yellow urine. was incontinent of soft bm. sanguineous vaginal drainage noted moderate amount noted in attends, primary RN notified. Pt was cooperative, and helped repositioning up in bed.
--- NOTE | 2023-09-28 22:30 | NUR ---
EVENING ASSESSMENT COMPLETE. SCHEDULED MEDS ADMIN PER EMAR. LACTULOSE HELD DUE TO PT HAVING AT LEAST THREE BOWEL MOVEMENTS TODAY. PT DENIES PAIN OR NAUSEA. DENIES CHEST PAIN. NO NEEDS AT THIS TIME. CALL LIGHT IN REACH.
--- NOTE | 2023-09-29 00:13 | NUR ---
PT RESTING IN BED WITH EYES CLOSED. RESPIRATIONS EVEN. CALL LIGHT IN REACH.
--- NOTE | 2023-09-29 02:09 | NUR ---
PT RESTING IN BED WITH EYES CLOSED. RESPIRATIONS EVEN. CALL LIGHT IN REACH.
[2023-09-29 04:49] VITALS: BP 112/49
--- NOTE | 2023-09-29 04:58 | NUR ---
PT INCONTINENT OF MEDIUM AMOUNT BM. TRAINING MGR ASSIST WITH CHANELLE/REYNOLDS CARE AND CHANGE ATTENDS. TRAINING MGR REPORTS SMALL AMOUNT VAGINAL BLEEDING. VS AND I&O OBTAINED. REYNOLDS PATENT WITH QS ORANGE TINGED URINE. NEW BAG IVF INFUSING PER ORDER. JUICE AND WATER PROVIDED PER REQUEST. NO FURTHER NEEDS.
[2023-09-29 05:55] LABS: HEMATOCRIT 24.2 % (35.0-50.0); HEMOGLOBIN 8.2 g/dL (12.0-18.0); MCH 33.4 (27-36); PLATELET COUNT 76 K/uL (140-440); RBC 2.47 M/ul (4.3-5.7); RDW 17.6 (10.5-15.0)
[2023-09-29 06:09] LABS: BASOPHILS, MANUAL DIFF 2; EOSINOPHILS, MANUAL DIFF 1; LYMPHOCYTES, MANUAL DIFF 18; MONOCYTES, MANUAL DIFF 4; NEUTROPHILS, MANUAL DIFF 75
[2023-09-29 06:16] LABS: ALBUMIN 1.4 g/dL (3.4-5.0); ALBUMIN/GLOBULIN RATIO 0.4 (1.1-2.4); ANION GAP 11.7 (7-21); BILIRUBIN, TOTAL 5.5 ng/dL (0.2-1.0); BUN/CREATININE RATIO 15.43 (6.0-28.6); CALCIUM 7.2 mg/dL (8.5-10.1); CREATININE, SERUM 1.49 mg/dL (0.55-1.02); MAGNESIUM 1.8 mg/dL (1.8-2.4); POTASSIUM 3.7 mmol/L (3.5-5.1); PROTEIN, TOTAL 4.9 g/dL (6.4-8.2)
--- NOTE | 2023-09-29 07:37 | NUR ---
PT RESTING EYES CLOSED AT TIME OF SHIFT REPORT, LEFT UNDISTURBED. FRESH H20 TO BEDSIDE CALL LIGHT IN REACH
--- NOTE | 2023-09-29 08:01 | NUR ---
DID HRLY ROUNDING ON PT AND TOOK BLOOD SUGARS. UPDATED BOARD AND CHARTED BLOOD SUGAR. ASKED PT IF SHE WANTED TO GET UP TO THE CHAIR FOR BREAKFAST. PT WANTED TO EAT BREAKFAST IN BED NURSE WAS NOTIFIED AND WAS OKAY WITH IT AND SAID WE WOULD GET HER UP AFTER BREAKFAST. REFILLED PT WATER AND PT DIDNT NEED ANYTHING ELSE FROM ME CALL LIGHT IS WITHIN REACH.
--- NOTE | 2023-09-29 08:56 | NUR ---
PT DECLINES UP TO THE CHAIR. EATS 100% OF MORNING MEAL RETURNS TO RESTING EYES CLOSED. PT C/O HEADACHE REFUSES OFFER OF TYLENOL. C/O STOMACHE ACHE ACCEPTS A WARM PACK FOR COMFORT. PT DENIES OTHER NEEDS AT THIS TIME.
--- NOTE | 2023-09-29 09:37 | NUR ---
YOLIE FROM [facility] STATES THEY ARE UNABLE TO ACCEPT PATIENT DUE TO PREVIOUS ETOH USE.
--- NOTE | 2023-09-29 09:43 | NUR ---
CHART FAXED TO [facility] AT [facility], SISTER LORRAINE PRINGLE.
[2023-09-29 09:59] VITALS: BP 112/47
--- NOTE | 2023-09-29 10:18 | NUR ---
VISITED DURING SPIRITUAL CARE ROUNDS. PT APPEARED TO BE SLEEPING. DID NOT DISTURB. PROVIDED PRAYER.
--- NOTE | 2023-09-29 10:57 | NUR ---
CHART FAXED TO [facility] FOR REVIEW.
--- NOTE | 2023-09-29 11:20 | NUR ---
PT ENCOURAGED TO GET UP OUT OF BED. SHE DECLINES STATING SHES DOESN'T FEEL WELL. PT REPORTS SHE JUST SPOKE WITH DR MCALLISTER AND TOLD HIM SHE DOESN'T FEEL WELL. PT DENIES SPECIFIC NEED. CALL LIGHT AND NEEDED ITEMS IN REACH
[2023-09-29 13:42] VITALS: BP 106/43
--- NOTE | 2023-09-29 13:58 | NUR ---
PT HAS CONTINUED RESTING IN BED EYES CLOSED THIS SHIFT DESPITE ENCOURAGEMENT AND EFFORTS TO MOTIVATE. P/T IN TO WORK WITH HER NOW.
--- NOTE | 2023-09-29 14:31 | NUR ---
PT UP TO THE TOILET ABLE TO MOVE HER BOWELS. VOIDS WITHOUT DIFFICULTY LEONARDO DC'D 0900. PT STILL HAS BLOOD IN HER URINE NO C/O DISCOMFORT. SHE IS UP WALKING WITH P/T AT THIS TIME
--- NOTE | 2023-09-29 14:49 | NUR ---
CALLED AND SPOKE WITH GABBY AT [facility] [place], SHE HAS NOT YET BEEN ABLE TO SEE PATIENT CHART. SENT CHART TO HER AGAIN.
--- NOTE | 2023-09-29 15:17 | NUR ---
MULTIPLE ATTEMPTS TO FAX CLINICALS TO [facility] IN [place]. FAX WILL NOT GO THROUGH. CALLED AND LEFT MESSAGE REQUESTING FAX NUMBER. CHART FAXED TO [facility].
--- NOTE | 2023-09-29 15:42 | NUR ---
PATIENT HAS BEEN IN HOUSE X 8 DAYS. SHE IS ON A 60 GM CONS CARB DIET. HER APPETITE IS GOOD, EXCEPT AFTER EATING 100% OF BREAKFAST SHE BECAME NAUSEOUS AND DIDN'T EAT MUCH LUNCH. NO NUTRITION RECOMMENDATIONS OR CHANGES AT THIS TIME. CONTINUE 60 GM CONS CARB DIET. THIS RD WILL FOLLOW UP IN 3 MORE DAYS TO SEE IF PATIENT IS STILL NAUSEOUS.
--- NOTE | 2023-09-29 18:02 | NUR ---
PT HAS BEEN IN CHAIR SINCE WORKING WITH P/T. CALLS APPROPRIATELY FOR TOILETING. BACK TO RECLINER WITH EVENING MEAL.
[2023-09-29 18:31] VITALS: BP 119/50
--- NOTE | 2023-09-29 19:33 | NUR ---
REPORT RECEIVED FROM DAY SHIFT RN. PT LYING IN BED ALERT AND ORIENTED. WARM BLANKET PROVIDED. NO FURTHER NEEDS. WHITE BOARD UPDATED. CALL LIGHT IN REACH.
[2023-09-29 20:17] VITALS: BP 121/51
--- NOTE | 2023-09-29 20:34 | NUR ---
PT RESTING WITH EYES CLOSED. AWAKENS EASILY. VS AND I&O OBTAINED. EVENING ASSESSMENT COMPLETE. SCHEDULED MEDS ADMIN PER EMAR. NO C/O PAIN AT THIS TIME. PT REPORTS NAUSEA AND ANXIETY. PRN'S ADMIN PER EMAR. IVF INFUSING PER ORDER. ASSISTED PT REPOSITION IN BED. NO FURTHER NEEDS. CALL LIGHT IN REACH.
[2023-09-29 20:36] VITALS: BP 121/51
--- NOTE | 2023-09-29 22:54 | NUR ---
PT RESTING IN BED ON LEFT SIDE. EYES CLOSED. RESPIRATIONS EVEN. CALL LIGHT IN REACH.
--- NOTE | 2023-09-30 00:21 | NUR ---
PT CALLED TO USE RESTROOM, PORT ENGINEER WENT IN GOT PT UP AND WALKED WITH PT INTO RESTROOM. PT ALMOST DID NOT MAKE IT. PT PAD WAS A LITTLE BIT WET. PT VOIDED MORE IN THE RESTROOM. PT ALSO HAD A LOOSE BM. PT GOT A NEW BRIEF AND PAD. PT IS BACK IN BED AND HAS CALL LIGHT.
--- NOTE | 2023-09-30 03:02 | NUR ---
PT RESTING IN BED WITH EYES CLOSED. RESPIRATIONS EVEN. CALL LIGHT IN REACH.
[2023-09-30 05:13] VITALS: BP 122/51
--- NOTE | 2023-09-30 06:05 | NUR ---
CALL LIGHT ANSWERED. PT UP TO BR WITH FWW AND SBA TO VOID AND HAVE LARGE LIQUID BM. AT SINK FOR AM CARES. BACK TO BED, NAINA WELL. GAIT STEADY. VS AND I&O OBTAINED. NO FURTHER NEEDS. CALL LIGHT IN REACH.
--- NOTE | 2023-09-30 08:00 | NUR ---
Patient sleeping in bed, eyes closed, respirations even and non labored. Personal supplies and call light within reach.
--- NOTE | 2023-09-30 08:27 | NUR ---
PATIENT IN BED AT THIS TIME. CALL LIGHT WITHIN REACH, NO FURTHER NEEDS AT THIS TIME.
--- NOTE | 2023-09-30 08:59 | NUR ---
SPOKE WITH GABBY CORDERO AT THE [facility]. REVIEWING PATIENT CHART AT THIS TIME. WILL CALL WHEN THEY DECIDE IF THEY ARE ABLE TO ACCEPT PATIENT TO SNF.
--- NOTE | 2023-09-30 09:00 | NUR ---
Spoke with Tiny. She is still in agreement for placement to SNF. Reviewed IMM letter she has already signed. Pt states understanding and does not want to appeal. Pt was discussed in 8:30 meeting. Pt is doing better, but concern remains for pt. to care for self at home. Walking has improved. Catheter was removed yesterday and pt is walking to the bathroom with assist.
[2023-09-30 09:06] VITALS: BP 106/44
--- NOTE | 2023-09-30 09:35 | NUR ---
Patient awake, alert to self and place. Patient reports she is nauseated this morning. Admin zofran 4mg IV at this time. Patient is on room air, respirations even and non labored. Patient close to RN station, personal supplies and call light within reach.
--- NOTE | 2023-09-30 11:03 | NUR ---
PT RESTING IN BED WITH EYES CLOSED. RESPIRATIONS EVEN AND UNLABORED. NO S/S OF PAIN/ DISTRESS. CALL LIGHT WITHIN REACH.
--- NOTE | 2023-09-30 11:56 | NUR ---
PATIENT IN BED AT THIS TIME. PATIENT REPORTED SOME NAUSEA, RN HAS BEEN NOTIFIED. PATIENT ALSO REQUESTED JIUCE. CALL LIGHT WITHIN REACH, NO FURTHER NEEDS AT THIS TIME.
--- NOTE | 2023-09-30 11:58 | NUR ---
PATIENT IN BED AT THIS TIME. PATIENT REPORTED NAUSEA, RN HAS BEEN NOTIFIED. CALL LIGHT WITHIN REACH, NO FURTHER NEEDS AT THIS TIME.
[2023-09-30] MEDS ORDERED: CETIRIZINE HCL 10 MG TAB PO SCH (13:11)
[2023-09-30] MEDS ORDERED: FLUTICASONE PROPIONATE 50 MCG BTL NAS PRN (13:15)
[2023-09-30] MEDS ORDERED: SODIUM CHLORIDE 0.9% 1,000 ML IV SCH (13:15)
--- NOTE | 2023-09-30 13:29 | NUR ---
Called and spoke with Telma at [facility] at the [facility], she does have the chart but has not received confirmation from her DNS. I received a text from Kim at [facility] at [phone] they are reviewing charts at this time. I attempted to call [facility] in [place] as I sent the chart early this am, message left asking if the chart had been reviewed.
--- NOTE | 2023-09-30 13:34 | NUR ---
Received a text from Erica at [facility], they are declining this pt.
[2023-09-30 14:41] VITALS: BP 120/50
--- NOTE | 2023-09-30 16:20 | NUR ---
PT RESTING IN BED. CALL LIGHT IN REACH
--- NOTE | 2023-09-30 16:26 | NUR ---
Patient resting in bed, eyes closed, respirations even and non labored. IV fluids infusing, respirations even and non labored.
--- NOTE | 2023-09-30 16:56 | NUR ---
PT. IN BED RESTING WITH EYES CLOSED. RESPIRATIONS EVEN AND UNLABORED. NO S/S OF PAIN/ DISTRESS. CALL LIGHT WITHIN REACH.
[2023-09-30 18:42] VITALS: BP 125/50
--- NOTE | 2023-09-30 19:15 | NUR ---
REPORT RECEIVED FROM KATHIE PILLAI. pt RESTING IN THE BED. BOARD UPDATED. WARM BLANKETS PROVIDED. pt DENIES ANY NEEDS AT THIS TIME. CALL LIGHT WITHIN REACH.
[2023-09-30] MEDS ORDERED: BUMETANIDE 1 MG TAB PO SCH (21:00)
[2023-09-30 21:59] VITALS: BP 116/53
--- NOTE | 2023-09-30 22:00 | NUR ---
REGISTERED NURSE CARDIAC OBTAINED VITALS AND INTAKE. NO NEW OUTPUT NOTED. PT STATES SHE WANTS SOME ATIVAN. RN NOTFIED. PT STATES NO FURTHER NEEDS AT THIS TIME. CALL LIGHT WITHIN REACH.
--- NOTE | 2023-09-30 22:15 | NUR ---
ASSESSMENT DONE. pt UP TO BSC, 1PA WITH FWW. NEW BRIEF AND PAD CHANGED. SCHEDULED AND PRN MEDICATION ADMINISTERED, SEE MAR. WATER REFRESHED. ORANGE JUICE GIVEN PER pt REQUEST. pt DENIES ANY OTHER NEEDS AT THIS TIME. CALL LIGHT WITHIN REACH.
[2023-10-01 00:28] VITALS: BP 116/53
--- NOTE | 2023-10-01 00:30 | NUR ---
pt RESTING IN THE BED WITH EYES CLOSED. RR EVEN AND UNLABORED. CALL LIGHT WITHIN REACH.
--- NOTE | 2023-10-01 01:55 | NUR ---
pt RESTING IN THE BED WITH EYES CLOSED. RR EVEN AND UNLABORED. CALL LIGHT WITHIN REACH.
--- NOTE | 2023-10-01 03:13 | NUR ---
CALL LIGHT ANSWERED. PT SAID SHE NEEDED TO USE BSC. CHART CHANGER ASSISTED PT WITH FWW TO BSC. PT STATED THAT SHE HAD ALREADY WENT AND NEEDED A NEW BREIF. CHART CHANGER ASSISTED PT WITH CHANGING BREIF AND GOWN. CHART CHANGER PLACED CLEAN CHUCKS PAD ON BED. PT ASSISTED BACK TO BED. CHART CHANGER CLEANED BSC. PT STATES NO FURTHER NEEDS AT THIS TIME. CALL LIGHT PLACED WITHIN REACH.
[2023-10-01 06:12] VITALS: BP 111/47
--- NOTE | 2023-10-01 06:13 | NUR ---
HOSTESS PARTY SALES REPRESENTATIVE OBTAINED VITALS AND I&O. PT STATES NO FURTHER NEEDS AT THIS TIME. CALL LIGHT WITHIN REACH.
--- NOTE | 2023-10-01 06:15 | NUR ---
VITAL SIGNS AND ASSESSMENT DONE. pt RESTING IN THE BED. pt DENIES ANY NEEDS AT THIS TIME. CALL LIGHT WITHIN REACH.
--- NOTE | 2023-10-01 08:20 | NUR ---
Aftab Alvarez at [facility]. Asked if they will be able to accept this pt. She has not received confirmation from her DNS. Let her know we are going into report. She will let me know when she hears.
[2023-10-01] MEDS ORDERED: SPIRONOLACTONE 25 MG TAB PO SCH (09:00)
[2023-10-01 09:02] VITALS: BP 101/36
--- NOTE | 2023-10-01 09:10 | NUR ---
Received a text from Kim, they will accept today. I will check if the sister can transport. Called sister and she cannot until after 4 pm. Called the van and they can transport at 10:00. I called Dr. Dempsey and she can complete orders in this amt of time. Orders printed and taken to her office.
--- NOTE | 2023-10-01 09:15 | NUR ---
In and spoke with Liv updated she has been accepted to [facility]. She remains in agreement to go to rehab. Her phone is and she requests I call her sister. Called and spoke with Parisa and prefers pt does not dc to home and wants her to complete rehab. She lives within 15 miles of the rehab.
[2023-10-01 09:22] VITALS: BP 101/36
--- NOTE | 2023-10-01 09:30 | NUR ---
Orders a PASRR faxed to Kim at [facility] with note I will fax DC summary when completed. I called [facility] and spoke with Irma Lo. Asked if I can use one of their Visa gift cards to pay for transport. (We used during covid and there is one left) She agreed. I texted Hosea at transport, we will be providing a $100 gift card and asked whatever is not used be given to Tiny.
--- NOTE | 2023-10-01 09:50 | NUR ---
DC summary faxed to Kim.
--- NOTE | 2023-10-01 10:00 | NUR ---
Called pts sister Parisa and updated pt is going to [facility] by marbella cedillo. She is very happy pt was accepted and says she will let us know how her rehab goes.
== END 2023-10-01 09:55 | DRG 690 ==
LOC: ED 11:57 → MS 20:43 → CCU 20:43 → MS 09-23 11:50
PROVIDERS: Emergency Medicine; Family Medicine; ADMIT Internal Medicine; ATTEND Internal Medicine
PROC: 30233N1 Transfusion of Nonautologous Red Blood Cells into Peripheral Vein, Percutaneous Approach (ICD-10-PCS; principal; 2023-09-21)
DX: N39.0 Urinary tract infection, site not specified (principal); E87.1 Hypo-osmolality and hyponatremia; R78.81 Bacteremia; N17.9 Acute kidney failure, unspecified; F10.139 Alcohol abuse with withdrawal, unspecified; K74.60 Unspecified cirrhosis of liver; F41.9 Anxiety disorder, unspecified; N93.9 Abnormal uterine and vaginal bleeding, unspecified; E66.01 Morbid (severe) obesity due to excess calories; E87.6 Hypokalemia; E83.42 Hypomagnesemia; N18.30 Chronic kidney disease, stage 3 unspecified; B96.20 Unspecified Escherichia coli [E. coli] as the cause of diseases classified elsewhere; D69.6 Thrombocytopenia, unspecified; F32.A Depression, unspecified; J44.9 Chronic obstructive pulmonary disease, unspecified; I12.9 Hypertensive chronic kidney disease with stage 1 through stage 4 chronic kidney disease, or unspecified chronic kidney disease; E78.5 Hyperlipidemia, unspecified; E11.22 Type 2 diabetes mellitus with diabetic chronic kidney disease; J45.909 Unspecified asthma, uncomplicated; W19.XXXA Unspecified fall, initial encounter; D63.1 Anemia in chronic kidney disease; Z87.01 Personal history of pneumonia (recurrent); Z87.891 Personal history of nicotine dependence; Z90.89 Acquired absence of other organs; Z90.49 Acquired absence of other specified parts of digestive tract; Z98.890 Other specified postprocedural states; Z79.899 Other long term (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; Z79.51 Long term (current) use of inhaled steroids
CPT/HCPCS: 36415; 36430; 36592; 51702; 51798; 70450; 71250; 72125; 73030; 73560; 74018; 74176; 76856; 80048; 80053; 80307; 81001; 82140; 83001; 83605; 83690; 83735; 83930; 83935; 84300; 84484; 84703; 85025; 85610; 86850; 86900; 86901; 86922; 87040; 87077; 87186; 93005; 93010; 94640; 94667; 94668; 94760; 96374; 96375; 97110; 97116; 97162; 97166; 97530; 97535; 99285-25; A9270; A9270-GY; G0480; J1815; J2270; J2405; J2543; J3010; J3411; J3475; J7030; J7121; P9016; P9035

== ENCOUNTER 2024-01-13 16:36 | Inpatient (IN) | payer MEDICARE, OTHER ==
[~2024-01-13] VITALS: Ht 172.7 cm; Wt 101.7 kg
[~2024-01-13 16:36] MED LIST changes: +ALDACTONE100 MG PO; -ALDACTONE25 MG PO; +FLUTICASONE PRO16 GM NAS; +IMIQUIMOD1 EACH TOP
[2024-01-13] MEDS ORDERED: ondansetron HCL 4 MG/2 ML VIAL IV ONE (18:00)
[2024-01-13 18:07] LABS: BILIRUBIN, URINE NEGATIVE (negative); BLOOD/HGB, URINE NEGATIVE (Negative); KETONE, URINE NEGATIVE (Negative); LEUK ESTERASE, URINE SMALL (negative); NITRITE, URINE NEGATIVE (negative)
[2024-01-13 18:14] LABS: BACTERIA, URINE 1+ /hpf (negative); CASTS, URINE NONE SEEN \\lpf; COLLECTION TYPE, URINE CLEAN CATCH; CRYSTALS, URINE NONE SEEN (0-1+); REFLEX CULTURE, URINE No (No); WHITE BLOOD CELLS, URINE 21-40 /HPF (0-5)
[2024-01-13] MEDS ORDERED: PROTONIX40 MG PO (18:14)
[2024-01-13 18:15] LABS: EPITHELIAL CELLS, URINE SQUAMOUS 3+ /lpf (0-1+)
[2024-01-13 18:18] LABS: BASOPHILS 1.4 % (0-2); EOSINOPHILS 2.4 % (0-6); HEMATOCRIT 34.8 % (35.0-50.0); HEMOGLOBIN 11.9 g/dL (12.0-18.0); LYMPHOCYTES 29.4 % (24-44); MCH 30.9 (27-36); MCHC 34.2 g/dl (30-36); MCV 90.4 fl (81-99); MONOCYTES 12.8 % (0-12); PLATELET COUNT 87 K/uL (140-440); RBC 3.85 M/ul (4.3-5.7); RDW 15.9 (10.5-15.0)
[2024-01-13 18:35] LABS: ALBUMIN/GLOBULIN RATIO 0.79 (1.1-2.4); ANION GAP 15.6 (7-21); BILIRUBIN, TOTAL 5.5 ng/dL (0.2-1.0); BUN/CREATININE RATIO 7.04 (6.0-28.6); CALCIUM 9.2 mg/dL (8.5-10.1); CREATININE, SERUM 2.27 mg/dL (0.55-1.02); POTASSIUM 3.6 mmol/L (3.5-5.1); PROTEIN, TOTAL 6.8 g/dL (6.4-8.2)
[2024-01-13] MEDS ORDERED: MULTIVITAMINS 10 ML,FOLIC ACID 1 MG,THIAMINE HCL 100 MG in SODIUM CHLORIDE 0.9% 1,000 ML IV ONE (19:30)
[2024-01-13] MEDS ORDERED: MORPHINE SULFATE 4 MG/ML VIAL IV ONE (19:30)
[2024-01-13] MEDS ORDERED: FOLIC ACID 1 MG/0.2 ML ML ONE (19:35)
[2024-01-13] MEDS ORDERED: Rifaximin 200 MG TAB PO ONE ×2 (20:45→23:45)
[2024-01-13] MEDS ORDERED: LACTULOSE 20 GM/30 ML CUP PO ONE (20:45)
[2024-01-13] MEDS ORDERED: CEFTRIAXONE/SODIUM CHLORIDE 2 GM/100 ML PIGGYBACK IV ONE (20:45)
[2024-01-13] MEDS ORDERED: SODIUM CHLORIDE 0.9% 1,000 ML IV SCH (21:45)
[2024-01-13] MEDS ORDERED: PROCHLORPERAZINE EDISYLATE 10 MG/2 ML VIAL IV PRN (21:45)
[2024-01-13 22:48] VITALS: BP 145/59
--- NOTE | 2024-01-13 22:50 | NUR ---
PATIENT TO THE FLOOR BY THIS RN. PATIENT TRANSFERRED FROM STRETCHER TO BED WITH MINIMAL SBA. PATIENT NAINA WELL. VS OBTAINED AND RECORDED. ASSESSMENT COMPLETE. IV FLUSHES WNL. PATIENT DENIES NAUSEA AT THIS TIME. PATIENT HAS NO FURTHER NEEDS. CALL LIGHT IN REACH. BED ALARM ON FOR SAFETY. PAIENT EDUCATED TO ROOM AND CALL LIGHT.
[2024-01-14] VITALS (10 sets, daily range): BP systolic 120–137; BP diastolic 40–67
[2024-01-14] MEDS ORDERED: ondansetron HCL 4 MG/2 ML VIAL IV PRN
--- NOTE | 2024-01-14 00:03 | NUR ---
SCHEDULED MEDICATION ADMINISTERED. PATIENT NOW NPO AT THIS TIME. PATIENT HAS NO FURTHER NEEDS. CALL LIGHT IN REACH.
[2024-01-14] MEDS ORDERED: HYDROmorphone HCL 1 MG/ML SYR IV PRN ×2 (01:00→14:45)
--- NOTE | 2024-01-14 01:31 | NUR ---
BUNGHOLE BORER SBA FROM BSC BACK TO BED. BUNGHOLE BORER THEN OBTAINED AND DOCUMENTED I&O. PT ASKED FOR A PAIN MED, MANAGER LAB NOTIFED. PT STATES NO FURTHER NEEDS AT THIS TIME. CALL LIGHT WITHIN REACH. SCDS PLACED BACK ON AND CPOX RECONNECTED. BED ALARM ON.
--- NOTE | 2024-01-14 01:56 | NUR ---
PATIENT REPORTING 8/10 HEAD AND ABD PAIN. PRN PAIN MEDICATION ADMINISTERED PER PATIENT REQUEST. NO FURTHER NEEDS. CALL LIGHT IN REACH. BED ALARM ON FOR SAFETY. SCDs IN PLACE. PATIENT A&O x4.
--- NOTE | 2024-01-14 04:33 | NUR ---
PATIENT RESTING IN BED WITH EYES CLOSED. VS AND I&Os OBTIANED AND RECORDED. PATIENT A&O x4. PATIENT HAS NO CURRENT NEEDS AT THIS TIME. BED ALARM ON FOR SAFETY. CALL LIGHT IN REACH.
--- NOTE | 2024-01-14 05:18 | NUR ---
PAYROLL OFFICER CHECKED PT BLOOD SUGAR. BS IS 79. RN NOTIFED. VITALS OBTIANED AND DOCUMENTED. NO NEW I&O AT THIS TIME. PT STATES NO NEEDS AND CALL LIGHT IS WITHIN REACH.
[2024-01-14 05:29] LABS: HEMATOCRIT 27.6 % (35.0-50.0); HEMOGLOBIN 9.7 g/dL (12.0-18.0); MCH 31.4 (27-36); MCHC 35.1 g/dl (30-36); MCV 89.3 fl (81-99); PLATELET COUNT 71 K/uL (140-440); RDW 15.9 (10.5-15.0)
[2024-01-14 05:42] LABS: ANION GAP 13.6 (7-21); BUN/CREATININE RATIO 7.93 (6.0-28.6); CALCIUM 8.5 mg/dL (8.5-10.1); CREATININE, SERUM 1.89 mg/dL (0.55-1.02); POTASSIUM 3.6 mmol/L (3.5-5.1)
--- NOTE | 2024-01-14 06:13 | NUR ---
CALL LIGHT ANSWERED. PT NEEDED TO USE BATHROOM. VP PROJECT 1PA TO BSC. PT VOIDED AND ASSISTED BACK TO BED. OUTPUT NOTED AND PT STATES NO FURTHER NEEDS AT THIS TIME. CALL LIGHT WITHIN REACH AND BED ALARM ON.
[2024-01-14 06:20] LABS: BANDS, MANUAL DIFF 3; BASOPHILS, MANUAL DIFF 6; EOSINOPHILS, MANUAL DIFF 2; LYMPHOCYTES, MANUAL DIFF 28; MONOCYTES, MANUAL DIFF 1; NEUTROPHILS, MANUAL DIFF 60
--- NOTE | 2024-01-14 07:30 | NUR ---
PT WAS NPO FOR US, PER RADIOLOGY PT DOES NOT NEED TO BE NPO. US COMPLETED AT BEDSIDE, MD NOTIFIED AND ORDERS FOR DIET UPDATED TO CARB CONTROLLED. INSULIN SLIDING SCALE - MODERATE ORDERED PER MD, SEE MAR. PT SITTING IN BED WATCHING TV, A/OX4, PT STATES HER MENTATION IS BASELINE. DENIES NAUSEA THIS MORNING. IV FLUIDS INFUSING ORDERED. PT REQUESTING THE PHONE TO CALL DIETARY TO ORDER OWN BREAKFAST. CALL LIGHT WITHIN REACH, ALL PT CARE NEEDS MET. ICE WATER PROVIDED BEFORE LEAVING THE ROOM.
[2024-01-14] MEDS ORDERED: GLUCAGON,HUMAN RECOMBINANT 1 MG/ML VIAL SUB-Q PRN (07:45)
[2024-01-14] MEDS ORDERED: DEXTROSE 5% 1,000 ML IV PRN (07:45)
[2024-01-14] MEDS ORDERED: DEXTROSE 50% 50 ML SYR IV PRN ×2 (07:45)
[2024-01-14] MEDS ORDERED: IBLOOD GLUCOSE TEST STRIP 1 EA TEST XX PRN (07:45)
[2024-01-14] MEDS ORDERED: IBLOOD GLUCOSE TEST STRIP 1 EA TEST VI SCH (08:00)
[2024-01-14] MEDS ORDERED: INSULIN LISPRO 100 UNIT/ML ML SUB-Q SCH (08:00)
[2024-01-14] MEDS ORDERED: PANTOPRAZOLE SODIUM 40 MG/10 ML VIAL IV SCH (09:00)
[2024-01-14] MEDS ORDERED: LACTULOSE 20 GM/30 ML CUP PO SCH (09:00)
--- NOTE | 2024-01-14 09:17 | NUR ---
PT RESTING IN BED, FINISHED BREAKFAST. REPORTS PAIN STILL 6/10 TO HEAD, DID NOT C/O ABDOMINAL PAIN WHILE IN ROOM. TOOK LACTULOSE WITHOUT ANY ISSUES, TOLERATED 100% OF BREAKFAST, DENIES NAUSEA. IV FLUIDS INFUSING. ALL PT CARE NEEDS MET, WILL CONTINUE TO MONITOR. CALL LIGHT WITHIN REACH.
--- NOTE | 2024-01-14 10:01 | NUR ---
PT IN BED WHEN MD PALMER, VOMITTING, PRN ZOFRAN GIVEN - SEE MAR. PT REQUESTING HEAT TO BE TURNED DOWN, STATES SHE IS FEELING A LITTLE BETTER NOW THAT SHE VOMITTED. CALL LIGHT WITHIN REACH, ALL PT CARE NEEDS MET AT THIS TIME, WILL FOLLOW-UP IN 15 TO SEE HOW SHE IS FEELING POST ZOFRAN DOSE.
--- NOTE | 2024-01-14 10:10 | NUR ---
Spoke with Tiny. She states she has not felt well and has not been able to have a BM. She states she vomited her breakfast. She is requesting a 7up. She plans on dc to home in [facility] housing when discharged. Pt states she saw Dr. Zaidi recently and he requested she check her blood sugar and check her BP daily. He did not write scripts for either. She spoke to [facility] and was told they could not provide. I will check if we have any glucometers for b/p cuffs available. She has a cane, walker, and walk in shower. I called [facility] and asked if they have any BP cuffs for this pt. I will call [facility] to check for bp cuff and a glucometer.
--- NOTE | 2024-01-14 10:20 | NUR ---
VISITED DURING SPIRITUAL CARE ROUNDS. PT APPEARED TO BE SLEEPING. DID NOT DISTURB. PROVIDED PRAYER.
[2024-01-14] MEDS ORDERED: CONSTULOSE10 GM/15 M PO (11:22)
[2024-01-14] MEDS ORDERED: FOLIC ACID1 MG PO (11:23)
[2024-01-14] MEDS ORDERED: BIOTENE PBF473 ML MM (11:26)
[2024-01-14] MEDS ORDERED: SPIRONOLACTONE 25 MG TAB PO SCH (11:42)
[2024-01-14] MEDS ORDERED: hydrOXYzine pamoate 25 MG CAP PO PRN (11:45)
--- NOTE | 2024-01-14 11:56 | NUR ---
UR CLINICAL REVIEW: 2MN [facility] INPT FOR GASTROENTERITIS, JOSE, HEPATIC ENCEPHALOPATHY MEDICARE INPT 01/13/24 @ 2146 ORDER MATCHES REG NO AUTH REQUIRED PER MEDICARE RULES PLAN TO DC TO HOME WHEN STABLE.
[2024-01-14] MEDS ORDERED: PHARMACY RENAL DOSE ADJUSTMENT 1 DOSE MISC PO SCH (12:00)
--- NOTE | 2024-01-14 14:39 | NUR ---
REVIEWED WITH , PT C/O HEADACHE X1 WEEK NOW. ONLY THING WE HAVE FOR PAIN IS DILUAID AT THIS TIME, WITH THE HEADACHES WE DISCUSSED POTENTIAL REBOUND HEADACHES WITH DILAUDID. PER MD, CHANGE DILAUDID TO Q4HRS AND X1 DOSE IV TORADOL 30MG. ORDERS INPUT REQUESTED - SEE MAY.
[2024-01-14] MEDS ORDERED: KETOROLAC TROMETHAMINE 30 MG/ML VIAL IV ONE (14:45)
[2024-01-14] MEDS ORDERED: HYDROXYZINE PAM25 MG PO (14:51)
[2024-01-14] MEDS ORDERED: FLONASE ALLERG9.9 ML NAS (14:52)
--- NOTE | 2024-01-14 14:53 | NUR ---
MED REC COMPLETE
--- NOTE | 2024-01-14 15:15 | NUR ---
Patient reported being cold and asked for a warm blanket. No other cares were requested.
--- NOTE | 2024-01-14 16:31 | NUR ---
rounded on pt. pt is a/o, respirations even and regular. pt is talking on the phone. Rates pain 4/10. CPOX in place. IV fluids running. Call light within reach.
--- NOTE | 2024-01-14 18:01 | NUR ---
ROUNDED ON PT. PT IS A/O, RESPIRATIONS EVEN AND REGULAR. PT IS SITTING UP AND EATING DINNER. DENIES NEEDS ATT. CALL LIGHT WITHIN REACH.
--- NOTE | 2024-01-14 19:12 | NUR ---
Patient called requesting bathroom assistance. They asked for ice chips and fresh water. RN entered to recheck BP as it had been low.
--- NOTE | 2024-01-14 19:30 | NUR ---
REPORT RECIEVED FROM DAY SHIFT RN. PATIENT RESTING IN BED. DENIES NEEDS AT THIS TIME. CALL LIGHT IN REACH.
--- NOTE | 2024-01-14 20:55 | NUR ---
PLATE GRAINER VHECKED PT BLOOD SUGAR. BLOOD SUGAR 106. RN NOTIFED. PLATE GRAINER OBTAINED AND DOCUMENTED VITALS AND I&O. PT ASKING FOR PAIN MEDS. RN NOTIFED. PT STATES NO FURTHER NEEDS AT THIS TIME. CALL LIGHT WITHIN REACH.
--- NOTE | 2024-01-14 22:04 | NUR ---
PATIENT RESTING IN BED. PATIENT REPORTS 7/10 HEADACHE PAIN. PRN PAIN MEDICATION ADMINISTERED. PATIENT DENIES FURTHER NEEDS AT THIS TIME. SCDs IN PLACE. BED ALARM ON FOR SAFETY. CALL LIGHT IN REACH.
--- NOTE | 2024-01-14 23:12 | NUR ---
PATIENT RESTING IN BED ON BACK WITH EYES CLOSED. RESPIRATIONS EVEN AND UNLABORED. CALL LIGHT IN REACH.
[2024-01-15] VITALS (11 sets, daily range): BP systolic 121–137; BP diastolic 49–59
--- NOTE | 2024-01-15 01:12 | NUR ---
PATIENT RESTING IN BED ON BACK WITH EYES CLOSED. RESPIRATIONS EVEN AND UNLABORED. CALL LIGHT IN REACH.
--- NOTE | 2024-01-15 04:24 | NUR ---
CALL LIGHT ANSWERED. PATIENT REQUESTING PAIN MEDICATION FOR 09/22 HEADACHE. PRN PAIN MEDICATION ADMINISTERED. VS AND I&Os OBTAINED AND RECORDED. PATIENT UP TO BATHROOM TO VOID WITH CANE TO HAVE BM. PATIENT BACK TO BED. SCDs IN PLACE. PATIENT DENIES FURTHER NEEDS AT THIS TIME. CALL LIGHT IN REACH. BED ALARM ON FOR SAFETY.
[2024-01-15 05:43] LABS: BASOPHILS 1.7 % (0-2); EOSINOPHILS 5.6 % (0-6); HEMOGLOBIN 9.8 g/dL (12.0-18.0); MCH 31.5 (27-36); MCV 90.1 fl (81-99); MONOCYTES 9.6 % (0-12); NEUTROPHILS 57.1 % (39-80); PLATELET COUNT 61 K/uL (140-440); RDW 15.9 (10.5-15.0)
[2024-01-15 05:58] LABS: ALBUMIN 2.2 g/dL (3.4-5.0); ALBUMIN/GLOBULIN RATIO 0.76 (1.1-2.4); ANION GAP 11.9 (7-21); BILIRUBIN, TOTAL 3.5 ng/dL (0.2-1.0); BUN/CREATININE RATIO 8.5 (6.0-28.6); CALCIUM 8.5 mg/dL (8.5-10.1); POTASSIUM 3.9 mmol/L (3.5-5.1); PROTEIN, TOTAL 5.1 g/dL (6.4-8.2)
--- NOTE | 2024-01-15 07:05 | NUR ---
REPORT RECEIVED FROM COLOR CONTROL SUPERVISOR RN ANGI. PATIENT IS AWAKE WITH RESPIRATIONS EVEN AND UNLABORED. PATIENT IS REQUESTING TO BRUSH TEETH. COLOR CONTROL SUPERVISOR THERMOMETER PRODUCTION WORKER ASSISTING PATIENT AT THIS TIME. PATIENT STATED NO FURTHER NEEDS AT THIS TIME. CALL LIGHT AND PERSONAL BELONGINGS ARE WITHIN REACH.
--- NOTE | 2024-01-15 08:32 | NUR ---
ROUNDING ON PT. PT JUST STARTING ON HER BREAKFAST TRAY, SITTING UP IN BED. NO NEEDS IDENTIFIED AT THIS TIME, CALL LIGHT AND PERSONAL BELONGINGS IN REACH.
[2024-01-15] MEDS ORDERED: LACTULOSE 10 GM/15 ML ML PR SCH (09:00)
--- NOTE | 2024-01-15 09:53 | NUR ---
ROUNDING ON PT. PT RESTING IN BED ON PHONE. RN EDUCATED PT ON MEDICATED ENEMA DUE SOON, PT EXPRESSES SOME CONCERNS REGARDING URGENCY BUT AGREEABLE TO TRY ENEMA WITH BSC IN PLACE. NO OTHER NEEDS AT THIS TIME, CALL LIGHT AND PERSONAL BELONGINGS IN REACH.
--- NOTE | 2024-01-15 10:30 | NUR ---
Spoke with Tiny. She is feeling better today, but remains dizzy with some nausea. Discussed IM letter and pt signed in case she discharges over the weekend. She denies any needs.
--- NOTE | 2024-01-15 10:45 | NUR ---
INITIAL ASSESSMENT COMPLETE AND MEDICATIONS ADMINISTERED PER MAR. PT RESTING IN BED, REPORTING ABDOMINAL PAIN AND PRESSURE. DISCUSSED WITH PT THAT PTs ENEMA MAY RELIEVE PAIN AND PRESSURE, PT WANTS TO SEE IF ENEMA RELIVES PAIN BEFORE TRYING MEDICATIONS. PT IS CURRENTLY A&OX4 AND IN GOOD SPIRITS. PT LUNG SOUNDS CLEAR THROUGHOUT, HEART TONES WITH MURMUR HEARD, PT STATES SHE HAS HAD THIS MURMUR FOR "A LONG TIME". PT ON RA, CPOX AT BEDSIDE. BOWEL TONES HEARD, PT TENDER TO PALPATION AND FIRM ON LLQ. PT REPORTS HAVING A "VERY SMALL" BM THIS MORNING THAT WAS "SUPER HARD" AND "I HAD TO PUSH REALLY HARD TO GET IT OUT". PULSES 2+ IN ALL FOUR EXTREMETIES, PT REPORTS NO NUMBNESS OR TINGLING, SENSATION INTACT, DEPENDENT EDEMA NOTED IN BLE. SBA, USES CANE AT BASELINE. PT WITH SCDs IN PLACE. PT HAS VISITOR ARRIVE AT THIS TIME, VISITOR IN RECLINER AT BEDSIDE CONVERSING WITH PT. RN EDUCATED PT ON CALLING WHEN SHE FEELS THE NEED TO HAVE A BOWEL MOVEMENT POST ENEMA, PT VERBALIZES UNDERSTANDING. BSC IN PLACE, BED ALARM ON. PT STATES NO FURTHER NEEDS, CALL LIGHT AND PERSONAL BELONGINGS WITHIN REACH.
--- NOTE | 2024-01-15 11:29 | NUR ---
RN REVIEWED MEWS AND SHIFT SCREENING COMPLETE BY FREYA HUNTLEY.
--- NOTE | 2024-01-15 11:50 | NUR ---
SBA PT BACK TO BED [place] [facility], PT HAS LARGE, SOFT BOWEL MOVEMENT FOLLOWING ORDERED ENEMA. PT STATES ABDOMEN FEELS BETTER BUT IS REQUESTING PAIN MEDICATION AT THIS TIME. [facility]ANELLE-[facility] PROVIDED, NEW BRIEF IN PLACE, PT WITH VISITOR ON COUCH, PT STATES NO FURTHER NEEDS, CALL LIGHT AND PERSONAL BELONGINGS IN REACH.
--- NOTE | 2024-01-15 11:52 | NUR ---
PT NOT AVAILABLE FOR VISIT. PROVIDED PRAYER.
--- NOTE | 2024-01-15 13:36 | NUR ---
RN REVIEWED UADI, RN HOURLY ROUNDING AT THIS TIME.
--- NOTE | 2024-01-15 13:36 | NUR ---
RN REVIEWED AUDI, RN HOURLY ROUNDING AT THIS TIME.
--- NOTE | 2024-01-15 14:26 | NUR ---
ROUNDING ON PT. PT REQUESTING MARIA DE JESUS FRIAS, PROVIDED. NO OTHER NEEDS AT THIS TIME, CALL LIGHT AND PERSONAL BELONGINGS IN REACH.
--- NOTE | 2024-01-15 15:28 | NUR ---
PATIENT IS LYING IN BED WITH THE HOB ELEVATED. PATIENT IS WATCHING TV AND RESPIRATIONS ARE EVEN AND UNLABORED. CALL LIGHT AND PERSONAL BELONGINGS ARE WITHIN REACH.
--- NOTE | 2024-01-15 16:05 | NUR ---
ROUNDING ON THE PATIENT AT THIS TIME. MD STATED TO HOLD THE RECTAL LACTULOSE AND STATED HE WOULD CHANGE THE ORDER TO PO LACTULOSE PATIENT STATES SHE THINKS SHE CAN TOLERATE IT AND HAS NO DIFFICULTY SWALLOWING. RN WAITING FOR NEW ORDER. IV WRAPPED WITH A TOWEL AND COBAN TO HELP REMIND PATIENT TO KEEP ARM STRAIGHT. PATIENT EXPRESSED UNDERSTANDING. PATIENT STATED NO FURTHER NEEDS AT THIS TIME. CALL LIGHT AND PERSONAL BELONGINGS ARE WITHIN REACH.
[2024-01-15] MEDS ORDERED: LACTULOSE 20 GM/30 ML CUP PO SCH (16:15)
--- NOTE | 2024-01-15 17:21 | NUR ---
SECOND ASSESSMENT COMPLETE. PT REPORTING ABDOMINAL PAIN IS A 6/10, DOES NOT REQUEST PAIN MEDICATION AT THIS TIME. PT ALSO REPORTING MILD NAUSEA, DOES NOT REQUEST INTERVENTION AT THIS TIME. PT IS IN BED WITH HOB ELEVATED JUST FINISHING SUPPER. SUPPER TRAY REMOVED AT THIS TIME. ABDOMEN REMAINS TENDER TO PALPATION, BOWEL TONES ACTIVE IN ALL FOUR QUADRANTS. PT STATES NO FURTHER NEEDS, CALL LIGHT AND PERSONAL BELONGINGS IN REACH.
--- NOTE | 2024-01-15 17:21 | NUR ---
RN REVIEWED AUDI, RN PAIN ASSESSMENT AT THIS TIME.
--- NOTE | 2024-01-15 19:10 | NUR ---
REPORT RECEIVED FROM ANTHONY PILLAI. pt RESTING IN THE BED WITH EYES CLOSED. RR EVEN AND UNLABORED. BOARD UPDATED. CALL LIGHT WITHIN REACH.
--- NOTE | 2024-01-15 20:10 | NUR ---
CALL LIGHT ANSWERED. PT NEEDED TO USE BATHROOM. THERAPIST RADIATION 1PA TO BSC. PT VOIDED AND HAD BM. PT GIVEN NEW BREIF AND ASSISTED BACK TO BED. THERAPIST RADIATION OBTAINED AND DOCUMENTED VITALS AND I&O. PT STATES NO FURTHER NEEDS AT THIS TIME. CALL LIGHT WITHIN REACH.
--- NOTE | 2024-01-15 20:35 | NUR ---
ASSESSMENT DONE. SCHEDULED MEDICATION ADMINISTERED. pt ALERT AND ORIENTED X4. pt DENIES ANY OTHER NEEDS AT THIS TIME. CALL LIGHT WITHIN REACH. NO DEFICITS NOTICED.
--- NOTE | 2024-01-15 23:10 | NUR ---
IN RM TO HANG A NEW BAG OF FLUIDS. pt STATES SHE HAD A BM IN HER BRIEF. THIS RN HELP pt TO THE BSC. NEW BRIEF PLACED ON pt.
--- NOTE | 2024-01-15 23:30 | NUR ---
CALL LIGHT ANSWERED. PT WAS DONE ON THE BSC. BUNDLES HANGER ASSISTED PT BACK TO BED. OUTPUT MEASURED. BUNDLES HANGER BROUGHT PT SUGAR FREE JELLO AND REFILLED ICE WATER UPON PT REQUEST. PT STATES NO FURTHER NEEDS AT THIS TIME. CALL LIGHT WITHIN REACH.
--- NOTE | 2024-01-16 01:26 | NUR ---
pt RESTING IN THE BED WITH EYES CLOSED. RR EVEN AND UNLABORED. pt SATTING AT 94% ON RA. NO OTHER NEEDS AT THIS TIME. CALL LIGHT WITHIN REACH.
--- NOTE | 2024-01-16 03:31 | NUR ---
pt RESTING IN THE BED WITH EYES CLOSED. RR EVEN AND UNLABORED. CALL LIGHT WITHIN REACH.
[2024-01-16 04:18] VITALS: BP 144/54
--- NOTE | 2024-01-16 04:32 | NUR ---
ASSESSMENT AND VITAL SIGNS DONE. pt UP TO THE BSC. pt COMPLAINS OF NAUSEA. ANTINAUSEA MEDS ADMINISTERED. pt DENIES ANY OTHER NEEDS AT THIS TIME. CALL LIGHT WITHIN REACH.
[2024-01-16 05:30] LABS: BASOPHILS 0.6 % (0-2); EOSINOPHILS 6.4 % (0-6); HEMATOCRIT 29.8 % (35.0-50.0); HEMOGLOBIN 10.2 g/dL (12.0-18.0); LYMPHOCYTES 27.2 % (24-44); MCH 31.5 (27-36); MCHC 34.3 g/dl (30-36); MCV 91.9 fl (81-99); MONOCYTES 10.3 % (0-12); NEUTROPHILS 55.5 % (39-80); PLATELET COUNT 57 K/uL (140-440); RBC 3.24 M/ul (4.3-5.7); RDW 16.3 (10.5-15.0)
--- NOTE | 2024-01-16 05:49 | NUR ---
pt RESTED THROUGH OUT THE NIGHT. pt HAD ONE BM IN THE NIGHT. pt ALERT AND ORIENTED X4. NO OTHER CONCERNS AT THIS TIME.
[2024-01-16 06:15] LABS: ALBUMIN 2.3 g/dL (3.4-5.0); ALBUMIN/GLOBULIN RATIO 0.77 (1.1-2.4); BILIRUBIN, TOTAL 3.2 ng/dL (0.2-1.0); BUN/CREATININE RATIO 8.77 (6.0-28.6); CREATININE, SERUM 1.71 mg/dL (0.55-1.02); PROTEIN, TOTAL 5.3 g/dL (6.4-8.2)
--- NOTE | 2024-01-16 06:15 | NUR ---
CALL LIGHT ANSWERED. PT NEEDED TO USE BATHROOM. PRINCIPAL ASSOCIATE 1PA TO BSC. PT GIVEN CLEAN ATTENDS AND ONCE PT WAS FINISHED VOIDING, PT ASSISTED BACK TO BED. PT ICE WATER REFILLED AND OUTPUT MEASURED. PT STATES NO FURTHER NEEDS AT THIS TIME. CALL LIGHT WITHIN REACH.
--- NOTE | 2024-01-16 07:10 | NUR ---
REPORT RECIEVED FROM FREYA LYNN. PT LAYING IN BED AND RESPOND WHEN ADDRESSED. PT DENIES ANY OTHER NEEDS AT THIS TIME. CALL LIGHT IN REACH.
--- NOTE | 2024-01-16 08:06 | NUR ---
IN TO ADMINISTER MEDICATIONS, SEE MAR. PT TAKES PO MEDICATIONS WITH NO ISSUES. PT REPORTING NAUSEA, PRN NAUSEA MEDICAITON ADMINISTERED, SEE MAR. PT REPORTING ABD PAIN 6/10, PRN PAIN MEDICATION ADMINISTERED, SEE MAR. ASSESSMENT COMPLETE. LUNG SOUNDS CLEAR. BOWEL TONES ACTIVE. HEART MURMER NOTED. SCATTERED BRUISING TO BILATERAL ARMS. PT REPORTING CHRONIC NUMBNESS IN TOES ON BILATERAL FEET. EDEMA NOTED TO BILATERAL ANKLES. SCD's IN PLACE. IV FLUSHES WNL AND BRISK BLOOD RETURN NOTED. PT A&O TO ALL. PT DENIES ANY OTHER NEEDS AT THIS TIME. CALL LIGHT IN REACH.
[2024-01-16] MEDS ORDERED: PANTOPRAZOLE SODIUM 40 MG TABEC PO SCH (09:00)
[2024-01-16 09:05] VITALS: BP 129/57
[2024-01-16 10:24] VITALS: BP 129/57
--- NOTE | 2024-01-16 10:34 | NUR ---
IN TO ROUND ON PT. PT LAYING IN BED SEMI-FOWLERS. EYES CLOSED, RR EVEN AND UNLABORED. NO NEEDS IDENTIFIED AT THIS TIME. CALL LIGHT IN REACH.
--- NOTE | 2024-01-16 12:20 | NUR ---
IN TO ROUND ON PT. PT LAYING IN BED WITH EYES CLOSED, RR EVEN AND UNLABORED. O2 SATS NOTED TO BE AT 95% ON RA. NO NEEDS IDENTIFIED AT THIS TIME. CALL LIGHT IN REACH.
[2024-01-16 13:36] VITALS: BP 139/57
--- NOTE | 2024-01-16 13:36 | NUR ---
IN TO ROUND ON PT. PT LAYING IN BED. VISITORS IN ROOM. PT DENIES ANY NEEDS AT THIS TIME. CALL LIGHT IN REACH.
[2024-01-16 14:15] VITALS: BP 139/57
--- NOTE | 2024-01-16 14:20 | NUR ---
IN TO ROUND ON PT AND GO OVER DC PAPERWORK. PT SITTING UP IN BED AND RESPONDS WHEN ADDRESSED. PT A&O TO ALL. VERBAL AND WRITTEN DC INSTRUCTIONS PROVIDED. PT VERBALIZES UNDERSTANDING. QUESTIONS ANSWERED. BELONGINGS RETURNED. IV REMOVED WNL. AMADA GORDON IN TO ASSIST PT WITH DRESSING. NO OTHER NEEDS FROM THIS RN.
--- NOTE | 2024-01-16 15:25 | NUR ---
ATTMPTED TO CALL PT AND PT SISTER AT [employer] ON F[employer] SHEET - LEFT VOICEMAIL THAT PT CANE LEFT IN ROOM WILL BE AT REGISTERED VASCULAR TECHNOLOGIST (RVT) OF HOSPITAL WITH PT STICKER IDENTIFIER ON IT FOR STAINED GLASS PAINTER.
== END 2024-01-16 14:42 | disposition home or self-care (01) | DRG 442 ==
LOC: ED 16:36 → MS 22:00
PROVIDERS: Emergency Medicine; Family Medicine; ADMIT Student in an Organized Health Care Education/Training Program; ATTEND Student in an Organized Health Care Education/Training Program
DX: K76.82 Hepatic encephalopathy (principal); N17.9 Acute kidney failure, unspecified; N39.0 Urinary tract infection, site not specified; A08.4 Viral intestinal infection, unspecified; D69.6 Thrombocytopenia, unspecified; D64.9 Anemia, unspecified; K21.9 Gastro-esophageal reflux disease without esophagitis; E11.9 Type 2 diabetes mellitus without complications; E86.0 Dehydration; K70.31 Alcoholic cirrhosis of liver with ascites; F32.9 Major depressive disorder, single episode, unspecified; J44.9 Chronic obstructive pulmonary disease, unspecified; E78.5 Hyperlipidemia, unspecified; F41.1 Generalized anxiety disorder; Z87.01 Personal history of pneumonia (recurrent); Z87.891 Personal history of nicotine dependence
CPT/HCPCS: 36415; 76705; 80048; 80053; 81001; 82140; 83690; 84703; 85025; 96374; 96375; 99284-25; J0696; J0780; J1171; J1885; J2270; J2405; J2470; J3411; J7030

== ENCOUNTER 2024-03-14 08:34 | Inpatient (IN) | payer MEDICARE, OTHER, MEDICAID ==
[~2024-03-14] VITALS: Ht 172.7 cm; Wt 93.4 kg
[~2024-03-14 08:34] MED LIST changes: +ALPRAZOLAM0.5 MG PO; +BIOTENE PBF473 ML MM; +CONSTULOSE10 GM/15 M PO; +FLONASE ALLERG9.9 ML NAS; +FOLIC ACID1 MG PO; +SULFAMETHOXAZO1 EAC1 PO
[2024-03-14] MEDS ORDERED: LACTULOSE 20 GM/30 ML CUP PO ONE (09:00)
[2024-03-14] MEDS ORDERED: ondansetron HCL 4 MG/2 ML VIAL IV ONE (09:00)
[2024-03-14 09:03] LABS: BASOPHILS 0.3 % (0-2); EOSINOPHILS 0.3 % (0-6); HEMATOCRIT 42.1 % (35.0-50.0); HEMOGLOBIN 14.5 g/dL (12.0-18.0); LYMPHOCYTES 6.6 % (24-44); MCH 31.1 (27-36); MCHC 34.3 g/dl (30-36); MCV 90.6 fl (81-99); MONOCYTES 8.8 % (0-12); PLATELET COUNT 102 K/uL (140-440); RBC 4.65 M/ul (4.3-5.7); RDW 16.5 (10.5-15.0)
[2024-03-14 09:16] LABS: ALBUMIN 3.4 g/dL (3.4-5.0); ALBUMIN/GLOBULIN RATIO 0.97 (1.1-2.4); ANION GAP 22.3 (7-21); BILIRUBIN, TOTAL 6.1 ng/dL (0.2-1.0); BUN/CREATININE RATIO 6.54 (6.0-28.6); CALCIUM 9.3 mg/dL (8.5-10.1); CREATININE, SERUM 2.75 mg/dL (0.55-1.02); POTASSIUM 3.3 mmol/L (3.5-5.1); PROTEIN, TOTAL 6.9 g/dL (6.4-8.2)
[2024-03-14] MEDS ORDERED: ondansetron HCL 4 MG/2 ML VIAL IV PRN (10:15)
[2024-03-14] MEDS ORDERED: HEParin SOD (PORCINE) 5,000 UNIT/ML SDV SUB-Q SCH (10:15)
[2024-03-14] MEDS ORDERED: bisacodyL 10 MG SUPP PR PRN (10:15)
[2024-03-14] MEDS ORDERED: ACETAMINOPHEN 325 MG TAB PO PRN (10:15)
--- NOTE | 2024-03-14 11:05 | NUR ---
MED REC COMPLETE
[2024-03-14 11:16] VITALS: BP 150/76
--- NOTE | 2024-03-14 11:26 | NUR ---
[facility] TO SELF TRANSFER TO BED. SHE IS CRYING BECAUSE OF A HEADACHE. MEDICATED AND FRESH H20 PROVIDED. PT ORIENTED TO ROOM AND CALL LIGHT BED ALARM IS SET
--- NOTE | 2024-03-14 11:58 | NUR ---
PT NO LONGER CRYING. WARM BLANKETS PROVIDED PER REQUEST PT RESTING EYES CLOSED.
[2024-03-14] MEDS ORDERED: PHARMACY RENAL DOSE ADJUSTMENT 1 DOSE MISC PO SCH (12:00)
[2024-03-14] MEDS ORDERED: LACTATED RINGER'S 1,000 ML IV SCH (13:00)
[2024-03-14] MEDS ORDERED: hydrOXYzine pamoate 25 MG CAP PO PRN (13:00)
--- NOTE | 2024-03-14 13:10 | NUR ---
PT UP TO BSC ABLE TO MOVE HER BOWELS
--- NOTE | 2024-03-14 13:42 | NUR ---
UR CLINICAL REVIEW: 2 MN FOR [facility]ETS OBS CRITERIA FOR HEPATIC ENCEPHALOPATHY MEDICARE OBS 03/14/24 @ 1015 ORDER MATCHES REG NO AUTH REQUIRED PER MEDICARE GUIDELINES DISCHARGE TO HOME WHEN STABLE 03/15/24
[2024-03-14 14:48] VITALS: BP 147/69
--- NOTE | 2024-03-14 15:20 | NUR ---
IN TO SEE PATIENT. BLANKET OVER HER HEAD. STATES SHE DOES NOT FEEL WELL. WILL RETURN TO SEE PATIENT AT A LATER TIME.
[2024-03-14 16:05] VITALS: BP 147/69
--- NOTE | 2024-03-14 18:15 | NUR ---
PT SELF FEEDS ENTIRE EVENING MEAL THEN REQUESTS SOMETHING SWEET. CHOCOLATE PUDDING PROVIDED.
[2024-03-14 18:34] VITALS: BP 138/63
--- NOTE | 2024-03-14 18:35 | NUR ---
PATIENT SITTING UP IN BED AT THIS TIME. VITALS AND I&O'S DONE AND CHARTED. PATIENT CRYING AND SAYING HER HEAD HURTS, RN NOTIFED. CALL LIGHT IN REACH. BED ALARM ON. WARM BLANKET GIVEN. NO FURTHER NEEDS AT THIS TIME.
--- NOTE | 2024-03-14 19:15 | NUR ---
REPORT RECEIVED FROM [facility]. pt RESTING IN THE BED. pt DENIES ANY OTHER NEEDS AT THIS TIME. BOARD UPDATED. CALL LIGHT WITHIN REACH.
[2024-03-14] MEDS ORDERED: LACTULOSE 20 GM/30 ML CUP PO SCH (21:00)
[2024-03-14] MEDS ORDERED: MELATONIN 3 MG TAB PO PRN (21:00)
[2024-03-14 21:10] VITALS: BP 131/62
[2024-03-14 21:12] VITALS: BP 131/62
--- NOTE | 2024-03-14 21:15 | NUR ---
ASSESSMENT AND VITAL SIGNS DONE. pt ASKS FOR A SANDWHICH BOX. SNACK PROVIDED. WATER REFRESHED. SCHEDULED AND PRN PAIN MEDS ADMINISTERED. pt DENIES ANY OTHER NEEDS AT THIS TIME. CALL LIGHT WITHIN REACH. IV ASSESSED, WNL.
--- NOTE | 2024-03-14 23:20 | NUR ---
pt CALLED AND STATED SHE WAS FEELING NAUSIOUS. PRN ANTINAUSEA MEDS ADMINISTERED. NEW BAG OF IVF INFUSING PER ORDER. pt DENIES ANY OTHER NEEDS AT THIS TIME. CALL LIGHT WITHIN REACH.
[2024-03-15] VITALS (9 sets, daily range): BP systolic 134–154; BP diastolic 45–75
--- NOTE | 2024-03-15 00:20 | NUR ---
PATIENT UP TO BEDSIDE COMMODE TO PEE. SAT FOR 5-10 MINUTES. PATIENT STATED I CAN'T PEE. PATIENT IS BACK IN BED. PRIMARY RN NOTIFIED. BLADDER SCANNED PER PRIMARY RN. BLADDER SCAN SHOWED 451ML IN.
--- NOTE | 2024-03-15 01:45 | NUR ---
pt UP TO THE BR WITH FWW VIA SBA TO SEE IF pt WILL PEE. pt PEED IN THE HAT. pt BACK TO THE BED. pt DENIES ANY OTHER NEEDS AT THIS TIME. CALL LIGHT WITHIN REACH. BED ALARM ON.
--- NOTE | 2024-03-15 03:32 | NUR ---
pt RESTING IN THE BED WITH EYES CLOSED. RR EVEN AND UNLABORED. CALL LIGHT WITHIN REACH.
--- NOTE | 2024-03-15 04:54 | NUR ---
pt RESTING IN THE BED. VS DONE. pt EATING SNACK AT THIS TIME. pt DENIES ANY OTHER NEEDS AT THIS TIME. CALL LIGHT WITHIN REACH.
[2024-03-15 05:29] LABS: BILIRUBIN, URINE NEGATIVE (negative); BLOOD/HGB, URINE TRACE-L (Negative); KETONE, URINE TRACE (Negative); LEUK ESTERASE, URINE TRACE (negative); NITRITE, URINE NEGATIVE (negative); PH, URINE 6.5 (5-7)
[2024-03-15 05:44] LABS: AMPHETAMINES, URINE NEGATIVE (NEGATIVE); BARBITURATES, URINE NEGATIVE (NEGATIVE); BENZODIAZEPINE, URINE NEGATIVE (NEGATIVE); BUPRENORPHINE, URINE NEGATIVE (NEGATIVE); CANNABINOID, URINE POSITIVE (NEGATIVE); COCAINE, URINE NEGATIVE (NEGATIVE); ECSTASY, URINE NEGATIVE (NEGATIVE); FENTANYL, URINE NEGATIVE (NEGATIVE); METHADONE, URINE NEGATIVE (NEGATIVE); OPIATES, URINE NEGATIVE (NEGATIVE); OXYCODONE, URINE NEGATIVE (NEGATIVE); PHENCYCLIDINE, URINE NEGATIVE (NEGATIVE)
[2024-03-15 06:03] LABS: BASOPHILS 2.3 % (0-2); EOSINOPHILS 5.6 % (0-6); HEMATOCRIT 32.3 % (35.0-50.0); HEMOGLOBIN 11.1 g/dL (12.0-18.0); LYMPHOCYTES 30.9 % (24-44); MCH 31.5 (27-36); MCHC 34.4 g/dl (30-36); MCV 91.6 fl (81-99); MONOCYTES 9.2 % (0-12); PLATELET COUNT 79 K/uL (140-440); RBC 3.53 M/ul (4.3-5.7); RDW 16.5 (10.5-15.0)
[2024-03-15 06:05] LABS: BACTERIA, URINE 1+ /hpf (negative); CASTS, URINE NONE SEEN \\lpf; COLLECTION TYPE, URINE CLEAN CATCH; CRYSTALS, URINE NONE SEEN (0-1+); EPITHELIAL CELLS, URINE SQUAMOUS 3+ /lpf (0-1+); RED BLOOD CELLS, URINE 0-1 /hpf (0-5); REFLEX CULTURE, URINE No (No)
--- NOTE | 2024-03-15 06:14 | NUR ---
ASSESSMENT AND VITAL SIGNS DONE. pt UP TO THE BR. UA COLLECTED. pt BACK TO BED AND REQUEST PRN PAIN AND ANTINAUSEA MEDS. PRN MEDS ADMINISTERED. pt DENIES ANY OTHER NEEDS AT THIS TIME. CALL LIGTH WITHIN REACH.
[2024-03-15 06:17] LABS: ALBUMIN 2.3 g/dL (3.4-5.0); ALBUMIN/GLOBULIN RATIO 0.88 (1.1-2.4); ANION GAP 14.5 (7-21); BILIRUBIN, TOTAL 3.9 ng/dL (0.2-1.0); BUN/CREATININE RATIO 7.56 (6.0-28.6); CALCIUM 8.2 mg/dL (8.5-10.1); CREATININE, SERUM 2.38 mg/dL (0.55-1.02); MAGNESIUM 1.7 mg/dL (1.8-2.4); POTASSIUM 3.5 mmol/L (3.5-5.1); PROTEIN, TOTAL 4.9 g/dL (6.4-8.2)
--- NOTE | 2024-03-15 07:12 | NUR ---
VERBAL REPORT RECEIVED FROM FREYA LYNN. PT RESTS IN BED AWAKE AND ALERT, NO REQUESTS AT THIS TIME.
[2024-03-15] MEDS ORDERED: MAGNESIUM SULFATE 2 GM/50 ML BAG IV ONE (08:15)
--- NOTE | 2024-03-15 08:33 | NUR ---
PT REPORTS NAUSEA, HAS EPISODES OF EMESIS AND DRY HEAVING. DR. GOLDBERG CALLED, NEW ORDER FOR COMPAZINE RECEIVED.
[2024-03-15] MEDS ORDERED: PROCHLORPERAZINE EDISYLATE 10 MG/2 ML VIAL ONE (08:44)
[2024-03-15] MEDS ORDERED: PROCHLORPERAZINE EDISYLATE 10 MG/2 ML VIAL IV PRN (08:45)
--- NOTE | 2024-03-15 08:56 | NUR ---
PT SITS UP IN RECLINER, MOANS AND CRY, DRY HEAVES, REPORTS NAUSEA. COMPAZINE RECEIVED ORDERED, SEE EMAR.
--- NOTE | 2024-03-15 08:57 | NUR ---
PO MEDICATION HELD AT THIS TIME DUE TO NAUSEA AND EMESIS.
[2024-03-15] MEDS ORDERED: PANTOPRAZOLE SODIUM 40 MG TABEC PO SCH (09:00)
[2024-03-15] MEDS ORDERED: SPIRONOLACTONE 100 MG TAB PO SCH (09:00)
[2024-03-15] MEDS ORDERED: Rifaximin 200 MG TAB PO SCH (09:00)
--- NOTE | 2024-03-15 09:18 | NUR ---
PT NOW RESTS, CALMLY IN RECLINER, NO FURTHER NAUSEA OR EMESIS AT THIS TIME.
--- NOTE | 2024-03-15 09:30 | NUR ---
Attempted to speak with Liv. She denies needs or changes. Pt is very slow to speak or answer questions. Some questions she does not answer. Pt denies any changes to her home situation.
--- NOTE | 2024-03-15 09:36 | NUR ---
PATIENT SITTING UP IN CHAIR AT THIS TIME. VITALS AND I&O'S DONE AND CHARTED. PATIENT STILL WORKING ON BREAKFAST. NO VOID AT THIS TIME, PATIENT STATES SHE DOES NOT FEEL LIKE SHE HAS TO GO WHEN ASKED, WILL CHECK BACK IN. CALL LIGHT IN REACH. NO FURTHER NEEDS AT THIS TIME.
--- NOTE | 2024-03-15 11:14 | NUR ---
PT NOW TOLERATING PO INTAKE, NO NAUSEA OR EMESIS. AM PO MEDICATIONS RECEIVED.
[2024-03-15] MEDS ORDERED: CEFTRIAXONE/SODIUM CHLORIDE 1 GM/100 ML PIGGYBACK IV SCH (12:10)
--- NOTE | 2024-03-15 13:39 | NUR ---
PATIENT IN BED RESTING WITH EYES CLOSED. VITALS DONE. NO URINE OUTPUT, RN NOTIFIED. VISITOR IN ROOM. CALL LIGHT IN REACH. NO FURTHER NEEDS AT THIS TIME.
[2024-03-15] MEDS ORDERED: LIDOCAINE 2% VISCOUS 6 ML SYR ONE (13:44)
[2024-03-15] MEDS ORDERED: LIDOCAINE 2% VISCOUS 6 ML SYR TOP ONE (13:45)
--- NOTE | 2024-03-15 13:45 | NUR ---
PT UNABLE TO VOID ON HER OWN. BLADDER SCAN SHOWS >[address] GOLBDERG NOTIFIED, NEW ORDER RECEIVED FOR STRAIGHT CATH.
--- NOTE | 2024-03-15 14:20 | NUR ---
STRAIGHT CATHETERIZATION PERFORMED, VIA STERILE TECHNIQUE WITH 16 FR CATHETER, 975 MLS OF YELLOW URINE COLLECTED. CATHETER REMOVED, TIP INTACT. PT TOLERATED WELL.
--- NOTE | 2024-03-15 17:57 | NUR ---
PT RESTS IN BED WITH EYES CLOSED, RESP EVEN AND UNLABORED.
--- NOTE | 2024-03-15 19:10 | NUR ---
REPORT RECEIVED FROM LORRAINE PILLAI. pt RESTING IN THE BED. BOARD UPDATED. pt DENIES ANY OTHER NEEDS AT THIS TIME. CALL LIGHT WITHIN REACH.
--- NOTE | 2024-03-15 21:05 | NUR ---
ASSESSMENT AND VITAL SIGNS DONE. pt A&O X4. pt WANTED TO REST FOR AN HOUR MORE BEFORE SHE GOT UP TO THE BR. SCHEDULED MEDS ADMINISERED. pt DENIES ANY OTHER NEEDS AT THIS TIME. CALL LIGHT WITHIN REACH.
--- NOTE | 2024-03-15 23:00 | NUR ---
pt UP TO THE BR. pt PEED 1000 mL IN THE HAT. pt REQUESTS PRN NAUSEA MEDS. PRN MEDS ADMINISTERED. WATER REFRESHED. pt DENIES ANY OTHER NEEDS AT THIS TIME.
[2024-03-16] VITALS (10 sets, daily range): BP systolic 130–136; BP diastolic 52–59
--- NOTE | 2024-03-16 02:06 | NUR ---
pt RESTING IN THE BED WITH EYES CLOSED. RR EVEN AND UNLABORED. CALL LIGHT WITHIN REACH.
--- NOTE | 2024-03-16 03:46 | NUR ---
pt RESTING IN THE BED WITH EYES CLOSED. RR EVEN AND UNLABORED. CALL LIGHT WITHIN REACH.
[2024-03-16 05:44] LABS: PLATELET COUNT 76 K/uL (140-440)
[2024-03-16 05:47] LABS: BASOPHILS 2.5 % (0-2); EOSINOPHILS 4.5 % (0-6); HEMATOCRIT 32.2 % (35.0-50.0); LYMPHOCYTES 37.8 % (24-44); MCH 31.2 (27-36); MCHC 34.2 g/dl (30-36); MCV 91.3 fl (81-99); MONOCYTES 9.6 % (0-12); NEUTROPHILS 45.6 % (39-80); RBC 3.53 M/ul (4.3-5.7); RDW 16.7 (10.5-15.0)
--- NOTE | 2024-03-16 06:00 | NUR ---
ASSESSMENT AND VITAL SIGNS DONE. pt UP TO THE BR. pt A&0 X4. pt DENIES ANY OTHER NEEDS AT THIS TIME. CALL LIGHT WITHIN REACH.
[2024-03-16 06:04] LABS: ANION GAP 12.8 (7-21); BUN/CREATININE RATIO 7.24 (6.0-28.6); CALCIUM 8.2 mg/dL (8.5-10.1); CREATININE, SERUM 2.07 mg/dL (0.55-1.02); MAGNESIUM 1.9 mg/dL (1.8-2.4); POTASSIUM 3.8 mmol/L (3.5-5.1)
--- NOTE | 2024-03-16 07:09 | NUR ---
REPORT RECEIVED FROM UPPER AND BOTTOM LACER HAND FREYA LYNN. PATIENT IS LYING IN BED WITH EYES CLOSED AND RESPIRATIONS ARE EVEN AND UNLABORED. CALL LIGHT AND PERSONAL BELONGINGS ARE WITHIN REACH.
--- NOTE | 2024-03-16 08:11 | NUR ---
MD NOTIFIED OF LOW PLATELET LEVELS. MD INSTRUCTED RN TO CONTINUE WITH HEPARIN ADMINISTRATION. RN EXPRESSED UNDERSTANDING. MD WITH NO FURTHER ORDERS AT THIS TIME. CALL ENDED.
--- NOTE | 2024-03-16 08:24 | NUR ---
Patient was alert and orientated. They got up into their chair for breakfast (1PA).
--- NOTE | 2024-03-16 08:30 | NUR ---
0900 MEDICATIONS ADMINISTERED PER THE EMAR. PRN COMPAZINE ADMINISTERED FOR 250 ML EMESIS. PRN TYLENOL ADMINISTERED FOR A HEADACHE THAT PATIENT RATED A 7/10. PATIENT IS SITTING UPRIGHT IN THE CHAIR WITH HER BREAKFAST TRAY WITHIN REACH. PATIENT STATES SHE "PROBABLY WON'T BE ABLE TO EAT". PATIENT STATED NO FURTHER NEEDS AT THIS TIME. CALL LIGHT AND PERSONAL BELONGINGS ARE WITHIN REACH.
[2024-03-16] MEDS ORDERED: HYDROmorphone HCL 1 MG/ML SYR IV PRN (09:30)
--- NOTE | 2024-03-16 09:39 | NUR ---
PATIENT IS LYING IN BED WITH BLANKETS OVER HER FACE. PATIENT RESPONDS TO RN VOICE. PATIENT STATES THE NAUSEA IS BETTER NOW WHEN ASKED BY RN. IV SITE FLUSHED WITH 10 ML NORMAL SALINE. IV DRESSING IS CLEAN, DRY, AND INTACT. LR IS INFUSING AT 100 ML/HR. PATIENT STATED NO FURTHER NEEDS AT THIS TIME. CALL LIGHT AND PERSONAL BELONGINGS ARE WITHIN REACH.
[2024-03-16] MEDS ORDERED: METOCLOPRAMIDE HCL 10 MG/2 ML SDV IV PRN (09:45)
--- NOTE | 2024-03-16 10:20 | NUR ---
PATIENT IS LYING ON THEIR LEFT SIDE WITH EYES CLOSED AND RESPIRATIONS ARE EVEN AND UNLABORED. NEW BAG OF MAINTENANCE FLUIDS STARTED AT THIS TIME. PATIENT IS DROWSY BUT RESPONDS TO RN. PATIENT STATED NO FURTHER NEEDS AT THIS TIME. CALL LIGHT AND PERSONAL BELONGINGS ARE WITHIN REACH.
--- NOTE | 2024-03-16 11:10 | NUR ---
PATIENT IS LYING IN BED ON THEIR BACK WITH EYES CLOSED AND RESPIRATIONS ARE EVEN AND UNLABORED. PATIENT RESPONDS TO RN UPON SPEAKING. FULL ASSESSMENT COMPLETE AND DOCUMENTED IN THE CHART. PATIENT DROWSY. PATIENT IS ALERT AND ORIENTED TIMES FOUR. CARDIAC WITH A MURMUR HEARD ON AUSCULTATION. PATIENT WITH COMPLAINTS OF TINGLING IN BILATERAL HANDS. SENSATION INTACT. RADIAL AND PEDAL PULSES ARE STRONG BILATERALLY. CAPILLARY REFILL IS LESS THAN 3 SECONDS BILATERALLY. PATIENT IS ON ROOM AIR AND LUNG SOUNDS ARE CLEAR BILATERALLY. PATIENT IS ON A REGULAR DIET AND BOWEL TONES ARE ACTIVE IN ALL FOUR QUADRANTS. PATIENT WITH NO COMPLAINTS OF NAUSEA AT THIS TIME. SKIN WITH SCATTERED SCARS AND BRUISING NOTED. IV SITE IN THE RIGHT HAND WITH LR INFUSING AT 100 ML/HR. IV DRESSING IS CLEAN, DRY, AND INTACT. PATIENT RATED PAIN 6/10 A HEADACHE. PATIENT IS NOT REQUESING ANYTHING FOR PAIN AT THIS TIME. PATIENT STATED NO FURTHER NEEDS AT THIS TIME. CALL LIGHT AND PERSONAL BELONGINGS ARE WITHIN REACH.
--- NOTE | 2024-03-16 12:19 | NUR ---
PATIENT IS SITTING UPRIGHT IN THE CHAIR AND IS SET UP FOR LUNCH. PATIENT STATES SHE IS FEELING BETTER. PATIENT STATED NOT NEEDING ANYTHING AMADA RONDON IS IN THE ROOM AND ASSISTING THE PATIENT. CALL LIGHT AND PERSONAL BELONGINGS ARE WITHIN REACH.
--- NOTE | 2024-03-16 13:31 | NUR ---
PATIENT IS LYING IN THE CHAIR ON THEIR LEFT SIDE WITH EYES CLOSED AND RESPIRATIONS ARE EVEN AND UNLABORED. LR REMAINS INFUSING AT 100 ML/HR. CALL LIGHT AND PERSONAL BELONGINGS ARE WITHIN REACH.
--- NOTE | 2024-03-16 14:50 | NUR ---
PATIENT IS LYING IN BED WITH HOB ELEVATED. PATIENT MORE ALERT THAN THIS MORNING. PATIENT IS ALERT AND ORIENTED TIMES FOUR. PATIENT REPORTS NO COMPLAINTS OF PAIN WHEN ASKED BY RN. IV IN THE RIGHT HAND REMAINS CLEAN, DRY, AND INTACT. LR IS INFUSING AT 100 ML/HR. PATIENT GIVEN A MARIA DE JESUS RODRIGUEZ PER PATIENT REQUEST. PATIENT STATED NO FURTHER NEEDS AT THIS TIME. CALL LIGHT AND PERSONAL BELONGINGS ARE WITHIN REACH.
--- NOTE | 2024-03-16 15:08 | NUR ---
Patient called asking for bathroom assist. Returned to bed once done.
--- NOTE | 2024-03-16 15:13 | NUR ---
MD NOTIFIED OF PATIENT HAVING NO PAIN OR NAUSEA/VOMITING. MD NOTIFIED OF PATIENT BEING MORE ALERT AND INTERACTIVE THAN THIS MORNING. NO NEW ORDERS AT THIS TIME.
--- NOTE | 2024-03-16 15:21 | NUR ---
PATIENT IS LYING IN BED AND SPEAKING WITH SOMEONE ON THE PHONE. TV ON. CALL LIGHT AND PERSONAL BELONGINGS ARE WITHIN REACH.
--- NOTE | 2024-03-16 16:50 | NUR ---
PATIENT IS LYING IN BED WITH THE TV. PATIENT WITH EYES OPEN AND RESPIRATIONS ARE EVEN AND UNLABORED. PATIENT STATED NO NEEDS WHEN ASKED BY RN. CALL LIGHT AND PERSONAL BELONGINGS ARE WITHIN REACH.
--- NOTE | 2024-03-16 17:15 | NUR ---
PATIENT IS LYING ON THEIR LEFT SIDE AND ON THEIR PHONE. RESPIRATIONS ARE EVEN AND UNLABORED. DINNER TRAY IS ON THE BEDSIDE TABLE. CALL LIGHT AND PERSONAL BELONGINGS ARE WITHIN REACH.
--- NOTE | 2024-03-16 18:38 | NUR ---
IV PUMP CLEARED BY THIS RN AT THIS TIME. PATIENT STATED NO FURTHER NEEDS AMADA PACKER WAS ALREADY GETTING IT FOR HER. CALL LIGHT AND PERSONAL BELONGINGS ARE WITHIN REACH.
--- NOTE | 2024-03-16 19:12 | NUR ---
Patient requested bathroom assistance. Ana fina and fresh ice water given. Returned to bed once done.
--- NOTE | 2024-03-16 19:15 | NUR ---
REPORT RECEIVED FROM ANTHONY PILLAI. pt RESTING IN THE BED. BOARD UPDATED. pt DENIES ANY OTHER NEEDS AT THIS TIME. CALL LIGHT WITHIN REACH.
--- NOTE | 2024-03-16 21:25 | NUR ---
ASSESSMENT AND VITAL SIGNS DONE. pt UP TO THE BR. pt A&O X4. SCHEDULED MEDS ADMINISTERED. IVF INFUSING PER ORDER. pt DENIES ANY OTHER NEEDS AT THIS TIME. CALL LIGHT WITHIN REACH.
--- NOTE | 2024-03-16 23:30 | NUR ---
pt CALLED FOR MARIA DE JESUS RODRIGUEZ AND CRACKERS. THIS RN ASKED pt IF SHE WAS NAUSIOUS. pt SAID YES. THIS RN GOT PRN NAUSEA MEDS FOR pt. PRN MEDS ADMINISTERED. pt DENIES ANY OTHER NEEDS AT THIS TIME. CALL LIGHT WITHIN REACH.
--- NOTE | 2024-03-17 02:26 | NUR ---
pt RESTING IN THE BED WITH EYES CLOSED. RR EVEN AND UNLABORED. CALL LIGHT WITHIN REACH.
--- NOTE | 2024-03-17 04:36 | NUR ---
pt RESTING IN THE BED WITH EYES CLOSED. RR EVEN AND UNLABORED. CALL LIGHT WITHIN REACH.
[2024-03-17 05:45] VITALS: BP 134/58
[2024-03-17 05:47] VITALS: BP 134/58
--- NOTE | 2024-03-17 05:50 | NUR ---
pt UP THE BR. VITAL SIGNS DONE. WATER REFRESHED. pt DENIES ANY OTHER NEEDS AT THIS TIME. CALL LIGHT WITHIN REACH.
[2024-03-17 05:51] LABS: BASOPHILS 2.4 % (0-2); EOSINOPHILS 7.4 % (0-6); HEMATOCRIT 30.3 % (35.0-50.0); HEMOGLOBIN 10.5 g/dL (12.0-18.0); LYMPHOCYTES 32.6 % (24-44); MCH 31.4 (27-36); MCHC 34.6 g/dl (30-36); MCV 90.8 fl (81-99); MONOCYTES 10.2 % (0-12); NEUTROPHILS 47.4 % (39-80); PLATELET COUNT 63 K/uL (140-440); RBC 3.34 M/ul (4.3-5.7); RDW 16.3 (10.5-15.0)
[2024-03-17 06:12] LABS: ANION GAP 10.8 (7-21); BUN/CREATININE RATIO 7.69 (6.0-28.6); CALCIUM 8.3 mg/dL (8.5-10.1); CREATININE, SERUM 1.82 mg/dL (0.55-1.02); MAGNESIUM 1.7 mg/dL (1.8-2.4); POTASSIUM 3.8 mmol/L (3.5-5.1)
--- NOTE | 2024-03-17 07:04 | NUR ---
REPORT RECEIVED FROM RETAIL DELIVERY DRIVER RN SHANE. PATIENT IS LYING IN BED LOOKING ON THEIR PHONE WITH THE LIGHT ON. CALL LIGHT AND PERSONAL BELONGINGS ARE WITHIN REACH.
--- NOTE | 2024-03-17 07:59 | NUR ---
0900 MEDICATIONS ADMINISTERED PER THE EMAR. PATIENT IS SITTING UPRIGHT IN THE CHAIR WITH BLE ELEVATED. PATIENT WITH THE TV ON AND CALL LIGHT IN REACH. PATIENT STATED NO FURTHER NEEDS.
[2024-03-17] MEDS ORDERED: MAGNESIUM OXIDE 400 MG TABLET PO ONE (08:15)
--- NOTE | 2024-03-17 08:28 | NUR ---
IV ROCEPHIN DOSE COMPLETE. PATIENT IV FLUSHED WITH 10 ML NORMAL SALINE. IV DRESSING IS CLEAN, DRY, AND INTACT. LR IS INFUSING AT 100 ML/HR. PATIENT ASSISTED TO THE BATHROOM WITH THIS RN AND TYRELL ZHANG. PATIENT ISNTRUCTED TO PULL THE CALL LIGHT CORD WHEN COMPLETE. PATIENT EXPRESSED UNDERSTANDING. NO FURTHER NEEDS AT THIS TIME.
--- NOTE | 2024-03-17 08:52 | NUR ---
PATIENT IN BED AT THIS TIME. MANAGER MEDICARE ASSISTED PATIENT TO BATHROOM AND THEN BAKC TO THE CHAIR. CALL LIGHT WITHIN REACH, NO FURTHER NEEDS AT THIS TIME.
--- NOTE | 2024-03-17 08:59 | NUR ---
Patient asked for bathroom assist. Returned to bed.
--- NOTE | 2024-03-17 09:21 | NUR ---
UR CLINICAL REVIEW: 2 MN SAGAR- MEETS INPT DC CRITERIA MEDICARE FROM OBS TO INPT 03/16/24 @ 0830 ORDER MATCHES REG NO AUTH REQUIRED PER MEDICARE RULES PLAN TO DC TO HOME TODAY.
[2024-03-17] MEDS ORDERED: COMPRO25 MG PR (09:24)
[2024-03-17] MEDS ORDERED: CEFUROXIME500 MG PO (09:25)
[2024-03-17] MEDS ORDERED: AZO D-MANNOSE500 MG PO (09:25)
[2024-03-17 09:46] VITALS: BP 148/63
[2024-03-17 09:50] VITALS: BP 148/63
--- NOTE | 2024-03-17 10:32 | NUR ---
PATIENT IS LYING ON THEIR LEFT SIDE WITH EYES CLOSED AND RESPIRATIONS ARE EVEN AND UNLABORED. LR IS INFUSING AT 100 ML/HR. CALL LIGHT AND PERSONAL BELONGINGS ARE WITHIN REACH.
--- NOTE | 2024-03-17 11:05 | NUR ---
FULL ASSESSMENT COMPLETE AND DOCUMENTED IN THE CHART. PATIENT IS ALERT AND ORIENTED TIMES FOUR. PATIENT USES A WALKER. PATIENT FATIGUED. CARDIAC WITH MURMUR NOTED ON AUSCULTATION. PATIENT STATED YESTERDAY THAT SHE HAS THIS AT [facility]. PATIENT WITH STRONG RADIAL AND PEDAL PULSES BILATERALLY. CAPILLARY REFILL IS LESS THAN 3 SECONDS IN THE UPPER AND LOWER EXTREMITIES BILATERALLY. PATIENT IS ON ROOM AIR. LUNG SOUNDS ARE CLEAR BILATERALLY. PATIENT WITH 1+ PITTING EDEMA IN BLE. NUMBNESS AND TINLING IN BLE. PATIENT IS ON A REGULAR DIET AND BOWEL TONES ARE ACTIVE IN ALL FOUR QUADRANTS. PATIENT WITH NO COMPLAINTS OF PAIN. PATIENT STATES HAVING NAUSEA BUT IS NOT REQUESTING ANYTHING FOR IT. PATIENT GIVEN MARIA DE JESUS RODRIGUEZ AND CRACKERS PER PATIENT REQUEST. SKIN WITH SCATTERED BRUISING, SCATTERED SCARS, AND SMALL BLISTER ON THE TOP OF THE LEFT GREAT TOE. IV SITE FLUSHED WITH 10 ML NORMAL SALINE AND HAS LR INFUSING AT 100 ML/HR. IV DRESSING IS CLEAN, DRY, AND INTACT. PATIENT STATED NO FURTHER NEEDS AT THIS TIME. CALL LIGHT AND PERSONAL BELONGINGS ARE WITHIN REACH.
--- NOTE | 2024-03-17 12:23 | NUR ---
PATIENT IS LYING IN BED WITH EYES CLOSED AND RESPIRATIONS ARE EVEN AND UNLABORED. PATIENT HAS BLANKETS COVERING THEIR FACE. PATIENT LUNCH TRAY REMAINS AT THE BEDSIDE. CALL LIGHT AND PERSONAL BELONGINGS ARE WITHIN REACH.
[2024-03-17 13:23] VITALS: BP 120/52
[2024-03-17 13:33] VITALS: BP 120/52
--- NOTE | 2024-03-17 13:50 | NUR ---
Spoke with Tiny. She denies needs. Plans on dc to home today. Niece will pick her up when she finishes an appointment. Home today when ride arrives.
--- NOTE | 2024-03-17 14:19 | NUR ---
Patient put on workers compensation administrator socks and asked for bathroom assistance. Returned to sit on the edge of bed once done. Green bag containing patient items was given.
--- NOTE | 2024-03-17 14:37 | NUR ---
PATIENT IS SITTING ON THE EDGE OF BED AND LOOKING ON THEIR PHONE. TV IS ON. PATIENT REMAINS WAITING FOR HER NIECE TO COME AND PICK HER UP. PATIENT STATED NO FURTHER NEEDS AT THIS TIME. CALL LIGHT AND PERSONAL BELONGINGS ARE WITHIN REACH.
== END 2024-03-17 14:55 | disposition home or self-care (01) | DRG 442 ==
LOC: ED 08:34 → MS 08:35
PROVIDERS: Emergency Medicine; ADMIT Student in an Organized Health Care Education/Training Program; ATTEND Student in an Organized Health Care Education/Training Program
DX: K76.82 Hepatic encephalopathy (principal); N17.9 Acute kidney failure, unspecified; N39.0 Urinary tract infection, site not specified; E11.9 Type 2 diabetes mellitus without complications; K74.60 Unspecified cirrhosis of liver; F32.9 Major depressive disorder, single episode, unspecified; J44.9 Chronic obstructive pulmonary disease, unspecified; I10 Essential (primary) hypertension; E78.5 Hyperlipidemia, unspecified; D69.6 Thrombocytopenia, unspecified; K21.9 Gastro-esophageal reflux disease without esophagitis; F41.1 Generalized anxiety disorder; Z87.891 Personal history of nicotine dependence
CPT/HCPCS: 36415; 51798; 80048; 80053; 80307; 81001; 82140; 83735; 84100; 84702; 85025; 87088; 96365; 96366; 96367; 96372; 96374; 96375; 96376; 99285-25; A9270; G0378; J0696; J0780; J1644; J2405; J3475; J7121; Q0177

== ENCOUNTER 2024-03-31 00:17 | Observation (INO) | payer MEDICARE, MEDICAID, OTHER ==
[2024-03-31] VITALS (8 sets, daily range): BP systolic 112–150; BP diastolic 43–70
[~2024-03-31] VITALS: Ht 172.7 cm; Wt 110.0 kg
[~2024-03-31 00:17] MED LIST changes: +AZO D-MANNOSE500 MG PO; +CEFUROXIME500 MG PO; +COMPRO25 MG PR
[2024-03-31 01:08] LABS: BASOPHILS 0.7 % (0-2); EOSINOPHILS 4.5 % (0-6); HEMATOCRIT 34.2 % (35.0-50.0); HEMOGLOBIN 11.7 g/dL (12.0-18.0); LYMPHOCYTES 23.6 % (24-44); MCH 31.7 (27-36); MCHC 34.2 g/dl (30-36); MCV 92.8 fl (81-99); MONOCYTES 11.2 % (0-12); PLATELET COUNT 77 K/uL (140-440); RBC 3.69 M/ul (4.3-5.7)
[2024-03-31 01:23] LABS: ALBUMIN 3.1 g/dL (3.4-5.0); ALBUMIN/GLOBULIN RATIO 1.07 (1.1-2.4); ANION GAP 17.6 (7-21); BILIRUBIN, TOTAL 5.7 ng/dL (0.2-1.0); BUN/CREATININE RATIO 8.33 (6.0-28.6); CALCIUM 9.5 mg/dL (8.5-10.1); CREATININE, SERUM 2.64 mg/dL (0.55-1.02); MAGNESIUM 1.8 mg/dL (1.8-2.4); POTASSIUM 3.6 mmol/L (3.5-5.1)
[2024-03-31] MEDS ORDERED: LACTULOSE 20 GM/30 ML CUP PO ONE (02:00)
[2024-03-31] MEDS ORDERED: SODIUM CHLORIDE 0.9% 1,000 ML IV PRN (02:00)
[2024-03-31 02:33] LABS: INR 1.41 (0.80-1.30); PROTIME 17.2 Sec (11.2-14.2)
--- NOTE | 2024-03-31 03:20 | NUR ---
REPORT RECIEVED FROM HEEL COVER SPLITTER. PATIENT TO THE FLOOR VIA WHEELCHAIR BY THIS RN. PATIENT TRANSFERRED FROM WHEELCHAIR TO BED USING SBA. VS OBTAINED AND RECORDED. ASSESSMENT COMPLETE. PATIENT A&O x4 BUT SLOW TO RESPOND. PATIENT BLE 3+ EDEMA. PATIENT EDUCATED TO ROOM AND CALL LIGHT. BED ALARM ON. PATIENT HAS NO FURTHER NEEDS. CALL LIGHT IN REACH.
[2024-03-31] MEDS ORDERED: ONDANSETRON 4 MG TAB ODT SL PRN (05:00)
--- NOTE | 2024-03-31 05:03 | NUR ---
CALL LIGHT ANSWERED. PATIENT UP TO BSC USING SBA TO HAVE BM. PATIENT BACK TO BED. VS AND I&Os OBTAINED AND RECORDED. PATIENT DENIES NEEDS AT THIS TIME. BED ALARM ON. CALL LIGHT IN REACH.
--- NOTE | 2024-03-31 06:40 | NUR ---
PATIENT REQUESTING PRN MEDICATION FOR HEADACHE PAIN. NIO PLACED.
[2024-03-31] MEDS ORDERED: ACETAMINOPHEN 500 MG TAB PO PRN (06:45)
--- NOTE | 2024-03-31 07:30 | NUR ---
REPORT RECEIVED FROM REACTOR SERVICE OPERATOR RN. PATIENT RESTING IN BED LAYING ON LEFT SIDE. REPORTS SHE HAD A HEADACHE AND IS REQUESTING TYLENOL. PATIENT EDUCATED ON CONTRINDICATIONS OF TYLENOL. NO FURTHER NEEDS AT THIS TIME CALL LIGHT WITHIN REACH. BED ALARM ON.
--- NOTE | 2024-03-31 08:30 | NUR ---
PATIENT RESTING IN BED. EATING BERAKFAST. NO NEEDS AT THIS TIME. CALL LIGHT WITHIN REACH.
[2024-03-31] MEDS ORDERED: LACTULOSE 20 GM/30 ML CUP PO SCH ×2 (09:00→15:00)
--- NOTE | 2024-03-31 09:04 | NUR ---
MED REC COMPLETE
[2024-03-31] MEDS ORDERED: LIDOCAINE 2% VISCOUS 6 ML SYR TOP ONE (09:15)
--- NOTE | 2024-03-31 09:20 | NUR ---
REVENUE STAMP CLERK STAFF IN ROOM WITH PATIENT ASSISTED PATIENT TO BATHROOM. URINE SAMPLE COLLECTED AND VOID FOR 900MLS. PATIENT BACK IN BED. CALL LIGHT WITHIN REACH. BED ALARM ON.
--- NOTE | 2024-03-31 09:30 | NUR ---
INTO SEE PATIENT. PERSONAL INFORMATION REVIEWED. PATIENT LIVES IN A [place]UPLEX WITH NIECE. SHE HAS ONE STEP TO GET INTO IT. BROTHER WORKS FOR HOUSING IS SET TO PUT A RAMP UP TO ASSIST HER IN GETTING IN. PATIENT HAS WHEELCHAIR, CANE, WALKER. PATIENT USES A NEB AT HOME THROUGH [facility]. SHE DOES NOT DRIVE. 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 MY NIECE DRIVES ME WHEN I NEED IT. PATIENT ASKED ABOUT CAREGIVERS IN THE HOME. I WILL FOLLOW UP WITH HER ON THIS.
[2024-03-31 09:36] LABS: BILIRUBIN, URINE NEGATIVE (negative); BLOOD/HGB, URINE NEGATIVE (Negative); KETONE, URINE NEGATIVE (Negative); LEUK ESTERASE, URINE NEGATIVE (negative); NITRITE, URINE NEGATIVE (negative); PH, URINE 6.5 (5-7)
--- NOTE | 2024-03-31 09:40 | NUR ---
DISCUSSED WITH MD GOLDBERG CONCERNS FOR PATIENT WANTING TYLENOL FOR MACHADO. OKAY WITH PATIENT HAVING TYLENOL PRN. PRN TYLENOL ADMINSTERED FOR C/O MACHADO. LUNGS CTA, BOWEL TONES ACITVE X 4 QUADRANTS. PATIENT IS ALERT AND ORIENTED TO PERSON, PLACE, TIME AND LOCATION. REPORTS SHE WAS HEARING SOMEONE TALKING TO HER EARILER IN HER ROOM BUT WHEN SHE LOOKED SHE COULD NOT FIND ANYONE IN HER ROOM. PATIENT WITH NO FURTHER NEEDS AT THIS TIME. CALL LIGHT WITHIN REACH.
--- NOTE | 2024-03-31 09:51 | NUR ---
PT NOT AVAILABLE FOR VISIT. PROVIDED PRAYER.
--- NOTE | 2024-03-31 10:20 | NUR ---
GAVE PATIENT NUMBER FOR [facility] TO TALK TO MIRANDA TO SEE IF SHE QUALIFIES FOR COMMUNICATIONS SENIOR ASSOCIATE MEDICAID. PATIENT STATES SHE WOULD NOT QUALIFY AND HAS A FRIEND TO DO CAREGIVING FOR HER. SHE WILL PRIVATE PAY FOR IT. PATIENT GIVEN PAMPHLET ON PRIVATE PAY CAREGIVERS. PATIENT ALSO GIVEN PHONE NUMBER FOR [facility] TO CANCEL APPOINTMENTS FOR TOMORROW. SISTER PRESENT AT BEDSIDE. WILLING TO HELP HER WITH THE CALLS. NO OTHER QUESITIONS OR CM AT THIS TIME.
[2024-03-31 10:22] LABS: AMPHETAMINES, URINE NEGATIVE (NEGATIVE); BARBITURATES, URINE NEGATIVE (NEGATIVE); BENZODIAZEPINE, URINE NEGATIVE (NEGATIVE); BUPRENORPHINE, URINE NEGATIVE (NEGATIVE); CANNABINOID, URINE POSITIVE (NEGATIVE); COCAINE, URINE NEGATIVE (NEGATIVE); ECSTASY, URINE NEGATIVE (NEGATIVE); FENTANYL, URINE NEGATIVE (NEGATIVE); METHADONE, URINE NEGATIVE (NEGATIVE); OPIATES, URINE NEGATIVE (NEGATIVE); OXYCODONE, URINE NEGATIVE (NEGATIVE); PHENCYCLIDINE, URINE NEGATIVE (NEGATIVE)
[2024-03-31] MEDS ORDERED: PANTOPRAZOLE SODIUM 40 MG TABEC PO SCH (11:08)
[2024-03-31] MEDS ORDERED: DEXTROSE 50% 50 ML SYR IV PRN ×2 (11:15)
[2024-03-31] MEDS ORDERED: bisacodyL 10 MG SUPP PR PRN (11:15)
[2024-03-31] MEDS ORDERED: IBLOOD GLUCOSE TEST STRIP 1 EA TEST XX PRN (11:15)
[2024-03-31] MEDS ORDERED: DEXTROSE 5% 1,000 ML IV PRN (11:15)
[2024-03-31] MEDS ORDERED: LACTATED RINGER'S 1,000 ML IV SCH (11:15)
[2024-03-31] MEDS ORDERED: PROCHLORPERAZINE EDISYLATE 10 MG/2 ML VIAL IV PRN (11:15)
[2024-03-31] MEDS ORDERED: GLUCAGON,HUMAN RECOMBINANT 1 MG/ML VIAL SUB-Q PRN (11:15)
[2024-03-31] MEDS ORDERED: ondansetron HCL 4 MG/2 ML VIAL IV PRN (11:15)
--- NOTE | 2024-03-31 11:17 | NUR ---
UR CLINICAL REVIEW: 2MN SAGAR, MEETS OBS FOR HEPATIC ENCEPHALOPATHY MEDICARE OBS 03/31/24 @ 0209 ORDER MATCHES REG NO AUTH REQUIRED PER MEDICARE RULES DC TO HOME WHEN MEDICALLY CLEARED. 04/01/24
--- NOTE | 2024-03-31 11:35 | NUR ---
PATIENT RESTING IN BED WITH FAMILY AT BEDSIDE. SCHEDULED MEDICATIONS GIVEN. NOON BLOOD SUAGR TAKEN. NO FURTHER NEEDS AT THIS TIME. PT IN ROOM WITH PATIENT AT THIS TIME.
[2024-03-31] MEDS ORDERED: IBLOOD GLUCOSE TEST STRIP 1 EA TEST VI SCH (12:00)
[2024-03-31] MEDS ORDERED: PHARMACY RENAL DOSE ADJUSTMENT 1 DOSE MISC PO SCH (12:00)
[2024-03-31] MEDS ORDERED: INSULIN LISPRO 100 UNIT/ML ML SUB-Q SCH (12:00)
--- NOTE | 2024-03-31 12:40 | NUR ---
PATIENT ASSISTED TO BATHROOM WITH 1 PA STAND BY. PATIENT STEADY ON FEET. VOIDING QUANITY SUFFICIENT IN TOILET. RN ASKED PATIENT ABOUT CONTACTS. PATIENT STATED, " I AM GOING TO TAKE THESE OUT ONCE MY SISTER COMES BACK WITH MY GLASSES." PATIENT WITH NO FURTHER NEEDS CALL LIGHT WITHIN REACH.
--- NOTE | 2024-03-31 13:35 | NUR ---
PATIENT RESTING IN BED WITH EYES CLOSED. RESPIRATIONS EVEN AND UNLABORED. CALL LIGHT WITHIN REACH.
[2024-03-31] MEDS ORDERED: ALBUTEROL/IPRATROPIUM 3 ML NEB INH SCH (14:00)
--- NOTE | 2024-03-31 14:53 | NUR ---
PTs SISTER CALLED PER PT REQUEST. PTs SISTER STATES SHE WILL CALL THE PT RIGHT NOW.
--- NOTE | 2024-03-31 15:08 | NUR ---
PT REQUESTING WARM BLANKET - PROVIDED. PT REPOSITIONS HERSELF IN BED. NO OTHER REQUESTS AT THIS TIME, CALL LIGHT IN REACH.
--- NOTE | 2024-03-31 15:41 | NUR ---
PATIENT IN BED AT THIS TIME. CONTENT DEVELOPMENT SPECIALIST ASSISTED PATIENT TO BATHROOM AND THEN BACK TO BED. CALL LIGHT WITHIN REACH, NO FURTHER NEEDS AT THIS TIME.
--- NOTE | 2024-03-31 16:23 | NUR ---
CALL LIGHT ANSWERED POATIENT C/O NAUSEA. PRN ADMINSTERED. PATIENT REMAINS CONFUSED AT TIMES INCLUDING FORGETFULNESS. PATIENT REPORTS, " I FEEL LIKE IF I GO TO SLEEP I WONT BE ABLE TO WAKE UP." PATIENT REASSURED THAT SHE IS IN A SAFE PLACE. BILATERAL SWELLING TO LOWER EXTERMITIES UNCHANGED. PATIENT WITH NO FURTHER NEEDS AT THIS TIME. CALL LIGHT WITHIN REACH. BED ALARM ON.
--- NOTE | 2024-03-31 17:13 | NUR ---
PATIENT RESTING IN BED WITH EYES CLOSED. RESPIRATIONS EVEN AND UNLABORED. IV SITE TO RIGHT AC IS WNL. IVF INFUSING WITH NO ISSUES OR CONCERNS. CALL LIGHT WITHIN REACH. BED ALARM IN PLACE.
--- NOTE | 2024-03-31 18:45 | NUR ---
NOTED PATIENT TO BE SWEATTY WITH BEADS OF SWEAT ON HER FACE AND UPPER BODY. VSS. BLOOD SUGAR 83. PATIENT ALERT AND ORIENTED BUT SLOW TO RESPOND. MD AWARE AND IN ROOM TO ASSESS PATIENT. PRN BISACODYL SUPP GIVEN. NPATIENT DRANK 2 ORANGE JUICES. CALL LIGHT WITHIN REACH. BED ALARM ON.
--- NOTE | 2024-03-31 19:34 | NUR ---
REPORT RECIEVED FROM DAY SHIFT RN. PATIENT RESTING IN BED WITH EYES CLOSED. RESPIRATIONS EVEN AND UNLABORED. CALL LIGHT IN REACH.
--- NOTE | 2024-03-31 21:59 | NUR ---
CALL LIGHT ANSWERED. PATIENT UP TO BSC TO HAVE BM. PATIENT BACK TO BED. VS AND I&Os OBTAINED AND RECORDED. ASSESSMENT COMPLETE. PATIENT REPORTS NAUSEA. PRN NAUSEA MEDICATION ADMINISTERED PER PATIENT REQUEST. PATIENT HAS NO FURTHER NEEDS. BED ALARM ON. CALL LIGHT IN REACH.
--- NOTE | 2024-03-31 23:40 | NUR ---
PATIENT RESTING IN BED ON BACK WITH EYES CLOSED. RESPIRATIONS EVEN AND UNLABORED. CALL LIGHT IN REACH.
[2024-04-01] VITALS (10 sets, daily range): BP systolic 125–154; BP diastolic 63–75
--- NOTE | 2024-04-01 01:05 | NUR ---
CALL LIGHT ANSWERED. PATIENT REPORTS FEELING SWEATY. ROOM TEMP DECREASED AND BLANKETS REMOVED. NEW GOWN PLACED. BS OBTAINED AND RECORDED - WNL. PATIENT UP TO BATHROOM WITH SBA AND FWW TO HAVE BM. PATIENT BACK TO BED. VS AND I&Os OBTAINED AND RECORDED. NEW BAG IV FLUID INFUSING PER ORDER. PATIENT HAS NO FURTHER NEEDS. CALL LIGHT IN REACH. FRESH ICE WATER PROVIDED. BED ALARM ON.
--- NOTE | 2024-04-01 01:42 | NUR ---
PATIENT REPORTING 7/10 HEADACHE AND ABD CRAMPING PAIN. PRN PAIN MEDICATION ADMINISTERED. NO FURTHER NEEDS. CALL LIGHT IN REACH. BED ALARM ON.
--- NOTE | 2024-04-01 04:30 | NUR ---
PT COMPLAINED OF NAUSEA. ZOFRAN IV GIVEN, WHILE GIVING THE MEDICATION, SHE ASKED IF THAT WOULD MAKE HER STOMACH QUIT HURTING. REMINDED PT THAT SHE TAKES LACTULOSE, AND BOWEL PAIN IS COMMON, SHE THEN PASSED LARGE AMOUNT GAS, SHE SAID THAT FELT GOOD. WHILE CONVERSING, SHE WAS WOULD FORGET WHAT WAS GOING ON, SUCH GETTING ZOFRAN, THEN WOULD GET CONFUSED, COULDN'T FIND THE WORDS SHE WANTED TO SAY, THEN SAY OH I FORGOT. FOUND HER PHONE ON FLOOR. NO OTHER NEEDS AT THIS TIME.
[2024-04-01 05:27] LABS: BASOPHILS 1.2 % (0-2); EOSINOPHILS 4.2 % (0-6); HEMATOCRIT 31.8 % (35.0-50.0); LYMPHOCYTES 25.1 % (24-44); MCH 31.7 (27-36); MCHC 34.7 g/dl (30-36); MCV 91.1 fl (81-99); MONOCYTES 10.1 % (0-12); NEUTROPHILS 59.4 % (39-80); PLATELET COUNT 70 K/uL (140-440); RBC 3.49 M/ul (4.3-5.7); RDW 17.8 (10.5-15.0)
[2024-04-01 05:44] LABS: ALBUMIN 2.4 g/dL (3.4-5.0); ALBUMIN/GLOBULIN RATIO 0.89 (1.1-2.4); ANION GAP 13.3 (7-21); BILIRUBIN, TOTAL 3.6 ng/dL (0.2-1.0); BUN/CREATININE RATIO 7.65 (6.0-28.6); CALCIUM 8.8 mg/dL (8.5-10.1); CREATININE, SERUM 2.22 mg/dL (0.55-1.02); MAGNESIUM 1.7 mg/dL (1.8-2.4); PHOSPHORUS, INORGANIC 3.6 mg/dL (2.5-4.9); POTASSIUM 4.3 mmol/L (3.5-5.1); PROTEIN, TOTAL 5.1 g/dL (6.4-8.2)
--- NOTE | 2024-04-01 06:39 | NUR ---
PATIENT RESTING IN BED WITH EYES CLOSED. RESPIRATIONS EVEN AND UNLABORED. CALL LIGHT IN REACH.
--- NOTE | 2024-04-01 07:35 | NUR ---
REPORT RECEIVED FROM PHARMACY PICKING TECHNICIAN RN. PATIENT RESTING IN BED LAYING ON BACK. RESPIRATIONS EVEN AND UNLABORED. CALL LIGHT WITHIN REACH, BED ALARM ON.
--- NOTE | 2024-04-01 08:45 | NUR ---
PATIENT RESTING IN BED. ALERT AND ORIENTED TO PERSON, PLACE AND LOCATION. PATIENT REMAINS FORGETFUL WITH CONFUSSION AT TIMES. AM MECDICATIONS ADMINSTERD. ;UNGS CTA, BOWEL TONES ACTIVE X 4 QUADRANTS. IV SITES PATENT AND WNL. PATIENT REPORTS MID HEADACHE AT THIS TIME. DENEIS ANY FURTHER NEEDS CALL LIGHT WITHIN REACH. BED ALARM ON.
--- NOTE | 2024-04-01 08:50 | NUR ---
VISITED DURING SPIRITUAL CARE ROUNDS. PT CONFUSED BUT INTERACTIVE. REQUESTED DIAL SCREW ASSEMBLER VISIT. NO OTHER IMMEDIATE NEEDS. CONTRACT TECHNICAL WRITER PROVIDED SUPPORTIVE PRESENCE, HOSPITALITY, PRAYER. PT EXPRESSED GRATITUDE.
[2024-04-01] MEDS ORDERED: MAGNESIUM OXIDE 400 MG TABLET PO ONE (09:00)
--- NOTE | 2024-04-01 09:02 | NUR ---
MD IN ROOM WITH PATIENT AT THIS TIME.
--- NOTE | 2024-04-01 09:40 | NUR ---
PATIENT SHOWERING WITH ASSISTANCE OF THERAPY AT THIS TIME.
[2024-04-01] MEDS ORDERED: Rifaximin 200 MG TAB PO SCH (10:46)
--- NOTE | 2024-04-01 11:45 | NUR ---
PATIENT RESTING IN RECLINER. IVF INFUSING WNL. PATIENT DENIES ANY NEEDS AT THIS TIME. SCHEDULED MEDICATION ADMINSTERED. LUBNA IN ROOM WITH PATIENT. CALL LIGHT WITHIN REACH.
--- NOTE | 2024-04-01 13:47 | NUR ---
Pt walking in the hallway. Denies needs.
--- NOTE | 2024-04-01 14:34 | NUR ---
PT IV ALARMING, NEW BAG OF IV FLUIDS INFUSING. PRIMARY RN PRESENTED AND TOOK OVER CARES. PT ALERT AND MAKES NEEDS KNOWN. CALL LIGHT WITHIN REACH.
--- NOTE | 2024-04-01 15:30 | NUR ---
IN TO ROUND ON PATIENT. NO NEEDS AT THIS TIME. CALL LIGHT WITHIN REACH.
--- NOTE | 2024-04-01 16:45 | NUR ---
BLOOD SUGAR OBTAINED. PATIENT WITH NO FURTHER NEEDS AT THIS TIME. CALL LIGHT WITHIN REACH.
--- NOTE | 2024-04-01 17:23 | NUR ---
CALL LIGHT ANSWERED. PATIENT AMB TO BATHROOM SBA WITH DRY KILN OPERATOR AND RN. PATIENT HAD BOWEL MOVEMENT. BRIEFS CHANGED. CHANELLE CARE COMPLETED BY PATIENT. PATIENT UP IN RECLINER TO EAT DINNER. NO FURTHER NEEDS AT THIS TIME. CALL LIGHT IN REACH.
--- NOTE | 2024-04-01 18:18 | NUR ---
PATIENT AMB SBA TO BATHROOM TO VOID. PATIENT AMBULATED SBA TO BED. CALL LIGHT IN REACH. NO FURTHER NEEDS AT THIS TIME. BED ALARM ON.
--- NOTE | 2024-04-01 20:15 | NUR ---
call light answered, pt wanting snack and drink before bed. per primary rn request, waiting on snack until after bedtime accucheck, pt educated on rationale and verbalized understanding. bed alarm on and call light in reach. per pt request, this rn wrote down pt's sister's cell # on sticky note for pt and on bedside, pt states, "sometimes i forget it, thank you". no additional needs or concerns verbalized.
--- NOTE | 2024-04-01 21:32 | NUR ---
pt received neb treatment by RT. On room air, alert and oriented, lungs clear, large abd, natalie, edema to LE 2+, elevated. SL RA, IVF infusing LA. Abd bruising in different stages of healing. skin slightly jaundiced. Up to BRp voided again and had medium yellow very soft-semiliquid bm. does own pericare. CBG 97. snacks provided. took lactulose w/o problems.
--- NOTE | 2024-04-01 22:36 | NUR ---
WATCHING TV, NO C/O PAIN. BED ALRMS IN PLACE, IVF INFUSING W/O PROBLEMS
--- NOTE | 2024-04-01 23:52 | NUR ---
PATIENT ASSISTED TO THE BR A SBA. PATIENT ABLE TO HAVE SMALL BM AND VOID. PATIENT IS BACK IN BED RESTING. SNACK PROVIDED. NO FURHTHER NEEDS NOTED. CALL LIGHT IN REACH.
--- NOTE | 2024-04-02 01:03 | NUR ---
PT AWAKE, HAS BEEN ASKING AND GETTING SNACKS VERY FREQUENTLY, SUGAR FREE PUDINGS, JELLO, APPLE SAUCE, SANDWICH BOX, MARIA DE JESUS RODRIGUEZ SOFT DRINKS AND CRACKERS GIVEN, FRESH WATER. C/O UPSET STOMACH, MEDICATED WITH ZOFRAN 4MG IV. SOLID FOODS REMOVED FROM TABLE. PT INSTRUCTED ON REASONING, STTATED UNDERSTANDING. FRESH WATER AND MARIA DE JESUS RODRIGUEZ DRINK LEFT AT BEDSIDE. TURNS AND REPOSITIONS SELF IN BED, NO C/O PAIN. DENIES NEED TO GET UP TO BRP
--- NOTE | 2024-04-02 02:31 | NUR ---
Pt used call light. up to BRP, voided medium yellow urine, no bm. Does own yuli care. clean attends. no further c/o feeling nauseated. fresh water and félix fina given. Back to bed, tolerated well. edema to LE much improved L leg 1+ pitting, R leg still 2+ pitting, elevated. IVf infusing. Pt awake, watching tv. no c/o pain
[2024-04-02 04:20] VITALS: BP 127/65
[2024-04-02 04:22] VITALS: BP 127/65
--- NOTE | 2024-04-02 04:25 | NUR ---
Up to BRP, voided and had loose medium bm. Does own yuli care, back to bed 1PA/cane. tolerated well. no c/o pain or n/v. lotion applied to abd scratched area and to arms, bruising arms, abd and lateral side in differesnt stages of healing. edema to R leg 2+, L leg 1+, jaundiced skin, abd large soft.
[2024-04-02 05:28] LABS: HEMATOCRIT 29.3 % (35.0-50.0); HEMOGLOBIN 10.1 g/dL (12.0-18.0); MCH 31.8 (27-36); MCHC 34.5 g/dl (30-36); PLATELET COUNT 71 K/uL (140-440); RBC 3.18 M/ul (4.3-5.7); RDW 17.7 (10.5-15.0)
[2024-04-02 05:44] LABS: ALBUMIN 2.1 g/dL (3.4-5.0); ALBUMIN/GLOBULIN RATIO 0.88 (1.1-2.4); ANION GAP 13.3 (7-21); BILIRUBIN, TOTAL 2.6 ng/dL (0.2-1.0); BUN/CREATININE RATIO 7.69 (6.0-28.6); CALCIUM 8.7 mg/dL (8.5-10.1); CREATININE, SERUM 1.82 mg/dL (0.55-1.02); MAGNESIUM 1.7 mg/dL (1.8-2.4); POTASSIUM 4.3 mmol/L (3.5-5.1); PROTEIN, TOTAL 4.5 g/dL (6.4-8.2)
[2024-04-02 06:00] LABS: BASOPHILS, MANUAL DIFF 1; EOSINOPHILS, MANUAL DIFF 13; LYMPHOCYTES, MANUAL DIFF 34; MONOCYTES, MANUAL DIFF 6; NEUTROPHILS, MANUAL DIFF 46
--- NOTE | 2024-04-02 07:34 | NUR ---
THIS SCISSORS GRINDER WITH PRIMARY RN. PRIMARY RN AND STUDENT NURSE RECEIVED REPORT FROM WHITE HAT HACKER NURSE. PATIENT AMBLUATED TO BATHROOM SBA TO VOID 800 ML. AMBULATED TO RECLINER FOR BREAKFAST. LR CONTINUES INFUSING AT RIGHT WRIST 100 ML/HR. IV SITE CDI. PATIENT DENIES FURTHER NEEDS AT THIS TIME. CALL LIGHT IN REACH.
--- NOTE | 2024-04-02 07:39 | NUR ---
REPORT RECEIVED FROM CLINICAL AIDE RN. THIS NURSE AN STUDENT NURSE IN WITH PATIENT. ASSISTED PATIENT TO BATHROOM SBA. PATIENT VOIDING QUANITY SUFFICIENT. ASSISTED PATIENT TO RECLINER. IV SITE REMAINS WNL. PATIENT DENIES ANY FURTHER NEEDS. CALL LIGHT WITHIN REACH.
[2024-04-02] MEDS ORDERED: PANTOPRAZOLE SODIUM 40 MG TABEC ONE (08:06)
--- NOTE | 2024-04-02 08:14 | NUR ---
PT SITTING UP IN CHAIR, JON DELIVERED TO PATIENT. VS STABLE, MEDS GIVEN - SEE MAR. IV FLUIDS INFUSING ORDERED. FRESH ICE WATER PROVIDED. PT DENIES ANY NEEDS THIS MORNING, CBG 103, NO INSULIN PER SLIDING SCALE. WINDOW OPENED FOR NATURAL SUNLIGHT. PT VERY APPROPRIATE AND ENGAGING IN CONVERSATION THIS MORNING. ALL PT CARE NEEDS MET AT THIS TIME, CALL LIGHT WITHIN REACH.
--- NOTE | 2024-04-02 08:27 | NUR ---
Board has been updated and glucose has been checked reading (103) No request from patient at this time. Patient is ready for breakfeast.
--- NOTE | 2024-04-02 08:51 | NUR ---
PATIENT RESTING IN RECLINER. LUNGS CTA, BOWEL TONES ACITVE X 4 QUADRANTS. PATIENT WITH SCATTERED BRUISING NOT BILATERAL UPPER EXTERMITIES. IVF INFUSING WITH NO ISSUES OR CONCERNS. IV SITES PATENT. NOTED SCRATCHED TO ABDOMEN PATIENT REPORTS SHE IS ITCHY DUE TO HER "LIVER FAILURE". PATIENT ALERT AND ORIETNED X 4 WITH MILD FORGETFULNESS AT TIMES. REWUESTINGA MARIA DE JESUS RODRIGUEZ, MARIA DE JESUS RODRIGUEZ GIVEN. PATIENT WITH NO FURTHER NEEDS CALL LIGHT WITHIN REACH.
[2024-04-02] MEDS ORDERED: SPIRONOLACTONE 100 MG TAB PO SCH (09:00)
[2024-04-02 09:25] VITALS: BP 144/61
--- NOTE | 2024-04-02 09:30 | NUR ---
PATIENT RESTING IN RECLINER WITH EYES CLOSED. RESPIRATIONS EVEN AND UNLABORED. CALL LIGHT WITHIN REACH.
[2024-04-02 10:01] VITALS: BP 144/61
--- NOTE | 2024-04-02 10:18 | NUR ---
PT SITTING UP IN CHAIR, CALL LIGHT TO USE THE BATHROOM. SBA FOR LINES, PT REQUESTED CANE FOR AMBULATION. STEADY ON FEET. PT ADVISED TO USE CALL LIGHT IN BATHROOM WHEN COMPLETED.
--- NOTE | 2024-04-02 11:34 | NUR ---
CORNCOB PIPES ASSEMBLER STAFF IN ROOM WITH PATIENT AT THIS TIME. OBTAINING BLOOD SUGAR.
--- NOTE | 2024-04-02 12:10 | NUR ---
PATIENT ASSISTED TO BATHROOM. VOIDING QUANITY SUFFICIENT. DENIES ANY PAIN OR DISCOMFORT AT THIS TIME. ASSISTED TO RECLINER FOR LUNCH. NO NEEDS AT THIS TIME. CALL LIGHT WITHIN REACH.
[2024-04-02 13:28] VITALS: BP 153/57
--- NOTE | 2024-04-02 13:28 | NUR ---
TPATIENT DISCHARGED WITH ALL PERSONAL BELONGINGS. EDUCATION COMPLETED WITH PATIENT. IV SITES DISCONTINUED WNL, VSS.
== END 2024-04-02 13:23 | disposition home or self-care (01) ==
LOC: ED 00:17 → MS 00:19
PROVIDERS: Internal Medicine; ADMIT Student in an Organized Health Care Education/Training Program; ATTEND Student in an Organized Health Care Education/Training Program
DX: K76.82 Hepatic encephalopathy (principal); K70.30 Alcoholic cirrhosis of liver without ascites; F10.21 Alcohol dependence, in remission; N17.9 Acute kidney failure, unspecified; E83.42 Hypomagnesemia; D69.6 Thrombocytopenia, unspecified; I10 Essential (primary) hypertension; E11.9 Type 2 diabetes mellitus without complications; J44.9 Chronic obstructive pulmonary disease, unspecified; F41.1 Generalized anxiety disorder; K21.9 Gastro-esophageal reflux disease without esophagitis; E78.5 Hyperlipidemia, unspecified; F32.9 Major depressive disorder, single episode, unspecified; Z87.891 Personal history of nicotine dependence; Z79.899 Other long term (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
CPT/HCPCS: 36415; 76705; 80053; 80307; 81003; 82140; 83735; 84100; 84703; 85025; 85610; 94640; 94760; 96361; 96374; 96375; 96376; 97116; 97161; 97165; 97530; 97535; 99285; A9270; G0378; G0480; J0780; J2405; J7121

== ENCOUNTER 2024-04-09 00:45 | Inpatient (IN) | payer MEDICARE, MEDICAID, OTHER ==
[~2024-04-09] VITALS: Ht 172.7 cm; Wt 101.5 kg
[2024-04-09] VITALS (11 sets, daily range): BP systolic 135–154; BP diastolic 56–73
[2024-04-09] MEDS ORDERED: FAMOTIDINE 20 MG/ 2 ML VIAL IV ONE (01:15)
[2024-04-09] MEDS ORDERED: PROCHLORPERAZINE 25 MG SUPP PR ONE (01:15)
[2024-04-09] MEDS ORDERED: PROCHLORPERAZINE EDISYLATE 10 MG/2 ML VIAL IV ONE (01:15)
[2024-04-09 01:52] LABS: BASOPHILS 1.4 % (0-2); EOSINOPHILS 6.7 % (0-6); HEMATOCRIT 35.8 % (35.0-50.0); HEMOGLOBIN 12.2 g/dL (12.0-18.0); LYMPHOCYTES 29.6 % (24-44); MCH 31.1 (27-36); MCV 91.3 fl (81-99); MONOCYTES 10.6 % (0-12); NEUTROPHILS 51.7 % (39-80); PLATELET COUNT 86 K/uL (140-440); RBC 3.92 M/ul (4.3-5.7); RDW 17.5 (10.5-15.0)
[2024-04-09 02:04] LABS: INR 1.48 (0.80-1.30); PROTIME 17.9 Sec (11.2-14.2)
[2024-04-09 02:08] LABS: ALBUMIN 2.9 g/dL (3.4-5.0); ALBUMIN/GLOBULIN RATIO 0.94 (1.1-2.4); ALCOHOL, MEDICAL <3 ng/dL (<3); ALKALINE PHOSPHATASE 148 U/L (46-116); ALT (SGPT) 46 U/L (14-59); AST (SGOT) 56 U/L (15-37); BILIRUBIN, TOTAL 3.8 ng/dL (0.2-1.0); BUN/CREATININE RATIO 9.37 (6.0-28.6); CALCIUM 8.8 mg/dL (8.5-10.1); CARBON DIOXIDE 24 mmol/L (21-32); CHLORIDE 103 mmol/L (98-107); CREATININE, SERUM 1.92 mg/dL (0.55-1.02); GLOMERULAR FILTRATION RATE,EST 32 mL/min (>60); MAGNESIUM 1.8 mg/dL (1.8-2.4); PHOSPHORUS, INORGANIC 3.1 mg/dL (2.5-4.9); UREA NITROGEN 18 mg/dL (7-18)
[2024-04-09] MEDS ORDERED: LACTATED RINGER'S 1,000 ML IV ONE (02:15)
[2024-04-09] MEDS ORDERED: LACTULOSE 20 GM/30 ML CUP PO ONE ×2 (02:30→12:45)
[2024-04-09] MEDS ORDERED: PROCHLORPERAZINE 25 MG SUPP PR PRN (02:45)
[2024-04-09] MEDS ORDERED: ALBUTEROL SULFATE 0.083% 3 ML VIAL INH PRN ×2 (03:30→17:00)
--- NOTE | 2024-04-09 04:21 | NUR ---
PT ADIMITTED TO ROOM 110 FROM ED VIA STRETCHER, AWAKE, ALERT AND ORIENTED. VERY JAUNDICE SKIN COLOR, IV RAC POSITIONAL. BRUISING ARMS FROM LAST HOSP STAY AND PREVIOUS IV'S. EDEMA TO LE 2+ ELEVATED. ON ADMIT WAS C/O DRY HEAVING, WAS MEDICATED WITH COMPAZINE IN ER. AUSTIN HERNANDEZ STARTED IN THE ER TOO. WENT BACK TO SLEEP SOON AFTER ARRIVEING, WAS COOPERATIVE WITH ADMIT QUESTIONS AND ASSESSMENTS, NO C/O PAIN AT THIS TIME
--- NOTE | 2024-04-09 05:18 | NUR ---
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 PT REQUESTING PAIN MEDS. PRIMARY RN NOTIFED. PT STATES NO FURTHER NEEDS AT THIS TIME. CALL LIGHT WITHIN REACH AND BED ALARM ON.
--- NOTE | 2024-04-09 05:21 | NUR ---
Awakens easily, no further c/o n/v or dry heaving. pure wick in place, IVF bolus from Er still infusing due to IV site positional. tolerating well. repositions self in bed.
--- NOTE | 2024-04-09 07:12 | NUR ---
REPORT RECEIVED FROM FREYA KEN. PT RESTING IN BED WITH BLANKETS PULLED OVER HER HEAD. AUDIBLE SNORING HEARD. CPOX AT BEDSIDE. CALL LIGHT IN REACH.
--- NOTE | 2024-04-09 07:55 | NUR ---
PT ASSISTED WITH SBA TO BSC. PULL-UP IS SOILED. PT VOIDS IN BSC, PROVIDES HER OWN CHANELLE-CARE, THEN REPORTS SHE MAY NEED TO HAVE A BOWEL MOVEMENT. PT SITS BACK DOWN ON BSC. PRIVACY PROVIDED, PT EDUCATED NOT TO GET UP ON HER OWN, PLEASE CALL. PT VERBALIZES UNDERSTANDING. CALL LIGHT IN REACH.
[2024-04-09] MEDS ORDERED: SPIRONOLACTONE 25 MG TAB PO SCH (09:00)
[2024-04-09] MEDS ORDERED: PANTOPRAZOLE SODIUM 40 MG TABEC PO SCH (09:00)
[2024-04-09] MEDS ORDERED: Rifaximin 200 MG TAB PO SCH ×2 (09:00→21:00)
[2024-04-09] MEDS ORDERED: LACTULOSE 20 GM/30 ML CUP PO SCH ×2 (09:00→15:00)
[2024-04-09] MEDS ORDERED: DEXTROSE 5% 1,000 ML IV PRN (11:00)
[2024-04-09] MEDS ORDERED: GLUCAGON,HUMAN RECOMBINANT 1 MG/ML VIAL SUB-Q PRN (11:00)
[2024-04-09] MEDS ORDERED: DEXTROSE 50% 50 ML SYR IV PRN ×2 (11:00)
[2024-04-09] MEDS ORDERED: IBLOOD GLUCOSE TEST STRIP 1 EA TEST XX PRN (11:00)
--- NOTE | 2024-04-09 11:59 | NUR ---
MED [facility]
[2024-04-09] MEDS ORDERED: IBLOOD GLUCOSE TEST STRIP 1 EA TEST VI SCH (12:00)
[2024-04-09] MEDS ORDERED: PHARMACY RENAL DOSE ADJUSTMENT 1 DOSE MISC PO SCH (12:00)
[2024-04-09] MEDS ORDERED: INSULIN LISPRO 100 UNIT/ML ML SUB-Q SCH (12:00)
--- NOTE | 2024-04-09 13:16 | NUR ---
PT ASSISTED UP TO BSC TO HAVE BM. PT STEADY ON FEET AMBULATING PIVOT TRANSFER CONTACT GAURD. SMALL FORMED SOFT BM PRODUCED. PT HOLDING CONVERSATION ABOUT CURRENT EVENTS WITHOUT S/S OF DISORIENTATION. BACK TO BED SITTING ON EDGE TO FINISH LUNCH.
[2024-04-09] MEDS ORDERED: ondansetron HCL 4 MG/2 ML VIAL IV PRN (13:45)
[2024-04-09] MEDS ORDERED: PROCHLORPERAZINE EDISYLATE 10 MG/2 ML VIAL IV PRN (13:45)
--- NOTE | 2024-04-09 14:22 | NUR ---
pt c/o nausea medicated with 8mg zofran at this time.
--- NOTE | 2024-04-09 14:35 | NUR ---
ASSISTED PT IN REMOVING HER CONTACTS SHE REPORTS SHE HAS BEEN WEARING FOR 4 DAYS. SUGAR FREE CRANBERRY JUICE REQUESTED - PROVIDED. PT AMBULATES WITH PERSONAL CANE AND SBA TO BATHROOM, EDUCATION PROVIDED ON USING CALL STRING, PT VERBALIZES UNDERSTANDING.
--- NOTE | 2024-04-09 15:18 | NUR ---
PT AMBULATES WITH CANE BACK TO BED AT THIS TIME. BM AND VOID NOTED. SCDs IN PLACE, CPOX IN PLACE, BED IN LOWEST POSITION WITH BED ALARM ON. PT PROVIDED WITH MENU AND PHONE TO ORDER SUPPER, NO OTHER REQUESTS, CALL LIGHT IN REACH.
--- NOTE | 2024-04-09 15:55 | NUR ---
PT IN BED LYING ON L SIDE, TEARFUL AND ANXIOUS. PT HAS EMESIS BAG IN FRONT OF HER AND REPORTS THAT SHE IS BEGINNING TO THROW UP AGAIN AND SHE FEELS PANICKED THAT "THIS WILL NEVER END". PRN NAUSEA MEDICATION ADMINISTERED, SEE MAR. PT EXPRESSING SOME CONFUSION AT THIS TIME REGARDING TIME AND PEOPLE. PT ASKING IF THE SUPPOSITORY SHE RECEIVED WILL MAKE HER DROWSY. INFORMED PT THAT SHE HAS NO RECEIVED A SUPPOSITORY FROM THIS RN. PT CONFUSED AND REPORTS SHE BELIEVES SHE RECENTLY RECEIVED A SUPPOSITORY. PT ASKS IF DR IRAHETA WILL BE RETURNING TO SEE HER. PT INFORMED THAT DR IRAHETA IS NOT HER DOCTOR AT THE MOMENT, SHE IS SEEING DR MCALLISTER. PT IS UNSURE OF THIS. PT IS TEARFUL AND ASKS IF SHE IS GETTING SICK WITH SOMETHING, SHE FEELS COLD. WARM BLANKETS PROVIDED. PT IS MOVING HER LEGS REPEATEDLY IN BED, STATES SHE IS ATTEMPTING TO MOVE THEM TO MAKE THEM TIRED SO SHE CAN TAKE A NAP BECAUSE SHE IS VERY TIRED BUT CAN'T REST. PT PULLS BLANKETS OVER HER HEAD AND BEGINS TO RELAX. BED IN LOWEST POSITION, BED ALARM ON, CALL LIGHT IN PLACE, PT HAS NO FURTHER REQUESTS AT THIS TIME.
--- NOTE | 2024-04-09 18:20 | NUR ---
PT SITTING ON EDGE OF BED EATING DINNER, REQUESTS BATHROOM. PT AMBULATES WITH CANE AND SBA TO RESTROOM. PT EDUCATED ON USING CALL LIGHT WHEN SHE IS DONE, PT VERBALIZES UNDERSTANDING.
--- NOTE | 2024-04-09 19:56 | NUR ---
awakens easily, Jaundiced skin, alert and oriented to all. and distnded. edema to LE 3+ declined to have sds back on on return from brp. On room air, dim at baes, LBM today. 1PA/Cane. CPOX off as she took it off, will notify RT. Back to bed, cooperative. Pure wick applied at pts request. Bed alarm in place
--- NOTE | 2024-04-09 21:18 | NUR ---
RESTING, EYES CLOSED, TOOK MEDS W/O PROBLEMS, CBG 82, NO COVERAGE NEEDED, JUICE GIVEN WITH LACTULOSE AND SNACK GIVEN EARLIER. NO FURTHER C/O
--- NOTE | 2024-04-09 22:35 | NUR ---
RESTING, EYES CLOSED, NO S/SX DISTRESS. PURE WICK IN PLACE, BED ALRMS ON
[2024-04-10] VITALS (12 sets, daily range): BP systolic 15–158; BP diastolic 38–74
--- NOTE | 2024-04-10 00:45 | NUR ---
RESTING, EYES CLOSED, NO S/SX DISTRESS. REPOSITIONS SELF IN BED. ALARMS IN PLACE. SCDS OFF HER REQUESTS. [facility]
[2024-04-10 02:42] LABS: BILIRUBIN, URINE NEGATIVE (negative); BLOOD/HGB, URINE NEGATIVE (Negative); KETONE, URINE NEGATIVE (Negative); LEUK ESTERASE, URINE NEGATIVE (negative); NITRITE, URINE NEGATIVE (negative)
--- NOTE | 2024-04-10 03:01 | NUR ---
Used call light,Pt has purewick in place, voided some urine, wanted to get up to BRP, voided large amount of clear urine, sample sent to lab. On room air walked back to bed, 1PA/cane. tolerated well. no c/o pain or n/v pop and snacks given on requests and pure wick replaced at her request.
[2024-04-10 05:30] LABS: HEMATOCRIT 31.2 % (35.0-50.0); HEMOGLOBIN 10.8 g/dL (12.0-18.0); LYMPHOCYTES 26.6 % (24-44); MCH 31.9 (27-36); MCHC 34.7 g/dl (30-36); MCV 91.9 fl (81-99); MONOCYTES 13.8 % (0-12); NEUTROPHILS 50.6 % (39-80); PLATELET COUNT 75 K/uL (140-440); RBC 3.39 M/ul (4.3-5.7); RDW 17.3 (10.5-15.0)
--- NOTE | 2024-04-10 05:30 | NUR ---
Cooperative with lab drawns and vitals. On room air, Pure wick in place. warm pad to back of neck given earlier and replaced at this time. Has asked nd received multiple cans of soda, crackers and snacks. pt is on a 60 gram carb diet. turns and repositions self in bed, bruising of arms, back and scabbings self scratches of arms, abd legs and back healing. Lotion was applied earlier. Declines SCD's. alrms on
[2024-04-10 05:55] LABS: ALBUMIN 2.1 g/dL (3.4-5.0); ALBUMIN/GLOBULIN RATIO 0.88 (1.1-2.4); ANION GAP 11.9 (7-21); BILIRUBIN, TOTAL 3.4 ng/dL (0.2-1.0); BUN/CREATININE RATIO 7.51 (6.0-28.6); CALCIUM 8.5 mg/dL (8.5-10.1); CREATININE, SERUM 1.73 mg/dL (0.55-1.02); POTASSIUM 3.9 mmol/L (3.5-5.1); PROTEIN, TOTAL 4.5 g/dL (6.4-8.2)
--- NOTE | 2024-04-10 07:00 | NUR ---
REPORT RECEIVED FROM FREYA KEN. PT RESTING IN BED ON HER PHONE. NO REQUESTS, CALL LIGHT IN REACH.
--- NOTE | 2024-04-10 08:35 | NUR ---
tBoard has been updated and call light has been placed within reach, No request from patient at this time. Female purewick has been taken out
--- NOTE | 2024-04-10 08:41 | NUR ---
MEDICATION ADMINISTERED, SEE MAR. ASSESSMENT COMPLETE. PT RESTING IN RECLINER CONVERSING PLEASANTLY ABOUT THE MOVIE SHE IS WATCHING. SHE IS ALERT AND ORIENTED X4, NO CONFUSION NOTED AT THIS TIME. PT HAS 2+ EDEMA IN BLE, ENCOURAGED TO ELEVATE AND PLACED TWO PILLOWS BENEATH AT THIS TIME. PT COMPLAINS OF A HEADACHE SHE SAYS HAS BEEN CONSTANT FOR YEARS SHE CANNOT TAKE TYLENOL. REQUESTING HEAT PACK FOR HER NECK, SHE REPORTS THIS HELPS RELAX HER NECK AND ALLOWS HER TO "POP IT" - PROVIDED. PT REPORTS NAUSEA APPROXIMATELY 10 MINUTES AFTER TAKING LACTULOSE. EMESIS BAG PROVIDED, PRN NAUSEA MEDICATION PROVIDED. IV IN L HAND FLUSHES WNL, NO PAIN REPORTED. PT APPLIES LOTION TO LOWER BACK AND UPPER BUTTOCKS AT THIS TIME. NO OTHER REQUESTS OR COMPLAINTS AT THIS TIME, CALL LIGHT AND PERSONAL BELONGINGS IN REACH.
--- NOTE | 2024-04-10 08:41 | NUR ---
ATTEMPTED TO CONTACT RESPIRATORY THERAPY X2 FROM SEPARATE PHONES. CALL GOES STRAIGHT TO VOICEMAIL.
[2024-04-10] MEDS ORDERED: SPIRONOLACTONE 25 MG TAB PO SCH (09:00)
[2024-04-10] MEDS ORDERED: PANTOPRAZOLE SODIUM 40 MG TABEC PO SCH (09:00)
--- NOTE | 2024-04-10 10:11 | NUR ---
ATTEMPTED TO CONTACT RESPIRATORY THERAPY, STRAIGHT TO VOICEMAIL. PULLED NEBULIZER MEDICATION TO SELF ADMINISTER. MAURICE FROM RESPIRATORY THERAPY WALKING BY AT THIS TIME, NOTIFIED IN PERSON THAT PT WANTS A BREATHING TX. MAURICE FROM RT TAKES TREATMENT THIS RN PULLED AND ENTERS PT ROOM.
[2024-04-10] MEDS ORDERED: buPROPion HCL 75 MG TAB PO SCH (10:20)
[2024-04-10] MEDS ORDERED: LACTULOSE 10 GM/15 ML ML PR SCH (15:00)
--- NOTE | 2024-04-10 15:36 | NUR ---
PT RESTING IN BED, REPORTS ABD PAIN IS 7/10 AND REPORTS IT IS R/T HER LIVER PROBLEMS. ABD IS TENDER TO PALPATION, PT REPORTS PAIN "ALL OVER IT". WARM BLANKET FOLDED AND DRAPED OVER ABD AT THIS TIME. PT REPORTS NO NAUSEA, NO OTHER PAIN, NO HEADACHE. SHE IS ALERT AND ORIENTED, JOKING AROUND AND CONVERSING PLEASANTLY. PT HAS HAD ONE BOWEL MOVEMENT SINCE [place] ADMINISTRATION OF LACTULOSE. IV IN L HAND FLUSHES WNL, SALINE LOCKED. NO REQUESTS AT THIS TIME, CALL LIGHT IN REACH.
--- NOTE | 2024-04-10 18:06 | NUR ---
PT AMBULATES WITH JUSTYN AND AMADA LAM TO RESTROOM. PT REQUESTING TO USE PUREWICK SO SHE DOESN'T HAVE TO GET UP. PT EDUCATED ON USING RESTROOM DURING THE DAY AND KEEPING HER SKIN CLEAN AND DRY. PT VERBALIZES UNDERSTANDING BUT ALSO IS DISPLEASED THAT SHE HAS TO GET UP. AMADA LAM REMAINS WORKING WITH PT.
--- NOTE | 2024-04-10 18:26 | NUR ---
PT AMBULATES WITH CANE TO RESTROOM, REPORTS SHE HAS TO HAVE A BM. PT IN RESTROOM AT THIS TIME, EDUCATED TESTER COMPRESSED GASES LIGHT CORD, VERBALIZES UNDERSTANDING.
--- NOTE | 2024-04-10 20:23 | NUR ---
AWAKE, ALERT AND ORIENTED. ON ROOM AIR, CLEAR LUNGS, JAUNDICED SKIN COLORING, BRUISING ARMS IN DIFFERENT STAGES OF HEALING ALONG WITH MUTIPLE AREAS SELF SCRATCHING AND SCABBING ARMS, ABD, BACK AND UPPER LEGS. LOTION APPLIED. BSC/SBA/CANE. TOOK PO LACTULOSE. SNACKS AND MARIA DE JESUS RODRIGUEZ GIVEN ON REQUEST. CBG 96. EDEMA TO LE 3+ ELEVATED, ENCOURAGE TO KEEP LE ELEVATED TO DECREASE EDEMA. MORE STEADY WILL NOT TURN BED ALRMS ON AT THIS TIME FAMILY VISITING.
--- NOTE | 2024-04-11 00:22 | NUR ---
resting, eyes closed, on room air. no s/sx distress.
--- NOTE | 2024-04-11 02:12 | NUR ---
Used call light, has been independnetly getting up to use BSC. incontinent of liquid bm. voided, Back to bed. does own yuli care. edema to LE no changes. COoperative with assessment
[2024-04-11 05:00] VITALS: BP 132/54
[2024-04-11 05:03] VITALS: BP 132/54
--- NOTE | 2024-04-11 05:41 | NUR ---
Up to BSC, voided and had small to medium loose stools. Independent. on room air. tolerataing liquids well, no n/v. pleasant and cooperative, jaundiced skin. does own care.
[2024-04-11 05:52] LABS: BASOPHILS 0.9 % (0-2); EOSINOPHILS 10.1 % (0-6); HEMATOCRIT 30.8 % (35.0-50.0); HEMOGLOBIN 10.6 g/dL (12.0-18.0); LYMPHOCYTES 27.2 % (24-44); MCH 31.8 (27-36); MCHC 34.5 g/dl (30-36); MCV 92.3 fl (81-99); MONOCYTES 11.2 % (0-12); NEUTROPHILS 50.6 % (39-80); PLATELET COUNT 72 K/uL (140-440); RBC 3.34 M/ul (4.3-5.7)
[2024-04-11 06:02] LABS: ALBUMIN 2.1 g/dL (3.4-5.0); ALBUMIN/GLOBULIN RATIO 0.88 (1.1-2.4); ANION GAP 13.8 (7-21); BILIRUBIN, TOTAL 2.5 ng/dL (0.2-1.0); BUN/CREATININE RATIO 9.09 (6.0-28.6); CALCIUM 8.5 mg/dL (8.5-10.1); CREATININE, SERUM 1.65 mg/dL (0.55-1.02); POTASSIUM 3.8 mmol/L (3.5-5.1); PROTEIN, TOTAL 4.5 g/dL (6.4-8.2)
--- NOTE | 2024-04-11 07:44 | NUR ---
REPORT RECEIVED FROM SHEA RN. PT RESTING IN BED AT THIS TIME, ALL PT CARE NEEDS MET AT THIS TIME. PT DENIES ANY NEEDS AT THIS TIME.
--- NOTE | 2024-04-11 07:50 | NUR ---
UR CLINICAL REVIEW: 2 MN FOR VERSALUS-MEET INPT FOR HEPATIC ENCEPHALOPATHY INPT 04/09/24 @ 1101 ORDER MATCHES REG NO AUTH REQUIRED PER MEDICARE GUIDELINES DISCHARGE TO HOME WHEN STABLE. ANTICIPATE 24-48 HOURS.
--- NOTE | 2024-04-11 08:27 | NUR ---
PATIENT IN BED AT THIS TIME. CLINICAL SPECIALTY REP CHARTED PATIENTS BLOODSUGAR, CALL LIGHT WITHIN REACH, NO FURTHER NEEDS AT THIS TIME.
[2024-04-11 09:30] VITALS: BP 131/72
--- NOTE | 2024-04-11 09:46 | NUR ---
PATIENT ALERT AND ORIENTED THIS AM. ASSESSMENT COMPLETED. SHE IS CURRENTLY LIVING HOME ALONE, NIECE JUST MOVED OUT LAST WEEK. PATIENT STATES SHE DOES HAVE A NURSE FROM [facility] COME TO SEE HER ONCE A WEEK FOR MEDICATION MANAGEMENT. STATES SHE HAS HER NIECE CHECK ON HER, IN PERSON DAILY. HER BROTHER AND SISTER CALL HER DAILY TO CHECK ON HER. STATES SHE WOULD BE AGREEABLE TO SNF, HOWEVER, SPEAKING WITH STAFF SHE IS CURRENTLY AT HER BASELINE FOR MOBILITY. SPOKE WITH FREYA MUNIZ, AT [facility]. SHE SETS PATIENT'S MEDS UP WEEKLY AND IS SCHEDULED TO SEE HER TOMORROW. SHE ALSO STATES PATIENT HAS AN APPOINTMENT WITH DR. BROWN ON THURSDAY AND THEY DISCUSSED A CAREGIVER LAST WEEK AND PLAN TO REVISIT AND START CAREGIVER PROCESS WITH PATIENT.
--- NOTE | 2024-04-11 10:06 | NUR ---
DISCUSSED DC PLAN WITH PATIENT. SHE THINKS SHE CAN GO HOME. INFORMED HER FREYA MUNIZ, WILL BE IN TOMORROW TO SET HER MEDS UP AND FOLLOW-UP WITH DR. BROWN ON THURSDAY.
--- NOTE | 2024-04-11 10:19 | NUR ---
PATIENT IN CHAIR AT THIS TIME. ELECTRONIC EQUIPMENT INSTALLER ASSISTED PATIENT TO CHAIR AND THEN CHARTED VITALS AND I&O'S. CALL LIGHT WITHIN REACH, NO FURTHER NEEDS AT THIS TIME.
[2024-04-11 10:32] VITALS: BP 131/72
--- NOTE | 2024-04-11 11:15 | NUR ---
Upon entering room I find Tiny to be in her chair, and awake, television is on, and Shanae appears to be watching T.V. IMM letter presented and explained to Tiny, Tiny states that she is ready to go home but would like to speak to the physician first to ensure that he feels her "ammonia is low enough". I was able to assure Tiny that the physician will not discharge her before speaking with her. Tiny was agreeable to this plan, and was agreeable to sign the IMM letter for discharge. A signed copy of the discharge was also given to Tiny.
--- NOTE | 2024-04-11 12:25 | NUR ---
PT UP IN CHAIR HAVING LUNCH. BLOOD SUGAR IS 107, NO INSULIN PER SLIDING SCALE. PT STEADY ON HER FEET, AMBULATES INDEPENDENTLY TO THE BATHROOM. PT HAS SMALL BM THIS AFTERNOON. DENIES ANY NEEDS AT THIS TIME. CALL LIGHT WITHIN REACH, PT ADVISED WE ARE WORKING ON DISCHARGE AT THIS TIME, WILL PROVIDE TRANSPORTATION HOME. PT VERBALIZED UNDERSTANDING AND AGREES.
--- NOTE | 2024-04-11 12:56 | NUR ---
PT INFORMED SHE IS DISCHARGED, WE WERE ATTEMPTING TO SCHEDULE A TAXI BUT PATIENT REQUESTED SHE CALL HER COUSIN, WHICH IS COMING NOW TO ESTHETIC DERMATOLOGIST. IV REMOVED, DISCHARGE PAPERS GONE OVER WITH PATIENT.
== END 2024-04-11 13:10 | disposition home or self-care (01) | DRG 642 ==
LOC: ED 00:45 → MS 00:47
PROVIDERS: Internal Medicine; ADMIT Family Medicine; ATTEND Family Medicine
DX: E72.20 Disorder of urea cycle metabolism, unspecified (principal); N18.9 Chronic kidney disease, unspecified; F41.1 Generalized anxiety disorder; D69.6 Thrombocytopenia, unspecified; K21.9 Gastro-esophageal reflux disease without esophagitis; E11.22 Type 2 diabetes mellitus with diabetic chronic kidney disease; I12.9 Hypertensive chronic kidney disease with stage 1 through stage 4 chronic kidney disease, or unspecified chronic kidney disease; K76.82 Hepatic encephalopathy; K70.30 Alcoholic cirrhosis of liver without ascites; E78.5 Hyperlipidemia, unspecified; J45.909 Unspecified asthma, uncomplicated; F32.A Depression, unspecified; Z98.890 Other specified postprocedural states
CPT/HCPCS: 36415; 80053; 81003; 82140; 83690; 83735; 84100; 85025; 85610; 94640; 94760; 94762; 94799; 96361; 96374; 99284-25; A9270; G0378; G0480; J0780; J2405; J7121

== ENCOUNTER 2024-04-15 17:26 | Emergency (ER) | payer MEDICARE, MEDICAID, OTHER ==
[~2024-04-15] VITALS: Ht 172.7 cm; Wt 99.8 kg
[2024-04-15] MEDS ORDERED: SODIUM CHLORIDE 0.9% 1,000 ML IV ONE (17:45)
[2024-04-15] MEDS ORDERED: LACTULOSE 20 GM/30 ML CUP PO ONE ×2 (17:45→19:00)
[2024-04-15 17:57] LABS: HEMOGLOBIN 11.5 g/dL (12.0-18.0); MCH 31.6 (27-36)
[2024-04-15 17:59] LABS: BASOPHILS 1.4 % (0-2); EOSINOPHILS 6.6 % (0-6); HEMATOCRIT 33.3 % (35.0-50.0); LYMPHOCYTES 27.7 % (24-44); MCHC 34.4 g/dl (30-36); MONOCYTES 15.5 % (0-12); NEUTROPHILS 48.8 % (39-80); PLATELET COUNT 81 K/uL (140-440); RBC 3.62 M/ul (4.3-5.7)
[2024-04-15 18:12] LABS: ALBUMIN 2.7 g/dL (3.4-5.0); ANION GAP 16.4 (7-21); BILIRUBIN, TOTAL 2.8 ng/dL (0.2-1.0); CALCIUM 8.1 mg/dL (8.5-10.1); POTASSIUM 3.4 mmol/L (3.5-5.1); PROTEIN, TOTAL 5.4 g/dL (6.4-8.2)
[2024-04-15 19:07] VITALS: BP 122/61
== END 2024-04-15 19:08 | disposition home or self-care (01) ==
LOC: ED 17:26
PROVIDERS: Emergency Medicine
DX: G93.49 Other encephalopathy (principal); E87.1 Hypo-osmolality and hyponatremia; E72.20 Disorder of urea cycle metabolism, unspecified; T47.3X6A Underdosing of saline and osmotic laxatives, initial encounter; K70.30 Alcoholic cirrhosis of liver without ascites; I10 Essential (primary) hypertension; E78.5 Hyperlipidemia, unspecified; E11.9 Type 2 diabetes mellitus without complications; J44.89 Other specified chronic obstructive pulmonary disease; Z91.148 Patient's other noncompliance with medication regimen for other reason; Z87.891 Personal history of nicotine dependence; Z79.899 Other long term (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
CPT/HCPCS: 36415; 80053; 82140; 85025; 99283; J7030

== ENCOUNTER 2024-04-19 04:18 | Observation (INO) | payer MEDICARE, MEDICAID, OTHER ==
[~2024-04-19] VITALS: Ht 172.7 cm; Wt 104.4 kg
[2024-04-19] MEDS ORDERED: droPERidol 5 MG/2 ML VIAL IV ONE (04:45)
[2024-04-19 04:54] LABS: BASOPHILS 0.5 % (0-2); EOSINOPHILS 4.8 % (0-6); HEMATOCRIT 33.9 % (35.0-50.0); HEMOGLOBIN 11.9 g/dL (12.0-18.0); LYMPHOCYTES 26.4 % (24-44); MCH 31.5 (27-36); MCHC 35.1 g/dl (30-36); MCV 89.8 fl (81-99); MONOCYTES 15.3 % (0-12); PLATELET COUNT 84 K/uL (140-440); RBC 3.77 M/ul (4.3-5.7); RDW 16.7 (10.5-15.0)
[2024-04-19 05:01] LABS: ALBUMIN 2.8 g/dL (3.4-5.0); ALBUMIN/GLOBULIN RATIO 0.97 (1.1-2.4); ANION GAP 15.6 (7-21); BUN/CREATININE RATIO 10.58 (6.0-28.6); CALCIUM 8.6 mg/dL (8.5-10.1); CREATININE, SERUM 1.7 mg/dL (0.55-1.02); MAGNESIUM 1.8 mg/dL (1.8-2.4); POTASSIUM 4.6 mmol/L (3.5-5.1); PROTEIN, TOTAL 5.7 g/dL (6.4-8.2)
[2024-04-19] MEDS ORDERED: LACTULOSE 20 GM/30 ML CUP PO ONE (05:15)
[2024-04-19] MEDS ORDERED: ondansetron HCL 4 MG/2 ML VIAL IV PRN ×2 (06:00→10:30)
[2024-04-19] MEDS ORDERED: ZOLPIDEM TARTRAT5 MG PO (07:52)
[2024-04-19] MEDS ORDERED: LACTULOSE 20 GM/30 ML CUP PO SCH ×2 (09:00→15:00)
[2024-04-19] MEDS ORDERED: Rifaximin 200 MG TAB PO SCH (09:00)
[2024-04-19] MEDS ORDERED: buPROPion HCL 75 MG TAB PO SCH ×2 (09:00→21:00)
[2024-04-19] MEDS ORDERED: SPIRONOLACTONE 25 MG TAB PO SCH (09:00)
[2024-04-19] MEDS ORDERED: Rifaximin 550 MG TAB PO SCH ×2 (09:00→21:00)
[2024-04-19] MEDS ORDERED: POTASSIUM CHLORIDE 10 MEQ TABCR PO SCH (09:00)
[2024-04-19] MEDS ORDERED: FOLIC ACID 1 MG TAB PO SCH (10:27)
[2024-04-19 10:28] VITALS: BP 163/59
[2024-04-19] MEDS ORDERED: PANTOPRAZOLE SODIUM 40 MG TABEC PO SCH (10:28)
[2024-04-19] MEDS ORDERED: ACETAMINOPHEN 500 MG TAB PO PRN (10:30)
[2024-04-19] MEDS ORDERED: ZOLPIDEM TARTRATE 5 MG TAB PO PRN (10:30)
[2024-04-19] MEDS ORDERED: PHARMACY RENAL DOSE ADJUSTMENT 1 DOSE MISC PO SCH (12:00)
[2024-04-19 13:18] VITALS: BP 138/54
[2024-04-19 15:18] LABS: BILIRUBIN, URINE NEGATIVE (negative); BLOOD/HGB, URINE NEGATIVE (Negative); KETONE, URINE NEGATIVE (Negative); LEUK ESTERASE, URINE NEGATIVE (negative); NITRITE, URINE NEGATIVE (negative)
[2024-04-19 15:23] LABS: RED BLOOD CELLS, URINE 0-1 /hpf (0-5); WHITE BLOOD CELLS, URINE 0-1 /HPF (0-5)
[2024-04-19 15:24] LABS: BACTERIA, URINE RARE /hpf (negative); CASTS, URINE NONE SEEN \\lpf; COLLECTION TYPE, URINE CLEAN CATCH; CRYSTALS, URINE NONE SEEN (0-1+); REFLEX CULTURE, URINE No (No)
[2024-04-19] MEDS ORDERED: hydrOXYzine pamoate 25 MG CAP PO PRN (17:45)
[2024-04-19 17:51] VITALS: BP 126/56
[2024-04-19 21:07] VITALS: BP 147/63
[2024-04-19 21:51] VITALS: BP 147/63
[2024-04-20] VITALS (7 sets, daily range): BP systolic 138–148; BP diastolic 61–68
[2024-04-20 05:46] LABS: HEMATOCRIT 31.6 % (35.0-50.0); HEMOGLOBIN 11.1 g/dL (12.0-18.0); MCH 31.5 (27-36); PLATELET COUNT 87 K/uL (140-440); RBC 3.51 M/ul (4.3-5.7); RDW 16.7 (10.5-15.0)
[2024-04-20 05:59] LABS: BANDS, MANUAL DIFF 3; BASOPHILS, MANUAL DIFF 2; EOSINOPHILS, MANUAL DIFF 3; LYMPHOCYTES, MANUAL DIFF 36; MONOCYTES, MANUAL DIFF 9; NEUTROPHILS, MANUAL DIFF 47
[2024-04-20 06:00] LABS: ALBUMIN 2.4 g/dL (3.4-5.0); ALBUMIN/GLOBULIN RATIO 0.96 (1.1-2.4); ANION GAP 14.4 (7-21); BILIRUBIN, TOTAL 2.6 ng/dL (0.2-1.0); BUN/CREATININE RATIO 9.77 (6.0-28.6); CALCIUM 8.4 mg/dL (8.5-10.1); CREATININE, SERUM 1.74 mg/dL (0.55-1.02); MAGNESIUM 1.7 mg/dL (1.8-2.4); POTASSIUM 4.4 mmol/L (3.5-5.1); PROTEIN, TOTAL 4.9 g/dL (6.4-8.2)
[2024-04-20] MEDS ORDERED: MAGNESIUM SULFATE 2 GM/50 ML BAG IV SCH (08:00)
[2024-04-20] MEDS ORDERED: LACTULOSE10 GM/15 M PO (08:56)
[2024-04-20] MEDS ORDERED: SPIRONOLACTONE 100 MG TAB PO SCH (09:00)
[2024-04-21] MEDS ORDERED: FERROUS SULFATE 325 MG TAB PO SCH (09:00)
== END 2024-04-20 12:00 | disposition home or self-care (01) ==
LOC: ED 04:18 → MS 04:20
PROVIDERS: Family Medicine; ADMIT Student in an Organized Health Care Education/Training Program; ATTEND Student in an Organized Health Care Education/Training Program
DX: K76.82 Hepatic encephalopathy (principal); E11.9 Type 2 diabetes mellitus without complications; D50.9 Iron deficiency anemia, unspecified; K21.9 Gastro-esophageal reflux disease without esophagitis; G47.00 Insomnia, unspecified; K70.30 Alcoholic cirrhosis of liver without ascites; I10 Essential (primary) hypertension; J44.9 Chronic obstructive pulmonary disease, unspecified; E78.5 Hyperlipidemia, unspecified; F32.A Depression, unspecified; Z87.891 Personal history of nicotine dependence; Z79.899 Other long term (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
CPT/HCPCS: 36415; 80053; 81001; 82140; 83735; 85025; 96365; 96374; 96375; 96376; 97161; 97165; 99285-25; A9270; G0378; J1790; J2405; J3475; Q0177

== ENCOUNTER 2024-04-23 11:52 | Emergency (ER) | payer MEDICARE, MEDICAID, OTHER ==
[~2024-04-23] VITALS: Ht 172.7 cm; Wt 102.1 kg
[~2024-04-23 11:52] MED LIST changes: +LACTULOSE10 GM/15 M PO; +ZOLPIDEM TARTRAT5 MG PO
[2024-04-23] MEDS ORDERED: CEPHALEXIN500 M1 PO (12:24)
[2024-04-23] MEDS ORDERED: CEPHALEXIN MONOHYDRATE 500 MG CAP PO ONE (12:30)
[2024-04-23 12:31] VITALS: BP 148/73
== END 2024-04-23 12:32 | disposition home or self-care (01) ==
LOC: ED 11:52
DX: L03.115 Cellulitis of right lower limb (principal); E11.9 Type 2 diabetes mellitus without complications; J44.89 Other specified chronic obstructive pulmonary disease; I10 Essential (primary) hypertension; E78.5 Hyperlipidemia, unspecified; K74.60 Unspecified cirrhosis of liver; Z87.891 Personal history of nicotine dependence; Z79.899 Other long term (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
CPT/HCPCS: 99283; A9270

== ENCOUNTER 2024-04-27 19:09 | Emergency (ER) | payer MEDICARE, MEDICAID, OTHER ==
[~2024-04-27] VITALS: Ht 172.7 cm; Wt 103.4 kg
[~2024-04-27 19:09] MED LIST changes: +CEPHALEXIN500 M1 PO
[2024-04-27] MEDS ORDERED: CEPHALEXIN500 MG PO (19:58)
[2024-04-27 20:29] LABS: CORONAVIRUS COVID-19 AG NEGATIVE (NEGATIVE); INFLUENZA A AG NEGATIVE (NEGATIVE); INFLUENZA B AG NEGATIVE (NEGATIVE)
[2024-04-27 20:54] LABS: BASOPHILS 0.7 % (0-2); EOSINOPHILS 3.7 % (0-6); HEMOGLOBIN 12.5 g/dL (12.0-18.0); LYMPHOCYTES 32.9 % (24-44); MCH 31.4 (27-36); MCHC 34.6 g/dl (30-36); MCV 90.5 fl (81-99); MONOCYTES 9.3 % (0-12); NEUTROPHILS 53.4 % (39-80); PLATELET COUNT 89 K/uL (140-440); RBC 3.98 M/ul (4.3-5.7); RDW 15.7 (10.5-15.0)
[2024-04-27 21:12] LABS: ALBUMIN 3.1 g/dL (3.4-5.0); ALBUMIN/GLOBULIN RATIO 0.97 (1.1-2.4); ANION GAP 14.7 (7-21); BILIRUBIN, TOTAL 3.3 ng/dL (0.2-1.0); BUN/CREATININE RATIO 11.68 (6.0-28.6); CALCIUM 8.9 mg/dL (8.5-10.1); CREATININE, SERUM 2.14 mg/dL (0.55-1.02); MAGNESIUM 1.7 mg/dL (1.8-2.4); POTASSIUM 3.7 mmol/L (3.5-5.1); PROTEIN, TOTAL 6.3 g/dL (6.4-8.2)
[2024-04-27] MEDS ORDERED: KETOROLAC TROMETHAMINE 30 MG/ML VIAL IV ONE (21:30)
[2024-04-27 21:31] LABS: BILIRUBIN, URINE NEGATIVE (negative); BLOOD/HGB, URINE NEGATIVE (Negative); KETONE, URINE NEGATIVE (Negative); LEUK ESTERASE, URINE NEGATIVE (negative); NITRITE, URINE NEGATIVE (negative)
[2024-04-27 21:36] LABS: BACTERIA, URINE RARE /hpf (negative); CASTS, URINE NONE SEEN \\lpf; COLLECTION TYPE, URINE CLEAN CATCH; CRYSTALS, URINE NONE SEEN (0-1+); EPITHELIAL CELLS, URINE SQUAMOUS 2+ /lpf (0-1+); RED BLOOD CELLS, URINE 0-1 /hpf (0-5); REFLEX CULTURE, URINE No (No); WHITE BLOOD CELLS, URINE 0-1 /HPF (0-5)
[2024-04-27] MEDS ORDERED: REGLAN10 MG PO (23:05)
[2024-04-27 23:25] VITALS: BP 143/65
--- NOTE | 2024-04-29 17:07 | EKG ---
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
== END 2024-04-27 23:25 | disposition home or self-care (01) ==
LOC: ED 19:09
PROVIDERS: Emergency Medicine
DX: R51.9 Headache, unspecified (principal); R42 Dizziness and giddiness; K74.60 Unspecified cirrhosis of liver; E11.9 Type 2 diabetes mellitus without complications; I10 Essential (primary) hypertension; E78.5 Hyperlipidemia, unspecified; J44.89 Other specified chronic obstructive pulmonary disease; Z87.891 Personal history of nicotine dependence; Z79.899 Other long term (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
CPT/HCPCS: 36415; 70450; 80053; 81001; 82140; 83735; 84484; 84703; 85025; 93005; 93010; 96374; 99284-25; J1885

== ENCOUNTER 2024-05-01 19:38 | Observation (INO) | payer MEDICARE, MEDICAID, OTHER ==
[~2024-05-01] VITALS: Ht 172.7 cm; Wt 101.6 kg
[2024-05-01] MEDS ORDERED: ondansetron HCL 4 MG/2 ML VIAL IV ONE (21:30)
[2024-05-01 21:35] LABS: HEMATOCRIT 32.8 % (35.0-50.0)
[2024-05-01 21:37] LABS: BASOPHILS 0.7 % (0-2); EOSINOPHILS 4.8 % (0-6); HEMOGLOBIN 11.1 g/dL (12.0-18.0); LYMPHOCYTES 19.8 % (24-44); MCH 30.8 (27-36); MCHC 33.8 g/dl (30-36); MCV 91.2 fl (81-99); MONOCYTES 12.2 % (0-12); NEUTROPHILS 62.5 % (39-80); PLATELET COUNT 76 K/uL (140-440); RDW 15.9 (10.5-15.0)
[2024-05-01 21:50] LABS: ALBUMIN 2.8 g/dL (3.4-5.0); ALBUMIN/GLOBULIN RATIO 1.04 (1.1-2.4); ANION GAP 13.8 (7-21); BILIRUBIN, TOTAL 2.5 mg/dL (0.2-1.0); BUN/CREATININE RATIO 11.7 (6.0-28.6); CALCIUM 8.6 mg/dL (8.5-10.1); CREATININE, SERUM 2.05 mg/dL (0.55-1.02); POTASSIUM 4.8 mmol/L (3.5-5.1); PROTEIN, TOTAL 5.5 g/dL (6.4-8.2)
[2024-05-01 21:56] LABS: INR 1.4 (0.80-1.30); PROTIME 17.1 Sec (11.2-14.2)
[2024-05-01] MEDS ORDERED: droPERidol 5 MG/2 ML VIAL IV ONE (22:30)
[2024-05-01] MEDS ORDERED: LACTULOSE 20 GM/30 ML CUP PO ONE (23:45)
[2024-05-01] MEDS ORDERED: SODIUM CHLORIDE 0.9% 500 ML IV ONE (23:45)
[2024-05-01] MEDS ORDERED: Rifaximin 550 MG TAB PO ONE (23:45)
[2024-05-02] VITALS (10 sets, daily range): BP systolic 136–157; BP diastolic 55–76
[2024-05-02] MEDS ORDERED: MORPHINE SULFATE 4 MG/ML VIAL IV PRN (00:30)
[2024-05-02] MEDS ORDERED: PROCHLORPERAZINE EDISYLATE 10 MG/2 ML VIAL IV PRN (00:30)
[2024-05-02] MEDS ORDERED: ondansetron HCL 4 MG/2 ML VIAL IV PRN ×2 (00:30→11:45)
--- NOTE | 2024-05-02 01:25 | NUR ---
0109- ADMITTED TO ROOM 111 FROM ER VIA GOURNEY. DROWSY BUT ANSWERS SOME QUESTIONS. RECEIVED COMPAZINE IN THE ED. ON ROOM AIR, LUNGS DIM AT BASES, NO COUGH AT THIS TIME. JAUNDICE SKIN, BRUISED ARMS AND ALLEVYN TO L LATERAL MID SOLE, BANDAID IN R SOLE. SL 22G R HAND. ABD SOFT ELENO, STATED LBM 05/01. WAS GIVEN LACTULOSE IN THE ED. ADMIT HX OBTAINED FROM PAST HX PT WAS TOO DROWSY TO ANSWER SOME QUESTIONS. PUREWICK IN PLACE. BED ALRM ON PER NURSING JUDGEMENT
--- NOTE | 2024-05-02 02:38 | NUR ---
Resting, eyes closed, no s/sx distress. jaundiced skin, on room air. Bed alrm in place, pure wick in place, no drainage at thist lorenzo
--- NOTE | 2024-05-02 04:11 | NUR ---
awake, more alert and oriented. stated "I have not had anything to eat for about 3 days, I was going hungry so I came in". no c/o pain or n/v at this time. jello and crackers given on requests. moidt non productive cough present. cooperative with second assessment. In bed Bed alarm inplace
--- NOTE | 2024-05-02 04:33 | NUR ---
AWAKE, REPOSITIONS SELF IN BED. ON ROOM AIR. C/O H/A AND BACK PAIN. MEDICATED WITH MORPHINE 4MG IV. TOLERATING JELLO AND LIQUIDS WELL, NO C/O N/V
--- NOTE | 2024-05-02 05:28 | NUR ---
CALL LIGHT ANSWERED. ICE WATER REFILLED. pt DENIES ADDITIONAL NEEDS. RESTING IN BED AWAKE.
--- NOTE | 2024-05-02 06:44 | NUR ---
Pt awake, up to BRP with 1SBYPA/FWW, voided tea colored urine, no bm. Back to bed, tolerated well. no c/o pain or n/v at this time. Bed alrm on
--- NOTE | 2024-05-02 07:35 | NUR ---
MORNING REPORT RECIEVED FROM FREYA KEN. PT LAYING IN BED ALERT, PT ASKED FOR THEIR GLASSES AND HAS NO OTHER NEEDS AT THIS TIME CALL LIGHT IN REACH.
--- NOTE | 2024-05-02 07:51 | NUR ---
PATIENT REPORTS NAUSEA, ATTEMPTED TO GIVE 4MG IV ZOFRAN BUT RIGHT HAND IV IN INFILTRATED.
[2024-05-02] MEDS ORDERED: FOLIC ACID 1 MG TAB PO SCH (08:00)
[2024-05-02] MEDS ORDERED: THIAMINE HCL 100 MG TAB PO SCH (08:00)
--- NOTE | 2024-05-02 08:12 | NUR ---
PATIENT IN CHAIR AT THIS TIME. TEST OPERATOR WENT INTO PATIENT ROOM FOR HOURLY ROUNDS. TEST OPERATOR ASSISTED PATIENT TO BATHROOM AND THEN TO THE CHAIR. CALL LIGHT WITHIN REACH, NO FURTHER NEEDS AT THIS TIME.
[2024-05-02] MEDS ORDERED: buPROPion HCL 75 MG TAB PO SCH ×2 (09:00→21:00)
[2024-05-02] MEDS ORDERED: SPIRONOLACTONE 25 MG TAB PO SCH (09:00)
[2024-05-02] MEDS ORDERED: LACTULOSE 20 GM/30 ML CUP PO SCH ×2 (09:00→13:00)
[2024-05-02] MEDS ORDERED: Rifaximin 550 MG TAB PO SCH ×2 (09:00→21:00)
[2024-05-02] MEDS ORDERED: PANTOPRAZOLE SODIUM 40 MG TABEC PO SCH (09:00)
--- NOTE | 2024-05-02 09:17 | NUR ---
PATIENT IN CHAIR AT THIS TIME. PLASTIC SURGEON CHARTED VITALS AND I&O'S. CALL LIGHT WITHIN REACH, NO FURTHER NEEDS AT THIS TIME.
--- NOTE | 2024-05-02 09:40 | NUR ---
PT SITTING UP IN CHAIR, PT REPORTS NO COCNERNS AT THIS TIME, PT IS GETTING READY TO SHOWER WITH ASSISTANCE FROM [employer]LE [employer]ER. PT LEFT IN ROOM WITH TILE PICKER.
--- NOTE | 2024-05-02 10:25 | NUR ---
PATIENT IN CHAIR AT THIS TIME. DEHORNER REMOVED PATIETNS IV AT RN'S REQUEST. DEHORNER ASSISTED PATIENT INTO SHOWER, PATIENT WAS ABLE TO SHOWER INDEPENDENTLY. AFTER SHOWER DEHORNER ASSISTED PATIENT BACKT TO CHAIR. CALL LIGHT WITHIN REACH, NO FURTHER NEEDS AT THIS TIME.
--- NOTE | 2024-05-02 10:31 | NUR ---
PT RECIEVED SHOWER WITH ASSISTANCE FROM AMADA. PT HAS QUESTIONS ABOUT WHEN THEY WOULD BE ABLE TO GO HOME, PT WAS INFORMED AND WAS AGREEABLE. PT HAS NO OTHER CONCERNS AT THIS TIME CALL LIGHT IN REACH.
--- NOTE | 2024-05-02 11:14 | NUR ---
PATIENT IN CHAIR AT THIS TIME. FIELD SUPERVISOR ASSISTED PATIENT IN WALKING 3 LAPS AROUND HALLS. CALL LIGHT WITHIN REACH, NO FURTHER NEEDS AT THIS TIME.
--- NOTE | 2024-05-02 11:17 | NUR ---
PT RETURNED TO CHAIR AFTER AMBULATION AROUND MED/SURG UNIT. PT HAS NO CONCERNS AT THIS TIME CALL LIGHT IN REACH.
[2024-05-02] MEDS ORDERED: ZOLPIDEM TARTRATE 5 MG TAB PO PRN (11:45)
--- NOTE | 2024-05-02 11:56 | NUR ---
PT WAS NOTIFIEED THAT THEIR DIET WAS CHANGED TO REGULAR DIET. PT WAS AGREEABLE AND HAS NO CONCERNS AT THIS TIME CALL LIGHT IN REACH.
[2024-05-02] MEDS ORDERED: PHARMACY RENAL DOSE ADJUSTMENT 1 DOSE MISC PO SCH (12:00)
--- NOTE | 2024-05-02 12:32 | NUR ---
PT NOT AVAILABLE FOR VISIT. PROVIDED PRAYER.
--- NOTE | 2024-05-02 13:08 | NUR ---
PATIENT IN CHAIR AT THIS TIME. FORM SETTER METAL ROAD FORMS CHARTED VITALS AND I&O'S. CALL LIGHT WITHIN REACH, NO FURTHER NEEDS AT THIS TIME.
--- NOTE | 2024-05-02 13:38 | NUR ---
Spoke with Liv. She cont to live in her apartment through [facility]. Apartment is wc accessable and bathroom has been ada remodeled. She has a wc. She had financial eval with [facility] for termination clerk medicaid and states she will have a physical eval in 3-4 weeks. Medicaid is closed today due to the holiday. Cale denies needs. She does state she is getting tired of not feeling well and feels like she is getting closer to the "end". I asked if she had let her family know her wishes and she has not. She said her sister Parisa tired to help her complete a POLST or advance directive, but Liv could never finish. I asked if she would like to complete a POLST today and she would. Form completed DNR/DNI Limited interventions and no feeding tube. Form was signed by Dr. Fry. Copy faxed to the registry, copy to medical records, and original placed on the chart to go home with pt. She listed her sister Parisa as her medical contact. Pt denies other needs. States she is feeling much clearer and will go home when medically cleared for dc.
--- NOTE | 2024-05-02 14:45 | NUR ---
UR CLINICAL REVIEW: 2 MN FOR VERSALUS- PER THIS MEDICAL BILLING SPECIALIST MEETS OBS CRITERIA FOR HEPATIC ENCEPHALOPATHY MEDICARE OBS 05/02/24 @ 1140 ORDER MATCHES REG NO AUTH REQUIRED PER MEDICARE GUIDELINES DISCHARGE TO HOME WHEN STABLE. POSSIBLE DC IN 24 HOURS. 05/03/24
--- NOTE | 2024-05-02 14:59 | NUR ---
PT SITTING UP IN CHAIR, PT REQUESTED JELLO SINCE THEY ARE NOW ON REGULAR DIET PER MD ORDER, PT HAS NO CURRENT CONCERNS AT THIS TIME CALL LIGHT IN REACH.
[2024-05-02] MEDS ORDERED: ONDANSETRON 4 MG TAB ODT SL PRN (16:00)
--- NOTE | 2024-05-02 16:18 | NUR ---
PT HAS HAD 3 BM IN THE LAST 2 HOURS. PT WAS HOOKED BACK UP TO INTERMITENT WALL SUCTION ON THEIR NG TUBE. PT HAS NO PAIN AND STATES " HE IS FEELING ALOT BETTER". PT HAS CALL LIGHT IN REACH.
--- NOTE | 2024-05-02 16:48 | NUR ---
PT SITTING IN CHAIR, PT REPORTS NO PAIN OR NAUSEA AT THIS TIME. PT HAS NO CONCERNS AT THIS TIME CALL LIGHT IN REACH.
--- NOTE | 2024-05-02 17:43 | NUR ---
PT RETURNED FROM RESTROOM AND DID HAVE A LARGE BOWEL X1. PT RETURNED TO BED AND HAS NO CONCERNS AT THIS TIME CALL LIGHT IN REACH.
--- NOTE | 2024-05-02 18:03 | NUR ---
PATIENT IN BED AT THIS TIME. SOD CUTTER CHARTED VITALS AND I&O'S. CALL LIGHT WITHIN REACH, NO FURTHER NEEDS AT THIS TIME.
--- NOTE | 2024-05-02 18:07 | NUR ---
PT SITTING IN BED WATCHING TV, PT HAS NO CONCERNS AT THIS TIME, PT HAS CALL LIGHT IN REACH.
--- NOTE | 2024-05-02 19:37 | NUR ---
Resting, eyes closed, no s/sx distress
--- NOTE | 2024-05-02 19:55 | NUR ---
PATIENT CALLED TO USE THE BATHROOM. SBA. PATIENT IS BACK IN BED. PATIENT VOIDED 475ML YELLOW URINE. NO OTHER NEEDS AT THIS TIME.
--- NOTE | 2024-05-02 21:03 | NUR ---
ALERT AND ORIENTED, PLEASANT. ON ROOM AIR, CLEAR LUNGS, ABD SOFT, ELENO, LBM TODAY. NO IV, BRUISING ARMS IN DIFFERENT STAGES OF HEALING, AWARE OF UA SAMPLE NEEDED. EDEMA TO ANKLES AND FEET 1+, ELEVATED. TOOK LACTULOSE AND MEDS W/O PROBLEMS. JAUNDICED SKIN
--- NOTE | 2024-05-02 22:08 | NUR ---
resting, eyes closed, no c/o pain. aware of need for UA sample. On room air. Alarms on for safety.
--- NOTE | 2024-05-02 22:30 | NUR ---
PATIENT UP TO THE BATHROOM. SBA. PATIENT HAD SMALL BM. PATIENT VOIDED 500ML YELLOW URINE. URINE SAMPLE COLLECTED AND SENT TO THE LABORATORY. PATIENT IS BACK IN BED. PATIENT FINISHED HER LACTULOSE. MARIA DE JESUS RODRIGUEZ PROVIDED PER PATIENT. ICE WATER REFILLED. SCD'S ON. BED ALARM ON FOR SAFETY.
[2024-05-02 22:43] LABS: BILIRUBIN, URINE NEGATIVE (negative); BLOOD/HGB, URINE NEGATIVE (Negative); KETONE, URINE NEGATIVE (Negative); LEUK ESTERASE, URINE NEGATIVE (negative); NITRITE, URINE NEGATIVE (negative)
--- NOTE | 2024-05-02 23:59 | NUR ---
JUDICIAL REGISTRAR BROUGHT BRIA TO PT.
--- NOTE | 2024-05-03 00:58 | NUR ---
resting, eyes closed, no s/sx distress, has had several bms, and UA sample was sent to lab.
--- NOTE | 2024-05-03 03:11 | NUR ---
Resting, eyes closed, no s/sx distress. On room air, fluids and call light at hands reach. Has had several loose stools, on Lactulose. No c/o pain. Has requested multiple snacks items and pop.
--- NOTE | 2024-05-03 03:48 | NUR ---
IT LEAD WALKED WITH PT ON THE FLOOR. PT DID A LARGE LOOP AND WENT BACK TO BED. IT LEAD LEFT THE PT WITH THE BED ALARM ON, CALL LIGHT WITHIN REACH, AND SCD'S RECONNECTED AND TURNED ON.
[2024-05-03 05:05] VITALS: BP 137/64
[2024-05-03 05:23] LABS: BASOPHILS 0.6 % (0-2); EOSINOPHILS 6.1 % (0-6); HEMATOCRIT 30.5 % (35.0-50.0); HEMOGLOBIN 10.5 g/dL (12.0-18.0); LYMPHOCYTES 25.7 % (24-44); MCH 31.4 (27-36); MCHC 34.5 g/dl (30-36); MONOCYTES 9.7 % (0-12); NEUTROPHILS 57.9 % (39-80); PLATELET COUNT 72 K/uL (140-440); RBC 3.35 M/ul (4.3-5.7); RDW 15.8 (10.5-15.0)
[2024-05-03 05:33] LABS: BUN/CREATININE RATIO 9.94 (6.0-28.6); CALCIUM 8.3 mg/dL (8.5-10.1); CREATININE, SERUM 1.71 mg/dL (0.55-1.02); MAGNESIUM 1.7 mg/dL (1.8-2.4)
[2024-05-03 05:53] VITALS: BP 137/64
--- NOTE | 2024-05-03 07:25 | NUR ---
MORNING REPORT RECIEVED FROM FREYA KEN. PT LAYING IN BED AWAKE AND ALERT. PT HAS NO CURRENT CONCERNS AT THIS TIME PT HAS CALL LIGHT IN REACH.
--- NOTE | 2024-05-03 08:00 | NUR ---
Notified by staff Liv would like a visit. Pt concerned as she does not believe she has an appt for a home eval from [facility]. I called and spoke with Cielo Hill and pt is scheduled for 05/10/24 at 2pm to be seen by Chantelle. Pt is updated. She is very frustrated when I returned to her room. She has been attempting to schedule an appt with [facility]. They are in a meeting and texted her. I was able to text them on her phone and ask if they would schedule a fu appt and call her with the time. I let her know her appt. with [facility] is on her discharge instructions. I asked if she would like me to call Fatemeh or her sister, Parisa with appts. Liv declines as she is frustrated and states she feels annoyed by [facility] and her family today. She would like a taxi ride home. Updated chrystal Ashford RN, pt needs a taxi home.
--- NOTE | 2024-05-03 08:08 | NUR ---
PATIENT IN CHAIR AT THIS TIME. PAID INTERN WENT INTO PATIENTS ROOM FOR HOURLY ROUNDS. PAID INTERN ASSISTED PATIENT FROM BED TO CHAIR. CALL LIGHT WITHIN REACH, NO FURTHER NEEDS AT THIS TIME.
[2024-05-03] MEDS ORDERED: MAGNESIUM OXIDE 400 MG TABLET PO ONE (09:00)
[2024-05-03] MEDS ORDERED: PANTOPRAZOLE SODIUM 40 MG TABEC PO SCH (09:00)
[2024-05-03] MEDS ORDERED: FOLIC ACID 1 MG TAB PO SCH (09:00)
[2024-05-03 09:03] VITALS: BP 130/72
--- NOTE | 2024-05-03 09:14 | NUR ---
UR CONCURRENT REVIEW: 2 MN FOR VERSALUS- PER PURCHASING ENGINEER MEETS OBS FOR ENCEPHALOPATHY MEDICARE OBS 05/01/24 @ 1939 NO AUTH REQUIRED PER MEDICARE GUIDELINES PER IDR MEETING PATIENT TO DISCHARGE TODAY
[2024-05-04] MEDS ORDERED: FERROUS SULFATE 325 MG TAB PO SCH (09:00)
== END 2024-05-03 09:17 | disposition home or self-care (01) ==
LOC: ED 19:38 → MS 19:39
PROVIDERS: Family Medicine; ADMIT Student in an Organized Health Care Education/Training Program; ATTEND Student in an Organized Health Care Education/Training Program
DX: K76.82 Hepatic encephalopathy (principal); K70.31 Alcoholic cirrhosis of liver with ascites; K59.00 Constipation, unspecified; F39 Unspecified mood [affective] disorder; D50.9 Iron deficiency anemia, unspecified; K21.9 Gastro-esophageal reflux disease without esophagitis; G47.00 Insomnia, unspecified; I10 Essential (primary) hypertension; E11.9 Type 2 diabetes mellitus without complications; E78.5 Hyperlipidemia, unspecified; J44.9 Chronic obstructive pulmonary disease, unspecified; Z79.899 Other long term (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
CPT/HCPCS: 36415; 74176; 80048; 80053; 81003; 82140; 83735; 85025; 85610; 96361; 96374; 96375; 97161; 97165; 99285-25; A9270; G0378; J1790; J2270; J2405; J7040

== ENCOUNTER 2024-05-08 17:16 | Emergency (ER) | payer MEDICARE, MEDICAID, OTHER ==
[2024-05-08] MEDS ORDERED: HYDROmorphone HCL 1 MG/ML SYR IV PRN (17:30)
[2024-05-08] MEDS ORDERED: SODIUM CHLORIDE 0.9% 1,000 ML IV ONE (17:30)
[2024-05-08] MEDS ORDERED: ondansetron HCL 4 MG/2 ML VIAL IV ONE (17:30)
[2024-05-08] MEDS ORDERED: droPERidol 5 MG/2 ML VIAL IV ONE (17:30)
[2024-05-08 17:41] LABS: BASOPHILS 0.8 % (0-2); EOSINOPHILS 3.9 % (0-6); HEMATOCRIT 34.7 % (35.0-50.0); HEMOGLOBIN 12.2 g/dL (12.0-18.0); LYMPHOCYTES 26.4 % (24-44); MCV 91.5 fl (81-99); MONOCYTES 12.6 % (0-12); NEUTROPHILS 56.3 % (39-80); PLATELET COUNT 87 K/uL (140-440)
[2024-05-08 17:57] LABS: ANION GAP 16.1 (7-21); BILIRUBIN, TOTAL 2.7 mg/dL (0.2-1.0); BUN/CREATININE RATIO 12.23 (6.0-28.6); CALCIUM 9.1 mg/dL (8.5-10.1); CREATININE, SERUM 2.37 mg/dL (0.55-1.02); POTASSIUM 4.1 mmol/L (3.5-5.1)
[2024-05-08] MEDS ORDERED: DICYCLOMINE HCL20 MG PO (19:09)
[2024-05-08] MEDS ORDERED: DICYCLOMINE HCL 10 MG HOME.PACK ONE (19:10)
[2024-05-08] MEDS ORDERED: DICYCLOMINE HCL 10 MG CAP PO ONE (19:15)
[2024-05-08] MEDS ORDERED: DICYCLOMINE HCL 10 MG HOME.PACK PO ONE (19:15)
[2024-05-08 19:35] VITALS: BP 135/69
== END 2024-05-08 19:35 | disposition home or self-care (01) ==
LOC: ED 17:16
PROVIDERS: Emergency Medicine
DX: R10.30 Lower abdominal pain, unspecified (principal); K74.60 Unspecified cirrhosis of liver; E11.9 Type 2 diabetes mellitus without complications; I10 Essential (primary) hypertension; E78.5 Hyperlipidemia, unspecified; J44.89 Other specified chronic obstructive pulmonary disease; E66.9 Obesity, unspecified; Z87.891 Personal history of nicotine dependence; Z79.899 Other long term (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
CPT/HCPCS: 36415; 80053; 83690; 85025; 96374; 96375; 99284-25; J1171; J1790; J2405; J7030

== ENCOUNTER 2024-05-10 17:20 | Emergency (ER) | payer MEDICARE, MEDICAID, OTHER ==
[~2024-05-10] VITALS: Ht 172.7 cm; Wt 101.2 kg
[~2024-05-10 17:20] MED LIST changes: +DICYCLOMINE HCL20 MG PO
[2024-05-10] MEDS ORDERED: SODIUM CHLORIDE 0.9% 1,000 ML IV ONE (17:45)
[2024-05-10] MEDS ORDERED: PANTOPRAZOLE SODIUM 40 MG/10 ML VIAL IV ONE (17:45)
[2024-05-10] MEDS ORDERED: droPERidol 5 MG/2 ML VIAL IV ONE (17:45)
[2024-05-10 18:09] LABS: ALBUMIN 3.2 g/dL (3.4-5.0); ALBUMIN/GLOBULIN RATIO 1.07 (1.1-2.4); ANION GAP 17.1 (7-21); BILIRUBIN, TOTAL 3.7 mg/dL (0.2-1.0); BUN/CREATININE RATIO 12.8 (6.0-28.6); CALCIUM 9.5 mg/dL (8.5-10.1); CREATININE, SERUM 2.42 mg/dL (0.55-1.02); POTASSIUM 4.1 mmol/L (3.5-5.1); PROTEIN, TOTAL 6.2 g/dL (6.4-8.2)
[2024-05-10] MEDS ORDERED: diphenhydrAMINE HCL 50 MG/ML VIAL IV ONE (19:00)
[2024-05-10 20:37] LABS: BASOPHILS 0.9 % (0-2); HEMATOCRIT 35.9 % (35.0-50.0); HEMOGLOBIN 12.4 g/dL (12.0-18.0); LYMPHOCYTES 22.7 % (24-44); MCH 31.8 (27-36); MCHC 34.6 g/dl (30-36); MONOCYTES 13.8 % (0-12); NEUTROPHILS 60.6 % (39-80); PLATELET COUNT 91 K/uL (140-440); RDW 16.2 (10.5-15.0)
[2024-05-10] MEDS ORDERED: LACTULOSE 20 GM/30 ML CUP PO ONE (20:45)
[2024-05-10] MEDS ORDERED: METOCLOPRAMIDE HCL 10 MG/2 ML SDV IV ONE (21:15)
[2024-05-10 22:00] LABS: BILIRUBIN, URINE NEGATIVE (negative); BLOOD/HGB, URINE NEGATIVE (Negative); KETONE, URINE NEGATIVE (Negative); LEUK ESTERASE, URINE NEGATIVE (negative); NITRITE, URINE NEGATIVE (negative); PH, URINE 6.5 (5-7)
[2024-05-10] MEDS ORDERED: MAGNESIUM CITRATE 300 ML BTL PO ONE (23:45)
[2024-05-11 00:13] VITALS: BP 144/75
== END 2024-05-11 00:10 | disposition home or self-care (01) ==
LOC: ED 17:20
PROVIDERS: Emergency Medicine
DX: K59.00 Constipation, unspecified (principal); R10.9 Unspecified abdominal pain; E11.9 Type 2 diabetes mellitus without complications; I10 Essential (primary) hypertension; E78.5 Hyperlipidemia, unspecified; J44.89 Other specified chronic obstructive pulmonary disease; Z79.899 Other long term (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; Z87.891 Personal history of nicotine dependence
CPT/HCPCS: 36415; 51701; 74176; 80053; 81003; 82140; 83690; 85025; 99284-25; J1200; J1790; J2470; J2765; J7030

== ENCOUNTER 2024-05-13 17:43 | Inpatient (IN) | payer MEDICARE, MEDICAID, OTHER ==
[~2024-05-13] VITALS: Ht 172.7 cm; Wt 99.6 kg
[2024-05-13 18:04] LABS: HEMOGLOBIN 12.4 g/dL (12.0-18.0)
[2024-05-13 18:06] LABS: BASOPHILS 1.9 % (0-2); EOSINOPHILS 3.4 % (0-6); HEMATOCRIT 35.5 % (35.0-50.0); LYMPHOCYTES 25.3 % (24-44); MCH 31.8 (27-36); MONOCYTES 11.2 % (0-12); NEUTROPHILS 58.2 % (39-80); PLATELET COUNT 88 K/uL (140-440)
[2024-05-13] MEDS ORDERED: LACTULOSE 20 GM/30 ML CUP PO ONE ×2 (18:15→20:00)
[2024-05-13] MEDS ORDERED: SODIUM CHLORIDE 0.9% 1,000 ML IV ONE (18:15)
[2024-05-13] MEDS ORDERED: ondansetron HCL 4 MG/2 ML VIAL IV PRN ×2 (18:15→19:15)
[2024-05-13] MEDS ORDERED: PANTOPRAZOLE SODIUM 40 MG/10 ML VIAL IV ONE (18:15)
[2024-05-13 18:19] LABS: ALBUMIN 3.3 g/dL (3.4-5.0); ALBUMIN/GLOBULIN RATIO 1.03 (1.1-2.4); ANION GAP 18.7 (7-21); BILIRUBIN, TOTAL 2.5 mg/dL (0.2-1.0); BUN/CREATININE RATIO 11.01 (6.0-28.6); CALCIUM 8.9 mg/dL (8.5-10.1); CREATININE, SERUM 2.36 mg/dL (0.55-1.02); POTASSIUM 4.7 mmol/L (3.5-5.1); PROTEIN, TOTAL 6.5 g/dL (6.4-8.2)
[2024-05-13] MEDS ORDERED: PROCHLORPERAZINE EDISYLATE 10 MG/2 ML VIAL IV PRN (19:15)
[2024-05-13] MEDS ORDERED: DEXTROSE 50% 50 ML SYR IV PRN ×2 (19:15)
[2024-05-13] MEDS ORDERED: IBLOOD GLUCOSE TEST STRIP 1 EA TEST XX PRN (19:15)
[2024-05-13] MEDS ORDERED: GLUCAGON,HUMAN RECOMBINANT 1 MG/ML VIAL SUB-Q PRN (19:15)
[2024-05-13] MEDS ORDERED: DEXTROSE 5% 1,000 ML IV PRN (19:15)
[2024-05-13] MEDS ORDERED: LACTATED RINGER'S 1,000 ML IV SCH (19:15)
[2024-05-13] MEDS ORDERED: ACETAMINOPHEN 325 MG TAB PO PRN (19:15)
--- NOTE | 2024-05-13 20:40 | NUR ---
PT RECEIVED FROM AYAKA QUINONES RN. ARRIVED VIA GURNEY. REQUIRED MAX ASSIST FOR TRANSFER TO HOSPITAL BED R/T SOMNOLENCE. MINIMAL VERBAL INTERACTION AND MINIMALLY FOLLOWS COMMANDS. PATEL RN IN TO DO ADMISSION QUESTIONS. FAMILY AT BEDSIDE.
[2024-05-13 20:59] VITALS: BP 154/52
[2024-05-13] MEDS ORDERED: IBLOOD GLUCOSE TEST STRIP 1 EA TEST VI SCH (21:00)
[2024-05-13] MEDS ORDERED: INSULIN LISPRO 100 UNIT/ML ML SUB-Q SCH (21:00)
[2024-05-13 21:20] VITALS: BP 154/52
--- NOTE | 2024-05-13 21:30 | NUR ---
PT CONTINUES TO BE MOSTLY SOMNOLENT. OCCASSIONAL MOANS. DOES NOT FULLY FOLLOW COMMANDS. MINIMAL VERBAL RESPONSES. DOES NOT APPEAR TO BE IN PAIN. PERRLA. LSC DIM T/O. HRR. BT HYPERACTIVE X 4. NEW DISPOSIBLE BRIEF PLACED. SKIN CHECK DONE W/ FREYA SWEENEY-SKIN INTACT. RAC IV NOW HAS LR @ 100 INFUSING PER EMAR. BEDSIDE SWALLOW EVAL NOT COMPLETED R/T DECREASED LOC. SCD'S PLACED PER ORDER. CALL LIGHT WITHIN REACH.
--- NOTE | 2024-05-13 23:43 | NUR ---
PT AWAKE, CONFUSED. REORIENTED X 3, PT DOES NOT REMEMBER COMING TO HOSPITAL OR KNOW WHY SHE IS HERE. TV REMOTE GIVEN PER REQUEST.
[2024-05-13 23:46] LABS: BILIRUBIN, URINE NEGATIVE (negative); BLOOD/HGB, URINE NEGATIVE (Negative); KETONE, URINE NEGATIVE (Negative); LEUK ESTERASE, URINE NEGATIVE (negative); NITRITE, URINE NEGATIVE (negative); PH, URINE 6.5 (5-7)
--- NOTE | 2024-05-13 23:46 | NUR ---
CALL LIGHT ANSWERED. PT NEEDED TO USE BATHROOM. THIS AUDIO VISUAL COORDINATOR AND AMADA BISHOP 2PA PT TO BS. URINE SAMPLE COLLECTED AND SENT TO LAB. PT ASSISTED BACK TO BED. PT CONFUSED AND ASKED "WHY AM I HERE?" RN NOTIFED AND IN ROOM.
[2024-05-14] VITALS (8 sets, daily range): BP systolic 126–152; BP diastolic 53–70
--- NOTE | 2024-05-14 01:06 | NUR ---
PT SLEEPING SOUNDLY. IVF INFUSING. CALL LIGHT WITHIN REACH.
--- NOTE | 2024-05-14 01:34 | NUR ---
NARROW GAUGE ENGINEER OBTAINED VITALS AND I&O. PT STATES NO NEEDS AT THIS TIME. CALL LIGHT WITHIN REACH AND BED ALARM ON.
--- NOTE | 2024-05-14 04:59 | NUR ---
PT AWAKE, SLIGHTLY CONFUSED. REORIENTED. CALL LIGHT WITHIN REACH.
[2024-05-14 05:06] LABS: EOSINOPHILS 3.9 % (0-6); HEMATOCRIT 30.9 % (35.0-50.0); HEMOGLOBIN 10.8 g/dL (12.0-18.0); LYMPHOCYTES 28.7 % (24-44); MCH 31.6 (27-36); MCHC 34.9 g/dl (30-36); MCV 90.4 fl (81-99); NEUTROPHILS 55.4 % (39-80); PLATELET COUNT 65 K/uL (140-440); RBC 3.42 M/ul (4.3-5.7); RDW 15.8 (10.5-15.0)
[2024-05-14 05:15] LABS: INR 1.56 (0.80-1.30); PROTIME 18.6 Sec (11.2-14.2)
[2024-05-14 05:22] LABS: ALBUMIN 2.5 g/dL (3.4-5.0); ALBUMIN/GLOBULIN RATIO 0.96 (1.1-2.4); ANION GAP 15.7 (7-21); BILIRUBIN, TOTAL 2.8 mg/dL (0.2-1.0); BUN/CREATININE RATIO 11.82 (6.0-28.6); CALCIUM 8.4 mg/dL (8.5-10.1); CREATININE, SERUM 2.03 mg/dL (0.55-1.02); MAGNESIUM 2.1 mg/dL (1.8-2.4); PHOSPHORUS, INORGANIC 3.1 mg/dL (2.5-4.9); POTASSIUM 4.7 mmol/L (3.5-5.1); PROTEIN, TOTAL 5.1 g/dL (6.4-8.2)
[2024-05-14] MEDS ORDERED: bisacodyL 10 MG SUPP PR SCH (06:00)
--- NOTE | 2024-05-14 07:52 | NUR ---
RECIEVED BEDSIDE REPORT FROM FREYA URBANO. PT IS AWAKE AND ORIENTED ONLY TO SELF. SHE IS REQUESTING THE TV REMOTE, BUT IS UNAWARE OF HOW TO USE IT. ASKS THE SAME QUESTION REPEATEDLY. RN CLEANED SPILLED WATER AND REPLACED WATER. NO OTHER NEEDS AT THIS TIME.
--- NOTE | 2024-05-14 08:50 | NUR ---
STAYED WITH PATIENT ON THE COMODE AFTER GANG PLANK WORKMAN COMPLETED HER TASKS. PT WAS RESTLESS. SHE WAS ABLE TO STATE THAT SHE WAS ANXIOUS, BUT UNABLE TO STATE WHAT SHE TOOK AT HOME FOR ANXIETY. SHE ASKED REPEATEDLY WHAT SHE WAS DOING OR WHERE SHE WAS. SHE WAS UNABLE TO HAVE A BOWEL MOVEMENT AND ONLY DRIBBLED A SMALL AMOUNT. AFTER SITTING ON THE BSC FOR 20 MINUTES, SHE WENT BACK TO BED. RN SET THE BED ALRAM. NOTIFIED THE DYE COLORIST DYER THAT SHE WAS "WAKING UP" AND BECOMING MORE ACTIVE. ADVISED THE BED ALARM IS SET AND THERE WAS NO BM. DYE COLORIST DYER PLACED FALL MATS.
[2024-05-14] MEDS ORDERED: PANTOPRAZOLE SODIUM 40 MG TABEC PO SCH (09:00)
[2024-05-14] MEDS ORDERED: LACTULOSE 20 GM/30 ML CUP PO SCH (09:00)
[2024-05-14] MEDS ORDERED: HYDROmorphone HCL 2 MG TAB PO PRN (09:15)
--- NOTE | 2024-05-14 09:24 | NUR ---
PATIENT IN BED AT THIS TIME. AUTO FLEET MANAGER CHARTED VITALS AND I&O'S. CALL LIGHT WITHIN REACH, NO FURTHER NEEDS AT THIS TIME.
--- NOTE | 2024-05-14 11:35 | NUR ---
PT HAS FAMILY AT BEDSIDE. SHE IS UP TO BSC. ONE SMALL SMEAR OF BM. MD REQUESTED PAIN MED FOR HEADACHE, GIVEN. PT HAS HAD BOTTLE OF WATER AND CUP OF JUICE. SHE IS STILL COMPLAINING OF FEELING THE NEED TO VOID, BUT CAN'T. ENCOURAGED FLUIDS.
[2024-05-14] MEDS ORDERED: PHARMACY RENAL DOSE ADJUSTMENT 1 DOSE MISC PO SCH (12:00)
--- NOTE | 2024-05-14 12:32 | NUR ---
PATIENT IN CHAIR AT THIS TIME. SENIOR MECHANICAL DESIGNER CHANGED PATIENTS LINENS AT THIS TIME, SENIOR MECHANICAL DESIGNER MOVED PATIENT TO COMMODE AND THEN BACK TO HER CHAIR. CALL LIGHT WITHIN REACH, NO FURTHER NEEDS AT THIS TIME.
--- NOTE | 2024-05-14 13:17 | NUR ---
RN IN ROOM TO ADDRESS IV PUMP ALARM - PT RESTING IN CHAIR, DIFFICULTY EXPRESSING THROUGHTS WITH SLURRED SPEECH NOTED. PT REQUESTS TO USE BED SIDE COMMODE. STEADY OF FEET WITH PIVOT TRANSFER. UNABLE TO URNIATE OR MOVE BOWELS. BACK TO CHAIR WITH TABLE IN FRONT AND WARM BLANKETS. IV ZOFRAN ADMINISTERED PER PT REQUEST/COMPLAINT OF NAUSEA. CALL LIGHT IN LAP.
--- NOTE | 2024-05-14 14:45 | NUR ---
UPDATED ON PT WORSENING LOC AND INABILITY TO FOLLOW DIRECTIONS. PT REPEATIDLY ASKING TO GO TO THE BATHROOM. BLADDER SCAN SHOWED >1500ML. TELEPHONE ORDERS RECEIVED FOR REYNOLDS CATH R/T RETENTION AND ALTERED LOC, ONE TIME SUPPOSITORY, UA TO LAB AND MOVE TO CLOSER ROOM BY RN STATION. MICHAELA NOTIFY ENTERED TO ESCILATE LACTULOSE TO RECTAL ADMINISTRATION IF NO BOWEL MOVEMENT BY 2100 DOSE.
[2024-05-14] MEDS ORDERED: LIDOCAINE 2% VISCOUS 6 ML SYR TOP ONE (15:00)
[2024-05-14] MEDS ORDERED: bisacodyL 10 MG SUPP PR ONE (15:00)
--- NOTE | 2024-05-14 15:00 | NUR ---
PT WAS CALLING OUT TO "I HAVE TO PEE, I HAVE TO PEE". SHE IS MUCH MORE CONFUSED, DIFFICULTY FINDING WORDS, SLURED SPEECH, NOT FOLLOWING DIRECTION. PT HAS SPENT MOST OF THE GETTING ON AND OFF THE COMODE. BLADDER SCAN SHOWED >1600ML. ORDER RECIEVED FOR REYNOLDS CATHETER, BISOCOYDL SUPPOSITORY ADMINISTERS. 1550ML OF CLEAR YELLOW URINE DRAINED VIA REYNOLDS. SAMPLE SENT TO LAB FOR UA. PT IS STILL C/O NEEDING TO PEE AND VERY RESTLESS. PLAN TO MOVE TO ROOM 111 ONCE CLEAN TO BE VISIBLE TO STAFF.
[2024-05-14 15:19] LABS: BILIRUBIN, URINE NEGATIVE (negative); BLOOD/HGB, URINE NEGATIVE (Negative); KETONE, URINE NEGATIVE (Negative); LEUK ESTERASE, URINE NEGATIVE (negative); NITRITE, URINE NEGATIVE (negative); PH, URINE 7.5 (5-7)
--- NOTE | 2024-05-14 15:59 | NUR ---
PATIENT IN BED AT THIS TIME. FLOOR TILING PROFESSIONAL WENT INTO PATIENTS ROOM TO TELL HER NOT TO PULL ON HER CATHETER. CALL LIGHT WITHIN REACH, NO FURTHER NEEDS.
--- NOTE | 2024-05-14 16:01 | NUR ---
PATIENT IN BED AT THIS TIME, CAD ENGINEER WENT TO GO PUT PATIENT BACK IN HER ROOM. CALL LIGHT WITHIN REACH, NO FURTHER NEEDS.
--- NOTE | 2024-05-14 16:03 | NUR ---
MANAGER OF FINANCIAL UPDATED ON PT'S WORSENING LOC AND FREQUENT ATTEMPTS TO EXIT BED. RECEIVING HELP FROM [facility].
--- NOTE | 2024-05-14 18:33 | NUR ---
PATIENT IN BED AT THIS TIME. RADIO JOURNALIST CHARTED VITALS AND I&O'S. CALL LIGHT WITHIN REACH, NO FURTHER NEEDS AT THIS TIME.
--- NOTE | 2024-05-14 20:00 | NUR ---
received report from peter anderson. ptr resting w/ sitter at bedside.
--- NOTE | 2024-05-14 20:00 | NUR ---
PT RESTING IN BED. AWAKENS EASILY BUT IS DROWSY. REQUIRES REPEATED CUES TO PARTICIPATE AND FOLLOW COMMANDS. ORIENTED X SELF ONLY. MOANS AND GROANS BUT DOES NOT VERBALIZE PAIN. PT BECAME VERY ANXIOUS AND IRRITABLE W/ REYNOLDS CARE. PRESEVERATING ON GETTING UP TO GO USE THE BATHROOM. REYNOLDS INPLACE DRAINING CLEAR EUGENIA URINE. LSC. HRR. BT HYPO. PT ASSISTED TO BSC W/ 2 ASSIST AND LOTS OF CUEING AND ENCOURAGEMENT. PT UNABLE TO HAVE BM. IV TO RAC INFUSING LR @ 100. SITTER TO REMAIN IN PLACE FOR SAFETY. PT HAS FAMILY VISITING AT BEDSIDE.
--- NOTE | 2024-05-14 21:29 | NUR ---
DR. GOLDBERG CALLED TO CLARIFY LACTULOSE ORDER CHANGE TO NV. CLARIFIED NV ORDER X 1 DOSE ONLY.
[2024-05-14] MEDS ORDERED: LACTULOSE 10 GM/15 ML ML PR ONE (21:30)
--- NOTE | 2024-05-14 21:39 | NUR ---
PT RESTING QUIETLY. SITTER AT BEDSIDE.
--- NOTE | 2024-05-14 22:16 | NUR ---
GA LACTULOSE ADMINISTERED VIA ENEMA BUCKET. PT TOLERATED FAIRLY WELL, NEEDED CUEING TO HOLD IT IN. PT CONTINUES TO PERSEVERATE ON NEEDING TO "PEE" AND IS STRAINING OUT LACTULOSE ENEMA. SITTER AT BEDSIDE.
--- NOTE | 2024-05-14 23:06 | NUR ---
PT UP ON BSC, OUTPUT AFTER LACTULOSE ENEMA MOSTLY LACTULOSE, NO REAL BM. PT CONTINUES TO BE VERY CONFUSED AND EMOTIONAL. REQUIRES CONTINUAL REDIRECTING AND CUEING.
[2024-05-15] VITALS (9 sets, daily range): BP systolic 136–151; BP diastolic 60–72
--- NOTE | 2024-05-15 00:06 | NUR ---
PT SLEEPING SOUNDLY, APPEARS COMFORTABLE. SITTER AT BEDSIDE.
--- NOTE | 2024-05-15 01:53 | NUR ---
PT SLEEPING SOUNDLY. SITTER AT BEDSIDE.
--- NOTE | 2024-05-15 04:00 | NUR ---
SLEEPING SOUNDLY. APPEARS COMFORTABLE. SITTER AT BEDSIDE.
--- NOTE | 2024-05-15 04:48 | NUR ---
NEW BAG IVF HUNG. PT AWAKENS, CONFUSED. CONTINUES TO PERSERVERATE ON NEED TO PEE. WHEN ENC TO GO AHEAD AND GO BECAUSE SHE HAS A CATHETER IN PLACE, STATES SHE DOESN'T HAVE TO GO. SITTER REMAINS AT BEDSIDE.
[2024-05-15 05:09] LABS: BASOPHILS 0.2 % (0-2); EOSINOPHILS 1.5 % (0-6); HEMATOCRIT 33.6 % (35.0-50.0); HEMOGLOBIN 11.6 g/dL (12.0-18.0); LYMPHOCYTES 13.7 % (24-44); MCH 31.4 (27-36); MCHC 34.5 g/dl (30-36); MONOCYTES 10.2 % (0-12); NEUTROPHILS 74.4 % (39-80); PLATELET COUNT 72 K/uL (140-440); RBC 3.69 M/ul (4.3-5.7); RDW 15.8 (10.5-15.0)
[2024-05-15 05:17] LABS: INR 1.52 (0.80-1.30); PROTIME 18.2 Sec (11.2-14.2)
[2024-05-15 05:22] LABS: ALBUMIN 2.7 g/dL (3.4-5.0); ALBUMIN/GLOBULIN RATIO 1.08 (1.1-2.4); ANION GAP 15.4 (7-21); BILIRUBIN, TOTAL 4.8 mg/dL (0.2-1.0); BUN/CREATININE RATIO 10.79 (6.0-28.6); CALCIUM 8.4 mg/dL (8.5-10.1); CREATININE, SERUM 1.76 mg/dL (0.55-1.02); MAGNESIUM 1.7 mg/dL (1.8-2.4); PHOSPHORUS, INORGANIC 3.2 mg/dL (2.5-4.9); POTASSIUM 4.4 mmol/L (3.5-5.1); PROTEIN, TOTAL 5.2 g/dL (6.4-8.2)
--- NOTE | 2024-05-15 05:40 | NUR ---
0600 SCHEDULED SUPP GIVEN, PT TOLERATED WELL. SITTER AT BEDSIDE.
--- NOTE | 2024-05-15 07:13 | NUR ---
REPORT RECEIVED FROM NIGHT SHIFTR RN PATIENT RESTING IN BED WITH EYES CLOSED RESPIRATIONSD EVEN AND UNLABORED. REYNOLDS CATHERTER DRAINAING YELLOW URINE. IV SITE PATIENT IVF INFUSING WNL. TOURS CAPTAIN AT BEDSIDE COMPLETEING US AT THIS TIME. INSTRUCTOR OF SPANISH REMAINS IN ROOM .
--- NOTE | 2024-05-15 07:34 | NUR ---
PATIENT GIVEN MARIA DE JESUS RODRIGUEZ PER REQUEST. PATIENT DRY HEAVING AND THEN VOMITING UP GINTGER RODRIGUEZ. ZOFRAN ADMINSTERED FOR NAUSEA.
--- NOTE | 2024-05-15 08:29 | NUR ---
PATIENT UP TO BSC. DIFFICULTY FOLLOWING CUES, NOTED MEDIUM BM. PATIENT UNABLE TO EAT BREAKFAST AT THIS TIME. PATIENT ATE SMALL AMOUNT OF FRUIT ON TRAY.
[2024-05-15] MEDS ORDERED: MAGNESIUM OXIDE 400 MG TABLET PO ONE (08:30)
[2024-05-15] MEDS ORDERED: Rifaximin 550 MG TAB PO SCH (09:00)
[2024-05-15] MEDS ORDERED: LACTULOSE 20 GM/30 ML CUP PO SCH (09:00)
[2024-05-15] MEDS ORDERED: LACTULOSE 20 GM/30 ML CUP PR SCH (09:00)
--- NOTE | 2024-05-15 09:45 | NUR ---
PATIENT WITH SMALL NOTED EMESIS SHORTLY AFTER ADMINSTRATION OF MEDICATIONS. EMESIS ORANGE IN COLOR, NO PILLS OBSERVED IN EMESIS. PATIENT WITH SITTER AT BEDSIDE.
--- NOTE | 2024-05-15 10:45 | NUR ---
PATIENT RESTING IN BED. VSS. REYNOLDS EMPTIED. EUGENIA URINE NOTED. CALL LIGHT CATHIE MARX, [facility].
--- NOTE | 2024-05-15 11:10 | NUR ---
VERBAL ORDER RECEIVED FROM MD FOR LACTULOSE OK 200GM ONCE. READ BACK VERIFICATION.
[2024-05-15] MEDS ORDERED: LACTULOSE 10 GM/15 ML ML PR ONE (11:30)
[2024-05-15] MEDS ORDERED: prednisoLONE 15 MG/5 ML ML PO SCH ×2 (12:12→12:28)
--- NOTE | 2024-05-15 12:12 | NUR ---
PATIENT RESTING IN BED WITH FAMILY AT BEDSIDE. NO NEEDS AT THIS TIME.
[2024-05-15] MEDS ORDERED: predniSONE 20 MG TAB PO SCH (12:29)
--- NOTE | 2024-05-15 13:37 | NUR ---
RN SPOKE WITH MD DISCUSSED CONCERNS WITH ENEMA AND PATIENT NOT BEING ABLE TO HOLD PREVIOUS EMEMA PATIENT WAS UNABLE TO HOLD. NEW ORDER FOR RECTAL TUBE. RECTAL TUBE INSERTED AND ENEMA ADMINISTERED PER MD ORDERS VIA RECTAL TUBE. PATIENT TOLLERATED WELL. SISTER IN ROOM WITH PATIENT AT THIS TIME. IV SITE REMAINS PATENT. CALL LIGHT WITHIN REACH.
--- NOTE | 2024-05-15 14:20 | NUR ---
PO MEDICATIONS ADMINSTERED. PATIENT SWALLOWED MEDICATIONS WITH NO ISSUES OR CONCERNS. NO FURTHER NEEDS CALL LIGHT WITHIN REACH. SISTER AT BEDSIDE.
--- NOTE | 2024-05-15 16:18 | NUR ---
Scheduled medication adminstered. Patient tollerated oral intake of medication at this time. No noted nausea or vomiting.
--- NOTE | 2024-05-15 16:21 | NUR ---
RECTAL TUBE REMAINS IN PLACE. NOTED SOME BROWN/FOX STOOL IN TUBE.
--- NOTE | 2024-05-15 17:45 | NUR ---
PATIENT RESTING IN BED WITH FAMILY AT BEDSIDE.
--- NOTE | 2024-05-15 18:13 | NUR ---
PATIENT CONTINUES WITH RECTAL TUBE. REYNOLDS REMAINS IN PLACE WITH EUGENIA COLORED URINE. PATIENT FAMILY AT BEDSIDE ASSISTING WITH DINNER. PRN FOR NAUSEA AND PAIN ADMINSTERED. IV SITE REMAINS PATENT. NO FURTHER NEEDS CALL LIGHT WITHIN REACH.
--- NOTE | 2024-05-15 19:53 | NUR ---
ADMITTING OFFICER BROUGHT PT MARIA DE JESUS RODRIGUEZ AND BEEF BROTH.
--- NOTE | 2024-05-15 21:56 | NUR ---
Pt assessed and medications given. Pt able to take oral lactulose without any complications. Rectal tube in place. Umanzor in place and draining well. IVF infusing per order. Pt able to drink water and eat without nausea. Pt's family staying with pt in room. Pt A&Ox2. Safety precautions maintained. Call light within reach. Will continue to monitor.
[2024-05-16] VITALS (8 sets, daily range): BP systolic 129–146; BP diastolic 54–66
[2024-05-16 05:31] LABS: BASOPHILS 0.3 % (0-2); EOSINOPHILS 1.2 % (0-6); HEMATOCRIT 31.7 % (35.0-50.0); LYMPHOCYTES 15.7 % (24-44); MCH 31.6 (27-36); MCHC 34.6 g/dl (30-36); MCV 91.4 fl (81-99); MONOCYTES 7.4 % (0-12); NEUTROPHILS 75.4 % (39-80); PLATELET COUNT 75 K/uL (140-440); RBC 3.47 M/ul (4.3-5.7); RDW 15.7 (10.5-15.0)
--- NOTE | 2024-05-16 05:36 | NUR ---
Pt rested some during the shift. Umanzor in place and draining well per gravity with good output noted. Rectal tube in place with lots of output noted. IVF infusing per order. VSS. Zofran and Compazine given for nausea. Pt able to tolerate PO lactulos. Pt's sister stayed at bedside throughout shift. Safety precautions maintained. Call light within reach. Will continue to monitor.
[2024-05-16 06:01] LABS: ALBUMIN 2.5 g/dL (3.4-5.0); ALBUMIN/GLOBULIN RATIO 0.96 (1.1-2.4); ANION GAP 15.4 (7-21); BILIRUBIN, TOTAL 3.3 mg/dL (0.2-1.0); BUN/CREATININE RATIO 10.65 (6.0-28.6); CALCIUM 8.7 mg/dL (8.5-10.1); CREATININE, SERUM 1.69 mg/dL (0.55-1.02); MAGNESIUM 1.8 mg/dL (1.8-2.4); POTASSIUM 4.4 mmol/L (3.5-5.1); PROTEIN, TOTAL 5.1 g/dL (6.4-8.2)
[2024-05-16 06:20] LABS: INR 1.63 (0.80-1.30); PROTIME 19.3 Sec (11.2-14.2)
--- NOTE | 2024-05-16 06:36 | NUR ---
Pt's rectal tube was removed as pt is able to get up to BSC. 200ml of stool in bag upon removal. Tube intact when removed. Pt tolerated it well. Will continue to monitor.
--- NOTE | 2024-05-16 07:15 | NUR ---
REPORT FROM ARYA SYED RN.
--- NOTE | 2024-05-16 07:51 | NUR ---
MORNING ASSESSMENT IS COMPLETE. PATIENT IS A/O X4 THIS MORNING. PATIENT REPORTS CONTINUED HEADACHE AND ENDORSES THAT ZOFRAN AT HOME WAS NOT WORKING TO HELP HER TOLERATE HER PO LACTULOSE. PATIENT'S SISTER IS IN ROOM TO VISIT. REYNOLDS IS DRAINING CLEAR YELLOW URINE. NO OTHER NEEDS AT THIS TIME.
--- NOTE | 2024-05-16 08:42 | NUR ---
PATIENT IN BED AT THIS TIME. ELECTRICAL MANAGER CHARTED HOURLY ROUNDS AND BLOODSUGAR. CALL LIGHT WITHIN REACH, NO FURTHER NEEDS AT THIS TIME.
--- NOTE | 2024-05-16 09:08 | NUR ---
10mg OF IV COMPAZINE GIVEN PRIOR TO MORNING MEDICATIONS.
--- NOTE | 2024-05-16 09:16 | NUR ---
VISITED DURING SPIRITUAL CARE ROUNDS TO INQUIRE IF SUPERVISOR CURING ROOM VISIT DESIRED. PT INDICATED YES. REQUEST RELAYED TO PRIESTS VIA NOTE IN SACRISTRY.
--- NOTE | 2024-05-16 09:43 | NUR ---
PATIENT IN BED AT THIS TIME. RIM TECHNICIAN CHARTED VITALS AND I&O'S. CALL LIGHT WITHIN REACH, NO FURTHER NEEDS AT THIS TIME.
--- NOTE | 2024-05-16 09:56 | NUR ---
UR CLINICAL REVIEW: 2 MN FOR VERSALUS-PER TECHNICAL APPLICATIONS SPECIALIST MEETS INPT FOR HEPATIC ENCEPHALOPATHY MEDICARE OBS TO INPT 05/15/24 @ 8021 ORDER MATCHES REG NO AUTH REQUIRED PER MEDICARE GUIDELINES DISCHARGE TO HOME WHEN STABLE
--- NOTE | 2024-05-16 10:20 | NUR ---
Spoke with Liv. She remains somewhat confused. She recognizes me and calls me by name. She is having difficulty remembering where she is. She believes Dr. Cuenca gave her a shot in her liver and she is at her sisters home in [place]. She cont. to live in [place] housing. Her cousin Fatemeh assists her. 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 Pt denies needs and asks I close her curtains. She is tired and wants to nap.
--- NOTE | 2024-05-16 10:40 | NUR ---
PATIENT IS RESTING IN BED, WARM BLANKETS PROVIDED. NO OTHER NEEDS AT THIS TIME.
--- NOTE | 2024-05-16 12:10 | NUR ---
ASSISTED PT WITH FOOD TRAY AND SITTING UP STRAIGHTER IN BED. BOYFRIEND IN ROOM.
--- NOTE | 2024-05-16 12:36 | NUR ---
PATIENT IN BED AT THIS TIME. RECREATION ATTENDANT CHARTED HOURLY ROUNDS, RECREATION ATTENDANT CHARTED BLOODSUGAR AT 1140. CALL LIGHT WITHIN REACH, NO FURTHER NEEDS AT THIS TIME.
--- NOTE | 2024-05-16 13:57 | NUR ---
PATIENT HAS NOT HAD BM TODAY. PATIENT GIVEN PARTIAL BED BATH AFTER LUNCH. GOWN CHANGED. PATIENT IS SALINE LOCKED.
--- NOTE | 2024-05-16 14:00 | NUR ---
PATIENT IN BED AT THIS TIME. AFFILIATE MARKETING SPECIALIST CHARTED VITALS AND I&O'S. CALL LIGHT WITHIN REACH, NO FURTHER NEEDS AT THIS TIME.
--- NOTE | 2024-05-16 14:31 | NUR ---
Spoke with Cielo Hill at [facility]. She states Chantelle came to the hospital today and saw Liv. Liv missed her scheduled appt with Chantelle last week and also missed her phone eval for finances with [facility]. They will reschedule. Cielo also asks I send clinical notes for review to [facility].
--- NOTE | 2024-05-16 15:26 | NUR ---
PATIENT IS VERY SLEEPY, GIVEN ORAL LACTULOSE AND PATIENT IMMEDIATELY WENT BACK TO SLEEP.
--- NOTE | 2024-05-16 18:15 | NUR ---
PATIENT IN BED AT THIS TIME. ASSEMBLY RIVETER CHARTED VITALS AND I&O'S. CALL LIGHT WITHIN REACH, NO FURTHER NEEDS AT THIS TIME.
--- NOTE | 2024-05-16 18:57 | NUR ---
PATIENT IS SLEEPING WITH REGULAR RESPIRATIONS.
--- NOTE | 2024-05-16 19:24 | NUR ---
Report received from day shift RN. Pt resting in bed. Pt's daughter at bedside. Safety precautions maintained. Call light within reach. Will conitnue to monitor.
--- NOTE | 2024-05-16 21:37 | NUR ---
Pt assessed and medication given. Umanzor in place and draining well per gravity, good output noted. VSS. BS 140, no insulin needed. Safety precautions maintained. Call light within reach. Will continue to monitor.
[2024-05-17] VITALS (10 sets, daily range): BP systolic 127–151; BP diastolic 55–73
--- NOTE | 2024-05-17 05:25 | NUR ---
Pt rested well during the shift. VSS. Umanzor in place and draining well per gravity. good output noted. Pt did not have a BM during shift. Safety precautions maintained. Call light within reach. Will continue to monitor.
[2024-05-17 05:46] LABS: BASOPHILS 0.6 % (0-2); EOSINOPHILS 1.7 % (0-6); HEMATOCRIT 30.5 % (35.0-50.0); HEMOGLOBIN 10.7 g/dL (12.0-18.0); LYMPHOCYTES 18.9 % (24-44); MCV 91.5 fl (81-99); MONOCYTES 12.5 % (0-12); NEUTROPHILS 66.3 % (39-80); PLATELET COUNT 67 K/uL (140-440); RBC 3.33 M/ul (4.3-5.7); RDW 15.7 (10.5-15.0)
[2024-05-17 05:57] LABS: INR 1.58 (0.80-1.30); PROTIME 18.8 Sec (11.2-14.2)
[2024-05-17 06:02] LABS: ALBUMIN 2.4 g/dL (3.4-5.0); ALBUMIN/GLOBULIN RATIO 0.96 (1.1-2.4); ANION GAP 13.1 (7-21); BILIRUBIN, TOTAL 2.2 mg/dL (0.2-1.0); BUN/CREATININE RATIO 12.57 (6.0-28.6); CALCIUM 8.7 mg/dL (8.5-10.1); CREATININE, SERUM 1.59 mg/dL (0.55-1.02); MAGNESIUM 1.8 mg/dL (1.8-2.4); POTASSIUM 4.1 mmol/L (3.5-5.1); PROTEIN, TOTAL 4.9 g/dL (6.4-8.2)
--- NOTE | 2024-05-17 06:24 | NUR ---
PATIENT UP AND WALKED THE HALLWAY X1 WITHOUT DIFFICULTY OF BREATHING AND WITH STEADY GAIT USING WALKER. PATIENT IS BACK IN BED. CALL LIGHT AND SIDE TABLE WITHIN REACH. ROOM PHONE ON HER HAND STATING SHE WILL ORDER HER BREAKFAST.
--- NOTE | 2024-05-17 06:32 | NUR ---
Pt up walking with walker in phillip with WELLNESS PROGRAM COORDINATOR. Pt tolerated it well with no distress noted. After walk, pt assisted back into bed. Safety precautions maintained. Call light within reach. Will continue to monitor.
--- NOTE | 2024-05-17 07:31 | NUR ---
PT MORNING REPORT RECIEVED FROM FREYA SYED. PT LAYING IN BED AWAKE AND ALERT, PT HAS NO CURRENT CONCERNS AT THIS TIME AND HAS CALL LIGHT IN REACH.
--- NOTE | 2024-05-17 08:50 | NUR ---
PT UP IN CHAIR, PT HAS CALL LIGHT IN REACH, PT HAS NO CURRENT CONCERNS AT THIS TIME. CALL LIGHT IN REACH.
--- NOTE | 2024-05-17 09:00 | NUR ---
PATIENT IN CHAIR AT THIS TIME. AUTOMOBILE PAINTER CHARTED HOURLY ROUNDS. CALL LIGHT WITHIN REACH, NO FURTHER NEEDS AT THIS TIME.
--- NOTE | 2024-05-17 09:20 | NUR ---
Spoke with Liv. She denies needs, plans on dc when cleared medically.
--- NOTE | 2024-05-17 09:47 | NUR ---
PATIENT IN CHAIR AT THIS TIME. LOGGING EQUIPMENT MECHANIC CHARTED VITALS AND I&O'S. CALL LIGHT WITHIN REACH, NO FURHER NEEDS AT THIS TIME.
--- NOTE | 2024-05-17 09:55 | NUR ---
PT NOT AVAILABLE FOR VISIT. PROVIDED PRAYER.
--- NOTE | 2024-05-17 10:31 | NUR ---
PT SITTING UP IN CHAIR, PT REQUESTED A BANDAID BECAUSE SHE HAS A SMALL CUT ON HER FINGER, RH. PT HAS NO COCNERNS AT THIS TIME CALL LIGHT IN REACH.
--- NOTE | 2024-05-17 11:31 | NUR ---
PT SITTING UP IN CHAIR, PT STATES " SHE DOES NOT NEED ANYTHING RIGHT NOW". PT HAS CALL LIGHT IN REACH.
--- NOTE | 2024-05-17 12:21 | NUR ---
PT CURRENTLY SITTING UP IN BED, PT HAS NO CONCERNS AT THIS TIME AND HAS CALL LIGHT IN REACH.
--- NOTE | 2024-05-17 13:35 | NUR ---
PT SITTING UP IN CHAIR WITH FRIEND IN ROOM. PT HAS NO CONCERNS AT THIS TIME, PT HAS CALL LIGHT IN REACH.
--- NOTE | 2024-05-17 13:36 | NUR ---
PATIENT IN CHAIR AT THIS TIME. RADIO TIME SALES SUPERVISOR CHARTED VITALS AND I&O'S. CALL LIGHT WITHIN REACH, NO FURTHER NEEDS AT THIS TIME.
--- NOTE | 2024-05-17 15:03 | NUR ---
PT SITTINGUP IN CHAIR, PT ALERT AND ORIENTED. PT HAS CALL LIGHT IN REACH AND HAS REQUESTED A CUP OF ICE. PT HAS NO OTHER CONCERNS AT THIS TIME.
--- NOTE | 2024-05-17 15:34 | NUR ---
PT SITTING UP IN CHAIR. PT HAS NO CONCERNS AT THIS TIME. PT WAS TOLD THAT THE MD NOTES SAY SHE WILL POSSIBLY BE DC'D TOMORROW OR THURSDAY. PT WAS AGREEABLE. PT HAS CALL LIGHT IN REACH.
--- NOTE | 2024-05-17 17:11 | NUR ---
PATIENT IN CHAIR AT THIS TIME. MOLD FILLER ASSISTED PATIENT GETTING INTO THE SHOWER AND THEN BACK TO CHAIR. CALL LIGHT WITHIN REACH, NO FURTHER NEEDS AT THIS TIME.
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
--- NOTE | 2024-05-17 17:51 | NUR ---
PATIENT IN BED AT THIS TIME. QUALITY CONTROL TECH RAW MATERIALS CHARTED VITALS AND I&O'S. CALL LIGHT WITHIN REACH, NO FURTHER NEEDS AT THIS TIME.
--- NOTE | 2024-05-17 18:58 | NUR ---
MD CLEMENT CONTACTED VIA PHONE. STATED PT IS FINE TO NOT HAVE AN IV DURING ADMISSION.
--- NOTE | 2024-05-17 19:37 | NUR ---
Report received from day shift RN. Pt resting in bed. Safety precutions maintained. Call light within reach. Will continue to monitor.
--- NOTE | 2024-05-17 21:10 | NUR ---
Pt assessed and medications given. VSS. BS stable, no sliding scale insulin needed. Umanzor care done. Umanzor draining well per gravity with good output noted. Safety precautions maintained. Call light within reach. Will continue to monitor.
[2024-05-18] VITALS (10 sets, daily range): BP systolic 126–145; BP diastolic 61–84
[2024-05-18 05:58] LABS: BASOPHILS 0.6 % (0-2); EOSINOPHILS 0.6 % (0-6); HEMATOCRIT 30.4 % (35.0-50.0); HEMOGLOBIN 10.7 g/dL (12.0-18.0); LYMPHOCYTES 13.1 % (24-44); MCH 31.8 (27-36); MCHC 35.2 g/dl (30-36); MCV 90.4 fl (81-99); NEUTROPHILS 77.7 % (39-80); PLATELET COUNT 68 K/uL (140-440); RBC 3.37 M/ul (4.3-5.7)
--- NOTE | 2024-05-18 06:08 | NUR ---
Pt rested well during the shift. Umanzor draining well per gravity with good output noted. VSS. Infiltrated IV removed. Ok to not put in another IV per hospitalist. Safety precautions maintained. Call light within reach. Will continue to monitor.
[2024-05-18 06:12] LABS: INR 1.49 (0.80-1.30)
[2024-05-18 06:17] LABS: ALBUMIN 2.3 g/dL (3.4-5.0); ALBUMIN/GLOBULIN RATIO 0.92 (1.1-2.4); BILIRUBIN, TOTAL 2.3 mg/dL (0.2-1.0); BUN/CREATININE RATIO 12.5 (6.0-28.6); CALCIUM 8.5 mg/dL (8.5-10.1); CREATININE, SERUM 1.6 mg/dL (0.55-1.02); MAGNESIUM 1.6 mg/dL (1.8-2.4); PROTEIN, TOTAL 4.8 g/dL (6.4-8.2)
--- NOTE | 2024-05-18 07:32 | NUR ---
PT SITTING UP IN BED. PT WANTED TO KNOW WHAT THE POC WAS FOR TODAY AND IF THEY WOULD BE DISCHARGED TODAY. PT WAS ARAMIS THE DOCTOR WILL INFORM HER TODAY WHEN HE COMES BY. PT WAS AGREEABLE. PT HAS NO OTHER CONCERNS AT THIS TIME CALL LIGHT IN REACH.
[2024-05-18] MEDS ORDERED: MAGNESIUM SULFATE 2 GM/50 ML BAG IV SCH (07:45)
--- NOTE | 2024-05-18 08:30 | NUR ---
PT UP IN CHAIR EATING BREAKFAST, PT HAS NO CONCERNS AT THIS TIME. PT HAS CALL LIGHT IN REACH.
--- NOTE | 2024-05-18 09:40 | NUR ---
PT SITTING IN CHAIR. PT ASKED TO MOVE BACK TO BED. PT AMBULATED 1PA AND TOLERATED WELL. PT IN BED WITH CALL LIGHT IN REACH.
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
--- NOTE | 2024-05-18 10:23 | NUR ---
VISITED DURING SPIRITUAL CARE ROUNDS. PT REQUESTED [employer] VISIT. RELAYED REQUEST TO [employer] VIA NOTE IN SACRISTRY. PROVIDED PRAYER.
--- NOTE | 2024-05-18 11:00 | NUR ---
PT SITTING UP IN BED REQUESTED A MARIA DE JESUS RODRIGUEZ PT HAS NO OTHER NEEDS RIGHT NOW CALL LIGHT IN REACH.
--- NOTE | 2024-05-18 12:29 | NUR ---
PT UP IN CHAIR EATING BREAKFAST, PT HAS NO CONCERNS AT THIS TIME. PT HAS CALL LIGHT IN REACH.
--- NOTE | 2024-05-18 12:32 | NUR ---
PT SITTING UP IN BED EATING LUNCH PT RECIEVED NO INSULIN (SEE EMAR). PT HAS NO CONCERNS AT THIS TIME CALL LIGHT IN REACH.
--- NOTE | 2024-05-18 14:15 | NUR ---
PT LAYING IN BED PT ALERT AND ORIENTED, PT HAS NO CONCERNS AT THE MOMENT AND HAS THEIR CALL LIGHT IN REACH.
--- NOTE | 2024-05-18 15:25 | NUR ---
PT IN ROOM WITH [facility], PT HAS NO CURRENT NEEDS AT THIS TIME CALL LIGHT IN REACH.
--- NOTE | 2024-05-18 16:33 | NUR ---
PT SITTING UP IN BED PT HAS SISTER AND THEIR S/O IN ROOM AT BED SIDE. PT HAS CALL LIGHT IN REACH AND NO CONCERNS AT THIS TIME.
--- NOTE | 2024-05-18 16:59 | NUR ---
PT SITTING UP IN BED, PT IS WAITING FOR DINNER BUT HAS NO OTHER NEEDS AT THIS TIME CALL LIGHT IN REACH.
--- NOTE | 2024-05-18 18:41 | NUR ---
PT USED CALL LIGHT AND ASKED TO GO TO THE RESTROOM, PT AMBULATED 1PA WITH FWW. PT USED RESTROOM AND HAD BM X1 PT HAS NO CONCERNS AT THIS TIME AND RETURNED TO BED WITH HELP FROM TOP CUTTER. PT HAS CALL LIGHT IN REACH.
--- NOTE | 2024-05-18 19:25 | NUR ---
REPORT RECEIVED FROM DAYSSCFT RN. PATIENT RESTING IN BED, WATCHING TV. DENIES ANY NEEDS. CALL LIGHT IN REACH.
--- NOTE | 2024-05-18 19:51 | NUR ---
RN CALLED TO ROOM. PATIENT REQUESTED PRN MEDICATION FOR HEADACHE. VS OBTAINED AND RECORDED. NO FURTHER NEEDS IDENTIFIED, CALL LIGHT IN REACH
--- NOTE | 2024-05-18 21:35 | NUR ---
SCHEDULED MEDICATIONS ADMINISTERED, ASSESSMENT COMPLETE. PATIENT DENIES FURTHER NEEDS. CALL LIGHT IN REACH.
--- NOTE | 2024-05-18 23:06 | NUR ---
SBA BACK TO BED FROM RESTROOM WITH USE OF FWW. PATIENT PROVIDED DRINK AND SNACK PER REQUEST. NO FURTHER NEEDS IDENTIFIED. CALL LIGHT IN REACH.
[2024-05-19] VITALS (8 sets, daily range): BP systolic 128–141; BP diastolic 50–85
--- NOTE | 2024-05-19 00:22 | NUR ---
PATIENT RESTING WITH EYES CLOSED, RESPIRATIONS EVEN AND UNLABORED. NO NEEDS IDENTIFIED, CALL LIGHT WITHIN REACH.
--- NOTE | 2024-05-19 01:50 | NUR ---
PATIENT RESTING WITH EYES CLOSED, RESPIRATIONS EVEN AND UNLABORED. NO NEEDS IDENTFIED. CALL LIGHT IN REACH.
--- NOTE | 2024-05-19 03:14 | NUR ---
CALL LIGHT ANSWERED. DRINK REFILL PROVIDED PER REQUEST. DENIES FURTHER NEEDS. CALL LIGHT IN REACH.
[2024-05-19 06:07] LABS: INR 1.42 (0.80-1.30); PROTIME 17.3 Sec (11.2-14.2)
--- NOTE | 2024-05-19 06:11 | NUR ---
SCHEDULED MEDS ADMINISTERED PER MAR. PATIENT DENIES ANY NEEDS. CALL LIGHT IN REACH.
[2024-05-19 06:15] LABS: BASOPHILS 1.1 % (0-2); EOSINOPHILS 3.3 % (0-6); HEMATOCRIT 33.1 % (35.0-50.0); HEMOGLOBIN 11.4 g/dL (12.0-18.0); LYMPHOCYTES 15.8 % (24-44); MCH 31.5 (27-36); MCHC 34.4 g/dl (30-36); MCV 91.4 fl (81-99); MONOCYTES 11.4 % (0-12); NEUTROPHILS 68.4 % (39-80); PLATELET COUNT 67 K/uL (140-440); RBC 3.62 M/ul (4.3-5.7)
[2024-05-19 06:19] LABS: ALBUMIN 2.5 g/dL (3.4-5.0); ALBUMIN/GLOBULIN RATIO 0.96 (1.1-2.4); ANION GAP 15.1 (7-21); BILIRUBIN, TOTAL 2.1 mg/dL (0.2-1.0); BUN/CREATININE RATIO 13.66 (6.0-28.6); CALCIUM 8.9 mg/dL (8.5-10.1); CREATININE, SERUM 1.61 mg/dL (0.55-1.02); MAGNESIUM 2.3 mg/dL (1.8-2.4); POTASSIUM 4.1 mmol/L (3.5-5.1); PROTEIN, TOTAL 5.1 g/dL (6.4-8.2)
--- NOTE | 2024-05-19 07:05 | NUR ---
PT RESTING IN BED WITH EYES CLOSED. CALL LIGHT WITHIN REACH. REPORT RECEIVED FROM JEYSON PILLAI
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
--- NOTE | 2024-05-19 11:09 | NUR ---
Patient ambulated hallways once with their FWW. Returned to bed once done. Call light and personal items within reach. Significant other in room with patient.
--- NOTE | 2024-05-19 13:08 | NUR ---
REYNOLDS CATHETER DC'D PER ORDER, PT TOLERATED WELL. NO REQUESTS AT THIS TIME. CALL LIGHT WITHIN REACH.
--- NOTE | 2024-05-19 14:36 | NUR ---
Erna Bender by FREYA Toribio. Patient instructed to call for bathroom assist. Call light and personal items within reach.
--- NOTE | 2024-05-19 14:54 | NUR ---
PATIENT IN BED AT THIS TIME, NUT SHELLER MACHINE OPERATOR ASSISTED TO THE RESTROOM AND BACK TO BED. GOT FRESH WATER AND BLANKET. CALL LIGHT WIHT IN REACH, NOTHING ELSE NEEDED AT THIS TIME.
--- NOTE | 2024-05-19 15:36 | NUR ---
PT RESTING IN BED WATCHING TV, CALL LIGHT WITHIN REACH.
--- NOTE | 2024-05-19 17:22 | NUR ---
PT SITTING UP IN BED EATING DINNER AND VISITING WITH FRIEND. CALL LIGHT WITHIN REACH.
--- NOTE | 2024-05-19 18:37 | NUR ---
PT SITTING UP IN BED VISITING WITH FRIEND. CALL LIGHT WITHIN REACH, DIET GINGERALE GIVEN PER PT REQUEST.
--- NOTE | 2024-05-19 19:47 | NUR ---
BATHROOM CALL LIGHT ANSWERED. VIROLOGY TEACHER SBA BACK TO BED. PT STATES NO FURTHER NEEDS AT THIS TIME. CALL LIGHT WITHIN REACH.
--- NOTE | 2024-05-19 21:04 | NUR ---
FARM MARKETER OBTAINED VITALS AND I&O. PT GIVEN DIET SODA UPON REQUEST. PT STATES NO FURTHER NEEDS AT THIS TIME. CALL LIGHT WITHIN REACH.
[2024-05-20] VITALS (8 sets, daily range): BP systolic 141–148; BP diastolic 49–71
--- NOTE | 2024-05-20 00:12 | NUR ---
PATIENT RESTING BED, SHE REPORTS SHE WAS SLEEPING, PATIENT ASKED FOR A MILK AT THIS TIME THIS IS PROVIDED. PATIENT HAS NO OTHER REQUESTS AT THIS TIME, CALL LIGHT IN REACH.
--- NOTE | 2024-05-20 00:50 | NUR ---
CALL LIGHT ANSWERED. PT NEEDED TO HAVE BM. MACHINE TACK PULLER SBA WITH FWW TO BATHROOM. PT INSTRUCTED TO CALL WHEN READY. BATHROOM CALL LIGHT ANSWERED. PT GIVEN CLEAN BREIF AND ASSISTED BACK TO BED. PT VOIDED. ICE WATER REFILLED. PT STATES NO FURTHER NEEDS AT THIS TIME. CALL LIGHT WITHIN REACH.
[2024-05-20 05:41] LABS: BASOPHILS 0.5 % (0-2); EOSINOPHILS 2.3 % (0-6); HEMATOCRIT 31.9 % (35.0-50.0); HEMOGLOBIN 11.3 g/dL (12.0-18.0); LYMPHOCYTES 14.5 % (24-44); MCH 32.1 (27-36); MCHC 35.3 g/dl (30-36); MCV 90.9 fl (81-99); MONOCYTES 11.9 % (0-12); NEUTROPHILS 70.8 % (39-80); PLATELET COUNT 79 K/uL (140-440); RBC 3.51 M/ul (4.3-5.7); RDW 15.7 (10.5-15.0)
--- NOTE | 2024-05-20 05:54 | NUR ---
PATIENT ALERT AND ORIENTED, CALLED NURSES STATION TO REQUEST ASSISTANCE TO BATHROOM. SHE HAD EXTRA LARGE BM AND VOIDED.
--- NOTE | 2024-05-20 05:56 | NUR ---
MOTORCYCLE POLICE OBTAINED VITALS AND I&O. ICE WATER REFILLED. PT STATES NO FURTHER NEEDS AT THIS TIME. CALL LIGHT WITHIN REACH.
[2024-05-20 05:57] LABS: INR 1.43 (0.80-1.30); PROTIME 17.4 Sec (11.2-14.2)
[2024-05-20 06:01] LABS: ALBUMIN 2.4 g/dL (3.4-5.0); ALBUMIN/GLOBULIN RATIO 0.96 (1.1-2.4); BILIRUBIN, TOTAL 2.2 mg/dL (0.2-1.0); BUN/CREATININE RATIO 18.05 (6.0-28.6); CALCIUM 8.7 mg/dL (8.5-10.1); CREATININE, SERUM 1.44 mg/dL (0.55-1.02); PROTEIN, TOTAL 4.9 g/dL (6.4-8.2)
--- NOTE | 2024-05-20 08:00 | NUR ---
PATIENT WAS IN BED AT THIS TIME, MANAGER FLIGHT OPERATIONS GOT A WARM WASH CLOTH FOR PATIENT AND HELPED HER MOVE TO THE CHAIR. CHARTED BLOODSUGAR LEVELS, MADE SURE CALL LIGHT WAS WITH IN REACH, NOTHING ELSE NEEDED AT THIS TIME.
[2024-05-20] MEDS ORDERED: prednisoLONE 15 MG/5 ML ML PO SCH (09:00)
--- NOTE | 2024-05-20 09:09 | NUR ---
Patient awake, alert and oriented x3. Patient reports she had a large formed stool early this morning. Patient reports she did not sleep well last night. Patient tolerated breakfast well, no nausea. Patient close to RN station.
--- NOTE | 2024-05-20 09:21 | NUR ---
Admin dilaudid 2mg po at this time for reports of 5/10 neck/head pain. Fresh water provided to patient.
--- NOTE | 2024-05-20 09:46 | NUR ---
PATIENT IS IN HER CHAIR AT THIS TIME. FIRST OFFICER AND FLIGHT INSTRUCTOR CHARTED VITALS AND I&O'S, CALL LIGHT WITH IN REACH, NOTHING ELSE NEEDED AT THIS TIME.
--- NOTE | 2024-05-20 11:33 | NUR ---
PLANNING LIKELY DC TO HOME TOMORROW. IMM LETTER PROVIDED. DENIES OTHER CM NEEDS AT THIS TIME.
--- NOTE | 2024-05-20 12:55 | NUR ---
Patient vomited appox 400ml emesis post meal. Zofran 4mg iv admin at this time. Dr. Fry at bedside, vorb for soap suds enema to be admin.
[2024-05-20] MEDS ORDERED: LACTULOSE 20 GM/30 ML CUP PO SCH (13:00)
--- NOTE | 2024-05-20 13:54 | NUR ---
Soap melinda enema admin at this time. Patient produced very large formed light brown colored stool. Patient reports continued nausea. Will admin scheduled lactulose as soon as patient able to tolerate.
--- NOTE | 2024-05-20 15:07 | NUR ---
Patient still nauseated. Admin compazine 10mg iv admin per protocol.
--- NOTE | 2024-05-20 15:21 | NUR ---
VISITED DURING SPIRITUAL CARE ROUNDS. PT EXPRESSED EXPECTATION OF ROLL EDGE STITCHER HAND VISIT AFTER MASS, NO OTHER NEEDS. DIRECTOR OF REAL ESTATE PROVIDED SUPPORTIVE PRESENCE, HOSPITALITY, PRAYER, RELAYED DESIRE FOR VISIT TO PRIESTS VIA NOTE IN SACRISTRY.
--- NOTE | 2024-05-20 18:27 | NUR ---
PATIENT HAD TO USE THE RESTROOM, MANAGER REAL ESTATE ASSISTED BACK TO BED, CHARTED VITALS AND I&O'S. CALL LIGHT WITH IN REACH AND NOTHING ELSE NEEDED AT THIS TIME.
--- NOTE | 2024-05-20 19:36 | NUR ---
RECEIVED REPORT FROM DAYSHIFT RN. PATIENT RESTING WITH EYES CLOSED ON LEFT SIDE, RESP. EVEN AND UNLABORED. NO NEEDS IDENTIFIED, CALL LIGHT IN REACH.
--- NOTE | 2024-05-20 20:14 | NUR ---
LITHOGRAPHIC RETOUCHER APPRENTICE OBTAINED VITALS AND I&O. PT STATES NO FURHTER NEEDS AT THIS TIME. CALL LIGHT WITHIN REACH.
--- NOTE | 2024-05-20 20:55 | NUR ---
PATIENT RESTING IN BED COMFORTABLY, SCHEDULED MEDICATIONS ADMINISTERED. ASSESSMENT COMPLETE. PATIENT GIVEN SNACK PER REQUEST, DENIES OTHER NEEDS. CALL LIGHT IN REACH.
--- NOTE | 2024-05-20 22:25 | NUR ---
PATIENT RESTING IN BED WATCHING TV, SNACK PROVIDED PER REQUEST. NO FURTHER NEEDS IDENTIFIED, CALL LIGHT IN REACH.
--- NOTE | 2024-05-20 23:49 | NUR ---
CALL LIGHT ANSWERED. PT NEEDED TO USE BATHROOM HEAD OF PRODUCT SBA WITH FWW TO BATHROOM. PT INSTRUCTED TO USE BATHROOM. CALL LIGHT WHEN DONE. BATHROOM CALL LIGHT ANSWERED. PT HAD VOIDED AND HAD SMALL BM. PT ASSISTED BACK TO BED. ICE WATER REFILLED. PT STATES NO FURTHER NEEDS AT THIS TIME. CALL LIGHT WITHIN REACH.
--- NOTE | 2024-05-21 00:10 | NUR ---
CALL LIGHT ANSWERED. PATIENT REQUESTED PAIN MEDICATION FOR HEADACHE. PRN MEDICATION ADMINISTERED. FRESH WATER PROVIDED. PATIENT DENIES OTHER NEEDS. CALL LIGHT WITHIN REACH.
--- NOTE | 2024-05-21 02:16 | NUR ---
PATIENT RESTING WITH EYES CLOSED, RESP. EVEN AND UNLABORED. NO NEEDS IDENTIFIED, CALL LIGHT IN REACH.
--- NOTE | 2024-05-21 04:27 | NUR ---
PATIENT SITTING UPRIGHT IN BED, READING NEWSPAPER. REQUESTING THAT HER SANDWICH BE PLACED BACK INTO PATIENT FRIDGE WITH HER NAME ON IT. DENIES ANY FURTHER NEEDS AT THIS TIME. CALL LIGHT IN REACH.
[2024-05-21 04:48] VITALS: BP 150/68
[2024-05-21 04:49] VITALS: BP 150/68
--- NOTE | 2024-05-21 05:15 | NUR ---
PATIENT ASSISTED UP TO RESTROOM. BACK TO BED WITHOUT DIFFICULTY. NO OTHER NEEDS. CALL LIGHT IN REACH.
[2024-05-21 05:51] LABS: BASOPHILS 0.4 % (0-2); HEMATOCRIT 33.2 % (35.0-50.0); HEMOGLOBIN 11.7 g/dL (12.0-18.0); LYMPHOCYTES 19.9 % (24-44); MCHC 35.1 g/dl (30-36); MCV 91.2 fl (81-99); MONOCYTES 13.2 % (0-12); NEUTROPHILS 63.5 % (39-80); PLATELET COUNT 74 K/uL (140-440); RBC 3.64 M/ul (4.3-5.7); RDW 16.1 (10.5-15.0)
[2024-05-21 06:01] LABS: ALBUMIN 2.5 g/dL (3.4-5.0); ALBUMIN/GLOBULIN RATIO 0.96 (1.1-2.4); ANION GAP 13.6 (7-21); BILIRUBIN, TOTAL 2.5 mg/dL (0.2-1.0); BUN/CREATININE RATIO 16.66 (6.0-28.6); CALCIUM 8.6 mg/dL (8.5-10.1); CREATININE, SERUM 1.44 mg/dL (0.55-1.02); MAGNESIUM 1.9 mg/dL (1.8-2.4); POTASSIUM 3.6 mmol/L (3.5-5.1); PROTEIN, TOTAL 5.1 g/dL (6.4-8.2)
[2024-05-21 06:11] LABS: INR 1.46 (0.80-1.30); PROTIME 17.7 Sec (11.2-14.2)
--- NOTE | 2024-05-21 06:48 | NUR ---
SCHEDULED MEDS ADMIN. PATIENT CONTINUES TO LAY ON SIDE, REQUESTING TO REST. DENIES OTHER NEEDS, CALL LIGHT IN REACH.
--- NOTE | 2024-05-21 07:08 | NUR ---
REPORT RECEIVED FROM FREYA LYNN AND FREYA MENEZES. PT CURRENTLY AMBULATING WITH SBA TO RESTROOM WITH AMADA RICARDO. PT GREETS THIS RN UPON ENTERING. AMADA RICARDO REMAINS IN ROOM.
--- NOTE | 2024-05-21 08:20 | NUR ---
MEDICATION ADMINISTERED, SEE MAR. ASSESSMENT COMPLETE. PT IS SITTING UP IN CHAIR ON HER CELL PHONE. LUNG SOUNDS CLEAR THROUGHOUT, HEART SOUNDS HEARD WNL. IV TO R HAND FLUSHES WNL. COBAN WAS WRAPPED AROUND PTs R HAND AND IV, COBAN REMOVED TO EXAMINE SITE. PT ALSO HAS FOAM FINGER SPLINT IN PLACE TO FOURTH AND FIFTH DIGITS OF R HAND, WRAPPED WITH FOAM TAPE. PT REPORTS THIS WAS PLACED AFTER IV PLACEMENT TO PREVENT IV FROM GETTING PULLED OR DISLODGING. FINGER SPLINT AND TAPE LEFT IN PLACE AT THIS TIME. PT IS CONVERSING PLEASANTLY WITH THIS RN, CURRENTLY REPORTS NO NAUSEA. BOWEL TONES ARE ACTIVE IN ALL FOUR QUADRANTS, PT REPORTS TENDERNESS TO PALPATION IN RUQ AND RLQ. TRACE EDEMA NOTED TO PTs BLE, PT REPORTS HER EDEMA IS "REALLY GOOD LATELY", SHE ATTRIBUTES THIS TO WEARING THE SCDs WHILE IN BED. MD ARRIVES TO ASSESS PT. ALL QUESTIONS AND CONCERNS ANSWERED, PT REPORTS FEELING ANXIOUS AND EXCITED ABOUT POSSIBLY GETTING OUT OF THE HOSPITAL. SHE WOULD LIKE TO SEE THE FIREWORKS AT [facility]. PT TAKES HER MEDICATIONS WITHOUT ISSUE. PT IS ALERT AND ORIENTED TO HER BASELINE. NO REQUESTS AT THIS TIME, CALL LIGHT IN REACH.
[2024-05-21] MEDS ORDERED: PREDNISOLO15 MG/5 M1 PO (09:10)
[2024-05-21] MEDS ORDERED: POTASSIUM CHLORIDE 10 MEQ TABCR PO ONE (09:15)
[2024-05-21] MEDS ORDERED: PREDNISOLO15 MG/5 ML PO (09:16)
[2024-05-21 09:43] VITALS: BP 153/75
--- NOTE | 2024-05-21 10:20 | NUR ---
PT UP IN RECLINER ON HER CELL PHONE. IV REMOVED WNL. PT REPORTS HER RIDE WILL BE HERE AT 1100 TO PICK HER UP, SHE IS LOOKING FORWARD TO THIS. PTs CLOTHES RETURNED TO HER SO SHE MAY BEGIN GETTING DRESSED. CALL LIGHT IN REACH.
[2024-05-21 10:48] VITALS: BP 153/75
== END 2024-05-21 11:18 | disposition home or self-care (01) | DRG 442 ==
LOC: ED 17:43 → MS 17:45
PROVIDERS: Emergency Medicine; Student in an Organized Health Care Education/Training Program; ADMIT Student in an Organized Health Care Education/Training Program; ATTEND Student in an Organized Health Care Education/Training Program
DX: K76.82 Hepatic encephalopathy (principal); N17.9 Acute kidney failure, unspecified; I10 Essential (primary) hypertension; J44.9 Chronic obstructive pulmonary disease, unspecified; E11.9 Type 2 diabetes mellitus without complications; K70.30 Alcoholic cirrhosis of liver without ascites; Z66 Do not resuscitate; K70.10 Alcoholic hepatitis without ascites; E78.5 Hyperlipidemia, unspecified; J45.909 Unspecified asthma, uncomplicated; F32.9 Major depressive disorder, single episode, unspecified; K21.9 Gastro-esophageal reflux disease without esophagitis; K59.00 Constipation, unspecified; D69.6 Thrombocytopenia, unspecified; F41.1 Generalized anxiety disorder; Z91.148 Patient's other noncompliance with medication regimen for other reason; Z87.440 Personal history of urinary (tract) infections; Z87.19 Personal history of other diseases of the digestive system; Z87.01 Personal history of pneumonia (recurrent); Z87.891 Personal history of nicotine dependence; Z98.890 Other specified postprocedural states; Z90.49 Acquired absence of other specified parts of digestive tract; Z79.899 Other long term (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
CPT/HCPCS: 36415; 51798; 76705; 80053; 81003; 82140; 83690; 83735; 84100; 85025; 85060; 85610; 96361; 96374; 96375; 96376; 99284-25; A9270; G0378; J0780; J1815; J2405; J2470; J3475; J7030; J7121; J7510; J7512

== ENCOUNTER 2024-05-23 09:31 | Inpatient (IN) | payer MEDICARE, MEDICAID, OTHER ==
[~2024-05-23] VITALS: Ht 172.7 cm; Wt 103.5 kg
[~2024-05-23 09:31] MED LIST changes: +PREDNISOLO15 MG/5 M1 PO; +PREDNISOLO15 MG/5 ML PO
[2024-05-23 09:56] LABS: PH, VENOUS 7.413 (7.31-7.41)
[2024-05-23 09:59] LABS: BASOPHILS 0.9 % (0-2); EOSINOPHILS 1.6 % (0-6); HEMATOCRIT 39.8 % (35.0-50.0); HEMOGLOBIN 13.7 g/dL (12.0-18.0); LYMPHOCYTES 33.2 % (24-44); MCH 31.7 (27-36); MCHC 34.4 g/dl (30-36); MCV 92.2 fl (81-99); MONOCYTES 12.7 % (0-12); NEUTROPHILS 51.6 % (39-80); PLATELET COUNT 91 K/uL (140-440); RBC 4.32 M/ul (4.3-5.7)
[2024-05-23 10:10] LABS: INR 1.33 (0.80-1.30); PROTIME 16.4 Sec (11.2-14.2)
[2024-05-23 10:16] LABS: ALBUMIN 3.2 g/dL (3.4-5.0); ALBUMIN/GLOBULIN RATIO 1.07 (1.1-2.4); ALCOHOL, MEDICAL <3 ng/dL (<3); ALKALINE PHOSPHATASE 183 U/L (46-116); ALT (SGPT) 67 U/L (14-59); ANION GAP 14.1 (7-21); AST (SGOT) 49 U/L (15-37); BILIRUBIN, TOTAL 3.6 mg/dL (0.2-1.0); BUN/CREATININE RATIO 17.07 (6.0-28.6); CALCIUM 8.6 mg/dL (8.5-10.1); CARBON DIOXIDE 20 mmol/L (21-32); CHLORIDE 110 mmol/L (98-107); CREATININE, SERUM 1.64 mg/dL (0.55-1.02); GLOMERULAR FILTRATION RATE,EST 38 mL/min (>60); POTASSIUM 4.1 mmol/L (3.5-5.1); PROTEIN, TOTAL 6.2 g/dL (6.4-8.2); UREA NITROGEN 28 mg/dL (7-18)
[2024-05-23 10:29] LABS: BILIRUBIN, URINE NEGATIVE (negative); BLOOD/HGB, URINE NEGATIVE (Negative); KETONE, URINE NEGATIVE (Negative); LEUK ESTERASE, URINE SMALL (negative); NITRITE, URINE NEGATIVE (negative)
[2024-05-23] MEDS ORDERED: LIDOCAINE 2% VISCOUS 6 ML SYR TOP ONE (10:30)
[2024-05-23 10:36] LABS: BACTERIA, URINE 2+ /hpf (negative); CASTS, URINE NONE SEEN \\lpf; COLLECTION TYPE, URINE CLEAN CATCH; CRYSTALS, URINE NONE SEEN (0-1+); EPITHELIAL CELLS, URINE OCCASIONAL /lpf (0-1+); RED BLOOD CELLS, URINE 0-1 /hpf (0-5); REFLEX CULTURE, URINE Yes (No)
[2024-05-23] MEDS ORDERED: CEFTRIAXONE SODIUM 1 GM VIAL IV ONE (10:56)
[2024-05-23] MEDS ORDERED: CEFTRIAXONE SODIUM 1 GM in SODIUM CHLORIDE 0.9% 100 ML IV ONE (11:00)
[2024-05-23] MEDS ORDERED: IBLOOD GLUCOSE TEST STRIP 1 EA TEST XX PRN (11:45)
[2024-05-23] MEDS ORDERED: DEXTROSE 50% 50 ML SYR IV PRN ×2 (11:45)
[2024-05-23] MEDS ORDERED: GLUCAGON,HUMAN RECOMBINANT 1 MG/ML VIAL SUB-Q PRN (11:45)
[2024-05-23] MEDS ORDERED: DEXTROSE 5% 1,000 ML IV PRN (11:45)
[2024-05-23] MEDS ORDERED: SODIUM CHLORIDE 0.9% 1,000 ML IV SCH (11:45)
[2024-05-23] MEDS ORDERED: ondansetron HCL 4 MG/2 ML VIAL IV PRN (11:45)
[2024-05-23] MEDS ORDERED: LACTULOSE 10 GM/15 ML ML PR ONE (11:45)
[2024-05-23] MEDS ORDERED: IBLOOD GLUCOSE TEST STRIP 1 EA TEST VI SCH (12:00)
[2024-05-23] MEDS ORDERED: PHARMACY RENAL DOSE ADJUSTMENT 1 DOSE MISC PO SCH (12:00)
[2024-05-23] MEDS ORDERED: INSULIN LISPRO 100 UNIT/ML ML SUB-Q SCH (12:00)
--- NOTE | 2024-05-23 12:17 | NUR ---
medications reconciled
[2024-05-23] MEDS ORDERED: LORazepam 2 MG/ML VIAL IV ONE (12:45)
[2024-05-23 13:14] VITALS: BP 151/68
--- NOTE | 2024-05-23 14:16 | NUR ---
PLACED RECTAL FOR LACTULOSE ADMINISTRATION. PT UNABLE TO USE STRAW OR KNOW WHAT TO DO WITH HER MOUTH, SO UNSAFE TO GIVE ORALY. PT TOLERATED TUBE WELL ALTHOUGH NOO THINKS SHE HAS TO USE THE RESTROOM. SITTER IN ROOM. COUSIN DIPIKA HAS LEFT.
--- NOTE | 2024-05-23 14:19 | NUR ---
RECIEVED CALL FROM SISTER PETERS. STATES SHE WOULD LIKE MORE INFORMATION FOR HOSPICE. INFORMATION PROVIDED. INFORMED HER SOMEONE WOULD HAVE TO BE WITH PATIENT 06/10 IF SHE GOES HOME ON HOSPICE CARE. VERBALIZES UNDERSTANDING. STATES PATIENT HAS A SIGNIFICANT OTHER WHO MAY BE ABLE TO STAY WITH HER BUT UNABLE TO STATE IF HE CAN ASSIST WITH CARES. PATIENT HAS PREVIOUSLY STATED SHE WANTS TO BE DNR/DNI WITH POLST. WILL CALL [facility] TO CHECK APPLICATION STATUS FOR CYLINDER INSPECTOR MEDICAID FOR POTENTIAL PLACEMENT OPTION WELL.
[2024-05-23] MEDS ORDERED: LACTULOSE 20 GM/30 ML CUP PO SCH (15:00)
--- NOTE | 2024-05-23 15:40 | NUR ---
PT REMAINS CONFUSED, SITTER IN ROOM. RECTAL TUBE DRAINING LACTULOSE WITH NO DISCERNABLE STOOL.
--- NOTE | 2024-05-23 15:43 | NUR ---
SPOKE WITH LUTHER LADLER FOR [facility], PATIENT HAS BEEN APPROVED FOR DATA MANAGEMENT MEDICAID. PLACEMENT FOR HOSPICE WILL BE COVERED. CALLED AND SPOKE WITH SISTER PETERS. STATES SHE WOULD PREFER PATIENT BE HOME ON HOSPICE BUT IF HER NEEDS ARE TOO HIGH FOR HOME, PLACEMENT IS VIABLE OPTION. SHE WOULD LIKE TO SEE HOW PATIENT IS IN THE MORNING. IF SHE IS ABLE TO SPEAK TO HER NEEDS IN THE MORNING, PLAN WHERE SHE IS TO GO WHEN SHE IS AWAKE. SISTER DOES STATE PATIENT IS DNR/DNI, HAS STATED SHE WANTS NO TUBE FEEDINGS AND SHE HAS AN ADVANCED DIRECTIVE. SISTER WILL BE SENDING COPY OF ADVANCED DIRECTIVE FOR PATIENT CHART.
[2024-05-23] MEDS ORDERED: PANTOPRAZOLE SODIUM 40 MG/10 ML VIAL IV SCH (15:48)
--- NOTE | 2024-05-23 16:07 | NUR ---
PATIENT CHOICES FOR FACILITIES DISCUSSED WITH LORRAINESISTER HARP. STATES HER AND MULTIPLE FAMILY MEMBERS BELIEVE PATIENT IS BETTER OFF GOING TO [facility] IF POSSIBLE AND REQUEST REFERRAL BE SENT.
--- NOTE | 2024-05-23 17:07 | NUR ---
PT ROLLED ONTO SIDE AND CHECKED CHUCKS. CHANGED BUT MOSTLY DRY. PT REMAINS CONFUSED AND UNORIENTABLE.
[2024-05-23 17:14] VITALS: BP 138/87
--- NOTE | 2024-05-23 19:15 | NUR ---
REPORT RECEIVED FROM JER PILLAI. pt RESTING IN THE BED. RECTAL TUBE AND REYNOLDS IN PLACE. BOARD UPDATED. pt C/O NAUSEA. THIS RN ASKED MD FOR NEW ORDERS FOR ANTINAUSEA MEDS. NEW ORDERS PLACED IN [facility] BY . pt DENIES ANY OTHER NEEDS AT THIS TIME. CALL LIGHT WITHIN REACH.
[2024-05-23] MEDS ORDERED: ACETAMINOPHEN 325 MG TAB PO PRN (19:30)
[2024-05-23] MEDS ORDERED: PROCHLORPERAZINE EDISYLATE 10 MG/2 ML VIAL IV PRN (19:30)
[2024-05-23 20:07] VITALS: BP 155/22
[2024-05-23 20:14] VITALS: BP 155/22
--- NOTE | 2024-05-23 20:20 | NUR ---
ASSESSMENT AND VITAL SIGNS DONE. BG CHECKED WITH A RESULTS OF 120. NO SS INSULIN ADMINISTERED. RECTAL TUBE IN PLACE. REYNOLDS CARE DONE. pt DENIES ANY NEEDS AT THIS TIME. pt A+O TO SELF. CALL LIGHT WITHIN REACH.
--- NOTE | 2024-05-23 21:10 | NUR ---
SCHEDULED MEDS ADMINISTERED. pt REPOSITIONED ON RIGHT SIDE. NEW IV BAG HUNG. IVF INFUSING PER ORDER.
--- NOTE | 2024-05-23 21:14 | EKG ---
[facility] [address] [place] [address] Signed Sinus rhythm with premature atrial complexes with aberrant conduction Anterior infarct (cited on or before 01-FEB-2016) T wave abnormality, consider lateral ischemia Abnormal ECG When compared with ECG of 27-APR-2024 20:56, aberrant conduction is now present Inverted T waves have replaced nonspecific T wave abnormality in Lateral leads Confirmed by Kati Mcallister MD () on 05/23/2024 9:14:28 PM Electronically Signed By: KATI MCALLISTER MD 05/23/244 PATIENT NAME: KAMILAH IBARRA Electrocardiogram DATE OF : 75 PHYSICIAN: KATI MCALLISTER MD REPORT #: [id number] REPORT IS CONFIDENTIAL AND NOT TO BE RELEASED WITHOUT AUTHORIZATION
--- NOTE | 2024-05-23 23:45 | NUR ---
pt RESTING IN THE BED WITH EYES CLOSED. RR EVEN AND UNLABORED. CALL LIGHT WITHIN REACH. AMADA BISHOP IN THE RM FOR 1:1.
[2024-05-24] VITALS (8 sets, daily range): BP systolic 130–158; BP diastolic 55–76
--- NOTE | 2024-05-24 02:21 | NUR ---
IN RM TO DO pt VS AND ASSESSMENT. BRIEF CHANGED. RECTAL TUBE AND REYNOLDS CLEANED AND IN PLACE. pt DENIES ANY OTHER NEEDS AT THIS TIME. CALL LIGHT WITHIN REACH.
--- NOTE | 2024-05-24 04:15 | NUR ---
pt RESTING IN THE BED WITH EYES CLOSED. RR EVEN AND UNLABORED. CALL LIGHT WITHIN REACH.
--- NOTE | 2024-05-24 05:58 | NUR ---
BRIEF CHANGED. REYNOLDS EMPTIED. NEW IVF BAG HUNG. IVF INFUSING PER ORDER. pt DENIES ANY OTHER NEEDS AT THIS TIME. pt HAD 200mL OF EMISES. CALL LIGHT WITHIN REACH. PRN ANTINAUSEA MEDS ADMINISTERED.
[2024-05-24 06:09] LABS: HEMATOCRIT 34.5 % (35.0-50.0); HEMOGLOBIN 11.8 g/dL (12.0-18.0); MCH 31.6 (27-36); MCHC 34.3 g/dl (30-36); MCV 92.1 fl (81-99); PLATELET COUNT 59 K/uL (140-440); RBC 3.74 M/ul (4.3-5.7)
[2024-05-24 06:26] LABS: ALBUMIN 2.4 g/dL (3.4-5.0); ALBUMIN/GLOBULIN RATIO 1.09 (1.1-2.4); ANION GAP 13.4 (7-21); BILIRUBIN, TOTAL 4.5 mg/dL (0.2-1.0); BUN/CREATININE RATIO 16.9 (6.0-28.6); CREATININE, SERUM 1.42 mg/dL (0.55-1.02); MAGNESIUM 1.9 mg/dL (1.8-2.4); PHOSPHORUS, INORGANIC 3.6 mg/dL (2.5-4.9); POTASSIUM 3.4 mmol/L (3.5-5.1); PROTEIN, TOTAL 4.6 g/dL (6.4-8.2)
[2024-05-24 06:33] LABS: BANDS, MANUAL DIFF 1; EOSINOPHILS, MANUAL DIFF 0; LYMPHOCYTES, MANUAL DIFF 48; MONOCYTES, MANUAL DIFF 5; NEUTROPHILS, MANUAL DIFF 46
[2024-05-24 06:34] LABS: BASOPHILS, MANUAL DIFF 0
--- NOTE | 2024-05-24 07:13 | NUR ---
VERBAL REPORT RECEIVED FROM FREYA LYNN. PT RESTS IN BED WITH EYES CLOSED, RESP EVEN AND UNLABORED.
[2024-05-24] MEDS ORDERED: DEXTROSE 5% 1,000 ML IV SCH (08:00)
--- NOTE | 2024-05-24 08:22 | NUR ---
UR CLINICAL REVIEW: 2 MN FOR VERSALUS-PER KNIFE BLADE POLISHER MEETS INPT FOR HEPATIC ENCEPHALOPATHY MEDICARE INPT 05/23/24 @ 1143 ORDER MATCHES REG NO AUTH REQUIRED PER MEDICARE GUIDELINES DISCHARGE PLACEMENT PENDING FURTHER EVAL AND FAMILY DISCUSSION
--- NOTE | 2024-05-24 08:52 | NUR ---
SHIFT ASSSESSMENT COMPLETE. PT ROUSES TO VOICE, DROWSY. ABLE TO FOLLOW INSTRUCTIONS AND DRINK THROUGH A STRAW. ORIENTED TO SELF ONLY AT THIS TIME. PT BACK TO RESTING WITH EYES CLOSED, RESP EVEN AND UNLABORED.
[2024-05-24] MEDS ORDERED: POTASSIUM CHLORIDE 40 MEQ,LIDOCAINE HCL 1% 40 MG in DEXTROSE 5% 250 ML IV ONE (09:00)
--- NOTE | 2024-05-24 09:10 | NUR ---
Attempted to speak with Liv. She does not recognize me today. I let her know her sister Yessy has called. She asks if I can ask her to call her. Pt speech is very slow. SO in chair at bedside.
--- NOTE | 2024-05-24 09:21 | NUR ---
SPOKE WITH SISTER PETERS. PATIENT IS NOT YET ORIENTED BUT IS SHOWING IMPROVEMENT PER NURSING STAFF. DISCUSSED WITH SISTER POTENTIAL PLACEMENT IN AN ASSISTED LIVING FACILITY INSTEAD OF [facility] IF NEEDED. SISTER VERBALIZES UNDERSTANDING.
--- NOTE | 2024-05-24 11:05 | NUR ---
VISITED DURING SPIRITUAL CARE ROUNDS. PT APPEARED CONFUSED, UNABLE TO REALLY ENGAGE IN CONVERSATION, REQUESTED DRINK. BRAZING MACHINE FEEDER PROVIDED SUPPORTIVE PRESENCE, HOSPITALITY, PRAYER, INFORMED NURSING STAFF OF REQUEST FOR DRINK. PT EXPRESSED GRATITUDE, NURSING STAFF INDICATED INTENT TO FOLLOW UP.
--- NOTE | 2024-05-24 11:31 | NUR ---
COMPAZINE RECEIVED FOR EPISODE OF NAUSEA AND EMESIS.
--- NOTE | 2024-05-24 12:08 | NUR ---
Called and gave a quick update to sister Yessy. She is on her lunch break and will call me back. She would like Liv to have hospice and/or placement. I let Yessy know I will have to discuss this with Liv.
--- NOTE | 2024-05-24 12:27 | NUR ---
PT SITS UP IN BED, EATS LUNCH AND VISITS WITH VISITORS X3. NO REQUESTS AT THIS TIME.
--- NOTE | 2024-05-24 13:25 | NUR ---
Received a call from pts sister, Yessy. She states concern as she states pt is not wanting to go to a SNF. Updated, Liv is not herself at this time and I don't really think she can make those decisions. We discussed it might be best to discuss this with Liv tomorrow or the next day.
--- NOTE | 2024-05-24 13:43 | NUR ---
PT REST IN BED WITH EYES CLOSED, RESP EVEN AND UNLABORED. REYNOLDS DRAINS CLEAR YELLOW URINE, NO NEW BM NOTED IN RECTAL TUBE. IV INFUSING, NO REDNESS OR SWELLING NOTED, DRESSING C/D/I. CALL LIGHT IN REACH.
[2024-05-24] MEDS ORDERED: prednisoLONE 60 MG/20 ML BTL PO SCH (15:25)
[2024-05-24] MEDS ORDERED: CEFTRIAXONE SODIUM 2 GM VIAL ONE (15:37)
--- NOTE | 2024-05-24 15:40 | NUR ---
VISITORS X 3 IN ROOM. CASE MANAGEMENT INTO SEE PT AND FAMILY.
--- NOTE | 2024-05-24 15:49 | NUR ---
PT RECEIVES ZOFRAN FOR REPORT OF NAUSEA.
[2024-05-24] MEDS ORDERED: CEFTRIAXONE SODIUM 2 GM in SODIUM CHLORIDE 0.9% 100 ML IV SCH (16:00)
--- NOTE | 2024-05-24 16:12 | NUR ---
Requested by family to return to room. Spoke with sister, Yessy. Pt is asking to go home with her. She does not have space and also has 15 steps into her home. She is asking if pt could go to [facility] and then transition into their [facility]. This facility is 10 minutes from home. I will send her chart to [facility] as pt recently had a >3 night IP stay. If pt not in agreement, we will cancel.
[2024-05-24 17:32] LABS: ANION GAP 15.7 (7-21); BUN/CREATININE RATIO 18.38 (6.0-28.6); CALCIUM 7.6 mg/dL (8.5-10.1); CREATININE, SERUM 1.36 mg/dL (0.55-1.02); POTASSIUM 3.7 mmol/L (3.5-5.1)
--- NOTE | 2024-05-24 18:54 | NUR ---
COMPAZINE RECEIVED FROM REPORT OF NAUSEA, SEE EMAR.
--- NOTE | 2024-05-24 19:49 | NUR ---
REPORT RECEIVED FROM LORRAINE PILLAI. pt RESTING IN THE BED. pt DENIES ANY NEEDS AT THIS TIME. BOARD UPDATED. CALL LIGHT WITHIN REACH.
[2024-05-24] MEDS ORDERED: Rifaximin 550 MG TAB PO SCH (21:00)
[2024-05-24] MEDS ORDERED: SODIUM CHLORIDE 0.9% 1,000 ML IV SCH (21:30)
--- NOTE | 2024-05-24 21:40 | NUR ---
ASSESSMENT DONE. pt RESTING IN THE BED. pt AROUSABLE WITH VOICE AND TOUCH BUT EASILY GOES BACK TO SLEEP. SCHEDULED MEDS ADMINISTERED. LACTULOSE GIVEN RECTALLY THROUGH RECTAL TUBE. pt DENIES ANY OTHER NEEDS AT THIS TIME. CALL LIGHT WITHIN REACH. pt POSITIONED ON RIGHT SIDE. BRIEF CHANGED.
--- NOTE | 2024-05-24 23:15 | NUR ---
RECTAL TUBE UNCLAMPED. pt RESTING ON HER RIGHT SIDE WITH EYES CLOSED. RR EVEN AND UNLABORED. CALL LIGHT WITHIN REACH.
[2024-05-25] VITALS (8 sets, daily range): BP systolic 136–166; BP diastolic 55–84
--- NOTE | 2024-05-25 02:12 | NUR ---
pt RESTING IN THE BED WITH EYES CLOSED. RR EVEN AND UNLABORED. CALL LIGHT WITHIN REACH.
--- NOTE | 2024-05-25 03:34 | NUR ---
pt AWAKE AND ASKING FOR A SNACK AND SOMETHING TO DRINK. WATER PROVIDED AND JELLO AND CRACKERS PROVIDED. pt DENIES ANY OTHER NEEDS AT THIS TIME. CALL LIGHT WITHIN REACH.
--- NOTE | 2024-05-25 04:17 | NUR ---
PT NEEDED CLEANING UP AND A NEW GOWN. PT ASKED FOR SOME FOOD AFTERWARD, HYBRID TECHNOLOGIST WAS INSTRUCTED TO PROVIDE JELLO AND CRACKERS IN HOPES TO NOT UPSET HER STOMACH.
--- NOTE | 2024-05-25 04:47 | NUR ---
pt CALLED STATING THAT SHE POOPED. THIS RN REMOVED THE RECTAL TUBE DUE TO pt BEING AWARE OF BM. AND BEING MORE AWAKE AND ALERT THIS MORNING.
--- NOTE | 2024-05-25 06:12 | NUR ---
NEW IV PLACED IN pt LEFT HAND. IV IN RAC DC'D DUE TO BEING PULLED. pt A&O TO SELF. pt DENIES ANY OTHER NEEDS AT THIS TIME. CALL LIGHT WITHIN REACH.
[2024-05-25 06:27] LABS: BASOPHILS 0.4 % (0-2); EOSINOPHILS 3.8 % (0-6); HEMATOCRIT 31.8 % (35.0-50.0); HEMOGLOBIN 11.1 g/dL (12.0-18.0); LYMPHOCYTES 25.9 % (24-44); MCH 32.2 (27-36); MCHC 34.9 g/dl (30-36); MCV 92.2 fl (81-99); MONOCYTES 16.7 % (0-12); NEUTROPHILS 53.2 % (39-80); PLATELET COUNT 51 K/uL (140-440); RBC 3.44 M/ul (4.3-5.7); RDW 17.7 (10.5-15.0)
[2024-05-25 06:44] LABS: ALBUMIN 2.1 g/dL (3.4-5.0); ALBUMIN/GLOBULIN RATIO 0.91 (1.1-2.4); ANION GAP 14.6 (7-21); BUN/CREATININE RATIO 21.87 (6.0-28.6); CALCIUM 7.9 mg/dL (8.5-10.1); CREATININE, SERUM 1.28 mg/dL (0.55-1.02); POTASSIUM 3.6 mmol/L (3.5-5.1); PROTEIN, TOTAL 4.4 g/dL (6.4-8.2)
--- NOTE | 2024-05-25 08:00 | NUR ---
PT RESTING IN BED WITH EYES CLOSED, DROWSY, RR EVEN AND UNLABORED. CALL LIGHT IN REACH, NEAR RN STATION WITH BED ALARM ON. NO INSULIN COVERAGE NEEDED THIS AM.
[2024-05-25] MEDS ORDERED: prednisoLONE 15 MG/5 ML ML PO SCH (09:00)
--- NOTE | 2024-05-25 09:00 | NUR ---
Attempted to speak with Liv. She is very tired and unable to lift her head. She may or maynot recognize me. Family want pt placed, this conversation will have to wait until pt is more alert. Rn in room updated Liv received compazine. Will fu with pt later.
--- NOTE | 2024-05-25 09:25 | NUR ---
AM ASSESSMENT COMPLETE - PT REQUIRES FREQUENT STIMULUS TO WAKE AND INTERACT. ORIENTED TO ALL BUT TIME. ABLE TO TAKE PO MEDS WITHOUT DIFFICULTY. PROFOUND GENERALIZED WEAKNESS NOTED COMPARED TO PREVIOUS ADMISSIONS. REYNOLDS DRAINING CLEAR YELLOW URINE, QS. VS STABLE. IV SITE WNL. PT ABLE TO REPOSISTION SELF UP IN BED - DENIES NAUSEA BUT ENCOURAGED TO ADVANCE DIET SLOWLY TO PREVENT NEEDING MEDICATIONS THAT FURTHER SEDATE HER. CALL LIGHT IN REACH.
--- NOTE | 2024-05-25 10:34 | NUR ---
VISITED DURING SPIRITUAL CARE ROUNDS. PT APPEARED TO BE SLEEPING. DID NOT DISTURB. PROVIDED PRAYER.
--- NOTE | 2024-05-25 10:41 | NUR ---
RN ROUNDING ON PT - RESTING IN BED, DROWSY BUT REQUESTS CRANBERRY JUICE. DIET JUICE REQUESTED FROM [facility]. CALL LIGHT IN REACH.
--- NOTE | 2024-05-25 13:01 | NUR ---
PT RESTING IN BED AWAKE AND ALERT LOOKING AT CELL PHONE. INSULIN COVERAGE ADMINISTERED. CALL LIGHT IN REACH.
--- NOTE | 2024-05-25 14:45 | NUR ---
PT RESTING IN BED - MORE ALERT THAN THIS AM, ENCOURAGED DISTRACTION ACTIVITIES AND PROVIDED COLORING BOOK. PT TEARFUL, MOOD LABILE. ENCOURAGED DEEP BREATHING. NO BM YET THIS SHIFT.
--- NOTE | 2024-05-25 15:32 | NUR ---
Spoke with Liv. She is now stating she would like to go to [facility] when she is cleared medically. She would like to eventually transition to their Assisted Living. Called and spoke with Chantelle pts [facility] case advocate. Updated pt agreeable to return to [facility]. Most likely will go as a therapy pt and then transition to assisted living. Per Chantelle everything is good on [facility]'s end.
[2024-05-25] MEDS ORDERED: CEFTRIAXONE SODIUM 2 GM VIAL ONE (15:37)
--- NOTE | 2024-05-25 15:56 | NUR ---
RN IN ROOM TO ADMINISTER MEDICATIONS. MD ROUNDING. ALL PT QUESTIONS ANSWERED. PT C/O HEADACHE, PRN GIVEN. PT REPORTS NAUSEA BUT IS ALSO REQUESTING DINNER. PT INCREASINGLY ALERT AND INTERACTIVE - ASKING ABOUT AMOUNT OF PATIENTS AND ORIENTED ENOUGH TO READ TIME ON CLOCK. CALL LIGHT IN REACH.
--- NOTE | 2024-05-25 17:09 | NUR ---
RN IN ROOM TO ADMINISTER INSULIN COVERAGE - PT'S SISTER ASSISTING PT TO EAT DINNER. CALL LIGHT IN REACH.
[2024-05-25] MEDS ORDERED: LACTULOSE 20 GM/30 ML CUP PO PRN (18:45)
--- NOTE | 2024-05-25 19:47 | NUR ---
IV PUMP ALARMING. NEW BAG IVF INFUSING WNL. pt STATES "MY POTASSIUM WENT UP TODAY" EDUCATED pt THAT AMMONIA INCREASED TODAY. pt REQUESTS DOSE OF LACTULOSE RIGHT NOW, NIGHT TIME DOSE ADMINISTERED AT THIS TIME. PRIMARY RN UPDATED. CALL LIGHT AND PERSONAL SUPPLIES WITHIN REACH.
[2024-05-25] MEDS ORDERED: LACTATED RINGER'S 1,000 ML IV SCH (20:00)
[2024-05-25 20:07] LABS: PH, VENOUS 7.376 (7.31-7.41)
--- NOTE | 2024-05-25 20:17 | NUR ---
DISPUTE RESOLUTION SPECIALIST OBTAINED VITALS, I&O, AND BLOOD SUGAR. CATH BAG EMPTIED. PT STATES NO FURTHER NEEDS AT THIS TIME. CALL LIGHT WITHIN REACH.
[2024-05-25 20:21] LABS: ANION GAP 17.7 (7-21); BUN/CREATININE RATIO 17.02 (6.0-28.6); CREATININE, SERUM 1.41 mg/dL (0.55-1.02); POTASSIUM 3.7 mmol/L (3.5-5.1)
--- NOTE | 2024-05-25 20:30 | NUR ---
ASSESSMENT AND VITAL SIGNS DONE. SCHEDULED MEDS ADMINISTERED. IV ASSESSED, WNL. pt REQUESTS A SNACK. THIS RN DICUSSED A PLAN TO PROVIDE A SNACK FOR LATER. REYNOLDS CARE DONE. pt DENIES ANY OTHER NEEDS AT THIS TIME. CALL LIGHT WITHIN REACH.
[2024-05-25] MEDS ORDERED: levoFLOXacin 750 MG PIGGYBACK IV SCH (21:00)
[2024-05-26] VITALS (9 sets, daily range): BP systolic 137–166; BP diastolic 60–70
--- NOTE | 2024-05-26 00:43 | NUR ---
pt UP TO THE BSC. pt HAD AN EXTRA LARGE BM. PRN MEDS ADMINISTERED. pt DENIES ANY NEEDS AT THIS TIME. CALL LIGHT WITHIN REACH.
--- NOTE | 2024-05-26 02:06 | NUR ---
pt CALLED TO USE THE BSC. pt 1PA. pt HAD A LARGE BM X2. WATER REFRESHED. CALL LIGHT WITHIN REACH. pt BACK TO BED. SCD'S ON. pt DENIES ANY OTHER NEEDS AT THIS TIME.
--- NOTE | 2024-05-26 06:23 | NUR ---
NIGHT SHIFT SUPERVISOR AND RN OBTAINED VITALS AND I&O. REYNOLDS BAG EMPTIED. PT STATES NO NEEDS AT THIS TIME. CALL LIGHT WITHIN REACH.
[2024-05-26 06:27] LABS: PH, VENOUS 7.413 (7.31-7.41)
[2024-05-26 06:28] LABS: BASOPHILS 0.6 % (0-2); EOSINOPHILS 2.2 % (0-6); HEMATOCRIT 30.6 % (35.0-50.0); HEMOGLOBIN 10.6 g/dL (12.0-18.0); MCH 32.1 (27-36); MCHC 34.6 g/dl (30-36); MCV 92.8 fl (81-99); MONOCYTES 10.3 % (0-12); NEUTROPHILS 66.9 % (39-80); PLATELET COUNT 50 K/uL (140-440); RBC 3.29 M/ul (4.3-5.7); RDW 17.2 (10.5-15.0)
--- NOTE | 2024-05-26 06:28 | NUR ---
IN RM TO DO pt VITAL SIGNS. pt FINALLY RESTING AFTER BEING UP MOST OF THE NIGHT. NO OTHER NEEDS AT THIS TIME. CALL LIGHT WITHIN REACH.
[2024-05-26 06:45] LABS: ALBUMIN 2.2 g/dL (3.4-5.0); ANION GAP 13.6 (7-21); BUN/CREATININE RATIO 17.42 (6.0-28.6); CREATININE, SERUM 1.32 mg/dL (0.55-1.02); POTASSIUM 3.6 mmol/L (3.5-5.1); PROTEIN, TOTAL 4.4 g/dL (6.4-8.2)
--- NOTE | 2024-05-26 07:40 | NUR ---
RECIEVED SHIFT REPORT FROM FREYA LYNN. PT IS RESTING IN BED, EYES CLOSED, BREATHING EVEN AND UNLABORED. CALL LIGHT IN REACH.
--- NOTE | 2024-05-26 08:53 | NUR ---
BLOOD SUGAR CHECKED AND REPORTED TO RN BRINA. PATIENT IS SITTING UP IN THEIR CHAIR FOR BREAKFAST. MORE ICE WATER AND HOT TEA GIVEN. RN IN ROOM WITH PATIENT. CALL LIGHT AND PERSONAL ITEMS ARE WITHIN REACH.
--- NOTE | 2024-05-26 09:04 | NUR ---
MORNING ASSESSMENT COMPLETE. PT IS ALERT AND ORIENTED IN ROOM, IN RECLINER EATING BREAKFAST. DENIES NEEDS. CALL LIGHT IN REACH
--- NOTE | 2024-05-26 10:04 | NUR ---
VISITED DURING SPIRITUAL CARE ROUNDS. PT IN OVERALL GOOD SPIRITS, EXPRESSED ANTICIPATION OF DISCHARGE TO FACILITY IN [facility], INDICATED HOPEFUL ANTICIPATION, REQUESTED FORM COVERER VISIT. BEDSPREAD FOLDER PROVIDED SUPPORTIVE PRESENCE, HOSPITALITY, PRAYER, FACILITATED INTERACTION WITH THERAPY ANIMAL. PT EXPRESSED GRATITUDE.
--- NOTE | 2024-05-26 10:39 | NUR ---
PT REQUESTING NAUSEA MEDICATION, ADMINSTERED (PER EMAR). PT REQUESTED TO TALK TO DOCTOR ABOUT METLATONIN TO HELP PT SLEEP. WILL TALK TO ESVIN WHEN ROUNDING.
--- NOTE | 2024-05-26 11:37 | NUR ---
Spoke with Liv. She is starting to feel much better. Remembers our conversation from yesterday. Wants to go to [facility] on dc. States her sister Yessy will pick her up and drive her. I was notified by Kim at [facility] they could take her today or tomorrow.
[2024-05-26] MEDS ORDERED: CEFTRIAXONE SODIUM 2 GM VIAL ONE ×2 (15:37→15:47)
--- NOTE | 2024-05-26 17:52 | NUR ---
PT GIVEN PRN LACTULOSE DUE TO ONLY HAVING ONE BM THIS SHIFT. PT REPORTS BEING TIRED FROM NOT SLEEPING LAST NIGHT. PT BACK IN BED, FROM EATING DINNER IN RECLINER. DENIES NEEDS. CALL LIGHT IN REACH.
[2024-05-26] MEDS ORDERED: MELATONIN 3 MG TAB PO PRN (18:00)
--- NOTE | 2024-05-26 19:26 | NUR ---
RECEIVED REPORT FROM BRINA RN. PT RESTING IN BED, REQUESTING PRN MELATONIN W/ HS MEDS. DIET MARIA DE JESUS RODRIGUEZ GIVEN PER REQUEST.
--- NOTE | 2024-05-26 20:30 | NUR ---
PT SLEEPING UPON ENTERING ROOM, AWAKENS EASILY. PT IS DROWSY BUT COOPERATIVE. ORIENTED X 3 BUT FORGETFUL. DENIES PAIN. LSC DIM TO BASES. HRR. BTA. LBM TODAY. REYNOLDS CATH IN PLACE-UO CLEAR AND YELLOW. TASHA IV INFUSING LR @ 100MLS/HR. BG 128, NO SLIDING SCALE NEEDED. SCHEDULED LACTULOSE GIVEN FOR HS. CALL LIGHT WITHIN REACH.
--- NOTE | 2024-05-26 21:35 | NUR ---
LANDSCAPER HELPER OBTAINED VITALS AND I&O. REYNOLDS BAG EMPTIED AND REYNOLDS CARE COMPLETED. PT STATES NO FURTHER NEEDS AT THIS TIME. CALL LIGHT WITHIN REACH.
--- NOTE | 2024-05-26 22:54 | NUR ---
PT AWAKE, REQUESTING OJ. 1 CUP GIVEN-PT IS ON DIABETIC DIET.
--- NOTE | 2024-05-27 00:47 | NUR ---
BATHROOM LIGHT ANSWERED, pt UP SBA WITH FWW BACK TO BED, HAD LOOSE BM. BED ALARM RESUMED AND CALL LIGHT IN REACH. SCD'S IN PLACE. NO ADDITIONAL NEEDS OR CONCERNS.
--- NOTE | 2024-05-27 01:36 | NUR ---
PT SLEEPING SOUNDLY-APPEARS COMFORTABLE.
--- NOTE | 2024-05-27 03:42 | NUR ---
PT SLEEPING SOUNDLY. SNORING. APPEARS COMFORTABLE.
--- NOTE | 2024-05-27 05:21 | NUR ---
PT AWAKE AND ORIENTED. PLEASANT AND COOPERATIVE. REPORTS HEADACHE THIS AM-PRN TYLENOL ADMINISTERED PER EMAR.
[2024-05-27 05:38] LABS: BASOPHILS 0.4 % (0-2); EOSINOPHILS 1.8 % (0-6); HEMATOCRIT 30.2 % (35.0-50.0); HEMOGLOBIN 10.6 g/dL (12.0-18.0); LYMPHOCYTES 22.5 % (24-44); MCH 32.4 (27-36); MCV 92.6 fl (81-99); MONOCYTES 9.7 % (0-12); NEUTROPHILS 65.6 % (39-80); RBC 3.26 M/ul (4.3-5.7); RDW 17.8 (10.5-15.0)
[2024-05-27 05:43] VITALS: BP 136/58
[2024-05-27 05:43] LABS: PLATELET COUNT 47 K/uL (140-440)
[2024-05-27 05:56] VITALS: BP 136/58
[2024-05-27 05:57] LABS: ALBUMIN/GLOBULIN RATIO 0.87 (1.1-2.4); ANION GAP 13.6 (7-21); BILIRUBIN, TOTAL 1.7 mg/dL (0.2-1.0); BUN/CREATININE RATIO 16.4 (6.0-28.6); CALCIUM 7.9 mg/dL (8.5-10.1); CREATININE, SERUM 1.28 mg/dL (0.55-1.02); POTASSIUM 3.6 mmol/L (3.5-5.1); PROTEIN, TOTAL 4.3 g/dL (6.4-8.2)
--- NOTE | 2024-05-27 06:19 | NUR ---
DR. GOLDBERG NOTIFIED OF CRITICAL PLATELETS VALUE OF 47-NO NEW ORDERS.
--- NOTE | 2024-05-27 07:31 | NUR ---
RECIEVED SHIFT REPORT FROM FREYA LOPEZ. PT AWAKE IN RECLINER, DENIES NEEDS AT THIS TIME. CALL LIGHT IN REACH.
[2024-05-27] MEDS ORDERED: PANTOPRAZOLE SODIUM 40 MG TABEC PO SCH (09:00)
--- NOTE | 2024-05-27 09:00 | NUR ---
PT AWAKE IN MD ELENITA AT BEDSIDE. NO CONCERNS AT THIS TIME. CALL LIGHT IN REACH.
--- NOTE | 2024-05-27 09:15 | NUR ---
Spoke with Liv. She plans on dc to [facility] today. Dr. Cuenca working on orders. I called and spoke with Kim from [facility], they state pt needs to be there no later than 3pm. I called and spoke with pts sister, Yessy. She will get off work between 12:30 and 2 pm. I let her know Liv must be in the building by 3pm. If they are short on time she will take her there directly and then get her belongings tomorrow.
[2024-05-27] MEDS ORDERED: LEVOFLOXAC750 MG/150 PO (09:36)
[2024-05-27 09:37] VITALS: BP 130/56
[2024-05-27] MEDS ORDERED: LEVOFLOXACIN750 MG PO (10:13)
[2024-05-27 10:16] VITALS: BP 130/56
--- NOTE | 2024-05-27 10:25 | NUR ---
Orders, PASRR, POLST form faxed. 3 day emar, dc summary in the envelope to go to Kim at [facility].
--- NOTE | 2024-05-27 10:27 | NUR ---
JO ANNTENT IN BED AT THIS TIME. BUSINESS ASSOCIATE CHARTED REMOVED REYNOLDS AND IV PER RN CJ REQUEST. CALL LIGHT WITHIN REACH, NO FURTHER NEEDS AT THIS TIME.
--- NOTE | 2024-05-27 11:25 | NUR ---
REYNOLDS CATHETER AND IV REMOVED PER CHARGE NURSE FOR DISCHARGE. PATIENT RETURNED TO BED FROM THEIR CHAIR. REQUESTED A DIET MARIA DE JESUS FRIAS. CALL LIGHT AND PERSONAL ITEMS ARE WITHIN REACH.
[2024-05-27 14:06] VITALS: BP 155/69
--- NOTE | 2024-05-27 14:13 | NUR ---
Pt ready for dc. Pts wallet removed from lock box and placed in pts purse at her request. Packet given. FREYA Pyle, working on dc. Sister here and will get car to transport pt.
--- NOTE | 2024-05-27 14:19 | NUR ---
REPORT WAS CALLED TO [facility] - RN TAKING REPORT WAS CELESTE. NO ISSUES/CONCERNS WHEN REPORT HANDED OFF. PT ASSISTED INTO TRUCK, SISTER DRIVING HER TO FACILITY.
== END 2024-05-27 14:10 | DRG 442 ==
LOC: ED 09:31 → MS 11:49
PROVIDERS: Emergency Medicine; ADMIT Family Medicine; ATTEND Family Medicine
DX: K76.82 Hepatic encephalopathy (principal); E87.0 Hyperosmolality and hypernatremia; N17.9 Acute kidney failure, unspecified; N39.0 Urinary tract infection, site not specified; K74.60 Unspecified cirrhosis of liver; D69.6 Thrombocytopenia, unspecified; B95.2 Enterococcus as the cause of diseases classified elsewhere; E11.22 Type 2 diabetes mellitus with diabetic chronic kidney disease; E80.6 Other disorders of bilirubin metabolism; K21.9 Gastro-esophageal reflux disease without esophagitis; F41.1 Generalized anxiety disorder; K72.10 Chronic hepatic failure without coma; F32.A Depression, unspecified; Z66 Do not resuscitate; E78.5 Hyperlipidemia, unspecified; E87.8 Other disorders of electrolyte and fluid balance, not elsewhere classified; J44.9 Chronic obstructive pulmonary disease, unspecified; I12.9 Hypertensive chronic kidney disease with stage 1 through stage 4 chronic kidney disease, or unspecified chronic kidney disease; Z87.19 Personal history of other diseases of the digestive system; Z87.01 Personal history of pneumonia (recurrent); Z87.891 Personal history of nicotine dependence; Z90.49 Acquired absence of other specified parts of digestive tract; Z98.890 Other specified postprocedural states; Z90.89 Acquired absence of other organs; Z79.899 Other long term (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
CPT/HCPCS: 36415; 51702; 51798; 70450; 71045; 80048; 80053; 81001; 82140; 82803; 83735; 84100; 85025; 85060; 85610; 87077; 87088; 87186; 93005; 93010; 99285-25; A9270; G0480; J0696; J0780; J1815; J1956; J2060; J2405; J2470; J3480; J3490; J7030; J7060; J7070; J7121; J7510